=== PATIENT | female | born 1950 | race Caucasian/White ===

== ENCOUNTER 2018-01-25 11:56 | Emergency (ER) | payer MEDICARE, OTHER, SELFPAY ==
[2018-01-25 11:58] VITALS: BP 123/67; PULSE 58; RESP 20; TEMP 35.6; O2SAT 95; BMI 34.9
[2018-01-25 12:02] VITALS: PULSE 61; RESP 14
--- NOTE | 2018-01-25 12:13 | NURSING ---
NO LW OR POA
--- NOTE | 2018-01-25 12:22 | EKG12_ITS ---
Test Reason : DIZZINESS Blood Pressure : / mmHG Vent. Rate : 056 BPM Atrial Rate : 056 BPM P-R Int : 196 ms QRS Dur : 092 ms QT Int : 424 ms P-R-T Axes : 043 052 064 degrees QTc Int : 409 ms Sinus bradycardia Otherwise normal ECG Confirmed by DORIS DURAND, SERINA ([id number]), editor newspaper GREGG LAU ([id number]) on 01/26/2018 2:25:39 PM Referred By: DYAN Confirmed By:SERINA GEORGE MD
--- NOTE | 2018-01-25 12:22 | CT_ITS ---
STUDY: CT BRAIN WITHOUT CONTRAST REASON FOR EXAM: Female, 67 years old. Vertigo, dizziness, weak, nausea. 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 RADIATION DOSAGE (If Supplied By Facility): CTDIvol = ( 44.99 ) mGy, DLP = ( 745.49 ) mGycm TECHNIQUE: Transaxial CT imaging of the brain was performed without administration of intravenous contrast material. Individualized dose optimization techniques were used for this CT. COMPARISON: None. FINDINGS: Normal soft tissue structures. Normal calvarium. Normal size ventricles and extra-axial spaces for the patient's age. Normal white matter tracts of the cerebral hemispheres. Normal basal ganglia and thalami. Normal brainstem. Normal cerebellum. There is no intracranial hemorrhage. There are no findings of an acute ischemic infarction. Normal visualized paranasal sinuses. CT/Brain/Head without Contrast IMPRESSION: No acute intracranial abnormality Electronically Signed: Robinson Menjivar MD at 14:02 EDT Tel , Service support ,
[2018-01-25] MEDS: Meclizine 12.5 MG Tablet 50 MG PO (12:55)
[2018-01-25 13:11] LABS: Absolute Lymphocyte Count 2.15 X10^3/ul (0.83-4.51); Absolute Neutrophil Count 7.3 X10^3/uL (2.0-7.7); Basophil# 0.07 X10^3/uL; Basophil% 0.6 % (0-1); Eosinophil# 0.16 X10^3/uL; Eosinophils% 1.5 % (0-5); Hematocrit 36.3 % (37-47); Hemoglobin 12.4 g/dl (12.0-15.0); Lymphocyte # 2.15 X10^3/ul (4.0); Lymphocyte % 19.9 % (19-41); Mean Corp Hgb Conc 34.2 g/gl (32-36); Mean Corpuscular Hgb 29.5 pg (27.0-32.0); Mean Corpuscular Volume 86.4 fL (81-99); Mean Platelet Vol. 9.2 fl (6.2-12.0); Monocyte# 1.06 X10^3/uL; Monocyte% 9.8 % (0-10); Neutrophil # 7.34 X10^3/uL (2.7-7.7); Neutrophil % 67.9 % (47-70); POSITIVE COUNT NO; POSITIVE DIFFERENTIAL NO; POSITIVE MORPHOLOGY NO; Platelet Count 298 K/mm3 (150-450); RBC Distribution Width SD 40.3 fl (35.1-43.9); White Blood Count 10.8 K/mm3 (4.4-11.0)
[2018-01-25 13:23] LABS: Anion Gap 7 (5-15); BUN 20 mg/dL (7-18); BUN/Creat Ratio 17.7 RATIO (10-20); Calcium,Total 8.6 mg/dL (8.5-10.1); Chloride 98 mmol/L (98-107); Creatinine, Serum 1.13 mg/dL (0.55-1.02); EST Glomerular Filtration Rate 51 mL/min (>60); Est Glom Filt Rate - Afr Amer 61 mL/min (>60); Estimated Creatinine Clearance 35.46 ml/min; Glucose 98 mg/dL (74-106); Potassium 3.7 mmol/L (3.5-5.1); Sodium Level 134 mmol/L (136-145)
[2018-01-25 13:51] VITALS: BP 129/63; BP 138/70; BP 148/86; PULSE 64; PULSE 65; PULSE 71
--- NOTE | 2018-01-25 14:31 | ED.VISSUMM ---
- ER Visit Summary Date of Service: 01/25/18 Chief Complaint: Vertigo History of Present Illness: The patient is a [address] Jason Parker III. She reports that this morning she developed vertigo. She states that she is nauseated with it. She is not diaphoretic. She has not vomited. She denies any ringing or roaring in her ears. No change in her hearing. No ear pain. No slurred speech or double vision. Review of systems: General: No fever, chills, cold sweats. Cardiovascular: No chest pain, palpitations. Respiratory: No cough, shortness of breath, dyspnea on exertion. Gastrointestinal: No abdominal pain, vomiting, diarrhea, melena, or hematochezia. Genitourinary: No dysuria, frequency, hematuria. Skin: No rash. Neuro: No headache, numbness, weakness. Physical Examination: Vitals: Stable. Afebrile. General: Well-nourished and well-developed. Head: Normocephalic atraumatic. Neck: Supple, no lymphadenopathy. No JVD. Nontender. Cardiovascular: Regular rate and rhythm. No murmurs. Respiratory: No respiratory distress. Clear to auscultation bilaterally. Abdominal: Soft, nontender, nondistended, normal bowel sounds. No guarding, rebound, or peritoneal signs. Back: Nontender. Extremities: Nontender, no edema. Skin: Normal color, no rash. Neurologic: Alert and oriented ?3. Cranial nerves II through XII are intact. Normal strength and sensation. Mild nystagmus with gaze to the left. However, this does not give her vertiginous symptoms. Psych: Normal affect. Test Results: T brain is normal. EKG is sinus bradycardia 56 with no acute changes. CBC is marked for hematocrit of 36.3. Chem-7 is more for sodium 134, BUN 20, creatinine 1.13. Emergency Department Course and Treatment: Patient received Zofran by squad on the way in. She is given a dose of Antivert p.o. She had negative orthostatic vital signs. States that her vertigo is resolved and she been able to ambulate without difficulty. Treatment Plan: Patient will be discharged with Zofran and Antivert. Instructed to follow-up with Dr. Jason Parker III in 1-2 days if not improving. Return to the emergency department for any worsening symptoms. Disposition: To home in improved and stable condition. Impression: 1. Vertigo, resolved. This note was generated with [employer] dictation software. It may contain incorrect words, spelling, and punctuation that were not noted in review of the chart prior to signing ED Disposition - Plan for ED Patient: Disposition: Home or Assisted Living Chief Complaint: Dizziness Instructions: ED Dizziness UKO Prescriptions: Ondansetron [Zofran Odt] 4 mg PO Q8H PRN PRN #10 tablet PRN Reason: Nausea Meclizine HCl [Antivert] 25 mg PO 4X/DAY PRN PRN #20 tablet PRN Reason: Dizziness Referrals: Jason Parker III, MD [Primary Care Provider] - 1-2 Days if not improving
[2018-01-25 15:07] VITALS: BP 140/75; PULSE 72; RESP 14; O2SAT 98
== END 2018-01-25 15:11 | disposition home or self-care (01) ==
LOC: ED 13:05
PROVIDERS: Emergency Provider Emergency Medicine; Family Provider Family Medicine; PCP Family Medicine
DX: R42 Dizziness and giddiness (principal); I10 Essential (primary) hypertension; E03.9 Hypothyroidism, unspecified; Z79.82 Long term (current) use of aspirin; Z79.899 Other long term (current) drug therapy
CPT/HCPCS: 70450; 80048; 85025; 93005; 96360; 99285; J7040; A4216; J2405

== ENCOUNTER → 2018-06-05 09:24 | Outpatient (CLI) | payer MEDICARE, OTHER, SELFPAY ==
--- NOTE | 2018-06-05 10:00 | MRI_ITS ---
STUDY: MRI LEFT SHOULDER REASON FOR EXAM: Female, 68 years old. shoulder pain left shoulder,restricted movement, adhesive capsulitis TECHNIQUE: Standardized fat and water weighted pulse sequences were obtained in all 3 orthogonal planes. COMPARISON: None. FINDINGS: There is supraspinatus tendinosis with mild tendon thickening, but without a demonstrated tendon tear. Normal infraspinatus tendon. Normal subscapularis tendon. Normal teres minor tendon. Normal supraspinatus muscle. Normal infraspinatus muscle. Normal subscapularis muscle. Normal teres minor muscle. There is a small volume joint effusion of the glenohumeral joint with a small amount of debris. There is mild glenohumeral osteoarthritis. There is mild thickening of the inferior joint capsule consistent with adhesive capsulitis. There is a cortical erosion at the insertion of the subscapularis tendon. Normal biceps labral complex. Normal intracapsular long biceps tendon. Normal labrum. Normal rotator interval. There is mild osteoarthritis of the acromioclavicular articulation. There is a Type I morphology (flat undersurface), with a neutral orientation. There is no subacromial-subdeltoid bursal fluid. Normal visualized coracohumeral and coracoacromial ligaments. Normal quadrilateral space. Normal axillary space. Normal deltoid muscle. Normal trapezius muscle. MRI/Upper Ext Joint Only(Routine) IMPRESSION: There is mild thickening of the inferior joint capsule consistent with adhesive capsulitis. There is mild glenohumeral osteoarthritis and small joint effusion. There is mild supraspinatus tendinosis. Electronically Signed: Jenelle White MD at 11:51 EDT , Service support ,
== END ==
PROVIDERS: Family Provider Family Medicine; PCP Family Medicine
DX: M25.512 Pain in left shoulder (principal)
CPT/HCPCS: 73221

== ENCOUNTER 2018-07-06 09:03 | Emergency (ER) | payer MEDICARE, OTHER, SELFPAY ==
[2018-07-06 09:03] VITALS: BP 157/68; PULSE 76; RESP 16; TEMP 37; O2SAT 98; BMI 35.1
--- NOTE | 2018-07-06 09:31 | ED.DCSUM_ITS ---
- ER Visit Summary Date of Service: 07/06/18 Chief Complaint: Right-sided abdominal pain History of Present Illness: The patient is a 68 F with a one-week history of right upper quadrant abdominal pain. She denies nausea or vomiting. She denies shortness of breath. Patient states she leaned over a freezer approximately 4 weeks ago and felt a pop in her right lower ribs. Really had not been bothering her much until the past 1 week. Patient has had prior cholecystomy. She is history of diverticulitis, pancreatitis, cyst on her pancreas, hypertension, hypothyroidism. Physical Examination: Blood pressure is 157/68, other vitals normal. Patient sitting upright in bed. She is in no acute distress. Head and neck examination is unremarkable. Heart is regular rate and rhythm. Lung sounds are clear. She has reproducible tenderness in the right lower ribs. There is no crepitus. Abdomen is soft with tenderness in the right upper quadrant. There is no guarding or rebound. Active bowel sounds are noted throughout. Test Results: CBC and chemistry studies normal. LFTs and lipase are normal. Urinalysis is normal. Two-view chest x-ray shows no acute pathology. There is prominent hiatal hernia noted. There is mild anterior wedging of T5 down to T9 which may be related to remote injury. CT flank shows no evidence of bowel obstruction or acute renal pathology. Postcholecystectomy changes noted. Emergency Department Course and Treatment: Patient declines anything for pain here. She is given IV fluids. Test results were discussed with her. She is asking only for some naproxen at home. She will return for worsening symptoms or other concerns. Treatment Plan: [] Disposition: Discharge Impression: Abdominal pain, uncertain etiology This note was generated with [employer] dictation software. It may contain incorrect words, spelling, and punctuation that were not noted in review of the chart prior to signing ED Disposition - Plan for ED Patient: Chief Complaint: Abd Pain Referrals: Jason Parker III, MD [Primary Care Provider] -
[2018-07-06] MEDS: 0.9% Normal Saline 1,000 ML 150 ML IV (09:43)
[2018-07-06 09:58] LABS: Absolute Lymphocyte Count 2.02 X10^3/ul (0.83-4.51); Absolute Neutrophil Count 5.9 X10^3/uL (2.0-7.7); Basophil# 0.08 X10^3/uL; Basophil% 0.9 % (0-1); Eosinophil# 0.28 X10^3/uL; Eosinophils% 3.1 % (0-5); Hemoglobin 13.5 g/dl (12.0-15.0); Lymphocyte # 2.02 X10^3/ul (4.0); Lymphocyte % 22.6 % (19-41); Mean Corp Hgb Conc 32.9 g/gl (32-36); Mean Corpuscular Hgb 28.8 pg (27.0-32.0); Mean Corpuscular Volume 87.6 fL (81-99); Mean Platelet Vol. 9.5 fl (6.2-12.0); Monocyte# 0.64 X10^3/uL; Monocyte% 7.2 % (0-10); Neutrophil # 5.91 X10^3/uL (2.7-7.7); Platelet Count 329 K/mm3 (150-450); RBC Distribution Width CV 13.5 % (11.6-14.6); Red Blood Count 4.68 M/mm3 (4.2-5.4)
[2018-07-06 09:59] LABS: POSITIVE COUNT NO; POSITIVE DIFFERENTIAL NO; POSITIVE MORPHOLOGY NO
[2018-07-06 10:09] LABS: AST(SGOT) 17 U/L (15-37); Alanine Aminotransfer ALT/SGPT 26 U/L (13-56); Albumin, Serum 3.5 g/dL (3.2-5.0); Alkaline Phosphatase 120 U/L (45-117); Anion Gap 9 (5-15); BUN 11 mg/dL (7-18); BUN/Creat Ratio 11.2 RATIO (10-20); Bilirubin, Direct 0.08 mg/dL (0.00-0.30); Calcium,Total 8.5 mg/dL (8.5-10.1); Chloride 103 mmol/L (98-107); Creatinine, Serum 0.98 mg/dL (0.55-1.02); EST Glomerular Filtration Rate 60 mL/min (>60); Est Glom Filt Rate - Afr Amer 72 mL/min (>60); Estimated Creatinine Clearance 40.31 ml/min; Glucose 94 mg/dL (74-106); Lipase 136 U/L (73-393); Potassium 4.1 mmol/L (3.5-5.1); Protein, Total 7.5 g/dL (6.4-8.2); Sodium Level 139 mmol/L (136-145)
[2018-07-06 10:51] LABS: Bacteria 0 SEEN /hpf (None Seen); Mucous, Urine 0 SEEN /hpf (<or=2+); Red Blood Cells-Urine 0 SEEN /hpf (0-5)
[2018-07-06 10:52] LABS: Color, Urine Straw (Yellow); Glucose, Dipstick Normal (Normal); Ketone-Dipstick Negative (Negative); Leukocyte Esterase-Dipstick 500 /ul (Negative); Nitrite-Dipstick Negative (Negative); Occult Blood-Urine Negative /ul (Negative); Protein-Dipstick Negative (Negative); Specific Gravity, Urine 1.005 (1.002-1.030); Urine Bilirubin Dipstick Negative (Negative); Urine Clarity Clear (Clear); Urine Urobilinogen Normal (Normal)
[2018-07-06 11:02] LABS: Squamous Epithelial Cells - UA 0-5 SEEN /hpf (5-10); White Blood Cells 0-5 SEEN /hpf (0-5)
--- NOTE | 2018-07-06 12:23 | ED.DEP ---
ED Disposition - Plan for ED Patient: Disposition: Home or Assisted Living Chief Complaint: Abd Pain Instructions: ED Abdominal Pain Unkn Cause Prescriptions: Naproxen [Naprosyn] 500 mg PO BID PRN PRN #20 tablet PRN Reason: Pain Referrals: Jason Parker III, MD [Primary Care Provider] - 1-2 Weeks
[2018-07-06 12:41] VITALS: BP 134/73; PULSE 69; RESP 18; O2SAT 96
== END 2018-07-06 12:42 | disposition home or self-care (01) ==
PROVIDERS: Emergency Provider Emergency Medicine; Family Provider Family Medicine; PCP Family Medicine
DX: R10.11 Right upper quadrant pain (principal); I10 Essential (primary) hypertension; E03.9 Hypothyroidism, unspecified; K57.90 Diverticulosis of intestine, part unspecified, without perforation or abscess without bleeding; K86.2 Cyst of pancreas; Z79.82 Long term (current) use of aspirin; Z79.899 Other long term (current) drug therapy
CPT/HCPCS: 71046; 74176; 80048; 80076; 81001; 83690; 85025; 96360; 96361; 99283; J7030; A4216

== ENCOUNTER 2018-10-07 12:04 | Emergency (ER) | payer MEDICARE, OTHER, SELFPAY ==
[2018-10-07 12:05] VITALS: BP 137/75; PULSE 71; RESP 16; TEMP 36.7; O2SAT 96; BMI 34.4
--- NOTE | 2018-10-07 12:19 | CT_ITS ---
STUDY: CT ABDOMEN AND PELVIS WITH CONTRAST REASON FOR EXAM: Female, 68 years old. Lower quadrant pain and history of diverticulitis nausea and diarrhea hypertension pancreatitis CHF GERD previous cholecystectomy tubal ligation. RADIATION DOSAGE (If Supplied By Facility): CTDIvol = ( 18.24 ) mGy, DLP = ( 1150.90 ) mGycm TECHNIQUE: Transaxial images were obtained from the dome of the diaphragm to the symphysis pubis without oral contrast. 100 ml of Isovue 300 contrast was administered. Sagittal and coronal images were reconstructed. Individualized dose optimization techniques were used for this CT. COMPARISON: July 06, 2018 CT scan abdomen and pelvis FINDINGS: There is a right middle lobe nodule measuring 4.5 mm not definitively seen on the prior study. The visualized portions of the heart are within normal limits. There is decreased attenuation of the liver consistent with steatosis. In the medial aspect of the right hepatic lobe there is a stable focus of minimal low attenuation probable fatty infiltration. There is a focus of calcification as well. There is a low attenuation measures 6.8 and 7.4 mm respectively stable since prior study. There are surgical clips in the gallbladder fossa consistent with a prior cholecystectomy. There are multiple benign calcified granulomata of the spleen. Normal pancreas. Normal bilateral adrenal glands. Normal right kidney. Normal left kidney. There is a 6.0 x 6.4 cm I do hernia demonstrated stable since prior study. Normal small intestine. There is a [id number] amount of stool in the colon. There are diverticula present. Within the distal descending colon there is a 5.7 cm segment of inflammatory change which appears to be centered around a diverticulum within the distal descending colon. The appendix is visualized and appears normal. Normal abdominal aorta. Normal inferior vena cava. Normal retroperitoneum. There is calcification of the bilateral common iliac arteries. Normal urinary bladder. There is atrophy of the uterus. Normal abdominal wall. There are diffuse degenerative changes of the visualized lumbar spine. CT/Abdomen/Pelvis W IV Cont ONLY IMPRESSION: Acute diverticulitis over a 5.7 cm segment of the distal descending colon without evidence of abscess formation or pneumoperitoneum. Hepatic steatosis, stable mild inhomogeneity towards the lower aspect of the right hepatic lobe. Status post cholecystectomy. Evidence of a granulomatous disease. 4.5 mm nodular density right middle lobe for which a follow-up CT scan of the chest is recommended when appropriate. Electronically Signed: Richelle Romero MD at 14:33 EST Tel , Service support ,
--- NOTE | 2018-10-07 12:22 | ED.VISSUMM ---
- ER Visit Summary Date of Service: 10/07/18 Chief Complaint: Left lower quadrant abdominal pain. History of Present Illness: The patient is a 68 F history of diverticulitis in the past, hypertension and valvular heart disease. Prior cholecystectomy and tubal ligation. Patient states 1-1/2 weeks of left lower quadrant abdominal pain. She had some leftover amoxicillin at home and she has been taken 1 pill twice a day for the last 3 days and is noticing some improvement. She denies any vomiting. She did have diarrhea. She denies any constipation or melena. No fever. No dysuria. She denies any abdominal trauma. Physical Examination: Older female no acute distress. Vital signs are stable and afebrile. H EENT exam unremarkable. Neck nontender. Lungs clear to auscultation bilaterally. Heart regular rate and rhythm. Abdomen soft. Nondistended normal bowel sounds. She has mild tenderness in the left lower quadrant. No hernias or masses. Both the right upper right lower quadrant unremarkable. No signs of obstruction. No pulsatile mass. Patient moving all 4 extremities. Neurovascular intact. Neurologically she is awake and alert with no focal motor deficits. Back exam is nontender. Test Results: CBC normal white count of 9 hemoglobin at 12. No bands. Chemistries normal normal creatinine and gap. UA normal no signs of infection. CT abdomen pelvis with IV contrast only showed a five-point centimeter segment of the distal descending colon with acute diverticulitis. No perforation. No abscess. Read by the radiologist and reviewed by me. Emergency Department Course and Treatment: Patient's exam and history consistent with possible diverticulitis. Currently she does not want anything for pain or nausea. Higher to the CT she will receive a liter of normal saline. Treatment Plan: Repeat exam the patient is doing well at 15:07 PM. We discussed treatment options. She placed on Augmentin 875 twice daily for 10 days 20 no refill and follow-up with her primary care physician Dr. Jason Parker iii. She also be given a prescription for one Diflucan pill to take after she is done with the Augmentin because it causes her to get yeast infections. Disposition: Discharge Impression: Acute left lower quadrant abdominal pain secondary to acute left descending colon diverticulitis This note was generated with [employer] dictation software. It may contain incorrect words, spelling, and punctuation that were not noted in review of the chart prior to signing ED Disposition - Plan for ED Patient: Chief Complaint: Abd Pain Referrals: Jason Parker III, MD [Primary Care Provider] -
[2018-10-07] MEDS: 0.9% Normal Saline 1,000 ML 1000 ML IV (12:43)
[2018-10-07 12:49] LABS: Bacteria 0 SEEN /hpf (None Seen); Mucous, Urine 0 SEEN /hpf (<or=2+); Red Blood Cells-Urine 0 SEEN /hpf (0-5); White Blood Cells 0 SEEN /hpf (0-5)
[2018-10-07 12:51] LABS: Absolute Lymphocyte Count 2.23 X10^3/ul (0.83-4.51); Absolute Neutrophil Count 6.2 X10^3/uL (2.0-7.7); Basophil# 0.08 X10^3/uL; Basophil% 0.8 % (0-1); Eosinophil# 0.28 X10^3/uL; Eosinophils% 2.9 % (0-5); Hematocrit 37.9 % (37-47); Hemoglobin 12.4 g/dl (12.0-15.0); Lymphocyte # 2.23 X10^3/ul (4.0); Lymphocyte % 23.4 % (19-41); Mean Corp Hgb Conc 32.7 g/gl (32-36); Mean Corpuscular Hgb 28.6 pg (27.0-32.0); Mean Corpuscular Volume 87.5 fL (81-99); Mean Platelet Vol. 9.8 fl (6.2-12.0); Monocyte# 0.73 X10^3/uL; Monocyte% 7.7 % (0-10); Neutrophil # 6.19 X10^3/uL (2.7-7.7); Platelet Count 307 K/mm3 (150-450); RBC Distribution Width CV 13.4 % (11.6-14.6); RBC Distribution Width SD 42.6 fl (35.1-43.9); Red Blood Count 4.33 M/mm3 (4.2-5.4); White Blood Count 9.5 K/mm3 (4.4-11.0)
[2018-10-07 12:52] LABS: POSITIVE COUNT NO; POSITIVE DIFFERENTIAL NO; POSITIVE MORPHOLOGY NO
[2018-10-07 12:53] LABS: Color, Urine Yellow (Yellow); Glucose, Dipstick Normal (Normal); Ketone-Dipstick Negative (Negative); Leukocyte Esterase-Dipstick 100 /ul (Negative); Nitrite-Dipstick Negative (Negative); Occult Blood-Urine Negative /ul (Negative); Protein-Dipstick Negative (Negative); Specific Gravity, Urine 1.005 (1.002-1.030); Urine Bilirubin Dipstick Negative (Negative); Urine Clarity Clear (Clear); Urine Urobilinogen Normal (Normal)
[2018-10-07 13:00] LABS: Squamous Epithelial Cells - UA 0-5 SEEN /hpf (5-10)
[2018-10-07 13:03] LABS: Anion Gap 8 (5-15); BUN 15 mg/dL (7-18); Chloride 101 mmol/L (98-107); Creatinine, Serum 1.07 mg/dL (0.55-1.02); EST Glomerular Filtration Rate 54 mL/min (>60); Est Glom Filt Rate - Afr Amer 65 mL/min (>60); Estimated Creatinine Clearance 36.92 ml/min; Glucose 88 mg/dL (74-106); Potassium 4.4 mmol/L (3.5-5.1); Sodium Level 136 mmol/L (136-145)
--- NOTE | 2018-10-07 15:21 | ED.DEP ---
ED Disposition - Plan for ED Patient: Disposition: Home or Assisted Living Chief Complaint: Abd Pain Instructions: ED Diverticulitis Prescriptions: Amox/Clavulanate Tablet [Augmentin Tablet] 875 mg PO Q12H #20 tab Fluconazole [Diflucan] 200 mg PO DAILY #1 tab Referrals: Jason Parker III, MD [Primary Care Provider] - 3-5 Days Additional Instructions: Augmentin 1 pill twice a day for 10 days. Follow-up with Dr. Jason Parker sometimes after you keep you on antibiotics longer than 10 days. Tylenol and Motrin for pain.
[2018-10-07] MEDS: Amox/Clavulanate 875 MG Tablet PO (15:30)
[2018-10-07 15:31] VITALS: BP 148/68; PULSE 72; RESP 16; O2SAT 98
--- OUTSIDE RECORDS SUMMARY | 2018-11-30 23:26 | XMS RPT_ITS ---
:1950 Author Organization OHIP Care Team Providers Name Role Phone Cebul III, Erma Primary Care Unavailable Jono Trevino Attending Unavailable JAMIE CHAPMAN Attending Unavailable JAMIE CHAPMAN Referring Unavailable Cebul III, Erma Primary Care Unavailable JAMIE CHAPMAN Consulting Unavailable Cebul III, Erma Primary Care Unavailable Cyndi Carlos Attending Unavailable Cebul III, Erma Primary Care Unavailable Jordy Matute Attending Unavailable JJ ZHANG (HAIR OR BEAUTY SALON ASSISTANT) Attending Unavailable CEBUL III, ERMA A Attending Unavailable CEBUL III, ERMA A Referring Unavailable CEBUL III, ERMA A Referring Unavailable VAISHNAVI FERREIRA (EXPLOSIVE OPERATOR SUPERVISOR) Referring Unavailable CEBUL III, ERMA A Attending Unavailable CEBUL III, ERMA A Referring Unavailable RAYMON GUIDRY (PT) Attending Unavailable CEBUL III, ERMA A Referring Unavailable CEBUL III, ERMA A Referring Unavailable CEBUL III, ERMA A Referring Unavailable CHON BANKS Attending Unavailable CHON BANKS Referring Unavailable RAYMON GUIDRY (PT) Attending Unavailable CEBUL III, ERMA A Referring Unavailable RAYMON GUIDRY (PT) Attending Unavailable CEBUL III, ERMA A Referring Unavailable CEBUL III, ERMA A Attending Unavailable CODY PONCE Attending Unavailable CHON BANKS Attending Unavailable CHON BANKS Referring Unavailable CHON BANKS Attending Unavailable CHON BANKS Referring Unavailable ERMA PARKER Primary Care Unavailable CHON BANKS Attending Unavailable CHON BANKS Referring Unavailable ERMA PARKER Primary Care Unavailable PROBLEMS PROBLEMS DATE TYPE CONDITION / CODE ATTENDING STATUS SOURCE 09/05/2018 Active Encounter for NA Active [place] screening [facility] Main mammogram for [place] malignant neoplasm Repository of breast / Z12.31(ICD-10) 03/28/2018 Active Age-related NA Active [place] osteoporosis [facility] Main without current [place] pathological Repository fracture / M81.0(ICD-10) 03/22/2018 Active Other nursing home NA Active [place] (current) drug Clinic Main therapy / [place] Z79.899(ICD-10) Repository 03/22/2018 Active Cramp and spasm / NA [facility] R25.2(ICD-10) Clinic Main [place] Repository 01/08/2018 Active Chest pain, CHON BANKS Active [place] unspecified / E Clinic Other R07.9(ICD-10) [place] Repository 01/08/2018 Active Essential CHON BANKS Active [place] (primary) E Clinic Other hypertension / [place] I10(ICD-10) Repository 01/08/2018 Admitting Unknown / CHON BANKS Active [facility]Unknown[facility] Repository PROCEDURES PROCEDURES No Procedure Records FoundRESULTS RESULTS PROGRESS Observed: 10/19/2018 Status: COMPLETED Source: [place] 1:00 PM [facility] REPOSITORY HNO ID: [id number] Author: Cody Ponce Service: (none) Author Type: Physician Type: Progress Notes Filed: 10/19/2018 1:11 PM Note Text: Patient presents with: Derm Problem HPI: Patient presents today for office visit for follow up. Nursing Notes: Rachel Mcgraw Ma 10/19/2018 12:54 PM Unsigned DERM: Pt c/o of raw bottom after treatment for diverticulitis. For the last 3 days she has pain in buttock by the rectum. She has used preparation H, wet wipes(she makes sure she is dry afterwards), and A and D ointment. Also pt c/o itchy rectum at night only. Was being treated for diverticulitis. Had been to [facility] ER and placed on augmentin. Gave her diflucan. She is extremely sore. Spann to urinate. No changes in soaps or detergents. No abd pain. Bowels are formed now. No fever or chills. MEDICATIONS: Current Outpatient Prescriptions: amLODIPine (NORVASC) 5 mg tablet Take 1 tablet by mouth once daily. aspirin, enteric coated (ASPIRIN, ENTERIC COATED) 81 mg EC tablet Take 81 mg by mouth once daily. Biotin 2,500 mcg cap Take 1 capsule by mouth once daily. furosemide (LASIX) 40 mg tablet TAKE ONE-HALF TABLET BY MOUTH TWICE DAILY gabapentin (NEURONTIN) 300 mg capsule Take 1 capsule by mouth daily at bedtime for 90 days. isosorbide mononitrate ER (IMDUR) 30 mg 24 hr tablet Take 0.5 tablets by mouth once daily. labetalol (TRANDATE) 100 mg tablet Take 1 tablet by mouth twice daily. lactobacillus rhamnosus-Inulin (CULTURELLE PROBIOTICS) 10 billion cell -245 mg cpSP Take by mouth once daily. levothyroxine (SYNTHROID) 88 mcg tablet Take 1 tablet by mouth once daily. losartan (COZAAR) 100 mg tablet Take 1 tablet by mouth once daily. naproxen (NAPROSYN) 500 mg tablet Take 1 tablet by mouth twice daily as needed. Take with food. pantoprazole DR (PROTONIX) 40 mg tablet Take 1 tablet by mouth once daily. Take on empty stomach, 1/2 hr before meal. potassium chloride ER (K-DUR, KLOR-CON) 20 mEq tablet Take 1 tablet by mouth four times daily. alendronate (BINOSTO) 70 mg tbef 70 mg by mouth weekly, taken with full glass of water 30 min before first food/drink/med; avoid lying down for 30 min afterwards No current facility-administered medications for this visit. ALLERGIES: ALLERGIES Allergen Reactions - Codeine Intolerance Chest pain - Aceon [Perindopril * Rash, Cough - Beta Blockers [Othe* Cough dry hacking cough - Hctz [Other] Rash - Imdur [Isosorbide] Other: See Comments headaches - Lipitor [Atorvastat* Other: See Comments muscle cramps - Lisinopril Cough dry hacking cough - Spironolactone Other: See Comments headache PAST MEDICAL HISTORY Diagnosis Date - Contact dermatitis and other eczema - Degenerative arthritis of knee 05/24/2011 - Delayed gastric emptying 07/24/2012 - Diarrhea - Diverticulosis of colon (without mention of hemorrhage) Diverticulosis - Essential hypertension, benign - Hypokalemia 09/25/2012 - Impaired fasting glucose 11/19/2015 - Inadequate pelvic muscles 01/17/2012 - Lumbar disc disease with radiculopathy 09/01/2016 - Lung nodule < 6cm on CT 10/15/2018 10/07/18: incidental 4.5 mm nodule RML - thyrotoxicosis - Other osteoporosis 12/21/06 - Personal history of colonic polyps Colon polyps - Tethering of spinal cord (HCC) 2014 - Trigeminal neuralgia 10/11/2011 - Trochanteric bursitis of left hip 07/24/2012 - Unspecified hemorrhoids without mention of complication Hemorrhoids PAST SURGICAL HISTORY Procedure Laterality Date - COLONOSCOP W/ OR W/O BRSH SPEC Colonoscopy - COLONOSCOP W/ OR W/O BRSH SPEC 07/13/07 Lax colon - COLONOSCOP W/ OR W/O BRSH SPEC 03/26/14 Colonoscopy - DECOMPRESSION PLANTAR DIGITAL NERVE 2000 heel spur/ plantar fasciitis repair Rt - EGD W/O BRSH SPECIMEN W/BX 07/13/07 Gastritis, fundic gland polyps - EGD W/O OR W/BRUSH/WASH 03/26/14 EGD - LAPAROSCOPIC CHOLEYCYSTECTOMY Cholecystectomy, lap - LIGATE FALLOPIAN TUBE - REPAIR ROTATOR CUFF,ACUTE 1992 Rotator cuff repair, right - REVISE MEDIAN N/CARPAL TUNNEL SURG Carpal tunnel decomp bilateral - STRESS TEST,COMPLETE_*FL FAMILY HISTORY Problem Relation Age of Onset - Diabetes Mother - Heart Mother - Stroke Mother - Hypertension Mother - Hypertension Sister - Heart Sister - Hypertension Sister - Heart Sister - Hypertension Brother - Heart Brother - Hypertension Brother - Cancer Brother - Breast Cancer Maternal Aunt - Cancer Paternal Grandfather skin Social History Marital status: Spouse name: Morris Years of education: 10 Number of children: 2 Occupational History Occupation Employer Comment 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 Spouse was smoker in home for 39 years. Father smoked in childhood home. Alcohol use: No Drug use: No Sexual activity: No Comment: Tubal Ligation, Postmenopausal Other Topics Concern Sleep Concern Yes Stress Concern Yes Reviewed current medications, allergies, past medical history, surgical history, family history and social history today. REVIEW OF SYSTEMS All other reviewed and negative other than HPI. HEALTH MAINTENANCE: Reviewed health maintenance issues today and recommended the following in detail. DTAP,TDAP,TD(1 - Tdap) due on 1967 VITALS: BP 120/64 Pulse 64 Resp 16 Wt 82.6 kg (182 lb) BMI 34.39 kg/m? Last 4 Encounter Wt Readings: Date: Wt: 10/19/2018 82.6 kg (182 lb) 10/15/2018 83 kg (183 lb) 09/10/2018 83.6 kg (184 lb 6.4 oz) 07/12/2018 83 kg (183 lb) PHYSICAL EXAMINATION: General appearance: Well appearing, alert, in no acute distress, well-hydrated, well nourished. Skin: Skin color, texture, turgor normal, no suspicious rashes or lesions Lungs: lungs clear to auscultation. No wheezing, rhonchi, rales Heart: RRR without murmur, gallop, or rubs. No ectopy Abdomen: Normal abdominal exam, Abdomen soft, non-tender. Bowel sounds normal. No masses, organomegaly Extremities: No deformities, edema, skin discoloration, clubbing or cyanosis. Good capillary refill. Rectal: perineum examined with hydrographical technical officer. Has marked erythema throughout. Some slightly open areas. ASSESSMENT/PLAN: 1. Dermatitis - ICD9: 692.9, ICD10: L30.9 - discussed skin care of rash - follow up if symptoms persist or worsen. - Start with below. Red flags for re-assessment reviewed with patient in detail. - Call if symptoms worsen at all or if not better in one to two weeks - NYSTATIN-TRIAMCINOLONE 100,000 UNIT/G-0.1 % TOPICAL CREAM Cody Ponce MD CNOV Observed: 10/19/2018 Status: COMPLETED Source: [place] 12:40 PM [facility] REPOSITORY Office Visit (FAMPWS) ALBERTO STRICKLAND ([id number]) 1950 F Date Time Provider Department 10/19/18 12:40 PM CODY PONCE During your visit today, we recorded the following information about you: Pulse Respiration Blood pressure Weight 64/minute 16/minute 120/64 82.6 kg Rachel Mcgraw Dee 10/19/2018 1:02 PM Signed DERM: Pt c/o of raw bottom after treatment for diverticulitis. For the last 3 days she has pain in buttock by the rectum. She has used preparation H, wet wipes(she makes sure she is dry afterwards), and A and D ointment. Also pt c/o itchy rectum at night only. Cody Ponce MD 10/19/2018 1:11 PM Signed Patient presents with: Derm Problem HPI: Patient presents today for office visit for follow up. Nursing Notes: Rachel Mcgraw Dee 10/19/2018 12:54 PM Unsigned DERM: Pt c/o of raw bottom after treatment for diverticulitis. For the last 3 days she has pain in buttock by the rectum. She has used preparation H, wet wipes(she makes sure she is dry afterwards), and A and D ointment. Also pt c/o itchy rectum at night only. Was being treated for diverticulitis. Had been to [facility] ER and placed on augmentin. Gave her diflucan. She is extremely sore. Spann to urinate. No changes in soaps or detergents. No abd pain. Bowels are formed now. No fever or chills. MEDICATIONS: Current Outpatient Prescriptions: amLODIPine (NORVASC) 5 mg tablet Take 1 tablet by mouth once daily. aspirin, enteric coated (ASPIRIN, ENTERIC COATED) 81 mg EC tablet Take 81 mg by mouth once daily. Biotin 2,500 mcg cap Take 1 capsule by mouth once daily. furosemide (LASIX) 40 mg tablet TAKE ONE-HALF TABLET BY MOUTH TWICE DAILY gabapentin (NEURONTIN) 300 mg capsule Take 1 capsule by mouth daily at bedtime for 90 days. isosorbide mononitrate ER (IMDUR) 30 mg 24 hr tablet Take 0.5 tablets by mouth once daily. labetalol (TRANDATE) 100 mg tablet Take 1 tablet by mouth twice daily. lactobacillus rhamnosus-Inulin (CULTURELLE PROBIOTICS) 10 billion cell -245 mg cpSP Take by mouth once daily. levothyroxine (SYNTHROID) 88 mcg tablet Take 1 tablet by mouth once daily. losartan (COZAAR) 100 mg tablet Take 1 tablet by mouth once daily. naproxen (NAPROSYN) 500 mg tablet Take 1 tablet by mouth twice daily as needed. Take with food. pantoprazole DR (PROTONIX) 40 mg tablet Take 1 tablet by mouth once daily. Take on empty stomach, 1/2 hr before meal. potassium chloride ER (K-DUR, KLOR-CON) 20 mEq tablet Take 1 tablet by mouth four times daily. alendronate (BINOSTO) 70 mg tbef 70 mg by mouth weekly, taken with full glass of water 30 min before first food/drink/med; avoid lying down for 30 min afterwards No current facility-administered medications for this visit. ALLERGIES: ALLERGIES Allergen Reactions - Codeine Intolerance Chest pain - Aceon [Perindopril * Rash, Cough - Beta Blockers [Othe* Cough dry hacking cough - Hctz [Other] Rash - Imdur [Isosorbide] Other: See Comments headaches - Lipitor [Atorvastat* Other: See Comments muscle cramps - Lisinopril Cough dry hacking cough - Spironolactone Other: See Comments headache PAST MEDICAL HISTORY Diagnosis Date - Contact dermatitis and other eczema - Degenerative arthritis of knee 05/24/2011 - Delayed gastric emptying 07/24/2012 - Diarrhea - Diverticulosis of colon (without mention of hemorrhage) Diverticulosis - Essential hypertension, benign - Hypokalemia 09/25/2012 - Impaired fasting glucose 11/19/2015 - Inadequate pelvic muscles 01/17/2012 - Lumbar disc disease with radiculopathy 09/01/2016 - Lung nodule < 6cm on CT 10/15/2018 10/07/18: incidental 4.5 mm nodule RML - thyrotoxicosis - Other osteoporosis 12/21/06 - Personal history of colonic polyps Colon polyps - Tethering of spinal cord (HCC) 2014 - Trigeminal neuralgia 10/11/2011 - Trochanteric bursitis of left hip 07/24/2012 - Unspecified hemorrhoids without mention of complication Hemorrhoids PAST SURGICAL HISTORY Procedure Laterality Date - COLONOSCOP W/ OR W/O BRSH SPEC Colonoscopy - COLONOSCOP W/ OR W/O BRSH SPEC 07/13/07 Lax colon - COLONOSCOP W/ OR W/O BRSH SPEC 03/26/14 Colonoscopy - DECOMPRESSION PLANTAR DIGITAL NERVE 1999 heel spur/ plantar fasciitis repair Rt - EGD W/O BRSH SPECIMEN W/BX 07/13/07 Gastritis, fundic gland polyps - EGD W/O OR W/BRUSH/WASH 03/26/14 EGD - LAPAROSCOPIC CHOLEYCYSTECTOMY Cholecystectomy, lap - LIGATE FALLOPIAN TUBE - REPAIR ROTATOR CUFF,ACUTE 1991 Rotator cuff repair, right - REVISE MEDIAN N/CARPAL TUNNEL SURG Carpal tunnel decomp bilateral - STRESS TEST,COMPLETE_*FL FAMILY HISTORY Problem Relation Age of Onset - Diabetes Mother - Heart Mother - Stroke Mother - Hypertension Mother - Hypertension Sister - Heart Sister - Hypertension Sister - Heart Sister - Hypertension Brother - Heart Brother - Hypertension Brother - Cancer Brother - Breast Cancer Maternal Aunt - Cancer Paternal Grandfather skin Social History Marital status: Spouse name: Morris Years of education: 10 Number of children: 2 Occupational History Occupation Employer 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 Spouse was smoker in home for 39 years. Father smoked in childhood home. Alcohol use: No Drug use: No Sexual activity: No Comment: Tubal Ligation, Postmenopausal Other Topics Concern Sleep Concern Yes Stress Concern Yes Reviewed current medications, allergies, past medical history, surgical history, family history and social history today. REVIEW OF SYSTEMS All other reviewed and negative other than HPI. HEALTH MAINTENANCE: Reviewed health maintenance issues today and recommended the following in detail. DTAP,TDAP,TD(1 - Tdap) due on 1967 VITALS: BP 120/64 Pulse 64 Resp 16 Wt 82.6 kg (182 lb) BMI 34.39 kg/m? Last 4 Encounter Wt Readings: Date: Wt: 10/19/2018 82.6 kg (182 lb) 10/15/2018 83 kg (183 lb) 09/10/2018 83.6 kg (184 lb 6.4 oz) 07/12/2018 83 kg (183 lb) PHYSICAL EXAMINATION: General appearance: Well appearing, alert, in no acute distress, well-hydrated, well nourished. Skin: Skin color, texture, turgor normal, no suspicious rashes or lesions Lungs: lungs clear to auscultation. No wheezing, rhonchi, rales Heart: RRR without murmur, gallop, or rubs. No ectopy Abdomen: Normal abdominal exam, Abdomen soft, non-tender. Bowel sounds normal. No masses, organomegaly Extremities: No deformities, edema, skin discoloration, clubbing or cyanosis. Good capillary refill. Rectal: perineum examined with hydrographical technical officer. Has marked erythema throughout. Some slightly open areas. ASSESSMENT/PLAN: 1. Dermatitis - ICD9: 692.9, ICD10: L30.9 - discussed skin care of rash - follow up if symptoms persist or worsen. - Start with below. Red flags for re-assessment reviewed with patient in detail. - Call if symptoms worsen at all or if not better in one to two weeks - NYSTATIN-TRIAMCINOLONE 100,000 UNIT/G-0.1 % TOPICAL CREAM Cody Ponce MD Referring Provider: SELF [200] Allergies As of Date: 10/19/2018 Noted Allergy Reaction CODEINE 12/09/2009 5 - Intolerance Comments: Chest pain ACEON (PERINDOPRIL ERBUMINE) 11/02/2005 2 - Rash 3 - Cough beta blockers [Other] 10/07/2005 3 - Cough Comments: dry hacking cough hctz [Other] 10/07/2005 2 - Rash IMDUR (ISOSORBIDE) 03/06/2012 14 - Other: See Comments Comments: headaches LIPITOR (ATORVASTATIN CALCIUM) 10/21/2014 14 - Other: See Comments Comments: muscle cramps LISINOPRIL 10/07/2005 3 - Cough Comments: dry hacking cough SPIRONOLACTONE 03/21/2014 14 - Other: See Comments Comments: headache Date Reviewed: 10/19/2018 Reviewed by: Rachel Mcgraw Ma - Fully Assessed Reason for Visit: Derm Problem [33] Primary Visit Diagnosis:Dermatitis [L30.9] Order(s):nystatin-triamcinolone (MYCOLOG II) creamApply 1 application to affected area twice daily.Disp: 30 gRfl: 1 Prescriptions as of 10/19/2018 Sig: AMLODIPINE 5 MG TABLET Take 1 tablet by mouth once d* ASPIRIN 81 MG TABLET,DELAYED * Take 81 mg by mouth once ariane* BIOTIN 2,500 MCG CAPSULE Take 1 capsule by mouth once * FUROSEMIDE 40 MG TABLET TAKE ONE-HALF TABLET BY MOUTH* GABAPENTIN 300 MG CAPSULE Take 1 capsule by mouth daily* ISOSORBIDE MONONITRATE ER 30 * Take 0.5 tablets by mouth onc* LABETALOL 100 MG TABLET Take 1 tablet by mouth twice * LACTOBACIL RHAMNOSUS GG 10 BI* Take by mouth once daily. LEVOTHYROXINE 88 MCG TABLET Take 1 tablet by mouth once d* LOSARTAN 100 MG TABLET Take 1 tablet by mouth once d* NAPROXEN 500 MG TABLET Take 1 tablet by mouth twice * PANTOPRAZOLE 40 MG TABLET,DEL* Take 1 tablet by mouth once d* POTASSIUM CHLORIDE ER 20 MEQ * Take 1 tablet by mouth four t* ALENDRONATE 70 MG EFFERVESCEN* 70 mg by mouth weekly, taken * NYSTATIN-TRIAMCINOLONE 100,00* Apply 1 application to affect* Medication notes this encounter ALENDRONATE 70 MG EFFERVESCENT TABLET >> Rachel Mcgraw Ma 10/19/2018 12:50 PM >> RACHEL MCGRAW MA Oct 19, 2018 12:50 PM Not taking Problem List As Of Date 10/19/2018 Noted Resolved BENIGN HYPERTENSION [I10] More... More... PERS HX COLONIC POLYPS [Z86.010] More... 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] INVALID FOR* CERVICAL DISC DEGEN [M50.30] INVALID FOR* Degenerative arthritis of knee [M17.10] INVALID FOR* Trigeminal neuralgia [G50.0] INVALID FOR* Inadequate pelvic muscles [M62.9] INVALID FOR* Mixed stress and urge urinary incontinence [N39*INVALID FOR* Uterine prolapse [N81.4] INVALID FOR* Cystocele, midline [N81.11] INVALID FOR* Esophageal reflux [K21.9] INVALID FOR* Delayed gastric emptying [K30] INVALID FOR* Trochanteric bursitis of left hip [M70.62] INVALID FOR*10/15/2018 Hypokalemia [E87.6] INVALID FOR*10/15/2018 Thoracic radiculopathy due to degenerative join*INVALID FOR* Tethered spinal cord (HCC) [Q06.8] INVALID FOR* Abdominal pain [R10.9] INVALID FOR*09/01/2016 Poor sleep hygiene [Z72.821] INVALID FOR* Impaired fasting glucose [R73.01] INVALID FOR* Thoracic spine pain [M54.6] INVALID FOR* Lumbar disc disease with radiculopathy [M51.16] INVALID FOR* Venous insufficiency (chronic) (peripheral) [I8*INVALID FOR* Dysphagia, unspecified [R13.10] INVALID FOR* History of pancreatitis [Z87.19] INVALID FOR*10/15/2018 History of diverticulitis [Z87.19] INVALID FOR*10/15/2018 Elevated alkaline phosphatase level [R74.8] INVALID FOR* Chronic left shoulder pain [M25.512, G89.29] INVALID FOR* Lung nodule < 6cm on CT [R91.1] INVALID FOR* More... Visit Notes: >> Rachel Drake Diana MonOct 19, 2018 12:47 PM Status: Signed DERM: Pt c/o of raw bottom after treatment for diverticulitis. For the last 3 days she has pain in buttock by the rectum. She has used preparation H, wet wipes(she makes sure she is dry afterwards), and A and D ointment. Also pt c/o itchy rectum at night only. Prescriptions ordered this encounter Disp Refills Start End NYSTATIN-TRIAMCINOLONE 100,000 UNIT/* 30 g 1 10/19/2018 Route: TOPICAL Sig: Apply 1 application to affected area twice daily. Medications Discontinued During This Encounter temazepam (RESTORIL) 30 mg cap 30 c* 1 08/22/2017 10/19/2018 Class: Print RX Route: ORAL Sig: Take 1 capsule by mouth at bedtime as needed. FOR SLEEP. Disc: Discontinued by Patient Encounter Status:Closed by CODY PONCE MD on 10/19/18 PROGRESS Observed: 10/15/2018 Status: COMPLETED Source: [place] 4:41 PM [facility]INIC [facility] [place] REPOSITORY HNO ID: [id number] Author: Erma Parker III Service: (none) Author Type: Physician Type: Progress Notes Filed: 10/15/2018 7:57 PM Note Text: SUBJECTIVE: This is a 68 year old female that is here today for ER Follow Up. 10/07/18. ER records reviewed. LLQ pain of 1.5 wk duration. WBC 9 Hb12. GFR 54. Feeling better on day 8 of Augmentin. Some soft stool. No fever and has normal appetite. Some mild LLQ aching today CT abd: acute diverticulitis descending colon--no mass or perforation asymptomatic 4.5 mm nodule R middle lobe (incidental) hx of benign colon polyp 20 cm proximal to anus (sessile, benign) PAST MEDICAL HISTORY Diagnosis Date - Contact dermatitis and other eczema - Degenerative arthritis of knee 05/24/2011 - Delayed gastric emptying 07/24/2012 - Diarrhea - Diverticulosis of colon (without mention of hemorrhage) Diverticulosis - Essential hypertension, benign - Hypokalemia 09/25/2012 - Impaired fasting glucose 11/19/2015 - Inadequate pelvic muscles 01/17/2012 - Lumbar disc disease with radiculopathy 09/01/2016 - thyrotoxicosis - Other osteoporosis 12/21/06 - Personal history of colonic polyps Colon polyps - Tethering of spinal cord (HCC) 2014 - Trigeminal neuralgia 10/11/2011 - Trochanteric bursitis of left hip 07/24/2012 - Unspecified hemorrhoids without mention of complication Hemorrhoids Current Outpatient Prescriptions on File Prior to Visit: furosemide (LASIX) 40 mg tablet TAKE ONE-HALF TABLET BY MOUTH TWICE DAILY naproxen (NAPROSYN) 500 mg tablet Take 1 tablet by mouth twice daily as needed. Take with food. alendronate (BINOSTO) 70 mg tbef 70 mg by mouth weekly, taken with full glass of water 30 min before first food/drink/med; avoid lying down for 30 min afterwards potassium chloride ER (K-DUR, KLOR-CON) 20 mEq tablet Take 1 tablet by mouth four times daily. gabapentin (NEURONTIN) 300 mg capsule Take 1 capsule by mouth daily at bedtime for 90 days. levothyroxine (SYNTHROID) 88 mcg tablet Take 1 tablet by mouth once daily. losartan (COZAAR) 100 mg tablet Take 1 tablet by mouth once daily. labetalol (TRANDATE) 100 mg tablet Take 1 tablet by mouth twice daily. pantoprazole DR (PROTONIX) 40 mg tablet Take 1 tablet by mouth once daily. Take on empty stomach, 1/2 hr before meal. amLODIPine (NORVASC) 5 mg tablet Take 1 tablet by mouth once daily. isosorbide mononitrate ER (IMDUR) 30 mg 24 hr tablet Take 0.5 tablets by mouth once daily. temazepam (RESTORIL) 30 mg cap Take 1 capsule by mouth at bedtime as needed. FOR SLEEP. Biotin 2,500 mcg cap Take 1 capsule by mouth once daily. aspirin, enteric coated (ASPIRIN, ENTERIC COATED) 81 mg EC tablet Take 81 mg by mouth once daily. lactobacillus rhamnosus-Inulin (Movinary PROBIOTICS) 10 billion cell -245 mg cpSP Take by mouth once daily. No current facility-administered medications on file prior to visit. FAMILY HISTORY Problem Relation Age of Onset - Diabetes Mother - Heart Mother - Stroke Mother - Hypertension Mother - Hypertension Sister - Heart Sister - Hypertension Sister - Heart Sister - Hypertension Brother - Heart Brother - Hypertension Brother - Cancer Brother - Breast Cancer Maternal Aunt - Cancer Paternal Grandfather skin Social History Substance Use Topics - Smoking status: Former Smoker Packs/day: 0.10 Years: 1.00 Types: Cigarettes - Smokeless tobacco: Never Used Comment: Smoked 1 year or less in 1980s. Spouse was smoker in home for 39 years. Father smoked in childhood home. - Alcohol use No BP 130/67 Pulse 63 Resp 16 Wt 83 kg (183 lb) BMI 34.58 kg/m? . OBJECTIVE: APPEARANCE Well appearing, alert, in no acute distress, well-hydrated, well nourished. NECK Supple, no adenopathy; thyroid symmetric, normal size, no bruits HEART RRR with normal S1 and S2, no murmurs, no gallops, no JVD appreciated LUNG clear to auscultation ABDOMEN bowel sounds normoactive, no bruits, soft, non-tender, non-distended, without organomegaly or palpable masses, mild tenderness LLQ w/o mass, rigidity. ASSESSMENT: acute diverticulitis--improving asymptomatic 4.5 mm nodule R middle lobe (incidental) hx of benign colon polyp 20 cm proximal to anus (sessile, benign) PLAN: advance diet as tolerated finish the entire course of antibiotic same other medications CT chest in 6 mos Erma Parker III MD CNOV Observed: 10/15/2018 Status: COMPLETED Source: [place] 4:40 PM [facility] REPOSITORY Office Visit (FAMPWS) ALBERTO STRICKLAND ([id number]) 1950 F Date Time Provider Department 10/15/18 4:40 PM ERMA PARKER III During your visit today, we recorded the following information about you: Pulse Respiration Blood pressure Weight 63/minute 16/minute 130/67 83 kg Erma Parker III MD 10/15/2018 7:57 PM Signed SUBJECTIVE: This is a 68 year old female that is here today for ER Follow Up. 10/07/18. ER records reviewed. LLQ pain of 1.5 wk duration. WBC 9 Hb12. GFR 54. Feeling better on day 8 of Augmentin. Some soft stool. No fever and has normal appetite. Some mild LLQ aching today CT abd: acute diverticulitis descending colon--no mass or perforation asymptomatic 4.5 mm nodule R middle lobe (incidental) hx of benign colon polyp 20 cm proximal to anus (sessile, benign) PAST MEDICAL HISTORY Diagnosis Date - Contact dermatitis and other eczema - Degenerative arthritis of knee 05/24/2011 - Delayed gastric emptying 07/24/2012 - Diarrhea - Diverticulosis of colon (without mention of hemorrhage) Diverticulosis - Essential hypertension, benign - Hypokalemia 09/25/2012 - Impaired fasting glucose 11/19/2015 - Inadequate pelvic muscles 01/17/2012 - Lumbar disc disease with radiculopathy 09/01/2016 - thyrotoxicosis - Other osteoporosis 12/21/06 - Personal history of colonic polyps Colon polyps - Tethering of spinal cord (HCC) 2014 - Trigeminal neuralgia 10/11/2011 - Trochanteric bursitis of left hip 07/24/2012 - Unspecified hemorrhoids without mention of complication Hemorrhoids Current Outpatient Prescriptions on File Prior to Visit: furosemide (LASIX) 40 mg tablet TAKE ONE-HALF TABLET BY MOUTH TWICE DAILY naproxen (NAPROSYN) 500 mg tablet Take 1 tablet by mouth twice daily as needed. Take with food. alendronate (BINOSTO) 70 mg tbef 70 mg by mouth weekly, taken with full glass of water 30 min before first food/drink/med; avoid lying down for 30 min afterwards potassium chloride ER (K-DUR, KLOR-CON) 20 mEq tablet Take 1 tablet by mouth four times daily. gabapentin (NEURONTIN) 300 mg capsule Take 1 capsule by mouth daily at bedtime for 90 days. levothyroxine (SYNTHROID) 88 mcg tablet Take 1 tablet by mouth once daily. losartan (COZAAR) 100 mg tablet Take 1 tablet by mouth once daily. labetalol (TRANDATE) 100 mg tablet Take 1 tablet by mouth twice daily. pantoprazole DR (PROTONIX) 40 mg tablet Take 1 tablet by mouth once daily. Take on empty stomach, 1/2 hr before meal. amLODIPine (NORVASC) 5 mg tablet Take 1 tablet by mouth once daily. isosorbide mononitrate ER (IMDUR) 30 mg 24 hr tablet Take 0.5 tablets by mouth once daily. temazepam (RESTORIL) 30 mg cap Take 1 capsule by mouth at bedtime as needed. FOR SLEEP. Biotin 2,500 mcg cap Take 1 capsule by mouth once daily. aspirin, enteric coated (ASPIRIN, ENTERIC COATED) 81 mg EC tablet Take 81 mg by mouth once daily. lactobacillus rhamnosus-Inulin (CULTURELLE PROBIOTICS) 10 billion cell -245 mg cpSP Take by mouth once daily. No current facility-administered medications on file prior to visit. FAMILY HISTORY Problem Relation Age of Onset - Diabetes Mother - Heart Mother - Stroke Mother - Hypertension Mother - Hypertension Sister - Heart Sister - Hypertension Sister - Heart Sister - Hypertension Brother - Heart Brother - Hypertension Brother - Cancer Brother - Breast Cancer Maternal Aunt - Cancer Paternal Grandfather skin Social History Substance Use Topics - Smoking status: Former Smoker Packs/day: 0.10 Years: 1.00 Types: Cigarettes - Smokeless tobacco: Never Used Comment: Smoked 1 year or less in 1980s. Spouse was smoker in home for 39 years. Father smoked in childhood home. - Alcohol use No BP 130/67 Pulse 63 Resp 16 Wt 83 kg (183 lb) BMI 34.58 kg/m? . OBJECTIVE: APPEARANCE Well appearing, alert, in no acute distress, well- hydrated, well nourished. NECK Supple, no adenopathy; thyroid symmetric, normal size, no bruits HEART RRR with normal S1 and S2, no murmurs, no gallops, no JVD appreciated LUNG clear to auscultation ABDOMEN bowel sounds normoactive, no bruits, soft, non-tender, non-distended, without organomegaly or palpable masses, mild tenderness LLQ w/o mass, rigidity. ASSESSMENT: acute diverticulitis--improving asymptomatic 4.5 mm nodule R middle lobe (incidental) hx of benign colon polyp 20 cm proximal to anus (sessile, benign) PLAN: advance diet as tolerated finish the entire course of antibiotic same other medications CT chest in 6 mos SYDNI Otoole MD, III MD 10/15/2018 5:04 PM Signed PLAN: advance diet as tolerated finish the entire course of antibiotic same other medications CT chest in 6 mos Erma Parker III MD Referring Provider: SELF [[id number]] Allergies As of Date: 10/15/2018 Noted Allergy Reaction CODEINE 12/09/2009 5 - Intolerance Comments: Chest pain ACEON (PERINDOPRIL ERBUMINE) 11/02/2005 2 - Rash 3 - Cough beta blockers [Other] 10/07/2005 3 - Cough Comments: dry hacking cough hctz [Other] 10/07/2005 2 - Rash IMDUR (ISOSORBIDE) 03/06/2012 14 - Other: See Comments Comments: headaches LIPITOR (ATORVASTATIN CALCIUM) 10/21/2014 14 - Other: See Comments Comments: muscle cramps LISINOPRIL 10/07/2005 3 - Cough Comments: dry hacking cough SPIRONOLACTONE 03/21/2014 14 - Other: See Comments Comments: headache Date Reviewed: 10/15/2018 Reviewed by: Sandra ([facility]) DEE Lara - Fully Assessed Reason for Visit: [facility] ER follow up [Other] Primary Visit Diagnosis:Diverticulitis [K57.92] Other Visit Diagnoses: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 [M47.24] Postablative hypothyroidism [E89.0] Essential hypertension, benign [I10] Lung nodule < 6cm on CT [R91.1] Personal history of colonic polyps [Z86.010] Screening for nephropathy [Z13.89] Lung nodules [R91.8] Order(s):gabapentin (NEURONTIN) 300 mg capsuleTake 1 capsule by mouth daily at bedtime for 90 days.Disp: 90 capsuleRfl: 0 levothyroxine (SYNTHROID) 88 mcg tabletTake 1 tablet by mouth once daily.Disp: 90 tabletRfl: 3 losartan (COZAAR) 100 mg tabletTake 1 tablet by mouth once daily.Disp: 90 tabletRfl: 3 labetalol (TRANDATE) 100 mg tabletTake 1 tablet by mouth twice daily.Disp: 180 tabletRfl: [address] (PROTONIX) 40 mg tabletTake 1 tablet by mouth once daily. Take on empty stomach, 1/2 hr before meal.Disp: 90 tabletRfl: 3 amLODIPine (NORVASC) 5 mg tabletTake 1 tablet by mouth once daily.Disp: 90 tabletRfl: 3 isosorbide mononitrate ER (IMDUR) 30 mg 24 hr tabletTake 0.5 tablets by mouth once daily.Disp: 45 tabletRfl: 3 CREATININE BLD [SQCRET] Order #: [id number] FUTURE CT CHEST W IVCON [4030813] Order #: [id number] FUTURE iv contrast (will be provided with radiology test)CT Chest W -Inject, intravenously, once for 1 dose.No IV access, insert saline lock prior to the beginning of sedation, infusion, injection of imaging exam. Discontinue saline lock post exam. If Pt. has a central line or IVAD, may access for administration according to line specific nursing protocol. Once exam is complete flush line and de- access according to line specific nursing protocol in the CT contrast administration guidelines link.Disp: 1 EachRfl: 0 Prescriptions as of 10/15/2018 Sig: GABAPENTIN 300 MG CAPSULE Take 1 capsule by mouth daily* LEVOTHYROXINE 88 MCG TABLET Take 1 tablet by mouth once d* LOSARTAN 100 MG TABLET Take 1 tablet by mouth once d* LABETALOL 100 MG TABLET Take 1 tablet by mouth twice * PANTOPRAZOLE 40 MG TABLET,DEL* Take 1 tablet by mouth once d* AMLODIPINE 5 MG TABLET Take 1 tablet by mouth once d* ISOSORBIDE MONONITRATE ER 30 * Take 0.5 tablets by mouth onc* FUROSEMIDE 40 MG TABLET TAKE ONE-HALF TABLET BY MOUTH* NAPROXEN 500 MG TABLET Take 1 tablet by mouth twice * ALENDRONATE 70 MG EFFERVESCEN* 70 mg by mouth weekly, taken * POTASSIUM CHLORIDE ER 20 MEQ * Take 1 tablet by mouth four t* TEMAZEPAM 30 MG CAPSULE Take 1 capsule by mouth at be* BIOTIN 2,500 MCG CAPSULE Take 1 capsule by mouth once * ASPIRIN 81 MG TABLET,DELAYED * Take 81 mg by mouth once ariane* LACTOBACIL RHAMNOSUS GG 10 BI* Take by mouth once daily. IV CONTRAST (RADIOLOGY PROCED* CT Chest W -Inject, intraveno* Problem List As Of Date 10/15/2018 Noted Resolved BENIGN HYPERTENSION [I10] More... More... PERS HX COLONIC POLYPS [Z86.010] More... 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] INVALID FOR* CERVICAL DISC DEGEN [M50.30] INVALID FOR* Degenerative arthritis of knee [M17.10] INVALID FOR* Trigeminal neuralgia [G50.0] INVALID FOR* Inadequate pelvic muscles [M62.9] INVALID FOR* Mixed stress and urge urinary incontinence [N39*INVALID FOR* Uterine prolapse [N81.4] INVALID FOR* Cystocele, midline [N81.11] INVALID FOR* Esophageal reflux [K21.9] INVALID FOR* Delayed gastric emptying [K30] INVALID FOR* Trochanteric bursitis of left hip [M70.62] INVALID FOR*10/15/2018 Hypokalemia [E87.6] INVALID FOR*10/15/2018 Thoracic radiculopathy due to degenerative join*INVALID FOR* Tethered spinal cord (HCC) [Q06.8] INVALID FOR* Abdominal pain [R10.9] INVALID FOR*09/01/2016 Poor sleep hygiene [Z72.821] INVALID FOR* Impaired fasting glucose [R73.01] INVALID FOR* Thoracic spine pain [M54.6] INVALID FOR* Lumbar disc disease with radiculopathy [M51.16] INVALID FOR* Venous insufficiency (chronic) (peripheral) [I8*INVALID FOR* Dysphagia, unspecified [R13.10] INVALID FOR* History of pancreatitis [Z87.19] INVALID FOR*10/15/2018 History of diverticulitis [Z87.19] INVALID FOR*10/15/2018 Elevated alkaline phosphatase level [R74.8] INVALID FOR* Chronic left shoulder pain [M25.512, G89.29] INVALID FOR* Lung nodule < 6cm on CT [R91.1] INVALID FOR* More... Other instructions from your clinician: PLAN: advance diet as tolerated finish the entire course of antibiotic same other medications CT chest in 6 mos Erma Parker III MD Prescriptions ordered this encounter Disp Refills Start End GABAPENTIN 300 MG CAPSULE 90 c* 0 10/15/2018 01/13/2019 Class: Print RX Route: ORAL Sig: Take 1 capsule by mouth daily at bedtime for 90 days. LEVOTHYROXINE 88 MCG TABLET 90 t* 3 10/15/2018 Class: Print RX Route: ORAL Sig: Take 1 tablet by mouth once daily. LOSARTAN 100 MG TABLET 90 t* 3 10/15/2018 Class: Print RX Route: ORAL Sig: Take 1 tablet by mouth once daily. LABETALOL 100 MG TABLET 180 * 3 10/15/2018 Class: Print RX Route: ORAL Sig: Take 1 tablet by mouth twice daily. PANTOPRAZOLE 40 MG TABLET,DELAYED RE* 90 t* 3 10/15/2018 Class: Print RX Route: ORAL Sig: Take 1 tablet by mouth once daily. Take on empty stomach, 1/2 hr before meal. AMLODIPINE 5 MG TABLET 90 t* 3 10/15/2018 Class: Print RX Route: ORAL Sig: Take 1 tablet by mouth once daily. ISOSORBIDE MONONITRATE ER 30 MG TABL* 45 t* 3 10/15/2018 Class: Print RX Route: ORAL Sig: Take 0.5 tablets by mouth once daily. IV CONTRAST (RADIOLOGY PROCEDURE) 1 Ea* 0 10/15/2018 10/16/2018 Class: In Office Sig: CT Chest W -Inject, intravenously, once for 1 dose.No IV access, insert saline lock prior to the beginning of sedation, infusion, injection of imaging exam. Discontinue saline lock post exam. If Pt. has a central line or IVAD, may access for administration according to line specific nursing protocol. Once exam is complete flush line and de-access according to line specific nursing protocol in the CT contrast administration guidelines link. Medications Discontinued During This Encounter gabapentin (NEURONTIN) 300 mg capsule 90 c* 1 03/22/2018 10/15/2018 Route: ORAL Sig: Take 1 capsule by mouth daily at bedtime for 90 days. Disc: Reason for discontinue is not on file. levothyroxine (SYNTHROID) 88 mcg tab* 90 t* 3 10/31/2017 10/15/2018 Route: ORAL Sig: Take 1 tablet by mouth once daily. Disc: Reason for discontinue is not on file. losartan (COZAAR) 100 mg tablet 90 t* 3 10/31/2017 10/15/2018 Route: ORAL Sig: Take 1 tablet by mouth once daily. Disc: Reason for discontinue is not on file. labetalol (TRANDATE) 100 mg tablet 180 * 3 10/31/2017 10/15/2018 Route: ORAL Sig: Take 1 tablet by mouth twice daily. Disc: Reason for discontinue is not on file. pantoprazole DR (PROTONIX) 40 mg tab* 90 t* 3 10/31/2017 10/15/2018 Route: ORAL Sig: Take 1 tablet by mouth once daily. Take on empty stomach, 1/2 hr before meal. Disc: Reason for discontinue is not on file. amLODIPine (NORVASC) 5 mg tablet 270 * 3 10/31/2017 10/15/2018 Route: ORAL Sig: Take 1 tablet by mouth once daily. Disc: Reason for discontinue is not on file. isosorbide mononitrate ER (IMDUR) 30* 30 t* 6 10/31/2017 10/15/2018 Route: ORAL Sig: Take 0.5 tablets by mouth once daily. Disc: Reason for discontinue is not on file. Encounter Status:Closed by ERMA PARKER III, MD on 10/15/18 DISCHARGE INSTRUCTION Observed: 10/07/2018 Status: F Source: [place] 4:37 PM [facility] REPOSITORY [facility] Medical Records Department [address] [place] [address] Discharge Instruction 10/07/18 1521 MR#: [id number] Acct: [id number] Name: ALBERTO STRICKLAND Rep #: [id number] : 1950 68 From: Jordy Matute MD PCP: Erma Parker III, MD Status: DEP ER ED Disposition - Plan for ED Patient: Disposition: Home or Assisted Living Chief Complaint: Abd Pain Instructions: ED Diverticulitis Prescriptions: Amox/Clavulanate Tablet [Augmentin Tablet] 875 mg PO Q12H #20 tab Fluconazole [Diflucan] 200 mg PO DAILY #1 tab Referrals: Erma Parker III, MD [Primary Care Provider] - 3-5 Days Additional Instructions: Augmentin 1 pill twice a day for 10 days. Follow-up with Dr. Erma Parker sometimes after you keep you on antibiotics longer than 10 days. Tylenol and Motrin for pain. What to do if you have Problems For any increased pain, shortness of breath, bleeding, nausea or vomiting, chest pain, or any unexpected problems, contact your Primary Care Provider. Call [facility] ([phone]) or report to the closest Emergency Room. Call 911 if necessary. 10/07/18 1637 <Electronically signed by Jordy Matute MD> Date Jordy Matute MD Cosigner Signature (If Indicated): Date CC: Erma Parker III, MD EMERGENCY DEPARTMENT Observed: 10/07/2018 Status: F Source: [place] SUMMARY 4:37 PM [facility] REPOSITORY [facility] Medical Records Department [address] [place] [id number] Emergency Department Summary 10/07/18 1222 MR#: [id number] Acct: [id number] Name: ALBERTO STRICKLAND Rep #: [id number] : 1950 68 From: Jordy Matute MD PCP: Erma Parker III, MD Status: DEP ER - ER Visit Summary Date of Service: 10/07/18 Chief Complaint: Left lower quadrant abdominal pain. History of Present Illness: The patient is a 68 F history of diverticulitis in the past, hypertension and valvular heart disease. Prior cholecystectomy and tubal ligation. Patient states 1-1/2 weeks of left lower quadrant abdominal pain. She had some leftover amoxicillin at home and she has been taken 1 pill twice a day for the last 3 days and is noticing some improvement. She denies any vomiting. She did have diarrhea. She denies any constipation or melena. No fever. No dysuria. She denies any abdominal trauma. Physical Examination: Older female no acute distress. Vital signs are stable and afebrile. H EENT exam unremarkable. Neck nontender. Lungs clear to auscultation bilaterally. Heart regular rate and rhythm. Abdomen soft. Nondistended normal bowel sounds. She has mild tenderness in the left lower quadrant. No hernias or masses. Both the right upper right lower quadrant unremarkable. No signs of obstruction. No pulsatile mass. Patient moving all 4 extremities. Neurovascular intact. Neurologically she is awake and alert with no focal motor deficits. Back exam is nontender. Test Results: CBC normal white count of 9 hemoglobin at 12. No bands. Chemistries normal normal creatinine and gap. UA normal no signs of infection. CT abdomen pelvis with IV contrast only showed a five-point centimeter segment of the distal descending colon with acute diverticulitis. No perforation. No abscess. Read by the radiologist and reviewed by me. Emergency Department Course and Treatment: Patient's exam and history consistent with possible diverticulitis. Currently she does not want anything for pain or nausea. Higher to the CT she will receive a liter of normal saline. Treatment Plan: Repeat exam the patient is doing well at 15:07 PM. We discussed treatment options. She placed on Augmentin 875 twice daily for 10 days 20 no refill and follow-up with her primary care physician Dr. Erma Parker iii. She also be given a prescription for one Diflucan pill to take after she is done with the Augmentin because it causes her to get yeast infections. Disposition: Discharge Impression: Acute left lower quadrant abdominal pain secondary to acute left descending colon diverticulitis This note was generated with Pan[employer] dictation software. It may contain incorrect words, spelling, and punctuation that were not noted in review of the chart prior to signing ED Disposition - Plan for ED Patient: Chief Complaint: Abd Pain Referrals: Erma Parker III, MD [Primary Care Provider] - What to do if you have Problems For any increased pain, shortness of breath, bleeding, nausea or vomiting, chest pain, or any unexpected problems, contact your Primary Care Provider. Call [facility] ([phone]) or report to the closest Emergency Room. Call 911 if necessary. 10/07/18 2637 <Electronically signed by Jordy Matute MD> Date Jordy Matute MD Cosigner Signature (If Indicated): Date CC: Erma Parker III, MD CBC W/DIFF, AUTOMATED Collected: 10/07/2018 Status: F Source: [place] 12:40 PM [facility] REPOSITORY TYPE CODE TESTS RESULT OUT OF RANGE REFERENCE UNITS LAB L100.1000 4.4-11.0 K/mm3 Normal WBC 9.5 LAB L100.1200 4.2-5.4 M/mm3 Normal RBC 4.33 LAB L100.1300 12.0-15.0 g/dl Normal HGB 12.4 LAB L100.1400 37-47 % Normal HCT 37.9 LAB L100.1500 81-99 fL Normal MCV 87.5 LAB L100.1600 27.0-32.0 pg Normal MCH 28.6 LAB L100.1700 32-36 g/gl Normal MCHC 32.7 LAB L100.1810 11.6-14.6 % Normal RDW CV 13.4 LAB L100.1820 35.1-43.9 fl Normal RDW SD 42.6 LAB L100.1900 150-450 K/mm3 Normal PLT 307 LAB L100.2000 6.2-12.0 fl Normal MPV 9.8 LAB L100.2100 47-70 % Normal NEUT% 65.0 LAB L100.2200 19-41 % Normal LY% 23.4 LAB L100.2300 0-10 % Normal MONO% 7.7 LAB L100.2400 0-5 % Normal EO% 2.9 LAB L100.2500 0-1 % Normal BASO% 0.8 LAB L100.2550 0.0-0.9 % Normal IM GRAN % 0.200 Result Comment: IG% - Immature Granulocytes (promyelocytes, myelocytes and metamyelocytes) > 1% indicates that a LEFT SHIFT is Present. LAB L100.2620 2.0-7.7 X10 3/uL Normal Absolute Neut 6.2 LAB L100.2720 0.83-4.51 X10 3/ul Normal Absolute Lymph 2.23 Performed By: #### L100.0100 #### [facility] [address] [place], [place], [id number] URINALYSIS, COMPLETE Collected: 10/07/2018 Status: F Source: [place] 12:40 PM [facility] REPOSITORY Order Comment: How was Urine Obtained? FORESTRY ENGINEER TO SPECIFY TYPE CODE TESTS RESULT OUT OF RANGE REFERENCE UNITS LAB L400.3000 Yellow COLOR Normal Yellow LAB L400.3050 Clear Normal CLARITY Clear LAB L400.3200 Normal mg/dl Normal GLUCOSE, UR Normal LAB L400.3300 Negative mg/dL Normal BILIRUBIN URINE Negative LAB L400.3400 Negative mg/dl Normal KETONE UR Negative LAB L400.3465 1.002-1.030 Normal SP.GR. DIPSTX 1.005 LAB L400.3550 5.0 - 8.0 pH UR Normal 7.0 LAB L400.3600 Negative mg/dl PROT Normal DIPSTX Negative LAB L400.3700 Normal mg/dl Normal UROBILI Normal LAB L400.3750 Negative Normal NITRITE UR Negative LAB L400.3780 Negative /ul Normal OCCULT BLOOD-UR Negative LAB L400.3800 Negative /ul High LEUK ESTERASE 100 LAB L400.4050 0-5 /hpf WBC 0 Normal SEEN LAB L400.4100 0-5 /hpf 0 Normal RBC-UA SEEN LAB L400.4150 5-10 /hpf SQUAM Normal EPI 0-5 SEEN LAB L400.4300 None Seen /hpf 0 Normal BACTERIA SEEN LAB L400.4350 <or=2+ /hpf 0 Normal MUCUS, URINE SEEN Performed By: #### L400.0001 #### [facility] [address] [place], [place], [id number] BASIC METABOLIC Collected: 10/07/2018 Status: F Source: [place] PROFILE (BMP) 12:40 PM [facility] REPOSITORY TYPE CODE TESTS RESULT OUT OF RANGE REFERENCE UNITS LAB L501.0100 74-106 mg/dL Normal GLU 88 Result Comment: Please note revised GLUCOSE reference range effective 2017. LAB L501.1000 7-18 mg/dL Normal BUN 15 LAB L501.1100 0.55-1.02 mg/dL High CREAT,SERUM 1.07 Result Comment: The validity of the calculated GFR AND GFRAA in patients over 70 years has not been determined. Clinical correlation is essential. LAB L501.1110 >60 mL/min Low EST GFR 54 Result Comment: Non- GFR Calc LAB L501.1115 >60 mL/min Normal EST GFR - AA 65 Result Comment: GFR Calc LAB L501.1255 ml/min Normal Estimated CRCL 36.92 LAB L501.1300 10-20 RATIO Normal BUN/CRE 14.0 LAB L501.2200 8.5-10 mg/dL Normal .1 CA 9.0 LAB L501.5300 136-14 mmol/L Normal 5 NA 136 LAB L501.5600 3.5-5. mmol/L Normal 1 K 4.4 LAB L501.5900 98-107 mmol/L Normal CL 101 LAB L501.6100 21.0-3 mmol/L Normal 2.0 CO2 27.0 LAB L501.6200 5-15 Normal GAP 8 Performed By: #### L500.2500 #### [facility] [address] [facility] [address] [place], [address] ABDOMEN/PELVIS W IV CONT Observed: 10/07/2018 Status: F Source: [place] ONLY 12:22 PM [facility] REPOSITORY [facility] Imaging Services [address] [place] [address] Abdomen/Pelvis W IV Cont ONLY MR#: [id number] Acct: [id number] Name: ALBERTO STRICKLAND Rep #: [id number] : 1950 F 68 From: Richelle Romero MD PCP: Erma Parker III, MD Status: REG ER Study: Abdomen/Pelvis W IV Cont ONLY Date of Exam: 10/07/18 Exam# [id number] Ordering Dr: Jordy Matute MD STUDY: CT ABDOMEN AND PELVIS WITH CONTRAST REASON FOR EXAM: Female, 68 years old. Lower quadrant pain and history of diverticulitis nausea and diarrhea hypertension pancreatitis CHF GERD previous cholecystectomy tubal ligation. RADIATION DOSAGE (If Supplied By Facility): CTDIvol = ( 18.24 ) mGy, DLP = ( 1150.90 ) mGycm TECHNIQUE: Transaxial images were obtained from the dome of the diaphragm to the symphysis pubis without oral contrast. 100 ml of Isovue 300 contrast was administered. Sagittal and coronal images were reconstructed. Individualized dose optimization techniques were used for this CT. COMPARISON: July 06, 2018 CT scan abdomen and pelvis FINDINGS: There is a right middle lobe nodule measuring 4.5 mm not definitively seen on the prior study. The visualized portions of the heart are within normal limits. There is decreased attenuation of the liver consistent with steatosis. In the medial aspect of the right hepatic lobe there is a stable focus of minimal low attenuation probable fatty infiltration. There is a focus of calcification as well. There is a low attenuation measures 6.8 and 7.4 mm respectively stable since prior study. There are surgical clips in the gallbladder fossa consistent with a prior cholecystectomy. There are multiple benign calcified granulomata of the spleen. Normal pancreas. Normal bilateral adrenal glands. Normal right kidney. Normal left kidney. There is a 6.0 x 6.4 cm I do hernia demonstrated stable since prior study. Normal small intestine. There is a [id number] amount of stool in the colon. There are diverticula present. Within the distal descending colon there is a 5.7 cm segment of inflammatory change which appears to be centered around a diverticulum within the distal descending colon. The appendix is visualized and appears normal. Normal abdominal aorta. Normal inferior vena cava. Normal retroperitoneum. There is calcification of the bilateral common iliac arteries. Normal urinary bladder. There is atrophy of the uterus. Normal abdominal wall. There are diffuse degenerative changes of the visualized lumbar spine. CT/Abdomen/Pelvis W IV Cont ONLY IMPRESSION: Acute diverticulitis over a 5.7 cm segment of the distal descending colon without evidence of abscess formation or pneumoperitoneum. Hepatic steatosis, stable mild inhomogeneity towards the lower aspect of the right hepatic lobe. Status post cholecystectomy. Evidence of a granulomatous disease. 4.5 mm nodular density right middle lobe for which a follow- up CT scan of the chest is recommended when appropriate. Electronically Signed: Richelle Romero MD at 14:33 EST Tel , Service support , CC: Erma Parker III, MD; Jordy Matute MD [employer] Operator: Signed PROGRESS Observed: 09/26/2018 Status: COMPLETED Source: [place] 1:16 PM [facility] REPOSITORY O ID: [id number] Author: Raymon (Pt) Chao Service: (none) Author Type: Physical Therapist Type: Progress Notes Filed: 09/26/2018 1:36 PM Note Text: Episode Visit Count: 4 Therapist That Will Oversee The Plan Of Care: Raymon Guidry Start of Care Date: 08/28/18 Onset Date: 04/28/18 Plan of Care Certification Date: 08/28/18 REHABILITATION AND SPORTS THERAPY PHYSICAL THERAPY DISCONTINUANCE OF CARE PLAN OF CARE UPDATE: Assessment: Alberto Strickland is discontinued from Physical Therapy services due to maximal benefit.. Patient was seen for 4 visits from Start of Care Date: 08/28/18 to 09/26/2018 and treatment included: Therapeutic exercise, Manual therapy, Self-half-way management and Patient/Family/Caregiver Education. Patient has seen no change in her pain or function since beginning therapy and will be referred back to her pcp. She is unlikely to benefit from further skilled care having seen no progress in 1 month of therapy and consistently performing HEP. Goals for Episode of Care: created on 08/28/18 through 10/31/18 [place] in home exercise program. Met Patient will decrease pain rating by 2 points to meet minimal clinical important difference for numeric pain rating scale. Not met Patient will increase active ROM of left shoulder and neck to WNL in all ranges to allow pt to to achieve neutral postural alignment and improved performance of ADLs. Not met Patient will increase strength of left shoulder to 5/5 to allow for return to prior functional status and perform ADLs. Not met Perform reaching, lifting, and pulling without pain. Not met Demonstrate improvement on functional score: Patient will improve his/her AM-PAC T-scale score by 4 points to indicate a Minimal Clinical Important Difference . Not met G CODE REPORTING Based on clinical assessment and the score on the AM-PAC Scale Score Assessment Tool, the G code and corresponding severity modifiers are documented below. Evaluation: 08/31/2018 Current Status: Carrying, Moving and Handling Objects: G8984 CJ 20-39% impaired Goal Status: Carrying, Moving and Handling Objects: G8985 CI 1-19% Impaired Discharge: 09/26/2018 Goal Status: Carrying, Moving and Handling Objects: G8985 CI 1-19% impaired Discharge: Carrying, Moving and Handling Objects: G8986 CI 1-19% impaired SUBJECTIVE: Pt has not seen any progress since starting therapy. Her shoulder still hurts just the same. Reaching, pulling, lifting, self care like washing hair, reaching behind back and anything to shoulder height or above all cause her pain. She has been faithful with HEP, but this has not helped- even the massage. Pain Score: 6/10 Pain Location: Shoulder - Left Description: Sharp;Aching Frequency: Continuous OBJECTIVE MEASURES WITH LEVEL OF FUNCTION: Cervical Spine AROM Cervical AROM determined by: Limitation Cervical Flexion: Normal Cervical Extension: Increased pain;Moderate limitation Cervical Side-Bend Right: Normal Cervical Side-Bend Left: Increased pain;Minimal limitation Cervical Rotation Right: Normal Cervical Rotation Left: Increased pain;Moderate limitataion UE PROM R UE PROM: WNL L UE PROM: WFL (Painful arc and less than right, but WFL) UE and Cervical Strength Strength Tested: Shoulder All R Shoulder Shrug (C4): 5/5 R Shoulder Extension: 5/5 R Shoulder Flexion: 5/5 R Shoulder Abduction (C5): 5/5 R Shoulder Internal Rotation: 5/5 R Shoulder External Rotation: 5/5 L Shoulder Extension: 5/5 L Shoulder Flexion: 4+/5 L Shoulder Abduction (C5): 4+/5 L Shoulder Internal Rotation: 5/5 L Shoulder External Rotation: 4/5 TREATMENT: Therapeutic Exercise: 1: Upper trap stretch 2x30 sec/side with instruction to stay in pain free range. 2: Levator stretch 2x30 sec/side with instruction to stay in pain free range. 3: Seated scapular retractions 2x10 with instruction to stay in pain free range. 4: Left shoulder kathy AAROM flexion and scaption 2x10. 5: *Left wand AAROM flexion and abduction 2x10. Skilled Intervention: Patient was educated in proper exercise technique and purpose for exercises. Skilled judgment was provided in selection of appropriate interventions. Patient educated to continue above exercises Billing: [facility]: Therapeutic Exercise (07991): 1:1 time: 12 minutes (1 unit: 8-22 mins) Total time: 12 minutes Raymon Guidry PT CNTHERAPY Observed: 09/26/2018 Status: COMPLETED Source: [place] 1:00 PM [facility] REPOSITORY OT/PT/Speech Visit (PTWS) ALBERTO STRICKLAND ([id number]) 1950 F Date Time Provider Department 09/26/18 1:00 PM RAYMON GUIDRY (PT) PTWS Date Time Provider Department Center 09/26/2018 1:00 PM [id number], SEAN (PT)PTWS [facility] Reason for Visit: PT Discharge [752] Physical Therapy [503] Primary Visit Diagnosis:Chronic left shoulder pain [M25.512, G89.29] Other Visit Diagnosis:Neck pain [M54.2] Allergies As of Date: 09/26/2018 Noted Allergy Reaction CODEINE 12/09/2009 5 - Intolerance Comments: Chest pain ACEON (PERINDOPRIL ERBUMINE) 11/02/2005 2 - Rash 3 - Cough beta blockers [Other] 10/07/2005 3 - Cough Comments: dry hacking cough hctz [Other] 10/07/2005 2 - Rash IMDUR (ISOSORBIDE) 03/06/2012 14 - Other: See Comments Comments: headaches LIPITOR (ATORVASTATIN CALCIUM) 10/21/2014 14 - Other: See Comments Comments: muscle cramps LISINOPRIL 10/07/2005 3 - Cough Comments: dry hacking cough SPIRONOLACTONE 03/21/2014 14 - Other: See Comments Comments: headache Date Reviewed: 09/10/2018 Reviewed by: Katie Bella RN - Fully Assessed Prescriptions as of 09/26/2018 Sig: FUROSEMIDE 40 MG TABLET TAKE ONE-HALF TABLET BY MOUTH* NAPROXEN 500 MG TABLET Take 1 tablet by mouth twice * ALENDRONATE 70 MG EFFERVESCEN* 70 mg by mouth weekly, taken * POTASSIUM CHLORIDE ER 20 MEQ * Take 1 tablet by mouth four t* GABAPENTIN 300 MG CAPSULE Take 1 capsule by mouth daily* LEVOTHYROXINE 88 MCG TABLET Take 1 tablet by mouth once d* LOSARTAN 100 MG TABLET Take 1 tablet by mouth once d* LABETALOL 100 MG TABLET Take 1 tablet by mouth twice * PANTOPRAZOLE 40 MG TABLET,DEL* Take 1 tablet by mouth once d* AMLODIPINE 5 MG TABLET Take 1 tablet by mouth once d* ISOSORBIDE MONONITRATE ER 30 * Take 0.5 tablets by mouth onc* TEMAZEPAM 30 MG CAPSULE Take 1 capsule by mouth at be* BIOTIN 2,500 MCG CAPSULE Take 1 capsule by mouth once * ASPIRIN 81 MG TABLET,DELAYED * Take 81 mg by mouth once ariane* LACTOBACIL RHAMNOSUS GG 10 BI* Take by mouth once daily. Progress Notes: Raymon Guidry, PT 09/26/2018 1:36 PM Signed Episode Visit Count: 4 Therapist That Will Oversee The Plan Of Care: Raymon Guidry Start of Care Date: 08/28/18 Onset Date: 04/28/18 Plan of Care Certification Date: 08/28/18 REHABILITATION AND SPORTS THERAPY PHYSICAL THERAPY DISCONTINUANCE OF CARE PLAN OF CARE UPDATE: Assessment: Alberto Strickland is discontinued from Physical Therapy services due to maximal benefit.. Patient was seen for 4 visits from Start of Care Date: 08/28/18 to 09/26/2018 and treatment included: Therapeutic exercise, Manual therapy, Self-half-way management and Patient/Family/Caregiver Education. Patient has seen no change in her pain or function since beginning therapy and will be referred back to her pcp. She is unlikely to benefit from further skilled care having seen no progress in 1 month of therapy and consistently performing HEP. Goals for Episode of Care: created on 08/28/18 through 10/31/18 [place] in home exercise program. Met Patient will decrease pain rating by 2 points to meet minimal clinical important difference for numeric pain rating scale. Not met Patient will increase active ROM of left shoulder and neck to WNL in all ranges to allow pt to to achieve neutral postural alignment and improved performance of ADLs. Not met Patient will increase strength of left shoulder to 5/5 to allow for return to prior functional status and perform ADLs. Not met Perform reaching, lifting, and pulling without pain. Not met Demonstrate improvement on functional score: Patient will improve his/her AM-PAC T-scale score by 4 points to indicate a Minimal Clinical Important Difference . Not met G CODE REPORTING Based on clinical assessment and the score on the AM-PAC Scale Score Assessment Tool, the G code and corresponding severity modifiers are documented below. Evaluation: 08/31/2018 Current Status: Carrying, Moving and Handling Objects: G8984 CJ 20-39% impaired Goal Status: Carrying, Moving and Handling Objects: G8985 CI 1-19% Impaired Discharge: 09/26/2018 Goal Status: Carrying, Moving and Handling Objects: G8985 CI 1-19% impaired Discharge: Carrying, Moving and Handling Objects: G8986 CI 1-19% impaired SUBJECTIVE: Pt has not seen any progress since starting therapy. Her shoulder still hurts just the same. Reaching, pulling, lifting, self care like washing hair, reaching behind back and anything to shoulder height or above all cause her pain. She has been faithful with HEP, but this has not helped- even the massage. Pain Score: 6/10 Pain Location: Shoulder - Left Description: Sharp;Aching Frequency: Continuous OBJECTIVE MEASURES WITH LEVEL OF FUNCTION: Cervical Spine AROM Cervical AROM determined by: Limitation Cervical Flexion: Normal Cervical Extension: Increased pain;Moderate limitation Cervical Side-Bend Right: Normal Cervical Side-Bend Left: Increased pain;Minimal limitation Cervical Rotation Right: Normal Cervical Rotation Left: Increased pain;Moderate limitataion UE PROM R UE PROM: WNL L UE PROM: WFL (Painful arc and less than right, but WFL) UE and Cervical Strength Strength Tested: Shoulder All R Shoulder Shrug (C4): 5/5 R Shoulder Extension: 5/5 R Shoulder Flexion: 5/5 R Shoulder Abduction (C5): 5/5 R Shoulder Internal Rotation: 5/5 R Shoulder External Rotation: 5/5 L Shoulder Extension: 5/5 L Shoulder Flexion: 4+/5 L Shoulder Abduction (C5): 4+/5 L Shoulder Internal Rotation: 5/5 L Shoulder External Rotation: 4/5 TREATMENT: Therapeutic Exercise: 1: Upper trap stretch 2x30 sec/side with instruction to stay in pain free range. 2: Levator stretch 2x30 sec/side with instruction to stay in pain free range. 3: Seated scapular retractions 2x10 with instruction to stay in pain free range. 4: Left shoulder kathy AAROM flexion and scaption 2x10. 5: *Left wand AAROM flexion and abduction 2x10. Skilled Intervention: Patient was educated in proper exercise technique and purpose for exercises. Skilled judgment was provided in selection of appropriate interventions. Patient educated to continue above exercises Billing: [facility]: Therapeutic Exercise ([id number]): 1:1 time: 12 minutes (1 unit: 8-22 mins) Total time: 12 minutes Raymon Guidry PT PROGRESS Observed: 09/12/2018 Status: COMPLETED Source: [place] 4:15 PM [facility] [place] REPOSITORY HNO ID: [id number] Author: Raymon (Pt) Chao Service: (none) Author Type: Physical Therapist Type: Progress Notes Filed: 09/12/2018 4:19 PM Note Text: Episode Visit Count: 3 Therapist That Will Oversee The Plan Of Care: Raymon Guidry Start of Care Date: 08/28/18 Onset Date: 04/28/18 Plan of Care Certification Date: 08/28/18 REHABILITATION AND SPORTS THERAPY PHYSICAL THERAPY TREATMENT NOTE ASSESSMENT: Alberto Strickland demonstrated temporary improvements to L shoulder and arm pain with lateral tilt plus traction today. Pain returns as soon as pull stops. Patient symptoms reproduced with palpation and pressure to pec minor and ulnar nerve into hand and in posterior shoulder over radial nerve. The patient will continue to benefit from continued skilled physical therapy for manual techniques and progressive exercises to decrease pain and return to prior level of function. PLAN FOR NEXT VISIT: see above SUBJECTIVE: Pt continues to have shoulder/neck/arm pain. She bought a lacrosse ball and feels this helps some. Any massage techniques she does are very temporary Pain Score: 6/10 Pain Location: Shoulder - Left;Neck - Left Description: Sharp;Aching Frequency: Continuous OBJECTIVE MEASURES WITH LEVEL OF FUNCTION: Pain reproduced with palpation over ulnar nerve and pec minor and radial nerve in posterior shoulder TREATMENT: Manual Therapy: 1: (P) Manual cervical traction x10 minutes with pull to pt tolerance 2: (P) STM to L pec minor, cervical parapsinals, upper trap, lat, triceps, and levator scapulae 3: (P) IASTM to L triceps with push to pt tolerance Skilled Intervention: Manual skills to improve joint mobility, ROM, and decrease pain. Utilized anatomy knowledge of the therapist, and assessment of patient's response to intervention. Billing: [facility]: Manual Therapy ([id number]): 1:1 time: 40 minutes (3 units: 38-52 mins) Total time: 40 minutes Raymon Guidry PT CNTHERAPY Observed: 09/12/2018 Status: COMPLETED Source: [place] 1:00 PM [facility] REPOSITORY OT/PT/Speech Visit (PTWS) ALBERTO STRICKLAND ([id number]) 1950 F Date Time Provider Department 09/12/18 1:00 PM RAYMON GUIDRY (PT) PTWS Date Time Provider Department [place] 09/12/2018 1:00 PM [id number], SEAN (PT)PTWS [facility] Reason for Visit: Physical Therapy [503] Primary Visit Diagnosis:Chronic left shoulder pain [M25.512, G89.29] Other Visit Diagnosis:Neck pain [M54.2] Allergies As of Date: 09/12/2018 Noted Allergy Reaction CODEINE 12/09/2009 5 - Intolerance Comments: Chest pain ACEON (PERINDOPRIL ERBUMINE) 11/02/2005 2 - Rash 3 - Cough beta blockers [Other] 10/07/2005 3 - Cough Comments: dry hacking cough hctz [Other] 10/07/2005 2 - Rash IMDUR (ISOSORBIDE) 03/06/2012 14 - Other: See Comments Comments: headaches LIPITOR (ATORVASTATIN CALCIUM) 10/21/2014 14 - Other: See Comments Comments: muscle cramps LISINOPRIL 10/07/2005 3 - Cough Comments: dry hacking cough SPIRONOLACTONE 03/21/2014 14 - Other: See Comments Comments: headache Date Reviewed: 09/10/2018 Reviewed by: Katie Bella RN - Fully Assessed Prescriptions as of 09/12/2018 Sig: FUROSEMIDE 40 MG TABLET TAKE ONE-HALF TABLET BY MOUTH* NAPROXEN 500 MG TABLET Take 1 tablet by mouth twice * ALENDRONATE 70 MG EFFERVESCEN* 70 mg by mouth weekly, taken * POTASSIUM CHLORIDE ER 20 MEQ * Take 1 tablet by mouth four t* GABAPENTIN 300 MG CAPSULE Take 1 capsule by mouth daily* LEVOTHYROXINE 88 MCG TABLET Take 1 tablet by mouth once d* LOSARTAN 100 MG TABLET Take 1 tablet by mouth once d* LABETALOL 100 MG TABLET Take 1 tablet by mouth twice * PANTOPRAZOLE 40 MG TABLET,DEL* Take 1 tablet by mouth once d* AMLODIPINE 5 MG TABLET Take 1 tablet by mouth once d* ISOSORBIDE MONONITRATE ER 30 * Take 0.5 tablets by mouth onc* TEMAZEPAM 30 MG CAPSULE Take 1 capsule by mouth at be* BIOTIN 2,500 MCG CAPSULE Take 1 capsule by mouth once * ASPIRIN 81 MG TABLET,DELAYED * Take 81 mg by mouth once ariane* LACTOBACIL RHAMNOSUS GG 10 BI* Take by mouth once daily. Progress Notes: Raymon Guidry, PT 09/12/2018 4:19 PM Signed Episode Visit Count: 3 Therapist That Will Oversee The Plan Of Care: Raymon Guidry Start of Care Date: 08/28/18 Onset Date: 04/28/18 Plan of Care Certification Date: 08/28/18 REHABILITATION AND SPORTS THERAPY PHYSICAL THERAPY TREATMENT NOTE ASSESSMENT: Alberto Trang Rebecca demonstrated temporary improvements to L shoulder and arm pain with lateral tilt plus traction today. Pain returns as soon as pull stops. Patient symptoms reproduced with palpation and pressure to pec minor and ulnar nerve into hand and in posterior shoulder over radial nerve. The patient will continue to benefit from continued skilled physical therapy for manual techniques and progressive exercises to decrease pain and return to prior level of function. PLAN FOR NEXT VISIT: see above SUBJECTIVE: Pt continues to have shoulder/neck/arm pain. She bought a lacrosse ball and feels this helps some. Any massage techniques she does are very temporary Pain Score: 6/10 Pain Location: Shoulder - Left;Neck - Left Description: Sharp;Aching Frequency: Continuous OBJECTIVE MEASURES WITH LEVEL OF FUNCTION: Pain reproduced with palpation over ulnar nerve and pec minor and radial nerve in posterior shoulder TREATMENT: Manual Therapy: 1: (P) Manual cervical traction x10 minutes with pull to pt tolerance 2: (P) STM to L pec minor, cervical parapsinals, upper trap, lat, triceps, and levator scapulae 3: (P) IASTM to L triceps with push to pt tolerance Skilled Intervention: Manual skills to improve joint mobility, ROM, and decrease pain. Utilized anatomy knowledge of the therapist, and assessment of patient's response to intervention. Billing: [facility]: Manual Therapy ([id number]): 1:1 time: 40 minutes (3 units: 38-52 mins) Total time: 40 minutes Raymon Guidry PT PROGRESS Observed: 09/10/2018 Status: COMPLETED Source: [place] 10:34 AM [facility] REPOSITORY O ID: [id number] Author: Chon Banks Service: (none) Author Type: Physician Type: Progress Notes Filed: 09/10/2018 5:47 PM Note Text: PERTINENT CARDIAC HISTORY HTN Chest pain - normal cath 2016 HL - statin intolerant ADHERENCE TO GUIDELINES AN-I or ARB for HF with prior LVEF<40 (NQF 0081) - N/A ASA or Plavix for ASHD (NQF 0067) - met Beta gustavo for ASHD with prior IN or prior LVEF<40 (NQF 0070) - N/A Beta gustavo for HF with prior LVEF<40 (NQF 0083) - N/A AN-I or ARB for ASHD with DM or prior LVEF<40 (NQF 0066) - N/A Statin therapy for ASHD or FHL or DM - intolerant BMI documented and plan if >25 (NQF 0421) - lifestyle recommendation form Tobacco use screening and referral (NQF 0028) - lifestyle recommendation form Recommendation for whole food, plant based diet - lifestyle recommendation form CLINICAL IMPRESSION/PLAN: Alberto Strickland has stable symptoms which are concerning, but have not been altered by use of pharmacologic therapy. Her previous cath showed no obstructive coronary disease. Microvascular angina is a possibility. She has been advised to continue her current medication. Unfortunately, she cannot tolerate statin therapy. She will continue antiplatelet therapy. She has been encouraged to begin a regular exercise program. If she has difficulty with this, I suggested that we repeat her stress echo to be sure that she has not developed any obstructive disease. I will see her in 6 months or as needed. Written and verbal health teaching given to patient, patient verbalizes understanding and agrees with treatment plan. DIAGNOSIS FOR VISIT: Chest pain Hypertension HISTORY OF PRESENT ILLNESS Alberto Strickland returns for follow-up of her chronic chest pain syndrome. She reports that her exercise tolerance has been stable, but limited. She has occasional brief episodes of chest discomfort which occur with or without exercise. She has had no change in the frequency with long-acting nitrates and has had no consistent relief with nitroglycerin. She's had rare episodes of palpitations lasting seconds. She has been taking magnesium supplements and this has helped with her leg cramps and palpitations. She denies orthopnea, edema, syncope, TIAs, amaurosis and claudication. ALLERGIES: ALLERGIES Allergen Reactions - Codeine Intolerance Chest pain - Aceon [Perindopril * Rash, Cough - Beta Blockers [Othe* Cough dry hacking cough - Hctz [Other] Rash - Imdur [Isosorbide] Other: See Comments headaches - Lipitor [Atorvastat* Other: See Comments muscle cramps - Lisinopril Cough dry hacking cough - Spironolactone Other: See Comments headache CURRENT OUTPATIENT MEDICATIONS: furosemide (LASIX) 40 mg tablet TAKE ONE-HALF TABLET BY MOUTH TWICE DAILY naproxen (NAPROSYN) 500 mg tablet Take 1 tablet by mouth twice daily as needed. Take with food. alendronate (BINOSTO) 70 mg tbef 70 mg by mouth weekly, taken with full glass of water 30 min before first food/drink/med; avoid lying down for 30 min afterwards potassium chloride ER (K-DUR, KLOR-CON) 20 mEq tablet Take 1 tablet by mouth four times daily. levothyroxine (SYNTHROID) 88 mcg tablet Take 1 tablet by mouth once daily. losartan (COZAAR) 100 mg tablet Take 1 tablet by mouth once daily. labetalol (TRANDATE) 100 mg tablet Take 1 tablet by mouth twice daily. pantoprazole DR (PROTONIX) 40 mg tablet Take 1 tablet by mouth once daily. Take on empty stomach, 1/2 hr before meal. amLODIPine (NORVASC) 5 mg tablet Take 1 tablet by mouth once daily. isosorbide mononitrate ER (IMDUR) 30 mg 24 hr tablet Take 0.5 tablets by mouth once daily. temazepam (RESTORIL) 30 mg cap Take 1 capsule by mouth at bedtime as needed. FOR SLEEP. Biotin 2,500 mcg cap Take 1 capsule by mouth once daily. aspirin, enteric coated (ASPIRIN, ENTERIC COATED) 81 mg EC tablet Take 81 mg by mouth once daily. lactobacillus rhamnosus-Inulin (CULTURELLE PROBIOTICS) 10 billion cell -245 mg cpSP Take by mouth once daily. gabapentin (NEURONTIN) 300 mg capsule Take 1 capsule by mouth daily at bedtime for 90 days. PHYSICAL EXAMINATION: VITAL SIGNS: BP 132/77 Pulse 68 Wt 184 lb 6.4 oz (83.6kg) Chest: Clear to auscultation. Trachea is midline. Air entry is equal. Cardiac: Regular rhythm. S1 and S2 are normal. PMI is nondisplaced. There is a soft systolic ejection murmur without radiation. Carotids are brisk without bruits. JVP is less than 10 cm. Abdomen: Soft and nontender. There are no pulsatile masses or bruits. No liver enlargement. Bowel sounds are active. Extremities: No edema. Pulses are intact and symmetrical. Recent labs were reviewed. Renal function is mildly depressed, but stable. LDL was 102. She is statin intolerant. Electronically Signed: Chon Banks MD September 10, 2018 10:34 AM CC: SYDNI Otoole MDOV Observed: 09/10/2018 Status: COMPLETED Source: [place] 10:30 AM [facility] REPOSITORY Office Visit (NMWSTR) ALBERTO STRICKLAND ([id number]) 1950 F Date Time Provider Department 09/10/18 10:30 AM CHON BANKS During your visit today, we recorded the following information about you: Pulse Blood pressure Weight 68/minute 132/77 83.6 kg Chon Banks MD 09/10/2018 5:47 PM Signed PERTINENT CARDIAC HISTORY HTN Chest pain - normal cath 2015 HL - statin intolerant ADHERENCE TO GUIDELINES AN-I or ARB for HF with prior LVEF<40 (NQF 0081) - N/A ASA or Plavix for ASHD (NQF 0067) - met Beta gustavo for ASHD with prior IN or prior LVEF<40 (NQF 0070) - N/A Beta gustavo for HF with prior LVEF<40 (NQF 0083) - N/A AN-I or ARB for ASHD with DM or prior LVEF<40 (NQF 0066) - N/A Statin therapy for ASHD or FHL or DM - intolerant BMI documented and plan if >25 (NQF 0421) - lifestyle recommendation form Tobacco use screening and referral (NQF 0028) - lifestyle recommendation form Recommendation for whole food, plant based diet - lifestyle recommendation form CLINICAL IMPRESSION/PLAN: Alberto Strickland has stable symptoms which are concerning, but have not been altered by use of pharmacologic therapy. Her previous cath showed no obstructive coronary disease. Microvascular angina is a possibility. She has been advised to continue her current medication. Unfortunately, she cannot tolerate statin therapy. She will continue antiplatelet therapy. She has been encouraged to begin a regular exercise program. If she has difficulty with this, I suggested that we repeat her stress echo to be sure that she has not developed any obstructive disease. I will see her in 6 months or as needed. Written and verbal health teaching given to patient, patient verbalizes understanding and agrees with treatment plan. DIAGNOSIS FOR VISIT: Chest pain Hypertension HISTORY OF PRESENT ILLNESS Alberto Strickland returns for follow-up of her chronic chest pain syndrome. She reports that her exercise tolerance has been stable, but limited. She has occasional brief episodes of chest discomfort which occur with or without exercise. She has had no change in the frequency with long- acting nitrates and has had no consistent relief with nitroglycerin. She's had rare episodes of palpitations lasting seconds. She has been taking magnesium supplements and this has helped with her leg cramps and palpitations. She denies orthopnea, edema, syncope, TIAs, amaurosis and claudication. ALLERGIES: ALLERGIES Allergen Reactions - Codeine Intolerance Chest pain - Aceon [Perindopril * Rash, Cough - Beta Blockers [Othe* Cough dry hacking cough - Hctz [Other] Rash - Imdur [Isosorbide] Other: See Comments headaches - Lipitor [Atorvastat* Other: See Comments muscle cramps - Lisinopril Cough dry hacking cough - Spironolactone Other: See Comments headache CURRENT OUTPATIENT MEDICATIONS: furosemide (LASIX) 40 mg tablet TAKE ONE-HALF TABLET BY MOUTH TWICE DAILY naproxen (NAPROSYN) 500 mg tablet Take 1 tablet by mouth twice daily as needed. Take with food. alendronate (BINOSTO) 70 mg tbef 70 mg by mouth weekly, taken with full glass of water 30 min before first food/drink/med; avoid lying down for 30 min afterwards potassium chloride ER (K-DUR, KLOR-CON) 20 mEq tablet Take 1 tablet by mouth four times daily. levothyroxine (SYNTHROID) 88 mcg tablet Take 1 tablet by mouth once daily. losartan (COZAAR) 100 mg tablet Take 1 tablet by mouth once daily. labetalol (TRANDATE) 100 mg tablet Take 1 tablet by mouth twice daily. pantoprazole DR (PROTONIX) 40 mg tablet Take 1 tablet by mouth once daily. Take on empty stomach, 1/2 hr before meal. amLODIPine (NORVASC) 5 mg tablet Take 1 tablet by mouth once daily. isosorbide mononitrate ER (IMDUR) 30 mg 24 hr tablet Take 0.5 tablets by mouth once daily. temazepam (RESTORIL) 30 mg cap Take 1 capsule by mouth at bedtime as needed. FOR SLEEP. Biotin 2,500 mcg cap Take 1 capsule by mouth once daily. aspirin, enteric coated (ASPIRIN, ENTERIC COATED) 81 mg EC tablet Take 81 mg by mouth once daily. lactobacillus rhamnosus-Inulin (CULTURELLE PROBIOTICS) 10 billion cell -245 mg cpSP Take by mouth once daily. gabapentin (NEURONTIN) 300 mg capsule Take 1 capsule by mouth daily at bedtime for 90 days. PHYSICAL EXAMINATION: VITAL SIGNS: BP 132/77 Pulse 68 Wt 184 lb 6.4 oz (83.6kg) Chest: Clear to auscultation. Trachea is midline. Air entry is equal. Cardiac: Regular rhythm. S1 and S2 are normal. PMI is nondisplaced. There is a soft systolic ejection murmur without radiation. Carotids are brisk without bruits. JVP is less than 10 cm. Abdomen: Soft and nontender. There are no pulsatile masses or bruits. No liver enlargement. Bowel sounds are active. Extremities: No edema. Pulses are intact and symmetrical. Recent labs were reviewed. Renal function is mildly depressed, but stable. LDL was 102. She is statin intolerant. Electronically Signed: Chon Banks MD September 10, 2018 10:34 AM CC: SYDNI Otoole MD, MD 09/10/2018 10:34 AM Signed LIFESTYLE CHANGE A healthy lifestyle is the most important component of your overall treatment plan. Please give serious thought to the following areas and commit to making nursing home changes. EAT A WHOLE FOOD, PLANT BASED DIET The nutrition your body gets is more important than the medicine you take. What matters most is the overall way you eat. We encourage you to minimize the use of animal products (which include dairy and all meats except fatty fish) and use whole, unprocessed plant foods to provide your protein, vitamins and other nutrients. We have a lot of information to share with you on this topic. This is not a diet. It is a way of life that you will keep with you. EXERCISE REGULARLY It is not important to spend hours in the gym, lifting weights and perspiring heavily. A total of 2-3 hours per week of aerobic (causing you to be moderately short of breath) exercise is sufficient to improve your health. Talk to us before you begin a new exercise program, if you have heart disease or experience shortness of breath or chest pain. REDUCE STRESS Chronic emotional and physical stress leads to disease. Ways of reducing stress include meditation, visualization, prayer, yoga and other forms of relaxation therapy. Consistency is the conway. Find a technique that works for you and do it every day. CULTIVATE RELATIONSHIPS Loneliness and isolation have a major negative impact on health. Seek out others who can love, care for and nurture you. Avoid hurtful relationships. MAINTAIN IDEAL BODY WEIGHT The best way to do this is to do all the things above. Our bodies naturally find the right weight if we keep moving and feed ourselves the right food. If your BMI is greater than 25, we strongly recommend a referral to a weight management program. Please speak to us or your family physician about available programs. AVOID NICOTINE IN ALL FORMS This includes all tobacco products, whether chewed, smoked, vaped, or rubbed on the skin. Smoking cessation programs, which can make use of tobacco substitutes, medications to suppress cravings and behavior management, are available. Please contact your family physician about programs in your area. Referring Provider: CHON BANKS [[id number]] Allergies As of Date: 09/10/2018 Noted Allergy Reaction CODEINE 12/09/2009 5 - Intolerance Comments: Chest pain ACEON (PERINDOPRIL ERBUMINE) 11/02/2005 2 - Rash 3 - Cough beta blockers [Other] 10/07/2005 3 - Cough Comments: dry hacking cough hctz [Other] 10/07/2005 2 - Rash IMDUR (ISOSORBIDE) 03/06/2012 14 - Other: See Comments Comments: headaches LIPITOR (ATORVASTATIN CALCIUM) 10/21/2014 14 - Other: See Comments Comments: muscle cramps LISINOPRIL 10/07/2005 3 - Cough Comments: dry hacking cough SPIRONOLACTONE 03/21/2014 14 - Other: See Comments Comments: headache Date Reviewed: 09/10/2018 Reviewed by: Katie Bella RN - Fully Assessed Reason for Visit: Recheck [92] Primary Visit Diagnosis:Chest pain, unspecified type [R07.9] Other Visit Diagnosis:Hypertension, essential [I10] Prescriptions as of 09/10/2018 Sig: FUROSEMIDE 40 MG TABLET TAKE ONE-HALF TABLET BY MOUTH* NAPROXEN 500 MG TABLET Take 1 tablet by mouth twice * ALENDRONATE 70 MG EFFERVESCEN* 70 mg by mouth weekly, taken * POTASSIUM CHLORIDE ER 20 MEQ * Take 1 tablet by mouth four t* LEVOTHYROXINE 88 MCG TABLET Take 1 tablet by mouth once d* LOSARTAN 100 MG TABLET Take 1 tablet by mouth once d* LABETALOL 100 MG TABLET Take 1 tablet by mouth twice * PANTOPRAZOLE 40 MG TABLET,DEL* Take 1 tablet by mouth once d* AMLODIPINE 5 MG TABLET Take 1 tablet by mouth once d* ISOSORBIDE MONONITRATE ER 30 * Take 0.5 tablets by mouth onc* TEMAZEPAM 30 MG CAPSULE Take 1 capsule by mouth at be* BIOTIN 2,500 MCG CAPSULE Take 1 capsule by mouth once * ASPIRIN 81 MG TABLET,DELAYED * Take 81 mg by mouth once ariane* LACTOBACIL RHAMNOSUS GG 10 BI* Take by mouth once daily. GABAPENTIN 300 MG CAPSULE Take 1 capsule by mouth daily* Problem List As Of Date 09/10/2018 Noted Resolved BENIGN HYPERTENSION [I10] More... More... PERS HX COLONIC POLYPS [Z86.010] More... 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] INVALID FOR* CERVICAL DISC DEGEN [M50.30] INVALID FOR* Degenerative arthritis of knee [M17.10] INVALID FOR* Trigeminal neuralgia [G50.0] INVALID FOR* Inadequate pelvic muscles [M62.9] INVALID FOR* Mixed stress and urge urinary incontinence [N39*INVALID FOR* Uterine prolapse [N81.4] INVALID FOR* Cystocele, midline [N81.11] INVALID FOR* Esophageal reflux [K21.9] INVALID FOR* Delayed gastric emptying [K30] INVALID FOR* Trochanteric bursitis of left hip [M70.62] INVALID FOR* Hypokalemia [E87.6] INVALID FOR* Thoracic radiculopathy due to degenerative join*INVALID FOR* Tethered spinal cord (HCC) [Q06.8] INVALID FOR* Abdominal pain [R10.9] INVALID FOR*09/01/2016 Poor sleep hygiene [Z72.821] INVALID FOR* Impaired fasting glucose [R73.01] INVALID FOR* Thoracic spine pain [M54.6] INVALID FOR* Lumbar disc disease with radiculopathy [M51.16] INVALID FOR* Venous insufficiency (chronic) (peripheral) [I8*INVALID FOR* Dvtrcli of intest, part unsp, w/o perf or absce*INVALID FOR* Dysphagia, unspecified [R13.10] INVALID FOR* History of pancreatitis [Z87.19] INVALID FOR* History of diverticulitis [Z87.19] INVALID FOR* Elevated alkaline phosphatase level [R74.8] INVALID FOR* Chronic left shoulder pain [M25.512, G89.29] INVALID FOR* Neck pain [M54.2] INVALID FOR* Other instructions from your clinician: LIFESTYLE CHANGE A healthy lifestyle is the most important component of your overall treatment plan. Please give serious thought to the following areas and commit to making nursing home changes. EAT A WHOLE FOOD, PLANT BASED DIET The nutrition your body gets is more important than the medicine you take. What matters most is the overall way you eat. We encourage you to minimize the use of animal products (which include dairy and all meats except fatty fish) and use whole, unprocessed plant foods to provide your protein, vitamins and other nutrients. We have a lot of information to share with you on this topic. This is not a diet. It is a way of life that you will keep with you. EXERCISE REGULARLY It is not important to spend hours in the gym, lifting weights and perspiring heavily. A total of 2-3 hours per week of aerobic (causing you to be moderately short of breath) exercise is sufficient to improve your health. Talk to us before you begin a new exercise program, if you have heart disease or experience shortness of breath or chest pain. REDUCE STRESS Chronic emotional and physical stress leads to disease. Ways of reducing stress include meditation, visualization, prayer, yoga and other forms of relaxation therapy. Consistency is the conway. Find a technique that works for you and do it every day. CULTIVATE RELATIONSHIPS Loneliness and isolation have a major negative impact on health. Seek out others who can love, care for and nurture you. Avoid hurtful relationships. MAINTAIN IDEAL BODY WEIGHT The best way to do this is to do all the things above. Our bodies naturally find the right weight if we keep moving and feed ourselves the right food. If your BMI is greater than 25, we strongly recommend a referral to a weight management program. Please speak to us or your family physician about available programs. AVOID NICOTINE IN ALL FORMS This includes all tobacco products, whether chewed, smoked, vaped, or rubbed on the skin. Smoking cessation programs, which can make use of tobacco substitutes, medications to suppress cravings and behavior management, are available. Please contact your family physician about programs in your area. Encounter Status:Closed by CHON BANKS MD on 09/10/18 PROGRESS Observed: 09/07/2018 Status: COMPLETED Source: [place] 10:14 AM [facility] REPOSITORY O ID: [id number] Author: Raymon (Maurilio) Chao Service: (none) Author Type: Physical Therapist Type: Progress Notes Filed: 09/07/2018 11:23 AM Note Text: Episode Visit Count: 2 Therapist That Will Oversee The Plan Of Care: Raymon Guidry Start of Care Date: 08/28/18 Onset Date: 04/28/18 Plan of Care Certification Date: 08/28/18 Patient Identified by Name and Date of : Yes REHABILITATION AND SPORTS THERAPY PHYSICAL THERAPY TREATMENT NOTE ASSESSMENT: Alberto Strickland demonstrated improvements in tolerance for exercises today with instruction to stay in pain free ranges with movement. Following manual therapy patient's neck pain abolished and left shoulder pain decreased. Patient plans to purchase a lacrosse ball for home use. The patient will continue to benefit from continued skilled physical therapy for progression of left shoulder strengthening and manual therapy for pain control. PLAN FOR NEXT VISIT: Continue with manual techniques and AAROM left shoulder with progression to strengthening left. shoulder, SUBJECTIVE: Patient reports the right shoulder pain is not improving. She reports pain left neck as well. Pain Score: 6/10 (left neck pain 5/10 and pain is throbbing) Pain Location: Shoulder - Left Description: Sharp Frequency: Continuous Post Treatment Pain Score: 3/10 (neck pain abolished) Pain Location: Shoulder - Left Post Treatment Pain Description: Sore OBJECTIVE MEASURES WITH LEVEL OF FUNCTION: Palpable tightness left upper trap and posterior shoulder. TREATMENT: Therapeutic Exercise: 1: Upper trap stretch 2x30 sec/side with instruction to stay in pain free range. 2: Levator stretch 2x30 sec/side with instruction to stay in pain free range. 3: Seated scapular retractions 2x10 with instruction to stay in pain free range. 4: Left shoulder kathy AAROM flexion and scaption 2x10. 5: *Left wand AAROM flexion and abduction 2x10. Skilled Intervention: Patient was educated in proper exercise technique and purpose for exercises. Reviewed and educated patient on additions/changes for home exercise program as above (*) Skilled judgment was provided in selection of appropriate interventions. Provided written instruction for home exercise program to facilitate proper performance and compliance. Correct performance of therapeutic exercises was facilitated with verbal and visual cuing. Manual Therapy: 1: Lacrosse ball mobs left cervical UT and shoulder region x 8 minutes. 2: Manual cervical traction x10 minutes with pull to pt tolerance Skilled Intervention: Manual skills to improve joint mobility, ROM, and decrease pain. Utilized anatomy knowledge of the therapist, and assessment of patient's response to intervention. Billing: [facility]: Therapeutic Exercise ([id number]): 1:1 time: 23 minutes (2 units: 23-37 mins) Manual Therapy ([id number]): 1:1 time: 18 minutes (1 unit: 8-22 mins) Total time: 41 minutes SMITHA Beltre PT CNTHERAPY Observed: 09/07/2018 Status: COMPLETED Source: [place] 9:15 AM [facility] REPOSITORY OT/PT/Speech Visit (PTWS) ALBERTO STRICKLAND ([id number]) 1950 F Date Time Provider Department 09/07/18 9:15 AM TIFFANIE BOYKIN ([employer]ING MANAGER) PTWS Date Time Provider Department Center 09/07/2018 9:15 AM [id number], NANCY ([employer]ELING MANAGER) PTWS [facility] NAT[facility] Reason for Visit: Physical Therapy [503] Primary Visit Diagnosis:Chronic left shoulder pain [M25.512, G89.29] Other Visit Diagnosis:Neck pain [M54.2] Allergies As of Date: 09/07/2018 Noted Allergy Reaction CODEINE 12/09/2009 5 - Intolerance Comments: Chest pain ACEON (PERINDOPRIL ERBUMINE) 11/02/2005 2 - Rash 3 - Cough beta blockers [Other] 10/07/2005 3 - Cough Comments: dry hacking cough hctz [Other] 10/07/2005 2 - Rash IMDUR (ISOSORBIDE) 03/06/2012 14 - Other: See Comments Comments: headaches LIPITOR (ATORVASTATIN CALCIUM) 10/21/2014 14 - Other: See Comments Comments: muscle cramps LISINOPRIL 10/07/2005 3 - Cough Comments: dry hacking cough SPIRONOLACTONE 03/21/2014 14 - Other: See Comments Comments: headache Date Reviewed: 07/12/2018 Reviewed by: Sandra ([facility]) DEE Lraa - Fully Assessed Prescriptions as of 09/07/2018 Sig: FUROSEMIDE 40 MG TABLET TAKE ONE-HALF TABLET BY MOUTH* NAPROXEN 500 MG TABLET Take 1 tablet by mouth twice * ALENDRONATE 70 MG EFFERVESCEN* 70 mg by mouth weekly, taken * POTASSIUM CHLORIDE ER 20 MEQ * Take 1 tablet by mouth four t* GABAPENTIN 300 MG CAPSULE Take 1 capsule by mouth daily* LEVOTHYROXINE 88 MCG TABLET Take 1 tablet by mouth once d* LOSARTAN 100 MG TABLET Take 1 tablet by mouth once d* LABETALOL 100 MG TABLET Take 1 tablet by mouth twice * PANTOPRAZOLE 40 MG TABLET,DEL* Take 1 tablet by mouth once d* AMLODIPINE 5 MG TABLET Take 1 tablet by mouth once d* ISOSORBIDE MONONITRATE ER 30 * Take 0.5 tablets by mouth onc* TEMAZEPAM 30 MG CAPSULE Take 1 capsule by mouth at be* BIOTIN 2,500 MCG CAPSULE Take 1 capsule by mouth once * ASPIRIN 81 MG TABLET,DELAYED * Take 81 mg by mouth once ariane* LACTOBACIL RHAMNOSUS GG 10 BI* Take by mouth once daily. Progress Notes: Raymon Guidry, PT 09/07/2018 11:23 AM Signed Episode Visit Count: 2 Therapist That Will Oversee The Plan Of Care: Raymon Guidry Start of Care Date: 08/28/18 Onset Date: 04/28/18 Plan of Care Certification Date: 08/28/18 Patient Identified by Name and Date of : Yes REHABILITATION AND SPORTS THERAPY PHYSICAL THERAPY TREATMENT NOTE ASSESSMENT: Alberto Strickland demonstrated improvements in tolerance for exercises today with instruction to stay in pain free ranges with movement. Following manual therapy patient's neck pain abolished and left shoulder pain decreased. Patient plans to purchase a lacrosse ball for home use. The patient will continue to benefit from continued skilled physical therapy for progression of left shoulder strengthening and manual therapy for pain control. PLAN FOR NEXT VISIT: Continue with manual techniques and AAROM left shoulder with progression to strengthening left. shoulder, SUBJECTIVE: Patient reports the right shoulder pain is not improving. She reports pain left neck as well. Pain Score: 6/10 (left neck pain 5/10 and pain is throbbing) Pain Location: Shoulder - Left Description: Sharp Frequency: Continuous Post Treatment Pain Score: 3/10 (neck pain abolished) Pain Location: Shoulder - Left Post Treatment Pain Description: Sore OBJECTIVE MEASURES WITH LEVEL OF FUNCTION: Palpable tightness left upper trap and posterior shoulder. TREATMENT: Therapeutic Exercise: 1: Upper trap stretch 2x30 sec/side with instruction to stay in pain free range. 2: Levator stretch 2x30 sec/side with instruction to stay in pain free range. 3: Seated scapular retractions 2x10 with instruction to stay in pain free range. 4: Left shoulder kathy AAROM flexion and scaption 2x10. 5: *Left wand AAROM flexion and abduction 2x10. Skilled Intervention: Patient was educated in proper exercise technique and purpose for exercises. Reviewed and educated patient on additions/changes for home exercise program as above (*) Skilled judgment was provided in selection of appropriate interventions. Provided written instruction for home exercise program to facilitate proper performance and compliance. Correct performance of therapeutic exercises was facilitated with verbal and visual cuing. Manual Therapy: 1: Lacrosse ball mobs left cervical UT and shoulder region x 8 minutes. 2: Manual cervical traction x10 minutes with pull to pt tolerance Skilled Intervention: Manual skills to improve joint mobility, ROM, and decrease pain. Utilized anatomy knowledge of the therapist, and assessment of patient's response to intervention. Billing: [facility]: Therapeutic Exercise ([id number]): 1:1 time: 23 minutes (2 units: 23-37 mins) Manual Therapy ([id number]): 1:1 time: 18 minutes (1 unit: 8-22 mins) Total time: 41 minutes Tiffanie Boykin PTLaine Guidry PT Previous Version Follow-up and Disposition History Recorded CNCO Observed: 09/06/2018 Status: COMPLETED Source: [place] 9:08 AM [facility] [place] REPOSITORY HNO ID: [id number] Author: Mammography Coordinator Service: (none) Author Type: Physician Type: Letter Filed: 09/10/2018 11:31 PM Note Text: September 06, 2018 PID: [id number] Alberto Strickland [address] [place] [address] Dear Ms. Strickland, We are pleased to inform you that the results of your recent breast imaging exam on 09/06/2018 are normal. Your mammogram demonstrates that you have dense breast tissue, which could hide abnormalities. Dense breast tissue, in and of itself, is a relatively common condition. Therefore, this information is not provided to cause undue concern; rather, it is to raise your awareness and promote discussion with your health care provider regarding the presence of dense breast tissue in addition to other risk factors. Early detection of cancer is very important. We also understand recommendations regarding breast cancer screening are controversial. Please discuss with your primary care provider which strategy is best for you and whether a mammogram is right for you. Your imaging studies and report will be kept on file at [facility] as part of your permanent medical record and are available for your continuing care. Thank you for allowing us to help in meeting your health care needs. Sincerely, Dr. Singleton Interpreting Radiologist [facility] (Normal over 40) [facility] SCREENING Observed: 09/06/2018 Status: F Source: [place] 8:39 AM [facility] REPOSITORY * * *Final Report* * * DATE OF EXAM: Sep 06 2018 8:39AM [facility] [id number] - [facility] SCREENING / PROCEDURE REASON: Screening breast examination * * * * Physician Interpretation * * * * RESULT: #[id number] - [facility] SCREENING BILATERAL DIGITAL SCREENING MAMMOGRAM WITH CAD: 09/06/2018 HISTORY: Screening Breast Examination /priors available for comparison. RESULT: TECHNIQUE: The study was acquired using full field digital technology and interpreted from soft copy. Current study was also evaluated with a Computer Aided Detection (CAD). Comparison is made to exams dated: 09/06/2017 mammogram - [facility], 08/10/2016 mammogram, 06/08/2015 mammogram, and 04/14/2014 mammogram - [facility]. The tissue of both breasts is extremely dense, which lowers the sensitivity of mammography. No significant masses, calcifications, or other findings are seen in either breast. There has been no significant interval change. IMPRESSION: NEGATIVE There is no mammographic evidence of malignancy. A 1 year screening mammogram is recommended. Page penny/bob:09/06/2018 09:08:22 Material Liaison: Anabel CORNELIUS(Andre)(Flo), [facility] letter sent: Normal over 40 Mammogram BI-RADS: 1 Negative Multiple national specialty organizations have released breast cancer screening guidelines for women at average risk for developing breast cancer - guidelines that are based on both evidence and opinion, yet differ on when to start and how often to screen for breast cancer. With representation from Breast Imaging, Internal Medicine, Women's Health, Family Medicine, and Medical/Surgical Oncology, the [facility] has carefully reviewed the data and reached the following consensus: 1) All women should engage in shared decision-making with their providers to decide when to start and how often to screen; 2) All women should have the opportunity to start screening mammography at age 40; 3) For women ages 45-55, we recommend annual screening mammograms; 4) For women ages 55 and over, we support both the transition from an annual to a biennial interval if this aligns more with patient's values and preferences, or continuation with annual screening; 5) All women should discuss with their providers when to stop screening mammograms. Wash Mill Operator: Bob Transcribe Date/Time: Sep 06 2018 8:18A Dictated by: PAGE SINGLETON MD This examination was interpreted and the report reviewed and electronically signed by: PAGE SINGLETON MD on Sep 06 2018 9:08AM EST [id number] PROCEDURE Observed: 09/06/2018 Status: COMPLETED Source: [place] 8:18 AM [facility] [place] REPOSITORY O ID: [id number] Author: Kary Nunes (Rt) Service: (none) Author Type: [employer] Type: Procedures Filed: 09/06/2018 8:39 AM Note Text: Radiology Service Progress Note PATIENT NAME: Alberto Strickland DATE OF SERVICE: September 06, 2018 TIME: 8:18 AM PATIENT IDENTITY VERIFICATION COMPLETED USING TWO (2) METHODS: Patient confirmed name verbally and Date of . PATIENT GENDER DATA: Female. status: : No status: NO. PATIENT RELEVANT IMPLANT DATA REVIEWED: Not Applicable RADIOLOGY DEPARTMENT: [facility] DATA: Not applicable SIGNED BY: RT Manju September 06, 2018 8:18 AM PROGRESS Observed: 08/28/2018 Status: COMPLETED Source: [place] 11:26 AM [facility] [place] REPOSITORY O ID: [id number] Author: Raymon (Pt) Chao Service: (none) Author Type: Physical Therapist Type: Progress Notes Filed: 08/31/2018 9:34 AM Note Text: Episode Visit Count: 1 Therapist That Will Oversee The Plan Of Care: Raymon Guidry Start of Care Date: 08/28/18 Onset Date: 04/28/18 Plan of Care Certification Date: 08/28/18 Patient Identified by Name and Date of : Yes REHABILITATION AND SPORTS THERAPY PHYSICAL THERAPY EVALUATION PLAN OF CARE: Assessment: Alberto Strickland presents with the chief complaint of neck pain with radicular symptoms and left shoulder pain. She presents with impairments of limited neck range of motion, shoulder range of motion, functional use of the left shoulder, decreased shoulder strength, and difficulty with reaching, pulling, and lifting activities. She may benefit from skilled therapy services to improve the above noted deficits to decrease pain and return to prior level of function. Prognosis: Fair Fair due to: clinical presentation;multiple co- morbidities;chronic nature of impairments;limited tolerance to activity Goals for Episode of Care: created on 08/28/18 through 10/31/18 [place] in home exercise program. Patient will decrease pain rating by 2 points to meet minimal clinical important difference for numeric pain rating scale. Patient will increase active ROM of left shoulder and neck to WNL in all ranges to allow pt to to achieve neutral postural alignment and improved performance of ADLs. Patient will increase strength of left shoulder to 5/5 to allow for return to prior functional status and perform ADLs. Perform reaching, lifting, and pulling without pain. Demonstrate improvement on functional score: Patient will improve his/her AM-PAC T-scale score by 4 points to indicate a Minimal Clinical Important Difference . G CODE REPORTING Based on clinical assessment and the score on the AM-PAC Scale Score Assessment Tool, the G code and corresponding severity modifiers are documented below. Evaluation: 08/31/2018 Current Status: Carrying, Moving and Handling Objects: G8984 CJ 20-39% impaired Goal Status: Carrying, Moving and Handling Objects: G8985 CI 1-19% impaired Planned Interventions, Frequency, and Duration: Current Frequency: 1x/week Duration: 4 weeks Total Number of Visits Planned: 4 Planned Treatment Interventions: Therapeutic exercise;Manual therapy;Self-half-way management;Patient/Family/Caregiver Education PLAN FOR NEXT VISIT: assess carry over of initial HEP, may continue manual techniques per tolerance Patient demonstrates good understanding of plan of care and treatment. The above goals and plan of care were discussed and agreed upon by patient/family. SUBJECTIVE: Alberto Strickland is a 68 year old female seen today for left shoulder and arm pain. Pt states the entire arm hurts with movement and sometimes at rest. She has been seeing a chiropractor for her neck and some type of injection but no relief. Tried naproxen, heat, ice, nothing has touched the pain. Pain runs from back of neck, into shoulder, and into the 3rd and 4th digits of the fingers with tingling into the fingers. States she does have a buldging disc. Tight, sore, and sharp sensations in the shoulder. closing her car door, lifting, reach all bother her and make it worse. Pt has a very hard time sleeping right now- she's a side sleeping and she has been tossing and turning a lot because of the pain. Pain Score: 10/10 Pain Location: Shoulder - Left Description: Aching;Sore;Tingling;Sharp Frequency: Continuous OBJECTIVE MEASURES WITH LEVEL OF FUNCTION: Education: TREATMENT: Evaluation Therapeutic Exercise: 1: Upper trap stretch 2x30 sec/side 2: Levator stretch 2x30 sec/side 3: Seated scapular retractions 3x10/day Skilled Intervention: Patient was educated in proper exercise technique and purpose for exercises. Skilled judgment was provided in selection of appropriate interventions. Provided written instruction for home exercise program to facilitate proper performance and compliance. Correct performance of therapeutic exercises was facilitated with verbal, visual and tactile cuing. Manual Therapy: 1: STM to B upper traps, levator, SCM, scalenes, supraspinatus and infraspinatus on left assessing for tenderness, tightness, pain reproduction, and tissue quality 2: Manual cervical traction x5 minutes with pull to pt tolerance Skilled Intervention: Manual skills to improve joint mobility, ROM, and decrease pain. Utilized anatomy knowledge of the therapist, and assessment of patient's response to intervention. Billing: [facility]: Evaluation - Low Complexity (11850) Therapeutic Exercise (84409): 1:1 time: 10 minutes (1 unit: 8-22 mins) Manual Therapy (66815): 1:1 time: 15 minutes (1 unit: 8-22 mins) Total time: 45 minutes Raymon Guidry PT CNTHERAPY Observed: 08/28/2018 Status: COMPLETED Source: [place] 10:15 AM [facility] REPOSITORY OT/PT/Speech Visit (PTWS) ALBERTO STRICKLAND ([id number]) 1950 F Date Time Provider Department 08/28/18 10:15 AM RAYMON GUIDRY (PT) PTWS Date Time Provider Department Center 08/28/2018 10:15 AM [id number], SEAN (PT)PTWS [facility] Reason for Visit: PT Eval [747] Physical Therapy [503] Primary Visit Diagnosis:Chronic left shoulder pain [M25.512, G89.29] Other Visit Diagnosis:Neck pain, chronic [M54.2, G89.29] Allergies As of Date: 08/28/2018 Noted Allergy Reaction CODEINE 12/09/2009 5 - Intolerance Comments: Chest pain ACEON (PERINDOPRIL ERBUMINE) 11/02/2005 2 - Rash 3 - Cough beta blockers [Other] 10/07/2005 3 - Cough Comments: dry hacking cough hctz [Other] 10/07/2005 2 - Rash IMDUR (ISOSORBIDE) 03/06/2012 14 - Other: See Comments Comments: headaches LIPITOR (ATORVASTATIN CALCIUM) 10/21/2014 14 - Other: See Comments Comments: muscle cramps LISINOPRIL 10/07/2005 3 - Cough Comments: dry hacking cough SPIRONOLACTONE 03/21/2014 14 - Other: See Comments Comments: headache Date Reviewed: 07/12/2018 Reviewed by: Sandra ([facility]) DEE Lara - Fully Assessed Prescriptions as of 08/28/2018 Sig: FUROSEMIDE 40 MG TABLET TAKE ONE-HALF TABLET BY MOUTH* NAPROXEN 500 MG TABLET Take 1 tablet by mouth twice * ALENDRONATE 70 MG EFFERVESCEN* 70 mg by mouth weekly, taken * POTASSIUM CHLORIDE ER 20 MEQ * Take 1 tablet by mouth four t* GABAPENTIN 300 MG CAPSULE Take 1 capsule by mouth daily* LEVOTHYROXINE 88 MCG TABLET Take 1 tablet by mouth once d* LOSARTAN 100 MG TABLET Take 1 tablet by mouth once d* LABETALOL 100 MG TABLET Take 1 tablet by mouth twice * PANTOPRAZOLE 40 MG TABLET,DEL* Take 1 tablet by mouth once d* AMLODIPINE 5 MG TABLET Take 1 tablet by mouth once d* ISOSORBIDE MONONITRATE ER 30 * Take 0.5 tablets by mouth onc* TEMAZEPAM 30 MG CAPSULE Take 1 capsule by mouth at be* BIOTIN 2,500 MCG CAPSULE Take 1 capsule by mouth once * ASPIRIN 81 MG TABLET,DELAYED * Take 81 mg by mouth once ariane* LACTOBACIL RHAMNOSUS GG 10 BI* Take by mouth once daily. Progress Notes: Raymon Guidry, PT 08/31/2018 9:34 AM Signed Episode Visit Count: 1 Therapist That Will Oversee The Plan Of Care: Raymon Guidry Start of Care Date: 08/28/18 Onset Date: 04/28/18 Plan of Care Certification Date: 08/28/18 Patient Identified by Name and Date of : Yes REHABILITATION AND SPORTS THERAPY PHYSICAL THERAPY EVALUATION PLAN OF CARE: Assessment: Alberto Strickland presents with the chief complaint of neck pain with radicular symptoms and left shoulder pain. She presents with impairments of limited neck range of motion, shoulder range of motion, functional use of the left shoulder, decreased shoulder strength, and difficulty with reaching, pulling, and lifting activities. She may benefit from skilled therapy services to improve the above noted deficits to decrease pain and return to prior level of function. Prognosis: Fair Fair due to: clinical presentation;multiple co- morbidities;chronic nature of impairments;limited tolerance to activity Goals for Episode of Care: created on 08/28/18 through 10/31/18 [place] in home exercise program. Patient will decrease pain rating by 2 points to meet minimal clinical important difference for numeric pain rating scale. Patient will increase active ROM of left shoulder and neck to WNL in all ranges to allow pt to to achieve neutral postural alignment and improved performance of ADLs. Patient will increase strength of left shoulder to 5/5 to allow for return to prior functional status and perform ADLs. Perform reaching, lifting, and pulling without pain. Demonstrate improvement on functional score: Patient will improve his/her AM-PAC T-scale score by 4 points to indicate a Minimal Clinical Important Difference . G CODE REPORTING Based on clinical assessment and the score on the AM-PAC Scale Score Assessment Tool, the G code and corresponding severity modifiers are documented below. Evaluation: 08/31/2018 Current Status: Carrying, Moving and Handling Objects: G8984 CJ 20-39% impaired Goal Status: Carrying, Moving and Handling Objects: G8985 CI 1-19% impaired Planned Interventions, Frequency, and Duration: Current Frequency: 1x/week Duration: 4 weeks Total Number of Visits Planned: 4 Planned Treatment Interventions: Therapeutic exercise;Manual therapy;Self-half-way management;Patient/Family/Caregiver Education PLAN FOR NEXT VISIT: assess carry over of initial HEP, may continue manual techniques per tolerance Patient demonstrates good understanding of plan of care and treatment. The above goals and plan of care were discussed and agreed upon by patient/family. SUBJECTIVE: Alberto Strickland is a 68 year old female seen today for left shoulder and arm pain. Pt states the entire arm hurts with movement and sometimes at rest. She has been seeing a chiropractor for her neck and some type of injection but no relief. Tried naproxen, heat, ice, nothing has touched the pain. Pain runs from back of neck, into shoulder, and into the 3rd and 4th digits of the fingers with tingling into the fingers. States she does have a buldging disc. Tight, sore, and sharp sensations in the shoulder. closing her car door, lifting, reach all bother her and make it worse. Pt has a very hard time sleeping right now- she's a side sleeping and she has been tossing and turning a lot because of the pain. Pain Score: 10/10 Pain Location: Shoulder - Left Description: Aching;Sore;Tingling;Sharp Frequency: Continuous OBJECTIVE MEASURES WITH LEVEL OF FUNCTION: Education: TREATMENT: Evaluation Therapeutic Exercise: 1: Upper trap stretch 2x30 sec/side 2: Levator stretch 2x30 sec/side 3: Seated scapular retractions 3x10/day Skilled Intervention: Patient was educated in proper exercise technique and purpose for exercises. Skilled judgment was provided in selection of appropriate interventions. Provided written instruction for home exercise program to facilitate proper performance and compliance. Correct performance of therapeutic exercises was facilitated with verbal, visual and tactile cuing. Manual Therapy: 1: STM to B upper traps, levator, SCM, scalenes, supraspinatus and infraspinatus on left assessing for tenderness, tightness, pain reproduction, and tissue quality 2: Manual cervical traction x5 minutes with pull to pt tolerance Skilled Intervention: Manual skills to improve joint mobility, ROM, and decrease pain. Utilized anatomy knowledge of the therapist, and assessment of patient's response to intervention. Billing: [facility]: Evaluation - Low Complexity (49045) Therapeutic Exercise (99569): 1:1 time: 10 minutes (1 unit: 8-22 mins) Manual Therapy (36286): 1:1 time: 15 minutes (1 unit: 8-22 mins) Total time: 45 minutes Raymon Guidry PT CNNURSE Observed: 08/20/2018 Status: COMPLETED Source: [place] 10:15 AM [facility] REPOSITORY Nurse Visit (FAMPWS) ALBERTO STRICKLAND ([id number]) 1950 F Date Time Provider Department 08/20/18 10:15 AM IN NURSE FAMPWS During your visit today, we recorded the following information about you: Temperature 97.6 degrees Juli Ralph LPN 08/20/2018 10:00 AM Signed 68 year old female here for INACTIVATED INFLUENZA VACCINE. 2722-7599 Season Patient is identified by name and date of : Yes [] CONTRAINDICATIONS color enhanced section Age less than 6 months? No Allergy to eggs, chicken, chicken feathers, or chicken dander? No Allergy to thimerosal (a preservative) or formaldehyde, gelatin? No History of severe reaction to any vaccine component or a previous dose of influenza vaccination? No History of Guillain-Lowell Syndrome within 6 weeks after a previous influenza vaccine? No Patient is not moderately or severely ill? No Current temperature greater or equal to 100.4F? No History of Bone Marrow Transplant prior 6 months or solid organ transplant in the past 3 months ? No History of fainting after a prior injection or medical procedure? No- ? If patient has fainted in the past, the CDC recommends sitting or lying down for 15 minutes after the vaccination. [] VERIFICATION color enhanced section Was the answer Yes for any of the above contraindications? No contraindications present. Acceptable to proceed with vaccine. Patient/guardian agrees the above answers are true to the best of their knowledge? Yes Flu vaccine information sheet given? Yes See immunization activity in [facility] for details of immunizations adminstered today. Patient age: [age] year old For The 5884-5964 Flu Season 6-35 months old: Fluzone 0.25 ml - IM (Preservative Free) 3 years of age: Fluzone 0.5 ml - IM (Preservative Free) 3 years and older: Fluzone 0.5 ml- IM-(with Preservatives) 65+ years old: 2-49 years old Fluzone High-Dose 0.5 ml - IM (Preservative Free) FLUMIST- intranasal REMEMBER: If patient is less than 9 years of age and this is the first vaccine of Influenza to be received in any flu season, they should receive a second dose in one months time. Referring Provider: ERMA PARKER III [[id number]] Allergies As of Date: 08/20/2018 Noted Allergy Reaction CODEINE 12/09/2009 5 - Intolerance Comments: Chest pain ACEON (PERINDOPRIL ERBUMINE) 11/02/2005 2 - Rash 3 - Cough beta blockers [Other] 10/07/2005 3 - Cough Comments: dry hacking cough hctz [Other] 10/07/2005 2 - Rash IMDUR (ISOSORBIDE) 03/06/2012 14 - Other: See Comments Comments: headaches LIPITOR (ATORVASTATIN CALCIUM) 10/21/2014 14 - Other: See Comments Comments: muscle cramps LISINOPRIL 10/07/2005 3 - Cough Comments: dry hacking cough SPIRONOLACTONE 03/21/2014 14 - Other: See Comments Comments: headache Date Reviewed: 07/12/2018 Reviewed by: Sandra ([facility]) DEE Lara - Fully Assessed Reason for Visit: Imm/Inj [58] Cmt: Flu Vaccine Primary Visit Diagnosis:Need for vaccination [Z23] Order(s):INFLUENZA SEASONAL HIGH DOSE AGE 65+ [10135SXB] Order #: [id number] Prescriptions as of 08/20/2018 Sig: FUROSEMIDE 40 MG TABLET TAKE ONE-HALF TABLET BY MOUTH* NAPROXEN 500 MG TABLET Take 1 tablet by mouth twice * ALENDRONATE 70 MG EFFERVESCEN* 70 mg by mouth weekly, taken * POTASSIUM CHLORIDE ER 20 MEQ * Take 1 tablet by mouth four t* GABAPENTIN 300 MG CAPSULE Take 1 capsule by mouth daily* LEVOTHYROXINE 88 MCG TABLET Take 1 tablet by mouth once d* LOSARTAN 100 MG TABLET Take 1 tablet by mouth once d* LABETALOL 100 MG TABLET Take 1 tablet by mouth twice * PANTOPRAZOLE 40 MG TABLET,DEL* Take 1 tablet by mouth once d* AMLODIPINE 5 MG TABLET Take 1 tablet by mouth once d* ISOSORBIDE MONONITRATE ER 30 * Take 0.5 tablets by mouth onc* TEMAZEPAM 30 MG CAPSULE Take 1 capsule by mouth at be* BIOTIN 2,500 MCG CAPSULE Take 1 capsule by mouth once * ASPIRIN 81 MG TABLET,DELAYED * Take 81 mg by mouth once ariane* LACTOBACIL RHAMNOSUS GG 10 BI* Take by mouth once daily. Problem List As Of Date 08/20/2018 Noted Resolved BENIGN HYPERTENSION [I10] More... More... PERS HX COLONIC POLYPS [Z86.010] More... 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] INVALID FOR* CERVICAL DISC DEGEN [M50.30] INVALID FOR* Degenerative arthritis of knee [M17.10] INVALID FOR* Trigeminal neuralgia [G50.0] INVALID FOR* Inadequate pelvic muscles [M62.9] INVALID FOR* Mixed stress and urge urinary incontinence [N39*INVALID FOR* Uterine prolapse [N81.4] INVALID FOR* Cystocele, midline [N81.11] INVALID FOR* Esophageal reflux [K21.9] INVALID FOR* Delayed gastric emptying [K30] INVALID FOR* Trochanteric bursitis of left hip [M70.62] INVALID FOR* Hypokalemia [E87.6] INVALID FOR* Thoracic radiculopathy due to degenerative join*INVALID FOR* Tethered spinal cord (HCC) [Q06.8] INVALID FOR* Abdominal pain [R10.9] INVALID FOR*09/01/2016 Poor sleep hygiene [Z72.821] INVALID FOR* Impaired fasting glucose [R73.01] INVALID FOR* Thoracic spine pain [M54.6] INVALID FOR* Lumbar disc disease with radiculopathy [M51.16] INVALID FOR* Venous insufficiency (chronic) (peripheral) [I8*INVALID FOR* Dvtrcli of intest, part unsp, w/o perf or absce*INVALID FOR* Dysphagia, unspecified [R13.10] INVALID FOR* History of pancreatitis [Z87.19] INVALID FOR* History of diverticulitis [Z87.19] INVALID FOR* Elevated alkaline phosphatase level [R74.8] INVALID FOR* Encounter Status:Closed by JULI RALPH LPN on 08/20/18 PROGRESS Observed: 08/20/2018 Status: COMPLETED Source: [place] 10:00 AM [facility] [place] REPOSITORY O ID: [id number] Author: Juli Ralph LPN Service: (none) Author Type: (none) Type: Progress Notes Filed: 08/20/2018 10:00 AM Note Text: 68 year old female here for INACTIVATED INFLUENZA VACCINE. 4928-3938 Season Patient is identified by name and date of : Yes [] CONTRAINDICATIONS color enhanced section Age less than 6 months? No Allergy to eggs, chicken, chicken feathers, or chicken dander? No Allergy to thimerosal (a preservative) or formaldehyde, gelatin? No History of severe reaction to any vaccine component or a previous dose of influenza vaccination? No History of Guillain-Lowell Syndrome within 6 weeks after a previous influenza vaccine? No Patient is not moderately or severely ill? No Current temperature greater or equal to 100.4F? No History of Bone Marrow Transplant prior 6 months or solid organ transplant in the past 3 months ? No History of fainting after a prior injection or medical procedure? No- ? If patient has fainted in the past, the CDC recommends sitting or lying down for 15 minutes after the vaccination. [] VERIFICATION color enhanced section Was the answer Yes for any of the above contraindications? No contraindications present. Acceptable to proceed with vaccine. Patient/guardian agrees the above answers are true to the best of their knowledge? Yes Flu vaccine information sheet given? Yes See immunization activity in [facility] for details of immunizations adminstered today. Patient age: [age] year old For The 9805-3685 Flu Season 6-35 months old: Fluzone 0.25 ml - IM (Preservative Free) 3 years of age: Fluzone 0.5 ml - IM (Preservative Free) 3 years and older: Fluzone 0.5 ml- IM-(with Preservatives) 65+ years old: 2-49 years old Fluzone High-Dose 0.5 ml - IM (Preservative Free) FLUMIST- intranasal REMEMBER: If patient is less than 9 years of age and this is the first vaccine of Influenza to be received in any flu season, they should receive a second dose in one months time. PROGRESS Observed: 07/12/2018 Status: COMPLETED Source: [place] 3:23 PM [facility] [place] REPOSITORY O ID: [id number] Author: Erma Parker III Service: (none) Author Type: Physician Type: Progress Notes Filed: 07/12/2018 6:53 PM Note Text: SUBJECTIVE: This is a 68 year old female that is here today for ER Follow Up. ER f/u 07/06. reports reviewed. She hurt her R lat ribs while reaching into a freezer 5 wks ago. But on 07/06 she noted increasing pain R lat rib cage radiating to R post chest. CT abd neg. LFTs normal except for alkaline phosphatase 120. (Previous values had been normal.) Tx with naprosyn with benefit. She feels something with forward flexion. Not pleuritic. With further questioning she indicates that the abdominal pain started after her gallbladder surgery. The CT scan report was reviewed in detail demonstrating surgical clips in the area of the cholecystectomy. He did discuss that perhaps the pain is caused from postoperative pain/connective tissue/scar. It is also noted that the CT scan did not show any evidence of fatty liver disease. 2. tethered spinal cord T7. The patient is not sure actually what symptoms, if any, that she has had from this diagnosis. It appeared to be an incidental finding when a CT scan was obtained to diagnose the epigastric pain. She did see a neurologist who instructed her to observe for possible change in control of bowel or bladder function. 3. She states that she stopped taking Fosamax because it seemed to cause pain in her shoulders and legs. The pains resolved quickly after she stopped taking the Fosamax. Bone mineral density test results reviewed indicating osteoporosis. PAST MEDICAL HISTORY Diagnosis Date - Contact dermatitis and other eczema - Degenerative arthritis of knee 05/24/2011 - Delayed gastric emptying 07/24/2012 - Diarrhea - Diverticulosis of colon (without mention of hemorrhage) Diverticulosis - Essential hypertension, benign - Hypokalemia 09/25/2012 - Impaired fasting glucose 11/19/2015 - Inadequate pelvic muscles 01/17/2012 - Lumbar disc disease with radiculopathy 09/01/2016 - thyrotoxicosis - Other osteoporosis 12/21/06 - Personal history of colonic polyps Colon polyps - Tethering of spinal cord (HCC) 2014 - Trigeminal neuralgia 10/11/2011 - Trochanteric bursitis of left hip 07/24/2012 - Unspecified hemorrhoids without mention of complication Hemorrhoids Current Outpatient Prescriptions on File Prior to Visit: potassium chloride ER (K-DUR, KLOR-CON) 20 mEq tablet Take 1 tablet by mouth four times daily. levothyroxine (SYNTHROID) 88 mcg tablet Take 1 tablet by mouth once daily. losartan (COZAAR) 100 mg tablet Take 1 tablet by mouth once daily. labetalol (TRANDATE) 100 mg tablet Take 1 tablet by mouth twice daily. pantoprazole DR (PROTONIX) 40 mg tablet Take 1 tablet by mouth once daily. Take on empty stomach, 1/2 hr before meal. amLODIPine (NORVASC) 5 mg tablet Take 1 tablet by mouth once daily. isosorbide mononitrate ER (IMDUR) 30 mg 24 hr tablet Take 0.5 tablets by mouth once daily. temazepam (RESTORIL) 30 mg cap Take 1 capsule by mouth at bedtime as needed. FOR SLEEP. furosemide (LASIX) 20 mg tablet Take 1 tablet by mouth twice daily. Biotin 2,500 mcg cap Take 1 capsule by mouth once daily. aspirin, enteric coated (ASPIRIN, ENTERIC COATED) 81 mg EC tablet Take 81 mg by mouth once daily. lactobacillus rhamnosus-Inulin (CULTURELLE PROBIOTICS) 10 billion cell -245 mg cpSP Take by mouth once daily. gabapentin (NEURONTIN) 300 mg capsule Take 1 capsule by mouth daily at bedtime for 90 days. No current facility-administered medications on file prior to visit. FAMILY HISTORY Problem Relation Age of Onset - Diabetes Mother - Heart Mother - Stroke Mother - Hypertension Mother - Hypertension Sister - Heart Sister - Hypertension Sister - Heart Sister - Hypertension Brother - Heart Brother - Hypertension Brother - Cancer Brother - Breast Cancer Maternal Aunt - Cancer Paternal Grandfather skin Social History Substance Use Topics - Smoking status: Former Smoker Packs/day: 0.10 Years: 1.00 Types: Cigarettes - Smokeless tobacco: Never Used Comment: Smoked 1 year or less in 1980s. Spouse was smoker in home for 39 years. Father smoked in childhood home. - Alcohol use No BP 138/68 Pulse (!) 56 Resp 16 Wt 83 kg (183 lb) BMI 34.58 kg/m? OBJECTIVE: APPEARANCE Well appearing, alert, in no acute distress, well-hydrated, well nourished. NECK Supple, no adenopathy; thyroid symmetric, normal size, no bruits. No localized tenderness along the dorsal spine, including the area of T7 HEART RRR with normal S1 and S2, no murmurs, no gallops, no JVD appreciated LUNG clear to auscultation ABDOMEN localized tenderness in the epigastrium and especially in the right upper quadrant and right lateral abdomen just inferior to the rib margins. There is also some tenderness to percussion of the right CVA. No hepatosplenomegaly or other masses noted. ASSESSMENT: Suspect postoperative adhesions causing the abdominal pain Tethered spinal cord T7?asymptomatic Osteoporosis with intolerance to Fosamax Elevated alkaline phosphatase of uncertain etiology PLAN: calcium 600mg and vitamin D 400 units twice/day stay off of fosamax due to muscle/bone pain actonel 35mg once /wk same other medications naprosyn 500mg twice/day as needed for pain SYDNI Otoole MD, III MD CNOV Observed: 07/12/2018 Status: COMPLETED Source: [place] 3:00 PM [facility] REPOSITORY Office Visit (FAMPWS) ALBERTO STRICKLAND ([id number]) 1950 F Date Time Provider Department 07/12/18 3:00 PM ERMA PARKER III During your visit today, we recorded the following information about you: Pulse Respiration Blood pressure Weight 56/minute 16/minute 138/68 83 kg Erma Parker III MD 07/12/2018 6:53 PM Signed SUBJECTIVE: This is a 68 year old female that is here today for ER Follow Up. ER f/u 07/06. reports reviewed. She hurt her R lat ribs while reaching into a freezer 5 wks ago. But on 07/06 she noted increasing pain R lat rib cage radiating to R post chest. CT abd neg. LFTs normal except for alkaline phosphatase 120. (Previous values had been normal.) Tx with naprosyn with benefit. She feels something with forward flexion. Not pleuritic. With further questioning she indicates that the abdominal pain started after her gallbladder surgery. The CT scan report was reviewed in detail demonstrating surgical clips in the area of the cholecystectomy. He did discuss that perhaps the pain is caused from postoperative pain/connective tissue/scar. It is also noted that the CT scan did not show any evidence of fatty liver disease. 2. tethered spinal cord T7. The patient is not sure actually what symptoms, if any, that she has had from this diagnosis. It appeared to be an incidental finding when a CT scan was obtained to diagnose the epigastric pain. She did see a neurologist who instructed her to observe for possible change in control of bowel or bladder function. 3. She states that she stopped taking Fosamax because it seemed to cause pain in her shoulders and legs. The pains resolved quickly after she stopped taking the Fosamax. Bone mineral density test results reviewed indicating osteoporosis. PAST MEDICAL HISTORY Diagnosis Date - Contact dermatitis and other eczema - Degenerative arthritis of knee 05/24/2011 - Delayed gastric emptying 07/24/2012 - Diarrhea - Diverticulosis of colon (without mention of hemorrhage) Diverticulosis - Essential hypertension, benign - Hypokalemia 09/25/2012 - Impaired fasting glucose 11/19/2015 - Inadequate pelvic muscles 01/17/2012 - Lumbar disc disease with radiculopathy 09/01/2016 - thyrotoxicosis - Other osteoporosis 12/21/06 - Personal history of colonic polyps Colon polyps - Tethering of spinal cord (HCC) 2014 - Trigeminal neuralgia 10/11/2011 - Trochanteric bursitis of left hip 07/24/2012 - Unspecified hemorrhoids without mention of complication Hemorrhoids Current Outpatient Prescriptions on File Prior to Visit: potassium chloride ER (K-DUR, KLOR-CON) 20 mEq tablet Take 1 tablet by mouth four times daily. levothyroxine (SYNTHROID) 88 mcg tablet Take 1 tablet by mouth once daily. losartan (COZAAR) 100 mg tablet Take 1 tablet by mouth once daily. labetalol (TRANDATE) 100 mg tablet Take 1 tablet by mouth twice daily. pantoprazole DR (PROTONIX) 40 mg tablet Take 1 tablet by mouth once daily. Take on empty stomach, 1/2 hr before meal. amLODIPine (NORVASC) 5 mg tablet Take 1 tablet by mouth once daily. isosorbide mononitrate ER (IMDUR) 30 mg 24 hr tablet Take 0.5 tablets by mouth once daily. temazepam (RESTORIL) 30 mg cap Take 1 capsule by mouth at bedtime as needed. FOR SLEEP. furosemide (LASIX) 20 mg tablet Take 1 tablet by mouth twice daily. Biotin 2,500 mcg cap Take 1 capsule by mouth once daily. aspirin, enteric coated (ASPIRIN, ENTERIC COATED) 81 mg EC tablet Take 81 mg by mouth once daily. lactobacillus rhamnosus-Inulin (CULTURELLE PROBIOTICS) 10 billion cell -245 mg cpSP Take by mouth once daily. gabapentin (NEURONTIN) 300 mg capsule Take 1 capsule by mouth daily at bedtime for 90 days. No current facility-administered medications on file prior to visit. FAMILY HISTORY Problem Relation Age of Onset - Diabetes Mother - Heart Mother - Stroke Mother - Hypertension Mother - Hypertension Sister - Heart Sister - Hypertension Sister - Heart Sister - Hypertension Brother - Heart Brother - Hypertension Brother - Cancer Brother - Breast Cancer Maternal Aunt - Cancer Paternal Grandfather skin Social History Substance Use Topics - Smoking status: Former Smoker Packs/day: 0.10 Years: 1.00 Types: Cigarettes - Smokeless tobacco: Never Used Comment: Smoked 1 year or less in 1980s. Spouse was smoker in home for 39 years. Father smoked in childhood home. - Alcohol use No BP 138/68 Pulse (!) 56 Resp 16 Wt 83 kg (183 lb) BMI 34.58 kg/m? OBJECTIVE: APPEARANCE Well appearing, alert, in no acute distress, well- hydrated, well nourished. NECK Supple, no adenopathy; thyroid symmetric, normal size, no bruits. No localized tenderness along the dorsal spine, including the area of T7 HEART RRR with normal S1 and S2, no murmurs, no gallops, no JVD appreciated LUNG clear to auscultation ABDOMEN localized tenderness in the epigastrium and especially in the right upper quadrant and right lateral abdomen just inferior to the rib margins. There is also some tenderness to percussion of the right CVA. No hepatosplenomegaly or other masses noted. ASSESSMENT: Suspect postoperative adhesions causing the abdominal pain Tethered spinal cord T7?asymptomatic Osteoporosis with intolerance to Fosamax Elevated alkaline phosphatase of uncertain etiology PLAN: calcium 600mg and vitamin D 400 units twice/day stay off of fosamax due to muscle/bone pain actonel 35mg once /wk same other medications naprosyn 500mg twice/day as needed for pain Erma Parker, III MD Erma Parker III MD Erma Parker III MD 07/12/2018 3:49 PM Signed PLAN: calcium 600mg and vitamin D 400 units twice/day stay off of fosamax due to muscle/bone pain actonel 35mg once /wk same other medications naprosyn 500mg twice/day as needed for pain Erma Parker III MD Referring Provider: SELF [200] Allergies As of Date: 07/12/2018 Noted Allergy Reaction CODEINE 12/09/2009 5 - Intolerance Comments: Chest pain ACEON (PERINDOPRIL ERBUMINE) 11/02/2005 2 - Rash 3 - Cough beta blockers [Other] 10/07/2005 3 - Cough Comments: dry hacking cough hctz [Other] 10/07/2005 2 - Rash IMDUR (ISOSORBIDE) 03/06/2012 14 - Other: See Comments Comments: headaches LIPITOR (ATORVASTATIN CALCIUM) 10/21/2014 14 - Other: See Comments Comments: muscle cramps LISINOPRIL 10/07/2005 3 - Cough Comments: dry hacking cough SPIRONOLACTONE 03/21/2014 14 - Other: See Comments Comments: headache Date Reviewed: 07/12/2018 Reviewed by: Sandra ([facility]) DEE Lara - Fully Assessed Reason for Visit: Pain under right rib towards the back [Other] Cmt: side is sore AND tender Primary Visit Diagnosis:Essential hypertension, benign [I10] Other Visit Diagnoses:Age-related osteoporosis without current pathological fracture [M81.0] Tethered spinal cord (HCC) [Q06.8] Elevated alkaline phosphatase level [R74.8] Order(s):risedronate (ACTONEL) 35 mg tabletTake 1 tablet by mouth once each week. Take with a full glass of water on an empty stomach; do NOT lie down for 30minutes.Disp: 4 tabletRfl: 11 ALKALINE PHOSPHATASE [SQALKP] Order #: [id number] FUTURE Prescriptions as of 07/12/2018 Sig: POTASSIUM CHLORIDE ER 20 MEQ * Take 1 tablet by mouth four t* LEVOTHYROXINE 88 MCG TABLET Take 1 tablet by mouth once d* LOSARTAN 100 MG TABLET Take 1 tablet by mouth once d* LABETALOL 100 MG TABLET Take 1 tablet by mouth twice * PANTOPRAZOLE 40 MG TABLET,DEL* Take 1 tablet by mouth once d* AMLODIPINE 5 MG TABLET Take 1 tablet by mouth once d* ISOSORBIDE MONONITRATE ER 30 * Take 0.5 tablets by mouth onc* TEMAZEPAM 30 MG CAPSULE Take 1 capsule by mouth at be* FUROSEMIDE 20 MG TABLET Take 1 tablet by mouth twice * BIOTIN 2,500 MCG CAPSULE Take 1 capsule by mouth once * ASPIRIN 81 MG TABLET,DELAYED * Take 81 mg by mouth once ariane* LACTOBACIL RHAMNOSUS GG 10 BI* Take by mouth once daily. RISEDRONATE 35 MG TABLET Take 1 tablet by mouth once e* GABAPENTIN 300 MG CAPSULE Take 1 capsule by mouth daily* Problem List As Of Date 07/12/2018 Noted Resolved BENIGN HYPERTENSION [I10] More... More... PERS HX COLONIC POLYPS [Z86.010] More... 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] INVALID FOR* CERVICAL DISC DEGEN [M50.30] INVALID FOR* Degenerative arthritis of knee [M17.10] INVALID FOR* Trigeminal neuralgia [G50.0] INVALID FOR* Inadequate pelvic muscles [M62.9] INVALID FOR* Mixed stress and urge urinary incontinence [N39*INVALID FOR* Uterine prolapse [N81.4] INVALID FOR* Cystocele, midline [N81.11] INVALID FOR* Esophageal reflux [K21.9] INVALID FOR* Delayed gastric emptying [K30] INVALID FOR* Trochanteric bursitis of left hip [M70.62] INVALID FOR* Hypokalemia [E87.6] INVALID FOR* Thoracic radiculopathy due to degenerative join*INVALID FOR* Tethered spinal cord (HCC) [Q06.8] INVALID FOR* Abdominal pain [R10.9] INVALID FOR*09/01/2016 Poor sleep hygiene [Z72.821] INVALID FOR* Impaired fasting glucose [R73.01] INVALID FOR* Thoracic spine pain [M54.6] INVALID FOR* Lumbar disc disease with radiculopathy [M51.16] INVALID FOR* Venous insufficiency (chronic) (peripheral) [I8*INVALID FOR* Dvtrcli of intest, part unsp, w/o perf or absce*INVALID FOR* Dysphagia, unspecified [R13.10] INVALID FOR* History of pancreatitis [Z87.19] INVALID FOR* History of diverticulitis [Z87.19] INVALID FOR* Elevated alkaline phosphatase level [R74.8] INVALID FOR* Other instructions from your clinician: PLAN: calcium 600mg and vitamin D 400 units twice/day stay off of fosamax due to muscle/bone pain actonel 35mg once /wk same other medications naprosyn 500mg twice/day as needed for pain Erma Parker III MD Prescriptions ordered this encounter Disp Refills Start End RISEDRONATE 35 MG TABLET 4 ta* 11 07/12/2018 Route: ORAL Sig: Take 1 tablet by mouth once each week. Take with a full glass of water on an empty stomach; do NOT lie down for 30minutes. Medications Discontinued During This Encounter alendronate (FOSAMAX) 70 mg tablet 12 t* 3 04/04/2018 07/12/2018 Route: ORAL Sig: Take 1 tablet by mouth once each week. Take with a full glass of water, on an empty stomach; do NOT lie down for 30minutes. Patient not taking: Reported on 07/12/2018 Disc: Discontinued by Patient Encounter Status:Closed by ERMA PARKER III, MD on 07/12/18 EMERGENCY DEPARTMENT Observed: 07/06/2018 Status: F Source: [place] SUMMARY 4:08 PM [facility] Medical Records Department [address] [place] [id number] Emergency Department Summary 07/06/18 0929 MR#: [id number] Acct: [id number] Name: ALBERTO STRICKLAND Rep #: [id number] : 1950 68 From: Cyndi Carlos MD PCP: Erma Parker III, MD Status: DEP ER - ER Visit Summary Date of Service: 07/06/18 Chief Complaint: Right-sided abdominal pain History of Present Illness: The patient is a 68 F with a one- week history of right upper quadrant abdominal pain. She denies nausea or vomiting. She denies shortness of breath. Patient states she leaned over a freezer approximately 4 weeks ago and felt a pop in her right lower ribs. Really had not been bothering her much until the past 1 week. Patient has had prior cholecystomy. She is history of diverticulitis, pancreatitis, cyst on her pancreas, hypertension, hypothyroidism. Physical Examination: Blood pressure is 157/68, other vitals normal. Patient sitting upright in bed. She is in no acute distress. Head and neck examination is unremarkable. Heart is regular rate and rhythm. Lung sounds are clear. She has reproducible tenderness in the right lower ribs. There is no crepitus. Abdomen is soft with tenderness in the right upper quadrant. There is no guarding or rebound. Active bowel sounds are noted throughout. Test Results: CBC and chemistry studies normal. LFTs and lipase are normal. Urinalysis is normal. Two-view chest x-ray shows no acute pathology. There is prominent hiatal hernia noted. There is mild anterior wedging of T5 down to T9 which may be related to remote injury. CT flank shows no evidence of bowel obstruction or acute renal pathology. Postcholecystectomy changes noted. Emergency Department Course and Treatment: Patient declines anything for pain here. She is given IV fluids. Test results were discussed with her. She is asking only for some naproxen at home. She will return for worsening symptoms or other concerns. Treatment Plan: [] Disposition: Discharge Impression: Abdominal pain, uncertain etiology This note was generated with Panoratio dictation software. It may contain incorrect words, spelling, and punctuation that were not noted in review of the chart prior to signing ED Disposition - Plan for ED Patient: Chief Complaint: Abd Pain Referrals: Erma Parker III, MD [Primary Care Provider] - What to do if you have Problems For any increased pain, shortness of breath, bleeding, nausea or vomiting, chest pain, or any unexpected problems, contact your Primary Care Provider. Call [facility] ([phone]) or report to the closest Emergency Room. Call 911 if necessary. 07/06/18 7353 <Electronically signed by Cyndi Carlos MD> Date Cyndi Carlos MD Cosigner Signature (If Indicated): Date CC: Erma Parker III, MD DISCHARGE INSTRUCTION Observed: 07/06/2018 Status: F Source: [place] 12:24 PM [facility] REPOSITORY [facility] Medical Records Department [address] [address] Discharge Instruction 07/06/18 1223 MR#: [id number] Acct: [id number] Name: ALBERTO STRICKLAND Rep #: [id number] : 1950 68 From: Cyndi Carlos MD PCP: Erma Parker III, MD Status: REG ER ED Disposition - Plan for ED Patient: Disposition: Home or Assisted Living Chief Complaint: Abd Pain Instructions: ED Abdominal Pain Unkn Cause Prescriptions: Naproxen [Naprosyn] 500 mg PO BID PRN PRN #20 tablet PRN Reason: Pain Referrals: Erma Parker III, MD [Primary Care Provider] - 1-2 Weeks What to do if you have Problems For any increased pain, shortness of breath, bleeding, nausea or vomiting, chest pain, or any unexpected problems, contact your Primary Care Provider. Call [facility] ([phone]) or report to the closest Emergency Room. Call 911 if necessary. 07/06/18 1224 <Electronically signed by Cyndi Carlos MD> Date Cyndi Carlos MD Cosigner Signature (If Indicated): Date CC: Erma Parker III, MD URINALYSIS, COMPLETE Collected: 07/06/2018 Status: F Source: [place] 10:46 AM [facility] REPOSITORY Order Comment: Has pt arrived? Y How was Urine Obtained? CLEAN CATCH TYPE CODE TESTS RESULT OUT OF RANGE REFERENCE UNITS LAB L400.3000 Yellow COLOR Normal Straw LAB L400.3050 Clear Normal CLARITY Clear LAB L400.3200 Normal mg/dl Normal GLUCOSE, UR Normal LAB L400.3300 Negative mg/dL Normal BILIRUBIN URINE Negative LAB L400.3400 Negative mg/dl Normal KETONE UR Negative LAB L400.3465 1.002-1.030 Normal SP.GR. DIPSTX 1.005 LAB L400.3550 5.0 - 8.0 pH UR Normal 7.0 LAB L400.3600 Negative mg/dl PROT Normal DIPSTX Negative LAB L400.3700 Normal mg/dl Normal UROBILI Normal LAB L400.3750 Negative Normal NITRITE UR Negative LAB L400.3780 Negative /ul Normal OCCULT BLOOD-UR Negative LAB L400.3800 Negative /ul High LEUK ESTERASE 500 LAB L400.4050 0-5 /hpf WBC Normal 0-5 SEEN LAB L400.4100 0-5 /hpf 0 Normal RBC-UA SEEN LAB L400.4150 5-10 /hpf SQUAM Normal EPI 0-5 SEEN LAB L400.4300 None Seen /hpf 0 Normal BACTERIA SEEN LAB L400.4350 <or=2+ /hpf 0 Normal MUCUS, URINE SEEN Performed By: #### L400.0001 #### [facility] [address] [place], [address] ABDOMEN/PELVIS WITHOUT Observed: 07/06/2018 Status: F Source: [place] CONT 10:29 AM [facility] REPOSITORY [facility] Imaging Services [address] [place] [address] Abdomen/Pelvis without Cont MR#: [id number] Acct: [id number] Name: ALBERTO STRICKLAND Rep #: [id number] : 1950 F 68 From: Jenaro Cotto DO PCP: Erma Parker III, MD Status: REG ER Study: Abdomen/Pelvis without Cont Date of Exam: 07/06/18 Exam# [id number] Ordering Dr: Cyndi Carlos MD STUDY: CT ABDOMEN AND PELVIS WITHOUT CONTRAST REASON FOR EXAM: Female, 68 years old. Right sided abdominal pain RADIATION DOSAGE (If Supplied By Facility): CTDIvol = ( 11.97 ) mGy, DLP = ( 562.09 ) mGycm TECHNIQUE: Transaxial images were obtained from the dome of the diaphragm to the symphysis pubis without oral contrast, and without intravenous contrast. Sagittal and coronal images were reconstructed. Individualized dose optimization techniques were used for this CT. COMPARISON: 03/29/13. FINDINGS: The visualized lung bases are unremarkable. The visualized portions of the heart are within normal limits. Evaluation of the abdominal viscera is limited in the absence of intravenous contrast. Normal liver. There are surgical clips in the gallbladder fossa consistent with a prior cholecystectomy. Normal spleen. Normal pancreas. Normal bilateral adrenal glands. Normal right kidney. Normal left kidney. There is a moderate sized hiatal hernia. Normal small intestine. Normal colon. The appendix is visualized and appears normal. There is mild atherosclerotic calcification of the abdominal aorta. Normal inferior vena cava. Normal retroperitoneum. The bladder floor projects below the pubic symphysis, suggesting prolapse. There is atrophy of the uterus. Dystrophic calcifications are seen within the uterus. There is a small umbilical hernia containing fat. There is mild degenerative change at L5-S1. CT/Abdomen/Pelvis without Cont IMPRESSION: No bowel obstruction or acute renal pathology. Postoperative changes of cholecystectomy. Additional findings, as detailed above. Electronically Signed: Jenaro Cotto DO at 11:23 EDT Tel , Service support , CC: Erma Parker III, MD; Cyndi Carlos MD [employer] Operator: Signed CBC W/DIFF, AUTOMATED Collected: 07/06/2018 Status: F Source: [place] 9:42 AM [facility] REPOSITORY TYPE CODE TESTS RESULT OUT OF RANGE REFERENCE UNITS LAB L100.1000 4.4-11.0 K/mm3 Normal WBC 9.0 LAB L100.1200 4.2-5.4 M/mm3 Normal RBC 4.68 LAB L100.1300 12.0-15.0 g/dl Normal HGB 13.5 LAB L100.1400 37-47 % Normal HCT 41.0 LAB L100.1500 81-99 fL Normal MCV 87.6 LAB L100.1600 27.0-32.0 pg Normal MCH 28.8 LAB L100.1700 32-36 g/gl Normal MCHC 32.9 LAB L100.1810 11.6-14.6 % Normal RDW CV 13.5 LAB L100.1820 35.1-43.9 fl Normal RDW SD 43.0 LAB L100.1900 150-450 K/mm3 Normal PLT 329 LAB L100.2000 6.2-12.0 fl Normal MPV 9.5 LAB L100.2100 47-70 % Normal NEUT% 66.0 LAB L100.2200 19-41 % Normal LY% 22.6 LAB L100.2300 0-10 % Normal MONO% 7.2 LAB L100.2400 0-5 % Normal EO% 3.1 LAB L100.2500 0-1 % Normal BASO% 0.9 LAB L100.2550 0.0-0.9 % Normal IM GRAN % 0.200 Result Comment: IG% - Immature Granulocytes (promyelocytes, myelocytes and metamyelocytes) > 1% indicates that a LEFT SHIFT is Present. LAB L100.2620 2.0-7.7 X10 3/uL Normal Absolute Neut 5.9 LAB L100.2720 0.83-4.51 X10 3/ul Normal Absolute Lymph 2.02 Performed By: #### L100.0100 #### [facility] [address] [place], [address] BASIC METABOLIC Collected: 07/06/2018 Status: F Source: [place] PROFILE ([facility]) 9:42 AM [facility] REPOSITORY TYPE CODE TESTS RESULT OUT OF RANGE REFERENCE UNITS LAB L501.0100 74-106 mg/dL Normal GLU 94 Result Comment: Please note revised GLUCOSE reference range effective 2017. LAB L501.1000 7-18 mg/dL Normal BUN 11 LAB L501.1100 0.55-1.02 mg/dL Normal CREAT,SERUM 0.98 Result Comment: The validity of the calculated GFR AND GFRAA in patients over 70 years has not been determined. Clinical correlation is essential. LAB L501.1110 >60 mL/min Normal EST GFR 60 Result Comment: Non- GFR Calc LAB L501.1115 >60 mL/min Normal EST GFR - AA 72 Result Comment: GFR Calc LAB L501.1255 ml/min Normal Estimated CRCL 40.31 LAB L501.1300 10-20 RATIO Normal BUN/CRE 11.2 LAB L501.2200 8.5-10 mg/dL Normal .1 CA 8.5 LAB L501.5300 136-14 mmol/L Normal 5 NA 139 LAB L501.5600 3.5-5. mmol/L Normal 1 K 4.1 LAB L501.5900 98-107 mmol/L Normal CL 103 LAB L501.6100 21.0-3 mmol/L Normal 2.0 CO2 27.0 LAB L501.6200 5-15 Normal GAP 9 Performed By: #### L500.2500, L500.3400, L501.2450 #### [facility] [address] [place], [address] LIVER PROFILE Collected: 07/06/2018 Status: F Source: [place] 9:42 AM [facility] REPOSITORY TYPE CODE TESTS RESULT OUT OF RANGE REFERENCE UNITS LAB L501.1500 6.4-8.2 g/dL Normal T PROT 7.5 LAB L501.1800 3.2-5.0 g/dL Normal ALB 3.5 LAB L501.1950 2.2-4.2 g/dL Normal GLOB 4.0 LAB L501.4100 15-37 U/L Normal AST 17 LAB L501.4305 45-117 U/L High ALK P 120 LAB L501.4405 13-56 U/L Normal ALT 26 LAB L501.4600 0.20-1.00 mg/dL Normal T BILI 0.40 LAB L501.4700 0.00-0.30 mg/dL Normal D BILI 0.08 Performed By: #### L500.2500, L500.3400, L501.2450 #### [facility] [address] [place], [address] LIPASE Collected: 07/06/2018 Status: F Source: [place] 9:42 AM [facility] REPOSITORY TYPE CODE TESTS RESULT OUT OF RANGE REFERENCE UNITS LAB L501.2450 73-393 U/L Normal LIPASE 136 Performed By: #### L500.2500, L500.3400, L501.2450 #### [facility] [address] [place], [address] CHEST PA AND LATERAL Observed: 07/06/2018 Status: F Source: NATI 9:19 AM [facility] REPOSITORY [facility] Imaging Services [address] [place] [address] Chest PA and Lateral MR#: [id number] Acct: [id number] Name: ALBERTO STRICKLAND Rep #: [id number] : 1950 F 68 From: Irving Whipple MD PCP: Erma Parker III, MD Status: REG ER Study: Chest PA and Lateral Date of Exam: 07/06/18 Exam# [id number] Ordering Dr: Cyndi Carlos MD STUDY: X-RAY CHEST REASON FOR EXAM: Female, 68 years old. Bent over freezer x4 weeks. Pain lower lateral right side x1 week. TECHNIQUE: PA and lateral views. COMPARISON: None. FINDINGS: The lungs are clear and expanded. There is no demonstrated pleural abnormality. Normal size heart. Normal mediastinum and jackelin. Normal visualized pulmonary arteries. Normal visualized aortic arch and descending thoracic aorta. Minimal anterior wedging of T5, T6, T7, T8 and T9 vertebral bodies may be secondary to remote injury. Normal visualized ribs, clavicles, and shoulders. Prominent hiatal hernia. RAD/Chest PA and Lateral IMPRESSION: 1. No acute cardiopulmonary pathology. 2. Prominent hiatal hernia. 3. Mild anterior wedging of T5 down to T9 vertebral bodies may be secondary to remote injury. Electronically Signed: Irving Whipple MD at 10:17 EDT , Service support , CC: Erma Parker III, MD; Cyndi Carlos MD [employer] Operator: Signed PROGRESS Observed: 07/06/2018 Status: COMPLETED Source: [place] 8:55 AM [facility] RE[facility] HNO ID: [id number] Author: Vaishnavi Ferreira Service: (none) Author Type: Nurse Practitioner Type: Progress Notes Filed: 07/06/2018 9:29 AM Note Text: Subjective The history is provided by the patient. No language pathologist was used. RE Strickland is a 68 year old female who presents today for CC of right upper quadrant, right rib pain. Onset/Duration: 2 weeks and is worsening. Alleviating/Treatment: None, tried topical rub, and advil Aggravating: Movement. Risk factors: Was leaning over freezer, and felt discomfort. BP 138/78 Pulse 76 Temp 36.2 ?C (97.1 ?F) (Tympanic) Resp 16 Wt 82.1 kg (181 lb) BMI 34.20 kg/m? ALLERGIES Allergen Reactions - Codeine Intolerance Chest pain - Aceon [Perindopril * Rash, Cough - Beta Blockers [Othe* Cough dry hacking cough - Hctz [Other] Rash - Imdur [Isosorbide] Other: See Comments headaches - Lipitor [Atorvastat* Other: See Comments muscle cramps - Lisinopril Cough dry hacking cough - Spironolactone Other: See Comments headache ACTIVE PROBLEM LIST Essential Hypertension, Benign Personal History of Colonic Polyps Postablative Hypothyroidism Osteoporosis POLYP STOMACH Degeneration of Cervical Intervertebral Disc Degenerative Arthritis of Knee Trigeminal Neuralgia Inadequate Pelvic Muscles Mixed Stress and Urge Urinary Incontinence Uterine Prolapse Cystocele, Midline Esophageal Reflux Delayed Gastric Emptying Trochanteric Bursitis of Left Hip Hypokalemia Thoracic Radiculopathy Due to Degenerative Joint Disease of Spine Lumbar Radiculopathy Tethered Spinal Cord (Hcc) Poor Sleep Hygiene Impaired Fasting Glucose Thoracic Spine Pain Lumbar Disc Disease With Radiculopathy Venous Insufficiency (Chronic) (Peripheral) Family History Problem Relation Age of Onset - Diabetes Mother - Heart Mother - Stroke Mother - Hypertension Mother - Hypertension Sister - Heart Sister - Hypertension Sister - Heart Sister - Hypertension Brother - Heart Brother - Hypertension Brother - Cancer Brother - Breast Cancer Maternal Aunt - Cancer Paternal Grandfather skin Social History Marital status: Spouse name: Morris Years of education: 10 Number of children: 2 Occupational History Occupation Employer Comment 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 Spouse was smoker in home for 39 years. Father smoked in childhood home. Alcohol use: No Drug use: No Sexual activity: No Comment: Tubal Ligation, Postmenopausal Other Topics Concern Sleep Concern Yes Stress Concern Yes PAST MEDICAL HISTORY Diagnosis Date - Contact dermatitis and other eczema - Degenerative arthritis of knee 05/24/2011 - Delayed gastric emptying 07/24/2012 - Diarrhea - Diverticulosis of colon (without mention of hemorrhage) Diverticulosis - Essential hypertension, benign - Hypokalemia 09/25/2012 - Impaired fasting glucose 11/19/2015 - Inadequate pelvic muscles 01/17/2012 - Lumbar disc disease with radiculopathy 09/01/2016 - thyrotoxicosis - Other osteoporosis 12/21/06 - Personal history of colonic polyps Colon polyps - Tethering of spinal cord (HCC) 2014 - Trigeminal neuralgia 10/11/2011 - Trochanteric bursitis of left hip 07/24/2012 - Unspecified hemorrhoids without mention of complication Hemorrhoids Review of Systems Constitutional: Negative for chills, fever and malaise/fatigue. Gastrointestinal: Positive for abdominal pain (ruq). Musculoskeletal: Positive for joint pain (right ribs). Negative for myalgias. Skin: Negative for rash. Neurological: Negative for tingling and headaches. Objective Physical Exam Constitutional: She is oriented to person, place, and time and well-developed, well-nourished, and in no distress. No distress. HENT: Head: Normocephalic and atraumatic. Eyes: Pupils are equal, round, and reactive to light. Conjunctivae and EOM are normal. Neck: Normal range of motion. Neck supple. Pulmonary/Chest: Effort normal and breath sounds normal. She has no decreased breath sounds. She has no wheezes. She has no rhonchi. She has no rales. Abdominal: Normal appearance and bowel sounds are normal. She exhibits no abdominal bruit, no pulsatile midline mass and no mass. There is no hepatosplenomegaly. There is tenderness in the right upper quadrant. There is no rigidity, no rebound, no guarding, no CVA tenderness, no tenderness at McBurney's point and negative Ruggiero's sign. Neurological: She is alert and oriented to person, place, and time. Skin: Skin is warm and dry. Psychiatric: Affect normal. Nursing note and vitals reviewed. ASSESSMENT/PLAN: 1. Rib pain on right side - ICD9: 786.50, ICD10: R07.81 Due to nature of patient's complaint and lack of investigative tools available at [facility], recommend patient be seen at nearest ED for further work up of pain. Patient given directions to [facility], report called and red card sent with patient. - XR RIBS/CHEST 3V AP RIB/OBLS/CXR RT Diagnosis and treatment plan were discussed and questions were answered to the patient's satisfaction. Pt acknowledged understanding of concepts and follow up plan. Specific signs and symptoms that would indicate the need for higher level of care were discussed in detail warranting prompt ER evaluation. Vaishnavi Ferreira APRN.CNP CNOV Observed: 07/06/2018 Status: COMPLETED Source: [place] 8:45 AM [facility] REPOSITORY Office Visit (WSTR) ALBERTO STRICKLAND ([id number]) 1950 F Date Time Provider Department 07/06/18 8:45 AM VAISHNAVI FERREIRA (CONSTANTINO) WSTR During your visit today, we recorded the following information about you: Temperature Pulse Respiration Blood pressure 97.1 degrees 76/minute 16/minute 138/78 Weight 82.1 kg Vaishnavi Ferreira APRN.CNP 07/06/2018 9:29 AM Signed Subjective The history is provided by the patient. No language pathologist was used. RE Armstronglinda Strickland is a 68 year old female who presents today for CC of right upper quadrant, right rib pain. Onset/Duration: 2 weeks and is worsening. Alleviating/Treatment: None, tried topical rub, and advil Aggravating: Movement. Risk factors: Was leaning over freezer, and felt discomfort. BP 138/78 Pulse 76 Temp 36.2 ?C (97.1 ?F) (Tympanic) Resp 16 Wt 82.1 kg (181 lb) BMI 34.20 kg/m? ALLERGIES Allergen Reactions - Codeine Intolerance Chest pain - Aceon [Perindopril * Rash, Cough - Beta Blockers [Othe* Cough dry hacking cough - Hctz [Other] Rash - Imdur [Isosorbide] Other: See Comments headaches - Lipitor [Atorvastat* Other: See Comments muscle cramps - Lisinopril Cough dry hacking cough - Spironolactone Other: See Comments headache ACTIVE PROBLEM LIST Essential Hypertension, Benign Personal History of Colonic Polyps Postablative Hypothyroidism Osteoporosis POLYP STOMACH Degeneration of Cervical Intervertebral Disc Degenerative Arthritis of Knee Trigeminal Neuralgia Inadequate Pelvic Muscles Mixed Stress and Urge Urinary Incontinence Uterine Prolapse Cystocele, Midline Esophageal Reflux Delayed Gastric Emptying Trochanteric Bursitis of Left Hip Hypokalemia Thoracic Radiculopathy Due to Degenerative Joint Disease of Spine Lumbar Radiculopathy Tethered Spinal Cord (Hcc) Poor Sleep Hygiene Impaired Fasting Glucose Thoracic Spine Pain Lumbar Disc Disease With Radiculopathy Venous Insufficiency (Chronic) (Peripheral) Family History Problem Relation Age of Onset - Diabetes Mother - Heart Mother - Stroke Mother - Hypertension Mother - Hypertension Sister - Heart Sister - Hypertension Sister - Heart Sister - Hypertension Brother - Heart Brother - Hypertension Brother - Cancer Brother - Breast Cancer Maternal Aunt - Cancer Paternal Grandfather skin Social History Marital status: Spouse name: Morris Years of education: 10 Number of children: 2 Occupational History Occupation Employer Comment 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 Spouse was smoker in home for 39 years. Father smoked in childhood home. Alcohol use: No Drug use: No Sexual activity: No Comment: Tubal Ligation, Postmenopausal Other Topics Concern Sleep Concern Yes Stress Concern Yes PAST MEDICAL HISTORY Diagnosis Date - Contact dermatitis and other eczema - Degenerative arthritis of knee 05/24/2011 - Delayed gastric emptying 07/24/2012 - Diarrhea - Diverticulosis of colon (without mention of hemorrhage) Diverticulosis - Essential hypertension, benign - Hypokalemia 09/25/2012 - Impaired fasting glucose 11/19/2015 - Inadequate pelvic muscles 01/17/2012 - Lumbar disc disease with radiculopathy 09/01/2016 - thyrotoxicosis - Other osteoporosis 12/21/06 - Personal history of colonic polyps Colon polyps - Tethering of spinal cord (HCC) 2014 - Trigeminal neuralgia 10/11/2011 - Trochanteric bursitis of left hip 07/24/2012 - Unspecified hemorrhoids without mention of complication Hemorrhoids Review of Systems Constitutional: Negative for chills, fever and malaise/fatigue. Gastrointestinal: Positive for abdominal pain (ruq). Musculoskeletal: Positive for joint pain (right ribs). Negative for myalgias. Skin: Negative for rash. Neurological: Negative for tingling and headaches. Objective Physical Exam Constitutional: She is oriented to person, place, and time and well-developed, well-nourished, and in no distress. No distress. HENT: Head: Normocephalic and atraumatic. Eyes: Pupils are equal, round, and reactive to light. Conjunctivae and EOM are normal. Neck: Normal range of motion. Neck supple. Pulmonary/Chest: Effort normal and breath sounds normal. She has no decreased breath sounds. She has no wheezes. She has no rhonchi. She has no rales. Abdominal: Normal appearance and bowel sounds are normal. She exhibits no abdominal bruit, no pulsatile midline mass and no mass. There is no hepatosplenomegaly. There is tenderness in the right upper quadrant. There is no rigidity, no rebound, no guarding, no CVA tenderness, no tenderness at McBurney's point and negative Ruggiero's sign. Neurological: She is alert and oriented to person, place, and time. Skin: Skin is warm and dry. Psychiatric: Affect normal. Nursing note and vitals reviewed. ASSESSMENT/PLAN: 1. Rib pain on right side - ICD9: 786.50, ICD10: R07.81 Due to nature of patient's complaint and lack of investigative tools available at [facility], recommend patient be seen at nearest ED for further work up of pain. Patient given directions to [facility], report called and red card sent with patient. - XR RIBS/CHEST 3V AP RIB/OBLS/CXR RT Diagnosis and treatment plan were discussed and questions were answered to the patient's satisfaction. Pt acknowledged understanding of concepts and follow up plan. Specific signs and symptoms that would indicate the need for higher level of care were discussed in detail warranting prompt ER evaluation. Vaishnavi Ferreira APRN.EXPLOSIVE OPERATOR SUPERVISOR Referring Provider: SELF [[id number]] Allergies As of Date: 07/06/2018 Noted Allergy Reaction CODEINE 12/09/2009 5 - Intolerance Comments: Chest pain ACEON (PERINDOPRIL ERBUMINE) 11/02/2005 2 - Rash 3 - Cough beta blockers [Other] 10/07/2005 3 - Cough Comments: dry hacking cough hctz [Other] 10/07/2005 2 - Rash IMDUR (ISOSORBIDE) 03/06/2012 14 - Other: See Comments Comments: headaches LIPITOR (ATORVASTATIN CALCIUM) 10/21/2014 14 - Other: See Comments Comments: muscle cramps LISINOPRIL 10/07/2005 3 - Cough Comments: dry hacking cough SPIRONOLACTONE 03/21/2014 14 - Other: See Comments Comments: headache Date Reviewed: 07/06/2018 Reviewed by: Page Duggan Ma - Fully Assessed Reason for Visit: Rib Injury [43512] Cmt: right rib pain x 2 weeks, did feel pop x 3-4 weeks ago after bending over a freezer Primary Visit Diagnosis:Rib pain on right side [R07.81] Order(s):XR RIBS/CHEST 3V AP RIB/OBLS/CXR RT [[id number]] Order #: [id number] Prescriptions as of 07/06/2018 Sig: ALENDRONATE 70 MG TABLET Take 1 tablet by mouth once e* POTASSIUM CHLORIDE ER 20 MEQ * Take 1 tablet by mouth four t* GABAPENTIN 300 MG CAPSULE Take 1 capsule by mouth daily* LEVOTHYROXINE 88 MCG TABLET Take 1 tablet by mouth once d* LOSARTAN 100 MG TABLET Take 1 tablet by mouth once d* LABETALOL 100 MG TABLET Take 1 tablet by mouth twice * PANTOPRAZOLE 40 MG TABLET,DEL* Take 1 tablet by mouth once d* AMLODIPINE 5 MG TABLET Take 1 tablet by mouth once d* ISOSORBIDE MONONITRATE ER 30 * Take 0.5 tablets by mouth onc* TEMAZEPAM 30 MG CAPSULE Take 1 capsule by mouth at be* FUROSEMIDE 20 MG TABLET Take 1 tablet by mouth twice * BIOTIN 2,500 MCG CAPSULE Take 1 capsule by mouth once * ASPIRIN 81 MG TABLET,DELAYED * Take 81 mg by mouth once ariane* LACTOBACIL RHAMNOSUS GG 10 BI* Take by mouth once daily. Problem List As Of Date 07/06/2018 Noted Resolved BENIGN HYPERTENSION [I10] More... More... PERS HX COLONIC POLYPS [Z86.010] More... 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] INVALID FOR* CERVICAL DISC DEGEN [M50.30] INVALID FOR* Degenerative arthritis of knee [M17.10] INVALID FOR* Trigeminal neuralgia [G50.0] INVALID FOR* Inadequate pelvic muscles [M62.9] INVALID FOR* Mixed stress and urge urinary incontinence [N39*INVALID FOR* Uterine prolapse [N81.4] INVALID FOR* Cystocele, midline [N81.11] INVALID FOR* Esophageal reflux [K21.9] INVALID FOR* Delayed gastric emptying [K30] INVALID FOR* Trochanteric bursitis of left hip [M70.62] INVALID FOR* Hypokalemia [E87.6] INVALID FOR* Thoracic radiculopathy due to degenerative join*INVALID FOR* Lumbar radiculopathy [M54.16] INVALID FOR* Tethered spinal cord (HCC) [Q06.8] INVALID FOR* Abdominal pain [R10.9] INVALID FOR*09/01/2016 Poor sleep hygiene [Z72.821] INVALID FOR* Impaired fasting glucose [R73.01] INVALID FOR* Thoracic spine pain [M54.6] INVALID FOR* Lumbar disc disease with radiculopathy [M51.16] INVALID FOR* Venous insufficiency (chronic) (peripheral) [I8*INVALID FOR* Letter Text Alberto Strickland Vaishnavi Ferreira, MACHINE SIZER.[facility] Urgent Care [address] [facility] [address] Dept: [phone] Date this form was last completed: July 06, 2018 Reason for Emergency Transport: RUQ pain 07/16 Name: Alberto [facility] Number : [id number] Age: [age] year old : 1950 Address: [address] [place] [phone] (home) Primary care physician: SYDNI Otoole MD, III MD [address] [place] [address] Current Vital Signs: BP 138/78 Pulse 76 Temp 36.2 ?C (97.1 ?F) (Tympanic) Resp 16 Wt 82.1 kg (181 lb) BMI 34.20 kg/m? Allergies: Codeine; Aceon [Perindopril Erbumine]; Beta Blockers [Other]; Hctz [Other]; Imdur [Isosorbide]; Lipitor [Atorvastatin Calcium]; Lisinopril; Spironolactone Current Medications: Current Outpatient Prescriptions: alendronate (FOSAMAX) 70 mg tablet Take 1 tablet by mouth once each week. Take with a full glass of water, on an empty stomach; do NOT lie down for 30minutes. potassium chloride ER (K-DUR, KLOR-CON) 20 mEq tablet Take 1 tablet by mouth four times daily. gabapentin (NEURONTIN) 300 mg capsule Take 1 capsule by mouth daily at bedtime for 90 days. levothyroxine (SYNTHROID) 88 mcg tablet Take 1 tablet by mouth once daily. losartan (COZAAR) 100 mg tablet Take 1 tablet by mouth once daily. labetalol (TRANDATE) 100 mg tablet Take 1 tablet by mouth twice daily. pantoprazole DR (PROTONIX) 40 mg tablet Take 1 tablet by mouth once daily. Take on empty stomach, 1/2 hr before meal. amLODIPine (NORVASC) 5 mg tablet Take 1 tablet by mouth once daily. isosorbide mononitrate ER (IMDUR) 30 mg 24 hr tablet Take 0.5 tablets by mouth once daily. temazepam (RESTORIL) 30 mg cap Take 1 capsule by mouth at bedtime as needed. FOR SLEEP. furosemide (LASIX) 20 mg tablet Take 1 tablet by mouth twice daily. Biotin 2,500 mcg cap Take 1 capsule by mouth once daily. aspirin, enteric coated (ASPIRIN, ENTERIC COATED) 81 mg EC tablet Take 81 mg by mouth once daily. lactobacillus rhamnosus-Inulin (CULTURELLE PROBIOTICS) 10 billion cell -245 mg cpSP Take by mouth once daily. No current facility-administered medications for this visit. Problem List: ACTIVE PROBLEM LIST Essential Hypertension, Benign Personal History of Colonic Polyps Postablative Hypothyroidism Osteoporosis POLYP STOMACH Degeneration of Cervical Intervertebral Disc Degenerative Arthritis of Knee Trigeminal Neuralgia Inadequate Pelvic Muscles Mixed Stress and Urge Urinary Incontinence Uterine Prolapse Cystocele, Midline Esophageal Reflux Delayed Gastric Emptying Trochanteric Bursitis of Left Hip Hypokalemia Thoracic Radiculopathy Due to Degenerative Joint Disease of Spine Lumbar Radiculopathy Tethered Spinal Cord (Hcc) Poor Sleep Hygiene Impaired Fasting Glucose Thoracic Spine Pain Lumbar Disc Disease With Radiculopathy Venous Insufficiency (Chronic) (Peripheral) Past Surgical History PAST SURGICAL HISTORY Procedure Laterality Date - COLONOSCOP W/ OR W/O BRSH SPEC Colonoscopy - COLONOSCOP W/ OR W/O BRSH SPEC 07/13/07 Lax colon - COLONOSCOP W/ OR W/O BRSH SPEC 03/26/14 Colonoscopy - DECOMPRESSION PLANTAR DIGITAL NERVE 2000 heel spur/ plantar fasciitis repair Rt - EGD W/O BRSH SPECIMEN W/BX 07/13/07 Gastritis, fundic gland polyps - EGD W/O OR W/BRUSH/WASH 03/26/14 EGD - LAPAROSCOPIC CHOLEYCYSTECTOMY Cholecystectomy, lap - LIGATE FALLOPIAN TUBE - REPAIR ROTATOR CUFF,ACUTE 1991 Rotator cuff repair, right - REVISE MEDIAN N/CARPAL TUNNEL SURG Carpal tunnel decomp bilateral - STRESS TEST,COMPLETE_*FL Insurance information: Payor: MEDICARE / Plan: MEDICARE A AND B / Product Type: Medicare / Emergency Contact: Extended Emergency Contact Information Primary Emergency Contact: Heather Huang Relation: Daughter Encounter Status:Closed by VAISHNAVI FERREIRA CNP on 07/06/18 UPPER EXT JOINT Observed: 06/05/2018 Status: F Source: [place] ONLY(ROUTINE) 9:30 AM [facility] REPOSITORY [facility] Imaging Services [address] [place] [address] Upper Ext Joint Only(Routine) MR#: [id number] Acct: [id number] Name: ALBERTO STRICKLAND Rep #: [id number] : 1950 F 68 From: Jenelle White MD PCP: Erma Parker III, MD Status: REG CLI Study: Upper Ext Joint Only(Routine) Date of Exam: 06/05/18 Exam# [id number] Ordering Dr: AMERICO ESTRADA NP STUDY: MRI LEFT SHOULDER REASON FOR EXAM: Female, 68 years old. shoulder pain left shoulder,restricted movement, adhesive capsulitis TECHNIQUE: Standardized fat and water weighted pulse sequences were obtained in all 3 orthogonal planes. COMPARISON: None. FINDINGS: There is supraspinatus tendinosis with mild tendon thickening, but without a demonstrated tendon tear. Normal infraspinatus tendon. Normal subscapularis tendon. Normal teres minor tendon. Normal supraspinatus muscle. Normal infraspinatus muscle. Normal subscapularis muscle. Normal teres minor muscle. There is a small volume joint effusion of the glenohumeral joint with a small amount of debris. There is mild glenohumeral osteoarthritis. There is mild thickening of the inferior joint capsule consistent with adhesive capsulitis. There is a cortical erosion at the insertion of the subscapularis tendon. Normal biceps labral complex. Normal intracapsular long biceps tendon. Normal labrum. Normal rotator interval. There is mild osteoarthritis of the acromioclavicular articulation. There is a Type I morphology (flat undersurface), with a neutral orientation. There is no subacromial-subdeltoid bursal fluid. Normal visualized coracohumeral and coracoacromial ligaments. Normal quadrilateral space. Normal axillary space. Normal deltoid muscle. Normal trapezius muscle. MRI/Upper Ext Joint Only(Routine) IMPRESSION: There is mild thickening of the inferior joint capsule consistent with adhesive capsulitis. There is mild glenohumeral osteoarthritis and small joint effusion. There is mild supraspinatus tendinosis. Electronically Signed: Jenelle White MD at 11:51 EDT , Service support , CC: Erma Parker III, MD; AMERICO ESTRADA Wash Mill Operator: Signed PROGRESS Observed: 03/30/2018 Status: COMPLETED Source: [place] 6:26 PM [facility] REPOSITORY O ID: [id number] Author: Erma Parker III Service: (none) Author Type: Physician Type: Progress Notes Filed: 03/30/2018 6:26 PM Note Text: The bone density test does show that you have osteoporosis with a high risk of fracture during your lifetime. Chart review shows that I placed you on Actonel in 2006 but that another provider discontinued the medication. Do you remember the situation surrounding this? I can try to help reduce your fracture risk by prescribing Fosamax or Actonel for the next 5 years. Please let me know if you remember of any side effect or reason for not treating this condition. Erma Parker III, MD, FAAFP BD DXA - AXIAL Observed: 03/28/2018 Status: F Source: [place] 3:41 PM [facility] REPOSITORY * * *Final Report* * * DATE OF EXAM: Mar 28 2018 3:41PM WRB 0804 - BD DXA - AXIAL SKELETON B / PROCEDURE REASON: Age-related osteoporosis without current pathological fracture * * * * Physician Interpretation * * * * PROCEDURE: BD DXA - AXIAL SKELETON INDICATION: Age-related osteoporosis without current pathological fracture TECHNIQUE: Low dose AP spine and hip images COMPARISON: 11/30/2010 LUMBAR SPINE: The bone mineral density from L1 through L4 is 0.31 2 grams per square centimeter which yields a T-score of -2.1. . LEFT HIP: The bone mineral density of the total region of the hip is 0.746 grams per square centimeter which yields a T-score of -1.6. . LEFT FEMORAL NECK: The bone mineral density of the femoral neck is 0.453 grams per square centimeter which yields a T-score of -3.6. . RIGHT HIP: The bone mineral density of the total region of the hip is 0.729 grams per square centimeter which yields a T-score of -1.7. . RIGHT FEMORAL NECK: The bone mineral density of the femoral neck is 0.400 grams per square centimeter which yields a T-score of -4.0. . 10-year Fracture Risk (FRAX): Major osteoporotic fracture risk 56% Hip fracture risk 33% IMPRESSION: Osteoporosis in both femoral necks. Accurate comparison to the prior study cannot be made due to dissimilar scan types or analysis methods.. WORLD HEALTH ORG. CLASSIFICATION OF BONE MASS CLASSIFICATION T-SCORE Normal Greater than -1 Low Bone Mass Between -1 and -2.5 (Osteopenia) Osteoporosis Less than or equal to -2.5 Wash Mill Operator: LUIS ENRIQUE Transcribe Date/Time: Mar 28 2018 4:41P Dictated by : HUSSEIN PEPPER MD This examination was interpreted and the report reviewed and electronically signed by: HUSSEIN PEPPER MD on Mar 28 2018 4:42PM EST [id number] PROGRESS Observed: 03/28/2018 Status: COMPLETED Source: [place] 3:30 PM [facility] REPOSITORY HNO ID: [id number] Author: Roman ArdonRt) Kary Cantor Service: (none) Author Type: [employer] Type: Progress Notes Filed: 03/28/2018 3:42 PM Note Text: Radiology Service Progress Note PATIENT NAME: Alberto Strickland DATE OF SERVICE: March 28, 2018 TIME: 3:30 PM PATIENT IDENTITY VERIFICATION COMPLETED USING TWO (2) METHODS: Patient confirmed name verbally and Date of . PATIENT GENDER DATA: Female. status: : No status: NO. PATIENT RELEVANT IMPLANT DATA REVIEWED: Not Applicable RADIOLOGY DEPARTMENT: [facility] Bone density PERIPHERAL IV DATA: Not applicable SIGNED BY: RT Ariela March 28, 2018 3:30 PM PROGRESS Observed: 03/25/2018 Status: COMPLETED Source: [place] 12:23 PM [facility] REPOSITORY HNO ID: [id number] Author: Erma Parker III Service: (none) Author Type: Physician Type: Progress Notes Filed: 03/25/2018 12:23 PM Note Text: [place], Very good diabetic control. Magnesium level is normal. Liver function tests and electrolytes are normal. Kidney function is stable over the past year. I have no real explanation for the muscle cramping. I do recommend regular stretching exercises. Erma Parker III, MD, [facility] COMP METABOLIC PANEL Collected: 03/22/2018 Status: F Source: [place] 4:17 PM [facility] REPOSITORY TYPE CODE TESTS RESULT OUT OF REFERENCE UNITS RANGE LAB TP 6.3-8.0 g/dL Protein, Total 7.3 LAB ALB 3.9-4.9 g/dL Low Albumin 3.8 LAB CA 8.5-10.2 mg/dL Calcium, Total 9.0 LAB TBIL 0.2-1.3 mg/dL Bilirubin, Total 0.2 LAB ALKP 32-117 U/L Alkaline Phosphatase 106 LAB AST 13-35 U/L AST 29 LAB GLU 74-99 mg/dL Glucose 85 Result Comment: The [place] [employer] (ADA) provides guidance for cutoff values for fasting glucose and random glucose. The ADA defines fasting as no caloric intake for at least 8 hours. Fas ting plasma glucose results between 100 to 125 mg/dL indicate increased risk for diabetes (prediabetes). Fasting plasma glucose results greater than or equal to 126 mg/dL meet the criteria for diagnosis of diabetes. In the absence of unequivocal hyperglycemia, results should be confirmed by repeat testing. In a patient with classic symptoms of hyperglycemia or hyperglycemic crisis, random plasma glucose results greater than or equal to 200 mg/dL meet the criteria for diagnosis of diabetes. Reference: Standards of Medical Care in Diabetes 2016, [place] [employer]. Diabetes Care. 2016.39(Suppl 1). LAB BUN 7-21 mg/dL BUN 12 LAB CRET 0.58-0.96 mg/dL Creatinine High 1.13 LAB NA 136-144 mmol/L Low Sodium 134 LAB K 3.7-5.1 mmol/L Potassium 4.3 LAB CL 97-105 mmol/L Low Chloride 95 LAB CO2 22-30 mmol/L CO2 25 LAB AGAP 9-18 mmol/L Anion Gap 14 LAB ALT 7-38 U/L ALT 14 LAB GFRAA eGFR- Amer. 58 LAB GFRNAA . eGFR-All Other Races 48 Result Comment: eGFR (Estimated GFR) Units of measure: mL/min/1.73 meters squared eGFR is derived from the reexpressed MDRD Study equation using the following parameters: serum creatinine, age, gender and race. The creatinine assay has been calibrated to be traceable to [employer]. An eGFR <60 mL/min/1.73m2 for >3 months is consistent with chronic kidney disease. Refer to KDOQI guidelines for clinical interpretation. In patients with unstable renal function, e.g. those with acute kidney injury, the eGFR may not accurately reflect actual GFR. Performed By: #### CMP, MG1 #### [facility] [address] [place], [place] [address] MAGNESIUM Collected: 03/22/2018 Status: F Source: [place] 4:17 PM [facility] REPOSITORY TYPE CODE TESTS RESULT OUT OF REFERENCE UNITS RANGE LAB MG 1.7-2.3 mg/dL Magnesium 2.2 Performed By: #### CMP, MG1 #### [facility] [address] [place] [address] HEMOGLOBIN A1C Collected: 03/22/2018 Status: F Source: [place] 4:16 PM [facility] REPOSITORY TYPE CODE TESTS RESULT OUT OF REFERENCE UNITS RANGE LAB HGBA1C 4.3-5.6 % High Hemoglobin A1c 6.0 LAB HBA0 mg/dL Est. Average Glucose 126 Result Comment: eAG: (Estimated average glucose) is a calculated value from HgbA1c and is indirect sales representative of the average blood glucose level in the last 2-3 month period. Performed By: #### HBA1C #### [place] [address] [place] [address] PROGRESS Observed: 03/22/2018 Status: COMPLETED Source: [place] 3:41 PM [facility] REPOSITORY HNO ID: [id number] Author: Erma Parker III Service: (none) Author Type: Physician Type: Progress Notes Filed: 03/22/2018 6:35 PM Note Text: SUBJECTIVE: This is a 67 year old female that is here today for 1. muscle cramping in calves and feet for >1 yr. Not assoc with back pain Mg 2.2 (Nov 2016); Na 138 K 4.1 Ca 9.1 (Aug 2017) 2. seen in ER recently for vertigo. Brain scan neg. Meclizine with benefit 3. hypokalemia--on potassium supplements QID. 4. 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 5. osteoporosis by BMD 2011: 6. episodic fleeting pain L lat neck for mos. w/o injury. PAST MEDICAL HISTORY Diagnosis Date - Contact dermatitis and other eczema - Degenerative arthritis of knee 05/24/2011 - Delayed gastric emptying 07/24/2012 - Diarrhea - Diverticulosis of colon (without mention of hemorrhage) Diverticulosis - Essential hypertension, benign - Hypokalemia 09/25/2012 - Impaired fasting glucose 11/19/2015 - Inadequate pelvic muscles 01/17/2012 - Lumbar disc disease with radiculopathy 09/01/2016 - thyrotoxicosis - Other osteoporosis 12/21/06 - Personal history of colonic polyps Colon polyps - Tethering of spinal cord (HCC) 2014 - Trigeminal neuralgia 10/11/2011 - Trochanteric bursitis of left hip 07/24/2012 - Unspecified hemorrhoids without mention of complication Hemorrhoids Current Outpatient Prescriptions on File Prior to Visit: levothyroxine (SYNTHROID) 88 mcg tablet Take 1 tablet by mouth once daily. losartan (COZAAR) 100 mg tablet Take 1 tablet by mouth once daily. labetalol (TRANDATE) 100 mg tablet Take 1 tablet by mouth twice daily. pantoprazole DR (PROTONIX) 40 mg tablet Take 1 tablet by mouth once daily. Take on empty stomach, 1/2 hr before meal. amLODIPine (NORVASC) 5 mg tablet Take 1 tablet by mouth once daily. isosorbide mononitrate ER (IMDUR) 30 mg 24 hr tablet Take 0.5 tablets by mouth once daily. temazepam (RESTORIL) 30 mg cap Take 1 capsule by mouth at bedtime as needed. FOR SLEEP. furosemide (LASIX) 20 mg tablet Take 1 tablet by mouth twice daily. potassium chloride ER (K-DUR, KLOR-CON) 20 mEq tablet Take 1 tablet by mouth four times daily. Biotin 2,500 mcg cap Take 1 capsule by mouth once daily. aspirin, enteric coated (ASPIRIN, ENTERIC COATED) 81 mg EC tablet Take 81 mg by mouth once daily. lactobacillus rhamnosus-Inulin (CULTURELLE PROBIOTICS) 10 billion cell -245 mg cpSP Take by mouth once daily. gabapentin (NEURONTIN) 300 mg capsule Take 1 capsule by mouth daily at bedtime for 90 days. No current facility-administered medications on file prior to visit. FAMILY HISTORY Problem Relation Age of Onset - Diabetes Mother - Heart Mother - Stroke Mother - Hypertension Mother - Hypertension Sister - Heart Sister - Hypertension Sister - Heart Sister - Hypertension Brother - Heart Brother - Hypertension Brother - Cancer Brother - Breast Cancer Maternal Aunt - Cancer Paternal Grandfather skin Social History Substance Use Topics - Smoking status: Former Smoker Packs/day: 0.10 Years: 1.00 Types: Cigarettes - Smokeless tobacco: Never Used Comment: Smoked 1 year or less in 1980s. Spouse was smoker in home for 39 years. Father smoked in childhood home. - Alcohol use No BP 116/59 Pulse 68 Resp 16 Wt 83.9 kg (185 lb) BMI 34.96 kg/m? . OBJECTIVE: APPEARANCE Well appearing, alert, in no acute distress, well-hydrated, well nourished. NECK Supple, no adenopathy; thyroid symmetric, normal size, no bruits No mass or tenderness of neck HEART RRR with normal S1 and S2, no murmurs, no gallops, no JVD appreciated LUNG clear to auscultation EXTREMITIES Extremities normal, No deformities, No skin discoloration, No edema, Normal pulses bilaterally. and Painless ROM of ankles and flex/ext of knees. No inflammation of ankles or knees. ASSESSMENT: leg cramping hx of hypokalemia osteoporosis PLAN: CMP, magnesium recommend exercycle 10-15 min three -four days/wk leg stretching after exercise and before bed. same medications bone density test SYDNI Otoole MD, III MD CNOV Observed: 03/22/2018 Status: COMPLETED Source: [place] 3:00 PM [facility] REPOSITORY Office Visit (FAMPWS) ALBERTO STRICKLAND ([id number]) 1950 F Date Time Provider Department 03/22/18 3:00 PM ERMA PARKER III During your visit today, we recorded the following information about you: Pulse Respiration Blood pressure Weight 68/minute 16/minute 116/59 83.9 kg Erma Parker III MD 03/22/2018 6:35 PM Signed SUBJECTIVE: This is a 67 year old female that is here today for 1. muscle cramping in calves and feet for >1 yr. Not assoc with back pain Mg 2.2 (Nov 2016); Na 138 K 4.1 Ca 9.1 (Aug 2017) 2. seen in ER recently for vertigo. Brain scan neg. Meclizine with benefit 3. hypokalemia--on potassium supplements QID. 4. 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 5. osteoporosis by BMD 2011: 6. episodic fleeting pain L lat neck for mos. w/o injury. PAST MEDICAL HISTORY Diagnosis Date - Contact dermatitis and other eczema - Degenerative arthritis of knee 05/24/2011 - Delayed gastric emptying 07/24/2012 - Diarrhea - Diverticulosis of colon (without mention of hemorrhage) Diverticulosis - Essential hypertension, benign - Hypokalemia 09/25/2012 - Impaired fasting glucose 11/19/2015 - Inadequate pelvic muscles 01/17/2012 - Lumbar disc disease with radiculopathy 09/01/2016 - thyrotoxicosis - Other osteoporosis 12/21/06 - Personal history of colonic polyps Colon polyps - Tethering of spinal cord (HCC) 2014 - Trigeminal neuralgia 10/11/2011 - Trochanteric bursitis of left hip 07/24/2012 - Unspecified hemorrhoids without mention of complication Hemorrhoids Current Outpatient Prescriptions on File Prior to Visit: levothyroxine (SYNTHROID) 88 mcg tablet Take 1 tablet by mouth once daily. losartan (COZAAR) 100 mg tablet Take 1 tablet by mouth once daily. labetalol (TRANDATE) 100 mg tablet Take 1 tablet by mouth twice daily. pantoprazole DR (PROTONIX) 40 mg tablet Take 1 tablet by mouth once daily. Take on empty stomach, 1/2 hr before meal. amLODIPine (NORVASC) 5 mg tablet Take 1 tablet by mouth once daily. isosorbide mononitrate ER (IMDUR) 30 mg 24 hr tablet Take 0.5 tablets by mouth once daily. temazepam (RESTORIL) 30 mg cap Take 1 capsule by mouth at bedtime as needed. FOR SLEEP. furosemide (LASIX) 20 mg tablet Take 1 tablet by mouth twice daily. potassium chloride ER (K-DUR, KLOR-CON) 20 mEq tablet Take 1 tablet by mouth four times daily. Biotin 2,500 mcg cap Take 1 capsule by mouth once daily. aspirin, enteric coated (ASPIRIN, ENTERIC COATED) 81 mg EC tablet Take 81 mg by mouth once daily. lactobacillus rhamnosus-Inulin (CULTURELLE PROBIOTICS) 10 billion cell -245 mg cpSP Take by mouth once daily. gabapentin (NEURONTIN) 300 mg capsule Take 1 capsule by mouth daily at bedtime for 90 days. No current facility-administered medications on file prior to visit. FAMILY HISTORY Problem Relation Age of Onset - Diabetes Mother - Heart Mother - Stroke Mother - Hypertension Mother - Hypertension Sister - Heart Sister - Hypertension Sister - Heart Sister - Hypertension Brother - Heart Brother - Hypertension Brother - Cancer Brother - Breast Cancer Maternal Aunt - Cancer Paternal Grandfather skin Social History Substance Use Topics - Smoking status: Former Smoker Packs/day: 0.10 Years: 1.00 Types: Cigarettes - Smokeless tobacco: Never Used Comment: Smoked 1 year or less in 1980s. Spouse was smoker in home for 39 years. Father smoked in childhood home. - Alcohol use No BP 116/59 Pulse 68 Resp 16 Wt 83.9 kg (185 lb) BMI 34.96 kg/m? . OBJECTIVE: APPEARANCE Well appearing, alert, in no acute distress, well- hydrated, well nourished. NECK Supple, no adenopathy; thyroid symmetric, normal size, no bruits No mass or tenderness of neck HEART RRR with normal S1 and S2, no murmurs, no gallops, no JVD appreciated LUNG clear to auscultation EXTREMITIES Extremities normal, No deformities, No skin discoloration, No edema, Normal pulses bilaterally. and Painless ROM of ankles and flex/ext of knees. No inflammation of ankles or knees. ASSESSMENT: leg cramping hx of hypokalemia osteoporosis PLAN: CMP, magnesium recommend exercycle 10-15 min three -four days/wk leg stretching after exercise and before bed. same medications bone density test SYDNI Otoole MD, III MD Frank A Cebul, III MD 03/22/2018 4:08 PM Signed PLAN: CMP, magnesium recommend exercycle 10-15 min three -four days/wk leg stretching after exercise and before bed. same medications Erma Parker III MD BONE MINERAL DENSITY PATIENT INSTRUCTIONS Bone mineral density testing measures the amount of calcium in certain parts of your bones. This information determines how strong your bones are. The test is used to detect osteoporosis, a disease in which the bone's mineral content and density are low, increasing a person's risk of fractures. The lumbar spine (lower back) and the hip are the skeletal sites usually examined. For the test, remember that: 1. You cannot take this test if you are . 2. Eat a normal diet on the day of the test. 3. Take your medications as you normally would. 4. DO NOT take calcium supplements (such as Tums) for 24 hours before the test. 5. On the day of the test, leave valuables (jewelry or credit cards) at home. 6. The test should be performed prior to oral, rectal or IV contrast studies, or at least 7 days after any of these studies. For the test, you may be asked to wear a hospital gown. You will lie on your back, on a padded table, in a comfortable position. Generally, you can resume your usual activities immediately. PLAN: CMP, magnesium recommend exercycle 10-15 min three -four days/wk leg stretching after exercise and before bed. same medications bone density test Erma Parker III MD Referring Provider: SELF [[id number]] Allergies As of Date: 03/22/2018 Noted Allergy Reaction CODEINE 12/09/2009 5 - Intolerance Comments: Chest pain ACEON (PERINDOPRIL ERBUMINE) 11/02/2005 2 - Rash 3 - Cough beta blockers [Other] 10/07/2005 3 - Cough Comments: dry hacking cough hctz [Other] 10/07/2005 2 - Rash IMDUR (ISOSORBIDE) 03/06/2012 14 - Other: See Comments Comments: headaches LIPITOR (ATORVASTATIN CALCIUM) 10/21/2014 14 - Other: See Comments Comments: muscle cramps LISINOPRIL 10/07/2005 3 - Cough Comments: dry hacking cough SPIRONOLACTONE 03/21/2014 14 - Other: See Comments Comments: headache Date Reviewed: 03/22/2018 Reviewed by: Sandra ([facility]) DEE Lara - Fully Assessed Reason for Visit: Musculoskeletal Problem [69] Cmt: bilateral, calves feel like charley horses, pain around ankles hurt the worst Primary Visit Diagnosis:Muscle cramping [R25.2] Other Visit Diagnoses:Hypokalemia [E87.6] 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 [M47.24] Osteoporosis without current pathological fracture, unspecified osteoporosis type [M81.0] Order(s):potassium chloride ER (K-DUR, KLOR-CON) 20 mEq tabletTake 1 tablet by mouth four times daily.Disp: 360 tabletRfl: 3 gabapentin (NEURONTIN) 300 mg capsuleTake 1 capsule by mouth daily at bedtime for 90 days.Disp: 90 capsuleRfl: 1 MAGNESIUM BLD [SQMG1] Order #: [id number] FUTURE COMP METABOLIC PANEL [SQCMP] Order #: [id number] FUTURE DXA-AXIAL SKELETON [5759068] Order #: [id number] FUTURE Prescriptions as of 03/22/2018 Sig: POTASSIUM CHLORIDE ER 20 MEQ * Take 1 tablet by mouth four t* LEVOTHYROXINE 88 MCG TABLET Take 1 tablet by mouth once d* LOSARTAN 100 MG TABLET Take 1 tablet by mouth once d* LABETALOL 100 MG TABLET Take 1 tablet by mouth twice * PANTOPRAZOLE 40 MG TABLET,DEL* Take 1 tablet by mouth once d* AMLODIPINE 5 MG TABLET Take 1 tablet by mouth once d* ISOSORBIDE MONONITRATE ER 30 * Take 0.5 tablets by mouth onc* TEMAZEPAM 30 MG CAPSULE Take 1 capsule by mouth at be* FUROSEMIDE 20 MG TABLET Take 1 tablet by mouth twice * BIOTIN 2,500 MCG CAPSULE Take 1 capsule by mouth once * ASPIRIN 81 MG TABLET,DELAYED * Take 81 mg by mouth once ariane* LACTOBACIL RHAMNOSUS GG 10 BI* Take by mouth once daily. GABAPENTIN 300 MG CAPSULE Take 1 capsule by mouth daily* Problem List As Of Date 03/22/2018 Noted Resolved BENIGN HYPERTENSION [I10] More... More... PERS HX COLONIC POLYPS [Z86.010] More... 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] INVALID FOR* CERVICAL DISC DEGEN [M50.30] INVALID FOR* Degenerative arthritis of knee [M17.10] INVALID FOR* Trigeminal neuralgia [G50.0] INVALID FOR* Inadequate pelvic muscles [M62.9] INVALID FOR* Mixed stress and urge urinary incontinence [N39*INVALID FOR* Uterine prolapse [N81.4] INVALID FOR* Cystocele, midline [N81.11] INVALID FOR* Esophageal reflux [K21.9] INVALID FOR* Delayed gastric emptying [K30] INVALID FOR* Trochanteric bursitis of left hip [M70.62] INVALID FOR* Hypokalemia [E87.6] INVALID FOR* Thoracic radiculopathy due to degenerative join*INVALID FOR* Lumbar radiculopathy [M54.16] INVALID FOR* Tethered spinal cord (HCC) [Q06.8] INVALID FOR* Abdominal pain [R10.9] INVALID FOR*09/01/2016 Poor sleep hygiene [Z72.821] INVALID FOR* Impaired fasting glucose [R73.01] INVALID FOR* Thoracic spine pain [M54.6] INVALID FOR* Lumbar disc disease with radiculopathy [M51.16] INVALID FOR* Venous insufficiency (chronic) (peripheral) [I8*INVALID FOR* Other instructions from your clinician: PLAN: CMP, magnesium recommend exercycle 10-15 min three -four days/wk leg stretching after exercise and before bed. same medications Erma Parker III MD BONE MINERAL DENSITY PATIENT INSTRUCTIONS Bone mineral density testing measures the amount of calcium in certain parts of your bones. This information determines how strong your bones are. The test is used to detect osteoporosis, a disease in which the bone's mineral content and density are low, increasing a person's risk of fractures. The lumbar spine (lower back) and the hip are the skeletal sites usually examined. For the test, remember that: 1. You cannot take this test if you are . 2. Eat a normal diet on the day of the test. 3. Take your medications as you normally would. 4. DO NOT take calcium supplements (such as Tums) for 24 hours before the test. 5. On the day of the test, leave valuables (jewelry or credit cards) at home. 6. The test should be performed prior to oral, rectal or IV contrast studies, or at least 7 days after any of these studies. For the test, you may be asked to wear a hospital gown. You will lie on your back, on a padded table, in a comfortable position. Generally, you can resume your usual activities immediately. PLAN: CMP, magnesium recommend exercycle 10-15 min three -four days/wk leg stretching after exercise and before bed. same medications bone density test Erma Parker III MD Prescriptions ordered this encounter Disp Refills Start End POTASSIUM CHLORIDE ER 20 MEQ TABLET,* 360 * 3 03/22/2018 Route: ORAL Sig: Take 1 tablet by mouth four times daily. GABAPENTIN 300 MG CAPSULE 90 c* 1 03/22/2018 06/20/2018 Route: ORAL Sig: Take 1 capsule by mouth daily at bedtime for 90 days. Medications Discontinued During This Encounter potassium chloride ER (K-DUR, KLOR-C* 360 * 3 05/08/2017 03/22/2018 Route: ORAL Sig: Take 1 tablet by mouth four times daily. Disc: Reason for discontinue is not on file. gabapentin (NEURONTIN) 300 mg capsule 90 c* 1 11/03/2017 03/22/2018 Route: ORAL Sig: Take 1 capsule by mouth daily at bedtime for 90 days. Disc: Reason for discontinue is not on file. Encounter Status:Closed by ERMA PARKER III, MD on 03/22/18 12 LEAD ELECTROCARDIOGRAM Observed: 01/26/2018 Status: F Source: [place] 2:26 PM [facility] REPOSITORY [facility] Cardiovascular Services [address] [place] [id number] 12 Lead EKG 01/25/18 1231 MR#: [id number] Acct: [id number] Name: ALBERTO STRICKLAND Rep #: [id number] : 1950 67 From: Christophe Gonzalez MD Attending Dr: Status: DEP ER Ordering Dr: Jono Trevino MD Date: 01/25/18 Location: ED Sex: F C Admitted: Test Reason : DIZZINESS Blood Pressure : / mmHG Vent. Rate : 056 BPM Atrial Rate : 056 BPM P-R Int : 196 ms QRS Dur : 092 ms QT Int : 424 ms P-R-T Axes : 043 052 064 degrees QTc Int : 409 ms Sinus bradycardia Otherwise normal ECG Confirmed by CHRISTOPHE GONZALEZ MD ([id number]), fan mail editor GREGG LAU ([id number]) on 01/26/2018 2:25:39 PM Referred By: DYAN Confirmed By:CHRISTOPHE GONZALEZ MD 01/26/18 1425 Date Christophe Gonzalez MD CC: Erma Parker III, MD; Jono Trevino MD Signed EMERGENCY DEPARTMENT Observed: 01/25/2018 Status: F Source: [place] SUMMARY 5:05 PM [facility] REPOSITORY [facility] Medical Records Department [address] [place] [address] Emergency Department Summary 01/25/18 1431 MR#: [id number] Acct: [id number] Name: ALBERTO STRICKLAND Rep #: [id number] : 1950 67 From: Jono Trevino MD PCP: Erma Parker III, MD Status: DEP ER - ER Visit Summary Date of Service: 01/25/18 Chief Complaint: Vertigo History of Present Illness: The patient is a [address] Erma Parker III. She reports that this morning she developed vertigo. She states that she is nauseated with it. She is not diaphoretic. She has not vomited. She denies any ringing or roaring in her ears. No change in her hearing. No ear pain. No slurred speech or double vision. Review of systems: General: No fever, chills, cold sweats. Cardiovascular: No chest pain, palpitations. Respiratory: No cough, shortness of breath, dyspnea on exertion. Gastrointestinal: No abdominal pain, vomiting, diarrhea, melena, or hematochezia. Genitourinary: No dysuria, frequency, hematuria. Skin: No rash. Neuro: No headache, numbness, weakness. Physical Examination: Vitals: Stable. Afebrile. General: Well-nourished and well-developed. Head: Normocephalic atraumatic. Neck: Supple, no lymphadenopathy. No JVD. Nontender. Cardiovascular: Regular rate and rhythm. No murmurs. Respiratory: No respiratory distress. Clear to auscultation bilaterally. Abdominal: Soft, nontender, nondistended, normal bowel sounds. No guarding, rebound, or peritoneal signs. Back: Nontender. Extremities: Nontender, no edema. Skin: Normal color, no rash. Neurologic: Alert and oriented 3. Cranial nerves II through XII are intact. Normal strength and sensation. Mild nystagmus with gaze to the left. However, this does not give her vertiginous symptoms. Psych: Normal affect. Test Results: T brain is normal. EKG is sinus bradycardia 56 with no acute changes. CBC is marked for hematocrit of 36.3. Chem-7 is more for sodium 134, BUN 20, creatinine 1.13. Emergency Department Course and Treatment: Patient received Zofran by squad on the way in. She is given a dose of Antivert p.o. She had negative orthostatic vital signs. States that her vertigo is resolved and she been able to ambulate without difficulty. Treatment Plan: Patient will be discharged with Zofran and Antivert. Instructed to follow-up with Dr. Erma Parker III in 1-2 days if not improving. Return to the emergency department for any worsening symptoms. Disposition: To home in improved and stable condition. Impression: 1. Vertigo, resolved. This note was generated with Panor[employer] dictation software. It may contain incorrect words, spelling, and punctuation that were not noted in review of the chart prior to signing ED Disposition - Plan for ED Patient: Disposition: Home or Assisted Living Chief Complaint: Dizziness Instructions: ED Dizziness [facility] Prescriptions: Ondansetron [Zofran Odt] 4 mg PO Q8H PRN PRN #10 tablet PRN Reason: Nausea Meclizine HCl [Antivert] 25 mg PO 4X/DAY PRN PRN #20 tablet PRN Reason: Dizziness Referrals: Erma Parker III, MD [Primary Care Provider] - 1-2 Days if not improving What to do if you have Problems For any increased pain, shortness of breath, bleeding, nausea or vomiting, chest pain, or any unexpected problems, contact your Primary Care Provider. Call [facility] ([phone]) or report to the closest Emergency Room. Call 911 if necessary. 01/25/18 [id number] <Electronically signed by Jono Trevino MD> Date Jono Trevino MD Cosigner Signature (If Indicated): Date CC: Erma Parker III, MD CBC W/DIFF, AUTOMATED Collected: 01/25/2018 Status: F Source: NATI 1:05 PM [facility] REPOSITORY TYPE CODE TESTS RESULT OUT OF RANGE REFERENCE UNITS LAB L100.1000 4.4-11.0 K/mm3 Normal WBC 10.8 LAB L100.1200 4.2-5.4 M/mm3 Normal RBC 4.20 LAB L100.1300 12.0-15.0 g/dl Normal HGB 12.4 LAB L100.1400 37-47 % Low HCT 36.3 LAB L100.1500 81-99 fL Normal MCV 86.4 LAB L100.1600 27.0-32.0 pg Normal MCH 29.5 LAB L100.1700 32-36 g/gl Normal MCHC 34.2 LAB L100.1810 11.6-14.6 % Normal RDW CV 13.0 LAB L100.1820 35.1-43.9 fl Normal RDW SD 40.3 LAB L100.1900 150-450 K/mm3 Normal PLT 298 LAB L100.2000 6.2-12.0 fl Normal MPV 9.2 LAB L100.2100 47-70 % Normal NEUT% 67.9 LAB L100.2200 19-41 % Normal LY% 19.9 LAB L100.2300 0-10 % Normal MONO% 9.8 LAB L100.2400 0-5 % Normal EO% 1.5 LAB L100.2500 0-1 % Normal BASO% 0.6 LAB L100.2550 0.0-0.9 % Normal IM GRAN % 0.300 Result Comment: IG% - Immature Granulocytes (promyelocytes, myelocytes and metamyelocytes) > 1% indicates that a LEFT SHIFT is Present. LAB L100.2620 2.0-7.7 X10 3/uL Normal Absolute Neut 7.3 LAB L100.2720 0.83-4.51 X10 3/ul Normal Absolute Lymph 2.15 Performed By: #### L100.0100 #### [facility] [address] [place], [address] BASIC METABOLIC Collected: 01/25/2018 Status: F Source: NATI PROFILE (BMP) 1:05 PM [facility] REPOSITORY TYPE CODE TESTS RESULT OUT OF RANGE REFERENCE UNITS LAB L501.0100 74-106 mg/dL Normal GLU 98 Result Comment: Please note revised GLUCOSE reference range effective 2017. LAB L501.1000 7-18 mg/dL High BUN 20 LAB L501.1100 0.55-1.02 mg/dL High CREAT,SERUM 1.13 Result Comment: The validity of the calculated GFR AND GFRAA in patients over 70 years has not been determined. Clinical correlation is essential. LAB L501.1110 >60 mL/min Low EST GFR 51 Result Comment: Non- GFR Calc LAB L501.1115 >60 mL/min Normal EST GFR - AA 61 Result Comment: GFR Calc LAB L501.1255 ml/min Normal Estimated CRCL 35.46 LAB L501.1300 10-20 RATIO Normal BUN/CRE 17.7 LAB L501.2200 8.5-10 mg/dL Normal .1 CA 8.6 LAB L501.5300 136-14 mmol/L Low 5 NA 134 LAB L501.5600 3.5-5. mmol/L Normal 1 K 3.7 LAB L501.5900 98-107 mmol/L Normal CL 98 LAB L501.6100 21.0-3 mmol/L Normal 2.0 CO2 29.0 LAB L501.6200 5-15 Normal GAP 7 Performed By: #### L500.2500 #### [facility] [address] [place], [address] BRAIN/HEAD WITHOUT Observed: 01/25/2018 Status: F Source: NATI CONTRAST 12:23 PM [facility] REPOSITORY [facility] Imaging Services [address] [address] Brain/Head without Contrast MR#: [id number] Acct: [id number] Name: ALBERTO STRICKLAND Trang Rep #: [id number] : 1950 F 67 From: Robinson Menjivar PCP: Erma Parker III, MD Status: REG ER Study: Brain/Head without Contrast Date of Exam: 01/25/18 Exam# [id number] Ordering Dr: Jono Trevino MD STUDY: CT BRAIN WITHOUT CONTRAST REASON FOR EXAM: Female, 67 years old. Vertigo, dizziness, weak, nausea. 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 RADIATION DOSAGE (If Supplied By Facility): CTDIvol = ( 44.99 ) mGy, DLP = ( 745.49 ) mGycm TECHNIQUE: Transaxial CT imaging of the brain was performed without administration of intravenous contrast material. Individualized dose optimization techniques were used for this CT. COMPARISON: None. FINDINGS: Normal soft tissue structures. Normal calvarium. Normal size ventricles and extra-axial spaces for the patient's age. Normal white matter tracts of the cerebral hemispheres. Normal basal ganglia and thalami. Normal brainstem. Normal cerebellum. There is no intracranial hemorrhage. There are no findings of an acute ischemic infarction. Normal visualized paranasal sinuses. CT/Brain/Head without Contrast IMPRESSION: No acute intracranial abnormality Electronically Signed: Robinson Menjivar MD at 14:02 EDT Tel , Service support , CC: Erma Parker III, MD; Jono Trevino MD [employer] Operator: Signed PROGRESS Observed: 01/08/2018 Status: COMPLETED Source: [place] 9:12 AM [facility] OTHER CAMPUS REPOSITORY HNO ID: [id number] Author: Chon Banks Service: (none) Author Type: Physician Type: Progress Notes Filed: 01/08/2018 12:50 PM Note Text: PERTINENT CARDIAC HISTORY HTN Chest pain - normal cath HL - statin intolerant ADHERENCE TO GUIDELINES AN-I or ARB for HF with prior LVEF<40 (NQF 0081) - N/A ASA or Plavix for ASHD (NQF 0067) - met Beta gustavo for ASHD with prior IN or prior LVEF<40 (NQF 0070) - N/A Beta gustavo for HF with prior LVEF<40 (NQF 0083) - N/A AN-I or ARB for ASHD with DM or prior LVEF<40 (NQF 0066) - N/A Statin therapy for ASHD or FHL or DM - intolerant BMI documented and plan if >25 (NQ 0421) - lifestyle recommendation form Tobacco use screening and referral (NQ 0028) - lifestyle recommendation form Recommendation for whole food, plant based diet - lifestyle recommendation form CLINICAL IMPRESSION/PLAN: Alberto Strickland has stable, likely nonischemic, chest pain. I've encouraged her to use nitroglycerin if this pattern changes. There has been no change in the overall frequency with various doses of long-acting nitrates and Norvasc. I've asked her to continue her current exercise program and to increase activity as tolerated. I will see her in 8 months or as needed. Written and verbal health teaching given to patient, patient verbalizes understanding and agrees with treatment plan. This note was generated using Panoratio voice recognition system, and there may be some incorrect words, spellings, and punctuation that were not noted in checking the note before saving. DIAGNOSIS FOR VISIT: Chest pain HISTORY OF PRESENT ILLNESS Alberto Strickland returns for follow-up of her chest pain syndrome. She has tolerated the decrease the Norvasc without exacerbation of chest pain. Her edema has improved. Exercise tolerance is stable. She still has some chest discomfort with exercise of any type. This is associated with pain in the upper back as well and is likely musculoskeletal. She's had minimal edema. She has used no nitroglycerin. She denies syncope, TIAs, amaurosis, claudication. She's had a few palpitations. ALLERGIES: ALLERGIES Allergen Reactions - Codeine Intolerance Chest pain - Aceon [Perindopril * Rash, Cough - Imdur [Isosorbide] Other: See Comments headaches - Lipitor [Atorvastat* Other: See Comments muscle cramps - Lisinopril Cough dry hacking cough - Spironolactone Other: See Comments headache - Beta Blockers [Othe* Cough dry hacking cough - Hctz [Other] Rash CURRENT OUTPATIENT MEDICATIONS: gabapentin (NEURONTIN) 300 mg capsule Take 1 capsule by mouth daily at bedtime for 90 days. levothyroxine (SYNTHROID) 88 mcg tablet Take 1 tablet by mouth once daily. losartan (COZAAR) 100 mg tablet Take 1 tablet by mouth once daily. labetalol (TRANDATE) 100 mg tablet Take 1 tablet by mouth twice daily. pantoprazole DR (PROTONIX) 40 mg tablet Take 1 tablet by mouth once daily. Take on empty stomach, 1/2 hr before meal. amLODIPine (NORVASC) 5 mg tablet Take 1 tablet by mouth once daily. isosorbide mononitrate ER (IMDUR) 30 mg 24 hr tablet Take 0.5 tablets by mouth once daily. temazepam (RESTORIL) 30 mg cap Take 1 capsule by mouth at bedtime as needed. FOR SLEEP. furosemide (LASIX) 20 mg tablet Take 1 tablet by mouth twice daily. potassium chloride ER (K-DUR, KLOR-CON) 20 mEq tablet Take 1 tablet by mouth four times daily. Biotin 2,500 mcg cap Take 1 capsule by mouth once daily. aspirin, enteric coated (ASPIRIN, ENTERIC COATED) 81 mg EC tablet Take 81 mg by mouth once daily. lactobacillus rhamnosus-Inulin (CULTURELLE PROBIOTICS) 10 billion cell -245 mg cpSP Take by mouth once daily. PHYSICAL EXAMINATION: VITAL SIGNS: BP 126/78 Pulse 56 Ht 5' 1 (1.55m) Wt 184 lb 12.8 oz (83.8kg) BMI 34.94 kg/(m2). Chest: Clear to percussion and auscultation. Trachea is midline. Air entry is equal. Cardiac: Regular rhythm. S1 and S2 are normal. PMI is nondisplaced. There is a soft systolic ejection murmur. Carotids are brisk without bruits. JVP is less than 10 cm. Abdomen: Soft and nontender. There are no pulsatile masses or bruits. No liver enlargement. Bowel sounds are active. Extremities: No edema. Pulses are intact and symmetrical. EKG shows sinus rhythm and is within normal limits. There is no significant change. Recent labs reviewed. CBC is within normal limits. Renal function is stable. LDL was 102. TSH is normal. Electronically Signed: Chon Banks MD January 08, 2018 9:12 AM CC: Erma Parker III MD THOMASOV Observed: 01/08/2018 Status: COMPLETED Source: [place] 8:30 AM [facility]INIC OTHER CAMPUS REPOSITORY Office Visit ([facility]) ALBERTO STRICKLAND ([id number]) 1950 F Date Time Provider Department 01/08/18 8:30 AM CHON BANKS [facility] During your visit today, we recorded the following information about you: Pulse Blood pressure Weight Height 56/minute 126/78 83.8 kg 1.549 m Chon Banks MD 01/08/2018 12:50 PM Signed PERTINENT CARDIAC HISTORY HTN Chest pain - normal cath HL - statin intolerant ADHERENCE TO GUIDELINES AN-I or ARB for HF with prior LVEFANDlt;40 (NQF 0081) - N/A ASA or Plavix for ASHD (NQF 0067) - met Beta gustavo for ASHD with prior IN or prior LVEFANDlt;40 (NQF 0070) - N/A Beta gustavo for HF with prior LVEFANDlt;40 (NQF 0083) - N/A AN-I or ARB for ASHD with DM or prior LVEFANDlt;40 (NQF 0066) - N/A Statin therapy for ASHD or FHL or DM - intolerant BMI documented and plan if ANDgt;25 (NQF 0421) - lifestyle recommendation form Tobacco use screening and referral (NQF 0028) - lifestyle recommendation form Recommendation for whole food, plant based diet - lifestyle recommendation form CLINICAL IMPRESSION/PLAN: Alberto Strickland has stable, likely nonischemic, chest pain. I've encouraged her to use nitroglycerin if this pattern changes. There has been no change in the overall frequency with various doses of long-acting nitrates and Norvasc. I've asked her to continue her current exercise program and to increase activity as tolerated. I will see her in 8 months or as needed. Written and verbal health teaching given to patient, patient verbalizes understanding and agrees with treatment plan. This note was generated using Dragon voice recognition system, and there may be some incorrect words, spellings, and punctuation that were not noted in checking the note before saving. DIAGNOSIS FOR VISIT: Chest pain HISTORY OF PRESENT ILLNESS Alberto Strickland returns for follow-up of her chest pain syndrome. She has tolerated the decrease the Norvasc without exacerbation of chest pain. Her edema has improved. Exercise tolerance is stable. She still has some chest discomfort with exercise of any type. This is associated with pain in the upper back as well and is likely musculoskeletal. She's had minimal edema. She has used no nitroglycerin. She denies syncope, TIAs, amaurosis, claudication. She's had a few palpitations. ALLERGIES: ALLERGIES Allergen Reactions - Codeine Intolerance Chest pain - Aceon [Perindopril * Rash, Cough - Imdur [Isosorbide] Other: See Comments headaches - Lipitor [Atorvastat* Other: See Comments muscle cramps - Lisinopril Cough dry hacking cough - Spironolactone Other: See Comments headache - Beta Blockers [Othe* Cough dry hacking cough - Hctz [Other] Rash CURRENT OUTPATIENT MEDICATIONS: gabapentin (NEURONTIN) 300 mg capsule Take 1 capsule by mouth daily at bedtime for 90 days. levothyroxine (SYNTHROID) 88 mcg tablet Take 1 tablet by mouth once daily. losartan (COZAAR) 100 mg tablet Take 1 tablet by mouth once daily. labetalol (TRANDATE) 100 mg tablet Take 1 tablet by mouth twice daily. pantoprazole DR (PROTONIX) 40 mg tablet Take 1 tablet by mouth once daily. Take on empty stomach, 1/2 hr before meal. amLODIPine (NORVASC) 5 mg tablet Take 1 tablet by mouth once daily. isosorbide mononitrate ER (IMDUR) 30 mg 24 hr tablet Take 0.5 tablets by mouth once daily. temazepam (RESTORIL) 30 mg cap Take 1 capsule by mouth at bedtime as needed. FOR SLEEP. furosemide (LASIX) 20 mg tablet Take 1 tablet by mouth twice daily. potassium chloride ER (K-DUR, KLOR-CON) 20 mEq tablet Take 1 tablet by mouth four times daily. Biotin 2,500 mcg cap Take 1 capsule by mouth once daily. aspirin, enteric coated (ASPIRIN, ENTERIC COATED) 81 mg EC tablet Take 81 mg by mouth once daily. lactobacillus rhamnosus-Inulin (CULTURELLE PROBIOTICS) 10 billion cell -245 mg cpSP Take by mouth once daily. PHYSICAL EXAMINATION: VITAL SIGNS: BP 126/78 Pulse 56 Ht 5' 1ANDquot; (1.55m) Wt 184 lb 12.8 oz (83.8kg) BMI 34.94 kg/(m2). Chest: Clear to percussion and auscultation. Trachea is midline. Air entry is equal. Cardiac: Regular rhythm. S1 and S2 are normal. PMI is nondisplaced. There is a soft systolic ejection murmur. Carotids are brisk without bruits. JVP is less than 10 cm. Abdomen: Soft and nontender. There are no pulsatile masses or bruits. No liver enlargement. Bowel sounds are active. Extremities: No edema. Pulses are intact and symmetrical. EKG shows sinus rhythm and is within normal limits. There is no significant change. Recent labs reviewed. CBC is within normal limits. Renal function is stable. LDL was 102. TSH is normal. Electronically Signed: Chon Banks MD January 08, 2018 9:12 AM CC: SYDNI Otoole MD, MD 01/08/2018 9:12 AM Signed . LIFESTYLE CHANGE A healthy lifestyle is the most important component of your overall treatment plan. Please give serious thought to the following areas and commit to making nursing home changes. EAT A WHOLE FOOD, PLANT BASED DIET The nutrition your body gets is more important than the medicine you take. What matters most is the overall way you eat. We encourage you to minimize the use of animal products (which include dairy and all meats except fatty fish) and use whole, unprocessed plant foods to provide your protein, vitamins and other nutrients. We have a lot of information to share with you on this topic. We also hold Shared Medical Appointments, where you can come visit with Dr. Banks in the company of other patients and spend over an hour talking about the challenges of changing the way you eat. This is not a ANDquot;dietANDquot;. It is a way of life that you will keep with you. EXERCISE REGULARLY It is not important to spend hours in the gym, lifting weights and perspiring heavily. A total of 2-3 hours per week of aerobic (causing you to be moderately short of breath) exercise is sufficient to improve your health. Talk to us before you begin a new exercise program, if you have heart disease or experience shortness of breath or chest pain. REDUCE STRESS Chronic emotional and physical stress leads to disease. Ways of reducing stress include meditation, visualization, prayer, yoga and other forms of relaxation therapy. Consistency is the conway. Find a technique that works for you and do it every day. CULTIVATE RELATIONSHIPS Loneliness and isolation have a major negative impact on health. Seek out others who can love, care for and nurture you. Avoid hurtful relationships. MAINTAIN IDEAL BODY WEIGHT The best way to do this is to do all the things above. Our bodies naturally find the right weight if we keep moving and feed ourselves the right food. If your BMI is greater than 25, we strongly recommend a referral to a weight management program. Please speak to us or your family physician about available programs. AVOID NICOTINE IN ALL FORMS This includes all tobacco products, whether chewed, smoked, vaped, or rubbed on the skin. Smoking cessation programs, which can make use of tobacco substitutes, medications to suppress cravings and behavior management, are available. Please contact your family physician about programs in your area. Referring Provider: CHON BANKS [[id number]] Allergies As of Date: 01/08/2018 Noted Allergy Reaction CODEINE 12/09/2009 5 - Intolerance Comments: Chest pain ACEON (PERINDOPRIL ERBUMINE) 11/02/2005 2 - Rash 3 - Cough IMDUR (ISOSORBIDE) 03/06/2012 14 - Other: See Comments Comments: headaches LIPITOR (ATORVASTATIN CALCIUM) 10/21/2014 14 - Other: See Comments Comments: muscle cramps LISINOPRIL 10/07/2005 3 - Cough Comments: dry hacking cough SPIRONOLACTONE 03/21/2014 14 - Other: See Comments Comments: headache beta blockers [Other] 10/07/2005 3 - Cough Comments: dry hacking cough hctz [Other] 10/07/2005 2 - Rash Date Reviewed: 01/08/2018 Reviewed by: Anusha Galicia - Fully Assessed Reason for Visit: Follow Up [171] Primary Visit Diagnosis:Chest pain, unspecified type [R07.9] Other Visit Diagnosis:Hypertension, essential [I10] Order(s):ECG B/O W INTERP (MED OFFICE) [ECG06] Order #: [id number] Prescriptions as of 01/08/2018 Sig: GABAPENTIN 300 MG CAPSULE Take 1 capsule by mouth daily* LEVOTHYROXINE 88 MCG TABLET Take 1 tablet by mouth once d* LOSARTAN 100 MG TABLET Take 1 tablet by mouth once d* LABETALOL 100 MG TABLET Take 1 tablet by mouth twice * PANTOPRAZOLE 40 MG TABLET,DEL* Take 1 tablet by mouth once d* AMLODIPINE 5 MG TABLET Take 1 tablet by mouth once d* ISOSORBIDE MONONITRATE ER 30 * Take 0.5 tablets by mouth onc* TEMAZEPAM 30 MG CAPSULE Take 1 capsule by mouth at be* FUROSEMIDE 20 MG TABLET Take 1 tablet by mouth twice * POTASSIUM CHLORIDE ER 20 MEQ * Take 1 tablet by mouth four t* BIOTIN 2,500 MCG CAPSULE Take 1 capsule by mouth once * ASPIRIN 81 MG TABLET,DELAYED * Take 81 mg by mouth once ariane* LACTOBACIL RHAMNOSUS GG 10 BI* Take by mouth once daily. Problem List As Of Date 01/08/2018 Noted Resolved BENIGN HYPERTENSION [I10] More... More... PERS HX COLONIC POLYPS [Z86.010] More... 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] INVALID FOR* CERVICAL DISC DEGEN [M50.30] INVALID FOR* Degenerative arthritis of knee [M17.10] INVALID FOR* Trigeminal neuralgia [G50.0] INVALID FOR* Inadequate pelvic muscles [M62.9] INVALID FOR* Mixed stress and urge urinary incontinence [N39*INVALID FOR* Uterine prolapse [N81.4] INVALID FOR* Cystocele, midline [N81.11] INVALID FOR* Esophageal reflux [K21.9] INVALID FOR* Delayed gastric emptying [K30] INVALID FOR* Trochanteric bursitis of left hip [M70.62] INVALID FOR* Hypokalemia [E87.6] INVALID FOR* Thoracic radiculopathy due to degenerative join*INVALID FOR* Lumbar radiculopathy [M54.16] INVALID FOR* Tethered spinal cord (HCC) [Q06.8] INVALID FOR* Abdominal pain [R10.9] INVALID FOR*09/01/2016 Poor sleep hygiene [Z72.821] INVALID FOR* Impaired fasting glucose [R73.01] INVALID FOR* Thoracic spine pain [M54.6] INVALID FOR* Lumbar disc disease with radiculopathy [M51.16] INVALID FOR* Venous insufficiency (chronic) (peripheral) [I8*INVALID FOR* Other instructions from your clinician: . LIFESTYLE CHANGE A healthy lifestyle is the most important component of your overall treatment plan. Please give serious thought to the following areas and commit to making nursing home changes. EAT A WHOLE FOOD, PLANT BASED DIET The nutrition your body gets is more important than the medicine you take. What matters most is the overall way you eat. We encourage you to minimize the use of animal products (which include dairy and all meats except fatty fish) and use whole, unprocessed plant foods to provide your protein, vitamins and other nutrients. We have a lot of information to share with you on this topic. We also hold Shared Medical Appointments, where you can come visit with Dr. Banks in the company of other patients and spend over an hour talking about the challenges of changing the way you eat. This is not a diet. It is a way of life that you will keep with you. EXERCISE REGULARLY It is not important to spend hours in the gym, lifting weights and perspiring heavily. A total of 2-3 hours per week of aerobic (causing you to be moderately short of breath) exercise is sufficient to improve your health. Talk to us before you begin a new exercise program, if you have heart disease or experience shortness of breath or chest pain. REDUCE STRESS Chronic emotional and physical stress leads to disease. Ways of reducing stress include meditation, visualization, prayer, yoga and other forms of relaxation therapy. Consistency is the conway. Find a technique that works for you and do it every day. CULTIVATE RELATIONSHIPS Loneliness and isolation have a major negative impact on health. Seek out others who can love, care for and nurture you. Avoid hurtful relationships. MAINTAIN IDEAL BODY WEIGHT The best way to do this is to do all the things above. Our bodies naturally find the right weight if we keep moving and feed ourselves the right food. If your BMI is greater than 25, we strongly recommend a referral to a weight management program. Please speak to us or your family physician about available programs. AVOID NICOTINE IN ALL FORMS This includes all tobacco products, whether chewed, smoked, vaped, or rubbed on the skin. Smoking cessation programs, which can make use of tobacco substitutes, medications to suppress cravings and behavior management, are available. Please contact your family physician about programs in your area. Encounter Status:Closed by CHON BANKS MD on 01/08/18 OBSOLETE Observed: 11/03/2017 Status: COMPLETED Source: [place] 12:00 AM [facility] REPOSITORY Refill ([facility]AMPWS) ALBERTO STRICKLAND ([id number]) 1950 F Date Time Provider Department 11/03[facility]17 [facility] During your visit today, we recorded the following information about you: Ly Christian Psr 11/03/2017 2:50 PM Signed Patient has been identified by name and date of : Yes RX INSTRUCTIONS: Patient is out of the medication tomorrow - Please send today. Patient aware RX will be sent to pharmacy. No need to notify patient. Ly Christian Psr Allergies As of Date: 11/03/2017 Noted Allergy Reaction CODEINE 12/09/2009 5 - Intolerance Comments: Chest pain ACEON (PERINDOPRIL ERBUMINE) 11/02/2005 2 - Rash 3 - Cough IMDUR (ISOSORBIDE) 03/06/2012 14 - Other: See Comments Comments: headaches LIPITOR (ATORVASTATIN CALCIUM) 10/21/2014 14 - Other: See Comments Comments: muscle cramps LISINOPRIL 10/07/2005 3 - Cough Comments: dry hacking cough SPIRONOLACTONE 03/21/2014 14 - Other: See Comments Comments: headache beta blockers [Other] 10/07/2005 3 - Cough Comments: dry hacking cough hctz [Other] 10/07/2005 2 - Rash Date Reviewed: 10/31/2017 Reviewed by: Martha Huang MA - Fully Assessed Reason for Visit: Refill Request [94] Visit Diagnosis: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 [M47.24] Order(s):gabapentin (NEURONTIN) 300 mg capsuleTake 1 capsule by mouth daily at bedtime for 90 days.Disp: 90 capsuleRfl: 1 Prescriptions as of 11/03/2017 Sig: GABAPENTIN 300 MG CAPSULE Take 1 capsule by mouth daily* LEVOTHYROXINE 88 MCG TABLET Take 1 tablet by mouth once d* LOSARTAN 100 MG TABLET Take 1 tablet by mouth once d* LABETALOL 100 MG TABLET Take 1 tablet by mouth twice * PANTOPRAZOLE 40 MG TABLET,DEL* Take 1 tablet by mouth once d* AMLODIPINE 5 MG TABLET Take 1 tablet by mouth once d* ISOSORBIDE MONONITRATE ER 30 * Take 0.5 tablets by mouth onc* TEMAZEPAM 30 MG CAPSULE Take 1 capsule by mouth at be* FUROSEMIDE 20 MG TABLET Take 1 tablet by mouth twice * POTASSIUM CHLORIDE ER 20 MEQ * Take 1 tablet by mouth four t* BIOTIN 2,500 MCG CAPSULE Take 1 capsule by mouth once * ASPIRIN 81 MG TABLET,DELAYED * Take 81 mg by mouth once ariaen* LACTOBACIL RHAMNOSUS GG 10 BI* Take by mouth once daily. Problem List As Of Date 11/03/2017 Noted Resolved BENIGN HYPERTENSION [I10] More... More... PERS HX COLONIC POLYPS [Z86.010] More... 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] INVALID FOR* CERVICAL DISC DEGEN [M50.30] INVALID FOR* Degenerative arthritis of knee [M17.10] INVALID FOR* Trigeminal neuralgia [G50.0] INVALID FOR* Inadequate pelvic muscles [M62.9] INVALID FOR* Mixed stress and urge urinary incontinence [N39*INVALID FOR* Uterine prolapse [N81.4] INVALID FOR* Cystocele, midline [N81.11] INVALID FOR* Esophageal reflux [K21.9] INVALID FOR* Delayed gastric emptying [K30] INVALID FOR* Trochanteric bursitis of left hip [M70.62] INVALID FOR* Hypokalemia [E87.6] INVALID FOR* Thoracic radiculopathy due to degenerative join*INVALID FOR* Lumbar radiculopathy [M54.16] INVALID FOR* Tethered spinal cord (HCC) [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 Medications Discontinued During This Encounter gabapentin (NEURONTIN) 300 mg capsule 01/03/2017 11/03/2017 Class: Med Update Route: ORAL Sig: Take 1 capsule by mouth daily at bedtime. Disc: Reason for discontinue is not on file. Encounter Status:Closed by ERMA PARKER III, MD on 11/03/17 CNOV Observed: 10/31/2017 Status: COMPLETED Source: [place] 8:20 AM [facility] REPOSITORY [facility] STRICKLAND ([id number]) 1950 F Date Time Provider Department 10/31/17 8:20 AM JJ ZHANG ([facility] During your visit today, we recorded the following information about you: Pulse Blood pressure Weight Height 71/minute 126/72 82.2 kg 1.549 m Jj Zhang RN EXPLOSIVE OPERATOR SUPERVISOR 10/31/2017 9:02 AM Signed Alberto Strickland a 67 year old female who is self referred for the evaluation of ANDquot;bowel problemsANDquot;. The patient has been seen previously by Dr. Shaver. The patient denies a personal and family history of colon cancer. The patient was seen by Dr. Shaver for upper endoscopy and colonoscopy 5/21/14 for generalized abdominal pain. The procedure report has been reviewed and findings as follows: EGD Impression: - Normal esophagus. ? - Multiple gastric polyps. Biopsied. ? - Normal antrum. Biopsied. ? - Normal examined duodenum. Colonoscopy Impression:?- Diverticulosis in the sigmoid colon and in the ? descending colon. ? - One 5 mm polyp at 20 cm proximal to the anus. Resected ? and retrieved. FINAL DIAGNOSIS 1. Antrum, biopsy (A) - Reactive gastropathy. 2. Gastric body polyp, biopsy (B) - Fundic gland polyp. 3. Colon at 20 cm, polypectomy (C) - Hyperplastic polyp. Component Latest Ref Rng ANDamp; Units 08/22/2017 WBC 3.70 - 11.00 k/uL 8.48 RBC 3.90 - 5.20 m/uL 4.76 Hemoglobin 11.5 - 15.5 g/dL 13.5 Hematocrit 36.0 - 46.0 % 42.2 MCV 80.0 - 100.0 fL 88.7 MCH 26.0 - 34.0 pG 28.4 MCHC 30.5 - 36.0 g/dL 32.0 RDW-CV 11.5 - 15.0 % 13.2 Platelet Count 150 - 400 k/uL 309 MPV 9.0 - 12.7 fL 10.4 Neut% % 59.5 Abs Neut (ANC) 1.45 - 7.50 k/uL 5.05 Lymph% % 27.8 Abs Lymph 1.00 - 4.00 k/uL 2.36 Blaine% % 7.7 Abs Blaine ANDlt;0.87 k/uL 0.65 Eosin% % 3.9 Abs Eosin ANDlt;0.46 k/uL 0.33 Baso% % 1.1 Abs Baso ANDlt;0.11 k/uL 0.09 Nucleated Reds 0 /100 WBC 0.0 Absolute nRBC ANDlt;0.01 k/uL ANDlt;0.01 Diff Type Auto Diff Component Latest Ref Rng ANDamp; Units 08/22/2017 Protein, Total 6.3 - 8.0 g/dL 7.4 Albumin 3.9 - 4.9 g/dL 4.2 Calcium 8.5 - 10.2 mg/dL 9.1 Bilirubin, Total 0.2 - 1.3 mg/dL 0.4 Alkaline Phosphatase 32 - 117 U/L 102 AST 13 - 35 U/L 26 Glucose 74 - 99 mg/dL 93 BUN 7 - 21 mg/dL 14 Creatinine 0.58 - 0.96 mg/dL 1.04 (H) Sodium 136 - 144 mmol/L 138 Potassium 3.7 - 5.1 mmol/L 4.1 Chloride 97 - 105 mmol/L 98 CO2 22 - 30 mmol/L 27 Anion Gap 9 - 18 mmol/L 13 ALT 7 - 38 U/L 24 eGFR- ANDgt;60 eGFR-All Other Races . 53 Amylase 30 - 104 U/L 53 Lipase 16 - 61 U/L 38 Component Latest Ref Rng ANDamp; Units 08/22/2017 H. pylori IgG, Qualitative Negative Negative H pylori Ab, IgG U/mL 0.5 Presenting complaint: The patient presents today stating ANDquot;I have these issues going on with my bowels. I also have this itching in my rectum every nightANDquot;. Using Prep H topically. No bleeding. The patient asks about pinworms. Reports having a cat that has had worms - currently being treated. Concerned this could be causing the anal itching. Goes on to say ANDquot;my stomach will just rumbles. I hear water trickling and wondering if I have leaky gutANDquot;. She is aware of having irritable bowel. We briefly discussed leaky gut. Having a bowel movement once a day. Stools are soft and small pieces. I have recommended resuming Benefiber daily. The patient reports having increased gas. Does have milk on cereal. There is a high likeliness that she has become lactose intolerant. I have recommended she use Lactose Free milk for at least 3-4 weeks to see if this decreases the gassiness. REVIEW OF SYSTEMS: GENERAL: No weight loss, malaise or fevers GI: The patient states that her appetite has been good. She does get hungry. There has been no nausea, no vomiting. She denies dysphagia and denies odynophagia. There has not been indigestion or heartburn. There has not been regurgitation. Bowel habits have been regular. There has not recently been diarrhea. There has partially been constipation. The patient denies rectal bleeding. There has not been melena. No new or worsening abdominal pain. Occasional LLQ discomfort. All other reviewed and negative other than HPI. PAST MEDICAL HISTORY Diagnosis Date - Contact dermatitis and other eczema - Degenerative arthritis of knee 05/24/2011 - Delayed gastric emptying 07/24/2012 - Diarrhea - Diverticulosis of colon (without mention of hemorrhage) Diverticulosis - Essential hypertension, benign - Hypokalemia 09/25/2012 - Impaired fasting glucose 11/19/2015 - Inadequate pelvic muscles 01/17/2012 - Lumbar disc disease with radiculopathy 09/01/2016 - thyrotoxicosis - Other osteoporosis 12/21/06 - Personal history of colonic polyps Colon polyps - Tethering of spinal cord (HCC) 2014 - Trigeminal neuralgia 10/11/2011 - Trochanteric bursitis of left hip 07/24/2012 - Unspecified hemorrhoids without mention of complication Hemorrhoids PAST SURGICAL HISTORY Procedure Laterality Date - COLONOSCOP W/ OR W/O BRSH SPEC Colonoscopy - COLONOSCOP W/ OR W/O BRSH SPEC 07/13/07 Lax colon - COLONOSCOP W/ OR W/O BRSH SPEC 03/26/14 Colonoscopy - DECOMPRESSION PLANTAR DIGITAL NERVE 1999 heel spur/ plantar fasciitis repair Rt - EGD W/O BRSH SPECIMEN W/BX 07/13/07 Gastritis, fundic gland polyps - EGD W/O OR W/BRUSH/WASH 03/26/14 EGD - LAPAROSCOPIC CHOLEYCYSTECTOMY Cholecystectomy, lap - LIGATE FALLOPIAN TUBE - REPAIR ROTATOR CUFF,ACUTE 1992 Rotator cuff repair, right - REVISE MEDIAN N/CARPAL TUNNEL SURG Carpal tunnel decomp bilateral - STRESS TEST,COMPLETE_*FL FAMILY HISTORY Problem Relation Age of Onset - Diabetes Mother - Heart Mother - Stroke Mother - Hypertension Mother - Breast Cancer Maternal Aunt - Cancer Paternal Grandfather skin - Heart Sister - Hypertension Sister - Hypertension Sister - Hypertension Brother - Hypertension Brother - Lipids Brother - Lipids Sister - Cancer Brother Current Outpatient Prescriptions: temazepam (RESTORIL) 30 mg cap Take 1 capsule by mouth at bedtime as needed. FOR SLEEP. Disp: 30 capsule Rfl: 1 furosemide (LASIX) 20 mg tablet Take 1 tablet by mouth twice daily. Disp: 60 tablet Rfl: 11 potassium chloride ER (K-DUR, KLOR-CON) 20 mEq tablet Take 1 tablet by mouth four times daily. Disp: 360 tablet Rfl: 3 amLODIPine (NORVASC) 5 mg tablet Take 1 tablet by mouth once daily. Disp: 270 tablet Rfl: 3 Biotin 2,500 mcg cap Take 1 capsule by mouth once daily. Disp: Rfl: isosorbide mononitrate ER (IMDUR) 30 mg 24 hr tablet Take 0.5 tablets by mouth once daily. Disp: 30 tablet Rfl: 6 gabapentin (NEURONTIN) 300 mg capsule Take 1 capsule by mouth daily at bedtime. Disp: Rfl: losartan (COZAAR) 100 mg tablet Take 1 tablet by mouth once daily. Disp: 90 tablet Rfl: 3 aspirin, enteric coated (ASPIRIN, ENTERIC COATED) 81 mg EC tablet Take 81 mg by mouth once daily. Disp: Rfl: pantoprazole DR (PROTONIX) 40 mg tablet Take 1 tablet by mouth once daily. Take on empty stomach, 1/2 hr before meal. Disp: 90 tablet Rfl: 3 levothyroxine (SYNTHROID) 88 mcg tablet Take 1 tablet by mouth once daily. Disp: 90 tablet Rfl: 3 labetalol (TRANDATE) 100 mg tablet Take 1 tablet by mouth twice daily. Disp: 180 tablet Rfl: 3 lactobacillus rhamnosus-Inulin (CULTUREE PROBIOTICS) 10 billion cell -245 mg cpSP Take by mouth once daily. Disp: Rfl: No current facility-administered medications for this visit. SOCIAL HISTORY: Reviewed and unchanged PHYSICAL EXAMINATION: Blood pressure 126/72, pulse 71, height 154.9 cm (5' 1ANDquot;), weight 82.2 kg (181 lb 3.2 oz). General Appearance: Well appearing, alert, in no acute distress, well-hydrated, well nourished. Skin: Skin color, texture, turgor normal. Eyes: Anicteric sclera. Lungs: Lungs clear to auscultation. Heart: RRR without murmur. Abdomen: Abdomen soft, non-tender. Bowel sounds normal. No masses, organomegaly. Extremities: No deformities, edema. Perianal: No lesions. Slight excoriation. Moist and with the appearance of mild fungal Impression: 1) perianal dermatitis - appears fungal 2)probable lactose intolerance 3)IBS Plan: I have recommended witch olivia as well as an antifungal powder or cream. Also recommended using Lactose Free milk for at least 3 weeks to see if the gassiness decreases. Recommended patient resume benefiber, taking a teaspoon daily for the next 3 weeks. She may then increase to 2 teaspoons daily for 3 weeks. At that time she may increase to a tablespoon a day, eventually increasing more, if desired. I have suggested that she not stop using it. I have asked her to call with an update in 3-4 weeks. Sooner, if needed. She agrees with this plan. I have personally interviewed and examined this patient. I have reviewed the information that the MA entered for this encounter. Greater than 30 minutes total time used this visit to review old chart, review new information, update current history and evaluate patient. A majority of the time was spent in discussion and counseling to formulate the plan. LOLI Dasilva CNP, RN CNP 10/31/2017 8:49 AM Addendum Begin Benefiber. Start by taking one teaspoon in 8 oz of liquid daily for 3-4 weeks. Increase to two teaspoons daily for three weeks. Finally take one tablespoon daily. At that point you may divide the dose and take twice a day, if you'd like. Do not stop using this. Use Lactose Free milk for at least 3 weeks. This might help with the gassiness. Consider using Witch Olivia to pat the anal area. Use an antifungal cream or powder. Like Lotrimin. Call with an update in 4 weeks or so. [phone] and ask for the GI nurse. Referring Provider: SELF [[id number]] Allergies As of Date: 10/31/2017 Noted Allergy Reaction CODEINE 12/09/2009 5 - Intolerance Comments: Chest pain ACEON (PERINDOPRIL ERBUMINE) 11/02/2005 2 - Rash 3 - Cough IMDUR (ISOSORBIDE) 03/06/2012 14 - Other: See Comments Comments: headaches LIPITOR (ATORVASTATIN CALCIUM) 10/21/2014 14 - Other: See Comments Comments: muscle cramps LISINOPRIL 10/07/2005 3 - Cough Comments: dry hacking cough SPIRONOLACTONE 03/21/2014 14 - Other: See Comments Comments: headache beta blockers [Other] 10/07/2005 3 - Cough Comments: dry hacking cough hctz [Other] 10/07/2005 2 - Rash Date Reviewed: 10/31/2017 Reviewed by: Martha Huang MA - Fully Assessed Reason for Visit: bowel issues [Other] Primary Visit Diagnosis:Dermatitis of perianal region [L30.9] Other Visit Diagnoses:Lactose intolerance [E73.9] Postprandial abdominal bloating [R14.0] Prescriptions as of 10/31/2017 Sig: TEMAZEPAM 30 MG CAPSULE Take 1 capsule by mouth at be* FUROSEMIDE 20 MG TABLET Take 1 tablet by mouth twice * POTASSIUM CHLORIDE ER 20 MEQ * Take 1 tablet by mouth four t* AMLODIPINE 5 MG TABLET Take 1 tablet by mouth once d* BIOTIN 2,500 MCG CAPSULE Take 1 capsule by mouth once * ISOSORBIDE MONONITRATE ER 30 * Take 0.5 tablets by mouth onc* GABAPENTIN 300 MG CAPSULE Take 1 capsule by mouth daily* LOSARTAN 100 MG TABLET Take 1 tablet by mouth once d* ASPIRIN 81 MG TABLET,DELAYED * Take 81 mg by mouth once ariane* PANTOPRAZOLE 40 MG TABLET,DEL* Take 1 tablet by mouth once d* LEVOTHYROXINE 88 MCG TABLET Take 1 tablet by mouth once d* LABETALOL 100 MG TABLET Take 1 tablet by mouth twice * LACTOBACIL RHAMNOSUS GG 10 BI* Take by mouth once daily. Problem List As Of Date 10/31/2017 Noted Resolved BENIGN HYPERTENSION [I10] More... More... PERS HX COLONIC POLYPS [Z86.010] More... 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] INVALID FOR* CERVICAL DISC DEGEN [M50.30] INVALID FOR* Degenerative arthritis of knee [M17.10] INVALID FOR* Trigeminal neuralgia [G50.0] INVALID FOR* Inadequate pelvic muscles [M62.9] INVALID FOR* Mixed stress and urge urinary incontinence [N39*INVALID FOR* Uterine prolapse [N81.4] INVALID FOR* Cystocele, midline [N81.11] INVALID FOR* Esophageal reflux [K21.9] INVALID FOR* Delayed gastric emptying [K30] INVALID FOR* Trochanteric bursitis of left hip [M70.62] INVALID FOR* Hypokalemia [E87.6] INVALID FOR* Thoracic radiculopathy due to degenerative join*INVALID FOR* Lumbar radiculopathy [M54.16] INVALID FOR* Tethered spinal cord (HCC) [Q06.8] INVALID FOR* Abdominal pain [R10.9] INVALID FOR*09/01/2016 Poor sleep hygiene [Z72.821] INVALID FOR* Impaired fasting glucose [R73.01] INVALID FOR* Thoracic spine pain [M54.6] INVALID FOR* Lumbar disc disease with radiculopathy [M51.16] INVALID FOR* Venous insufficiency (chronic) (peripheral) [I8*INVALID FOR* Other instructions from your clinician: Begin Benefiber. Start by taking one teaspoon in 8 oz of liquid daily for 3-4 weeks. Increase to two teaspoons daily for three weeks. Finally take one tablespoon daily. At that point you may divide the dose and take twice a day, if you'd like. Do not stop using this. Use Lactose Free milk for at least 3 weeks. This might help with the gassiness. Consider using Witch Olivia to pat the anal area. Use an antifungal cream or powder. Like Lotrimin. Call with an update in 4 weeks or so. [phone] and ask for the GI nurse. Encounter Status:Closed by JJ ZHANG CNP on 10/31/17 PROGRESS Observed: 10/31/2017 Status: COMPLETED Source: [place] 8:15 AM [facility] REPOSITORY O ID: [id number] Author: Jj (Gordo) Leatha Service: (none) Author Type: Nurse Practitioner Type: Progress Notes Filed: 10/31/2017 9:02 AM Note Text: Alberto Strickland a 67 year old female who is self referred for the evaluation of bowel problems. The patient has been seen previously by Dr. Shaver. The patient denies a personal and family history of colon cancer. The patient was seen by Dr. Shaver for upper endoscopy and colonoscopy 03/26/14 for generalized abdominal pain. The procedure report has been reviewed and findings as follows: EGD Impression: - Normal esophagus. ? - Multiple gastric polyps. Biopsied. ? - Normal antrum. Biopsied. ? - Normal examined duodenum. Colonoscopy Impression:?- Diverticulosis in the sigmoid colon and in the ? descending colon. ? - One 5 mm polyp at 20 cm proximal to the anus. Resected ? and retrieved. FINAL DIAGNOSIS 1. Antrum, biopsy (A) - Reactive gastropathy. 2. Gastric body polyp, biopsy (B) - Fundic gland polyp. 3. Colon at 20 cm, polypectomy (C) - Hyperplastic polyp. Component Latest Ref Rng AND Units 08/22/2017 WBC 3.70 - 11.00 k/uL 8.48 RBC 3.90 - 5.20 m/uL 4.76 Hemoglobin 11.5 - 15.5 g/dL 13.5 Hematocrit 36.0 - 46.0 % 42.2 MCV 80.0 - 100.0 fL 88.7 MCH 26.0 - 34.0 pG 28.4 MCHC 30.5 - 36.0 g/dL 32.0 RDW-CV 11.5 - 15.0 % 13.2 Platelet Count 150 - 400 k/uL 309 MPV 9.0 - 12.7 fL 10.4 Neut% % 59.5 Abs Neut (ANC) 1.45 - 7.50 k/uL 5.05 Lymph% % 27.8 Abs Lymph 1.00 - 4.00 k/uL 2.36 Blaine% % 7.7 Abs Blaine <0.87 k/uL 0.65 Eosin% % 3.9 Abs Eosin <0.46 k/uL 0.33 Baso% % 1.1 Abs Baso <0.11 k/uL 0.09 Nucleated Reds 0 /100 WBC 0.0 Absolute nRBC <0.01 k/uL <0.01 Diff Type Auto Diff Component Latest Ref Rng AND Units 08/22/2017 Protein, Total 6.3 - 8.0 g/dL 7.4 Albumin 3.9 - 4.9 g/dL 4.2 Calcium 8.5 - 10.2 mg/dL 9.1 Bilirubin, Total 0.2 - 1.3 mg/dL 0.4 Alkaline Phosphatase 32 - 117 U/L 102 AST 13 - 35 U/L 26 Glucose 74 - 99 mg/dL 93 BUN 7 - 21 mg/dL 14 Creatinine 0.58 - 0.96 mg/dL 1.04 (H) Sodium 136 - 144 mmol/L 138 Potassium 3.7 - 5.1 mmol/L 4.1 Chloride 97 - 105 mmol/L 98 CO2 22 - 30 mmol/L 27 Anion Gap 9 - 18 mmol/L 13 ALT 7 - 38 U/L 24 eGFR- >60 eGFR-All Other Races . 53 Amylase 30 - 104 U/L 53 Lipase 16 - 61 U/L 38 Component Latest Ref Rng AND Units 08/22/2017 H. pylori IgG, Qualitative Negative Negative H pylori Ab, IgG U/mL 0.5 Presenting complaint: The patient presents today stating I have these issues going on with my bowels. I also have this itching in my rectum every night. Using Prep H topically. No bleeding. The patient asks about pinworms. Reports having a cat that has had worms - currently being treated. Concerned this could be causing the anal itching. Goes on to say my stomach will just rumbles. I hear water trickling and wondering if I have leaky gut. She is aware of having irritable bowel. We briefly discussed leaky gut. Having a bowel movement once a day. Stools are soft and small pieces. I have recommended resuming Benefiber daily. The patient reports having increased gas. Does have milk on cereal. There is a high likeliness that she has become lactose intolerant. I have recommended she use Lactose Free milk for at least 3-4 weeks to see if this decreases the gassiness. REVIEW OF SYSTEMS: GENERAL: No weight loss, malaise or fevers GI: The patient states that her appetite has been good. She does get hungry. There has been no nausea, no vomiting. She denies dysphagia and denies odynophagia. There has not been indigestion or heartburn. There has not been regurgitation. Bowel habits have been regular. There has not recently been diarrhea. There has partially been constipation. The patient denies rectal bleeding. There has not been melena. No new or worsening abdominal pain. Occasional LLQ discomfort. All other reviewed and negative other than HPI. PAST MEDICAL HISTORY Diagnosis Date - Contact dermatitis and other eczema - Degenerative arthritis of knee 05/24/2011 - Delayed gastric emptying 07/24/2012 - Diarrhea - Diverticulosis of colon (without mention of hemorrhage) Diverticulosis - Essential hypertension, benign - Hypokalemia 09/25/2012 - Impaired fasting glucose 11/19/2015 - Inadequate pelvic muscles 01/17/2012 - Lumbar disc disease with radiculopathy 09/01/2016 - thyrotoxicosis - Other osteoporosis 12/21/06 - Personal history of colonic polyps Colon polyps - Tethering of spinal cord (HCC) 2014 - Trigeminal neuralgia 10/11/2011 - Trochanteric bursitis of left hip 07/24/2012 - Unspecified hemorrhoids without mention of complication Hemorrhoids PAST SURGICAL HISTORY Procedure Laterality Date - COLONOSCOP W/ OR W/O BRSH SPEC Colonoscopy - COLONOSCOP W/ OR W/O BRSH SPEC 07/13/07 Lax colon - COLONOSCOP W/ OR W/O BRSH SPEC 03/26/14 Colonoscopy - DECOMPRESSION PLANTAR DIGITAL NERVE 1999 heel spur/ plantar fasciitis repair Rt - EGD W/O BRSH SPECIMEN W/BX 07/13/07 Gastritis, fundic gland polyps - EGD W/O OR W/BRUSH/WASH 03/26/14 EGD - LAPAROSCOPIC CHOLEYCYSTECTOMY Cholecystectomy, lap - LIGATE FALLOPIAN TUBE - REPAIR ROTATOR CUFF,ACUTE 1992 Rotator cuff repair, right - REVISE MEDIAN N/CARPAL TUNNEL SURG Carpal tunnel decomp bilateral - STRESS TEST,COMPLETE_*FL FAMILY HISTORY Problem Relation Age of Onset - Diabetes Mother - Heart Mother - Stroke Mother - Hypertension Mother - Breast Cancer Maternal Aunt - Cancer Paternal Grandfather skin - Heart Sister - Hypertension Sister - Hypertension Sister - Hypertension Brother - Hypertension Brother - Lipids Brother - Lipids Sister - Cancer Brother Current Outpatient Prescriptions: temazepam (RESTORIL) 30 mg cap Take 1 capsule by mouth at bedtime as needed. FOR SLEEP. Disp: 30 capsule Rfl: 1 furosemide (LASIX) 20 mg tablet Take 1 tablet by mouth twice daily. Disp: 60 tablet Rfl: 11 potassium chloride ER (K-DUR, KLOR-CON) 20 mEq tablet Take 1 tablet by mouth four times daily. Disp: 360 tablet Rfl: 3 amLODIPine (NORVASC) 5 mg tablet Take 1 tablet by mouth once daily. Disp: 270 tablet Rfl: 3 Biotin 2,500 mcg cap Take 1 capsule by mouth once daily. Disp: Rfl: isosorbide mononitrate ER (IMDUR) 30 mg 24 hr tablet Take 0.5 tablets by mouth once daily. Disp: 30 tablet Rfl: 6 gabapentin (NEURONTIN) 300 mg capsule Take 1 capsule by mouth daily at bedtime. Disp: Rfl: losartan (COZAAR) 100 mg tablet Take 1 tablet by mouth once daily. Disp: 90 tablet Rfl: 3 aspirin, enteric coated (ASPIRIN, ENTERIC COATED) 81 mg EC tablet Take 81 mg by mouth once daily. Disp: Rfl: pantoprazole DR (PROTONIX) 40 mg tablet Take 1 tablet by mouth once daily. Take on empty stomach, 1/2 hr before meal. Disp: 90 tablet Rfl: 3 levothyroxine (SYNTHROID) 88 mcg tablet Take 1 tablet by mouth once daily. Disp: 90 tablet Rfl: 3 labetalol (TRANDATE) 100 mg tablet Take 1 tablet by mouth twice daily. Disp: 180 tablet Rfl: 3 lactobacillus rhamnosus-Inulin (CULTURELLE PROBIOTICS) 10 billion cell -245 mg cpSP Take by mouth once daily. Disp: Rfl: No current facility-administered medications for this visit. SOCIAL HISTORY: Reviewed and unchanged PHYSICAL EXAMINATION: Blood pressure 126/72, pulse 71, height 154.9 cm (5' 1), weight 82.2 kg (181 lb 3.2 oz). General Appearance: Well appearing, alert, in no acute distress, well-hydrated, well nourished. Skin: Skin color, texture, turgor normal. Eyes: Anicteric sclera. Lungs: Lungs clear to auscultation. Heart: RRR without murmur. Abdomen: Abdomen soft, non-tender. Bowel sounds normal. No masses, organomegaly. Extremities: No deformities, edema. Perianal: No lesions. Slight excoriation. Moist and with the appearance of mild fungal Impression: 1) perianal dermatitis - appears fungal 2)probable lactose intolerance 3)IBS Plan: I have recommended witch olivia as well as an antifungal powder or cream. Also recommended using Lactose Free milk for at least 3 weeks to see if the gassiness decreases. Recommended patient resume benefiber, taking a teaspoon daily for the next 3 weeks. She may then increase to 2 teaspoons daily for 3 weeks. At that time she may increase to a tablespoon a day, eventually increasing more, if desired. I have suggested that she not stop using it. I have asked her to call with an update in 3-4 weeks. Sooner, if needed. She agrees with this plan. I have personally interviewed and examined this patient. I have reviewed the information that the MA entered for this encounter. Greater than 30 minutes total time used this visit to review old chart, review new information, update current history and evaluate patient. A majority of the time was spent in discussion and counseling to formulate the plan. Jj Zhang RN CNP OBSOLETE Observed: 10/31/2017 Status: COMPLETED Source: [place] 12:00 AM [facility] REPOSITORY Refill ([facility]) ALBERTO STRICKLAND ([id number]) 1950 F Date Time Provider Department 10/31/17 JJ ZHANG (HAIR OR BEAUTY SALON ASSISTANT) [facility] During your visit today, we recorded the following information about you: Jj Zhang RN CNP 10/31/2017 8:52 AM Signed Patient seen in Gastro today. Requesting refills from PCP as noted. Aware she might need an appointment for continued refills. LOLI Dasilva CNP, MSN EXPLOSIVE OPERATOR SUPERVISOR 10/31/2017 5:25 PM Signed The following approved medication requests have been transmitted electronically. Signed Prescriptions Disp Refills levothyroxine (SYNTHROID) 88 mcg tablet 90 tablet 3 Sig: Take 1 tablet by mouth once daily. ESTEFANY: No Authorizing Provider: NANNETTE HUANG ([place]ORD[place]) losartan (COZAAR) 100 mg tablet 90 tablet 3 Sig: Take 1 tablet by mouth once daily. ESTEFANY: No Authorizing Provider: NANNETTE HUANG ([place]) labetalol (TRANDATE) 100 mg tablet 180 tablet 3 Sig: Take 1 tablet by mouth twice daily. ESTEFANY: No Authorizing Provider: NANNETTE HUANG ([place]) pantoprazole DR (PROTONIX) 40 mg tablet 90 tablet 3 Sig: Take 1 tablet by mouth once daily. Take on empty stomach, 1/2 hr before meal. ESTEFANY: No Authorizing Provider: NANNETTE HUANG (HAIR OR BEAUTY SALON ASSISTANT) amLODIPine (NORVASC) 5 mg tablet 270 tablet 3 Sig: Take 1 tablet by mouth once daily. ESTEFANY: No Authorizing Provider: NANNETTE HUANG (HAIR OR BEAUTY SALON ASSISTANT) isosorbide mononitrate ER (IMDUR) 30 mg 24 hr tablet 30 tablet 6 Sig: Take 0.5 tablets by mouth once daily. ESTEFANY: No Authorizing Provider: NANNETTE HUANG (HAIR OR BEAUTY SALON ASSISTANT) Nannette Huang, MSN EXPLOSIVE OPERATOR SUPERVISOR Allergies As of Date: 10/31/2017 Noted Allergy Reaction CODEINE 12/09/2009 5 - Intolerance Comments: Chest pain ACEON (PERINDOPRIL ERBUMINE) 11/02/2005 2 - Rash 3 - Cough IMDUR (ISOSORBIDE) 03/06/2012 14 - Other: See Comments Comments: headaches LIPITOR (ATORVASTATIN CALCIUM) 10/21/2014 14 - Other: See Comments Comments: muscle cramps LISINOPRIL 10/07/2005 3 - Cough Comments: dry hacking cough SPIRONOLACTONE 03/21/2014 14 - Other: See Comments Comments: headache beta blockers [Other] 10/07/2005 3 - Cough Comments: dry hacking cough hctz [Other] 10/07/2005 2 - Rash Date Reviewed: 10/31/2017 Reviewed by: Martha Huang MA - Fully Assessed Reason for Visit: Refill Request [94] Visit Diagnosis:Postablative hypothyroidism [E89.0] Order(s):levothyroxine (SYNTHROID) 88 mcg tabletTake 1 tablet by mouth once daily.Disp: 90 tabletRfl: 3 losartan (COZAAR) 100 mg tabletTake 1 tablet by mouth once daily.Disp: 90 tabletRfl: 3 labetalol (TRANDATE) 100 mg tabletTake 1 tablet by mouth twice daily.Disp: 180 tabletRfl: [address] (PROTONIX) 40 mg tabletTake 1 tablet by mouth once daily. Take on empty stomach, 1/2 hr before meal.Disp: 90 tabletRfl: 3 amLODIPine (NORVASC) 5 mg tabletTake 1 tablet by mouth once daily.Disp: 270 tabletRfl: 3 isosorbide mononitrate ER (IMDUR) 30 mg 24 hr tabletTake 0.5 tablets by mouth once daily.Disp: 30 tabletRfl: 6 Prescriptions as of 10/31/2017 Sig: LEVOTHYROXINE 88 MCG TABLET Take 1 tablet by mouth once d* LOSARTAN 100 MG TABLET Take 1 tablet by mouth once d* LABETALOL 100 MG TABLET Take 1 tablet by mouth twice * PANTOPRAZOLE 40 MG TABLET,DEL* Take 1 tablet by mouth once d* AMLODIPINE 5 MG TABLET Take 1 tablet by mouth once d* ISOSORBIDE MONONITRATE ER 30 * Take 0.5 tablets by mouth onc* TEMAZEPAM 30 MG CAPSULE Take 1 capsule by mouth at be* FUROSEMIDE 20 MG TABLET Take 1 tablet by mouth twice * POTASSIUM CHLORIDE ER 20 MEQ * Take 1 tablet by mouth four t* BIOTIN 2,500 MCG CAPSULE Take 1 capsule by mouth once * GABAPENTIN 300 MG CAPSULE Take 1 capsule by mouth daily* ASPIRIN 81 MG TABLET,DELAYED * Take 81 mg by mouth once ariane* LACTOBACIL RHAMNOSUS GG 10 BI* Take by mouth once daily. Problem List As Of Date 10/31/2017 Noted Resolved BENIGN HYPERTENSION [I10] More... More... PERS HX COLONIC POLYPS [Z86.010] More... 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] INVALID FOR* CERVICAL DISC DEGEN [M50.30] INVALID FOR* Degenerative arthritis of knee [M17.10] INVALID FOR* Trigeminal neuralgia [G50.0] INVALID FOR* Inadequate pelvic muscles [M62.9] INVALID FOR* Mixed stress and urge urinary incontinence [N39*INVALID FOR* Uterine prolapse [N81.4] INVALID FOR* Cystocele, midline [N81.11] INVALID FOR* Esophageal reflux [K21.9] INVALID FOR* Delayed gastric emptying [K30] INVALID FOR* Trochanteric bursitis of left hip [M70.62] INVALID FOR* Hypokalemia [E87.6] INVALID FOR* Thoracic radiculopathy due to degenerative join*INVALID FOR* Lumbar radiculopathy [M54.16] INVALID FOR* 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 LOSARTAN 100 MG TABLET 90 t* 3 10/31/2017 Route: ORAL Sig: Take 1 tablet by mouth once daily. LABETALOL 100 MG TABLET 180 * 3 10/31/2017 Route: ORAL Sig: Take 1 tablet by mouth twice daily. PANTOPRAZOLE 40 MG TABLET,DELAYED RE* 90 t* 3 10/31/2017 Route: ORAL Sig: Take 1 tablet by mouth once daily. Take on empty stomach, 1/2 hr before meal. AMLODIPINE 5 MG TABLET 270 * 3 10/31/2017 Route: ORAL Sig: Take 1 tablet by mouth once daily. ISOSORBIDE MONONITRATE ER 30 MG TABL* 30 t* 6 10/31/2017 Route: ORAL Sig: Take 0.5 tablets by mouth once daily. Medications Discontinued During This Encounter pantoprazole (PROTONIX) 40 mg tablet 60 t* 3 03/11/2014 10/31/2017 Route: ORAL Sig: Take 1 tablet by mouth twice daily before meals for 30 days. Disc: Reason for discontinue is not on file. levothyroxine (SYNTHROID) 88 mcg tab* 90 t* 3 09/01/2016 10/31/2017 Class: Print RX Route: ORAL Sig: Take 1 tablet by mouth once daily. Disc: Reason for discontinue is not on file. losartan (COZAAR) 100 mg tablet 90 t* 3 01/03/2017 10/31/2017 Route: ORAL Sig: Take 1 tablet by mouth once daily. Disc: Reason for discontinue is not on file. labetalol (TRANDATE) 100 mg tablet 180 * 3 09/01/2016 10/31/2017 Class: Print RX Route: ORAL Sig: Take 1 tablet by mouth twice daily. Disc: Reason for discontinue is not on file. pantoprazole DR (PROTONIX) 40 mg tab* 90 t* 3 09/01/2016 10/31/2017 Class: Print RX Route: ORAL Sig: Take 1 tablet by mouth once daily. Take on empty stomach, 1/2 hr before meal. Disc: Reason for discontinue is not on file. amLODIPine (NORVASC) 5 mg tablet 270 * 3 05/08/2017 10/31/2017 Class: Med Update Route: ORAL Sig: Take 1 tablet by mouth once daily. Disc: Reason for discontinue is not on file. isosorbide mononitrate ER (IMDUR) 30* 30 t* 6 01/05/2017 10/31/2017 Route: ORAL Sig: Take 0.5 tablets by mouth once daily. Disc: Reason for discontinue is not on file. Encounter Status:Closed by NANNETTE HUANG CNP on 10/31/17 ALLERGIES ALLERGIES DATE TYPE / CODE NAME / CODE REACTION SEVERITY SOURCE Drug Beta-Blockers Other Unknown [place] 8 Allergy/[id number] (Beta-Adrenergic Community (SNOMED CT) [place]/[id number](RX Hospital NORM) Repository Drug codeine/[id number] Other Unknown [place] 8 Allergy/740260511 (RXNORM) Community (SNOMED CT) Hospital Repository DRUG ATORVASTATIN OTHER: SEE [facility] 4 INGREDI/[id number] CALCIUM Clinic Main (SNOMED CT) [place] Repository DRUG SPIRONOLACTONE OTHER: SEE [facility] 4 INGREDI/155793817 Clinic Main (SNOMED CT) [place] Repository DRUG ISOSORBIDE OTHER: SEE [facility] 2 INGREDI/048727134 Clinic Main (SNOMED CT) [place] Repository DRUG CODEINE INTOLERANCE [facility] [place] 0 INGREDI/078444865 Clinic Main (SNOMED CT) [place] Repository DRUG PERINDOPRIL [place] 5 INGREDI/883323965 ERBUMINE Clinic Main (SNOMED CT) [place] Repository DRUG LISINOPRIL COUGH [place] 5 INGREDI/058555281 Clinic Main (SNOMED CT) [place] Repository Miscellaneous OTHER COUGH [place] 5 Allergy/932034521 Clinic Main (SNOMED CT) [place] Repository NG/823712275(SNOM CODEINE [facility]) [facility] Repository NG/997184802(SNOM PERINDOPRIL [facility] ED [facility]) ERBUMINE Health System Repository NG/841765133(SNOM ISOSORBIDE [facility] ED [facility]) Health System Repository NG/961684562(SNOM ATORVASTATIN [facility] ED CT) CALCIUM [facility] Repository NG/324191530(SNOM LISINOPRIL [facility] ED CT) Health System Repository NG/178881896(SNOM SPIRONOLACTONE [facility] ED CT) Health System Repository NG/619710258(SNOM OTHER [facility] ED CT) Health System Repository ENCOUNTERS ENCOUNTERS ADMIT/DISCHARGE ACCOUNT NUMBER ADMITTING ENCOUNTER LOCATION SOURCE CLASS 10/19/2018/10/22/20 [id number] Ambulatory [place] [address] Clinic Main [place] Repository 10/15/2018/10/16/20 [id number] Ambulatory [address] Main [place] Repository 10/07/2018/10/07/20 [id number] Emergency [address] ding:ED Repository 09/26/2018/09/28/20 [id number] Ambulatory [place] [address] Clinic Main [place] Repository 09/12/2018/09/13/20 [id number] Ambulatory [place] [address] Clinic Main [place] Repository 09/10/2018/09/12/20 [id number] Ambulatory [address] Main [place] Repository 09/10/2018 [id number] Ambulatory [facility] MEDICAL Repository CENTERBuildi ng:CAGWS 09/07/2018/09/10/20 [id number] Ambulatory [place] [address] Clinic Main [place] Repository 09/06/2018/09/06/20 [id number] Ambulatory [place] [facility] Clinic Main [place] Repository 09/05/2018 [id number] Ambulatory [facility] [place] Repository 08/28/2018/08/31/20 [id number] Ambulatory [place] [facility] [place] Repository 08/20/2018/08/21/20 [id number] Ambulatory [place] [facility] [place] Repository 07/12/2018/07/13/20 [id number] Ambulatory [place] [address] Clinic Main [place] Repository 07/06/2018/07/06/20 [id number] Emergency [address] ding:ED Repository 07/06/2018 [id number] Ambulatory [facility] Main [place] Repository 07/06/2018 [id number] Ambulatory [place] [facility] Main [place] Repository 06/05/2018 [id number] Ambulatory [facility] ding:MRI Repository 03/28/2018/03/28/20 [id number] Ambulatory [address] Repository 03/22/2018/03/22/20 [id number] Ambulatory [address] Repository 03/22/2018/03/23/20 [id number] Ambulatory [address] Repository 01/25/2018/01/26/20 [id number] Emergency [address] ding:ED Repository 01/08/2018/01/09/20 [id number] Ambulatory [address] Other [place] Repository 01/08/2018/01/09/20 [id number] Ambulatory [place] [address] MEDICAL Repository CENTERBuildi ng:CAGWS 10/31/2017/10/31/20 [id number] Ambulatory [address] Repository PAYERS PAYERS ENCOUNTER GUARANTOR PAYER SUBSCRIBER SOURCE 10/07/2018 OPAL J Primary OPAL J [place] [id number] Insurance:MEDICARE DRYSDALEDOB: [facility] PART A [id number] Number: Repository [id number]: [phone] [id number] [phone] () Date:2018-10-07 10/07/2018 Secondary OPAL J [place] Insurance:PHYSICIAN DRYSDALEDOB: [facility] [id number] Number: Repository [id number] Date:[id number] [address]NF: 10/07/2018 Tertiary NOT GIVENUNK [place] Insurance:SELF PAY [facility] Number: Effective Repository Date:2018-10-07 09/10/2018 OPAL J Primary OPAL J [facility] DRYSDALEDOB: Insurance:MEDICARE A DRYSDALEDOB: Health System [id number] AND [facility] Number: [id number] Rehab [id number] [place] Date: [address]Nzq: () 09/10/2018 Secondary OPAL J [facility] Insurance:PHYSICIANS DRYSDALEDOB: [facility] Number: [id number] Repository [id number] Date: 07/06/2018 [place] Primary [place] [id number] Insurance:MEDICARE [place]: [place] PART A [facility] [id number] Number: Repository [id number]: 330 [id number] [phone] () Date:2018-07-06 07/06/2018 Secondary [place] Insurance:PHYSICIAN [place]aleDOB: [facility] MUTUAL INS [facility] [id number] Hospital Number: Repository [id number] Date:[id number] [address] [address]FR: 07/06/2018 Tertiary NOT GIVENUNK [place] Insurance:SELF PAY [facility] Number: Effective Repository Date:2018-07-06 06/05/2018 [place] J Primary [place] J [place] [id number] Insurance:MEDICARE [place]OB: [facility] PART A [id number] [place] Number[facility] Repository [id number]: 330 [id number] [phone] () Date:2018-05-24 06/05/2018 Secondary [place] J [place] Insurance:PHYSICIAN [place]aleDOB: [facility] MUTUAL INS [facility] [id number] Hospital Number: Repository [id number] Date:[id number] [address] [address]QR: 06/05/2018 Tertiary NOT GIVENUNK [place] Insurance:SELF PAY [facility] Number: Effective Repository Date:2018-05-24 01/25/2018 [place] J Primary [place] [id number] Insurance:MEDICARE [facility] [id number] Number: Repository [id number]: 330 [id number] [phone] () Date:2018-01-25 01/25/2018 Secondary [place] Insurance:PHYSICIAN [place]OB: Community MUTUAL INS COPolicy [id number] Hospital Number: Repository [id number] Date:[id number] JULIO CÉSAR SPEAR [address]MV: 01/25/2018 Tertiary NOT GIVENUNK [place] Insurance:SELF PAY [facility] Number: Effective Repository Date:2018-01-25 01/08/2018 OPAL J Primary OPAL J [facility] DRYSDALEDOB: Insurance:MEDICARE A DRYSDALEDOB: Health System [id number] AND BPolicy Number: [id number] Repository ACRA [id number] MARIELLE CHOI Date: 06784Hzq: () 01/08/2018 Secondary OPAL J [facility] Insurance:PHYSICIANS DRYSDALEDOB: Health System MUTUALPolicy Number: [id number] Repository [id number] Date:
== END 2018-10-07 15:32 | disposition home or self-care (01) ==
PROVIDERS: Emergency Provider Emergency Medicine; Family Provider Family Medicine; PCP Family Medicine
DX: K57.32 Diverticulitis of large intestine without perforation or abscess without bleeding (principal); R10.32 Left lower quadrant pain
CPT/HCPCS: 74177; 80048; 81001; 85025; 96360; 96361; 99284; Q9967

== ENCOUNTER 2018-11-28 06:17 | Day surgery (SDC) | payer MEDICARE, OTHER, SELFPAY ==
[2018-11-01 08:59] VITALS: BMI 34.4
[2018-11-28] VITALS (7 sets, daily range): BP systolic 108–151; BP diastolic 56–69; PULSE 72–77; RESP 16–18; TEMP 36.6–36.7; O2SAT 93–98; BMI 34.0
--- NOTE | 2018-11-28 12:47 | OP.ENDO_ITS ---
Patient Name: Tashia Fernandez Procedure Date: 11/28/2018 7:26 AM Date of : 1950 Age: 68 Procedure: Colonoscopy Indications: Diverticulitis Providers: Behzad Kelley MD Referring MD: Behzad Kelley MD Medicines: See the Anesthesia note for documentation of the administered medications Patient Profile: This is a 68 year old female. Refer to note in patient chart for documentation of history and physical. Last Colonoscopy: 2013. Complications: No immediate complications. Procedure: Pre-Anesthesia Assessment: - Prior to the procedure, a History and Physical was performed, and patient medications and allergies were reviewed. The patient's tolerance of previous anesthesia was also reviewed. The risks and benefits of the procedure and the sedation options and risks were discussed with the patient. All questions were answered, and informed consent was obtained. Prior Anticoagulants: The patient has taken no previous anticoagulant or antiplatelet agents. ASA Grade Assessment: II - A patient with mild systemic disease. After reviewing the risks and benefits, the patient was deemed in satisfactory condition to undergo the procedure. After I obtained informed consent, the scope was passed under direct vision. Throughout the procedure, the patient's blood pressure, pulse, and oxygen saturations were monitored continuously. The adult colonoscope was introduced through the anus and advanced to the cecum, identified by appendiceal orifice and ileocecal valve. The colonoscopy was performed without difficulty. The patient tolerated the procedure well. The quality of the bowel preparation was good. Scope In: 7:34:22 AM Scope Withdrawal Time 0 hours 6 minutes 4 seconds Scope Out: 7:45:31 AM Total Procedure Duration Time 0 hours 11 minutes 9 seconds Findings: Multiple small and large-mouthed diverticula were found in the sigmoid colon. Non-bleeding internal hemorrhoids were found during retroflexion. The hemorrhoids were mild and small. The exam was otherwise without abnormality. Impression: - Diverticulosis in the sigmoid colon. - Non-bleeding internal hemorrhoids. - The examination was otherwise normal. - No specimens collected. Recommendation: - Written discharge instructions were provided to the patient. - The signs and symptoms of potential delayed complications were discussed with the patient. - Patient has a contact number available for emergencies. - Return to normal activities tomorrow. - Resume previous diet. - Continue present medications. - Repeat colonoscopy in 10 years for screening purposes. - Return to my office in 1 week. Procedure Code(s): --- Professional --- 36949, Colonoscopy, flexible; diagnostic, including collection of specimen(s) by brushing or washing, when performed (separate procedure) Diagnosis Code(s): --- Professional --- K64.8, Other hemorrhoids K57.32, Diverticulitis of large intestine without perforation or abscess without bleeding K57.30, Diverticulosis of large intestine without perforation or abscess without bleeding CPT copyright 2017 [employer]. All rights reserved. The codes documented in this report are preliminary and upon law firm administrator review may be revised to meet current compliance requirements. MD Behzad Wisdom MD 11/28/2018 7:51:23 AM This report has been signed electronically. Number of Addenda: 0 Note Initiated On: 11/28/2018 7:26 AM
--- OUTSIDE RECORDS SUMMARY | 2019-01-30 01:35 | XMS RPT_ITS ---
:1950 Author Organization OHIP Care Team Providers Name Role Phone Behzad Kelley Attending Unavailable Cebul III, Erma Referring Unavailable Behzad Kelley Attending Unavailable Behzad Kelley Referring Unavailable Cebul III, Erma Primary Care Unavailable Cebul III, Erma Primary Care Unavailable Jono Trevino Attending Unavailable JAMIE CHAPMAN Attending Unavailable JAMIE CHAPMAN Referring Unavailable Cebul III, Erma Primary Care Unavailable JAMIE CHAPMAN Consulting Unavailable Cebul III, Erma Primary Care Unavailable Cyndi Carlos Attending Unavailable Cebul III, Erma Primary Care Unavailable Jordy Matute Attending Unavailable CHON BANKS Attending Unavailable CHON BANKS Referring Unavailable CEBUL III, ERMA Vonnie Attending Unavailable CEBUL III, ERMA A Referring Unavailable CEBUL III, ERMA A Referring Unavailable VAISHNAVI FERREIRA (PATIENT SCHEDULING COORDINATOR) Referring Unavailable CEBUL III, ERMA A Attending Unavailable CEBUL III, ERMA A Referring Unavailable RAYMON GUIDRY (PT) Attending Unavailable CEBUL III, ERMA A Referring Unavailable CEBUL III, ERMA A Referring Unavailable CEBUL III, ERMA A Referring Unavailable CHON BANKS E Attending Unavailable CHON BANKS E Referring Unavailable RAYMON GUIDRY (PT) Attending Unavailable CEBUL III, ERMA A Referring Unavailable RAYMON GUIDRY (PT) Attending Unavailable CEBUL III, ERMA A Referring Unavailable CEBUL III, ERMA A Attending Unavailable CODY PONCE Attending Unavailable CHON BANKS Attending Unavailable CHON BANKS Referring Unavailable FLORIDALMAL, ERMA Primary Care Unavailable CHON BANKS Attending Unavailable CHON BANKS Referring Unavailable FLORIDALMAL, ERMA Primary Care Unavailable PROBLEMS PROBLEMS DATE TYPE CONDITION / CODE ATTENDING STATUS SOURCE 09/05/2018 Active Encounter for NA Active [facility] Main mammogram for [place] malignant neoplasm Repository of breast / Z12.31(ICD-10) 03/28/2018 Active Age-related NA Active [facility] Main without current [place] pathological Repository fracture / M81.0(ICD-10) 03/22/2018 Active 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 Active [facility] Main therapy / [place] Z79.899(ICD-10) Repository 03/22/2018 Active Cramp and spasm / NA Active [facility] R25.2(ICD-10) [facility] Main [place] Repository 01/08/2018 Active Chest pain, HCON BANKS Active [facility] unspecified / [facility] Other R07.9(ICD-10) [place] Repository 01/08/2018 Active Essential CHON BANKS Active [facility]primary[facility] Other hypertension / [place] I10(ICD-10) Repository 01/08/2018 Admitting Unknown / CHON BANKS Active [facility]Unknown[facility] Repository PROCEDURES PROCEDURES No Procedure Records FoundRESULTS RESULTS OPERATIVE REPORT - Observed: 11/28/2018 Status: F Source: [facility] [place] [facility] 12:47 PM [facility] REPOSITORY [facility] Medical Records Department [address] [place] [address] Operative Report - Endoscopy MR#: [id number] Acct: [id number] Name: ALBERTO STRICKLAND Rep #: [id number] : 1950 68 From: Behzad Kelley MD PCP: Erma Parker III, MD Status: [facility] Patient Name: Alberto Strickland Procedure Date: 11/28/2018 7:26 AM Date of : 1950 Age: 68 Procedure: Colonoscopy Indications: Diverticulitis Providers: Behzad Kelley MD Referring MD: Behzad Kelley MD Medicines: See the Anesthesia note for documentation of the administered medications Patient Profile: This is a 68 year old female. Refer to note in patient chart for documentation of history and physical. Last Colonoscopy: 2013. Complications: No immediate complications. Procedure: Pre-Anesthesia Assessment: - Prior to the procedure, a History and Physical was performed, and patient medications and allergies were reviewed. The patient's tolerance of previous anesthesia was also reviewed. The risks and benefits of the procedure and the sedation options and risks were discussed with the patient. All questions were answered, and informed consent was obtained. Prior Anticoagulants: The patient has taken no previous anticoagulant or antiplatelet agents. ASA Grade Assessment: II - A patient with mild systemic disease. After reviewing the risks and benefits, the patient was deemed in satisfactory condition to undergo the procedure. After I obtained informed consent, the scope was passed under direct vision. Throughout the procedure, the patient's blood pressure, pulse, and oxygen saturations were monitored continuously. The adult colonoscope was introduced through the anus and advanced to the cecum, identified by appendiceal orifice and ileocecal valve. The colonoscopy was performed without difficulty. The patient tolerated the procedure well. The quality of the bowel preparation was good. Scope In: 7:34:22 AM Scope Withdrawal Time 0 hours 6 minutes 4 seconds Scope Out: 7:45:31 AM Total Procedure Duration Time 0 hours 11 minutes 9 seconds Findings: Multiple small and large-mouthed diverticula were found in the sigmoid colon. Non-bleeding internal hemorrhoids were found during retroflexion. The hemorrhoids were mild and small. The exam was otherwise without abnormality. Impression: - Diverticulosis in the sigmoid colon. - Non-bleeding internal hemorrhoids. - The examination was otherwise normal. - No specimens collected. Recommendation: - Written discharge instructions were provided to the patient. - The signs and symptoms of potential delayed complications were discussed with the patient. - Patient has a contact number available for emergencies. - Return to normal activities tomorrow. - Resume previous diet. - Continue present medications. - Repeat colonoscopy in 10 years for screening purposes. - Return to my office in 1 week. Procedure Code(s): --- Professional --- 77990, Colonoscopy, flexible; diagnostic, including collection of specimen(s) by brushing or washing, when performed (separate procedure) Diagnosis Code(s): --- Professional --- K64.8, Other hemorrhoids K57.32, Diverticulitis of large intestine without perforation or abscess without bleeding K57.30, Diverticulosis of large intestine without perforation or abscess without bleeding CPT copyright 2017 [employer]. All rights reserved. The codes documented in this report are preliminary and upon power digger operator review may be revised to meet current compliance requirements. MD Behzad Wisdom MD 11/28/2018 7:51:23 AM This report has been signed electronically. Number of Addenda: 0 Note Initiated On: 11/28/2018 7:26 AM 11/28/18 1246 Date Behzad Kelley MD Cosigner Signature: Date (if indicated) CC: Behzad Kelley MD; Erma Parker III, MD Date Dictated: 11/28/18 0726 Date Transcribed: Outpatient Physical Therapist: YASH Signed SURGERY VISIT REPORT Observed: 11/05/2018 Status: F Source: [place] 12:57 PM [facility] REPOSITORY [facility] [address] [place] [address] [address] [place] [address] OFFICE VISIT Date of Service: 11/01/18 MR#: [id number] Acct: [id number] Name: ALBERTO STRICKLAND Trang Rep #: [id number] : 1950 Provider: Behzad Kelley MD Age/Sex: 68/F Location: [facility] Status: Signed Intake Vital Signs11/01/18 Body Mass Index (BMI) 34.4 11/01/18 Height 5 ft 1 in 11/01/18 Weight: 183 lb 3 oz 11/01/18 Body Mass Index (BMI) 34.6 11/01/18 Blood Pressure 149/82 H Intake Visit Reasons: Diverticulitis Chief Complaint: abd pain/ diverticulitis Special Events Coordinator Required: No Is patient in pain?: No Allergies Beta-Blockers (Beta-Adrenergic Bloc Adverse Reaction (Verified 11/01/18 08:52) Other codeine Adverse Reaction (Verified 11/01/18 08:52) Other Medications Aspirin [Aspirin, Baby] 81 mg PO DAILY@0800 01/01/14 [History Confirmed 11/01/18] Levothyroxine [Synthroid] 88 mcg PO DAILY 01/01/14 [History Confirmed 11/01/18] Losartan Potassium [Cozaar] 100 mg PO DAILY 01/01/14 [History Confirmed 11/01/18] Potassium Chloride [K-Dur] 20 meq PO 4X/DAY 01/01/14 [History Confirmed 11/01/18] Gabapentin [Neurontin] 300 mg PO QHS 11/15/16 [History Confirmed 11/01/18] Amlodipine [Norvasc] 5 mg PO DAILY 01/25/18 [History Confirmed 11/01/18] Furosemide [Lasix] 20 mg PO BID 01/25/18 [History Confirmed 11/01/18] Isosorbide Mononitrate [Isosorbide Mononitrate ER] 15 mg PO DAILY 01/25/18 [History Confirmed 11/01/18] Labetalol [Trandate (Beta Gustavo)] 100 mg PO BID 01/25/18 [History Confirmed 11/01/18] Pantoprazole Sodium [Protonix] 40 mg PO DAILY 01/25/18 [History Confirmed 11/01/18] Temazepam 30 mg PO DAILY 01/25/18 [History Confirmed 11/01/18] Biotin 1 mg PO DAILY 07/06/18 [History Confirmed 11/01/18] Naproxen [Naprosyn] 500 mg PO BID PRN PRN #20 tab 07/06/18 [Rx Confirmed 11/01/18] Lactobacil rhamnosus GG 10 billion cell-inulin 200 mg chewable tablet tab PO tab 11/01/18 [History Confirmed 11/01/18] Is last menstrual period known: No Post menopausal: Yes Patient : No PFSH Medical History Acid reflux (Acute) Constipation (Acute) Abdominal pain (Acute) Thyroid disease (Acute) Heart murmur (Acute) Hx of breast cancer (Acute) Fatigue (Acute) Hemorrhoids (Acute) Colon polyp (Acute) Hypokalemia (Acute) Hypertension (Chronic) Diverticulosis (Acute) Diarrhea (Acute) Delayed gastric emptying (Acute) Contact dermatitis and eczema (Acute) Surgical History Hx of repair of right rotator cuff (Acute) Hx of eye surgery (Acute) Hx of tubal ligation (Acute) History of carpal tunnel release of both wrists (Acute) Hx of cholecystectomy (Acute) Family History Mother Diabetes Heart disease Hypertension CVA (cerebral vascular accident) Sister Hypertension Heart disease Brother Heart disease Hypertension Social History Smoking Status: Never smoker HPI HPI HPI: ALBERTO STRICKLAND, is a 68 F who presents to the office today for evaluation for colonoscopy. Patiently has recently been diagnosed with acute diverticulitis of the descending colon. There was no mass or perforation noted. She has been treated with oral antibiotics. She still has some occasional tenderness in the left lower quadrant. She is still noticing a change in her bowel habits to the fact with a appear to be smaller in caliber. In addition she is also having increasing flatus. She is not complaining of any fevers or chills. She is not having any diarrhea at the present time. Patient last had a colonoscopy in 2014 which was reportedly negative. CAT scan of the abdomen and pelvis also showed a 4.5 mm nodule in the right middle lobe of her lung for which she is going to actively being worked up for this. ROS General General: Yes fatigue and breast cancer; no weight change, appetite, colon cancer or weakness HEENT HEENT: Yes eye surgery; no difficulty swallowing, eye injury, swollen glands or hoarseness Endo Endocrine: Yes thyroid disease; no diabetes mellitus, thyroid cancer, Hair loss, heat intolerance or cold intolerance Musc Musculoskeletal: Yes back problems and arthritis; no rheumatoid arthritis, gout or joint pain Cardio Cardiovascular: Yes murmur, heart disease and high blood pressure; no pacemaker, atrial fibrillation, heart attack, heart stent, palpitations, shortness of breat with exertion or chest pain Resp Respiratory: Yes shortness of breath, No sleep apnea, No cough, No COPD, No asthma, No emphysema, No wheezing Gastro Gastrointestinal: Yes abdominal pain, No nausea or vomiting, Yes diarrhea, Yes constipation, No blood in stool, Yes acid reflux, Yes hemorrhoids, No ulcers, Yes gallbladder problem, No black,tarry stools Neuro Neurologic: No weakness Exam Const General: well developed, no acute distress, well hydrated Orientation: oriented to person, oriented to place, oriented to time [facility] Head: normocephalic, atraumatic Ears: external ears normal Mouth: moist mucous membranes Eyes Sclera: sclerae normal Pupils: normal by confrontation Neck Neck: no lymphadenopathy noted Neck mass: No Thyroid: symmetrical, thyroid normal Chest Chest palpation AND inspection: normal inspection of the chest Resp Effort AND Inspection: normal respiratory effort Auscultation: clear to auscultation bilaterally Percussion: percussion normal Cardio Rate: regular rate Rhythm: regular rhythm Heart Sounds: murmur GI Palpation: soft, no masses, no hepatosplenomegaly, tender in the LLQ Rectal Exam: other Other: Rectal exam deferred. Extrem General: no clubbing, cyanosis or edema, normal to inspection Assessment AND Plan Problems 1. Diverticulitis large intestine w/o perforation or abscess w/bleeding K57.33 Plan I have discussed the above with the patient. I have offered the patient colonoscopy for evaluation. I have explained the risks/benefits of the procedure and described the procedure. I have discussed the risks with the patient, including but not limited to: infection, bleeding, perforation of the GI tract requiring emergency surgery, inability to complete the procedure, injury to any internal organs, complications of anesthesia, etc. - the patient understands and agrees to proceed. I have answered all the patient's questions to the patient's satisfaction and the patient has no further questions. The patient has been given instructions for the colon cleansing preparation. Orders Orders: Coding Level of Care Code Off vis,new,level 3 Diagnoses Diverticulitis large intestine w/o perforation or abscess w/bleeding K57.33 11/05/18 1257 <Electronically signed by Behzad Kelley MD> Date Behzad Kelley MD Cosigner Signature: Date (if applicable) CC: Erma Parker III, MD PROGRESS Observed: 10/19/2018 Status: COMPLETED Source: [place] 1:00 PM [facility] REPOSITORY HNO ID: [id number] Author: Cody Ponce Service: (none) Author Type: Physician Type: Progress Notes Filed: 10/19/2018 1:11 PM Note Text: Patient presents with: Derm Problem HPI: Patient presents today for office visit for follow up. Nursing Notes: Rachel Juan Ma 10/19/2018 12:54 PM Unsigned DERM: Pt c/o of raw bottom after treatment for diverticulitis. For the last 3 days she has pain in buttock by the rectum. She has used preparation H, wet wipes(she makes sure she is dry afterwards), and A and D ointment. Also pt c/o itchy rectum at night only. Was being treated for diverticulitis. Had been to [facility] ER and placed on augmentin. 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 Retired [employer] [...] Good capillary refill. Rectal: perineum examined with rf microwave engineer. Has marked erythema throughout. Some slightly open [...] MD CNOV Observed: 10/19/2018 Status: COMPLETED Source: [place] 12:40 PM [facility] REPOSITORY Office Visit (FAMPWS) ALBERTO STRICKLAND ([id number]) 1950 F Date Time Provider Department 10/19/18 12:40 PM CODY PONCE FAMWS During your visit today, we recorded the following information about you: Pulse Respiration Blood pressure Weight 64/minute 16/minute 120/64 82.6 kg Rachel Juan Dee 10/19/2018 1:02 PM Signed DERM: Pt [...] visit for follow up. Nursing Notes: Rachel Juan Dee 10/19/2018 12:54 PM Unsigned DERM: Pt c/o of raw bottom after treatment for diverticulitis. For the last 3 days she has pain in buttock by the rectum. She has used preparation H, wet wipes(she makes sure she is dry afterwards), and A and D ointment. Also pt c/o itchy rectum at night only. Was being treated for diverticulitis. Had been to [facility] ER and placed on augmentin. 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 Retired [employer] [...] Good capillary refill. Rectal: perineum examined with rf microwave engineer. Has marked erythema throughout. Some slightly open [...] headache Date Reviewed: 10/19/2018 Reviewed by: Rachel Juan Ma - Fully Assessed Reason for Visit: [...] ALENDRONATE 70 MG EFFERVESCENT TABLET >> Rachel Juan Ma 10/19/2018 12:50 PM >> LUCIEN PRICERACHEL MonOct 19, 2018 12:50 PM Not taking Problem [...] INVALID FOR* More... Visit Notes: >> Rachel Juan Ma MonOct 19, 2018 12:47 PM Status: Signed [...] 10/19/18 PROGRESS Observed: 10/15/2018 Status: COMPLETED Source: [place] 4:41 PM [facility] REPOSITORY [facility] ID: [id number] Author: Erma Parker III Service: (none) Author [...] MD CNOV Observed: 10/15/2018 Status: COMPLETED Source: [place] 4:40 PM [facility] REPOSITORY Office Visit (FAMPWS) ALBERTO STRICKLAND ([id number]) 1950 F Date Time Provider Department 10/15/18 [...] headache Date Reviewed: 10/15/2018 Reviewed by: Sandra ([facility]) DEE Lara - Fully Assessed Reason for Visit: [facility] ER follow up [Other] Primary Visit [...] tabletRfl: 3 CREATININE BLD [SQCRET] Order #: [id number] FUTURE CT CHEST W IVCON [[id number]] Order #: [id number] FUTURE iv contrast (will be provided with [...] DISCHARGE INSTRUCTION Observed: 10/07/2018 Status: F Source: [place] 4:37 PM [facility] REPOSITORY [facility] Medical Records Department [address] [place] [address] Discharge Instruction 10/07/18 1521 MR#: [id number] Acct: [id number] Name: ALBERTO STRICKLAND Rep #: [id number] : 1950 68 From: Jordy Matute MD [...] problems, contact your Primary Care Provider. Call [facility] ([phone]) or report to the closest Emergency Room. Call 911 if necessary. 10/07/18 5751 <Electronically signed by Jordy Matute MD> Date Jordy Matute MD Cosigner Signature (If Indicated): Date CC: Erma Parker III, MD EMERGENCY DEPARTMENT Observed: 10/07/2018 Status: F Source: [place] SUMMARY 4:37 PM [facility] REPOSITORY [facility] Medical Records Department [address] [place] [address] Emergency Department Summary 10/07/18 1222 MR#: [id number] Acct: [id number] Name: ALBERTO STRICKLAND Rep #: [id number] : 1950 68 From: Jordy Matute MD [...] colon diverticulitis This note was generated with PaymentWorksation software. It may contain incorrect words, spelling, [...] your Primary Care Provider. Call [facility] ([phone]) or report to the closest Emergency Room. Call 911 if necessary. 10/07/18 4307 <Electronically signed by Jordy Matute MD> Date Jordy Matute MD Cosigner Signature (If Indicated): Date CC: Erma Parker III, MD CBC W/DIFF, AUTOMATED Collected: 10/07/2018 Status: F Source: [place] 12:40 PM [facility] REPOSITORY TYPE CODE TESTS RESULT OUT OF [...] Lymph 2.23 Performed By: #### L100.0100 #### [facility] [address] [place], [place], [address] URINALYSIS, COMPLETE Collected: 10/07/2018 Status: F Source: [place] 12:40 PM [facility] REPOSITORY Order Comment: How was Urine Obtained? PUTTY AND CAULKING SUPERVISOR TO SPECIFY TYPE CODE TESTS RESULT OUT [...] URINE SEEN Performed By: #### L400.0001 #### [facility] [address] [place], [address] BASIC METABOLIC Collected: 10/07/2018 Status: F Source: [place] PROFILE ([facility]) 12:40 PM [facility] REPOSITORY TYPE CODE TESTS RESULT OUT OF [...] GAP 8 Performed By: #### L500.2500 #### [facility] [address] [place], [address] ABDOMEN/PELVIS W IV CONT Observed: 10/07/2018 Status: F Source: [place] ONLY 12:22 PM [facility] REPOSITORY [facility] Imaging Services [address] [place] [address] Abdomen/Pelvis W IV Cont ONLY MR#: [id number] Acct: [id number] Name: ALBERTO STRICKLAND Rep #: [id number] : 1950 F 68 From: Richelle Romero MD PCP: Erma Parker III, MD Status: REG ER Study: Abdomen/Pelvis W IV Cont ONLY Date of Exam: 10/07/18 Exam# [id number] Ordering Dr: Jordy Matute MD STUDY: CT [...] study. Normal small intestine. There is a jjmn-sd-huhujllc amount of stool in the colon. There [...] Erma Parker III, MD; Jordy Matute MD Outpatient Physical Therapist: Signed PROGRESS Observed: 09/26/2018 Status: COMPLETED Source: [place] 1:16 PM [facility] REPOSITORY O ID: [id number] Author: Raymon Guidry Service: (none) Author Type: Physical Therapist Type: [...] and treatment included: Therapeutic exercise, Manual therapy, Self-nursing home management and Patient/Family/Caregiver Education. Patient has seen no change in her pain or function since beginning therapy and will be referred back to her pcp. She is unlikely to benefit from further skilled care having seen no progress in 1 month of therapy and consistently performing HEP. Goals for Episode of Care: created on 08/28/18 through 10/31/18 [place] in home exercise program. Met Patient will [...] Patient educated to continue above exercises Billing: [facility]: Therapeutic Exercise (88858): 1:1 time: 12 minutes (1 unit: 8-22 mins) Total time: 12 minutes Raymon Guidry PT CNTHERAPY Observed: 09/26/2018 Status: COMPLETED Source: [place] 1:00 PM [facility] REPOSITORY OT/PT/Speech Visit (PTWS) ALBERTO STRICKLAND ([id number]) 1950 F Date Time Provider Department 09/26/18 1:00 PM RAYMON GUIDRY (PT) PTWS Date Time Provider Department Center 09/26/2018 1:00 PM [id number], SEAN (PT)PTWS [facility] Reason for Visit: PT Discharge [752] Physical [...] and treatment included: Therapeutic exercise, Manual therapy, Self-nursing home management and Patient/Family/Caregiver Education. Patient has seen no change in her pain or function since beginning therapy and will be referred back to her pcp. She is unlikely to benefit from further skilled care having seen no progress in 1 month of therapy and consistently performing HEP. Goals for Episode of Care: created on 08/28/18 through 10/31/18 Clyo in home exercise program. Met Patient will [...] Patient educated to continue above exercises Billing: [facility]: Therapeutic Exercise (91302): 1:1 time: 12 minutes (1 unit: 8-22 mins) Total time: 12 minutes Raymon Guidry PT PROGRESS Observed: 09/12/2018 Status: COMPLETED Source: [place] 4:15 PM [facility] REPOSITORY HNO ID: [id number] Author: Raymon Guidry Service: (none) Author Type: Physical Therapist Type: [...] assessment of patient's response to intervention. Billing: [facility]: Manual Therapy (26891): 1:1 time: 40 minutes (3 units: 38-52 mins) Total time: 40 minutes Raymon Guidry PT CNTHERAPY Observed: 09/12/2018 Status: COMPLETED Source: [place] 1:00 PM [facility] REPOSITORY OT/PT/Speech Visit (PTWS) MARCO ACHARLES POONKecia Costello ([id number]) 1950 F Date Time Provider Department 09/12/18 1:00 PM RAYMON GUIDRY (PT) PTWS Date Time Provider Department [place] 09/12/2018 1:00 PM [id number], SEAN (PT)PTWS [facility] Reason for Visit: Physical Therapy [503] [...] by mouth once daily. Progress Notes: Raymon Chao, PT 09/12/2018 4:19 PM Signed Episode Visit Count: 3 Therapist That Will Oversee The Plan Of Care: Raymon Chao Start of Care Date: 08/28/18 Onset Date: [...] assessment of patient's response to intervention. Billing: [facility]: Manual Therapy (65622): 1:1 time: 40 minutes (3 units: 38-52 mins) Total time: 40 minutes Raymon Guidry PT PROGRESS Observed: 09/10/2018 Status: COMPLETED Source: [place] 10:34 AM [facility] REPOSITORY HNO ID: [id number] Author: Chon Banks Service: (none) Author Type: Physician Type: Progress Notes Filed: 09/10/2018 5:47 PM Note Text: PERTINENT CARDIAC HISTORY HTN Chest pain - normal cath 2016 HL - statin intolerant ADHERENCE TO GUIDELINES AN-I or ARB for HF with prior LVEF<40 (NQF 0081) - N/A ASA or Plavix for ASHD (NQF 0067) - met Beta gustavo for ASHD with prior NE or prior LVEF<40 (NQF 0070) - N/A [...] 10, 2018 10:34 AM CC: SYDNI Otoole MD Observed: 09/10/2018 Status: COMPLETED Source: [place] 10:30 AM [facility] REPOSITORY Office Visit (CAWSTR) ALBERTO STRICKLAND ([id number]) 1950 F Date Time Provider Department 09/10/18 10:30 AM CHON BANKS CAWSTR During your visit today, we recorded the [...] met Beta gustavo for ASHD with prior NE or prior LVEF<40 (NQF 0070) - N/A [...] the following areas and commit to making lobsterman changes. EAT A WHOLE FOOD, PLANT BASED [...] in your area. Referring Provider: CHON BANKS [[id number]] Allergies As of Date: 09/10/2018 Noted Allergy [...] the following areas and commit to making half-way changes. EAT A WHOLE FOOD, PLANT BASED [...] 09/10/18 PROGRESS Observed: 09/07/2018 Status: COMPLETED Source: [place] 10:14 AM [facility] REPOSITORY [facility] ID: [id number] Author: Raymon Guidry Service: (none) Author Type: Physical Therapist Type: [...] assessment of patient's response to intervention. Billing: [facility]: Therapeutic Exercise (94972): 1:1 time: 23 minutes (2 units: 23-37 mins) Manual Therapy (48226): 1:1 time: 18 minutes (1 unit: 8-22 mins) Total time: 41 minutes Tiffanie Boykin PTLaine Guidry PT CNTHERAPY Observed: 09/07/2018 Status: COMPLETED Source: [place] 9:15 AM [facility] REPOSITORY OT/PT/Speech Visit (PTWS) ALBERTO STRICKLAND ([id number]) 1950 F Date Time Provider Department 09/07/18 9:15 AM TIFFANIE BOYKIN (DEPOSIT REFUND CLERK) PTWS Date Time Provider Department Center 09/07/2018 9:15 AM [id number], NANCY (DEPOSIT REFUND CLERK) PTWS [facility] Reason for Visit: Physical Therapy [503] [...] headache Date Reviewed: 07/12/2018 Reviewed by: Sandra ([facility]) DEE Lara - Fully Assessed Prescriptions as of 09/07/2018 [...] assessment of patient's response to intervention. Billing: [facility]: Therapeutic Exercise (21116): 1:1 time: 23 minutes (2 units: 23-37 mins) Manual Therapy (21038): 1:1 time: 18 minutes (1 unit: 8-22 mins) Total time: 41 minutes Tiffanie Boykin, PT-Vonnie Guidry PT Previous Version Follow-up and Disposition History Recorded CNCO Observed: 09/06/2018 Status: COMPLETED Source: [place] 9:08 AM [facility] REPOSITORY HNO ID: [id number] Author: Mammography Coordinator Service: (none) Author Type: Physician Type: Letter Filed: 09/10/2018 11:31 PM Note Text: September 06, 2018 PID: [id number] Alberto Strickland [address] [place] [address] Dear Ms. Strickland, We are pleased to [...] report will be kept on file at [facility] as part of your permanent medical record and are available for your continuing care. Thank you for allowing us to help in meeting your health care needs. Sincerely, Dr. Singleton Interpreting Radiologist [facility] (Normal over 40) [facility] SCREENING Observed: 09/06/2018 Status: F Source: [place] 8:39 AM [facility] REPOSITORY * * *Final Report* * * DATE OF EXAM: Sep 06 2018 8:39AM TOMÁS 0581 - CHELSEA SCREENING / PROCEDURE REASON: Screening breast examination * * * * Physician Interpretation * * * * RESULT: #[id number] - [place] SCREENING BILATERAL DIGITAL SCREENING MAMMOGRAM WITH CAD: 09/06/2018 HISTORY: Screening Breast Examination /priors available for comparison. RESULT: TECHNIQUE: The study was acquired using full field digital technology and interpreted from soft copy. Current study was also evaluated with a Computer Aided Detection (CAD). Comparison is made to exams dated: 09/06/2017 mammogram - [facility], 08/10/2016 mammogram, 06/08/2015 mammogram, and 04/14/2014 mammogram - [facility]. The tissue of both breasts is extremely dense, which lowers the sensitivity of mammography. No significant masses, calcifications, or other findings are seen in either breast. There has been no significant interval change. IMPRESSION: NEGATIVE There is no mammographic evidence of malignancy. A 1 year screening mammogram is recommended. Page penny/bob:09/06/2018 09:08:22 Director Consumer: Anabel CORNELIUS (R)(Flo), [facility] letter sent: Normal over 40 Mammogram BI-RADS: [...] Health, Family Medicine, and Medical/Surgical Oncology, the [facility] has carefully reviewed the data and [...] their providers when to stop screening mammograms. Outpatient Physical Therapist: Bob Transcribe Date/Time: Sep 06 2018 8:18A Dictated by: PAGE SINGLETON MD This examination was interpreted and the report reviewed and electronically signed by: PAGE SINGLETON MD on Sep 06 2018 9:08AM EST [id number] PROCEDURE Observed: 09/06/2018 Status: COMPLETED Source: [place] 8:18 AM [facility] REPOSITORY HNO ID: [id number] Author: Kary Nunes (Rt) Service: (none) Author Type: Wastewater Analyst Lab Analyst Type: Procedures Filed: 09/06/2018 8:39 AM Note Text: Radiology Service Progress Note PATIENT NAME: Alberto Strickland DATE OF SERVICE: September 06, 2018 TIME: 8:18 AM PATIENT IDENTITY VERIFICATION COMPLETED USING TWO (2) METHODS: Patient confirmed name verbally and Date of . PATIENT GENDER DATA: Female. status: : No status: NO. PATIENT RELEVANT IMPLANT DATA REVIEWED: Not Applicable RADIOLOGY DEPARTMENT: [facility] DATA: Not applicable SIGNED BY: RT Manju September 06, 2018 8:18 AM PROGRESS Observed: 08/28/2018 Status: COMPLETED Source: [place] 11:26 AM [facility] REPOSITORY HNO ID: [id number] Author: Raymon Guidry Service: (none) Author Type: Physical Therapist Type: [...] of Care: created on 08/28/18 through 10/31/18 Clyo in home exercise program. Patient will decrease [...] Planned: 4 Planned Treatment Interventions: Therapeutic exercise;Manual therapy;Self-nursing home management;Patient/Family/Caregiver Education PLAN FOR NEXT VISIT: assess [...] assessment of patient's response to intervention. Billing: [facility]: Evaluation - Low Complexity (81958) Therapeutic Exercise (44302): 1:1 time: 10 minutes (1 unit: 8-22 mins) Manual Therapy (50348): 1:1 time: 15 minutes (1 unit: 8-22 mins) Total time: 45 minutes Raymon Guidry PT CNTHERAPY Observed: 08/28/2018 Status: COMPLETED Source: [place] 10:15 AM [facility] REPOSITORY OT/PT/Speech Visit (PTWS) ALBERTO STRICKLAND ([id number]) 1950 F Date Time Provider Department 08/28/18 10:15 AM RAYMON GUIDRYPT) PTWS Date Time Provider Department Center 08/28/2018 10:15 AM [id number], SEAN (PT)PTWS [facility] Reason for Visit: PT Eval [747] Physical [...] headache Date Reviewed: 07/12/2018 Reviewed by: Sandra ([facility]) DEE Lara - Fully Assessed Prescriptions as [...] by mouth once daily. Progress Notes: Raymon Guidry PT 08/31/2018 9:34 AM Signed Episode Visit [...] of Care: created on 08/28/18 through 10/31/18 Clyo in home exercise program. Patient will decrease [...] Planned: 4 Planned Treatment Interventions: Therapeutic exercise;Manual therapy;Self-nursing home management;Patient/Family/Caregiver Education PLAN FOR NEXT VISIT: assess [...] assessment of patient's response to intervention. Billing: [facility]: Evaluation - Low Complexity (38120) Therapeutic Exercise (36032): 1:1 time: 10 minutes (1 unit: 8-22 mins) Manual Therapy (43165): 1:1 time: 15 minutes (1 unit: 8-22 mins) Total time: 45 minutes Raymon Guidry PT CNNURSE Observed: 08/20/2018 Status: COMPLETED Source: [place] 10:15 AM [facility] REPOSITORY Nurse Visit (FAMPWS) ALBERTO STRICKLAND ([id number]) 1950 F Date Time Provider Department 08/20/18 10:15 AM [facility] your visit today, we recorded the following information about you: Temperature 97.6 degrees Juli Ralph EYAL 08/20/2018 10:00 AM Signed 68 year old female here for INACTIVATED INFLUENZA VACCINE. 3053-3373 Season Patient is identified by name and date of : Yes [] CONTRAINDICATIONS color enhanced section Age less than 6 months? No Allergy to eggs, chicken, chicken feathers, or chicken dander? No Allergy to thimerosal (a preservative) or formaldehyde, gelatin? No History of severe reaction to any vaccine component or a previous dose of influenza vaccination? No History of Guillain-[place] Syndrome within 6 weeks after a previous [...] sheet given? Yes See immunization activity in [facility] for details of immunizations adminstered today. Patient age: [age] year old For The 1707-9426 Flu Season 6-35 months old: Fluzone 0.25 [...] months time. Referring Provider: ERMA PARKER III [[id number]] Allergies As of Date: 08/20/2018 Noted Allergy [...] headache Date Reviewed: 07/12/2018 Reviewed by: Sandra ([facility]) DEE Lara - Fully Assessed Reason for Visit: Imm/Inj [58] Cmt: Flu Vaccine Primary Visit Diagnosis:Need for vaccination [Z23] Order(s):INFLUENZA SEASONAL HIGH DOSE AGE 65+ [48124BOC] Order #: [id number] Prescriptions as of 08/20/2018 Sig: FUROSEMIDE 40 [...] 08/20/18 PROGRESS Observed: 08/20/2018 Status: COMPLETED Source: [place] 10:00 AM [facility] REPOSITORY O ID: [id number] Author: Juli Ralph LPN Service: (none) Author Type: (none) Type: Progress Notes Filed: 08/20/2018 10:00 AM Note Text: 68 year old female here for INACTIVATED INFLUENZA VACCINE. 4831-2842 Season Patient is identified by name and date of : Yes [] CONTRAINDICATIONS color enhanced section Age less than 6 months? No Allergy to eggs, chicken, chicken feathers, or chicken dander? No Allergy to thimerosal (a preservative) or formaldehyde, gelatin? No History of severe reaction to any vaccine component or a previous dose of influenza vaccination? No History of Guillain-[place] Syndrome within 6 weeks after a previous [...] sheet given? Yes See immunization activity in [facility] for details of immunizations adminstered today. Patient age: [age] year old For The 0175-3152 Flu Season 6-35 months old: Fluzone 0.25 [...] time. PROGRESS Observed: 07/12/2018 Status: COMPLETED Source: [place] 3:23 PM [facility] REPOSITORY O ID: [id number] Author: Erma Parker III Service: (none) Author [...] MD CNOV Observed: 07/12/2018 Status: COMPLETED Source: [place] 3:00 PM [facility] REPOSITORY [facility] STRICKLAND ([id number]) 1950 F Date Time Provider Department 07/12/18 [...] for pain SYDNI Otoole MD, III MD Frank A Cebul, III MD 07/12/2018 3:49 PM Signed PLAN: [...] headache Date Reviewed: 07/12/2018 Reviewed by: Sandra ([facility]) DEE Lara - Fully Assessed Reason for [...] tabletRfl: 11 ALKALINE PHOSPHATASE [SQALKP] Order #: [id number] FUTURE Prescriptions as of 07/12/2018 Sig: POTASSIUM [...] 500mg twice/day as needed for pain Erma A SYDNI Parker MD Prescriptions ordered this encounter Disp Refills [...] EMERGENCY DEPARTMENT Observed: 07/06/2018 Status: F Source: [place] SUMMARY 4:08 PM [facility] REPOSITORY [facility] Medical Records Department [address] [place] [address] Emergency Department Summary 07/06/18 0929 MR#: [id number] Acct: [id number] Name: ALBERTO STRICKLAND Rep #: [id number] : 1950 68 From: Cyndi Carlos MD [...] uncertain etiology This note was generated with SoWe[employer] dictation software. It may contain incorrect words, [...] problems, contact your Primary Care Provider. Call [facility] ([phone]) or report to the closest Emergency Room. Call 911 if necessary. 07/06/18 1608 <Electronically signed by Cyndi Carlos MD> Date Cyndi Carlos MD Cosigner Signature (If Indicated): Date CC: Erma Parker III, MD DISCHARGE INSTRUCTION Observed: 07/06/2018 Status: F Source: [place] 12:24 PM [facility] REPOSITORY [facility] Medical Records Department [address] [place] [address] Discharge Instruction 07/06/18 1223 MR#: [id number] Acct: [id number] Name: ALBERTO STRICKLAND Rep #: [id number] : 1950 68 From: Cyndi Carlos MD [...] your Primary Care Provider. Call [facility] ([phone]) or report to the closest Emergency Room. Call 911 if necessary. 07/06/18 1224 <Electronically signed by Cyndi Carlos MD> Date Cyndi Carlos MD Cosigner Signature (If Indicated): Date CC: Erma Parker III, MD URINALYSIS, COMPLETE Collected: 07/06/2018 Status: F Source: [place] 10:46 AM [facility] REPOSITORY Order Comment: Has pt arrived? Y [...] URINE SEEN Performed By: #### L400.0001 #### [facility] [address] [place], [address] ABDOMEN/PELVIS WITHOUT Observed: 07/06/2018 Status: F Source: [place] CONT 10:29 AM [facility] REPOSITORY [facility] Imaging Services [address] [place] [address] Abdomen/Pelvis without Cont MR#: [id number] Acct: [id number] Name: ALBERTO STRICKLAND Rep #: [id number] : 1950 F 68 From: Jenaro Yadiel HERNANDEZ PCP: Erma Parker III, MD Status: REG ER Study: Abdomen/Pelvis without Cont Date of Exam: 07/06/18 Exam# [id number] Ordering Dr: Cyndi Carlos MD STUDY: CT [...] findings, as detailed above. Electronically Signed: Jenaro CottoDO at 11:23 EDT Tel , Service support , CC: Erma Parker III, MD; Cyndi Carlos MD Outpatient Physical Therapist: Signed CBC W/DIFF, AUTOMATED Collected: 07/06/2018 Status: F Source: [place] 9:42 AM [facility] REPOSITORY TYPE CODE TESTS RESULT OUT OF [...] Lymph 2.02 Performed By: #### L100.0100 #### [facility] [address] [facility] [place], [place], [id number] BASIC METABOLIC Collected: 07/06/2018 Status: F Source: [place] PROFILE (BMP) 9:42 AM [facility] REPOSITORY TYPE CODE TESTS RESULT OUT OF [...] Performed By: #### L500.2500, L500.3400, L501.2450 #### [facility] [address] [facility] [place], [place], [address] LIVER PROFILE Collected: 07/06/2018 Status: F Source: [place] 9:42 AM [facility] REPOSITORY TYPE CODE TESTS RESULT OUT OF [...] Performed By: #### L500.2500, L500.3400, L501.2450 #### [facility] [address] [place], [address] LIPASE Collected: 07/06/2018 Status: F Source: [place] 9:42 AM [facility] REPOSITORY TYPE CODE TESTS RESULT OUT OF RANGE REFERENCE UNITS LAB L501.2450 73-393 U/L Normal LIPASE 136 Performed By: #### L500.2500, L500.3400, L501.2450 #### [facility] [address] [place], [address] CHEST PA AND LATERAL Observed: 07/06/2018 Status: F Source: [place] 9:19 AM [facility] REPOSITORY [facility] Imaging Services [address] [place] [address] Chest PA and Lateral MR#: [id number] Acct: [id number] Name: ALBERTO SRTICKLAND Rep #: [id number] : 1950 F 68 From: Irving Whipple MD PCP: Erma Parker III, MD Status: REG ER Study: Chest PA and Lateral Date of Exam: 07/06/18 Exam# [id number] Ordering Dr: Cyndi aCrlos MD STUDY: X-RAY CHEST REASON FOR EXAM: [...] Erma Parker III, MD; Cyndi Carlos MD Outpatient Physical Therapist: Signed PROGRESS Observed: 07/06/2018 Status: COMPLETED Source: [place] 8:55 AM [facility] REPOSITORY O ID: [id number] Author: Vaishnavi Ferreira Service: (none) Author Type: Nurse Practitioner Type: Progress Notes Filed: 07/06/2018 9:29 AM Note Text: Subjective The history is provided by the patient. No english as a second language teacher was used. 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 Patient given directions to [place] [facility], report called and red card sent with patient. - XR RIBS/CHEST 3V AP RIB/OBLS/CXR RT Diagnosis and treatment plan were discussed and questions were answered to the patient's satisfaction. Pt acknowledged understanding of concepts and follow up plan. Specific signs and symptoms that would indicate the need for higher level of care were discussed in detail warranting prompt ER evaluation. Vaishnavi Ferreira APRN.PATIENT SCHEDULING COORDINATOR CNOV Observed: 07/06/2018 Status: COMPLETED Source: [place] 8:45 AM [facility] REPOSITORY Office Visit (UCWSTR) ALBERTO STRICKLAND ([id number]) 1950 F Date Time Provider Department 07/06/18 8:45 AM VAISHNAVI FERREIRA ([facility]) [facility] During your visit today, we recorded the following information about you: Temperature Pulse Respiration Blood pressure 97.1 degrees 76/minute 16/minute 138/78 Weight 82.1 kg Vaishnavi Ferreira APRN.CNP 07/06/2018 9:29 AM Signed Subjective The history is provided by the patient. No english as a second language teacher was used. 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 Retired [employer] [...] and lack of investigative tools available at [facility], recommend patient be seen at nearest ED for further work up of pain. Patient given directions to [place] [facility], report called and red card sent with patient. - XR RIBS/CHEST 3V AP RIB/OBLS/CXR RT Diagnosis and treatment plan were discussed and questions were answered to the patient's satisfaction. Pt acknowledged understanding of concepts and follow up plan. Specific signs and symptoms that would indicate the need for higher level of care were discussed in detail warranting prompt ER evaluation. Vaishnavi Ferreira APRN.PATIENT SCHEDULING COORDINATOR Referring Provider: SELF [200] Allergies As of [...] Fully Assessed Reason for Visit: Rib Injury [47574] Cmt: right rib pain x 2 weeks, did feel pop x 3-4 weeks ago after bending over a freezer Primary Visit Diagnosis:Rib pain on right side [R07.81] Order(s):XR RIBS/CHEST 3V AP RIB/OBLS/CXR RT [2042309] Order #: [id number] Prescriptions as of 07/06/2018 Sig: ALENDRONATE 68 [...] [I8*INVALID FOR* Letter Text Alberto Strickland Vaishnavi Ferreira APRN.[facility] Urgent Care [address] [id number] Dept: [phone] Date this form was last completed: July 06, 2018 Reason for Emergency Transport: RUQ pain 07/16 Name: Alberto Strickland [facility] Number : [id number] Age: [age] year old : 1950 Address: [address] [place] [address] (home) Primary care physician: [place] [address] [place] [address] Current Vital Signs: BP 138/78 Pulse 76 [...] mg by mouth once daily. lactobacillus rhamnosus-Inulin ([employer]) 10 billion cell -245 mg cpSP [...] Laterality Date - COLONOSCOP W/ OR W/O [facility] [[email or web address] SPEC Colonoscopy - COLONOSCOP W/ OR W/O [facility] [[email or web address]] SPEC 07/13/07 Lax colon - COLONOSCOP W/ OR W/O [facility] [[email or web address]] SPEC 03/26/14 Colonoscopy - DECOMPRESSION PLANTAR DIGITAL NERVE 2000 heel spur/ plantar fasciitis repair Rt - EGD W/O [facility] [[email or web address]] SPECIMEN W/BX 07/13/07 Gastritis, fundic gland polyps [...] EXT JOINT Observed: 06/05/2018 Status: F Source: [place] ONLY(ROUTINE) 9:30 AM [facility] REPOSITORY [facility] Imaging Services [address] [place] [address] Upper Ext Joint Only(Routine) MR#: [id number] Acct: [id number] Name: ALBERTO STRICKLAND Rep #: [id number] : 1950 F 68 From: Jenelle White MD PCP: Erma Parker III, MD Status: REG CLI Study: Upper Ext Joint Only(Routine) Date of Exam: 06/05/18 Exam# [id number] Ordering Dr: AMERICO ESTRADA NP STUDY: MRI [...] CC: Erma Parker III, MD; AMERICO ESTRADA Outpatient Physical Therapist: Signed PROGRESS Observed: 03/30/2018 Status: COMPLETED Source: [place] 6:26 PM [facility] REPOSITORY HNO ID: [id number] Author: Erma Parker III Service: (none) Author [...] - AXIAL Observed: 03/28/2018 Status: F Source: [place] 3:41 PM [facility] REPOSITORY * * *Final Report* * * DATE OF EXAM: Mar 28 2018 3:41PM [facility] 0804 - BD DXA - AXIAL SKELETON [...] Osteoporosis Less than or equal to -2.5 Outpatient Physical Therapist[facility] Transcribe Date/Time: Mar 28 2018 4:41P Dictated by : HUSSEIN PEPPER MD This examination was interpreted and the report reviewed and electronically signed by: HUSSEIN PEPPER MD on Mar 28 2018 4:42PM EST [id number] PROGRESS Observed: 03/28/2018 Status: COMPLETED Source: [place] 3:30 PM [facility] REPOSITORY HNO ID: [id number] Author: Roman Shankar (Rt) Kary Cantor Service: (none) Author Type: Wastewater Analyst Lab Analyst Type: Progress Notes Filed: 03/28/2018 3:42 PM Note Text: Radiology Service Progress Note PATIENT NAME: Alberto Strickland DATE OF SERVICE: March 28, 2018 TIME: 3:30 PM PATIENT IDENTITY VERIFICATION COMPLETED USING TWO (2) METHODS: Patient confirmed name verbally and Date of . PATIENT GENDER DATA: Female. status: : No status: NO. PATIENT RELEVANT IMPLANT DATA REVIEWED: Not Applicable RADIOLOGY DEPARTMENT: [facility] Bone density PERIPHERAL IV DATA: Not applicable SIGNED BY: RT Ariela March 28, 2018 3:30 PM PROGRESS Observed: 03/25/2018 Status: COMPLETED Source: [place] 12:23 PM [facility] REPOSITORY HNO ID: [id number] Author: Erma Parker III Service: (none) Author Type: Physician Type: Progress Notes Filed: 03/25/2018 12:23 PM Note Text: Alberto, Very good diabetic control. Magnesium level is normal. Liver function tests and electrolytes are normal. Kidney function is stable over the past year. I have no real explanation for the muscle cramping. I do recommend regular stretching exercises. Erma Parker III, MD, FAAFP COMP METABOLIC PANEL Collected: 03/22/2018 Status: F Source: [place] 4:17 PM [facility] REPOSITORY TYPE CODE TESTS RESULT OUT OF REFERENCE UNITS RANGE LAB TP 6.3-8.0 g/dL Protein, Total 7.3 LAB ALB 3.9-4.9 g/dL Low Albumin 3.8 LAB CA 8.5-10.2 mg/dL Calcium, Total 9.0 LAB TBIL 0.2-1.3 mg/dL Bilirubin, Total 0.2 LAB ALKP 32-117 U/L Alkaline Phosphatase 106 LAB AST 13-35 U/L AST 29 LAB GLU 74-99 mg/dL Glucose 85 Result Comment: The [place] Diabetes Association (ADA) provides guidance for cutoff [...] Standards of Medical Care in Diabetes 2016, [place] Diabetes Association. Diabetes Care. 2016.39(Suppl 1). LAB [...] has been calibrated to be traceable to IDMS. An eGFR <60 mL/min/1.73m2 for >3 months is consistent with chronic kidney disease. Refer to KDOQI guidelines for clinical interpretation. In patients with unstable renal function, e.g. those with acute kidney injury, the eGFR may not accurately reflect actual GFR. Performed By: #### CMP, MG1 #### [facility] [address] [address] MAGNESIUM Collected: 03/22/2018 Status: F Source: [place] 4:17 PM [facility] REPOSITORY TYPE CODE TESTS RESULT OUT OF REFERENCE UNITS RANGE LAB MG 1.7-2.3 mg/dL Magnesium 2.2 Performed By: #### CMP, MG1 #### [facility] [address] [address] HEMOGLOBIN A1C Collected: 03/22/2018 Status: F Source: [place] 4:16 PM [facility] REPOSITORY TYPE CODE TESTS RESULT OUT OF REFERENCE UNITS RANGE LAB HGBA1C 4.3-5.6 % High Hemoglobin A1c 6.0 LAB HBA0 mg/dL Est. Average Glucose 126 Result Comment: eAG: (Estimated average glucose) is a calculated value from HgbA1c and is sales representative cash registers of the average blood glucose level in the last 2-3 month period. Performed By: #### HBA1C #### [facility] [address] [address] [place], [place] [address] PROGRESS Observed: 03/22/2018 Status: COMPLETED Source: [place] 3:41 PM [facility] [place] REPOSITORY HNO ID: [id number] Author: Erma Parker III Service: (none) Author [...] MD CNOV Observed: 03/22/2018 Status: COMPLETED Source: [place] 3:00 PM [facility] REPOSITORY [facility] MARCO ACHARLESKecia Costello ([id number]) 1950 F Date Time Provider Department 03/22/18 3:00 PM ERMA PARKER III [facility] During your visit today, we recorded the [...] headache Date Reviewed: 03/22/2018 Reviewed by: Sandra ([facility]) DEE Lara - Fully Assessed Reason for [...] capsuleRfl: 1 MAGNESIUM BLD [SQMG1] Order #: [id number] FUTURE COMP METABOLIC PANEL [SQCMP] Order #: [id number] FUTURE DXA-AXIAL SKELETON [[id number]] Order #: [id number] FUTURE Prescriptions as of 03/22/2018 Sig: POTASSIUM [...] exercise and before bed. same medications Erma A Cebul, III MD BONE MINERAL DENSITY PATIENT INSTRUCTIONS [...] Discontinued During This Encounter potassium chloride ER (LAUREN CHAND* 360 * 3 05/08/2017 03/22/2018 Route: ORAL [...] LEAD ELECTROCARDIOGRAM Observed: 01/26/2018 Status: F Source: [place] 2:26 PM [facility] REPOSITORY [facility] Cardiovascular Services [address] [place] [address] 12 Lead EKG 01/25/18 1231 MR#: [id number] Acct: [id number] Name: ALBERTO STRICKLAND APERA BAGS Rep #: [id number] : 1950 67 From: Christophe Gonzalez MD [...] ECG Confirmed by CHRISTOPHE GONZALEZ MD ([id number]), staff editor GREGG LAU ([id number]) on 01/26/2018 2:25:39 PM Referred By: DYAN Confirmed By:CHRISTOPHE GONZALEZ MD 01/26/18 1425 Date Christophe Gonzalez MD CC: Erma Parker III, MD; Jono Trevino MD Signed EMERGENCY DEPARTMENT Observed: 01/25/2018 Status: F Source: [place] SUMMARY 5:05 PM [facility] REPOSITORY [facility] Medical Records Department [address] [place] [address] Emergency Department Summary 01/25/18 1431 MR#: [id number] Acct: [id number] Name: CHARLES STRICKLANDKecia Costello Rep #: [id number] : 1950 67 From: Jono Trevino MD [...] Vertigo, resolved. This note was generated with SoWeTrip dictation software. It may contain incorrect words, [...] your Primary Care Provider. Call [facility] ([phone]) or report to the closest Emergency Room. Call 911 if necessary. 01/25/18 1705 <Electronically signed by Jono Trevino MD> Date Jono Trevino MD Cosigner Signature (If Indicated): Date CC: Erma Parker III, MD CBC W/DIFF, AUTOMATED Collected: 01/25/2018 Status: F Source: [place] 1:05 PM [facility] REPOSITORY TYPE CODE TESTS RESULT OUT OF [...] Lymph 2.15 Performed By: #### L100.0100 #### [facility] [address] [place], [address] BASIC METABOLIC Collected: 01/25/2018 Status: F Source: [place] PROFILE ([facility]) 1:05 PM [facility] REPOSITORY TYPE CODE TESTS RESULT OUT OF [...] GAP 7 Performed By: #### L500.2500 #### [facility] [address] [facility] [place], [address] BRAIN/HEAD WITHOUT Observed: 01/25/2018 Status: F Source: [place] CONTRAST 12:23 PM [facility] REPOSITORY [facility] Imaging Services [address] [place] [address] Brain/Head without Contrast MR#: [id number] Acct: [id number] Name: ALBERTO STRICKLAND Rep #: [id number] : 1950 F 67 From: Robinson Menjivar PCP: Erma Parker III, MD Status: REG ER Study: Brain/Head without Contrast Date of Exam: 01/25/18 Exam# [id number] Ordering Dr: Jono Trevino MD STUDY: CT [...] Erma Parker III, MD; Jono Trevino MD Outpatient Physical Therapist: Signed PROGRESS Observed: 01/08/2018 Status: COMPLETED Source: [place] 9:12 AM [facility] OTHER CAMPUS REPOSITORY O ID: [id number] Author: Chon Banks Service: (none) Author Type: Physician Type: Progress Notes Filed: 01/08/2018 12:50 PM Note Text: PERTINENT CARDIAC HISTORY HTN Chest pain - normal cath HL - statin intolerant ADHERENCE TO GUIDELINES AN-I or ARB for HF with prior LVEF<40 (NQF 0081) - N/A ASA or Plavix for ASHD (NQF 0067) - met Beta gustavo for ASHD with prior NE or prior LVEF<40 (NQF 0070) - N/A [...] treatment plan. This note was generated using SoWeTrip voice recognition system, and there may be [...] 08, 2018 9:12 AM CC: SYDNI Otoole MDOV Observed: 01/08/2018 Status: COMPLETED Source: [place] 8:30 AM [facility] OTHER [facility] REPOSITORY Office Visit ([facility]) ALBERTO STRICKLAND ([id number]) 1950 F Date Time Provider Department 01/08/18 8:30 AM CHON BANKS During your visit today, we recorded the following information about you: Pulse Blood pressure Weight Height 56/minute 126/78 83.8 kg 1.549 m Chon Banks MD 01/08/2018 12:50 PM Signed PERTINENT CARDIAC HISTORY HTN Chest pain - normal cath HL - statin intolerant ADHERENCE TO GUIDELINES AN-I or ARB for HF with prior LVEFANDlt;40 (NQ 0081) - N/A ASA or Plavix for ASHD (NQ 0067) - met Beta gustavo for ASHD with prior NE or prior LVEFANDlt;40 (NQ 0070) - N/A Beta gustavo for HF with prior LVEFANDlt;40 (NQ 0083) - N/A AN-I or ARB for ASHD with DM or prior LVEFANDlt;40 (NQ 0066) - N/A Statin therapy for ASHD or FHL or DM - intolerant BMI documented and plan if ANDgt;25 (NQ 0421) - lifestyle recommendation form Tobacco [...] treatment plan. This note was generated using SoWeTrip voice recognition system, and there may be [...] the following areas and commit to making half-way changes. EAT A WHOLE FOOD, PLANT BASED [...] in your area. Referring Provider: CHON BANKS [[id number]] Allergies As of Date: 01/08/2018 Noted Allergy [...] W INTERP (MED OFFICE) [ECG06] Order #: [id number] Prescriptions as of 01/08/2018 Sig: GABAPENTIN 300 [...] the following areas and commit to making lobsterman changes. EAT A WHOLE FOOD, PLANT BASED [...] Status:Closed by CHON BANKS MD on 01/08/18 ALLERGIES ALLERGIES DATE TYPE / CODE NAME / CODE REACTION SEVERITY SOURCE Drug Beta-Blockers Other Unknown Nati 9 Allergy/388615899 (Beta-Adrenergic Community (SNOMED CT) Bloc/I635325193([facility] NORM) Repository Drug codeine/[id number] Other Unknown Nati 9 Allergy/822663729 (RXNORM) Community (SNOMED CT) Hospital Repository DRUG ATORVASTATIN OTHER: SEE Annette Ruby 4 INGREDI/271111530 CALCIUM Clinic Other (SNOMED CT) [place] Repository DRUG SPIRONOLACTONE OTHER: SEE Annette Ruby 4 INGREDI/139971073 Clinic Other (SNOMED CT) [place] Repository DRUG ISOSORBIDE OTHER: SEE C Ruby 2 INGREDI/844756032 Clinic Other (SNOMED CT) [place] Repository DRUG CODEINE INTOLERANCE Med Ruby 0 INGREDI/142341909 Clinic Other (SNOMED CT) [place] Repository DRUG PERINDOPRIL RASH Ruby 5 INGREDI/032600747 ERBUMINE Clinic Other (SNOMED CT) [place] Repository DRUG LISINOPRIL COUGH Ruby 5 INGREDI/217120616 Clinic Other (SNOMED CT) [place] Repository Miscellaneous OTHER COUGH Ruby 5 Allergy/756953029 Clinic Other (SNOMED CT) [place] Repository NG/451672944(SNOM CODEINE [facility] ED [facility]) [facility] Repository NG/179205568(SNOM PERINDOPRIL [facility] ED CT) ERBUMINE Health System Repository NG/445754775(SNOM ISOSORBIDE [facility] ED CT) [facility] System Repository NG/182593406(SNOM ATORVASTATIN [facility] ED CT) CALCIUM [facility] Repository NG/562798161(SNOM LISINOPRIL [facility] ED CT) [facility] System Repository NG/769521147(SNOM SPIRONOLACTONE [facility] ED CT) [facility] System Repository NG/783828176(SNOM OTHER [facility] ED CT) Health System Repository ENCOUNTERS ENCOUNTERS ADMIT/DISCHARGE ACCOUNT NUMBER ADMITTING ENCOUNTER LOCATION SOURCE CLASS 11/28/2018/11/28/19 [id number] Ambulatory [address] ding:ENRoom: Repository AC12 11/01/2018/11/01/20 [id number] Ambulatory BMSBuilding: [address] Repository 10/19/2018/10/22/20 [id number] Ambulatory [address] Main [place] Repository 10/15/2018/10/16/20 [id number] Ambulatory [address] Repository 10/07/2018/10/07/20 [id number] Emergency [address] ding:ED Repository 09/26/2018/09/28/20 [id number] Ambulatory [address] Main [place] Repository 09/12/2018/09/13/20 [id number] Ambulatory [address] Repository 09/10/2018/09/12/20 [id number] Ambulatory [address] Main [place] Repository 09/10/2018 [id number] Ambulatory [facility] MEDICAL Repository CENTERBuildi ng:NEOWS 09/07/2018/09/10/20 [id number] Ambulatory [address] Main [place] Repository 09/06/2018/09/06/20 [id number] Ambulatory [address] Main [place] Repository 09/05/2018 [id number] Ambulatory [facility] Main [place] Repository 08/28/2018/08/31/20 [id number] Ambulatory [address] Main [place] Repository 08/20/2018/08/21/20 [id number] Ambulatory [address] Main [place] Repository 07/12/2018/07/13/20 [id number] Ambulatory [address] Main [place] Repository 07/06/2018/07/06/20 [id number] Emergency [address] ding:ED Repository 07/06/2018 [id number] Ambulatory [facility] Main [place] Repository 07/06/2018 [id number] Ambulatory [facility] [place] Repository 06/05/2018 [id number] Ambulatory [facility] ding:MRI Repository 03/28/2018/03/28/20 [id number] Ambulatory [address] Main [place] Repository 03/22/2018/03/22/20 [id number] Ambulatory [address] Main [place] Repository 03/22/2018/03/23/20 [id number] Ambulatory [address] Main [place] Repository 01/25/2018/01/26/20 [id number] Emergency [address] ding:ED Repository 01/08/2018/01/09/20 [id number] Ambulatory [address] Other [place] Repository 01/08/2018/01/09/20 [id number] Ambulatory [address] MEDICAL Repository CENTERBuildi ng:PHILLIP PAYERS PAYERS ENCOUNTER GUARANTOR PAYER SUBSCRIBER SOURCE 11/28/2018 OPAL J Primary OPAL J [place] [id number] Insurance:MEDICARE DRYSDALEDOB: [facility] A [facility] [id number] [place] Number: Repository [id number]: 330 [id number] [phone] (HP) Date:2018-11-01 11/28/2018 Secondary OPAL J Nati Insurance:PHYSICIAN DRYSDALEDOB: [facility] MUTUAL INS [facility] [id number] Hospital Number: Repository [id number] Date:0123-18-48SH [address] [place] [phone]: 11/28/2018 Tertiary NOT GIVENUNK Nati Insurance:SELF PAY [facility] Number: Effective Repository Date:2018-11-01 11/01/2018 OPAL J Primary OPAL J Nati [id number] Insurance:MEDICARE DRYSDALEDOB: [facility] PART A [facility] [id number] [place], [place] Number: Repository [address]Ytt: 330 [id number] [phone] () Date:2018-10-25 11/01/2018 Secondary OPAL J N[place] Insurance:PHYSICIAN [facility]OB[facility] [id number] Hospital Number: Repository [id number] Date:0449-99-13MA [address] [place] [phone]: 11/01/2018 Tertiary NOT GIVENUNK Nati Insurance:SELF PAY [facility] Number: Effective Repository Date:2018-10-31 10/07/2018 OPAL J Primary OPAL J [place] [id number] Insurance:MEDICARE DRYSDALEDOB: [facility] PART A [facility] [id number] [place] Number: Repository [address]Mfz: 330 [id number] [phone] (HP) Date:2018-10-07 10/07/2018 Secondary OPAL J [place] Insurance:PHYSICIAN DRYSDALEDOB: [facility] MUTUAL INS [facility] [id number] Hospital Number: Repository [id number] Date:4858-28-86XS [address] [place] [phone]: 10/07/2018 Tertiary NOT GIVENUNK Nati Insurance:SELF PAY [facility] Number: Effective Repository Date:2018-10-07 09/10/2018 OPAL J Primary OPAL J [facility] DRYSDALEDOB: Insurance:MEDICARE A DRYSDALEDOB: [facility] [id number] AND [facility] Number: [id number] Repository [place] [id number] [place] Date: [address]Hgi: () 09/10/2018 Secondary OPAL J [facility] Insurance:PHYSICIANS DRYSDALEDOB: [facility] Number: [id number] Repository [id number] Date: 07/06/2018 [place] Primary [place] [id number] Insurance:MEDICARE [place]DOB: [facility] PART A [facility] [id number] Number: Repository [id number]: 330 [id number] [phone] () Date:2018-07-06 07/06/2018 Secondary [place] N[place] Insurance:PHYSICIAN [place]DOB: Community MUTUAL INS COPolicy [id number] Hospital Number: Repository [id number] Date:8602-59-61RI [address] [address]EL: 07/06/2018 Tertiary NOT GIVENUNK Nati Insurance:SELF PAY [facility] Number: Effective Repository Date:2018-07-06 06/05/2018 [place] Primary [place] [id number] Insurance:MEDICARE [place]DOB[facility] [id number] [place] Number: Repository [address]Ezd: 330 [id number] [phone] (HP) Date:2018-05-24 06/05/2018 Secondary [place] Nati Insurance:PHYSICIAN [place]aleDOB: Community MUTUAL INS COPolicy [id number] Hospital Number: Repository [id number] Date:6116-07-18NU [address] [address]DI: 06/05/2018 Tertiary NOT GIVENUNK Nati Insurance:SELF PAY [facility] Number: Effective Repository Date:2018-05-24 01/25/2018 [place] Primary [place] Nati [id number] Insurance:MEDICARE DrysdaleDOB: [facility] PART A BPolicy [id number] [place] Number: Repository [address]Jek: [phone] [id number] [phone] () Date:2018-01-25 01/25/2018 Secondary [place] Insurance:PHYSICIAN DrysdaleDOB: [facility] [id number] Hospital Number: Repository [id number] Date:0556-62-31DS JULIO CÉSAR SPEAR [address]GA: 01/25/2018 Tertiary NOT GIVENUNK Nati Insurance:SELF PAY [facility] Number: Effective Repository Date:2018-01-25 01/08/2018 OPAL J Primary OPAL J [facility] DRYSDALEDOB: Insurance:MEDICARE A DRYSDALEDOB: Health System [id number] AND BPolicy Number: [id number] [facility] [id number] [place], [place] Date: [address]Vtu: () 01/08/2018 Secondary OPAL J [facility] Insurance:PHYSICIANS DRYSDALEDOB: [facility] Number: [id number] Repository [id number] Date:
== END 2018-11-28 08:27 | disposition home or self-care (01) ==
LOC: EN 06:17 → AC 06:18
PROVIDERS: Family Provider Family Medicine; PCP Family Medicine; Referring Provider Surgery; Visit Provider Surgery
PROC: 0DJD8ZZ Inspection of Lower Intestinal Tract, Via Natural or Artificial Opening Endoscopic (ICD-10-PCS; CPT 45378; principal; 2018-11-28 07:25)
DX: K57.30 Diverticulosis of large intestine without perforation or abscess without bleeding (principal); K64.8 Other hemorrhoids; K21.9 Gastro-esophageal reflux disease without esophagitis; K59.00 Constipation, unspecified; R19.7 Diarrhea, unspecified; E07.9 Disorder of thyroid, unspecified; E87.6 Hypokalemia; I10 Essential (primary) hypertension; L25.9 Unspecified contact dermatitis, unspecified cause; Z85.3 Personal history of malignant neoplasm of breast; Z87.891 Personal history of nicotine dependence; Z79.82 Long term (current) use of aspirin; Z79.899 Other long term (current) drug therapy
CPT/HCPCS: 45378; J7120

== ENCOUNTER → 2019-07-01 | Outpatient (CLI) | payer MEDICARE, OTHER, SELFPAY ==
[2019-07-01 10:17] VITALS: BMI 34.7
[2019-07-01 11:42] LABS: Hematocrit 35.7 % (37-47); Hemoglobin 11.6 g/dL (12.0-15.0); Mean Corp Hgb Conc 32.5 g/dL (32-36); Mean Corpuscular Hgb 28.6 pg (27.0-32.0); Mean Corpuscular Volume 87.9 fL (81-99); Mean Platelet Vol. 9.7 fl (6.2-12.0); Platelet Count 279 K/mm3 (150-450); RBC Distribution Width CV 13.4 % (11.6-14.6); RBC Distribution Width SD 43.1 fl (35.1-43.9); Red Blood Count 4.06 M/mm3 (4.2-5.4); White Blood Count 7.7 K/mm3 (4.4-11.0)
[2019-07-01 11:51] LABS: International Normalized Ratio 1.1; Prothrombin Time (Protime)PT. 13.7 SECONDS (11.7-14.9)
[2019-07-01 11:52] LABS: Partial Thromboplast Time 26.9 Seconds (24.1-36.2)
[2019-07-01 12:05] LABS: Anion Gap 7 (5-15); BUN 14 mg/dL (7-18); BUN/Creat Ratio 11.5 RATIO (10-20); Calcium,Total 8.9 mg/dL (8.5-10.1); Chloride 105 mmol/L (98-107); Creatinine, Serum 1.22 mg/dL (0.55-1.02); EST Glomerular Filtration Rate 46 mL/min (>60); Est Glom Filt Rate - Afr Amer 56 mL/min (>60); Glucose 94 mg/dL (74-106); Potassium 4.2 mmol/L (3.5-5.1); Sodium Level 141 mmol/L (136-145)
== END | disposition home or self-care (01) ==
LOC: LAB 11:24
PROVIDERS: Family Provider Family Medicine; PCP Family Medicine; Referring Provider Internal Medicine Cardiovascular Disease; Visit Provider Internal Medicine Cardiovascular Disease
DX: R06.09 Other forms of dyspnea (principal); R07.9 Chest pain, unspecified; I34.0 Nonrheumatic mitral (valve) insufficiency
CPT/HCPCS: 36415; 80048; 85027; 85610; 85730

== ENCOUNTER → 2019-07-03 | Outpatient (CLI) | payer MEDICARE, OTHER, SELFPAY ==
[2019-07-01 10:17] VITALS: BMI 34.7
[2019-07-03 09:17] LABS: AST(SGOT) 19 U/L (15-37); Alanine Aminotransfer ALT/SGPT 22 U/L (13-56); Albumin, Serum 3.6 g/dL (3.2-5.0); Alkaline Phosphatase 124 U/L (45-117); Bilirubin, Direct 0.06 mg/dL (0.00-0.30); Cholesterol 163 mg/dL (200); Globulin 3.7 g/dL (2.2-4.2); High Density Lipoprotein 48 mg/dL; Protein, Total 7.3 g/dL (6.4-8.2); Triglycerides 107 mg/dL; Very Low Density Lipoprotein 21 mg/dL (5-40)
== END | disposition home or self-care (01) ==
LOC: LAB 08:20
PROVIDERS: Family Provider Family Medicine; PCP Family Medicine; Referring Provider Internal Medicine Cardiovascular Disease; Visit Provider Internal Medicine Cardiovascular Disease
DX: E78.00 Pure hypercholesterolemia, unspecified (principal)
CPT/HCPCS: 36415; 80061; 80076

== ENCOUNTER 2019-08-16 06:52 | Day surgery (SDC) | payer MEDICARE, OTHER, SELFPAY ==
[2019-07-01 10:17] VITALS: BMI 34.7
[2019-07-19 09:47] VITALS: BMI 34.7
[2019-08-15 10:01] VITALS: BMI 33.4
--- NOTE | 2019-08-15 10:20 | HP_ITS ---
[facility] HPI History of Present Illness Surgical H&P: Yes Details: HPI History of Present Illness Details: Mrs. Fernandez is a very pleasant 69-year-old nondiabetic, non-smoking female, with a history of hypertension, diverticulitis status post recent acute flare with colonoscopy with Dr. Kelley on 11/28/2018 without evidence of perforation or mass. Patient was treated antibiotics. Patient is a former patient of Dr. Beka Temple, and on 03/13/2019 had complained of persistent exertional chest discomfort. Apparently she had a history of left heart catheterization on 01/04/2016, at the [facility] which showed angiographically normal left main, minimal irregularities in the LAD, left circumflex, and right coronary artery. No stenting was recommended at that time. She is unable to tolerate statin therapy due to intolerance. As part of her cardiac evaluation on 03/27/2019 she underwent a submaximal treadmill/MPI which was terminated due to chest pain and angina and her stress echocardiogram component was negative for ischemia. Patient only went about 5 METS, with 71% of target heart rate. Her transthoracic echo which took place on 04/03/2019 showed an EF of 65%, stage I diastolic dysfunction, normal RV size and function, RVSP estimated to be 31 mmHg, and 1-2+ mitral regurgitation. In addition a CT scan done on 04/17/2019 demonstrated a large retrocardiac hiatal hernia and apparently will require corrective surgery soon. On further history, the patient states that she has had exertional chest pain on and off for the past 10 to 12 years. More recently, her chest pain is accelerated and got worse while she is cutting her grass. Her chest pain always occurs with exertion, and was relieved with rest. She reports that she had chest pain during her most recent stress test, albeit at a submaximal heart rate. Patient was scheduled to undergo a left and right heart catheterization to assess her coronary anatomy, mitral regurgitation and her preoperative risk stratification for upcoming hiatal hernia surgery but this was postponed due to a flareup of IBS. The patient is now here for an updated H&P. She reports her IBS has markedly improved with antibiotic therapy and MiraLAX. She denies any interim chest pain. In our office today her blood pressure is 140/60, pulse of 64 and regular. Her physical exam demonstrates clear lungs bilaterally, regular rate and rhythm, soft 2/6 holosystolic murmur best to the left lower sternal border, no S3 or S4. EKG dated 07/01/2019 shows normal sinus rhythm, normal axis, normal intervals, no evidence of previous myocardial infarction. EKG dated 08/15/2019 shows normal sinus rhythm, normal axis, normal intervals, no evidence of previous myocardial infarction. Intake Vital Signs 08/15/19 Height 5 ft 1 in 08/15/19 Weight: 177 lb 08/15/19 Body Mass Index (BMI) 33.4 08/15/19 Blood Pressure 140/60 H 08/15/19 Blood Pressure Location Lt brachial 08/15/19 Blood Pressure Position Sitting 08/15/19 Respiratory Rate 20 H 08/15/19 Pulse Rate 64 08/15/19 Pulse Source Auscultation Intake Visit Reasons: Update H&P for cath Supervisor Twisting Department Required: No Is patient in pain?: No Allergies hydrochlorothiazide Allergy (Intermediate, Verified 07/19/19 09:53) rash lisinopril Adverse Reaction (Intermediate, Verified 07/19/19 09:53) cough atorvastatin [From Lipitor] Adverse Reaction (Unknown, Verified 07/19/19 09:53) unknown spironolactone Adverse Reaction (Unknown, Verified 07/19/19 09:53) unknown Beta-Blockers (Beta-Adrenergic Bloc Adverse Reaction (Verified 07/19/19 09:53) cough codeine Adverse Reaction (Verified 07/19/19 09:53) Intolerance perindopril [From Aceon] Adverse Reaction (Verified 07/19/19 09:53) rash,cough Medications Aspirin [Aspirin, Baby] 81 mg PO DAILY@0800 01/01/14 [History Confirmed 08/15/19] Levothyroxine [Synthroid] 88 mcg PO DAILY 01/01/14 [History Confirmed 08/15/19] Losartan Potassium [Cozaar] 100 mg PO DAILY 01/01/14 [History Confirmed 08/15/19] Potassium Chloride [K-Dur] 20 meq PO 4X/DAY 01/01/14 [History Confirmed 08/15/19] Amlodipine [Norvasc] 5 mg PO DAILY 01/25/18 [History Confirmed 08/15/19] Furosemide [Lasix] 20 mg PO BID 01/25/18 [History Confirmed 08/15/19] Isosorbide Mononitrate [Isosorbide Mononitrate ER] 15 mg PO DAILY 01/25/18 [History Confirmed 08/15/19] Labetalol [Trandate (Beta Dipak)] 100 mg PO BID 01/25/18 [History Confirmed 08/15/19] Pantoprazole Sodium [Protonix] 40 mg PO DAILY 01/25/18 [History Confirmed 08/15/19] Biotin 1 mg PO DAILY 07/06/18 [History Confirmed 08/15/19] gabapentin 300 mg capsule 300 mg PO TID PRN cap 06/28/19 [History Confirmed 08/15/19] clopidogrel 75 mg tablet 75 mg PO DAILY #30 tab 07/01/19 [Rx Confirmed 08/15/19] gemfibrozil 600 mg tablet 600 mg PO BID #60 tab 07/01/19 [Rx Confirmed 08/15/19] meclizine 25 mg tablet 25 mg PO DAILY PRN 07/01/19 [History Confirmed 08/15/19] PFSH Medical History Dyspnea on exertion (Acute) Chest pain (Chronic) Nonrheumatic mitral valve insufficiency (Chronic) Essential hypertension (Chronic) Hypokalemia (Chronic) Hyperlipidemia (Chronic) Hx of breast cancer (Chronic) Diverticulosis (Chronic) Abdominal pain (Resolved) Surgical History History of left heart catheterization (Chronic 01/04/16) History of carpal tunnel release of both wrists (Chronic) History of colonoscopy (Chronic ~11/2018) Hx of cholecystectomy (Chronic) Hx of eye surgery (Chronic) Hx of repair of right rotator cuff (Chronic) Hx of tubal ligation (Chronic) Family History Mother Diabetes Heart disease Hypertension CVA (cerebral vascular accident) Sister Hypertension Heart disease Brother Heart disease Hypertension Social History (Updated 08/15/19 @ 10:21 by Behzad Merritt MD) Smoking Status: Former smoker ROS Const Const: Positive for other (Here for updated H&P for R&L cath d/t CP and [place], mitral insuff.); negative for fatigue, weakness, body ache, fever(s), headache(s), chills, frequent falls, night sweats, daytime sleepiness, difficulty sleeping, excessive sweating, weight gain, weight loss, increased appetite, poor appetite or anorexia Eyes Eyes: Negative for blind spots, loss of peripheral vision, transient loss of vision, blurry vision, change in vision, double vision, floaters, tunnel vision or other ENT ENT: Negative for headache(s), dizziness, hearing loss, tinnitus, Nosebleed/epistaxis, balance problems, post nasal drip, lip swelling, tongue swelling, bleeding gums, hoarseness, neck pain, dry mouth or other Cardio Chest Pain: Yes (with exertion) Frequency: daily Character: tightness, other (burning) Onset: exercise Location: mid sternal Duration: minutes Exacerbation: exercise, activity Relieving: rest Recurrence: exercise, activity Palpitations: No Edema: None Muscle aches with walking: None Resp Respiratory: Positive for SOB with activity; negative for SOB at rest, SOB orthopnea\SOB lying down, Cough, Coughing up blood/hemoptysis, chest congestion, pain on inspiration, snoring, stridor, wheezing, crackles, paroxysmal nocturnal dyspnea or other GI GI: Negative nausea, vomiting, heartburn, constipation, belching, bloating, cramping, vomiting blood/hematemesis, bright, red blood in stools, black,tarry stools, loose stools, Difficulty Swallowing or other : Negative for hematuria, frequent nighttime urination/ nocturia, erectile dysfunction or abnormal vaginal bleeding Musc Musc: Negative for muscle aches/ myalgia, muscle weakness, joint pain or balance problems Skin Skin: Negative redness, non-healing lesions, rash, unusual bruising, skin ulcer, wounds, jaundice or other Neuro Neuro: Negative for dizziness, lightheadedness, near syncope, syncope, orthostatic symptoms, frequent falls, headache(s), weakness, confusion, memory loss, restless legs, blurry vision, double vision, vertigo, seizures, lack of coordination or other Patricio Hematologic/Lymphatic: Negative for easy bleeding, easy bruising, enlarged lymph nodes or other Endo Endo: Negative for fatigue, cold intolerance, heat intolerance, excessive sweating, flushing, increased thirst/drinking, increased hunger, hair loss, hair growth or other Psych Psych: Negative for anxiety, depression, thoughts of harming anyone, thoughts of harming yourself, visual hallucinations, panic attacks or audible hallucinations Allergy Allergy/Immunology: Negative for throat swelling, Negative for tongue swelling, Negative for hives, Negative for rash, Negative for lip swelling Cardiology Exam Const Appearance: cooperative, healthy appearing and no acute distress Nutritional Appearance: well nourished Orientation: alert, oriented x3 and oriented to person Head Head: normal to inspection, normocephalic and atraumatic Nose: external nose normal Face and Sinus: face symmetric Mouth: oral mucosae normal Eyes General: appearance normal, both eyes and all related structures Eyelids: eyelids normal Conjunctivae: conjunctivae normal Pupils: PERRL and normal by confrontation EOM: EOM intact bilaterally Neck Neck: normal visual inspection and full ROM Carotids: normal carotid upstroke Chest Chest inspection: normal inspection of the chest Auscultation: Bilateral: Clear to Auscultation Cardio Palpation: normal PMI Rate: regular rate Rhythm: regular rhythm Heart sounds: S1 normal and S2 normal GI GI: normal to inspection, no hepatosplenomegaly and bowel sounds present Neuro General: alert, awake, oriented x3, CN's II-XI intact bilaterally and moves all extremities Skin Skin: no rashes or lesions noted Extremities Pulses: Normal: Right Femoral Pulse, Left Femoral Pulse, Right Dorsalis Pedis Pulse, Left Dorsalis Pedis Pulse, Right Posterior Tibial Pulse, Left Posterior Tibial Pulse, Right Radial Pulse, Left Radial Pulse Lower Extremity Edema: None: Bilateral Psych Psychological: normal affect Assessment & Plan 1. Chest pain R07.9 Plan 1. Chest pain: The patient is awaiting left and right heart catheterization tomorrow morning to evaluate her chest pain symptoms. It is possible her chest pain symptoms are also related to her hiatal hernia which may be worsening. Recommend patient continue her baby aspirin, Plavix, Lasix, Imdur and losartan. Should the patient require intervention we may want to consider bare-metal stenting given her irritable bowel syndrome and possible need for hiatal hernia surgery. This would only be done if her vessels greater than 3.5 mm. Orders Orders: 12 Lead EKG performed by [facility] Today 2. Nonrheumatic mitral valve insufficiency I34.0 mild (1-2+) per echo 04/03/2019 Plan 3. Mitral regurgitation: The patient has 1-2+ mitral regurgitation on echocardiogram. Despite this her pulmonary pressures appear to be normal by echocardiogram. We will confirm this with a right heart catheterization tomorrow morning. 3. Essential hypertension I10 Plan 3. Hypertension: Patient's blood pressure is optimized at this time. Continue antihypertensive medications as outlined in the [facility]. 4. Hyperlipidemia E78.5 Plan 4. Hyperlipidemia: Her LDL and HDL cholesterol are fairly well-controlled given her risk factors. Continue gemfibrozil. She is unable to take statins. 5. Return office in 6 months. This note was generated using a voice recognition system and there may be incorrect words, spelling or punctuation that were not noted when reviewing the office note prior to saving. Plan Detail Other Orders Orders: 12 Lead EKG performed by [facility] Today R06.09 Follow Up +6M (René) Coding Level of Care Code Off vis,est,level 3 Diagnoses Chest pain R07.9 Nonrheumatic mitral valve insufficiency I34.0 Essential hypertension I10 Hyperlipidemia E78.5 Coding Level of Care Code Off vis,est,level 3 Diagnoses Chest pain R07.9 Nonrheumatic mitral valve insufficiency I34.0 Essential hypertension I10 Hyperlipidemia E78.5 Supplemental Info Supplemental Information Labs LDL Cholesterol 94 mg/dL (0-130) 07/03/19 HDL Cholesterol 48 mg/dL (40-) 07/03/19 Triglycerides 107 mg/dL (-199) 07/03/19 VLDL Cholesterol 21 mg/dL (5-40) 07/03/19 Diagnostics Electrocardiogram 08/15/19 Chest X-Ray 07/06/18 08/15/19 1021 <Electronically signed by Behzad Merritt MD> Date _ Behzad Merritt MD
[2019-08-15 11:13] LABS: Hematocrit 38.6 % (37-47); Hemoglobin 12.2 g/dL (12.0-15.0); Mean Corp Hgb Conc 31.6 g/dL (32-36); Mean Corpuscular Hgb 27.9 pg (27.0-32.0); Mean Corpuscular Volume 88.1 fL (81-99); Mean Platelet Vol. 9.5 fl (6.2-12.0); Platelet Count 297 K/mm3 (150-450); RBC Distribution Width SD 45.1 fl (35.1-43.9); Red Blood Count 4.38 M/mm3 (4.2-5.4); White Blood Count 4.5 K/mm3 (4.4-11.0)
[2019-08-15 11:23] LABS: International Normalized Ratio 1.1; Prothrombin Time (Protime)PT. 13.9 SECONDS (11.7-14.9)
[2019-08-15 11:24] LABS: Partial Thromboplast Time 29.5 Seconds (24.1-36.2)
[2019-08-15 11:56] LABS: Anion Gap 5 (5-15); BUN 16 mg/dL (7-18); BUN/Creat Ratio 13.9 RATIO (10-20); Calcium,Total 9.6 mg/dL (8.5-10.1); Chloride 103 mmol/L (98-107); Creatinine, Serum 1.15 mg/dL (0.55-1.02); EST Glomerular Filtration Rate 49 mL/min (>60); Est Glom Filt Rate - Afr Amer 60 mL/min (>60); Estimated Creatinine Clearance 33.86 ml/min; Glucose 99 mg/dL (74-106); Potassium 4.2 mmol/L (3.5-5.1); Sodium Level 135 mmol/L (136-145)
[2019-08-16 08:51] LABS: Blood Gas Specimen Type VEN; VBG BASE EXCESS -1 mmol/L (-1.0-3.5); VBG Bicarbonate 25 mmol/L (22-26); VBG Oxygen Content 26 mmol/L (23-33); VBG PO2 42 mmHg (25-40); VBG SO2 75 % (50-70); VBG pCO2 42.8 mmHg (41-51); VBG pH 7.37 (7.32-7.42)
[2019-08-16 08:51] LABS: Base Excess -1 mmol/L (-2 to +2); Bicarbonate 23.9 mmol/L (22-26); Blood Gas Specimen Type ART; PO2 72 mmHG (75-100); SO2 94 % (95-99); Total Carbon Dioxide 25 mmol/L; pCO2 41.5 mmHg (35-45); pH 7.37 (7.35-7.45)
[2019-08-16 08:51] LABS: Blood Gas Specimen Type VEN; VBG BASE EXCESS 0 mmol/L (-1.0-3.5); VBG Bicarbonate 25 mmol/L (22-26); VBG Oxygen Content 27 mmol/L (23-33); VBG PO2 37 mmHg (25-40); VBG SO2 67 % (50-70); VBG pCO2 45.8 mmHg (41-51); VBG pH 7.35 (7.32-7.42)
--- NOTE | 2019-08-16 08:56 | CL.D_ITS ---
Patient Name: ALBERTO STRICKLAND Study Date: 08/16/2019 Performing: Behzad Merritt MD Ht: 61.02 inches 155 cm : 1950 Wt: 175.4 lbs 79.56 kg Age: 69 Gender: female BSA: 1.79 PROCEDURE(S) PERFORMED UV08-OUH/LHC/COR/LV CLINICAL PROFILE AND INDICATIONS Indications: Stable Known CAD, Valvular Disease, Pre-Operative Evaluation Heart Failure: None Stress/Imaging Date: 03/27/2019Stress Test with SPECT MPI: Indeterminant Angina Classification Anginal Classification w/in 2 Weeks: No symptoms CAD Presentations: Unstable angina. Other: Dyspnea on exertion, MR, pre op eval for hiatal hernia . Comorbidities/Risk Factors: Hypertension CONCLUSIONS Normal LV size, wall motion,and systolic function Perserved Left Ventricular systolic function with normal EDP Normal coronary arteries The patient has normal pulmonary hemodynamics. RECOMMENDATIONS Management as per referring Erecting Engineer d/c plavix, pt is at low risk for non cardiac hiatal hernia surgery. Manual sheath removal. Pt is at low risk for non cardiac hiatal hernia surgery. Manual sheath removal. DESCRIPTION OF PROCEDURE The patient arrived to the procedure lab. The risks and benefits of the procedure as well as a full d escription of our services here and current unavailability of surgical backup were fully explained to the patient and/or their significant other prior to the catheterization. The Timeout was completed, verifying the correct patient and procedure. The patient's procedural site was prepped and draped in the usual fashion. Local anesthetic was given subcutaneously to right groin region with Lidocaine 2%. Using a modified Seldinger technique, arterial access was obtained via the right femoral artery, a 4 Fr sheath was inserted Venous access was obtained via the right femoral vein, a 7Fr sheath was insert ed. A 7Fr thermal dilution catheter was inserted and right heart pressures were recorded, it was then advanced to PA position for cardiac outputs. Thermal dilution cardiac outputs were then recorded. O2 saturations were then obtained. Simultaneous pressures were then recorded. The Thermal dilution catheter was then removed. Left Ventriculography was performed in DODD projection using a 4 F r. Pigtail catheter. LV to AO pullback pressures were then recorded. Left Coronary Artery selective a ngiography was performed in multiple views using a 4 Fr. JL5 catheter. Right Coronary Artery selectiv e angiography was then performed in multiple views using a 4 Fr. 3DRC catheter.The arterial sheath wa s pulled and manual compression applied until hemostasis is achieved. CORONARY ANGIOGRAPHY DOMINANCE: Right Dominant LEFT HEART ASSESSMENT Left Ventricular Ejection Fraction: by LV Gram 65 % Normal LV wall motion Normal Left Ventricular systolic function Normal Left Ventricular systolic function RIGHT HEART ASSESSMENT Thermal CO: 5.3 Thermal CI: 2.96 PW: /5 3 PA: 20/7 11 RV: 24/0 4 RA: 21 0 PVR: 121 Aortic Valve Area: 3.50 Aortic Valve Index: 1.95 Aortic Valve Mean Gradient: 22.1 Mitral Valve Area: >3.50 Mitral Valve index: 1.96 Mitral Valve Mean Gradient: 12.2 Right Heart pressures - normal LEFT MAIN: Angiographically normal, Angiographically normal LEFT ANTERIOR DESCENDING ARTERY: Angiographically normal, Angiographically normal CIRCUMFLEX ARTERY: Angiographically normal, Angiographically normal RIGHT CORONARY ARTERY: Angiographically normal Angiographically normal COMPLICATIONS No Complications PROCEDURE MEDICATIONS SUMMARY OF HEMODYNAMIC DATA Time AIR REST ECG 07:22:26 RA 2/ (0) 08:35:23 RV 24/0, 4 08:35:36 PW 04/10 (3) PV 08:36:07 PA 20/7 (11) PA 08:36:18 LV 141/-16, 5 08:40:38 LV 143/-14, 8 08:40:44 LV 140/-14, 7 08:41:07 PW / (4) 08:41:07 LV 138/-14, 6 08:41:13 PW /6 (4) 08:41:13 LV 136/-13, 6 08:41:25 RV 22/3, 7 08:41:25 LV 134/-8, 7 08:41:31 RV 26/0, 5 08:41:31 LV 138/-15, 6 08:41:39 RV 23/0, 3 08:41:39 LV 130/-12, 10 08:42:47 LV 136/-14, 6 08:42:52 LVp 136/-13, 10 08:42:56 AOp 136/57 (88) 08:43:01 RM AIR REST 08:53:20 Valve Area (c P-P/ms Time AIR REST Mitral 3.50 12.2 mn/112 ms 08:41:13 Mitral 3.50 12.2 mn/112 ms 08:41:13 Aortic 3.49 22.1 mn/112 ms 08:42:56 Type SV CO (l/m) CI (l/m/ HR Time AIR REST Thermal 73.60 5.30 2.96 72 07:22:26 Label % O2 Pres/Loc Time AIR REST PA 67 PA 08:48:56 Signed By Behzad Merritt MD On 08/16/2019 08:56:23 Behzad Merritt MD
== END 2019-08-16 13:35 | disposition home or self-care (01) ==
LOC: CLSP 06:54
PROVIDERS: Family Provider Family Medicine; PCP Family Medicine; Referring Provider Internal Medicine Cardiovascular Disease; Visit Provider Internal Medicine Cardiovascular Disease
DX: I25.110 Atherosclerotic heart disease of native coronary artery with unstable angina pectoris (principal); R06.09 Other forms of dyspnea; I10 Essential (primary) hypertension; R07.9 Chest pain, unspecified; I37.0 Nonrheumatic pulmonary valve stenosis; K57.30 Diverticulosis of large intestine without perforation or abscess without bleeding; E78.5 Hyperlipidemia, unspecified; Z85.3 Personal history of malignant neoplasm of breast; Z87.891 Personal history of nicotine dependence; Z79.82 Long term (current) use of aspirin; Z79.899 Other long term (current) drug therapy
CPT/HCPCS: 36415; 80048; 82803; 85027; 85610; 85730; 93460; J7040; Q9967; C1751; C1769; C1894

== ENCOUNTER 2019-09-16 09:13 | Day surgery (SDC) | payer MEDICARE, OTHER, SELFPAY ==
[2019-09-04 08:52] VITALS: BMI 33.4
--- NOTE | 2019-09-04 09:07 | HP_ITS ---
Intake Vital Signs 09/04/19 Body Mass Index (BMI) 33.4 09/04/19 Height 5 ft 1 in 09/04/19 Weight: 180 lb 09/04/19 Body Mass Index (BMI) 34.0 09/04/19 Blood Pressure 128/70 H 09/04/19 Blood Pressure Location Rt brachial 09/04/19 Blood Pressure Position Sitting 09/04/19 Respiratory Rate 16 09/04/19 Pulse Rate 66 09/04/19 Pulse Source Monitor 09/04/19 Temperature 98.5 F 09/04/19 Temperature Source Oral 09/04/19 Pulse Ox 97 09/04/19 Oxygen Delivery Method room air Intake Visit Reasons: NEEDS EGD & C-SCOPE/THROAT & STOMACH DISCOMFORT Chief Complaint: post endo Slip Cover Cutter Required: No Is patient in pain?: No Allergies hydrochlorothiazide Allergy (Intermediate, Verified 09/04/19 08:51) rash lisinopril Adverse Reaction (Intermediate, Verified 09/04/19 08:51) cough atorvastatin [From Lipitor] Adverse Reaction (Unknown, Verified 09/04/19 08:51) unknown spironolactone Adverse Reaction (Unknown, Verified 09/04/19 08:51) unknown Beta-Blockers (Beta-Adrenergic Bloc Adverse Reaction (Verified 09/04/19 08:51) cough codeine Adverse Reaction (Verified 09/04/19 08:51) Intolerance perindopril [From Aceon] Adverse Reaction (Verified 09/04/19 08:51) rash,cough Medications Aspirin [Aspirin, Baby] 81 mg PO DAILY@0800 01/01/14 [History Confirmed 09/04/19] Levothyroxine [Synthroid] 88 mcg PO DAILY 01/01/14 [History Confirmed 09/04/19] Losartan Potassium [Cozaar] 100 mg PO DAILY 01/01/14 [History Confirmed 09/04/19] Potassium Chloride [K-Dur] 20 meq PO 4X/DAY 01/01/14 [History Confirmed 09/04/19] Amlodipine [Norvasc] 5 mg PO DAILY 01/25/18 [History Confirmed 09/04/19] Furosemide [Lasix] 20 mg PO BID 01/25/18 [History Confirmed 09/04/19] Isosorbide Mononitrate [Isosorbide Mononitrate ER] 15 mg PO DAILY 01/25/18 [History Confirmed 09/04/19] Labetalol [Trandate (Beta Dipak)] 100 mg PO BID 01/25/18 [History Confirmed 09/04/19] Pantoprazole Sodium [Protonix] 40 mg PO DAILY 01/25/18 [History Confirmed 09/04/19] Biotin 1 mg PO DAILY 07/06/18 [History Confirmed 09/04/19] gemfibrozil 600 mg tablet 600 mg PO BID #60 tab 07/01/19 [Rx Confirmed 09/04/19] meclizine 25 mg tablet 25 mg PO DAILY PRN 07/01/19 [History Confirmed 09/04/19] gabapentin 300 mg capsule 300 mg PO DAILY cap 09/04/19 [History Confirmed 09/04/19] PFSH Medical History Dyspnea on exertion (Acute) Chest pain (Chronic) Nonrheumatic mitral valve insufficiency (Chronic) Essential hypertension (Chronic) Hypokalemia (Chronic) Hyperlipidemia (Chronic) Hx of breast cancer (Chronic) Diverticulosis (Chronic) Abdominal pain (Resolved) Surgical History History of left heart catheterization (Chronic 08/16/19) History of carpal tunnel release of both wrists (Chronic) History of colonoscopy (Chronic ~11/2018) Hx of cholecystectomy (Chronic) Hx of eye surgery (Chronic) Hx of repair of right rotator cuff (Chronic) Hx of tubal ligation (Chronic) Family History Mother Diabetes Heart disease Hypertension CVA (cerebral vascular accident) Sister Hypertension Heart disease Brother Heart disease Hypertension Social History (Updated 09/04/19 @ 09:07 by Behzad Kelley MD) Smoking Status: Former smoker alcohol intake: current alcohol intake frequency: holidays/special occasions only substance use type: does not use caffeine: No what type of physical activity do you participate in: none frequency: does not exercise HPI HPI HPI: ALBERTO STRICKLAND is a 69 F who presents to the office today for HPI HPI Surgical H&P: Yes HPI: ALBERTO STRICKLAND is a 69 F who presents to the office today for Evaluation for an upper endoscopy. Patient has a rather long complicated history. with a history of hypertension, diverticulitis status post recent acute flare with colonoscopy on 11/28/2018 without evidence of perforation or mass. Patient was treated antibiotics. Patient is a former patient of Dr. Beka Kumar's, and on 03/13/2019 had complained of persistent exertional chest discomfort. Apparently she had a history of left heart catheterization on 01/04/2016, at the [facility] which showed angiographically normal left main, minimal irregularities in the LAD, left circumflex, and right coronary artery. No stenting was recommended at that time. She is unable to tolerate statin therapy due to intolerance. As part of her cardiac evaluation on 03/27/2019 she underwent a submaximal treadmill/MPI which was terminated due to chest pain and angina and her stress echocardiogram component was negative for ischemia. Patient only went about 5 METS, with 71% of target heart rate. Her transthoracic echo which took place on 04/03/2019 showed an EF of 65%, stage I diastolic dysfunction, normal RV size and function, RVSP estimated to be 31 mmHg, and 1-2+ mitral regurgitation. In addition a CT scan done on 04/17/2019 demonstrated a large retrocardiac hiatal hernia and apparently will require corrective surgery soon. On further history, the patient states that she has had exertional chest pain on and off for the past 10 to 12 years. More recently, her chest pain is accelerated and got worse while she is cutting her grass. Her chest pain always occurs with exertion, and was relieved with rest. She reports that she had chest pain during her most recent stress test, albeit at a submaximal heart rate. Most recent heart cath by Dr. Merritt showed no treatable vessel disease within the heart itself.She was taken off of her Plavix and is only on aspirin. Epigastric pain has been worsening over the last 2 weeks. She has noticed that her stools are soft and pasty like without discomfort and she has not had any black tarry stools. Patient has had an upper endoscopy by Dr. Parker 7 or 8 years ago in which the patient said that he found an ulcer. ROS General General: Yes fatigue and breast cancer; no weight change, appetite, colon cancer or weakness HEENT HEENT: Yes eye surgery; no difficulty swallowing, eye injury, swollen glands or hoarseness Endo Endocrine: Yes thyroid disease; no diabetes mellitus, thyroid cancer, Hair loss, heat intolerance or cold intolerance Musc Musculoskeletal: Yes back problems and arthritis; no rheumatoid arthritis, gout or joint pain Cardio Cardiovascular: Yes murmur, heart disease and high blood pressure; no pacemaker, atrial fibrillation, heart attack, heart stent, palpitations, shortness of breat with exertion or chest pain Resp Respiratory: Yes shortness of breath, No sleep apnea, No cough, No COPD, No asthma, No emphysema, No wheezing Gastro Gastrointestinal: Yes abdominal pain, No nausea or vomiting, Yes diarrhea, Yes constipation, No blood in stool, Yes acid reflux, Yes hemorrhoids, No ulcers, Yes gallbladder problem, No black,tarry stools Neuro Neurologic: No weakness Exam Const General: no acute distress, well developed, well hydrated Orientation: oriented to person, oriented to place, oriented to time [facility] Head: normocephalic, atraumatic Ears: external ears normal Mouth: moist mucous membranes Eyes Sclera: sclerae normal Pupils: normal by confrontation Neck Neck: no lymphadenopathy noted Neck mass: No Thyroid: thyroid normal, symmetrical Chest Chest palpation & inspection: normal inspection of the chest Resp Effort & Inspection: normal respiratory effort Auscultation: clear to auscultation bilaterally Percussion: percussion normal Cardio Rate: regular rate Rhythm: regular rhythm Heart Sounds: murmur GI Inspection: obesity Palpation: soft, no hepatosplenomegaly, no masses, nontender Rectal Exam: other Other: Rectal exam deferred. Extrem General: normal to inspection, no clubbing, cyanosis or edema Assessment & Plan Problems 1. Epigastric abdominal pain R10.13 2. Hiatal hernia K44.9 Plan I have discussed the above with the patient. I have offered the patient esophagogastroduodenoscopy for evaluation. I have explained the risks/benefits of the procedure and described the procedure. I have discussed the risks with the patient, including but not limited to: infection, bleeding, perforation of the GI tract requiring emergency surgery, inability to complete the procedure, injury to any internal organs, complications of anesthesia, etc. - the patient understands and agrees to proceed. I have answered all the patient's questions to the patient's satisfaction and the patient has no further questions. The patient has been given instructions for the colon cleansing preparation. Depending on how large this hiatal hernia is she is more likely needing to go to a tertiary referral center to have it repaired. Whether or not she is going to have a sigmoid resection in addition to the hiatal hernia repair I will leave up to the surgeons whomever she sees. Coding Level of Care Code Off vis,est,level 3 Diagnoses Epigastric abdominal pain R10.13 Hiatal hernia K44.9 09/04/19 0907 <Electronically signed by Behzad colvin MD> Date _ Behzad Kelley MD I have re-examined the patient. There are no clinical changes since date of exam.
[2019-09-16 09:41] VITALS: BP 127/68; PULSE 63; RESP 15; TEMP 36.7; O2SAT 96; BMI 32.7
[2019-09-16] MEDS: Lactated Ringers 1,000 ML 100 ML IV (09:47)
--- NOTE | 2019-09-16 10:30 | EGD_PTH ---
PATIENT: ALBERTO STRICKLAND LOC: EN U#:[id number] AGE/SX: 69/F ROOM: RE09/16/[address]: Dr. Behzad Kelley MD : 1950 BED: DIS: 09/16/2019 SPEC #: [id number] RECD: 09/16/19 11:09 STATUS: ASMITA JACOBO #: [id number] ROCÍO: 09/16/19 10:[address]: Behzad Kelley DEPT: SURGICAL PATHOLOGY RECD BY: Darnell Izquierdo ENTERED: 09/16/19 12:11 SP TYPE: EGD BIOPSY OTHR DR: Dr. Jason Parker III, MD Tissues: Gastric mucous membrane Procedures: Surgery Specimen Level IV HEADER OPERATION: [place] PRE-OP DIAGNOSIS: Throat and abdomen pain TISSUE SUBMITTED: Antrum biopsy for H. pylori and histo MICROSCOPIC DIAGNOSIS Gastric antrum, biopsy: Mild chronic gastritis. See comment. AM:stephanie 09/17/19 COMMENT The results of immunohistochemistry for Helicobacter pylori will be reported separately ([id number]). MICROSCOPIC DESCRIPTION Slides are reviewed. GROSS DESCRIPTION Received in fixative is one container labeled with the patient's name and designated antrum biopsy. The specimen consists of one irregular fragment of light almaguer soft tissue that measures 0.5 x 0.2 x 0.1 cm. The specimen is totally submitted in one cassette. / SJ:stephanie 09/16/19 TC:3 CPT: 29776
--- NOTE | 2019-09-16 10:30 | IMM_PTH ---
PATIENT: ALBERTO STRICKLAND LOC: EN U#:[id number] AGE/SX: 69/F ROOM: RE09/16/[address]: Dr. Behzad Kelley MD : 1950 BED: DIS: 09/16/2019 SPEC #: [id number] RECD: 09/16/19 13:05 STATUS: ASMITA REQ #: [id number] ROCÍO: 09/16/19 10:[address]: Behzad Kelley DEPT: IMMUNOHISTOCHEMISTRY RECD BY: Grisel Colon ENTERED: 09/16/19 13:06 SP TYPE: IMMUNO OTHR DR: Dr. Jason Parker III, MD Tissues: Stomach, NOS Procedures: H Pylori (initial) PHYSICIAN & INSTITUTION [place] [address] SPECIMEN INFORMATION: Tissue Source: Antrum biopsy Clinical Info: Throat and abdomen pain Specimen Number: [id number] CPT code: 24669 METHODOLOGY: Deparaffinized sections of prefer/formalin-fixed tissue or PAP/DQ stained slides are incubated with monoclonal/polyclonal antibodies/oligonucleotide probes. Localization is made via biotin free immunoperoxidase method. Appropriate controls are performed and reacted as expected. Results on target cell population are indicated in the following table: RESULTS: ANTIBODY / CLONE RESULT H Pylori (polyclonal) negative These tests were developed and their performance characteristics determined by [facility]. They may not have been cleared or approved by the U.S. Food and Drug Administration. The FDA has determined that such clearance or approval is not necessary. INTERPRETATION: Antrum biopsy: Negative for Helicobacter pylori organisms. AM:stephanie 09/17/19
[2019-09-16 10:38] VITALS: BP 127/68; BP 98/56; PULSE 63; RESP 16; TEMP 36.4; O2SAT 93
--- NOTE | 2019-09-16 10:39 | OP.EGD_ITS ---
Patient Name: Tashia Fernandez Procedure Date: 09/16/2019 10:20 AM Date of : 1950 Age: 69 Procedure: Upper GI endoscopy Indications: Epigastric abdominal pain, Hiatal hernia Providers: Behzad Kelley MD Referring MD: Jason Parker Iii Medicines: See the Anesthesia note for documentation of the administered medications Patient Profile: This is a 69 year old female. Refer to note in patient chart for documentation of history and physical. Complications: No immediate complications. Procedure: Pre-Anesthesia Assessment: - Prior to the procedure, a History and Physical was performed, and patient medications and allergies were reviewed. The patient's tolerance of previous anesthesia was also reviewed. The risks and benefits of the procedure and the sedation options and risks were discussed with the patient. All questions were answered, and informed consent was obtained. Prior Anticoagulants: The patient has taken aspirin, last dose was 7 days prior to procedure. ASA Grade Assessment: III - A patient with severe systemic disease. After reviewing the risks and benefits, the patient was deemed in satisfactory condition to undergo the procedure. After obtaining informed consent, the endoscope was passed under direct vision. Throughout the procedure, the patient's blood pressure, pulse, and oxygen saturations were monitored continuously. The gastroscope was introduced through the mouth, and advanced to the second part of duodenum. The upper GI endoscopy was accomplished without difficulty. The patient tolerated the procedure well. Scope In: 10:29:26 AM Scope Out: 10:32:35 AM Total Procedure Duration Time 0 hours 3 minutes 9 seconds Findings: The Z-line was regular and was found 34 cm from the incisors. No biopsies or other specimens were collected for this exam. The diaphragmatic hiatus was approximately at 41 cm. Localized minimal inflammation characterized by congestion (edema) was found in the prepyloric region of the stomach. Biopsies were taken with a cold forceps for Helicobacter pylori testing. The examined duodenum was normal. No biopsies or other specimens were collected for this exam. Impression: - Z-line regular, 34 cm from the incisors. No specimens collected. - Gastritis. Biopsied. - Normal examined duodenum. No specimens collected. Recommendation: - Discharge patient to home. - Resume previous diet. - Continue present medications. - Await pathology results. - Repeat upper endoscopy is not recommended for surveillance. - Return to my office in 1 week. Procedure Code(s): --- Professional --- 10117, Esophagogastroduodenoscopy, flexible, transoral; with biopsy, single or multiple Diagnosis Code(s): --- Professional --- K29.70, Gastritis, unspecified, without bleeding R10.13, Epigastric pain K44.9, Diaphragmatic hernia without obstruction or gangrene CPT copyright 2017 [employer]. All rights reserved. The codes documented in this report are preliminary and upon instructional systems design consultant review may be revised to meet current compliance requirements. MD Behzad Wisdom MD 09/16/2019 10:39:21 AM This report has been signed electronically. Number of Addenda: 0 Note Initiated On: 09/16/2019 10:20 AM
[2019-09-16 10:45] VITALS: BP 127/68; BP 95/51; PULSE 58; RESP 16; O2SAT 92
[2019-09-16 10:50] VITALS: BP 127/68; BP 98/56; PULSE 57; RESP 16; O2SAT 92
[2019-09-16 11:07] VITALS: BP 127/68; BP 99/51; PULSE 64; RESP 16; TEMP 36.2; O2SAT 92
[2019-09-16 11:25] VITALS: BP 127/68
== END 2019-09-16 11:27 | disposition home or self-care (01) ==
LOC: EN 09:15 → AC 09:16
PROVIDERS: Family Provider Family Medicine; PCP Family Medicine; Referring Provider Family Medicine; Visit Provider Surgery
PROC: 0DJ08ZZ Inspection of Upper Intestinal Tract, Via Natural or Artificial Opening Endoscopic (ICD-10-PCS; CPT 43235; principal; 2019-09-16 10:25)
DX: K29.50 Unspecified chronic gastritis without bleeding (principal); K57.30 Diverticulosis of large intestine without perforation or abscess without bleeding; K44.9 Diaphragmatic hernia without obstruction or gangrene; K21.9 Gastro-esophageal reflux disease without esophagitis; I10 Essential (primary) hypertension; E78.5 Hyperlipidemia, unspecified; Z85.3 Personal history of malignant neoplasm of breast; Z87.891 Personal history of nicotine dependence; E06.9 Thyroiditis, unspecified; Z79.82 Long term (current) use of aspirin; Z79.899 Other long term (current) drug therapy
CPT/HCPCS: 43239; 88305; 88342; J7120; J2405

== ENCOUNTER → 2020-01-03 | Outpatient (CLI) | payer MEDICARE, OTHER, SELFPAY ==
[2019-12-30 13:27] VITALS: BMI 32.5
[2020-01-03 10:20] LABS: AST(SGOT) 21 U/L (15-37); Alanine Aminotransfer ALT/SGPT 21 U/L (13-56); Albumin, Serum 3.6 g/dL (3.2-5.0); Alkaline Phosphatase 109 U/L (45-117); Bilirubin, Direct 0.12 mg/dL (0.00-0.30); Cholesterol 141 mg/dL (200); Globulin 3.7 g/dL (2.2-4.2); High Density Lipoprotein 54 mg/dL; Protein, Total 7.3 g/dL (6.4-8.2); Triglycerides 52 mg/dL; Very Low Density Lipoprotein 10 mg/dL (5-40)
== END | disposition home or self-care (01) ==
LOC: LAB 09:23
PROVIDERS: PCP Family Medicine; Referring Provider Internal Medicine Cardiovascular Disease; Visit Provider Internal Medicine Cardiovascular Disease
DX: E78.5 Hyperlipidemia, unspecified (principal)
CPT/HCPCS: 36415; 80061; 80076

== ENCOUNTER 2020-07-14 21:08 | Inpatient (IN) | payer MEDICARE, OTHER, SELFPAY ==
[2020-07-10 10:30] VITALS: BMI 32.6
[2020-07-14 21:09] VITALS: BP 172/80; PULSE 74; RESP 16; TEMP 36.4; O2SAT 98; BMI 32.6
--- NOTE | 2020-07-14 21:31 | CT_ITS ---
STUDY: CT ABDOMEN AND PELVIS WITH CONTRAST REASON FOR EXAM: Female, 70 years old. ABDOMEN PAIN,DIARRHEA AND Nausea, started ATB ON 07-09-20 FOR DIVERTICULITIS -- HX:BREAST CANCER,HTN,TETHERED SPINAL CORD T7,CHF -- SURGERY:CHOLECYSTECTOMY,TUBAL RADIATION DOSAGE (If Supplied By Facility): CTDIvol = ( 15.85 ) mGy, DLP = ( 1052.81 ) mGycm TECHNIQUE: Transaxial images were obtained from the dome of the diaphragm to the symphysis pubis without oral contrast. Oral and amp; IV Gastrografin and amp; 100mL Isovue-370 was administered. Sagittal and coronal images were reconstructed. Individualized dose optimization techniques were used for this CT. COMPARISON: October 07, 2018 CT abdomen and pelvis FINDINGS: The visualized lung bases are unremarkable. The visualized portions of the heart are within normal limits. There is decreased attenuation of the liver consistent with steatosis. Is mild intrahepatic stricture dilatation. The gallbladder is been removed. There are multiple benign calcified granulomata of the spleen. Normal pancreas. Normal bilateral adrenal glands. Normal right kidney. There is mild left pelviectasis similar to the prior study. There is a moderate hiatal hernia measuring 5.1 x 6.1 cm. Normal small intestine. There is inflammatory change in the distal descending colon associated with diverticula. There is a tortuous loop of bowel which contains inflamed diverticula over a segment of 78 cm. Best seen in image #52 of the coronal views and image #86 of the axial views. There is visualized inflammatory minimal fluid inflammation of the diverticula and a focal enlarged diverticula without visualized distention abscess collection or free air. The appendix is visualized and appears normal. There is trace calcification of the aorta. Normal inferior vena cava. Normal retroperitoneum. There is partial bladder prolapse. See image #81 of the sagittal views. The bladder extends anterior to the vagina below the level of the symphysis pubis. The bladder. The uterus is atrophied contains calcification likely compatible with the small fibroid. There is a small umbilical hernia containing fat. There are diffuse degenerative changes of the visualized lumbar spine. There is disc space narrowing L5-S1 with vacuum phenomenon. CT/Abdomen/Pelvis WITH Contrast IMPRESSION: Acute diverticulitis of the distal descending colon as detailed above. No visualized distant abscess or free air. Partial bladder prolapse. No evidence of appendicitis. Electronically Signed: Richelle Romero MD at 0:39 EDT Tel , Service support ,
--- NOTE | 2020-07-14 21:33 | ED.VIS.GEN ---
History of Present Illness Chief Complaint: Nausea/Vomiting/Diarrhea Detail of Chief Complaint: Diverticulitis Informant: Patient Onset: Days Context: Gradual Onset Current Severity: Moderate Maximum Severity: Moderate Narrative: Patient presents with continued abdominal pain from diverticulitis. She was diagnosed with diverticulitis clinically by her PCP on the third. She was given Cipro and Flagyl. She states in spite of this she has worsened pain and continues to have diarrhea. She does report chills but no fever. She is had nausea but no vomiting. She states this is her fifth flare of diverticulitis. - Past Medical History (1) Diverticulosis Status: Chronic (2) Essential hypertension Status: Chronic (3) Hx of breast cancer Status: Chronic (4) Hx of cholecystectomy Status: Chronic (5) Hyperlipidemia Status: Chronic Past Medical History - Allergies and Home Meds Allergies/Adverse Reactions: Allergies hydrochlorothiazide Allergy (Intermediate, Verified 07/14/20 21:09) rash lisinopril Adverse Reaction (Intermediate, Verified 07/14/20 21:09) cough atorvastatin [From Lipitor] Adverse Reaction (Unknown, Verified 07/14/20 21:09) unknown spironolactone Adverse Reaction (Unknown, Verified 07/14/20 21:09) unknown Beta-Blockers (Beta-Adrenergic Bloc Adverse Reaction (Verified 07/14/20 21:09) cough codeine Adverse Reaction (Verified 07/14/20 21:09) Intolerance perindopril [From Aceon] Adverse Reaction (Verified 07/14/20 21:09) rash,cough Primary Care Physician: Jason Parker III, MD [Primary Care Provider] - Prior records reviewed: Yes Smoking Status: Former smoker Review of Systems General: Reports: Chills. Denies: Fever Eyes: Denies: Visual changes - bilaterally ENT: Denies: Bilateral ear pain Cardiovascular: Denies: Chest pain Respiratory: Denies: Dyspnea, Cough Gastrointestinal: Reports: Abdominal pain, Nausea, Diarrhea. Denies: Vomiting Genitourinary: Denies: Dysuria Musculoskeletal: Denies: Extremity Pain Neurological: Denies: Headache Hematologic: Denies: Easy bruising, Easy bleeding Allergy: Denies: Uticaria Physical Exam Vital Signs/Narrative: Vital Signs Temp Pulse Resp BP Pulse Ox 07/14/20 21:09 97.5 F L 74 16 172/80 H 98 Inital Vital Signs reviewed: Yes General: Well nourished, Well developed Head: Normocephalic ENT: Moist mucous membranes Neck: Supple Cardiovascular: Regular rate, Regular rhythm Respiratory: No distress, CTA bilaterally Abdomen: Soft, Tender - Mild lower abdominal tenderness to palpation., Hypoactive bowel sounds. Negative for: Guarding, Rebound tenderness Extremities: Nontender Skin: Normal color Neurological: Alert, Oriented x3 Psychological: Normal affect Diagnostic/Tx/Re-eval Impressions Abdomen/Pelvis CT 07/14/20 21:31 IMPRESSION: Acute diverticulitis of the distal descending colon as detailed above. No visualized distant abscess or free air. Partial bladder prolapse. No evidence of appendicitis. Electronically Signed: Richelle Romero MD at 0:39 EDT Tel , Service support , 07/14/20 21:31 Abdomen/Pelvis WITH Contrast [CT] Stat Laboratory Results 07/14/20 07/14/20 07/14/20 21:25 22:07 22:07 WBC 10.9 RBC 4.13 L Hgb 12.1 Hct 36.2 L MCV 87.7 MCH 29.3 MCHC 33.4 RDW Std Deviation 37.4 RDW Coeff of Cami 11.6 Plt Count 361 MPV 9.5 Immature Gran % (Auto) 0.500 Neut % (Auto) 70.6 H Lymph % (Auto) 18.0 L [place] % (Auto) 8.1 Eos % (Auto) 2.0 Baso % (Auto) 0.8 Absolute Neuts (auto) 7.7 Absolute Lymphs (auto) 1.97 Nucleated RBC % 0 Sodium 129 L Potassium 4.1 Chloride 99 Carbon Dioxide 23.0 Anion Gap 7 BUN 16 Creatinine 1.36 H Estim Creat Clear Calc 28.22 Est GFR (MDRD) Af Amer 49 L Est GFR (MDRD) Non-Af 41 L BUN/Creatinine Ratio 11.8 Glucose 100 Calcium 8.8 Total Bilirubin 0.40 Direct Bilirubin 0.11 AST 31 ALT 21 Alkaline Phosphatase 113 Total Protein 7.7 Albumin 3.6 Globulin 4.1 Lipase 194 Urine Color Yellow Urine Clarity Clear Urine pH 7.0 Ur Specific [place] 1.005 Urine Protein Negative Urine Glucose (UA) Normal Urine Ketones Negative Urine Occult Blood Negative Urine Nitrite Negative Urine Bilirubin Negative Urine Urobilinogen Normal Ur Leukocyte Esterase Negative Urine RBC 0 SEEN Urine WBC 0 SEEN Ur Squamous Epith Cells 0 SEEN Urine Bacteria 0 SEEN Urine Mucus 0 SEEN - Medical Decision Making Patient was given fentanyl followed by a small dose of morphine for pain control. CT scan does confirm diverticulitis but no evidence of an abscess. She has been on oral antibiotics for 5 days without improvement of her symptoms. She will be admitted for IV antibiotics. She is given a dose of Zosyn here. ED Disposition - Plan for ED Patient: Disposition: Acute Care Hospital [facility] Diagnosis: Diverticulitis Referrals: Jason Parker III, MD [Primary Care Provider] -
[2020-07-14 22:10] LABS: Bacteria 0 SEEN /hpf (None Seen); Mucous, Urine 0 SEEN /hpf (<or=2+); Red Blood Cells-Urine 0 SEEN /hpf (0-5); Squamous Epithelial Cells - UA 0 SEEN /hpf (5-10); White Blood Cells 0 SEEN /hpf (0-5)
[2020-07-14 22:15] LABS: Absolute Lymphocyte Count 1.97 X10^3/uL (0.83-4.51); Absolute Neutrophil Count 7.7 X10^3/uL (2.0-7.7); Basophil# 0.09 X10^3/uL; Basophil% 0.8 % (0-1); Eosinophil# 0.22 X10^3/uL; Hematocrit 36.2 % (37-47); Hemoglobin 12.1 g/dL (12.0-15.0); Lymphocyte # 1.97 X10^3/ul (4.0); Mean Corp Hgb Conc 33.4 g/dL (32-36); Mean Corpuscular Hgb 29.3 pg (27.0-32.0); Mean Corpuscular Volume 87.7 fL (81-99); Mean Platelet Vol. 9.5 fl (6.2-12.0); Monocyte# 0.89 X10^3/uL; Monocyte% 8.1 % (0-10); NRBC Flagged by Analyzer 0 % (0-5); Neutrophil # 7.72 X10^3/uL (2.7-7.7); Neutrophil % 70.6 % (47-70); Platelet Count 361 K/mm3 (150-450); RBC Distribution Width CV 11.6 % (11.6-14.6); RBC Distribution Width SD 37.4 fl (35.1-43.9); Red Blood Count 4.13 M/mm3 (4.2-5.4); White Blood Count 10.9 K/mm3 (4.4-11.0)
[2020-07-14] MEDS: 0.9% Normal Saline 1,000 ML 150 ML IV (22:16)
[2020-07-14 22:28] LABS: Color, Urine Yellow (Yellow); Glucose, Dipstick Normal (Normal); Ketone-Dipstick Negative (Negative); Leukocyte Esterase-Dipstick Negative /ul (Negative); Nitrite-Dipstick Negative (Negative); Occult Blood-Urine Negative /ul (Negative); Protein-Dipstick Negative (Negative); Specific Gravity, Urine 1.005 (1.002-1.030); Urine Bilirubin Dipstick Negative (Negative); Urine Clarity Clear (Clear); Urine Urobilinogen Normal (Normal)
[2020-07-14 22:37] LABS: AST(SGOT) 31 U/L (15-37); Alanine Aminotransfer ALT/SGPT 21 U/L (13-56); Albumin, Serum 3.6 g/dL (3.2-5.0); Alkaline Phosphatase 113 U/L (45-117); Anion Gap 7 (5-15); BUN 16 mg/dL (7-18); BUN/Creat Ratio 11.8 RATIO (10-20); Bilirubin, Direct 0.11 mg/dL (0.00-0.30); Calcium,Total 8.8 mg/dL (8.5-10.1); Chloride 99 mmol/L (98-107); Creatinine, Serum 1.36 mg/dL (0.55-1.02); EST Glomerular Filtration Rate 41 mL/min (>60); Est Glom Filt Rate - Afr Amer 49 mL/min (>60); Estimated Creatinine Clearance 28.22 ml/min; Globulin 4.1 g/dL (2.2-4.2); Glucose 100 mg/dL (74-106); Lipase 194 U/L (73-393); Potassium 4.1 mmol/L (3.5-5.1); Protein, Total 7.7 g/dL (6.4-8.2); Sodium Level 129 mmol/L (136-145)
[2020-07-14] MEDS: fentaNYL 100 MCG/2 ML Ampul 25 MCG IV (23:24)
[2020-07-14 23:25] VITALS: BP 149/59; PULSE 71; RESP 14; O2SAT 97
[2020-07-15] VITALS (7 sets, daily range): BP systolic 122–154; BP diastolic 50–79; PULSE 60–64; RESP 15–18; TEMP 36.4–36.7; O2SAT 97–99; BMI 32.8
[2020-07-15] MEDS: Morphine 2 MG/ML Syringe IV ×4 (00:31→23:25)
--- NOTE | 2020-07-15 00:58 | PCM.HP.STD ---
Problem List (1) Diverticulitis Status: Acute (2) Hyponatremia Status: Acute (3) GERD (gastroesophageal reflux disease) Status: Chronic Qualifiers: Esophagitis presence: esophagitis presence not specified Qualified Code(s): K21.9 - Gastro-esophageal reflux disease without esophagitis (4) CKD (chronic kidney disease), stage III Status: Chronic (5) Essential hypertension Status: Chronic (6) Hyperlipidemia Status: Chronic Qualifiers: Hyperlipidemia type: unspecified Qualified Code(s): E78.5 - Hyperlipidemia, unspecified (7) Hx of breast cancer Status: Chronic (8) Former tobacco use Status: Chronic History of Present Illness Date of Admission: 07/15/20 Chief Complaint: Abdominal pain, diarrhea, recent diverticulitis treatment start The patient is a 70 y/o F w/ PMHx: CKD stage III, HTN, HLD, Hx Breast CA, Obesity, Former Tobacco use, GERD w/ Hx Hiatal Hernia, Hx Diverticulitis who presents to the [facility] ED on 07/15/20 with history of recent initial onset left lower quadrant cramping abdominal discomfort with onset loose stools approximately 6-8 times per day with nausea without emesis starting on 07/06/2020 progressively worsening with PCP initiation of ciprofloxacin and Flagyl for suspected acute diverticulitis with progressive change of abdominal pain from cramping abdominal to sharp stabbing constant transitioning from left lower quadrant to periumbilical and eventual inclusion of bilateral lower quadrants with onset of chills without fevers, ongoing nausea without emesis, poor oral intake tolerance and ongoing loose stools of at least 6-8 times per day noting stools have become black in appearance but not specifically tarry. Patient denies any lightheadedness or dizziness. She has per report had 5 episodes of diverticulitis and follows w/ Dr. Kelley and has been reticent in the past to have removal of this section however upon discussion today given ongoing issues she notes intention to review this possibility with him. Patient notes that despite ED pain regimen she is still having ongoing pain and currently rates pain 7-8 out of 10 in severity. Work-up in the ED included T 97.5, heart rate 74, BP initially 172/80 with repeat 149/59, respiratory rate 16, 98% on room air, CBC with WBC 10.9, hemoglobin 12.1, platelets 361 with no significant shift, CMP with sodium 129, BUN/creatinine 16/1.36 otherwise unremarkable, lipase 194, urinalysis not marked appearing, CT abdomen and pelvis with acute diverticulitis of the distal descending colon with no visualized distant abscess or free air, partially prolapsed bladder, no evidence of appendicitis. In the ED patient ministered morphine 2 mg IV x1, fentanyl 25 mcg IV x1, normal saline as well as Zosyn therapy. Past Medical History Past Medical History (Chronic Problems): Chronic Problems (Last Reviewed 07/10/20 @ 10:37 by Cherise Martínez) GERD (gastroesophageal reflux disease) (Chronic) CKD (chronic kidney disease), stage III (Chronic) Former tobacco use (Chronic) Diverticulosis (Chronic) Hx of cholecystectomy (Chronic) History of carpal tunnel release of both wrists (Chronic) Hx of tubal ligation (Chronic) Hx of eye surgery (Chronic) Hx of repair of right rotator cuff (Chronic) History of colonoscopy (Chronic ~11/2018) Dyspnea on exertion (Chronic) Chest pain (Chronic) Nonrheumatic mitral valve insufficiency (Chronic) mild (1-2+) per echo 04/03/2019 History of left heart catheterization (Chronic 08/16/19) Normal coronaries per Dr. Erich [facility] 01/04/2016 Normal LV size, wall motion,and systolic function; Preserved Left Ventricular systolic function with normal EDP; Normal coronary arteries; The patient has normal pulmonary hemodynamics. 08/16/[address] Merritt @ [facility] Essential hypertension (Chronic) Hypokalemia (Chronic) Hyperlipidemia (Chronic) Hx of breast cancer (Chronic) Medical History: Medical History (Last Reviewed 07/10/20 @ 10:37 by Cherise Martínez) Diverticulosis (Chronic) K57.90 Dyspnea on exertion (Chronic) R06.09 Chest pain (Chronic) R07.9 Nonrheumatic mitral valve insufficiency (Chronic) I34.0 mild (1-2+) per echo 04/03/2019 Essential hypertension (Chronic) I10 Hypokalemia (Chronic) E87.6 Hyperlipidemia (Chronic) E78.5 Hx of breast cancer (Chronic) Z85.3 Abdominal pain (Resolved) R10.9 Allergies hydrochlorothiazide Allergy (Intermediate, Verified 07/14/20 21:09) rash lisinopril Adverse Reaction (Intermediate, Verified 07/14/20 21:09) cough atorvastatin [From Lipitor] Adverse Reaction (Unknown, Verified 07/14/20 21:09) unknown spironolactone Adverse Reaction (Unknown, Verified 07/14/20 21:09) unknown Beta-Blockers (Beta-Adrenergic Bloc Adverse Reaction (Verified 07/14/20 21:09) cough codeine Adverse Reaction (Verified 07/14/20 21:09) Intolerance perindopril [From Aceon] Adverse Reaction (Verified 07/14/20 21:09) rash,cough Home Medications: Ambulatory Orders Medication Instructions Recorded Aspirin [Aspirin, Baby] 81 mg PO DAILY@0800 01/01/14 Levothyroxine [Synthroid] 88 mcg PO DAILY 01/01/14 Losartan Potassium [Cozaar] 100 mg PO DAILY 01/01/14 Potassium Chloride [K-Dur] 20 meq PO 4X/DAY 01/01/14 Amlodipine [Norvasc] 5 mg PO QHS 01/25/18 Furosemide [Lasix] 20 mg PO BID 01/25/18 Isosorbide Mononitrate [Isosorbide 15 mg PO DAILY 01/25/18 Mononitrate ER] Labetalol [Trandate (Beta Dipak)] 100 mg PO BID 01/25/18 Pantoprazole Sodium [Protonix] 40 mg PO DAILY 01/25/18 Biotin 1 mg PO DAILY 07/06/18 gemfibrozil 600 mg tablet 600 mg PO BID #60 tab 07/01/19 meclizine 25 mg tablet 25 mg PO DAILY PRN 07/01/19 gabapentin 300 mg capsule 300 mg PO DAILY cap 09/04/19 Surgical History: Surgical History (Last Reviewed 07/10/20 @ 10:37 by Cherise Martínez) Hx of esophagogastroduodenoscopy (Resolved) Z98.890 09/16/19 Hx of cholecystectomy (Chronic) Z90.49 History of carpal tunnel release of both wrists (Chronic) Z98.890 Hx of tubal ligation (Chronic) Z98.51 Hx of eye surgery (Chronic) Z98.890 Hx of repair of right rotator cuff (Chronic) Z98.890 History of colonoscopy (Chronic) Onset Date: ~11/2018 Z98.890 History of left heart catheterization (Chronic) Onset Date: 08/16/19 Z98.890 Normal [address]aries per Dr[address] Erich [facility] 01/04/2016 Normal LV size, wall motion,and systolic function; Preserved Left Ventricular systolic function with normal EDP; Normal coronary arteries; The patient has normal pulmonary hemodynamics. 08/16/[address] Merritt @ [facility] Surgical History: - - Right rotator cuff surgery, bilateral tubal ligation, cholecystectomy, bilateral carpal tunnel surgery, eye surgery. 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 Smoking Status: Former smoker - Patient quit cigarette tobacco usage greater than 30 years prior with prior to this light smoking possibly 1/2 pack lasting her 1 week at a time, started in youth. Tobacco Use: Non-smoker Alcohol: None Drugs: None - *Family History Maternal Family History: Family History (Last Reviewed 07/10/20 @ 10:37 by Cherise Martínez) Mother Diabetes Heart disease Hypertension CVA (cerebral vascular accident) Sister Hypertension Heart disease Brother Heart disease Hypertension History Items: Diabetes, High Cholesterol, Heart Disease, Hypertension, Stroke Paternal Family History: Family History (Last Reviewed 07/10/20 @ 10:37 by Cherise Martínez) Mother Diabetes Heart disease Hypertension CVA (cerebral vascular accident) Sister Hypertension Heart disease Brother Heart disease Hypertension History Items: - - Patient at age 54 secondary to accident, patient denies any market history prior to this including heart disease, diabetes, cancer. Review of Systems Constitutional: Reports: Anorexia, Chills, Malaise, Weakness, Fatigue. Denies: Fever, Weight Change HEENT: Denies: Head Aches, Sinus Congestion, Sinus Drainage Cardiovascular: Denies: Chest Pain, Palpitations Respiratory: Denies: Cough, Shortness of breath at rest, Sputum production Gastrointestinal: Reports: Abdominal Pain, Diarrhea, Nausea, - - Black appearing stool.. Denies: Vomiting Genitourinary: Denies: Dysuria Musculoskeletal: Denies: Joint Pain, Joint Tenderness Skin: Denies: Rash, Wounds Neurological: Denies: Numbness, Tingling, Focal weakness Psychiatric: Denies: Anxiety, Depression, Homicidal Ideations, Suicidal Ideations Hematologic/ Lymphatic: Denies: Easy Bruising, Easy Bleeding VTE Information - Inpt Only VTE Present on Admission: No VTE Mechan Device Prophylaxis: SCD's VTE Pharm Prophylaxis ordered?: No Reason prophylaxis not ordered:: Medical Contraindication - Hold given noted black appearing stools. Patient Problems: Active and Suspected Problems (Last Reviewed 07/10/20 @ 10:37 by Cherise Martínez) Diverticulitis (Acute) Hyponatremia (Acute) Subjective: Patient laying in the ED bed, fatigued appearance, uncomfortable with movement and with palpation during examination. Objective: Physical Examination: General: awake, alert, oriented x 3 and cooperative, seated upright in the ED bed, uncomfortable appearing. Skin: normal color, turgor, no icterus, cyanosis. HEENT: AT/NC, EOMI, PERRLA, dry MM, no carotid bruits or JVD noted. Lungs: CTA bilaterally, moderate effort, mild decrease BL bases, no rales, ronchi or wheezing. Heart: Regular rate and rhythm; no gallop, rub audible. Abdomen: soft, discomfort with palpation of bilateral lower quadrants, left greater than right, some voluntary guarding, no specific or rebound but severely uncomfortable, difficult to assess distention, hyperactive bowel sounds, difficult to assess HSM secondary to abdominal discomfort. Extremities: no cyanosis, clubbing, or edema. Neurological: patient awake, alert, oriented x 3; cognitive function intact; pupils equally reactive to light and accomodation; cranial nerves II-XII grossly normal, moving all 4 extremities, no focal deficits, strength moderately global decrease secondary to acute presentation. Psychiatric: affect appears fatigued, uncomfortable, no acute evidence of depressive or anxiety feelings. - Physical Exam Vitals/I&O's: Vital Signs Temp Pulse Resp BP Pulse Ox 97.5 F L 71 14 149/59 H 97 07/14/20 21:09 07/14/20 23:25 07/14/20 23:25 07/14/20 23:25 07/14/20 23:25 Oxygen Delivery Method Room Air Weight: 173 lb Body Mass Index (BMI) 32.6 Laboratory Results 07/14/20 21:25: Urine Color Yellow, Urine Clarity Clear, Urine pH 7.0, Ur Specific [place] 1.005, Urine Protein Negative, Urine Glucose (UA) Normal, Urine Ketones Negative, Urine Occult Blood Negative, Urine Nitrite Negative, Urine Bilirubin Negative, Urine Urobilinogen Normal, Ur Leukocyte Esterase Negative, Urine RBC 0 SEEN, Urine WBC 0 SEEN, Ur Squamous Epith Cells 0 SEEN, Urine Bacteria 0 SEEN, Urine Mucus 0 SEEN 07/14/20 22:07: WBC 10.9, RBC 4.13 L, Hgb 12.1, Hct 36.2 L, MCV 87.7, MCH 29.3, MCHC 33.4, RDW Std Deviation 37.4, RDW Coeff of Cami 11.6, Plt Count 361, MPV 9.5, Immature Gran % (Auto) 0.500, Neut % (Auto) 70.6 H, Lymph % (Auto) 18.0 L, [place] % (Auto) 8.1, Eos % (Auto) 2.0, Baso % (Auto) 0.8, Absolute Neuts (auto) 7.7, Absolute Lymphs (auto) 1.97, Nucleated RBC % 0 07/14/20 22:07: Sodium 129 L, Potassium 4.1, Chloride 99, Carbon Dioxide 23.0, Anion Gap 7, BUN 16, Creatinine 1.36 H, Estim Creat Clear Calc 28.22, Est GFR (MDRD) Af Amer 49 L, Est GFR (MDRD) Non-Af 41 L, BUN/Creatinine Ratio 11.8, Glucose 100, Calcium 8.8, Total Bilirubin 0.40, Direct Bilirubin 0.11, AST 31, ALT 21, Alkaline Phosphatase 113, Total Protein 7.7, Albumin 3.6, Globulin 4.1, Lipase 194 Current Medications Sodium Chloride () 1,000 mls @ 150 mls/hr IV .Q6H40M MICHAEL Last Admin: 07/14/20 22:16 Dose: 150 mls/hr Documented by: Piperacillin Sod/Tazobactam (Sod 4.5 gm/ Sodium Chloride) 100 mls @ 200 mls/hr IV X1 ONE Stop: 07/15/20 01:10 Assessment/Plan All Active Problems (Last Reviewed 07/10/20 @ 10:37 by Cherise Martínez) Diverticulitis (Acute) Hyponatremia (Acute) Hx of esophagogastroduodenoscopy (Resolved) Abdominal pain (Resolved) The patient is a 70 y/o F w/ PMHx: CKD stage III, HTN, HLD, Hx Breast CA, Obesity, Former Tobacco use, GERD w/ Hx Hiatal Hernia, Hx Diverticulitis who presents to the [facility] ED on 07/15/20 with history of recent initial onset left lower quadrant cramping abdominal discomfort with onset loose stools approximately 6-8 times per day with nausea without emesis starting on 07/06/2020 progressively worsening with PCP initiation of ciprofloxacin and Flagyl for suspected acute diverticulitis. 1. Acute Distal Descending Diverticulitis, Failed outpatient management with intractable abdominal pain: CT abdomen and pelvis with acute diverticulitis of the distal descending colon with no visualized distant abscess or free air. Will admit to [facility], maintain on hydration, monitor I&Os, maintain NPO status w/ bowel rest, treat with zosyn regimen, IV protonix, anti-emetics, pain regimen PRN. Consider diet advancement to clears in AM if clinically improved. Given ongoing serial bouts will consult patient Surgeon Dr. Kelley as patient now seems amenable to resection once appropriate. Also questionable diverticular bleeding associated given black stools, continued on IV Protonix as noted, will obtain guaiac, hold aspirin therapy and defer chemoprophylaxis. 2. Acute hyponatremia, hypovolemic secondary to GI losses secondary to #1: Admission sodium 129, continue judicious hydration, hold diuretics temporarily, repeat BMP in AM. 3. Chronic Kidney Disease Stage III: Admission BUN/Cr 18/1.36, baseline renal function 1.0-1.2, mildly increased from prior, holding diuretic given hyponatremia with GI losses, if necessary may also hold losartan if worsening renal function, repeat BMP in AM. 4. Hypertension: Continue home regimen including Norvasc, labetalol, isosorbide, losartan with hold parameters, PRN hydralazine. 5. Hyperlipidemia: We will hold patient gemfibrozil regimen, resume once oral intake continued. 6. Hypothyroidism: Continue home synthroid regimen. 7. GERD w/ Hx Hiatal Hernia: We will maintain on IV Protonix. 8. Former tobacco use: Encourage continued tobacco cessation. 9. DVT Prophylaxis: SCDs, will defer chemoprophylaxis given complaint of black appearing stools. 10. CODE status: Patient JODIE is her daughter and living will is currently in place. Discussed CODE status at length including difference between FULL code, DNR-CCA and DNR-CC status. Following discussions about the differences in these status, requested full CODE STATUS. Advanced Care Planning Face to Face Time: 16 minutes. Inpatient E&M: 95734 Init Hosp L3 Procedures: 13974 Advncd Care Plan 30 Min
[2020-07-15] MEDS: 0.9% Normal Saline 1,000 ML 125 ML IV ×3 (02:25→19:33)
[2020-07-15] MEDS: Levothyroxine 88 MCG Tablet PO (06:07)
[2020-07-15 06:52] LABS: Absolute Lymphocyte Count 2.06 X10^3/uL (0.83-4.51); Absolute Neutrophil Count 5.4 X10^3/uL (2.0-7.7); Basophil# 0.08 X10^3/uL; Basophil% 0.9 % (0-1); Eosinophil# 0.32 X10^3/uL; Eosinophils% 3.6 % (0-5); Hematocrit 32.6 % (37-47); Hemoglobin 10.6 g/dL (12.0-15.0); Lymphocyte # 2.06 X10^3/ul (4.0); Lymphocyte % 23.1 % (19-41); Mean Corp Hgb Conc 32.5 g/dL (32-36); Mean Corpuscular Hgb 28.5 pg (27.0-32.0); Mean Corpuscular Volume 87.6 fL (81-99); Mean Platelet Vol. 9.6 fl (6.2-12.0); Monocyte# 1.06 X10^3/uL; Monocyte% 11.9 % (0-10); NRBC Flagged by Analyzer 0 % (0-5); Neutrophil # 5.36 X10^3/uL (2.7-7.7); Neutrophil % 60.3 % (47-70); Platelet Count 376 K/mm3 (150-450); RBC Distribution Width CV 11.8 % (11.6-14.6); RBC Distribution Width SD 37.8 fl (35.1-43.9); Red Blood Count 3.72 M/mm3 (4.2-5.4); White Blood Count 8.9 K/mm3 (4.4-11.0)
[2020-07-15 07:30] LABS: ALB/GLOB Ratio 0.9 RATIO (0.9-2.4); AST(SGOT) 24 U/L (15-37); Alanine Aminotransfer ALT/SGPT 19 U/L (13-56); Albumin, Serum 3.2 g/dL (3.2-5.0); Alkaline Phosphatase 97 U/L (45-117); Anion Gap 5 (5-15); BUN 13 mg/dL (7-18); BUN/Creat Ratio 10.2 RATIO (10-20); Calcium,Total 8.2 mg/dL (8.5-10.1); Chloride 102 mmol/L (98-107); Creatinine, Serum 1.28 mg/dL (0.55-1.02); EST Glomerular Filtration Rate 44 mL/min (>60); Est Glom Filt Rate - Afr Amer 53 mL/min (>60); Estimated Creatinine Clearance 29.98 ml/min; Globulin 3.6 g/dL (2.2-4.2); Glucose 96 mg/dL (74-106); Potassium 3.5 mmol/L (3.5-5.1); Protein, Total 6.8 g/dL (6.4-8.2); Sodium Level 134 mmol/L (136-145)
[2020-07-15] MEDS: 0.9% Saline Lock 10 ML Syringe IV ×3 (08:22→23:25)
[2020-07-15] MEDS: Labetalol 100 MG Tablet PO ×2 (08:26→18:21)
[2020-07-15] MEDS: Gabapentin 300 MG Capsule PO (08:27)
[2020-07-15] MEDS: Losartan Potassium 100 MG Tablet PO (08:27)
[2020-07-15] MEDS: Isosorbide Mononitrate 30 MG Tablet 15 MG PO (08:30)
--- NOTE | 2020-07-15 10:27 | PN_ITS ---
Patient Problems: Active and Suspected Problems (Last Reviewed 07/10/20 @ 10:37 by Cherise Martínez) Diverticulitis (Acute) Hyponatremia (Acute) Subjective: Patient seen and examined. He was admitted with a complaint of abdominal pain and found to have right acute diverticulitis. She is currently on IV Zosyn. Pain is much better today. She denies any nausea, vomiting, fever or chills. Review of systems otherwise negative. Patient had previously not been amenable to bowel resection for diverticulitis but she is now open to this. General surgery consulted. WBC is 8.9 and sodium has come up to 134 from 129 on admission. She has remained hemodynamically stable. Vitals/I&O's: Vital Signs Temp Pulse Resp BP Pulse Ox 97.9 F 60 18 138/51 H 97 07/15/20 08:18 07/15/20 08:18 07/15/20 08:41 07/15/20 08:18 07/15/20 08:18 Oxygen Delivery Method Room Air Weight: 173 lb 8.061 oz Body Mass Index (BMI) 32.8 Intake and Output for Last 24 Hours 07/13/20 07/14/20 07/15/20 23:59 23:59 23:59 Intake Total 635 / 635 Output Total 650 / 650 Balance -15 / -15 General: Alert, Oriented x3, Cooperative, No apparent distress HEENT: Atraumatic, PERRLA, EOMI, Normocephalic Oral: Moist Mucosa Neck: Supple, No JVD, Negative Carotid Bruits Lungs: Clear to auscultation, Normal air movement, No rhonchi, No wheeze, No rales Cardiovascular: Regular rate, Regular Rhythm, Normal S1, Normal S2, No murmurs Abdomen: Bowel Sounds Present, Soft, - - mild right lower quadrant tenderness, no guarding or rebound tenderness. Extremities: No clubbing, No cyanosis, No edema, Capillary Refill Less than 3 Seconds Skin: No rashes, No breakdown Musculoskeletal: No Tenderness to Palpation of Joints or Extremities Lymphatic: No Cervical, Supraclavicular, or Inguinal Adenopathy Neurological: Cranial nerves II-XII grossly intact, Neuro grossly intact, Motor Exam 5/5 strength throughout Psych/Mental Status: Normal Affect, Appropriate, Alert and oriented to time, place, person, mood and affect Laboratory Results 07/14/20 21:25: Urine Color Yellow, Urine Clarity Clear, Urine pH 7.0, Ur Specific [place] 1.005, Urine Protein Negative, Urine Glucose (UA) Normal, Urine Ketones Negative, Urine Occult Blood Negative, Urine Nitrite Negative, Urine Bilirubin Negative, Urine Urobilinogen Normal, Ur Leukocyte Esterase Negative, Urine RBC 0 SEEN, Urine WBC 0 SEEN, Ur Squamous Epith Cells 0 SEEN, Urine Bacteria 0 SEEN, Urine Mucus 0 SEEN 07/14/20 22:07: WBC 10.9, RBC 4.13 L, Hgb 12.1, Hct 36.2 L, MCV 87.7, MCH 29.3, MCHC 33.4, RDW Std Deviation 37.4, RDW Coeff of Cami 11.6, Plt Count 361, MPV 9.5, Immature Gran % (Auto) 0.500, Neut % (Auto) 70.6 H, Lymph % (Auto) 18.0 L, [place] % (Auto) 8.1, Eos % (Auto) 2.0, Baso % (Auto) 0.8, Absolute Neuts (auto) 7.7, Absolute Lymphs (auto) 1.97, Nucleated RBC % 0 07/14/20 22:07: Sodium 129 L, Potassium 4.1, Chloride 99, Carbon Dioxide 23.0, Anion Gap 7, BUN 16, Creatinine 1.36 H, Estim Creat Clear Calc 28.22, Est GFR (MDRD) Af Amer 49 L, Est GFR (MDRD) Non-Af 41 L, BUN/Creatinine Ratio 11.8, Glucose 100, Calcium 8.8, Total Bilirubin 0.40, Direct Bilirubin 0.11, AST 31, ALT 21, Alkaline Phosphatase 113, Total Protein 7.7, Albumin 3.6, Globulin 4.1, Lipase 194 07/15/20 06:20: WBC 8.9, RBC 3.72 L, Hgb 10.6 L, Hct 32.6 L, MCV 87.6, MCH 28.5, MCHC 32.5, RDW Std Deviation 37.8, RDW Coeff of Cami 11.8, Plt Count 376, MPV 9.6, Immature Gran % (Auto) 0.200, Neut % (Auto) 60.3, Lymph % (Auto) 23.1, [place] % (Auto) 11.9 H, Eos % (Auto) 3.6, Baso % (Auto) 0.9, Absolute Neuts (auto) 5.4, Absolute Lymphs (auto) 2.06, Nucleated RBC % 0 07/15/20 06:20: Sodium 134 L, Potassium 3.5, Chloride 102, Carbon Dioxide 27.0, Anion Gap 5, BUN 13, Creatinine 1.28 H, Estim Creat Clear Calc 29.98, Est GFR (MDRD) Af Amer 53 L, Est GFR (MDRD) Non-Af 44 L, BUN/Creatinine Ratio 10.2, Glucose 96, Calcium 8.2 L, Total Bilirubin 0.50, AST 24, ALT 19, Alkaline P hosphatase 97, Total Protein 6.8, Albumin 3.2, Globulin 3.6, Albumin/Globulin Ratio 0.9 Diagnostic Data Abdomen/Pelvis CT 07/14/20 21:31 IMPRESSION: Acute diverticulitis of the distal descending colon as detailed above. No visualized distant abscess or free air. Partial bladder prolapse. No evidence of appendicitis. Electronically Signed: Richelle Romero MD at 0:39 EDT Tel , Service support , Current Medications Acetaminophen (Tylenol) 650 mg PO Q6H PRN PRN PRN Reason: Pain Score 1-10/Temp > 100.7 F Al Hydroxide/Mg Hydroxide (Mylanta Ii) 30 ml PO Q6H PRN PRN PRN Reason: Gastric Burning Albuterol Sulfate (Ventolin Aerosols) 2.5 mg INHALATION Q2H PRN PRN PRN Reason: Dyspnea, wheezing Amlodipine Besylate (Norvasc) 5 mg PO QHS [facility] Gabapentin (Neurontin) 300 mg PO DAILY [facility] Last Admin: 07/15/20 08:27 Dose: 300 mg Documented by: Guaifenesin (Robitussin) 20 ml PO Q4H PRN PRN PRN Reason: COUGH Hydralazine HCl (Apresoline Iv) 10 mg IV Q4H PRN PRN PRN Reason: SBP > 160 Sodium Chloride () 1,000 mls @ 125 mls/hr IV .Q8H [facility] Last Admin: 07/15/20 02:25 Dose: 125 mls/hr Documented by: Pantoprazole Sodium 40 mg/ (Sodium Chloride) 110 mls @ 330 mls/hr IV Q12 [facility] Last Infusion: 07/15/20 03:00 Dose: Infused Documented by: Piperacillin Sod/Tazobactam (Sod 3.375 gm/ Sodium Chloride) 50 mls @ 12.5 mls/hr IV Q8 [facility] Last Admin: 07/15/20 06:01 Dose: 12.5 mls/hr Documented by: Isosorbide Mononitrate (Imdur) 15 mg PO DAILY [facility] Last Admin: 07/15/20 08:30 Dose: 15 mg Documented by: Labetalol HCl (Trandate) 100 mg PO BIDCM [facility] Last Admin: 07/15/20 08:26 Dose: 100 mg Documented by: Levothyroxine Sodium (Synthroid) 88 mcg PO DAILY@0600 [facility] Last Admin: 07/15/20 06:07 Dose: 88 mcg Documented by: Losartan Potassium (Cozaar) 100 mg PO DAILY [facility] Last Admin: 07/15/20 08:27 Dose: 100 mg Documented by: Melatonin (Melatonin) 3 mg PO QHS PRN PRN PRN Reason: INSOMNIA Morphine Sulfate () 2 mg IV Q3H PRN PRN PRN Reason: Pain Score 6-10/10 Last Admin: 07/15/20 08:22 Dose: 2 mg Documented by: Ondansetron HCl (Zofran) 4 mg IV Q8H PRN PRN PRN Reason: NAUSEA/VOMITING Oxycodone HCl (Oxyir) 5 mg PO Q4H PRN PRN PRN Reason: Pain Score 4-5/10 Potassium Chloride (K-Dur) [facility] Last Admin: 07/15/20 08:26 Dose: 20 meq Documented by: Prochlorperazine Edisylate (Compazine Iv) 5 mg IV Q4H PRN PRN PRN Reason: Breakthrough nausea/vomiting Sodium Chloride () 10 - 40 ml IV UD PRN PRN Reason: SALINE FLUSH Last Admin: 07/15/20 08:22 Dose: 10 ml Documented by: Throat Lozenges (Cepacol Sore Throat Lozenge) 1 lozenge MUCOUS MEM Q2H PRN PRN PRN Reason: SORE THROAT STROKE Vital Signs/Narrative: Vital Signs Temp Pulse Resp BP Pulse Ox 07/15/20 08:41 18 07/15/20 08:18 97.9 F 60 18 138/51 H 97 07/15/20 07:11 97 Medical Necessity - Tobacco Use Smoking Status: Former smoker - Patient quit cigarette tobacco usage greater than 30 years prior with prior to this light smoking possibly 1/2 pack lasting her 1 week at a time, started in youth. Tobacco Use: Non-smoker Assessment/Plan All Active Problems (Last Reviewed 07/10/20 @ 10:37 by Cherise Martínez) Diverticulitis (Acute) Hyponatremia (Acute) Hx of esophagogastroduodenoscopy (Resolved) Abdominal pain (Resolved) # acute diverticulitis * failed outpatient therapy * CT of the abdomen showed acute diverticulitis of the distal, descending colon * on IV zosyn. Pain is much better today * continue hydrating gently with IVF. await general surgery evaluation # Acute hyponatremia; resolving. sodium is up to 134 today from 129. continue gentle hydration with IVF # CKD 3: stable. #Hypertension: On Norvasc, Imdur, losartan and labetalol. IV hydralazine as needed. #Hyperlipidemia: On gemfibrozil #Hypothyroidism: On Synthroid #GERD: Also has a history of hiatal hernia. On Protonix. DVT prophylaxis: SCDs Inpatient E&M: 72509 Subs Hosp L2
--- NOTE | 2020-07-15 11:21 | CON.PCM_ITS ---
Problem List (1) Diverticulitis Status: Acute Reason for Consult Date of Consultation: 07/15/20 History of Present Illness: The patient is a 70 y/o F w/ PMHx: CKD stage III, HTN, HLD, Hx Breast CA, Obesity, Former Tobacco use, GERD w/ Hx Hiatal Hernia, Hx Diverticulitis who presents to the [facility] ED on 07/15/20 with history of recent initial onset left lower quadrant cramping abdominal discomfort with onset loose stools approximately 6-8 times per day with nausea without emesis starting on 07/06/2020 progressively worsening with PCP initiation of ciprofloxacin and Flagyl for suspected acute diverticulitis with progressive change of abdominal pain from cramping abdominal to sharp stabbing constant transitioning from left lower quadrant to periumbilical and eventual inclusion of bilateral lower quadrants with onset of chills without fevers, ongoing nausea without emesis, poor oral intake tolerance and ongoing loose stools of at least 6-8 times per day noting stools have become black in appearance but not specifically tarry. Patient denies any lightheaded ness or dizziness. She has per report had 5 episodes of diverticulitis and follows w/ me and has been reticent in the past to have removal of this section however upon discussion today given ongoing issues she notes intention to review this possibility with me. Patient notes that despite ED pain regimen she is still having ongoing pain and currently rates pain 7-8 out of 10 in severity. Work-up in the ED included T 97.5, heart rate 74, BP initially 172/80 with repeat 149/59, respiratory rate 16, 98% on room air, CBC with WBC 10.9, hemoglobin 12.1, platelets 361 with no significant shift, CMP with sodium 129, BUN/creatinine 16/1.36 otherwise unremarkable, lipase 194, urinalysis not marked appearing, CT abdomen and pelvis with acute diverticulitis of the distal descending colon with no visualized distant abscess or free air, partially prolapsed bladder, no evidence of appendicitis. In the ED patient ministered morphine 2 mg IV x1, fentanyl 25 mcg IV x1, normal saline as well as Zosyn therapy. Past Medical History Past Medical History (Chronic Problems): Chronic Problems (Last Reviewed 07/10/20 @ 10:37 by Cherise Martínez) GERD (gastroesophageal reflux disease) (Chronic) CKD (chronic kidney disease), stage III (Chronic) Former tobacco use (Chronic) Diverticulosis (Chronic) Hx of cholecystectomy (Chronic) History of carpal tunnel release of both wrists (Chronic) Hx of tubal ligation (Chronic) Hx of eye surgery (Chronic) Hx of repair of right rotator cuff (Chronic) History of colonoscopy (Chronic ~11/2018) Dyspnea on exertion (Chronic) Chest pain (Chronic) Nonrheumatic mitral valve insufficiency (Chronic) mild (1-2+) per echo 04/03/2019 History of left heart catheterization (Chronic 08/16/19) Normal coronaries per Dr. Erich [facility] 01/04/2016 Normal LV size, wall motion,and systolic function; Preserved Left Ventricular systolic function with normal EDP; Normal coronary arteries; The patient has normal pulmonary hemodynamics. 08/16/[address] Merritt @ [facility] Essential hypertension (Chronic) Hypokalemia (Chronic) Hyperlipidemia (Chronic) Hx of breast cancer (Chronic) Medical History: Medical History (Last Reviewed 07/15/20 @ 11:[address] Behzad Kelley MD) Diverticulosis (Chronic) K57.90 Dyspnea on exertion (Chronic) R06.09 Chest pain (Chronic) R07.9 Nonrheumatic mitral valve insufficiency (Chronic) I34.0 mild (1-2+) per echo 04/03/2019 Essential hypertension (Chronic) I10 Hypokalemia (Chronic) E87.6 Hyperlipidemia (Chronic) E78.5 Hx of breast cancer (Chronic) Z85.3 Abdominal pain (Resolved) R10.9 Allergies hydrochlorothiazide Allergy (Intermediate, Verified 07/14/20 21:09) rash lisinopril Adverse Reaction (Intermediate, Verified 07/14/20 21:09) cough atorvastatin [From Lipitor] Adverse Reaction (Unknown, Verified 07/14/20 21:09) unknown spironolactone Adverse Reaction (Unknown, Verified 07/14/20 21:09) unknown Beta-Blockers (Beta-Adrenergic Bloc Adverse Reaction (Verified 07/14/20 21:09) cough codeine Adverse Reaction (Verified 07/14/20 21:09) Intolerance perindopril [From Aceon] Adverse Reaction (Verified 07/14/20 21:09) rash,cough Home Medications: Ambulatory Orders Medication Instructions Recorded Aspirin [Aspirin, Baby] 81 mg PO DAILY@0800 01/01/14 Levothyroxine [Synthroid] 88 mcg PO DAILY 01/01/14 Losartan Potassium [Cozaar] 100 mg PO DAILY 01/01/14 Potassium Chloride [K-Dur] 20 meq PO 4X/DAY 01/01/14 Amlodipine [Norvasc] 5 mg PO QHS 01/25/18 Furosemide [Lasix] 20 mg PO BID 01/25/18 Isosorbide Mononitrate [Isosorbide 15 mg PO DAILY 01/25/18 Mononitrate ER] Labetalol [Trandate (Beta Dipak)] 100 mg PO BID 01/25/18 Pantoprazole Sodium [Protonix] 40 mg PO DAILY 01/25/18 Biotin 1 mg PO DAILY 07/06/18 gemfibrozil 600 mg tablet 600 mg PO BID #60 tab 07/01/19 meclizine 25 mg tablet 25 mg PO DAILY PRN 07/01/19 gabapentin 300 mg capsule 300 mg PO QHS cap 09/04/19 Surgical History: Surgical History (Last Reviewed 07/15/20 @ 11:[address] Behzad Kelley MD) Hx of esophagogastroduodenoscopy (Resolved) Z98.890 09/16/19 Hx of cholecystectomy (Chronic) Z90.49 History of carpal tunnel release of both wrists (Chronic) Z98.890 Hx of tubal ligation (Chronic) Z98.51 Hx of eye surgery (Chronic) Z98.890 Hx of repair of right rotator cuff (Chronic) Z98.890 History of colonoscopy (Chronic) Onset Date: ~11/2018 Z98.890 History of left heart catheterization (Chronic) Onset Date: 08/16/19 Z98.[address] Erich Monroe [facility] main campus 01/04/2016 Normal LV size, wall motion,and systolic function; Preserved Left Ventricular systolic function with normal EDP; Normal coronary arteries; The patient has normal pulmonary hemodynamics. 08/16/[address] Merritt @ [facility] Surgical History: - - Right rotator cuff surgery, bilateral tubal ligation, cholecystectomy, bilateral carpal tunnel surgery, eye surgery. Psychiatric History: No pertinent psych hx LAYOUT MAN History: No pertinent LAYOUT MAN history Lives: With Family - Patient notes that her daughter lives with her. Smoking Status: Former smoker - Patient quit cigarette tobacco usage greater than 30 years prior with prior to this light smoking possibly 1/2 pack lasting her 1 week at a time, started in youth. Tobacco Use: Non-smoker Alcohol: None Drugs: None - *Family History Maternal Family History: Family History (Last Reviewed 07/10/20 @ 10:37 by Cherise Martínez) Mother Diabetes Heart disease Hypertension CVA (cerebral vascular accident) Sister Hypertension Heart disease Brother Heart disease Hypertension History Items: Diabetes, High Cholesterol, Heart Disease, Hypertension, Stroke Paternal Family History: Family History (Last Reviewed 07/10/20 @ 10:37 by Cherise Martínez) Mother Diabetes Heart disease Hypertension CVA (cerebral vascular accident) Sister Hypertension Heart disease Brother Heart disease Hypertension History Items: - - Patient at age 54 secondary to accident, patient denies any market history prior to this including heart disease, diabetes, cancer. Review of Systems Constitutional: Denies: Chills, Fever Cardiovascular: Denies: Chest Pain, Chest Pressure, Chest Tightness, Palpitations Gastrointestinal: Reports: Abdominal Pain Genitourinary: Denies: Dysuria, Frequency, Hematuria, Urgency Patient Problems: Active and Suspected Problems (Last Reviewed 07/10/20 @ 10:37 by Cherise Martínez) Diverticulitis (Acute) Hyponatremia (Acute) - Physical Exam Vitals/I&O's: Vital Signs Temp Pulse Resp BP Pulse Ox 97.9 F 60 18 138/51 H 97 07/15/20 08:18 07/15/20 08:18 07/15/20 08:41 07/15/20 08:18 07/15/20 08:18 Oxygen Delivery Method Room Air Weight: 173 lb 8.061 oz Body Mass Index (BMI) 32.8 Intake and Output for Last 24 Hours 07/13/20 07/14/20 07/15/20 23:59 23:59 23:59 Intake Total 1685 / 1685 Output Total 650 / 650 Balance 1035 / 1035 General: Alert, Oriented x3 Lungs: Clear to auscultation Cardiovascular: Regular rate, Regular Rhythm, No murmurs Abdomen: Tender - Patient has tenderness in the epigastric area as mostly in the left lower quadrant area. She has no peritoneal signs identified. Laboratory Results 07/14/20 21:25: Urine Color Yellow, Urine Clarity Clear, Urine pH 7.0, Ur Specific [place] 1.005, Urine Protein Negative, Urine Glucose (UA) Normal, Urine Ketones Negative, Urine Occult Blood Negative, Urine Nitrite Negative, Urine Bilirubin Negative, Urine Urobilinogen Normal, Ur Leukocyte Esterase Negative, Urine RBC 0 SEEN, Urine WBC 0 SEEN, Ur Squamous Epith Cells 0 SEEN, Urine Bacteria 0 SEEN, Urine Mucus 0 SEEN 07/14/20 22:07: WBC 10.9, RBC 4.13 L, Hgb 12.1, Hct 36.2 L, MCV 87.7, MCH 29.3, MCHC 33.4, RDW Std Deviation 37.4, RDW Coeff of Cami 11.6, Plt Count 361, MPV 9.5, Immature Gran % (Auto) 0.500, Neut % (Auto) 70.6 H, Lymph % (Auto) 18.0 L, [place] % (Auto) 8.1, Eos % (Auto) 2.0, Baso % (Auto) 0.8, Absolute Neuts (auto) 7.7, Absolute Lymphs (auto) 1.97, Nucleated RBC % 0 07/14/20 22:07: Sodium 129 L, Potassium 4.1, Chloride 99, Carbon Dioxide 23.0, Anion Gap 7, BUN 16, Creatinine 1.36 H, Estim Creat Clear Calc 28.22, Est GFR (MDRD) Af Amer 49 L, Est GFR (MDRD) Non-Af 41 L, BUN/Creatinine Ratio 11.8, Glucose 100, Calcium 8.8, Total Bilirubin 0.40, Direct Bilirubin 0.11, AST 31, ALT 21, Alkaline Phosphatase 113, Total Protein 7.7, Albumin 3.6, Globulin 4.1, Lipase 194 07/15/20 06:20: WBC 8.9, RBC 3.72 L, Hgb 10.6 L, Hct 32.6 L, MCV 87.6, MCH 28.5, MCHC 32.5, RDW Std Deviation 37.8, RDW Coeff of Cami 11.8, Plt Count 376, MPV 9.6, Immature Gran % (Auto) 0.200, Neut % (Auto) 60.3, Lymph % (Auto) 23.1, [place] % (Auto) 11.9 H, Eos % (Auto) 3.6, Baso % (Auto) 0.9, Absolute Neuts (auto) 5.4, Absolute Lymphs (auto) 2.06, Nucleated RBC % 0 07/15/20 06:20: Sodium 134 L, Potassium 3.5, Chloride 102, Carbon Dioxide 27.0, Anion Gap 5, BUN 13, Creatinine 1.28 H, Estim Creat Clear Calc 29.98, Est GFR (MDRD) Af Amer 53 L, Est GFR (MDRD) Non-Af 44 L, BUN/Creatinine Ratio 10.2, Glucose 96, Calcium 8.2 L, Total Bilirubin 0.50, AST 24, ALT 19, Alkaline Phosphatase 97, Total Protein 6.8, Albumin 3.2, Globulin 3.6, Albumin/Globulin Ratio 0.9 Current Medications Acetaminophen (Tylenol) 650 mg PO Q6H PRN PRN PRN Reason: Pain Score 1-10/Temp > 100.7 F Al Hydroxide/Mg Hydroxide (Mylanta Ii) 30 ml PO Q6H PRN PRN PRN Reason: Gastric Burning Albuterol Sulfate (Ventolin Aerosols) 2.5 mg INHALATION Q2H PRN PRN PRN Reason: Dyspnea, wheezing Amlodipine Besylate (Norvasc) 5 mg PO QHS [facility] Gabapentin (Neurontin) 300 mg PO DAILY [facility] Last Admin: 07/15/20 08:27 Dose: 300 mg Documented by: Guaifenesin (Robitussin) 20 ml PO Q4H PRN PRN PRN Reason: COUGH Hydralazine HCl (Apresoline Iv) 10 mg IV Q4H PRN PRN PRN Reason: SBP > 160 Sodium Chloride () 1,000 mls @ 125 mls/hr IV .Q8H [facility] Last Admin: 07/15/20 11:08 Dose: 125 mls/hr Documented by: Pantoprazole Sodium 40 mg/ (Sodium Chloride) 110 mls @ 330 mls/hr IV Q12 [facility] Last Admin: 07/15/20 10:34 Dose: 330 mls/hr Documented by: Piperacillin Sod/Tazobactam (Sod 3.375 gm/ Sodium Chloride) 50 mls @ 12.5 mls/hr IV Q8 [facility] Last Infusion: 07/15/20 11:11 Dose: Infused Documented by: Isosorbide Mononitrate (Imdur) 15 mg PO DAILY [facility] Last Admin: 07/15/20 08:30 Dose: 15 mg Documented by: Labetalol HCl (Trandate) 100 mg PO BIDCM [facility] Last Admin: 07/15/20 08:26 Dose: 100 mg Documented by: Levothyroxine Sodium (Synthroid) 88 mcg PO DAILY@0600 [facility] Last Admin: 07/15/20 06:07 Dose: 88 mcg Documented by: Losartan Potassium (Cozaar) 100 mg PO DAILY [facility] Last Admin: 07/15/20 08:27 Dose: 100 mg Documented by: Melatonin (Melatonin) 3 mg PO QHS PRN PRN PRN Reason: INSOMNIA Morphine Sulfate () 2 mg IV Q3H PRN PRN PRN Reason: Pain Score 6-10/10 Last Admin: 07/15/20 08:22 Dose: 2 mg Documented by: Ondansetron HCl (Zofran) 4 mg IV Q8H PRN PRN PRN Reason: NAUSEA/VOMITING Oxycodone HCl (Oxyir) 5 mg PO Q4H PRN PRN PRN Reason: Pain Score 4-5/10 Potassium Chloride (K-Dur) [facility] Last Admin: 07/15/20 11:13 Dose: 20 meq Documented by: Prochlorperazine Edisylate (Compazine Iv) 5 mg IV Q4H PRN PRN PRN Reason: Breakthrough nausea/vomiting Sodium Chloride () 10 - 40 ml IV UD PRN PRN Reason: SALINE FLUSH Last Admin: 07/15/20 08:22 Dose: 10 ml Documented by: Throat Lozenges (Cepacol Sore Throat Lozenge) 1 lozenge MUCOUS MEM Q2H PRN PRN PRN Reason: SORE THROAT Assessment/Plan All Active Problems (Last Reviewed 07/10/20 @ 10:37 by Cherise Martínez) Diverticulitis (Acute) Hyponatremia (Acute) Hx of esophagogastroduodenoscopy (Resolved) Abdominal pain (Resolved) Agree with conservative measures at this time. Believe the epigastric pain is probably related to her hiatal hernia. I think if we can get her over this episode we are going to have to discuss possibly doing an elective laparoscopic sigmoid colectomy on her. At the present time she does not have an emergent surgical abdomen. Office Visits / Consults: [id number] IP Consult L3
--- NOTE | 2020-07-15 13:32 | CASEMGMT ---
RN CM PRODUCTION COUNTER CM to room to meet with patient for initial transition planning/care coordination assessment. RN FRANCINE introduced self and role at [facility]. Pt voices understanding and consents to assessment at this time. Pt resting in bed in no distress at this time. Pt is A/O at this time and answers all questions appropriately. Care providers, pharmacy, and demographics verified/updated at this time. PCP: Dr Juan Parker Specialists: Dr Merritt--cardiology Preferred Pharmacy: [facility] Insurance: [facility], [place] Prescription Benefit: Yes Living Will/HPOA: Has both LW and Healthcare POA, who is her daughter, Abbi Huang and Grandson Alex Jacobsen. Pt aware copies are not on file @ [facility] [place]: 2 daughters: Abbi and Hannah Living Arrangements: Daughter lives w/pt in a one-story home w/3 steps to enter. Denies difficulty with stairs. Pt states she is independent w/ADL's and IADL's. and helps her daughter who is mentally delayed. Transportation: Pt states drives self and states no transportation concerns at this time. Daughter, Abbi will take her home @ discharge. DME: Denies using any DME and denies needs. HHC/SNF: No history of either and denies needs. No needs identified. Pt wishes to return home and states has no concerns with going home at time of discharge. CM to follow for any discharge planning/needs. Pt voices no concerns/needs at this time. Advised pt to ask for CM if any questions/concerns/needs arise. Voices understanding. PLAN: Home Anastasiya MCGOWAN RN, CM
[2020-07-15] MEDS: amLODIPine 5 MG Tablet PO (21:15)
[2020-07-16] MEDS: 0.9% Normal Saline 1,000 ML 125 ML IV ×3 (02:43→19:21)
[2020-07-16 02:47] VITALS: BP 119/48; PULSE 70; RESP 16; TEMP 36.7; O2SAT 97
[2020-07-16] MEDS: Levothyroxine 88 MCG Tablet PO (05:06)
[2020-07-16 05:56] LABS: Absolute Lymphocyte Count 1.84 X10^3/uL (0.83-4.51); Absolute Neutrophil Count 3.8 X10^3/uL (2.0-7.7); Basophil# 0.07 X10^3/uL; Eosinophil# 0.45 X10^3/uL; Eosinophils% 6.4 % (0-5); Hemoglobin 10.8 g/dL (12.0-15.0); Lymphocyte # 1.84 X10^3/ul (4.0); Lymphocyte % 26.3 % (19-41); Mean Corp Hgb Conc 32.7 g/dL (32-36); Mean Corpuscular Hgb 29.7 pg (27.0-32.0); Mean Corpuscular Volume 90.7 fL (81-99); Mean Platelet Vol. 9.7 fl (6.2-12.0); Monocyte# 0.84 X10^3/uL; NRBC Flagged by Analyzer 0 % (0-5); Neutrophil # 3.77 X10^3/uL (2.7-7.7); Platelet Count 342 K/mm3 (150-450); RBC Distribution Width CV 11.9 % (11.6-14.6); RBC Distribution Width SD 39.3 fl (35.1-43.9); Red Blood Count 3.64 M/mm3 (4.2-5.4)
[2020-07-16 06:16] LABS: Anion Gap 7 (5-15); BUN 9 mg/dL (7-18); BUN/Creat Ratio 8.5 RATIO (10-20); Calcium,Total 8.5 mg/dL (8.5-10.1); Chloride 110 mmol/L (98-107); Creatinine, Serum 1.06 mg/dL (0.55-1.02); EST Glomerular Filtration Rate 54 mL/min (>60); Est Glom Filt Rate - Afr Amer 66 mL/min (>60); Glucose 84 mg/dL (74-106); Potassium 3.8 mmol/L (3.5-5.1); Sodium Level 141 mmol/L (136-145)
[2020-07-16 07:36] VITALS: O2SAT 96
[2020-07-16 08:17] VITALS: BP 140/64; PULSE 68; RESP 18; TEMP 36.6; O2SAT 97
[2020-07-16] MEDS: Labetalol 100 MG Tablet PO ×2 (08:22→17:36)
[2020-07-16] MEDS: Gabapentin 300 MG Capsule PO (08:22)
[2020-07-16] MEDS: Isosorbide Mononitrate 30 MG Tablet 15 MG PO (08:22)
[2020-07-16] MEDS: Losartan Potassium 100 MG Tablet PO (08:23)
[2020-07-16 09:40] VITALS: RESP 18
--- NOTE | 2020-07-16 09:40 | PCM.PN.HOSP ---
Patient Problems: Active and Suspected Problems (Last Reviewed 07/15/20 @ 11:[address] Behzad Kelley MD) Diverticulitis (Acute) Hyponatremia (Acute) Subjective: Patient seen and examined. She feels abdominal pain is improving. She denies any nausea or vomiting. She denies any fever or chills. She had a bowel movement today which she said was dark. Review of symptoms otherwise negative. She has remained hemodynamically stable. Vitals/I&O's: Vital Signs Temp Pulse Resp BP Pulse Ox 97.9 F 68 18 140/64 H 97 07/16/20 08:17 07/16/20 08:17 07/16/20 08:17 07/16/20 08:17 07/16/20 08:17 Oxygen Delivery Method Room Air Weight: 173 lb 8.061 oz Body Mass Index (BMI) 32.8 Intake and Output for Last 24 Hours 07/14/20 07/15/20 07/16/20 23:59 23:59 23:59 Intake Total 3507.08 / 3507.08 787.83 / 787.83 Output Total 3000 / 3000 500 / 500 Balance 507.08 / 507.08 287.83 / 287.83 General: Alert, Oriented x3, Cooperative, No apparent distress HEENT: Atraumatic, PERRLA, EOMI, Normocephalic Oral: Moist Mucosa Neck: Supple, No JVD, Negative Carotid Bruits Lungs: Clear to auscultation, Normal air movement, No rhonchi, No wheeze, No rales Cardiovascular: Regular rate, Regular Rhythm, Normal S1, Normal S2, No murmurs Abdomen: Bowel Sounds Present, Soft, - - minimal abdominal tenderness, no guarding or rebound tenderness. . Extremities: No clubbing, No cyanosis, No edema, Capillary Refill Less than 3 Seconds Skin: No rashes, No breakdown Musculoskeletal: No Tenderness to Palpation of Joints or Extremities Lymphatic: No Cervical, Supraclavicular, or Inguinal Adenopathy Neurological: Cranial nerves II-XII grossly intact, Neuro grossly intact, Motor Exam 5/5 strength throughout Psych/Mental Status: Normal Affect, Appropriate, Alert and oriented to time, place, person, mood and affect Microbiology Past 72 Hours 07/15/20 14:10 Stool Stool Occult Blood (FIDEL) - Final Occult Blood Positive Laboratory Results 07/16/20 05:15: WBC 7.0, RBC 3.64 L, Hgb 10.8 L, Hct 33.0 L, MCV 90.7, MCH 29.7, MCHC 32.7, RDW Std Deviation 39.3, RDW Coeff of Cami 11.9, Plt Count 342, MPV 9.7, Immature Gran % (Auto) 0.300, Neut % (Auto) 54.0, Lymph % (Auto) 26.3, [place] % (Auto) 12.0 H, Eos % (Auto) 6.4 H, Baso % (Auto) 1.0, Absolute Neuts (auto) 3.8, Absolute Lymphs (auto) 1.84, Nucleated RBC % 0 07/16/20 05:15: Sodium 141, Potassium 3.8, Chloride 110 H, Carbon Dioxide 24.0, Anion Gap 7, BUN 9, Creatinine 1.06 H, Estim Creat Clear Calc 36.20, Est GFR (MDRD) Af Amer 66, Est GFR (MDRD) Non-Af 54 L, BUN/Creatinine Ratio 8.5 L, Glucose 84, Calcium 8.5 Diagnostic Data Abdomen/Pelvis CT 07/14/20 21:31 IMPRESSION: Acute diverticulitis of the distal descending colon as detailed above. No visualized distant abscess or free air. Partial bladder prolapse. No evidence of appendicitis. Electronically Signed: Richelle Romero MD at 0:39 EDT Tel , Service support , Current Medications Acetaminophen (Tylenol) 650 mg PO Q6H PRN PRN PRN Reason: Pain Score 1-10/Temp > 100.7 F Al Hydroxide/Mg Hydroxide (Mylanta Ii) 30 ml PO Q6H PRN PRN PRN Reason: Gastric Burning Albuterol Sulfate (Ventolin Aerosols) 2.5 mg INHALATION Q2H PRN PRN PRN Reason: Dyspnea, wheezing Amlodipine Besylate (Norvasc) 5 mg PO QHS [facility] Last Admin: 07/15/20 21:15 Dose: 5 mg Documented by: Gabapentin (Neurontin) 300 mg PO DAILY [facility] Last Admin: 07/16/20 08:22 Dose: 300 mg Documented by: Guaifenesin (Robitussin) 20 ml PO Q4H PRN PRN PRN Reason: COUGH Hydralazine HCl (Apresoline Iv) 10 mg IV Q4H PRN PRN PRN Reason: SBP > 160 Sodium Chloride () 1,000 mls @ 125 mls/hr IV .Q8H [facility] Last Admin: 07/16/20 02:43 Dose: 125 mls/hr Documented by: Pantoprazole Sodium 40 mg/ (Sodium Chloride) 110 mls @ 330 mls/hr IV Q12 [facility] Last Admin: 07/16/20 08:25 Dose: 330 mls/hr Documented by: Piperacillin Sod/Tazobactam (Sod 3.375 gm/ Sodium Chloride) 50 mls @ 12.5 mls/hr IV Q8 [facility] Last Infusion: 07/16/20 09:34 Dose: Infused Documented by: Sodium Chloride () 250 mls @ 15 mls/hr IV .[id number] PRN PRN Reason: Saline Flush Last Infusion: 07/16/20 05:06 Dose: 0 mls/hr Documented by: Isosorbide Mononitrate (Imdur) 15 mg PO DAILY [facility] Last Admin: 07/16/20 08:22 Dose: 15 mg Documented by: Labetalol HCl (Trandate) 100 mg PO BIDCM [facility] Last Admin: 07/16/20 08:22 Dose: 100 mg Documented by: Levothyroxine Sodium (Synthroid) 88 mcg PO DAILY@0600 [facility] Last Admin: 07/16/20 05:06 Dose: 88 mcg Documented by: Losartan Potassium (Cozaar) 100 mg PO DAILY [facility] Last Admin: 07/16/20 08:23 Dose: 100 mg Documented by: Melatonin (Melatonin) 3 mg PO QHS PRN PRN PRN Reason: INSOMNIA Morphine Sulfate () 2 mg IV Q3H PRN PRN PRN Reason: Pain Score 6-10/10 Last Admin: 07/15/20 23:25 Dose: 2 mg Documented by: Ondansetron HCl (Zofran) 4 mg IV Q8H PRN PRN PRN Reason: NAUSEA/VOMITING Oxycodone HCl (Oxyir) 5 mg PO Q4H PRN PRN PRN Reason: Pain Score 4-5/10 Potassium Chloride (K-Dur) [facility] Last Admin: 07/16/20 08:21 Dose: 20 meq Documented by: Prochlorperazine Edisylate (Compazine Iv) 5 mg IV Q4H PRN PRN PRN Reason: Breakthrough nausea/vomiting Sodium Chloride () 10 - 40 ml IV UD PRN PRN Reason: SALINE FLUSH Last Admin: 07/15/20 23:25 Dose: 10 ml Documented by: Throat Lozenges (Cepacol Sore Throat Lozenge) 1 lozenge MUCOUS MEM Q2H PRN PRN PRN Reason: SORE THROAT STROKE Vital Signs/Narrative: Vital Signs Temp Pulse Resp BP Pulse Ox 07/16/20 08:17 97.9 F 68 18 140/64 H 97 07/16/20 07:36 96 Medical Necessity - Tobacco Use Smoking Status: Former smoker - Patient quit cigarette tobacco usage greater than 30 years prior with prior to this light smoking possibly 1/2 pack lasting her 1 week at a time, started in youth. Tobacco Use: Non-smoker Assessment/Plan All Active Problems (Last Reviewed 07/15/20 @ 11:[address] Behzad Kelley MD) Diverticulitis (Acute) Hyponatremia (Acute) Hx of esophagogastroduodenoscopy (Resolved) Abdominal pain (Resolved) # acute diverticulitis failed outpatient therapy CT of the abdomen showed acute diverticulitis of the distal, descending colon on IV zosyn. pain is much better general surgery evaluated patient and agrees with conservative management for now. To be considered for bowel resection as needed on outpatient basis. # Acute hyponatremia; resolved. # CKD 3: stable. #Hypertension: On Norvasc, Imdur, losartan and labetalol. IV hydralazine as needed. #Hyperlipidemia: On gemfibrozil #Hypothyroidism: On Synthroid #GERD: Also has a history of hiatal hernia. On Protonix. DVT prophylaxis: SCDs Inpatient E&M: 90250 Subs Hosp L2
[2020-07-16 15:35] VITALS: BP 135/61; PULSE 71; RESP 18; TEMP 36.6; O2SAT 96
--- NOTE | 2020-07-16 15:44 | PN.SURG_ITS ---
Patient Problems: Active and Suspected Problems (Last Reviewed 07/15/20 @ 11:[address] Behzad Kelley MD) Diverticulitis (Acute) Hyponatremia (Acute) Subjective: Patient states that her pain has significantly improved. She has had bowel movements but not passing a lot of flatus. Objective: Abdomen is much softer than yesterday. No rebound guarding or peritoneal signs are identified. - Physical Exam Vitals/I&O's: Vital Signs Temp Pulse Resp BP Pulse Ox 97.9 F 71 18 135/61 H 96 07/16/20 15:35 07/16/20 15:35 07/16/20 15:35 07/16/20 15:35 07/16/20 15:35 Oxygen Delivery Method Room Air Weight: 173 lb 8.061 oz Body Mass Index (BMI) 32.8 Intake and Output for Last 24 Hours 07/14/20 07/15/20 07/16/20 23:59 23:59 23:59 Intake Total 3507.08 / 3507.08 2331.58 / 2331.58 Output Total 3000 / 3000 1150 / 1150 Balance 507.08 / 507.08 1181.58 / 1181.58 Microbiology Past 72 Hours 07/15/20 14:10 Stool Stool Occult Blood (FIDEL) - Final Occult Blood Positive Laboratory Results 07/16/20 05:15: WBC 7.0, RBC 3.64 L, Hgb 10.8 L, Hct 33.0 L, MCV 90.7, MCH 29.7, MCHC 32.7, RDW Std Deviation 39.3, RDW Coeff of Cami 11.9, Plt Count 342, MPV 9.7, Immature Gran % (Auto) 0.300, Neut % (Auto) 54.0, Lymph % (Auto) 26.3, Pleas[place] % (Auto) 12.0 H, Eos % (Auto) 6.4 H, Baso % (Auto) 1.0, Absolute Neuts (auto) 3.8, Absolute Lymphs (auto) 1.84, Nucleated RBC % 0 07/16/20 05:15: Sodium 141, Potassium 3.8, Chloride 110 H, Carbon Dioxide 24.0, Anion Gap 7, BUN 9, Creatinine 1.06 H, Estim Creat Clear Calc 36.20, Est GFR (MDRD) Af Amer 66, Est GFR (MDRD) Non-Af 54 L, BUN/Creatinine Ratio 8.5 L, Glucose 84, Calcium 8.5 Current Medications Acetaminophen (Tylenol) 650 mg PO Q6H PRN PRN PRN Reason: Pain Score 1-10/Temp > 100.7 F Al Hydroxide/Mg Hydroxide (Mylanta Ii) 30 ml PO Q6H PRN PRN PRN Reason: Gastric Burning Albuterol Sulfate (Ventolin Aerosols) 2.5 mg INHALATION Q2H PRN PRN PRN Reason: Dyspnea, wheezing Amlodipine Besylate (Norvasc) 5 mg PO QHS [facility] Last Admin: 07/15/20 21:15 Dose: 5 mg Documented by: Gabapentin (Neurontin) 300 mg PO DAILY [facility] Last Admin: 07/16/20 08:22 Dose: 300 mg Documented by: Guaifenesin (Robitussin) 20 ml PO Q4H PRN PRN PRN Reason: COUGH Hydralazine HCl (Apresoline Iv) 10 mg IV Q4H PRN PRN PRN Reason: SBP > 160 Sodium Chloride () 1,000 mls @ 125 mls/hr IV .Q8H [facility] Last Admin: 07/16/20 11:14 Dose: 125 mls/hr Documented by: Pantoprazole Sodium 40 mg/ (Sodium Chloride) 110 mls @ 330 mls/hr IV Q12 [facility] Last Infusion: 07/16/20 08:45 Dose: Infused Documented by: Piperacillin Sod/Tazobactam (Sod 3.375 gm/ Sodium Chloride) 50 mls @ 12.5 mls/hr IV Q8 [facility] Last Admin: 07/16/20 14:03 Dose: 12.5 mls/hr Documented by: Sodium Chloride () 250 mls @ 15 mls/hr IV .[id number] PRN PRN Reason: Saline Flush Last Infusion: 07/16/20 11:49 Dose: 0 mls/hr Documented by: Isosorbide Mononitrate (Imdur) 15 mg PO DAILY [facility] Last Admin: 07/16/20 08:22 Dose: 15 mg Documented by: Labetalol HCl (Trandate) 100 mg PO BIDCM [facility] Last Admin: 07/16/20 08:22 Dose: 100 mg Documented by: Levothyroxine Sodium (Synthroid) 88 mcg PO DAILY@0600 [facility] Last Admin: 07/16/20 05:06 Dose: 88 mcg Documented by: Losartan Potassium (Cozaar) 100 mg PO DAILY [facility] Last Admin: 07/16/20 08:23 Dose: 100 mg Documented by: Melatonin (Melatonin) 3 mg PO QHS PRN PRN PRN Reason: INSOMNIA Morphine Sulfate () 2 mg IV Q3H PRN PRN PRN Reason: Pain Score 6-10/10 Last Admin: 07/15/20 23:25 Dose: 2 mg Documented by: Ondansetron HCl (Zofran) 4 mg IV Q8H PRN PRN PRN Reason: NAUSEA/VOMITING Oxycodone HCl (Oxyir) 5 mg PO Q4H PRN PRN PRN Reason: Pain Score 4-5/10 Potassium Chloride (K-Dur) 20 meq PO 4X/DAYCM [facility] Last Admin: 07/16/20 11:20 Dose: 20 meq Documented by: Prochlorperazine Edisylate (Compazine Iv) 5 mg IV Q4H PRN PRN PRN Reason: Breakthrough nausea/vomiting Sodium Chloride () 10 - 40 ml IV UD PRN PRN Reason: SALINE FLUSH Last Admin: 07/15/20 23:25 Dose: 10 ml Documented by: Throat Lozenges (Cepacol Sore Throat Lozenge) 1 lozenge MUCOUS MEM Q2H PRN PRN PRN Reason: SORE THROAT Medical Necessity - Tobacco Use Smoking Status: Former smoker - Patient quit cigarette tobacco usage greater than 30 years prior with prior to this light smoking possibly 1/2 pack lasting her 1 week at a time, started in youth. Tobacco Use: Non-smoker Assessment/Plan All Active Problems (Last Reviewed 07/15/20 @ 11:[address] Behzad Kelley MD) Diverticulitis (Acute) Hyponatremia (Acute) Hx of esophagogastroduodenoscopy (Resolved) Abdominal pain (Resolved) I will follow-up with the patient in the office. Inpatient E&M: 10073 Subs Hosp L2
[2020-07-16 21:02] VITALS: BP 141/73; PULSE 69; RESP 16; TEMP 36.3; O2SAT 97
[2020-07-16] MEDS: amLODIPine 5 MG Tablet PO (21:10)
[2020-07-17 03:33] VITALS: BP 150/70; PULSE 67; RESP 16; TEMP 36.6; O2SAT 93
[2020-07-17] MEDS: 0.9% Normal Saline 1,000 ML 125 ML IV (03:34)
[2020-07-17] MEDS: Levothyroxine 88 MCG Tablet PO (06:00)
[2020-07-17 06:18] LABS: Absolute Lymphocyte Count 1.91 X10^3/uL (0.83-4.51); Basophil# 0.09 X10^3/uL; Basophil% 1.1 % (0-1); Eosinophil# 0.52 X10^3/uL; Eosinophils% 6.3 % (0-5); Hematocrit 33.8 % (37-47); Hemoglobin 10.9 g/dL (12.0-15.0); Lymphocyte # 1.91 X10^3/ul (4.0); Mean Corp Hgb Conc 32.2 g/dL (32-36); Mean Corpuscular Hgb 28.7 pg (27.0-32.0); Mean Corpuscular Volume 88.9 fL (81-99); Mean Platelet Vol. 9.4 fl (6.2-12.0); Monocyte# 0.75 X10^3/uL; NRBC Flagged by Analyzer 0 % (0-5); Neutrophil # 5.02 X10^3/uL (2.7-7.7); Neutrophil % 60.4 % (47-70); Platelet Count 356 K/mm3 (150-450); RBC Distribution Width CV 11.8 % (11.6-14.6); RBC Distribution Width SD 37.4 fl (35.1-43.9); White Blood Count 8.3 K/mm3 (4.4-11.0)
[2020-07-17 06:38] LABS: Anion Gap 5 (5-15); BUN 6 mg/dL (7-18); BUN/Creat Ratio 6.2 RATIO (10-20); Calcium,Total 8.9 mg/dL (8.5-10.1); Chloride 112 mmol/L (98-107); Creatinine, Serum 0.97 mg/dL (0.55-1.02); EST Glomerular Filtration Rate 60 mL/min (>60); Est Glom Filt Rate - Afr Amer 72 mL/min (>60); Estimated Creatinine Clearance 39.56 ml/min; Glucose 94 mg/dL (74-106); Potassium 3.8 mmol/L (3.5-5.1); Sodium Level 141 mmol/L (136-145)
[2020-07-17 07:10] VITALS: O2SAT 96
[2020-07-17 08:58] VITALS: BP 148/69; PULSE 72; RESP 16; TEMP 36.6; O2SAT 96
[2020-07-17] MEDS: Losartan Potassium 100 MG Tablet PO (09:16)
[2020-07-17] MEDS: Labetalol 100 MG Tablet PO (09:16)
[2020-07-17] MEDS: Gabapentin 300 MG Capsule PO (09:17)
[2020-07-17] MEDS: Isosorbide Mononitrate 30 MG Tablet 15 MG PO (09:17)
--- NOTE | 2020-07-17 10:14 | DCINST_ITS ---
- Discharge Diagnoses Current Active Problems: Current Active and Chronic Problems Diverticulitis (Acute) GERD (gastroesophageal reflux disease) (Chronic) Hyponatremia (Acute) CKD (chronic kidney disease), stage III (Chronic) Former tobacco use (Chronic) You will use the following diet at home:: Other - soft diet Your food should be the consistency of: Soft (bite-sized & easy to chew/swallow) Your liquids should be the consistency of: Regular/Thin Discharge Activity: Return to Normal Activity Weight Bearing Status: Weight bearing as tolerated Call your doctor if you observe: Fever of 101 or Higher, Uncontrolled pain Instructions: ED Diverticulitis Allergies/Adverse Reactions: Allergies hydrochlorothiazide Allergy (Intermediate, Verified 07/14/20 21:09) rash lisinopril Adverse Reaction (Intermediate, Verified 07/14/20 21:09) cough atorvastatin [From Lipitor] Adverse Reaction (Unknown, Verified 07/14/20 21:09) unknown spironolactone Adverse Reaction (Unknown, Verified 07/14/20 21:09) unknown Beta-Blockers (Beta-Adrenergic Bloc Adverse Reaction (Verified 07/14/20 21:09) cough codeine Adverse Reaction (Verified 07/14/20 21:09) Intolerance perindopril [From Aceon] Adverse Reaction (Verified 07/14/20 21:09) rash,cough Medications to take at Discharge Aspirin [Aspirin, Baby] 81 mg PO DAILY@0800 01/01/14 Levothyroxine [Synthroid] 88 mcg PO DAILY 01/01/14 Losartan Potassium [Cozaar] 100 mg PO DAILY 01/01/14 Potassium Chloride [K-Dur] 20 meq PO 4X/DAY 01/01/14 Amlodipine [Norvasc] 5 mg PO QHS 01/25/18 Furosemide [Lasix] 20 mg PO BID 01/25/18 Isosorbide Mononitrate [Isosorbide Mononitrate ER] 15 mg PO DAILY 01/25/18 Labetalol [Trandate (Beta Dipak)] 100 mg PO BID 01/25/18 Pantoprazole Sodium [Protonix] 40 mg PO DAILY 01/25/18 Biotin 1 mg PO DAILY 07/06/18 gemfibrozil 600 mg tablet 600 mg PO BID #60 tab 07/01/19 meclizine 25 mg tablet 25 mg PO DAILY PRN 07/01/19 gabapentin 300 mg capsule 300 mg PO QHS cap 10/30/19 Ciprofloxacin HCl 500 mg PO BID #10 tab 07/17/20 Metronidazole 500 mg PO Q8 #15 tab 07/17/20 The following prescriptions were given: Ciprofloxacin HCl 500 mg PO BID #10 tab Transmission Status: Pending to [facility] Metronidazole 500 mg PO Q8 #15 tab Transmission Status: Pending to [facility] Primary Care Physician: Jason Parker III, MD [Primary Care Provider] - Please follow up with your Primary Care Physician in: 1-2 weeks Test Results: Test results from this visit will be discussed in further detail at your follow- up appointment, if applicable. Please Follow Up With: Behzad Kelley MD When: 1 week Proposed Discharge Date: 07/17/20
--- NOTE | 2020-07-17 10:16 | PCM.DC.SUM ---
Discharge Date and Diagnosis Date of Admission: 07/15/20 Date of Discharge: 07/17/20 - Primary Discharge Diagnosis Acute Problems: Active Problems (Last Reviewed 07/15/20 @ 11:[address] Behzad Kelley MD) Diverticulitis (Acute) Hyponatremia (Acute) - Secondary Discharge Diagnosis Chronic Problems: Chronic Problems (Last Reviewed 07/15/20 @ 11:[address] Behzad Kelley MD) GERD (gastroesophageal reflux disease) (Chronic) CKD (chronic kidney disease), stage III (Chronic) Former tobacco use (Chronic) Diverticulosis (Chronic) Hx of cholecystectomy (Chronic) History of carpal tunnel release of both wrists (Chronic) Hx of tubal ligation (Chronic) Hx of eye surgery (Chronic) Hx of repair of right rotator cuff (Chronic) History of colonoscopy (Chronic ~11/2018) Dyspnea on exertion (Chronic) Chest pain (Chronic) Nonrheumatic mitral valve insufficiency (Chronic) mild (1-2+) per echo 04/03/2019 History of left heart catheterization (Chronic 08/16/19) Normal coronaries per Dr. Erich Monroe [facility] main campus 01/04/2016 Normal LV size, wall motion,and systolic function; Preserved Left Ventricular systolic function with normal EDP; Normal coronary arteries; The patient has normal pulmonary hemodynamics. 08/16/[address] Merritt @ [facility] Essential hypertension (Chronic) Hypokalemia (Chronic) Hyperlipidemia (Chronic) Hx of breast cancer (Chronic) Hospital Course and Treatment Imaging Results: Diagnostic Data Abdomen/Pelvis CT 07/14/20 21:31 IMPRESSION: Acute diverticulitis of the distal descending colon as detailed above. No visualized distant abscess or free air. Partial bladder prolapse. No evidence of appendicitis. Electronically Signed: Richelle Romero MD at 0:39 EDT Tel , Service support , general surgery- Dr Kelley Operations: None Procedures: None Summary of Care Provided: The patient is a 70 year old F with extensive past medical history as outlined who was admitted with a complaint of lower abdominal pain with her sister chills but no fevers, nausea but no vomiting and poor oral intake as well as loose stools. She had had a recent history of ventriculitis and was discharged on p.o. ciprofloxacin and Flagyl. However symptoms persisted so she came back. She had had about 5 episodes of diverticulitis in the past and had been following up with Dr. Kelley. She has been reticent to have removal of a section of her colon but was now amenable to this suggestion. In the ED, vitals were essentially stable apart from mildly elevated blood pressure, CBC showed WBC of 10.9 hemoglobin of 12.1. CMP showed sodium of 129 but was otherwise unremarkable. CT of the abdomen and pelvis showed acute diverticulitis of the distal descending colon with no visualized distant abscess or free air. She was admitted and managed for acute diverticulitis and hydrated with IV fluids. She was also managed for acute hyponatremia which was thought to be due to dehydration from decreased intake and diarrhea. She was hydrated with fluids and given IV morphine for pain. General surgery was also consulted and conservative management was recommended, and to follow up with general surgery on outpatient basis. Pain gradually improved. Diarrhea also subsequently improved. There was some scant blood seen in her stool which was thought to be due to diverticulitis. Stool occult blood was done which was positive. However this was thought to be due to the inflammation from the diverticulitis. Patient remained stable and she was started on clear liquid diet which was tolerable for her. This is gradually advance to full liquid diet and then she did well with soft diet on the day of discharge. Patient was discharged home on 07/17/2020 with a prescription for p.o. ciprofloxacin and metronidazole for 5 days. Of note, hyponatremia also resolved with IV fluid administration. She is also to be on a soft diet and is to follow-up with general surgery within 1 week. Patient seen and examined prior to discharge. She felt much better and had no complaints. Review of symptoms otherwise negative. Labs and vitals reviewed. Home medication reviewed and reconciled. O/E: Vital Signs Temp Pulse Resp BP Pulse Ox 97.9 F 72 16 148/69 H 96 07/17/20 08:58 07/17/20 08:58 07/17/20 08:58 07/17/20 08:58 07/17/20 08:58 [] General: Alert, Oriented x3, Cooperative, No apparent distress HEENT: Atraumatic, PERRLA, EOMI, Normocephalic Oral: Moist Mucosa Neck: Supple, No JVD, Negative Carotid Bruits Lungs: Clear to auscultation, Normal air movement, No rhonchi, No wheeze, No rales Cardiovascular: Regular rate, Regular Rhythm, Normal S1, Normal S2, No murmurs Abdomen: Bowel Sounds Present, Soft, - - minimal abdominal tenderness, no guarding or rebound tenderness. . Extremities: No clubbing, No cyanosis, No edema, Capillary Refill Less than 3 Seconds Skin: No rashes, No breakdown Musculoskeletal: No Tenderness to Palpation of Joints or Extremities Lymphatic: No Cervical, Supraclavicular, or Inguinal Adenopathy Neurological: Cranial nerves II-XII grossly intact, Neuro grossly intact, Motor Exam 5/5 strength throughout Psych/Mental Status: Normal Affect, Appropriate, Alert and oriented to time, place, person, mood and affect Plan is for discharge home as above. - Physical Exam Vitals/I&O's: Vital Signs Temp Pulse Resp BP Pulse Ox 97.9 F 72 16 148/69 H 96 07/17/20 08:58 07/17/20 08:58 07/17/20 08:58 07/17/20 08:58 07/17/20 08:58 Oxygen Delivery Method Room Air Weight: 173 lb 8.061 oz Body Mass Index (BMI) 32.8 Intake and Output for Last 24 Hours 07/15/20 07/16/20 07/17/20 23:59 23:59 23:59 Intake Total 3507.08 / 3507.08 4404.25 / 4604.25 1292.00 / 1292.00 Output Total 3000 / 3000 2600 / 3400 2400 / 2400 Balance 507.08 / 507.08 1804.25 / 1204.25 -1108.00 / -1108.00 Microbiology Past 72 Hours 07/15/20 14:10 Stool Stool Occult Blood (FIDEL) - Final Occult Blood Positive Laboratory Results 07/17/20 06:00: WBC 8.3, RBC 3.80 L, Hgb 10.9 L, Hct 33.8 L, MCV 88.9, MCH 28.7, MCHC 32.2, RDW Std Deviation 37.4, RDW Coeff of Cami 11.8, Plt Count 356, MPV 9.4, Immature Gran % (Auto) 0.200, Neut % (Auto) 60.4, Lymph % (Auto) 23.0, Ida % (Auto) 9.0, Eos % (Auto) 6.3 H, Baso % (Auto) 1.1 H, Absolute Neuts (auto) 5.0, Absolute Lymphs (auto) 1.91, Nucleated RBC % 0 07/17/20 06:00: Sodium 141, Potassium 3.8, Chloride 112 H, Carbon Dioxide 24.0, Anion Gap 5, BUN 6 L, Creatinine 0.97, Estim Creat Clear Calc 39.56, Est GFR (MDRD) Af Amer 72, Est GFR (MDRD) Non-Af 60, BUN/Creatinine Ratio 6.2 L, Glucose 94, Calcium 8.9 Diagnostic Data Abdomen/Pelvis CT 07/14/20 21:31 IMPRESSION: Acute diverticulitis of the distal descending colon as detailed above. No visualized distant abscess or free air. Partial bladder prolapse. No evidence of appendicitis. Electronically Signed: Richelle Romero MD at 0:39 EDT Tel , Service support , Current Medications Acetaminophen (Tylenol) 650 mg PO Q6H PRN PRN PRN Reason: Pain Score 1-10/Temp > 100.7 F Al Hydroxide/Mg Hydroxide (Mylanta Ii) 30 ml PO Q6H PRN PRN PRN Reason: Gastric Burning Albuterol Sulfate (Ventolin Aerosols) 2.5 mg INHALATION Q2H PRN PRN PRN Reason: Dyspnea, wheezing Amlodipine Besylate (Norvasc) 5 mg PO QHS [facility] Last Admin: 07/16/20 21:10 Dose: 5 mg Documented by: Gabapentin (Neurontin) 300 mg PO DAILY [facility] Last Admin: 07/17/20 09:17 Dose: 300 mg Documented by: Guaifenesin (Robitussin) 20 ml PO Q4H PRN PRN PRN Reason: COUGH Hydralazine HCl (Apresoline Iv) 10 mg IV Q4H PRN PRN PRN Reason: SBP > 160 Sodium Chloride () 1,000 mls @ 125 mls/hr IV .Q8H [facility] Last Admin: 07/17/20 03:34 Dose: 125 mls/hr Documented by: Pantoprazole Sodium 40 mg/ (Sodium Chloride) 110 mls @ 330 mls/hr IV Q12 [facility] Last Admin: 07/17/20 09:18 Dose: 330 mls/hr Documented by: Piperacillin Sod/Tazobactam (Sod 3.375 gm/ Sodium Chloride) 50 mls @ 12.5 mls/hr IV Q8 [facility] Last Admin: 07/17/20 06:00 Dose: 12.5 mls/hr Documented by: Sodium Chloride () 250 mls @ 15 mls/hr IV .[id number] PRN PRN Reason: Saline Flush Last Infusion: 07/17/20 06:00 Dose: 0 mls/hr Documented by: Isosorbide Mononitrate (Imdur) 15 mg PO DAILY [facility] Last Admin: 07/17/20 09:17 Dose: 15 mg Documented by: [facility] Admin: 07/17/20 09:16 Dose: 100 mg Documented by: Levothyroxine Sodium (Synthroid) 88 mcg PO DAILY@0600 [facility] Last Admin: 07/17/20 06:00 Dose: 88 mcg Documented by: Losartan Potassium (Cozaar) 100 mg PO DAILY [facility] Last Admin: 07/17/20 09:16 Dose: 100 mg Documented by: Melatonin (Melatonin) 3 mg PO QHS PRN PRN PRN Reason: INSOMNIA Morphine Sulfate () 2 mg IV Q3H PRN PRN PRN Reason: Pain Score 6-10/10 Last Admin: 07/15/20 23:25 Dose: 2 mg Documented by: Ondansetron HCl (Zofran) 4 mg IV Q8H PRN PRN PRN Reason: NAUSEA/VOMITING Oxycodone HCl (Oxyir) 5 mg PO Q4H PRN PRN PRN Reason: Pain Score 4-5/10 Potassium Chloride (K-Dur) [facility] Last Admin: 07/17/20 09:16 Dose: 20 meq Documented by: Prochlorperazine Edisylate (Compazine Iv) 5 mg IV Q4H PRN PRN PRN Reason: Breakthrough nausea/vomiting Sodium Chloride () 10 - 40 ml IV UD PRN PRN Reason: SALINE FLUSH Last Admin: 07/15/20 23:25 Dose: 10 ml Documented by: Throat Lozenges (Cepacol Sore Throat Lozenge) 1 lozenge MUCOUS MEM Q2H PRN PRN PRN Reason: SORE THROAT Discharge Diet: Low fat/ Low Cholesterol - soft diet Discharge Activity: Return to Normal Activity Weight Bearing Status: Weight bearing as tolerated Call your doctor if you observe: Fever of 101 or Higher, Uncontrolled pain Home Medications: Medications to take at Discharge Aspirin [Aspirin, Baby] 81 mg PO DAILY@0800 01/01/14 Levothyroxine [Synthroid] 88 mcg PO DAILY 01/01/14 Losartan Potassium [Cozaar] 100 mg PO DAILY 01/01/14 Potassium Chloride [K-Dur] 20 meq PO 4X/DAY 01/01/14 Amlodipine [Norvasc] 5 mg PO QHS 01/25/18 Furosemide [Lasix] 20 mg PO BID 01/25/18 Isosorbide Mononitrate [Isosorbide Mononitrate ER] 15 mg PO DAILY 01/25/18 Labetalol [Trandate (Beta Dipak)] 100 mg PO BID 01/25/18 Pantoprazole Sodium [Protonix] 40 mg PO DAILY 01/25/18 Biotin 1 mg PO DAILY 07/06/18 gemfibrozil 600 mg tablet 600 mg PO BID #60 tab 07/01/19 meclizine 25 mg tablet 25 mg PO DAILY PRN 07/01/19 gabapentin 300 mg capsule 300 mg PO QHS cap 09/04/19 Ciprofloxacin HCl 500 mg PO BID #10 tab 07/17/20 Metronidazole 500 mg PO Q8 #15 tab 07/17/20 Following Prescriptions Were Given to Patient: Ciprofloxacin HCl 500 mg PO BID #10 tab Transmission Status: Received by [facility] Metronidazole 500 mg PO Q8 #15 tab Transmission Status: Received by [facility] Primary Care Physician: Jason Parker III, MD [Primary Care Provider] - Please follow up with your Primary Care Physician in: 1-2 weeks Please Follow Up With: Behzad Kelley MD When: 1 week Patient Instructions: ED Diverticulitis Disposition: Home Minutes spent on discharge:: 45 Patient Condition:: Stable Medical Necessity - Tobacco Use Smoking Status: Former smoker - Patient quit cigarette tobacco usage greater than 30 years prior with prior to this light smoking possibly 1/2 pack lasting her 1 week at a time, started in youth. Tobacco Use: Non-smoker Meaningful Use Info Meaningful Use Diagnoses (Choose all that apply): None applicable Inpatient E&M: 10286 Disch Hosp
--- NOTE | 2020-07-17 11:18 | PHA.DC.MC ---
Pharmacy Service has performed discharge medication reconciliation and counseling for this patient. 1. CIPROFLOXACIN 500MG PO BID X 5 DAYS 2. METRONIDAZOLE 500MG PO Q8H X 5 DAYS The patient's discharge medication list was reviewed for discrepancies and discrepancies were resolved. Home Medications Aspirin [Aspirin, Baby] 81 mg PO DAILY@0800 01/01/14 Levothyroxine [Synthroid] 88 mcg PO DAILY 01/01/14 Losartan Potassium [Cozaar] 100 mg PO DAILY 01/01/14 Potassium Chloride [K-Dur] 20 meq PO 4X/DAY 01/01/14 Amlodipine [Norvasc] 5 mg PO QHS 01/25/18 Furosemide [Lasix] 20 mg PO BID 01/25/18 Isosorbide Mononitrate [Isosorbide Mononitrate ER] 15 mg PO DAILY 01/25/18 Labetalol [Trandate (Beta Dipak)] 100 mg PO BID 01/25/18 Pantoprazole Sodium [Protonix] 40 mg PO DAILY 01/25/18 Biotin 1 mg PO DAILY 07/06/18 gemfibrozil 600 mg tablet 600 mg PO BID #60 tab 07/01/19 meclizine 25 mg tablet 25 mg PO DAILY PRN 07/01/19 gabapentin 300 mg capsule 300 mg PO QHS cap 09/04/19 Ciprofloxacin HCl 500 mg PO BID #10 tab 07/17/20 Metronidazole 500 mg PO Q8 #15 tab 07/17/20 The patient was counseled on the following discharge medications and changes in medications for homegoing were reviewed. The Reason for Use, instructions for use, and potential side effects were reviewed for all new medications. The patient's questions regarding all of their medications were answered. The patient was able to verbally demonstrate an understanding of their discharge medications.
--- NOTE | 2020-07-21 11:52 | CASEMGMT ---
LOLI ESCAMILLA Discharge Follow-up Phone Call: MONTY: Murali Strata: 3 Call Date: 07/21/2020 Discharge Date: 07/17/2020 Time of Call: 1154 Duration: 3 min Admitting Diagnosis: Acute Diverticulitis LOLI ESCAMILLA completed follow-up phone call after recent hospitalization. Patient states she is doing better and is taking antibiotics for infections. Patient had no questions or concerns regarding discharge instructions. Patient was able to fill prescriptions without any issues. Patient has follow-up appointments schedule with surgeon and PCP. Patient denied any further questions or concerns at this time.
== END 2020-07-17 11:24 | disposition home or self-care (01) | DRG 378 ==
LOC: ED 07-15 00:45 → MS3 07-15 01:12
PROVIDERS: Admitting Provider Family Medicine; Emergency Provider Emergency Medicine; PCP Family Medicine; Referring Provider Family Medicine; Visit Provider Student in an Organized Health Care Education/Training Program
DX: K57.33 Diverticulitis of large intestine without perforation or abscess with bleeding (principal); E87.1 Hypo-osmolality and hyponatremia; E78.5 Hyperlipidemia, unspecified; Z87.891 Personal history of nicotine dependence; Z79.2 Long term (current) use of antibiotics; K21.9 Gastro-esophageal reflux disease without esophagitis; I12.9 Hypertensive chronic kidney disease with stage 1 through stage 4 chronic kidney disease, or unspecified chronic kidney disease; N18.3 Chronic kidney disease, stage 3 (moderate); Z79.899 Other long term (current) drug therapy; E86.1 Hypovolemia; E03.9 Hypothyroidism, unspecified; K44.9 Diaphragmatic hernia without obstruction or gangrene; E66.9 Obesity, unspecified; Z68.32 Body mass index [BMI] 32.0-32.9, adult
CPT/HCPCS: 36415; 74177; 80048; 80053; 80076; 81001; 82274; 83690; 85025; 99251; 99285; J7030; J7050; Q9967; A4216; G0463

== ENCOUNTER 2021-03-09 06:16 | Inpatient (IN) | payer MEDICARE, SELFPAY ==
[2021-02-09 14:18] VITALS: BMI 33.5
[2021-03-09] VITALS (8 sets, daily range): BP systolic 135–170; BP diastolic 48–69; PULSE 64–78; RESP 16–18; TEMP 36.3–36.6; O2SAT 96–98; BMI 33.2; BMI 33.4
--- NOTE | 2021-03-09 06:21 | CT_ITS ---
STUDY: CT BRAIN WITHOUT CONTRAST REASON FOR EXAM: Female, 70 years old. Headache RADIATION DOSAGE (If Supplied By Facility): CTDIvol = ( 44.99 ) mGy, DLP = ( 762.36 ) mGycm TECHNIQUE: Transaxial CT imaging of the brain was performed without administration of intravenous contrast material. Individualized dose optimization techniques were used for this CT. COMPARISON: January 25, 2018 CT head FINDINGS: Normal soft tissue structures. There is hyperostosis frontalis internus. There is mild cerebral atrophy with widening of the extra-axial spaces and ventricular dilatation. There are areas of decreased attenuation within the white matter tracts of the supratentorial brain, consistent with microvascular disease changes. There are small punctate calcifications of the basal ganglia which are seen in the aging brain as a normal variant. Normal brainstem. There is mild cerebellar atrophy. There is no intracranial hemorrhage. There are no findings of an acute ischemic infarction. Normal visualized paranasal sinuses. There is a suggestion of a prior right-sided nasal bone fracture. CT/Brain/Head without Contrast IMPRESSION: Mild atrophy no evidence of acute hemorrhage infarct or edema. Electronically Signed: Richelle Romero MD at 7:15 EDT Tel , Service support ,
--- NOTE | 2021-03-09 06:24 | EX.ED.DYSGE1 ---
HPI History of Present Illness Chief Complaint: Headache Informant: patient Onset/Context/Timing Onset: Days Context: Gradual Onset Timing: Continuous Current Severity: Moderate Maximum Severity: Moderate Narrative Narrative: The patient presents to the emergency department with multiple complaints. She states that she has had a constant throbbing frontal headache for the past 2 weeks. She can find nothing that makes it better or worse. She states that it feels like pressure behind her eyes. She has used a hot pack and a cold pack with little improvement. She states that she is also begun to have restless legs and feels like if she walks it seems to make her symptoms better. Because of this, she is not been getting much sleep. She denies visual change. She denies sudden onset to the headache. She states she is never really had headache before. She has had no weakness, numbness, or tingling. She denies neck pain. Prior similar symptoms: No Recent Illness/Hospitalization: No PFSH PFSH Medical History Abdominal pain CKD (chronic kidney disease), stage III Diverticulitis Diverticulosis Essential hypertension Former tobacco use GERD (gastroesophageal reflux disease) Hiatal hernia Hx of breast cancer Hyperlipidemia Hypokalemia Hyponatremia Obesity Home Medications aspirin 81 mg PO DAILY@0800 01/01/14 [History Last Taken 07/14/20 17:30] levothyroxine 88 mcg PO DAILY 01/01/14 [History Last Taken 07/14/20 07:30] losartan 100 mg PO DAILY 01/01/14 [History Last Taken 07/14/20 08:00] amlodipine 5 mg PO QHS 01/25/18 [History Last Taken 07/14/20 17:30] labetalol 100 mg PO BID 01/25/18 [History Last Taken 07/14/20 17:30] pantoprazole 40 mg PO DAILY 01/25/18 [History Last Taken 07/14/20 08:00] biotin 1 mg PO DAILY 07/06/18 [History Last Taken 07/14/20 08:00] meclizine 25 mg tablet 25 mg PO DAILY PRN 07/01/19 [History Last Taken 07/12/20 03:00] gabapentin 300 mg capsule 300 mg PO QHS cap 09/04/19 [History Last Taken 07/13/20 22:00] indapamide 1.25 mg tablet 1.25 mg PO QAM #90 tablet 02/09/21 [Rx Last Taken Unknown] potassium chloride 20 mEq tablet,extended release 20 meq PO DAILY #90 tablet 02/09/21 [Rx Last Taken Unknown] Allergy/AdvReac Type Severity Reaction Status Date / Time hydrochlorothiazide Allergy Intermediate rash Verified 03/09/21 06:21 lisinopril AdvReac Intermediate cough Verified 03/09/21 06:21 atorvastatin [From Lipitor] AdvReac Unknown unknown Verified 03/09/21 06:21 spironolactone AdvReac Unknown unknown Verified 03/09/21 06:21 Beta-Blockers AdvReac cough Verified 03/09/21 06:21 (Beta-Adrenergic Bloc codeine AdvReac Intolerance Verified 03/09/21 06:21 perindopril [From Aceon] AdvReac rash,cough Verified 03/09/21 06:21 Family History Mother Diabetes Heart disease Hypertension CVA (cerebral vascular accident) Sister Hypertension Heart disease Brother Heart disease Hypertension Surgical History History of carpal tunnel release of both wrists History of colonoscopy (11/2018) History of left heart catheterization (2015) History of right and left heart catheterization (08/16/19) Hx of cholecystectomy Hx of esophagogastroduodenoscopy Hx of eye surgery Hx of repair of right rotator cuff Hx of tubal ligation Social History Smoking Status: Former smoker alcohol intake: current alcohol intake frequency: holidays/special occasions only substance use type: does not use caffeine: No what type of physical activity do you participate in: none frequency: does not exercise ROS ROS ED Constitutional Constitutional ED: Denies chills or fever(s) Eyes Eyes: Denies blurry vision or change in vision ENT ENT ED: Denies ear pain or sore throat Cardiovascular Cardiovascular: Denies chest pain or palpitations Respiratory/Chest Respiratory/Chest: Denies cough, dyspnea or dyspnea on exertion Gastrointestinal Gastrointestinal: Denies abdominal pain, nausea or vomiting Genitourinary Genitourinary ED: Denies dysuria or urinary frequency Musculoskeletal Musculoskeletal: Reports myalgias Integumentary Denies rash Neurologic Neurologic: Reports headache(s) Psychiatric Psychiatric: Reports anxiety Endocrine Endocrinology: Denies polydipsia or polyuria Allergic/Immunologic Allergic/Immunologic ED: Denies urticaria EXAM Physical Exam Const Vital Signs: 03/09/21 06:17 Temperature 97.3 F L Temperature Source Temporal Pulse Rate 69 Respiratory Rate 18 Blood Pressure 170/69 H Blood Pressure Mean 102 Pulse Ox 98 Oxygen Delivery Method Room Air Positive well nourished and well developed General Appearance ED: well developed HEENT Reports normocephalic, head/scalp atraumatic and moist mucous membranes Negative for trauma or tenderness Eyes PERRL and EOMs intact bilaterally Neck no lymphadenopathy and supple General: Negative for tenderness Chest Wall inspection of chest normal Resp normal respiratory effort and clear to auscultation bilaterally Cardio regular rate, regular rhythm and no murmurs GI normal to inspection, nondistended, normoactive bowel sounds Palpation: Negative for tender, guarding or rebound tenderness present Back/Spine no CVA tenderness Cervical Spine: Negative for cervical spine tenderness Thoracic Spine / Upper Back: Negative for thoracic spinal tenderness Extremity normal to inspection General Extremety ED: Negative for tenderness Neuro oriented x3, CN's II-XII intact bilaterally and no sensory deficits noted Neuro Narrative: No focal deficits appreciated. Sensorium / Orientation: alert; Negative for orientation impaired or lethargic Motor Exam: strength 5/5 throughout; Negative for general weakness Psych mental status grossly normal Skin no rashes or lesions noted, no wounds and skin turgor normal MDM MDM MDM Narrative Medical decision making narrative: The patient presents with nausea, lightheadedness, generalized fatigue, and headache. Her exam is reassuring. She is not meningitic or encephalopathic. She states she could just not get comfortable and has been ambulating through her home at night. She states she feels like she cannot sleep. She was recently on antibiotics for diverticulitis, but stopped them. She thought that they may be contributing to her symptoms. I did obtain noncontrast head CT. This was negative for acute process. Screening labs were relatively unremarkable, except for the patient's sodium. She is hyponatremic with a sodium of 121. At this time, I do feel the patient is going to require admission given her rather significant hyponatremia and generalized weakness. Patient was discussed with the hospitalist. Impression 1. Hyponatremia 2. Generalized weakness 3. Headache Lab Data Attestation: I reviewed the patient's lab results. Labs: Laboratory Results - last 24 hr 03/09/21 03/09/21 06:38 06:38 WBC 7.7 RBC 4.46 Hgb 12.8 Hct 36.9 L MCV 82.7 MCH 28.7 MCHC 34.7 RDW Std Deviation 35.2 RDW Coeff of Cami 11.6 Plt Count 399 MPV 9.0 Immature Gran % (Auto) 0.400 Neut % (Auto) 59.0 Lymph % (Auto) 23.6 [place] % (Auto) 12.4 H Eos % (Auto) 3.8 Baso % (Auto) 0.8 Absolute Neuts (auto) 4.5 Absolute Lymphs (auto) 1.81 Nucleated RBC % 0 Sodium 121 L Potassium 3.4 L Chloride 89 L Carbon Dioxide 23.0 Anion Gap 9 BUN 19 H Creatinine 1.32 H Estim Creat Clear Calc 27.67 Est GFR (MDRD) Af Amer 51 L Est GFR (MDRD) Non-Af 42 L BUN/Creatinine Ratio 14.4 Glucose 105 Calcium 9.1 Magnesium 2.1 Total Bilirubin 0.50 AST 25 ALT 20 Alkaline Phosphatase 109 Total Protein 7.8 Albumin 3.9 Globulin 3.9 Albumin/Globulin Ratio 1.0 Radiography Diagnostic Testing: Radiology Impression Brain CT 03/09/21 06:21 IMPRESSION: Mild atrophy no evidence of acute hemorrhage infarct or edema. Electronically Signed: Richelle Romero MD at 7:15 EDT Tel , Service support , Discharge Plan Triage Chief Complaint: Headache ED Provider: Clint El Dx/Rx/DC Orders Prescriptions: No Action meclizine 25 mg tablet 25 mg PO DAILY PRN (Reason: Vertigo) RF: 0 indapamide 1.25 mg tablet 1.25 mg PO QAM Qty: 90 RF: 3 potassium chloride 20 mEq tablet extended release 20 meq PO DAILY Qty: 90 RF: 3 levothyroxine 88 MCG tablet 88 mcg PO DAILY RF: 0 aspirin 81 MG tablet,chewable 81 mg PO DAILY@0800 RF: 0 losartan 100 MG tablet 100 mg PO DAILY RF: 0 gabapentin 300 mg capsule 300 mg PO QHS RF: 0 amlodipine 5 MG tablet 5 mg PO QHS RF: 0 labetalol 100 MG tablet 100 mg PO BID RF: 0 pantoprazole 40 MG tablet 40 mg PO DAILY RF: 0 biotin 1 MG capsule 1 mg PO DAILY RF: 0 Primary Care Provider: Jason Parker III
[2021-03-09] MEDS: Ondansetron 4 MG/2 ML Vial IV (06:37)
[2021-03-09 06:50] LABS: Absolute Lymphocyte Count 1.81 X10^3/uL (0.83-4.51); Absolute Neutrophil Count 4.5 X10^3/uL (2.0-7.7); Basophil# 0.06 X10^3/uL; Basophil% 0.8 % (0-1); Eosinophil# 0.29 X10^3/uL; Eosinophils% 3.8 % (0-5); Hematocrit 36.9 % (37-47); Hemoglobin 12.8 g/dL (12.0-15.0); Lymphocyte # 1.81 X10^3/ul (0.83-4.51); Lymphocyte % 23.6 % (19-41); Mean Corp Hgb Conc 34.7 g/dL (32-36); Mean Corpuscular Hgb 28.7 pg (27.0-32.0); Mean Corpuscular Volume 82.7 fL (81-99); Monocyte# 0.95 X10^3/uL; Monocyte% 12.4 % (0-10); NRBC Flagged by Analyzer 0 % (0-5); Neutrophil # 4.53 X10^3/uL (2.7-7.7); Platelet Count 399 K/mm3 (150-450); RBC Distribution Width CV 11.6 % (11.6-14.6); RBC Distribution Width SD 35.2 fl (35.1-43.9); Red Blood Count 4.46 M/mm3 (4.2-5.4); White Blood Count 7.7 K/mm3 (4.4-11.0)
[2021-03-09] MEDS: proCHLORPERazine 10 MG/2 ML Vial 5 MG IV (07:05)
[2021-03-09] MEDS: DiphenhydrAMINE 50 MG/ML Syringe 25 MG IV (07:06)
[2021-03-09 07:07] LABS: AST(SGOT) 25 U/L (15-37); Alanine Aminotransfer ALT/SGPT 20 U/L (13-56); Albumin, Serum 3.9 g/dL (3.2-5.0); Alkaline Phosphatase 109 U/L (45-117); Anion Gap 9 (5-15); BUN 19 mg/dL (7-18); BUN/Creat Ratio 14.4 RATIO (10-20); Calcium,Total 9.1 mg/dL (8.5-10.1); Chloride 89 mmol/L (98-107); Creatinine, Serum 1.32 mg/dL (0.55-1.02); EST Glomerular Filtration Rate 42 mL/min (>60); Est Glom Filt Rate - Afr Amer 51 mL/min (>60); Estimated Creatinine Clearance 27.67 ml/min; Globulin 3.9 g/dL (2.2-4.2); Glucose 105 mg/dL (74-106); Magnesium 2.1 mg/dL (1.6-2.6); Potassium 3.4 mmol/L (3.5-5.1); Protein, Total 7.8 g/dL (6.4-8.2); Sodium Level 121 mmol/L (136-145)
--- NOTE | 2021-03-09 07:37 | PCM.HP.STD ---
[facility] - General General Date of Admission: 03/09/21 Chief Complaint: Generalized weakness HPI Narrative ALBERTO STRICKLAND, is a 70 F who presents presents with generalized weakness. Patient states for the past 4 days she has not been feeling well. Report headache as well as neck pain. Patient apparently had her blood pressure medications adjusted as a result of fluid retention. She was placed on indapamide. As stated above she reports not feeling well for the past 4 days. She also reported being restless and experiencing insomnia. She also did complain of cramps in both lower extremity. She elected to present to the emergency department where her evaluation was consistent with severe hyponatremia with sodium levels of 122 subsequently admitted to monitored bed for further evaluation and management. [facility] Medical History (Updated 03/09/21 @ 08:40 by Pooja Hardwick) Abdominal pain CKD (chronic kidney disease), stage III Diverticulitis Diverticulosis Essential hypertension Former tobacco use GERD (gastroesophageal reflux disease) Hiatal hernia Hx of breast cancer Hyperlipidemia Hypokalemia Hyponatremia Obesity Home Medications aspirin 81 mg PO DAILY@0800 01/01/14 [History Last Taken 07/14/20 17:30] levothyroxine 88 mcg PO DAILY 01/01/14 [History Last Taken 07/14/20 07:30] losartan 100 mg PO DAILY 01/01/14 [History Last Taken 07/14/20 08:00] amlodipine 5 mg PO QHS 01/25/18 [History Last Taken 07/14/20 17:30] labetalol 100 mg PO BID 01/25/18 [History Last Taken 07/14/20 17:30] pantoprazole 40 mg PO DAILY 01/25/18 [History Last Taken 07/14/20 08:00] biotin 1 mg PO DAILY 07/06/18 [History Last Taken 07/14/20 08:00] meclizine 25 mg tablet 25 mg PO DAILY PRN 07/01/19 [History Last Taken 07/12/20 03:00] gabapentin 300 mg capsule 300 mg PO QHS cap 09/04/19 [History Last Taken 07/13/20 22:00] indapamide 1.25 mg tablet 1.25 mg PO QAM #90 tablet 02/09/21 [Rx Last Taken Unknown] potassium chloride 20 mEq tablet,extended release 20 meq PO DAILY #90 tablet 02/09/21 [Rx Last Taken Unknown] Allergy/AdvReac Type Severity Reaction Status Date / Time hydrochlorothiazide Allergy Intermediate rash Verified 03/09/21 06:21 lisinopril AdvReac Intermediate cough Verified 03/09/21 06:21 atorvastatin [From Lipitor] AdvReac Unknown unknown Verified 03/09/21 06:21 spironolactone AdvReac Unknown unknown Verified 03/09/21 06:21 Beta-Blockers AdvReac cough Verified 03/09/21 06:21 (Beta-Adrenergic Bloc codeine AdvReac Intolerance Verified 03/09/21 06:21 perindopril [From Aceon] AdvReac rash,cough Verified 03/09/21 06:21 Family History Mother Diabetes Heart disease Hypertension CVA (cerebral vascular accident) Sister Hypertension Heart disease Brother Heart disease Hypertension Surgical History History of carpal tunnel release of both wrists History of colonoscopy (11/2018) History of left heart catheterization (2015) History of right and left heart catheterization (08/16/19) Hx of cholecystectomy Hx of esophagogastroduodenoscopy Hx of eye surgery Hx of repair of right rotator cuff Hx of tubal ligation Social History Smoking Status: Former smoker alcohol intake: current alcohol intake frequency: holidays/special occasions only substance use type: does not use caffeine: No what type of physical activity do you participate in: none frequency: does not exercise ROS ROS Narrative GENERAL: denies fever, chills, night sweats, HEENT: headache, sinus congestion, or drainage RESPIRATORY: denies cough, sputum production, CARDIAC: denies chest pain, palpitations, orthopnea, GASTROINTESTINAL: denies abdominal pain, nausea, GENITOURINARY: denies dysuria, urgency, frequency, EXTREMITY: denies swelling MUSCULOSKELETAL: denies current joint pain or tenderness NEUROLOGIC: denies focal numbness, weakness, tingling HEMATOLOGIC: denies easy bruising and/or hemorrhage INTEGUMENT: denies rashes PSYCHIATRIC: denies suicidal or homicidal ideation Vital Signs Vital Signs Vital Signs: 03/09/21 06:17 Temperature 97.3 F L Temperature Source Temporal Pulse Rate 69 Respiratory Rate 18 Blood Pressure 170/69 H Blood Pressure Mean 102 Pulse Ox 98 Oxygen Delivery Method Room Air Physical Exam Narrative GENERAL: Patient appears restless HEENT: Atraumatic; EYES; Anicteric, Normal Conjunctiva NECK; supple, normal thyroid, RESPIRATORY: Diminished to auscultation CARDIOVASCULAR: Regular S1 S2, GI: soft, normoactive bowel sounds, : No Renal angle tenderness; EXTREMITIES: No edema, no clubbing, MUSCULOSKELETAL: no muscle waisting NEURO: Awake; no lateralizing signs. SKIN: No Rash PSYCH; Flat affect Lab / Micro Data Result Diagrams: 03/09/21 06:38 03/09/21 06:38 Labs: Laboratory Results - last 24 hr 03/09/21 03/09/21 06:38 06:38 WBC 7.7 RBC 4.46 Hgb 12.8 Hct 36.9 L MCV 82.7 MCH 28.7 MCHC 34.7 RDW Std Deviation 35.2 RDW Coeff of Cami 11.6 Plt Count 399 MPV 9.0 Immature Gran % (Auto) 0.400 Neut % (Auto) 59.0 Lymph % (Auto) 23.6 [place] % (Auto) 12.4 H Eos % (Auto) 3.8 Baso % (Auto) 0.8 Absolute Neuts (auto) 4.5 Absolute Lymphs (auto) 1.81 Nucleated RBC % 0 Sodium 121 L Potassium 3.4 L Chloride 89 L Carbon Dioxide 23.0 Anion Gap 9 BUN 19 H Creatinine 1.32 H Estim Creat Clear Calc 27.67 Est GFR (MDRD) Af Amer 51 L Est GFR (MDRD) Non-Af 42 L BUN/Creatinine Ratio 14.4 Glucose 105 Calcium 9.1 Magnesium 2.1 Total Bilirubin 0.50 AST 25 ALT 20 Alkaline Phosphatase 109 Total Protein 7.8 Albumin 3.9 Globulin 3.9 Albumin/Globulin Ratio 1.[address] 03/09/21 06:21 IMPRESSION: Mild atrophy no evidence of acute hemorrhage infarct or edema. Electronically Signed: Richelle Romero MD at 7:15 EDT Tel , Service support , Assessment & Plan Assessment/Plan (1) Hyponatremia: Status: Resolved Code(s): E87.1 - Hypo-osmolality and hyponatremia (2) Essential hypertension: Status: Chronic Code(s): I10 - Essential (primary) hypertension (3) Hypokalemia: Status: Acute Code(s): E87.6 - Hypokalemia Plan: Patient is a 70-year-old lady with past medical history segment for essential hypertension with recent adjustments in her antihypertensive regimen who presented with headache, generalized weakness and restlessness. Was found to have sodium levels of 122 admitted to monitored bed for further management 1. Hyponatremia -Attributed to patient being on thiazide diuretics indapamide. Suspected offending medications discontinued admitted to monitored bed started on saline with serial monitoring of electrolyte. As part of patient's evaluation ordered urine sodium level serum and urine osmolality 2. Hypokalemia ?Secondary to patient being on diuretics; current corrected per protocol 3. Accelerated hypertension ?Discontinue patient home meds except for indapamide in view of her presentation. Added hydralazine scheduled as well as as needed for systolic blood pressure greater than 160 4. Dyslipidemia -Managed with diet patient apparently allergic to statins 5. Hiatal hernia with significant GERD ?Patient is on PPI did continue 6. Hypothyroidism - Patient is on levothyroxine home dose continued 7. History of recurrent diverticulitis ?Currently asymptomatic 8. History of breast CA -currently in remission 9. Obesity with BMI of 33.2 ?Weight loss advised 10. DVT prophylaxis ?Lovenox Advance planning; did discuss with the patient and family (patient's daughter) regarding advanced directives as well as CODE STATUS. Did explain the various scenarios involved ( FULL CODE, DNR CCA, DNR CCA with no intubation, and DNR CC and what each meant) patient elected to full code with CPR with intubation if needed. Order was placed. Time spent on discussion 18 minutes. Visit Charges Inpatient E&M: 09227 Init Hosp L3 Procedures Hospitalists Procedures: 55889 Advncd Care Plan 30 Min
--- NOTE | 2021-03-09 07:40 | NURSING ---
[id number] KITTOE HYPONATREMIA
--- NOTE | 2021-03-09 07:41 | NURSING ---
DR WALKER IN ROOM
[2021-03-09 08:07] LABS: Mucous, Urine 0 SEEN /hpf (<or=2+); Red Blood Cells-Urine 0 SEEN /hpf (0-5)
[2021-03-09 08:13] LABS: Color, Urine Straw (Yellow); Glucose, Dipstick Normal (Normal); Ketone-Dipstick Negative (Negative); Leukocyte Esterase-Dipstick 100 /ul (Negative); Nitrite-Dipstick Negative (Negative); Occult Blood-Urine Negative /ul (Negative); Protein-Dipstick Negative (Negative); Urine Bilirubin Dipstick Negative (Negative); Urine Clarity Clear (Clear); Urine Urobilinogen Normal (Normal); Urine pH 6.5 (5.0 - 8.0)
[2021-03-09 08:24] LABS: Bacteria 1+ /hpf (None Seen); Squamous Epithelial Cells - UA 0-5 SEEN /hpf (5-10); White Blood Cells 0-5 SEEN /hpf (0-5)
[2021-03-09 08:25] LABS: Renal Epithelial Cells 0-5 SEEN /hpf (0-5)
[2021-03-09 08:43] LABS: Osmolality, Urine 216 mOsm/KG
[2021-03-09 08:44] LABS: Urine Sodium 41 mmol/L (Not Establ.)
[2021-03-09 08:44] LABS: Osmolality, Serum 252 mOsm/KG (280-301)
[2021-03-09] MEDS: Pantoprazole Sodium 40 MG Tablet PO (09:26)
[2021-03-09] MEDS: Enoxaparin 40 MG/0.4 ML Syringe SC (09:26)
[2021-03-09] MEDS: Potassium Chloride Oral Tablet 20 MEQ PO ×2 (09:26→16:24)
[2021-03-09] MEDS: Aspirin 81 MG TAB.CHEW PO (09:26)
[2021-03-09] MEDS: 0.9% Normal Saline 1,000 ML 150 ML IV ×3 (09:26→21:36)
[2021-03-09] MEDS: Acetaminophen 325 MG Tablet 650 MG PO (09:26)
[2021-03-09] MEDS: Losartan Potassium 100 MG Tablet PO (09:39)
[2021-03-09] MEDS: Labetalol 100 MG Tablet PO ×2 (09:39→20:37)
[2021-03-09 09:45] LABS: Anion Gap 8 (5-15); BUN 17 mg/dL (7-18); BUN/Creat Ratio 14.3 RATIO (10-20); Calcium,Total 8.7 mg/dL (8.5-10.1); Chloride 94 mmol/L (98-107); Creatinine, Serum 1.19 mg/dL (0.55-1.02); EST Glomerular Filtration Rate 47 mL/min (>60); Est Glom Filt Rate - Afr Amer 57 mL/min (>60); Estimated Creatinine Clearance 30.69 ml/min; Glucose 106 mg/dL (74-106); Potassium 3.2 mmol/L (3.5-5.1); Sodium Level 126 mmol/L (136-145)
[2021-03-09] MEDS: proMETHazine 25 MG/ML Syringe 12.5 MG IM ×2 (10:10→16:18)
[2021-03-09] MEDS: Ketorolac 15 MG/ML Vial IM ×2 (10:10→16:20)
--- NOTE | 2021-03-09 11:00 | CASEMGMT ---
LOLI ESCAMILLA assessment: Face to Face with patient for initial transition planning/care coordination assessment. LOLI ESCAMILLA introduced self and role at [facility], pt voices understanding and consents to assessment. Pt is lying in bed in no distress. Pt is A/Ox4 and answers all questions appropriately. Care providers, pharmacy, and demographics verified. Presentation: Pt c/o [place] x3 weeks and has not been able to sleep for several days. Pt states is also being treated for diverticulitis Admitting dx: Hyponatremia PCP: [facility] Specialists: Pt states no current specialists. Preferred Pharmacy: [facility] mail order Insurance: [facility] Prescription Benefit: [facility] Living Will/HPOA: Pt states has LW/HPOA and is aware that they are not on file at [facility]. Pt states her daughter, Abbi Huang, is HPOA. LNOK: Abbi Huang Living Arrangements: Pt states lives with daughter, Abbi Huang, in 1 story home with 3 steps in and states no concerns at home. Pt states is independent with ADL's. Transportation: Pt states drives self and states no transportation concerns. DME/HHC: Pt states no current DME or need for any. Pt states no hx of HHC or SNF. Pt states no concerns with going home at time of discharge. Pt states is retired. Pt states does not smoke cigarettes or drink ETOH. Pt states no further concerns/needs. CM to follow for any further discharge planning/needs. Advised pt to ask for CM if any further questions/concerns/needs arise, voices understanding. Pt Goal: Home Plan[place] LOLI ESCAMILLA
[2021-03-09] MEDS: Ciprofloxacin 500 MG Tablet PO ×2 (11:51→20:38)
[2021-03-09 12:43] LABS: Anion Gap 9 (5-15); BUN 14 mg/dL (7-18); BUN/Creat Ratio 12.5 RATIO (10-20); Calcium,Total 8.5 mg/dL (8.5-10.1); Chloride 94 mmol/L (98-107); Creatinine, Serum 1.12 mg/dL (0.55-1.02); EST Glomerular Filtration Rate 51 mL/min (>60); Est Glom Filt Rate - Afr Amer 61 mL/min (>60); Estimated Creatinine Clearance 32.61 ml/min; Glucose 106 mg/dL (74-106); Potassium 3.1 mmol/L (3.5-5.1); Sodium Level 125 mmol/L (136-145)
[2021-03-09] MEDS: Ensure Clear 120 ML Liquid PO ×3 (15:14→20:38)
--- NOTE | 2021-03-09 16:09 | CPS ---
i.s. given to patient, patient unable to do at current time due to pain
[2021-03-09 17:35] LABS: Anion Gap 10 (5-15); BUN 14 mg/dL (7-18); BUN/Creat Ratio 12.4 RATIO (10-20); Calcium,Total 8.5 mg/dL (8.5-10.1); Chloride 96 mmol/L (98-107); Creatinine, Serum 1.13 mg/dL (0.55-1.02); EST Glomerular Filtration Rate 50 mL/min (>60); Est Glom Filt Rate - Afr Amer 61 mL/min (>60); Estimated Creatinine Clearance 32.32 ml/min; Glucose 105 mg/dL (74-106); Potassium 2.9 mmol/L (3.5-5.1); Sodium Level 128 mmol/L (136-145)
[2021-03-09] MEDS: Potassium Chloride 10mEq/100mL 10 MEQ/100 ML IV.SOLN. 100 MEQ IV BOLUS ×4 (18:34→21:33)
[2021-03-09] MEDS: Gabapentin 300 MG Capsule PO (20:37)
[2021-03-09] MEDS: amLODIPine 5 MG Tablet PO (20:37)
--- NOTE | 2021-03-09 20:46 | NURSING ---
Patient requested evening medications early while this RN was in the room.
[2021-03-09 20:51] LABS: Anion Gap 6 (5-15); BUN 14 mg/dL (7-18); BUN/Creat Ratio 13.1 RATIO (10-20); Calcium,Total 8.2 mg/dL (8.5-10.1); Chloride 100 mmol/L (98-107); Creatinine, Serum 1.07 mg/dL (0.55-1.02); EST Glomerular Filtration Rate 53 mL/min (>60); Est Glom Filt Rate - Afr Amer 65 mL/min (>60); Estimated Creatinine Clearance 34.14 ml/min; Glucose 122 mg/dL (74-106); Potassium 3.5 mmol/L (3.5-5.1); Sodium Level 129 mmol/L (136-145)
[2021-03-09] MEDS: Ketorolac 15 MG/ML Vial IV (23:09)
[2021-03-10 03:00] VITALS: BP 140/68; PULSE 61; PULSE 83; RESP 16; TEMP 36.8; O2SAT 96
[2021-03-10] MEDS: 0.9% Normal Saline 1,000 ML 150 ML IV ×2 (03:56→09:27)
[2021-03-10] MEDS: Levothyroxine 88 MCG Tablet PO (06:27)
[2021-03-10 06:31] LABS: Absolute Lymphocyte Count 1.96 X10^3/uL (0.83-4.51); Absolute Neutrophil Count 2.7 X10^3/uL (2.0-7.7); Basophil# 0.09 X10^3/uL; Basophil% 1.5 % (0-1); Eosinophil# 0.29 X10^3/uL; Hematocrit 30.9 % (37-47); Hemoglobin 10.5 g/dL (12.0-15.0); Lymphocyte # 1.96 X10^3/ul (0.83-4.51); Lymphocyte % 33.7 % (19-41); Mean Corpuscular Hgb 28.8 pg (27.0-32.0); Mean Corpuscular Volume 84.9 fL (81-99); Mean Platelet Vol. 8.9 fl (6.2-12.0); Monocyte# 0.82 X10^3/uL; Monocyte% 14.1 % (0-10); NRBC Flagged by Analyzer 0 % (0-5); Neutrophil # 2.65 X10^3/uL (2.7-7.7); Neutrophil % 45.7 % (47-70); Platelet Count 349 K/mm3 (150-450); RBC Distribution Width CV 11.9 % (11.6-14.6); RBC Distribution Width SD 36.6 fl (35.1-43.9); Red Blood Count 3.64 M/mm3 (4.2-5.4); White Blood Count 5.8 K/mm3 (4.4-11.0)
[2021-03-10 06:40] VITALS: PULSE 62
[2021-03-10 07:20] VITALS: O2SAT 96
[2021-03-10] MEDS: Aspirin 81 MG TAB.CHEW PO (07:29)
[2021-03-10] MEDS: Potassium Chloride Oral Tablet 20 MEQ PO (07:29)
[2021-03-10 09:23] VITALS: BP 132/46; PULSE 74; RESP 18; TEMP 36.4; O2SAT 97
[2021-03-10] MEDS: Pantoprazole Sodium 40 MG Tablet PO (09:26)
[2021-03-10] MEDS: Labetalol 100 MG Tablet PO (09:26)
[2021-03-10] MEDS: Ensure Clear 120 ML Liquid PO (09:26)
[2021-03-10] MEDS: Losartan Potassium 100 MG Tablet PO (09:26)
[2021-03-10] MEDS: Enoxaparin 40 MG/0.4 ML Syringe SC (09:26)
[2021-03-10] MEDS: Ciprofloxacin 500 MG Tablet PO (09:26)
[2021-03-10 10:54] LABS: Anion Gap 6 (5-15); BUN 11 mg/dL (7-18); BUN/Creat Ratio 11.9 RATIO (10-20); Chloride 104 mmol/L (98-107); Creatinine, Serum 0.92 mg/dL (0.55-1.02); EST Glomerular Filtration Rate 64 mL/min (>60); Est Glom Filt Rate - Afr Amer 77 mL/min (>60); Glucose 92 mg/dL (74-106); Magnesium 1.8 mg/dL (1.6-2.6); Phosphorus 2.5 mg/dL (2.5-4.9); Potassium 3.5 mmol/L (3.5-5.1); Sodium Level 133 mmol/L (136-145)
--- NOTE | 2021-03-10 11:43 | PCM.DC ---
Discharge Instructions Outpatient Procedure Reason For Visit: HYPONATREMIA Diet Discharge Diet: No restrictions Activity Discharge Activity: Return to Normal Activity Follow Up Care Please Follow Up With: Primary care provider When: Within the next 2 weeks. Test Results: Test results from this visit will be discussed in further detail at your follow-up appointment, if applicable. Discharge Plan Admission Admit Date/Time: 03/09/21 07:34 Primary Reason for Your Visit: Hyponatremia Attending Provider: Orlando Spann Primary Care Provider: Jason Parker III Instructions Patient Instructions: ED Chest Pain, Noncardiac Discharge Orders/Prescriptions Prescriptions: Continued meclizine 25 mg tablet 25 mg PO DAILY PRN (Reason: Vertigo) RF: 0 potassium chloride 20 mEq tablet extended release 20 meq PO DAILY Qty: 90 RF: 3 levothyroxine 88 MCG tablet 88 mcg PO DAILY RF: 0 aspirin 81 MG tablet,chewable 81 mg PO DAILY@0800 RF: 0 losartan 100 MG tablet 100 mg PO DAILY RF: 0 gabapentin 300 mg capsule 300 mg PO QHS RF: 0 amlodipine 5 MG tablet 5 mg PO QHS RF: 0 labetalol 100 MG tablet 100 mg PO BID RF: 0 pantoprazole 40 MG tablet 40 mg PO DAILY RF: 0 biotin 1 MG capsule 1 mg PO DAILY RF: 0 Discontinued indapamide 1.25 mg tablet 1.25 mg PO QAM Qty: 90 RF: 3 Referrals: Jason Parker III, MD [Primary Care Provider] - Disposition Disposition (needs filled in before D/C Order can be placed): Home, self care
--- NOTE | 2021-03-10 12:24 | PHA.DC.MR ---
Pharmacy Service has performed discharge medication reconciliation for this patient. No new medications at time of medication review. Medications reviewed are from previously reported home medications. Home Medications aspirin 81 mg PO DAILY@0800 01/01/14 levothyroxine 88 mcg PO DAILY 01/01/14 losartan 100 mg PO DAILY 01/01/14 amlodipine 5 mg PO QHS 01/25/18 labetalol 100 mg PO BID 01/25/18 pantoprazole 40 mg PO DAILY 01/25/18 biotin 1 mg PO DAILY 07/06/18 meclizine 25 mg tablet 25 mg PO DAILY PRN 07/01/19 gabapentin 300 mg capsule 300 mg PO QHS cap 09/04/19 potassium chloride 20 mEq tablet,extended release 20 meq PO DAILY #90 tablet 02/09/21 The patient's discharge medication list was reviewed for discrepancies and discrepancies were resolved.
[2021-03-10 13:47] LABS: Anion Gap 6 (5-15); BUN 11 mg/dL (7-18); BUN/Creat Ratio 10.6 RATIO (10-20); Calcium,Total 8.1 mg/dL (8.5-10.1); Chloride 107 mmol/L (98-107); Creatinine, Serum 1.04 mg/dL (0.55-1.02); EST Glomerular Filtration Rate 55 mL/min (>60); Est Glom Filt Rate - Afr Amer 67 mL/min (>60); Estimated Creatinine Clearance 35.12 ml/min; Glucose 119 mg/dL (74-106); Potassium 3.3 mmol/L (3.5-5.1); Sodium Level 136 mmol/L (136-145)
--- NOTE | 2021-03-10 14:08 | DS.PCM_ITS ---
Providers Date of Admission: 03/09/21 Primary Care Physician: Dr. Jason Parker III, MD Reason For Visit: HYPONATREMIA Diagnosis Discharge Diagnosis (1) Hyponatremia: Status: Resolved Code(s): E87.1 - Hypo-osmolality and hyponatremia (2) Essential hypertension: Status: Chronic Code(s): I10 - Essential (primary) hypertension (3) Hypokalemia: Status: Acute Code(s): E87.6 - Hypokalemia Medications at Discharge Home Medications aspirin 81 mg PO DAILY@0800 01/01/14 levothyroxine 88 mcg PO DAILY 01/01/14 losartan 100 mg PO DAILY 01/01/14 amlodipine 5 mg PO QHS 01/25/18 labetalol 100 mg PO BID 01/25/18 pantoprazole 40 mg PO DAILY 01/25/18 biotin 1 mg PO DAILY 07/06/18 meclizine 25 mg tablet 25 mg PO DAILY PRN 07/01/19 gabapentin 300 mg capsule 300 mg PO QHS cap 09/04/19 potassium chloride 20 mEq tablet,extended release 20 meq PO DAILY #90 tablet 02/09/21 Hospital Course Summary of Care Provided Minutes Spent on Discharge: 35 Hospital Course: Patient is a 70-year-old female who was admitted to [facility] on 03/09/2021 with a chief complaint of generalized weakness. Patient recently had her hypertensive meds readjusted and indapamide was added to her regimen. This is most likely because of the patient's low sodium on admission. Indapamide was held and normal saline was gently infused. Sodium c urrently 136. Patient will be discharged home today. 1) Hyponatremia Resolved, currently 136. Most likely related to indapamide as above. Plan; indapamide discontinued on discharge, follow-up with primary care provider within the next 2 weeks. 2) Hypokalemia Most likely related to patient being on diuretics. Potassium replaced. Plan; as above. 3) Accelerated hypertension Plan; as above. 4) Dyslipidemia Not on statins as patient reports she is allergic. Plan; continue therapeutic lifestyle management. 5) Hiatal hernia with significant GERD Continue PPI. 6) Hypothyroidism Continue levothyroxine. 7) History of recurrent diverticulitis Stable. 8) History of breast CA Stable, currently remission. 9) Obesity with BMI of 33.2 Weight loss advised. Patient seen by Emeka Pa PA-C, under the supervision of Dr. Spann. Physical Exam Narrative Patient is a 70-year-old female comfortably resting in bed, alert and oriented x3. Patient denies any change in symptoms from yesterday or progression of symptoms. Denies chest pain, shortness of breath, palpitations, fever, chills, N/V/D. Const alert, oriented x3 and no apparent distress HEENT normocephalic, head/scalp atraumatic and hearing grossly normal bilaterally Eyes EOMs intact bilaterally Neck supple and no JVD Resp normal respiratory effort, no retractions and no use of accessory muscles Cardio regular rate, regular rhythm, no murmurs and no JVD GI normal to inspection, nondistended, normoactive bowel sounds, soft to palpation and non-tender Extremity normal to inspection, full ROM and no clubbing, cyanosis or edema Skin no rashes or lesions noted, no wounds and skin turgor normal Neuro CN's II-XII intact bilaterally Psych affect normal ABG / Lab / Microbiology Data Result Diagrams: 03/10/21 06:05 03/10/21 12:34 Laboratory: Laboratory Results - last 24 hr 03/09/21 03/09/21 03/10/21 16:40 20:28 06:05 WBC RBC Hgb Hct MCV MCH MCHC RDW Std Deviation RDW Coeff of Cami Plt Count MPV Immature Gran % (Auto) Neut % (Auto) Lymph % (Auto) [place] % (Auto) Eos % (Auto) Baso % (Auto) Absolute Neuts (auto) Absolute Lymphs (auto) Nucleated RBC % Sodium 128 L 129 L 133 L Potassium 2.9 L 3.5 3.5 Chloride 96 L 100 104 Carbon Dioxide 22.0 23.0 23.0 Anion Gap 10 6 6 BUN 14 14 11 Creatinine 1.13 H 1.07 H 0.92 Estim Creat Clear Calc 32.32 34.14 39.70 Est GFR (MDRD) Af Amer 61 65 77 Est GFR (MDRD) Non-Af 50 L 53 L 64 BUN/Creatinine Ratio 12.4 13.1 11.9 Glucose 105 122 H 92 Calcium 8.5 8.2 L 8.0 L Phosphorus 2.5 Magnesium 1.8 03/10/21 03/10/21 06:05 12:34 WBC 5.8 RBC 3.64 L Hgb 10.5 L Hct 30.9 L MCV 84.9 MCH 28.8 MCHC 34.0 RDW Std Deviation 36.6 RDW Coeff of Cami 11.9 Plt Count 349 MPV 8.9 Immature Gran % (Auto) 0.000 Neut % (Auto) 45.7 L Lymph % (Auto) 33.7 [place] % (Auto) 14.1 H Eos % (Auto) 5.0 Baso % (Auto) 1.5 H Absolute Neuts (auto) 2.7 Absolute Lymphs (auto) 1.96 Nucleated RBC % 0 Sodium 136 Potassium 3.3 L Chloride 107 Carbon Dioxide 23.0 Anion Gap 6 BUN 11 Creatinine 1.04 H Estim Creat Clear Calc 35.12 Est GFR (MDRD) Af Amer 67 Est GFR (MDRD) Non-Af 55 L BUN/Creatinine Ratio 10.6 Glucose 119 H Calcium 8.1 L Phosphorus Magnesium D/C Instructions Discharge Diet: No restrictions Discharge Activity: Return to Normal Activity Please Follow Up With: Primary care provider When: Within the next 2 weeks. Meaningful Use Info Meaningful Use Diagnoses (Choose all that apply): None applicable Discharge Plan Admission Admit Date/Time: 03/09/21 07:34 Primary Reason for Your Visit: Hyponatremia Attending Provider: Orlando Spann Primary Care Provider: Jason Parker III Instructions Patient Instructions: ED Chest Pain, Noncardiac Discharge Orders/Prescriptions Prescriptions: Continued meclizine 25 mg tablet 25 mg PO DAILY PRN (Reason: Vertigo) RF: 0 potassium chloride 20 mEq tablet extended release 20 meq PO DAILY Qty: 90 RF: 3 levothyroxine 88 MCG tablet 88 mcg PO DAILY RF: 0 aspirin 81 MG tablet,chewable 81 mg PO DAILY@0800 RF: 0 losartan 100 MG tablet 100 mg PO DAILY RF: 0 gabapentin 300 mg capsule 300 mg PO QHS RF: 0 amlodipine 5 MG tablet 5 mg PO QHS RF: 0 labetalol 100 MG tablet 100 mg PO BID RF: 0 pantoprazole 40 MG tablet 40 mg PO DAILY RF: 0 biotin 1 MG capsule 1 mg PO DAILY RF: 0 Discontinued indapamide 1.25 mg tablet 1.25 mg PO QAM Qty: 90 RF: 3 Referrals: Jason Parker III, MD [Primary Care Provider] - Disposition Disposition (needs filled in before D/C Order can be placed): Home, self care
[2021-03-10] MEDS: Potassium Chloride Oral Tablet 20 MEQ 40 MEQ PO (14:17)
== END 2021-03-10 14:23 | disposition home or self-care (01) | DRG 641 ==
LOC: ED 06:58 → ICU 07:42 → PCU 13:40
PROVIDERS: Physician Assistant; Admitting Provider Internal Medicine; Emergency Provider Emergency Medicine; PCP Family Medicine; Visit Provider Internal Medicine
DX: E87.1 Hypo-osmolality and hyponatremia (principal); K57.92 Diverticulitis of intestine, part unspecified, without perforation or abscess without bleeding; E87.6 Hypokalemia; T50.2X5A Adverse effect of carbonic-anhydrase inhibitors, benzothiadiazides and other diuretics, initial encounter; I10 Essential (primary) hypertension; E78.5 Hyperlipidemia, unspecified; K21.9 Gastro-esophageal reflux disease without esophagitis; K44.9 Diaphragmatic hernia without obstruction or gangrene; E03.9 Hypothyroidism, unspecified; Z85.3 Personal history of malignant neoplasm of breast; E66.9 Obesity, unspecified; Z68.33 Body mass index [BMI] 33.0-33.9, adult; Z87.891 Personal history of nicotine dependence; Z79.899 Other long term (current) drug therapy
CPT/HCPCS: 36415; 70450; 80048; 80053; 81001; 83735; 83930; 83935; 84100; 84300; 85025; 97802; 99251; 99285; J7030; A4216; G0463; J2405

== ENCOUNTER 2021-03-30 01:22 | Inpatient (IN) | payer MEDICARE, SELFPAY ==
[2021-03-09 08:29] VITALS: BMI 33.4
[2021-03-30] VITALS (13 sets, daily range): BP systolic 139–168; BP diastolic 48–64; PULSE 60–75; RESP 16–18; TEMP 36.4–36.8; O2SAT 95–98; BMI 29.0; BMI 32.9
--- NOTE | 2021-03-30 01:40 | CT_ITS ---
STUDY: CT ABDOMEN AND PELVIS WITHOUT CONTRAST REASON FOR EXAM: Female, 70 years old. Pain RADIATION DOSAGE (If Supplied By Facility): CTDIvol = ( 12.35 ) mGy, DLP = ( 567.91 ) mGycm TECHNIQUE: Transaxial images were obtained from the dome of the diaphragm to the symphysis pubis without oral contrast, and without intravenous contrast. Sagittal and coronal images were reconstructed. Individualized dose optimization techniques were used for this CT. COMPARISON: None. FINDINGS: The visualized lung bases are unremarkable. The visualized portions of the heart are within normal limits. Normal liver. There are surgical clips in the gallbladder fossa consistent with a prior cholecystectomy. There are multiple benign calcified granulomata of the spleen. Normal pancreas. Normal bilateral adrenal glands. Normal right kidney. Normal left kidney. Moderately sized hiatal hernia. Normal small intestine. There is diverticulosis, with thickening of the colon wall, and pericolonic inflammation changes consistent with acute diverticulitis. The appendix is visualized and appears normal. Normal abdominal aorta. Normal inferior vena cava. Normal retroperitoneum. Normal urinary bladder. There is atrophy of the uterus. Normal abdominal wall. Normal osseous structures. CT/Abdomen/Pelvis without Cont IMPRESSION: Acute uncomplicated sigmoid diverticulitis. Electronically Signed: Noah Woo DO at 2:52 EDT Tel , Service support ,
--- NOTE | 2021-03-30 01:41 | ED.VIS.GI ---
HPI HPI - GI History of Present Illness Chief Complaint: Abd Pain Detail of Chief Complaint: Abdominal pain that started this morning Informant: patient Abdominal Pain/Flank Pain Current Severity: 04/15 Maximum Severity: 08/15 Narrative Narrative: Patient presents with left-sided abdominal pain that started this morning. Patient believes its her diverticulitis acting up. Her last bout was in July 2020. Patient is scheduled to have a colonoscopy in 2 days. She denies fever. She denies blood in her stool or black tarry stool. She denies dysuria. [facility] Medical History (Updated 03/30/21 @ 03:[address] Di Thomas, DO) Abdominal pain CKD (chronic kidney disease), stage III Diverticulitis Diverticulosis Essential hypertension Former tobacco use GERD (gastroesophageal reflux disease) Hiatal hernia Hyperlipidemia Hypokalemia Hyponatremia Obesity Home Medications aspirin 81 mg PO DAILY@0800 01/01/14 [History Last Taken 07/14/20 17:30] levothyroxine 88 mcg PO DAILY 01/01/14 [History Last Taken 07/14/20 07:30] losartan 100 mg PO DAILY 01/01/14 [History Last Taken 07/14/20 08:00] amlodipine 5 mg PO QHS 01/25/18 [History Last Taken 07/14/20 17:30] labetalol 100 mg PO BID 01/25/18 [History Last Taken 07/14/20 17:30] pantoprazole 40 mg PO DAILY 01/25/18 [History Last Taken 07/14/20 08:00] biotin 1 mg PO DAILY 07/06/18 [History Last Taken 07/14/20 08:00] meclizine 25 mg tablet 25 mg PO DAILY PRN 07/01/19 [History Last Taken 07/12/20 03:00] gabapentin 300 mg capsule 300 mg PO QHS cap 09/04/19 [History Last Taken 07/13/20 22:00] potassium chloride 20 mEq tablet,extended release 20 meq PO DAILY #90 tablet 02/09/21 [Rx Last Taken Unknown] Allergy/AdvReac Type Severity Reaction Status Date / Time hydrochlorothiazide Allergy Intermediate rash Verified 03/30/21 01:27 lisinopril AdvReac Intermediate cough Verified 03/30/21 01:27 atorvastatin [From Lipitor] AdvReac Unknown unknown Verified 05/25/21 01:27 spironolactone AdvReac Unknown unknown Verified 03/30/21 01:27 Beta-Blockers AdvReac cough Verified 03/30/21 01:27 (Beta-Adrenergic Bloc codeine AdvReac Intolerance Verified 03/30/21 01:27 perindopril [From Aceon] AdvReac rash,cough Verified 03/30/21 01:27 Family History Mother Diabetes Heart disease Hypertension CVA (cerebral vascular accident) Sister Hypertension Heart disease Brother Heart disease Hypertension Surgical History History of carpal tunnel release of both wrists History of colonoscopy (11/2018) History of left heart catheterization (2015) History of right and left heart catheterization (08/16/19) Hx of cholecystectomy Hx of esophagogastroduodenoscopy Hx of eye surgery Hx of repair of right rotator cuff Hx of tubal ligation Social History Smoking Status: Former smoker alcohol intake: current alcohol intake frequency: holidays/special occasions only substance use type: does not use caffeine: No what type of physical activity do you participate in: none frequency: does not exercise ROS ROS ED Constitutional Constitutional ED: Reports systems reviewed and no addt'l complaints, except as documented; Denies body ache(s), change in weight or chills Eyes Eyes: Denies acute decrease in peripheral vision, change in vision, double vision or loss of vision ENT ENT ED: Reports none; Denies ear pain, lip swelling, loss taste/smell, neck pain, otalgia or sore throat Cardiovascular Cardiovascular: Reports none; Denies abdominal pain, chest pain with activity, leg edema, lightheadedness, palpitations, rapid heart rate or syncope Respiratory/Chest Respiratory/Chest: Reports none; Denies change in mental status, dry cough, dyspnea, hemoptysis, shortness of breath at rest or shortness of breath with exertion Gastrointestinal Gastrointestinal: Reports none, abdominal pain and nausea; Denies change in stool character, diarrhea, hematemesis, hematochezia, melena, rectal bleeding or vomiting Genitourinary Genitourinary ED: Reports none; Denies abdominal discomfort, anuria, dysuria, genital pain or polyuria Musculoskeletal Musculoskeletal: Reports none; Denies arthralgias, back pain, difficulty walking, extremity pain, muscle weakness or myalgias Integumentary Reports none; Denies abscess or rash Neurologic Neurologic: Reports none; Denies abnormal gait, confusion, focal weakness, frequent falls, headache(s), loss of vision, numbness, paresthesias, radicular pain, vertigo or weakness Psychiatric Psychiatric: Reports systems reviewed and no addt'l complaints, except as documented and none; Denies behavioral changes, confusion, difficulty concentrating, hallucinations, suicidal ideation, tactile hallucinations or visual hallucinations Endocrine Endocrinology: Denies none, cold intolerance, excessive sweating, fatigue or heat intolerance Hematologic/Lymphatic Hematologic/Lymphatic: Reports none; Denies anemia, easy bleeding or easy bruising Allergic/Immunologic Allergic/Immunologic ED: Denies as per HPI, none, lip swelling, mouth swelling, throat swelling, tongue swelling or hives EXAM Physical Exam Const Vital Signs: 03/30/21 01:24 Temperature 97.8 F Temperature Source Oral Pulse Rate 75 Respiratory Rate 16 Blood Pressure 168/64 H Blood Pressure Mean 98 Pulse Ox 98 Oxygen Delivery Method Room Air Positive well nourished and well developed General Appearance ED: well developed and NAD HEENT Reports TM's clear and moist mucous membranes normocephalic and atraumatic; Negative for trauma or tenderness Tympanic Membrane ED: Yes TM's clear Eyes PERRL and EOMs intact bilaterally General Eye ED: Negative for pale conjunctiva or scleral icterus Neck no lymphadenopathy, supple and no JVD General: Negative for tenderness Chest Wall inspection of chest normal and palpation of chest normal Chest: Negative for tenderness Resp normal respiratory effort and clear to auscultation bilaterally Effort and Inspection: Negative for respiratory distress or pain with movement Auscultation: Negative for rhonchi, wheezes or diminished lung sounds Cardio regular rate, regular rhythm, S1 normal heart sound, S2 normal heart sound and no murmurs Peripheral Pulses: pulses 2+ throughout GI normal to inspection, nondistended, normoactive bowel sounds, soft to palpation, non-distended and no masses Palpation: soft and tender LLQ Back/Spine no CVA tenderness and no thoracic nor lumbar tenderness Extremity normal to inspection General Extremety ED: Negative for edema General Extremity: Negative for edema Neuro oriented x3, CN's II-XII intact bilaterally, no sensory deficits noted and gait normal Sensorium / Orientation: awake, alert, oriented to person, oriented to place and oriented to time Motor Exam: strength 5/5 throughout and strength abnormal Psych mental status grossly normal Skin no rashes or lesions noted and no wounds MDM MDM MDM Narrative Medical decision making narrative: Patient with evidence of uncomplicated diverticulitis. She was started on Cipro and Flagyl IV. She was given normal saline. Patient has a low sodium of 124 and will be admitted Lab Data Attestation: I reviewed the patient's lab results. Labs: Laboratory Results - last 24 hr 03/30/21 03/30/21 03/30/21 01:25 01:25 01:50 WBC 10.2 RBC 4.10 L Hgb 11.9 L Hct 35.3 L MCV 86.1 MCH 29.0 MCHC 33.7 RDW Std Deviation 38.6 RDW Coeff of Cami 12.2 Plt Count 405 MPV 9.3 Immature Gran % (Auto) 0.300 Neut % (Auto) 71.9 H Lymph % (Auto) 16.9 L [place] % (Auto) 8.3 Eos % (Auto) 2.0 Baso % (Auto) 0.6 Absolute Neuts (auto) 7.3 Absolute Lymphs (auto) 1.72 Nucleated RBC % 0 Sodium 124 L Potassium 3.7 Chloride 91 L Carbon Dioxide 24.0 Anion Gap 9 BUN 13 Creatinine 1.18 H Estim Creat Clear Calc 37.21 Est GFR (MDRD) Af Amer 58 L Est GFR (MDRD) Non-Af 48 L BUN/Creatinine Ratio 11.0 Glucose 107 H Calcium 9.3 Urine Color Yellow Urine Clarity Clear Urine pH 6.5 Ur Specific [place] 1.010 Urine Protein Negative Urine Glucose (UA) Normal Urine Ketones Negative Urine Occult Blood Negative Urine Nitrite Negative Urine Bilirubin Negative Urine Urobilinogen Normal Ur Leukocyte Esterase 100 H Urine RBC 0 SEEN Urine WBC 5-10 SEEN Ur Squamous Epith Cells 0-5 SEEN Urine Bacteria 0 SEEN Urine Mucus 0 SEEN Radiography Diagnostic Testing: Radiology Impression Abdomen/Pelvis CT 03/30/21 01:40 IMPRESSION: Acute uncomplicated sigmoid diverticulitis. Electronically Signed: Noah Woo DO at 2:52 EDT Tel , Service support , Discharge Plan Triage Chief Complaint: Abd Pain ED Provider: Di Thomas Dx/Rx/DC Orders Clinical Impression: Acute diverticulitis, Acute hyponatremia Prescriptions: No Action meclizine 25 mg tablet 25 mg PO DAILY PRN (Reason: Vertigo) RF: 0 potassium chloride 20 mEq tablet extended release 20 meq PO DAILY Qty: 90 RF: 3 levothyroxine 88 MCG tablet 88 mcg PO DAILY RF: 0 aspirin 81 MG tablet,chewable 81 mg PO DAILY@0800 RF: 0 losartan 100 MG tablet 100 mg PO DAILY RF: 0 gabapentin 300 mg capsule 300 mg PO QHS RF: 0 amlodipine 5 MG tablet 5 mg PO QHS RF: 0 labetalol 100 MG tablet 100 mg PO BID RF: 0 pantoprazole 40 MG tablet 40 mg PO DAILY RF: 0 biotin 1 MG capsule 1 mg PO DAILY RF: 0 Primary Care Provider: Evangelist Starr Referrals: Evangelist Starr MD [Primary Care Provider] - Disposition Disposition: Acute Care Hospital [facility]
[2021-03-30 01:47] LABS: Absolute Lymphocyte Count 1.72 X10^3/uL (0.83-4.51); Absolute Neutrophil Count 7.3 X10^3/uL (2.0-7.7); Basophil# 0.06 X10^3/uL; Basophil% 0.6 % (0-1); Hematocrit 35.3 % (37-47); Hemoglobin 11.9 g/dL (12.0-15.0); Lymphocyte # 1.72 X10^3/ul (0.83-4.51); Lymphocyte % 16.9 % (19-41); Mean Corp Hgb Conc 33.7 g/dL (32-36); Mean Corpuscular Volume 86.1 fL (81-99); Mean Platelet Vol. 9.3 fl (6.2-12.0); Monocyte# 0.84 X10^3/uL; Monocyte% 8.3 % (0-10); NRBC Flagged by Analyzer 0 % (0-5); Neutrophil # 7.33 X10^3/uL (2.7-7.7); Neutrophil % 71.9 % (47-70); Platelet Count 405 K/mm3 (150-450); RBC Distribution Width CV 12.2 % (11.6-14.6); RBC Distribution Width SD 38.6 fl (35.1-43.9); White Blood Count 10.2 K/mm3 (4.4-11.0)
[2021-03-30] MEDS: 0.9% Normal Saline 1,000 ML 125 ML IV ×4 (01:53→21:57)
[2021-03-30 01:56] LABS: Anion Gap 9 (5-15); BUN 13 mg/dL (7-18); Calcium,Total 9.3 mg/dL (8.5-10.1); Chloride 91 mmol/L (98-107); Creatinine, Serum 1.18 mg/dL (0.55-1.02); EST Glomerular Filtration Rate 48 mL/min (>60); Est Glom Filt Rate - Afr Amer 58 mL/min (>60); Estimated Creatinine Clearance 37.21 ml/min; Glucose 107 mg/dL (74-106); Potassium 3.7 mmol/L (3.5-5.1); Sodium Level 124 mmol/L (136-145)
[2021-03-30 01:58] LABS: Bacteria 0 SEEN /hpf (None Seen); Color, Urine Yellow (Yellow); Glucose, Dipstick Normal (Normal); Ketone-Dipstick Negative (Negative); Leukocyte Esterase-Dipstick 100 /ul (Negative); Mucous, Urine 0 SEEN /hpf (<or=2+); Nitrite-Dipstick Negative (Negative); Occult Blood-Urine Negative /ul (Negative); Protein-Dipstick Negative (Negative); Red Blood Cells-Urine 0 SEEN /hpf (0-5); Urine Bilirubin Dipstick Negative (Negative); Urine Clarity Clear (Clear); Urine Urobilinogen Normal (Normal); Urine pH 6.5 (5.0 - 8.0)
[2021-03-30 02:03] LABS: Squamous Epithelial Cells - UA 0-5 SEEN /hpf (5-10); White Blood Cells 5-10 SEEN /hpf (0-5)
[2021-03-30] MEDS: Ciprofloxacin 400 MG/200 ML BAG 200 MG IV ×3 (03:32→21:50)
--- NOTE | 2021-03-30 03:38 | PCM.HP.STD ---
HPI - General General Date of Admission: 03/30/21 HPI Narrative ALBERTO STRICKLAND, is a 70 F who presents to the emergency room with left lower quadrant abdominal pain. Onset of this pain was 3 days ago and has worsened since that time. Patient has significant past medical history of hyponatremia for which she was admitted and treated 1 month ago. At this time her sodium is again low at 124. She does admit to drinking perhaps excessive amounts of fluid but does not feel that she is excessively thirsty. The patient denies chest pain shortness of breath fever or chills and has not vomited at this time. She does have plans to have abdominal surgery to remove the portion of her colon that is subject to this recurrent diverticulitis. Patient was started on ciprofloxacin and Flagyl in the emergency room and will be admitted and continued on those medications. [facility] Medical History (Updated 03/30/21 @ 03:[address] Di Thomas, ) Abdominal pain CKD (chronic kidney disease), stage III Diverticulitis Diverticulosis Essential hypertension Former tobacco use GERD (gastroesophageal reflux disease) Hiatal hernia Hyperlipidemia Hypokalemia Hyponatremia Obesity Home Medications aspirin 81 mg PO DAILY@0800 01/01/14 [History Last Taken 07/14/20 17:30] levothyroxine 88 mcg PO DAILY 01/01/14 [History Last Taken 07/14/20 07:30] losartan 100 mg PO DAILY 01/01/14 [History Last Taken 07/14/20 08:00] amlodipine 5 mg PO QHS 01/25/18 [History Last Taken 07/14/20 17:30] labetalol 100 mg PO BID 01/25/18 [History Last Taken 07/14/20 17:30] pantoprazole 40 mg PO DAILY 01/25/18 [History Last Taken 07/14/20 08:00] biotin 1 mg PO DAILY 07/06/18 [History Last Taken 07/14/20 08:00] meclizine 25 mg tablet 25 mg PO DAILY PRN 07/01/19 [History Last Taken 07/12/20 03:00] gabapentin 300 mg capsule 300 mg PO QHS cap 09/04/19 [History Last Taken 07/13/20 22:00] furosemide [Lasix] 20 mg PO DAILY 03/30/21 [History Last Taken Unknown] gemfibrozil 600 mg PO QHS 03/30/21 [History Last Taken Unknown] potassium chloride 80 meq PO DAILY 03/30/21 [History Last Taken Unknown] Allergy/AdvReac Type Severity Reaction Status Date / Time hydrochlorothiazide Allergy Intermediate rash Verified 03/30/21 01:27 lisinopril AdvReac Intermediate cough Verified 03/30/21 01:27 atorvastatin [From Lipitor] AdvReac Unknown unknown Verified 03/30/21 01:27 spironolactone AdvReac Unknown unknown Verified 03/30/21 01:27 Beta-Blockers AdvReac cough Verified 03/30/21 01:27 (Beta-Adrenergic Bloc codeine AdvReac Intolerance Verified 03/30/21 01:27 perindopril [From Aceon] AdvReac rash,cough Verified 03/30/21 01:27 Family History Mother Diabetes Heart disease Hypertension CVA (cerebral vascular accident) Sister Hypertension Heart disease Brother Heart disease Hypertension Surgical History History of carpal tunnel release of both wrists History of colonoscopy (11/2018) History of left heart catheterization (2015) History of right and left heart catheterization (08/16/19) Hx of cholecystectomy Hx of esophagogastroduodenoscopy Hx of eye surgery Hx of repair of right rotator cuff Hx of tubal ligation Social History Smoking Status: Former smoker alcohol intake: current alcohol intake frequency: holidays/special occasions only substance use type: does not use caffeine: No what type of physical activity do you participate in: none frequency: does not exercise ROS Constitutional Constitutional: Reports anorexia and fatigue Eyes Eyes: Denies change in vision ENT HEENT: Denies abnormal hearing Cardiovascular Cardiovascular: Denies chest pain Respiratory/Chest Respiratory/Chest: Denies shortness of breath at rest Gastrointestinal Gastrointestinal: Reports abdominal pain; Denies diarrhea, hematochezia or nausea Genitourinary Genitourinary: Denies hematuria Musculoskeletal Musculoskeletal: Denies back pain Integumentary Integumentary: Denies dry skin Neurologic Neurologic: Denies abnormal gait Psychiatric Psychiatric: Reports anxiety Vital Signs Vital Signs Vital Signs: 03/30/21 01:24 03/30/21 03:13 Temperature 97.8 F 97.5 F L Temperature Source Oral Temporal Pulse Rate 75 60 Respiratory Rate 16 18 Blood Pressure 168/64 H 156/48 H Blood Pressure Mean 98 84 Pulse Ox 98 98 Oxygen Delivery Method Room Air Room Air Weight Weight: 169 lb 1.513 oz Body Mass Index (BMI) 29.0 Physical Exam Const oriented x3 and no apparent distress General Appearance: cooperative HEENT normocephalic and head/scalp atraumatic Eyes PERRL and EOMs intact bilaterally Neck supple Lymph Lymphatic: no lymphadenopathy noted Resp normal respiratory effort Cardio regular rate, regular rhythm, S1 normal heart sound and S2 normal heart sound GI Palpation: tender LLQ Extremity normal capillary refill Skin General Skin Exam: turgor normal Neuro CN's II-XII intact bilaterally Lab / Micro Data Result Diagrams: 03/30/21 01:25 03/30/21 01:25 Labs: Laboratory Results - last 24 hr 03/30/21 03/30/21 03/30/21 01:25 01:25 01:50 WBC 10.2 RBC 4.10 L Hgb 11.9 L Hct 35.3 L MCV 86.1 MCH 29.0 MCHC 33.7 RDW Std Deviation 38.6 RDW Coeff of Cami 12.2 Plt Count 405 MPV 9.3 Immature Gran % (Auto) 0.300 Neut % (Auto) 71.9 H Lymph % (Auto) 16.9 L [place] % (Auto) 8.3 Eos % (Auto) 2.0 Baso % (Auto) 0.6 Absolute Neuts (auto) 7.3 Absolute Lymphs (auto) 1.72 Nucleated RBC % 0 Sodium 124 L Potassium 3.7 Chloride 91 L Carbon Dioxide 24.0 Anion Gap 9 BUN 13 Creatinine 1.18 H Estim Creat Clear Calc 37.21 Est GFR (MDRD) Af Amer 58 L Est GFR (MDRD) Non-Af 48 L BUN/Creatinine Ratio 11.0 Glucose 107 H Calcium 9.3 Urine Color Yellow Urine Clarity Clear Urine pH 6.5 Ur Specific [place] 1.010 Urine Protein Negative Urine Glucose (UA) Normal Urine Ketones Negative Urine Occult Blood Negative Urine Nitrite Negative Urine Bilirubin Negative Urine Urobilinogen Normal Ur Leukocyte Esterase 100 H Urine RBC 0 SEEN Urine WBC 5-10 SEEN Ur Squamous Epith Cells 0-5 SEEN Urine Bacteria 0 SEEN Urine Mucus 0 SEEN Radiology Impression Abdomen/Pelvis CT 03/30/21 01:40 IMPRESSION: Acute uncomplicated sigmoid diverticulitis. Electronically Signed: Noah Woo DO at 2:52 EDT Tel , Service support , Assessment & Plan Assessment/Plan (1) Acute hyponatremia: (2) Acute diverticulitis: PLAN: 1. Diverticulitis?admit patient to progressive care unit, continue Cipro and Flagyl, morphine as needed for pain, IV hydration. 2. Hyponatremia?normal saline at 125 cc/h repeat BMP in the morning 3. DVT prophylaxis?low molecular weight heparin Visit Charges Inpatient E&M: 12539 Init Hosp L2
[2021-03-30] MEDS: Morphine 2 MG/ML Syringe IV ×2 (05:01→16:40)
[2021-03-30] MEDS: metroNIDAZOLE 500 MG/100 ML BAG 100 MG IV ×3 (05:03→18:57)
[2021-03-30 07:19] LABS: Anion Gap 9 (5-15); BUN 13 mg/dL (7-18); BUN/Creat Ratio 13.4 RATIO (10-20); Calcium,Total 8.6 mg/dL (8.5-10.1); Chloride 97 mmol/L (98-107); Creatinine, Serum 0.97 mg/dL (0.55-1.02); EST Glomerular Filtration Rate 60 mL/min (>60); Est Glom Filt Rate - Afr Amer 73 mL/min (>60); Estimated Creatinine Clearance 37.66 ml/min; Glucose 108 mg/dL (74-106); Potassium 3.3 mmol/L (3.5-5.1); Sodium Level 131 mmol/L (136-145)
[2021-03-30] MEDS: Enoxaparin 40 MG/0.4 ML Syringe SC (08:11)
[2021-03-30] MEDS: Potassium Chloride 10mEq/100mL 10 MEQ/100 ML IV.SOLN. 100 MEQ IV BOLUS ×4 (08:11→13:32)
--- NOTE | 2021-03-30 15:03 | PCM.HOSP.N ---
Hospitalist Note Ms. Fernandez is a 70-year-old white female who was admitted to the hospital on 03/30/2021 with a chief complaint of left lower abdominal pain. The patient has a marked history of diverticulitis and has been treated several times for this. She is actually scheduled for colonoscopy tomorrow, 03/31/2021. It sounds as if she also is scheduled for a left hemicolectomy or at least partial colon removal with 3 anastomosis on June 15. We will continue her IV antibiotics for now. She is on a clear liquid diet and she can advance as tolerated. I will discontinue her IV fluids. She had recurrent hyponatremia and indapamide was discontinued at her last discharge which was earlier this month. However, she is on Lasix 20 mg daily. This was not on her discharge med reconciliation from her early March admission. I will hold her Lasix. Her work-up showed hyperosmolar hyponatremia and I suspect that this was all thought to be related to medications. I will check a TSH and a cortisol level at this admission. She does always seem to resolve with IV fluids and she appeared mildly dehydrated on admission as her serum creatinine was mildly higher than it had been at discharge from her previous admission. Regarding her hypokalemia, will check mag level and repeat BMP in a.m.
[2021-03-30] MEDS: Pantoprazole Sodium 40 MG Tablet PO (15:52)
[2021-03-30] MEDS: Ondansetron 4 MG/2 ML Vial IV (15:52)
[2021-03-30] MEDS: Losartan Potassium 100 MG Tablet PO (15:52)
[2021-03-30] MEDS: Labetalol 100 MG Tablet PO ×2 (15:52→21:53)
--- NOTE | 2021-03-30 16:20 | CASEMGMT ---
RN CM Readmission Note Previous Admission: 03.09.21-03.10.21 Diagnosis: hyponatremia DC Disposition: Pt Na was 121 on admission and 136 on dc. Pt indapamide was dc'd with follow up PCP appt in 2 wks. Current Admission Presentation: diverticulitis, hyponatremia Pt presented to ER from home with abdominal pain. Pt had a scheduled colonoscopy for 03.31.21. Pt found to be hyponatremic at 124 in ER. RN CM in to pt room. Pt states she followed up with [facility] for new PCP . She states lasix was added to her medication regimen. Pt was taking medications as ordered. CM to follow for safe dc. Pt states she lives with her two daughters who assist her. She currently denies the need for any HHC.
[2021-03-30] MEDS: Ensure Clear 120 ML Liquid PO (16:45)
[2021-03-30] MEDS: Polyethylene Glycol 3350 17 GM PACKET PO (21:52)
[2021-03-30] MEDS: Gemfibrozil 600 MG Tablet PO (21:52)
[2021-03-30] MEDS: Gabapentin 300 MG Capsule PO (21:53)
[2021-03-30] MEDS: amLODIPine 5 MG Tablet PO (21:53)
[2021-03-31] VITALS (7 sets, daily range): BP systolic 121–140; BP diastolic 43–61; PULSE 63–81; RESP 17–18; TEMP 36.4–36.8; O2SAT 94–98
[2021-03-31] MEDS: metroNIDAZOLE 500 MG/100 ML BAG 100 MG IV ×3 (00:11→12:02)
[2021-03-31] MEDS: 0.9% Normal Saline 1,000 ML 125 ML IV (05:40)
[2021-03-31] MEDS: Levothyroxine 88 MCG Tablet PO (06:20)
[2021-03-31 07:48] LABS: Magnesium 2.1 mg/dL (1.6-2.6); Thyroid Stim Hormone (TSH) 2.17 uIU/mL (0.358-3.74)
[2021-03-31 08:43] LABS: Anion Gap 6 (5-15); BUN 8 mg/dL (7-18); BUN/Creat Ratio 8.1 RATIO (10-20); Calcium,Total 8.7 mg/dL (8.5-10.1); Chloride 110 mmol/L (98-107); Creatinine, Serum 0.98 mg/dL (0.55-1.02); EST Glomerular Filtration Rate 59 mL/min (>60); Est Glom Filt Rate - Afr Amer 71 mL/min (>60); Estimated Creatinine Clearance 37.27 ml/min; Glucose 98 mg/dL (74-106); Potassium 3.5 mmol/L (3.5-5.1); Sodium Level 138 mmol/L (136-145)
[2021-03-31] MEDS: Pantoprazole Sodium 40 MG Tablet PO (09:06)
[2021-03-31] MEDS: Ensure Clear 120 ML Liquid PO (09:06)
[2021-03-31] MEDS: Losartan Potassium 100 MG Tablet PO (09:06)
[2021-03-31] MEDS: Labetalol 100 MG Tablet PO (09:07)
[2021-03-31] MEDS: Aspirin 81 MG TAB.CHEW PO (09:07)
[2021-03-31] MEDS: Enoxaparin 40 MG/0.4 ML Syringe SC (09:08)
[2021-03-31] MEDS: Ciprofloxacin 400 MG/200 ML BAG 200 MG IV (09:09)
--- NOTE | 2021-03-31 11:48 | PCM.DC ---
Discharge Instructions Diet Discharge Diet: Light diet - advance as tolerated Activity Discharge Activity: Return to Normal Activity Dressing / Incision Call your doctor if you observe: Fever of 101 or Higher, Inability to have a bowel movement and Uncontrolled pain Follow Up Care Test Results: Test results from this visit will be discussed in further detail at your follow-up appointment, if applicable. Discharge Plan Admission Admit Date/Time: 03/30/21 03:50 Primary Reason for Your Visit: Diverticulitis Attending Provider: Beatriz White Primary Care Provider: Evangelist Starr Instructions Additional Instructions / Restrictions: Recommend BMP by primary care provider at follow-up next week to reassess electrolytes. Discharge Orders/Prescriptions Prescriptions: New amoxicillin-pot clavulanate [Augmentin] 875-125 mg tablet 1 tab PO BID Qty: 20 RF: 0 Continued meclizine 25 mg tablet 25 mg PO DAILY PRN (Reason: Vertigo) RF: 0 levothyroxine 88 MCG tablet 88 mcg PO DAILY RF: 0 aspirin 81 MG tablet,chewable 81 mg PO DAILY@0800 RF: 0 losartan 100 MG tablet 100 mg PO DAILY RF: 0 gabapentin 300 mg capsule 300 mg PO QHS RF: 0 amlodipine 5 MG tablet 5 mg PO QHS RF: 0 labetalol 100 MG tablet 100 mg PO BID RF: 0 pantoprazole 40 MG tablet 40 mg PO DAILY RF: 0 biotin 1 MG capsule 1 mg PO DAILY RF: 0 gemfibrozil 600 mg tablet 600 mg PO QHS RF: 0 Discontinued potassium chloride 20 mEq tablet extended release 80 meq PO DAILY RF: 0 furosemide [Lasix] 20 mg Tablet 20 mg PO DAILY RF: 0 Referrals / Follow Up: Evangelist Starr MD [Primary Care Provider] - 04/08/21 10:40 am Behzad Kelley MD [STAFF PHYSICIAN] - Within 2 Weeks (Call for follow up) Disposition Disposition (needs filled in before D/C Order can be placed): Home, self care
--- NOTE | 2021-03-31 11:58 | DS.PCM_ITS ---
Documented by User: Zoya Cotto NP, SQL ENGINEER-C 03/31/21 12:19 Providers Date of Admission: 03/30/21 Date of Discharge: 03/31/21 Primary Care Physician: Dr. Evangelist Starr MD Reason For Visit: DIVERTICULITIS, HYPONATREMIA Diagnosis Discharge Diagnosis (1) Acute hyponatremia: Status: Acute Code(s): E87.1 - Hypo-osmolality and hyponatremia (2) Acute diverticulitis: Status: Acute Code(s): K57.92 - Diverticulitis of intestine, part unspecified, without perforation or abscess without bleeding Medications at Discharge Home Medications aspirin 81 mg PO DAILY@0800 01/01/14 levothyroxine 88 mcg PO DAILY 01/01/14 losartan 100 mg PO DAILY 01/01/14 amlodipine 5 mg PO QHS 01/25/18 labetalol 100 mg PO BID 01/25/18 pantoprazole 40 mg PO DAILY 01/25/18 biotin 1 mg PO DAILY 07/06/18 meclizine 25 mg tablet 25 mg PO DAILY PRN 07/01/19 gabapentin 300 mg capsule 300 mg PO QHS cap 09/04/19 gemfibrozil 600 mg PO QHS 03/30/21 amoxicillin-pot clavulanate [Augmentin] 1 tab PO BID #20 tab 03/31/21 Hospital Course Operations None Procedures None Summary of Care Provided Minutes Spent on Discharge: 35 Hospital Course: Patient is a 70-year-old female admitted 03/30/2021 due to left lower quadrant pain. 1. Acute recurrent diverticulitis-CT of abdomen and pelvis on admission shows acute uncomplicated sigmoid diverticulitis. IV Cipro and IV Flagyl during admission. Discharged on oral Augmentin to complete 10-day course. Follow-up with general surgery, Dr. Kelley in 2 weeks. Patient had outpatient col onoscopy planned for 03/31/2021. 2. Acute on chronic hyponatremia-sodium normal after discontinuation of Lasix and receiving IV fluids. Discontinue Lasix at discharge. Repeat BMP in 1 week by primary care provider. TSH normal. Cortisol mildly elevated. If patient has recurrent hyponatremia despite being off of diuretic regimen, will need further outpatient work-up and evaluation. 3. Hypertension-stable, continue amlodipine, labetalol, losartan. 4. Hyperlipidemia-continue home regimen. 5. Hypothyroidism-continue Synthroid. TSH normal. 6. History of breast cancer-in remission. Patient seen and examined prior to discharge. Physical assessment as noted below. Patient is stable for discharge with follow up recommendations as noted above. This patient was seen by JERICA Murrieta under the supervision of Dr. White. ABG / Lab / Microbiology Data Result Diagrams: 03/30/21 01:25 03/31/21 06:40 Laboratory: Laboratory Results - last 24 hr 03/31/21 03/31/21 03/31/21 06:40 06:40 06:40 Sodium 138 Potassium 3.5 Chloride 110 H Carbon Dioxide 22.0 Anion Gap 6 BUN 8 Creatinine 0.98 Estim Creat Clear Calc 37.27 Est GFR (MDRD) Af Amer 71 Est GFR (MDRD) Non-Af 59 L BUN/Creatinine Ratio 8.1 L Glucose 98 Calcium 8.7 Magnesium 2.1 TSH 2.17 Cortisol 26.80 H D/C Instructions Discharge Diet: Light diet - advance as tolerated Discharge Activity: Return to Normal Activity Call your doctor if you observe: Fever of 101 or Higher, Inability to have a bowel movement and Uncontrolled pain Meaningful Use Info Meaningful Use Diagnoses (Choose all that apply): None applicable Discharge Plan Admission Admit Date/Time: 03/30/21 03:50 Primary Reason for Your Visit: Diverticulitis Attending Provider: Beatriz White Primary Care Provider: Evangelist Starr Instructions Additional Instructions / Restrictions: Recommend BMP by primary care provider at follow-up next week to reassess electrolytes. Discharge Orders/Prescriptions Prescriptions: New amoxicillin-pot clavulanate [Augmentin] 875-125 mg tablet 1 tab PO BID Qty: 20 RF: 0 Continued meclizine 25 mg tablet 25 mg PO DAILY PRN (Reason: Vertigo) RF: 0 levothyroxine 88 MCG tablet 88 mcg PO DAILY RF: 0 aspirin 81 MG tablet,chewable 81 mg PO DAILY@0800 RF: 0 losartan 100 MG tablet 100 mg PO DAILY RF: 0 gabapentin 300 mg capsule 300 mg PO QHS RF: 0 amlodipine 5 MG tablet 5 mg PO QHS RF: 0 labetalol 100 MG tablet 100 mg PO BID RF: 0 pantoprazole 40 MG tablet 40 mg PO DAILY RF: 0 biotin 1 MG capsule 1 mg PO DAILY RF: 0 gemfibrozil 600 mg tablet 600 mg PO QHS RF: 0 Discontinued potassium chloride 20 mEq tablet extended release 80 meq PO DAILY RF: 0 furosemide [Lasix] 20 mg Tablet 20 mg PO DAILY RF: 0 Referrals / Follow Up: Evagnelist Starr MD [Primary Care Provider] - 04/08/21 10:40 am Behzad Kelley MD [STAFF PHYSICIAN] - 04/08/21 9:40 am (Call for follow up) Disposition Disposition (needs filled in before D/C Order can be placed): Home, self care Documented by User: Dr. Beatriz hWite DO 03/31/21 14:53 Providers Date of Admission: 03/30/21 Reason For Visit: DIVERTICULITIS, HYPONATREMIA Medications at Discharge Home Medications aspirin 81 mg PO DAILY@0800 01/01/14 levothyroxine 88 mcg PO DAILY 01/01/14 losartan 100 mg PO DAILY 01/01/14 amlodipine 5 mg PO QHS 01/25/18 labetalol 100 mg PO BID 01/25/18 pantoprazole 40 mg PO DAILY 01/25/18 biotin 1 mg PO DAILY 07/06/18 meclizine 25 mg tablet 25 mg PO DAILY PRN 07/01/19 gabapentin 300 mg capsule 300 mg PO QHS cap 09/04/19 gemfibrozil 600 mg PO QHS 03/30/21 amoxicillin-pot clavulanate [Augmentin] 1 tab PO BID #20 tab 03/31/21 Hospital Course Summary of Care Provided Minutes Spent on Discharge: 40 Hospital Course: Mrs. Fernandez is a for 70-year-old female who presented to the emergency department at [facility] on 03/30/2021 with a chief complaint of left lower quadrant abdominal pain. On presentation she reported that she had been experiencing pain for approximately 3 days and its worsened since it was initiated. She has a history of diverticulitis and was supposed to have a colonoscopy with Dr. Kelley in [place] on 03/31/2021 and a partial colectomy with reanastomosis on 06/15/2021 at [facility] for r ecurrent bouts of diverticulitis. On admission she was placed on ciprofloxacin and Flagyl and her pain slowly improved and she was able to tolerate a p.o. diet. She was also noted to be hyponatremic and hypokalemic on admission with a sodium of 124 and a potassium of 3.3. She had mild NURA with a serum creatinine of 1.18. She had a recent admission for hyponatremia and indapamide was stopped at that point in time. I reviewed her medications at her discharge from that hospitalization and her admission medications from this hospitalization and Lasix has been added. Her Lasix was discontinued and she was treated with IV fluids which resulted in resolution of her hyponatremia. A TSH and cortisol were obtained and both were within normal limits. We have instructed her to discontinue her Lasix and to have a repeat BMP in 1 week if her sodium stable it appears that medications were the inciting factor if her sodium decreases she should have a further work-up by her primary care physician. Regarding her diverticulitis she will be treated with a total 10-day course of Augmentin and she is to follow-up with general surgery, Dr. Kelley, in 2 weeks. We discussed the risks of doing a colonoscopy during an acute flare of diverticulitis and she is understanding of the reasons that she needs to wait until her acute infection has resolved. Discharge diagnoses Acute recurrent diverticulitis Acute hyponatremia Hypertension Hyperlipidemia Hypothyroidism History of breast cancer Diverticulosis CKD stage IIIa GERD Obesity Hiatal hernia Hypokalemia Remote tobacco abuse Physical Exam Const alert, oriented x3 and no apparent distress Constitutional Narrative: Older obese white female lying in bed, appears comfortable, nontoxic, watching television General Appearance: cooperative, comfortable, well kempt and well developed Exam Limitations: no limitations HEENT normocephalic and head/scalp atraumatic Eyes PERRL, EOMs intact bilaterally and conjunctivae normal Neck no lymphadenopathy, supple, no JVD and no carotid bruits Resp normal respiratory effort, no retractions, no use of accessory muscles and clear to auscultation bilaterally Cardio regular rate, regular rhythm, S1 normal heart sound, S2 normal heart sound, no murmurs, no rub, no gallops, no clicks and no JVD GI normal to inspection, nondistended, normoactive bowel sounds, soft to palpation and non-distended; Negative for non-tender GI Narrative: Mild tenderness left lower quadrant Extremity normal to inspection and no clubbing, cyanosis or edema Skin no rashes or lesions noted, no wounds, skin turgor normal and no jaundice Neuro oriented x3, CN's II-XII intact bilaterally, moves all extremities, no focal motor deficits and no sensory deficits noted Sensorium / Orientation: awake, alert, oriented to person, oriented to place and oriented to time Speech: speech normal Psych affect normal Psych Narrative: Very pleasant ABG / Lab / Microbiology Data Result Diagrams: 03/30/21 01:25 03/31/21 06:40 Discharge Plan Admission Admit Date/Time: 03/30/21 03:50 Primary Reason for Your Visit: Diverticulitis Attending Provider: Beatriz White Primary Care Provider: Evangelist Starr Instructions Additional Instructions / Restrictions: Recommend BMP by primary care provider at follow-up next week to reassess electrolytes. Discharge Orders/Prescriptions Prescriptions: New amoxicillin-pot clavulanate [Augmentin] 875-125 mg tablet 1 tab PO BID Qty: 20 RF: 0 Continued meclizine 25 mg tablet 25 mg PO DAILY PRN (Reason: Vertigo) RF: 0 levothyroxine 88 MCG tablet 88 mcg PO DAILY RF: 0 aspirin 81 MG tablet,chewable 81 mg PO DAILY@0800 RF: 0 losartan 100 MG tablet 100 mg PO DAILY RF: 0 gabapentin 300 mg capsule 300 mg PO QHS RF: 0 amlodipine 5 MG tablet 5 mg PO QHS RF: 0 labetalol 100 MG tablet 100 mg PO BID RF: 0 pantoprazole 40 MG tablet 40 mg PO DAILY RF: 0 biotin 1 MG capsule 1 mg PO DAILY RF: 0 gemfibrozil 600 mg tablet 600 mg PO QHS RF: 0 Discontinued potassium chloride 20 mEq tablet extended release 80 meq PO DAILY RF: 0 furosemide [Lasix] 20 mg Tablet 20 mg PO DAILY RF: 0 Referrals / Follow Up: Evangelist Starr MD [Primary Care Provider] - 04/08/21 10:40 am Behzad Kelley MD [STAFF PHYSICIAN] - 04/08/21 9:40 am (Call for follow up) Disposition Disposition (needs filled in before D/C Order can be placed): Home, self care Visit Charges Inpatient E&M: 37305 Disch Hosp
--- NOTE | 2021-03-31 14:02 | CASEMGMT ---
Óscar Olson RN, pt has been independent in room and states pt does not need therapy eval at this time. Pt ready for discharge. Kip ENNIS CM
--- NOTE | 2021-04-01 14:33 | CASEMGMT ---
LOLI ESCAMILLA Discharge Follow-Up Phone Call. Lace: 10 Strata: 3 Discharge Date: 03/31/21 Adm Dx: Diverticulitis, hyponatremia Attempted discharge f/u phone call. No answer. Non-identifying VM received. Non-descript VM left requesting return call if there are any questions or concerns. Phone number provided. Anastasiya MCGOWAN RN CM
== END 2021-03-31 14:38 | disposition home or self-care (01) | DRG 392 ==
LOC: ED 03:13 → PCU 03:56
PROVIDERS: Nurse Practitioner Family; Admitting Provider Family Medicine; Emergency Provider Emergency Medicine; PCP Family Medicine; Visit Provider Internal Medicine
DX: K57.32 Diverticulitis of large intestine without perforation or abscess without bleeding (principal); E87.1 Hypo-osmolality and hyponatremia; E78.5 Hyperlipidemia, unspecified; E03.9 Hypothyroidism, unspecified; Z85.3 Personal history of malignant neoplasm of breast; Z79.899 Other long term (current) drug therapy; Z87.891 Personal history of nicotine dependence; E87.6 Hypokalemia; I12.9 Hypertensive chronic kidney disease with stage 1 through stage 4 chronic kidney disease, or unspecified chronic kidney disease; N18.31 Chronic kidney disease, stage 3a; K21.9 Gastro-esophageal reflux disease without esophagitis; E66.9 Obesity, unspecified; K44.9 Diaphragmatic hernia without obstruction or gangrene; Z68.29 Body mass index [BMI] 29.0-29.9, adult
CPT/HCPCS: 36415; 74176; 80048; 81001; 82533; 83735; 84443; 85025; 99285; J7030; A4216; J0744; J2405

== ENCOUNTER 2021-06-14 23:29 | Emergency (ER) | payer MEDICARE, SELFPAY ==
[2021-03-30 03:59] VITALS: BMI 32.9
[2021-06-14 23:29] VITALS: BP 150/61; PULSE 63; RESP 20; TEMP 35.7; O2SAT 97; BMI 34.9
--- NOTE | 2021-06-14 23:53 | EKG12_ITS ---
Test Reason : SYNCOPE Blood Pressure : / mmHG Vent. Rate : 061 BPM Atrial Rate : 061 BPM P-R Int : 182 ms QRS Dur : 118 ms QT Int : 444 ms P-R-T Axes : 041 038 042 degrees QTc Int : 446 ms Normal sinus rhythm Normal ECG Confirmed by RANDA DURAND, GRAY ([id number]), editor in chief newspaper RAFAELA PEREZ ([id number]) on 06/16/2021 10:44:00 AM Referred By: NATASHA Confirmed By:GRAY TOLENTINO MD
[2021-06-15] MEDS: 0.9% Normal Saline 1,000 ML 1000 ML IV (00:21)
[2021-06-15 00:38] LABS: Absolute Lymphocyte Count 1.39 X10^3/uL (0.83-4.51); Basophil# 0.07 X10^3/uL; Basophil% 0.7 % (0-1); Hematocrit 35.6 % (37-47); Hemoglobin 11.5 g/dL (12.0-15.0); Lymphocyte # 1.39 X10^3/ul (0.83-4.51); Lymphocyte % 13.4 % (19-41); Mean Corp Hgb Conc 32.3 g/dL (32-36); Mean Corpuscular Hgb 28.5 pg (27.0-32.0); Mean Corpuscular Volume 88.1 fL (81-99); Mean Platelet Vol. 10.1 fl (6.2-12.0); Monocyte# 0.81 X10^3/uL; Monocyte% 7.8 % (0-10); NRBC Flagged by Analyzer 0 % (0-5); Neutrophil # 7.95 X10^3/uL (2.7-7.7); Neutrophil % 76.8 % (47-70); Platelet Count 315 K/mm3 (150-450); RBC Distribution Width CV 12.8 % (11.6-14.6); RBC Distribution Width SD 41.4 fl (35.1-43.9); Red Blood Count 4.04 M/mm3 (4.2-5.4); White Blood Count 10.4 K/mm3 (4.4-11.0)
[2021-06-15 00:40] VITALS: BP 136/67; PULSE 58; RESP 14; O2SAT 95
[2021-06-15 00:55] LABS: Anion Gap 6 (5-15); BUN 12 mg/dL (7-18); BUN/Creat Ratio 13.7 RATIO (10-20); Calcium,Total 8.8 mg/dL (8.5-10.1); Chloride 99 mmol/L (98-107); Creatinine, Serum 0.88 mg/dL (0.55-1.02); EST Glomerular Filtration Rate 67 mL/min (>60); Est Glom Filt Rate - Afr Amer 81 mL/min (>60); Glucose 116 mg/dL (74-106); Potassium 5.8 mmol/L (3.5-5.1); Sodium Level 128 mmol/L (136-145)
[2021-06-15] MEDS: 0.9% Normal Saline 1,000 ML 999 ML IV (02:06)
[2021-06-15 03:13] VITALS: BP 127/59; PULSE 61; RESP 15; O2SAT 98
--- NOTE | 2021-06-15 03:45 | EDS_ITS ---
HPI History of Present Illness Chief Complaint: Syncope Informant: patient and family Narrative Narrative: Patient presents via EMS after syncopal episode at home. Patient is scheduled to have colon surgery this morning at the [facility]. She has been on clear liquids last 2 days and was doing her bowel prep last evening. Patient states that she had laid down but needed to get up to go to the restroom. While trying to walk to the restroom she became lightheaded and passed out. Daughter states that she has had syncopal episodes in the past but was out longer this time. No seizure activity. Patient denies having palpitations or chest pain prior to her syncopal episode. [facility] Medical History Abdominal pain CKD (chronic kidney disease), stage III Diverticulitis Diverticulosis Essential hypertension Former tobacco use GERD (gastroesophageal reflux disease) Hiatal hernia Hyperlipidemia Hypokalemia Hyponatremia Hypothyroidism Obesity Pancreatitis Home Medications aspirin 81 mg PO DAILY@0800 01/01/14 [History Last Taken 07/14/20 17:30] levothyroxine 88 mcg PO DAILY 01/01/14 [History Last Taken 07/14/20 07:30] losartan 100 mg PO DAILY 01/01/14 [History Last Taken 07/14/20 08:00] amlodipine 5 mg PO QHS 01/25/18 [History Last Taken 07/14/20 17:30] labetalol 100 mg PO BID 01/25/18 [History Last Taken 07/14/20 17:30] pantoprazole 40 mg PO DAILY 01/25/18 [History Last Taken 07/14/20 08:00] biotin 1 mg PO DAILY 07/06/18 [History Last Taken 07/14/20 08:00] meclizine 25 mg tablet 25 mg PO DAILY PRN 07/01/19 [History Last Taken 07/12/20 03:00] gabapentin 300 mg capsule 300 mg PO QHS cap 09/04/19 [History Last Taken 07/13/20 22:00] gemfibrozil 600 mg PO QHS 03/30/21 [History Last Taken Unknown] potassium chloride 20 meq PO BID 06/14/21 [History Last Taken Unknown] Allergy/AdvReac Type Severity Reaction Status Date / Time hydrochlorothiazide Allergy Intermediate rash Verified 06/14/21 23:34 lisinopril AdvReac Intermediate cough Verified 06/14/21 23:34 atorvastatin [From Lipitor] AdvReac Unknown unknown Verified 06/14/21 23:34 spironolactone AdvReac Unknown unknown Verified 06/14/21 23:34 Beta-Blockers AdvReac cough Verified 06/14/21 23:34 (Beta-Adrenergic Bloc codeine AdvReac Intolerance Verified 06/14/21 23:34 perindopril [From Aceon] AdvReac rash,cough Verified 06/14/21 23:34 Family History Mother Diabetes Heart disease Hypertension CVA (cerebral vascular accident) Sister Hypertension Heart disease Brother Heart disease Hypertension Surgical History History of carpal tunnel release of both wrists History of cholecystectomy History of colonoscopy (11/2018) History of left heart catheterization (2015) History of right and left heart catheterization (08/16/19) Hx of cholecystectomy Hx of esophagogastroduodenoscopy Hx of eye surgery Hx of repair of right rotator cuff Hx of tubal ligation Social History Smoking Status: Former smoker alcohol intake: current alcohol intake frequency: holidays/special occasions only substance use type: does not use caffeine: No what type of physical activity do you participate in: none frequency: does not exercise ROS ROS ED Constitutional Constitutional ED: Denies chills or fever(s) Eyes Eyes: Denies change in vision ENT ENT ED: Denies sore throat Cardiovascular Cardiovascular: Denies chest pain Respiratory/Chest Respiratory/Chest: Denies cough or dyspnea Gastrointestinal Gastrointestinal: Reports abdominal pain, diarrhea, nausea and vomiting Genitourinary Genitourinary ED: Denies dysuria Musculoskeletal Musculoskeletal: Denies back pain Integumentary Denies rash Neurologic Neurologic: Denies headache(s) or weakness Psychiatric Psychiatric: Denies anxiety or depression Allergic/Immunologic Allergic/Immunologic ED: Denies urticaria EXAM Physical Exam Const Vital Signs: 06/14/21 23:29 06/14/21 23:39 06/15/21 00:40 Temperature 96.2 F L Temperature Source Temporal Pulse Rate 63 58 L Respiratory Rate 20 H 14 Respiratory Effort Normal Non-Labored Respiratory Pattern Normal Blood Pressure 150/61 H 136/67 H Blood Pressure Mean 90 90 Pulse Ox 97 95 Oxygen Delivery Method Room Air Room Air 06/15/21 03:13 06/15/21 04:39 Temperature Temperature Source Pulse Rate 61 70 Respiratory Rate 15 16 Respiratory Effort Respiratory Pattern Blood Pressure 127/59 H 121/59 H Blood Pressure Mean 81 79 Pulse Ox 98 96 Oxygen Delivery Method Room Air Positive well nourished and well developed General Appearance ED: well developed HEENT Reports normocephalic and head/scalp atraumatic Eyes PERRL and EOMs intact bilaterally Neck supple Chest Wall inspection of chest normal and palpation of chest normal Resp normal respiratory effort and clear to auscultation bilaterally Cardio regular rate and regular rhythm GI non-tender Auscultation: hypoactive bowel sounds Palpation: soft Extremity normal to inspection Neuro oriented x3 and no sensory deficits noted Sensorium / Orientation: alert Motor Exam: strength 5/5 throughout Psych mental status grossly normal Skin no rashes or lesions noted MDM MDM MDM Narrative Medical decision making narrative: Labs, EKG obtained. Lab Data Attestation: I reviewed the patient's lab results. Labs: Laboratory Results - last 24 hr 06/15/21 06/15/21 06/15/21 00:20 00:20 03:30 WBC 10.4 RBC 4.04 L Hgb 11.5 L Hct 35.6 L MCV 88.1 MCH 28.5 MCHC 32.3 RDW Std Deviation 41.4 RDW Coeff of Cami 12.8 Plt Count 315 MPV 10.1 Immature Gran % (Auto) 0.300 Neut % (Auto) 76.8 H Lymph % (Auto) 13.4 L [place] % (Auto) 7.8 Eos % (Auto) 1.0 Baso % (Auto) 0.7 Absolute Neuts (auto) 8.0 H Absolute Lymphs (auto) 1.39 Nucleated RBC % 0 Sodium 128 L 135 L Potassium 5.8 H 3.7 Chloride 99 105 Carbon Dioxide 23.0 23.0 Anion Gap 6 7 BUN 12 10 Creatinine 0.88 0.83 Estim Creat Clear Calc 40.90 43.36 Est GFR (MDRD) Af Amer 81 86 Est GFR (MDRD) Non-Af 67 71 BUN/Creatinine Ratio 13.7 12.0 Glucose 116 H 122 H Calcium 8.8 8.4 L EKG Initial EKG: Attestation: I personally reviewed and interpreted this EKG as follows: Interpretation: Sinus Rhythm (Sinus at 61 with no acute ischemia.) Treatment and Re-Evaluation Comments:: Patient's initial sodium was noted to be low at 128. She was admitted to the hospital twice in March with low sodium levels around 121 and 124 at the times of admission. Patient was given 2 L of IV fluid over the course of her ED stay. Repeat BMP does reveal sodium improved to 135. Patient and daughter are comfortable with this plan. We did discuss vasovagal syncope and I believe this is the cause of her fainting episode. Patient and daughter wish to call and postpone her surgery that is scheduled for today. Return instructions are provided. Discharge Plan Triage Chief Complaint: Syncope ED Provider: Cyndi Carlos Dx/Rx/DC Orders Clinical Impression: Syncope, vasovagal, Hyponatremia Instructions: ED Hyponatremia, ED Fainting, Vagal Reaction Prescriptions: No Action meclizine 25 mg tablet 25 mg PO DAILY PRN (Reason: Vertigo) RF: 0 levothyroxine 88 MCG tablet 88 mcg PO DAILY RF: 0 aspirin 81 MG tablet,chewable 81 mg PO DAILY@0800 RF: 0 losartan 100 MG tablet 100 mg PO DAILY RF: 0 gabapentin 300 mg capsule 300 mg PO QHS RF: 0 amlodipine 5 MG tablet 5 mg PO QHS RF: 0 labetalol 100 MG tablet 100 mg PO BID RF: 0 pantoprazole 40 MG tablet 40 mg PO DAILY RF: 0 biotin 1 MG capsule 1 mg PO DAILY RF: 0 gemfibrozil 600 mg tablet 600 mg PO QHS RF: 0 potassium chloride 20 mEq Tablet Extended Release 20 meq PO BID RF: 0 Primary Care Provider: Evangelist Starr Referrals: Evangelist Starr MD [Primary Care Provider] - As Needed Disposition Disposition: Home, Self Care
[2021-06-15 04:39] VITALS: BP 121/59; PULSE 70; RESP 16; O2SAT 96
[2021-06-15 04:40] LABS: Anion Gap 7 (5-15); BUN 10 mg/dL (7-18); Calcium,Total 8.4 mg/dL (8.5-10.1); Chloride 105 mmol/L (98-107); Creatinine, Serum 0.83 mg/dL (0.55-1.02); EST Glomerular Filtration Rate 71 mL/min (>60); Est Glom Filt Rate - Afr Amer 86 mL/min (>60); Estimated Creatinine Clearance 43.36 ml/min; Glucose 122 mg/dL (74-106); Potassium 3.7 mmol/L (3.5-5.1); Sodium Level 135 mmol/L (136-145)
[2021-06-15 04:45] VITALS: BP 123/74; PULSE 74; RESP 16; O2SAT 98
== END 2021-06-15 04:47 | disposition home or self-care (01) ==
PROVIDERS: Emergency Provider Emergency Medicine; PCP Family Medicine
DX: E87.1 Hypo-osmolality and hyponatremia (principal); R55 Syncope and collapse; I12.9 Hypertensive chronic kidney disease with stage 1 through stage 4 chronic kidney disease, or unspecified chronic kidney disease; N18.30 Chronic kidney disease, stage 3 unspecified; K21.9 Gastro-esophageal reflux disease without esophagitis; E78.5 Hyperlipidemia, unspecified; E03.9 Hypothyroidism, unspecified; E66.9 Obesity, unspecified; Z79.899 Other long term (current) drug therapy; Z87.891 Personal history of nicotine dependence
CPT/HCPCS: 80048; 85025; 93005; 96360; 96361; 99285; J7030; A4216

== ENCOUNTER 2021-07-28 18:04 | Emergency (ER) | payer MEDICARE, SELFPAY ==
[2021-07-28 18:05] VITALS: BP 157/74; PULSE 71; RESP 16; TEMP 36.6; O2SAT 100; BMI 31.2
[2021-07-28 18:53] LABS: Absolute Lymphocyte Count 1.48 X10^3/uL (0.83-4.51); Absolute Neutrophil Count 5.4 X10^3/uL (2.0-7.7); Basophil# 0.08 X10^3/uL; Eosinophil# 0.17 X10^3/uL; Eosinophils% 2.1 % (0-5); Hematocrit 35.1 % (37-47); Hemoglobin 11.6 g/dL (12.0-15.0); Lymphocyte # 1.48 X10^3/ul (0.83-4.51); Lymphocyte % 18.4 % (19-41); Mean Corpuscular Hgb 28.4 pg (27.0-32.0); Mean Platelet Vol. 9.7 fl (6.2-12.0); Monocyte# 0.91 X10^3/uL; Monocyte% 11.3 % (0-10); NRBC Flagged by Analyzer 0 % (0-5); Neutrophil # 5.41 X10^3/uL (2.7-7.7); Neutrophil % 67.1 % (47-70); Platelet Count 329 K/mm3 (150-450); RBC Distribution Width CV 12.6 % (11.6-14.6); RBC Distribution Width SD 39.1 fl (35.1-43.9); Red Blood Count 4.08 M/mm3 (4.2-5.4); White Blood Count 8.1 K/mm3 (4.4-11.0)
[2021-07-28 19:06] LABS: Anion Gap 4 (5-15); BUN 13 mg/dL (7-18); BUN/Creat Ratio 13.6 RATIO (10-20); Calcium,Total 9.1 mg/dL (8.5-10.1); Chloride 100 mmol/L (98-107); Creatinine, Serum 0.96 mg/dL (0.55-1.02); EST Glomerular Filtration Rate 61 mL/min (>60); Est Glom Filt Rate - Afr Amer 74 mL/min (>60); Estimated Creatinine Clearance 37.49 ml/min; Glucose 74 mg/dL (74-106); Potassium 3.9 mmol/L (3.5-5.1); Sodium Level 130 mmol/L (136-145)
--- NOTE | 2021-07-28 20:15 | ED.VIS.GI ---
HPI HPI - GI History of Present Illness Chief Complaint: Abd Pain Detail of Chief Complaint: Abdominal pain that started 4 days ago Informant: patient Abdominal Pain/Flank Pain Maximum Severity: Mild Narrative Narrative: Patient presents to the emergency department complaint of abdominal pain that started 4 days ago. Patient states that she has a history of diverticulitis and has pain at similar. Patient describes the discomfort to the left lower quadrant. Patient states that her primary care physician felt she should have a CAT scan. Patient denies any fever or vomiting. She denies any blood in her stool or black tarry stool. Patient states that she was scheduled to have a partial bowel resection for diverticulitis on June 15 however she passed out due to the prep and had some electrolyte abnormalities so they canceled her surgery. Patient denies urinary symptoms. She has had no fevers. [facility] Medical History Abdominal pain CKD (chronic kidney disease), stage III Diverticulitis Diverticulosis Essential hypertension Former tobacco use GERD (gastroesophageal reflux disease) Hiatal hernia Hyperlipidemia Hypokalemia Hyponatremia Hypothyroidism Obesity Pancreatitis Home Medications aspirin 81 mg PO DAILY@0800 01/01/14 [History Last Taken 07/14/20 17:30] levothyroxine 88 mcg PO DAILY 01/01/14 [History Last Taken 07/14/20 07:30] losartan 100 mg PO DAILY 01/01/14 [History Last Taken 07/14/20 08:00] amlodipine 5 mg PO QHS 01/25/18 [History Last Taken 07/14/20 17:30] labetalol 100 mg PO BID 01/25/18 [History Last Taken 07/14/20 17:30] pantoprazole 40 mg PO DAILY 01/25/18 [History Last Taken 07/14/20 08:00] biotin 1 mg PO DAILY 07/06/18 [History Last Taken 07/14/20 08:00] meclizine 25 mg tablet 25 mg PO DAILY PRN 07/01/19 [History Last Taken 07/12/20 03:00] gabapentin 300 mg capsule 300 mg PO QHS cap 09/04/19 [History Last Taken 07/13/20 22:00] gemfibrozil 600 mg PO QHS 03/30/21 [History Last Taken Unknown] potassium chloride 20 meq PO BID 06/14/21 [History Last Taken Unknown] Allergy/AdvReac Type Severity Reaction Status Date / Time hydrochlorothiazide Allergy Intermediate rash Verified 07/28/21 18:07 lisinopril AdvReac Intermediate cough Verified 07/28/21 18:07 atorvastatin [From Lipitor] AdvReac Unknown unknown Verified 07/28/21 18:07 spironolactone AdvReac Unknown unknown Verified 07/28/21 18:07 Beta-Blockers AdvReac cough Verified 07/28/21 18:07 (Beta-Adrenergic Bloc codeine AdvReac Intolerance Verified 07/28/21 18:07 perindopril [From Aceon] AdvReac rash,cough Verified 07/28/21 18:07 Family History Mother Diabetes Heart disease Hypertension CVA (cerebral vascular accident) Sister Hypertension Heart disease Brother Heart disease Hypertension Surgical History History of carpal tunnel release of both wrists History of cholecystectomy History of colonoscopy (11/2018) History of left heart catheterization (2015) History of right and left heart catheterization (08/16/19) Hx of cholecystectomy Hx of esophagogastroduodenoscopy Hx of eye surgery Hx of repair of right rotator cuff Hx of tubal ligation Social History Smoking Status: Former smoker alcohol intake: current alcohol intake frequency: holidays/special occasions only substance use type: does not use caffeine: No what type of physical activity do you participate in: none frequency: does not exercise ROS ROS ED Constitutional Constitutional ED: Reports systems reviewed and no addt'l complaints, except as documented; Denies body ache(s), change in weight or chills Eyes Eyes: Denies acute decrease in peripheral vision, change in vision, double vision or loss of vision ENT ENT ED: Reports none; Denies ear pain, lip swelling, loss taste/smell, neck pain, otalgia or sore throat Cardiovascular Cardiovascular: Reports none; Denies abdominal pain, chest pain with activity, leg edema, lightheadedness, palpitations, rapid heart rate or syncope Respiratory/Chest Respiratory/Chest: Reports none; Denies change in mental status, dry cough, dyspnea, hemoptysis, shortness of breath at rest or shortness of breath with exertion Gastrointestinal Gastrointestinal: Reports none and abdominal pain; Denies change in stool character, diarrhea, hematemesis, hematochezia, melena, rectal bleeding or vomiting Genitourinary Genitourinary ED: Reports none; Denies abdominal discomfort, anuria, dysuria, genital pain or polyuria Musculoskeletal Musculoskeletal: Reports none; Denies arthralgias, back pain, difficulty walking, extremity pain, muscle weakness or myalgias Integumentary Reports none; Denies abscess or rash Neurologic Neurologic: Reports none; Denies abnormal gait, confusion, focal weakness, frequent falls, headache(s), loss of vision, numbness, paresthesias, radicular pain, vertigo or weakness Psychiatric Psychiatric: Reports systems reviewed and no addt'l complaints, except as documented and none; Denies behavioral changes, confusion, difficulty concentrating, hallucinations, suicidal ideation, tactile hallucinations or visual hallucinations Endocrine Endocrinology: Denies none, cold intolerance, excessive sweating, fatigue or heat intolerance Hematologic/Lymphatic Hematologic/Lymphatic: Reports none; Denies anemia, easy bleeding or easy bruising Allergic/Immunologic Allergic/Immunologic ED: Denies as per HPI, none, lip swelling, mouth swelling, throat swelling, tongue swelling or hives EXAM Physical Exam Const Vital Signs: 07/28/21 18:05 Temperature 97.8 F Temperature Source Temporal Pulse Rate 71 Respiratory Rate 16 Blood Pressure 157/74 H Blood Pressure Mean 101 Pulse Ox 100 Oxygen Delivery Method Room Air Positive well nourished and well developed General Appearance ED: well developed and NAD HEENT Reports TM's clear and moist mucous membranes normocephalic and atraumatic; Negative for trauma or tenderness Tympanic Membrane ED: Yes TM's clear Eyes PERRL and EOMs intact bilaterally General Eye ED: Negative for pale conjunctiva or scleral icterus Neck no lymphadenopathy, supple and no JVD General: Negative for tenderness Chest Wall inspection of chest normal and palpation of chest normal Chest: Negative for tenderness Resp normal respiratory effort and clear to auscultation bilaterally Effort and Inspection: Negative for respiratory distress or pain with movement Auscultation: Negative for rhonchi, wheezes or diminished lung sounds Cardio regular rate, regular rhythm, S1 normal heart sound, S2 normal heart sound and no murmurs Peripheral Pulses: pulses 2+ throughout GI normal to inspection, nondistended, normoactive bowel sounds, soft to palpation, non-tender, non-distended and no masses GI Narrative: Patient has tenderness over left lower quadrant with some guarding. There is no rebound, rigidity, or peritoneal signs. Palpation: tender Back/Spine no CVA tenderness and no thoracic nor lumbar tenderness Extremity normal to inspection General Extremety ED: Negative for edema General Extremity: Negative for edema Neuro oriented x3, CN's II-XII intact bilaterally, no sensory deficits noted and gait normal Sensorium / Orientation: awake, alert, oriented to person, oriented to place and oriented to time Motor Exam: strength 5/5 throughout and strength abnormal Psych mental status grossly normal Skin no rashes or lesions noted and no wounds MDM MDM MDM Narrative Medical decision making narrative: Patient noted to have acute sigmoid diverticulitis on CT without evidence of perforation or abscess. 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 Patient does not need any antibiotics tonight as she has enough at home. Lab Data Attestation: I reviewed the patient's lab results. Labs: Laboratory Results - last 24 hr 07/28/21 07/28/21 18:40 18:40 WBC 8.1 RBC 4.08 L Hgb 11.6 L Hct 35.1 L MCV 86.0 MCH 28.4 MCHC 33.0 RDW Std Deviation 39.1 RDW Coeff of Cami 12.6 Plt Count 329 MPV 9.7 Immature Gran % (Auto) 0.100 Neut % (Auto) 67.1 Lymph % (Auto) 18.4 L Pratt % (Auto) 11.3 H Eos % (Auto) 2.1 Baso % (Auto) 1.0 Absolute Neuts (auto) 5.4 Absolute Lymphs (auto) 1.48 Nucleated RBC % 0 Sodium 130 L Potassium 3.9 Chloride 100 Carbon Dioxide 26.0 Anion Gap 4 L BUN 13 Creatinine 0.96 Estim Creat Clear Calc 37.49 Est GFR (MDRD) Af Amer 74 Est GFR (MDRD) Non-Af 61 BUN/Creatinine Ratio 13.6 Glucose 74 Calcium 9.1 Radiography Diagnostic Testing: Radiology Impression Abdomen/Pelvis CT 07/28/21 20:20 IMPRESSION: Acute sigmoid diverticulitis. No focal fluid collection or free air. Hiatal hernia. Patchy groundglass airspace opacities in the right middle and lower lobes could represent edema and/or infection. Electronically Signed: Silsa Vizcarra MD at 20:53 EDT Tel , Service support , Discharge Plan Triage Chief Complaint: Abd Pain ED Provider: Di Thomas Dx/Rx/DC Orders Clinical Impression: Acute diverticulitis Instructions: ED Diverticulitis Prescriptions: No Action meclizine 25 mg tablet 25 mg PO DAILY PRN (Reason: Vertigo) RF: 0 levothyroxine 88 MCG tablet 88 mcg PO DAILY RF: 0 aspirin 81 MG tablet,chewable 81 mg PO DAILY@0800 RF: 0 losartan 100 MG tablet 100 mg PO DAILY RF: 0 gabapentin 300 mg capsule 300 mg PO QHS RF: 0 amlodipine 5 MG tablet 5 mg PO QHS RF: 0 labetalol 100 MG tablet 100 mg PO BID RF: 0 pantoprazole 40 MG tablet 40 mg PO DAILY RF: 0 biotin 1 MG capsule 1 mg PO DAILY RF: 0 gemfibrozil 600 mg tablet 600 mg PO QHS RF: 0 potassium chloride 20 mEq Tablet Extended Release 20 meq PO BID RF: 0 Primary Care Provider: Evangelist Starr Referrals: Evangelist Starr MD [Primary Care Provider] - 3-5 Days Disposition Disposition: Home, Self Care
--- NOTE | 2021-07-28 20:20 | CT_ITS ---
INDICATION: LLQ abdominal pain EXAMINATION: CT Abdomen And Pelvis W/O Contrast Injection TECHNIQUE: Helically acquired images were obtained of the abdomen and pelvis without the use of IV contrast. A radiation dose optimization technique was used for this scan. Oral contrast: None. COMPARISON: None FINDINGS: Evaluation of the solid organs and vascular structures is limited without intravenous contrast. Visualized lung bases: Patchy groundglass airspace opacities in the right middle and lower lobes. Liver: Unremarkable Gallbladder: Surgically absent. Spleen: Multiple splenic granulomas. Pancreas: Unremarkable Adrenal Glands: Unremarkable Kidneys: Unremarkable Vasculature: Unremarkable GI Tract: Hiatal hernia. Scattered colonic diverticula. There is short segment of sigmoid colon demonstrating wall thickening and surrounding mesenteric fat stranding. No focal fluid collection or free air. Lymphadenopathy: None Peritoneum: No ascites. Bladder: Unremarkable Reproductive organs: Unremarkable Bones/Soft tissues: Mild scattered degenerative changes of the visualized spine. CT/Abdomen/Pelvis without Cont IMPRESSION: Acute sigmoid diverticulitis. No focal fluid collection or free air. Hiatal hernia. Patchy groundglass airspace opacities in the right middle and lower lobes could represent edema and/or infection. Electronically Signed: Silas Vizcarra MD at 20:53 EDT Tel , Service support ,
[2021-07-28 20:56] LABS: Bacteria 0 SEEN /hpf (None Seen); Mucous, Urine 0 SEEN /hpf (<or=2+); Red Blood Cells-Urine 0 SEEN /hpf (0-5)
[2021-07-28 21:00] LABS: Color, Urine Yellow (Yellow); Glucose, Dipstick Normal (Normal); Ketone-Dipstick 5 mg/dl (Negative); Leukocyte Esterase-Dipstick 100 /ul (Negative); Nitrite-Dipstick Negative (Negative); Occult Blood-Urine Negative /ul (Negative); Protein-Dipstick Negative (Negative); Urine Bilirubin Dipstick Negative (Negative); Urine Clarity Sl. Cloudy (Clear); Urine Urobilinogen Normal (Normal); Urine pH 6.5 (5.0 - 8.0)
[2021-07-28 21:32] LABS: White Blood Cells 0-5 SEEN /hpf (0-5)
[2021-07-28 21:33] LABS: Squamous Epithelial Cells - UA 0-5 SEEN /hpf (5-10)
== END 2021-07-28 21:23 | disposition home or self-care (01) ==
PROVIDERS: Emergency Provider Emergency Medicine; PCP Family Medicine
DX: K57.32 Diverticulitis of large intestine without perforation or abscess without bleeding (principal); I12.9 Hypertensive chronic kidney disease with stage 1 through stage 4 chronic kidney disease, or unspecified chronic kidney disease; N18.30 Chronic kidney disease, stage 3 unspecified; K21.9 Gastro-esophageal reflux disease without esophagitis; E78.5 Hyperlipidemia, unspecified; E66.9 Obesity, unspecified; Z79.899 Other long term (current) drug therapy; Z87.891 Personal history of nicotine dependence
CPT/HCPCS: 74176; 80048; 81001; 85025; 99282; A4216

== ENCOUNTER 2021-12-26 09:08 | Emergency (ER) | payer MEDICARE, SELFPAY ==
[2021-12-26 09:08] VITALS: BP 185/83; PULSE 77; RESP 16; TEMP 36; O2SAT 98; BMI 31.2
[2021-12-26] MEDS: proMETHazine 25 MG/ML Syringe 12.5 MG IM (09:33)
[2021-12-26] MEDS: Meclizine HCl 25 MG Tablet PO (09:33)
[2021-12-26 10:55] VITALS: BP 167/65; PULSE 60; RESP 15; O2SAT 95
--- NOTE | 2021-12-26 11:50 | EDS_ITS ---
HPI History of Present Illness Chief Complaint: Dizziness Narrative Narrative: 71-year-old female with vertiginous dizziness since waking up this morning. She has associated nausea. She states he has a history of vertigo and this feels very similar. She denies any head injury. She denies fever, chills. She has no chest pain or abdominal pain. She does states she has a history of hyponatremia but this does not feel like the symptoms she had with that. [facility] Medical History Abdominal pain CKD (chronic kidney disease), stage III Diverticulitis Diverticulosis Essential hypertension Former tobacco use GERD (gastroesophageal reflux disease) Hiatal hernia Hyperlipidemia Hypokalemia Hyponatremia Hypothyroidism Obesity Pancreatitis Home Medications aspirin 81 mg PO DAILY@0800 01/01/14 [History Last Taken 07/14/20 17:30] levothyroxine 88 mcg PO DAILY 01/01/14 [History Last Taken 07/14/20 07:30] losartan 100 mg PO DAILY 01/01/14 [History Last Taken 07/14/20 08:00] amlodipine 5 mg PO QHS 01/25/18 [History Last Taken 07/14/20 17:30] labetalol 100 mg PO BID 01/25/18 [History Last Taken 07/14/20 17:30] pantoprazole 40 mg PO DAILY 01/25/18 [History Last Taken 07/14/20 08:00] biotin 1 mg PO DAILY 07/06/18 [History Last Taken 07/14/20 08:00] meclizine 25 mg tablet 25 mg PO DAILY PRN 07/01/19 [History Last Taken 07/12/20 03:00] gabapentin 300 mg capsule 300 mg PO QHS cap 09/04/19 [History Last Taken 07/13/20 22:00] potassium chloride 20 meq PO BID 06/14/21 [History Last Taken Unknown] meclizine 25 mg PO TID PRN #30 tab 12/26/21 [Rx Last Taken Unknown] Allergy/AdvReac Type Severity Reaction Status Date / Time hydrochlorothiazide Allergy Intermediate rash Verified 12/26/21 09:09 lisinopril AdvReac Intermediate cough Verified 12/26/21 09:09 atorvastatin [From Lipitor] AdvReac Unknown unknown Verified 12/26/21 09:09 spironolactone AdvReac Unknown unknown Verified 12/26/21 09:09 Beta-Blockers AdvReac cough Verified 12/26/21 09:09 (Beta-Adrenergic Bloc codeine AdvReac Intolerance Verified 12/26/21 09:09 perindopril [From Aceon] AdvReac rash,cough Verified 12/26/21 09:09 Family History Mother Diabetes Heart disease Hypertension CVA (cerebral vascular accident) Sister Hypertension Heart disease Brother Heart disease Hypertension Surgical History History of carpal tunnel release of both wrists History of cholecystectomy History of colonoscopy (11/2018) History of left heart catheterization (2015) History of right and left heart catheterization (08/16/19) Hx of cholecystectomy Hx of esophagogastroduodenoscopy Hx of eye surgery Hx of repair of right rotator cuff Hx of tubal ligation Social History Smoking Status: Former smoker alcohol intake: current alcohol intake frequency: holidays/special occasions only substance use type: does not use caffeine: No what type of physical activity do you participate in: none frequency: does not exercise ROS ROS ED Constitutional Constitutional ED: Denies chills or fever(s) Eyes Eyes: Denies blurry vision or diplopia ENT ENT ED: Reports other Details: Vertiginous dizziness ; Denies rhinorrhea or sore throat Cardiovascular Cardiovascular: Denies chest pain or palpitations Respiratory/Chest Respiratory/Chest: Denies cough or dyspnea Gastrointestinal Gastrointestinal: Reports nausea; Denies abdominal pain or vomiting Genitourinary Genitourinary ED: Denies dysuria or hematuria Musculoskeletal Musculoskeletal: Denies arthralgias or myalgias Integumentary Denies Abrasions or rash Neurologic Neurologic: Denies headache(s), paresthesias or weakness EXAM Physical Exam Const Vital Signs: 12/26/21 09:08 12/26/21 09:25 12/26/21 10:55 Temperature 96.8 F L Temperature Source Temporal Pulse Rate 77 60 Respiratory Rate 16 15 Respiratory Effort Normal Non-Labored Blood Pressure 185/83 H 167/65 H Blood Pressure Mean 117 99 Pulse Ox 98 95 Oxygen Delivery Method Room Air Room Air Positive well nourished General Appearance ED: NAD; Negative for pallor HEENT Reports moist mucous membranes Negative for trauma Eyes PERRL and EOMs intact bilaterally Eyes Narrative: Nystagmus with modified Brianna-Hallpike maneuver. Vertiginous symptoms reproduced. Resp normal respiratory effort and clear to auscultation bilaterally Cardio regular rate and regular rhythm Neuro oriented x3 and CN's II-XII intact bilaterally Sensorium / Orientation: alert Psych mental status grossly normal Skin General Skin Exam: Negative for jaundice or pallor MDM MDM MDM Narrative Medical decision making narrative: Patient with a history of vertigo presenting with vertiginous symptoms. She states this feels like her vertigo. She also has a history of hyponatremia. Initially I gave her 12.5 of Phenergan IM and 25 of meclizine p.o. She would like to see if the medicine works before she does blood work. On reevaluation her dizziness has resolved. She feels she can be discharged home. I do believe this is benign positional vertigo. She is counseled on return precautions. She is given a prescription for meclizine for home. Impression: 1. Benign positional vertigo Discharge Plan Triage Chief Complaint: Dizziness ED Provider: Mino Morin Dx/Rx/DC Orders Instructions: ED BPV Vertigo Prescriptions: New meclizine 25 mg tablet 25 mg PO TID PRN (Reason: dizziness) Qty: 30 RF: 0 No Action meclizine 25 mg tablet 25 mg PO DAILY PRN (Reason: Vertigo) RF: 0 levothyroxine 88 MCG tablet 88 mcg PO DAILY RF: 0 aspirin 81 MG tablet,chewable 81 mg PO DAILY@0800 RF: 0 losartan 100 MG tablet 100 mg PO DAILY RF: 0 gabapentin 300 mg capsule 300 mg PO QHS RF: 0 amlodipine 5 MG tablet 5 mg PO QHS RF: 0 labetalol 100 MG tablet 100 mg PO BID RF: 0 pantoprazole 40 MG tablet 40 mg PO DAILY RF: 0 biotin 1 MG capsule 1 mg PO DAILY RF: 0 potassium chloride 20 mEq Tablet Extended Release 20 meq PO BID RF: 0 Primary Care Provider: Evangelist Starr Referrals: Evangelist Starr MD [Primary Care Provider] - Disposition Disposition: Home, Self Care
[2021-12-26 12:23] VITALS: BP 134/72; PULSE 69; RESP 15; O2SAT 97
== END 2021-12-26 12:24 | disposition home or self-care (01) ==
PROVIDERS: Emergency Provider Student in an Organized Health Care Education/Training Program; PCP Family Medicine; Visit Provider Student in an Organized Health Care Education/Training Program
DX: H81.10 Benign paroxysmal vertigo, unspecified ear (principal); N18.30 Chronic kidney disease, stage 3 unspecified; I12.9 Hypertensive chronic kidney disease with stage 1 through stage 4 chronic kidney disease, or unspecified chronic kidney disease; K21.9 Gastro-esophageal reflux disease without esophagitis; E03.9 Hypothyroidism, unspecified; Z87.891 Personal history of nicotine dependence; Z79.82 Long term (current) use of aspirin; Z79.899 Other long term (current) drug therapy
CPT/HCPCS: 96372; 99283; A4216

== ENCOUNTER 2023-01-26 12:39 | Emergency (ER) | payer MEDICARE, SELFPAY ==
[2023-01-26 12:43] VITALS: BP 138/61; PULSE 61; RESP 18; TEMP 36.3; O2SAT 100; BMI 35.1
--- NOTE | 2023-01-26 13:03 | EKG12_ITS ---
Test Reason : SYNCOPE Blood Pressure : / mmHG Vent. Rate : 058 BPM Atrial Rate : 058 BPM P-R Int : 208 ms QRS Dur : 118 ms QT Int : 454 ms P-R-T Axes : 035 048 053 degrees QTc Int : 445 ms Sinus bradycardia Incomplete right bundle branch block Borderline ECG Confirmed by DORIS DURAND, SERINA ([id number]), newspaper editor RAFAELA PEREZ ([id number]) on 01/27/2023 10:54:01 AM Referred By: POOJA Confirmed By:SERINA GEORGE MD
[2023-01-26 13:36] LABS: Absolute Lymphocyte Count 1.26 X10^3/uL (0.83-4.51); Absolute Neutrophil Count 7.5 X10^3/uL (2.0-7.7); Basophil# 0.11 X10^3/uL; Basophil% 1.1 % (0-1); Eosinophil# 0.33 X10^3/uL; Eosinophils% 3.3 % (0-5); Hematocrit 35.6 % (37-47); Lymphocyte # 1.26 X10^3/ul (0.83-4.51); Lymphocyte % 12.7 % (19-41); Mean Corp Hgb Conc 33.7 g/dL (32-36); Mean Corpuscular Hgb 28.4 pg (27.0-32.0); Mean Corpuscular Volume 84.4 fL (81-99); Mean Platelet Vol. 9.2 fl (6.2-12.0); Monocyte# 0.74 X10^3/uL; Monocyte% 7.5 % (0-10); NRBC Flagged by Analyzer 0 % (0-5); Neutrophil # 7.45 X10^3/uL (2.7-7.7); Neutrophil % 75.1 % (47-70); Platelet Count 284 K/mm3 (150-450); RBC Distribution Width CV 13.5 % (11.6-14.6); RBC Distribution Width SD 41.4 fl (35.1-43.9); Red Blood Count 4.22 M/mm3 (4.2-5.4); White Blood Count 9.9 K/mm3 (4.4-11.0)
[2023-01-26] MEDS: 0.9% Normal Saline 1,000 ML 999 ML IV ×2 (13:37)
--- NOTE | 2023-01-26 13:45 | RAD_ITS ---
STUDY: X-RAY CHEST REASON FOR EXAM: Female, 72 years old. Chest pain TECHNIQUE: Single AP portable view of the chest. COMPARISON: Comparison is made with prior study dated July 06, 2018. FINDINGS: EKG electrodes are seen. The lungs are clear and expanded. There is no demonstrated pleural abnormality. Normal size heart. Normal mediastinum and jackelin. Normal visualized pulmonary arteries. There is atherosclerotic tortuosity of the aortic arch and descending thoracic aorta. Normal visualized thoracic spine. There is degenerative osteoarthritis of the bilateral shoulders. Hiatal hernia. RAD/Chest 1 View (Portable) IMPRESSION: Hyperinflation. The lungs are clear. Hiatal hernia. Electronically Signed: Weston Salazar MD at 14:02 EDT ,
[2023-01-26 13:54] LABS: Anion Gap 8 (5-15); BUN 20 mg/dL (7-18); BUN/Creat Ratio 15.4 RATIO (10-20); Calcium,Total 9.3 mg/dL (8.5-10.1); Chloride 101 mmol/L (98-107); EST Glomerular Filtration Rate 43 mL/min (>60); Est Glom Filt Rate - Afr Amer 51 mL/min (>60); Estimated Creatinine Clearance 27.27 ml/min; Glucose 185 mg/dL (74-106); Potassium 3.9 mmol/L (3.5-5.1); Sodium Level 135 mmol/L (136-145); Troponin-I HS 5 pg/mL (3.0-54.0)
--- NOTE | 2023-01-26 13:56 | EX.ED.DYSGE1 ---
HPI History of Present Illness Chief Complaint: Weakness Narrative Narrative: 72-year-old female presents with episodes of syncope. She states that yesterday she started to get a scratchy throat. She notes that she has had a little bit of a cough. Today she started having diarrhea. She states she got up off the couch to try to walk to the bathroom and became very lightheaded and nauseous. She believes she vomited on the floor. She did make it to the bathroom. Her daughter tried to help her up and she fainted again. She had an episode of diarrhea. She denies chest pain or shortness of breath. He does admit to lightheadedness. Patient states he has a history of hypokalemia and hyponatremia and she was like this 1 other time. She also has a history of syncope in the past. No history of fevers or chills. [facility] Medical History Abdominal pain CKD (chronic kidney disease), stage III Diverticulitis Diverticulosis Essential hypertension Former tobacco use GERD (gastroesophageal reflux disease) Hiatal hernia Hyperlipidemia Hypokalemia Hyponatremia Hypothyroidism Obesity Pancreatitis Home Medications aspirin 81 mg chewable tablet 81 mg PO DAILY@0800 HEALTH MAINTENANCE 01/01/14 [History Last Taken 07/14/20 17:30] levothyroxine 88 mcg tablet 88 mcg PO DAILY HYPOTHYROIDISM 01/01/14 [History Last Taken 07/14/20 07:30] losartan 100 mg tablet 100 mg PO DAILY BLOOD PRESSURE 01/01/14 [History Last Taken 07/14/20 08:00] amlodipine 5 mg tablet 5 mg PO QHS BLOOD PRESSURE 01/25/18 [History Last Taken 07/14/20 17:30] labetalol 100 mg tablet 200 mg PO BID HEART 01/25/18 [History Last Taken 07/14/20 17:30] pantoprazole 40 mg tablet,delayed release 40 mg PO DAILY GERD 01/25/18 [History Last Taken 07/14/20 08:00] biotin 1 mg capsule 1 mg PO DAILY supplement 07/06/18 [History Last Taken 07/14/20 08:00] meclizine 25 mg tablet 25 mg PO DAILY PRN Vertigo 07/01/19 [History Last Taken 07/12/20 03:00] gabapentin 300 mg capsule 300 mg PO QHS NEUROPATHY 10/30/19 [History Last Taken 07/13/20 22:00] potassium chloride 20 mEq tablet,extended release 20 meq PO BID 06/14/21 [History Last Taken Unknown] meclizine 25 mg tablet 25 mg PO TID PRN dizziness #30 tabs 12/26/21 [Rx Last Taken Unknown] amlodipine 2.5 mg tablet 2.5 mg PO DAILY 01/26/23 [History Last Taken Unknown] isosorbide mononitrate 30 mg tablet,extended release 24 hr 30 mg PO DAILY 01/26/23 [History Last Taken Unknown] Allergy/AdvReac Type Severity Reaction Status Date / Time hydrochlorothiazide Allergy Intermediate rash Verified 01/26/23 12:42 lisinopril AdvReac Intermediate cough Verified 01/26/23 12:42 atorvastatin [From Lipitor] AdvReac Unknown unknown Verified 01/26/23 12:42 spironolactone AdvReac Unknown unknown Verified 01/26/23 12:42 Beta-Blockers AdvReac cough Verified 01/26/23 12:42 (Beta-Adrenergic Bloc codeine AdvReac Intolerance Verified 01/26/23 12:42 perindopril [From Aceon] AdvReac rash,cough Verified 01/26/23 12:42 Family History Mother Diabetes Heart disease Hypertension CVA (cerebral vascular accident) Sister Hypertension Heart disease Brother Heart disease Hypertension Surgical History History of carpal tunnel release of both wrists History of cholecystectomy History of colonoscopy (11/2018) History of left heart catheterization (2015) History of right and left heart catheterization (08/16/19) Hx of cholecystectomy Hx of esophagogastroduodenoscopy Hx of eye surgery Hx of repair of right rotator cuff Hx of tubal ligation Social History Smoking Status: Former smoker alcohol intake: current alcohol intake frequency: holidays/special occasions only substance use type: does not use caffeine: No what type of physical activity do you participate in: none frequency: does not exercise ROS ROS ED Constitutional Constitutional ED: Denies chills or fever(s) Eyes Eyes: Denies change in vision or diplopia ENT ENT ED: Denies rhinorrhea or sore throat Cardiovascular Cardiovascular: Denies chest pain Respiratory/Chest Respiratory/Chest: Reports cough; Denies dyspnea or dyspnea on exertion Gastrointestinal Gastrointestinal: Reports diarrhea, nausea and vomiting Genitourinary Genitourinary ED: Denies dysuria or hematuria Musculoskeletal Musculoskeletal: Denies arthralgias or back pain Integumentary Denies abscess Neurologic Neurologic: Reports headache(s) EXAM Physical Exam Const Vital Signs: 01/26/23 12:43 01/26/23 12:58 01/26/23 13:40 Temperature 97.4 F L Temperature Source Temporal Pulse Rate 61 Pulse Rate [Lying] Pulse Rate [Sitting (for 1 minute prior to obtaining)] Pulse Rate [Standing (for 1 minute prior to obtaining)] Respiratory Rate 18 Respiratory Pattern Normal Blood Pressure 138/61 H Blood Pressure [Lying] Blood Pressure [Sitting (for 1 minute prior to obtaining)] Blood Pressure [Standing (for 1 minute prior to obtaining)] Blood Pressure Mean 86 Blood Pressure Mean [Lying] Blood Pressure Mean [Sitting (for 1 minute prior to obtaining)] Blood Pressure Mean [Standing (for 1 minute prior to obtaining)] Pulse Ox 100 Oxygen Delivery Method Room Air Room Air 01/26/23 14:27 01/26/23 15:00 01/26/23 16:00 Temperature Temperature Source Pulse Rate 68 64 Pulse Rate [Lying] 70 Pulse Rate [Sitting (for 1 minute prior to obtaining)] 70 Pulse Rate [Standing (for 1 minute prior to obtaining)] 70 Respiratory Rate 16 13 Respiratory Pattern Blood Pressure 119/56 L 128/54 H Blood Pressure [Lying] 125/59 H Blood Pressure [Sitting (for 1 minute prior to obtaining)] 114/61 Blood Pressure [Standing (for 1 minute prior to obtaining)] 128/68 H Blood Pressure Mean 77 78 Blood Pressure Mean [Lying] 81 Blood Pressure Mean [Sitting (for 1 minute prior to obtaining)] 78 Blood Pressure Mean [Standing (for 1 minute prior to obtaining)] 88 Pulse Ox 99 94 Oxygen Delivery Method Room Air Room Air Positive well nourished General Appearance ED: NAD HEENT Reports moist mucous membranes Eyes PERRL and EOMs intact bilaterally General Eye ED: Yes pale conjunctiva and scleral icterus MDM MDM MDM Narrative Medical decision making narrative: 72-year-old female presenting with 2 episodes of near syncope. This happened after she was trying to go to the bathroom for nausea and having diarrhea at same time. Apparently she fainted and then when she felt up again she fainted again. This started after she had a slight scratchy throat and a cough. Patient also has history of hyponatremia and hypokalemia differential at this point includes but is not limited to gastritis, gastroenteritis ACS, syncope, hyponatremia, hypokalemia, viral syndrome, pneumonia. CBC to assess white blood cell count, hemoglobin, platelets, differential. BMP to assess renal function, electrolytes, glucose and anion gap. High-sensitivity troponin, EKG and chest x-ray as well. EKG on my interpretation shows a normal sinus rhythm with a ventricular rate of 58 bpm without sign of ischemic change or dysrhythmia. Chest x-ray my interpretation is no acute process. Radiology interprets this and agrees. CBC unremarkable. BMP shows an increase in creatinine at 1.30 and GFR of 43. Glucose is elevated at 185 without anion gap. patient given 2 L of IV fluids. Repeat high-sensitivity troponin is 5 to 2 hours. Patient had negative orthostatic vital signs and is walked to the bathroom multiple times with stable gait. No more episodes of nausea or syncope. At this point I feel she is stable to be discharged home. Return precautions were discussed. Impression: 1. Syncope 2. NURA 3. Nausea/vomiting 4. Diet Lab Data Attestation: I reviewed the patient's lab results. Labs: Laboratory Results - last 24 hr 01/26/23 01/26/23 01/26/23 13:25 13:25 15:12 WBC 9.9 RBC 4.22 Hgb 12.0 Hct 35.6 L MCV 84.4 MCH 28.4 MCHC 33.7 RDW Std Deviation 41.4 RDW Coeff of Cami 13.5 Plt Count 284 MPV 9.2 Immature Gran % (Auto) 0.300 Neut % (Auto) 75.1 H Lymph % (Auto) 12.7 L [place] % (Auto) 7.5 Eos % (Auto) 3.3 Baso % (Auto) 1.1 H Absolute Neuts (auto) 7.5 Absolute Lymphs (auto) 1.26 Nucleated RBC % 0 Sodium 135 L Potassium 3.9 Chloride 101 Carbon Dioxide 26.0 Anion Gap 8 BUN 20 H Creatinine 1.30 H Estim Creat Clear Calc 27.27 Est GFR (MDRD) Af Amer 51 L Est GFR (MDRD) Non-Af 43 L BUN/Creatinine Ratio 15.4 Glucose 185 H Calcium 9.3 Troponin I High Sens 5 5 Radiography Diagnostic Testing: Clinical Impression(s) from Imaging Studies Chest X-Ray 01/26/23 13:45 IMPRESSION: Hyperinflation. The lungs are clear. Hiatal hernia. Electronically Signed: Weston Salazar MD at 14:02 EDT , Discharge Plan Triage Chief Complaint: Weakness ED Provider: Mino Morin Dx/Rx/DC Orders Instructions: ED Dizziness or Syncope ... Prescriptions: No Action meclizine 25 mg tablet 25 mg PO DAILY PRN (Reason: Vertigo) levothyroxine 88 MCG tablet 88 mcg PO DAILY aspirin 81 MG tablet,chewable 81 mg PO DAILY@0800 losartan 100 MG tablet 100 mg PO DAILY gabapentin 300 mg capsule 300 mg PO QHS amlodipine 5 MG tablet 5 mg PO QHS Label Comments: labetalol 100 MG tablet 200 mg PO BID Label Comments: pantoprazole 40 MG tablet 40 mg PO DAILY biotin 1 MG capsule 1 mg PO DAILY potassium chloride 20 mEq Tablet Extended Release 20 meq PO BID meclizine 25 mg tablet 25 mg PO TID PRN (Reason: dizziness) Qty: 30 0RF amlodipine 2.5 mg tablet 2.5 mg PO DAILY isosorbide mononitrate 30 mg Tablet Extended Release 24 Hr 30 mg PO DAILY Primary Care Provider: Evangelist Starr Referrals: Evangelist Starr MD [Primary Care Provider] - Disposition Disposition: Home, Self Care
[2023-01-26 14:27] VITALS: BP 114/61; BP 125/59; BP 128/68; PULSE 70
[2023-01-26 15:00] VITALS: BP 119/56; PULSE 68; RESP 16; O2SAT 99
[2023-01-26 16:00] VITALS: BP 128/54; PULSE 64; RESP 13; O2SAT 94
[2023-01-26 16:29] LABS: Troponin-I HS 5 pg/mL (3.0-54.0)
[2023-01-26 17:11] VITALS: BP 128/54; PULSE 70; RESP 19; O2SAT 96
== END 2023-01-26 17:24 | disposition home or self-care (01) ==
PROVIDERS: Emergency Provider Student in an Organized Health Care Education/Training Program; PCP Family Medicine; Visit Provider Student in an Organized Health Care Education/Training Program
DX: R55 Syncope and collapse (principal); N17.9 Acute kidney failure, unspecified; N18.30 Chronic kidney disease, stage 3 unspecified; I12.9 Hypertensive chronic kidney disease with stage 1 through stage 4 chronic kidney disease, or unspecified chronic kidney disease; R73.9 Hyperglycemia, unspecified; R19.7 Diarrhea, unspecified; Z87.891 Personal history of nicotine dependence; R11.2 Nausea with vomiting, unspecified; E78.5 Hyperlipidemia, unspecified
CPT/HCPCS: 71045; 80048; 84484; 85025; 87428; 93005; 96360; 99285; J7030; A4216

== ENCOUNTER 2023-12-12 10:15 | Emergency (ER) | payer MEDICARE, SELFPAY ==
[2023-12-12 10:16] VITALS: BP 122/58; PULSE 75; RESP 14; TEMP 36.6; O2SAT 96; BMI 38.2
--- NOTE | 2023-12-12 10:31 | EX.ED.DYSGE1 ---
HPI History of Present Illness Chief Complaint: Weakness Detail of Chief Complaint: Generalized weakness and not feeling well Informant: patient and family Narrative Narrative: Patient presents to the emergency department complaint not feeling well x 3 days. She presents via EMS from home. Patient states that she started with a cough 3 days ago. She is stating that she was exposed to somebody with RSV in [place]. Patient having vomiting today x 1 and had 2-3 episodes of watery stool. She denies any abdominal pain. She has had no fever. She does complain of a headache and body aches. Generally feels weak. [facility] Medical History Abdominal pain CKD (chronic kidney disease), stage III Diverticulitis Diverticulosis Essential hypertension Former tobacco use GERD (gastroesophageal reflux disease) Hiatal hernia Hyperlipidemia Hypokalemia Hyponatremia Hypothyroidism Obesity Pancreatitis Home Medications aspirin 81 mg chewable tablet 81 mg PO DAILY@0800 HEALTH MAINTENANCE 01/01/14 [History Last Taken 07/14/20 17:30] levothyroxine 88 mcg tablet 88 mcg PO DAILY HYPOTHYROIDISM 01/01/14 [History Last Taken 07/14/20 07:30] losartan 100 mg tablet 100 mg PO DAILY BLOOD PRESSURE 01/01/14 [History Last Taken 07/14/20 08:00] amlodipine 5 mg tablet 5 mg PO QHS BLOOD PRESSURE 01/25/18 [History Last Taken 07/14/20 17:30] labetalol 100 mg tablet 200 mg PO BID HEART 01/25/18 [History Last Taken 07/14/20 17:30] pantoprazole 40 mg tablet,delayed release 40 mg PO DAILY GERD 01/25/18 [History Last Taken 07/14/20 08:00] biotin 1 mg capsule 1 mg PO DAILY supplement 07/06/18 [History Last Taken 07/14/20 08:00] meclizine 25 mg tablet 25 mg PO DAILY PRN Vertigo 07/01/19 [History Last Taken 07/12/20 03:00] gabapentin 300 mg capsule 300 mg PO QHS NEUROPATHY 09/04/19 [History Last Taken 07/13/20 22:00] potassium chloride 20 mEq tablet,extended release 20 meq PO BID 06/14/21 [History Last Taken Unknown] meclizine 25 mg tablet 25 mg PO TID PRN dizziness #30 tabs 12/26/21 [Rx Last Taken Unknown] amlodipine 2.5 mg tablet 2.5 mg PO DAILY 01/26/23 [History Last Taken Unknown] isosorbide mononitrate 30 mg tablet,extended release 24 hr 30 mg PO DAILY 01/26/23 [History Last Taken Unknown] benzonatate 200 mg capsule 200 mg PO TID PRN cough #20 caps 12/12/23 [Rx Last Taken Unknown] ondansetron 4 mg disintegrating tablet 4 mg PO Q8H PRN PRN Nausea #10 tabs 12/12/23 [Rx Last Taken Unknown] Allergy/AdvReac Type Severity Reaction Status Date / Time hydrochlorothiazide Allergy Intermediate rash Verified 12/12/23 10:15 lisinopril AdvReac Intermediate cough Verified 12/12/23 10:15 atorvastatin [From Lipitor] AdvReac Unknown unknown Verified 12/12/23 10:15 spironolactone AdvReac Unknown unknown Verified 12/12/23 10:15 Beta-Blockers AdvReac cough Verified 12/12/23 10:15 (Beta-Adrenergic Bloc codeine AdvReac Intolerance Verified 12/12/23 10:15 perindopril [From Aceon] AdvReac rash,cough Verified 12/12/23 10:15 Family History Mother Diabetes Heart disease Hypertension CVA (cerebral vascular accident) Sister Hypertension Heart disease Brother Heart disease Hypertension Surgical History History of carpal tunnel release of both wrists History of cholecystectomy History of colonoscopy (11/2018) History of left heart catheterization (2015) History of right and left heart catheterization (08/16/19) Hx of cholecystectomy Hx of esophagogastroduodenoscopy Hx of eye surgery Hx of repair of right rotator cuff Hx of tubal ligation Social History Smoking Status: Former smoker alcohol intake: current alcohol intake frequency: holidays/special occasions only substance use type: does not use caffeine: No what type of physical activity do you participate in: none frequency: does not exercise ROS ROS ED Review of Systems ROS Unobtainable: other Constitutional Constitutional ED: Reports lethargy; Denies chills, fever(s), sweats or weight loss Eyes Eyes: Denies blurry vision, change in vision or diplopia ENT ENT ED: Denies rhinorrhea or sore throat Cardiovascular Cardiovascular: Denies chest pain, orthopnea or racing heartbeat Respiratory/Chest Respiratory/Chest: Reports cough; Denies dyspnea, dyspnea on exertion, orthopnea or sputum Gastrointestinal Gastrointestinal: Reports diarrhea, nausea and vomiting; Denies abdominal pain Genitourinary Genitourinary ED: Denies dysuria, hematuria or urinary frequency Musculoskeletal Musculoskeletal: Reports myalgias; Denies arthralgias, back pain or neck pain Integumentary Denies abscess, Abrasions or rash Neurologic Neurologic: Reports headache(s); Denies weakness Psychiatric Psychiatric: Denies anxiety, depression or suicidal thoughts Endocrine Endocrinology: Denies polydipsia, polyphagia or polyuria Hematologic/Lymphatic Hematologic/Lymphatic: Denies easy bleeding, easy bruising or lymphadenopathy Allergic/Immunologic Allergic/Immunologic ED: Denies mouth swelling, tongue swelling or urticaria EXAM Physical Exam Const Vital Signs: 12/12/23 10:16 12/12/23 11:31 12/12/23 12:15 Temperature 97.9 F Temperature Source Oral Pulse Rate 75 68 Respiratory Rate 14 18 Respiratory Effort Normal Respiratory Pattern Normal Blood Pressure 122/58 H 133/60 H Blood Pressure Mean 79 84 Pulse Ox 96 91 Oxygen Delivery Method Room Air Room Air Positive well nourished and well developed General Appearance ED: well developed and NAD HEENT Reports TM's clear and moist mucous membranes normocephalic and atraumatic; Negative for trauma or tenderness Tympanic Membrane ED: Yes TM's clear Eyes PERRL and EOMs intact bilaterally General Eye ED: Negative for pale conjunctiva or scleral icterus Neck no lymphadenopathy, supple and no JVD General: Negative for tenderness Chest Wall inspection of chest normal and palpation of chest normal Chest: Negative for tenderness Resp normal respiratory effort and clear to auscultation bilaterally Effort and Inspection: Negative for respiratory distress or pain with movement Auscultation: Negative for rhonchi, wheezes or diminished lung sounds Cardio regular rate, regular rhythm, S1 normal heart sound, S2 normal heart sound and no murmurs Peripheral Pulses: pulses 2+ throughout GI normal to inspection, nondistended, normoactive bowel sounds, soft to palpation, non-tender, non-distended and no masses Back/Spine no CVA tenderness and no thoracic nor lumbar tenderness Extremity normal to inspection General Extremety ED: Negative for edema General Extremity: Negative for edema Neuro oriented x3, CN's II-XII intact bilaterally, no sensory deficits noted and gait normal Sensorium / Orientation: awake, alert, oriented to person, oriented to place and oriented to time Motor Exam: strength 5/5 throughout and strength abnormal Psych mental status grossly normal Skin no rashes or lesions noted and no wounds MDM MDM MDM Narrative Medical decision making narrative: Patient presents with feeling lightheaded and cough and chills. Symptoms started 3 days ago. IV line established. CBC with differential obtained showed white count 7.2 with hemoglobin of 12.2 and platelet count of 253. Chemistries unremarkable. Patient had COVID and flu and RSV testing and she was positive for influenza A. She and her daughter do not want Tamiflu. They are comfortable going home. I will write her a prescription for Tessalon Perles as well as Zofran. Clinically she looks well. Lab Data Attestation: I reviewed the patient's lab results. Labs: Laboratory Results - last 24 hr 12/12/23 10:23 WBC 7.2 RBC 4.28 Hgb 12.2 Hct 36.8 L MCV 86.0 MCH 28.5 MCHC 33.2 RDW Std Deviation 41.1 RDW Coeff of Cami 13.2 Plt Count 253 MPV 9.7 Immature Gran % (Auto) 1.200 H Neut % (Auto) 76.6 H Lymph % (Auto) 7.7 L [place] % (Auto) 11.0 H Eos % (Auto) 2.3 Baso % (Auto) 1.2 H Absolute Neuts (auto) 5.5 Absolute Lymphs (auto) 0.56 L Nucleated RBC % 0 Sodium 130 L Potassium 4.2 Chloride 99 Carbon Dioxide 27.0 Anion Gap 4 L BUN 12 Creatinine 1.06 H Estim Creat Clear Calc 45.45 Est GFR (MDRD) Af Amer 65 Est GFR (MDRD) Non-Af 54 L BUN/Creatinine Ratio 11.3 Glucose 114 H Calcium 8.7 Radiography Diagnostic Testing: Clinical Impression(s) from Imaging Studies Chest X-Ray 12/12/23 11:15 IMPRESSION: 1. No radiographic evidence of acute cardiopulmonary disease. 2. Hiatal hernia. Electronically Signed: Farooq Santamaria MD at 11:34 EST , 1 view chest x-ray obtained interpreted by myself as no evidence of infiltrate or acute disease process. Radiology in agreement. Discharge Plan Triage Chief Complaint: Weakness ED Provider: Di Thomas Dx/Rx/DC Orders Clinical Impression: Influenza A Instructions: ED Influenza (Adult) Prescriptions: New ondansetron [ondansetron] 4 mg tablet,disintegrating 4 mg PO Q8H PRN PRN (Reason: Nausea) Qty: 10 0RF benzonatate 200 mg capsule 200 mg PO TID PRN (Reason: cough) Qty: 20 0RF No Action meclizine 25 mg tablet 25 mg PO DAILY PRN (Reason: Vertigo) levothyroxine 88 MCG tablet 88 mcg PO DAILY aspirin 81 MG tablet,chewable 81 mg PO DAILY@0800 losartan 100 MG tablet 100 mg PO DAILY gabapentin 300 mg capsule 300 mg PO QHS amlodipine 5 MG tablet 5 mg PO QHS Patient Comments: labetalol 100 MG tablet 200 mg PO BID Patient Comments: pantoprazole 40 MG tablet 40 mg PO DAILY biotin 1 MG capsule 1 mg PO DAILY potassium chloride 20 mEq Tablet Extended Release 20 meq PO BID meclizine 25 mg tablet 25 mg PO TID PRN (Reason: dizziness) Qty: 30 0RF amlodipine 2.5 mg tablet 2.5 mg PO DAILY isosorbide mononitrate 30 mg Tablet Extended Release 24 Hr 30 mg PO DAILY Primary Care Provider: Evangelist Starr Referrals: Evangelist Starr MD [Primary Care Provider] - 3-5 Days Disposition Disposition: Home, Self Care
[2023-12-12] MEDS: Ondansetron 4 MG/2 ML Vial IV (11:12)
[2023-12-12] MEDS: 0.9% Normal Saline (1000mL) 1,000 ML 1000 ML IV (11:12)
--- NOTE | 2023-12-12 11:15 | RAD_ITS ---
INDICATION: cough EXAMINATION/TECHNIQUE: X-RAY - XR Chest 1 View COMPARISON: Prior study dated: 01/26/2023. FINDINGS: LINES/DEVICES: None. LUNGS: No consolidation, edema or effusion. No pneumothorax. MEDIASTINUM AND CARDIOVASCULAR STRUCTURES: Cardiac silhouette not enlarged. Central airways and mediastinal contour are unremarkable. BONES AND SOFT TISSUES: Unremarkable osseous structures. Hiatal hernia is again seen. RAD/Chest 1 View (Portable) IMPRESSION: 1. No radiographic evidence of acute cardiopulmonary disease. 2. Hiatal hernia. Electronically Signed: Farooq Santamaria MD at 11:34 EST ,
[2023-12-12 11:20] LABS: Absolute Lymphocyte Count 0.56 X10^3/uL (0.83-4.51); Absolute Neutrophil Count 5.5 X10^3/uL (2.0-7.7); Basophil# 0.09 X10^3/uL; Basophil% 1.2 % (0-1); Eosinophil# 0.17 X10^3/uL; Eosinophils% 2.3 % (0-5); Hematocrit 36.8 % (37-47); Hemoglobin 12.2 g/dL (12.0-15.0); Lymphocyte # 0.56 X10^3/ul (0.83-4.51); Lymphocyte % 7.7 % (19-41); Mean Corp Hgb Conc 33.2 g/dL (32-36); Mean Corpuscular Hgb 28.5 pg (27.0-32.0); Mean Platelet Vol. 9.7 fl (6.2-12.0); NRBC Flagged by Analyzer 0 % (0-5); Neutrophil # 5.53 X10^3/uL (2.7-7.7); Neutrophil % 76.6 % (47-70); POSITIVE DIFFERENTIAL YES; Platelet Count 253 K/mm3 (150-450); RBC Distribution Width CV 13.2 % (11.6-14.6); RBC Distribution Width SD 41.1 fl (35.1-43.9); Red Blood Count 4.28 M/mm3 (4.2-5.4); White Blood Count 7.2 K/mm3 (4.4-11.0)
[2023-12-12 11:27] LABS: Anion Gap 4 (5-15); BUN 12 mg/dL (7-18); BUN/Creat Ratio 11.3 RATIO (10-20); Calcium,Total 8.7 mg/dL (8.5-10.1); Chloride 99 mmol/L (98-107); Creatinine, Serum 1.06 mg/dL (0.55-1.02); EST Glomerular Filtration Rate 54 mL/min (>60); Est Glom Filt Rate - Afr Amer 65 mL/min (>60); Estimated Creatinine Clearance 45.45 ml/min; Glucose 114 mg/dL (74-106); Potassium 4.2 mmol/L (3.5-5.1); Sodium Level 130 mmol/L (136-145)
[2023-12-12 12:15] VITALS: BP 133/60; PULSE 68; RESP 18; O2SAT 91
[2023-12-12 13:34] VITALS: BP 134/65; PULSE 82; RESP 24; O2SAT 94
== END 2023-12-12 13:38 | disposition home or self-care (01) ==
PROVIDERS: Emergency Provider Emergency Medicine; PCP Family Medicine; Visit Provider Emergency Medicine
DX: J10.1 Influenza due to other identified influenza virus with other respiratory manifestations (principal); N18.30 Chronic kidney disease, stage 3 unspecified; Z87.891 Personal history of nicotine dependence; I12.9 Hypertensive chronic kidney disease with stage 1 through stage 4 chronic kidney disease, or unspecified chronic kidney disease; K21.9 Gastro-esophageal reflux disease without esophagitis; E78.5 Hyperlipidemia, unspecified; R19.7 Diarrhea, unspecified; R51.9 Headache, unspecified
CPT/HCPCS: 71045; 80048; 85025; 87631; 96361; 96374; 99283; J7030; A4216; J2405

== ENCOUNTER 2024-06-14 16:53 | Emergency (ER) | payer MEDICARE, SELFPAY ==
[2024-06-14 16:54] VITALS: BP 126/68; PULSE 71; RESP 14; TEMP 36.3; O2SAT 98; BMI 34.1
--- NOTE | 2024-06-14 17:56 | CT_ITS ---
EXAM: CT Abdomen And Pelvis W/O Contrast Injection HISTORY: LLQ pain -- hx ckd, hx diverticulitis TECHNIQUE: Routine protocol CT abdomen and pelvis. IV Contrast: None.. Oral contrast: None. RADIATION DOSAGE (If Supplied By Facility): CTDIvol = ( 14.76 ) mGy, DLP = ( 686.05 ) mGycm Individualized dose optimization techniques were used for this CT. COMPARISON: CT abdomen and pelvis 07/28/2021. LIMITATIONS: None. FINDINGS: LOWER CHEST: Reticular opacities in the lower lungs likely scarring. Moderate sized hiatal hernia. LIVER: Grossly unremarkable. GALLBLADDER AND BILIARY TREE: The gallbladder is surgically absent. PANCREAS: Grossly unremarkable. SPLEEN: Small calcifications previous granulomatous process. ADRENAL GLANDS: Grossly unremarkable. KIDNEYS AND URETERS: No calculi demonstrated. No hydronephrosis. PERITONEUM: No free air. No free fluid. BOWEL: Moderate sized hiatal hernia with approximately one half of the stomach in the lower chest, similar to the prior study. Mild wall thickening of the sigmoid colon with adjacent stranding. Diverticula in this region and throughout the colon. No bowel obstruction. APPENDIX: Visualized and unremarkable. No evidence of acute appendicitis. VESSELS: Abdominal aorta is normal caliber. REPRODUCTIVE ORGANS: Grossly unremarkable URINARY BLADDER: Grossly unremarkable. ABDOMINAL WALL: Unremarkable. BONES: No acute abnormalities. CT/Abdomen/Pelvis without Cont IMPRESSION: Acute sigmoid diverticulitis. Hiatal hernia. Electronically Signed: Lynsey Lao MD at 19:01 EDT ,
[2024-06-14] MEDS: 0.9% Normal Saline (1000mL) 1,000 ML 1000 ML IV (18:02)
[2024-06-14 18:17] LABS: Anion Gap 5 (5-15); BUN 16 mg/dL (7-18); BUN/Creat Ratio 12.9 RATIO (10-20); Chloride 99 mmol/L (98-107); Creatinine, Serum 1.24 mg/dL (0.55-1.02); EST Glomerular Filtration Rate 45 mL/min (>60); Est Glom Filt Rate - Afr Amer 54 mL/min (>60); Estimated Creatinine Clearance 35.96 ml/min; Glucose 99 mg/dL (74-106); Potassium 4.2 mmol/L (3.5-5.1); Sodium Level 133 mmol/L (136-145)
[2024-06-14 18:28] LABS: Absolute Lymphocyte Count 1.91 X10^3/uL (0.83-4.51); Basophil# 0.11 X10^3/uL; Eosinophil# 0.18 X10^3/uL; Eosinophils% 1.6 % (0-5); Hematocrit 35.7 % (37-47); Hemoglobin 11.7 g/dL (12.0-15.0); Lymphocyte # 1.91 X10^3/ul (0.83-4.51); Lymphocyte % 16.6 % (19-41); Mean Corp Hgb Conc 32.8 g/dL (32-36); Mean Corpuscular Volume 85.4 fL (81-99); Mean Platelet Vol. 9.6 fl (6.2-12.0); Monocyte# 1.26 X10^3/uL; Monocyte% 10.9 % (0-10); NRBC Flagged by Analyzer 0 % (0-5); Neutrophil # 8.01 X10^3/uL (2.7-7.7); Neutrophil % 69.5 % (47-70); Platelet Count 298 K/mm3 (150-450); RBC Distribution Width CV 13.3 % (11.6-14.6); RBC Distribution Width SD 41.6 fl (35.1-43.9); Red Blood Count 4.18 M/mm3 (4.2-5.4); White Blood Count 11.5 K/mm3 (4.4-11.0)
[2024-06-14 19:36] VITALS: BP 148/63; PULSE 70; RESP 18; TEMP 36.6; O2SAT 94
--- NOTE | 2024-06-14 19:41 | ED.VIS.GI ---
HPI HPI - GI History of Present Illness Chief Complaint: Abd Pain Informant: patient and family Narrative Narrative: Here with granddaughter reporting 2-day history left lower quad abdominal pain. Subjective chills. No fevers. States feels similar to diverticulitis. Last time was 4 years ago. Has had 5-6 episodes of it. She is post have surgery 4 years ago however with prep of her bowel she had diarrhea and up in the ED. No urinary symptoms. Stated a walk around pain was more intense however subsided. Had yellow mucus stools today. Nonbloody stools. Cholecystectomy, tubal ligation in the past. Prior similar symptoms: Yes PFSH PFSH Medical History Hypothyroidism Pancreatitis Hiatal hernia Obesity Former tobacco use CKD (chronic kidney disease), stage III Hyponatremia GERD (gastroesophageal reflux disease) Diverticulitis Hyperlipidemia Essential hypertension Abdominal pain Hypokalemia Diverticulosis Home Medications ?Medication ?Instructions ?Recorded ?Last Taken ?Type aspirin 81 mg chewable tablet 81 mg PO DAILY@0800 HEALTH 01/01/14 06/13/24 History MAINTENANCE levothyroxine 88 mcg tablet 88 mcg PO DAILY HYPOTHYROIDISM 01/01/14 06/14/24 History losartan 100 mg tablet 100 mg PO DAILY BLOOD PRESSURE 01/01/14 06/14/24 History amlodipine 5 mg tablet 5 mg PO QHS BLOOD PRESSURE 01/25/18 06/13/24 History labetalol 100 mg tablet 200 mg PO BID HEART 01/25/18 06/14/24 History biotin 1 mg capsule 1 mg PO DAILY supplement 07/06/18 06/14/24 History gabapentin 300 mg capsule 300 mg PO QHS NEUROPATHY 09/04/19 06/13/24 History potassium chloride 20 mEq 40 meq PO BID 06/14/21 06/14/24 History tablet,extended release meclizine 25 mg tablet 25 mg PO TID PRN dizziness #30 tabs 12/26/21 Unknown Rx amlodipine 2.5 mg tablet 2.5 mg PO DAILY 01/26/23 06/13/24 History isosorbide mononitrate 30 mg 30 mg PO DAILY 01/26/23 06/14/24 History tablet,extended release 24 hr ondansetron 4 mg disintegrating 4 mg PO Q8H PRN PRN Nausea #10 tabs 12/12/23 Unknown Rx tablet blood sugar diagnostic (True 06/14/24 Unknown History Metrix Glucose Test Strip) cefdinir 300 mg capsule 300 mg PO Q12H #14 caps 06/14/24 Unknown Rx lancets 33 gauge (TRUEplus Lancets) 06/14/24 Unknown History metronidazole 500 mg tablet 500 mg PO Q8H #21 tabs 06/14/24 Unknown Rx ranolazine 500 mg tablet,extended 500 mg PO BID 06/14/24 06/14/24 History release,12 hr Allergy/AdvReac Type Severity Reaction Status Date / Time hydrochlorothiazide Allergy Intermediate rash Verified 06/14/24 16:54 lisinopril AdvReac Intermediate cough Verified 06/14/24 16:54 atorvastatin (From Lipitor) AdvReac Unknown unknown Verified 06/14/24 16:54 spironolactone AdvReac Unknown unknown Verified 06/14/24 16:54 Beta-Blockers AdvReac cough Verified 06/14/24 16:54 (Beta-Adrenergic Bloc codeine AdvReac Intolerance Verified 06/14/24 16:54 perindopril (From Aceon) AdvReac rash,cough Verified 06/14/24 16:54 Family History Mother Diabetes Heart disease Hypertension CVA (cerebral vascular accident) Sister Hypertension Heart disease Brother Heart disease Hypertension Surgical History History of cholecystectomy History of right and left heart catheterization (08/16/19) Hx of esophagogastroduodenoscopy History of left heart catheterization (2015) History of colonoscopy (11/2018) Hx of repair of right rotator cuff Hx of eye surgery Hx of tubal ligation History of carpal tunnel release of both wrists Hx of cholecystectomy Social History Smoking Status: Former smoker alcohol intake: current alcohol intake frequency: holidays/special occasions only substance use type: does not use caffeine: No what type of physical activity do you participate in: none frequency: does not exercise ROS ROS ED Constitutional Constitutional ED: Reports chills; Denies fever(s) or sweats Eyes Eyes: Denies change in vision ENT ENT ED: Denies dysphagia or sore throat Cardiovascular Cardiovascular: Denies chest pain, leg edema, palpitations or racing heartbeat Respiratory/Chest Respiratory/Chest: Denies cough, dyspnea or dyspnea on exertion Gastrointestinal Gastrointestinal: Reports abdominal pain; Denies diarrhea, nausea or vomiting Genitourinary Genitourinary ED: Denies dysuria, hematuria or urinary frequency Musculoskeletal Musculoskeletal: Denies back pain, extremity pain or neck pain Integumentary Denies rash or wounds Neurologic Neurologic: Denies headache(s), paresthesias or weakness EXAM Physical Exam Const Vital Signs: 06/14/24 16:54 06/14/24 19:36 06/14/24 19:36 Temperature 97.3 F L 97.9 F Temperature Source Temporal Pulse Rate 71 70 70 Respiratory Rate 14 18 18 Blood Pressure 126/68 H 148/63 H 148/63 H Blood Pressure Mean 87 91 91 Pulse Ox 98 94 94 Oxygen Delivery Method Room Air Room Air Positive well nourished and well developed General Appearance ED: well developed and NAD HEENT Reports moist mucous membranes normocephalic and atraumatic Eyes EOMs intact bilaterally and conjunctivae normal General Eye ED: Yes normal appearance of both eyes Neck no lymphadenopathy and supple General: Negative for tenderness Chest Wall Chest: Negative for tenderness Resp normal respiratory effort and normal air movement Effort and Inspection: symmetric chest movement; Negative for respiratory distress Cardio regular rate, regular rhythm and no murmurs Peripheral Pulses: pulses 2+ throughout GI GI Narrative: Tender deep palpation left lower quadrant. No guarding or rebound. Negative Ruggiero's or McBurney's tenderness. Palpation: Negative for guarding or rebound tenderness present Back/Spine no CVA tenderness and no thoracic nor lumbar tenderness Extremity normal to inspection General Extremety ED: Negative for edema or tenderness General Extremity: Negative for edema Neuro oriented x3 and no sensory deficits noted Sensorium / Orientation: awake and alert Skin no rashes or lesions noted and no wounds MDM MDM MDM Narrative Medical decision making narrative: Interventions / MDM: Differential diagnosis: Diverticulitis, history of CKD Diagnosis considered but do not suspect: Kidney stone however CT negative for this. My EKG interpretation: N/A Imaging independently reviewed and interpreted by myself: CT abdomen pelvis: Acute sigmoid diverticulitis, no perforations or abscess. Was also read by radiology. External documents reviewed: N/A Test considered but not ordered:N/A ED course: Patient nontoxic. Declines any medications. Left lower quadrant pain over 2 days. History of CKD, will avoid IV contrast. Labs were checked. Noncontrast CT ordered. Labs white count 11.5 creatinine 1.24 GFR of 45. Stable from previous. CT scan confirms sigmoid diverticulitis with no complications. Discussed findings with the patient. She started on cefdinir and Flagyl. She does not drink alcohol. She has seen Dr. Kelley in the past for surgery. She will follow-up with him. Discussed return precautions. She declines any strong pain medication at home. She will use Tylenol as needed. All questions were answered. Re-evaluation: stable Disposition discussed with patient/family/significant other: Patient and family Case discussed with consulting clinician: N/A This note was generated with [employer] dictation software. It may contain incorrect words, spelling, and punctuation that were not noted in checking the note before signing. Lab Data Labs: Laboratory Results - last 24 hr 06/14/24 17:45 WBC 11.5 H RBC 4.18 L Hgb 11.7 L Hct 35.7 L MCV 85.4 MCH 28.0 MCHC 32.8 RDW Std Deviation 41.6 RDW Coeff of Cami 13.3 Plt Count 298 MPV 9.6 Immature Gran % (Auto) 0.400 Neut % (Auto) 69.5 Lymph % (Auto) 16.6 L [place] % (Auto) 10.9 H Eos % (Auto) 1.6 Baso % (Auto) 1.0 Absolute Neuts (auto) 8.0 H Absolute Lymphs (auto) 1.91 Nucleated RBC % 0 Sodium 133 L Potassium 4.2 Chloride 99 Carbon Dioxide 29.0 Anion Gap 5 BUN 16 Creatinine 1.24 H Estim Creat Clear Calc 35.96 Est GFR (MDRD) Af Amer 54 L Est GFR (MDRD) Non-Af 45 L BUN/Creatinine Ratio 12.9 Glucose 99 Calcium 9.0 Radiography Diagnostic Testing: Clinical Impression(s) from Imaging Studies Abdomen/Pelvis CT 06/14/24 17:56 IMPRESSION: Acute sigmoid diverticulitis. Hiatal hernia. Electronically Signed: Lynsey Lao MD at 19:01 EDT , Discharge Plan Triage Chief Complaint: Abd Pain ED Provider: Axel Jo Dx/Rx/DC Orders Clinical Impression: Acute diverticulitis, Abdominal pain, LLQ Instructions: Diverticulitis Dc Prescriptions: New metronidazole 500 mg tablet 500 mg PO Q8H Qty: 21 0RF cefdinir 300 mg capsule 300 mg PO Q12H Qty: 14 0RF No Action levothyroxine 88 MCG tablet 88 mcg PO DAILY aspirin 81 MG tablet,chewable 81 mg PO DAILY@0800 losartan 100 MG tablet 100 mg PO DAILY gabapentin 300 mg capsule 300 mg PO QHS amlodipine 5 MG tablet 5 mg PO QHS Patient Comments: labetalol 100 MG tablet 200 mg PO BID Patient Comments: biotin 1 MG capsule 1 mg PO DAILY potassium chloride 20 mEq Tablet Extended Release 40 meq PO BID meclizine 25 mg tablet 25 mg PO TID PRN (Reason: dizziness) Qty: 30 0RF amlodipine 2.5 mg tablet 2.5 mg PO DAILY isosorbide mononitrate 30 mg Tablet Extended Release 24 Hr 30 mg PO DAILY ondansetron [ondansetron] 4 mg tablet,disintegrating 4 mg PO Q8H PRN PRN (Reason: Nausea) Qty: 10 0RF (DME) True Metrix Glucose Test Strip Strip MISCELLANEOUS Patient Comments: [NO ORIGINAL SIG] ranolazine 500 mg tablet extended release 12 hr 500 mg PO BID (DME) lancets [TRUEplus Lancets] 33 gauge misc MISCELLANEOUS Patient Comments: [NO ORIGINAL SIG] Primary Care Provider: Evangelist Starr Referrals: Evangelist Starr MD [Primary Care Provider] - Behzad Kelley MD [Med Staff - Active Staff] - 1-2 Weeks Activity Restrictions/Additional Instructions: Uncomplicated sigmoid diverticulitis final CT. Take and finish antibiotic as prescribed. May use Tylenol as needed. If symptoms worsen not controlled with medication, return to the ED for reevaluation. Otherwise follow-up with Dr. Kelley as you have seen him in the past. Print Language: German Disposition Disposition: Home, Self Care Discharge Date/Time: 06/14/24 20:07
[2024-06-14] MEDS: Cefdinir 300 MG Capsule PO (20:04)
[2024-06-14] MEDS: metroNIDAZOLE 500 MG Tablet PO (20:04)
== END 2024-06-14 20:07 | disposition home or self-care (01) ==
PROVIDERS: Emergency Provider Emergency Medicine; PCP Family Medicine; Visit Provider Emergency Medicine
DX: K57.32 Diverticulitis of large intestine without perforation or abscess without bleeding (principal); N18.30 Chronic kidney disease, stage 3 unspecified; I12.9 Hypertensive chronic kidney disease with stage 1 through stage 4 chronic kidney disease, or unspecified chronic kidney disease; Z79.899 Other long term (current) drug therapy; Z87.891 Personal history of nicotine dependence
CPT/HCPCS: 74176; 80048; 85025; 96360; 96361; 99284; A4216

== ENCOUNTER 2025-07-24 21:56 | Emergency (ER) | payer MEDICARE, SELFPAY ==
[2025-07-24 21:57] VITALS: BP 160/75; PULSE 84; RESP 16; TEMP 36.7; O2SAT 97; BMI 34.7
[2025-07-24 22:56] VITALS: BP 137/52; PULSE 80; RESP 18; O2SAT 91
--- OUTSIDE RECORDS SUMMARY | 2025-07-24 23:02 | XMS RPT_ITS | CCD ---
Author Organization [facility] Care Team Providers Care Assembly Line Inspector Name Role Phone DARREN, SYLVESTER Unavailable Unavailable DARREN, SYLVESTER Unavailable Unavailable CEBUL, ERMA Unavailable Unavailable DARREN, SYLVESTER Unavailable Unavailable DARRNE, SYLVESTER Unavailable Unavailable CATHERINEBUL, ERMA Unavailable Unavailable Elisa Starr MD Primary Care Provider Gumaro RNTonia Unavailable Unavailable Elisa Starr MD Primary Care Provider Gumaro RN, Tonia Unavailable Unavailable Elisa Starr MD Primary Care Provider Nabil ENNIS, Beatriz Cooley Unavailable Elisa Starr MD Primary Care Provider Nabil ENNIS, Beatriz Cooley Unavailable Nabil ENNIS, Beatriz Cooley Unavailable Sharifa Stewart RN Unavailable Unavailable Gumaro ENNIS, Tonia Unavailable Unavailable Nabil ENNIS, Beatriz Cooley Unavailable ZOYA ALMARAZ Attending Unavailable ELISA STARR Primary Care Unavailab Sharifa Hernandez RN Unavailable Unavailable Elisa Starr MD Primary Care Provider Di Christine Attending Unavailable Evangelist Starr Primary Care Unavailable Evangelist Starr Primary Care Unavailable Axel Mireles Attending Unavailable Podlogar BOWLING BALL ASSEMBLER.Elizabeth MEEKS Unavailable Knoble BOWLING BALL ASSEMBLER.Cortez MEEKS Unavailable Knoble BOWLING BALL ASSEMBLER.CASH ACCOUNTING CLERK Cortez Unavailable Knoble BOWLING BALL ASSEMBLER.CASH ACCOUNTING CLERK, Cortez Unavailable Sheri Reddy RN Unavailable JERRI PALAFOX Referring Unavailable ELISA STARR Primary Care Unavailab carmelina Reddy RN, Sheri August Unavailable Chris BOWLING BALL ASSEMBLER.CASH ACCOUNTING CLERKCortez Unavailable ELISA STARR Primary Care Unavailab le VETONICOLÁS, ANJU Referring Unavailable ELISA STARR Primary Care Unavailab le PODLOGAR, ELIZABETH Attending Unavailable ELISA STARR Primary Care Unavailab le ELISA STARR Attending Unavailab le ELISA STARR Primary Care Unavailab le ELISA STARR Primary Care Unavailab le ELISA STARR Referring Unavailab MARE Laguerre Attending Unavailable ELISA STARR Primary Care Unavailab le JEAN-PIERRE VELAZCO Referring Unavailable ELISA STARR Primary Care Unavailab ABHISHEK Umanzor Attending Unavailable ELISA STARR Primary Care Unavailab ABHISHEK Umanzor Referring Unavailable PODLOGAR, ELIZABETH Referring Unavailable ELISA STARR Primary Care Unavailab le PODLOGAR, ELIZABETH Referring Unavailable ELISA STARR Primary Care Unavailab le PODLOGAR, ELIZABETH Attending Unavailable ELISA STARR Primary Care Unavailab le PODLOGAR, ELIZABETH Referring Unavailable ELISA STARR Primary Care Unavailab le STEVEN STARRER Angelika Primary Care Unavailab JERRI Smith Attending Unavailable PODLOGARELIZABETH Referring Unavailable ELISA STARR Referring Unavailab le STEVEN STARRER B Primary Care Unavailab le STEVEN STARRER B Primary Care Unavailab le VETONICOLÁS, ANJU Attending Unavailable ELISA STARR Primary Care Unavailab ABHISHEK Umanzor Attending Unavailable ELISA STARR Primary Care Unavailab le ELISA STARR Referring Unavailab le STEVEN STARRER B Primary Care Unavailab JONNA Snow Attending Unavailable ELISA STARR Primary Care Unavailab le PODLOGAR, ELIZABETH Attending Unavailable ELISA STARR Primary Care Unavailab le PODLOGAR, ELIZABETH Referring Unavailable ELISA STARR Primary Care Unavailab carmelina STARR, ELISA Carney Referring Unavailab le MARTINVERENA, ELISA Carney Referring Unavailab le ISA, ELISA Carney Primary Care Unavailab le ISA, ELISA Carney Referring Unavailab le ISA, STEVENER Angelika Primary Care Unavailab le ISA, STEVENER Angelika Primary Care Unavailab le ISA, STEVENER Angelika Referring Unavailab ELISA Holly Attending Unavailab le ISA, ELISA Carney Primary Care Unavailab le MARTINVERENA, STEVENER Angelika Primary Care Unavailab le MARTINVERENA, STEVENER Angelika Referring Unavailab le JUAN A, JEAN-PIERRE Attending Unavailable Allergies Allergy Classification Reported Allergen(s) Allergy Type Date of Onset Reaction(s) Facility (20 sources) atorvastatin; Translations: [ATORVASTATIN CALCIUM] Drug Allergy 10-21-20 14 Other: See Comments [facility] (20 sources) codeine; Translations: [CODEINE] Drug Allergy 12-09-19 10 Intolerance [facility] (20 sources) isosorbide; Translations: [ISOSORBIDE] Drug Allergy 03-06-20 12 Other: See Comments [facility] (20 sources) lisinopril; Translations: [LISINOPRIL] Drug Allergy 10-07-20 05 Cough [facility] (20 sources) perindopril; Translations: [PERINDOPRIL ERBUMINE] Drug Allergy 11-02-20 05 Rash, Cough [facility] (20 sources) spironolactone; Translations: [SPIRONOLACTONE] Drug Allergy 03-21-20 14 Other: See Comments [facility] (2 sources) OTHER; Translations: [OTHER] Propensity to adverse reactions (disorder) 10-07-20 05 [facility] (20 sources) beta blockers [Other] Propensity to adverse reactions 10-07-20 05 Cough [facility] (20 sources) hctz [Other] Propensity to adverse reactions 10-07-20 05 Rash [facility] (1 source) Adrenergic Beta-Antagonists Propensity to adverse reactions 01-27-20 23 cough [facility] (1 source) atorvastatin Drug Allergy 01-27-20 23 unknown [facility] (1 source) hydroCHLOROthiazide Drug Allergy 01-27-20 23 rash [facility] (1 source) Perindopril Drug Allergy 01-27-20 rash,cough [facility] (1 source) Adrenergic Beta-Antagonists Drug allergy (disorder) 06-14-20 [facility] (1 source) atorvastatin Drug Allergy 06-14-20 [facility] (1 source) hydroCHLOROthiazide Drug Allergy 06-14-20 [facility] (1 source) Perindopril Drug Allergy 06-14-20 [facility] Medications Current Medications Medication Drug Class(es) Dates Sig (Normalized) Sig (Original) alendronic acid 70 mg oral tablet (20 sources) Bisphosphonate Start: 01-28-2022 End: 07-23-2025 take 1 tablet by mouth every week in the morning alendronate (FOSAMAX) 70 mg tablet Take 1 tablet by mouth one time a week. In AM with cup of water on empty stomach. Nothing else by mouth and stay upright for 30 min. 12 tablet 3 10/29/2024 Active Comment on above: Take 1 tablet by rory th one time a week. Take with a full glass of water, on an empty stomach; do NOT lie down for 30minutes. amLODIPine 5 mg oral tablet (20 sources) Dihydropyridine Calcium Channel Gustavo Start: 05-29-2023 End: 09-05-2024 take 1 tablet by mouth once daily amLODIPine (NORVASC) 5 mg tablet Take 1 tablet by mouth once daily. 90 tablet 3 09/05/2024 Active Start: 05-11-2022 End: 09-05-2024 amLODIPine (NORVASC) 2.5 mg tablet Take one tablet daily in addition to 5 mg to equal 7.5 mg daily 90 tablet 3 09/05/2024 Active Start: 01-25-2018 End: 06-28-2022 take 1 tablet by mouth once daily amLODIPine (NORVASC) 5 mg tablet Take 1 tablet by mouth once daily. 90 tablet 3 10/07/2020 09/16/2021 Discontinued Comment on above: TAKE 1 TABLET EVERY DAY Take one tablet ariane y in addition to 5 mg to equal 7.5 mg daily Take 1 tablet by rory th once daily. aspirin 81 mg chewable tablet (20 sources) Platelet Aggregation Inhibitor, Nonsteroidal Anti-inflammatory Drug Start: 01-01-2014 take 81 mg by mouth once daily Aspirin Active 81 MG PO DAILY@0800 January 01, 2014 1:00am take 1 tablet by mouth once araine y aspirin, enteric coated (ASPIRIN, ENTERIC COATED) 81 mg EC tablet Take 81 mg by mouth once daily. Active Comment on above: Take 81 mg by mouth once daily. biotin 1 mg oral capsule (20 sources) Start: 07-06-2018 take 1 mg by mouth once daily Biotin Active 1 MG PO DAILY July 06, 2018 12:00am take 1 capsule by mouth once cayla ly Biotin 2,500 mcg cap Take 1 capsule by mouth once daily. Active Comment on above: Take 1 capsule by [facility] once daily. calcium carbonate-Vit D3-minerals (CALTRATE) 600 mg calcium- 400 unit tab (20 sources) take 2 tablets by mouth once daily calcium carbonate-Vit D3-minerals (CALTRATE) 600 mg calcium- 400 unit tab Take 2 tablets by mouth once daily. Active take 2 tablets by mouth once cayla ly calcium carbonate-Vit D3-minerals (CALTRATE) 600 mg calcium- 400 unit tab Take 2 tablets by mouth once daily. 0 Active Comment on above: Take 2 tablets by [facility] once daily. diphenhydrAMINE hydrochloride 25 mg oral tablet (20 sources) Histamine-1 Receptor Antagonist take 1 tablet by mouth every twenty-four hours as needed diphenhydrAMINE (BENADRYL) 25 mg tablet Take 25 mg by mouth at bedtime as needed. Active Doxylamine (20 sources) doxylamine succi louisa (SLEEP AID ORAL) Take by mouth daily at bedtime. Active doxylamine succi louisa (SLEEP AID ORAL) Take by mouth daily at bedtime. 0 Active Comment on above: Take by mouth daily at bedtime. enteric contrast (will be provided with radiology test) (3 sources) Start: 01-07-2025 End: 01-08-2025 enteric contrast (will be provided with radiology test) Indications: Periumbilical abdominal pain , LLQ pain For CT ABD/PEL W IVCON Routine order Administer, As Directed One Time Only, via Oral, Rectal, both Oral and Rectal, Enteric Tube, Stoma or Indwelling Catheter, Enteric Contrast as designated per enteric contrast guidelines 1 Each 01/07/2025 01/08/2025 Active Start: 01-07-2025 End: 01-07-2025 take 1 dose by mouth once, then take 1 dose by mouth once enteric contrast (will be provided with radiology test) Take 1 Each by mouth one time only for [address] ABD/PEL WO Routine order Administer, As Directed One Time Only, via Oral, Rectal, both Oral and Rectal, Enteric Tube, Stoma or Indwelling Catheter, Enteric Contrast as designated per enteric contrast guidelines 1 Each 01/07/2025 01/07/2025 Discontinued (Course of therapy completed) gabapentin 300 mg oral capsule (20 sources) Anti-epileptic Agent Start: 05-29-2023 End: 07-29-2025 take 1 capsule by mouth once daily at bedtime gabapentin (NEURONTIN) 300 mg capsule Indications: 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 , Cervical radiculopathy Take 1 capsule by mouth daily at bedtime for 90 days. 90 capsule 04/30/2025 07/29/2025 Active Start: 09-04-2019 End: 05-07-2023 take 1 capsule by mouth twice daily as needed gabapentin (NEURONTIN) 300 mg capsule Indications: 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 , Cervical radiculopathy Take 1 capsule by mouth twice daily as needed for up to 90 days. 180 capsule 02/06/2021 08/13/2021 Discontinued Start: 06-28-2019 End: 09-04-2019 take 300 mg by mouth three times daily Gabapentin Discontinued 300 MG PO THREE TIMES A DAY June 28, 2019 8:42pm September 04, 2019 8:52am Start: 11-15-2016 End: 06-28-2019 take 300 mg by mouth at bedtime Gabapentin Discontinue d 300 MG PO AT BEDTIME November 15, 2016 1:00am June 28, 2019 8:50pm Comment on above: Take 1 capsule by mo ut twice daily as needed for up to 90 days. Do not start before November 12, 2021. Take 1 capsule by mo ut twice daily as needed for up to 90 days. Take 1 capsule every other night for 2 weeks, then every 3rd night for 2 weeks, then stop. Take 1 capsule by mo uth daily at bedtime for 90 days. 24 hr isosorbide mononitrate 30 mg extended release oral tablet (20 sources) Nitrate Vasodilator Start: 3 End: take 1 tablet by mouth once daily isosorbide mononitrate ER (IMDUR) 30 mg 24 hr tablet Take 1 tablet by mouth once daily. 90 tablet 1 02/04/2025 08/03/2025 Active Start: 01-25-2018 End: 02-09-2021 take 15 mg by mouth once daily Isosorbide Mononitrate Discontinued 15 MG PO DAILY January 25, 2018 12:00am February 09, 2021 3:40pm Comment on above: Take 1 tablet by rory th once daily. iv contrast (will be provided with radiology test) (2 sources) Start: End: iv contrast (will be provided with radiology test) Indications: Periumbilical abdominal pain , LLQ pain CT ABD/PEL -Inject, intravenously, once for 1 dose.No IV [...] in the CT contrast administration guidelines link. 1 Each 01/07/2025 01/08/2025 Active labetalol hydrochloride 200 mg oral tablet (20 sources) beta-Adrenergic Gustavo Start: 2 End: take 1 tablet by mouth twice daily labetalol (TRANDATE) 200 mg tablet Take 1 tablet by mouth two times a day. 180 tablet 1 02/04/2025 08/03/2025 Active Start: 01-27-2022 End: 07-26-2022 take 1 tablet by mouth twice daily labetalol (TRANDATE) 200 mg tablet Take 1 tablet by mouth twice daily. 180 tablet 1 01/27/2022 Active Start: 05-31-2021 End: 01-27-2022 take 1 tablet by mouth twice daily labetalol (TRANDATE) 100 mg tablet Take 1 tablet by mouth twice daily. 180 tablet 1 10/11/2021 01/27/2022 Discontinued Start: 01-25-2018 take 200 mg by mouth twice daily Labetalol Active 200 MG PO TWICE A DAY January 25, 2018 12:00am Comment on above: Take 1 tablet by rory th twice daily. Take 1 tablet by rory th two times a day. levothyroxine sodium 0.088 mg oral tablet (20 sources) l-Thyroxine Start: 07-04-2022 End: 04-29-2025 levothyroxine (SYNTHROID) 88 mcg tablet Indications: Postablative hypothyroidism Take one tablet daily Monday-Monday and two tablets on Monday 102 tablet 3 04/30/2025 Active Start: 01-01-2014 End: 07-02-2022 take 1 tablet by mouth once daily levothyroxine (SYNTHROID) 88 mcg tablet Indications: Postablative hypothyroidism Take 1 tablet by mouth once daily. 90 tablet 3 10/07/2020 09/16/2021 Discontinued Comment on above: TAKE 1 TABLET EVERY DAY Take 1 tablet by rory th once daily. Take one tablet ariane y Monday-Monday and two tablets on Monday losartan potassium 100 mg oral tablet (20 sources) Angiotensin 2 Receptor Gustavo Start: 4 End: 5 take 1 tablet by mouth once daily losartan (COZAAR) 100 mg tablet Take 1 tablet by mouth once daily. 90 tablet 3 02/04/2025 Active Comment on above: TAKE 1 TABLET EVERY DAY Take 1 tablet by rory th once daily. meclizine hydrochloride 25 mg oral tablet (20 sources) Antiemetic Start: 0 End: 4 take 1 tablet by mouth every eight hours as needed meclizine (ANTIVERT) 25 mg tab Take 1 tablet by mouth three times a day as needed (vertigo). 30 tablet 1 02/29/2024 Active Start: 07-01-2019 take 25 mg by mouth once daily Meclizine Active 25 MG PO DAILY July 01, 2019 12:00am Start: 01-25-2018 End: 11-01-2018 take 25 mg by mouth four times daily as needed Meclizine Discontinued 25 MG PO 4 TIMES DAILY NEEDED January 25, 2018 12:00am November 01, 2018 9:58am Comment on above: Take 1 tablet by rory th three times daily as needed (vertigo). metFORMIN hydrochloride 500 mg oral tablet (20 sources) Biguanide Start : 04-27 End: 10-24 take 1 tablet by mouth twice daily at mealtime metFORMIN (GLUCOPHAGE) 500 mg tablet Take 1 tablet by mouth twice daily with meals. . 180 tablet 1 04/27/2022 10/24/2022 Discontinued (Discontinued by Patient) Comment on above: Take 1 tablet by rory th twice daily with meals. . methylPREDNISolone (2 sources) Corticosteroid Start : 02-21 End: 02-27 methylPREDNISolone (MEDROL, AMELIA,) 4 mg Dose-Pack Indications: Cervical pain (neck) Take as instructed per package. 21 tablet 02/21/2025 02/27/2025 Active ondansetron 4 mg disintegrating oral tablet (20 sources) Serotonin-3 Receptor Antagonist Start : 03-08 take 1 tablet by mouth every six hours as needed ondansetron orally disintegrating (ZOFRAN ODT) 4 mg disintegrating tablet Take 1 tablet by mouth every 6 hours as needed for Nausea/Vomiting. 20 tablet 1 03/08/2021 Active Start: 11-15-2016 End: 11-01-2018 take 4 mg by mouth every eight hours as needed Ondansetron Discontinued 4 MG PO EVERY 8 HOURS NEEDED November 15, 2016 1:00am November 01, 2018 9:57am Comment on above: Take 1 tablet by rory th every 6 hours as needed for Nausea/Vomiting. OTC PRODUCT (20 sources) take 1 tablet by mouth once daily OTC PRODUCT Take 1 tablet by mouth once daily. Prevagen Active pantoprazole 40 mg delayed release oral tablet (20 sources) Proton Pump Inhibitor Start: 018 End: take 1 tablet by mouth once daily pantoprazole DR (PROTONIX) 40 mg tablet Take 1 tablet by mouth once daily. 90 tablet 3 09/05/2024 Active Comment on above: TAKE 1 TABLET BY RORY TH ONCE DAILY. TAKE ON EMPTY STOMACH 1/2 HOUR BEFORE MEAL. microencapsulated potassium chloride 20 meq extended release oral tablet (20 sources) Start: 023 End: take 2 tablets by mouth twice daily potassium chloride ER (KLOR-CON) 20 mEq tablet Take 2 tablets by mouth two times a day. 360 tablet 3 06/28/2024 Active Start: 12-28-2021 End: 08-29-2022 take 2 tablets by mouth twice daily potassium chloride ER (K-DUR, KLOR-CON) 20 mEq tablet Take 2 tablets by mouth twice daily. 180 tablet 1 08/29/2022 Active Start: 06-14-2021 take 20 mEq by mouth twice daily Potassium Chloride Active 20 MEQ PO TWICE A DAY June 14, 2021 12:00am Start: 03-30-2021 End: 03-31-2021 take 80 mEq by mouth once daily Potassium Chloride Dis continued 80 MEQ PO DAILY March 30, 2021 3:10am March 31, 2021 11:54am Start: 02-09-2021 End: 03-30-2021 take 20 mEq by mouth once daily Potassium Chloride Dis continued 20 MEQ PO DAILY February 09, 2021 12:00am March 30, 2021 3:10am Start: 01-01-2014 End: 02-09-2021 take 20 mEq by mouth four times daily Potassium Chloride Discontinued 20 MEQ PO 4 TIMES DAILY January 01, 2014 1:00am February 09, 2021 3:40pm End: 10-22-2021 potassium chloride ER (K-DUR , KLOR-CON) 20 mEq tablet Take 20 mEq by mouth twice daily. 10/22/2021 Discontinued Comment on above: Take 2 tablets by [facility] twice daily. Take 2 tablets by [facility] two times a day. rosuvastatin calcium 20 mg oral tablet (20 sources) HMG-CoA Reductase Inhibitor Start: 5 End: 6 take 1 tablet by mouth once daily at bedtime rosuvastatin (CRESTOR) 20 mg tablet Take 1 tablet by mouth daily at bedtime. 90 tablet 1 05/23/2025 11/19/2025 Active valACYclovir 1000 mg oral tablet (3 sources) Herpesvirus Nucleoside Analog DNA Polymerase Inhibitor, Herpes Simplex Virus Nucleoside Analog DNA Polymerase Inhibitor, Herpes Zoster Virus Nucleoside Analog DNA Polymerase Inhibitor Start: 2 End: 2 take 1 tablet by mouth three times daily valACYclovir (VALTREX) 1 gram Indications: Herpes zoster without complication Take 1 tablet by mouth three times daily for 7 days. 21 tablet 0 04/25/2022 05/02/2022 Active Comment on above: Take 1 tablet by [facility] three times daily for 7 days. Completed/Discontinued Medications Medication Drug Class(es) Dates Sig (Normalized) Sig (Original) amitriptyline hydrochloride 10 mg oral tablet (20 sources) Tricyclic Antidepressant Start: 04-10-2023 End: 07-27-2023 amitriptyline (ELAVIL) 10 mg tablet Indications: Headache, unspecified headache type Take two tablets at bedtime 0 04/10/2023 07/27/2023 Discontinued Start: 09-27-2022 End: 04-10-2023 take 1 tablet by mouth once daily at bedtime amitriptyline (ELAVIL) 10 mg tablet Indications: Headache, unspecified headache type Take 1 tablet by mouth daily at bedtime. 90 tablet 0 12/05/2022 04/10/2023 Discontinued Comment on above: Take 1 tablet by rory th daily at bedtime. Take two tablets at bedtime amoxicillin 875 mg / clavulanate 125 mg oral tablet (1 source) Penicillin-class Antibacterial Start: 10-07-20 End: 11-01-20 take 875 mg by mouth every twelve hours Amoxicillin-Pot Clavulanate Discontinued 875 MG PO Q12H October 07, 2018 1:00am November 01, 2018 9:57am betamethasone 3 mg/ml / betamethasone acetate 3 mg/ml injectable suspension (3 sources) Corticosteroid Start: 05-06-20 End: 05-06-20 betamethasone acetate-betamethason e sodium phosphate 3 mg injection (CELESTONE) Start: 02-17-2022 End: 02-17-2022 betamethasone acetate-betame thasone sodium phosphate 3 mg injection (CELESTONE) Bifidobacterium Infantis (20 sources) End: 05-29-2023 Bifidobacterium infantis (AL IGN ORAL) Take by mouth once daily. 05/29/2023 Discontinued Bifidobacterium infantis (ALIGN ORAL) Take by mouth once daily. 0 Active Comment on above: Take by mouth once d aily. bisacodyl 5 mg delayed release oral tablet (1 source) Stimulant Laxative Start: 1 End: 2 Bisacodyl (DULCOLAX) 5 mg tab Use as directed for Miralax / Gatorade Bowel Prep Kit 4 tablet 06/08/2021 11/24/2021 Discontinued calcium carbonate-Vit D3-minerals (CALCIUM 600 + MINERALS) 600 mg calcium- 400 unit tab (20 sources) take 2 tablets by mouth once daily calcium carbonate-Vit D3-minerals (CALCIUM 600 + MINERALS) 600 mg calcium- 400 unit tab Take 2 tablets by mouth once daily. 0 Active Comment on above: Take 2 tablets by mo uth once daily. cetirizine hydrochloride 10 mg oral capsule (2 sources) Histamine-1 Receptor Antagonist Start: 9 End: 9 take 10 mg by mouth once daily Cetirizine Discontinued 10 MG PO DAILY November 26, 2018 1:00am June 28, 2019 8:50pm Start: 01-01-2014 End: 11-01-2018 take 10 mg by mouth once daily Cetirizine Discontinued 10 MG PO DAILY January 01, 2014 1:00am November 01, 2018 9:58am ciprofloxacin 500 mg oral tablet (2 sources) Quinolone Antimicrobial Start: 07-28-2021 End: 08-07-2021 take 1 tablet by mouth twice daily ciprofloxacin HCl (CIPRO) 500 mg tablet Indications: Diverticulitis of large intestine with bleeding, unspecified complication status Take 1 tablet by mouth twice daily for 10 days. 20 tablet 07/28/2021 08/07/2021 Start: 07-17-2020 End: 07-24-2020 take 500 mg by mouth twice daily Ciprofloxacin Hcl Discontinued 500 MG PO TWICE A DAY July 17, 2020 10:15am July 24, 2020 8:36am clopidogrel 75 mg oral tablet (1 source) [id number] Platelet Inhibitor Start: 07-01-2019 End: 08-16-2019 take 1 tablet by mouth once daily Clopidogrel (Plavix) 75 mg tablet Discontinued 75 MG PO DAILY July 01, 2019 12:00am August 16, 2019 11:34am DULoxetine 30 mg delayed release oral capsule (20 sources) Serotonin and Norepinephrine Reuptake Inhibitor Start: 07-29-2023 End: 05-27-2024 take 1 capsule by mouth once daily DULoxetine (CYMBALTA) 30 mg capsule Take 1 capsule by mouth once daily. 90 capsule 0 07/29/2023 05/27/2024 Discontinued (Course of therapy completed) Comment on above: Take 1 capsule by mo uth once daily. fluconazole 200 mg oral tablet (1 source) Azole Antifungal Start: 10-07-2018 End: 11-01-2018 take 200 mg by mouth once daily Fluconazole Discontinued 200 MG PO DAILY October 07, 2018 1:00am November 01, 2018 9:58am furosemide 20 mg oral tablet (2 sources) Loop Diuretic Start: 03-30-2021 End: 03-31-2021 take 1 tablet by mouth once daily Furosemide (Lasix) 20 mg Tablet Discontinued 20 MG PO DAILY March 30, 2021 12:00am March 31, 2021 11:52am Start: 01-25-2018 End: 02-09-2021 take 20 mg by mouth twice daily Furosemide Discontinued 20 MG PO TWICE A DAY January 25, 2018 12:00am February 09, 2021 3:41pm Gatorade Sports Drink (1 source) Start: 06-08-2021 End: 11-24-2021 Gatorade Sports Drink Use as directed for Miralax / Gatorade Bowel Prep Kit 64 oz 06/08/2021 11/24/2021 Discontinued gemfibrozil 600 mg oral tablet (1 source) Peroxisome Proliferator Receptor alpha Agonist Start: 07-01-2019 End: 07-24-2020 take 600 mg by mouth twice daily Gemfibrozil Discontinued 600 MG PO TWICE A DAY 60 July 01, 2019 12:00am July 24, 2020 8:36am cholesterol indapamide 1.25 mg oral tablet (1 source) Thiazide-like Diuretic Start: 02-09-2021 End: 03-10-2021 take 1.25 mg by mouth once daily in the morning Indapamide Discontinued 1.25 MG PO EVERY MORNING 90 February 09, 2021 12:00am March 10, 2021 11:47am inulin 200 mg / lactobacillus rhamnosus gg [id number] unt chewable tablet (1 source) Start: 11-01-2018 End: 06-28-2019 take 1 tablet by mouth once daily Lactobac. Rhamnosus Gg-Inulin (Culturelle Probiotics) 10 billion cell -200 mg tablet,chewable Discontinued 1 TABLET PO DAILY November 01, 2018 1:00am June 28, 2019 8:50pm 10 ml lidocaine hydrochloride 10 mg/ml injection (3 sources) Antiarrhythmic, Amide Local Anesthetic Start: 05-06-2024 End: 05-06-2024 lidocaine (PF) 10 mg/mL (1 %) 0.5 mL injection (XYLOCAINE) Start: 02-17-2022 End: 02-17-2022 lidocaine (PF) 10 mg/mL (1 % ) 0.5 mL injection (XYLOCAINE) metroNIDAZOLE 500 mg oral tablet (2 sources) Nitroimidazole Antimicrobial Start: 07-28-2021 End: 08-07-2021 take 1 tablet by mouth three times daily metroNIDAZOLE (FLAGYL) 500 mg tablet Indications: Diverticulitis of large intestine with bleeding, unspecified complication status Take 1 tablet by mouth three times daily for 10 days. 30 tablet 07/28/2021 08/07/2021 Start: 07-17-2020 End: 07-24-2020 take 500 mg by mouth every eight hours Metronidazole Discontinued 500 MG PO EVERY 8 HOURS July 17, 2020 12:00am July 24, 2020 8:35am naproxen 500 mg oral tablet (1 source) Nonsteroidal Anti-inflammatory Drug Start: 07-06-2018 End: 08-15-2019 take 500 mg by mouth twice daily as needed Naproxen Discontinued 500 MG PO TWICE DAILY NEEDED July 06, 2018 12:24pm August 15, 2019 10:10am neomycin sulfate 500 mg oral tablet (1 source) Aminoglycoside Antibacterial Start: 06-08-2021 End: 11-24-2021 neomycin 500 mg tablet Take 2 tablets by mouth at 9pm and take 2 tablets by mouth at 11pm the night before surgery. 4 tablet 06/08/2021 11/24/2021 Discontinued omeprazole 20 mg delayed release oral capsule (1 source) Proton Pump Inhibitor Start: 01-01-2014 End: 11-01-2018 take 20 mg by mouth once daily Omeprazole Discontinued 20 MG PO DAILY January 01, 2014 1:00am November 01, 2018 9:57am perflutren lipid microspheres 1.3 mL in NaCl (PF) 0.9% 10 mL injection (DEFINITY) (20 sources) Start: 02-07-2023 End: 05-08-2024 perflutren lipid microspheres 1.3 mL in NaCl (PF) 0.9% 10 mL injection (DEFINITY) Start: 01-05-2022 End: 04-06-2023 perflutren lipid microsphere s 1.3 mL in NaCl (PF) 0.9% 10 mL injection (DEFINITY) polyethylene glycol 3350 11230 mg powder for oral solution (20 sources) Osmotic Laxative Start: 03-17-2021 End: 05-29-2023 polyethylene glycol 3350 (MIRALAX, GLYCOLAX) 17 gram/dose powder Use as directed for Miralax / Gatorade Bowel Prep Kit 238 g 06/08/2021 05/29/2023 Discontinued polyethylene gly col 3350 17 gram/dose powder Take 17 g by mouth once daily. Dissolve dose in 4 - 8 ounces of liquid and take as directed. Active Comment on above: Use as directed for Miralax / Gatorade Bowel Prep Kit Take 17 g by mouth o nce daily. Dissolve dose in 4 - 8 ounces of liquid and take as directed. 12 hr ranolazine 500 mg extended release oral tablet (15 sources) Anti-anginal Start: 05-27-2024 End: 08-07-2024 take 1 tablet by mouth twice daily ranolazine ER (RANEXA) 500 mg 12 hr tablet Take 1 tablet by mouth two times a day. 60 tablet 2 05/27/2024 08/07/2024 Discontinued 125 ml sodium chloride 9 mg/ml prefilled syringe (20 sources) Start: 01-05-2022 End: 05-08-2024 sodium chloride 0.9 % (flush) 10 mL (BD POSIFLUSH) Start: 12-15-2020 0.9 % sodium c hloride (NACL 0.9%) 0.9% solp Infuse 500 ml IV over [address] 500 mL 12/15/2020 Active Comment on above: Infuse 500 ml IV ove r [address] trospium chloride 20 mg oral tablet (13 sources) Cholinergic Muscarinic Antagonist Start: End: take 1 tablet by mouth once daily at bedtime trospium (SANCTURA) 20 mg tablet Indications: Nocturia Take 1 tablet by mouth daily at bedtime. 30 tablet 3 02/25/2025 07/04/2025 Discontinued (Course of therapy completed) Problems Active Problems Problem Classification Problem Date Documented Date Episodic/Chronic Blindness and vision defects (1 source) Transient visual loss, bilateral; Translations: [Transient visual loss] 05-14-2024 Episodic Cardiac dysrhythmias (20 sources) Paroxysmal supraventricular tachycardia; Translations: [Supraventricular tachycardia] Onset: 01-27-2022 01-27-2022 Chronic Cardiac dysrhythmias (2 sources) Palpitations; Translations: [Palpitations] Episodic Chronic kidney disease (20 sources) Chronic kidney disease stage 3A ; Translations: [Stage 3a chronic kidney disease] Onset: 02-17-2019 06-15-2021 Chronic Chronic kidney disease (2 sources) Chronic kidney disease; Translations: [Stage 3a chronic kidney disease (HCC)] Onset: 06-15-2021 Complications of surgical procedures or medical care (20 sources) Postablative hypothyroidism; Translations: [Postprocedural hypothyroidism] Onset: 10-10-2005 06-15-2021 Chronic Conditions associated with dizziness or vertigo (2 sources) Lightheadedness; Translations: [Dizziness and giddiness] 05-29-2024 Episodic Coronary atherosclerosis and other heart disease (20 sources) Preinfarction syndrome; Translations: [Unstable angina] Onset: 07-19-2019 07-19-2019 Chronic Diabetes mellitus with complications (1 source) Type 2 diabetes mellitus with other specified complication; Translations: [Hyperlipidemia associated with type 2 diabetes mellitus (HCC)] Onset: 12-27-2024 Chronic Diabetes mellitus without complication (20 sources) Type 2 diabetes mellitus; Translations: [Type 2 diabetes mellitus without complications] Onset: 05-31-2024 05-31-2024 Chronic Disorders of lipid metabolism (20 sources) Hyperlipidemia; Translations: [Hyperlipidemia, unspecified] Onset: 06-15-2021 06-15-2021 Chronic Diverticulosis and diverticulitis (20 sources) Diverticulitis; Translations: [Diverticulitis of intestine, part unspecified, without perforation or abscess without bleeding] Onset: 04-28-2021 06-15-2021 Chronic Esophageal disorders (20 sources) Gastroesophageal reflux disease; Translations: [Gastro-esophageal reflux disease without esophagitis] Onset: 06-01-2012 06-15-2021 Chronic Essential hypertension (20 sources) Hypertensive disorder; Translations: [Essential (primary) hypertension] Onset: 03-10-2025 06-15-2021 Chronic Genitourinary symptoms and ill-defined conditions (20 sources) Mixed urinary incontinence; Translations: [Mixed incontinence] Onset: 02-03-2012 02-03-2012 Chronic Headache; including migraine (8 sources) Headache; Translations: [Headache, unspecified headache type] Episodic Headache; including migraine (2 sources) Headache; including migraine; Translations: [Nonintractable headache, unspecified chronicity pattern, unspecified headache type] Onset: 02-21-2025 Nausea and vomiting (1 source) Nausea and vomiting; Translations: [Nausea with vomiting, unspecified] Episodic Nervous system congenital anomalies (20 sources) Occult spinal dysraphism sequence; Translations: [Other specified congenital malformations of spinal cord] Onset: 11-20-2014 12-18-2018 Chronic Nonspecific chest pain (5 sources) Chest pain, unspecified; Translations: [Chest pain] Onset: 01-08-2018 Episodic Osteoarthritis (20 sources) Osteoarthritis of knee; Translations: [Unilateral primary osteoarthritis, unspecified knee] Onset: 05-24-2011 05-24-2011 Chronic Osteoporosis (20 sources) Osteoporosis; Translations: [Age-related osteoporosis without current pathological fracture] Onset: 01-16-2007 04-04-2018 Chronic Other connective tissue disease (10 sources) Triggering of digit; Translations: [Trigger finger, unspecified finger] Episodic Other connective tissue disease (1 source) Muscle pain; Translations: [Myalgia, unspecified site] 03-25-2025 Episodic Other endocrine disorders (1 source) Hypoglycemia; Translations: [Hypoglycemia, unspecified] 05-29-2024 Chronic Other lower respiratory disease (20 sources) Interstitial lung disease; Translations: [Interstitial pulmonary disease, unspecified] Onset: 05-29-2024 Chronic Other lower respiratory disease (2 sources) Dyspnea on exertion; Translations: [Other forms of dyspnea] 02-08-2021 Episodic Other lower respiratory disease (1 source) Other forms of dyspnea; Translations: [Dyspnea on exertion] Onset: 02-07-2023 Episodic Other lower respiratory disease (3 sources) Dyspnea; Translations: [Shortness of breath] 06-06-2023 Episodic Other lower respiratory disease (1 source) Other nonspecific abnormal finding of lung field; Translations: [Other nonspecific abnormal finding of lung field] 07-30-2021 Episodic Other non-traumatic joint disorders (1 source) Swollen ankle region; Translations: [Effusion, right ankle] Episodic Other non-traumatic joint disorders (2 sources) Acute ankle pain; Translations: [Pain in left ankle and joints of left foot] 08-19-2024 Episodic Other nutritional; endocrine; and metabolic disorders (20 sources) Obese class I; Translations: [Obesity, unspecified] Onset: 12-19-2019 12-19-2019 Chronic Other nutritional; endocrine; and metabolic disorders (1 source) Disorder of mineral metabolism, unspecified; Translations: [Chronic kidney disease-mineral and bone disorder] Onset: 03-10-2025 Chronic Other skin disorders (1 source) Actinic keratosis; Translations: [Actinic keratosis] 07-04-2025 Episodic Other skin disorders (1 source) Actinic keratosis; Translations: [Actinic keratosis] Onset: 07-04-2025 Episodic Effie-; endo-; and myocarditis; cardiomyopathy (except that caused by tuberculosis or sexually transmitted disease) (20 sources) Heart valve disorder; Translations: [Endocarditis, valve unspecified] Onset: 06-10-2021 06-10-2021 Chronic Peripheral and visceral atherosclerosis (20 sources) Vascular disorder; Translations: [Peripheral vascular disease, unspecified] Onset: 11-14-2022 Chronic Prolapse of female genital organs (20 sources) Uterine prolapse; Translations: [Uterovaginal prolapse, unspecified] Onset: 02-03-2012 09-01-2016 Chronic Pulmonary heart disease (20 sources) Pulmonary hypertension, unspecified; Translations: [Other chronic pulmonary heart diseases] Onset: 08-08-2024 08-08-2024 Chronic Spondylosis; intervertebral disc disorders; other back problems (20 sources) Degeneration of cervical intervertebral disc; Translations: [Other cervical disc degeneration, unspecified cervical region] Onset: 02-11-2009 02-11-2009 Chronic Syncope (4 sources) Vasovagal syncope; Translations: [Syncope and collapse] Onset: 02-07-2023 06-15-2021 Episodic Unclassified (1 source) Unknown / UNK(Unknown) Onset: 01-08-2018 Unclassified (20 sources) Nodule of lung; Translations: [Lung nodule < 6cm on CT] Onset: 10-15-2018 10-15-2018 Viral infection (1 source) Herpes zoster without complication; Translations: [Zoster without complications] Episodic Past or Other Problems Problem Classification Problem Date Documented Da te Episodic/Chronic Abdominal hernia (20 sources) Hiatal hernia; Translations: [Diaphragmatic hernia without obstruction or gangrene] Onset: 01-03-2024 01-03-2024 Episodic Abdominal pain (20 sources) Epigastric pain; Translations: [Epigastric pain] Onset: 11-20-2014 Resolved: 09-01-2016 06-02-2021 Episodic Diabetes mellitus without complication (20 sources) Impaired fasting glycemia; Translations: [Impaired fasting glucose] Onset: 11-19-2015 11-19-2015 Episodic Fluid and electrolyte disorders (20 sources) Chronic hypokalemia; Translations: [Hypokalemia] Onset: 09-25-2012 12-19-2019 Episodic Gastritis and duodenitis (20 sources) Gastritis; Translations: [Other gastritis without bleeding] Onset: 07-13-2007 Resolved: 11-02-2015 11-02-2015 Episodic Genitourinary symptoms and ill-defined conditions (6 sources) Nocturia; Translations: [Nocturia] Onset: 02-25-2025 12-31-2024 Episodic Malaise and fatigue (2 sources) Asthenia; Translations: [Weakness] Onset: 12-15-2023 Episodic Other and unspecified benign neoplasm (20 sources) History of polyp of colon; Translations: [Personal history of colonic polyps] Resolved: 06-02-2021 06-02-2021 Episodic Other and unspecified benign neoplasm (20 sources) Benign neoplasm of stomach; Translations: [Benign neoplasm of stomach] Onset: 07-13-2007 Resolved: 12-19-2019 12-19-2019 Episodic Other bone disease and musculoskeletal deformities (1 source) Disorder of bone, unspecified; Translations: [Chronic kidney disease-mineral and bone disorder] Onset: 03-10-2025 Episodic Other connective tissue disease (20 sources) Inadequate pelvic muscles; Translations: [Other symptoms and signs involving the musculoskeletal system] Onset: 01-17-2012 01-17-2012 Episodic Other connective tissue disease (20 sources) Trochanteric bursitis of left hip; Translations: [Trochanteric bursitis, left hip] Onset: 07-24-2012 Resolved: 10-15-2018 10-15-2018 Episodic Other diseases of veins and lymphatics (20 sources) Peripheral venous insufficiency; Translations: [Venous insufficiency (chronic) (peripheral)] Onset: 01-03-2017 01-03-2017 Episodic Other disorders of stomach and duodenum (20 sources) Delayed gastric emptying; Translations: [Functional dyspepsia] Onset: 07-24-2012 07-24-2012 Episodic Other gastrointestinal disorders (20 sources) Esophageal dysphagia; Translations: [Other dysphagia] Onset: 08-29-2017 01-03-2024 Episodic Other gastrointestinal disorders (20 sources) History of pancreatitis; Translations: [Personal history of other diseases of the digestive system] Onset: 07-12-2018 Resolved: 10-15-2018 10-15-2018 Episodic Other gastrointestinal disorders (20 sources) History of diverticulitis; Translations: [Personal history of other diseases of the digestive system] Onset: 07-12-2018 Resolved: 10-15-2018 10-15-2018 Episodic Other liver diseases (20 sources) Alkaline phosphatase raised; Translations: [Abnormal levels of other serum enzymes] Onset: 07-12-2018 Resolved: 02-17-2019 02-17-2019 Episodic Other lower respiratory disease (20 sources) Nodule of lung; Translations: [Solitary pulmonary nodule] Onset: 10-15-2018 10-15-2018 Episodic Other nervous system disorders (20 sources) Trigeminal neuralgia; Translations: [Trigeminal neuralgia] Onset: 10-11-2011 06-15-2021 Episodic Other non-traumatic joint disorders (20 sources) Chronic pain of left upper limb; Translations: [Pain in left shoulder] Onset: 08-28-2018 09-07-2018 Episodic Other non-traumatic joint disorders (3 sources) Pain in left knee; Translations: [Pain in joint, lower leg] Onset: 08-19-2024 08-19-2024 Episodic Other non-traumatic joint disorders (1 source) Pain in left ankle and joints of left foot; Translations: [Acute left ankle pain] Onset: 08-19-2024 Episodic Other screening for suspected conditions (not mental disorders or infectious disease) (2 sources) Encounter for screening for other disorder; Translations: [Encounter for screening mammogram for malignant neoplasm of breast] Onset: 10-25-2024 Episodic Residual codes; unclassified (20 sources) Inadequate sleep hygiene; Translations: [Inadequate sleep hygiene] Onset: 11-02-2015 11-02-2015 Episodic Residual codes; unclassified (20 sources) Patient encounter status; Translations: [Encounter for other specified prophylactic measures] Onset: 12-15-2020 12-15-2020 Episodic Residual codes; unclassified (20 sources) Other specified health status; Translations: [Other drug allergy] Onset: 05-30-2023 05-30-2023 Episodic Spondylosis; intervertebral disc disorders; other back problems (20 sources) Lumbar disc prolapse with radiculopathy; Translations: [Intervertebral disc disorders with radiculopathy, lumbar region] Onset: 09-01-2016 09-01-2016 Episodic Results Test Name Value Interpretation Reference Range Facility [facility] 07-04-2025 CNOV Office Visit (FAMPWS ) TASHIA FERNANDEZ ([id number]) 1950 F Date Time Provider Department 07/04/25 12:00 PM ELISA STARR [facility] During your visit today, we recorded the following information about you: Pulse Blood pressure Weight Height 67/minute 116/66 79 kg 1.524 m Elisa Starr MD 07/04/2025 12:46 PM Signed Chief Complaint Patient presents with: 6 Month Exam Recording using [employer] software for draft documentation of the visit was discussed with the patient/authorized pharmaceutical specialty representative; all questions welcomed and answered. Patient/authorized pharmaceutical specialty representative agreed to proceed HPI Tashia Fernandez is a 75 year old female who presents here today for Above Complaints. Diabetes Mellitus: - Tashia Fernandez monitors blood glucose levels at home; readings typically in the 90s. - Highest recorded blood glucose was 120 mg/dL. - Recent reading of 111 mg/dL attributed to consuming cake the previous night. - Lowest recorded blood glucose was 82 mg/dL. - Managed with diet; not on Metformin. - Nocturia noted; Tashia denies polyphagia, polydipsia, or vision changes. - Regularly checks feet for wounds or injuries; Tashia denies new rashes or injuries. - Recent eye exam on June [address] Resendiz at [facility]; no significant changes reported. Chronic Kidney Disease: - Recent nephrology consultation for decreased kidney function and hyponatremia; spring machine operator reported stable condition. - Next nephrology appointment scheduled for September. - Tashia adheres to a low-sodium diet; avoids NSAIDs as per spring machine operator's advice. - Takes Tylenol occasionally for pain, especially at night. Supraventricular Tachycardia: - Managed with Labetalol; [place] adheres to prescribed dosage. - No recent episodes of chest pain, dyspnea, or palpitations. Hiatal Hernia: - Managed by Dr. Kelley. - Occasional dysphagia; [place] denies worsening symptoms. - Underwent EGD last year with no significant findings. - Manages symptoms by taking small bites, chewing thoroughly, and drinking water with meals. Osteoporosis: - [place] takes Fosamax once a week. Constipation: - Managed with Miralax and two stool softeners nightly; [place] reports regular bowel movements. Urinary Retention: - Previously prescribed medication by a urologist, which was discontinued after one month due to daytime urinary retention. - [place] denies current urinary incontinence; not interested in new medication. Skin Concerns: - [place] reports a persistent dry patch on the left arm and bothersome skin tags. - Applies Vicks VapoRub to feet nightly for moisture. Past medical history, appointments, medications, allergies reviewed. Previous Medical History PAST MEDICAL HISTORY Diagnosis Date Contact dermatitis and other eczema Degenerative arthritis of knee 05/24/2011 Delayed gastric emptying 07/24/2012 Diabetes mellitus type II (HCC) 05/31/2024 Diarrhea Diverticulitis Diverticulosis of colon (without mention of hemorrhage) Diverticulosis Dysphagia, unspecified 08/29/2017 Elevated alkaline phosphatase level 07/12/2018 Essential hypertension, benign GERD (gastroesophageal reflux disease) Hiatal hernia Hyperlipidemia Hypokalemia 09/25/2012 Hyponatremia Hypothyroidism Impaired fasting glucose 11/19/2015 Inadequate pelvic muscles 01/17/2012 Lumbar disc disease with radiculopathy 09/01/2016 Lung nodule < 6cm on CT 10/15/2018 10/07/18: incidental 4.5 mm nodule RML thyrotoxicosis Nonrheumatic mitral (valve) insufficiency Obesity Other osteoporosis 12/21/2006 Pancreatitis (HCC) Paroxysmal SVT (supraventricular tachycardia) ([facility]) Personal history of colonic polyps Colon polyps POLYP STOMACH 07/13/2007 Stage 3a chronic kidney disease (HCC) Statin intolerance 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--surgery not needed (2015) Trigeminal neuralgia 10/11/2011 Trochanteric bursitis of left hip 07/24/2012 Unspecified hemorrhoids without mention of complication Hemorrhoids Previous Surgical History PAST SURGICAL HISTORY Procedure Laterality Date COLONOSCOPY FLX DX W/COLLJ SPEC WHEN PFRMD 12/2018 Colonoscopy COLONOSCOPY FLX DX W/COLLJ SPEC WHEN PFRMD 07/13/2007 Lax colon COLONOSCOPY FLX DX W/COLLJ SPEC WHEN PFRMD 03/26/2014 Colonoscopy COLONOSCOPY FLX DX W/COLLJ SPEC WHEN PFRMD 12/2018 [id number] 10 years COLONOSCOPY GEN ANES 04/28/2021 DECOMPRESSION PLANTAR DIGITAL NERVE 2000 heel spur/ plantar fasciitis repair Rt EGD 06/02/2021 EGD TRANSORAL BIOPSY SINGLE/MULTIPLE 07/13/2007 Gastritis, fundic gland polyps [facility] VARICIES INJ 01/03/2024 Dr. Kelley ESOPHAGOGASTRODUODENOSCOPY TRANSORAL DIAGNOSTIC 03/26/2014 EGD EYE SURGERY HX INCISE FINGER TENDON SHEATH Left 08/09/2024 Left ring trigger finger release (more content not included)... Normal [facility] Comprehensive metabolic 2000 panelon 07-04-2025 Albumin [Mass/Vol] 4.0 g/dL Normal 3.9-4.9 [facility] Comment on above: Order Comment: Speci men Type: BLOOD SPECIMEN Ordering Facility: [facility] Address: [address] [place] [address] Performed By: #### 1 751-7, 86754-9, 2731-06 #### [facility] CLIA [id number] [address] [place] [address] [place] ALP [Catalytic activity/Vol] 70 U/L Normal 34-123 [facility] Comment on above: Order Comment: Speci men Type: BLOOD SPECIMEN Ordering Facility: [facility] Address: [address] [place] [address] Performed By: #### 1 751-7, 49624-5, 2731-06 #### [facility] CLIA [id number] [address] [place] [address] [place] ALT [Catalytic activity/Vol] 16 U/L Normal 7-38 [facility] Comment on above: Order Comment: Speci men Type: BLOOD SPECIMEN Ordering Facility: [facility] Address: [address] [place] [address] Performed By: #### 1 751-7, 11622-6, 2731-06 #### [facility] CLIA [id number] [address] [place] [address] [place] Anion gap [Moles/Vol] 12 mmol/L Normal 8-15 [facility] Comment on above: Order Comment: Speci men Type: BLOOD SPECIMEN Ordering Facility: [facility] Address: [address] [place] [address] Performed By: #### 1 751-7, 65892-7, 2731-06 #### [facility] CLIA [id number] [address] [place] [address] [place] AST [Catalytic activity/Vol] 21 U/L Normal 13-35 [facility] Comment on above: Order Comment: Speci men Type: BLOOD SPECIMEN Ordering Facility: [facility] Address: [address] [place] [address] Performed By: #### 1 751-7, 69960-2, 2731-06 #### [facility] CLIA [id number] [address] [place] [address] [place] Bilirubin [Mass/Vol] 0.3 mg/dL Normal 0.2-1.3 [facility] Comment on above: Order Comment: Speci men Type: BLOOD SPECIMEN Ordering Facility: [facility] Address: [address] [place] [address] Performed By: #### 1 751-7, 41730-4, 2731-06 #### [facility] CLIA [id number] [address] [place] [address] [place] Calcium [Mass/Vol] 9.3 mg/dL Normal 8.5-10.2 [facility] Comment on above: Order Comment: Speci men Type: BLOOD SPECIMEN Ordering Facility: [facility] Address: [address] [place] [address] Performed By: #### 1 751-7, 04376-5, 2731-06 #### [facility] CLIA [id number] [address] [place] [address] [place] Chloride [Moles/Vol] 97 mmol/L Low 98-107 [facility] Comment on above: Order Comment: Speci men Type: BLOOD SPECIMEN Ordering Facility: [facility] Address: [address] [place] [address] Performed By: #### 1 751-7, 05531-0, 2731-06 #### [facility] CLIA [id number] [address] [place] [address] [place] CO2 [Moles/Vol] 24 mmol/L Normal 22-30 [facility] Comment on above: Order Comment: Speci men Type: BLOOD SPECIMEN Ordering Facility: [facility] Address: [address] [place] [address] Performed By: #### 1 751-7, 48677-5, 2731-06 #### [facility] CLIA [id number] [address] [place] [address] [place] Creatinine [Mass/Vol] 1.12 mg/dL High 0.58-0.96 [facility] Comment on above: Order Comment: Speci men Type: BLOOD SPECIMEN Ordering Facility: [facility] Address: [address] [place] [address] Performed By: #### 1 751-7, 38905-1, 2731-06 #### [facility] CLIA [id number] [address] [place] [address] [place] eGFRcr SerPlBld CKD-EPI 1 51 mL/min/1.73m??? Low >=60 [facility] Comment on above: Order Comment: Speci men Type: BLOOD SPECIMEN Ordering Facility: [facility] Address: [address] [place] [address] Result Comment: Nicole mated Glomerular Filtration Rate (eGFR) is calculated using the 2020 CKD-EPI creatinine equation. This equation utilizes serum creatinine, sex, and age as parameters. The creatinine assay has traceable calibration to isotope dilution-mass spectrometry. Refer to KDIGO guidelines for clinical interpretation. In patients with unstable renal function, e.g. those with acute kidney injury, the eGFR may not accurately reflect actual GFR. Performed By: #### 1 751-7, 96235-5, 8 #### [facility] CLIA [id number] [address] [place] [place] [address] [place] Glucose [Mass/Vol] 79 mg/dL Normal 74-99 [facility] Comment on above: Order Comment: Mich barlow Type: BLOOD SPECIMEN Ordering Facility: [facility] Address: [address] [place] [address] Result Comment: The [place] Diabetes Association (ADA) provides guidance for cutoff values for fasting glucose and random glucose. The ADA defines fasting as no caloric intake for at least 8 hours. Fasting plasma glucose results between 100 to 125 [...] Standards of Medical Care in Diabetes 2016, [place] Diabetes Association. Diabetes Care. 2016.39(Suppl 1). Performed By: #### 1 751-7, 37451-1, 2731-06 #### [facility] CLIA [id number] [address] [place] [address] [place] Potassium [Moles/Vol] 4.7 mmol/L Normal 3.7-5.1 [facility] Comment on above: Order Comment: Mich barlow Type: BLOOD SPECIMEN Ordering Facility: [facility] Address: [address] [place] [address] Performed By: #### 1 751-7, 37056-8, 2731-06 #### [facility] CLIA [id number] [address] [place] [address] [place] Protein [Mass/Vol] 6.6 g/dL Normal 6.3-8.0 [facility] Comment on above: Order Comment: Speci men Type: BLOOD SPECIMEN Ordering Facility: [facility] Address: [address] [place] [address] Performed By: #### 1 751-7, 45876-9, 2731-06 #### [facility] CLIA [id number] [address] [place], [place] [id number] [place] Sodium [Moles/Vol] 133 mmol/L Low 136-144 [facility] Comment on above: Order Comment: Speci men Type: BLOOD SPECIMEN Ordering Facility: [facility] Address: [address] [place] [address] Performed By: #### 1 751-7, 14928-2, 2731-06 #### [facility] CLIA [id number] [address] [place] [address] [place] Urea nitrogen [Mass/Vol] 14 mg/dL Normal 7-21 [facility] Comment on above: Order Comment: Speci men Type: BLOOD SPECIMEN Ordering Facility: [facility] Address: [address] [place] [address] Performed By: #### 1 751-7, 16672-0, 2731-06 #### [facility] CLIA [id number] [address] [place], [place] [id number] [place] HbA1c (Bld)on 07-04-2025 Average glucose Estimated from glycated hemoglobin (Bld) [Mass/Vol] 134 mg/dL Normal [facility] Comment on above: Order Comment: Speci men Type: BLOOD SPECIMEN Ordering Facility: [facility] Address: [address] [place] [address] Result Comment: eAG: (Estimated average glucose) is a calculated value from HgbA1c and is pharmaceutical specialty representative of the average blood glucose level in the last 2-3 month period. Performed By: #### 1 751-7, 49925-9, 273-8 #### [facility] CLIA [id number] [address] [place] [address] [place] HbA1c (Bld) [Mass fraction] 6.3 % High 4.3-5.6 [facility] Comment on above: Order Comment: Speci men Type: BLOOD SPECIMEN Ordering Facility: [facility] Address: [address] [place] [address] [place] [address] Result Comment: [place] Diabetes Association guidelines indicate that patients with HgbA1c in the range 5.7-6.4% are at increased risk for development of diabetes, and intervention by lifestyle modification may be beneficial. HgbA1c greater or equal to 6.5% is considered diagnostic of diabetes. Performed By: #### 1 751-7, 90026-0, 273-8 #### [facility] CLIA [id number] [address] [place] [address] [place] CNPNon 03-27-2025 CNPN Telephone (PNMDNA) TASHIA FERNANDEZ ([id number]) 1950 F Date Time Provider Department 03/27/25 JERRI PALAFOX PNNA During your visit today, we recorded the following information about you: Lady Fay, RN 03/27/2025 10:[address] Sauer reviewed patient's cervical XRAY. Cervical XRAY shows: Degenerative disc disease (wear and tear) at C3-4, C5-6, C6-7 Dr. Sauer recommends a C7-T1 FREDDY. Injection order pended for provider review. Routing to provider. Office to contact patient via telephone once injection order placed. Jerri Palafox, LUIS MIGUEL.CASH ACCOUNTING CLERK 03/28/2025 8:09 AM Signed Injection order signed off Lady Fay RN 03/28/2025 9:02 AM Signed Informed patient via telephone of Dr. Sauer's review and recommendations. Patient declined injection procedure. Patient to contact office with any future needs. Allergies As of Date: 03/27/2025 Noted Allergy Reaction LIPITOR (ATORVASTATIN CALCIUM) 10/21/2014 14 - Other: See Comments Comments: muscle cramps SPIRONOLACTONE 03/21/2014 14 - Other: See Comments Comments: headache ACEON (PERINDOPRIL ERBUMINE) 11/02/2005 2 - Rash 3 - Cough CODEINE 12/09/2009 5 - Intolerance Comments: Chest pain LISINOPRIL 10/07/2005 3 - Cough Comments: dry hacking cough Date Reviewed: 03/26/2025 Reviewed by: Vangie Gonzalez LPN - Fully Assessed Reason for Visit: Results [95] Cmt: Cervical XRAY Primary Visit Diagnosis:Cervical spondylosis without myelopathy [M47.812] Other Visit Diagnosis:Cervical spinal stenosis [M48.02] Order(s):EPI CERV OR THORC W/IMAGING [[id number]] Order #: [id number] Prescriptions as of 03/28/2025 - trospium (SANCTURA) 20 mg tablet Take 1 tablet by mouth daily at bedtime. - isosorbide mononitrate ER (IMDUR) 30 mg 24 hr tablet Take 1 tablet by mouth once daily. - labetalol (TRANDATE) 200 mg tablet Take 1 tablet by mouth two times a day. - losartan (COZAAR) 100 mg tablet Take 1 tablet by mouth once daily. - gabapentin (NEURONTIN) 300 mg capsule Take 1 capsule by mouth daily at bedtime for 90 days. - blood sugar diagnostic (BLOOD GLUCOSE TEST) test strip Test blood sugar(s) 1 times daily. Dx: Prediabetes Insulin: No - Lancets Test blood sugar(s) 1 times daily. Dx: Prediabetes Insulin: No - rosuvastatin (CRESTOR) 20 mg tablet Take 1 tablet by mouth daily at bedtime. - diphenhydrAMINE (BENADRYL) 25 mg tablet Take 25 mg by mouth at bedtime as needed. - OTC PRODUCT Take 1 tablet by mouth once daily. Prevagen - alendronate (FOSAMAX) 70 mg tablet Take 1 tablet by mouth one time a week. In AM with cup of water on empty stomach. Nothing else by mouth and stay upright for 30 min. - levothyroxine (SYNTHROID) 88 mcg tablet Take one tablet daily Monday-Monday and two tablets on Monday - amLODIPine (NORVASC) 2.5 mg tablet Take one tablet daily in addition to 5 mg to equal 7.5 mg daily - amLODIPine (NORVASC) 5 mg tablet Take 1 tablet by mouth once daily. - pantoprazole DR (PROTONIX) 40 mg tablet Take 1 tablet by mouth once daily. - potassium chloride ER (KLOR-CON) 20 mEq tablet Take 2 tablets by mouth two times a day. - meclizine (ANTIVERT) 25 mg tab Take 1 tablet by mouth three times a day as needed (vertigo). - polyethylene glycol 3350 17 gram/dose powder Take 17 g by mouth once daily. Dissolve dose in 4 - 8 ounces of liquid and take as directed. - doxylamine succinate (SLEEP AID ORAL) Take by mouth daily at bedtime. - calcium carbonate-Vit D3-minerals (CALTRATE) 600 mg calcium- 400 unit tab Take 2 tablets by mouth once daily. - ondansetron orally disintegrating (ZOFRAN ODT) 4 mg disintegrating tablet Take 1 tablet by mouth every 6 hours as needed for Nausea/Vomiting. - 0.9 % sodium chloride (NACL 0.9%) 0.9% solp Infuse 500 ml IV over [address] - Biotin 2,500 mcg cap Take 1 capsule by mouth once daily. - aspirin, enteric coated (ASPIRIN, ENTERIC COATED) 81 mg EC tablet Take 81 mg by mouth once daily. Meds Comments as of 01/03/2017: Biotin Problem List As Of Date 03/27/2025 Noted Resolved Primary hypertension [I10] Personal history of colonic polyps [Z86.0100] 06/02/2021 Postablative hypothyroidism [E89.0] 10/10/2005 Osteoporosis [M81.0] 01/16/2007 GASTRITIS ANTRAL( W/O Hemorrhage) [K29.60] 07/13/2007 11/02/2015 POLYP STOMACH [D13.1] 07/13/2007 12/19/2019 CERVICAL DISC DEGEN [M50.30] 02/11/2009 Degenerative arthritis of knee [M17.9] 05/24/2011 Trigeminal neuralgia [G50.0] 10/11/2011 Inadequate pelvic muscles [R29.898] 01/17/2012 Mixed stress and urge urinary incontinence [N39*02/03/2012 Uterine prolapse [N81.4] 02/03/2012 Cystocele, midline [N81.11] 02/03/2012 Gastroesophageal reflux disease [K21.9] 06/01/2012 Delayed gastric emptying [K30] 07/24/2012 Trochanteric bursitis of left hip [M70.62] 07/24/2012 10/15/2018 Chronic hypokalemia [E87.6] 09/25/2012 Thoracic radiculopathy due to degenerat (more content not included)... Normal [facility] CNOVon 03-26-2025 CNOV Office Visit (KARTHIKEYANWS ) TASHIA FERNANDEZ ([id number]) 1950 F Date Time Provider Department 03/26/25 9:00 AM ELIZABETH OG During your visit today, we recorded the following information about you: Pulse Respiration Blood pressure Weight 72/minute 18/minute 134/80 78.8 kg Elizabeth Og APRN.CNP 03/26/2025 9:37 AM Signed 03/26/2025 Patient presents with: Blood Pressure Check Recording using [employer] software for draft documentation of the visit was discussed with the patient/authorized pharmaceutical specialty representative; all questions welcomed and answered. Patient/authorized pharmaceutical specialty representative agreed to proceed SUBJECTIVE: This is a 74 year old that is here today for Above Complaints.. Hypertension: - Electronic Wirer requested BP monitoring for 2 weeks. - BP readings: systolic 107-148 mmHg, diastolic 60-80 mmHg. Majority 130's/80's - Higher readings noted in the evening, associated with pain. - Denies headaches, dizziness, or lightheadedness. - Follow-up with spring machine operator scheduled for September. PAST MEDICAL HISTORY Diagnosis Date Contact dermatitis and other eczema Degenerative arthritis of knee 05/24/2011 Delayed gastric emptying 07/24/2012 Diabetes mellitus type II (HCC) 05/31/2024 Diarrhea Diverticulitis Diverticulosis of colon (without mention of hemorrhage) Diverticulosis Dysphagia, unspecified 08/29/2017 Elevated alkaline phosphatase level 07/12/2018 Essential hypertension, benign GERD (gastroesophageal reflux disease) Hyperlipidemia Hypokalemia 09/25/2012 Hyponatremia Hypothyroidism Impaired fasting glucose 11/19/2015 Inadequate pelvic muscles 01/17/2012 Lumbar disc disease with radiculopathy 09/01/2016 Lung nodule < 6cm on CT 10/15/2018 10/07/18: incidental 4.5 mm nodule RML thyrotoxicosis Nonrheumatic mitral (valve) insufficiency Obesity Other osteoporosis 12/21/2006 Pancreatitis (HCC) Paroxysmal SVT (supraventricular tachycardia) (HCC) Personal history of colonic polyps Colon polyps POLYP STOMACH 07/13/2007 Stage 3a chronic kidney disease (HCC) Statin intolerance 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 isosorbide mononitrate ER (IMDUR) 30 mg 24 hr tablet Take 1 tablet by mouth once daily. labetalol (TRANDATE) 200 mg tablet Take 1 tablet by mouth two times a day. losartan (COZAAR) 100 mg tablet Take 1 tablet by mouth once daily. gabapentin (NEURONTIN) 300 mg capsule Take 1 capsule by mouth daily at bedtime for 90 days. blood sugar diagnostic (BLOOD GLUCOSE TEST) test strip Test blood sugar(s) 1 times daily. Dx: Prediabetes Insulin: No Lancets Test blood sugar(s) 1 times daily. Dx: Prediabetes Insulin: No rosuvastatin (CRESTOR) 20 mg tablet Take 1 tablet by mouth daily at bedtime. diphenhydrAMINE (BENADRYL) 25 mg tablet Take 25 mg by mouth at bedtime as needed. OTC PRODUCT Take 1 tablet by mouth once daily. Prevagen alendronate (FOSAMAX) 70 mg tablet Take 1 tablet by mouth one time a week. In AM with cup of water on empty stomach. Nothing else by mouth and stay upright for 30 min. levothyroxine (SYNTHROID) 88 mcg tablet Take one tablet daily Monday-Monday and two tablets on Monday amLODIPine (NORVASC) 2.5 mg tablet Take one tablet daily in addition to 5 mg to equal 7.5 mg daily amLODIPine (NORVASC) 5 mg tablet Take 1 tablet by mouth once daily. pantoprazole DR (PROTONIX) 40 mg tablet Take 1 tablet by mouth once daily. potassium chloride ER (KLOR-CON) 20 mEq tablet Take 2 tablets by mouth two times a day. meclizine (ANTIVERT) 25 mg tab Take 1 tablet by mouth three times a day as needed (vertigo). polyethylene glycol 3350 17 gram/dose powder Take 17 g by mouth once daily. Dissolve dose in 4 - 8 ounces of liquid and take as directed. doxylamine succinate (SLEEP AID ORAL) Take by mouth daily at bedtime. calcium carbonate-Vit D3-minerals (CALTRATE) 600 mg calcium- 400 unit tab Take 2 tablets by mouth once daily. ondansetron orally disintegrating (ZOFRAN ODT) 4 mg disintegrating tablet Take 1 tablet by mouth every 6 hours as needed for Nausea/Vomiting. 0.9 % sodium chloride (NACL 0.9%) 0.9% solp Infuse 500 ml IV over [address] Biotin 2,500 mcg cap Take 1 capsule by mouth once daily. aspirin, enteric coated (ASPIRIN, ENTERIC COATED) 81 mg EC tablet Take 81 mg by mouth once daily. No current facility-administered medications for this visit. Medications and allergies reviewed by this provid (more content not included)... Normal [facility] Geoff 03-25-2025 CNOV Office Visit (PNMDNA ) TASHIA FERNANDEZ ([id number]) 1950 F Date Time Provider Department 03/25/25 8:00 AM PALAFOXESTEFANY MIRELESKorey FARRISMDJOVANNY During your visit today, we recorded the following information about you: Pulse Respiration Weight 71/minute 16/minute 79.2 kg Mariano Jerri Rossi, BOWLING BALL ASSEMBLER.CASH ACCOUNTING CLERK 03/25/2025 8:36 [facility] Date: March 25, 2025 - 7:53 AM Tashia Fernandez is seen in consultation requested by Dr. Elizabeth Og for an opinion regarding chronic neck pain. My final recommendations will be communicated back to the requesting physician by way of shared medical record or via US mail. Chief Complaint: neck Subjective Tashia Fernandez, is a 74 year old female who presents with neck pain that radiates down the right UE to the elbow The pain started The pain onset was gradual. The patient states that the current pain is persistent. Her pain is located in the right neck and radiates to right upper extremity along to the level of the elbow ////// The pain is described as aching, sharp, and stabbing. The pain intensity is currently rated 10 on a scale of 10. The pain is exacerbated by activity, twisting, flexion, and extension. The pain is relieved by application of heat. Symptoms interfere with physical activity, work, walking, cooking, and social activities. PAIN EVALUATION No data found in the last 1 encounters. Prior pain treatment has included: Medication(s): She has tried the following for relief of her symptoms: OTC Tylenol Physical Therapy: She has not had physical therapy for her current symptoms. Cannot afford PT Spinal Injections: She has not gotten prior spinal injections. Other: Chiropractor 12 years ago ALLERGIES Allergen Reactions Lipitor [Atorvastat* Other: See Comments muscle cramps Spironolactone Other: See Comments headache Aceon [Perindopril * Rash, Cough Codeine Intolerance Chest pain Lisinopril Cough dry hacking cough Current Medications: Pain medications reviewed and reconciled in the medication list: Yes. Current Outpatient Medications Medication Sig trospium (SANCTURA) 20 mg tablet Take 1 tablet by mouth daily at bedtime. isosorbide mononitrate ER (IMDUR) 30 mg 24 hr tablet Take 1 tablet by mouth once daily. labetalol (TRANDATE) 200 mg tablet Take 1 tablet by mouth two times a day. losartan (COZAAR) 100 mg tablet Take 1 tablet by mouth once daily. gabapentin (NEURONTIN) 300 mg capsule Take 1 capsule by mouth daily at bedtime for 90 days. blood sugar diagnostic (BLOOD GLUCOSE TEST) test strip Test blood sugar(s) 1 times daily. Dx: Prediabetes Insulin: No Lancets Test blood sugar(s) 1 times daily. Dx: Prediabetes Insulin: No rosuvastatin (CRESTOR) 20 mg tablet Take 1 tablet by mouth daily at bedtime. diphenhydrAMINE (BENADRYL) 25 mg tablet Take 25 mg by mouth at bedtime as needed. OTC PRODUCT Take 1 tablet by mouth once daily. Prevagen alendronate (FOSAMAX) 70 mg tablet Take 1 tablet by mouth one time a week. In AM with cup of water on empty stomach. Nothing else by mouth and stay upright for 30 min. levothyroxine (SYNTHROID) 88 mcg tablet Take one tablet daily Monday-Monday and two tablets on Monday amLODIPine (NORVASC) 2.5 mg tablet Take one tablet daily in addition to 5 mg to equal 7.5 mg daily amLODIPine (NORVASC) 5 mg tablet Take 1 tablet by mouth once daily. pantoprazole DR (PROTONIX) 40 mg tablet Take 1 tablet by mouth once daily. potassium chloride ER (KLOR-CON) 20 mEq tablet Take 2 tablets by mouth two times a day. meclizine (ANTIVERT) 25 mg tab Take 1 tablet by mouth three times a day as needed (vertigo). polyethylene glycol 3350 17 gram/dose powder Take 17 g by mouth once daily. Dissolve dose in 4 - 8 ounces of liquid and take as directed. doxylamine succinate (SLEEP AID ORAL) Take by mouth daily at bedtime. calcium carbonate-Vit D3-minerals (CALTRATE) 600 mg calcium- 400 unit tab Take 2 tablets by mouth once daily. ondansetron orally disintegrating (ZOFRAN ODT) 4 mg disintegrating tablet Take 1 tablet by mouth every 6 hours as needed for Nausea/Vomiting. 0.9 % sodium chloride (NACL 0.9%) 0.9% solp Infuse 500 ml IV over [address] Biotin 2,500 mcg cap Take 1 capsule by mouth once daily. aspirin, enteric coated (ASPIRIN, ENTERIC COATED) 81 mg EC tablet Take 81 mg by mouth once daily. No current facility-administered medications for this visit. PAST MEDICAL HISTORY Diagnosis Date Contact dermatitis and other eczema Degenerative arthritis of knee 05/24/2011 Delayed gastric emptying 07/24/2012 Diabetes mellitus type II (HCC) 05/31/2024 Diarrhea Diverticulitis Diverticulosis of colon (without mention of hemorrhage) Diverticulosis Dysphagia, unspecified 08/29/2017 Elevated alkaline phosphatase level 07/12/2018 Essential hypertension, benign GERD (moe (more content not included)... Normal [facility] XR CERVICAL 4V AP/LAT/OBLon 03-25-2025 XR CERVICAL 4V AP/LAT/OBL * * *Final Report* * * DATE OF EXAM: Mar 25 2025 8:47AM MDX [id number] - XR CERVICAL 4V AP/LAT/OBL / PROCEDURE REASON: M54.2-Cervical spine pain * * * * Physician Interpretation * * * * PROCEDURE: Cervical spine INDICATION: Cervical spine pain .neck pain traveling down right arm, has had pain for years TECHNIQUE: XR CERVICAL 4V AP/LAT/OBL COMPARISON: 02/17/2022 FINDINGS: Normal alignment without acute fracture or subluxation. Mild degenerative disc disease at C3-4, C5-6 and C6-7 and mild facet arthrosis bilaterally at multiple levels. Mild left-sided C3-4 and C5-C6 bony neural foraminal narrowing. Prevertebral soft tissues are within normal limits. IMPRESSION: Degenerative changes, showing mild interval progression Sandwich And Drink Cart Operator[facility] Transcribe Date/Time: Mar 27 2025 7:30A Dictated by : HUSSEIN PEPPER MD This examination was interpreted and the report reviewed and electronically signed by: HUSSEIN PEPPER MD on Mar 27 2025 7:32AM EST [id number] Normal [facility] Albumin SerPl-mCncon 025 Albumin [Mass/Vol] 4.4 g/dL Normal 3.9-4.9 [facility] Comment on above: Order Comment: Speci men Type: BLOOD SPECIMEN Ordering Facility: [facility] Address: [address] [place] [address] Performed By: #### 1 751-7, 17377-0, 2731-06 #### [facility] CLIA [id number] [address] [place] [address] [place] Basic metabolic 2000 panelon 03-11-2025 Anion gap [Moles/Vol] 15 mmol/L Normal 8-15 [facility] Comment on above: Order Comment: Speci men Type: BLOOD SPECIMEN Ordering Facility: [facility] Address: [address] [place] [address] Performed By: #### 1 751-7, 68680-1, 2731-06 #### [facility] CLIA [id number] [address] [place] [address] [place] Calcium [Mass/Vol] 9.5 mg/dL Normal 8.5-10.2 [facility] Comment on above: Order Comment: Speci men Type: BLOOD SPECIMEN Ordering Facility: [facility] Address: [address] [place] [address] Performed By: #### 1 751-7, 10757-1, 2731-06 #### [facility] CLIA [id number] [address] [place] [address] [place] Chloride [Moles/Vol] 100 mmol/L Normal 98-107 [facility] Comment on above: Order Comment: Speci men Type: BLOOD SPECIMEN Ordering Facility: [facility] Address: [address] [place] [address] Performed By: #### 1 751-7, 87975-8, 2731-06 #### [facility] CLIA [id number] [address] [place], [place] [id number] [place] CO2 [Moles/Vol] 22 mmol/L Normal 22-30 [facility] Comment on above: Order Comment: Speci men Type: BLOOD SPECIMEN Ordering Facility: [facility] Address: [address] [place] [address] Performed By: #### 1 751-7, 81427-4, 2731-06 #### [facility] CLIA [id number] [address] [place] [address] [place] Creatinine [Mass/Vol] 1.07 mg/dL High 0.58-0.96 [facility] Comment on above: Order Comment: Mich barlow Type: BLOOD SPECIMEN Ordering Facility: [facility] Address: [address] [place] [address] Performed By: #### 1 751-7, 19368-8, 2731-06 #### [facility] CLIA [id number] [address] [place] [address] [place] Creatinine and Glomerular filtration rate.predicted panel (S/P/Bld) 54 mL/min/1.73m??? Low >=60 [facility] Comment on above: Order Comment: Mich barlow Type: BLOOD SPECIMEN Ordering Facility: [facility] Address: [address] [place] [address] Result Comment: Nicole mated Glomerular Filtration Rate (eGFR) is calculated using the 2020 CKD-EPI creatinine equation. This equation utilizes serum creatinine, sex, and age as parameters. The creatinine assay has traceable calibration to isotope dilution-mass spectrometry. Refer to KDIGO guidelines for clinical interpretation. In patients with unstable renal function, e.g. those with acute kidney injury, the eGFR may not accurately reflect actual GFR. Performed By: #### 1 751-7, 70720-6, 2731-06 #### [facility] CLIA [id number] [address] [place] [address] [place] Glucose [Mass/Vol] 98 mg/dL Normal 74-99 [facility] Comment on above: Order Comment: Mich barlow Type: BLOOD SPECIMEN Ordering Facility: [facility] Address: [address] [place] [address] Result Comment: The [place] Diabetes Association (ADA) provides guidance for cutoff values for fasting glucose and random glucose. The ADA defines fasting as no caloric intake for at least 8 hours. Fasting plasma glucose results between 100 to 125 [...] Standards of Medical Care in Diabetes 2016, [place] [employer]. Diabetes Care. 2016.39(Suppl 1). Performed By: #### 1 751-7, 65871-1, 2731-06 #### [facility] CLIA [id number] [address] [place] [address] [place] Potassium [Moles/Vol] 4.8 mmol/L Normal 3.7-5.1 [facility] Comment on above: Order Comment: Mich men Type: BLOOD SPECIMEN Ordering Facility: [facility] Address: [address] [place] [address] Performed By: #### 1 751-7, , 2731-06 #### [facility] CLIA [id number] [address] [place] [address] [place] Sodium [Moles/Vol] 137 mmol/L Normal 136-144 [facility] Comment on above: Order Comment: Mich barlow Type: BLOOD SPECIMEN Ordering Facility: [facility] Address: [address] [place] [address] Performed By: #### 1 751-7, , 2731-06 #### [facility] CLIA [id number] [address] [place] [address] [place] Urea nitrogen [Mass/Vol] 12 mg/dL Normal 7-21 [facility] Comment on above: Order Comment: Carolei men Type: BLOOD SPECIMEN Ordering Facility: [facility] Address: [address] [place] [address] Performed By: #### 1 751-7, 79541-3, 2731-06 #### [facility] CLIA [id number] [address] [place] [address] [place] CNOVon 03-11-2025 CNOV Office Visit (KIDMST ) TASHIA FERNANDEZ ([id number]) 1950 F Date Time Provider Department 03/11/25 2:20 PM JEAN-PIERRE VELAZCO During your visit today, we recorded the following information about you: Temperature Pulse Blood pressure Weight 97.8 degrees 70/minute 145/79 78.9 kg Height 1.524 m Jean-Pierre Velazco I, MD 03/11/2025 3:29 PM Signed [facility]. Name:Tashia Fernandez The patient, Tashia Fernandez's, identity was verified by name and MRN. Pt is accompanied in the office today by her daughter Consultation requested by Dr. Elisa Starr ,for my opinion regarding CKD 3 and hyponatremia. My final recommendations will be communicated back to the requesting physician by way of shared Medical record or letter . PCP:Elisa Starr MD HPI: Tashia Fernandez is a 74-year-old female with H/O Hyperlipidemia,HTN, CAD, SVT, valvular heart disease, GERD, post ablative hypothyroidism, osteoporosis, DJD and trigeminal neuralgia-seen for evaluation of CKD 3 and hyponatremia. -CKD 3:Review of records shows her serum cr has been abnormal since 2017. Baseline serum cr:1.0-1.1 mg/dl. She has noticed a proteinuria-on losartan. No H/O frequent bladder infections or kidney stones in the past. CT abdomen and pelvis done on 01/21/2025 showed kidneys without any mass, stones or hydronephrosis. Denies NSAID use. -Hyponatremia:Chronic hyponatremia dating back many years -Noted to be present off and on since 2016 at least.. Serum sodium has mostly ranged between 131-134. she is not on any medications known to cause hyponatremia.Serum and urine studies done in December 2024 showed normal serum osmolality-urine sodium was 34 and urine osmolality was around 422. She reports drinking a lot of water daily. She has some dyspnea on exertion. Denies recent worsening Denies CP, orthopnea, PND or palpitations. Denies leg edema No fever, chills or dizziness-takes meclizine for vertigo. No nausea, emesis, abdominal pain or persistent diarrhea. No dysuria, gross hematuria or new flank pain-Has cystocele with chronic urinary incontinence. Followed by urology Denies generalized skin rash or arthralgias. She reports a chronic headache localized to the left side of her head, persisting for over a month-which has been evaluated. The headache has not improved with a course of prednisone. She denies gait instability, confusion, worsening of her chronic blurred vision or increased somnolence. Detailed review of systems is as below. I have reviewed current medications and allergies Current Outpatient Medications Medication Sig trospium (SANCTURA) 20 mg tablet Take 1 tablet by mouth daily at bedtime. isosorbide mononitrate ER (IMDUR) 30 mg 24 hr tablet Take 1 tablet by mouth once daily. labetalol (TRANDATE) 200 mg tablet Take 1 tablet by mouth two times a day. losartan (COZAAR) 100 mg tablet Take 1 tablet by mouth once daily. gabapentin (NEURONTIN) 300 mg capsule Take 1 capsule by mouth daily at bedtime for 90 days. blood sugar diagnostic (BLOOD GLUCOSE TEST) test strip Test blood sugar(s) 1 times daily. Dx: Prediabetes Insulin: No Lancets Test blood sugar(s) 1 times daily. Dx: Prediabetes Insulin: No rosuvastatin (CRESTOR) 20 mg tablet Take 1 tablet by mouth daily at bedtime. diphenhydrAMINE (BENADRYL) 25 mg tablet Take 25 mg by mouth at bedtime as needed. OTC PRODUCT Take 1 tablet by mouth once daily. Prevagen alendronate (FOSAMAX) 70 mg tablet Take 1 tablet by mouth one time a week. In AM with cup of water on empty stomach. Nothing else by mouth and stay upright for 30 min. levothyroxine (SYNTHROID) 88 mcg tablet Take one tablet daily Monday-Monday and two tablets on Monday amLODIPine (NORVASC) 2.5 mg tablet Take one tablet daily in addition to 5 mg to equal 7.5 mg daily amLODIPine (NORVASC) 5 mg tablet Take 1 tablet by mouth once daily. pantoprazole DR (PROTONIX) 40 mg tablet Take 1 tablet by mouth once daily. potassium chloride ER (KLOR-CON) 20 mEq tablet Take 2 tablets by mouth two times a day. meclizine (ANTIVERT) 25 mg tab Take 1 tablet by mouth three times a day as needed (vertigo). polyethylene glycol 3350 17 gram/dose powder Take 17 g by mouth once daily. Dissolve dose in 4 - 8 ounces of liquid and take as directed. doxylamine succinate (SLEEP AID ORAL) Take by mouth daily at bedtime. calcium carbonate-Vit D3-minerals (CALTRATE) 600 mg calcium- 400 unit tab Take 2 tablets by mouth once daily. ondansetron orally disintegrating (ZOFRAN ODT) 4 mg disintegrating tablet Take 1 tablet by mouth every 6 hours as needed for Nausea/Vomiting. 0.9 % sodium chloride (NACL 0.9%) 0.9% solp Infuse 500 ml IV over [address] Biotin 2,500 mcg cap Take 1 capsule by mouth once daily. as (more content not included)... Normal [facility] Cortis SerPl-mCncon 03-11-20 25 Cortisol [Mass/Vol] 9.3 ug/dL Normal 4.8-19.5 [facility] Comment on above: Order Comment: Speci men Type: BLOOD SPECIMENOrdering Facility: [facility] Address: [address] [place] [address] Result [facility] is from 6-10 AM sample collection time. Cortisol Reference Range: 6-10 AM = 4.8-19.5 ug/dL, 4-8 PM = 2.5-11.9 ug/dL Performed By: #### 1 9123-9, 2777-1, 3084-1, 3016-3, 2143-6 ####[facility] [id number] [address] [place] Magnesium SerPl-mCncon 03-11 Magnesium [Mass/Vol] 2.0 mg/dL Normal 1.7-2.3 [facility] Comment on above: Order Comment: Speci men Type: BLOOD SPECIMEN Ordering Facility: [facility] Address: [address] [place] [address] Performed By: #### 1 9123-9, 2777-1, 3084-1, 3016-3, 2143-6 #### [facility] CLIA [id number] [address] [place] [address] [place] Osmolality SerPlon Osmolality [Osmolality] 280 mosm/kg Normal 275-300 [facility] Comment on above: Order Comment: Speci men Type: BLOOD SPECIMEN Ordering Facility: [facility] Address: [address] [place] [address] Performed By: #### 1 751-7, 36768-8, 8 #### [facility] CLIA [id number] [address] [place] [address] [place] Osmolality Uron 03-11-2025 Osmolality (U) [Osmolality] 286 mosm/kg Normal 50-1200 [facility] Comment on above: Order Comment: Speci men Type: BLOOD SPECIMEN Ordering Facility: [facility] Address: [address] [place] [address] Performed By: #### 1 751-7, 88626-9, 2738 #### [facility] CLIA [id number] [address] [place] [address] [place] PTH-Intact SerPl-mCncon 05-0 Parathyrin.intact [Mass/Vol] 29 pg/mL Normal 15-65 [facility] Comment on above: Order Comment: Speci men Type: BLOOD SPECIMEN Ordering Facility: [facility] Address: [address] [place] [address] Performed By: #### 1 751-7, 04097-8, 2731-8 #### [facility] CLIA [id number] [address] [place], [place] [id number] [place] Phosphate SerPl-mCncon 03-11 Phosphate [Mass/Vol] 3.1 mg/dL Normal 2.7-4.8 [facility] Comment on above: Order Comment: Speci men Type: BLOOD SPECIMEN Ordering Facility: [facility] Address: [address] [place] [address] Performed By: #### 1 9123-9, 2777-1, 3084-1, 3016-3, 2142-6 #### [facility] CLIA [id number] [address] [place] [address] [place] Sodium ?Tm Ur-sCncon 025 Sodium Unsp time (U) [Moles/Vol] 22 mmol/L Normal 14-216 [facility] Comment on above: Order Comment: Speci men Type: BLOOD SPECIMEN Ordering Facility: [facility] Address: [address] [place] [address] Performed By: #### 1 751-7, 22537-8, 273-8 #### [facility] CLIA [id number] [address] [place] [address] [place] TSH SerPl-aCncon 03-11-2025 TSH Qn 1.350 m[IU]/L Normal 0.270-4.200 [facility] Comment on above: Order Comment: Speci men Type: BLOOD SPECIMENOrdering Facility: [facility] Address: [address] [place] [address] Performed By: #### 1 9123-9, 2777-1, 3084-1, 3016-3, 2142-6 ####[facility] [id number] [place] [id number] [place] Urate SerPl-mCncon Urate [Mass/Vol] 3.5 mg/dL Normal 2.5-6.6 [facility] Comment on above: Order Comment: Speci men Type: BLOOD SPECIMENOrdering Facility: [facility] Address: [address] [place] [address] Performed By: #### 1 9123-9, 2777-1, 3084-1, 3016-3, 2143-6 ####[facility] [id number] JEANNE MARQUEZ [address] [place] [facility] TASHIA FERNANDEZ ([id number]) 1950 F Date Time Provider Department 03/03/25 ELISA STARR [facility] During your visit today, we recorded the following information about you: Richa Wilkinson RN 03/03/2025 9:55 AM Signed Patient saw Lynn Og CNP on 02/21/25 and was ordered prednisone for her cervical pain. Pt reports she completed the prednisone and it did nothing to help her. She states she does not want physical therapy, as next option. States she would like to see Neurology to get to the root of the problem. Reports continued sharp shooting pain in the left top of her head as well as pain in her right arm and elbow. Pt states she feels it is nerve related. Please call pt back with provider's response. LOLI Lima Julie, APRN.CONSTANTINO 03/03/2025 10:53 AM Signed I would recommend she see spine for this if she is not wanting to try any PT Elizabeth Og APRN.Richa Clayton RN 03/03/2025 12:17 PM Signed Patient agreeable to see farm specialist. Please place referral and call patient to assist with scheduling. LOLI Lima Julie, APRN.CASH ACCOUNTING CLERK 03/03/2025 3:19 PM Signed Consult to spine medicine placed. Please let patient know she can schedule appointment at her convenience. Elizabeth gO APRN.CNP Allergies As of Date: 03/03/2025 Noted Allergy Reaction LIPITOR (ATORVASTATIN CALCIUM) 10/21/2014 14 - Other: See Comments Comments: muscle cramps SPIRONOLACTONE 03/21/2014 14 - Other: See Comments Comments: headache ACEON (PERINDOPRIL ERBUMINE) 11/02/2005 2 - Rash 3 - Cough CODEINE 12/09/2009 5 - Intolerance Comments: Chest pain LISINOPRIL 10/07/2005 3 - Cough Comments: dry hacking cough Date Reviewed: 02/25/2025 Reviewed by: Mare Calderon APRN.CNP - Fully Assessed Reason for Visit: Patient Update [1234] Primary Visit Diagnosis:Cervical spine pain [M54.2] Order(s):CON[facility]ULT TO [facility] [156844] Order #: [id number]: 1 FUTURE Prescriptions as of 03/06/2025 - trospium (SANCTURA) 20 mg tablet Take 1 tablet by mouth daily at bedtime. - isosorbide mononitrate ER (IMDUR) 30 mg 24 hr tablet Take 1 tablet by mouth once daily. - labetalol (TRANDATE) 200 mg tablet Take 1 tablet by mouth two times a day. - losartan (COZAAR) 100 mg tablet Take 1 tablet by mouth once daily. - gabapentin (NEURONTIN) 300 mg capsule Take 1 capsule by mouth daily at bedtime for 90 days. - blood sugar diagnostic (BLOOD GLUCOSE TEST) test strip Test blood sugar(s) 1 times daily. Dx: Prediabetes Insulin: No - Lancets Test blood sugar(s) 1 times daily. Dx: Prediabetes Insulin: No - rosuvastatin (CRESTOR) 20 mg tablet Take 1 tablet by mouth daily at bedtime. - diphenhydrAMINE (BENADRYL) 25 mg tablet Take 25 mg by mouth at bedtime as needed. - OTC PRODUCT Take 1 tablet by mouth once daily. Prevagen - alendronate (FOSAMAX) 70 mg tablet Take 1 tablet by mouth one time a week. In AM with cup of water on empty stomach. Nothing else by mouth and stay upright for 30 min. - levothyroxine (SYNTHROID) 88 mcg tablet Take one tablet daily Monday-Monday and two tablets on Monday - amLODIPine (NORVASC) 2.5 mg tablet Take one tablet daily in addition to 5 mg to equal 7.5 mg daily - amLODIPine (NORVASC) 5 mg tablet Take 1 tablet by mouth once daily. - pantoprazole DR (PROTONIX) 40 mg tablet Take 1 tablet by mouth once daily. - potassium chloride ER (KLOR-CON) 20 mEq tablet Take 2 tablets by mouth two times a day. - meclizine (ANTIVERT) 25 mg tab Take 1 tablet by mouth three times a day as needed (vertigo). - polyethylene glycol 3350 17 gram/dose powder Take 17 g by mouth once daily. Dissolve dose in 4 - 8 ounces of liquid and take as directed. - doxylamine succinate (SLEEP AID ORAL) Take by mouth daily at bedtime. - calcium carbonate-Vit D3-minerals (CALTRATE) 600 mg calcium- 400 unit tab Take 2 tablets by mouth once daily. - ondansetron orally disintegrating (ZOFRAN ODT) 4 mg disintegrating tablet Take 1 tablet by mouth every 6 hours as needed for Nausea/Vomiting. - 0.9 % sodium chloride (NACL 0.9%) 0.9% solp Infuse 500 ml IV over [address] - Biotin 2,500 mcg cap Take 1 capsule by mouth once daily. - aspirin, enteric coated (ASPIRIN, ENTERIC COATED) 81 mg EC tablet Take 81 mg by mouth once daily. Meds Comments as of 01/03/2017: Biotin Problem List As Of Date 03/03/2025 Noted Resolved Primary hypertension [I10] Personal history of colonic polyps [Z86.0100] 06/02/2021 Postablative hypothyroidism [E89.0] 10/10/2005 Osteoporosis [M81.0] 01/16/2007 GASTRITIS ANTRAL( W/O Hemorrhage) [K29.60] 07/13/2007 11/02/2015 POLYP STOMACH [D13.1] 07/13/2007 12/19/2019 CERVICAL DISC DEGEN [M50.30] 02/11/2009 Degenerative arthritis of knee [M17.9] 05/24/2011 Trigeminal neuralgia [G50.0] 10/11/2011 Inadequate pelvic musc (more content not included)... Normal [facility] CNOVon 02-25-2025 CNOV Office Visit (UROLMD ) TASHIA FERNANDEZ ([id number]) 1950 F Date Time Provider Department 02/25/25 10:40 AM MARE CALDERON UROLMD During your visit today, we recorded the following information about you: Weight Height 77.6 kg 1.524 m Charley Schneider LPN 02/25/2025 5:53 PM Signed Bladder scan obtained 0 ml of urine Mare Calderon, BOWLING BALL ASSEMBLER.CASH ACCOUNTING CLERK 02/25/2025 5:53 PM Signed Consultation requested by Dr. Starr for an opinion regarding nocturia, urgency. My final recommendations will be communicated back to the requesting physician by way of shared medical record or letter via [place] mail Subjective The patient is a 74-year-old female with a history of diverticulitis, presenting for evaluation of nocturia and urinary urgency. Nocturia and Urinary Urgency: - Nocturia x1 year, waking every hour during the night at times - Urinary urgency and occasional incontinence upon arriving home. - Occasional urinary leakage with coughing, laughing, or sneezing. - Denies use of pads, but occasionally changes underwear due to leakage. - Denies dysuria, hematuria, or history of UTIs. - No history of bladder or kidney surgery. - Takes Miralax with 8 oz of fluid at bedtime. - Minimal caffeine intake; occasionally drinks Coke and has switched to decaf coffee. Diverticulitis: - History of diverticulitis; was scheduled for bowel surgery in 2019. - Difficulty with bowel prep for colonoscopy, requiring three attempts for the last procedure in 2018 or 2020. Chronic Kidney Disease: - Diagnosed with stage 3 CKD; recent labs show stable kidney function. -creatinine 1.05 Hypertension: - Reports elevated blood pressure readings recently, attributed to headaches. - Previously on diuretics, discontinued by technical publications writer Dr. Strickland. Headaches: - Severe headaches, described as starting in the back and radiating to the front. - Currently taking Prednisone 4 mg daily for headache management. Obstetric History: - Three pregnancies, two live births, one miscarriage. - Both live births were vaginal deliveries. - Denies significant vaginal bulge. Genitourinary: (+) nocturia, (+) urgency, (+) stress incontinence, (+) dribbling, (-) dysuria, (-) hematuria SENSITIVE EXAMINATION CONSENT: The sensitive examination was discussed with the Patient or Patient's Authorized Label Sewer. As applicable, any other physician, advance practice provider, medical student, or other health professional student that will be observing or involved in the sensitive examination for educational or training purposes was discussed with the Patient or Authorized Label Sewer. The Patient or Authorized Label Sewer has agreed to proceed with the sensitive examination. Objective Height 152.4 cm (5'), weight 77.6 kg (171 lb). General: Alert AND oriented, no acute distress Skin: Normal Respiratory: normal chest rise Abdomen: Soft, non-tender, non-distended, no masses palpable, no hepatosplenomegaly, normal bowel sounds Genitourinary: Stage 3 cystocele, weak pelvic floor muscles bilaterally MSK: Back is non-tender Extremities: No clubbing, cyanosis, or edema Latest Ref Rng 02/25/2025 GLUCOSE UA (POCT) Negative mg/dL Negative BILIRUBIN UA (POCT) Negative Negative KETONE UA (POCT) Negative mg/dL Negative SPECIFIC GRAVITY UA (POCT) 1.005 - 1.030 1.015 HEMOGLOBIN/BLOOD UA (POCT) Negative Negative PH UA (POCT) 4.5 - 8.0 7.5 PROTEIN UA (POCT) Negative mg/dL Negative UROBILINOGEN UA (POCT) Normal E.U./dL 0.2 NITRITE UA (POCT) Negative Negative LEUKOCYTES UA (POCT) Negative Small ! COLOR UA (POCT) Yellow CLARITY UA (POCT) Clear 1. Nocturia (R35.1) -stop fluids 3 hours prior to bed -start trospium 20 mg po prior to bed -PVR 0 cc 2. POP-Q stage 3 cystocele (N81.10) - Nocturia likely secondary to stage 3 cystocele observed during pelvic examination. Pelvic floor muscles noted to be weak. Educated on Kegel exercises to strengthen pelvic floor muscles. Initiated Trospium once daily in the evening to manage nocturia. Discussed potential use of a pessary to support the bladder; provided informational material. Follow-up in four weeks to assess efficacy of medication and discuss further management options if necessary. 3. Screening for genitourinary condition (Z13.89) - Pelvic examination performed to assess for prolapse and evaluate pelvic floor muscle strength. No evidence of urinary retention; bladder is empty. No signs of hydronephrosis, renal calculi, or obstructions on recent CT scan. 4. Stage 3 chronic kidney disease, unspecified whether stage 3a or 3b CKD (HCC) (N18.30) - CKD stage 3 remains stable with no progression noted. Recent laboratory results from December confirm stable renal function. No evidence of hydronephrosis, renal calculi, or obstructions on recent CT scan. 5. Nonintractable headache, unspecified lunchroom aide (more content not included)... Normal [facility] UA DIP, URINE (POC)on 2024 BILIRUBIN UA (POCT) Negative Negative [facility] CLARITY UA (POCT) Clear [facility] COLOR UA (POCT) Yellow [facility] GLUCOSE UA (POCT) Negative Negative mg/dL [facility] Hemoglobin Ql (U) Negative Negative [facility] Interpretation and review of laboratory results Abnormal [facility] KETONE UA (POCT) Negative Negative mg/dL [facility] LEUKOCYTES UA (POCT) Small Abnormal Negative [facility] NITRITE UA (POCT) Negative [facility] PH UA (POCT) 7.5 4.5 - 8.0 [facility] Protein Ql (U) Negative Negative mg/dL [facility] SPECIFIC GRAVITY UA (POCT) 1.015 1.005 - 1.030 [facility] UROBILINOGEN UA (POCT) 0.2 Normal E.U./dL [facility] Location:[facility], [address] [place], [address] [facility] POINT [facility] CARE [facility] CNOVon 02-21-2025 CNOV Office Visit (FAMPWS ) TASHIA FERNANDEZ ([id number]) 1950 F Date Time Provider Department 02/21/25 11:20 AM ELIZABETH OG During your visit today, we recorded the following information about you: Temperature Pulse Respiration Blood pressure 97.4 degrees 62/minute 18/minute 140/82 Weight 78.8 kg Elizabeth Og APRN.CNP 02/21/2025 1:31 PM Signed 02/21/2025 Patient presents with: Pain: Head, neck and right arm radiating to elbow x7 days SUBJECTIVE: This is a 74 year old that is here today for Above Complaints. ONSET: seven days LOCATION: posterior head into neck and right arm and over top of head DURATION: constant CHARACTERISTICS: sharp AGGRAVATING FEATURES: nothing ALLEVIATING FEATURES: tylenol, pain cream, heating pad Years ago cartons at worked dropped on her head Admits to a little dizziness when she first wakes up in the morning which doesn't last long Denies past surgery, vision changes, syncope, extremity numbness, tingling, weakness, slurred speech, or facial drooping. PAST MEDICAL HISTORY Diagnosis Date Contact dermatitis and other eczema Degenerative arthritis of knee 05/24/2011 Delayed gastric emptying 07/24/2012 Diabetes mellitus type II (HCC) 05/31/2024 Diarrhea Diverticulitis Diverticulosis of colon (without mention of hemorrhage) Diverticulosis Dysphagia, unspecified 08/29/2017 Elevated alkaline phosphatase level 07/12/2018 Essential hypertension, benign GERD (gastroesophageal reflux disease) Hyperlipidemia Hypokalemia 09/25/2012 Hyponatremia Hypothyroidism Impaired fasting glucose 11/19/2015 Inadequate pelvic muscles 01/17/2012 Lumbar disc disease with radiculopathy 09/01/2016 Lung nodule < 6cm on CT 10/15/2018 10/07/18: incidental 4.5 mm nodule RML thyrotoxicosis Nonrheumatic mitral (valve) insufficiency Obesity Other osteoporosis 12/21/2006 Pancreatitis Paroxysmal SVT (supraventricular tachycardia) ([facility]) Personal history of colonic polyps Colon polyps POLYP STOMACH 07/13/2007 Stage 3a chronic kidney disease (HCC) Statin intolerance 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 labetalol (TRANDATE) 200 mg tablet Take 1 tablet by mouth two times a day. losartan (COZAAR) 100 mg tablet Take 1 tablet by mouth once daily. gabapentin (NEURONTIN) 300 mg capsule Take 1 capsule by mouth daily at bedtime for 90 days. blood sugar diagnostic (BLOOD GLUCOSE TEST) test strip Test blood sugar(s) 1 times daily. Dx: Prediabetes Insulin: No Lancets Test blood sugar(s) 1 times daily. Dx: Prediabetes Insulin: No rosuvastatin (CRESTOR) 20 mg tablet Take 1 tablet by mouth daily at bedtime. diphenhydrAMINE (BENADRYL) 25 mg tablet Take 25 mg by mouth at bedtime as needed. OTC PRODUCT Take 1 tablet by mouth once daily. Prevagen alendronate (FOSAMAX) 70 mg tablet Take 1 tablet by mouth one time a week. In AM with cup of water on empty stomach. Nothing else by mouth and stay upright for 30 min. levothyroxine (SYNTHROID) 88 mcg tablet Take one tablet daily Monday-Monday and two tablets on Monday amLODIPine (NORVASC) 2.5 mg tablet Take one tablet daily in addition to 5 mg to equal 7.5 mg daily amLODIPine (NORVASC) 5 mg tablet Take 1 tablet by mouth once daily. pantoprazole DR (PROTONIX) 40 mg tablet Take 1 tablet by mouth once daily. potassium chloride ER (KLOR-CON) 20 mEq tablet Take 2 tablets by mouth two times a day. meclizine (ANTIVERT) 25 mg tab Take 1 tablet by mouth three times a day as needed (vertigo). polyethylene glycol 3350 17 gram/dose powder Take 17 g by mouth once daily. Dissolve dose in 4 - 8 ounces of liquid and take as directed. doxylamine succinate (SLEEP AID ORAL) Take by mouth daily at bedtime. calcium carbonate-Vit D3-minerals (CALTRATE) 600 mg calcium- 400 unit tab Take 2 tablets by mouth once daily. ondansetron orally disintegrating (ZOFRAN ODT) 4 mg disintegrating tablet Take 1 tablet by mouth every 6 hours as needed for Nausea/Vomiting. 0.9 % sodium chloride (NACL 0.9%) 0.9% solp Infuse 500 ml IV over [address] Biotin 2,500 mcg cap Take 1 capsule by mouth once daily. aspirin, enteric coated (ASPIRIN, ENTERIC COATED) 81 mg EC tablet Take 81 mg by mouth once daily. No current facility-administered medications for this visit. Medications and allergies reviewed by this provider. SOCIAL HISTORY Social History Tobacco Use Smoking status (more content not included)... Normal [facility] CT ABD/PEL W IVCONon 01-21- 025 CT ABD/PEL W IVCON * * *Final Report* * * DATE OF EXAM: Jan 21 2025 2:38PM [facility] 0530 - CT ABD/PEL W IVCON / PROCEDURE REASON: multiple diagnoses * * * * Physician Interpretation * * * * EXAMINATION: CT ABDOMEN AND PELVIS WITH IV CONTRAST CLINICAL HISTORY: . Umbilical abdominal pain TECHNIQUE: CT of the abdomen and pelvis was performed using standard technique, scanning from just above the dome of the diaphragm to the symphysis pubis. MQ: CTAP_3 Contrast: IV: 100 ml of Omnipaque 350 Oral: 10 ml of Omni 240 10-25ml diluted with water CT Radiation dose: Integrated Dose-length product (DLP) for this visit = 624 mGy*cm. CT Dose Reduction Employed: Automated exposure control(AEC) and iterative recon COMPARISON: 12/16/2020, 11/07/2013 RESULT: Liver: No mass. Biliary: No bile duct dilation. Gallbladder is absent. Spleen: Multiple splenic granulomata. No mass. No splenomegaly. Pancreas: No mass or duct dilation. Adrenals: No mass. Kidneys: No mass, calculus or hydronephrosis. GI tract: No dilation or wall thickening. Normal appendix. Diverticulosis without diverticulitis. Lymph nodes: No abdominal or pelvic lymphadenopathy. Mesentery/Peritoneum: No ascites or mass. Retroperitoneum: No mass. Vasculature: - Abdominal aorta and iliac arteries: Atherosclerotic calcifications without aneurysm. - Celiac and SMA: Atherosclerotic calcifications at the origins. - Portal venous system (SMV, splenic vein, portal vein and branches): Patent. - Hepatic veins: Patent. Pelvis: No mass, ascites or fluid collection. Pelvic organ prolapse Bones/Soft Tissues: * Degenerative changes. * Small umbilical hernia containing fat. Lower thorax: Unremarkable. Localizer images: No additional findings. IMPRESSION: No acute findings in the abdomen or pelvis. Normal appendix. Diverticulosis without diverticulitis. Small umbilical hernia containing fat. [employer] Drink Cart Operator: PSCB Transcribe Date/Time: Jan 23 2025 8:40P Dictated by : JAMMIE SÁNCHEZ MD This examination was interpreted and the report reviewed and electronically signed by: JAMMIE SÁNCHEZ MD on Jan 23 2025 8:43PM EST [id number] Normal [facility] CBC W Auto Differential pane l (Bld)on 01-10-2025 Basophils (Bld) [#/Vol] 0.10 10*3/uL Normal <0.11 [facility] Comment on above: Order Comment: Speci men Type: BLOOD SPECIMEN Ordering Facility: [facility] Address: [address] [place] [address] Performed By: #### 5 7021-8 #### [facility] CLIA [id number] [address] [place] [address] [place] Basophils/100 WBC (Bld) 1.2 % Normal [facility] Comment on above: Order Comment: Speci men Type: BLOOD SPECIMEN Ordering Facility: [facility] Address: [address] [place] [address] Performed By: #### 5 7021-8 #### [facility] CLIA [id number] [address] [place] [address] [place] Differential cell count method Nom (Bld) Auto Normal [facility] Comment on above: Order Comment: Speci men Type: BLOOD SPECIMEN Ordering Facility: [facility] Address: [address] [place] [address] Performed By: #### 5 7021-8 #### [facility] CLIA [id number] [address] [place] [address] [place] Eosinophils (Bld) [#/Vol] 0.20 10*3/uL Normal <0.46 [facility] Comment on above: Order Comment: Speci men Type: BLOOD SPECIMEN Ordering Facility: [facility] Address: [address] [place] [address] Performed By: #### 5 7021-8 #### [facility] CLIA [id number] [address] [place] [address] [place] Eosinophils/100 WBC (Bld) 2.3 % Normal [facility] Comment on above: Order Comment: Speci men Type: BLOOD SPECIMEN Ordering Facility: [facility] Address: [address] [place] [address] Performed By: #### 5 7021-8 #### [facility] CLIA [id number] [address] [place] [address] [place] Erythrocyte distribution width (RBC) [Ratio] 13.1 % Normal 11.5-15.0 [facility] Comment on above: Order Comment: Speci men Type: BLOOD SPECIMEN Ordering Facility: [facility] Address: [address] [place] [address] Performed By: #### 5 7021-8 #### [facility] CLIA [id number] [address] [place] [address] [place] Hematocrit (Bld) [Volume fraction] 38.4 % Normal 36.0-46.0 [facility] Comment on above: Order Comment: Speci men Type: BLOOD SPECIMEN Ordering Facility: [facility] Address: [address] [place] [address] Performed By: #### 5 7021-8 #### [facility] CLIA [id number] [address] [place] [address] [place] Hemoglobin (Bld) [Mass/Vol] 12.6 g/dL Normal 11.5-15.5 [facility] Comment on above: Order Comment: Speci men Type: BLOOD SPECIMEN Ordering Facility: [facility] Address: [address] [place] [address] Performed By: #### 5 7021-8 #### [facility] CLIA [id number] [address] [place] [address] [place] Immature granulocytes (Bld) [#/Vol] 10*3/uL Normal <0.10 [facility] Comment on above: Order Comment: Speci men Type: BLOOD SPECIMEN Ordering Facility: [facility] Address: [address] [place] [address] Performed By: #### 5 7021-8 #### [facility] CLIA [id number] [address] [place] [address] [place] Immature granulocytes/100 WBC (Bld) 0.2 % Normal [facility] Comment on above: Order Comment: Speci men Type: BLOOD SPECIMEN Ordering Facility: [facility] Address: [address] [place] [address] Performed By: #### 5 7021-8 #### [facility] CLIA [id number] [address] [place] [address] [place] Lymphocytes (Bld) [#/Vol] 1.91 10*3/uL Normal 1.00-4.00 [facility] Comment on above: Order Comment: Speci men Type: BLOOD SPECIMEN Ordering Facility: [facility] Address: [address] [place] [address] Performed By: #### 5 7021-8 #### [facility] CLIA [id number] [address] [place] [address] [place] Lymphocytes/100 WBC (Bld) 22.0 % Normal [facility] Comment on above: Order Comment: Speci men Type: BLOOD SPECIMEN Ordering Facility: [facility] Address: [address] [place] [address] Performed By: #### 5 7021-8 #### [facility] CLIA [id number] [address] [place] [address] [place] MCH (RBC) [Entitic mass] 28.4 pg Normal 26.0-34.0 [facility] Comment on above: Order Comment: Speci men Type: BLOOD SPECIMEN Ordering Facility: [facility] Address: [address] [place] [address] Performed By: #### 5 7021-8 #### [facility] CLIA [id number] [address] [place] [address] [place] MCHC (RBC) [Mass/Vol] 32.8 g/dL Normal 30.5-36.0 [facility] Comment on above: Order Comment: Speci men Type: BLOOD SPECIMEN Ordering Facility: [facility] Address: [address] [place] [address] Performed By: #### 5 7021-8 #### [id number] [address] [place] [address] [place] MCV (RBC) [Entitic vol] 86.7 fL Normal 80.0-100.0 [facility] Comment on above: Order Comment: Speci men Type: BLOOD SPECIMEN Ordering Facility: [facility] Address: [address] [place] [address] Performed By: #### 5 7021-8 #### [facility] [id number] [address] [place] [address] [place] Monocytes (Bld) [#/Vol] 0.83 10*3/uL Normal <0.87 [facility] Comment on above: Order Comment: Speci men Type: BLOOD SPECIMEN Ordering Facility: [facility] Address: [address] [place] [address] Performed By: #### 5 7021-8 #### [facility] [id number] [address] [place] [address] [place] Monocytes/100 WBC (Bld) 9.6 % Normal [facility] Comment on above: Order Comment: Speci men Type: BLOOD SPECIMEN Ordering Facility: [facility] Address: [address] [place] [address] Performed By: #### 5 7021-8 #### [facility] CLIA [id number] [address] [place] [address] [place] Neutrophils (Bld) [#/Vol] 5.62 10*3/uL Normal 1.45-7.50 [facility] Comment on above: Order Comment: Speci men Type: BLOOD SPECIMEN Ordering Facility: [facility] Address: [address] [place] [address] Performed By: #### 5 7021-8 #### [facility] CLIA [id number] [address] [place] [address] [place] Neutrophils/100 WBC (Bld) 64.7 % Normal [facility] Comment on above: Order Comment: Speci men Type: BLOOD SPECIMEN Ordering Facility: [facility] Address: [address] [place] [address] Performed By: #### 5 7021-8 #### [facility] CLIA [id number] [address] [place] [address] [place] Nucleated RBC (Bld) [#/Vol] 10*3/uL Normal <0.01 [facility] Comment on above: Order Comment: Speci men Type: BLOOD SPECIMEN Ordering Facility: [facility] Address: [address] [place] [address] Performed By: #### 5 7021-8 #### [facility] CLIA [id number] [address] [place] [address] [place] Nucleated RBC/100 WBC (Bld) [Ratio] 0.0 /100 WBC Normal [facility] Comment on above: Order Comment: Speci men Type: BLOOD SPECIMEN Ordering Facility: [facility] Address: [address] [place] [address] Performed By: #### 5 7021-8 #### [facility] CLIA [id number] [address] [place] [address] [place] Platelet mean volume (Bld) [Entitic vol] 9.1 fL Normal 9.0-12.7 [facility] Comment on above: Order Comment: Speci men Type: BLOOD SPECIMEN Ordering Facility: [facility] Address: [address] [place] [address] Performed By: #### 5 7021-8 #### [facility] CLIA [id number] [address] [place] [address] [place] Platelets (Bld) [#/Vol] 289 10*3/uL Normal 150-400 [facility] Comment on above: Order Comment: Speci men Type: BLOOD SPECIMEN Ordering Facility: [facility] Address: [address] [place], [place] [address] Performed By: #### 5 7021-8 #### [facility] CLIA [id number] [address] [place] [address] [place] RBC (Bld) [#/Vol] 4.43 10*6/uL Normal 3.90-5.20 [facility] Comment on above: Order Comment: Speci men Type: BLOOD SPECIMEN Ordering Facility: [facility] Address: [address] [place] [address] Performed By: #### 5 7021-8 #### [facility] CLIA [id number] [address] [place] [address] [place] WBC (Bld) [#/Vol] 8.68 10*3/uL Normal 3.70-11.00 [facility] Comment on above: Order Comment: Speci men Type: BLOOD SPECIMEN Ordering Facility: [facility] Address: [address] [place] [address] Performed By: #### 5 7021-8 #### [facility] DESTINI [id number] [address] [place] [address] [place] CNOVon 01-07-2025 CNOV Office Visit ([facility] ) MARCO A,TASHIA Costello ([id number]) 1950 F Date Time Provider Department 01/07/25 1:40 PM ELIZABETH OG During your visit today, we recorded the following information about you: Pulse Respiration Blood pressure Weight 72/minute 18/minute 144/74 79.3 kg Elizabeth Og APRN.CASH ACCOUNTING CLERK 01/07/2025 2:38 PM Signed 01/07/2025 Patient presents with: Abdominal Pain: Lower abdominal pain and increased urination at night. Lower back pain as well. SUBJECTIVE: This is a 74 year old that is here today for Above Complaints. For awhile has had lower abdominal pain. Described as sharp. Pain is intermittent Can be aggravated by eating but not all the time.Urinating a lot at night but recent urine culture was normal. She believes she has infection due to her stools are yellow. Admits to diarrhea and constipation at times. Last BM this AM was her normal consistency. Reports years ago she was supposed to have part of her intestines removed due to diverticulitis but surgery was not able to be completed due to she was unable to get cleaned out all the way. Denies weight loss, fevers, chills, nausea, vomiting, melana, hematochezia, dysuria or hematuria PAST MEDICAL HISTORY Diagnosis Date Contact dermatitis and other eczema Degenerative arthritis of knee 05/24/2011 Delayed gastric emptying 07/24/2012 Diabetes mellitus type II (HCC) 05/31/2024 Diarrhea Diverticulitis Diverticulosis of colon (without mention of hemorrhage) Diverticulosis Dysphagia, unspecified 08/29/2017 Elevated alkaline phosphatase level 07/12/2018 Essential hypertension, benign GERD (gastroesophageal reflux disease) Hyperlipidemia Hypokalemia 09/25/2012 Hyponatremia Hypothyroidism Impaired fasting glucose 11/19/2015 Inadequate pelvic muscles 01/17/2012 Lumbar disc disease with radiculopathy 09/01/2016 Lung nodule < 6cm on CT 10/15/2018 10/07/18: incidental 4.5 mm nodule RML thyrotoxicosis Nonrheumatic mitral (valve) insufficiency Obesity Other osteoporosis 12/21/2006 Pancreatitis Paroxysmal SVT (supraventricular tachycardia) (HCC) Personal history of colonic polyps Colon polyps POLYP STOMACH 07/13/2007 Stage 3a chronic kidney disease (HCC) Statin intolerance 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--surgery not needed (2015) Trigeminal neuralgia 10/11/2011 Trochanteric bursitis of left hip 07/24/2012 Unspecified hemorrhoids without mention of complication Hemorrhoids ALLERGIES Lipitor [Atorvastatin Calcium], Spironolactone, Aceon [Perindopril Erbumine], Codeine, and Lisinopril MEDICATIONS Current Outpatient Medications Medication Sig rosuvastatin (CRESTOR) 20 mg tablet Take 1 tablet by mouth daily at bedtime. diphenhydrAMINE (BENADRYL) 25 mg tablet Take 25 mg by mouth at bedtime as needed. OTC PRODUCT Take 1 tablet by mouth once daily. Prevagen alendronate (FOSAMAX) 70 mg tablet Take 1 tablet by mouth one time a week. In AM with cup of water on empty stomach. Nothing else by mouth and stay upright for 30 min. gabapentin (NEURONTIN) 300 mg capsule Take 1 capsule by mouth daily at bedtime for 90 days. levothyroxine (SYNTHROID) 88 mcg tablet Take one tablet daily Monday-Monday and two tablets on Monday amLODIPine (NORVASC) 2.5 mg tablet Take one tablet daily in addition to 5 mg to equal 7.5 mg daily amLODIPine (NORVASC) 5 mg tablet Take 1 tablet by mouth once daily. pantoprazole DR (PROTONIX) 40 mg tablet Take 1 tablet by mouth once daily. labetalol (TRANDATE) 200 mg tablet Take 1 tablet by mouth two times a day. isosorbide mononitrate ER (IMDUR) 30 mg 24 hr tablet Take 1 tablet by mouth once daily. potassium chloride ER (KLOR-CON) 20 mEq tablet Take 2 tablets by mouth two times a day. meclizine (ANTIVERT) 25 mg tab Take 1 tablet by mouth three times a day as needed (vertigo). blood sugar diagnostic (BLOOD GLUCOSE TEST) test strip Test blood sugar(s) 1 times daily. Dx: Prediabetes Insulin: No Lancets lancets Test blood sugar(s) 1 times daily. Dx: Prediabetes Insulin: No losartan (COZAAR) 100 mg tablet Take 1 tablet by mouth once daily. polyethylene glycol 3350 17 gram/dose powder Take 17 g by mouth once daily. Dissolve dose in 4 - 8 ounces of liquid and take as directed. doxylamine succinate (SLEEP AID ORAL) Take by mouth daily at bedtime. calcium carbonate-Vit D3-minerals (CALTRATE) 600 mg calcium- 400 unit tab Take 2 tablets by mouth once daily. ondansetron orally disintegrating (ZOFRAN ODT) 4 mg disintegrating tablet Take 1 tablet by mouth every 6 hours as needed for Nausea/Vomiting. 0.9 % sodium chloride (NACL 0.9%) 0.9% solp Infuse 500 ml IV over [address] Biotin 2,500 mcg cap Take 1 capsule by mouth once daily. aspirin, enteric coated (ASPIRIN, ENTERIC COATED) 81 mg EC tablet Take 81 mg by mouth once daily. No current f (more content not included)... [facility]I [facility] ([facility]) TASHIA FERNANDEZ ([id number]) 1950 F Date Time Provider Department 01/07/25 ELIZABETH OG During your visit today, we recorded the following information about you: Elizabeth Og APRN.CONSTANTINO 01/07/2025 2:37 PM Signed Patient needs to have CBC with diff completed. I thought she had just completed one but she hasn't. Order placed Elizabeth Og APRN.Vangie Mckinney LPN 01/07/2025 4:29 PM Signed Telephone call placed to patient. Message left to call office back for update. EYAL Braga Krystle, RN 01/08/2025 4:58 PM Signed Patient calls in and provider message reviewed with verbalized understanding. Sandy Ruff RN Allergies As of Date: 01/07/2025 Noted Allergy Reaction LIPITOR (ATORVASTATIN CALCIUM) 10/21/2014 14 - Other: See Comments Comments: muscle cramps SPIRONOLACTONE 03/21/2014 14 - Other: See Comments Comments: headache ACEON (PERINDOPRIL ERBUMINE) 11/02/2005 2 - Rash 3 - Cough CODEINE 12/09/2009 5 - Intolerance Comments: Chest pain LISINOPRIL 10/07/2005 3 - Cough Comments: dry hacking cough Date Reviewed: 01/07/2025 Reviewed by: Vangie Gonzalez LPN - Fully Assessed Reason for Visit: Patient Update [1234] Prescriptions as of 01/08/2025 - gabapentin (NEURONTIN) 300 mg capsule Take 1 capsule by mouth daily at bedtime for 90 days. - blood sugar diagnostic (BLOOD GLUCOSE TEST) test strip Test blood sugar(s) 1 times daily. Dx: Prediabetes Insulin: No - Lancets Test blood sugar(s) 1 times daily. Dx: Prediabetes Insulin: No - iv contrast (will be provided with radiology test) CT ABD/PEL -Inject, intravenously, once for 1 dose.No IV [...] in the CT contrast administration guidelines link. - enteric contrast (will be provided with radiology test) For CT ABD/PEL W IVCON Routine order Administer, As Directed One Time Only, via Oral, Rectal, both Oral and Rectal, Enteric Tube, Stoma or Indwelling Catheter, Enteric Contrast as designated per enteric contrast guidelines - rosuvastatin (CRESTOR) 20 mg tablet Take 1 tablet by mouth daily at bedtime. - diphenhydrAMINE (BENADRYL) 25 mg tablet Take 25 mg by mouth at bedtime as needed. - OTC PRODUCT Take 1 tablet by mouth once daily. Prevagen - alendronate (FOSAMAX) 70 mg tablet Take 1 tablet by mouth one time a week. In AM with cup of water on empty stomach. Nothing else by mouth and stay upright for 30 min. - levothyroxine (SYNTHROID) 88 mcg tablet Take one tablet daily Monday-Monday and two tablets on Monday - amLODIPine (NORVASC) 2.5 mg tablet Take one tablet daily in addition to 5 mg to equal 7.5 mg daily - amLODIPine (NORVASC) 5 mg tablet Take 1 tablet by mouth once daily. - pantoprazole DR (PROTONIX) 40 mg tablet Take 1 tablet by mouth once daily. - labetalol (TRANDATE) 200 mg tablet Take 1 tablet by mouth two times a day. - isosorbide mononitrate ER (IMDUR) 30 mg 24 hr tablet Take 1 tablet by mouth once daily. - potassium chloride ER (KLOR-CON) 20 mEq tablet Take 2 tablets by mouth two times a day. - meclizine (ANTIVERT) 25 mg tab Take 1 tablet by mouth three times a day as needed (vertigo). - losartan (COZAAR) 100 mg tablet Take 1 tablet by mouth once daily. - polyethylene glycol 3350 17 gram/dose powder Take 17 g by mouth once daily. Dissolve dose in 4 - 8 ounces of liquid and take as directed. - doxylamine succinate (SLEEP AID ORAL) Take by mouth daily at bedtime. - calcium carbonate-Vit D3-minerals (CALTRATE) 600 mg calcium- 400 unit tab Take 2 tablets by mouth once daily. - ondansetron orally disintegrating (ZOFRAN ODT) 4 mg disintegrating tablet Take 1 tablet by mouth every 6 hours as needed for Nausea/Vomiting. - 0.9 % sodium chloride (NACL 0.9%) 0.9% solp Infuse 500 ml IV over [address] - Biotin 2,500 mcg cap Take 1 capsule by mouth once daily. - aspirin, enteric coated (ASPIRIN, ENTERIC COATED) 81 mg EC tablet Take 81 mg by mouth once daily. Meds Comments as of 01/03/2017: Biotin Problem List As Of Date 01/07/2025 Noted Resolved Primary hypertension [I10] Personal history of colonic polyps [Z86.0100] 06/02/2021 Postablative hypothyroidism [E89.0] 10/10/2005 Osteoporosis [M81.0] 01/16/2007 GASTRITIS ANTRAL( W/O Hemorrhage) [K29.60] 07/13/2007 11/02/2015 POLYP STOMACH [D13.1] 07/13/2007 12/19/2019 CERVICAL DISC DEGEN [M50.30] 02/11/2009 Degenerative arthritis of knee [M17.9] 05/24/2011 Trigeminal neuralgia [G50.0] 10/11/2011 Inadequate pelvic muscles [R29.898] 01/17/2012 Mixed stres (more content not included)... Normal [facility] Bacteria Ur Culton 5 Bacteria identified Cx Nom (U) ORGANISM ID: 1 >=100,000 CFU/ml Normal urogenital robina Normal [facility] Comment on above: Performed By: #### 6 30-4 ####[facility] [id number] [address] CNPNon 01-01-2025 C[facility] TASHIA FERNANDEZ ([id number]) 1950 F Date Time Provider Department 01/01/25 ELISA STARR [facility] During your visit today, we recorded the following information about you: Elisa Starr MD 01/01/2025 9:30 AM Signed Received following message about patient's urine culture: Please recollect and place a new order for URCUL, if clinically indicated. The specimen was inadvertently collected incorrectly. Thank you. If any questions, please contact Laboratory Customer Services. Please notify patient she needs to come in to have the re-done. Anusha Frey, RN 01/01/2025 9:37 AM Signed Pt called and is notified of providers message and instructions. Pt voices understanding. Anusha Frey RN Allergies As of Date: 01/01/2025 Noted Allergy Reaction LIPITOR (ATORVASTATIN CALCIUM) 10/21/2014 14 - Other: See Comments Comments: muscle cramps SPIRONOLACTONE 03/21/2014 14 - Other: See Comments Comments: headache ACEON (PERINDOPRIL ERBUMINE) 11/02/2005 2 - Rash 3 - Cough CODEINE 12/09/2009 5 - Intolerance Comments: Chest pain LISINOPRIL 10/07/2005 3 - Cough Comments: dry hacking cough Date Reviewed: 12/27/2024 Reviewed by: Mis Hylton LPN - Fully Assessed Reason for Visit: Patient Update [1234] Primary Visit Diagnosis:Nocturia [R35.1] Order(s):BACTERIAL CULTURE, URINE [SQURCUL] Order #: [id number] FUTURE Prescriptions as of 01/01/2025 - diphenhydrAMINE (BENADRYL) 25 mg tablet Take 25 mg by mouth at bedtime as needed. - OTC PRODUCT Take 1 tablet by mouth once daily. Prevagen - alendronate (FOSAMAX) 70 mg tablet Take 1 tablet by mouth one time a week. In AM with cup of water on empty stomach. Nothing else by mouth and stay upright for 30 min. - gabapentin (NEURONTIN) 300 mg capsule Take 1 capsule by mouth daily at bedtime for 90 days. - levothyroxine (SYNTHROID) 88 mcg tablet Take one tablet daily Monday-Monday and two tablets on Monday - amLODIPine (NORVASC) 2.5 mg tablet Take one tablet daily in addition to 5 mg to equal 7.5 mg daily - amLODIPine (NORVASC) 5 mg tablet Take 1 tablet by mouth once daily. - pantoprazole DR (PROTONIX) 40 mg tablet Take 1 tablet by mouth once daily. - labetalol (TRANDATE) 200 mg tablet Take 1 tablet by mouth two times a day. - isosorbide mononitrate ER (IMDUR) 30 mg 24 hr tablet Take 1 tablet by mouth once daily. - potassium chloride ER (KLOR-CON) 20 mEq tablet Take 2 tablets by mouth two times a day. - meclizine (ANTIVERT) 25 mg tab Take 1 tablet by mouth three times a day as needed (vertigo). - blood sugar diagnostic (BLOOD GLUCOSE TEST) test strip Test blood sugar(s) 1 times daily. Dx: Prediabetes Insulin: No - Lancets lancets Test blood sugar(s) 1 times daily. Dx: Prediabetes Insulin: No - losartan (COZAAR) 100 mg tablet Take 1 tablet by mouth once daily. - polyethylene glycol 3350 17 gram/dose powder Take 17 g by mouth once daily. Dissolve dose in 4 - 8 ounces of liquid and take as directed. - doxylamine succinate (SLEEP AID ORAL) Take by mouth daily at bedtime. - calcium carbonate-Vit D3-minerals (CALTRATE) 600 mg calcium- 400 unit tab Take 2 tablets by mouth once daily. - ondansetron orally disintegrating (ZOFRAN ODT) 4 mg disintegrating tablet Take 1 tablet by mouth every 6 hours as needed for Nausea/Vomiting. - 0.9 % sodium chloride (NACL 0.9%) 0.9% solp Infuse 500 ml IV over [address] - Biotin 2,500 mcg cap Take 1 capsule by mouth once daily. - aspirin, enteric coated (ASPIRIN, ENTERIC COATED) 81 mg EC tablet Take 81 mg by mouth once daily. Meds Comments as of 01/03/2017: Biotin Problem List As Of Date 01/01/2025 Noted Resolved Primary hypertension [I10] Personal history of colonic polyps [Z86.0100] 06/02/2021 Postablative hypothyroidism [E89.0] 10/10/2005 Osteoporosis [M81.0] 01/16/2007 GASTRITIS ANTRAL( W/O Hemorrhage) [K29.60] 07/13/2007 11/02/2015 POLYP STOMACH [D13.1] 07/13/2007 12/19/2019 CERVICAL DISC DEGEN [M50.30] 02/11/2009 Degenerative arthritis of knee [M17.9] 05/24/2011 Trigeminal neuralgia [G50.0] 10/11/2011 Inadequate pelvic muscles [R29.898] 01/17/2012 Mixed stress and urge urinary incontinence [N39*02/03/2012 Uterine prolapse [N81.4] 02/03/2012 Cystocele, midline [N81.11] 02/03/2012 Gastroesophageal reflux disease [K21.9] 06/01/2012 Delayed gastric emptying [K30] 07/24/2012 Trochanteric bursitis of left hip [M70.62] 07/24/2012 10/15/2018 Chronic hypokalemia [E87.6] 09/25/2012 Thoracic radiculopathy due to degenerative join*06/09/2014 Tethered spinal cord (HCC) [Q06.8] 11/20/2014 Abdominal pain [R10.9] 11/20/2014 09/01/2016 Poor sleep hygiene [Z72.821] 11/02/2015 Impaired fasting glucose [R73.01] 11/19/2015 Lumbar disc disease with radiculopathy [M51.16] 09/01/2016 Venous insufficiency (chronic) (peripheral) [I8*01/03/2017 Es (more content not included)... Normal [facility] Lipid 1996 panelon 5 Cholesterol [Mass/Vol] 172 mg/dL Normal <200 [facility] Comment on above: Order Comment: Speci men Type: BLOOD SPECIMEN Ordering Facility: [facility] Address: [address] [place] [address] Result Comment: <200 mg/dL, Desirable 200-239 mg/dL, Borderline high >239 mg/dL, High Performed By: #### 1 751-7, 22082-0, 2731-06 #### [facility] CLIA [id number] [address] [place] [address] [place] Cholesterol in HDL [Mass/Vol] 50 mg/dL Normal >39 [facility] Comment on above: Order Comment: Speci men Type: BLOOD SPECIMEN Ordering Facility: [facility] Address: [address] [place] [address] Result Comment: 40-5 9 mg/dL, Acceptable >59 mg/dL, High: Negative risk factor for coronary heart disease <40 mg/dL, Low: Positive risk factor for coronary heart disease Performed By: #### 1 751-7, 21472-6, 2731-06 #### [facility] CLIA [id number] [address] [place], [place] [address] [place] Cholesterol in LDL [Mass/Vol] 99 mg/dL Normal <100 [facility] Comment on above: Order Comment: [place] barlow Type: BLOOD SPECIMEN Ordering Facility: [facility] Address: [address] [place] [address] Result Comment: <100 mg/dL, Optimal 100-129 mg/dL, Near optimal/above optimal 130-159 mg/dL, Borderline high 160-189 mg/dL, High >189 mg/dL, Very high Secondary prevention optimal LDL Cholesterol levels are recommended to be < 70 mg/dL Performed By: #### 1 751-7, 69680-3, 2731-06 #### [facility] CLIA [id number] [address] [place], [place] [address] [place] [address] [place] Cholesterol in LDL/Cholesterol in HDL [Mass ratio] 1.98 {ratio} Normal <2.54 [facility] Comment on above: Order Comment: [place] barlow Type: BLOOD SPECIMEN Ordering Facility: [facility] Address: [address] [place] [address] Result Comment: Refe birgit: 1. National Cholesterol Education Program ATP III Guideline At-A-Glance Quick Desk Reference: National Heart, Lung, and Blood [place]. National Institutes of Health. 2001: NIH Publication No. 01-3305. 2. An International Atherosclerosis Society position paper: global recommendations for the management of dyslipidemia: executive summary, Atherosclerosis. 2014: 232(2):410-413. Performed By: #### 1 751-7, 86540-6, 2731-06 #### [facility] CLIA [id number] [address] [place], [place] [address] [place] [address] [place] Cholesterol in VLDL [Mass/Vol] 23 mg/dL Normal <30 [facility] Comment on above: Order Comment: [place] barlow Type: BLOOD SPECIMEN Ordering Facility: [facility] Address: [address] [place], [place] [address] Performed By: #### 1 751-7, 93784-8, 2731-06 #### [facility] CLIA [id number] [address] [place] [address] [place] Cholesterol non HDL [Mass/Vol] 122 mg/dL Normal <130 [facility] Comment on above: Order Comment: Speci men Type: BLOOD SPECIMEN Ordering Facility: [facility] Address: [address] [place] [address] Result Comment: <130 mg/dL, Optimal 130-159 mg/dL, Near optimal/above optimal 160-189 mg/dL, Borderline high 190-219 mg/dL, High >219 mg/dL, Very high Secondary prevention optimal non HDL Cholesterol levels are recommended to be <100 mg/dL Performed By: #### 1 751-7, 39133-2, 2731-06 #### [facility] CLIA [id number] [address] [place] [address] [place] Cholesterol.total/Ch olesterol in HDL [Mass ratio] 3.44 {ratio} Normal <5.10 [facility] Comment on above: Order Comment: Speci men Type: BLOOD SPECIMEN Ordering Facility: [facility] Address: [address] [place] [address] Performed By: #### 1 751-7, 67049-3, 2731-06 #### [facility] CLIA [id number] [address] [place] [address] [place] FASTING TIME 12 hrs Normal [facility] Comment on above: Order Comment: Speci men Type: BLOOD SPECIMEN Ordering Facility: [facility] Address: [address] [place] [address] Performed By: #### 1 751-7, 98870-8, 2731-06 #### [facility] CLIA [id number] [address] [place], [place] [address] [place] Triglyceride [Mass/Vol] 114 mg/dL Normal <150 [facility] Comment on above: Order Comment: Speci men Type: BLOOD SPECIMEN Ordering Facility: [facility] Address: [address] [place] [address] Result Comment: <150 mg/dL, Normal 150-199 mg/dL, Borderline high 200-499 mg/dL, High >499 mg/dL, Very high Performed By: #### 1 751-7, 26488-6, 2731-8 #### [facility] CLIA [id number] [address] [place] [address] [place] CNOVon 12-27-2024 CNOV Office Visit (FAMPWS ) TASHIA FERNANDEZ ([id number]) 1950 F Date Time Provider Department 12/27/24 9:40 AM [facility] During your visit today, we recorded the following information about you: Pulse Respiration Blood pressure Weight 78/minute 16/minute 124/68 78.5 kg Elisa Starr MD 01/16/2025 10:37 AM Addendum Chief Complaint Patient presents with: Follow Up: 6 month HPI Tashia Fernandez is a 74 year old female who presents here today for Above Complaints. Patient has been in good health without recent hospitalizations, ER visits, or falls. No concerns today. DIABETES MELLITUS: Ms. Fernandez was last seen 6 months ago. Since our last visit she denies excessive thirst or increased frequency of urination, numbness, tingling or pain in extremities, new or unusual visual symptoms, and low sugar/hypoglycemic reactions. Follows a diabetic diet generally not very much. Diet controlled. She reports checking her glucose on a once a day schedule with sugars in the fasting <130 range. Patient's last HgA1C was Hemoglobin A1C (%) Date Value 12/25/2024 6.2 05/29/2024 6.5 09/27/2019 6.2 03/22/2018 6.0 ) Last Ophthalmology exam was [address] Butler. Last Podiatry exam was within the past 12 months Sodium level is low on repeat labs. Patient states that she has not been urinating much during the day, but is peeing more at night. Going on for 2-3 years. Admits to urgency, flank pain. Denies dysuria, hematuria, suprapubic pain, nausea, vomiting, fever/chills, incontinence. CKD: stable on recent labs. Does not take NSAIDs and does eat low sodium diet. Past medical history, appointments, medications, allergies reviewed. Previous Medical History PAST MEDICAL HISTORY Diagnosis Date Contact dermatitis and other eczema Degenerative arthritis of knee 05/24/2011 Delayed gastric emptying 07/24/2012 Diabetes mellitus type II (HCC) 05/31/2024 Diarrhea Diverticulitis Diverticulosis of colon (without mention of hemorrhage) Diverticulosis Dysphagia, unspecified 08/29/2017 Elevated alkaline phosphatase level 07/12/2018 Essential hypertension, benign GERD (gastroesophageal reflux disease) Hyperlipidemia Hypokalemia 09/25/2012 Hypothyroidism Impaired fasting glucose 11/19/2015 Inadequate pelvic muscles 01/17/2012 Lumbar disc disease with radiculopathy 09/01/2016 Lung nodule < 6cm on CT 10/15/2018 10/07/18: incidental 4.5 mm nodule RML thyrotoxicosis Nonrheumatic mitral (valve) insufficiency Obesity Other osteoporosis 12/21/2006 Pancreatitis Paroxysmal SVT (supraventricular tachycardia) ([facility]) Personal history of colonic polyps Colon polyps POLYP STOMACH 07/13/2007 Stage 3a chronic kidney disease (HCC) Statin intolerance 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--surgery not needed (2015) Trigeminal neuralgia 10/11/2011 Trochanteric bursitis of left hip 07/24/2012 Unspecified hemorrhoids without mention of complication Hemorrhoids Previous Surgical History PAST SURGICAL HISTORY Procedure Laterality Date COLONOSCOPY FLX DX W/COLLJ SPEC WHEN PFRMD 12/2018 Colonoscopy COLONOSCOPY FLX DX W/COLLJ SPEC WHEN PFRMD 07/13/2007 Lax colon COLONOSCOPY FLX DX W/COLLJ SPEC WHEN PFRMD 03/26/2014 Colonoscopy COLONOSCOPY FLX DX W/COLLJ SPEC WHEN PFRMD 12/2018 [id number] 10 years COLONOSCOPY GEN ANES 04/28/2021 DECOMPRESSION PLANTAR DIGITAL NERVE 2000 heel spur/ plantar fasciitis repair Rt EGD 06/02/2021 EGD TRANSORAL BIOPSY SINGLE/MULTIPLE 07/13/2007 Gastritis, fundic gland polyps EGD W/O [facility] SPEC VARICIES INJ 01/03/2024 Dr. Kelley ESOPHAGOGASTRODUODENOSCOPY TRANSORAL DIAGNOSTIC 03/26/2014 EGD EYE SURGERY HX INCISE FINGER TENDON SHEATH Left 08/09/2024 Left ring trigger finger release LAPAROSCOPY SURG CHOLECYSTECTOMY Cholecystectomy, lap LIG/TRNSXJ FLP TUBE ABDL/VAG APPR UNI/BI LIGATE FALLOPIAN TUBE NEUROPLASTY AND/TRANSPOS MEDIAN NRV CARPAL TUNNE Carpal tunnel decomp bilateral OPEN REPAIR OF ROTATOR CUFF ACUTE 1992 Rotator cuff repair, right STRESS TEST,COMPLETE_*FL Family History FAMILY HISTORY Problem Relation Age of Onset Diabetes Mother Heart Mother Stroke Mother Hypertension Mother other (MVA) Father Hypertension Sister Heart Sister Hypertension Sister Heart Sister Hypertension Brother Heart Brother Hypertension Brother Cancer Brother Oral cancer Cancer Paternal Grandfather skin Breast Cancer Maternal Aunt Asthma No Family History Patient Allergies ALLERGIES Allergen Reactions Lipitor [Atorvastat* Other: See Comments muscle cramps Spironolactone Other: See Comments headache Aceon [Perindopril * Rash, Cough Codeine Intolerance Chest pain Lisinopril Cough dry hacking cough Current Medicatio (more content not included)... Normal [facility] OSMOLALITYon 12-27-2024 Osmolality [Osmolality] 281 mosm/kg [facility] OSMOLALITY URINEon 5 Osmolality (U) [Osmolality] 422 mosm/kg [facility] Osmolality (U) [Osmolality]o n 12-27-2024 Interpretation and review of laboratory results Normal [facility] Osmolality SerPlon 5 Osmolality [Osmolality] 281 mosm/kg Normal 275-300 [facility] Comment on above: Order Comment: Speci men Type: BLOOD SPECIMEN Ordering Facility: [facility] Address: [address] [place] [address] Performed By: #### 1 751-7, 30325-2, 2731-8 #### [facility] CLIA [id number] [address] [place] [address] [place] Osmolality Uron 12-27-2024 Osmolality (U) [Osmolality] 422 mosm/kg Normal 50-1200 [facility] Comment on above: Order Comment: Speci men Type: BLOOD SPECIMEN Ordering Facility: [facility] Address: [address] [place] [address] Performed By: #### 1 751-7, 02326-6, 2731-8 #### [facility] CLIA [id number] [address] [place] [address] [place] Osmolality [Osmolality]on Interpretation and review of laboratory results Normal [facility] SODIUM RANDOM URINEon 2024 Sodium Unsp time (U) [Moles/Vol] 34 mmol/L 14 - 216 mmol/L [facility] Sodium ?Tm Ur-sCncon 025 Sodium Unsp time (U) [Moles/Vol] 34 mmol/L Normal 14-216 [facility] Comment on above: Order Comment: Speci men Type: URINE SPECIMEN Ordering Facility: [facility] Address: [address] [place] [address] Performed By: #### 3 5678-2 #### [facility] CLIA [id number] [address] [place] [address] [place] Sodium Unsp time (U) [Moles/ Vol]on 12-27-2024 Interpretation and review of laboratory results Normal [facility] Urinalysis complete panel (U )on 12-27-2024 Bacteria uL 5283.9 uL High - 941 uL [facility] Bilirubin Ql (U) Negative Negative [facility] Clarity (Unsp spec) Clear Clear [facility] Color (U) Yellow Yellow [facility] Epithelial cells LM.HPF (Urine sed) [#/Area] Many /HPF [facility] Glucose Test strip (U) [Mass/Vol] Negative Negative [facility] Hemoglobin Ql (U) Negative Negative [facility] Hyaline casts (Urine sed) [#/Area] 1-3 /LPF Abnormal 0 /LPF [facility] Interpretation and review of laboratory results Abnormal [facility] Ketones Ql (U) Negative [facility] Leukocyte esterase Test strip Ql (U) 3+ Abnormal Negative [facility] Nitrite Ql (U) Negative Negative [facility] pH (U) 7.5 [pH] NINF - 8.5 [facility] Protein (U) [Mass/Vol] Trace Abnormal Negative [facility] RBC LM.HPF (Urine sed) [#/Area] 0-2 /HPF 0-2 /HPF [facility] Specific gravity (U) [Rel density] 1.015 1.005 - 1.030 [facility] Urobilinogen Ql (U) 0.2 EU/dL 0.2-1.0 EU/dL [facility] WBC LM.HPF (Urine sed) [#/Area] 0-5 /HPF 0-5 /HPF [facility] This test was develo ped and its performance characteristics determined by [facility] [place] ([facility]). It has not been cleared or approved by the FDA. [facility] is regulated under CLIA as qualified to perform high-complexity testing. This test is used for clinical purposes. It should not be regarded as investigational or for research. [facility] BACTERIA UL 5283.9 uL High Negative [facility] Comment on above: Order Comment: Speci men Type: BLOOD SPECIMEN Ordering Facility: [facility] Address: [address] [place] [address] Performed By: #### 1 751-7, , 2731-06 #### [facility] CLIA [id number] [address] [place] [address] [place] Bilirubin Ql (U) Negative Normal Negative [facility] Comment on above: Order Comment: Speci men Type: BLOOD SPECIMEN Ordering Facility: [facility] Address: [address] [place] [address] Performed By: #### 1 751-7, , 2731-06 #### [facility] CLIA [id number] [address] [place] [address] [place] Clarity (Unsp spec) Clear Normal Clear [facility] Comment on above: Order Comment: Speci men Type: BLOOD SPECIMEN Ordering Facility: [facility] Address: [address] [place] [address] Performed By: #### 1 751-7, 24794-5, 2731-06 #### [facility] CLIA [id number] [address] [place] [address] [place] Color (U) Yellow Normal Yellow [facility] Comment on above: Order Comment: Speci men Type: BLOOD SPECIMEN Ordering Facility: [facility] Address: [address] [place] [address] Performed By: #### 1 751-7, 20331-0, 2731-06 #### [facility] CLIA [id number] [address] [place] [address] [place] Epithelial cells LM.HPF (Urine sed) [#/Area] Many Normal [facility] Comment on above: Order Comment: Speci men Type: BLOOD SPECIMEN Ordering Facility: [facility] Address: [address] [place] [address] Performed By: #### 1 751-7, 97815-1, 2731-06 #### [facility] CLIA [id number] [address] [place] [address] [place] Glucose Test strip (U) [Mass/Vol] Negative Normal Negative [facility] Comment on above: Order Comment: Speci men Type: BLOOD SPECIMEN Ordering Facility: [facility] Address: [address] [place] [address] Performed By: #### 1 751-7, 98283-6, 2731-06 #### [facility] CLIA [id number] [address] [place] [address] [place] Hemoglobin Ql (U) Negative Normal Negative [facility] Comment on above: Order Comment: Speci men Type: BLOOD SPECIMEN Ordering Facility: [facility] Address: [address] [place] [address] Performed By: #### 1 751-7, 85441-6, 2731-06 #### [facility] CLIA [id number] [address] [place], [place] [address] [place] Hyaline casts (Urine sed) [#/Area] 1-3 /LPF Abnormal 0 /LPF [facility] Comment on above: Order Comment: Speci men Type: BLOOD SPECIMEN Ordering Facility: [facility] Address: [address] [place] [address] Performed By: #### 1 751-7, 46090-2, 2731-06 #### [facility] CLIA [id number] [address] [place], [place] [address] [place] Ketones Ql (U) Negative Normal Negative [facility] Comment on above: Order Comment: Speci men Type: BLOOD SPECIMEN Ordering Facility: [facility] Address: [address] [place] [address] Performed By: #### 1 751-7, 67917-0, 2731-06 #### [facility] CLIA [id number] [address] [place] [address] [place] Leukocyte esterase Test strip Ql (U) 3+ Abnormal Negative [facility] Comment on above: Order Comment: Speci men Type: BLOOD SPECIMEN Ordering Facility: [facility] Address: [address] [place] [address] Performed By: #### 1 751-7, , 2731-06 #### [facility] CLIA [id number] [address] [place] [address] [place] Nitrite Ql (U) Negative Normal Negative [facility] Comment on above: Order Comment: Speci men Type: BLOOD SPECIMEN Ordering Facility: [facility] Address: [address] [place] [address] Performed By: #### 1 751-7, 87143-9, 2731-06 #### [facility] CLIA [id number] [address] [place] [address] [place] pH (U) 7.5 [pH] Normal <8.5 [facility] Comment on above: Order Comment: Speci men Type: BLOOD SPECIMEN Ordering Facility: [facility] Address: [address] [place] [address] Performed By: #### 1 751-7, 21324-9, 2731-06 #### [facility] CLIA [id number] [address] [place] [address] [place] Protein (U) [Mass/Vol] Trace Abnormal Negative [facility] Comment on above: Order Comment: Speci men Type: BLOOD SPECIMEN Ordering Facility: [facility] Address: [address] [place] [address] Performed By: #### 1 751-7, , 2731-06 #### [facility] CLIA [id number] [address] [place] [address] [place] RBC LM.HPF (Urine sed) [#/Area] 0-2 /HPF Normal 0-2 /HPF [facility] Comment on above: Order Comment: Speci men Type: BLOOD SPECIMEN Ordering Facility: [facility] Address: [address] [place] [address] Performed By: #### 1 751-7, , 2731-06 #### [facility] CLIA [id number] [address] [place] [address] [place] Specific gravity (U) [Rel density] 1.015 Normal 1.005-1.030 [facility] Comment on above: Order Comment: Speci men Type: BLOOD SPECIMEN Ordering Facility: [facility] Address: [address] [place] [address] Performed By: #### 1 751-7, , 2731-06 #### [facility] CLIA [id number] [address] [place] [address] [place] Urobilinogen Ql (U) 0.2 EU/dL Normal 0.2-1.0 EU/dL [facility] Comment on above: Order Comment: Speci men Type: BLOOD SPECIMEN Ordering Facility: [facility] Address: [address] [place] [address] Performed By: #### 1 751-7, 93042-3, 2731-06 #### [facility] CLIA [id number] [address] [place], [place] [address] [place] [address] [place] WBC LM.HPF (Urine sed) [#/Area] 0-5 /HPF Normal 0-5 /HPF [facility] Comment on above: Order Comment: Speci men Type: BLOOD SPECIMEN Ordering Facility: [facility] Address: [address] [place] [address] Performed By: #### 1 751-7, 69835-3, 2730-8 #### [facility] CLIA [id number] [address] [place] [address] [place] ALBUMIN/CREATININE RATIO, UR INEon 12-25-2024 Albumin DL <= 20 mg/L (U) [Mass/Vol] mg/dL Normal [facility] Comment on above: Order Comment: Speci men Type: URINE SPECIMENOrdering Facility: [facility] Address: [address] [place] [address] Performed By: #### U ACR ####[facility] [id number] [place] [address] [place] Albumin/Creatinine (U) [Mass ratio] <16 Normal <30 [facility] Comment on above: Order Comment: Speci men Type: URINE SPECIMENOrdering Facility: [facility] Address: [address] [place] [address] Result Comment: Adul t Male and Female Nephrotic Criteria: <30 mg/g is considered normal to mildly increased 30-300 mg/g is considered moderately increased >300 mg/g is considered severely increased KDIGO. (2013). KDIGO 2012 Clinical Practice Guideline for the Evaluation and Management of Chronic Kidney Disease. Official Journal of the International Society of Nephrology, 3(1), 1-150. Performed By: #### U ACR ####[facility] [id number] [place] [address] [place] Creatinine (U) [Mass/Vol] 77.0 mg/dL Normal 20.0-300.0 [facility] Comment on above: Order Comment: Speci men Type: URINE SPECIMENOrdering Facility: [facility] Address: [address] [place] [address] Performed By: #### U ACR ####[facility] [id number] JEANNE DENMARKDESK [id number] [place] [address] [place] Comprehensive metabolic 2000 panelon 12-25-2024 Albumin [Mass/Vol] 4.4 g/dL Normal 3.9-4.9 [facility] Comment on above: Order Comment: Speci men Type: BLOOD SPECIMEN Ordering Facility: [facility] Address: [address] [place] [address] Performed By: #### 2 4323-8 #### [facility] [id number] [address] [place] [address] [place] ALP [Catalytic activity/Vol] 93 U/L Normal 34-123 [facility] Comment on above: Order Comment: Speci men Type: BLOOD SPECIMEN Ordering Facility: [facility] Address: [address] [place] [address] Performed By: #### 2 4323-8 #### [facility] [id number] [address] [place] [address] [place] ALT [Catalytic activity/Vol] 13 U/L Normal 7-38 [facility] Comment on above: Order Comment: Speci men Type: BLOOD SPECIMEN Ordering Facility: [facility] Address: [address] [place] [address] Performed By: #### 2 4323-8 #### [facility] CLIA [id number] [address] [place] [address] [place] Anion gap [Moles/Vol] 12 mmol/L Normal 8-15 [facility] Comment on above: Order Comment: Speci men Type: BLOOD SPECIMEN Ordering Facility: [facility] Address: [address] [place] [address] Performed By: #### 2 4323-8 #### [facility] CLIA [id number] [address] [place] [address] [place] AST [Catalytic activity/Vol] 18 U/L Normal 13-35 [facility] Comment on above: Order Comment: Speci men Type: BLOOD SPECIMEN Ordering Facility: [facility] Address: [address] [place] [address] Performed By: #### 2 4323-8 #### [facility] CLIA [id number] [address] [place] [address] [place] Bilirubin [Mass/Vol] 0.5 mg/dL Normal 0.2-1.3 [facility] Comment on above: Order Comment: Speci men Type: BLOOD SPECIMEN Ordering Facility: [facility] Address: [address] [place] [address] Performed By: #### 2 4323-8 #### [facility] CLIA [id number] [address] [place] [address] [place] Calcium [Mass/Vol] 9.6 mg/dL Normal 8.5-10.2 [facility] Comment on above: Order Comment: Speci men Type: BLOOD SPECIMEN Ordering Facility: [facility] Address: [address] [place] [address] Performed By: #### 2 4323-8 #### [facility] CLIA [id number] [address] [place] [address] [place] Chloride [Moles/Vol] 94 mmol/L Low 98-107 [facility] Comment on above: Order Comment: Speci men Type: BLOOD SPECIMEN Ordering Facility: [facility] Address: [address] [place] [address] Performed By: #### 2 4323-8 #### [facility] CLIA [id number] [address] [place] [address] [place] CO2 [Moles/Vol] 25 mmol/L Normal 22-30 [facility] Comment on above: Order Comment: Speci men Type: BLOOD SPECIMEN Ordering Facility: [facility] Address: [address] [place] [address] Performed By: #### 2 4323-8 #### [facility] [id number] [address] [place] [address] [place] Creatinine [Mass/Vol] 1.05 mg/dL High 0.58-0.96 [facility] Comment on above: Order Comment: Speci men Type: BLOOD SPECIMEN Ordering Facility: [facility] Address: [address] [place] [address] Performed By: #### 2 4323-8 #### [facility] [id number] [address] [place] [address] [place] Creatinine and Glomerular filtration rate.predicted panel (S/P/Bld) 55 mL/min/1.73m??? Low >=60 [facility] Comment on above: Order Comment: Speci men Type: BLOOD SPECIMEN Ordering Facility: [facility] Address: [address] [place] [address] Result Comment: Nicole mated Glomerular Filtration Rate (eGFR) is calculated using the 2020 CKD-EPI creatinine equation. This equation utilizes serum creatinine, sex, and age as parameters. The creatinine assay has traceable calibration to isotope dilution-mass spectrometry. Refer to KDIGO guidelines for clinical interpretation. In patients with unstable renal function, e.g. those with acute kidney injury, the eGFR may not accurately reflect actual GFR. Performed By: #### 2 4323-8 #### [facility] [id number] [address] [place] [address] [place] Glucose [Mass/Vol] 97 mg/dL Normal 74-99 [facility] Comment on above: Order Comment: Carolei men Type: BLOOD SPECIMEN Ordering Facility: [facility] Address: [address] [place] [address] Result Comment: The [place] Diabetes Association (ADA) provides guidance for cutoff values for fasting glucose and random glucose. The ADA defines fasting as no caloric intake for at least 8 hours. Fasting plasma glucose results between 100 to 125 [...] Standards of Medical Care in Diabetes 2016, [place] Diabetes Association. Diabetes Care. 2016.39(Suppl 1). Performed By: #### 2 4323-8 #### [facility] CLIA [id number] [address] [place] [address] [place] Potassium [Moles/Vol] 4.3 mmol/L Normal 3.7-5.1 [facility] Comment on above: Order Comment: Mich barlow Type: BLOOD SPECIMEN Ordering Facility: [facility] Address: [address] [place] [address] Performed By: #### 2 4323-8 #### [facility] CLIA [id number] [address] [place] [address] [place] Protein [Mass/Vol] 7.4 g/dL Normal 6.3-8.0 [facility] Comment on above: Order Comment: Carolei cain Type: BLOOD SPECIMEN Ordering Facility: [facility] Address: [address] [place] [address] Performed By: #### 2 4323-8 #### [facility] CLIA [id number] [address] [place] [address] [place] Sodium [Moles/Vol] 131 mmol/L Low 136-144 [facility] Comment on above: Order Comment: Carolei men Type: BLOOD SPECIMEN Ordering Facility: [facility] Address: [address] [place] [address] Performed By: #### 2 4323-8 #### [facility] CLIA [id number] [address] [place] [address] [place] Urea nitrogen [Mass/Vol] 17 mg/dL Normal 7-21 [facility] Comment on above: Order Comment: [place] barlow Type: BLOOD SPECIMEN Ordering Facility: [facility] Address: [address] [place] [address] Performed By: #### 2 4323-8 #### [facility] CLIA [id number] [address] [place] [address] [place] HbA1c (Bld)on 12-25-2024 Average glucose Estimated from glycated hemoglobin (Bld) [Mass/Vol] 131 mg/dL Normal [facility] Comment on above: Order Comment: [place] barlow Type: BLOOD SPECIMEN Ordering Facility: [facility] Address: [address] [place] [address] Result Comment: eAG: (Estimated average glucose) is a calculated value from HgbA1c and is pharmaceutical specialty representative of the average blood glucose level in the last 2-3 month period. Performed By: #### 1 751-7, 73631-1, 8 #### [facility] CLIA [id number] [address] [place] [address] [place] HbA1c (Bld) [Mass fraction] 6.2 % High 4.3-5.6 [facility] Comment on above: Order Comment: Mich barlow Type: BLOOD SPECIMEN Ordering Facility: [facility] Address: [address] [place] [address] Result Comment: [place] Diabetes Association guidelines indicate that patients with HgbA1c in the range 5.7-6.4% are at increased risk for development of diabetes, and intervention by lifestyle modification may be beneficial. HgbA1c greater or equal to 6.5% is considered diagnostic of diabetes. Performed By: #### 1 751-7, 21274-1, 8 #### [facility] CLIA [id number] [address] [place] [address] [place] CNPFaustina 12-03-2024 [facility] Tele[facility] TASHIA FERNANDEZ ([id number]) 1950 F Date Time Provider Department 12/03/24 NYLA CONTRERAS During your visit today, we recorded the following information about you: Nyla Contreras RPh 12/03/2024 2:51 PM Signed Pharmacy Community Monitoring Outreach Patient indicated a medication question during Chronic Disease Management (CDM) outreach. Encounter was routed to Pharmacy Medication Question Pool for follow up. Patient indicated Medication question(s) regarding: Medication Reconciliation Review The following was discussed with them: The patient is wanting to know if any of her medications would cause nocturia. Plan/Recommendations: Went through medication list with patient. She is also taking Benadryl at night sometimes which I told her would not cause nocturia. Let patient know that the medications she is on would not cause these symptoms. She has a follow-up appointment on 12/27/2024 with her PCP where she will discuss these symptoms further. The patient did verbalize understanding of information discussed today. I encouraged her to contact PCP office with any additional questions or concerns. Nyla Contreras RPh December 03, 2024 2:38 PM Allergies As of Date: 12/03/2024 Noted Allergy Reaction LIPITOR (ATORVASTATIN CALCIUM) 10/21/2014 14 - Other: See Comments Comments: muscle cramps SPIRONOLACTONE 03/21/2014 14 - Other: See Comments Comments: headache ACEON (PERINDOPRIL ERBUMINE) 11/02/2005 2 - Rash 3 - Cough CODEINE 12/09/2009 5 - Intolerance Comments: Chest pain LISINOPRIL 10/07/2005 3 - Cough Comments: dry hacking cough Date Reviewed: 11/25/2024 Reviewed by: Dax Turner MA - Fully Assessed Reason for Visit: Medication Question [9278] Cmt: [facility] Outreach Prescriptions as of 12/03/2024 - diphenhydrAMINE (BENADRYL) 25 mg tablet Take 25 mg by mouth at bedtime as needed. - OTC PRODUCT Take 1 tablet by mouth once daily. Prevagen - alendronate (FOSAMAX) 70 mg tablet Take 1 tablet by mouth one time a week. In AM with cup of water on empty stomach. Nothing else by mouth and stay upright for 30 min. - gabapentin (NEURONTIN) 300 mg capsule Take 1 capsule by mouth daily at bedtime for 90 days. - levothyroxine (SYNTHROID) 88 mcg tablet Take one tablet daily Monday-Monday and two tablets on Monday - amLODIPine (NORVASC) 2.5 mg tablet Take one tablet daily in addition to 5 mg to equal 7.5 mg daily - amLODIPine (NORVASC) 5 mg tablet Take 1 tablet by mouth once daily. - pantoprazole DR (PROTONIX) 40 mg tablet Take 1 tablet by mouth once daily. - labetalol (TRANDATE) 200 mg tablet Take 1 tablet by mouth two times a day. - isosorbide mononitrate ER (IMDUR) 30 mg 24 hr tablet Take 1 tablet by mouth once daily. - potassium chloride ER (KLOR-CON) 20 mEq tablet Take 2 tablets by mouth two times a day. - meclizine (ANTIVERT) 25 mg tab Take 1 tablet by mouth three times a day as needed (vertigo). - blood sugar diagnostic (BLOOD GLUCOSE TEST) test strip Test blood sugar(s) 1 times daily. Dx: Prediabetes Insulin: No - Lancets lancets Test blood sugar(s) 1 times daily. Dx: Prediabetes Insulin: No - losartan (COZAAR) 100 mg tablet Take 1 tablet by mouth once daily. - polyethylene glycol 3350 17 gram/dose powder Take 17 g by mouth once daily. Dissolve dose in 4 - 8 ounces of liquid and take as directed. - doxylamine succinate (SLEEP AID ORAL) Take by mouth daily at bedtime. - calcium carbonate-Vit D3-minerals (CALTRATE) 600 mg calcium- 400 unit tab Take 2 tablets by mouth once daily. - ondansetron orally disintegrating (ZOFRAN ODT) 4 mg disintegrating tablet Take 1 tablet by mouth every 6 hours as needed for Nausea/Vomiting. - 0.9 % sodium chloride (NACL 0.9%) 0.9% solp Infuse 500 ml IV over [address] - Biotin 2,500 mcg cap Take 1 capsule by mouth once daily. - aspirin, enteric coated (ASPIRIN, ENTERIC COATED) 81 mg EC tablet Take 81 mg by mouth once daily. Meds Comments as of 01/03/2017: Biotin Problem List As Of Date 12/03/2024 Noted Resolved Primary hypertension [I10] Personal history of colonic polyps [Z86.0100] 06/02/2021 Postablative hypothyroidism [E89.0] 10/10/2005 Osteoporosis [M81.0] 01/16/2007 GASTRITIS ANTRAL( W/O Hemorrhage) [K29.60] 07/13/2007 11/02/2015 POLYP STOMACH [D13.1] 07/13/2007 12/19/2019 CERVICAL DISC DEGEN [M50.30] 02/11/2009 Degenerative arthritis of knee [M17.9] 05/24/2011 Trigeminal neuralgia [G50.0] 10/11/2011 Inadequate pelvic muscles [R29.898] 01/17/2012 Mixed stress and urge urinary incontinence [N39*02/03/2012 Uterine prolapse [N81.4] 02/03/2012 Cystocele, midline [N81.11] 02/03/2012 Gastroesophageal reflux disease [K21.9] 06/01/2012 Delayed gastric emptying [K30] 07/24/2012 Trochanteric bursitis of left hip [M70.62] 07/24/2012 10/15/2018 Chronic hypokalemia [E8 (more content not included)... Normal [facility] CNOVon 11-25-2024 CNOV Office Visit (ADILIA ) TASHIA FERNANDEZ ([id number]) 1950 F Date Time Provider Department 11/25/24 9:20 AM JONNA BENAVIDES During your visit today, we recorded the following information about you: Pulse Blood pressure Weight 74/minute 111/62 78.6 kg Jonna Benavides MD 11/25/2024 9:23 AM Signed Jonna Benavides MD Interventional Cardiology [address] [phone] Chief Complaint Patient presents with: Established Patient HISTORY OF PRESENT ILLNESS: Ms. Fernandez is a 74 year old female seen in my office today for follow-up prior history of hypertensive heart disease and diabetes mellitus with microvascular angina doing well from the cardiac 1 to be asymptomatic denies chest pain shortness of breath or angina well-controlled with medical therapy EKG today shows right bundle branch block incomplete with normal sinus rhythm no signs or symptoms of congestive heart failure Cardiac Risk Factors age (male over 45, female over 55), hyperlipidemia, diabetes, hypertension, family history of CAD PAST MEDICAL HISTORY Diagnosis Date Contact dermatitis and other eczema Degenerative arthritis of knee 05/24/2011 Delayed gastric emptying 07/24/2012 Diabetes mellitus type II (HCC) 05/31/2024 Diarrhea Diverticulitis Diverticulosis of colon (without mention of hemorrhage) Diverticulosis Dysphagia, unspecified 08/29/2017 Elevated alkaline phosphatase level 07/12/2018 Essential hypertension, benign GERD (gastroesophageal reflux disease) Hyperlipidemia Hypokalemia 09/25/2012 Hypothyroidism Impaired fasting glucose 11/19/2015 Inadequate pelvic muscles 01/17/2012 Lumbar disc disease with radiculopathy 09/01/2016 Lung nodule < 6cm on CT 10/15/2018 10/07/18: incidental 4.5 mm nodule RML thyrotoxicosis Nonrheumatic mitral (valve) insufficiency Obesity Other osteoporosis 12/21/2006 Pancreatitis Paroxysmal SVT (supraventricular tachycardia) ([facility]) Personal history of colonic polyps Colon polyps POLYP STOMACH 07/13/2007 Stage 3a chronic kidney disease (HCC) Statin intolerance 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--surgery not needed (2015) Trigeminal neuralgia 10/11/2011 Trochanteric bursitis of left hip 07/24/2012 Unspecified hemorrhoids without mention of complication Hemorrhoids PAST SURGICAL HISTORY Procedure Laterality Date COLONOSCOPY FLX DX W/COLLJ SPEC WHEN PFRMD 12/2018 Colonoscopy COLONOSCOPY FLX DX W/COLLJ SPEC WHEN PFRMD 07/13/2007 Lax colon COLONOSCOPY FLX DX W/COLLJ SPEC WHEN PFRMD 03/26/2014 Colonoscopy COLONOSCOPY FLX DX W/COLLJ SPEC WHEN PFRMD 12/2018 IIT-Prrpspi-dponey 10 years COLONOSCOPY GEN ANES 04/28/2021 DECOMPRESSION PLANTAR DIGITAL NERVE 1999 heel spur/ plantar fasciitis repair Rt EGD 06/02/2021 EGD TRANSORAL BIOPSY SINGLE/MULTIPLE 07/13/2007 Gastritis, fundic gland polyps EGD W/O [facility] SPEC VARICIES INJ 01/03/2024 Dr. Kelley ESOPHAGOGASTRODUODENOSCOPY TRANSORAL DIAGNOSTIC 03/26/2014 EGD EYE SURGERY HX INCISE FINGER TENDON SHEATH Left 08/09/2024 Left ring trigger finger release LAPAROSCOPY SURG CHOLECYSTECTOMY Cholecystectomy, lap LIG/TRNSXJ FLP TUBE ABDL/VAG APPR UNI/BI LIGATE FALLOPIAN TUBE NEUROPLASTY AND/TRANSPOS MEDIAN NRV CARPAL TUNNE Carpal tunnel decomp bilateral OPEN REPAIR OF ROTATOR CUFF ACUTE 1992 Rotator cuff repair, right STRESS TEST,COMPLETE_*FL FAMILY HISTORY Problem Relation Age of Onset Diabetes Mother Heart Mother Stroke Mother Hypertension Mother other (MVA) Father Hypertension Sister Heart Sister Hypertension Sister Heart Sister Hypertension Brother Heart Brother Hypertension Brother Cancer Brother Oral cancer Cancer Paternal Grandfather skin Breast Cancer Maternal Aunt Asthma No Family History Social History Tobacco Use Smoking status: Former Current packs/day: 0.10 Average packs/day: 0.1 packs/day for 1 year (0.1 ttl pk-yrs) Types: Cigarettes Smokeless tobacco: Never Tobacco comments: Smoked 1 year or less in 1980s. Spouse was smoker in home for 39 years. Father smoked in childhood home. Vaping Use Vaping status: Never Used Substance Use Topics Alcohol use: No Drug use: No ALLERGIES Allergen Reactions Lipitor [Atorvastat* Other: See Comments muscle cramps Spironolactone Other: See Comments headache Aceon [Perindopril * Rash, Cough Codeine Intolerance Chest pain Lisinopril Cough dry hacking cough Medications: Current Outpatient Medications Medication Sig Dispense Refill OTC PRODUCT Take 1 tablet by mouth once daily. Prevagen alendronate (FOSAMAX) 70 mg tablet Take 1 tablet by mouth one time a week. In AM with cup of water on empty stomach. Nothing else by mouth and stay upright for 30 min. 12 tablet 3 gabapentin (more content not included)... Normal [facility] [id number] 11-25-2024 ECG01 Ventricular Rate : 7 3 BPM Atrial Rate : 73 BPM P-R Interval : 192 ms QRS Duration : 116 ms Q-T Interval : 406 ms QTC Calculation(Bazett) : 447 ms Calculated P [place] : 46 degrees Calculated R [place] : 54 degrees Calculated T [place] : 46 degrees NORMAL SINUS RHYTHM INCOMPLETE RIGHT BUNDLE BRANCH BLOCK BORDERLINE ECG Confirmed by MD BRIGGS GREGORY () on 11/28/2024 12:48:04 PM NAME : TASHIA FERNANDEZ PID : [id number] : 1950 Gender : Female Race : ORD : Procedure Date : Nov 25 2024 09:11:38 Edit Date : Nov 28 2024 12:48:05 Diagnosis: NORMAL SINUS RHYTHM INCOMPLETE RIGHT BUNDLE BRANCH BLOCK BORDERLINE ECG Confirmed by MD BRIGGS GREGORY () on 11/28/2024 12:48:04 PM Test Reason : Location : 136 : [facility] Overread By : MD BRIGGS GREGORY Edited By : MD BRIGGS GREGORY Referred By : Jonna Benavides Acquired by : Sonido Lees [facility] SCREENINGon 10-25-2024 [facility] SCREENING * * *Final Report* * * DATE OF EXAM: Oct 25 2024 10:06AM [facility] [address] [facility] SCREENING / PROCEDURE REASON: Encounter for screening mammogram for malignant neoplasm of breast * * * * Physician Interpretation * * * * RESULT: [place] [address] #[id number] - [facility] SCREENING HISTORY: Patient is 74 years old and is seen for screening and is asymptomatic in both breasts. Patient states no personal history of breast cancer. Patient states no personal history of other cancers. COMPARISON STUDIES: The present examination has been compared to prior imaging studies dated 09/06/2018 (mammogram), 09/05/2019 (mammogram), 09/07/2020 (mammogram), 10/11/2021 (mammogram) and 10/11/2022 (mammogram). MAMMOGRAM TECHNIQUE: The study was acquired using full field digital technology and interpreted from soft copy. Computer-aided detection was utilized by the radiologist in the interpretation of this examination. MAMMOGRAM FINDINGS: The breasts are extremely dense, which lowers the sensitivity of mammography. No suspicious masses, calcifications or other abnormalities are seen in either breast. There are no significant interval changes. IMPRESSION: There is no mammographic evidence of malignancy in either breast. Routine screening mammogram is recommended. Annual mammogram will be due in 1 year. BI-RADS Category 1: Negative RISK: Based on the Tyrer-Cuzick (TC) risk assessment model, this patient has a 2.6% lifetime risk of developing breast cancer, meaning they are at average risk for developing breast cancer. However, this is only an estimate based on available history provided on the patient's questionnaire. We encourage all patients to talk with their providers about these results, further recommendations for managing breast health, and appropriate supplemental screening options if the patient has dense breast tissue. Interpreting Radiologist: Lam Florentino M.D. Electronically signed on: 10/28/2024 [employer] Operator: ROSALES Transcribe Date/Time: Oct 25 2024 9:53A Dictated by: LAM FLORENTINO MD This examination was interpreted and the report reviewed and electronically signed by: LAM FLORENTINO MD on Oct 28 2024 8:46AM EST [id number] Normal [facility] CNOVon 09-16-2024 CNOV Office Visit (ADORE ) TASHIA FERNANDEZ ([id number]) 1950 F Date Time Provider Department 09/16/24 10:45 AM ABHISHKE YI During your visit today, we recorded the following information about you: Abhishek Yi MD 09/16/2024 12:45 PM Signed Abhishek Yi MD Department of Orthopaedics Orthopaedics [address] [place] [address] Dept: [phone] Dept September 16, 2024 CHIEF COMPLAINT: Established Patient and Post Op of the Left Hand. HPI Patient is 5 weeks 3 day post op left ring trigger finger release. She denies any pain. ASSESSMENT: M65.342 Trigger ring finger of left hand (primary encounter diagnosis) SUMMARY/PLAN: She is just over 5 weeks and is doing great. She is stiff but she says this past week it has freed up. She has no complaints at this time with no locking or catching. Follow-up as needed. Exam: Healed incision and excellent range of motion. Supporting Information Below: Medications: Current Outpatient Medications Medication Sig levothyroxine (SYNTHROID) 88 mcg tablet Take one tablet daily Monday-Monday and two tablets on Monday amLODIPine (NORVASC) 2.5 mg tablet Take one tablet daily in addition to 5 mg to equal 7.5 mg daily amLODIPine (NORVASC) 5 mg tablet Take 1 tablet by mouth once daily. labetalol (TRANDATE) 200 mg tablet Take 1 tablet by mouth two times a day. isosorbide mononitrate ER (IMDUR) 30 mg 24 hr tablet Take 1 tablet by mouth once daily. alendronate (FOSAMAX) 70 mg tablet Take 70 mg by mouth one time a week. In AM with cup of water on empty stomach. Nothing else by mouth and stay upright for 30 min. gabapentin (NEURONTIN) 300 mg capsule Take 1 capsule by mouth daily at bedtime for 90 days. potassium chloride ER (KLOR-CON) 20 mEq tablet Take 2 tablets by mouth two times a day. meclizine (ANTIVERT) 25 mg tab Take 1 tablet by mouth three times a day as needed (vertigo). losartan (COZAAR) 100 mg tablet Take 1 tablet by mouth once daily. polyethylene glycol 3350 17 gram/dose powder Take 17 g by mouth once daily. Dissolve dose in 4 - 8 ounces of liquid and take as directed. doxylamine succinate (SLEEP AID ORAL) Take by mouth daily at bedtime. calcium carbonate-Vit D3-minerals (CALTRATE) 600 mg calcium- 400 unit tab Take 2 tablets by mouth once daily. Biotin 2,500 mcg cap Take 1 capsule by mouth once daily. aspirin, enteric coated (ASPIRIN, ENTERIC COATED) 81 mg EC tablet Take 81 mg by mouth once daily. pantoprazole DR (PROTONIX) 40 mg tablet Take 1 tablet by mouth once daily. (Patient not taking: Reported on 09/16/2024) blood sugar diagnostic (BLOOD GLUCOSE TEST) test strip Test blood sugar(s) 1 times daily. Dx: Prediabetes Insulin: No Lancets lancets Test blood sugar(s) 1 times daily. Dx: Prediabetes Insulin: No ondansetron orally disintegrating (ZOFRAN ODT) 4 mg disintegrating tablet Take 1 tablet by mouth every 6 hours as needed for Nausea/Vomiting. 0.9 % sodium chloride (NACL 0.9%) 0.9% solp Infuse 500 ml IV over [address] No current facility-administered medications for this visit. Allergies: Lipitor [Atorvastatin Calcium], Spironolactone, Aceon [Perindopril Erbumine], Codeine, and Lisinopril Abhishek Yi MD Allergies As of Date: 09/16/2024 Noted Allergy Reaction LIPITOR (ATORVASTATIN CALCIUM) 10/21/2014 14 - Other: See Comments Comments: muscle cramps SPIRONOLACTONE 03/21/2014 14 - Other: See Comments Comments: headache ACEON (PERINDOPRIL ERBUMINE) 11/02/2005 2 - Rash 3 - Cough CODEINE 12/09/2009 5 - Intolerance Comments: Chest pain LISINOPRIL 10/07/2005 3 - Cough Comments: dry hacking cough Date Reviewed: 09/16/2024 Reviewed by: Abhishek Yi MD - Fully Assessed Reason for Visit: Established Patient [175] Post Op [174] Primary Visit Diagnosis:Trigger ring finger of left hand [M65.342] Prescriptions as of 09/16/2024 - levothyroxine (SYNTHROID) 88 mcg tablet Take one tablet daily Monday-Monday and two tablets on Monday - amLODIPine (NORVASC) 2.5 mg tablet Take one tablet daily in addition to 5 mg to equal 7.5 mg daily - amLODIPine (NORVASC) 5 mg tablet Take 1 tablet by mouth once daily. - pantoprazole DR (PROTONIX) 40 mg tablet Take 1 tablet by mouth once daily. - labetalol (TRANDATE) 200 mg tablet Take 1 tablet by mouth two times a day. - isosorbide mononitrate ER (IMDUR) 30 mg 24 hr tablet Take 1 tablet by mouth once daily. - alendronate (FOSAMAX) 70 mg tablet Take 70 mg by mouth one time a week. In AM with cup of water on empty stomach. Nothing else by mouth and stay upright for 30 min. - gabapentin (NEURONTIN) 300 mg capsule Take 1 capsule by mouth daily at bedtime for 90 days. - potassium chloride ER (KLOR-CON) 20 mEq tablet Take 2 tablets by mouth two times a day. - meclizine (ANTIVERT) 25 mg tab Take 1 tablet by mouth three t (more content not included)... Normal [facility] CNOVon 08-19-2024 CNOV Office Visit (ORTHWS ) TASHIA FERNANDEZ ([id number]) 1950 F Date Time Provider Department 08/19/24 11:45 AM ANJU HAIRSTON During your visit today, we recorded the following information about you: Noelle Lloyd MA 08/19/2024 12:28 PM Signed AMB ROOMING INTAKE FLOWSHEET DATA Anju Hairston PA-C 08/19/2024 12:28 PM Signed Anju Hairston PA-C Department of Orthopaedics Orthopaedics [facility] [address] Dept: [phone] Dept August 19, 2024 CHIEF COMPLAINT: Post Op of the Left Hand. ASSESSMENT: M25.572 Acute left ankle pain (primary encounter diagnosis) M25.562 Acute pain of left knee SUMMARY/PLAN: Patient presents 10 days s/p left ring trigger finger release. Doing well, no pain, carmona is stiff. We discussed proper hand washing, no soaking of the operative hand. No heavy lifting, pushing or pulling with the operative hand, encourage gentle motion. We discussed scar massage. Follow up as planned. Having left knee and ankle pain, was dressing a few days ago and heard a pop in her ankle, ankle is swollen and bruised, painful to walk. Told her we can get some xrays but she will need to follow up to discuss plain of care. Exam: Incision site is well approximated without erythema or drainage. Mild but appropriate edema without ecchymosis. No locking or catching of the digits. Neurologically intact. Imaging: Deferred today Ms. Tashia Fernandez was advised as to contrast therapies and/or to take analgesics/anti-inflammatori es as needed and all contraindications were reviewed. Supporting Information Below: Medications: Current Outpatient Medications Medication Sig alendronate (FOSAMAX) 70 mg tablet Take 70 mg by mouth one time a week. In AM with cup of water on empty stomach. Nothing else by mouth and stay upright for [address] (PROTONIX) 40 mg tablet Take 40 mg by mouth once daily. gabapentin (NEURONTIN) 300 mg capsule Take 1 capsule by mouth daily at bedtime for 90 days. potassium chloride ER (KLOR-CON) 20 mEq tablet Take 2 tablets by mouth two times a day. amLODIPine (NORVASC) 5 mg tablet Take 1 tablet by mouth once daily. amLODIPine (NORVASC) 2.5 mg tablet Take one tablet daily in addition to 5 mg to equal 7.5 mg daily labetalol (TRANDATE) 200 mg tablet Take 1 tablet by mouth two times a day. isosorbide mononitrate ER (IMDUR) 30 mg 24 hr tablet Take 1 tablet by mouth once daily. meclizine (ANTIVERT) 25 mg tab Take 1 tablet by mouth three times a day as needed (vertigo). levothyroxine (SYNTHROID) 88 mcg tablet Take one tablet daily Monday-Monday and two tablets on Monday losartan (COZAAR) 100 mg tablet Take 1 tablet by mouth once daily. polyethylene glycol 3350 17 gram/dose powder Take 17 g by mouth once daily. Dissolve dose in 4 - 8 ounces of liquid and take as directed. doxylamine succinate (SLEEP AID ORAL) Take by mouth daily at bedtime. calcium carbonate-Vit D3-minerals (CALTRATE) 600 mg calcium- 400 unit tab Take 2 tablets by mouth once daily. ondansetron orally disintegrating (ZOFRAN ODT) 4 mg disintegrating tablet Take 1 tablet by mouth every 6 hours as needed for Nausea/Vomiting. Biotin 2,500 mcg cap Take 1 capsule by mouth once daily. aspirin, enteric coated (ASPIRIN, ENTERIC COATED) 81 mg EC tablet Take 81 mg by mouth once daily. blood sugar diagnostic (BLOOD GLUCOSE TEST) test strip Test blood sugar(s) 1 times daily. Dx: Prediabetes Insulin: No Lancets lancets Test blood sugar(s) 1 times daily. Dx: Prediabetes Insulin: No 0.9 % sodium chloride (NACL 0.9%) 0.9% solp Infuse 500 ml IV over [address] No current facility-administered medications for this visit. Allergies: Lipitor [Atorvastatin Calcium], Spironolactone, Aceon [Perindopril Erbumine], Codeine, and Lisinopril This note was partially generated using [employer] voice recognition system, and there may be some incorrect words, spellings, and punctuation that were not noted in checking the note before saving. YESSY ValenzuelaC Allergies As of Date: 08/19/2024 Noted Allergy Reaction LIPITOR (ATORVASTATIN CALCIUM) 10/21/2014 14 - Other: See Comments Comments: muscle cramps SPIRONOLACTONE 03/21/2014 14 - Other: See Comments Comments: headache ACEON (PERINDOPRIL ERBUMINE) 11/02/2005 2 - Rash 3 - Cough CODEINE 12/09/2009 5 - Intolerance Comments: Chest pain LISINOPRIL 10/07/2005 3 - Cough Comments: dry hacking cough Date Reviewed: 08/19/2024 Reviewed by: Noelle Lloyd MA - Fully Assessed Reason for Visit: Post Op [174] Visit Diagnoses:Acute left ankle pain [M25.572] Acute pain of left knee [M25.562] Trigger ring finger of left hand [M65.342] Order(s):XR ANKLE GENERAL 3V AP/LAT/OBL LEFT [[id number]] Order #: [id number] FUTURE XR KNEE GENERAL 4V AP BOTH/PA BOTH/LAT/MERC LEFT [[id number]] Order #: 2 (more content not included)... Normal [facility] XR ANKLE 3V AP/LAT/OBL LTon 08-19-2024 XR ANKLE 3V AP/LAT/OBL LT * * *Final Report* * * DATE OF EXAM: Aug 19 2024 12:57PM [id number] - XR ANKLE 3V AP/LAT/OBL LT / PROCEDURE REASON: Acute left ankle pain * * * * Physician Interpretation * * * * EXAMINATION: XR ANKLE 3V AP/LAT/OBL LT PATIENT/TECHNOLOGIST PROVIDED HISTORY: PT STATES SHE TWISTED ANKLE AFTER GNOSTICISM ON MONDAY FELT POP. PREVIOUS FX 10 YEARS AGO LEFT ANKLE CLINICAL INFORMATION: 74 years old Female with Acute left ankle pain TECHNIQUE: XR ANKLE 3V AP/LAT/OBL LT Laterality: LEFT Number of different views (projections): 3 COMPARISON: None RESULT: No acute fracture. Remote healed fracture deformity of the lateral malleolus. Ankle mortise is maintained. Small calcaneal spurs. Arteriolosclerosis. IMPRESSION: No acute osseous abnormality. [employer] Operator: LUIS ENRIQUE Transcribe Date/Time: Aug 26 2024 4:30P Dictated by : NÉSTOR RING DO This examination was interpreted and the report reviewed and electronically signed by: NÉSTOR RING DO on Aug 26 2024 4:31PM EST [id number] Normal [facility] XR KNEE 4V AP/PA BOTH+LAT/ME R LTon 08-19-2024 XR KNEE 4V AP/PA BOTH+LAT/DANYA LT * * *Final Report* * * DATE OF EXAM: Aug 19 2024 12:56PM [id number] - XR KNEE 4V AP/PA BOTH+LAT/DANYA LT / PROCEDURE REASON: multiple diagnoses * * * * Physician Interpretation * * * * EXAMINATION / TECHNIQUE: XR KNEE 4V AP/PA BOTH+LAT/DANYA LT HISTORY: PT STATES SHE FELL TWO YEARS AGO ON LEFT KNEE Acute left ankle pain Acute pain of left knee COMPARISON: None. RESULT: No acute fracture or osseous malalignment is identified. The joint spaces are preserved. No joint effusion. IMPRESSION: No acute bony abnormality. [employer] Operator: LUIS ENRIQUE Transcribe Date/Time: Aug 26 2024 8:43P Dictated by : TOLU REDDY MD This examination was interpreted and the report reviewed and electronically signed by: TOLU REDDY MD on Aug 26 2024 8:43PM EST [id number] Normal [facility] ANES POSTPROC EVALon 024 ANES POSTPROC EVAL HNO ID: [id number] Author: MICHAEL CHAHAL DO Service: Anesthesiology Author Type: Anesthesiologist Type: Anesthesia Postprocedure Evaluation Filed: 08/09/2024 16:25 Note Text: POST ANESTHESIA EVALUATION NOTE : 1950 Procedure Summary Date: 08/09/24 Room / Location: NM OR02 / NM OR Anesthesia Start: 1034 Anesthesia Stop: 1104 Procedure: RELEASE TRIGGER FINGER (Left: Finger ring) Diagnosis: Trigger ring finger of left hand (Trigger ring finger of left hand [M65.342]) Surgeons: Abhishek Yi MD Responsible Provider: Michael Chahal DO Anesthesia Type: MAC ASA Status: 3 Anesthesia Type: MAC Last Vitals Vitals Value Taken Time BP 155/72 08/09/24 1137 Temp 36 ?C (96.8 ?F) 08/09/24 1102 Pulse 53 08/09/24 1137 Resp 20 08/09/24 1137 SpO2 100 % 08/09/24 1137 Post Anesthesia Patient Status Patient Evaluation: PACU. PACU/ICU Patient Condition: stable. Anticipated Disposition: phase 2 then home. Neurological Status: aware and responsive. Pulmonary Status: breathing comfortably on room air Airway Control: returned to baseline unsupported. Cardiovascular Status: stable. Pain Management: clinically adequate - multimodal analgesia pain management approach Postoperative Hydration: acceptable. Intraoperative Events: no significant anesthesia events Post Operative Nausea/Vomiting Status: no significant post operative nausea or vomiting Recommendation: continue current plan of care and further care per PACU/ICU/floor team. Anesthesia Observations No Documentation SIGNATURE: Michael Chahal DO PATIENT NAME: Tashia Fernandez DATE: August 09, 2024 TIME: 4:25 PM CSN: [id number] [facility] ANES PRE-OPon 08-09-2024 ANES PRE-OP HNO ID: [id number] Author: NIRMALA SOLIMAN MD Service: Anesthesiology Author Type: Anesthesiologist Type: Anesthesia Preprocedure Evaluation Filed: 08/09/2024 09:21 Note Text: ANESTHESIOLOGY DAY OF SURGERY NOTE : 1950 Procedure Information Date/Time: 08/09/24 0940 Procedure: RELEASE TRIGGER FINGER (Left: Finger ring) Location: NM OR02 / NM OR Surgeons: Abhishek Yi MD Estimated body mass index is 33.79 kg/m? as calculated from the following: Height as of 08/07/24: 152.4 cm (5'). Weight as of 08/07/24: 78.5 kg (173 lb). Most recent hematocrit and potassium results: HCT 38.3 05/29/2024 Potassium 4.2 05/29/2024 Relevant Problems CARDIO (+) ASHD (arteriosclerotic heart disease) (+) Microvascular angina (HCC) (+) Mild pulmonary hypertension (HCC) (+) Paroxysmal SVT (supraventricular tachycardia) (HCC) (+) Primary hypertension (+) Small vessel disease (HCC) [I73.9 (ICD-10-CM)] (+) Venous insufficiency (chronic) (peripheral) ENDO (+) Diabetes mellitus type II (HCC) (+) Postablative hypothyroidism GI (+) Gastroesophageal reflux disease (+) Hiatal hernia -RENAL (+) Stage 3a chronic kidney disease (HCC) I - PHYSICAL EVALUATION AIRWAY Patient intubated: No. Tracheostomy tube not present Mallampati: II. TM distance: >3 FB. Neck ROM: full ROM without neurological symptoms. Mouth opening: adequate. Short neck: no. Thick neck: no DENTAL Normal dental observations. Dental findings: edentulous. Dentures, upper: complete. Dentures, lower: complete. II - ANESTHESIA PLAN ASA Score: 3 Anesthetic Plan: MAC The patient is not a current smoker. NPO Status: adequate Beta Gustavo Monitoring Plan Monitoring plan: standard ASA. Post Procedure Analgesic Plan Postoperative analgesic plan: parenteral or oral opioids and multimodal analgesia. Informed Consent Anesthetic risks, benefits, alternatives, personnel and consent discussed: yes. Patient / Responsible Republican agrees to proceed: yes Patient / Surrogate agrees to blood products: blood products not planned DNR status not reviewed with patient and/or family prior to surgery. Significant changes in the patient condition since the History and Physical, not otherwise documented in primary service progress note: no. Potential Anesthesia issues that may suggest increased risk of complications or contraindication to planned procedure: none. Discussed the possibility of lip / dental damage: yes Vitals Value Taken Time BP 169/60 08/09/24 0852 Pulse 62 08/09/24 08 Resp 16 08/09/24 08 Temp 36 ?C (96.8 ?F) 08/09/24 08 SpO2 97 % 08/09/24 0852 Facility-Administered Medications as of 08/09/2024 Medication Dose Route Frequency lidocaine (PF) 10 mg/mL (1 %) 1-2 mg injection (XYLOCAINE) 0.1-0.2 mL INTRADERMAL PRN lactated ringers iv infusion 5-30 mL/hr INTRAVENOUS CONTINUOUS NaCl 0.9% iv flush bag 20 mL INTRAVENOUS PRN Outpatient Medications as of 08/09/2024 Medication Sig gabapentin (NEURONTIN) 300 mg capsule Take 1 capsule by mouth daily at bedtime for 90 days. potassium chloride ER (KLOR-CON) 20 mEq tablet Take 2 tablets by mouth two times a day. amLODIPine (NORVASC) 5 mg tablet Take 1 tablet by mouth once daily. amLODIPine (NORVASC) 2.5 mg tablet Take one tablet daily in addition to 5 mg to equal 7.5 mg daily labetalol (TRANDATE) 200 mg tablet Take 1 tablet by mouth two times a day. isosorbide mononitrate ER (IMDUR) 30 mg 24 hr tablet Take 1 tablet by mouth once daily. levothyroxine (SYNTHROID) 88 mcg tablet Take one tablet daily Monday-Monday and two tablets on Monday losartan (COZAAR) 100 mg tablet Take 1 tablet by mouth once daily. meclizine (ANTIVERT) 25 mg tab Take 1 tablet by mouth three times a day as needed (vertigo). blood sugar diagnostic (BLOOD GLUCOSE TEST) test strip Test blood sugar(s) 1 times daily. Dx: Prediabetes Insulin: No Lancets lancets Test blood sugar(s) 1 times daily. Dx: Prediabetes Insulin: No polyethylene glycol 3350 17 gram/dose powder Take 17 g by mouth once daily. Dissolve dose in 4 - 8 ounces of liquid and take as directed. doxylamine succinate (SLEEP AID ORAL) Take by mouth daily at bedtime. calcium carbonate-Vit D3-minerals (CALTRATE) 600 mg calcium- 400 unit tab Take 2 tablets by mouth once daily. ondansetron orally disintegrating (ZOFRAN ODT) 4 mg disintegrating tablet Take 1 tablet by mouth every 6 hours as needed for Nausea/Vomiting. 0.9 % sodium chloride (NACL 0.9%) 0.9% solp Infuse 500 ml IV over [address] Biotin 2,500 mcg cap Take 1 capsule by mouth once daily. aspirin, enteric coated (ASPIRIN, ENTERIC COATED) 81 mg EC tablet Take 81 mg by mouth once daily. I have interviewed and examined the patient. I have reviewed the medical record and/or the pre-anesthesia evaluation, pertinent labs, and test results. This contains updated information obtained within 48 hours of Surgery/Procedure. SIGN (more content not included)... [facility] OPERATIVE NOon 08-09-2024 OPERATIVE NO HNO ID: [id number] Author: ABHISHEK YI MD Service: Orthopaedic Surgery Author Type: Physician Type: Operative Report Filed: 08/09/2024 11:55 Note Text: OPERATIVE/PROCEDURE REPORT LOG ID: [id number] SURGERY/PROCEDURE DATE: 08/09/2024 INCISION/PROCEDURE START TIME: 10:48 AM INCISION CLOSE/PROCEDURE END TIME: 10:56 AM SURGEON(S)/PROCEDURALIST(S) AND BAND SAWING MACHINE OPERATOR(S): Surgeons and Role: * Abhishek Yi MD - Primary No Additional Staff SURGERY/PROCEDURE(S): left, ring trigger finger release. ANESTHESIA: Monitored Anesthesia Care SURGERY/PROCEDURE DETAILS: This is a pleasant, 74 year old female who had significant pain, locking and catching of the ring finger on the left hand. We discussed the risks, benefits, alternatives and potential complications involving both operative and nonoperative care. She understood and wished to pursue surgery. On August 09, 2024, the patient was clearly identified in the preoperative area marked accordingly on the left ring digit. This was a soft tissue procedure of less than 2 hours and the patient did not require perioperative antibiotics. Patient was taken the operative suite and placed in a supine position with an armboard on the left . Anesthesia assumed care of the head and neck for the remainder of the case and began a MAC anesthetic. The left upper extremity was then sterilely prepped and draped in standard fashion. An appropriate timeout was conducted and all in the room were in agreement, signed consent form was on the chart. All other bony landmarks were appropriately padded in standard fashion. Local anesthetic was provided at the A1 kathy site of the ring digit for total of 2-1/2 cc of 1% lidocaine with 1:100,000 epinephrine. Longitudinal incision was made over the A1 kathy. Blunt dissection was taken down to the flexor apparatus. Crile retractors were used to protect the radial and ulnar neurovascular bundles. Under direct visualization, the A1 kathy of the ring digit was released. There was synovitis at the location and a partial synovectomy was performed. Littler scissors were used to release slightly distal and proximal to the A1 kathy. Copious irrigation was made and the surgical site was closed with 3-0 nylons for total of 2. Xeroform gauze, an eye patch bandage, light cling and Coban was used for final bandages. There were no complications during the procedure. Patient was safely was awoken and transferred to the postanesthetic care unit in stable condition. PRE-OP/PRE-PROCEDURE DIAGNOSIS: left , ring, trigger finger. POST-OP/POST-PROCEDURE DIAGNOSIS: Same as Preop ESTIMATED BLOOD LOSS: 0 ml SPECIMENS: None IMPLANTABLE DEVICES: NONE DRAINS: None COMPLICATIONS: None CLOSURE TECHNIQUE: Primary PARTICIPATION IN SURGERY/PROCEDURE: I/primary surgeon/proceduralist performed the entire procedure. Patient was accompanied to the next level of care by a licensed practitioner from the surgical team pending completion of this brief op note (or operative note) SIGNATURE: Abhishek Yi MD PATIENT NAME: Tashia Fernandez DATE: August 09, 2024 TIME: 11:55 AM [facility] HISTORY PHYSICALon HISTORY PHYSICAL HNO ID: [id number] Author: MICHELINE KEYS APRN.CONSTANTINO Service: ? Author Type: Nurse Practitioner Type: H&P Filed: 08/08/2024 10:30 Note Text: [facility] HISTORY AND PHYSICAL EXAMINATION SERVICE DATE: 08/07/2024 SERVICE TIME: 10:28 AM PRIMARY CARE PHYSICIAN: Elisa Starr MD Assessment Patient has the following medical conditions which may affect effie-operative course: Microvascular angina (HCC) Assessment: recently started Ranexa but stopped 2/2 constipation SE per pt 05/27/2024 Dr. Benavides, Cardiology Assessment and Plan: 74 years old female patient with microvascular angina and hypertensive heart disease ASSESSMENT/PLAN: 1. Primary hypertension - ICD9: 401.9, ICD10: I10 (primary diagnosis) - Controlled - Continue current medications - Recommend home blood pressure monitoring, to bring results to next visit - Encouraged sodium restriction, DASH or Mediterranean diet - Recommend regular aerobic exercise 2. Paroxysmal SVT (supraventricular tachycardia) (HCC) - ICD9: 427.0, ICD10: I47.10 Stable paroxysmal supraventricular tachycardia patient on beta-blockers 3. Pure hypercholesterolemia - ICD9: 272.0, ICD10: E78.00 Patient cannot take statin due to severe muscle cramp and side effect of medication 4. Microvascular angina (HCC) - ICD9: 413.9, ICD10: I20.89 Stable microvascular angina limiting patient for any physical activity Will add Ranexa 500 mg twice a day for symptomatic relief Jonna Benavides MD Follow up plannin MONTHS Electronically signed by Jonna Benavides MD on May 27, 2024, 11:49 AM Paroxysmal SVT (supraventricular tachycardia) (HCC) Assessment: controlled on rx HLD (hyperlipidemia) Assessment: diet controlled Primary hypertension Assessment: controlled on rx Last 14 BP Last 14 Encounter BP Readings: Date: BP: 08/07/2024 136/78 06/26/2024 126/70 05/29/2024 138/72 05/27/2024 136/75 03/06/2024 126/74 02/26/2024 150/88 01/03/2024 121/66 12/21/2023 132/78 11/29/2023 132/78 11/27/2023 124/75 07/27/2023 136/70 06/06/2023 140/78 05/29/2023 128/76[recheck[ 04/10/2023 128/76 ASHD (arteriosclerotic heart disease) Assessment: non-obstructing, medically managed, following cardiology Tethered spinal cord (HCC) Assessment: mid-thoracic spine, no surgery indicated per pt at this time Trigeminal neuralgia Assessment: hx, intermittent, no current tx Valvular heart disease Assessment: 1+MVR, trace-1+ TVR, 1+ AVR, trace PVR Recent Results (from the past 53844 hour(s)) ECHO Collection Time: 03/23/23 1:37 PM Impression CONCLUSIONS: - Technically difficult exam due to body habitus. - Exam indication: Syncope - The left ventricle is normal in size. There is mild left ventricular hypertrophy. Left ventricular systolic function is normal. EF = 66 ? 5% (2D biplane) Grade I left ventricular diastolic dysfunction. - The right ventricle is normal in size. Right ventricular systolic function is normal. - The left atrial cavity is mildly dilated. - Exam was compared with the prior CC echocardiographic exam performed on 01/24/2022, no significant change. * * * Final * * * Mild pulmonary hypertension (HCC) Assessment: 03/2023 echo revealed Estimated right ventricular systolic pressure is 36 mmHg consistent with mild pulmonary hypertension. Following cardiology, asymptomatic Hiatal hernia Assessment: present with GERD symptoms Esophageal dysphagia Assessment: chronic, mg bits/extra liquids, evaluated for this 02/26/24 Dr. Kelley Patient is status post EGD with on January 03, 2024. She was noted to have a small hiatal hernia but did this because of esophageal dysphagia.Biopsies of her duodenum were normal stomach showed no signs of H. pylori and biopsies of her esophagus did not show any signs of eosinophils or lymphocytes. Objective:Blood pressure 150/88, pulse 75, temperature 36.5 ?C (97.7 ?F), SpO2 97%. Abdomen is soft and nontender Assessment:Esophageal dysphagia (primary encounter diagnosis) Plan: Patient is get a try to modify how she has been eating and using a little bit more liquids with swallowing. If she continues to have problems we will have to order an esophageal manometry. I will have her follow-up with me on an as-needed basis. Diverticulitis Assessment: recent flare 06/14/24 tx with atb, states all symptoms have resolved Gastroesophageal reflux disease Assessment: controlled on rx, small hiatal hernia present Chronic hypokalemia Assessment: hx, on rx Potassium Date Value Ref Range Status 05/29/2024 4.2 3.7 - 5.1 mmol/L Final Stage 3a chronic kidney disease (HCC) Assessment: Creatinine Date Value Ref Range Status 05/29/2024 1.08 (H) 0.58 - 0.96 mg/dL Final 05/16/2024 0.97 (H) 0.58 - 0.96 mg/dL Final 03/06/2024 1.07 (H) 0.58 - 0 (more content not included)... Normal [facility] Anupama 08-01-2024 [facility] Telephone (ORTHWS) TASHIA FERNANDEZ ([id number]) 1950 F Date Time Provider Department 08/01/24 ABHISHEK YI During your visit today, we recorded the following information about you: Hannah Jaramillo MA 08/01/2024 8:55 AM Signed Patient scheduled for Left ring trigger finger release on 08/09/2024. Surgical request completed. Post op appointments scheduled and mailed to the patient. Hannah Jaramillo MA 08/01/2024 10:51 AM Signed Surgery scheduled as requested. Allergies As of Date: 08/01/2024 Noted Allergy Reaction LIPITOR (ATORVASTATIN CALCIUM) 10/21/2014 14 - Other: See Comments Comments: muscle cramps SPIRONOLACTONE 03/21/2014 14 - Other: See Comments Comments: headache ACEON (PERINDOPRIL ERBUMINE) 11/02/2005 2 - Rash 3 - Cough CODEINE 12/09/2009 5 - Intolerance Comments: Chest pain LISINOPRIL 10/07/2005 3 - Cough Comments: dry hacking cough Date Reviewed: 07/29/2024 Reviewed by: Hannah Jaramillo MA - Fully Assessed Reason for Visit: Schedule Surgery [1330] Primary Visit Diagnosis:Trigger ring finger of left hand [M65.342] Order(s):SURGICAL REQUEST - ELECTIVE (06/2020) [[id number]] Order #: [id number]: 1 Prescriptions as of 08/01/2024 - gabapentin (NEURONTIN) 300 mg capsule Take 1 capsule by mouth daily at bedtime for 90 days. - alendronate (FOSAMAX) 70 mg tablet Take 1 tablet by mouth one time a week. Take with a full glass of water, on an empty stomach; do NOT lie down for 30minutes. - potassium chloride ER (KLOR-CON) 20 mEq tablet Take 2 tablets by mouth two times a day. - ranolazine ER (RANEXA) 500 mg 12 hr tablet Take 1 tablet by mouth two times a day. - amLODIPine (NORVASC) 5 mg tablet Take 1 tablet by mouth once daily. - amLODIPine (NORVASC) 2.5 mg tablet Take one tablet daily in addition to 5 mg to equal 7.5 mg daily - labetalol (TRANDATE) 200 mg tablet Take 1 tablet by mouth two times a day. - isosorbide mononitrate ER (IMDUR) 30 mg 24 hr tablet Take 1 tablet by mouth once daily. - meclizine (ANTIVERT) 25 mg tab Take 1 tablet by mouth three times a day as needed (vertigo). - levothyroxine (SYNTHROID) 88 mcg tablet Take one tablet daily Monday-Monday and two tablets on Monday - blood sugar diagnostic (BLOOD GLUCOSE TEST) test strip Test blood sugar(s) 1 times daily. Dx: Prediabetes Insulin: No - Lancets lancets Test blood sugar(s) 1 times daily. Dx: Prediabetes Insulin: No - losartan (COZAAR) 100 mg tablet Take 1 tablet by mouth once daily. - polyethylene glycol 3350 17 gram/dose powder Take 17 g by mouth once daily. Dissolve dose in 4 - 8 ounces of liquid and take as directed. - doxylamine succinate (SLEEP AID ORAL) Take by mouth daily at bedtime. - calcium carbonate-Vit D3-minerals (CALTRATE) 600 mg calcium- 400 unit tab Take 2 tablets by mouth once daily. - ondansetron orally disintegrating (ZOFRAN ODT) 4 mg disintegrating tablet Take 1 tablet by mouth every 6 hours as needed for Nausea/Vomiting. - 0.9 % sodium chloride (NACL 0.9%) 0.9% solp Infuse 500 ml IV over [address] - Biotin 2,500 mcg cap Take 1 capsule by mouth once daily. - aspirin, enteric coated (ASPIRIN, ENTERIC COATED) 81 mg EC tablet Take 81 mg by mouth once daily. Meds Comments as of 01/03/2017: Biotin Problem List As Of Date 08/01/2024 Noted Resolved Primary hypertension [I10] Personal history of colonic polyps [Z86.010] 06/02/2021 Postablative hypothyroidism [E89.0] 10/10/2005 Osteoporosis [M81.0] 01/16/2007 GASTRITIS ANTRAL( W/O Hemorrhage) [K29.60] 07/13/2007 11/02/2015 POLYP STOMACH [D13.1] 07/13/2007 12/19/2019 CERVICAL DISC DEGEN [M50.30] 02/11/2009 Degenerative arthritis of knee [M17.9] 05/24/2011 Trigeminal neuralgia [G50.0] 10/11/2011 Inadequate pelvic muscles [R29.898] 01/17/2012 Mixed stress and urge urinary incontinence [N39*02/03/2012 Uterine prolapse [N81.4] 02/03/2012 Cystocele, midline [N81.11] 02/03/2012 Gastroesophageal reflux disease [K21.9] 06/01/2012 Delayed gastric emptying [K30] 07/24/2012 Trochanteric bursitis of left hip [M70.62] 07/24/2012 10/15/2018 Chronic hypokalemia [E87.6] 09/25/2012 Thoracic radiculopathy due to degenerative join*06/09/2014 Tethered spinal cord (HCC) [Q06.8] 11/20/2014 Abdominal pain [R10.9] 11/20/2014 09/01/2016 Poor sleep hygiene [Z72.821] 11/02/2015 Impaired fasting glucose [R73.01] 11/19/2015 Lumbar disc disease with radiculopathy [M51.16] 09/01/2016 Venous insufficiency (chronic) (peripheral) [I8*01/03/2017 Esophageal dysphagia [R13.19] 08/29/2017 History of pancreatitis [Z87.19] 07/12/2018 10/15/2018 History of diverticulitis [Z87.19] 07/12/2018 10/15/2018 Elevated alkaline phosphatase level [R74.8] 07/12/2018 02/17/2019 Chronic left shoulder pain [M25.512, G89.29] 08/28/2018 Lung nodule < 6cm on CT [[id number]] 10/15/2018 Stage 3a chronic kidney disease (HCC) [N18.31] (more content not included)... Normal [facility] CNOVon 07-29-2024 CNOV Office Visit (ORTHWS ) TASHIA FERNANDEZ ([id number]) 1950 F Date Time Provider Department 07/29/24 10:30 AM ABHISHEK YI During your visit today, we recorded the following information about you: Abhishek Yi MD 08/09/2024 10:23 AM Signed Abhishek Yi MD Department of Orthopaedics Orthopaedics [address] [facility] [address] Dept: [phone] Dept July 29, 2024 CHIEF COMPLAINT: Follow Up of the Left Ring Finger and 12 weeks post visit with Anju Left ring trigger finger (with injection given) HPI Patient here for follow up left ring finger. Patient was given an injection by Anju and she has a knot where she had the injection. She has nerve pain that is burning in her index and small fingers. Her ring finger is still locking. Continuing to wear oval 8 finger splint at bedtime. Taking Tylenol for the pain and helps sometimes. ASSESSMENT: M65.342 Trigger ring finger of left hand (primary encounter diagnosis) PLAN: we discussed treatment options and after reviewed the risks, benefits, alternatives and potential complications, she wishes to proceed with surgical release. OBJECTIVE: Ms. Tashia Fernandez is a pleasant 74 year old in no apparent distress. Gen:There were no vitals taken for this visit. nl development, non obese, no deformities ENT: Normocephalic, normal hearing, moist mucosa CV: Pulses:Radial= 2+ and symmetric, capillary refill < 2 secs, no peripheral edema/varicosities Skin: no rash, bruising or lesions. Good turgor. Psych: cooperative and appropriate, alert and oriented x 3, good mood and affect. Musculoskeletal: TTP at the A1 of the ring finger. Active locking and catching of the joint. Supporting Subjective Information Below: Past Surgical History: PAST SURGICAL HISTORY Procedure Laterality Date COLONOSCOPY FLX DX W/COLLJ SPEC WHEN PFRMD 12/2018 Colonoscopy COLONOSCOPY FLX DX W/COLLJ SPEC WHEN PFRMD 07/13/2007 Lax colon COLONOSCOPY FLX DX W/COLLJ SPEC WHEN PFRMD 03/26/2014 Colonoscopy COLONOSCOPY FLX DX W/COLLJ SPEC WHEN PFRMD 12/2018 OAM-Qxkensn-aefpml 10 years COLONOSCOPY GEN ANES 04/28/2021 DECOMPRESSION PLANTAR DIGITAL NERVE 1999 heel spur/ plantar fasciitis repair Rt EGD 06/02/2021 EGD TRANSORAL BIOPSY SINGLE/MULTIPLE 07/13/2007 Gastritis, fundic gland polyps EGD W/O [facility] SPEC VARICIES INJ 01/03/2024 Dr. Kelley ESOPHAGOGASTRODUODENOSCOPY TRANSORAL DIAGNOSTIC 03/26/2014 EGD EYE SURGERY HX LAPAROSCOPY SURG CHOLECYSTECTOMY Cholecystectomy, lap LIG/TRNSXJ FLP TUBE ABDL/VAG APPR UNI/BI LIGATE FALLOPIAN TUBE NEUROPLASTY AND/TRANSPOS MEDIAN NRV CARPAL TUNNE Carpal tunnel decomp bilateral OPEN REPAIR OF ROTATOR CUFF ACUTE 1992 Rotator cuff repair, right STRESS TEST,COMPLETE_*FL Medications: Current Outpatient Medications Medication Sig alendronate (FOSAMAX) 70 mg tablet Take 1 tablet by mouth one time a week. Take with a full glass of water, on an empty stomach; do NOT lie down for 30minutes. potassium chloride ER (KLOR-CON) 20 mEq tablet Take 2 tablets by mouth two times a day. amLODIPine (NORVASC) 5 mg tablet Take 1 tablet by mouth once daily. gabapentin (NEURONTIN) 300 mg capsule Take 1 capsule by mouth daily at bedtime for 90 days. amLODIPine (NORVASC) 2.5 mg tablet Take one tablet daily in addition to 5 mg to equal 7.5 mg daily labetalol (TRANDATE) 200 mg tablet Take 1 tablet by mouth two times a day. isosorbide mononitrate ER (IMDUR) 30 mg 24 hr tablet Take 1 tablet by mouth once daily. meclizine (ANTIVERT) 25 mg tab Take 1 tablet by mouth three times a day as needed (vertigo). levothyroxine (SYNTHROID) 88 mcg tablet Take one tablet daily Monday-Monday and two tablets on Monday blood sugar diagnostic (BLOOD GLUCOSE TEST) test strip Test blood sugar(s) 1 times daily. Dx: Prediabetes Insulin: No Lancets lancets Test blood sugar(s) 1 times daily. Dx: Prediabetes Insulin: No losartan (COZAAR) 100 mg tablet Take 1 tablet by mouth once daily. polyethylene glycol 3350 17 gram/dose powder Take 17 g by mouth once daily. Dissolve dose in 4 - 8 ounces of liquid and take as directed. doxylamine succinate (SLEEP AID ORAL) Take by mouth daily at bedtime. calcium carbonate-Vit D3-minerals (CALTRATE) 600 mg calcium- 400 unit tab Take 2 tablets by mouth once daily. ondansetron orally disintegrating (ZOFRAN ODT) 4 mg disintegrating tablet Take 1 tablet by mouth every 6 hours as needed for Nausea/Vomiting. Biotin 2,500 mcg cap Take 1 capsule by mouth once daily. aspirin, enteric coated (ASPIRIN, ENTERIC COATED) 81 mg EC tablet Take 81 mg by mouth once daily. ranolazine ER (RANEXA) 500 mg 12 hr tablet Take 1 tablet by mouth two times a day. (Patient not taking: Reported on 07/29/2024) 0.9 % sodium chloride (NACL 0.9%) 0.9% solp Infuse 50 (more content not included)... Normal [facility] TASHIA FERNANDEZ ([id number]) 1950 F Date Time Provider Department 07/23/24 [facility] During your visit today, we recorded the following information about you: Gia Wilson LPN 07/23/2024 10:27 AM Signed ----- Message from Elisa Starr MD sent at 07/23/2024 9:16 AM EDT ----- Bone density scan consistent with osteoporosis. Recommend starting her on Fosamax weekly to improve bone density and reduce her risk for fractures. Will call in rx if agreeable. Gia Wilson LPN 07/23/2024 10:28 AM Signed Spoke with pt message below given. Pt willing to start on Fosamax. Asking this be sent to [facility] for (3) month supply. EYAL Reynolds Christopher B, MD 07/23/2024 10:56 AM Signed Rx sent. Recheck DXA in 2 years. Anusha Frey RN 07/23/2024 11:42 AM Signed Pt called and is notified of providers message and instructions. Pt voices understanding. Anusha Frey RN Allergies As of Date: 07/23/2024 Noted Allergy Reaction LIPITOR (ATORVASTATIN CALCIUM) 10/21/2014 14 - Other: See Comments Comments: muscle cramps SPIRONOLACTONE 03/21/2014 14 - Other: See Comments Comments: headache ACEON (PERINDOPRIL ERBUMINE) 11/02/2005 2 - Rash 3 - Cough CODEINE 12/09/2009 5 - Intolerance Comments: Chest pain LISINOPRIL 10/07/2005 3 - Cough Comments: dry hacking cough Date Reviewed: 06/26/2024 Reviewed by: Vangie Gonzalez LPN - Fully Assessed Reason for Visit: Results [95] Order(s):alendronate (FOSAMAX) 70 mg tabletTake 1 tablet by mouth one time a week. Take with a full glass of water, on an empty stomach; do NOT lie down for 30minutes.Disp: 12 tabletRfl: 3 Prescriptions as of 07/23/2024 - alendronate (FOSAMAX) 70 mg tablet Take 1 tablet by mouth one time a week. Take with a full glass of water, on an empty stomach; do NOT lie down for 30minutes. - potassium chloride ER (KLOR-CON) 20 mEq tablet Take 2 tablets by mouth two times a day. - ranolazine ER (RANEXA) 500 mg 12 hr tablet Take 1 tablet by mouth two times a day. - amLODIPine (NORVASC) 5 mg tablet Take 1 tablet by mouth once daily. - gabapentin (NEURONTIN) 300 mg capsule Take 1 capsule by mouth daily at bedtime for 90 days. - amLODIPine (NORVASC) 2.5 mg tablet Take one tablet daily in addition to 5 mg to equal 7.5 mg daily - labetalol (TRANDATE) 200 mg tablet Take 1 tablet by mouth two times a day. - isosorbide mononitrate ER (IMDUR) 30 mg 24 hr tablet Take 1 tablet by mouth once daily. - meclizine (ANTIVERT) 25 mg tab Take 1 tablet by mouth three times a day as needed (vertigo). - levothyroxine (SYNTHROID) 88 mcg tablet Take one tablet daily Monday-Monday and two tablets on Monday - blood sugar diagnostic (BLOOD GLUCOSE TEST) test strip Test blood sugar(s) 1 times daily. Dx: Prediabetes Insulin: No - Lancets lancets Test blood sugar(s) 1 times daily. Dx: Prediabetes Insulin: No - losartan (COZAAR) 100 mg tablet Take 1 tablet by mouth once daily. - polyethylene glycol 3350 17 gram/dose powder Take 17 g by mouth once daily. Dissolve dose in 4 - 8 ounces of liquid and take as directed. - doxylamine succinate (SLEEP AID ORAL) Take by mouth daily at bedtime. - calcium carbonate-Vit D3-minerals (CALTRATE) 600 mg calcium- 400 unit tab Take 2 tablets by mouth once daily. - ondansetron orally disintegrating (ZOFRAN ODT) 4 mg disintegrating tablet Take 1 tablet by mouth every 6 hours as needed for Nausea/Vomiting. - 0.9 % sodium chloride (NACL 0.9%) 0.9% solp Infuse 500 ml IV over [address] - Biotin 2,500 mcg cap Take 1 capsule by mouth once daily. - aspirin, enteric coated (ASPIRIN, ENTERIC COATED) 81 mg EC tablet Take 81 mg by mouth once daily. Meds Comments as of 01/03/2017: Biotin Problem List As Of Date 07/23/2024 Noted Resolved Primary hypertension [I10] Personal history of colonic polyps [Z86.010] 06/02/2021 Postablative hypothyroidism [E89.0] 10/10/2005 Osteoporosis [M81.0] 01/16/2007 GASTRITIS ANTRAL( W/O Hemorrhage) [K29.60] 07/13/2007 11/02/2015 POLYP STOMACH [D13.1] 07/13/2007 12/19/2019 CERVICAL DISC DEGEN [M50.30] 02/11/2009 Degenerative arthritis of knee [M17.9] 05/24/2011 Trigeminal neuralgia [G50.0] 10/11/2011 Inadequate pelvic muscles [R29.898] 01/17/2012 Mixed stress and urge urinary incontinence [N39*02/03/2012 Uterine prolapse [N81.4] 02/03/2012 Cystocele, midline [N81.11] 02/03/2012 Gastroesophageal reflux disease [K21.9] 06/01/2012 Delayed gastric emptying [K30] 07/24/2012 Trochanteric bursitis of left hip [M70.62] 07/24/2012 10/15/2018 Chronic hypokalemia [E87.6] 09/25/2012 Thoracic radiculopathy due to degenerative join*06/09/2014 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 Normal [facility] BD DXA - AXIAL SKELETONon BD DXA - AXIAL SKELETON * * *Final Report* * * DATE OF EXAM: Jul 22 2024 8:07AM WRB 0804 - BD DXA - AXIAL SKELETON / PROCEDURE REASON: Age-related osteoporosis without current pathological fracture * * * * Physician Interpretation * * * * EXAMINATION: DXA BONE DENSITOMETRY BD DXA - AXIAL SKELETON, BD DXA TRABECLR BONE SCORE (TBS) PATIENT DEMOGRAPHICS: Age: 74 years, Gender: Female SCANNER INFORMATION: DXA Model: [employer] - [employer] C [id number] Date Scanned: 07/22/2024 8:07 AM CLINICAL HISTORY: DIAGNOSTIC Age-related osteoporosis without current pathological fracture . RISK FACTORS FOR OSTEOPOROSIS AND ASSOCIATED FRACTURES REPORTED BY THIS PATIENT: Please refer to Bone Health Questionnaire in the EMR CURRENT THERAPY: Please refer to Bone Health Questionnaire in the EMR TECHNICAL LIMITATIONS: None RESULTS: Lumbar spine (L1, L2, L3, L4): 0.782 g/cm2, T-score -2.4, Z-score 0.1 Lumbar spine: 2021: 0.791 g/cm2 No statistically significant change Right Femoral Neck: 0.398 g/cm2, T-score -4.1, Z-score -1.9 Right Femoral Neck: 2021: 0.436 g/cm2 Statistically significant decrease Right Total Hip: 0.752 g/cm2, T-score -1.6, Z-score 0.3 Right Total Hip: 2021: 0.732 g/cm2 No statistically significant change Left Femoral Neck: 0.521 g/cm2, T-score -3.0, Z-score -0.8 Left Femoral Neck: 2021: 0.450 g/cm2 Statistically significant increase Left Total Hip: 0.714 g/cm2, T-score -1.9, Z-score 0.0 Left Total Hip: 2021: 0.725 g/cm2 No statistically significant change CHANGE IS STATISTICALLY SIGNIFICANT IN THE SPINE OR HIP IF GREATER THAN OR EQUAL TO 0.04 g/cm2 VERTEBRAL FRACTURE ASSESSMENT Not performed. TRABECULAR BONE ASSESSMENT TBS score: 0.907 Bone micro-architecture: Degraded (< or = 1.230) IMPRESSION: THE LOWEST T-SCORE IS -4.1 IN THE RIGHT HIP 1) DIAGNOSIS (based on BMD alone): OSTEOPOROSIS Caution: Medical conditions other than osteoporosis may cause low bone density, such as osteomalacia or renal osteodystrophy. Clinical correlation is necessary. 2) FRACTURE RISK (Based on TBS adjusted FRAX): 10-year absolute fracture risk: - major osteoporotic fracture = 65 % - hip fracture = 51 % - A diagnosis of Osteoporosis, a 10 year probability of hip fracture greater than or equal to 3% or a 10 year probability of any major osteoporosis-related fracture greater than or equal to 20% should be considered for treatment. - DXA scanner generated FRAX calculations may slightly differ from online FRAX calculations due to differences in software versions. - All recommendations and calculations are to be considered as guidelines and should not replace sound clinical judgement - Caution: Fracture risk may be increased independent of BMD in patients with corticosteroid use, age greater than 65 years, or a history of prior fragility fracture. RECOMMENDATIONS: Follow-up in 2 years or as clinically indicated. Patients that are taking corticosteroids, are transplant recipients or have hyperparathyroidism should have annual follow-up. Follow-up scans should always be done on the same machine for accurate comparison. FOR MORE INFORMATION ABOUT DIAGNOSIS AND TREATMENT: [facility] Osteoporosis and Metabolic Bone Disease:? www.ccf.org/arthritis/osteo National Osteoporosis Foundation:? www.nof.org International Society of Clinical Densitometry www.iscd.org [employer] Cart Operator: LUIS ENRIQUE Transcribe Date/Time: Jul 22 2024 2:03P Dictated by : CARLIE BURRELL MD This examination was interpreted and the report reviewed and electronically signed by: CARLIE BURRELL MD on Jul 22 2024 2:06PM EST [id number] -4.1 Normal [facility] BD DXA TRABECLR BONE SCORE ( TBS)on 07-22-2024 BD DXA TRABECLR BONE SCORE (TBS) * * *Final Report* * * DATE OF EXAM: Jul 22 2024 8:07AM WRB 0801 - BD DXA TRABECLR BONE SCORE (TBS) / PROCEDURE REASON: Age-related osteoporosis without current pathological fracture * * * * Physician Interpretation * * * * EXAMINATION: DXA BONE DENSITOMETRY BD DXA - AXIAL SKELETON, BD DXA TRABECLR BONE SCORE (TBS) PATIENT DEMOGRAPHICS: Age: 74 years, Gender: Female SCANNER INFORMATION: DXA Model: [employer] - [employer] C [id number] Date Scanned: 07/22/2024 8:07 AM CLINICAL HISTORY: DIAGNOSTIC Age-related osteoporosis without current pathological fracture . RISK FACTORS FOR OSTEOPOROSIS AND ASSOCIATED FRACTURES REPORTED BY THIS PATIENT: Please refer to Bone Health Questionnaire in the EMR CURRENT THERAPY: Please refer to Bone Health Questionnaire in the EMR TECHNICAL LIMITATIONS: None RESULTS: Lumbar spine (L1, L2, L3, L4): 0.782 g/cm2, T-score -2.4, Z-score 0.1 Lumbar spine: 2021: 0.791 g/cm2 No statistically significant change Right Femoral Neck: 0.398 g/cm2, T-score -4.1, Z-score -1.9 Right Femoral Neck: 2021: 0.436 g/cm2 Statistically significant decrease Right Total Hip: 0.752 g/cm2, T-score -1.6, Z-score 0.3 Right Total Hip: 2021: 0.732 g/cm2 No statistically significant change Left Femoral Neck: 0.521 g/cm2, T-score -3.0, Z-score -0.8 Left Femoral Neck: 2021: 0.450 g/cm2 Statistically significant increase Left Total Hip: 0.714 g/cm2, T-score -1.9, Z-score 0.0 Left Total Hip: 2021: 0.725 g/cm2 No statistically significant change CHANGE IS STATISTICALLY SIGNIFICANT IN THE SPINE OR HIP IF GREATER THAN OR EQUAL TO 0.04 g/cm2 VERTEBRAL FRACTURE ASSESSMENT Not performed. TRABECULAR BONE ASSESSMENT TBS score: 0.907 Bone micro-architecture: Degraded (< or = 1.230) IMPRESSION: THE LOWEST T-SCORE IS -4.1 IN THE RIGHT HIP 1) DIAGNOSIS (based on BMD alone): OSTEOPOROSIS Caution: Medical conditions other than osteoporosis may cause low bone density, such as osteomalacia or renal osteodystrophy. Clinical correlation is necessary. 2) FRACTURE RISK (Based on TBS adjusted FRAX): 10-year absolute fracture risk: - major osteoporotic fracture = 65 % - hip fracture = 51 % - A diagnosis of Osteoporosis, a 10 year probability of hip fracture greater than or equal to 3% or a 10 year probability of any major osteoporosis-related fracture greater than or equal to 20% should be considered for treatment. - DXA scanner generated FRAX calculations may slightly differ from online FRAX calculations due to differences in software versions. - All recommendations and calculations are to be considered as guidelines and should not replace sound clinical judgement - Caution: Fracture risk may be increased independent of BMD in patients with corticosteroid use, age greater than 65 years, or a history of prior fragility fracture. RECOMMENDATIONS: Follow-up in 2 years or as clinically indicated. Patients that are taking corticosteroids, are transplant recipients or have hyperparathyroidism should have annual follow-up. Follow-up scans should always be done on the same machine for accurate comparison. FOR MORE INFORMATION ABOUT DIAGNOSIS AND TREATMENT: [facility] for Osteoporosis and Metabolic Bone Disease:? www.ccf.org/arthritis/osteo National Osteoporosis Foundation:? www.nof.org International Society of Clinical Densitometry www.iscd.org [employer] Cart Operator: LUIS ENRIQUE Transcribe Date/Time: Jul 22 2024 2:03P Dictated by : CARLIE BURRELL MD This examination was interpreted and the report reviewed and electronically signed by: CARLIE BURRELL MD on Jul 22 2024 2:06PM EST [id number] -4.1 Normal [facility] DXA Femur [T-score] Ildefonso tovar 07-22-2024 * * *Final Report* * * DATE OF EXAM: Jul 22 2024 8:07AM WRB 0801 - BD DXA TRABECLR BONE SCORE (TBS) / PROCEDURE REASON: Age-related osteoporosis without current pathological fracture * * * * Physician Interpretation * * * * EXAMINATION: DXA BONE DENSITOMETRY BD DXA - AXIAL SKELETON, BD DXA TRABECLR BONE SCORE (TBS) PATIENT DEMOGRAPHICS: Age: 74 years, Gender: Female SCANNER INFORMATION: DXA Model: [employer] - [employer] C [id number] Date Scanned: 07/22/2024 8:07 AM CLINICAL HISTORY: DIAGNOSTIC Age-related osteoporosis without current pathological fracture . RISK FACTORS FOR OSTEOPOROSIS AND ASSOCIATED FRACTURES REPORTED BY THIS PATIENT: Please refer to Bone Health Questionnaire in the EMR CURRENT THERAPY: Please refer to Bone Health Questionnaire in the EMR TECHNICAL LIMITATIONS: None RESULTS: Lumbar spine (L1, L2, L3, L4): 0.782 g/cm2, T-score -2.4, Z-score 0.1 Lumbar spine: 2021: 0.791 g/cm2 No statistically significant change Right Femoral Neck: 0.398 g/cm2, T-score -4.1, Z-score -1.9 Right Femoral Neck: 2021: 0.436 g/cm2 Statistically significant decrease Right Total Hip: 0.752 g/cm2, T-score -1.6, Z-score 0.3 Right Total Hip: 2021: 0.732 g/cm2 No statistically significant change Left Femoral Neck: 0.521 g/cm2, T-score -3.0, Z-score -0.8 Left Femoral Neck: 2021: 0.450 g/cm2 Statistically significant increase Left Total Hip: 0.714 g/cm2, T-score -1.9, Z-score 0.0 Left Total Hip: 2021: 0.725 g/cm2 No statistically significant change CHANGE IS STATISTICALLY SIGNIFICANT IN THE SPINE OR HIP IF GREATER THAN OR EQUAL TO 0.04 g/cm2 VERTEBRAL FRACTURE ASSESSMENT Not performed. TRABECULAR BONE ASSESSMENT TBS score: 0.907 Bone micro-architecture: Degraded (< or = 1.230) DIVISION OF RADIOLOGY Provider, [facility] - 07/22/2024 * * *Final Report* * * DATE OF EXAM: Jul 22 2024 8:07AM WRB 0801 - BD DXA TRABECLR BONE SCORE (TBS) / PROCEDURE REASON: Age-related osteoporosis without current pathological fracture * * * * Physician Interpretation * * * * EXAMINATION: DXA BONE DENSITOMETRY BD DXA - AXIAL SKELETON, BD DXA TRABECLR BONE SCORE (TBS) PATIENT DEMOGRAPHICS: Age: 74 years, Gender: Female SCANNER INFORMATION: DXA Model: [employer] - [employer] C [id number] Date Scanned: 07/22/2024 8:07 AM CLINICAL HISTORY: DIAGNOSTIC Age-related osteoporosis without current pathological fracture . RISK FACTORS FOR OSTEOPOROSIS AND ASSOCIATED FRACTURES REPORTED BY THIS PATIENT: Please refer to Bone Health Questionnaire in the EMR CURRENT THERAPY: Please refer to Bone Health Questionnaire in the EMR TECHNICAL LIMITATIONS: None RESULTS: Lumbar spine (L1, L2, L3, L4): 0.782 g/cm2, T-score -2.4, Z-score 0.1 Lumbar spine: 2021: 0.791 g/cm2 No statistically significant change Right Femoral Neck: 0.398 g/cm2, T-score -4.1, Z-score -1.9 Right Femoral Neck: 2021: 0.436 g/cm2 Statistically significant decrease Right Total Hip: 0.752 g/cm2, T-score -1.6, Z-score 0.3 Right Total Hip: 2021: 0.732 g/cm2 No statistically significant change Left Femoral Neck: 0.521 g/cm2, T-score -3.0, Z-score -0.8 Left Femoral Neck: 2021: 0.450 g/cm2 Statistically significant increase Left Total Hip: 0.714 g/cm2, T-score -1.9, Z-score 0.0 Left Total Hip: 2021: 0.725 g/cm2 No statistically significant change CHANGE IS STATISTICALLY SIGNIFICANT IN THE SPINE OR HIP IF GREATER THAN OR EQUAL TO 0.04 g/cm2 VERTEBRAL FRACTURE ASSESSMENT Not performed. TRABECULAR BONE ASSESSMENT TBS score: 0.907 Bone micro-architecture: Degraded (< or = 1.230) IMPRESSION IMPRESSION: THE LOWEST T-SCORE IS -4.1 IN THE RIGHT HIP 1) DIAGNOSIS (based on BMD alone): OSTEOPOROSIS Caution: Medical conditions other than osteoporosis may cause low bone density, such as osteomalacia or renal osteodystrophy. Clinical correlation is necessary. 2) FRACTURE RISK (Based on TBS adjusted FRAX): 10-year absolute fracture risk: - major osteoporotic fracture = 65 % - hip fracture = 51 % - A diagnosis of Osteoporosis, a 10 year probability of hip fracture greater than or equal to 3% or a 10 year probability of any major osteoporosis-related fracture greater than or equal to 20% should be considered for treatment. - DXA scanner generated FRAX calculations may slightly differ from online FRAX calculations due to differences in software versions. - All recommendations and calculations are to be considered as guidelines and should not replace sound clinical judgement - Caution: Fracture risk may be increased independent of BMD in patients with corticosteroid use, age greater than 65 years, or a history of prior fragility fracture. RECOMMENDATIONS: Follow-up in 2 years or as clinically indicated. Patients that are taking corticosteroids, are transplant recipients or have hyperparathyroidism should have annual follow-up. Follow-up scans should always be done on the same machine for accurate comparison. FOR MORE INFORMATION ABOUT DIAGNOSIS AND TREATMENT: [facility] Center for Osteoporosis and Metabolic Bone Disease:? www.ccf.org/arthritis/osteo National Osteoporosis Foundation:? www.nof.org International Society of Clinical Densitometry www.iscd.org [employer] Operator: LUIS ENRIQUE Transcribe Date/Time: Jul 22 2024 2:03P Dictated by : CARLIE BURRELL MD This examination was interpreted and the report reviewed and electronically signed by: CARLIE BURRELL MD on Jul 22 2024 2:06PM EST [facility] DXA Skeletal system.axial Vi ews for bone densityon 07-22-2024 * * *Final Report* * * DATE OF EXAM: Jul 22 2024 8:07AM WRB 0804 - BD DXA - AXIAL SKELETON / PROCEDURE REASON: Age-related osteoporosis without current pathological fracture * * * * Physician Interpretation * * * * EXAMINATION: DXA BONE DENSITOMETRY BD DXA - AXIAL SKELETON, BD DXA TRABECLR BONE SCORE (TBS) PATIENT DEMOGRAPHICS: Age: 74 years, Gender: Female SCANNER INFORMATION: DXA Model: [employer] - [employer] C [id number] Date Scanned: 07/22/2024 8:07 AM CLINICAL HISTORY: DIAGNOSTIC Age-related osteoporosis without current pathological fracture . RISK FACTORS FOR OSTEOPOROSIS AND ASSOCIATED FRACTURES REPORTED BY THIS PATIENT: Please refer to Bone Health Questionnaire in the EMR CURRENT THERAPY: Please refer to Bone Health Questionnaire in the EMR TECHNICAL LIMITATIONS: None RESULTS: Lumbar spine (L1, L2, L3, L4): 0.782 g/cm2, T-score -2.4, Z-score 0.1 Lumbar spine: 2021: 0.791 g/cm2 No statistically significant change Right Femoral Neck: 0.398 g/cm2, T-score -4.1, Z-score -1.9 Right Femoral Neck: 2021: 0.436 g/cm2 Statistically significant decrease Right Total Hip: 0.752 g/cm2, T-score -1.6, Z-score 0.3 Right Total Hip: 2021: 0.732 g/cm2 No statistically significant change Left Femoral Neck: 0.521 g/cm2, T-score -3.0, Z-score -0.8 Left Femoral Neck: 2021: 0.450 g/cm2 Statistically significant increase Left Total Hip: 0.714 g/cm2, T-score -1.9, Z-score 0.0 Left Total Hip: 2021: 0.725 g/cm2 No statistically significant change CHANGE IS STATISTICALLY SIGNIFICANT IN THE SPINE OR HIP IF GREATER THAN OR EQUAL TO 0.04 g/cm2 VERTEBRAL FRACTURE ASSESSMENT Not performed. TRABECULAR BONE ASSESSMENT TBS score: 0.907 Bone micro-architecture: Degraded (< or = 1.230) DIVISION OF RADIOLOGY Provider, [facility] - 07/22/2024 * * *Final Report* * * DATE OF EXAM: Jul 22 2024 8:07AM [facility] 0804 - DXA - AXIAL SKELETON / PROCEDURE REASON: Age-related osteoporosis without current pathological fracture * * * * Physician Interpretation * * * * EXAMINATION: DXA BONE DENSITOMETRY BD DXA - AXIAL SKELETON, BD DXA TRABECLR BONE SCORE (TBS) PATIENT DEMOGRAPHICS: Age: 74 years, Gender: Female SCANNER INFORMATION: DXA Model: [employer] C [id number] Date Scanned: 07/22/2024 8:07 AM CLINICAL HISTORY: DIAGNOSTIC Age-related osteoporosis without current pathological fracture . RISK FACTORS FOR OSTEOPOROSIS AND ASSOCIATED FRACTURES REPORTED BY THIS PATIENT: Please refer to Bone Health Questionnaire in the EMR CURRENT THERAPY: Please refer to Bone Health Questionnaire in the EMR TECHNICAL LIMITATIONS: None RESULTS: Lumbar spine (L1, L2, L3, L4): 0.782 g/cm2, T-score -2.4, Z-score 0.1 Lumbar spine: 2021: 0.791 g/cm2 No statistically significant change Right Femoral Neck: 0.398 g/cm2, T-score -4.1, Z-score -1.9 Right Femoral Neck: 2021: 0.436 g/cm2 Statistically significant decrease Right Total Hip: 0.752 g/cm2, T-score -1.6, Z-score 0.3 Right Total Hip: 2021: 0.732 g/cm2 No statistically significant change Left Femoral Neck: 0.521 g/cm2, T-score -3.0, Z-score -0.8 Left Femoral Neck: 2021: 0.450 g/cm2 Statistically significant increase Left Total Hip: 0.714 g/cm2, T-score -1.9, Z-score 0.0 Left Total Hip: 2021: 0.725 g/cm2 No statistically significant change CHANGE IS STATISTICALLY SIGNIFICANT IN THE SPINE OR HIP IF GREATER THAN OR EQUAL TO 0.04 g/cm2 VERTEBRAL FRACTURE ASSESSMENT Not performed. TRABECULAR BONE ASSESSMENT TBS score: 0.907 Bone micro-architecture: Degraded (< or = 1.230) IMPRESSION IMPRESSION: THE LOWEST T-SCORE IS -4.1 IN THE RIGHT HIP 1) DIAGNOSIS (based on BMD alone): OSTEOPOROSIS Caution: Medical conditions other than osteoporosis may cause low bone density, such as osteomalacia or renal osteodystrophy. Clinical correlation is necessary. 2) FRACTURE RISK (Based on TBS adjusted FRAX): 10-year absolute fracture risk: - major osteoporotic fracture = 65 % - hip fracture = 51 % - A diagnosis of Osteoporosis, a 10 year probability of hip fracture greater than or equal to 3% or a 10 year probability of any major osteoporosis-related fracture greater than or equal to 20% should be considered for treatment. - DXA scanner generated FRAX calculations may slightly differ from online FRAX calculations due to differences in software versions. - All recommendations and calculations are to be considered as guidelines and should not replace sound clinical judgement - Caution: Fracture risk may be increased independent of BMD in patients with corticosteroid use, age greater than 65 years, or a history of prior fragility fracture. RECOMMENDATIONS: Follow-up in 2 years or as clinically indicated. Patients that are taking corticosteroids, are transplant recipients or have hyperparathyroidism should have annual follow-up. Follow-up scans should always be done on the same machine for accurate comparison. FOR MORE INFORMATION ABOUT DIAGNOSIS AND TREATMENT: [facility] Center for Osteoporosis and Metabolic Bone Disease:? www.ccf.org/arthritis/osteo National Osteoporosis Foundation:? www.nof.org International Society of Clinical Densitometry www.iscd.org [employer] Cart Operator: PSCB Transcribe Date/Time: Jul 22 2024 2:03P Dictated by : CARLIE BURRELL MD This examination was interpreted and the report reviewed and electronically signed by: CARLIE BURRELL MD on Jul 22 2024 2:06PM EST [facility] No Panel InformationOrdered By: Cc Provider on 07-22-2024 LOWEST T-SCORE -4.1 [facility] No Panel Informationon 07-22 IMPRESSION: THE LOWEST T-SCORE IS -4.1 IN THE RIGHT HIP 1) DIAGNOSIS (based on BMD alone): OSTEOPOROSIS Caution: Medical conditions other than osteoporosis may cause low bone density, such as osteomalacia or renal osteodystrophy. Clinical correlation is necessary. 2) FRACTURE RISK (Based on TBS adjusted FRAX): 10-year absolute fracture risk: - major osteoporotic fracture = 65 % - hip fracture = 51 % - A diagnosis of Osteoporosis, a 10 year probability of hip fracture greater than or equal to 3% or a 10 year probability of any major osteoporosis-related fracture greater than or equal to 20% should be considered for treatment. - DXA scanner generated FRAX calculations may slightly differ from online FRAX calculations due to differences in software versions. - All recommendations and calculations are to be considered as guidelines and should not replace sound clinical judgement - Caution: Fracture risk may be increased independent of BMD in patients with corticosteroid use, age greater than 65 years, or a history of prior fragility fracture. RECOMMENDATIONS: Follow-up in 2 years or as clinically indicated. Patients that are taking corticosteroids, are transplant recipients or have hyperparathyroidism should have annual follow-up. Follow-up scans should always be done on the same machine for accurate comparison. FOR MORE INFORMATION ABOUT DIAGNOSIS AND TREATMENT: [facility] Center for Osteoporosis and Metabolic Bone Disease:? www.ccf.org/arthritis/osteo National Osteoporosis Foundation:? www.nof.org International Society of Clinical Densitometry www.iscd.org [employer] Operator: LUIS ENRIQUE Transcribe Date/Time: Jul 22 2024 2:03P Dictated by : CARLIE BURRELL MD This examination was interpreted and the report reviewed and electronically signed by: CARLIE BURRELL MD on Jul 22 2024 2:06PM EST DIVISION OF RADIOLOGY Radiology Study observation (narrative) [facility] Abdomen/Pelvis without Conto n 06-14-2024 Abdomen/Pelvis without Cont [facility] Imaging Services [address] [place], [place] [address] Abdomen/Pelvis without Cont MR#: [id number] Acct: [id number] Name: TASHIA FERNANDEZ Rep #: [id number] : 1950 F 74 From: Lynsey Cordon PCP: Dr. Evangelist Starr MD Status: REG ER Study: Abdomen/Pelvis without Cont Date of Exam: 07/30 Exam# [id number] Ordering Dr: Axel Mireles DO :[id number] EXAM: CT Abdomen And Pelvis W/O Contrast Injection HISTORY: LLQ pain -- hx ckd, hx diverticulitis TECHNIQUE: Routine protocol CT abdomen and pelvis. IV Contrast: None.. Oral contrast: None. RADIATION DOSAGE (If Supplied By Facility): CTDIvol = ( 14.76 ) mGy, DLP = ( 686.05 ) mGycm Individualized dose optimization techniques were used for this CT. COMPARISON: CT abdomen and pelvis 07/28/2021. LIMITATIONS: None. FINDINGS: LOWER CHEST: Reticular opacities in the lower lungs likely scarring. Moderate sized hiatal hernia. LIVER: Grossly unremarkable. GALLBLADDER AND BILIARY TREE: The gallbladder is surgically absent. PANCREAS: Grossly unremarkable. SPLEEN: Small calcifications previous granulomatous process. ADRENAL GLANDS: Grossly unremarkable. KIDNEYS AND URETERS: No calculi demonstrated. No hydronephrosis. PERITONEUM: No free air. No free fluid. BOWEL: Moderate sized hiatal hernia with approximately one half of the stomach in the lower chest, similar to the prior study. Mild wall thickening of the sigmoid colon with adjacent stranding. Diverticula in this region and throughout the colon. No bowel obstruction. APPENDIX: Visualized and unremarkable. No evidence of acute appendicitis. VESSELS: Abdominal aorta is normal caliber. REPRODUCTIVE ORGANS: Grossly unremarkable URINARY BLADDER: Grossly unremarkable. ABDOMINAL WALL: Unremarkable. BONES: No acute abnormalities. CT/Abdomen/Pelvis without Cont IMPRESSION: Acute sigmoid diverticulitis. Hiatal hernia. Electronically Signed: Lynsey Lao MD at 19:01 EDT , CC: Dr. Evangelist Starr MD; Dr. Axel Mireles DO [employer] Operator: Signed Normal [facility] Basic Metabolic Profile (BMP )on 06-14-2024 BUN/CRE 12.9 RATIO Normal 10-20 [facility] Comment on above: Performed By: #### L 100.0100, L500.2500 #### [facility] [address] [place], [address] CA,Total 9.0 mg/dL Normal 8.5-10.1 [facility] Comment on above: Performed By: #### L 100.0100, L500.2500 #### [facility] [address] [place], [address] Chloride [Moles/Vol] 99 mmol/L Normal 98-107 [facility] Comment on above: Performed By: #### L 100.0100, L500.2500 #### [facility] [address] [place], [address] CO2 [Moles/Vol] 29.0 mmol/L Normal 21.0-32.0 [facility] Comment on above: Performed By: #### L 100.0100, L500.2500 #### [facility] [address] [place], [address] Creatinine [Mass/Vol] 1.24 mg/dL High 0.55-1.02 [facility] Comment on above: Result Comment: The validity of the calculated GFR GFRAA in patients over 70 years has not been determined. Clinical correlation is essential. Performed By: #### L 100.0100, L500.2500 #### [facility] [address] [place], [address] ECRCL 35.96 ml/min Normal [facility] Comment on above: Performed By: #### L 100.0100, L500.2500 #### [facility] [address] [place], [address] EST GFR - AA 54 mL/min Low >60 [facility] Comment on above: Result Comment: Afri can [place] GFR Calc Performed By: #### L 100.0100, L500.2500 #### [facility] [address] [place], [address] GAP 5 Normal 5-15 [facility] Comment on above: Performed By: #### L 100.0100, L500.2500 #### [facility] [address] [place], [address] GFR/1.73 sq M.predicted among non-blacks MDRD (S/P/Bld) [Vol rate/Area] 45 mL/min/{1.73_m2} Low >60 [facility] Comment on above: Result Comment: Non- GFR Calc Performed By: #### L 100.0100, L500.2500 #### [facility] [address] [place], [address] Glucose [Mass/Vol] 99 mg/dL Normal 74-106 [facility] Comment on above: Performed By: #### L 100.0100, L500.2500 #### [facility] [address] [place], [address] Potassium [Moles/Vol] 4.2 mmol/L Normal 3.5-5.1 [facility] Comment on above: Performed By: #### L 100.0100, L500.2500 #### [facility] [address] [place], [address] Sodium [Moles/Vol] 133 mmol/L Low 136-145 [facility] Comment on above: Performed By: #### L 100.0100, L500.2500 #### [facility] [address] [place], [address] Urea nitrogen [Mass/Vol] 16 mg/dL Normal 7-18 [facility] Comment on above: Performed By: #### L 100.0100, L500.2500 #### [facility] [address] [place], [address] CBC W/Diff, Automatedon 08-0 -2023 Absolute Lymph 1.91 X10 3/uL Normal 0.83-4.51 [facility] Comment on above: Performed By: #### L 100.0100, L500.2500 #### [facility] [address] [place], [address] Absolute Neut 8.0 X10 3/uL High 2.0-7.7 [facility] Comment on above: Performed By: #### L 100.0100, L500.2500 #### [facility] [address] [place], [address] Basophils/100 WBC (Bld) 1.0 % Normal 0-1 [facility] Comment on above: Performed By: #### L 100.0100, L500.2500 #### [facility] [address] [place], [address] Eosinophils/100 WBC (Bld) 1.6 % Normal 0-5 [facility] Comment on above: Performed By: #### L 100.0100, L500.2500 #### [facility] [address] [place], [address] Erythrocyte distribution width (RBC) [Ratio] 13.3 % Normal 11.6-14.6 [facility] Comment on above: Performed By: #### L 100.0100, L500.2500 #### [facility] [address] [place], [address] Hematocrit (Bld) [Volume fraction] 35.7 % Low 37-47 [facility] Comment on above: Performed By: #### L 100.0100, L500.2500 #### [facility] [address] [place], [address] Hemoglobin (Bld) [Mass/Vol] 11.7 g/dL Low 12.0-15.0 [facility] Comment on above: Performed By: #### L 100.0100, L500.2500 #### [facility] [address] [place], [address] IG% 0.400 Normal 0.0-0.9 [facility] Comment on above: Result Comment: IG% - Immature Granulocytes (promyelocytes, myelocytes and metamyelocytes) > 1% indicates that a LEFT SHIFT is Present. Performed By: #### L 100.0100, L500.2500 #### [facility] [address] [place], [address] Lymphocytes/100 WBC (Bld) 16.6 % Low 19-41 [facility] Comment on above: Performed By: #### L 100.0100, L500.2500 #### [facility] [address] [place], [address] MCH (RBC) [Entitic mass] 28.0 pg Normal 27.0-32.0 [facility] Comment on above: Performed By: #### L 100.0100, L500.2500 #### [facility] [address] [place], [address] MCHC (RBC) [Mass/Vol] 32.8 g/dL Normal 32-36 [facility] Comment on above: Performed By: #### L 100.0100, L500.2500 #### [facility] [address] [place], [address] MCV (RBC) [Entitic vol] 85.4 fL Normal 81-99 [facility] Comment on above: Performed By: #### L 100.0100, L500.2500 #### [facility] [address] [place], [address] Monocytes/100 WBC (Bld) 10.9 % High 0-10 [facility] Comment on above: Performed By: #### L 100.0100, L500.2500 #### [facility] [address] [place], [address] Neutrophils/100 WBC (Bld) 69.5 % Normal 47-70 [facility] Comment on above: Performed By: #### L 100.0100, L500.2500 #### [facility] [address] [place], [address] Nucleated RBC (Bld) [#/Vol] 0 10*3/uL Normal 0-5 [facility] Comment on above: Performed By: #### L 100.0100, L500.2500 #### [facility] [address] [place], [address] Platelet mean volume (Bld) [Entitic vol] 9.6 fL Normal 6.2-12.0 [facility] Comment on above: Performed By: #### L 100.0100, L500.2500 #### [facility] [address] [place], [address] Platelets (Bld) [#/Vol] 298 10*3/uL Normal 150-450 [facility] Comment on above: Performed By: #### L 100.0100, L500.2500 #### [facility] [address] [place], [address] RBC (Bld) [#/Vol] 4.18 10*6/uL Low 4.2-5.4 [facility] Comment on above: Performed By: #### L 100.0100, L500.2500 #### [facility] [address] [place], [address] RDW SD 41.6 fl Normal 35.1-43.9 [facility] Comment on above: Performed By: #### L 100.0100, L500.2500 #### [facility] [address] [place], [address] WBC (Bld) [#/Vol] 11.5 10*3/uL High 4.4-11.0 [facility] Comment on above: Performed By: #### L 100.0100, L500.2500 #### [facility] [address] [place], [address] Emergency Department Summary on 06-14-2024 Emergency Department Summary [facility] Medical Records Department [address] [place] [address] Emergency Department Summary 06/14/24 MR#: [id number] Acct: [id number] Name: TASHIA FERNANDEZ Rep #: [id number] : 1950 74 From: Axel Vasquez PCP: Dr. Evangelist Starr MD Status:DEP ER Location: ED HPI HPI - GI History of Present Illness Chief Complaint: Abd Pain Informant: patient and family Narrative Narrative: Here with granddaughter reporting 2-day history left lower quad abdominal pain. Subjective chills. No fevers. States feels similar to diverticulitis. Last time was 4 years ago. Has had 5-6 episodes of it. She is post have surgery 4 years ago however with prep of her bowel she had diarrhea and up in the ED. No urinary symptoms. Stated a walk around pain was more intense however subsided. Had yellow mucus stools today. Nonbloody stools. Cholecystectomy, tubal ligation in the past. Prior similar symptoms: Yes PFSH PFSH Medical History Hypothyroidism Pancreatitis Hiatal hernia Obesity Former tobacco use CKD (chronic kidney disease), stage III Hyponatremia GERD (gastroesophageal reflux disease) Diverticulitis Hyperlipidemia Essential hypertension Abdominal pain Hypokalemia Diverticulosis Home Medications ???Medication ???Instructions ???Recorded ???Last Taken ???Type aspirin 81 mg chewable tablet 81 mg PO DAILY@0800 HEALTH 01/01/14 06/13/24 History MAINTENANCE levothyroxine 88 mcg tablet 88 mcg PO DAILY HYPOTHYROIDISM 01/01/14 06/14/24 History losartan 100 mg tablet 100 mg PO DAILY BLOOD PRESSURE 01/01/14 06/14/24 History amlodipine 5 mg tablet 5 mg PO QHS BLOOD PRESSURE 01/25/18 06/13/24 History labetalol 100 mg tablet 200 mg PO BID HEART 01/25/18 06/14/24 History biotin 1 mg capsule 1 mg PO DAILY supplement 07/06/18 06/14/24 History gabapentin 300 mg capsule 300 mg PO QHS NEUROPATHY 09/04/19 06/13/24 History potassium chloride 20 mEq 40 meq PO BID 06/14/21 06/14/24 History tablet,extended release meclizine 25 mg tablet 25 mg PO TID PRN dizziness #30 tabs 12/26/21 Unknown Rx amlodipine 2.5 mg tablet 2.5 mg PO DAILY 01/26/23 06/13/24 History isosorbide mononitrate 30 mg 30 mg PO DAILY 01/26/23 06/14/24 History tablet,extended release 24 hr ondansetron 4 mg disintegrating 4 mg PO Q8H PRN PRN Nausea #10 tabs 12/12/23 Unknown Rx tablet blood sugar diagnostic (True 06/14/24 Unknown History Metrix Glucose Test Strip) cefdinir 300 mg capsule 300 mg PO Q12H #14 caps 06/14/24 Unknown Rx lancets 33 gauge (TRUEplus Lancets) 06/14/24 Unknown History metronidazole 500 mg tablet 500 mg PO Q8H #21 tabs 06/14/24 Unknown Rx ranolazine 500 mg tablet,extended 500 mg PO BID 06/14/24 06/14/24 History release,12 hr Allergy/AdvReac Type Severity Reaction Status Date / Time hydrochlorothiazide Allergy Intermediate rash Verified 06/14/24 16:54 lisinopril AdvReac Intermediate cough Verified 06/14/24 16:54 atorvastatin (From Lipitor) AdvReac Unknown unknown Verified 06/14/24 16:54 spironolactone AdvReac Unknown unknown Verified 06/14/24 16:54 Beta-Blockers AdvReac cough Verified 06/14/24 16:54 (Beta-Adrenergic Bloc codeine AdvReac Intolerance Verified 06/14/24 16:54 perindopril (From Aceon) AdvReac rash,cough Verified 06/14/24 16:54 Family History Mother Diabetes Heart disease Hypertension CVA (cerebral vascular accident) Sister Hypertension Heart disease Brother Heart disease Hypertension Surgical History History of cholecystectomy History of right and left heart catheterization (08/16/19) Hx of esophagogastroduodenoscopy History of left heart catheterization (2015) History of colonoscopy (11/2018) Hx of repair of right rotator cuff Hx of eye surgery Hx of tubal ligation History of carpal tunnel release of both wrists Hx of cholecystectomy Social History Smoking Status: Former smoker alcohol intake: current alcohol intake frequency: holidays/special occasions only substance use type: does not use caffeine: No what type of physical activity do you participate in: none frequency: does not exercise ROS ROS ED Constitutional Constitutional ED: Reports chills; Denies fever(s) or sweats Eyes Eyes: Denies change in vision ENT ENT ED: Denies dysphagia or sore throat Cardiovascular Cardiovascular: Denies chest pain, leg edema, palpitations or racing heartbeat Respiratory/Chest Respiratory/Chest: Denies cough, dyspnea or dyspnea on exertion Gastrointestinal Gastrointestinal: Reports abdominal pain; Denies diarrhea, nausea or vomiting Genitourinary Genitourinary ED: Denies dysuria, hematuria (more content not included)... Normal [facility] CBC W Auto Differential pane l (Bld)on 05-29-2024 Basophils (Bld) [#/Vol] 0.08 10*3/uL [facility] Basophils/100 WBC (Bld) 1.1 % [facility] Differential cell count method Nom (Bld) Auto [facility] Eosinophils (Bld) [#/Vol] 0.23 10*3/uL [facility] Eosinophils/100 WBC (Bld) 3.1 % [facility] Erythrocyte distribution width (RBC) [Ratio] 13.3 % 11.5 - 15.0 % [facility] Hematocrit (Bld) [Volume fraction] 38.3 % 36.0 - 46.0 % [facility] Hemoglobin (Bld) [Mass/Vol] 12.1 g/dL 11.5 - 15.5 g/dL [facility] Immature granulocytes (Bld) [#/Vol] [facility] Immature granulocytes/100 WBC (Bld) 0.1 % [facility] Lymphocytes (Bld) [#/Vol] 1.77 10*3/uL [facility] Lymphocytes/100 WBC (Bld) 23.8 % [facility] MCH (RBC) [Entitic mass] 27.8 pg 26.0 - 34.0 pg [facility] MCHC (RBC) [Mass/Vol] 31.6 g/dL 30.5 - 36.0 g/dL [facility] MCV (RBC) [Entitic vol] 87.8 fL 80.0 - 100.0 fL [facility] Monocytes (Bld) [#/Vol] 0.79 10*3/uL [facility] Monocytes/100 WBC (Bld) 10.6 % [facility] Neutrophils (Bld) [#/Vol] 4.55 10*3/uL [facility] Neutrophils/100 WBC (Bld) 61.3 % [facility] Nucleated RBC (Bld) [#/Vol] [facility] Nucleated RBC/100 WBC (Bld) [Ratio] 0.0 % /100 WBC [facility] Platelet mean volume (Bld) [Entitic vol] 9.6 fL 9.0 - 12.7 fL [facility] Platelets (Bld) [#/Vol] 305 10*3/uL [facility] RBC (Bld) [#/Vol] 4.36 10*6/uL 3.90 - 5.2 0 m/uL [facility] WBC (Bld) [#/Vol] 7.43 10*3/uL [facility] HbA1c (Bld)on 05-29-2024 Average glucose Estimated from glycated hemoglobin (Bld) [Mass/Vol] 140 mg/dL [facility] Comment on above: eAG: (Estimated aver age glucose) is a calculated value from HgbA1c and is pharmaceutical specialty representative of the average blood glucose level in the last 2-3 month period. HbA1c (Bld) [Mass fraction] 6.5 % High 4.3 - 5.6 % [facility] Comment on above: [place] Diabetes As sociation guidelines indicate that patients with HgbA1c in the range 5.7-6.4% are at increased risk for development of diabetes, and intervention by lifestyle modification may be beneficial. HgbA1c greater or equal to 6.5% is considered diagnostic of diabetes. Interpretation and review of laboratory results Abnormal [facility] Additional Injections: L rin g A1on 05-06-2024 Anju Hairston PA -C 05/06/2024 9:40 AM Additional Injections: L ring A1 for trigger finger Informed Consent Consent Obtained: Verbal [place] Protocol A moment to CARE was completed. SIGN IN Sign in communication not applicable due to emergent procedure. Personnel directly involved with the procedure wore the appropriate PPE. Special Equipment: N/A Patient/Surrogate Stated/Verified: Patient name, Date of , Relevant allergies and Intended procedure TIME OUT Intended patient and procedure match the source document(s). Consent documented and matches the intended procedure. Relevant labs, photos, and/or imaging studies have been reviewed. Correct side/site marked and visible. Medications required for procedure verified. No fire risk assessment and interventions applicable. No implant(s) inserted. 05/06/2024 9:39 AM The procedure site was prepped in the usual sterile fashion. Medications: 3 mg betamethasone acetate-betamethasone sodium phosphate 6 mg/mL Anesthetics: 0.5 mL lidocaine (PF) 10 mg/mL (1 %) Outcome: tolerated well, no immediate complications Post-injection instructions were reviewed with the patient and the patient voiced understanding of these instructions. SIGN OUT No specimen collected. No instruments, equipment or retained foreign bodies applicable. Post-procedure follow-up management communicated and Plan of Care Visit completed when applicable [facility] EGD Study observation Narrnika brown 01-03-2024 [facility] Basic Metabolic Profile (BMP )on 12-12-2023 BUN/CRE 11.3 RATIO Normal 10-20 [facility] Comment on above: Performed By: #### L 100.0100, L500.2500 #### [facility] [address] [place], [address] CA,Total 8.7 mg/dL Normal 8.5-10.1 [facility] Comment on above: Performed By: #### L 100.0100, L500.2500 #### [facility] [address] [place], [address] Chloride [Moles/Vol] 99 mmol/L Normal 98-107 [facility] Comment on above: Performed By: #### L 100.0100, L500.2500 #### [facility] [address] [place], [address] CO2 [Moles/Vol] 27.0 mmol/L Normal 21.0-32.0 [facility] Comment on above: Performed By: #### L 100.0100, L500.2500 #### [facility] [address] [place], [address] Creatinine [Mass/Vol] 1.06 mg/dL High 0.55-1.02 [facility] Comment on above: Result Comment: The validity of the calculated GFR GFRAA in patients over 70 years has not been determined. Clinical correlation is essential. Performed By: #### L 100.0100, L500.2500 #### [facility] [address] [place], [address] ECRCL 45.45 ml/min Normal [facility] Comment on above: Performed By: #### L 100.0100, L500.2500 #### [facility] [address] [place], [address] EST GFR - AA 65 mL/min Normal >60 [facility] Comment on above: Result Comment: Afri can [place] GFR Calc Performed By: #### L 100.0100, L500.2500 #### [facility] [address] [place], [address] GAP 4 Low 5-15 [facility] Comment on above: Performed By: #### L 100.0100, L500.2500 #### [facility] [address] [place], [address] GFR/1.73 sq M.predicted among non-blacks MDRD (S/P/Bld) [Vol rate/Area] 54 mL/min/{1.73_m2} Low >60 [facility] Comment on above: Result Comment: Non- GFR Calc Performed By: #### L 100.0100, L500.2500 #### [facility] [address] [place], [address] Glucose [Mass/Vol] 114 mg/dL High 74-106 [facility] Comment on above: Result Comment: Fast ing Glucose result from 100 to 125 mg/dL suggests IMPAIRED HOMEOSTASIS per A.D.A. criteria. Performed By: #### L 100.0100, L500.2500 #### [facility] [address] [place], [address] Potassium [Moles/Vol] 4.2 mmol/L Normal 3.5-5.1 [facility] Comment on above: Result Comment: Mode rate Hemolysis, Result may be falsely increased. Performed By: #### L 100.0100, L500.2500 #### [facility] [address] [place], [address] Sodium [Moles/Vol] 130 mmol/L Low 136-145 [facility] Comment on above: Performed By: #### L 100.0100, L500.2500 #### [facility] [address] [place], [address] Urea nitrogen [Mass/Vol] 12 mg/dL Normal 7-18 [facility] Comment on above: Performed By: #### L 100.0100, L500.2500 #### [facility] [address] [place], [address] CBC W/Diff, Automatedon 02-0 Absolute Lymph 0.56 X10 3/uL Low 0.83-4.51 [facility] Comment on above: Performed By: #### L 100.0100, L500.2500 #### [facility] [address] [place], [address] Absolute Neut 5.5 X10 3/uL Normal 2.0-7.7 [facility] Comment on above: Performed By: #### L 100.0100, L500.2500 #### [facility] [address] [place], [address] Basophils/100 WBC (Bld) 1.2 % High 0-1 [facility] Comment on above: Performed By: #### L 100.0100, L500.2500 #### [facility] [address] [place], [address] Eosinophils/100 WBC (Bld) 2.3 % Normal 0-5 [facility] Comment on above: Performed By: #### L 100.0100, L500.2500 #### [facility] [address] [place], [address] Erythrocyte distribution width (RBC) [Ratio] 13.2 % Normal 11.6-14.6 [facility] Comment on above: Performed By: #### L 100.0100, L500.2500 #### [facility] [address] [place], [address] Hematocrit (Bld) [Volume fraction] 36.8 % Low 37-47 [facility] Comment on above: Performed By: #### L 100.0100, L500.2500 #### [facility] [address] [place], [address] Hemoglobin (Bld) [Mass/Vol] 12.2 g/dL Normal 12.0-15.0 [facility] Comment on above: Performed By: #### L 100.0100, L500.2500 #### [facility] [address] [place], [address] IG% 1.200 High 0.0-0.9 [facility] Comment on above: Result Comment: IG% - Immature Granulocytes (promyelocytes, myelocytes and metamyelocytes) > 1% indicates that a LEFT SHIFT is Present. Performed By: #### L 100.0100, L500.2500 #### [facility] [address] [place], [address] Lymphocytes/100 WBC (Bld) 7.7 % Low 19-41 [facility] Comment on above: Performed By: #### L 100.0100, L500.2500 #### [facility] [address] [place], [address] MCH (RBC) [Entitic mass] 28.5 pg Normal 27.0-32.0 [facility] Comment on above: Performed By: #### L 100.0100, L500.2500 #### [facility] [address] [place], [address] MCHC (RBC) [Mass/Vol] 33.2 g/dL Normal 32-36 [facility] Comment on above: Performed By: #### L 100.0100, L500.2500 #### [facility] [address] [place], [address] MCV (RBC) [Entitic vol] 86.0 fL Normal 81-99 [facility] Comment on above: Performed By: #### L 100.0100, L500.2500 #### [facility] [address] [place], [address] Monocytes/100 WBC (Bld) 11.0 % High 0-10 [facility] Comment on above: Performed By: #### L 100.0100, L500.2500 #### [facility] [address] [place], [address] Neutrophils/100 WBC (Bld) 76.6 % High 47-70 [facility] Comment on above: Performed By: #### L 100.0100, L500.2500 #### [facility] [address] [place], [address] Nucleated RBC (Bld) [#/Vol] 0 10*3/uL Normal 0-5 [facility] Comment on above: Performed By: #### L 100.0100, L500.2500 #### [facility] [address] [place], [address] Platelet mean volume (Bld) [Entitic vol] 9.7 fL Normal 6.2-12.0 [facility] Comment on above: Performed By: #### L 100.0100, L500.2500 #### [facility] [address] [place], [address] Platelets (Bld) [#/Vol] 253 10*3/uL Normal 150-450 [facility] Comment on above: Performed By: #### L 100.0100, L500.2500 #### [facility] [address] [place], [address] RBC (Bld) [#/Vol] 4.28 10*6/uL Normal 4.2-5.4 [facility] Comment on above: Performed By: #### L 100.0100, L500.2500 #### [facility] [address] [place], [address] RDW SD 41.1 fl Normal 35.1-43.9 [facility] Comment on above: Performed By: #### L 100.0100, L500.2500 #### [facility] [address] [place], [address] WBC (Bld) [#/Vol] 7.2 10*3/uL Normal 4.4-11.0 [facility] Comment on above: Performed By: #### L 100.0100, L500.2500 #### [facility] [address] [place], [address] Chest 1 View (Portable)on Chest 1 View (Portable) [facility] Imaging Services [address] [place] [address] Chest 1 View (Portable) MR#: [id number] Acct: [id number] Name: TASHIA FERNANDEZ Rep #: [id number] : 1950 F 73 From: Farooq Cordon PCP: Dr. Evangelist Starr MD Status: PRE ER Study: Chest 1 View (Portable) Date of Exam: 12/12/23 Exam# [id number] Ordering Dr: Di Christine DO :[id number] INDICATION: cough EXAMINATION/TECHNIQUE: X-RAY - XR Chest 1 View COMPARISON: Prior study dated: 01/26/2023. FINDINGS: LINES/DEVICES: None. LUNGS: No consolidation, edema or effusion. No pneumothorax. MEDIASTINUM AND CARDIOVASCULAR STRUCTURES: Cardiac silhouette not enlarged. Central airways and mediastinal contour are unremarkable. BONES AND SOFT TISSUES: Unremarkable osseous structures. Hiatal hernia is again seen. RAD/Chest 1 View (Portable) IMPRESSION: 1. No radiographic evidence of acute cardiopulmonary disease. 2. Hiatal hernia. Electronically Signed: Farooq Santamaria MD at 11:34 EST , CC: Dr. Evangelist Starr MD; Dr. Di Christine DO [employer] Operator: Signed Normal [facility] Emergency Department Summary on 12-12-2023 Emergency Department Summary [facility] Medical Records Department [address] [place] [address] Emergency Department Summary 12/12/23 MR#: [id number] Acct: [id number] Name: TASHIA FERNANDEZ Rep #: [id number] : 1950 73 From: Di Chirstine DO PCP: Dr. Evangelist Starr MD Status:DEP ER Location: ED HPI History of Present Illness Chief Complaint: Weakness Detail of Chief Complaint: Generalized weakness and not feeling well Informant: patient and family Narrative Narrative: Patient presents to the emergency department complaint not feeling well x 3 days. She presents via EMS from home. Patient states that she started with a cough 3 days ago. She is stating that she was exposed to somebody with RSV in [place]. Patient having vomiting today x 1 and had 2-3 episodes of watery stool. She denies any abdominal pain. She has had no fever. She does complain of a headache and body aches. Generally feels weak. PFSH PFS Medical History Abdominal pain CKD (chronic kidney disease), stage III Diverticulitis Diverticulosis Essential hypertension Former tobacco use GERD (gastroesophageal reflux disease) Hiatal hernia Hyperlipidemia Hypokalemia Hyponatremia Hypothyroidism Obesity Pancreatitis Home Medications aspirin 81 mg chewable tablet 81 mg PO DAILY@0800 HEALTH MAINTENANCE 01/01/14 [History Last Taken 07/14/20 17:30] levothyroxine 88 mcg tablet 88 mcg PO DAILY HYPOTHYROIDISM 01/01/14 [History Last Taken 07/14/20 07:30] losartan 100 mg tablet 100 mg PO DAILY BLOOD PRESSURE 01/01/14 [History Last Taken 07/14/20 08:00] amlodipine 5 mg tablet 5 mg PO QHS BLOOD PRESSURE 01/25/18 [History Last Taken 07/14/20 17:30] labetalol 100 mg tablet 200 mg PO BID HEART 01/25/18 [History Last Taken 07/14/20 17:30] pantoprazole 40 mg tablet,delayed release 40 mg PO DAILY GERD 01/25/18 [History Last Taken 07/14/20 08:00] biotin 1 mg capsule 1 mg PO DAILY supplement 07/06/18 [History Last Taken 07/14/20 08:00] meclizine 25 mg tablet 25 mg PO DAILY PRN Vertigo 07/01/19 [History Last Taken 07/12/20 03:00] gabapentin 300 mg capsule 300 mg PO QHS NEUROPATHY 09/04/19 [History Last Taken 07/13/20 22:00] potassium chloride 20 mEq tablet,extended release 20 meq PO BID 06/14/21 [History Last Taken Unknown] meclizine 25 mg tablet 25 mg PO TID PRN dizziness #30 tabs 12/26/21 [Rx Last Taken Unknown] amlodipine 2.5 mg tablet 2.5 mg PO DAILY 01/26/23 [History Last Taken Unknown] isosorbide mononitrate 30 mg tablet,extended release 24 hr 30 mg PO DAILY 01/26/23 [History Last Taken Unknown] benzonatate 200 mg capsule 200 mg PO TID PRN cough #20 caps 12/12/23 [Rx Last Taken Unknown] ondansetron 4 mg disintegrating tablet 4 mg PO Q8H PRN PRN Nausea #10 tabs 12/12/23 [Rx Last Taken Unknown] Allergy/AdvReac Type Severity Reaction Status Date / Time hydrochlorothiazide Allergy Intermediate rash Verified 12/12/23 10:15 lisinopril AdvReac Intermediate cough Verified 12/12/23 10:15 atorvastatin [From Lipitor] AdvReac Unknown unknown Verified 12/12/23 10:15 spironolactone AdvReac Unknown unknown Verified 12/12/23 10:15 Beta-Blockers AdvReac cough Verified 12/12/23 10:15 (Beta-Adrenergic Bloc codeine AdvReac Intolerance Verified 12/12/23 10:15 perindopril [From Aceon] AdvReac rash,cough Verified 12/12/23 10:15 Family History Mother Diabetes Heart disease Hypertension CVA (cerebral vascular accident) Sister Hypertension Heart disease Brother Heart disease Hypertension Surgical History History of carpal tunnel release of both wrists History of cholecystectomy History of colonoscopy (11/2018) History of left heart catheterization (2015) History of right and left heart catheterization (08/16/19) Hx of cholecystectomy Hx of esophagogastroduodenoscopy Hx of eye surgery Hx of repair of right rotator cuff Hx of tubal ligation Social History Smoking Status: Former smoker alcohol intake: current alcohol intake frequency: holidays/special occasions only substance use type: does not use caffeine: No what type of physical activity do you participate in: none frequency: does not exercise ROS ROS ED Review of Systems ROS Unobtainable: other Constitutional Constitutional ED: Reports lethargy; Denies chills, fever(s), sweats or weight loss Eyes Eyes: Denies blurry vision, change in vision or diplopia ENT ENT ED: Denies rhinorrhea or sore throat Cardiovascular Cardiovascular: Denies chest pain, orthopnea or racing heartbeat Respiratory/Chest Respiratory/Chest: Reports cough; Denies dyspnea, dyspnea on exertion, orthopnea or sputum Gastrointestinal Gastrointestinal: Rep (more content not included)... Normal [facility] M100.678on 12-12-2023 M100.678 Normal Reference Ran ge = Negative COV + FLU + RSV PCR GeneXpert Instrument, PCR method COV + FLU + RSV PCR RESULTS CALLED TO ED, DR. CHRISTINE 12/12/23 1220 Zoya Reynolds. REPORT READ BACK BY . COV + FLU + RSV PCR Copy of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 ASSEMBLER.CASH ACCOUNTING CLERK Work Phone: [facility] 01-07-2025 13:36-0500 Respiratory rate 18 /min Elizabeth Podlogar BOWLING BALL ASSEMBLER.CASH ACCOUNTING CLERK Work Phone: [facility] 01-07-2025 13:36-0500 SaO2% (BldA) [Mass fraction] 96 % Elizabeth Podlogar B[employer]LING BALL ASSEMBLER.CASH ACCOUNTING CLERK Work Phone: [facility] 01-07-2025 13:36-0500 Systolic blood pressure 144 mm[Hg] Elizabeth Podlogar BOWLING BALL ASSEMBLER.CASH ACCOUNTING CLERK Work Phone: [facility] 12-27-2024 09:43-0500 Body mass index (BMI) [Ratio] 33.79 kg/m2 Elisa Starr MD Work Phone: [facility] 12-27-2024 09:43-0500 Body weight 78.49 kg Elisa Starr MD Work Phone: [facility] 12-27-2024 09:43-0500 Diastolic blood pressure 68 mm[Hg] Elisa Starr MD Work Phone: [facility] 12-27-2024 09:43-0500 Heart rate 78 /min Elisa Starr MD Work Phone: [facility] 12-27-2024 09:43-0500 Respiratory rate 16 /min Elisa Starr MD Work Phone: [facility] 12-27-2024 09:43-0500 SaO2% (BldA) [Mass fraction] 97 % Elisa Starr MD Work Phone: [facility] 12-27-2024 09:43-0500 Systolic blood pressure 124 mm[Hg] Elisa Strar MD Work Phone: [facility] 11-25-2024 09:00-0500 Body mass index (BMI) [Ratio] 33.83 kg/m2 Jonna Benavides MD Work Phone: [facility] 11-25-2024 09:00-0500 Body weight 78.56 kg Jonna Benavides MD Work Phone: [facility] 11-25-2024 09:00-0500 Diastolic blood pressure 62 mm[Hg] Jonna Benavides MD Work Phone: [facility] 11-25-2024 09:00-0500 Heart rate 74 /min Jonna Benavides MD Work Phone: [facility] 11-25-2024 09:00-0500 SaO2% (BldA) [Mass fraction] 98 % Jonna Benavides MD Work Phone: [facility] 11-25-2024 09:00-0500 Systolic blood pressure 111 mm[Hg] Jonna Benavides MD Work Phone: [facility] 08-07-2024 14:42-0400 Body height 152.[address] [facility] 1 Work Phone: [facility] 08-07-2024 14:42-0400 Body mass index (BMI) [Ratio] 33.79 kg/m2 [facility] 1 Work Phone: [facility] 08-07-2024 14:42-0400 Body temperature 96.8 [degF] [facility] 1 Work Phone: [facility] 08-07-2024 14:42-0400 Body weight 78.47 kg [facility] 1 Work Phone: [facility] 08-07-2024 14:42-0400 Diastolic blood pressure 78 mm[Hg] [facility] Work Phone: [facility] [facility] 08-07-2024 14:42-0400 Heart rate 74 /min Pacc 1 Work Phone: [facility] 08-07-2024 14:42-0400 Respiratory rate 16 /min Pacc 1 Work Phone: [facility] 08-07-2024 14:42-0400 SaO2% (BldA) [Mass fraction] 97 % Pacc 1 Work Phone: [facility] 08-07-2024 14:42-0400 Systolic blood pressure 136 mm[Hg] Pacc 1 Work Phone: [facility] 06-26-2024 10:10-0400 Body mass index (BMI) [Ratio] 33.63 kg/m2 Elizabeth Og BOWLING BALL ASSEMBLER.CASH ACCOUNTING CLERK Work Phone: [facility] 06-26-2024 10:10-0400 Body weight 78.1 kg Elizabeth Og BOWLING BALL ASSEMBLER.CASH ACCOUNTING CLERK Work Phone: [facility] 06-26-2024 10:10-0400 Diastolic blood pressure 70 mm[Hg] Elizabeth Guerralogjuliet BOWLING BALL ASSEMBLER.CASH ACCOUNTING CLERK Work Phone: [facility] 06-26-2024 10:10-0400 Heart rate 64 /min Elizabeth Og BOWLING BALL ASSEMBLER.CASH ACCOUNTING CLERK Work Phone: [facility] 06-26-2024 10:10-0400 Respiratory rate 18 /min Elizabeth Podlogar BOWLING BALL ASSEMBLER.CASH ACCOUNTING CLERK Work Phone: [facility] 06-26-2024 10:10-0400 SaO2% (BldA) [Mass fraction] 93 % Elizabeth Podlogar BOWLING BALL ASSEMBLER.CASH ACCOUNTING CLERK Work Phone: [facility] 06-26-2024 10:10-0400 Systolic blood pressure 126 mm[Hg] Elizabeth Podlogar BOWLING BALL ASSEMBLER.CASH ACCOUNTING CLERK Work Phone: [facility] 05-29-2024 09:45-0400 Body mass index (BMI) [Ratio] 34.45 kg/m2 Elisa Starr MD Work Phone: [facility] 05-29-2024 09:45-0400 Body weight 80.02 kg Elisa Starr MD Work Phone: [facility] 05-29-2024 09:45-0400 Diastolic blood pressure 72 mm[Hg] Elisa Starr MD Work Phone: [facility] 05-29-2024 09:45-0400 Heart rate 70 /min Elisa Starr MD Work Phone: [facility] 05-29-2024 09:45-0400 Respiratory rate 16 /min Elisa Starr MD Work Phone: [facility] 05-29-2024 09:45-0400 SaO2% (BldA) [Mass fraction] 97 % Elisa tSarr MD Work Phone: [facility] 05-29-2024 09:45-0400 Systolic blood pressure 138 mm[Hg] Elisa Starr MD Work Phone: [facility] 05-27-2024 11:16-0400 Body height 152.4 cm Jonna Benavides MD Work Phone: [facility] 05-27-2024 11:16-0400 Body mass index (BMI) [Ratio] 34.53 kg/m2 Jonna Benavides MD Work Phone: [facility] 05-27-2024 11:16-0400 Body weight 80.2 kg Jonna Benavides MD Work Phone: [facility] 05-27-2024 11:16-0400 Diastolic blood pressure 75 mm[Hg] Jonna Benavides MD Work Phone: [facility] 05-27-2024 11:16-0400 Heart rate 57 /min Jonna Benavides MD Work Phone: [facility] 05-27-2024 11:16-0400 SaO2% (BldA) [Mass fraction] 97 % Jonna Benavides MD Work Phone: [facility] 05-27-2024 11:16-0400 Systolic blood pressure 136 mm[Hg] Jonna Benavides MD Work Phone: [facility] 03-06-2024 11:11-0400 Body mass index (BMI) [Ratio] 34.37 kg/m2 Elisa Starr MD Work Phone: [facility] 03-06-2024 11:11-0400 Body weight 79.83 kg Elisa Starr MD Work Phone: [facility] 03-06-2024 11:11-0400 Diastolic blood pressure 74 mm[Hg] Elisa Starr MD Work Phone: [facility] 03-06-2024 11:11-0400 Heart rate 67 /min Elisa Starr MD Work Phone: [facility] 03-06-2024 11:11-0400 Respiratory rate 16 /min Elisa Starr MD Work Phone: [facility] 03-06-2024 11:11-0400 Systolic blood pressure 126 mm[Hg] Elisa Starr MD Work Phone: [facility] 02-26-2024 15:47-0400 Body temperature 97.7 [degF] Behzad Kelley MD Work Phone: [facility] 02-26-2024 15:47-0400 Diastolic blood pressure 88 mm[Hg] Behzad Kelley MD Work Phone: [facility] 02-26-2024 15:47-0400 Heart rate 75 /min Behzad Kelley MD Work Phone: [facility] 02-26-2024 15:47-0400 SaO2% (BldA) [Mass fraction] 97 % Behzad Kelley MD Work Phone: [facility] 02-26-2024 15:47-0400 Systolic blood pressure 150 mm[Hg] Behzad Kelley MD Work Phone: [facility] 01-03-2024 11:32-0500 Diastolic blood pressure 66 mm[Hg] Behzad Kelley MD Work Phone: [facility] 01-03-2024 11:32-0500 Heart rate 63 /min Behzad Kelley MD Work Phone: [facility] 01-03-2024 11:32-0500 Respiratory rate 16 /min Behzad Kelley MD Work Phone: [facility] 01-03-2024 11:32-0500 SaO2% (BldA) [Mass fraction] 95 % Behzad Kelley MD Work Phone: [facility] 01-03-2024 11:32-0500 Systolic blood pressure 121 mm[Hg] Behzad Kelley MD Work Phone: [facility] 01-03-2024 10:14-0500 Body temperature 97.11 [degF] Behzad Kelley MD Work Phone: [facility] 01-03-2024 10:14-0500 Body weight 79.2 kg Behzad Kelley MD Work Phone: [facility] 07-27-2023 16:01-0400 Body weight 78.83 kg Elisa Starr MD Work Phone: [facility] 07-27-2023 16:01-0400 Diastolic blood pressure 70 mm[Hg] Elisa Starr MD Work Phone: [facility] 07-27-2023 16:01-0400 Heart rate 78 /min Elisa Starr MD Work Phone: [facility] 07-27-2023 16:01-0400 Respiratory rate 16 /min Elisa Starr MD Work Phone: [facility] 07-27-2023 16:01-0400 SaO2% (BldA) [Mass fraction] 94 % Elisa Starr MD Work Phone: [facility] 07-27-2023 16:01-0400 Systolic blood pressure 136 mm[Hg] Elisa Starr MD Work Phone: [facility] 06-06-2023 13:21-0400 Body height 152.4 cm Alyx Marie MD Work Phone: [facility] 06-06-2023 13:21-0400 Body weight 79.83 kg Alyx Marie MD Work Phone: [facility] 06-06-2023 13:21-0400 Diastolic blood pressure 78 mm[Hg] Alyx Marie MD Work Phone: [facility] 06-06-2023 13:21-0400 Heart rate 62 /min Alyx Marie MD Work Phone: [facility] 06-06-2023 13:21-0400 Respiratory rate 16 /min Alyx Marie MD Work Phone: [facility] 06-06-2023 13:21-0400 SaO2% (BldA) [Mass fraction] 97 % Alyx Marie MD Work Phone: [facility] 06-06-2023 13:21-0400 Systolic blood pressure 140 mm[Hg] Alyx Marie MD Work Phone: [facility] 06-06-2023 13:03-0400 Body height 152.4 cm Pulm Wstr Work Phone: [facility] 06-06-2023 13:03-0400 Body weight 79.83 kg Pulm Wstr Work Phone: [facility] 06-06-2023 13:03-0400 Heart rate 62 /min Pulm Wstr Work Phone: [facility] 06-06-2023 13:03-0400 Respiratory rate 16 /min Pulm Wstr Work Phone: [facility] 06-06-2023 13:03-0400 SaO2% (BldA) [Mass fraction] 97 % Pulm Wstr Work Phone: [facility] 04-10-2023 07:18-0400 Body weight 79.38 kg Elizabeth Podlogar BOWLING BALL ASSEMBLER.CASH ACCOUNTING CLERK Work Phone: [facility] 04-10-2023 07:18-0400 Diastolic blood pressure 76 mm[Hg] Elizabeth Podlogar BOWLING BALL ASSEMBLER.CASH ACCOUNTING CLERK Work Phone: [facility] 04-10-2023 07:18-0400 Heart rate 65 /min Elizabeth Podlogar BOWLING BALL ASSEMBLER.CASH ACCOUNTING CLERK Work Phone: [facility] 04-10-2023 07:18-0400 SaO2% (BldA) [Mass fraction] 96 % Elizabeth Podlogar BOWLING BALL ASSEMBLER.CASH ACCOUNTING CLERK Work Phone: [facility] 04-10-2023 07:18-0400 Systolic blood pressure 128 mm[Hg] Elizabeth Podlogar BOWLING BALL ASSEMBLER.CASH ACCOUNTING CLERK Work Phone: [facility] 02-07-2023 13:19-0400 Body height 152.4 cm Zoya Tammie BOWLING BALL ASSEMBLER.CASH ACCOUNTING CLERK Work Phone: [facility] 02-07-2023 13:19-0400 Body weight 79.38 kg Zoya Tammie BOWLING BALL ASSEMBLER.CASH ACCOUNTING CLERK Work Phone: [facility] 02-07-2023 13:19-0400 Diastolic blood pressure 77 mm[Hg] Zoya Tammie BOWLING BALL ASSEMBLER.CASH ACCOUNTING CLERK Work Phone: [facility] 02-07-2023 13:19-0400 Heart rate 65 /min Zoya Tammie BOWLING BALL ASSEMBLER.CASH ACCOUNTING CLERK Work Phone: [facility] 02-07-2023 13:19-0400 SaO2% (BldA) [Mass fraction] 95 % Zoya Almaraz APRN.CASH ACCOUNTING CLERK Work Phone: [facility] 02-07-2023 13:19-0400 Systolic blood pressure 156 mm[Hg] Zoya Almaraz APRN.CASH ACCOUNTING CLERK Work Phone: [facility] 01-26-2023 17:11-0400 Diastolic blood pressure 54 mm[Hg] [facility] 01-26-2023 17:11-0400 Heart rate 70 /min [facility] 01-26-2023 17:11-0400 Respiratory rate 19 /min [facility] 01-26-2023 17:11-0400 SaO2% (BldA) [Mass fraction] 96 % [facility] 01-26-2023 17:11-0400 Systolic blood pressure 128 mm[Hg] [facility] 01-26-2023 12:43-0400 Body height 152.4 cm [facility] 01-26-2023 12:43-0400 Body mass index (BMI) [Ratio] 35.1 kg/m2 [facility] 01-26-2023 12:43-0400 Body temperature 97.4 [degF] [facility] 01-26-2023 12:43-0400 Body weight 81.5 kg [facility] 12-27-2022 10:25-0500 Body weight 80.92 kg Elisa Starr MD Work Phone: [facility] 12-27-2022 10:25-0500 Diastolic blood pressure 72 mm[Hg] Elisa Starr MD Work Phone: [facility] 12-27-2022 10:25-0500 Heart rate 67 /min Elisa Starr MD Work Phone: [facility] 12-27-2022 10:25-0500 Respiratory rate 16 /min Elisa Starr MD Work Phone: [facility] 12-27-2022 10:25-0500 SaO2% (BldA) [Mass fraction] 97 % Elisa Starr MD Work Phone: [facility] 12-27-2022 10:25-0500 Systolic blood pressure 124 mm[Hg] Elisa Starr MD Work Phone: [facility] 11-28-2022 10:19-0500 Body weight 81.1 kg Elizabeth Podlogar BOWLING BALL ASSEMBLER.CASH ACCOUNTING CLERK Work Phone: [facility] 11-28-2022 10:19-0500 Diastolic blood pressure 72 mm[Hg] Elizabeth Podlogar BOWLING BALL ASSEMBLER.CASH ACCOUNTING CLERK Work Phone: [facility] 11-28-2022 10:19-0500 Heart rate 74 /min Elizabeth Podlogar BOWLING BALL ASSEMBLER.CASH ACCOUNTING CLERK Work Phone: [facility] 11-28-2022 10:19-0500 Respiratory rate 16 /min Elizabeth Podlogar BOWLING BALL ASSEMBLER.CASH ACCOUNTING CLERK Work Phone: [facility] 11-28-2022 10:19-0500 SaO2% (BldA) [Mass fraction] 97 % Elizabeth Podlogar BOWLING BALL ASSEMBLER.CASH ACCOUNTING CLERK Work Phone: [facility] 11-28-2022 10:19-0500 Systolic blood pressure 126 mm[Hg] Elizabeth Podlogar BOWLING BALL ASSEMBLER.CASH ACCOUNTING CLERK Work Phone: [facility] 11-14-2022 09:50-0500 Body height 152.4 cm Jonna Benavides MD Work Phone: [facility] 11-14-2022 09:50-0500 Body weight 80.74 kg Jonna Benavides MD Work Phone: [facility] 11-14-2022 09:50-0500 Diastolic blood pressure 74 mm[Hg] Jonna Benavides MD Work Phone: [facility] 11-14-2022 09:50-0500 Heart rate 61 /min Jonna Benavides MD Work Phone: [facility] 11-14-2022 09:50-0500 SaO2% (BldA) [Mass fraction] 96 % Jonna Benavides MD Work Phone: [facility] 11-14-2022 09:50-0500 Systolic blood pressure 156 mm[Hg] Jonna Benavides MD Work Phone: [facility] 10-24-2022 08:18-0500 Diastolic blood pressure 81 mm[Hg] Elizabeth Podlogar BOWLING BALL ASSEMBLER.CASH ACCOUNTING CLERK Work Phone: [facility] 10-24-2022 08:18-0500 Heart rate 69 /min Elizabeth Podlogar BOWLING BALL ASSEMBLER.CASH ACCOUNTING CLERK Work Phone: [facility] 10-24-2022 08:18-0500 Systolic blood pressure 152 mm[Hg] Elizabeth Podlogar BOWLING BALL ASSEMBLER.CASH ACCOUNTING CLERK Work Phone: [facility] 10-24-2022 07:56-0500 Body weight 80.2 kg Elizabeth Podlogar BOWLING BALL ASSEMBLER.CASH ACCOUNTING CLERK Work Phone: [facility] 10-24-2022 07:56-0500 Respiratory rate 16 /min Elizabeth Podlogar BOWLING BALL ASSEMBLER.CASH ACCOUNTING CLERK Work Phone: [facility] 10-24-2022 07:56-0500 SaO2% (BldA) [Mass fraction] 98 % Elizabeth Podlogar BOWLING BALL ASSEMBLER.CASH ACCOUNTING CLERK Work Phone: [facility] 09-27-2022 10:45-0500 Body temperature 97.81 [degF] Elizabeth Podlogar BOWLING BALL ASSEMBLER.CASH ACCOUNTING CLERK Work Phone: [facility] 09-27-2022 10:45-0500 Body weight 78.38 kg Elizabeth Podlogar BOWLING BALL ASSEMBLER.CASH ACCOUNTING CLERK Work Phone: [facility] 09-27-2022 10:45-0500 Diastolic blood pressure 82 mm[Hg] Elizabeth Podlogar BOWLING BALL ASSEMBLER.CASH ACCOUNTING CLERK Work Phone: [facility] 09-27-2022 10:45-0500 Heart rate 71 /min Elizabeth Podlogar BOWLING BALL ASSEMBLER.CASH ACCOUNTING CLERK Work Phone: [facility] 09-27-2022 10:45-0500 Respiratory rate 18 /min Elizabeth Podlogar BOWLING BALL ASSEMBLER.CASH ACCOUNTING CLERK Work Phone: [facility] 09-27-2022 10:45-0500 SaO2% (BldA) [Mass fraction] 99 % Elizabeth Podlogjuliet BOWLING BALL ASSEMBLER.CASH ACCOUNTING CLERK Work Phone: [facility] 09-27-2022 10:45-0500 Systolic blood pressure 142 mm[Hg] Elizabeth Guerralogjuliet BOWLING BALL ASSEMBLER.CASH ACCOUNTING CLERK Work Phone: [facility] 06-08-2022 10:07-0400 Diastolic blood pressure 69 mm[Hg] Mi Nurse Work Phone: [facility] 06-08-2022 10:07-0400 Heart rate 61 /min Mi Nurse Work Phone: [facility] 06-08-2022 10:07-0400 Systolic blood pressure 117 mm[Hg] Mi Nurse Work Phone: [facility] 05-10-2022 14:27-0400 Diastolic blood pressure 75 mm[Hg] Mi Nurse Work Phone: [facility] 05-10-2022 14:27-0400 Heart rate 62 /min Mi Nurse Work Phone: [facility] 05-10-2022 14:27-0400 Systolic blood pressure 148 mm[Hg] Mi Nurse Work Phone: [facility] 04-25-2022 16:11-0400 Diastolic blood pressure 78 mm[Hg] Elisa Starr MD Work Phone: [facility] 04-25-2022 16:11-0400 Systolic blood pressure 148 mm[Hg] Elisa Starr MD Work Phone: [facility] 04-25-2022 15:32-0400 Body temperature 97.7 [degF] Elisa Starr MD Work Phone: [facility] 04-25-2022 15:32-0400 Body weight 79.92 kg Elisa Starr MD Work Phone: [facility] 04-25-2022 15:32-0400 Heart rate 69 /min Elisa Starr MD Work Phone: [facility] 04-25-2022 15:32-0400 Respiratory rate 18 /min Elisa Starr MD Work Phone: [facility] 04-25-2022 15:32-0400 SaO2% (BldA) [Mass fraction] 97 % Elisa Starr MD Work Phone: [facility] 03-28-2022 10:12-0400 Body height 152.4 cm Rafael Taylor MD Work Phone: [facility] 03-28-2022 10:12-0400 Body weight 79.83 kg Rafael Taylor MD Work Phone: [facility] 03-28-2022 10:12-0400 Diastolic blood pressure 65 mm[Hg] Rafael Taylor MD Work Phone: [facility] 03-28-2022 10:12-0400 Heart rate 64 /min Rafael Taylor MD Work Phone: [facility] 03-28-2022 10:12-0400 SaO2% (BldA) [Mass fraction] 99 % Rafael Taylor MD Work Phone: [facility] 03-28-2022 10:12-0400 Systolic blood pressure 147 mm[Hg] Rafael Taylor MD Work Phone: [facility] 02-28-2022 10:39-0400 Body height 152.4 cm Rafael Taylor MD Work Phone: [facility] 02-28-2022 10:39-0400 Body weight 78.47 kg Rafael Taylor MD Work Phone: [facility] 02-28-2022 10:39-0400 Diastolic blood pressure 70 mm[Hg] Rafael Taylor MD Work Phone: [facility] 02-28-2022 10:39-0400 Heart rate 60 /min Rafael Taylor MD Work Phone: [facility] 02-28-2022 10:39-0400 SaO2% (BldA) [Mass fraction] 97 % Rafael Taylor MD Work Phone: [facility] 02-28-2022 10:39-0400 Systolic blood pressure 156 mm[Hg] Rafael Taylor MD Work Phone: [facility] Encounters Encounter Date Encounter Type Care Provider Facility Start: 07-08-2025 End: 07-08-2025 Follow-up encounter Elisa Starr MD Work Phone: [facility] Comment on above: Results Start: 07-04-2025 End: 07-04-2025 Patient encounter procedure Elisa Starr MD Work Phone: [facility] Comment on above: Diabetes mellitus ty pe II (HCC) (Primary Dx); Hyperlipidemia associated with type 2 diabetes mellitus (HCC); Primary hypertension; Hyperlipidemia, unspecified hyperlipidemia type; Stage 3a chronic kidney disease ([facility]); Hyponatremia; ASHD (arteriosclerotic heart disease); SVT (supraventricular tachycardia) ([facility]); Actinic keratosis Start: 07-04-2025 End: 07-04-2025 ambulatory ELISA STARR Facility:[facility] Start: 06-26-2025 End: 06-26-2025 ambulatory Stefany Akhtar MA [facility] Start: 06-26-2025 End: 06-26-2025 Patient encounter procedure Stefany Akhtar MA [facility] Comment on above: Population Health Na vigation Outreach ([facility] sprint list) Start: 05-21-2025 End: 05-23-2025 Refill Elisa Starr MD Work Phone: [facility] Comment on above: Refill Request Start: 04-29-2025 End: 05-07-2025 Refill Elisa Starr MD Work Phone: [address] [place] [address] Comment on above: Refill Request Bi-Weekly Outreach ( Recurring) for Chronic Disease Management, Bi-Weekly Outreach (Recurring) for Chronic Disease Management Start: 04-03-2025 End: 04-03-2025 ambulatory Elisa Starr MD Work Phone: [facility] [place] Start: 04-03-2025 End: 04-03-2025 Patient encounter procedure Elisa Starr MD Work Phone: [facility] Comment on above: Population Health Na vigation Outreach ([employer] ) Start: 04-01-2025 End: 04-01-2025 ambulatory Sheri Reddy RN Work Phone: [facility] Comment on above: Bi-Weekly Outreach ( Recurring) for Chronic Disease Management Start: 03-26-2025 End: 03-26-2025 ambulatory ELIZABETH PODLOGAR Facility:[facility] Start: 03-25-2025 End: 03-25-2025 Patient encounter procedure Jerri Palafox APRN.CNP Work Phone: Pain Management Comment on above: Muscle pain (Primary Dx); Cervical spine pain; Cervical spondylosis without myelopathy; Cervical spinal stenosis; DDD (degenerative disc disease), cervical Start: 03-25-2025 End: 03-25-2025 ambulatory JERRI PALAFOX Facility:[facility] Start: 03-19-2025 End: 03-19-2025 ambulatory Sheri Reddy RN Work Phone: [facility] Comment on above: Bi-Weekly Outreach ( Recurring) for Chronic Disease Management Start: 03-12-2025 End: 03-13-2025 Follow-up encounter Jean-Pierre Velazco MD Work Phone: Kidney Medicine Comment on above: Results Start: 03-11-2025 End: 03-11-2025 ambulatory ELISA STARR Facility:[facility] Start: 03-11-2025 End: 03-11-2025 ambulatory ELISA STARR Facility:[facility] Start: 03-11-2025 End: 03-11-2025 Patient encounter procedure Jean-Pierre Velazco MD Work Phone: Kidney Medicine Comment on above: Stage 3a chronic kid alysha disease (HCC) (Primary Dx); Hyponatremia; Essential hypertension; Chronic kidney disease-mineral and bone disorder; Diabetes mellitus type II (HCC); Hyperlipidemia, unspecified hyperlipidemia type Start: 03-03-2025 End: 03-06-2025 Telephone encounter Elisa Starr MD Work Phone: [facility] Comment on above: Patient Update Start: 02-25-2025 End: 02-25-2025 Office consultation new/estab patient 60 min Mare Calderon APRN.CNP Work Phone: Urology Comment on above: Nocturia (Primary Dx ); Screening for genitourinary condition; POP-Q stage 3 cystocele; Stage 3 chronic kidney disease, unspecified whether stage 3a or 3b CKD (HCC); Nonintractable headache, unspecified chronicity pattern, unspecified headache type Start: 02-25-2025 End: 02-25-2025 ambulatory ELISA STARR Facility:[facility] Start: 02-21-2025 End: 02-21-2025 Patient encounter procedure Elizabeth Og APRN.CNP Work Phone: [facility] Comment on above: Cervical pain (neck) (Primary Dx); Headache, unspecified headache type Start: 02-21-2025 End: 02-21-2025 ambulatory Elisa Starr MD Work Phone: [facility] Comment on above: Headache; neck pain; right shoulder/elbow pain Start: 02-03-2025 End: 02-04-2025 Refill Elisa Satrr MD Work Phone: [facility] Comment on above: Refill Request Start: 01-21-2025 End: 01-21-2025 ambulatory ELIZABETH PODLOGAR Facility:[facility] Start: 01-21-2025 End: 01-21-2025 Subsequent hospital visit by physician Marli [facility] (I-Stat) Work Phone: Cat Scan Comment on above: Periumbilical abdomi nal pain [R10.33] Start: 01-10-2025 End: 01-10-2025 Follow-up encounter Ana Serrato LPN [facility] [place] Start: 01-10-2025 End: 01-10-2025 ambulatory ELIZABETH PODLOGJULIET Facility:[facility] Start: 01-07-2025 End: 01-08-2025 Telephone encounter Elizabeth Og APRN.CNP Work Phone: [facility] [place] Comment on above: Patient Update Start: 01-07-2025 End: 01-07-2025 ambulatory ELISA STARR Facility:[facility] Start: 01-07-2025 End: 01-07-2025 Patient encounter procedure Elizabeth Og CANDACE Work Phone: [facility] Comment on above: Periumbilical abdomi nal pain (Primary Dx); LLQ pain Start: 01-03-2025 End: 01-03-2025 Follow-up encounter Elisa Starr MD Work Phone: [facility] Start: 01-01-2025 End: 01-03-2025 Follow-up encounter Elisa Starr MD Work Phone: [facility] [place] Start: 01-01-2025 End: 01-01-2025 Telephone encounter Elisa Starr MD Work Phone: [facility] [place] Comment on above: Patient Update Start: 01-01-2025 End: 01-01-2025 ambulatory ELISA STARR Facility:[facility] Start: 12-31-2024 End: 12-31-2024 ambulatory ELISA STARR Facility:[facility] Start: 12-30-2024 End: 12-31-2024 Follow-up encounter Elisa Starr MD Work Phone: [facility] Comment on above: Hyperlipidemia, unsp ecified hyperlipidemia type (Primary Dx); Diabetes mellitus type II (HCC); Nocturia Start: 12-27-2024 End: 02-26-2025 Follow-up encounter Elisa Starr MD Work Phone: [facility] Start: 12-27-2024 End: 12-27-2024 ambulatory ELISA STARR [facility] [facility] Start: 12-27-2024 End: 01-08-2025 Patient encounter procedure Elisa Starr MD Work Phone: [facility] [place] Comment on above: Diabetes mellitus ty pe II (HCC) (Primary Dx); Stage 3a chronic kidney disease (HCC); Hyponatremia; Essential hypertension, benign; Hyperlipidemia, unspecified hyperlipidemia type; Tethered spinal cord (HCC); Mild pulmonary hypertension (HCC); Nocturia; Interstitial pulmonary disease, unspecified (HCC); Hyperlipidemia associated with type 2 diabetes mellitus (HCC) (HCC) Refill Request Start: 12-25-2024 End: 12-25-2024 ambulatory ELISA STARR Facility:[facility] Start: 12-18-2024 End: 12-18-2024 ambulatory Sury Parker MA [facility] [place] [facility] [place] Start: 12-18-2024 End: 12-18-2024 Patient encounter procedure [facility] [place] [facility] [place] Comment on above: Population Health Na vigation Outreach ([employer] High Risk Attempt #1) Start: 12-03-2024 End: 12-03-2024 ambulatory Sheri Reddy RN Work Phone: Community Case Manager Management Comment on above: Initial enrollment o iqra for Chronic Disease Management Start: 12-03-2024 End: 12-03-2024 Telephone encounter Nyla Contreras [facility] Work Phone: [facility] Comment on above: Medication Question ([employer] Community Outreach) Start: 11-29-2024 End: 11-29-2024 Refill Elisa Starr MD Work Phone: Family Medicine [place] Comment on above: Refill Request Start: 11-25-2024 End: 11-25-2024 ambulatory ELISA STARR Facility:[facility] Start: 11-25-2024 End: 11-25-2024 Patient encounter procedure Jonna Benavides MD Work Phone: Cardiology Comment on above: Primary hypertension (Primary Dx); Microvascular angina (HCC); SVT (supraventricular tachycardia) (HCC) Start: 10-29-2024 End: 10-29-2024 Refill Elisa Starr MD Work Phone: Family Medicine [place] Comment on above: Refill Request Start: 10-25-2024 End: 10-25-2024 ambulatory ELISA STARR Facility:[facility] Start: 10-25-2024 End: 10-25-2024 Subsequent hospital visit by physician Screen Mammo [facility] M[facility] Comment on above: Encounter for screen ing mammogram for malignant neoplasm of breast [Z12.31] Start: 10-21-2024 End: 10-21-2024 Refill Elisa Starr MD Work Phone: [facility] Comment on above: Refill Request Start: 10-08-2024 End: 10-08-2024 ambulatory Sharifa Stewart RN Community Case Manager Management Comment on above: CDM (Telephonic outr each/) Start: 09-19-2024 End: 09-19-2024 Refill Elisa Starr MD Work Phone: [facility] [place] Comment on above: Refill Request Start: 09-16-2024 End: 09-16-2024 ambulatory ELISA STARR Facility:[facility] Start: 09-16-2024 End: 09-16-2024 Patient encounter procedure Abhishek Yi MD Work Phone: Orthopaedics Comment on above: Trigger ring finger of left hand (Primary Dx) Start: 09-06-2024 End: 09-06-2024 ambulatory Sharifa Stewart RN Community Case Manager Management Comment on above: CDM (Telephonic outr each/) Start: 09-05-2024 End: 09-05-2024 Refill Elisa Starr MD Work Phone: [facility] Comment on above: Refill Request (See Rx notes) Start: 09-04-2024 End: 09-04-2024 ambulatory Noelle Sutton MA [facility] [place] [facility] [place] Start: 09-04-2024 End: 09-04-2024 Patient encounter procedure Noelle [facility] [place] [facility] [place] Comment on above: Population Health Na vigation Outreach ([employer]/[facility] ) Start: 08-19-2024 End: 08-19-2024 Subsequent hospital visit by physician Xr [facility] [place] Work Phone: Radiology Comment on above: Acute left ankle denisha n [M25.572] Start: 08-19-2024 End: 08-19-2024 ambulatory ANJU HAIRSTON Facility:[facility] Start: 08-19-2024 End: 08-19-2024 Patient encounter procedure Anju Hairston PA-C Work Phone: Orthopaedics Comment on above: Acute left ankle denisha n; Acute pain of left knee; Trigger ring finger of left hand Start: 08-16-2024 End: 08-16-2024 Patient encounter procedure [facility] Nurse [place] Work Phone: [facility] Start: 08-16-2024 End: 08-16-2024 ambulatory Immun[facility] Nurse [place] Work Phone: [facility] Start: 08-07-2024 End: 08-07-2024 [facility] Work Phone: Pre Anesthesia Start: 08-07-2024 End: 08-07-2024 Anesthesia consultation [place] [id number] Work Phone: Pre Anesthesia Comment on above: Pre-operative examin ation (Primary Dx); Microvascular angina (HCC); Paroxysmal SVT (supraventricular tachycardia) ([facility]); Hyperlipidemia, unspecified hyperlipidemia type; Primary hypertension; ASHD (arteriosclerotic heart disease); Tethered spinal cord (HCC); Trigeminal neuralgia; Valvular heart disease; Mild pulmonary hypertension (HCC); Hiatal hernia; Esophageal dysphagia; Diverticulitis; Gastroesophageal reflux disease, unspecified whether esophagitis present; Chronic hypokalemia; Stage 3a chronic kidney disease (HCC); Diabetes mellitus type II (HCC); Postablative hypothyroidism; Age-related osteoporosis without current pathological fracture; Obesity, Class I, BMI 30-34.9; Interstitial pulmonary disease, unspecified (HCC) Start: 08-07-2024 End: 08-07-2024 Preprocedural examination done [place] [id number] Work Phone: [facility] Start: 08-07-2024 End: 08-07-2024 ambulatory Sharifa Stewart RN Community Case Manager Management Comment on above: CDM (Telephonic outr each/) Start: 08-01-2024 End: 08-01-2024 Telephone encounter Abhishek Yi MD Work Phone: Orthopaedics Comment on above: Schedule Surgery Start: 07-31-2024 End: 07-31-2024 Refill Elisa Starr MD Work Phone: [facility] [place] Comment on above: Refill Request Start: 07-29-2024 End: 07-29-2024 ambulatory ELISA STARR Facility:[facility] Start: 07-29-2024 End: 07-29-2024 Patient encounter procedure Abhishek Yi MD Work Phone: Orthopaedics Comment on above: Trigger ring finger of left hand (Primary Dx) Start: 07-23-2024 End: 07-23-2024 Telephone encounter Elisa Starr MD Work Phone: [facility] [place] Comment on above: Results Start: 07-22-2024 End: 07-22-2024 ambulatory ELISA STARR Facility:[facility] Start: 07-22-2024 End: 07-22-2024 Subsequent hospital visit by physician Bone Density [facility] Work Phone: Radiology Comment on above: Age-related osteopor osis without current pathological fracture [M81.0] Start: 07-09-2024 End: 07-09-2024 ambulatory Sharifa Stewart bung sewerCommunity Case Manager Management Comment on above: CDM (Telephonic outr each/) Start: 06-28-2024 End: 07-01-2024 Refill Elisa Starr MD Work Phone: [facility] [place] Comment on above: Refill Request Medication Problem Start: 06-26-2024 End: 06-26-2024 Patient encounter procedure Elizabeth Og APRN.CASH ACCOUNTING CLERK Work Phone: [facility] [place] Comment on above: Episodic lightheaded ness (Primary Dx); Diabetes mellitus type II (HCC); Diverticulitis Start: 06-14-2024 End: 06-14-2024 Emergency department patient visit Evangelist Starr Facility:[facility] Start: 06-14-2024 ambulatory Elisa Starr MD Work Phone: [facility] [place] Comment on above: Abdominal Pain Start: 05-31-2024 Telephone encounter Evangelist Starr MD Work Phone: [facility] [place] Comment on above: Results Start: 05-29-2024 End: 05-29-2024 Patient encounter procedure Elisa Starr MD Work Phone: [facility] [place] Comment on above: Episodic lightheaded ness (Primary Dx); Hypoglycemia; Hyponatremia; Essential hypertension, benign; Hyperlipidemia, unspecified hyperlipidemia type; ASHD (arteriosclerotic heart disease); Paroxysmal SVT (supraventricular tachycardia) (HCC); Postablative hypothyroidism; Prediabetes; Stage 3a chronic kidney disease (HCC); Age-related osteoporosis without current pathological fracture Start: 05-27-2024 End: 05-27-2024 Patient encounter procedure Jonna Benavides MD Work Phone: Cardiology Comment on above: Primary hypertension (Primary Dx); Paroxysmal SVT (supraventricular tachycardia) (HCC); Pure hypercholesterolemia; Microvascular angina (HCC) Start: 05-16-2024 ambulatory Sharifa Stewart RN Ambulato ry Care Management Comment on above: CDM (Telephonic outr each/) Start: 05-15-2024 Refill Elisa Starr MD Work Phone: [facility] [place] Comment on above: Refill Request Start: 05-14-2024 Orders Only Darnell colvin Work Phone: Vascular Surgery Comment on above: Transient visual los s of both eyes (Primary Dx) Start: 05-06-2024 End: 05-06-2024 Patient encounter procedure Anju Hairston PA-C Work Phone: Orthopaedics Comment on above: Trigger ring finger of left hand (Primary Dx) Start: 04-30-2024 Refill Elisa Starr MD Work Phone: [facility] [place] Comment on above: Refill Request Start: 04-17-2024 ambulatory Sharifa Stewart RN Ambulato ry Care Management Comment on above: CDM (Telephonic outr each/) Start: 04-10-2024 Refill Elisa Starr MD Work Phone: [facility] [place] Comment on above: Refill Request Start: 04-02-2024 ambulatory Sharifa Stewart RN Ambulato ry Care Management Comment on above: CDM (Telephonic outr each/) Start: 03-07-2024 Telephone encounter Evangelist Starr MD Work Phone: Family [facility] [place] Comment on above: Results Start: 03-06-2024 End: 03-06-2024 Patient encounter procedure Elisa Starr MD Work Phone: [facility] [place] Comment on above: Headache, unspecifie d headache type (Primary Dx); Trigger ring finger of left hand Start: 03-04-2024 ambulatory Jayda Pires MA [facility] [place] [facility] [place] Start: 03-04-2024 Patient encounter procedure Jayda Pires MA [facility] [place] [facility] [place] Comment on above: Population Health Na vigation Outreach (H@H) Start: 02-29-2024 Refill Elisa Starr MD Work Phone: [facility] [place] Comment on above: Refill Request Start: 02-28-2024 Telephone encounter Evangelist Starr MD Work Phone: [facility] [place] Comment on above: finger locking up Start: 02-27-2024 ambulatory Stephie Carballo RN Ambula tory Care Management Comment on above: CDM (Community [facility] ori Outreach Call) Start: 02-26-2024 End: 02-26-2024 Patient encounter procedure Behzad Kelley MD Work Phone: General Surgery Comment on above: Esophageal dysphagia (Primary Dx) Start: 02-22-2024 Refill Elisa Starr MD Work Phone: Family Medicine [place] Comment on above: Refill Request Start: 02-12-2024 Telephone encounter Evangelist Starr MD Work Phone: [facility] [place] Comment on above: Opened In Error Refill Request Start: 01-19-2024 Telephone encounter Elizabeth napoles APRN.CNP Work Phone: [facility] [place] Comment on above: Results Start: 01-17-2024 Telephone encounter Evangelist Starr MD Work Phone: [facility] Comment on above: Orders Start: 01-03-2024 ambulatory Sharifa Stewart RN Ambulato ry Care Management Comment on above: CDM (Telephonic outr each/) Start: 01-03-2024 End: 01-03-2024 Subsequent hospital visit by physician Behzad Kelley MD Work Phone: Ambulatory Surgery Comment on above: Esophageal dysphagia [R13.19] Start: 12-21-2023 End: 09-10-2024 Telephone encounter Behzad Kelley MD Work Phone: General Surgery Comment on above: 01/03/2024 EGD ASC Start: 12-12-2023 End: 12-12-2023 Emergency department patient visit Remus Christine Facility:[facility] Start: 12-11-2023 Refill Elisa Starr MD Work Phone: [facility] Comment on above: Refill Request Start: 10-26-2023 Telephone encounter Evangelist Starr MD Work Phone: [facility] Comment on above: Results Medication Request Start: 10-20-2023 Telephone encounter Evangelist Starr MD Work Phone: [facility] Comment on above: Orders (Abdelrahman order) Start: 10-11-2023 Refill Elisa Starr MD Work Phone: [facility] Comment on above: Refill Request Start: 09-27-2023 Refill Elisa Starr MD Work Phone: [facility] Comment on above: Refill Request Start: 09-19-2023 ambulatory Sharifa Stewart RN Ambulato [facility] Care Management Comment on above: CDM (Telephonic outr each/) Start: 08-22-2023 ambulatory Sharifa Stewart RN Ambulato ry Care Management Comment on above: CDM (Telephonic outr each) Start: 08-19-2023 End: 08-19-2023 ambulatory [facility] Nurse [place] Work Phone: [facility] Start: 07-28-2023 Telephone encounter Evangelist Starr MD Work Phone: [facility] [place] Comment on above: Medication question Start: 07-27-2023 End: 07-27-2023 Patient encounter procedure Elisa Starr MD Work Phone: [facility] [place] Comment on above: Thoracic radiculopat hy due to degenerative joint disease of spine; Cervical radiculopathy Start: 07-25-2023 ambulatory Jannie Nair Work Phone: Community Case Manager Management Comment on above: CDM (Check in call/) Start: 07-24-2023 Refill Elisa Starr MD Work Phone: [facility] [place] Comment on above: Refill Request Start: 07-14-2023 Refill Elisa Starr MD Work Phone: [facility] [place] Comment on above: Refill Request Start: 06-30-2023 Refill Elisa Starr MD Work Phone: [facility] [place] Comment on above: Refill Request Start: 06-26-2023 Refill Elisa Starr MD Work Phone: [facility] [place] Comment on above: Refill Request Start: 06-22-2023 ambulatory Jannie Yeager RN [facility] Start: 06-22-2023 Follow-up encounter Jannie Martinea R N Community Case Manager Management Comment on above: Community Monitoring Outreach (CDM follow up) Start: 06-21-2023 ambulatory Jannie Yeager RN [facility] Start: 06-21-2023 Follow-up encounter Jannie Marioea R N Community Case Manager Management Comment on above: Community Monitoring Outreach (CDM follow up) Start: 06-13-2023 Refill Elisa Starr MD Work Phone: [facility] [place] Comment on above: Refill Request Start: 06-06-2023 End: 06-06-2023 ambulatory Pulm Lab [facility] Work Phone: PULM LAB [facility] Comment on above: Spirometry Start: 06-06-2023 End: 06-06-2023 Patient encounter procedure Pulm Lab [facility] Work Phone: [facility] [place] Comment on above: Other chest pain (Pr imary Dx); SOB (shortness of breath) Start: 05-18-2023 ambulatory Sharifa Stewart RN Ambulato ry Care Management Comment on above: CDM (Telephonic outr each) Start: 05-02-2023 Refill Elisa Starr MD Work Phone: [facility] Comment on above: Refill Request Start: 04-10-2023 Telephone encounter Elizabeth napoles APRN.CASH ACCOUNTING CLERK Work Phone: [facility] Comment on above: Patient Update Start: 04-10-2023 End: 04-10-2023 Patient encounter procedure Elizabeth Og APRN.CASH ACCOUNTING CLERK Work Phone: [facility] Comment on above: Chronic right flank pain (Primary Dx); Chronic upper abdominal pain; Headache, unspecified headache type Start: 03-07-2023 Telephone encounter Zoya Almaraz APRN.CASH ACCOUNTING CLERK Work Phone: Cardiology Comment on above: Zio patch findings; Results Start: 02-22-2023 ambulatory Sharifa Stewart RN Amb[facility]ato [facility] Care Management Comment on above: CDM (Telephonic outr each) Start: 02-07-2023 End: 02-07-2023 Orders Only Zoya Almaraz APRN.CASH ACCOUNTING CLERK Work Phone: Cardiology Comment on above: Syncope, unspecified syncope type (Primary Dx) Syncope, unspecified syncope type (Primary Dx); Dyspnea on exertion; Primary hypertension; Hyperlipidemia, unspecified hyperlipidemia type; Paroxysmal SVT (supraventricular tachycardia) (HCC); Small vessel disease (HCC) [I73.9 (ICD-10-CM)]; Obesity, Class I, BMI 30-34.9; Pre-operative cardiovascular examination Start: 02-07-2023 End: 02-07-2023 Patient encounter status Zoya Almaraz APRN.CASH ACCOUNTING CLERK Work Phone: [facility] [place] Start: 02-06-2023 Telephone encounter Jonna Benavides MD Work Phone: [facility] [place] Comment on above: Efficiency Engineer - O ther (Clearance form ) Refill Request Start: 02-03-2023 Refill Elisa Starr MD Work Phone: [facility] [place] Comment on above: Refill Request Start: 01-30-2023 Refill Jonna Benavides MD Work Phone: Cardiology Comment on above: Refill Request Start: 01-27-2023 ambulatory Beatriz sims RN Work Phone: NURSE COMMUNICATIONS INTERN Comment on above: FYI-No Action Needed Start: 01-27-2023 Telephone encounter Jonna Benavides MD Work Phone: Cardiology Comment on above: ED Follow-up Start: 01-26-2023 End: 01-26-2023 Emergency department patient visit [facility] Start: 01-25-2023 ambulatory Sharifa Stewart RN Ambulato ry Care Management Comment on above: CDM (Telephonic outr each) Start: 01-18-2023 Refill Elisa Starr MD Work Phone: [facility] Comment on above: Refill Request Start: 12-27-2022 ambulatory Sharifa Stewart RN Ambulato ry Care Management Start: 12-27-2022 End: 12-27-2022 Subsequent hospital visit by physician Anny [facility] [place] Work Phone: Radiology Comment on above: Chest pain, unspecif ied type [R07.9] Start: 12-27-2022 End: 12-27-2022 Patient encounter procedure Elisa Starr MD Work Phone: [facility] [place] Comment on above: Chest pain, unspecif ied type (Primary Dx); Palpitations; Interstitial pulmonary disease, unspecified (HCC) Start: 12-26-2022 ambulatory Sharifa Stewart RN Ambulato ry Care Management Comment on above: community monitoring outreach (CDM monthly check in/) Start: 12-21-2022 Refill Elisa Starr MD Work Phone: [facility] [place] Comment on above: Refill Request Start: 12-06-2022 Refill Elisa Starr MD Work Phone: [facility] [place] Comment on above: Refill Request Start: 12-05-2022 ambulatory Beatriz sims RN Work Phone: Community Case Manager Management Comment on above: Community Monitoring Outreach (CDM) Population Health vigation Outreach (H@H [facility] CALL IN) Refill Request Start: 11-28-2022 ambulatory Beatriz sims RN Work Phone: Community Case Manager Management Comment on above: Community Monitoring Outreach (CDM) Start: 11-28-2022 End: 11-28-2022 Patient encounter procedure Elizabeth Og APRN.CASH ACCOUNTING CLERK Work Phone: [facility] Comment on above: Hypertension, unspec ified type (Primary Dx); Tethered spinal cord (HCC); Paroxysmal SVT (supraventricular tachycardia) (HCC); Chronic kidney disease, stage 3a (HCC); Right-sided back pain, unspecified back location, unspecified chronicity Start: 11-14-2022 ambulatory Beatriz sims RN Work Phone: Community Case Manager Management Comment on above: Community Monitoring Outreach (CDM) Start: 11-14-2022 End: 11-14-2022 Patient encounter procedure Jonna Benavides MD Work Phone: Cardiology Comment on above: Small vessel disease (HCC) [I73.9 (ICD-10-CM)] (Primary Dx); Primary hypertension; Valvular heart disease Start: 10-28-2022 Refill Elisa Starr MD Work Phone: [address] [place] [address] Comment on above: Refill Request Start: 10-24-2022 End: 10-24-2022 Patient encounter procedure Elizabeth Og APRN.CASH ACCOUNTING CLERK Work Phone: [facility] [place] Comment on above: Essential hypertensi on, benign (Primary Dx); ASHD (arteriosclerotic heart disease); Stage 3 chronic kidney disease, unspecified whether stage 3a or 3b CKD (HCC); Postablative hypothyroidism; Headache, unspecified headache type; Prediabetes Start: 10-18-2022 ambulatory Beatriz sims RN Work Phone: [facility] Start: 10-18-2022 Follow-up encounter Beatriz Ferrer RN Work Phone: Community Case Manager Management Comment on above: Community Monitoring Outreach (CDM Follow Up) Start: 09-28-2022 Telephone encounter Elizabeth napoles APRN.CASH ACCOUNTING CLERK Work Phone: [facility] Comment on above: Results Start: 09-27-2022 End: 09-27-2022 Patient encounter procedure Elizabeth Og BOWLING BALL ASSEMBLER.CASH ACCOUNTING CLERK Work Phone: [facility] Comment on above: Headache, unspecifie d headache type (Primary Dx); Nausea and vomiting, unspecified vomiting type Start: 09-19-2022 ambulatory Beatriz sims RN Work Phone: Community Case Manager Management Comment on above: Community Monitoring Outreach (CDM Telephonic) Start: 09-05-2022 ambulatory Tonia Naik RN Ambula tory Care Management Comment on above: insight cdm (Telepho cecy outreach) Start: 09-02-2022 End: 09-02-2022 ambulatory Mi Nurse Work Phone: [facility] [place] Start: 08-23-2022 Telephone encounter Abhishek ryan MD Work Phone: Orthopaedics Comment on above: Appointment Start: 08-22-2022 ambulatory Tonia Naik RN Ambula tory Care Management Comment on above: insight cdm (Telepho cecy outreach) Start: 08-17-2022 Refill Janel rodriguez [place] Start: 08-08-2022 ambulatory Tonia Naik RN Ambula tory Care Management Comment on above: insight cdm (Telepho cecy outreach) Start: 07-26-2022 ambulatory Tonia Naik RN Ambula tory Care Management Comment on above: insight cdm (Telepho cecy outreach) Start: 07-25-2022 Telephone encounter Evangelist Starr MD Work Phone: [facility] Comment on above: Medication Problem Start: 07-14-2022 Telephone encounter Abhishek ryan MD Work Phone: Orthopaedics Comment on above: Schedule Surgery Start: 07-06-2022 ambulatory Tonia Naik RN Ambula tory Care Management Comment on above: insight cdm (Telepho cecy outreach) Start: 07-02-2022 Refill Elisa Starr MD Work Phone: [facility] [place] Comment on above: Refill Request Start: 06-29-2022 Telephone encounter Abhishek ryan MD Work Phone: Radiology Comment on above: Imaging (MRI) Orders Start: 06-28-2022 Telephone encounter Abhishek ryan MD Work Phone: Orthopaedics Comment on above: Schedule Surgery Refill Request Start: 06-27-2022 End: 06-27-2022 Patient encounter procedure Abhishek Yi MD Work Phone: Orthopaedics Comment on above: Trigger ring finger of right hand (Primary Dx) Start: 06-15-2022 ambulatory Tonia Naik RN Ambula tory Care Management Comment on above: Insight cdm (Healthy at home outreach) Start: 06-14-2022 ambulatory Tonia Naik RN Ambula torvinicius Care Management Comment on above: Insight cdm (Telepho cecy outreach) Start: 06-09-2022 Refill Elisa Starr MD Work Phone: [facility] [place] Comment on above: Refill Request Start: 06-08-2022 End: 06-08-2022 Nursing evaluation of patient and report Mi Nurse Work Phone: [facility] [place] Comment on above: Essential hypertensi on, benign (Primary Dx) Start: 06-06-2022 ambulatory Tonia Naik RN Ambula tory Care Management Comment on above: insight cdm (telepho cecy outreach) Start: 05-16-2022 ambulatory Ana Robin MA [facility] [facility] [place] Comment on above: Population Health Na vigation Outreach ([employer] ) Start: 05-13-2022 ambulatory Tonia Naik RN Ambula tory Care Management Comment on above: insight enrollment ( telephonic outreach) Start: 05-11-2022 Telephone encounter Evangelist Starr MD Work Phone: [facility] [place] Comment on above: Rx refill; discontin ued medication Start: 05-10-2022 End: 05-10-2022 Nursing evaluation of patient and report Mi Nurse Work Phone: [facility] [place] Comment on above: Essential hypertensi on, benign (Primary Dx) Start: 05-10-2022 Telephone encounter Elizabeth napoles APRN.CASH ACCOUNTING CLERK Work Phone: [facility] [facility] Comment on above: Blood Pressure Check ; Appointment; Medication Update Start: 04-26-2022 Telephone encounter Evangelist Starr MD Work Phone: [facility] Comment on above: Results Start: 04-25-2022 End: 04-25-2022 Patient encounter procedure Elisa Starr MD Work Phone: [facility] Comment on above: Ankle swelling, righ t (Primary Dx); Generalized weakness; Essential hypertension, benign; Herpes zoster without complication Start: 04-25-2022 Telephone encounter Evangelist Starr MD Work Phone: [facility] [place] Comment on above: Patient Update Start: 04-05-2022 Refill Elisa Starr MD Work Phone: [facility] Comment on above: Refill Request Start: 03-28-2022 End: 03-28-2022 Patient encounter procedure Rafael Taylor MD Work Phone: Neurology Comment on above: Neck pain Start: 03-15-2022 End: 03-15-2022 Subsequent hospital visit by physician Mri [employer] [facility] (I-Stat/1.5t) Work Phone: Radiology Comment on above: Spinal stenosis of c ervical region [M48.02] Start: 02-28-2022 End: 02-28-2022 Patient encounter procedure Rafael Taylor MD Work Phone: Neurology Comment on above: Spinal stenosis of c ervical region Start: 02-17-2022 End: 02-17-2022 Subsequent hospital visit by physician Xr [facility] [place] Work Phone: Radiology Comment on above: Neck pain [M54.2] Start: 02-17-2022 End: 02-17-2022 Patient encounter procedure Abhishek Yi MD Work Phone: Orthopaedics Comment on above: Neck pain (Primary D x); Trigger finger, unspecified finger, unspecified laterality Start: 01-27-2022 Telephone encounter Evangelist Starr MD Work Phone: [facility] Comment on above: Trigger Finger Results Start: 07-30-2021 End: 07-30-2021 Subsequent hospital visit by physician Xr [facility] [place] Work Phone: Radiology Comment on above: Ground glass opacity present on imaging of lung [R91.8] Start: 04-23-2021 Telephone encounter Evangelist Starr MD Work Phone: [facility] Comment on above: Results Start: 09-10-2018 [facility] Facility :[facility] Start: 01-08-2018 End: 01-08-2018 [facility] Facility:[facility] Procedures Date Procedure Procedure Detail Performing Clinician Start: 02-25-2025 Urnls dip stick/tablet rgnt auto w/o microscopy Mare Calderon BOWLING BALL ASSEMBLER.CASH ACCOUNTING CLERK Work Phone: Start: 07-22-2024 BD DXA TRABECULAR BONE SCORE (TBS) Josué Starr MD Work Phone: Start: 07-22-2024 Dxa bone density study 1/> sites axial skel Elisa Starr MD Work Phone: Start: 05-06-2024 Injection 1 tendon sheath/ligament aponeurosis Anju Hairston PA-C Work Phone: Start: 01-18-2024 Lipid 1996 panel - Serum or Plasma Elizabeth Og BOWLING BALL ASSEMBLER.CASH ACCOUNTING CLERK Work Phone: Start: 01-03-2024 Esophagogastroduodenoscopy transoral diagnostic Behzad Kelley MD Work Phone: Start: 08-19-2023 INFLUENZA VACCINE, PRSV FREE, AGE 65+ YR, HIGH DOSE, QUADRIVALENT (FLUZONE HIGH-DOSE) Venkat Fletcher MD Work Phone: Start: 06-06-2023 Brncdilat rspse spmtry pre&post-brncdilat admn Alyx Marie MD Work Phone: Start: 01-26-2023 Plain chest X-ray Start: 12-27-2022 Radiologic exam chest 2 views Evangelist Starr MD Work Phone: Start: 12-27-2022 Ecg routine ecg w/least 12 lds i&r only [facility] Provider Start: 10-11-2022 Mammography Beatriz Ferrer RN Work Phone: Start: 09-27-2022 Lipid 1996 panel - Serum or Plasma Mulugeta Wyatt RN Work Phone: Start: 09-02-2022 INFLUENZA SEASONAL QUADRIVALENT HIGH DOSE AGE 65+ Elisa Starr MD Work Phone: Start: 03-15-2022 Mri spinal canal cervical w/o contrast matrl Nazia Lord PA-C Work Phone: Start: 02-17-2022 Radex spine cervical 4 or 5 views Lolita Yi MD Work Phone: Start: 02-17-2022 Injection 1 tendon sheath/ligament aponeurosis Abhishek Yi MD Work Phone: Start: 10-11-2021 Mammography Elisa Starr MD Work Phone: Start: 07-30-2021 Radiologic exam chest 2 views Evangelist Starr MD Work Phone: Start: 04-28-2021 Colonoscopy Elisa Starr MD Work Phone: Start: 02-06-2021 Adult depression screening assessment Elisa Starr MD Work Phone: SARS-CoV-2 & FLU Antigen (Rapid) Plan of Treatment Date Care Activity Detail Author Start: 04-28-2031 Colonoscopy COLONOSCOPY [facility] Start: 04-28-2031 COLORECTAL CANCER SCREENING COLORECTAL CANCER SCREENING [facility] Start: 04-28-2031 Screening for malignant neoplasm of colon [facility] Start: 01-17-2029 Lipid panel Lipid Screening [facility] Start: 09-27-2027 Lipid 1996 panel - Serum or Plasma Lipid Screening [facility] Start: 09-27-2027 Lipid panel Lipid Screening [facility] Start: 09-27-2027 LIPID SCREEN LIPID SCREEN [facility] Start: 05-16-2027 Diabetes Screening Diabetes Screening [facility] Start: 03-06-2027 Diabetes Screening Diabetes Screening [facility] Start: 01-17-2027 Diabetes Screening Diabetes Screening [facility] Start: 07-22-2026 Screening for osteoporosis Bone Density Screening [facility] Start: 07-19-2026 LIPID SCREEN LIPID SCREEN [facility] Start: 07-04-2026 Annual PCP Team Chronic Disease Visit Annual PCP Team Chronic Disease Visit [facility] Start: 07-04-2026 Creatinine measurement Serum Creatinine [facility] Start: 07-04-2026 Diabetic foot examination Diabetic Foot Exam [facility] Start: 05-29-2026 DIABETES SCREEN DIABETES SCREEN [facility] Start: 05-29-2026 Diabetes Screening Diabetes Screening [facility] Start: 05-05-2026 Glaucoma screening Dilated Retinal Exam [facility] Start: 03-26-2026 Annual PCP Team Chronic Disease Visit Annual PCP Team Chronic Disease Visit [facility] Start: 03-11-2026 Creatinine measurement Serum Creatinine [facility] Start: 02-21-2026 Annual PCP Team Chronic Disease Visit Annual PCP Team Chronic Disease Visit [facility] Start: 01-10-2026 Complete blood count Hemoglobin/Hematocrit [facility] Start: 01-07-2026 Annual PCP Team Chronic Disease Visit Annual PCP Team Chronic Disease Visit [facility] Start: 01-05-2026 End: 01-05-2026 Patient encounter procedure 01/05/2026 1:00 PM EST Office Visit Family Medicine [facility] [address] [facility] [place] [address] PodElizabeth dozier APRN.CASH ACCOUNTING CLERK [address] [place] [address] 6 month follow up Family Medicine [facility] Comment on above: 6 month follow up Start: 01-03-2026 Hemoglobin A1c measurement HbA1C [facility] Start: 12-31-2025 Hepatitis B surface antibody level LDL Cholesterol [facility] Start: 12-27-2025 Annual PCP Team Chronic Disease Visit Annual PCP Team Chronic Disease Visit [facility] Start: 12-27-2025 BP Controlled (<130/80) BP Controlled (<130/80) [facility] Start: 12-27-2025 Covid-19 Vaccine () Covid-19 Vaccine ( season) [facility] Comment on above: Postponed from 07/07/2024 (Declined at t his time) Start: 12-27-2025 DIABETES SCREEN DIABETES SCREEN [facility] Start: 12-27-2025 RSV Vaccine (1 - 1-dose 75+ series) RSV Vaccine (1 - 1-dose 75+ series) [facility] Comment on above: Postponed from 2023 (Declined at t his time) Start: 12-27-2025 Shingrix Vaccine (1 of 2) Shingrix Vaccine (1 of 2) [facility] Comment on above: Postponed from 1998 (Declined at t his time) Start: 12-27-2025 Urine microalbumin profile DTaP,Tdap,Td Vaccine (1 - Tdap) [facility] Comment on above: Postponed from 1967 (Declined at t his time) Start: 12-25-2025 Creatinine measurement Serum Creatinine [facility] Start: 12-25-2025 Hepatitis B screening Urine Albumin:Creatinine Ratio [facility] Start: 11-25-2025 BP Controlled (<130/80) BP Controlled (<130/80) [facility] Start: 11-24-2025 End: 11-24-2025 Patient encounter procedure 11/24/2025 1:20 PM EST Office Visit Cardiology [address] [place] [address] Jonna Benavides MD [address] [facility], [address] [place] [address] 1 year follow up Cardiology Comment on above: 1 year follow up Start: 11-18-2025 End: 11-18-2025 Patient encounter procedure 11/18/2025 1:00 PM EST Office Visit Family [place] [address] [place] [address] Cortez Leon APRN.CASH ACCOUNTING CLERK [address] [place] [address] follow up, hcc gap closure, Hyperlipidemia associated with type 2 diabetes mellitus (HCC), hgba1c [facility] Comment on above: follow up, hcc gap closure, Hyperlipidem ia associated with type 2 diabetes mellitus (HCC), hgba1c Start: 10-27-2025 End: 10-27-2025 Patient encounter procedure 10/27/2025 10:10 AM EST Appointment Mammogram [address] [place] [address] Dx: Screening mammogram for breast cancer [Z12.31] Mammogram Comment on above: Dx: Screening mammogram for breast cance r [Z12.31] Start: 09-27-2025 DIABETES SCREEN DIABETES SCREEN [facility] Start: 09-16-2025 End: 09-16-2025 Patient encounter procedure 09/16/2025 1:00 PM EST Office Visit Kidney Medicine [address] [place] [id number] Jean-Pierre Velazco I, MD [address] [place] [address] 6 month follow up Kidney Medicine Comment on above: 6 month follow up Start: 07-07-2025 Influenza vaccination Influenza Vaccine (#1) [facility] Start: 07-04-2025 End: 10-03-2025 Comprehensive metabolic 2000 panel - Serum or Plasma [facility] Comment on above: Expected: 07/04/2025, Expires: Start: 07-04-2025 End: 10-03-2025 Hemoglobin A1c in Blood [facility] Work Phone: Comment on above: Expected: 07/04/2025, Expires: Start: 07-04-2025 End: 10-03-2025 LIPID PANEL, NONFASTING LIPID PANEL, NONFASTING Lab Routine Hyperlipidemia associated with type 2 diabetes mellitus (HCC) Expected: 07/04/2025, Expires: 10/03/2025 [facility] Comment on above: Expected: 07/04/2025, Expires: Start: 07-04-2025 End: 07-04-2025 Patient encounter procedure 07/04/2025 12:00 PM EDT Office Visit Family Medicine [facility] [address] [place] [address] Elisa Starr MD [address] [place] [address] 6 month routine follow up/ wellness [facility] Comment on above: 6 month routine follow up/ wellness Start: 06-27-2025 End: 06-27-2025 Patient encounter procedure Family [facility] Comment on above: 6 month routine follow up 6 month routine foll ow up/ wellness Start: 06-26-2025 Annual PCP Team Chronic Disease Visit Annual PCP Team Chronic Disease Visit [facility] Start: 06-26-2025 BP Controlled (<130/80) BP Controlled (<130/80) [facility] in Start: 06-26-2025 Diabetic foot examination Diabetic Foot Exam [facility] Start: 06-24-2025 Hemoglobin A1c measurement HbA1C [facility] Start: 05-29-2025 Annual PCP Team Chronic Disease Visit Annual PCP Team Chronic Disease Visit [facility] Start: 05-29-2025 Complete blood count Hemoglobin/Hematocrit [facility] Start: 05-29-2025 Creatinine measurement Serum Creatinine [facility] Start: 05-16-2025 Creatinine measurement Serum Creatinine [facility] Start: 04-25-2025 DIABETES SCREEN DIABETES SCREEN [facility] Start: 04-08-2025 End: 04-08-2025 Patient encounter procedure 04/08/2025 10:00 AM EDT Office Visit Urology [address] [address] Mare Calderon, BOWLING BALL ASSEMBLER.CASH ACCOUNTING CLERK [address] [place] [address] 6 wk follow up Urology Comment on above: 6 wk follow up Start: 03-26-2025 End: 03-26-2025 Patient encounter procedure 03/26/2025 9:00 AM EDT Office Visit Family Medicine [facility] [address] [place] [address] Elizabeth Og APRN.CASH ACCOUNTING CLERK [address] [place] [address] blood pressure check per OV notes 03/11/25, also check pt's bp cuff [facility] Comment on above: blood pressure check per OV notes 03/11/25 , also check pt's bp cuff Start: 03-25-2025 End: 06-24-2025 Basic metabolic 2000 panel - Serum or Plasma BASIC METABOLIC PANEL Lab Routine Stage 3a chronic kidney disease (HCC) Expected: 03/25/2025, Expires: 06/24/2025 [facility] Comment on above: Expected: 03/25/2025, Expires: Start: 03-25-2025 End: 03-25-2025 Patient encounter procedure 03/25/2025 8:00 AM EDT Office Visit Pain Management [address] [address] Jerri Palafox APRN.CASH ACCOUNTING CLERK [address] [place] [address] Dx: Cervical spine pain [M54.2] Pain Management Comment on above: Dx: Cervical spine pain [M54.2] Start: 03-11-2025 End: 03-11-2025 Patient encounter procedure 03/11/2025 2:20 PM EDT Office Visit Kidney Medicine [address] [place] [address] Jean-Pierre Velazco I, MD [address] [place] [address] Stage 3a chronic kidney disease (HCC) [N18.31]; Hyponatremia [E87.1] Kidney Medicine Comment on above: Stage 3a chronic kidney disease (HCC) [N 18.31]; Hyponatremia [E87.1] Start: 03-11-2025 End: 03-11-2026 Cortisol [Mass/volume] in Serum or Plasma [facility] Comment on above: Expected: 03/11/2025, Expires: Start: 03-11-2025 End: 06-10-2025 Magnesium [Mass/volume] in Serum or Plasma [facility] Comment on above: Expected: 03/11/2025, Expires: Start: 03-11-2025 End: 03-11-2026 Osmolality of Serum or Plasma [facility] Comment on above: Expected: 03/11/2025, Expires: Start: 03-11-2025 End: 06-10-2025 Osmolality of Urine [facility] Work Phone: Comment on above: Expected: 03/11/2025, Expires: Start: 03-11-2025 End: 06-10-2025 Parathyrin.intact [Mass/volume] in Serum or Plasma [facility] Comment on above: Expected: 03/11/2025, Expires: Start: 03-11-2025 End: 06-10-2025 Sodium [Moles/volume] in Urine collected for unspecified duration [facility] Comment on above: Expected: 03/11/2025, Expires: Start: 03-11-2025 End: 03-11-2026 Thyrotropin [Units/volume] in Serum or Plasma [facility] Comment on above: Expected: 03/11/2025, Expires: Start: 03-11-2025 End: 06-10-2025 Urate [Mass/volume] in Serum or Plasma [facility] Comment on above: Expected: 03/11/2025, Expires: Start: 03-06-2025 Annual PCP Team Chronic Disease Visit Annual PCP Team Chronic Disease Visit [facility] Start: 03-06-2025 BP Controlled (<130/80) BP Controlled (<130/80) [facility] Start: 03-06-2025 Creatinine measurement Serum Creatinine [facility] Start: 02-25-2025 End: 02-25-2025 Patient encounter procedure 02/25/2025 10:40 AM EDT Office Visit Urology [address] [address] Mare Calderon APRN.CASH ACCOUNTING CLERK [address] [place] [address] Nocturia [R35.1] Urology Comment on above: Nocturia [R35.1] Start: 02-17-2025 End: 02-17-2025 Patient encounter procedure 02/17/2025 1:20 PM EDT Office Visit Family Medicine [facility] [address] [place] [address] Elisa Starr MD [address] [place] [address] Annual Wellness Exam [facility] [place] Comment on above: Annual Wellness Exam Start: 01-21-2025 End: 01-21-2025 Patient encounter procedure Cat Scan Comment on above: Periumbilical abdominal pain [R10.33]; Start: 01-17-2025 Creatinine measurement Serum Creatinine [facility] Start: 01-17-2025 Hepatitis B surface antibody level LDL Cholesterol [facility] Start: 01-07-2025 End: 04-08-2025 CBC W Auto Differential panel - Blood COMPLETE BLOOD COUNT AND DIFFERENTIAL Lab Routine Periumbilical abdominal pain LLQ pain Expected: 01/07/2025, Expires: 04/08/2025 [facility] Comment on above: Expected: 01/07/2025, Expires: Start: 01-07-2025 End: 01-07-2025 Patient encounter procedure 01/07/2025 1:40 PM EST Office Visit Family [facility] [address] [place] [address] Elizabeth Og APRN.CASH ACCOUNTING CLERK [address] [place] [address] Pain in lower stomach/increased urination persisting since last seen Family Medicine [facility] Comment on above: Pain in lower stomach/increased urinatio n persisting since last seen Start: 01-05-2025 DIABETES SCREEN DIABETES SCREEN [facility] Start: 01-01-2025 End: 04-02-2025 Bacteria identified in Urine by Culture [facility] Work Phone: Comment on above: Expected: 01/01/2025, Expires: Start: 12-30-2024 End: 03-31-2025 Bacteria identified in Urine by Culture BACTERIAL CULTURE, URINE Microbiology Routine Nocturia Expected: 12/30/2024, Expires: 03/31/2025 [facility] Comment on above: Expected: 12/30/2024, Expires: Start: 12-30-2024 End: 03-31-2025 Lipid 1996 panel - Serum or Plasma LIPID PANEL BASIC Lab Routine Hyperlipidemia, unspecified hyperlipidemia type Expected: 12/30/2024, Expires: 03/31/2025 [facility] Work Phone: Comment on above: Expected: 12/30/2024, Expires: Start: 12-27-2024 End: 03-28-2025 Comprehensive metabolic 2000 panel - Serum or Plasma COMPREHENSIVE METABOLIC PANEL Lab Routine Diabetes mellitus type II (HCC) Expected: 12/27/2024, Expires: 03/28/2025 [facility] Comment on above: Expected: 12/27/2024, Expires: Start: 12-27-2024 End: 03-28-2025 Hemoglobin A1c in Blood HEMOGLOBIN A1C Lab Routine Diabetes mellitus type II (HCC) Expected: 12/27/2024, Expires: 03/28/2025 [facility] Comment on above: Expected: 12/27/2024, Expires: Start: 12-27-2024 End: 03-28-2025 Microalbumin/Creatinine [Mass Ratio] in Urine ALBUMIN/CREATININE RATIO, URINE Lab Routine Diabetes mellitus type II (HCC) Expected: 12/27/2024, Expires: 03/28/2025 [facility] Work Phone: Comment on above: Expected: 12/27/2024, Expires: Start: 12-27-2024 End: 12-27-2024 Patient encounter procedure 12/27/2024 9:40 AM EST Office Visit Family Medicine [place] [address] [place] [address] Elisa Starr MD [address] [place] [address] 6 month follow up Family Medicine [facility] Comment on above: 6 month follow up Start: 11-29-2024 Annual PCP Team Chronic Disease Visit Annual PCP Team Chronic Disease Visit [facility] Start: 11-29-2024 Hemoglobin A1c measurement HbA1C [facility] Start: 11-25-2024 End: 11-25-2024 Patient encounter procedure 11/25/2024 9:20 AM EST Office Visit Cardiology [address] [place] [id number] Jonna Benavides MD [address] [facility], [address] [place], [place] [id number] 1 year f/u Cardiology Comment on above: 1 year f/u Start: 11-06-2024 Advance Directive Discussion Advance Directive Discussion [facility] Start: 11-06-2024 Medicare Advantage Annual Wellness Visit Medicare Advantage Annual Wellness Visit [facility] Start: 10-25-2024 End: 10-25-2024 Patient encounter procedure 10/25/2024 10:10 AM EST Appointment Mammogram [address] [place] [address] Mammogram Screening Mammogram Comment on above: Mammogram Screening Start: 09-16-2024 End: 09-16-2024 Patient encounter procedure 09/16/2024 10:45 AM EST Office Visit Orthopaedics [address] [place] [address] Abhishek Yi MD [address] [place] [address] Post op Left ring trigger finger release Orthopaedics Comment on above: Post op Left ring trigger finger release Start: 08-19-2024 End: 08-19-2024 Patient encounter procedure 08/19/2024 11:45 AM EDT Office Visit Orthopaedics [address] [place] [address] Anju Hairston PA-C [address] [place] [address] Post op Left ring trigger finger release Orthopaedics Comment on above: Post op Left ring trigger finger release Start: 08-16-2024 End: 08-16-2024 Patient encounter procedure 08/16/2024 9:30 AM EDT Immunization Family Medicine [facility] [address] [facility] [place] [address] Nati, Immunization Clinic Nurse [address] [place] [address] flu shot [facility] Comment on above: flu shot Start: 08-09-2024 End: 08-09-2024 Admission to same day surgery center 08/09/2024 11:33 AM EDT - 08/09/2024 12:23 PM EDT Surgery [facility] Surgery [address] [place] [address] Abhishek Yi MD [address] [facility] [place] [address] RELEASE TRIGGER FINGER [facility] Surgery Comment on above: RELEASE TRIGGER FINGER Start: 08-09-2024 Subsequent hospital visit by physician 08/09/2024 11:33 AM EDT Hospital Encounter [facility] Surgery [address] [place] [address] Abhishek Yi MD [address] [place] [address] Trigger ring finger of left hand [M65.342] [facility] Surgery Comment on above: Trigger ring finger of left hand [M65.34 2] Start: 08-09-2024 End: 08-09-2024 Tendon sheath incision RELEASE TRIGGER FINGER Trigger ring finger of left hand 08/09/2024 11:33 AM EDT [place] OR Start: 08-09-2024 End: 08-09-2024 Admission to same day surgery center 08/09/2024 9:40 AM EDT - 08/09/2024 10:30 AM EDT Surgery [facility] Surgery [address] [place] [address] Abhishek Yi MD [address] [place] [address] RELEASE TRIGGER FINGER [facility] Surgery Comment on above: RELEASE TRIGGER FINGER Start: 08-09-2024 Subsequent hospital visit by physician 08/09/2024 9:40 AM EDT Hospital Encounter [facility] Surgery [address] [place] [address] Abhishek Yi MD [address] [place] [address] Trigger ring finger of left hand [M65.342] [facility] Surgery Comment on above: Trigger ring finger of left hand [M65.34 2] Start: 08-09-2024 End: 08-09-2024 Tendon sheath incision [place] Start: 07-29-2024 End: 07-29-2024 Patient encounter procedure 07/29/2024 10:30 AM EDT Office Visit Orthopaedics [address] [place] [address] Abhishek Yi MD [address] [place] [address] trigger finger, hurting again last seen 05/06/24 Orthopaedics Comment on above: trigger finger, hurting again last seen 05/06/24 Start: 07-27-2024 Annual PCP Team Chronic Disease Visit Annual PCP Team Chronic Disease Visit [facility] Start: 07-22-2024 End: 07-22-2024 Patient encounter procedure 07/22/2024 7:45 AM EDT Appointment Radiology [address] [place] [id number] Age-related osteoporosis without current pathological fracture [M81.0] Radiology Comment on above: Age-related osteoporosis without current pathological fracture [M81.0] Start: 07-07-2024 Covid-19 Vaccine () Covid-19 Vaccine () [facility] Start: 07-07-2024 Covid-19 Vaccine ( season) Covid-19 Vaccine () [facility] Start: 07-07-2024 Influenza vaccination Influenza Vaccine (#1) [facility] Start: 06-26-2024 End: 06-26-2024 Patient encounter procedure 06/26/2024 10:20 AM EDT Office Visit Family Medicine [place] [address] [place] [address] Elizabeth Og APRN.CASH ACCOUNTING CLERK [address] [facility] [place] [address] 4 week follow up; frannie jhaveri [facility] Medicine [place] Comment on above: 4 week follow up; frannie kang Start: 05-29-2024 ANNUAL PCP TEAM CHRONIC DISEASE VISIT ANNUAL PCP TEAM CHRONIC DISEASE VISIT [facility] Start: 05-29-2024 End: 08-28-2024 Basic metabolic 2000 panel - Serum or Plasma [facility] Comment on above: Expected: 05/29/2024, Expires: Start: 05-29-2024 Creatinine measurement Serum Creatinine [facility] Start: 05-29-2024 SERUM CREATININE SERUM CREATININE [facility] Start: 05-29-2024 SHINGRIX VACCINE (1 of 2) SHINGRIX VACCINE (1 of 2) [facility] Comment on above: Postponed from 1998 (Declined at t his time) Start: 05-29-2024 End: 08-28-2024 Thyrotropin [Units/volume] in Serum or Plasma [facility] Comment on above: Expected: 05/29/2024, Expires: Start: 05-29-2024 Urine microalbumin profile [facility] Comment on above: Postponed from 1967 (Declined at t his time) Start: 05-29-2024 End: 05-29-2024 Patient encounter procedure 05/29/2024 10:00 AM EDT Office Visit Family [facility] [address] [place] [address] Elisa Starr MD [address] [place] [address] 6 month follow up [facility] Comment on above: 6 month follow up Start: 05-27-2024 End: 05-27-2024 Patient encounter procedure 05/27/2024 11:40 AM EDT Office Visit Cardiology [address] [place] [id number] Jonna Benavides MD [address], [address] [place], [place] [id number] patient said she needs to see provider before 1 year follow up. Cardiology Comment on above: patient said she needs to see provider b efore 1 year follow up. Start: 05-06-2024 End: 05-06-2024 Patient encounter procedure 05/06/2024 9:30 AM EDT Office Visit Orthopaedics [address] [place], [place] [phone] Anju Hairston PA-C [address] [place], [place] [id number] trigger ring finger of left hand Orthopaedics Comment on above: trigger ring finger of left hand Start: 05-05-2024 Influenza vaccination Influenza Vaccine (#1) [facility] Comment on above: Postponed from 07/07/2023 (Declined at t his time) Start: 04-23-2024 End: 04-23-2024 Patient encounter procedure 04/23/2024 8:00 AM EDT Office Visit Vasculary Surgery [address] [place], [place] [id number] H53.123 Carotid Doppler [facility] Comment on above: H53.123 Carotid Doppler Start: 04-10-2024 ANNUAL PCP TEAM CHRONIC DISEASE VISIT ANNUAL PCP TEAM CHRONIC DISEASE VISIT [facility] Start: 04-10-2024 BP CONTROLLED (<130/80) BP CONTROLLED (<130/80) [facility] Start: 04-07-2024 End: 07-07-2024 Comprehensive metabolic 2000 panel - Serum or Plasma COMPREHENSIVE METABOLIC PANEL Lab Routine Hyponatremia Expected: 04/07/2024, Expires: 07/07/2024 [facility] Work Phone: Comment on above: Expected: 04/07/2024, Expires: Start: 03-06-2024 End: 06-05-2024 Comprehensive metabolic 2000 panel - Serum or Plasma [facility] Work Phone: Comment on above: Expected: 03/06/2024, Expires: Start: 03-06-2024 End: 03-06-2024 Patient encounter procedure 03/06/2024 11:20 AM EDT Office Visit Family Medicine [facility] [address] [place], [place] [phone] Elisa Starr MD [address] [place], [place] [id number] multiple issues 40 min visit per provider [facility] Comment on above: multiple issues 40 min visit per provide r Start: 03-04-2024 End: 06-03-2024 Thyrotropin [Units/volume] in Serum or Plasma TSH BLD Lab Routine Postablative hypothyroidism Expected: 03/04/2024, Expires: 06/03/2024 [facility] Work Phone: Comment on above: Expected: 03/04/2024, Expires: Start: 01-27-2024 Screening for osteoporosis Bone Density Screening [facility] Start: 01-17-2024 End: 04-17-2024 Comprehensive metabolic 2000 panel - Serum or Plasma COMP METABOLIC PANEL Lab Routine Prediabetes Essential hypertension, benign Hyperlipidemia, unspecified hyperlipidemia type Expected: 01/17/2024, Expires: 04/17/2024 [facility] Work Phone: Comment on above: Expected: 01/17/2024, Expires: 4 Start: 01-17-2024 End: 04-17-2024 Hemoglobin A1c in Blood HGB A1C Lab Routine Prediabetes Expected: 01/17/2024, Expires: 04/17/2024 [facility] Work Phone: Comment on above: Expected: 01/17/2024, Expires: Start: 01-17-2024 End: 04-17-2024 Lipid 1996 panel - Serum or Plasma LIPID PANEL BASIC Lab Routine ASHD (arteriosclerotic heart disease) Essential hypertension, benign Hyperlipidemia, unspecified hyperlipidemia type Expected: 01/17/2024, Expires: 04/17/2024 [facility] Work Phone: Comment on above: Expected: 01/17/2024, Expires: Start: 01-17-2024 End: 04-17-2024 Thyrotropin [Units/volume] in Serum or Plasma TSH BLD Lab Routine Postablative hypothyroidism Expected: 01/17/2024, Expires: 04/17/2024 [facility] Work Phone: Comment on above: Expected: 01/17/2024, Expires: Start: 12-27-2023 ANNUAL PCP TEAM CHRONIC DISEASE VISIT ANNUAL PCP TEAM CHRONIC DISEASE VISIT [facility] Start: 12-27-2023 BP CONTROLLED (<130/80) BP CONTROLLED (<130/80) [facility] Start: 12-27-2023 Complete blood count Hemoglobin/Hematocrit [facility] Start: 12-27-2023 HEMOGLOBIN/HEMATOCRIT HEMOGLOBIN/HEMATOCRIT [facility] Start: 12-27-2023 SERUM CREATININE SERUM CREATININE [facility] Start: 11-28-2023 ANNUAL PCP TEAM CHRONIC DISEASE VISIT ANNUAL PCP TEAM CHRONIC DISEASE VISIT [facility] Start: 11-28-2023 BP CONTROLLED (<130/80) BP CONTROLLED (<130/80) [facility] in Start: 11-06-2023 Advance Directive Discussion Advance Directive Discussion [facility] Start: 11-06-2023 Behavioral Health Screening Behavioral Health Screening [facility] Start: 10-24-2023 ANNUAL PCP TEAM CHRONIC DISEASE VISIT ANNUAL PCP TEAM CHRONIC DISEASE VISIT [facility] Start: 10-24-2023 COVID-19 VACCINE (5 - Booster for Pfizer series) COVID-19 VACCINE (5 - Booster for Pfizer series) [facility] Comment on above: Postponed from 01/13/2022 (Declined at t his time) Start: 10-24-2023 COVID-19 VACCINE (5 - Pfizer series) COVID-19 VACCINE (5 - Pfizer series) [facility] Comment on above: Postponed from 01/13/2022 (Declined at t his time) Start: 10-11-2023 Mammography MAMMOGRAM [facility] Start: 09-27-2023 ANNUAL PCP TEAM CHRONIC DISEASE VISIT ANNUAL PCP TEAM CHRONIC DISEASE VISIT [facility] Start: 09-27-2023 Hepatitis B surface antibody level LDL CHOLESTEROL [facility] Start: 09-27-2023 SERUM CREATININE SERUM CREATININE [facility] Start: 08-31-2023 ANNUAL PCP TEAM CHRONIC DISEASE VISIT ANNUAL PCP TEAM CHRONIC DISEASE VISIT [facility] Start: 07-27-2023 End: 09-26-2023 PAIN PANEL, UR QUANT PAIN PANEL, UR QUANT Lab Routine 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 Cervical radiculopathy Expected: 07/27/2023, Expires: 09/26/2023 [facility] Work Phone: Comment on above: Expected: 07/27/2023, Expires: 3 Start: 07-27-2023 End: 09-26-2023 TOX SCREEN ROUT UR TOX SCREEN ROUT UR Lab Routine 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 Cervical radiculopathy Expected: 07/27/2023, Expires: 09/26/2023 [facility] Work Phone: Comment on above: Expected: 07/27/2023, Expires: 3 Start: 07-07-2023 Covid-19 Vaccine ( season) Covid-19 Vaccine ( season) [facility] Start: 07-07-2023 Influenza vaccination [facility] Start: 06-08-2023 BP CONTROLLED (<130/80) BP CONTROLLED (<130/80) [facility] Start: 04-25-2023 ANNUAL PCP TEAM CHRONIC DISEASE VISIT ANNUAL PCP TEAM CHRONIC DISEASE VISIT [facility] Start: 04-25-2023 HEMOGLOBIN/HEMATOCRIT HEMOGLOBIN/HEMATOCRIT [facility] Start: 04-25-2023 SERUM CREATININE SERUM CREATININE [facility] Start: 2023 RSV Vaccine (1 - 1-dose 75+ series) RSV Vaccine (1 - 1-dose 75+ series) [facility] Start: 01-26-2023 [facility] Start: 01-05-2023 ANNUAL PCP TEAM CHRONIC DISEASE VISIT ANNUAL PCP TEAM CHRONIC DISEASE VISIT [facility] Start: 01-05-2023 HEMOGLOBIN/HEMATOCRIT HEMOGLOBIN/HEMATOCRIT [facility] Start: 01-05-2023 SERUM CREATININE SERUM CREATININE [facility] Start: 12-27-2022 End: 02-26-2023 Comprehensive metabolic 2000 panel - Serum or Plasma [facility] Work Phone: Comment on above: Expected: 12/27/2022, Expires: Start: 12-27-2022 End: 02-26-2023 Magnesium [Mass/volume] in Serum or Plasma [facility] Work Phone: Comment on above: Expected: 12/27/2022, Expires: Start: 12-27-2022 End: 02-26-2023 Thyrotropin [Units/volume] in Serum or Plasma [facility] Work Phone: Comment on above: Expected: 12/27/2022, Expires: 3 Start: 11-06-2022 ADVANCE DIRECTIVE DISCUSSION ADVANCE DIRECTIVE DISCUSSION [facility] Start: 11-06-2022 DEPRESSION ASSESSMENT DEPRESSION ASSESSMENT [facility] Start: 10-27-2022 End: 12-27-2022 Comprehensive metabolic 2000 panel - Serum or Plasma COMP METABOLIC PANEL Lab Routine Prediabetes Expected: 10/27/2022, Expires: 12/27/2022 [facility] Work Phone: Comment on above: Expected: 10/27/2022, Expires: 3 Start: 10-27-2022 End: 12-27-2022 Hemoglobin A1c in Blood HGB A1C Lab Routine Prediabetes Expected: 10/27/2022, Expires: 12/27/2022 [facility] Work Phone: Comment on above: Expected: 10/27/2022, Expires: 3 Start: 10-27-2022 End: 12-27-2022 LIPID PANEL, NONFASTING LIPID PANEL, NONFASTING Lab Routine Prediabetes Expected: 10/27/2022, Expires: 12/27/2022 [facility] Work Phone: Comment on above: Expected: 10/27/2022, Expires: 3 Start: 10-11-2022 Mammography MAMMOGRAM [facility] Start: 07-19-2022 Hepatitis B surface antibody level LDL CHOLESTEROL [facility] Start: 07-07-2022 Influenza vaccination INFLUENZA (#1) [facility] Start: 04-25-2022 End: 06-25-2022 CBC W Auto Differential panel - Blood [facility] Work Phone: Comment on above: Expected: 04/25/2022, Expires: 2 Start: 04-25-2022 End: 06-25-2022 Comprehensive metabolic 2000 panel - Serum or Plasma [facility] Work Phone: Comment on above: Expected: 04/25/2022, Expires: 2 Start: 04-25-2022 End: 06-25-2022 Hemoglobin A1c in Blood [facility] Work Phone: Comment on above: Expected: 04/25/2022, Expires: 2 Start: 04-25-2022 End: 06-25-2022 Urate [Mass/volume] in Serum or Plasma [facility] Work Phone: Comment on above: Expected: 04/25/2022, Expires: 2 Start: 03-23-2022 BP CONTROLLED (<130/80) BP CONTROLLED (<130/80) [facility] in Start: 02-06-2022 Adult depression screening assessment DEPRESSION SCREENING [facility] Start: 01-13-2022 COVID-19 VACCINE (5 - Booster for Pfizer series) COVID-19 VACCINE (5 - Booster for Pfizer series) [facility] Start: 11-06-2021 ADVANCE DIRECTIVE DISCUSSION ADVANCE DIRECTIVE DISCUSSION [facility] Start: 11-06-2021 DEPRESSION ASSESSMENT DEPRESSION ASSESSMENT [facility] Start: 08-02-2020 FECAL OCCULT BLOOD FECAL OCCULT BLOOD [facility] Start: 08-02-2020 Screening for malignant neoplasm of colon Fecal Occult Blood [facility] Start: 2008 RSV Vaccine (1 - 1-dose 60+ series) RSV Vaccine (1 - 1-dose 60+ series) [facility] Start: 1998 SHINGRIX VACCINE (1 of 2) SHINGRIX VACCINE (1 of 2) [facility] Start: 1993 COLOGUARD (FIT-DNA) COLOGUARD (FIT-DNA) [facility] Start: [address] COLONOGRAPHY [facility] Start: 1993 Screening for malignant neoplasm of colon [facility] Start: 1993 SIGMOIDOSCOPY SIGMOIDOSCOPY [facility] Start: 1967 Urine microalbumin profile [facility] Start: 1966 Anxiety Screening Anxiety Screening [facility] Start: 1966 Depression Screening Depression Screening [facility] Start: 1958 Diabetic foot examination Diabetic Foot Exam [facility] Start: 1958 Glaucoma screening Dilated Retinal Exam [facility] Start: 1958 Hepatitis B screening Urine Albumin:Creatinine Ratio [facility] Bacteria identified in Urine by Culture BACTERIAL CULTURE, URINE Microbiology Routine Nocturia 12/31/2024 9:09 AM EST [facility] Basic metabolic 2000 panel - Serum or Plasma BASIC METABOLIC PANEL Lab Routine Stage 3a chronic kidney disease (HCC) 03/11/2025 3:41 PM EDT [facility] End: 06-28-2025 BD DXA TRABECULAR BONE SCORE (TBS) BD DXA TRABECULAR BONE SCORE (TBS) Radiology Routine Age-related osteoporosis without current pathological fracture 1 Occurrences starting 05/29/2024 until 06/28/2025 [facility] Comment on above: 1 Occurrences starting 05/29/2024 until 06/28/2025 BLADDER SCAN BLADDER SCAN Pro cedures Routine Nocturia Screening for genitourinary condition Ordered: 02/25/2025 [facility] Work Phone: Comment on above: Ordered: 02/25/2025 End: 02-06-2026 CT Abdomen and Pelvis W contrast IV CT ABD/PEL W IVCON Radiology Routine Periumbilical abdominal pain LLQ pain 1 Occurrences starting 01/07/2025 until 02/06/2026 [facility] Work Phone: Comment on above: 1 Occurrences starting 01/07/2025 until 02/06/2026 CT Abdomen and Pelvi s W contrast IV CT ABD/PEL W IVCON Radiology Routine Periumbilical abdominal pain LLQ pain 01/21/2025 2:38 PM EDT [facility] Work Phone: End: 06-28-2025 DXA Skeletal system.axial Views for bone density DXA-AXIAL SKELETON Radiology Routine Age-related osteoporosis without current pathological fracture 1 Occurrences starting 05/29/2024 until 06/28/2025 [facility] Work Phone: Comment on above: 1 Occurrences starting 05/29/2024 until 06/28/2025 ECG B/O W INTERP (ME D OFFICE) ECG B/O W INTERP (MED OFFICE) ECG Routine Primary hypertension Microvascular angina (HCC) SVT (supraventricular tachycardia) (HCC) Ordered: 11/25/2024 [facility] Work Phone: Comment on above: Ordered: 11/25/2024 End: 12-27-2023 ECG COMPLETE ECG COMPLETE ECG Routine Chest pain, unspecified type 1 Occurrences starting 12/27/2022 until 12/27/2023 [facility] Work Phone: Comment on above: 1 Occurrences starting 12/27/2022 until 12/27/2023 ECG COMPLETE ECG COMPLETE ECG 12/27/2022 10:50 AM [facility] End: 02-08-2024 Echocardiography ECHO Cardiology Routine Syncope, unspecified syncope type 1 Occurrences starting 02/07/2023 until 02/08/2024 [facility] Work Phone: Comment on above: 1 Occurrences starting 02/07/2023 until 02/08/2024 Lipid 1996 panel - S rickie or Plasma LIPID PANEL BASIC Lab Routine Hyperlipidemia, unspecified hyperlipidemia type 12/31/2024 9:01 AM [facility] End: 11-18-2024 ABDELRAHMAN SCREENING ABDELRAHMAN SCREENING Radiology Routine Encounter for other screening for malignant neoplasm of breast 1 Occurrences starting 10/21/2023 until 11/18/2024 [facility] Work Phone: Comment on above: 1 Occurrences starting 10/21/2023 until 11/18/2024 MG Breast Screening ABDELRAHMAN SCREENIN G Radiology Routine Encounter for screening mammogram for malignant neoplasm of breast 10/25/2024 10:06 AM EST [facility] Work Phone: End: 03-30-2023 Mri spinal canal cervical w/o contrast matrl MRI CERVICAL SPINE WO IVCON Radiology Routine Spinal stenosis of cervical region 1 Occurrences starting 02/28/2022 until 03/30/2023 [facility] Work Phone: Comment on above: 1 Occurrences starting 02/28/2022 until 03/30/2023 OUTSIDE VENDOR CARDI AC OUTPATIENT EXTENDED RHYTHM RECORDING (WITHOUT TELEMETRY) OUTSIDE VENDOR CARDIAC OUTPATIENT EXTENDED RHYTHM RECORDING (WITHOUT TELEMETRY) Holter Routine Syncope, unspecified syncope type Ordered: 02/07/2023 [facility] Work Phone: Comment on above: Ordered: 02/07/2023 Patient Education ED Fainting, U ncertain Cause [facility] Work Phone: Patient referral [facility] Work Phone: End: 06-15-2023 Screening mammography bi 2-view breast inc cad ABDELRAHMAN SCREENING Radiology Routine Screening mammogram for breast cancer 1 Occurrences starting 05/16/2022 until 06/15/2023 [facility] Work Phone: Comment on above: 1 Occurrences starting 05/16/2022 until 06/15/2023 SURGICAL PATHOLOGY [facility] Work Phone: Comment on above: Release Upon Ordering for 1 Occurrences starting 01/03/2024, 1 completed US Carotid arteries - bilateral US CAROTID ARTERIES [facility] Vascular Lab Routine Transient visual loss of both eyes 05/14/2024 7:55 AM EDT [facility] Work Phone: End: 09-18-2025 XR Ankle - left AP and Lateral and oblique XR ANKLE GENERAL 3V AP/LAT/OBL LEFT Radiology Routine Acute left ankle pain 1 Occurrences starting 08/19/2024 until 09/18/2025 [facility] Work Phone: Comment on above: 1 Occurrences starting 08/19/2024 until 09/18/2025 XR Ankle - left AP a nd Lateral and oblique XR ANKLE GENERAL 3V AP/LAT/OBL LEFT Radiology Routine Acute left ankle pain 08/19/2024 12:57 PM EDT [facility] End: 04-24-2026 XR Cervical spine AP and Lateral and oblique XR CERV OTHER 4V AP/LAT/OBL Radiology Routine Cervical spine pain 1 Occurrences starting 03/25/2025 until 04/24/2026 [facility] Work Phone: Comment on above: 1 Occurrences starting 03/25/2025 until 04/24/2026 XR Cervical spine AP and Lateral and oblique XR CERV OTHER 4V AP/LAT/OBL Radiology Routine Cervical spine pain 03/25/2025 8:47 AM EDT [facility] End: 09-18-2025 XR Knee - left 4 Views XR KNEE GENERAL 4V AP BOTH/PA BOTH/LAT/MERC LEFT Radiology Routine Acute left ankle pain Acute pain of left knee 1 Occurrences starting 08/19/2024 until 09/18/2025 [facility] Comment on above: 1 Occurrences starting 08/19/2024 until 09/18/2025 XR Knee - left 4 Views XR KNEE G ENERAL 4V AP BOTH/PA BOTH/LAT/MERC LEFT Radiology Routine Acute left ankle pain Acute pain of left knee 08/19/2024 12:56 PM EDT [facility] Immunizations Immunization Date Immunization Notes Care Provider Fa [facility] 08-16-2024 influenza, high dose seasonal, preservative-free Immunization [place] Work Phone: [facility] 08-16-2024 influenza virus vaccine, unspecified formulation Sheri Reddy RN Work Phone: [facility] 08-19-2023 influenza (HD-IIV4) vaccine, age 65+ yr, high dose, quadrivalent, PF (FLUZONE HIGH-DOSE) Immunization [facility] Work Phone: [facility] 08-19-2023 influenza virus vaccine, unspecified formulation Anju Hairston PA-C Work Phone: [facility] 09-02-2022 influenza, high-dose , quadrivalent vaccine (FLUZONE HIGH DOSE QUADRIVALENT) Mi Nurse Work Phone: [facility] Work Phone: 09-02-2022 influenza virus vaccine, unspecified formulation Jannie Wyatt RN Work Phone: [facility] 11-18-2021 COVID-19 vaccine, ag e 12+ yr (PFIZER-BIONTECH - [place] TOP) Elisa Starr MD Work Phone: [facility] Work Phone: 08-07-2021 influenza, high-dose , quadrivalent vaccine (FLUZONE HIGH DOSE QUADRIVALENT) Elisa Starr MD Work Phone: [facility] 03-02-2021 COVID-19 vaccine, ag e 12+ yr (PFIZER-BIONTECH - PURPLE TOP) Elisa Starr MD Work Phone: [facility] 02-09-2021 Covid (Pfizer) [place] 01-30-2021 COVID-19 vaccine, ag e 12+ yr (PFIZER-BIONTECH - PURPLE TOP) Elisa Starr MD Work Phone: [facility] 01-09-2021 COVID-19 vaccine, ag e 12+ yr (PFIZER-BIONTECH - PURPLE TOP) Elisa Starr MD Work Phone: [facility] 08-07-2020 influenza, high-dose , quadrivalent vaccine (FLUZONE HIGH DOSE QUADRIVALENT) Elisa Starr MD Work Phone: [facility] Work Phone: 08-06-2020 Influenza virus vaccine [facility] 08-06-2020 influenza, seasonal, injectable, preservative free Elisa Starr MD Work Phone: [facility] 08-12-2019 influenza, high dose seasonal, preservative-free Elisa Starr MD Work Phone: [facility] 07-15-2019 Influenza virus vaccine [facility] 07-15-2019 influenza, seasonal, injectable, preservative free Elisa Starr MD Work Phone: [facility] 08-20-2018 influenza, high dose seasonal, preservative-free Elisa Starr MD Work Phone: [facility] Work Phone: 09-18-2017 pneumococcal polysaccharide vaccine, 23 valdavid Starr MD Work Phone: [facility] Work Phone: 08-07-2017 influenza, high dose seasonal, preservative-free Elisa Starr MD Work Phone: [facility] 08-12-2016 influenza, high dose seasonal, preservative-free Elisa Starr MD Work Phone: [facility] 01-21-2016 pneumococcal conjuga te vaccine, 13 valent Elisa Starr MD Work Phone: [facility] 09-19-2015 influenza, high dose seasonal, preservative-free Elisa Starr MD Work Phone: [facility] Work Phone: 10-21-2014 influenza, high dose seasonal, preservative-free Elisa Starr MD Work Phone: [facility] 08-31-2013 influenza virus vaccine, unspecified formulation Elisa Starr MD Work Phone: [facility] Work Phone: 09-06-2012 influenza virus vaccine, unspecified formulation Elisa Starr MD Work Phone: [facility] 05-07-2012 pneumococcal polysaccharide vaccine, 23 valent Elisa Starr MD Work Phone: [facility] 08-27-2011 influenza virus vaccine, unspecified formulation Elisa Starr MD Work Phone: [facility] Work Phone: 08-26-2010 influenza virus vaccine, unspecified formulation Elisa Starr MD Work Phone: [facility] Work Phone: 08-06-2009 influenza virus vaccine, unspecified formulation Elisa Starr MD Work Phone: [facility] 09-10-2008 influenza virus vaccine, unspecified formulation Elisa Starr MD Work Phone: [facility] Work Phone: 09-03-2007 influenza virus vaccine, unspecified formulation Elisa Starr MD Work Phone: [facility] Work Phone: 09-04-2006 influenza virus vaccine, unspecified formulation Elisa Starr MD Work Phone: [facility] Work Phone: 09-13-2005 influenza virus vaccine, unspecified formulation Elisa Starr MD Work Phone: [facility] Work Phone: Payers Date Payer Category Payer Self-pay [id number] 2021 Medicare [id number] 2021 Medicare (Managed Care) YASMINE [place] [id number] 2021 Private Health Insurance [id number] 2020 Medicare [id number] Medicare [id number] Medicare MEDICARE PART A B [id number] Unknown [employer] [place] [id number] Unknown [employer] [facility] [id number] Unknown [id number] Unknown [id number] Social History Date Type Detail Facility Start: 03-29-2016 End: 06-26-2024 Tobacco smoking status OHIS Ex-smoker [facility] Work Phone: History of tobacco use Cigarette Smoker [facility] Work Phone: Start: 01-27-2022 End: 07-04-2025 Alcohol intake Current non-drinker of alcohol (finding) [facility] Start: 07-31-2020 History SDOH Food Worry 1 [facility] Start: 07-31-2020 History SDOH Transpo rt Med 2 [facility] Start: 03-29-2016 End: 08-31-2022 Tobacco Comment Smoked 1 year or less in 1980s. Spouse was smoker in home for 39 years. Father smoked in childhood home. [facility] Start: 1950 Sex Assigned At Not on file [facility] Start: 06-19-2021 End: 05-11-2022 Exposure to SARS-CoV-2 (event) Not sure [facility] Work Phone: History of tobacco use Current smoker [facility] Work Phone: Start: 03-29-2016 End: 04-10-2023 Cigarettes smoked current (pack per day) - Reported 0.1 [facility] Work Phone: Start: 03-29-2016 End: 06-26-2024 Tobacco use and exposure Smokeless tobacco non-user [facility] Work Phone: Start: 01-26-2023 Tobacco smoking stat us NHIS Unknown if ever smoked [facility] Start: 07-15-2020 None [place] Start: 03-09-2021 Homeless [place] Start: 03-30-2021 Non-smoker [place] Start: 1950 Sex Assigned At Female [facility] Start: 04-10-2023 End: 12-03-2024 Tobacco use panel [facility] Work Phone: Start: 10-07-2012 National Score (1-10 0), lower number is lower risk 62 [facility] Work Phone: (I/We) worried wheth er (my/our) food would run out before (I/we) got money to buy more. Never true [facility] How hard is it for y ou to pay for the very basics like food, housing, medical care, and heating Hard [facility] Work Phone: In the past 12 month s, was there a time when you were not able to pay the mortgage or rent on time? No [facility] Medical Equipment Procedure Code Equipment Code Equipment Origin al Text Equipment Identifier Dates Test blood sugar (s) 1 times daily. Dx: Prediabetes Insulin: No [id number], [id number], [id number], [id number] Start: 10-27-2021 End: 01-06-2025 Comment on above: Test blood sugar(s) 1 times daily. Dx: Prediabetes Insulin: No Goals Date Patient Goal Desired Activity /State Personal health goal Comment on above: Formatting of this n ote might be different from the original. Patient goal: maintain current health status Patient plan: pcp/specialist follow through, avoid falls Time frame: ongoing Personal health goal Comment on above: Formatting of this n ote might be different from the original. Patient has the following Chronic Kidney Disease goals: Two PCP visits annually Education provided and reviewed with patient - sent on 07/25/23 CKD LIDIA Education - CKD (ALL) Patient will meet these goals by: 07/24/24 (describe interventions done by PCC) Formatting of this n ote might be different from the original. Patient has the following Chronic Kidney Disease goals: Two PCP visits annually Education provided and reviewed with patient - sent on 07/25/23 CKD LIDIA Education - CKD (ALL) Patient will meet these goals by: 11/05/24 (describe interventions done by PCC) Personal health goal Comment on above: Formatting of this n ote might be different from the original. This patient has the following Diabetes Health Maintenance goals: HBA1C drawn in last 10 months, Annual PCP visit, HBA1C < 8, Diabetic yearly eye screening, Diabetic foot exam, Medication Adherence, Consult to Diabetes education., and If Hba1c >= 8 referral to pharmacy This patient has the following education goals: Blood Sugar Monitoring: Importance of Patient will meet these goals by: 11/05/24 (describe interventions done by PCC) Comment on above: Formatting of this n ote might be different from the original. Maintain healthy BS Comment on above: Formatting of this n ote might be different from the original. Patient goal: maintain current health status Patient plan: pcp/specialist follow through, avoid falls Time frame: ongoing Functional Status Date Assessment Result Facility 01-04-2016 Are you deaf, or do you have serious difficulty hearing No 01/04/2016 2:37 PM Alison Linda RN No [facility] 01-04-2016 Are you blind, or do you have serious difficulty seeing, even when wearing glasses No 01/04/2016 2:37 PM Alison Linda RN No [facility] 01-04-2016 Do you have serious difficulty walking or climbing stairs No 01/04/2016 2:37 PM Alison Linda, LOLI No [facility] 01-04-2016 Do you have difficul ty dressing or bathing No 01/04/2016 2:37 PM Alison Linda, LOLI No [facility] 01-04-2016 Because of a physica l, mental, or emotional condition, do you have difficulty doing errands alone such as visiting a physician's office or shopping No 01/04/2016 2:37 PM Alison Linda, LOLI No [facility] Mental Status Date Assessment Result Facility 03-23-2023 Cognitive function Level Of Cons ciousness Awake;Alert;Appropriate;Fol lows Commands [facility] Work Phone: 01-04-2016 Because of a physica l, mental, or emotional condition, do you have serious difficulty concentrating, remembering, or making decisions No 01/04/2016 2:37 PM Alison Linda, RN No [facility] Clinical Notes 07-12-2018 to 07-08-2025 Telephone Encounter - Jayshree Banda MA - 07/08/2025 2:43 PM EDTTelephone Encounter - Jayshree Banda MA - 07/08/2025 2:43 PM EDTPatient Stefany Cohen MA - 06/26/2025 1:56 PM EDT Note Date & Type Note Facility 07-08-2025 Telephone encounter Note Patient informed and verbalized understanding. Jayshree Banda MA [facility] 07-08-2025 Miscellaneous Notes Patient informed and verbalized understanding. Jayshree Banda MA ----- Message from Elisa Starr MD sent at 07/08/2025 10:39 AM EDT ----- Labs show diabetes is well controlled on current regimen. Kidney function stable in CKD stage 3a range and sodium level slightly low which is chronic/stable. Recommend low sodium diet <2,000 mg per day, avoidance of NSAIDs, and increased water intake. ----- Message ----- From: Lab, Background User Sent: 07/05/2025 10:21 AM EDT To: Elisa Starr MD documented in this encounter [facility] 07-08-2025 Telephone encounter Note ----- Message from Elisa Starr MD sent at 07/08/2025 10:39 AM EDT ----- Labs show diabetes is well controlled on current regimen. Kidney function stable in CKD stage 3a range and sodium level slightly low which is chronic/stable. Recommend low sodium diet <2,000 mg per day, avoidance of NSAIDs, and increased water intake. ----- Message ----- From: Lab, Background User Sent: 07/05/2025 10:21 AM EDT To: Elisa Starr MD [facility] 07-04-2025 Instructions Elisa Starr MD - 07/04/2025 12:25 PM EDT - Continue your nightly regimen of Miralax plus two stool softeners to maintain regular bowel movements. - Use Tylenol as needed for pain or sleep-related discomfort; do not take ibuprofen or Aleve. - Have blood drawn today for: A1c (3-month average of your blood sugar) Kidney function panel (including sodium and potassium) - Continue checking your blood sugar at home and recording your readings. - Maintain a low-salt diet as you have been doing. - Check your feet daily (tops and bottoms) and apply unscented lotion twice a day to any dry areas on your feet and the dry patch on your left arm. - For your hiatal hernia, take small bites, chew thoroughly, and drink water with each meal; if swallowing becomes more difficult, let your GI doctor or us know. - At your next visit with your [facility] senior developer, mention any dry patches, skin tags, or spots you d like checked. - Schedule flu and COVID-19 vaccines in the fall--aim for around August when they become available. - Continue routine follow-up with your kidney specialist in September. - Keep your annual cardiology appointment for your SVT; if you develop new chest pain or palpitations, go to the hospital or contact your technical publications writer right away. - Once your lab results return, call the office to set up your six-month check-up. documented in this encounter [facility] 07-04-2025 Note HNO ID: [id number] Author: ELISA STARR MD Service: ? Author Type: Physician Type: Progress Notes Filed: 07/04/2025 12:46 Note Text: Chief Complaint Patient presents with: 6 Month Exam Recording using ambient [employer] software for draft documentation of the visit was discussed with the patient/authorized pharmaceutical specialty representative; all questions welcomed and answered. Patient/authorized pharmaceutical specialty representative agreed to proceed HPI Tashia Fernandez is a 75 year old female who presents here today for Above Complaints. Diabetes Mellitus: - Tashia Fernandez monitors blood glucose levels at home; readings typically in the 90s. - Highest recorded blood glucose was 120 mg/dL. - Recent reading of 111 mg/dL attributed to consuming cake the previous night. - Lowest recorded blood glucose was 82 mg/dL. - Managed with diet; not on Metformin. - Nocturia noted; [place] denies polyphagia, polydipsia, or vision changes. - Regularly checks feet for wounds or injuries; [place] denies new rashes or injuries. - Recent eye exam on June [address] Resendiz at [facility]; no significant changes reported. Chronic Kidney Disease: - Recent nephrology consultation for decreased kidney function and hyponatremia; spring machine operator reported stable condition. - Next nephrology appointment scheduled for September. - Tashia adheres to a low-sodium diet; avoids NSAIDs as per spring machine operator's advice. - Takes Tylenol occasionally for pain, especially at night. Supraventricular Tachycardia: - Managed with Labetalol; Tashia adheres to prescribed dosage. - No recent episodes of chest pain, dyspnea, or palpitations. Hiatal Hernia: - Managed by Dr. Kelley. - Occasional dysphagia; Tashia denies worsening symptoms. - Underwent EGD last year with no significant findings. - Manages symptoms by taking small bites, chewing thoroughly, and drinking water with meals. Osteoporosis: - Tashia takes Fosamax once a week. Constipation: - Managed with Miralax and two stool softeners nightly; Tashia reports regular bowel movements. Urinary Retention: - Previously prescribed medication by a urologist, which was discontinued after one month due to daytime urinary retention. - [place] denies current urinary incontinence; not interested in new medication. Skin Concerns: - [place] reports a persistent dry patch on the left arm and bothersome skin tags. - Applies Vicks VapoRub to feet nightly for moisture. Past medical history, appointments, medications, allergies reviewed. Previous Medical History PAST MEDICAL HISTORY Diagnosis Date Contact dermatitis and other eczema Degenerative arthritis of knee 05/24/2011 Delayed gastric emptying 07/24/2012 Diabetes mellitus type II (HCC) 05/31/2024 Diarrhea Diverticulitis Diverticulosis of colon (without mention of hemorrhage) Diverticulosis Dysphagia, unspecified 08/29/2017 Elevated alkaline phosphatase level 07/12/2018 Essential hypertension, benign GERD (gastroesophageal reflux disease) Hiatal hernia Hyperlipidemia Hypokalemia 09/25/2012 Hyponatremia Hypothyroidism Impaired fasting glucose 11/19/2015 Inadequate pelvic muscles 01/17/2012 Lumbar disc disease with radiculopathy 09/01/2016 Lung nodule < 6cm on CT 10/15/2018 10/07/18: incidental 4.5 mm nodule RML thyrotoxicosis Nonrheumatic mitral (valve) insufficiency Obesity Other osteoporosis 12/21/2006 Pancreatitis (HCC) Paroxysmal SVT (supraventricular tachycardia) (HCC) Personal history of colonic polyps Colon polyps POLYP STOMACH 07/13/2007 Stage 3a chronic kidney disease (HCC) Statin intolerance 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--surgery not needed (2015) Trigeminal neuralgia 10/11/2011 Trochanteric bursitis of left hip 07/24/2012 Unspecified hemorrhoids without mention of complication Hemorrhoids Previous Surgical History PAST SURGICAL HISTORY Procedure Laterality Date COLONOSCOPY FLX DX W/COLLJ SPEC WHEN PFRMD 12/2018 Colonoscopy COLONOSCOPY FLX DX W/COLLJ SPEC WHEN PFRMD 07/13/2007 Lax colon COLONOSCOPY FLX DX W/COLLJ SPEC WHEN PFRMD 03/26/2014 Colonoscopy COLONOSCOPY FLX DX W/COLLJ SPEC WHEN PFRMD 12/2018 [id number] 10 years COLONOSCOPY GEN ANES 04/28/2021 DECOMPRESSION PLANTAR DIGITAL NERVE 2000 heel spur/ plantar fasciitis repair Rt EGD 06/02/2021 EGD TRANSORAL BIOPSY SINGLE/MULTIPLE 07/13/2007 Gastritis, fundic gland polyps EGD W/O [facility] SPEC VARICIES INJ 01/03/2024 Dr. Kelley ESOPHAGOGASTRODUODENOSCOPY TRANSORAL DIAGNOSTIC 03/26/2014 EGD EYE SURGERY HX INCISE FINGER TENDON SHEATH Left 08/09/2024 Left ring trigger finger release LAPAROSCOPY SURG CHOLECYSTECTOMY Cholecystectomy, lap LIG/TRNSXJ FLP TUBE ABDL/VAG APPR UNI/BI LIGATE FALLOPIAN TUBE NEUROPLASTY AND/TRANSPOS MEDIAN NRV CARPAL TUNNE Carpal tunnel decomp bilateral OPEN REPAIR OF ROTATOR CUFF ACUTE 1991 Rotator cuff r (more content not included)... [facility] 07-04-2025 History of Present illness Narrative Chief Complaint Patient presents with: 6 Month Exam Recording using [employer] software for draft documentation of the visit was discussed with the patient/authorized pharmaceutical specialty representative; all questions welcomed and answered. Patient/authorized pharmaceutical specialty representative agreed to proceed HPI Tashia Fernandez is a 75 year old female who presents here today for Above Complaints. Diabetes Mellitus: - Tashia Fernandez monitors blood glucose levels at home; readings typically in the 90s. - Highest recorded blood glucose was 120 mg/dL. - Recent reading of 111 mg/dL attributed to consuming cake the previous night. - Lowest recorded blood glucose was 82 mg/dL. - Managed with diet; not on Metformin. - Nocturia noted; [place] denies polyphagia, polydipsia, or vision changes. - Regularly checks feet for wounds or injuries; Tashia denies new rashes or injuries. - Recent eye exam on June [address]end[address] at [facility]; no significant changes reported. Chronic Kidney Disease: - Recent nephrology consultation for decreased kidney function and hyponatremia; spring machine operator reported stable condition. - Next nephrology appointment scheduled for September. - Tashia adheres to a low-sodium diet; avoids NSAIDs as per spring machine operator's advice. - Takes Tylenol occasionally for pain, especially at night. Supraventricular Tachycardia: - Managed with Labetalol; Tashia adheres to prescribed dosage. - No recent episodes of chest pain, dyspnea, or palpitations. Hiatal Hernia: - Managed by Dr. Kelley. - Occasional dysphagia; Tashia denies worsening symptoms. - Underwent EGD last year with no significant findings. - Manages symptoms by taking small bites, chewing thoroughly, and drinking water with meals. Osteoporosis: - Tashia takes Fosamax once a week. Constipation: - Managed with Miralax and two stool softeners nightly; [place] reports regular bowel movements. Urinary Retention: - Previously prescribed medication by a urologist, which was discontinued after one month due to daytime urinary retention. - [place] denies current urinary incontinence; not interested in new medication. Skin Concerns: - [place] reports a persistent dry patch on the left arm and bothersome skin tags. - Applies Vicks VapoRub to feet nightly for moisture. Past medical history, appointments, medications, allergies reviewed. Previous Medical History PAST MEDICAL HISTORY Diagnosis Date Contact dermatitis and other eczema Degenerative arthritis of knee 05/24/2011 Delayed gastric emptying 07/24/2012 Diabetes mellitus type II (HCC) 05/31/2024 Diarrhea Diverticulitis Diverticulosis of colon (without mention of hemorrhage) Diverticulosis Dysphagia, unspecified 08/29/2017 Elevated alkaline phosphatase level 07/12/2018 Essential hypertension, benign GERD (gastroesophageal reflux disease) Hiatal hernia Hyperlipidemia Hypokalemia 09/25/2012 Hyponatremia Hypothyroidism Impaired fasting glucose 11/19/2015 Inadequate pelvic muscles 01/17/2012 Lumbar disc disease with radiculopathy 09/01/2016 Lung nodule < 6cm on CT 10/15/2018 10/07/18: incidental 4.5 mm nodule RML thyrotoxicosis Nonrheumatic mitral (valve) insufficiency Obesity Other osteoporosis 12/21/2006 Pancreatitis (HCC) Paroxysmal SVT (supraventricular tachycardia) ([facility]) Personal history of colonic polyps Colon polyps POLYP STOMACH 07/13/2007 Stage 3a chronic kidney disease (HCC) Statin intolerance 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--surgery not needed (2015) Trigeminal neuralgia 10/11/2011 Trochanteric bursitis of left hip 07/24/2012 Unspecified hemorrhoids without mention of complication Hemorrhoids Previous Surgical History PAST SURGICAL HISTORY Procedure Laterality Date COLONOSCOPY FLX DX W/COLLJ SPEC WHEN PFRMD 12/2018 Colonoscopy COLONOSCOPY FLX DX W/COLLJ SPEC WHEN PFRMD 07/13/2007 Lax colon COLONOSCOPY FLX DX W/COLLJ SPEC WHEN PFRMD 03/26/2014 Colonoscopy COLONOSCOPY FLX DX W/COLLJ SPEC WHEN PFRMD 12/2018 [id number] 10 years COLONOSCOPY GEN ANES 04/28/2021 DECOMPRESSION PLANTAR DIGITAL NERVE 2000 heel spur/ plantar fasciitis repair Rt EGD 06/02/2021 EGD TRANSORAL BIOPSY SINGLE/MULTIPLE 07/13/2007 Gastritis, fundic gland polyps EGD W/O [facility] SPEC VARICIES INJ 01/03/2024 Dr. Kelley ESOPHAGOGASTRODUODENOSCOPY TRANSORAL DIAGNOSTIC 03/26/2014 EGD EYE SURGERY HX INCISE FINGER TENDON SHEATH Left 08/09/2024 Left ring trigger finger release LAPAROSCOPY SURG CHOLECYSTECTOMY Cholecystectomy, lap LIG/TRNSXJ FLP TUBE ABDL/VAG APPR UNI/BI LIGATE FALLOPIAN TUBE NEUROPLASTY &/TRANSPOS MEDIAN NRV CARPAL TUNNE Carpal tunnel decomp bilateral OPEN REPAIR OF ROTATOR CUFF ACUTE 1992 Rotator cuff repair, right STRESS TEST,COMPLETE_*FL Family History FAMILY HISTORY Problem Relation Age of Onset Diabetes Mother Heart Mother Stroke Mother Hypertension Mother other (MVA) Father Hypertension Sister Heart Sister Hypertension Sister Heart Sister Hypertension Brother Heart Brother Hypertension Brother Cancer Brother Oral cancer Cancer Paternal Grandfather skin Breast Cancer Maternal Aunt Asthma No Family History Patient Allergies ALLERGIES Allergen Reactions Lipitor [Atorvastat* Other: See Comments muscle cramps Spironolactone Other: See Comments headache Aceon [Perindopril * Rash, Cough Codeine Intolerance Chest pain Lisinopril Cough dry hacking cough Current Medications Current Outpatient Medications on File Prior to Visit Medication Sig rosuvastatin (CRESTOR) 20 mg tablet Take 1 tablet by mouth daily at bedtime. gabapentin (NEURONTIN) 300 mg capsule Take 1 capsule by mouth daily at bedtime for 90 days. levothyroxine (SYNTHROID) 88 mcg tablet Take one tablet daily Monday-Monday and two tablets on Monday trospium (SANCTURA) 20 mg tablet Take 1 tablet by mouth daily at bedtime. isosorbide mononitrate ER (IMDUR) 30 mg 24 hr tablet Take 1 tablet by mouth once daily. labetalol (TRANDATE) 200 mg tablet Take 1 tablet by mouth two times a day. losartan (COZAAR) 100 mg tablet Take 1 tablet by mouth once daily. blood sugar diagnostic (BLOOD GLUCOSE TEST) test strip Test blood sugar(s) 1 times daily. Dx: Prediabetes Insulin: No Lancets Test blood sugar(s) 1 times daily. Dx: Prediabetes Insulin: No diphenhydrAMINE (BENADRYL) 25 mg tablet Take 25 mg by mouth at bedtime as needed. OTC PRODUCT Take 1 tablet by mouth once daily. Prevagen alendronate (FOSAMAX) 70 mg tablet Take 1 tablet by mouth one time a week. In AM with cup of water on empty stomach. Nothing else by mouth and stay upright for 30 min. amLODIPine (NORVASC) 2.5 mg tablet Take one tablet daily in addition to 5 mg to equal 7.5 mg daily amLODIPine (NORVASC) 5 mg tablet Take 1 tablet by mouth once daily. pantoprazole DR (PROTONIX) 40 mg tablet Take 1 tablet by mouth once daily. potassium chloride ER (KLOR-CON) 20 mEq tablet Take 2 tablets by mouth two times a day. meclizine (ANTIVERT) 25 mg tab Take 1 tablet by mouth three times a day as needed (vertigo). polyethylene glycol 3350 17 gram/dose powder Take 17 g by mouth once daily. Dissolve dose in 4 - 8 ounces of liquid and take as directed. doxylamine succinate (SLEEP AID ORAL) Take by mouth daily at bedtime. calcium carbonate-Vit D3-minerals (CALTRATE) 600 mg calcium- 400 unit tab Take 2 tablets by mouth once daily. ondansetron orally disintegrating (ZOFRAN ODT) 4 mg disintegrating tablet Take 1 tablet by mouth every 6 hours as needed for Nausea/Vomiting. 0.9 % sodium chloride (NACL 0.9%) 0.9% solp Infuse 500 ml IV over [address] Biotin 2,500 mcg cap Take 1 capsule by mouth once daily. aspirin, enteric coated (ASPIRIN, ENTERIC COATED) 81 mg EC tablet Take 81 mg by mouth once daily. No current facility-administered medications on file prior to visit. Social History SOCIAL HISTORY[1] Review of Symptoms REVIEW OF SYSTEMS GENERAL: No weight loss, malaise or fevers RESPIRATORY: Negative for cough, hemoptysis, wheezing, COPD, dyspnea or shortness of breath CARDIOVASCULAR: Negative for chest pain, leg swelling, hypertension, CHF or palpitations GI: No nausea, vomiting, or diarrhea SKIN: Negative for lesions, rash, and itching EXAM: BP 116/66 Pulse 67 Ht 152.4 cm (5') Wt 79 kg (174 lb 3.2 oz) SpO2 96% BMI 34.02 kg/m General Appearance: Well appearing, alert, in no acute distress, well-hydrated, well nourished.. Skin: 0.5 cm flat pink lesion on left forearm with flaking skin. Possible Actinic Keratosis. Lungs: Lungs clear to auscultation. No wheezing, rhonchi, rales.. Heart: RRR without murmur, gallop, or rubs. No ectopy. Abdomen: Normal abdominal exam, Abdomen soft, non-tender. Bowel sounds normal. No masses, organomegaly. Extremities: No deformities, edema, skin discoloration, clubbing or cyanosis. Good capillary refill. . Feet: Shoes and socks removed, No deformities, ulcers, calluses, normal distal pulses, and sensitive to 10 gm monofilament Health Maintenance List Dilated Retinal Exam Never done Depression Screening Never done Anxiety Screening Never done Advance Directive Discussion Never done Medicare Advantage Annual Wellness Visit Never done HbA1C due on 06/24/2025 Diabetic Foot Exam due on 06/26/2025 DTaP,Tdap,Td Vaccine(1 - Tdap) due on 12/27/2025 RSV Vaccine(1 - 1-dose 75+ series) due on 12/27/2025 Shingrix Vaccine(1 of 2) due on 12/27/2025 Influenza Vaccine(1) due on 07/07/2025 Urine Albumin:Creatinine Ratio due on 12/25/2025 LDL Cholesterol due on 12/31/2025 Hemoglobin/Hematocrit due on 01/10/2026 Serum Creatinine due on 03/11/2026 Annual PCP Team Chronic Disease Visit due on 07/04/2026 Bone Density Screening due on 07/22/2026 Hepatitis C Screening Completed Pneumococcal Vaccine: 50+ Completed Mammogram Screening Discontinued Colorectal Cancer Screening Discontinued Data reviewed Latest Ref Rng 12/25/2024 12/31/2024 03/11/2025 Protein, Total 6.3 - 8.0 g/dL 7.4 Albumin 3.9 - 4.9 g/dL 4.4 4.4 Calcium 8.5 - 10.2 mg/dL 9.6 9.5 Bilirubin, Total 0.2 - 1.3 mg/dL 0.5 Alkaline Phosphatase 34 - 123 U/L 93 AST 13 - 35 U/L 18 ALT 7 - 38 U/L 13 Glucose 74 - 99 mg/dL 97 98 BUN 7 - 21 mg/dL 17 12 Creatinine 0.58 - 0.96 mg/dL 1.05 (H) 1.07 (H) Sodium 136 - 144 mmol/L 131 (L) 137 Potassium 3.7 - 5.1 mmol/L 4.3 4.8 Chloride 98 - 107 mmol/L 94 (L) 100 CO2 22 - 30 mmol/L 25 22 Anion Gap 8 - 15 mmol/L 12 15 eGFR >=60 mL/min/1.73m 55 (L) 54 (L) Cholesterol, Total <200 mg/dL 172 Triglyceride <150 mg/dL 114 HDL Cholesterol >39 mg/dL 50 Non HDL Cholesterol <130 mg/dL 122 Fasting Time hrs 12 VLDL Cholesterol <30 mg/dL 23 TC:HDL Ratio <5.10 3.44 LDL Cholesterol, Calculated <100 mg/dL 99 LDL:HDL Ratio <2.54 1.98 Creatinine, Ur Random (UCRR) 20.0 - 300.0 mg/dL 77.0 Albumin, Urine Random mg/L <12.0 Albumin/Creat Ratio <30 mg/g <16 Hemoglobin A1C 4.3 - 5.6 % 6.2 (H) Estimated Average Glucose mg/dL 131 Osmolality, Urine 50 - 1,200 mOsm/kg 286 Osmolality 275 - 300 mOsm/kg 280 Sodium, Urine Random 14 - 216 mmol/L 22 TSH 0.270 - 4.200 mIU/L 1.350 Cortisol 4.8 - 19.5 ug/dL 9.3 PTH, Intact 15 - 65 pg/mL 29 Uric Acid 2.5 - 6.6 mg/dL 3.5 Magnesium 1.7 - 2.3 mg/dL 2.0 Phosphorus 2.7 - 4.8 mg/dL 3.1 Legend: (H) High (L) Low 1. Diabetes mellitus type II (HCC) (E11.9) 2. Hyperlipidemia associated with type 2 diabetes mellitus (HCC) (E11.69) - Diet-controlled; home glucose readings consistently <120 mg/dL. - No new symptoms of hyperglycemia or complications. - Continue current management; no medication changes. - Order A1c to assess 3-month average glucose. - Advised use of unscented lotion on feet to prevent dryness and cracking. - Follow-up in 6 months. 3. Primary hypertension (I10) - Blood pressure well-controlled on current medication regimen. - Continue current antihypertensive therapy as prescribed. 4. Hyperlipidemia, unspecified hyperlipidemia type (E78.5) - Started on Crestor 20 mg daily after last set of labs. - Recheck lipid panel today. - continue with healthy diet and exercise as tolerated. 5. Stage 3a chronic kidney disease (HCC) (N18.31) 6. Hyponatremia (E87.1) - Stable per recent nephrology evaluation; next follow-up in September. - Recent improvement in sodium levels. - Advised to avoid NSAIDs and continue low-sodium diet. - Order labs to monitor kidney function, sodium, and potassium. 7. ASHD (arteriosclerotic heart disease) (I25.10) 8. SVT (supraventricular tachycardia) (HCC) (I47.10) - Stable; last cardiology follow-up without issues. - Continue labetalol as prescribed. - Advised to seek immediate care for new chest pain or palpitations. 9. Actinic keratosis (L57.0) - Lesion on left arm consistent with actinic keratosis. - Advised to discuss with senior developer at next visit. Elisa Starr MD [1] Social History Tobacco Use Smoking status: Former Current packs/day: 0.10 Average packs/day: 0.1 packs/day for 1 year (0.1 ttl pk-yrs) Types: Cigarettes Smokeless tobacco: Never Tobacco comments: Smoked 1 year or less in 1980s. Spouse was smoker in home for 39 years. Father smoked in childhood home. Vaping Use Vaping status: Never Used Substance Use Topics Alcohol use: No Drug use: No documented in this encounter [facility] 06-26-2025 Note HNO ID: [id number] Author: STEFANY AKHTAR MA Service: ? Author Type: Infectious Disease Technician Type: Progress Notes Filed: 06/26/2025 14:06 Note Text: POPULATION HEALTH NAVIGATION OUTREACH Action/FYI spoke to pt to schedule future wellness and follow up- pt was hesitant but we did schedule a follow up, offered diabetic retinal eye exam - she said that she has her own dr that she schedules with- hcc gap closure, dx code and appointment notes added Reason for Outreach Care Gap/HCC or Scheduling Wellness Visits Care Gaps due: Next Year's Annual Wellness Visit Follow-up Appointment Diabetic Eye Exam Patient Contacted: Spoke to patient/parent/or legal guardian Patient identified by name and : Yes Care Gap/HCC/Scheduling Wellness actions taken: Patient scheduled/pended orders: [facility] - 6 month routine follow up/ wellness , hcc gaps, (RESCHEDELED FROM 06/27/25)Hyperlipidemia associated with type 2 diabetes mellitus (HCC) 09/16/2025 in [facility] with ASHJEFFERSON RICET I - 6 month follow up 10/27/2025 in [facility] with [facility] - Dx: Screening mammogram for breast cancer [Z12.31] [facility] CORTEZ LEON - follow up, hcc gap closure, Hyperlipidemia associated with type 2 diabetes mellitus (HCC), hgba1c 11/24/2025 in [facility] with JONNA BENAVIDES - 1 year follow up Updated appointment note HCC related Navigation Signature: Stefany Akhtar MA June 26, 2025 1:56 PM [facility] 06-26-2025 History of Present illness Narrative POPULATION HEALTH NAVIGATION OUTREACH Action/FYI spoke to pt to schedule future wellness and follow up- pt was hesitant but we did schedule a follow up, offered diabetic retinal eye exam - she said that she has her own dr that she schedules with- hcc gap closure, dx code and appointment notes added Reason for Outreach Care Gap/HCC or Scheduling Wellness Visits Care Gaps due: Next Year's Annual Wellness Visit Follow-up Appointment Diabetic Eye Exam Patient Contacted: Spoke to patient/parent/or legal guardian Patient identified by name and : Yes Care Gap/HCC/Scheduling Wellness actions taken: Patient scheduled/pended orders: Follow-up App[facility]ment [facility] ST[facility] - 6 month routine follow up/ wellness , hcc gaps, (RESCHEDELED FROM 06/27/25)Hyperlipidemia associated with type 2 diabetes mellitus (HCC) 09/16/2025 in [facility] with ASHAI, JEAN-PIERRE I - 6 month follow up 10/27/2025 in [facility] with [facility] - Dx: Screening mammogram for breast cancer [Z12.31] 11/18/2025 in [facility] with CORTEZ LEON - follow up, hcc gap closure, Hyperlipidemia associated with type 2 diabetes mellitus (HCC), hgba1c 11/24/2025 in [facility] with JONNA BENAVIDES - 1 year follow up Updated appointment note HCC related Navigation Signature: Stefany Akhtar MA June 26, 2025 1:56 PM documented in this encounter [facility] 06-26-2025 Note Patient Outreach ([facility]) TASHIA FERNANDEZ ([id number]) 1950 F Date Time Provider Department 06/26/25 STEFANY AKHTAR During your visit today, we recorded the following information about you: Stefany Akhtar MA 06/26/2025 2:06 PM Signed POPULATION HEALTH NAVIGATION OUTREACH Action/ spoke to pt to schedule future wellness and follow up- pt was hesitant but we did schedule a follow up, offered diabetic retinal eye exam - she said that she has her own dr that she schedules with- hcc gap closure, dx code and appointment notes added Reason for Outreach Care Gap/HCC or Scheduling Wellness Visits Care Gaps due: Next Year's Annual Wellness Visit Follow-up Appointment Diabetic Eye Exam Patient Contacted: Spoke to patient/parent/or legal guardian Patient identified by name and : Yes Care Gap/HCC/Scheduling Wellness actions taken: Patient scheduled/pended orders: Follow-up Appointment 07/04/2025 in [facility] with ELISA STARR - 6 month routine follow up/ wellness , hcc gaps, (RESCHEDELED FROM 06/27/25)Hyperlipidemia associated with type 2 diabetes mellitus (HCC) 09/16/2025 in [facility] with JEAN-PIERRE VELAZCO I - 6 month follow up 10/27/2025 in [facility] with [facility]MO [facility] - Dx: Screening mammogram for breast cancer [Z12.31] 11/18/2025 in [facility] with CORTEZ LEON - follow up, hcc gap closure, Hyperlipidemia associated with type 2 diabetes mellitus (HCC), hgba1c 11/24/2025 in [facility] with JONNA BENAVIDES - 1 year follow up Updated appointment note HCC related Navigation Signature: Stefany Akhtar MA June 26, 2025 1:56 PM Allergies As of Date: 06/26/2025 Noted Allergy Reaction LIPITOR (ATORVASTATIN CALCIUM) 10/21/2014 14 - Other: See Comments Comments: muscle cramps SPIRONOLACTONE 03/21/2014 14 - Other: See Comments Comments: headache ACEON (PERINDOPRIL ERBUMINE) 11/02/2005 2 - Rash 3 - Cough CODEINE 12/09/2009 5 - Intolerance Comments: Chest pain LISINOPRIL 10/07/2005 3 - Cough Comments: dry hacking cough Date Reviewed: 03/26/2025 Reviewed by: Vangie Gonzalez LPN - Fully Assessed Reason for Visit: Population Health Navigation Outreach [3910] Cmt: yasmine [facility] sprint list Prescriptions as of 06/26/2025 - rosuvastatin (CRESTOR) 20 mg tablet Take 1 tablet by mouth daily at bedtime. - gabapentin (NEURONTIN) 300 mg capsule Take 1 capsule by mouth daily at bedtime for 90 days. - levothyroxine (SYNTHROID) 88 mcg tablet Take one tablet daily Monday-Monday and two tablets on Monday - trospium (SANCTURA) 20 mg tablet Take 1 tablet by mouth daily at bedtime. - isosorbide mononitrate ER (IMDUR) 30 mg 24 hr tablet Take 1 tablet by mouth once daily. - labetalol (TRANDATE) 200 mg tablet Take 1 tablet by mouth two times a day. - losartan (COZAAR) 100 mg tablet Take 1 tablet by mouth once daily. - blood sugar diagnostic (BLOOD GLUCOSE TEST) test strip Test blood sugar(s) 1 times daily. Dx: Prediabetes Insulin: No - Lancets Test blood sugar(s) 1 times daily. Dx: Prediabetes Insulin: No - diphenhydrAMINE (BENADRYL) 25 mg tablet Take 25 mg by mouth at bedtime as needed. - OTC PRODUCT Take 1 tablet by mouth once daily. Prevagen - alendronate (FOSAMAX) 70 mg tablet Take 1 tablet by mouth one time a week. In AM with cup of water on empty stomach. Nothing else by mouth and stay upright for 30 min. - amLODIPine (NORVASC) 2.5 mg tablet Take one tablet daily in addition to 5 mg to equal 7.5 mg daily - amLODIPine (NORVASC) 5 mg tablet Take 1 tablet by mouth once daily. - pantoprazole DR (PROTONIX) 40 mg tablet Take 1 tablet by mouth once daily. - potassium chloride ER (KLOR-CON) 20 mEq tablet Take 2 tablets by mouth two times a day. - meclizine (ANTIVERT) 25 mg tab Take 1 tablet by mouth three times a day as needed (vertigo). - polyethylene glycol 3350 17 gram/dose powder Take 17 g by mouth once daily. Dissolve dose in 4 - 8 ounces of liquid and take as directed. - doxylamine succinate (SLEEP AID ORAL) Take by mouth daily at bedtime. - calcium carbonate-Vit D3-minerals (CALTRATE) 600 mg calcium- 400 unit tab Take 2 tablets by mouth once daily. - ondansetron orally disintegrating (ZOFRAN ODT) 4 mg disintegrating tablet Take 1 tablet by mouth every 6 hours as needed for Nausea/Vomiting. - 0.9 % sodium chloride (NACL 0.9%) 0.9% solp Infuse 500 ml IV over [address] - Biotin 2,500 mcg cap Take 1 capsule by mouth once daily. - aspirin, enteric coated (ASPIRIN, ENTERIC COATED) 81 mg EC tablet Take 81 mg by mouth once daily. Meds Comments as of 01/03/2017: Biotin Problem List As Of Date 06/26/2025 Noted Resolved Primary hypertension [I10] Personal history of colonic polyps [Z86.0100] 06/02/2021 Postablative hypothyroidism [E89.0] 10/10/2005 Osteoporosis [M81.0] 01/16/2007 GASTRI (more content not included)... [facility] 05-21-2025 Telephone encounter Note Prescription Refill Information The patient has been identified by name and date of : Yes Caregiver verified no other encounters exist for this prescription request: Yes Caregiver confirmed with patient/requestor that no other refills are due, in the near future, with this provider at this time: Yes The last office visit in the department: 03/26/25 Does the patient have a future office visit with this provider/department: Yes Requested Prescriptions Pending Prescriptions Disp Refills rosuvastatin (CRESTOR) 20 mg tablet 90 tablet 3 Sig: Take 1 tablet by mouth daily at bedtime. [facility] May 21, 2025 8:38 AM [facility] 05-21-2025 Miscellaneous Notes Prescription Refill Information The patient has been identified by name and date of : Yes Caregiver verified no other encounters exist for this prescription request: Yes Caregiver confirmed with patient/requestor that no other refills are due, in the near future, with this provider at this time: Yes The last office visit in the department: 03/26/25 Does the patient have a future office visit with this provider/department: Yes Requested Prescriptions Pending Prescriptions Disp Refills rosuvastatin (CRESTOR) 20 mg tablet 90 tablet 3 Sig: Take 1 tablet by mouth daily at bedtime. [facility] May 21, 2025 8:38 AM documented in this encounter [facility] 04-30-2025 Telephone encounter Note [facility] website checked and validated. All prescriptions have been APPROPRIATELY filled. No suspicious activity was identified. 04/30/2025 by Elizabeth Og APRN.CNP [facility] 04-30-2025 Miscellaneous Notes PDMP website checked and validated. All prescriptions have been APPROPRIATELY filled. No suspicious activity was identified. 04/30/2025 by Elizabeth Og APRN.CNP Prescription Refill Information The patient has been identified by name and date of : Yes Caregiver verified no other encounters exist for this prescription request: Yes Caregiver confirmed with patient/requestor that no other refills are due, in the near future, with this provider at this time: Yes The last office visit in the department: 03/26/2025 Does the patient have a future office visit with this provider/department: Yes Requested Prescriptions Pending Prescriptions Disp Refills gabapentin (NEURONTIN) 300 mg capsule 90 capsule 0 Sig: Take 1 capsule by mouth daily at bedtime for 90 days. levothyroxine (SYNTHROID) 88 mcg tablet 90 tablet 3 Sig: Take one tablet daily Monday-Monday and two tablets on Monday Thao Espinal April 29, 2025 8:46 AM documented in this encounter [facility] 04-29-2025 Note HNO ID: [id number] Author: SHERI REDDY RN Service: ? Author Type: Registered Nurse Type: Progress Notes Filed: 05/07/2025 14:29 Note Text: CDM Care Path Telephonic Outreach Provider Pablo/CHAD Mare [place] was prescribed for [place] She took it for about for about 6 weeks. She stated that it did not help. She was still getting up at night and then found it very difficult to urinate during the day. She feels so much better off the [place] Please route any further follow up to office staff. Patient identified by Name and Date of . Discussed care with patient. Program Details Chronic Disease Management Status: Enrolled Effective Dates: 03/05/2025 - present Responsible Staff: Sheri Reddy, LOLI Support and Services: Diabetes, Hypertension, Chronic Kidney Disease (CKD) Program Goals Targets Target Due Completed Completed By Outcome Annual Medicare Wellness visit addressed 06/04/2025 04/29/2025 Sheri Reddy RN Complete/Scheduled 07/04/25 Comprehensive CKD education provided 06/04/2025 04/29/2025 Sheri Reddy RN Complete Comprehensive HTN education provided 06/04/2025 04/01/2025 Sheri Reddy RN Complete Patient-stated goal addressed (add comment) 06/04/2025 04/01/2025 Sheri Reddy RN Complete Identify what is going on with my right shoulder and get it repaired. General education provided (managing stress, where to go/how to contact, etc.) 04/04/2025 03/19/2025 Sheri Reddy RN Complete Where to go for care discussed and H@H number provided Annual Nephrology visit addressed 06/04/2025 03/19/2025 Sheri Reddy RN Complete/Scheduled 09/16/25 Biannual PCP visit addressed 06/04/2025 03/19/2025 Sheri Reddy RN Complete/Scheduled 12/31 and 02/28 CKD lab care gaps addressed 06/04/2025 03/19/2025 Sheri Reddy RN Complete/Scheduled Comprehensive Diabetes education provided 06/04/2025 03/19/2025 Sheri Reddy RN Complete Diabetes lab care gaps addressed 06/04/2025 03/19/2025 Sheri Reddy RN Complete/Scheduled HTN lab care gaps addressed 06/04/2025 03/19/2025 Sheri Reddy RN Complete/Scheduled Intake assessments completed: ADLs, Fall Risk, SDOH 04/04/2025 12/03/2024 Sheri Reddy RN Complete Assessments CDM Assessment Medications: Do you have any questions about taking your medications or which medications you should be taking?: No Do you need any medication refills at this time, including any of the medication you might take only when needed?: No Social: It can be normal to feel anxious or down during a time like this. Would you like to talk to a mental health professional about how you have been feeling?: No Symptoms: Are you experiencing any new or worsening symptoms that you need to talk about today?: No ADLs No documentation this encounter Fall Risk No documentation this encounter SDOH No documentation this encounter Interventions The following were addressed during this visit: - Comprehensive CKD education provided - Month 1: Provide CKD Education: CKD Zones - Month 1: Provide CKD Education: About CKD - Month 2: Provide CKD Education: Renal Diet Basics - Month 2: Provide CKD Education: Controlling Potassium - Annual Medicare Wellness visit addressed - Schedule Annual Wellness Visit Sheri Reddy RN April 29, 2025 11:19 AM [facility] 04-29-2025 History of Present illness Narrative Images from the original note were not included. [facility] Care Path Telephonic Outreach Provider Pablo/CHAD Mare [place] was prescribed for [place] She took it for about for about 6 weeks. She stated that it did not help. She was still getting up at night and then found it very difficult to urinate during the day. She feels so much better off the [place] Please route any further follow up to office staff. Patient identified by Name and Date of . Discussed care with patient. Program Details Chronic Disease Management Status: Enrolled Effective Dates: 03/05/2025 - present Responsible Staff: Sheri Reddy RN Support and Services: Diabetes, Hypertension, Chronic Kidney Disease (CKD) Program Goals Targets Target Due Completed Completed By Outcome Annual Medicare Wellness visit addressed 06/04/2025 04/29/2025 Sheri Reddy RN Complete/Scheduled 07/04/25 Comprehensive CKD education provided 06/04/2025 04/29/2025 Sheri Reddy RN Complete Comprehensive HTN education provided 06/04/2025 04/01/2025 Sheri Reddy RN Complete Patient-stated goal addressed (add comment) 06/04/2025 04/01/2025 Sheri Reddy RN Complete Identify what is going on with my right shoulder and get it repaired. General education provided (managing stress, where to go/how to contact, etc.) 04/04/2025 03/19/2025 Sheri Reddy RN Complete Where to go for care discussed and H@H number provided Annual Nephrology visit addressed 06/04/2025 03/19/2025 Sheri Reddy RN Complete/Scheduled 09/16/25 Biannual PCP visit addressed 06/04/2025 03/19/2025 Sheri Reddy RN Complete/Scheduled 12/31 and 02/28 CKD lab care gaps addressed 06/04/2025 03/19/2025 Sheri Reddy RN Complete/Scheduled Comprehensive Diabetes education provided 06/04/2025 03/19/2025 Sheri Reddy RN Complete Diabetes lab care gaps addressed 06/04/2025 03/19/2025 Sheri Reddy RN Complete/Scheduled HTN lab care gaps addressed 06/04/2025 03/19/2025 Sheri Reddy RN Complete/Scheduled Intake assessments completed: ADLs, Fall Risk, SDOH 04/04/2025 12/03/2024 Sheri Reddy RN Complete Assessments CDM Assessment Medications: Do you have any questions about taking your medications or which medications you should be taking?: No Do you need any medication refills at this time, including any of the medication you might take only when needed?: No Social: It can be normal to feel anxious or down during a time like this. Would you like to talk to a mental health professional about how you have been feeling?: No Symptoms: Are you experiencing any new or worsening symptoms that you need to talk about today?: No ADLs No documentation this encounter Fall Risk No documentation this encounter SDOH No documentation this encounter Interventions The following were addressed during this visit: - Comprehensive CKD education provided - Month 1: Provide CKD Education: CKD Zones - Month 1: Provide CKD Education: About CKD - Month 2: Provide CKD Education: Renal Diet Basics - Month 2: Provide CKD Education: Controlling Potassium - Annual Medicare Wellness visit addressed - Schedule Annual Wellness Visit Sheri Reddy RN April 29, 2025 11:19 AM documented in this encounter [facility] 04-29-2025 Telephone encounter Note Prescription Refill Information The patient has been identified by name and date of : Yes Caregiver verified no other encounters exist for this prescription request: Yes Caregiver confirmed with patient/requestor that no other refills are due, in the near future, with this provider at this time: Yes The last office visit in the department: 03/26/2025 Does the patient have a future office visit with this provider/department: Yes Requested Prescriptions Pending Prescriptions Disp Refills gabapentin (NEURONTIN) 300 mg capsule 90 capsule 0 Sig: Take 1 capsule by mouth daily at bedtime for 90 days. levothyroxine (SYNTHROID) 88 mcg tablet 90 tablet 3 Sig: Take one tablet daily Monday-Monday and two tablets on Monday Thao Espinal April 29, 2025 8:46 AM [facility] 04-29-2025 Note Patient Outreach ([facility] TASHIA FERNANDEZ ([id number]) 1950 F Date Time Provider Department 04/29/25 SHERI REDDY AMBG During your visit today, we recorded the following information about you: Sheri Reddy RN 05/07/2025 2:29 PM Signed CDM Care Path Telephonic Outreach Provider Pablo/CHAD Garvey [place] was prescribed for [place] She took it for about for about 6 weeks. She stated that it did not help. She was still getting up at night and then found it very difficult to urinate during the day. She feels so much better off the [place] Please route any further follow up to office staff. Patient identified by Name and Date of . Discussed care with patient. Program Details Chronic Disease Management Status: Enrolled Effective Dates: 03/05/2025 - present Responsible Staff: Sheri Reddy RN Support and Services: Diabetes, Hypertension, Chronic Kidney Disease (CKD) Program Goals Targets Target Due Completed Completed By Outcome Annual Medicare Wellness visit addressed 06/04/2025 04/29/2025 Sheri Reddy RN Complete/Scheduled 07/04/25 Comprehensive CKD education provided 06/04/2025 04/29/2025 Sheri Reddy RN Complete Comprehensive HTN education provided 06/04/2025 04/01/2025 Sheri Reddy RN Complete Patient-stated goal addressed (add comment) 06/04/2025 04/01/2025 Sheri Reddy RN Complete Identify what is going on with my right shoulder and get it repaired. General education provided (managing stress, where to go/how to contact, etc.) 04/04/2025 03/19/2025 Sheri Reddy RN Complete Where to go for care discussed and H@H number provided Annual Nephrology visit addressed 06/04/2025 03/19/2025 Sheri Reddy RN Complete/Scheduled 09/16/25 Biannual PCP visit addressed 06/04/2025 03/19/2025 Sheri Reddy RN Complete/Scheduled 12/31 and 02/28 CKD lab care gaps addressed 06/04/2025 03/19/2025 Sheri Reddy RN Complete/Scheduled Comprehensive Diabetes education provided 06/04/2025 03/19/2025 Sheri eRddy RN Complete Diabetes lab care gaps addressed 06/04/2025 03/19/2025 Sheri Reddy RN Complete/Scheduled HTN lab care gaps addressed 06/04/2025 03/19/2025 Sheri Reddy RN Complete/Scheduled Intake assessments completed: ADLs, Fall Risk, SDOH 04/04/2025 12/03/2024 Sheri Reddy RN Complete Assessments CDM Assessment Medications: Do you have any questions about taking your medications or which medications you should be taking?: No Do you need any medication refills at this time, including any of the medication you might take only when needed?: No Social: It can be normal to feel anxious or down during a time like this. Would you like to talk to a mental health professional about how you have been feeling?: No Symptoms: Are you experiencing any new or worsening symptoms that you need to talk about today?: No ADLs No documentation this encounter Fall Risk No documentation this encounter SDOH No documentation this encounter Interventions The following were addressed during this visit: - Comprehensive CKD education provided - Month 1: Provide CKD Education: CKD Zones - Month 1: Provide CKD Education: About CKD - Month 2: Provide CKD Education: Renal Diet Basics - Month 2: Provide CKD Education: Controlling Potassium - Annual Medicare Wellness visit addressed - Schedule Annual Wellness Visit Sheri Reddy RN April 29, 2025 11:19 AM Allergies As of Date: 04/29/2025 Noted Allergy Reaction LIPITOR (ATORVASTATIN CALCIUM) 10/21/2014 14 - Other: See Comments Comments: muscle cramps SPIRONOLACTONE 03/21/2014 14 - Other: See Comments Comments: headache ACEON (PERINDOPRIL ERBUMINE) 11/02/2005 2 - Rash 3 - Cough CODEINE 12/09/2009 5 - Intolerance Comments: Chest pain LISINOPRIL 10/07/2005 3 - Cough Comments: dry hacking cough Date Reviewed: 03/26/2025 Reviewed by: Vangie Gonzalez LPN - Fully Assessed Prescriptions as of 05/07/2025 - gabapentin (NEURONTIN) 300 mg capsule Take 1 capsule by mouth daily at bedtime for 90 days. - levothyroxine (SYNTHROID) 88 mcg tablet Take one tablet daily Monday-Monday and two tablets on Monday - trospium (SANCTURA) 20 mg tablet Take 1 tablet by mouth daily at bedtime. - isosorbide mononitrate ER (IMDUR) 30 mg 24 hr tablet Take 1 tablet by mouth once daily. - labetalol (TRANDATE) 200 mg tablet Take 1 tablet by mouth two times a day. - losartan (COZAAR) 100 mg tablet Take 1 tablet by mouth once daily. - blood sugar diagnostic (BLOOD GLUCOSE TEST) test strip Test blood sugar(s) 1 times daily. Dx: Prediabetes Insulin: No - Lancets Test blood sugar(s) 1 times daily. Dx: Prediabetes Insulin: No - rosuvastatin (CRESTOR) 20 mg tablet Take 1 tablet by mouth daily at bedtime. - diphenhydrAMINE (BENADRYL) 25 mg tablet Take 25 mg by mouth at bedtime as needed. - OTC PROD (more content not included)... [facility] 04-03-2025 Note HNO ID: [id number] Author: ?, ?, ? Service: ? Author Type: ? Type: Progress Notes Filed: 04/03/2025 12:03 Note Text: POPULATION HEALTH NAVIGATION OUTREACH Action/FYI Patient outreach for HCC gaps; AWV. Spoke with patient and was able to flip appointment to wellness. Patient was worried about copay's and increasing appointments Reason for Outreach Care Gap/HCC or Scheduling Wellness Visits Care Gaps due: Medicare Annual Wellness Visit Patient Contacted: Spoke to patient/parent/or legal guardian Patient identified by name and : Yes Care Gap/HCC/Scheduling Wellness actions taken: Patient scheduled/pended orders: Medicare Annual Wellness Visit 06/27/2025 in [facility] with ELISA STARR - 6 month routine follow up/ wellness , hcc gaps 09/16/2025 in [facility] with JEAN-PIERRE VELAZCO I - 6 month follow up 10/27/2025 in [facility] with [facility] - Dx: Screening mammogram for breast cancer [Z12.31] 11/24/2025 in [facility] with JONNA BENAVIDES - 1 year follow up Navigation Signature: Cyndi Jones April 03, 2025 11:37 AM [facility] 04-03-2025 History of Present illness Narrative POPULATION HEALTH NAVIGATION OUTREACH Action/FYI Patient outreach for HCC gaps; AWV. Spoke with patient and was able to flip appointment to wellness. Patient was worried about copay's and increasing appointments Reason for Outreach Care Gap/HCC or Scheduling Wellness Visits Care Gaps due: Medicare Annual Wellness Visit Patient Contacted: Spoke to patient/parent/or legal guardian Patient identified by name and : Yes Care Gap/HCC/Scheduling Wellness actions taken: Patient scheduled/pended orders: Medicare Annual Wellness Visit 06/27/2025 in [facility] with ELISA STARR - 6 month routine follow up/ wellness , hcc gaps 09/16/2025 in [facility] with JEAN-PIERRE VELAZCO I - 6 month follow up 10/27/2025 in [facility] with [facility]CREEN [facility]MO [facility] - Dx: Screening mammogram for breast cancer [Z12.31] 11/24/2025 in [facility] with JONNA BENAVIDES - 1 year follow up Navigation Signature: Cyndi Jones April 03, 2025 11:37 AM documented in this encounter [facility] 04-03-2025 Note Patient Outreach ([facility]) TASHIA FERNANDEZ ([id number]) 1950 F Date Time Provider Department 04/03/25 ELISA STARR During your visit today, we recorded the following information about you: Demetrilisachema KarenJosieCyndi 04/03/2025 12:03 PM Signed POPULATION HEALTH NAVIGATION OUTREACH Action/FYI Patient outreach for HCC gaps; AWV. Spoke with patient and was able to flip appointment to wellness. Patient was worried about copay's and increasing appointments Reason for Outreach Care Gap/HCC or Scheduling Wellness Visits Care Gaps due: Medicare Annual Wellness Visit Patient Contacted: Spoke to patient/parent/or legal guardian Patient identified by name and : Yes Care Gap/HCC/Scheduling Wellness actions taken: Patient scheduled/pended orders: Medicare Annual Wellness Visit 06/27/2025 in [facility] with ELISA STARR - 6 month routine follow up/ wellness , hcc gaps 09/16/2025 in [facility] with JEAN-PIERRE VELAZCO I - 6 month follow up 10/27/2025 in [facility] with [facility]CREEN MAMMO [facility] - Dx: Screening mammogram for breast cancer [Z12.31] 11/24/2025 in [facility] with JONNA BENAVIDES - 1 year follow up Navigation Signature: Cyndi Liyah Jones April 03, 2025 11:37 AM Allergies As of Date: 04/03/2025 Noted Allergy Reaction LIPITOR (ATORVASTATIN CALCIUM) 10/21/2014 14 - Other: See Comments Comments: muscle cramps SPIRONOLACTONE 03/21/2014 14 - Other: See Comments Comments: headache ACEON (PERINDOPRIL ERBUMINE) 11/02/2005 2 - Rash 3 - Cough CODEINE 12/09/2009 5 - Intolerance Comments: Chest pain LISINOPRIL 10/07/2005 3 - Cough Comments: dry hacking cough Date Reviewed: 03/26/2025 Reviewed by: Vangie Gonzalez LPN - Fully Assessed Reason for Visit: Population Health Navigation Outreach [3910] Cmt[facility] [employer] [facility] Prescriptions as of 04/03/2025 - trospium (SANCTURA) 20 mg tablet Take 1 tablet by mouth daily at bedtime. - isosorbide mononitrate ER (IMDUR) 30 mg 24 hr tablet Take 1 tablet by mouth once daily. - labetalol (TRANDATE) 200 mg tablet Take 1 tablet by mouth two times a day. - losartan (COZAAR) 100 mg tablet Take 1 tablet by mouth once daily. - gabapentin (NEURONTIN) 300 mg capsule Take 1 capsule by mouth daily at bedtime for 90 days. - blood sugar diagnostic (BLOOD GLUCOSE TEST) test strip Test blood sugar(s) 1 times daily. Dx: Prediabetes Insulin: No - Lancets Test blood sugar(s) 1 times daily. Dx: Prediabetes Insulin: No - rosuvastatin (CRESTOR) 20 mg tablet Take 1 tablet by mouth daily at bedtime. - diphenhydrAMINE (BENADRYL) 25 mg tablet Take 25 mg by mouth at bedtime as needed. - OTC PRODUCT Take 1 tablet by mouth once daily. Prevagen - alendronate (FOSAMAX) 70 mg tablet Take 1 tablet by mouth one time a week. In AM with cup of water on empty stomach. Nothing else by mouth and stay upright for 30 min. - levothyroxine (SYNTHROID) 88 mcg tablet Take one tablet daily Monday-Monday and two tablets on Monday - amLODIPine (NORVASC) 2.5 mg tablet Take one tablet daily in addition to 5 mg to equal 7.5 mg daily - amLODIPine (NORVASC) 5 mg tablet Take 1 tablet by mouth once daily. - pantoprazole DR (PROTONIX) 40 mg tablet Take 1 tablet by mouth once daily. - potassium chloride ER (KLOR-CON) 20 mEq tablet Take 2 tablets by mouth two times a day. - meclizine (ANTIVERT) 25 mg tab Take 1 tablet by mouth three times a day as needed (vertigo). - polyethylene glycol 3350 17 gram/dose powder Take 17 g by mouth once daily. Dissolve dose in 4 - 8 ounces of liquid and take as directed. - doxylamine succinate (SLEEP AID ORAL) Take by mouth daily at bedtime. - calcium carbonate-Vit D3-minerals (CALTRATE) 600 mg calcium- 400 unit tab Take 2 tablets by mouth once daily. - ondansetron orally disintegrating (ZOFRAN ODT) 4 mg disintegrating tablet Take 1 tablet by mouth every 6 hours as needed for Nausea/Vomiting. - 0.9 % sodium chloride (NACL 0.9%) 0.9% solp Infuse 500 ml IV over [address] - Biotin 2,500 mcg cap Take 1 capsule by mouth once daily. - aspirin, enteric coated (ASPIRIN, ENTERIC COATED) 81 mg EC tablet Take 81 mg by mouth once daily. 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 [facility] 04-01-2025 Note HNO ID: [id number] Author: SHERI REDDY RN Service: ? Author Type: Registered Nurse Type: Progress Notes Filed: 04/01/2025 16:21 Note Text: [facility] Care Path Telephonic Outreach Provider Action/FYI Patient identified by Name and Date of . Discussed care with patient. Program Details Chronic Disease Management Status: Enrolled Effective Dates: 03/05/2025 - present Responsible Staff: Sheri Reddy, LOLI Support and Services: Diabetes, Hypertension, Chronic Kidney Disease (CKD) Program Goals Targets Target Due Completed Completed By Outcome Annual Medicare Wellness visit addressed 06/04/2025 -- -- -- Comprehensive CKD education provided 06/04/2025 -- -- -- Comprehensive HTN education provided 06/04/2025 04/01/2025 Sheri Reddy RN Complete Patient-stated goal addressed (add comment) 06/04/2025 04/01/2025 Sheri Reddy RN Complete Identify what is going on with my right shoulder and get it repaired. General education provided (managing stress, where to go/how to contact, etc.) 04/04/2025 03/19/2025 Sheri Reddy RN Complete Where to go for care discussed and H@H number provided Annual Nephrology visit addressed 06/04/2025 03/19/2025 Sheri Reddy RN Complete/Scheduled 09/16/25 Biannual PCP visit addressed 06/04/2025 03/19/2025 Sheri Reddy RN Complete/Scheduled 12/31 and 02/28 CKD lab care gaps addressed 06/04/2025 03/19/2025 Sheri Reddy RN Complete/Scheduled Comprehensive Diabetes education provided 06/04/2025 03/19/2025 Sheri Reddy RN Complete Diabetes lab care gaps addressed 06/04/2025 03/19/2025 Sheri Reddy RN Complete/Scheduled HTN lab care gaps addressed 06/04/2025 03/19/2025 Sheri Reddy RN Complete/Scheduled Intake assessments completed: ADLs, Fall Risk, SDOH 04/04/2025 12/03/2024 Sheri Reddy RN Complete Assessments CDM Assessment Medications: Do you have any questions about taking your medications or which medications you should be taking?: No Do you need any medication refills at this time, including any of the medication you might take only when needed?: No Social: It can be normal to feel anxious or down during a time like this. Would you like to talk to a mental health professional about how you have been feeling?: No Symptoms: Are you experiencing any new or worsening symptoms that you need to talk about today?: No ADLs No documentation this encounter Fall Risk No documentation this encounter SDOH No documentation this encounter Interventions The following were addressed during this visit: - Comprehensive HTN education provided - Month 1: Review Individual Blood Pressure Target (If established by provider) - Month 1: Provide HTN Education: What is High Blood Pressure - Month 1: Provide HTN Education: When to call your Doctor, When to seek Emergency Care - Month 2: Provide HTN Education: Sodium Controlled Diets - Month 2: Provide HTN Education: High Blood Pressure AND Nutrition - Month 3: Provide HTN Education: Understanding Medications - Month 3: Provide HTN Education: Medication Compliance - Patient-stated goal addressed (add comment) - Month 1: Provide General Education: Managing Stress AND Anxiety - Develop a Patient-Stated Goal (add to Target comments) Disposition Based on assessment rn, the following disposition is advised: No action needed Sheri Reddy RN April 01, 2025 4:15 PM [facility] 04-01-2025 History of Present illness Narrative Images from the original note were not included. [facility] Care Path Telephonic Outreach Provider Action/FYI Patient identified by Name and Date of . Discussed care with patient. Program Details Chronic Disease Management Status: Enrolled Effective Dates: 03/05/2025 - present Responsible Staff: Sheri Reddy RN Support and Services: Diabetes, Hypertension, Chronic Kidney Disease (CKD) Program Goals Targets Target Due Completed Completed By Outcome Annual Medicare Wellness visit addressed 06/04/2025 -- -- -- Comprehensive CKD education provided 06/04/2025 -- -- -- Comprehensive HTN education provided 06/04/2025 04/01/2025 Sheri Reddy RN Complete Patient-stated goal addressed (add comment) 06/04/2025 04/01/2025 Sheri Reddy RN Complete Identify what is going on with my right shoulder and get it repaired. General education provided (managing stress, where to go/how to contact, etc.) 04/04/2025 03/19/2025 Sheri Reddy RN Complete Where to go for care discussed and H@H number provided Annual Nephrology visit addressed 06/04/2025 03/19/2025 Sheri Reddy RN Complete/Scheduled 09/16/25 Biannual PCP visit addressed 06/04/2025 03/19/2025 Sheri Reddy RN Complete/Scheduled 12/31 and 02/28 CKD lab care gaps addressed 06/04/2025 03/19/2025 Sheri Reddy RN Complete/Scheduled Comprehensive Diabetes education provided 06/04/2025 03/19/2025 Sheri Reddy RN Complete Diabetes lab care gaps addressed 06/04/2025 03/19/2025 Sheri Reddy RN Complete/Scheduled HTN lab care gaps addressed 06/04/2025 03/19/2025 Sheri Reddy RN Complete/Scheduled Intake assessments completed: ADLs, Fall Risk, SDOH 04/04/2025 12/03/2024 Sheri Reddy RN Complete Assessments CDM Assessment Medications: Do you have any questions about taking your medications or which medications you should be taking?: No Do you need any medication refills at this time, including any of the medication you might take only when needed?: No Social: It can be normal to feel anxious or down during a time like this. Would you like to talk to a mental health professional about how you have been feeling?: No Symptoms: Are you experiencing any new or worsening symptoms that you need to talk about today?: No ADLs No documentation this encounter Fall Risk No documentation this encounter SDOH No documentation this encounter Interventions The following were addressed during this visit: - Comprehensive HTN education provided - Month 1: Review Individual Blood Pressure Target (If established by provider) - Month 1: Provide HTN Education: What is High Blood Pressure - Month 1: Provide HTN Education: When to call your Doctor, When to seek Emergency Care - Month 2: Provide HTN Education: Sodium Controlled Diets - Month 2: Provide HTN Education: High Blood Pressure & Nutrition - Month 3: Provide HTN Education: Understanding Medications - Month 3: Provide HTN Education: Medication Compliance - Patient-stated goal addressed (add comment) - Month 1: Provide General Education: Managing Stress & Anxiety - Develop a Patient-Stated Goal (add to Target comments) Disposition Based on assessment rn, the following disposition is advised: No action needed Sheri Reddy RN April 01, 2025 4:15 PM documented in this encounter [facility] 04-01-2025 Note Patient Outreach ([facility]) TASHIA FERNANDEZ ([id number]) 1950 F Date Time Provider Department 04/01/25 SHERI REDDY AMBG During your visit today, we recorded the following information about you: Sheri Reddy RN 04/01/2025 4:21 PM Signed CDM Care Path Telephonic Outreach Provider Action/FYI Patient identified by Name and Date of . Discussed care with patient. Program Details Chronic Disease Management Status: Enrolled Effective Dates: 03/05/2025 - present Responsible Staff: Sheri Reddy RN Support and Services: Diabetes, Hypertension, Chronic Kidney Disease (CKD) Program Goals Targets Target Due Completed Completed By Outcome Annual Medicare Wellness visit addressed 06/04/2025 -- -- -- Comprehensive CKD education provided 06/04/2025 -- -- -- Comprehensive HTN education provided 06/04/2025 04/01/2025 Sheri Reddy RN Complete Patient-stated goal addressed (add comment) 06/04/2025 04/01/2025 Sheri Reddy RN Complete Identify what is going on with my right shoulder and get it repaired. General education provided (managing stress, where to go/how to contact, etc.) 04/04/2025 03/19/2025 Sheri Reddy RN Complete Where to go for care discussed and H@H number provided Annual Nephrology visit addressed 06/04/2025 03/19/2025 Sheri Reddy RN Complete/Scheduled 09/16/25 Biannual PCP visit addressed 06/04/2025 03/19/2025 Sheri Reddy RN Complete/Scheduled 12/31 and 02/28 CKD lab care gaps addressed 06/04/2025 03/19/2025 Sheri Reddy RN Complete/Scheduled Comprehensive Diabetes education provided 06/04/2025 03/19/2025 Sheri Reddy RN Complete Diabetes lab care gaps addressed 06/04/2025 03/19/2025 Sheri Reddy RN Complete/Scheduled HTN lab care gaps addressed 06/04/2025 03/19/2025 Sheri Reddy RN Complete/Scheduled Intake assessments completed: ADLs, Fall Risk, SDOH 04/04/2025 12/03/2024 Sheri Reddy RN Complete Assessments CDM Assessment Medications: Do you have any questions about taking your medications or which medications you should be taking?: No Do you need any medication refills at this time, including any of the medication you might take only when needed?: No Social: It can be normal to feel anxious or down during a time like this. Would you like to talk to a mental health professional about how you have been feeling?: No Symptoms: Are you experiencing any new or worsening symptoms that you need to talk about today?: No ADLs No documentation this encounter Fall Risk No documentation this encounter SDOH No documentation this encounter Interventions The following were addressed during this visit: - Comprehensive HTN education provided - Month 1: Review Individual Blood Pressure Target (If established by provider) - Month 1: Provide HTN Education: What is High Blood Pressure - Month 1: Provide HTN Education: When to call your Doctor, When to seek Emergency Care - Month 2: Provide HTN Education: Sodium Controlled Diets - Month 2: Provide HTN Education: High Blood Pressure AND Nutrition - Month 3: Provide HTN Education: Understanding Medications - Month 3: Provide HTN Education: Medication Compliance - Patient-stated goal addressed (add comment) - Month 1: Provide General Education: Managing Stress AND Anxiety - Develop a Patient-Stated Goal (add to Target comments) Disposition Based on assessment rn, the following disposition is advised: No action needed Sheri Reddy RN April 01, 2025 4:15 PM Allergies As of Date: 04/01/2025 Noted Allergy Reaction LIPITOR (ATORVASTATIN CALCIUM) 10/21/2014 14 - Other: See Comments Comments: muscle cramps SPIRONOLACTONE 03/21/2014 14 - Other: See Comments Comments: headache ACEON (PERINDOPRIL ERBUMINE) 11/02/2005 2 - Rash 3 - Cough CODEINE 12/09/2009 5 - Intolerance Comments: Chest pain LISINOPRIL 10/07/2005 3 - Cough Comments: dry hacking cough Date Reviewed: 03/26/2025 Reviewed by: Vangie Gonzalez LPN - Fully Assessed Prescriptions as of 04/01/2025 - trospium (SANCTURA) 20 mg tablet Take 1 tablet by mouth daily at bedtime. - isosorbide mononitrate ER (IMDUR) 30 mg 24 hr tablet Take 1 tablet by mouth once daily. - labetalol (TRANDATE) 200 mg tablet Take 1 tablet by mouth two times a day. - losartan (COZAAR) 100 mg tablet Take 1 tablet by mouth once daily. - gabapentin (NEURONTIN) 300 mg capsule Take 1 capsule by mouth daily at bedtime for 90 days. - blood sugar diagnostic (BLOOD GLUCOSE TEST) test strip Test blood sugar(s) 1 times daily. Dx: Prediabetes Insulin: No - Lancets Test blood sugar(s) 1 times daily. Dx: Prediabetes Insulin: No - rosuvastatin (CRESTOR) 20 mg tablet Take 1 tablet by mouth daily at bedtime. - diphenhydrAMINE (BENADRYL) 25 mg tablet Take 25 mg by mouth at bedtime as needed. - OTC PRODUCT Take 1 tablet by mouth once (more content not included)... [facility] 03-26-2025 Note HNO ID: [id number] Author: ELIZABETH OG APRN.CASH ACCOUNTING CLERK Service: ? Author Type: Nurse Practitioner Type: Progress Notes Filed: 03/26/2025 09:37 Note Text: 03/26/2025 Patient presents with: Blood Pressure Check Recording using [employer] software for draft documentation of the visit was discussed with the patient/authorized pharmaceutical specialty representative; all questions welcomed and answered. Patient/authorized pharmaceutical specialty representative agreed to proceed SUBJECTIVE: This is a 74 year old that is here today for Above Complaints.. Hypertension: - Electronic Wirer requested BP monitoring for 2 weeks. - BP readings: systolic 107-148 mmHg, diastolic 60-80 mmHg. Majority 130's/80's - Higher readings noted in the evening, associated with pain. - Denies headaches, dizziness, or lightheadedness. - Follow-up with spring machine operator scheduled for September. PAST MEDICAL HISTORY Diagnosis Date Contact dermatitis and other eczema Degenerative arthritis of knee 05/24/2011 Delayed gastric emptying 07/24/2012 Diabetes mellitus type II (HCC) 05/31/2024 Diarrhea Diverticulitis Diverticulosis of colon (without mention of hemorrhage) Diverticulosis Dysphagia, unspecified 08/29/2017 Elevated alkaline phosphatase level 07/12/2018 Essential hypertension, benign GERD (gastroesophageal reflux disease) Hyperlipidemia Hypokalemia 09/25/2012 Hyponatremia Hypothyroidism Impaired fasting glucose 11/19/2015 Inadequate pelvic muscles 01/17/2012 Lumbar disc disease with radiculopathy 09/01/2016 Lung nodule < 6cm on CT 10/15/2018 10/07/18: incidental 4.5 mm nodule RML thyrotoxicosis Nonrheumatic mitral (valve) insufficiency Obesity Other osteoporosis 12/21/2006 Pancreatitis (HCC) Paroxysmal SVT (supraventricular tachycardia) (HCC) Personal history of colonic polyps Colon polyps POLYP STOMACH 07/13/2007 Stage 3a chronic kidney disease (HCC) Statin intolerance 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--surgery not needed (2016) Trigeminal neuralgia 10/11/2011 Trochanteric bursitis of left hip 07/24/2012 Unspecified hemorrhoids without mention of complication Hemorrhoids ALLERGIES Lipitor [Atorvastatin Calcium], Spironolactone, Aceon [Perindopril Erbumine], Codeine, and Lisinopril MEDICATIONS Current Outpatient Medications Medication Sig trospium (SANCTURA) 20 mg tablet Take 1 tablet by mouth daily at bedtime. isosorbide mononitrate ER (IMDUR) 30 mg 24 hr tablet Take 1 tablet by mouth once daily. labetalol (TRANDATE) 200 mg tablet Take 1 tablet by mouth two times a day. losartan (COZAAR) 100 mg tablet Take 1 tablet by mouth once daily. gabapentin (NEURONTIN) 300 mg capsule Take 1 capsule by mouth daily at bedtime for 90 days. blood sugar diagnostic (BLOOD GLUCOSE TEST) test strip Test blood sugar(s) 1 times daily. Dx: Prediabetes Insulin: No Lancets Test blood sugar(s) 1 times daily. Dx: Prediabetes Insulin: No rosuvastatin (CRESTOR) 20 mg tablet Take 1 tablet by mouth daily at bedtime. diphenhydrAMINE (BENADRYL) 25 mg tablet Take 25 mg by mouth at bedtime as needed. OTC PRODUCT Take 1 tablet by mouth once daily. Prevagen alendronate (FOSAMAX) 70 mg tablet Take 1 tablet by mouth one time a week. In AM with cup of water on empty stomach. Nothing else by mouth and stay upright for 30 min. levothyroxine (SYNTHROID) 88 mcg tablet Take one tablet daily Monday-Monday and two tablets on Monday amLODIPine (NORVASC) 2.5 mg tablet Take one tablet daily in addition to 5 mg to equal 7.5 mg daily amLODIPine (NORVASC) 5 mg tablet Take 1 tablet by mouth once daily. pantoprazole DR (PROTONIX) 40 mg tablet Take 1 tablet by mouth once daily. potassium chloride ER (KLOR-CON) 20 mEq tablet Take 2 tablets by mouth two times a day. meclizine (ANTIVERT) 25 mg tab Take 1 tablet by mouth three times a day as needed (vertigo). polyethylene glycol 3350 17 gram/dose powder Take 17 g by mouth once daily. Dissolve dose in 4 - 8 ounces of liquid and take as directed. doxylamine succinate (SLEEP AID ORAL) Take by mouth daily at bedtime. calcium carbonate-Vit D3-minerals (CALTRATE) 600 mg calcium- 400 unit tab Take 2 tablets by mouth once daily. ondansetron orally disintegrating (ZOFRAN ODT) 4 mg disintegrating tablet Take 1 tablet by mouth every 6 hours as needed for Nausea/Vomiting. 0.9 % sodium chloride (NACL 0.9%) 0.9% solp Infuse 500 ml IV over [address] Biotin 2,500 mcg cap Take 1 capsule by mouth once daily. aspirin, enteric coated (ASPIRIN, ENTERIC COATED) 81 mg EC tablet Take 81 mg by mouth once daily. No current facility-administered medications for this visit. Medications and allergies reviewed by this provider. SOCIAL HISTORY Social History Tobacco Use Smoking status: Former Current packs/day: 0.10 Average packs/day: 0.1 packs/day for 1 year (0.1 ttl pk-yrs) Types: Cigarettes Smokeless tobacco: Never Tobacco comments: Smoked 1 year or less in 198 (more content not included)... [facility] 03-25-2025 Note HNO ID: [id number] Author: ALVIN HUGO CT Service: Radiology Author Type: Technologist Type: Progress Notes Filed: 03/25/2025 08:48 Note Text: Radiology Service Progress Note PATIENT NAME: Tashia Fernandez DATE OF SERVICE: March 25, 2025 TIME: 8:48 AM PATIENT IDENTITY VERIFICATION COMPLETED USING TWO (2) IDENTIFIERS: Name and Date of confirmed by patient verbally. FALL SCREENING: Has the patient had 2 falls in the last year or 1 fall with injury or currently using an Ambulatory Assistive Device (Walker, Cane, Wheelchair, Crutches, etc.)? No PATIENT GENDER DATA: Assigned female at . status: : No status: NO. PATIENT RELEVANT IMPLANT DATA REVIEWED: Not Applicable PATIENT PRESENTS WITH AN IMPLANTABLE OR ATTACHED RAIL TRACK MAINTAINER: No RADIOLOGY DEPARTMENT: General X-ray: Exam(s) Completed: Spine X-Ray(s): Cervical AP / LAT / OBL PERIPHERAL IV DATA: Not applicable SIGNED BY: MARLI Tyler March 25, 2025 8:48 AM [facility] 03-25-2025 Note HNO ID: [id number] Author: JERRI PALAFOX APRN.CASH ACCOUNTING CLERK Service: ? Author Type: Nurse Practitioner Type: Progress Notes Filed: 03/25/2025 08:36 Note Text: [facility] Date: March 25, 2025 - 7:53 AM Tashia Fernandez is seen in consultation requested by Dr. Elizabeth Og for an opinion regarding chronic neck pain. My final recommendations will be communicated back to the requesting physician by way of shared medical record or via US mail. Chief Complaint: neck Subjective Tashia Fernandez, is a 74 year old female who presents with neck pain that radiates down the right UE to the elbow The pain started The pain onset was gradual. The patient states that the current pain is persistent. Her pain is located in the right neck and radiates to right upper extremity along to the level of the elbow ////// The pain is described as aching, sharp, and stabbing. The pain intensity is currently rated 10 on a scale of 10. The pain is exacerbated by activity, twisting, flexion, and extension. The pain is relieved by application of heat. Symptoms interfere with physical activity, work, walking, cooking, and social activities. PAIN EVALUATION No data found in the last 1 encounters. Prior pain treatment has included: Medication(s): She has tried the following for relief of her symptoms: OTC Tylenol Physical Therapy: She has not had physical therapy for her current symptoms. Cannot afford PT Spinal Injections: She has not gotten prior spinal injections. Other: Chiropractor 12 years ago ALLERGIES Allergen Reactions Lipitor [Atorvastat* Other: See Comments muscle cramps Spironolactone Other: See Comments headache Aceon [Perindopril * Rash, Cough Codeine Intolerance Chest pain Lisinopril Cough dry hacking cough Current Medications: Pain medications reviewed and reconciled in the medication list: Yes. Current Outpatient Medications Medication Sig trospium (SANCTURA) 20 mg tablet Take 1 tablet by mouth daily at bedtime. isosorbide mononitrate ER (IMDUR) 30 mg 24 hr tablet Take 1 tablet by mouth once daily. labetalol (TRANDATE) 200 mg tablet Take 1 tablet by mouth two times a day. losartan (COZAAR) 100 mg tablet Take 1 tablet by mouth once daily. gabapentin (NEURONTIN) 300 mg capsule Take 1 capsule by mouth daily at bedtime for 90 days. blood sugar diagnostic (BLOOD GLUCOSE TEST) test strip Test blood sugar(s) 1 times daily. Dx: Prediabetes Insulin: No Lancets Test blood sugar(s) 1 times daily. Dx: Prediabetes Insulin: No rosuvastatin (CRESTOR) 20 mg tablet Take 1 tablet by mouth daily at bedtime. diphenhydrAMINE (BENADRYL) 25 mg tablet Take 25 mg by mouth at bedtime as needed. OTC PRODUCT Take 1 tablet by mouth once daily. Prevagen alendronate (FOSAMAX) 70 mg tablet Take 1 tablet by mouth one time a week. In AM with cup of water on empty stomach. Nothing else by mouth and stay upright for 30 min. levothyroxine (SYNTHROID) 88 mcg tablet Take one tablet daily Monday-Monday and two tablets on Monday amLODIPine (NORVASC) 2.5 mg tablet Take one tablet daily in addition to 5 mg to equal 7.5 mg daily amLODIPine (NORVASC) 5 mg tablet Take 1 tablet by mouth once daily. pantoprazole DR (PROTONIX) 40 mg tablet Take 1 tablet by mouth once daily. potassium chloride ER (KLOR-CON) 20 mEq tablet Take 2 tablets by mouth two times a day. meclizine (ANTIVERT) 25 mg tab Take 1 tablet by mouth three times a day as needed (vertigo). polyethylene glycol 3350 17 gram/dose powder Take 17 g by mouth once daily. Dissolve dose in 4 - 8 ounces of liquid and take as directed. doxylamine succinate (SLEEP AID ORAL) Take by mouth daily at bedtime. calcium carbonate-Vit D3-minerals (CALTRATE) 600 mg calcium- 400 unit tab Take 2 tablets by mouth once daily. ondansetron orally disintegrating (ZOFRAN ODT) 4 mg disintegrating tablet Take 1 tablet by mouth every 6 hours as needed for Nausea/Vomiting. 0.9 % sodium chloride (NACL 0.9%) 0.9% solp Infuse 500 ml IV over [address] Biotin 2,500 mcg cap Take 1 capsule by mouth once daily. aspirin, enteric coated (ASPIRIN, ENTERIC COATED) 81 mg EC tablet Take 81 mg by mouth once daily. No current facility-administered medications for this visit. PAST MEDICAL HISTORY Diagnosis Date Contact dermatitis and other eczema Degenerative arthritis of knee 05/24/2011 Delayed gastric emptying 07/24/2012 Diabetes mellitus type II (HCC) 05/31/2024 Diarrhea Diverticulitis Diverticulosis of colon (without mention of hemorrhage) Diverticulosis Dysphagia, unspecified 08/29/2017 Elevated alkaline phosphatase level 07/12/2018 Essential hypertension, benign GERD (gastroesophageal reflux disease) Hyperlipidemia Hypokalemia 09/25/2012 Hyponatremia Hypothyroidism Impaired fasting glucose 11/19/2015 Inadequate pelvic muscles 01/17/2012 Lumbar disc disease with radiculopathy 09/01/2016 Lung nodu (more content not included)... [facility] 03-25-2025 History of Present illness Narrative [facility] Date: March 25, 2025 - 7:53 AM Tashia Fernandez is seen in consultation requested by Dr. Elizabeth Og for an opinion regarding chronic neck pain. My final recommendations will be communicated back to the requesting physician by way of shared medical record or via US mail. Chief Complaint: neck Subjective Tashia Fernandez, is a 74 year old female who presents with neck pain that radiates down the right UE to the elbow The pain started The pain onset was gradual. The patient states that the current pain is persistent. Her pain is located in the right neck and radiates to right upper extremity along to the level of the elbow ////// The pain is described as aching, sharp, and stabbing. The pain intensity is currently rated 10 on a scale of 10. The pain is exacerbated by activity, twisting, flexion, and extension. The pain is relieved by application of heat. Symptoms interfere with physical activity, work, walking, cooking, and social activities. PAIN EVALUATION No data found in the last 1 encounters. Prior pain treatment has included: Medication(s): She has tried the following for relief of her symptoms: OTC Tylenol Physical Therapy: She has not had physical therapy for her current symptoms. Cannot afford PT Spinal Injections: She has not gotten prior spinal injections. Other: Chiropractor 12 years ago ALLERGIES Allergen Reactions Lipitor [Atorvastat* Other: See Comments muscle cramps Spironolactone Other: See Comments headache Aceon [Perindopril * Rash, Cough Codeine Intolerance Chest pain Lisinopril Cough dry hacking cough Current Medications: Pain medications reviewed and reconciled in the medication list: Yes. Current Outpatient Medications Medication Sig trospium (SANCTURA) 20 mg tablet Take 1 tablet by mouth daily at bedtime. isosorbide mononitrate ER (IMDUR) 30 mg 24 hr tablet Take 1 tablet by mouth once daily. labetalol (TRANDATE) 200 mg tablet Take 1 tablet by mouth two times a day. losartan (COZAAR) 100 mg tablet Take 1 tablet by mouth once daily. gabapentin (NEURONTIN) 300 mg capsule Take 1 capsule by mouth daily at bedtime for 90 days. blood sugar diagnostic (BLOOD GLUCOSE TEST) test strip Test blood sugar(s) 1 times daily. Dx: Prediabetes Insulin: No Lancets Test blood sugar(s) 1 times daily. Dx: Prediabetes Insulin: No rosuvastatin (CRESTOR) 20 mg tablet Take 1 tablet by mouth daily at bedtime. diphenhydrAMINE (BENADRYL) 25 mg tablet Take 25 mg by mouth at bedtime as needed. OTC PRODUCT Take 1 tablet by mouth once daily. Prevagen alendronate (FOSAMAX) 70 mg tablet Take 1 tablet by mouth one time a week. In AM with cup of water on empty stomach. Nothing else by mouth and stay upright for 30 min. levothyroxine (SYNTHROID) 88 mcg tablet Take one tablet daily Monday-Monday and two tablets on Monday amLODIPine (NORVASC) 2.5 mg tablet Take one tablet daily in addition to 5 mg to equal 7.5 mg daily amLODIPine (NORVASC) 5 mg tablet Take 1 tablet by mouth once daily. pantoprazole DR (PROTONIX) 40 mg tablet Take 1 tablet by mouth once daily. potassium chloride ER (KLOR-CON) 20 mEq tablet Take 2 tablets by mouth two times a day. meclizine (ANTIVERT) 25 mg tab Take 1 tablet by mouth three times a day as needed (vertigo). polyethylene glycol 3350 17 gram/dose powder Take 17 g by mouth once daily. Dissolve dose in 4 - 8 ounces of liquid and take as directed. doxylamine succinate (SLEEP AID ORAL) Take by mouth daily at bedtime. calcium carbonate-Vit D3-minerals (CALTRATE) 600 mg calcium- 400 unit tab Take 2 tablets by mouth once daily. ondansetron orally disintegrating (ZOFRAN ODT) 4 mg disintegrating tablet Take 1 tablet by mouth every 6 hours as needed for Nausea/Vomiting. 0.9 % sodium chloride (NACL 0.9%) 0.9% solp Infuse 500 ml IV over [address] Biotin 2,500 mcg cap Take 1 capsule by mouth once daily. aspirin, enteric coated (ASPIRIN, ENTERIC COATED) 81 mg EC tablet Take 81 mg by mouth once daily. No current facility-administered medications for this visit. PAST MEDICAL HISTORY Diagnosis Date Contact dermatitis and other eczema Degenerative arthritis of knee 05/24/2011 Delayed gastric emptying 07/24/2012 Diabetes mellitus type II (HCC) 05/31/2024 Diarrhea Diverticulitis Diverticulosis of colon (without mention of hemorrhage) Diverticulosis Dysphagia, unspecified 08/29/2017 Elevated alkaline phosphatase level 07/12/2018 Essential hypertension, benign GERD (gastroesophageal reflux disease) Hyperlipidemia Hypokalemia 09/25/2012 Hyponatremia Hypothyroidism Impaired fasting glucose 11/19/2015 Inadequate pelvic muscles 01/17/2012 Lumbar disc disease with radiculopathy 09/01/2016 Lung nodule < 6cm on CT 10/15/2018 10/07/18: incidental 4.5 mm nodule RML thyrotoxicosis Nonrheumatic mitral (valve) insufficiency Obesity Other osteoporosis 12/21/2006 Pancreatitis (HCC) Paroxysmal SVT (supraventricular tachycardia) (HCC) Personal history of colonic polyps Colon polyps POLYP STOMACH 07/13/2007 Stage 3a chronic kidney disease (HCC) Statin intolerance 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--surgery not needed (2015) Trigeminal neuralgia 10/11/2011 Trochanteric bursitis of left hip 07/24/2012 Unspecified hemorrhoids without mention of complication Hemorrhoids PAST SURGICAL HISTORY Procedure Laterality Date COLONOSCOPY FLX DX W/COLLJ SPEC WHEN PFRMD 12/2018 Colonoscopy COLONOSCOPY FLX DX W/COLLJ SPEC WHEN PFRMD 07/13/2007 Lax colon COLONOSCOPY FLX DX W/COLLJ SPEC WHEN PFRMD 03/26/2014 Colonoscopy COLONOSCOPY FLX DX W/COLLJ SPEC WHEN PFRMD 12/2018 CSB-Drhxspr-ndobtf 10 years COLONOSCOPY GEN ANES 04/28/2021 DECOMPRESSION PLANTAR DIGITAL NERVE 2000 heel spur/ plantar fasciitis repair Rt EGD 06/02/2021 EGD TRANSORAL BIOPSY SINGLE/MULTIPLE 07/13/2007 Gastritis, fundic gland polyps EGD W/O [facility] SPEC VARICIES INJ 01/03/2024 Dr. Kelley ESOPHAGOGASTRODUODENOSCOPY TRANSORAL DIAGNOSTIC 03/26/2014 EGD EYE SURGERY HX INCISE FINGER TENDON SHEATH Left 08/09/2024 Left ring trigger finger release LAPAROSCOPY SURG CHOLECYSTECTOMY Cholecystectomy, lap LIG/TRNSXJ FLP TUBE ABDL/VAG APPR UNI/BI LIGATE FALLOPIAN TUBE NEUROPLASTY &/TRANSPOS MEDIAN NRV CARPAL TUNNE Carpal tunnel decomp bilateral OPEN REPAIR OF ROTATOR CUFF ACUTE 1992 Rotator cuff repair, right STRESS TEST,COMPLETE_*FL FAMILY HISTORY Problem Relation Age of Onset Diabetes Mother Heart Mother Stroke Mother Hypertension Mother other (MVA) Father Hypertension Sister Heart Sister Hypertension Sister Heart Sister Hypertension Brother Heart Brother Hypertension Brother Cancer Brother Oral cancer Cancer Paternal Grandfather skin Breast Cancer Maternal Aunt Asthma No Family History Social History: Alcohol Use: No Tobacco Use: Types: Cigarettes Drug Use: No Employer And Job Title: [employer] (Retired); [employer] (Retired) Years Of Education Completed: 10 years Marital Status: with 2 children Patient Entered Questionnaires PROMIS Score Percentiles 03/17/2016 10/12/2016 07/26/2017 PROMIS Global Health Scale Physical Health Percentile 53 31 22* Mental Health Percentile 34 26* 34 Percentiles provide an indication of how the patient's score ranks in relation to the general population. Higher percentile rankings indicate better function/quality of life. 50th percentile is the average of the general population and indicates half of respondents had a worse score. > 31st percentile is within normal limits or better * < 31st percentile is at least SD worse than population, which may be clinically relevant < 16th percentile is at least 1 SD worse than population and warrants attention Review of Systems Constitutional: (-) Fever (-) Night Sweats (-) Weight Gain (-) Weight Loss (-) Fatigue Cardiovascular: (-) Chest Pain (+) Palpitations (- Lightheadedness (+) Swelling of Ankles (-) Hx Heart Surgery (-) Pacemaker Respiratory: (-) Shortness of Breath (-) Cough (-) Wheezing (+) Snoring Gastrointestinal: (+) Incontinence (+) Abdominal Pain (+) Diarrhea (+) Constipation (+) Nausea/Vomiting (+) Heart Burn Endocrine: (-) Thyroid Disorder (+) Diabetes Hematologic: (-) Prolonged Bleeding (-) Easy Bruising Genitourinary: (+) Incontinence (+) Frequency (+) Urinary Urgency Skin: (-) Rashes (-) Itching (-) Other Lesions Neurologic: (-) Headache (+) Double Vision (-) Confusion (-) Paralysis (-) Vertigo (-) Syncope Psychiatric: (-) Depression (-) Anxiety ////// Chief Complaint Patient presents with: Back Pain: Back pain and right shoulder pain Physical Examination Pulse 71 Resp 16 Wt 174 lb 9.7 oz (79.2kg) SpO2 97% General:well appearing and alert Skin: Skin color, texture, turgor normal, no rashes or lesions HEENT: normal Cardiovascular: Regular, rate and rhythm Lungs: Normal respiratory rate and rhythm, unlabored on room air Musculoskeletal: Neck: Tenderness over the cervical spine, Tenderness over the bilateral cervical paraspinal muscles, ROM intact Extremities: Normal exam of the extremities Neurological: Mental Status: alert Motor Strength: Motor strength and tone are 5/5 all throughout. Sensory: Sensation was intact to light touch all throughout. Gait: Antalgic. Trigger points: paravertebral cervical muscles, periscapular muscles, and trapezius muscles. Assessment Assessment : Tashia is a 74-year-old female presenting for evaluation of chronic neck pain radiating to the shoulder and arm. Her daughter presents at the visit. Tashia reports chronic neck pain primarily on the right side, radiating into the shoulder and down to the elbow, described as feeling like somebody's got a screwdriver in my shoulder. The pain does not extend to the fingertips. She has been experiencing this pain since the early 1999s following a work-related injury where cartons were dropped on her neck and back. She underwent rotator cuff surgery years ago and has been using heating pads around her neck at night to aid sleep. Her daughter applies topical muscle rubs, including Biofreeze, nightly. She occasionally performs arm stretches, which provide some relief, but does not engage in regular exercises. She reports pain when flexing her neck forward and mild pain when rotating her neck to the right and left. No pain with extension She has not pursued physical therapy due to cost and has not received injections, acupuncture, or used a TENS unit. She previously received massages and chiropractic adjustments 12-14 years ago. She expresses interest in injections but wants to understand her condition first. History of Cervical Spine MRI: 2021. Discussed cervical xr today. Last xr was 2020 Encounter Diagnosis ICD-10-CM 1. Muscle pain M79.10 2. Cervical spine pain M54.2 XR CERV OTHER 4V AP/LAT/OBL 3. Cervical spondylosis without myelopathy M47.812 4. Cervical spinal stenosis M48.02 5. DDD (degenerative disc disease), cervical M50.30 OARRS Report: Not Reviewed: not applicable Urine Panel: Lab Results Component Value Date Cannabinoid Quant, Urine <16 09/08/2023 Benzoylecgonine Quant, Urine <24 09/08/2023 6-Acetylmorphine Quant, Urine <5 09/08/2023 Amphetamine Quant, Urine <5 09/08/2023 Methamphetamine Quant, Urine <8 09/08/2023 Buprenorphine Quant, Urine <20 09/08/2023 Norbuprenorphine Quant, Urine <20 09/08/2023 Methadone Quant, Urine <16 09/08/2023 EDDP Quant, Urine <6 09/08/2023 Tramadol Quant, Urine <25 09/08/2023 Desmethyltramadol Quant, Urine <20 09/08/2023 Fentanyl Quant, Urine <6 09/08/2023 Norfentanyl Quant, Urine <6 09/08/2023 Codeine Quant, Urine <11 09/08/2023 Morphine Quant, Urine <10 09/08/2023 Dihydrocodeine Quant, Urine <5 09/08/2023 Hydrocodone Quant, Urine <8 09/08/2023 Oxycodone Quant, Urine <10 09/08/2023 Hydromorphone Quant, Urine <5 09/08/2023 Oxymorphone Quant, Urine <5 09/08/2023 The pain panel was N/A Discussion: A discussion was entertained regarding multicomponent back pain source. Discussed conservative options and focus on improvement of function. Discussed the rationale behind interventional approach and how it can facilitate improvement of pain but also diagnostic information that procedures provide. correction use of any opioid pain medication is discouraged in chronic benign pain. Plan Injection history was reviewed. Medication use and compliance were reviewed. 1. Ordered cervical xr 2. No meds prescibed today 3. Interventional procedure options discussed. Consider FREDDY 4. Encouraged regular home exercise program. Cannot afford PT 5) F/U in TBD. She does not have mychart The level of medical decision making for this encounter was moderate level. I spent a total of 40 minutes on the date of the service which included preparing to see the patient, [id number] patient care, completing clinical documentation, performing a medically appropriate examination, and ordering medications, tests, or procedures. 1. This document has been created with the use of voice recognition technology. It may contain inaccuracies: (e.g. misspellings, inaccurate syntax or word sense) that have escaped review. 2. The provider, nursing staff and medical assistants are a major part of YOUR TREATMENT TEAM and will be handling your phone calls and inquiries, if any. Unless explicitly told otherwise at the time of your office visit, your study results and ensuing treatment plans will be discussed during your follow-up appointment. If you do not have a follow-up appointment and wish to discuss any issues, please set up an appointment. 3. It is my practice to not fill disability or any other insurance-related forms/documentation. All of the office notes, study results, and other pertinent documentation generated as part of your evaluation will be available to you and to your Primary Care Physician (PCP). Use of this material to complete such forms will be at the discretion of your PCP/referring physician. The above plan and management options were discussed at length with patient. Patient is in agreement with the above and verbalized understanding. Jerri Palafox APRN, [place] March 25, 2025 documented in this encounter [facility] 03-19-2025 Note HNO ID: [id number] Author: SHERI REDDY RN Service: ? Author Type: Registered Nurse Type: Progress Notes Filed: 03/19/2025 11:29 Note Text: [facility] Telephonic Outreach Provider Action/CHAD Pt has been c/o headaches. Is asking if any of her medications could be contributing to her symptoms. She is interested in speaking with pharmacy Patient identified by Name and Date of . Discussed care with patient. Program Details Chronic Disease Management Status: Enrolled Effective Dates: 03/05/2025 - present Responsible Staff: Sheri Reddy RN Support and Services: Diabetes, Hypertension, Chronic Kidney Disease (CKD) Program Goals Targets Target Due Completed Completed By Outcome General education provided (managing stress, where to go/how to contact, etc.) 04/04/2025 -- -- -- Annual Medicare Wellness visit addressed 06/04/2025 -- -- -- Comprehensive CKD education provided 06/04/2025 -- -- -- Comprehensive Diabetes education provided 06/04/2025 -- -- -- Comprehensive HTN education provided 06/04/2025 -- -- -- Patient-stated goal addressed (add comment) 06/04/2025 -- -- -- Annual Nephrology visit addressed 06/04/2025 03/19/2025 Sheri Reddy RN Complete/Scheduled 09/16/25 Biannual PCP visit addressed 06/04/2025 03/19/2025 Sheri Reddy RN Complete/Scheduled 12/31 and 02/28 CKD lab care gaps addressed 06/04/2025 03/19/2025 Sheri Reddy RN Complete/Scheduled Diabetes lab care gaps addressed 06/04/2025 03/19/2025 Sheri Reddy RN Complete/Scheduled HTN lab care gaps addressed 06/04/2025 03/19/2025 Sheri Reddy RN Complete/Scheduled Intake assessments completed: ADLs, Fall Risk, SDOH 04/04/2025 12/03/2024 Sheri Reddy RN Complete Assessments CDM Assessment Medications: Do you have any questions about taking your medications or which medications you should be taking?: No Do you need any medication refills at this time, including any of the medication you might take only when needed?: No Social: It can be normal to feel anxious or down during a time like this. Would you like to talk to a mental health professional about how you have been feeling?: No Symptoms: Are you experiencing any new or worsening symptoms that you need to talk about today?: No ADLs No documentation this encounter Fall Risk No documentation this encounter SDOH No documentation this encounter Interventions The following were addressed during this visit: - HTN lab care gaps addressed - Month 3: Schedule/Order BMP Lab - Diabetes lab care gaps addressed - Month 1: Schedule/Order HbA1C Lab - Month 1: Schedule/Order Lipid Panel Lab - Month 1: Schedule Diabetes Eye Exam - Month 1: Provide Diabetes Education: Importance of Blood Sugar Monitoring - Month 1: Provide Diabetes Education: Signs and Symptoms of Low Blood Sugar - Evaluate for Consult to Diabetes Education - Evaluate for Referral to Pharmacy for Diabetes Medication Management - Evaluate for Referral to Endocrinology ([facility] only) - Month 1: Provide Diabetes Education: How to Manage Blood Sugar - Month 2: Provide Diabetes Education: Diet Modification: Plate Method - Month 2: Provide Diabetes Education: Diet Modification: Added Sugars in Drinks - Month 3: Provide Diabetes Education: Medication Adherence/Compliance - Month 3: Provide Diabetes Education: Understanding Medication - Month 3: Schedule/Order Urine Albumin Creatinine lab - Annual Nephrology visit addressed - CKD lab care gaps addressed - Month 1: Provide CKD Education: CKD LIDIA Education - Month 3: Schedule Annual Nephrology Appointment - Month 3: Schedule/Order Renal Panel Lab Biannually - Intake assessments completed: ADLs, Fall Risk, SDOH - Biannual PCP visit addressed - Schedule Biannual PCP Appointment - Month 1: Provide General Education: Smoking Cessation - Month 1: Provide General Education: Where to Go for Care - Month 1: Provide General Education: How to Contact Your Physician Team - Bi-Weekly Outreach (Recurring) Disposition Based on assessment rn, the following disposition is advised: No action needed Sheri Reddy RN March 19, 2025 11:27 AM [facility] 03-19-2025 History of Present illness Narrative Images from the original note were not included. [facility] Telephonic Outreach Provider Action/FYI Pt has been c/o headaches. Is asking if any of her medications could be contributing to her symptoms. She is interested in speaking with pharmacy Patient identified by Name and Date of . Discussed care with patient. Program Details Chronic Disease Management Status: Enrolled Effective Dates: 03/05/2025 - present Responsible Staff: Sheri Reddy RN Support and Services: Diabetes, Hypertension, Chronic Kidney Disease (CKD) Program Goals Targets Target Due Completed Completed By Outcome General education provided (managing stress, where to go/how to contact, etc.) 04/04/2025 -- -- -- Annual Medicare Wellness visit addressed 06/04/2025 -- -- -- Comprehensive CKD education provided 06/04/2025 -- -- -- Comprehensive Diabetes education provided 06/04/2025 -- -- -- Comprehensive HTN education provided 06/04/2025 -- -- -- Patient-stated goal addressed (add comment) 06/04/2025 -- -- -- Annual Nephrology visit addressed 06/04/2025 03/19/2025 Sheri Reddy RN Complete/Scheduled 09/16/25 Biannual PCP visit addressed 06/04/2025 03/19/2025 Sheri Reddy RN Complete/Scheduled 12/31 and 02/28 CKD lab care gaps addressed 06/04/2025 03/19/2025 Sheri Reddy RN Complete/Scheduled Diabetes lab care gaps addressed 06/04/2025 03/19/2025 Sheri Reddy RN Complete/Scheduled HTN lab care gaps addressed 06/04/2025 03/19/2025 Sheri Reddy RN Complete/Scheduled Intake assessments completed: ADLs, Fall Risk, SDOH 04/04/2025 12/03/2024 Sheri Reddy RN Complete Assessments CDM Assessment Medications: Do you have any questions about taking your medications or which medications you should be taking?: No Do you need any medication refills at this time, including any of the medication you might take only when needed?: No Social: It can be normal to feel anxious or down during a time like this. Would you like to talk to a mental health professional about how you have been feeling?: No Symptoms: Are you experiencing any new or worsening symptoms that you need to talk about today?: No ADLs No documentation this encounter Fall Risk No documentation this encounter SDOH No documentation this encounter Interventions The following were addressed during this visit: - HTN lab care gaps addressed - Month 3: Schedule/Order BMP Lab - Diabetes lab care gaps addressed - Month 1: Schedule/Order HbA1C Lab - Month 1: Schedule/Order Lipid Panel Lab - Month 1: Schedule Diabetes Eye Exam - Month 1: Provide Diabetes Education: Importance of Blood Sugar Monitoring - Month 1: Provide Diabetes Education: Signs and Symptoms of Low Blood Sugar - Evaluate for Consult to Diabetes Education - Evaluate for Referral to Pharmacy for Diabetes Medication Management - Evaluate for Referral to Endocrinology ([facility] only) - Month 1: Provide Diabetes Education: How to Manage Blood Sugar - Month 2: Provide Diabetes Education: Diet Modification: Plate Method - Month 2: Provide Diabetes Education: Diet Modification: Added Sugars in Drinks - Month 3: Provide Diabetes Education: Medication Adherence/Compliance - Month 3: Provide Diabetes Education: Understanding Medication - Month 3: Schedule/Order Urine Albumin Creatinine lab - Annual Nephrology visit addressed - CKD lab care gaps addressed - Month 1: Provide CKD Education: CKD LIDIA Education - Month 3: Schedule Annual Nephrology Appointment - Month 3: Schedule/Order Renal Panel Lab Biannually - Intake assessments completed: ADLs, Fall Risk, SDOH - Biannual PCP visit addressed - Schedule Biannual PCP Appointment - Month 1: Provide General Education: Smoking Cessation - Month 1: Provide General Education: Where to Go for Care - Month 1: Provide General Education: How to Contact Your Physician Team - Bi-Weekly Outreach (Recurring) Disposition Based on assessment rn, the following disposition is advised: No action needed Sheri Reddy RN March 19, 2025 11:27 AM documented in this encounter [facility] 03-19-2025 Note Patient Outreach ([facility]) TASHIA FERNANDEZ ([id number]) 1950 F Date Time Provider Department 03/19/25 SHERI REDDY AMBFRANCINEG During your visit today, we recorded the following information about you: Sheri Reddy RN 03/19/2025 11:29 AM Signed [facility] Telephonic Outreach Provider Pablo/CHAD Pt has been c/o headaches. Is asking if any of her medications could be contributing to her symptoms. She is interested in speaking with pharmacy Patient identified by Name and Date of . Discussed care with patient. Program Details Chronic Disease Management Status: Enrolled Effective Dates: 03/05/2025 - present Responsible Staff: Sheri Reddy RN Support and Services: Diabetes, Hypertension, Chronic Kidney Disease (CKD) Program Goals Targets Target Due Completed Completed By Outcome General education provided (managing stress, where to go/how to contact, etc.) 04/04/2025 -- -- -- Annual Medicare Wellness visit addressed 06/04/2025 -- -- -- Comprehensive CKD education provided 06/04/2025 -- -- -- Comprehensive Diabetes education provided 06/04/2025 -- -- -- Comprehensive HTN education provided 06/04/2025 -- -- -- Patient-stated goal addressed (add comment) 06/04/2025 -- -- -- Annual Nephrology visit addressed 06/04/2025 03/19/2025 Sheri Reddy RN Complete/Scheduled 09/16/25 Biannual PCP visit addressed 06/04/2025 03/19/2025 Sheri Reddy RN Complete/Scheduled 12/31 and 02/28 CKD lab care gaps addressed 06/04/2025 03/19/2025 Sheri Reddy RN Complete/Scheduled Diabetes lab care gaps addressed 06/04/2025 03/19/2025 Sheri Reddy RN Complete/Scheduled HTN lab care gaps addressed 06/04/2025 03/19/2025 Sheri Reddy RN Complete/Scheduled Intake assessments completed: ADLs, Fall Risk, SDOH 04/04/2025 12/03/2024 Sheri Reddy RN Complete Assessments CDM Assessment Medications: Do you have any questions about taking your medications or which medications you should be taking?: No Do you need any medication refills at this time, including any of the medication you might take only when needed?: No Social: It can be normal to feel anxious or down during a time like this. Would you like to talk to a mental health professional about how you have been feeling?: No Symptoms: Are you experiencing any new or worsening symptoms that you need to talk about today?: No ADLs No documentation this encounter Fall Risk No documentation this encounter SDOH No documentation this encounter Interventions The following were addressed during this visit: - HTN lab care gaps addressed - Month 3: Schedule/Order BMP Lab - Diabetes lab care gaps addressed - Month 1: Schedule/Order HbA1C Lab - Month 1: Schedule/Order Lipid Panel Lab - Month 1: Schedule Diabetes Eye Exam - Month 1: Provide Diabetes Education: Importance of Blood Sugar Monitoring - Month 1: Provide Diabetes Education: Signs and Symptoms of Low Blood Sugar - Evaluate for Consult to Diabetes Education - Evaluate for Referral to Pharmacy for Diabetes Medication Management - Evaluate for Referral to Endocrinology ([facility] only) - Month 1: Provide Diabetes Education: How to Manage Blood Sugar - Month 2: Provide Diabetes Education: Diet Modification: Plate Method - Month 2: Provide Diabetes Education: Diet Modification: Added Sugars in Drinks - Month 3: Provide Diabetes Education: Medication Adherence/Compliance - Month 3: Provide Diabetes Education: Understanding Medication - Month 3: Schedule/Order Urine Albumin Creatinine lab - Annual Nephrology visit addressed - CKD lab care gaps addressed - Month 1: Provide CKD Education: CKD LIDIA Education - Month 3: Schedule Annual Nephrology Appointment - Month 3: Schedule/Order Renal Panel Lab Biannually - Intake assessments completed: ADLs, Fall Risk, SDOH - Biannual PCP visit addressed - Schedule Biannual PCP Appointment - Month 1: Provide General Education: Smoking Cessation - Month 1: Provide General Education: Where to Go for Care - Month 1: Provide General Education: How to Contact Your Physician Team - Bi-Weekly Outreach (Recurring) Disposition Based on assessment rn, the following disposition is advised: No action needed Sheri Reddy RN March 19, 2025 11:27 AM Allergies As of Date: 03/19/2025 Noted Allergy Reaction LIPITOR (ATORVASTATIN CALCIUM) 10/21/2014 14 - Other: See Comments Comments: muscle cramps SPIRONOLACTONE 03/21/2014 14 - Other: See Comments Comments: headache ACEON (PERINDOPRIL ERBUMINE) 11/02/2005 2 - Rash 3 - Cough CODEINE 12/09/2009 5 - Intolerance Comments: Chest pain LISINOPRIL 10/07/2005 3 - Cough Comments: dry hacking cough Date Reviewed: 03/11/2025 Reviewed by: Choco, Richelle, MA - Fully Assessed Prescriptions as of 04/01/2025 - trospium (SANCTURA) 20 mg tablet Take 1 tablet by mouth daily at bedtime. - (more content not included)... [facility] 03-13-2025 Telephone encounter Note Patient notified. [facility] 03-13-2025 Miscellaneous Notes Patient notified. Please notify patient that her serum sodium is in the normal range and her kidney function remains within her baseline. Continue current management. documented in this encounter [facility] 03-12-2025 Telephone encounter Note Please notify patient that her serum sodium is in the normal range and her kidney function remains within her baseline. Continue current management. [facility] 03-11-2025 Instructions Jean-Pierre Velazco I, MD - 03/11/2025 2:38 PM EDT Avoid Advil ,Ibuprofen(Motrin),Aleve(Naproxen) ,Meloxicam and other pain/arthritis medications called NSAIDS. You can take Tylenol if necessary. Avoid intravenous contrast with imaging studies if possible. If this is needed, please have the ordering provider contact nephrology Fluid restriction 50-60 ounces per day Please stop by the lab today and in 2 weeks to have labs done. Check BP at home at noon and 9 pm for next two weeks and bring this record along with your BP machine to nurse-clinic visit. BP check in 2 weeks Have blood work done in 6 months . Follow up with Dr. Velazco in 6 months. Please have you lab work done one week prior to your appointment. Please bring a complete list of your medications, the dosage and times taken- to every visit. We want to know that ALL of your concerns/needs relevant to this visit- were met today and that we have hopefully exceeded your expectations. If not-please let us know how we can improve our service to you by calling [phone] You may be receiving a survey regarding your care today. If you do, please take a few minutes to fill it out and send it back. It would be greatly appreciated. documented in this encounter [facility] 03-11-2025 History of Present illness Narrative Images from the original note were not included. [facility]. Name:Tashia Fernandez The patient, Tashia Fernandez's, identity was verified by name and MRN. Pt is accompanied in the office today by her daughter Consultation requested by Dr. Elisa Starr ,for my opinion regarding CKD 3 and hyponatremia. My final recommendations will be communicated back to the requesting physician by way of shared Medical record or letter . PCP:Elisa Starr MD HPI: Tashia Fernandez is a 74-year-old female with H/O Hyperlipidemia,HTN, CAD, SVT, valvular heart disease, GERD, post ablative hypothyroidism, osteoporosis, DJD and trigeminal neuralgia-seen for evaluation of CKD 3 and hyponatremia. -CKD 3:Review of records shows her serum cr has been abnormal since 2017. Baseline serum cr:1.0-1.1 mg/dl. She has noticed a proteinuria-on losartan. No H/O frequent bladder infections or kidney stones in the past. CT abdomen and pelvis done on 01/21/2025 showed kidneys without any mass, stones or hydronephrosis. Denies NSAID use. -Hyponatremia:Chronic hyponatremia dating back many years -Noted to be present off and on since 2016 at least.. Serum sodium has mostly ranged between 131-134. she is not on any medications known to cause hyponatremia.Serum and urine studies done in December 2024 showed normal serum osmolality-urine sodium was 34 and urine osmolality was around 422. She reports drinking a lot of water daily. She has some dyspnea on exertion. Denies recent worsening Denies CP, orthopnea, PND or palpitations. Denies leg edema No fever, chills or dizziness-takes meclizine for vertigo. No nausea, emesis, abdominal pain or persistent diarrhea. No dysuria, gross hematuria or new flank pain-Has cystocele with chronic urinary incontinence. Followed by urology Denies generalized skin rash or arthralgias. She reports a chronic headache localized to the left side of her head, persisting for over a month-which has been evaluated. The headache has not improved with a course of prednisone. She denies gait instability, confusion, worsening of her chronic blurred vision or increased somnolence. Detailed review of systems is as below. I have reviewed current medications and allergies Current Outpatient Medications Medication Sig trospium (SANCTURA) 20 mg tablet Take 1 tablet by mouth daily at bedtime. isosorbide mononitrate ER (IMDUR) 30 mg 24 hr tablet Take 1 tablet by mouth once daily. labetalol (TRANDATE) 200 mg tablet Take 1 tablet by mouth two times a day. losartan (COZAAR) 100 mg tablet Take 1 tablet by mouth once daily. gabapentin (NEURONTIN) 300 mg capsule Take 1 capsule by mouth daily at bedtime for 90 days. blood sugar diagnostic (BLOOD GLUCOSE TEST) test strip Test blood sugar(s) 1 times daily. Dx: Prediabetes Insulin: No Lancets Test blood sugar(s) 1 times daily. Dx: Prediabetes Insulin: No rosuvastatin (CRESTOR) 20 mg tablet Take 1 tablet by mouth daily at bedtime. diphenhydrAMINE (BENADRYL) 25 mg tablet Take 25 mg by mouth at bedtime as needed. OTC PRODUCT Take 1 tablet by mouth once daily. Prevagen alendronate (FOSAMAX) 70 mg tablet Take 1 tablet by mouth one time a week. In AM with cup of water on empty stomach. Nothing else by mouth and stay upright for 30 min. levothyroxine (SYNTHROID) 88 mcg tablet Take one tablet daily Monday-Monday and two tablets on Monday amLODIPine (NORVASC) 2.5 mg tablet Take one tablet daily in addition to 5 mg to equal 7.5 mg daily amLODIPine (NORVASC) 5 mg tablet Take 1 tablet by mouth once daily. pantoprazole DR (PROTONIX) 40 mg tablet Take 1 tablet by mouth once daily. potassium chloride ER (KLOR-CON) 20 mEq tablet Take 2 tablets by mouth two times a day. meclizine (ANTIVERT) 25 mg tab Take 1 tablet by mouth three times a day as needed (vertigo). polyethylene glycol 3350 17 gram/dose powder Take 17 g by mouth once daily. Dissolve dose in 4 - 8 ounces of liquid and take as directed. doxylamine succinate (SLEEP AID ORAL) Take by mouth daily at bedtime. calcium carbonate-Vit D3-minerals (CALTRATE) 600 mg calcium- 400 unit tab Take 2 tablets by mouth once daily. ondansetron orally disintegrating (ZOFRAN ODT) 4 mg disintegrating tablet Take 1 tablet by mouth every 6 hours as needed for Nausea/Vomiting. 0.9 % sodium chloride (NACL 0.9%) 0.9% solp Infuse 500 ml IV over [address] Biotin 2,500 mcg cap Take 1 capsule by mouth once daily. aspirin, enteric coated (ASPIRIN, ENTERIC COATED) 81 mg EC tablet Take 81 mg by mouth once daily. No current facility-administered medications for this visit. PAST MEDICAL HISTORY Diagnosis Date Contact dermatitis and other eczema Degenerative arthritis of knee 05/24/2011 Delayed gastric emptying 07/24/2012 Diabetes mellitus type II (HCC) 05/31/2024 Diarrhea Diverticulitis Diverticulosis of colon (without mention of hemorrhage) Diverticulosis Dysphagia, unspecified 08/29/2017 Elevated alkaline phosphatase level 07/12/2018 Essential hypertension, benign GERD (gastroesophageal reflux disease) Hyperlipidemia Hypokalemia 09/25/2012 Hyponatremia Hypothyroidism Impaired fasting glucose 11/19/2015 Inadequate pelvic muscles 01/17/2012 Lumbar disc disease with radiculopathy 09/01/2016 Lung nodule < 6cm on CT 10/15/2018 10/07/18: incidental 4.5 mm nodule RML thyrotoxicosis Nonrheumatic mitral (valve) insufficiency Obesity Other osteoporosis 12/21/2006 Pancreatitis (HCC) Paroxysmal SVT (supraventricular tachycardia) (HCC) Personal history of colonic polyps Colon polyps POLYP STOMACH 07/13/2007 Stage 3a chronic kidney disease (HCC) Statin intolerance 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--surgery not needed (2016) Trigeminal neuralgia 10/11/2011 Trochanteric bursitis of left hip 07/24/2012 Unspecified hemorrhoids without mention of complication Hemorrhoids PAST SURGICAL HISTORY Procedure Laterality Date COLONOSCOPY FLX DX W/COLLJ SPEC WHEN PFRMD 12/2018 Colonoscopy COLONOSCOPY FLX DX W/COLLJ SPEC WHEN PFRMD 07/13/2007 Lax colon COLONOSCOPY FLX DX W/COLLJ SPEC WHEN PFRMD 03/26/2014 Colonoscopy COLONOSCOPY FLX DX W/COLLJ SPEC WHEN PFRMD 12/2018 [id number] 10 years COLONOSCOPY GEN ANES 04/28/2021 DECOMPRESSION PLANTAR DIGITAL NERVE 2000 heel spur/ plantar fasciitis repair Rt EGD 06/02/2021 EGD TRANSORAL BIOPSY SINGLE/MULTIPLE 07/13/2007 Gastritis, fundic gland polyps EGD W/O [facility] SPEC VARICIES INJ 01/03/2024 Dr. Kelley ESOPHAGOGASTRODUODENOSCOPY TRANSORAL DIAGNOSTIC 03/26/2014 EGD EYE SURGERY HX INCISE FINGER TENDON SHEATH Left 08/09/2024 Left ring trigger finger release LAPAROSCOPY SURG CHOLECYSTECTOMY Cholecystectomy, lap LIG/TRNSXJ FLP TUBE ABDL/VAG APPR UNI/BI LIGATE FALLOPIAN TUBE NEUROPLASTY &/TRANSPOS MEDIAN NRV CARPAL TUNNE Carpal tunnel decomp bilateral OPEN REPAIR OF ROTATOR CUFF ACUTE 1992 Rotator cuff repair, right STRESS TEST,COMPLETE_*FL SOCIAL HISTORY: Social History Tobacco Use Smoking status: Former Current packs/day: 0.10 Average packs/day: 0.1 packs/day for 1 year (0.1 ttl pk-yrs) Types: Cigarettes Smokeless tobacco: Never Tobacco comments: Smoked 1 year or less in 1980s. Spouse was smoker in home for 39 years. Father smoked in childhood home. Vaping Use Vaping status: Never Used Substance Use Topics Alcohol use: No Drug use: No Employer And Job Title: [employer] (Retired); [employer] (Retired) Years Of Education Completed: 10 years Marital Status: with 2 children FAMILY HISTORY: FAMILY HISTORY Problem Relation Age of Onset Diabetes Mother Heart Mother Stroke Mother Hypertension Mother other (MVA) Father Hypertension Sister Heart Sister Hypertension Sister Heart Sister Hypertension Brother Heart Brother Hypertension Brother Cancer Brother Oral cancer Cancer Paternal Grandfather skin Breast Cancer Maternal Aunt Asthma No Family History REVIEW OF SYSTEMS: GENERAL: no fever, chills or weight loss HEENT: Left-sided headache as above RESP: no worsening SOB, cough, or pleuritic chest pain CARDIAC: no chest pain, palpitations or leg edema GASTROINTESTINAL:No nausea,emesis or abdominal pain;No diarrhea-Has GERD GENITO-URINARY: no dysuria or gross hematuria-Chronic urinary incontinence. PERIPHERAL VASCULAR: no complaints stated RHEUMATOLOGICAL:Osteoporosis, DJD. SKIN: no generalized skin rash or ulcers INFECTIOUS DISEASES: no complaints stated NEUROLOGICAL:Has trigeminal neuralgia- no focal weakness or seizures PSYCHIATRIC: Denies depressive illness,anxiety disorder. PHYSICAL EXAMINATION: BP 145/79 Pulse 70 Temp 36.6 C (97.8 F) (Oral) Ht 152.4 cm (5') Wt 78.9 kg (174 lb) SpO2 96% BMI 33.98 kg/m Last BP 03/11/25 : 145/79 02/21/25 : 140/82 01/07/25 : 144/74 Last Wt 03/11/25 78.9 kg (174 lb) 02/25/25 77.6 kg (171 lb) 02/21/25 78.8 kg (173 lb 12.8 oz) GENERAL: alert, well appearing, and in no acute distress. SPEECH PATTERN: normal HEENT: EOMI-nonicteric sclera. NECK: supple- no carotid bruit; No JVD, LN or thyromegaly LUNGS: clear to auscultation, normal respiratory effort. HEART: RRR; Normal S1, S2, no S3,S4-No murmurs or rub. ABDOMEN: Abdomen soft, nontender, organomegaly could not be excluded ; bowel sounds present. EXTREMITIES: no leg edema MUSCULOSKELETAL: No spinal or CVA tenderness. NEURO: Alert and oriented 3; no focal deficit on limited exam SKIN: no generalized skin rash or ulcers PSYCHIATRY:Appropriate mood and affect REVIEWED LABS : Latest Ref Rng & Units 03/06/2024 05/16/2024 05/29/2024 12/25/2024 12/25/202412/31/2024 01/10/2025 CKD LAB FLOWSHEET EGFR, All Other >=60 mL/min/1.73m 54 61 53 55 Creatinine 0.58 - 0.96 mg/dL 1.07 0.97 1.08 1.05 BUN 7 - 21 mg/dL 17 11 15 17 Sodium 136 - 144 mmol/L 133 132 134 131 Potassium 3.7 - 5.1 mmol/L 4.9 4.5 4.2 4.3 Chloride 98 - 107 mmol/L 100 97 99 94 CO2 22 - 30 mmol/L 22 25 25 25 Glucose 74 - 99 mg/dL 76 103 90 97 Calcium 8.5 - 10.2 mg/dL 9.6 9.3 9.6 9.6 Albumin 3.9 - 4.9 g/dL 4.0 4.2 4.4 ALT 7 - 38 U/L 17 13 13 WBC 3.70 - 11.00 k/uL 7.43 8.68 HGB 11.5 - 15.5 g/dL 12.1 12.6 PLT 150 - 400 k/uL 305 289 Creatinine Urine Random 20.0 - 300.0 mg/dL 77.0 Cholesterol, Total <200 mg/dL 172 Triglycerides <150 mg/dL 114 HDL Cholesterol >39 mg/dL 50 LDL Cholesterol <100 mg/dL 99 ] CBC, Coags, BMP, Mg, Phos Office urinalysis: Lab Results Component Value Date UGLUCPOC Negative 02/25/2025 UBILIPOC Negative 02/25/2025 UKETONPOC Negative 02/25/2025 USGPOC 1.015 02/25/2025 UHBPOC Negative 02/25/2025 UPHPOC 7.5 02/25/2025 UPROPOC Negative 02/25/2025 UUROPOC 0.2 02/25/2025 UNITPOC Negative 02/25/2025 UWBCPOC Small (A) 02/25/2025 UCOLPOC Yellow 02/25/2025 UCLARPOC Clear 02/25/2025 ASSESSMENT: Tashia Fernandez is a 74-year-old female with H/O Hyperlipidemia, CAD, SVT, valvular heart disease, GERD, post ablative hypothyroidism, osteoporosis, DJD and trigeminal neuralgia-seen for evaluation of CKD 3 and hyponatremia. - Stage 3a chronic kidney disease (HCC) (primary encounter diagnosis):Long-standing CKD in the setting of multiple comorbidities. Serum creatinine has been abnormal since 2017. Baseline creatinine has ranged between 1.0-1.1 mg/dL. Her eGFR is consistent with stage III CKD. She has noticed a proteinuria-on losartan. CT abdomen pelvis with IV contrast done in January 2025 did not show any stones, mass or obstruction. Latest creatinine level from 12/25/2024 was within baseline at 1.05 mg/dL. Will update labs to check trend and rule out reversible factors. Discussed need to manage risk factors and avoid NSAIDs, IV contrast and other nephrotoxins -Hyponatremia:Chronic hyponatremia dating back many years -Noted to be present off and on since 2016 at least.. Serum sodium has mostly ranged between 131-134. she is not on any medications known to induce hyponatremia. She most likely has reset osmostat. We will update serum and urine studies to assess etiology of chronic intermittent hyponatremia. Patient has CKD stage IIIa. Will check adrenal and thyroid function. Latest serum sodium from 12/25/2024 was 131 She does not have any signs or symptoms attributable to her hyponatremia at this time.Will place on fluid restriction with monitoring of sodium. - Essential hypertension: Suboptimal BP control.She is on amlodipine 7.5 mg, labetalol 200 mg twice a day and losartan 100 mg daily. Discussed no added salt/DASH diet, regular physical activity and weight loss as lifestyle modifications needed to control BP. Will monitor BP and adjust medications to achieve target of 130/80 or less. - Chronic kidney disease-mineral and bone disorder: Will check and update periodically calcium, phosphorus, 25-hydroxy vitamin D and intact PTH levels to assess for intervention in the setting of CKD 3. - Diabetes mellitus type II (HCC): Diet controlled; last Hgb A1C from December 2024 was at target. - Hyperlipidemia, unspecified hyperlipidemia type:On statins-Recommend LDL goal of <100 to prevent progression of CKD. PLAN: Avoid Aleve,Advil,Naproxen,Indocin and other related medications called NSAIDS. Can take Tylenol if necessary. Avoid IV contrast Follow low salt and low-protein diet Fluid restriction 50-60 ounces per day Please stop by the lab today and in 2 weeks to have labs done. Check BP at home at noon and 9 pm for next two weeks and bring this record along with your BP machine to nurse-clinic visit. BP check in 2 weeks Office Visit on 03/11/25 RENAL FUNCTION PANEL OSMOLALITY URINE OSMOLALITY SODIUM RANDOM URINE THYROID STIMULATING HORMONE CORTISOL, SERUM PTH INTACT URIC ACID MAGNESIUM BMP in 2 weeks Labs in 6 months Discussed renal status, prognosis, management of risk factors and future monitoring- at length with patient. All concerns addressed. F/U in 6 months Thank you for the consult. SIGNATURE:Jean-Pierre Velazco MD DATE: 03/11/2025 TIME: 3:27 PM CC: REFERRING PROVIDER: Elisa Starr,* PRIMARY CARE PHYSICIAN: Elisa Starr MD This note was generated with voice recognition software and may contain errors, including spelling, grammar, syntax and misrecognition of what was dictated, that are not fully corrected documented in this encounter [facility] 03-11-2025 Note HNO ID: [id number] Author: JEAN-PIERRE VELAZCO MD Service: ? Author Type: Physician Type: Progress Notes Filed: 03/11/2025 15:29 Note Text: [facility]. Name:Tashia Fernandez The patient, Tashia Dillard, identity was verified by name and MRN. Pt is accompanied in the office today by her daughter Consultation requested by Dr. Elisa Starr ,for my opinion regarding CKD 3 and hyponatremia. My final recommendations will be communicated back to the requesting physician by way of shared Medical record or letter . PCP:Elisa Starr MD HPI: Tashia Fernandez is a 74-year-old female with H/O Hyperlipidemia,HTN, CAD, SVT, valvular heart disease, GERD, post ablative hypothyroidism, osteoporosis, DJD and trigeminal neuralgia-seen for evaluation of CKD 3 and hyponatremia. -CKD 3:Review of records shows her serum cr has been abnormal since 2017. Baseline serum cr:1.0-1.1 mg/dl. She has noticed a proteinuria-on losartan. No H/O frequent bladder infections or kidney stones in the past. CT abdomen and pelvis done on 01/21/2025 showed kidneys without any mass, stones or hydronephrosis. Denies NSAID use. -Hyponatremia:Chronic hyponatremia dating back many years -Noted to be present off and on since 2016 at least.. Serum sodium has mostly ranged between 131-134. she is not on any medications known to cause hyponatremia.Serum and urine studies done in December 2024 showed normal serum osmolality-urine sodium was 34 and urine osmolality was around 422. She reports drinking a lot of water daily. She has some dyspnea on exertion. Denies recent worsening Denies CP, orthopnea, PND or palpitations. Denies leg edema No fever, chills or dizziness-takes meclizine for vertigo. No nausea, emesis, abdominal pain or persistent diarrhea. No dysuria, gross hematuria or new flank pain-Has cystocele with chronic urinary incontinence. Followed by urology Denies generalized skin rash or arthralgias. She reports a chronic headache localized to the left side of her head, persisting for over a month-which has been evaluated. The headache has not improved with a course of prednisone. She denies gait instability, confusion, worsening of her chronic blurred vision or increased somnolence. Detailed review of systems is as below. I have reviewed current medications and allergies Current Outpatient Medications Medication Sig trospium (SANCTURA) 20 mg tablet Take 1 tablet by mouth daily at bedtime. isosorbide mononitrate ER (IMDUR) 30 mg 24 hr tablet Take 1 tablet by mouth once daily. labetalol (TRANDATE) 200 mg tablet Take 1 tablet by mouth two times a day. losartan (COZAAR) 100 mg tablet Take 1 tablet by mouth once daily. gabapentin (NEURONTIN) 300 mg capsule Take 1 capsule by mouth daily at bedtime for 90 days. blood sugar diagnostic (BLOOD GLUCOSE TEST) test strip Test blood sugar(s) 1 times daily. Dx: Prediabetes Insulin: No Lancets Test blood sugar(s) 1 times daily. Dx: Prediabetes Insulin: No rosuvastatin (CRESTOR) 20 mg tablet Take 1 tablet by mouth daily at bedtime. diphenhydrAMINE (BENADRYL) 25 mg tablet Take 25 mg by mouth at bedtime as needed. OTC PRODUCT Take 1 tablet by mouth once daily. Prevagen alendronate (FOSAMAX) 70 mg tablet Take 1 tablet by mouth one time a week. In AM with cup of water on empty stomach. Nothing else by mouth and stay upright for 30 min. levothyroxine (SYNTHROID) 88 mcg tablet Take one tablet daily Monday-Monday and two tablets on Monday amLODIPine (NORVASC) 2.5 mg tablet Take one tablet daily in addition to 5 mg to equal 7.5 mg daily amLODIPine (NORVASC) 5 mg tablet Take 1 tablet by mouth once daily. pantoprazole DR (PROTONIX) 40 mg tablet Take 1 tablet by mouth once daily. potassium chloride ER (KLOR-CON) 20 mEq tablet Take 2 tablets by mouth two times a day. meclizine (ANTIVERT) 25 mg tab Take 1 tablet by mouth three times a day as needed (vertigo). polyethylene glycol 3350 17 gram/dose powder Take 17 g by mouth once daily. Dissolve dose in 4 - 8 ounces of liquid and take as directed. doxylamine succinate (SLEEP AID ORAL) Take by mouth daily at bedtime. calcium carbonate-Vit D3-minerals (CALTRATE) 600 mg calcium- 400 unit tab Take 2 tablets by mouth once daily. ondansetron orally disintegrating (ZOFRAN ODT) 4 mg disintegrating tablet Take 1 tablet by mouth every 6 hours as needed for Nausea/Vomiting. 0.9 % sodium chloride (NACL 0.9%) 0.9% solp Infuse 500 ml IV over [address] Biotin 2,500 mcg cap Take 1 capsule by mouth once daily. aspirin, enteric coated (ASPIRIN, ENTERIC COATED) 81 mg EC tablet Take 81 mg by mouth once daily. No current facility-administered medications for this visit. PAST MEDICAL HISTORY Diagnosis Date Contact dermatitis and other eczema Degenerative arthritis of knee 05/24/2011 Delayed ga (more content not included)... [facility] 03-03-2025 Telephone encounter Note Consult to spine medicine placed. Please let patient know she can schedule appointment at her convenience. Elizabeth Og APRN.CONSTANTINO [facility] 03-03-2025 Miscellaneous Notes Consult to spine medicine placed. Please let patient know she can schedule appointment at her convenience. Elizabeth Og APRN.CNP Patient agreeable to see farm specialist. Please place referral and call patient to assist with scheduling. Richa Wilkinson RN I would recommend she see spine for this if she is not wanting to try any PT Elizabeth gO APRN.CNP Patient saw Lynn Og CNP on 02/21/25 and was ordered prednisone for her cervical pain. Pt reports she completed the prednisone and it did nothing to help her. She states she does not want physical therapy, as next option. States she would like to see Neurology to get to the root of the problem. Reports continued sharp shooting pain in the left top of her head as well as pain in her right arm and elbow. Pt states she feels it is nerve related. Please call pt back with provider's response. Richa Wilkinson RN documented in this encounter [facility] 03-03-2025 Telephone encounter Note Patient agreeable to see farm specialist. Please place referral and call patient to assist with scheduling. Richa Wilkinson RN [facility] 03-03-2025 Telephone encounter Note I would recommend she see spine for this if she is not wanting to try any PT Elizabeth Og APRN.CNP [facility] 03-03-2025 Telephone encounter Note Patient saw Lynn Og CNP on 02/21/25 and was ordered prednisone for her cervical pain. Pt reports she completed the prednisone and it did nothing to help her. She states she does not want physical therapy, as next option. States she would like to see Neurology to get to the root of the problem. Reports continued sharp shooting pain in the left top of her head as well as pain in her right arm and elbow. Pt states she feels it is nerve related. Please call pt back with provider's response. Richa Wilkinson RN [facility] 02-25-2025 Instructions Mare Calderon APRN.CONSTANTINO - 02/25/2025 11:24 AM EDT Begin the new nighttime medication trospium 20 mg as prescribed to help reduce your urge to urinate at night. Use it for four weeks and follow up if you notice no improvement. Adjust the timing of your Miralax by taking it earlier in the day (around dinner time) instead of at night. Continue taking prednisone 4 mg daily for your headaches. Practice daily pelvic floor (Kegel) exercises--squeeze as if holding a marble (10 repetitions at a few intervals during the day) to help strengthen your muscles. Review the information provided on using a pessary as an alternative option if your nighttime symptoms do not improve. documented in this encounter [facility] 02-25-2025 Note HNO ID: [id number] Author: MARE CALDERON APRN.CNP Service: ? Author Type: Nurse Practitioner Type: Progress Notes Filed: 02/25/2025 17:53 Note Text: Consultation requested by Dr. Starr for an opinion regarding nocturia, urgency. My final recommendations will be communicated back to the requesting physician by way of shared medical record or letter via [place] mail Subjective The patient is a 74-year-old female with a history of diverticulitis, presenting for evaluation of nocturia and urinary urgency. Nocturia and Urinary Urgency: - Nocturia x1 year, waking every hour during the night at times - Urinary urgency and occasional incontinence upon arriving home. - Occasional urinary leakage with coughing, laughing, or sneezing. - Denies use of pads, but occasionally changes underwear due to leakage. - Denies dysuria, hematuria, or history of UTIs. - No history of bladder or kidney surgery. - Takes Miralax with 8 oz of fluid at bedtime. - Minimal caffeine intake; occasionally drinks Coke and has switched to decaf coffee. Diverticulitis: - History of diverticulitis; was scheduled for bowel surgery in 2019. - Difficulty with bowel prep for colonoscopy, requiring three attempts for the last procedure in 2018 or 2020. Chronic Kidney Disease: - Diagnosed with stage 3 CKD; recent labs show stable kidney function. -creatinine 1.05 Hypertension: - Reports elevated blood pressure readings recently, attributed to headaches. - Previously on diuretics, discontinued by technical publications writer Dr. Strickland. Headaches: - Severe headaches, described as starting in the back and radiating to the front. - Currently taking Prednisone 4 mg daily for headache management. Obstetric History: - Three pregnancies, two live births, one miscarriage. - Both live births were vaginal deliveries. - Denies significant vaginal bulge. Genitourinary: (+) nocturia, (+) urgency, (+) stress incontinence, (+) dribbling, (-) dysuria, (-) hematuria SENSITIVE EXAMINATION CONSENT: The sensitive examination was discussed with the Patient or Patient's Authorized Label Sewer. As applicable, any other physician, advance practice provider, medical student, or other health professional student that will be observing or involved in the sensitive examination for educational or training purposes was discussed with the Patient or Authorized Label Sewer. The Patient or Authorized Label Sewer has agreed to proceed with the sensitive examination. Objective Height 152.4 cm (5'), weight 77.6 kg (171 lb). General: Alert AND oriented, no acute distress Skin: Normal Respiratory: normal chest rise Abdomen: Soft, non-tender, non-distended, no masses palpable, no hepatosplenomegaly, normal bowel sounds Genitourinary: Stage 3 cystocele, weak pelvic floor muscles bilaterally MSK: Back is non-tender Extremities: No clubbing, cyanosis, or edema Latest Ref Rng 02/25/2025 GLUCOSE UA (POCT) Negative mg/dL Negative BILIRUBIN UA (POCT) Negative Negative KETONE UA (POCT) Negative mg/dL Negative SPECIFIC GRAVITY UA (POCT) 1.005 - 1.030 1.015 HEMOGLOBIN/BLOOD UA (POCT) Negative Negative PH UA (POCT) 4.5 - 8.0 7.5 PROTEIN UA (POCT) Negative mg/dL Negative UROBILINOGEN UA (POCT) Normal E.U./dL 0.2 NITRITE UA (POCT) Negative Negative LEUKOCYTES UA (POCT) Negative Small ! COLOR UA (POCT) Yellow CLARITY UA (POCT) Clear 1. Nocturia (R35.1) -stop fluids 3 hours prior to bed -start trospium 20 mg po prior to bed -PVR 0 cc 2. POP-Q stage 3 cystocele (N81.10) - Nocturia likely secondary to stage 3 cystocele observed during pelvic examination. Pelvic floor muscles noted to be weak. Educated on Kegel exercises to strengthen pelvic floor muscles. Initiated Trospium once daily in the evening to manage nocturia. Discussed potential use of a pessary to support the bladder; provided informational material. Follow-up in four weeks to assess efficacy of medication and discuss further management options if necessary. 3. Screening for genitourinary condition (Z13.89) - Pelvic examination performed to assess for prolapse and evaluate pelvic floor muscle strength. No evidence of urinary retention; bladder is empty. No signs of hydronephrosis, renal calculi, or obstructions on recent CT scan. 4. Stage 3 chronic kidney disease, unspecified whether stage 3a or 3b CKD (HCC) (N18.30) - CKD stage 3 remains stable with no progression noted. Recent laboratory results from December confirm stable renal function. No evidence of hydronephrosis, renal calculi, or obstructions on recent CT scan. 5. Nonintractable headache, unspecified chronicity pattern, unspecified headache type (R51.9) - Currently managed with Prednisone 4 mg daily. No imaging studies performed to date. Monitor for response to current treatment and consider further diagnostic evaluation if headaches persist. Mare Calderon, BOWLING BALL ASSEMBLER.CASH ACCOUNTING CLERK Follow up in 6 weeks for medicati (more content not included)... [facility] 02-25-2025 History of Present illness Narrative Consultation requested by Dr. Starr for an opinion regarding nocturia, urgency. My final recommendations will be communicated back to the requesting physician by way of shared medical record or letter via [place] mail Subjective The patient is a 74-year-old female with a history of diverticulitis, presenting for evaluation of nocturia and urinary urgency. Nocturia and Urinary Urgency: - Nocturia x1 year, waking every hour during the night at times - Urinary urgency and occasional incontinence upon arriving home. - Occasional urinary leakage with coughing, laughing, or sneezing. - Denies use of pads, but occasionally changes underwear due to leakage. - Denies dysuria, hematuria, or history of UTIs. - No history of bladder or kidney surgery. - Takes Miralax with 8 oz of fluid at bedtime. - Minimal caffeine intake; occasionally drinks Coke and has switched to decaf coffee. Diverticulitis: - History of diverticulitis; was scheduled for bowel surgery in 2019. - Difficulty with bowel prep for colonoscopy, requiring three attempts for the last procedure in 2018 or 2020. Chronic Kidney Disease: - Diagnosed with stage 3 CKD; recent labs show stable kidney function. -creatinine 1.05 Hypertension: - Reports elevated blood pressure readings recently, attributed to headaches. - Previously on diuretics, discontinued by technical publications writer Dr. Strickland. Headaches: - Severe headaches, described as starting in the back and radiating to the front. - Currently taking Prednisone 4 mg daily for headache management. Obstetric History: - Three pregnancies, two live births, one miscarriage. - Both live births were vaginal deliveries. - Denies significant vaginal bulge. Genitourinary: (+) nocturia, (+) urgency, (+) stress incontinence, (+) dribbling, (-) dysuria, (-) hematuria SENSITIVE EXAMINATION CONSENT: The sensitive examination was discussed with the Patient or Patient's Authorized Label Sewer. As applicable, any other physician, advance practice provider, medical student, or other health professional student that will be observing or involved in the sensitive examination for educational or training purposes was discussed with the Patient or Authorized Label Sewer. The Patient or Authorized Label Sewer has agreed to proceed with the sensitive examination. Objective Height 152.4 cm (5'), weight 77.6 kg (171 lb). General: Alert & oriented, no acute distress Skin: Normal Respiratory: normal chest rise Abdomen: Soft, non-tender, non-distended, no masses palpable, no hepatosplenomegaly, normal bowel sounds Genitourinary: Stage 3 cystocele, weak pelvic floor muscles bilaterally MSK: Back is non-tender Extremities: No clubbing, cyanosis, or edema Latest Ref Rng 02/25/2025 GLUCOSE UA (POCT) Negative mg/dL Negative BILIRUBIN UA (POCT) Negative Negative KETONE UA (POCT) Negative mg/dL Negative SPECIFIC GRAVITY UA (POCT) 1.005 - 1.030 1.015 HEMOGLOBIN/BLOOD UA (POCT) Negative Negative PH UA (POCT) 4.5 - 8.0 7.5 PROTEIN UA (POCT) Negative mg/dL Negative UROBILINOGEN UA (POCT) Normal E.U./dL 0.2 NITRITE UA (POCT) Negative Negative LEUKOCYTES UA (POCT) Negative Small ! COLOR UA (POCT) Yellow CLARITY UA (POCT) Clear 1. Nocturia (R35.1) -stop fluids 3 hours prior to bed -start trospium 20 mg po prior to bed -PVR 0 cc 2. POP-Q stage 3 cystocele (N81.10) - Nocturia likely secondary to stage 3 cystocele observed during pelvic examination. Pelvic floor muscles noted to be weak. Educated on Kegel exercises to strengthen pelvic floor muscles. Initiated Trospium once daily in the evening to manage nocturia. Discussed potential use of a pessary to support the bladder; provided informational material. Follow-up in four weeks to assess efficacy of medication and discuss further management options if necessary. 3. Screening for genitourinary condition (Z13.89) - Pelvic examination performed to assess for prolapse and evaluate pelvic floor muscle strength. No evidence of urinary retention; bladder is empty. No signs of hydronephrosis, renal calculi, or obstructions on recent CT scan. 4. Stage 3 chronic kidney disease, unspecified whether stage 3a or 3b CKD (HCC) (N18.30) - CKD stage 3 remains stable with no progression noted. Recent laboratory results from December confirm stable renal function. No evidence of hydronephrosis, renal calculi, or obstructions on recent CT scan. 5. Nonintractable headache, unspecified chronicity pattern, unspecified headache type (R51.9) - Currently managed with Prednisone 4 mg daily. No imaging studies performed to date. Monitor for response to current treatment and consider further diagnostic evaluation if headaches persist. Mare Calderon APRN.CASH ACCOUNTING CLERK Follow up in 6 weeks for medication check Attestation Recording using [employer] software for draft documentation of the visit was discussed with the patient/authorized pharmaceutical specialty representative; all questions welcomed and answered. Patient/authorized pharmaceutical specialty representative agreed to proceed Bladder scan obtained 0 ml of urine documented in this encounter [facility] 02-25-2025 Note HNO ID: [id number] Author: CHARLEY SCHNEIDER LPN Service: ? Author Type: LICENSED NURSE Type: Progress Notes Filed: 02/25/2025 17:53 Note Text: Bladder scan obtained 0 ml of urine [facility] 02-21-2025 Note HNO ID: [id number] Author: PODELIZABETH DOZIER APRN.CASH ACCOUNTING CLERK Service: ? Author Type: Nurse Practitioner Type: Progress Notes Filed: 02/21/2025 13:31 Note Text: 02/21/2025 Patient presents with: Pain: Head, neck and right arm radiating to elbow x7 days SUBJECTIVE: This is a 74 year old that is here today for Above Complaints. ONSET: seven days LOCATION: posterior head into neck and right arm and over top of head DURATION: constant CHARACTERISTICS: sharp AGGRAVATING FEATURES: nothing ALLEVIATING FEATURES: tylenol, pain cream, heating pad Years ago cartons at worked dropped on her head Admits to a little dizziness when she first wakes up in the morning which doesn't last long Denies past surgery, vision changes, syncope, extremity numbness, tingling, weakness, slurred speech, or facial drooping. PAST MEDICAL HISTORY Diagnosis Date Contact dermatitis and other eczema Degenerative arthritis of knee 05/24/2011 Delayed gastric emptying 07/24/2012 Diabetes mellitus type II (HCC) 05/31/2024 Diarrhea Diverticulitis Diverticulosis of colon (without mention of hemorrhage) Diverticulosis Dysphagia, unspecified 08/29/2017 Elevated alkaline phosphatase level 07/12/2018 Essential hypertension, benign GERD (gastroesophageal reflux disease) Hyperlipidemia Hypokalemia 09/25/2012 Hyponatremia Hypothyroidism Impaired fasting glucose 11/19/2015 Inadequate pelvic muscles 01/17/2012 Lumbar disc disease with radiculopathy 09/01/2016 Lung nodule < 6cm on CT 10/15/2018 10/07/18: incidental 4.5 mm nodule RML thyrotoxicosis Nonrheumatic mitral (valve) insufficiency Obesity Other osteoporosis 12/21/2006 Pancreatitis Paroxysmal SVT (supraventricular tachycardia) (HCC) Personal history of colonic polyps Colon polyps POLYP STOMACH 07/13/2007 Stage 3a chronic kidney disease (HCC) Statin intolerance 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--surgery not needed (2015) Trigeminal neuralgia 10/11/2011 Trochanteric bursitis of left hip 07/24/2012 Unspecified hemorrhoids without mention of complication Hemorrhoids ALLERGIES Lipitor [Atorvastatin Calcium], Spironolactone, Aceon [Perindopril Erbumine], Codeine, and Lisinopril MEDICATIONS Current Outpatient Medications Medication Sig isosorbide mononitrate ER (IMDUR) 30 mg 24 hr tablet Take 1 tablet by mouth once daily. labetalol (TRANDATE) 200 mg tablet Take 1 tablet by mouth two times a day. losartan (COZAAR) 100 mg tablet Take 1 tablet by mouth once daily. gabapentin (NEURONTIN) 300 mg capsule Take 1 capsule by mouth daily at bedtime for 90 days. blood sugar diagnostic (BLOOD GLUCOSE TEST) test strip Test blood sugar(s) 1 times daily. Dx: Prediabetes Insulin: No Lancets Test blood sugar(s) 1 times daily. Dx: Prediabetes Insulin: No rosuvastatin (CRESTOR) 20 mg tablet Take 1 tablet by mouth daily at bedtime. diphenhydrAMINE (BENADRYL) 25 mg tablet Take 25 mg by mouth at bedtime as needed. OTC PRODUCT Take 1 tablet by mouth once daily. Prevagen alendronate (FOSAMAX) 70 mg tablet Take 1 tablet by mouth one time a week. In AM with cup of water on empty stomach. Nothing else by mouth and stay upright for 30 min. levothyroxine (SYNTHROID) 88 mcg tablet Take one tablet daily Monday-Monday and two tablets on Monday amLODIPine (NORVASC) 2.5 mg tablet Take one tablet daily in addition to 5 mg to equal 7.5 mg daily amLODIPine (NORVASC) 5 mg tablet Take 1 tablet by mouth once daily. pantoprazole DR (PROTONIX) 40 mg tablet Take 1 tablet by mouth once daily. potassium chloride ER (KLOR-CON) 20 mEq tablet Take 2 tablets by mouth two times a day. meclizine (ANTIVERT) 25 mg tab Take 1 tablet by mouth three times a day as needed (vertigo). polyethylene glycol 3350 17 gram/dose powder Take 17 g by mouth once daily. Dissolve dose in 4 - 8 ounces of liquid and take as directed. doxylamine succinate (SLEEP AID ORAL) Take by mouth daily at bedtime. calcium carbonate-Vit D3-minerals (CALTRATE) 600 mg calcium- 400 unit tab Take 2 tablets by mouth once daily. ondansetron orally disintegrating (ZOFRAN ODT) 4 mg disintegrating tablet Take 1 tablet by mouth every 6 hours as needed for Nausea/Vomiting. 0.9 % sodium chloride (NACL 0.9%) 0.9% solp Infuse 500 ml IV over [address] Biotin 2,500 mcg cap Take 1 capsule by mouth once daily. aspirin, enteric coated (ASPIRIN, ENTERIC COATED) 81 mg EC tablet Take 81 mg by mouth once daily. No current facility-administered medications for this visit. Medications and allergies reviewed by this provider. SOCIAL HISTORY Social History Tobacco Use Smoking status: Former Current packs/day: 0.10 Average packs/day: 0.1 packs/day for 1 year (0.1 ttl pk-yrs) Types: Cigarettes Smokeless tobacco: Never Tobacco comments: Smoked 1 year or less in 1980s. Spouse was smoker in home for 39 years. Father smoked in childhood home. Vaping Use Vapi (more content not included)... [facility] 02-21-2025 History of Present illness Narrative 02/21/2025 Patient presents with: Pain: Head, neck and right arm radiating to elbow x7 days SUBJECTIVE: This is a 74 year old that is here today for Above Complaints. ONSET: seven days LOCATION: posterior head into neck and right arm and over top of head DURATION: constant CHARACTERISTICS: sharp AGGRAVATING FEATURES: nothing ALLEVIATING FEATURES: tylenol, pain cream, heating pad Years ago cartons at worked dropped on her head Admits to a little dizziness when she first wakes up in the morning which doesn't last long Denies past surgery, vision changes, syncope, extremity numbness, tingling, weakness, slurred speech, or facial drooping. PAST MEDICAL HISTORY Diagnosis Date Contact dermatitis and other eczema Degenerative arthritis of knee 05/24/2011 Delayed gastric emptying 07/24/2012 Diabetes mellitus type II (HCC) 05/31/2024 Diarrhea Diverticulitis Diverticulosis of colon (without mention of hemorrhage) Diverticulosis Dysphagia, unspecified 08/29/2017 Elevated alkaline phosphatase level 07/12/2018 Essential hypertension, benign GERD (gastroesophageal reflux disease) Hyperlipidemia Hypokalemia 09/25/2012 Hyponatremia Hypothyroidism Impaired fasting glucose 11/19/2015 Inadequate pelvic muscles 01/17/2012 Lumbar disc disease with radiculopathy 09/01/2016 Lung nodule < 6cm on CT 10/15/2018 10/07/18: incidental 4.5 mm nodule RML thyrotoxicosis Nonrheumatic mitral (valve) insufficiency Obesity Other osteoporosis 12/21/2006 Pancreatitis Paroxysmal SVT (supraventricular tachycardia) ([facility]) Personal history of colonic polyps Colon polyps POLYP STOMACH 07/13/2007 Stage 3a chronic kidney disease (HCC) Statin intolerance 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 labetalol (TRANDATE) 200 mg tablet Take 1 tablet by mouth two times a day. losartan (COZAAR) 100 mg tablet Take 1 tablet by mouth once daily. gabapentin (NEURONTIN) 300 mg capsule Take 1 capsule by mouth daily at bedtime for 90 days. blood sugar diagnostic (BLOOD GLUCOSE TEST) test strip Test blood sugar(s) 1 times daily. Dx: Prediabetes Insulin: No Lancets Test blood sugar(s) 1 times daily. Dx: Prediabetes Insulin: No rosuvastatin (CRESTOR) 20 mg tablet Take 1 tablet by mouth daily at bedtime. diphenhydrAMINE (BENADRYL) 25 mg tablet Take 25 mg by mouth at bedtime as needed. OTC PRODUCT Take 1 tablet by mouth once daily. Prevagen alendronate (FOSAMAX) 70 mg tablet Take 1 tablet by mouth one time a week. In AM with cup of water on empty stomach. Nothing else by mouth and stay upright for 30 min. levothyroxine (SYNTHROID) 88 mcg tablet Take one tablet daily Monday-Monday and two tablets on Monday amLODIPine (NORVASC) 2.5 mg tablet Take one tablet daily in addition to 5 mg to equal 7.5 mg daily amLODIPine (NORVASC) 5 mg tablet Take 1 tablet by mouth once daily. pantoprazole DR (PROTONIX) 40 mg tablet Take 1 tablet by mouth once daily. potassium chloride ER (KLOR-CON) 20 mEq tablet Take 2 tablets by mouth two times a day. meclizine (ANTIVERT) 25 mg tab Take 1 tablet by mouth three times a day as needed (vertigo). polyethylene glycol 3350 17 gram/dose powder Take 17 g by mouth once daily. Dissolve dose in 4 - 8 ounces of liquid and take as directed. doxylamine succinate (SLEEP AID ORAL) Take by mouth daily at bedtime. calcium carbonate-Vit D3-minerals (CALTRATE) 600 mg calcium- 400 unit tab Take 2 tablets by mouth once daily. ondansetron orally disintegrating (ZOFRAN ODT) 4 mg disintegrating tablet Take 1 tablet by mouth every 6 hours as needed for Nausea/Vomiting. 0.9 % sodium chloride (NACL 0.9%) 0.9% solp Infuse 500 ml IV over [address] Biotin 2,500 mcg cap Take 1 capsule by mouth once daily. aspirin, enteric coated (ASPIRIN, ENTERIC COATED) 81 mg EC tablet Take 81 mg by mouth once daily. No current facility-administered medications for this visit. Medications and allergies reviewed by this provider. SOCIAL HISTORY Social History Tobacco Use Smoking status: Former Current packs/day: 0.10 Average packs/day: 0.1 packs/day for 1 year (0.1 ttl pk-yrs) Types: Cigarettes Smokeless tobacco: Never Tobacco comments: Smoked 1 year or less in 1980s. Spouse was smoker in home for 39 years. Father smoked in childhood home. Vaping Use Vaping status: Never Used Substance Use Topics Alcohol use: No Drug use: No REVIEW OF SYSTEMS All other reviewed and negative other than HPI. OBJECTIVE: BP 140/82 Pulse 62 Temp 36.3 C (97.4 F) Resp 18 Wt 78.8 kg (173 lb 12.8 oz) SpO2 97% BMI 33.94 kg/m . Vital signs reviewed by this provider. APPEARANCE Well appearing, alert, in no acute distress, well-hydrated, well nourished. EYES PERRLA, conjunctiva and sclera normal. EARS External ears normal, canals clear NECK Supple, no adenopathy; thyroid symmetric, normal size, no bruits HEART RRR with normal S1 and S2, no murmurs, no gallops, no JVD appreciated LUNG clear to auscultation. No wheezes, rhonchi or rales EXTREMITIES Extremities normal, No deformities, No skin discoloration, and No edema NEURO Awake, alert and oriented x 3, Cranial nerves II-XII grossly intact, Reflexes symmetrical, Normal gait, No involuntary motions., and negative findings: mental status intact, cranial nerves 2-12 intact, gait, including heel, toe, and tandem walking normal, Romberg negative, muscle tone normal, muscle strength normal, rapid alternating movements normal, finger to nose normal, sensation to light touch and pinprick normal, reflexes normal and symmetric, plantar response downgoing bilaterally SKIN Skin color, texture, turgor normal, no suspicious rashes or lesions to exposed skin Dilated Retinal Exam Never done Depression Screening Never done Anxiety Screening Never done BP Controlled (<130/80) due on 03/23/2022 Advance Directive Discussion Never done DTaP,Tdap,Td Vaccine(1 - Tdap) due on 12/27/2025 RSV Vaccine(1 - 1-dose 75+ series) due on 12/27/2025 Shingrix Vaccine(1 of 2) due on 12/27/2025 Covid-19 Vaccine() due on 12/27/2025 HbA1C due on 06/24/2025 Diabetic Foot Exam due on 06/26/2025 Urine Albumin:Creatinine Ratio due on 12/25/2025 Serum Creatinine due on 12/25/2025 LDL Cholesterol due on 12/31/2025 Hemoglobin/Hematocrit due on 01/10/2026 Annual PCP Team Chronic Disease Visit due on 02/21/2026 Bone Density Screening due on 07/22/2026 Influenza Vaccine Completed Hepatitis C Screening Completed Pneumococcal Vaccine: 50+ Completed Mammogram Screening Discontinued Colorectal Cancer Screening Discontinued ASSESSMENT/PLAN: 1. Cervical pain (neck) - ICD9: 723.1, ICD10: M54.2 (primary diagnosis) - no red flag symptoms or exam findings - red flag symptoms discussed, verbalizes understanding - recommend gentle stretches and heat for 15 minutes at a time - METHYLPREDNISOLONE 4 MG TABLETS IN A DOSE PACK- discussed not to take any NSAID products while taking this medication - if persists recommend PT, to ER with red flag symptoms 2. Headache, unspecified headache type - ICD9: 784.0, ICD10: R51.9 - possible related to neck pain - no red flag symptoms or exam findings - red flag symptoms discussed, verbalizes understanding - follow-up if persists to ER with red flag symptoms Elizabeth Og APRN.CASH ACCOUNTING CLERK Prescription instructions reviewed with patient as applicable. Patient advised if symptoms do not improve or if symptoms worsen sooner, to contact their primary care physician. Potential red flag symptoms discussed with the patient. Reviewed appropriate action plan to take if red flag symptoms occur. Patient agreeable to treatment plan. Medical Decision Making: Problems: Moderate: 1+ chronic illnesses with change Risk: Moderate: Drug management Medical Decision Making Level: 4 - Moderate documented in this encounter [facility] 02-21-2025 Telephone encounter Note Triage Protocol Advised: Go to ER. Patient declines advise. Requesting appt with provider today or will just go to Urgent Care. Understands risks in delaying immediate ER evaluation. Appt made with provider for this morning. Pt advised not to drive self. Pt aware she may be advised to proceed to ER during OV today. Reason for Disposition [1] SEVERE headache (e.g., excruciating) AND [2] worst headache of life Answer Assessment - Initial Assessment Questions Patient calling to make same day appt with provider for evaluation of 10/10 posterior headache. Reports headache and neck pain began about 1 week ago, getting worse. Radiates into right shoulder and into her right elbow. Reports elbow discomfort. Does not radiate past elbow. States she has cervical issues and has had these sx's before. She states she will not go to the ER for evaluation at this time. States when she got up this morning she felt a little dizzy, a little drunk but that subsided fully after getting up and moving around. Reports this morning her BP was 154/86 before taking medication. BP yesterday was 137/70. Blood sugar this morning 104. Reports sleeps with heating pad around her neck. Ibuprofen and tylenol does not help at all. Symptoms: -post neck pain -10/10 posterior headache -pain radiates into right shoulder and right elbow -no current dizziness -no chest pain -no SOB -no vision changes -no nausea or sweats -no stiff neck -no eye pain -no fever -no numbness in face or one side of the body -no changes in neck or arm ROM 1. LOCATION: as above 2. ONSET: see above 3. PATTERN: constant, worsening 4. SEVERITY: severe 5. RECURRENT SYMPTOM: reports, yes, has had this before 6. CAUSE: see above 7. MIGRAINE:does not think this is what it is 8. HEAD INJURY:denies recent injury, reports head injury years ago at work 9. OTHER SYMPTOMS: see above Protocols used: [id number] [facility] 02-21-2025 Miscellaneous Notes Triage Protocol Advised: Go to ER. Patient declines advise. Requesting appt with provider today or will just go to Urgent Care. Understands risks in delaying immediate ER evaluation. Appt made with provider for this morning. Pt advised not to drive self. Pt aware she may be advised to proceed to ER during OV today. Reason for Disposition [1] SEVERE headache (e.g., excruciating) AND [2] worst headache of life Answer Assessment - Initial Assessment Questions Patient calling to make same day appt with provider for evaluation of 10 posterior headache. Reports headache and neck pain began about 1 week ago, getting worse. Radiates into right shoulder and into her right elbow. Reports elbow discomfort. Does not radiate past elbow. States she has cervical issues and has had these sx's before. She states she will not go to the ER for evaluation at this time. States when she got up this morning she felt a little dizzy, a little drunk but that subsided fully after getting up and moving around. Reports this morning her BP was 154/86 before taking medication. BP yesterday was 137/70. Blood sugar this morning 104. Reports sleeps with heating pad around her neck. Ibuprofen and tylenol does not help at all. Symptoms: -post neck pain -08/15 posterior headache -pain radiates into right shoulder and right elbow -no current dizziness -no chest pain -no SOB -no vision changes -no nausea or sweats -no stiff neck -no eye pain -no fever -no numbness in face or one side of the body -no changes in neck or arm ROM 1. LOCATION: as above 2. ONSET: see above 3. PATTERN: constant, worsening 4. SEVERITY: severe 5. RECURRENT SYMPTOM: reports, yes, has had this before 6. CAUSE: see above 7. MIGRAINE:does not think this is what it is 8. HEAD INJURY:denies recent injury, reports head injury years ago at work 9. OTHER SYMPTOMS: see above Protocols used: [id number] documented in this encounter [facility] 02-03-2025 Telephone encounter Note Phoned pt, notified of the same. Reviewed med list with pt. It shows she is due for labetalol 200mg; losartan 100mg; isosorbid monitrate 30mg. Rx(s) pending. Otoniel Mas LPN [facility] 02-03-2025 Miscellaneous Notes Phoned pt, notified of the same. Reviewed med list with pt. It shows she is due for labetalol 200mg; losartan 100mg; isosorbid monitrate 30mg. Rx(s) pending. Otoniel Mas LPN Prescription Refill Information The patient has been identified by name and date of : Yes Caregiver verified no other encounters exist for this prescription request: Yes Caregiver confirmed with patient/requestor that no other refills are due, in the near future, with this provider at this time: Yes The last office visit in the department: 01-07-25 Does the patient have a future office visit with this provider/department: Yes Requested Prescriptions Pending Prescriptions Disp Refills levothyroxine (SYNTHROID) 88 mcg tablet 90 tablet 3 Sig: Take one tablet daily Monday-Monday and two tablets on Monday potassium chloride ER (KLOR-CON) 20 mEq tablet 360 tablet 3 Sig: Take 2 tablets by mouth two times a day. Aaliyah Vidal February 03, 2025 11:45 AM documented in this encounter [facility] 02-03-2025 Telephone encounter Note Prescription Refill Information The patient has been identified by name and date of : Yes Caregiver verified no other encounters exist for this prescription request: Yes Caregiver confirmed with patient/requestor that no other refills are due, in the near future, with this provider at this time: Yes The last office visit in the department: 01-07-25 Does the patient have a future office visit with this provider/department: Yes Requested Prescriptions Pending Prescriptions Disp Refills levothyroxine (SYNTHROID) 88 mcg tablet 90 tablet 3 Sig: Take one tablet daily Monday-Monday and two tablets on Monday potassium chloride ER (KLOR-CON) 20 mEq tablet 360 tablet 3 Sig: Take 2 tablets by mouth two times a day. Aaliyah Vidal February 03, 2025 11:45 AM [facility] 01-21-2025 History of Present illness Narrative Radiology Service Progress Note DATE OF SERVICE: January 21, 2025 TIME: 3:51 PM PATIENT IDENTITY VERIFICATION COMPLETED USING TWO (2) STANDARD IDENTIFIERS: Name and Date of confirmed by patient verbally. FALL SCREENING: Has the patient had 2 falls in the last year or 1 fall with injury or currently using an Ambulatory Assistive Device (Walker, Cane, Wheelchair, Crutches, etc.)? No PATIENT GENDER DATA: Assigned female at . status: : No status: NO. PATIENT RELEVANT IMPLANT DATA REVIEWED: Yes PATIENT PRESENTS WITH AN IMPLANTABLE OR ATTACHED RAIL TRACK MAINTAINER: No ALLERGIES: Reviewed and unchanged CONTRAST ALLERGY: NO. EXAM: CT -CONTRAST INDUCED NEPHROPATHY RISK FACTORS: Patient age > 60 years CREATININE: Creatinine Date Value Ref Range Status 12/25/2024 1.05 (H) 0.58 - 0.96 mg/dL Final 05/29/2024 1.08 (H) 0.58 - 0.96 mg/dL Final 05/16/2024 0.97 (H) 0.58 - 0.96 mg/dL Final Estimated Glomerular Filtration Rate Date Value Ref Range Status 12/25/2024 55 (L) >=60 mL/min/1.73m Final Comment: Estimated Glomerular Filtration Rate (eGFR) is calculated using the 2020 CKD-EPI creatinine equation. This equation utilizes serum creatinine, sex, and age as parameters. The creatinine assay has traceable calibration to isotope dilution-mass spectrometry. Refer to KDIGO guidelines for clinical interpretation. In patients with unstable renal function, e.g. those with acute kidney injury, the eGFR may not accurately reflect actual GFR. eGFR- Date Value Ref Range Status 10/22/2021 >60 Final P.O.C.T. RESULTS: POC done: Yes, See Lab Tab January 21, 2025 TREATMENT: N/A PERIPHERAL IV DATA: Ambulatory: A peripheral IV was started in the Left antecubital site with a Angio cath: 22 gauge. RADIOLOGY DEPARTMENT: CT; Exam(s) Completed: Abdomen/Pelvis SIGNATURE: RT Filippo(Andre) PATIENT NAME: Tashia Fernandez DATE: January 21, 2025 TIME: 3:51 PM documented in this encounter [facility] 01-21-2025 Note HNO ID: [id number] Author: KHANG IGLESIAS RT(R) Service: ? Author Type: Boat Dock Operator Type: Progress Notes Filed: 01/21/2025 15:51 Note Text: Radiology Service Progress Note DATE OF SERVICE: January 21, 2025 TIME: 3:51 PM PATIENT IDENTITY VERIFICATION COMPLETED USING TWO (2) STANDARD IDENTIFIERS: Name and Date of confirmed by patient verbally. FALL SCREENING: Has the patient had 2 falls in the last year or 1 fall with injury or currently using an Ambulatory Assistive Device (Walker, Cane, Wheelchair, Crutches, etc.)? No PATIENT GENDER DATA: Assigned female at . status: : No status: NO. PATIENT RELEVANT IMPLANT DATA REVIEWED: Yes PATIENT PRESENTS WITH AN IMPLANTABLE OR ATTACHED RAIL TRACK MAINTAINER: No ALLERGIES: Reviewed and unchanged CONTRAST ALLERGY: NO. EXAM: CT -CONTRAST INDUCED NEPHROPATHY RISK FACTORS: Patient age > 60 years CREATININE: Creatinine Date Value Ref Range Status 12/25/2024 1.05 (H) 0.58 - 0.96 mg/dL Final 05/29/2024 1.08 (H) 0.58 - 0.96 mg/dL Final 05/16/2024 0.97 (H) 0.58 - 0.96 mg/dL Final Estimated Glomerular Filtration Rate Date Value Ref Range Status 12/25/2024 55 (L) >=60 mL/min/1.73m? Final Comment: Estimated Glomerular Filtration Rate (eGFR) is calculated using the 2020 CKD-EPI creatinine equation. This equation utilizes serum creatinine, sex, and age as parameters. The creatinine assay has traceable calibration to isotope dilution-mass spectrometry. Refer to KDIGO guidelines for clinical interpretation. In patients with unstable renal function, e.g. those with acute kidney injury, the eGFR may not accurately reflect actual GFR. eGFR- Date Value Ref Range Status 10/22/2021 >60 Final P.O.C.T. RESULTS: POC done: Yes, See Lab Tab January 21, 2025 TREATMENT: N/A PERIPHERAL IV DATA: Ambulatory: A peripheral IV was started in the Left antecubital site with a Angio cath: 22 gauge. RADIOLOGY DEPARTMENT: CT; Exam(s) Completed: Abdomen/Pelvis SIGNATURE: RT Filippo(R) PATIENT NAME: Tashia Fernandez DATE: January 21, 2025 TIME: 3:51 PM [facility] 01-10-2025 Telephone encounter Note Patient notified of results, verbalizes understanding of instructions. Ana Serrato LPN [facility] 01-10-2025 Miscellaneous Notes Patient notified of results, verbalizes understanding of instructions. Ana Serrato LPN ----- Message from Elizabeth Og APRN.CASH ACCOUNTING CLERK sent at 01/10/2025 1:32 PM EST ----- CBC with diff is normal. Elizabeth Og APRN.CASH ACCOUNTING CLERK documented in this encounter [facility] 01-10-2025 Telephone encounter Note ----- Message from Elizabeth Og APRN.CASH ACCOUNTING CLERK sent at 01/10/2025 1:32 PM EST ----- CBC with diff is normal. Elizabeth Og APRN.CASH ACCOUNTING CLERK [facility] 01-08-2025 Telephone encounter Note Patient calls in and provider message reviewed with verbalized understanding. Sandy Ruff, RN [facility] 01-08-2025 Miscellaneous Notes Patient calls in and provider message reviewed with verbalized understanding. Sandy Ruff, RN Telephone call placed to patient. Message left to call office back for update. Vangie Gonzalez LPN Patient needs to have CBC with diff completed. I thought she had just completed one but she hasn't. Order placed Elizabeth Og APRN.CNP documented in this encounter [facility] 01-07-2025 Telephone encounter Note Telephone call placed to patient. Message left to call office back for update. Vangie Gonzalez LPN [facility] 01-07-2025 Telephone encounter Note Patient needs to have CBC with diff completed. I thought she had just completed one but she hasn't. Order placed Elizabeth Og APRN.CNP [facility] 01-07-2025 Note HNO ID: [id number] Author: ELIZABETH OG APRN.CNP Service: ? Author Type: Nurse Practitioner Type: Progress Notes Filed: 01/07/2025 14:38 Note Text: 01/07/2025 Patient presents with: Abdominal Pain: Lower abdominal pain and increased urination at night. Lower back pain as well. SUBJECTIVE: This is a 74 year old that is here today for Above Complaints. For awhile has had lower abdominal pain. Described as sharp. Pain is intermittent Can be aggravated by eating but not all the time.Urinating a lot at night but recent urine culture was normal. She believes she has infection due to her stools are yellow. Admits to diarrhea and constipation at times. Last BM this AM was her normal consistency. Reports years ago she was supposed to have part of her intestines removed due to diverticulitis but surgery was not able to be completed due to she was unable to get cleaned out all the way. Denies weight loss, fevers, chills, nausea, vomiting, melana, hematochezia, dysuria or hematuria PAST MEDICAL HISTORY Diagnosis Date Contact dermatitis and other eczema Degenerative arthritis of knee 05/24/2011 Delayed gastric emptying 07/24/2012 Diabetes mellitus type II (HCC) 05/31/2024 Diarrhea Diverticulitis Diverticulosis of colon (without mention of hemorrhage) Diverticulosis Dysphagia, unspecified 08/29/2017 Elevated alkaline phosphatase level 07/12/2018 Essential hypertension, benign GERD (gastroesophageal reflux disease) Hyperlipidemia Hypokalemia 09/25/2012 Hyponatremia Hypothyroidism Impaired fasting glucose 11/19/2015 Inadequate pelvic muscles 01/17/2012 Lumbar disc disease with radiculopathy 09/01/2016 Lung nodule < 6cm on CT 10/15/2018 10/07/18: incidental 4.5 mm nodule RML thyrotoxicosis Nonrheumatic mitral (valve) insufficiency Obesity Other osteoporosis 12/21/2006 Pancreatitis Paroxysmal SVT (supraventricular tachycardia) ([facility]) Personal history of colonic polyps Colon polyps POLYP STOMACH 07/13/2007 Stage 3a chronic kidney disease ([facility]) Statin intolerance 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--surgery not needed (2015) Trigeminal neuralgia 10/11/2011 Trochanteric bursitis of left hip 07/24/2012 Unspecified hemorrhoids without mention of complication Hemorrhoids ALLERGIES Lipitor [Atorvastatin Calcium], Spironolactone, Aceon [Perindopril Erbumine], Codeine, and Lisinopril MEDICATIONS Current Outpatient Medications Medication Sig rosuvastatin (CRESTOR) 20 mg tablet Take 1 tablet by mouth daily at bedtime. diphenhydrAMINE (BENADRYL) 25 mg tablet Take 25 mg by mouth at bedtime as needed. OTC PRODUCT Take 1 tablet by mouth once daily. Prevagen alendronate (FOSAMAX) 70 mg tablet Take 1 tablet by mouth one time a week. In AM with cup of water on empty stomach. Nothing else by mouth and stay upright for 30 min. gabapentin (NEURONTIN) 300 mg capsule Take 1 capsule by mouth daily at bedtime for 90 days. levothyroxine (SYNTHROID) 88 mcg tablet Take one tablet daily Monday-Monday and two tablets on Monday amLODIPine (NORVASC) 2.5 mg tablet Take one tablet daily in addition to 5 mg to equal 7.5 mg daily amLODIPine (NORVASC) 5 mg tablet Take 1 tablet by mouth once daily. pantoprazole DR (PROTONIX) 40 mg tablet Take 1 tablet by mouth once daily. labetalol (TRANDATE) 200 mg tablet Take 1 tablet by mouth two times a day. isosorbide mononitrate ER (IMDUR) 30 mg 24 hr tablet Take 1 tablet by mouth once daily. potassium chloride ER (KLOR-CON) 20 mEq tablet Take 2 tablets by mouth two times a day. meclizine (ANTIVERT) 25 mg tab Take 1 tablet by mouth three times a day as needed (vertigo). blood sugar diagnostic (BLOOD GLUCOSE TEST) test strip Test blood sugar(s) 1 times daily. Dx: Prediabetes Insulin: No Lancets lancets Test blood sugar(s) 1 times daily. Dx: Prediabetes Insulin: No losartan (COZAAR) 100 mg tablet Take 1 tablet by mouth once daily. polyethylene glycol 3350 17 gram/dose powder Take 17 g by mouth once daily. Dissolve dose in 4 - 8 ounces of liquid and take as directed. doxylamine succinate (SLEEP AID ORAL) Take by mouth daily at bedtime. calcium carbonate-Vit D3-minerals (CALTRATE) 600 mg calcium- 400 unit tab Take 2 tablets by mouth once daily. ondansetron orally disintegrating (ZOFRAN ODT) 4 mg disintegrating tablet Take 1 tablet by mouth every 6 hours as needed for Nausea/Vomiting. 0.9 % sodium chloride (NACL 0.9%) 0.9% solp Infuse 500 ml IV over [address] Biotin 2,500 mcg cap Take 1 capsule by mouth once daily. aspirin, enteric coated (ASPIRIN, ENTERIC COATED) 81 mg EC tablet Take 81 mg by mouth once daily. No current facility-administered medications for this visit. Medications and allergies reviewed by this provider. SOCIAL HISTORY Social History Tobacco Use Smoking status: Former Current packs/day: 0.10 Average packs/day: 0.1 packs/day for 1 year (0.1 ttl pk- (more content not included)... [facility] 01-07-2025 History of Present illness Narrative 01/07/2025 Patient presents with: Abdominal Pain: Lower abdominal pain and increased urination at night. Lower back pain as well. SUBJECTIVE: This is a 74 year old that is here today for Above Complaints. For awhile has had lower abdominal pain. Described as sharp. Pain is intermittent Can be aggravated by eating but not all the time.Urinating a lot at night but recent urine culture was normal. She believes she has infection due to her stools are yellow. Admits to diarrhea and constipation at times. Last BM this AM was her normal consistency. Reports years ago she was supposed to have part of her intestines removed due to diverticulitis but surgery was not able to be completed due to she was unable to get cleaned out all the way. Denies weight loss, fevers, chills, nausea, vomiting, melana, hematochezia, dysuria or hematuria PAST MEDICAL HISTORY Diagnosis Date Contact dermatitis and other eczema Degenerative arthritis of knee 05/24/2011 Delayed gastric emptying 07/24/2012 Diabetes mellitus type II (HCC) 05/31/2024 Diarrhea Diverticulitis Diverticulosis of colon (without mention of hemorrhage) Diverticulosis Dysphagia, unspecified 08/29/2017 Elevated alkaline phosphatase level 07/12/2018 Essential hypertension, benign GERD (gastroesophageal reflux disease) Hyperlipidemia Hypokalemia 09/25/2012 Hyponatremia Hypothyroidism Impaired fasting glucose 11/19/2015 Inadequate pelvic muscles 01/17/2012 Lumbar disc disease with radiculopathy 09/01/2016 Lung nodule < 6cm on CT 10/15/2018 10/07/18: incidental 4.5 mm nodule RML thyrotoxicosis Nonrheumatic mitral (valve) insufficiency Obesity Other osteoporosis 12/21/2006 Pancreatitis Paroxysmal SVT (supraventricular tachycardia) ([facility]) Personal history of colonic polyps Colon polyps POLYP STOMACH 07/13/2007 Stage 3a chronic kidney disease ([facility]) Statin intolerance 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--surgery not needed (2015) Trigeminal neuralgia 10/11/2011 Trochanteric bursitis of left hip 07/24/2012 Unspecified hemorrhoids without mention of complication Hemorrhoids ALLERGIES Lipitor [Atorvastatin Calcium], Spironolactone, Aceon [Perindopril Erbumine], Codeine, and Lisinopril MEDICATIONS Current Outpatient Medications Medication Sig rosuvastatin (CRESTOR) 20 mg tablet Take 1 tablet by mouth daily at bedtime. diphenhydrAMINE (BENADRYL) 25 mg tablet Take 25 mg by mouth at bedtime as needed. OTC PRODUCT Take 1 tablet by mouth once daily. Prevagen alendronate (FOSAMAX) 70 mg tablet Take 1 tablet by mouth one time a week. In AM with cup of water on empty stomach. Nothing else by mouth and stay upright for 30 min. gabapentin (NEURONTIN) 300 mg capsule Take 1 capsule by mouth daily at bedtime for 90 days. levothyroxine (SYNTHROID) 88 mcg tablet Take one tablet daily Monday-Monday and two tablets on Monday amLODIPine (NORVASC) 2.5 mg tablet Take one tablet daily in addition to 5 mg to equal 7.5 mg daily amLODIPine (NORVASC) 5 mg tablet Take 1 tablet by mouth once daily. pantoprazole DR (PROTONIX) 40 mg tablet Take 1 tablet by mouth once daily. labetalol (TRANDATE) 200 mg tablet Take 1 tablet by mouth two times a day. isosorbide mononitrate ER (IMDUR) 30 mg 24 hr tablet Take 1 tablet by mouth once daily. potassium chloride ER (KLOR-CON) 20 mEq tablet Take 2 tablets by mouth two times a day. meclizine (ANTIVERT) 25 mg tab Take 1 tablet by mouth three times a day as needed (vertigo). blood sugar diagnostic (BLOOD GLUCOSE TEST) test strip Test blood sugar(s) 1 times daily. Dx: Prediabetes Insulin: No Lancets lancets Test blood sugar(s) 1 times daily. Dx: Prediabetes Insulin: No losartan (COZAAR) 100 mg tablet Take 1 tablet by mouth once daily. polyethylene glycol 3350 17 gram/dose powder Take 17 g by mouth once daily. Dissolve dose in 4 - 8 ounces of liquid and take as directed. doxylamine succinate (SLEEP AID ORAL) Take by mouth daily at bedtime. calcium carbonate-Vit D3-minerals (CALTRATE) 600 mg calcium- 400 unit tab Take 2 tablets by mouth once daily. ondansetron orally disintegrating (ZOFRAN ODT) 4 mg disintegrating tablet Take 1 tablet by mouth every 6 hours as needed for Nausea/Vomiting. 0.9 % sodium chloride (NACL 0.9%) 0.9% solp Infuse 500 ml IV over [address] Biotin 2,500 mcg cap Take 1 capsule by mouth once daily. aspirin, enteric coated (ASPIRIN, ENTERIC COATED) 81 mg EC tablet Take 81 mg by mouth once daily. No current facility-administered medications for this visit. Medications and allergies reviewed by this provider. SOCIAL HISTORY Social History Tobacco Use Smoking status: Former Current packs/day: 0.10 Average packs/day: 0.1 packs/day for 1 year (0.1 ttl pk-yrs) Types: Cigarettes Smokeless tobacco: Never Tobacco comments: Smoked 1 year or less in 1980s. Spouse was smoker in home for 39 years. Father smoked in childhood home. Vaping Use Vaping status: Never Used Substance Use Topics Alcohol use: No Drug use: No REVIEW OF SYSTEMS All other reviewed and negative other than HPI. OBJECTIVE: BP 144/74 Pulse 72 Resp 18 Wt 79.3 kg (174 lb 12.8 oz) SpO2 96% BMI 34.14 kg/m . Vital signs reviewed by this provider. APPEARANCE Well appearing, alert, in no acute distress, well-hydrated, well nourished. EYES PERRLA, conjunctiva and sclera normal. HEART RRR with normal S1 and S2, no murmurs, no gallops, no JVD appreciated LUNG clear to auscultation ABDOMEN Bowel sounds WNL. Soft to touch. Mid TTP to round umbilicus and LLQ. No rebound tenderness or guarding EXTREMITIES Extremities normal, No deformities, No skin discoloration, and No edema SKIN Skin color, texture, turgor normal, no suspicious rashes or lesions to exposed skin Dilated Retinal Exam Never done Depression Screening Never done Anxiety Screening Never done Advance Directive Discussion Never done DTaP,Tdap,Td Vaccine(1 - Tdap) due on 12/27/2025 RSV Vaccine(1 - 1-dose 75+ series) due on 12/27/2025 Shingrix Vaccine(1 of 2) due on 12/27/2025 Covid-19 Vaccine( season) due on 12/27/2025 Hemoglobin/Hematocrit due on 05/29/2025 HbA1C due on 06/24/2025 Diabetic Foot Exam due on 06/26/2025 Urine Albumin:Creatinine Ratio due on 12/25/2025 Serum Creatinine due on 12/25/2025 Annual PCP Team Chronic Disease Visit due on 12/27/2025 BP Controlled (<130/80) due on 12/27/2025 LDL Cholesterol due on 12/31/2025 Bone Density Screening due on 07/22/2026 Influenza Vaccine Completed Hepatitis C Screening Completed Pneumococcal Vaccine: 50+ Completed Mammogram Screening Discontinued Colorectal Cancer Screening Discontinued ASSESSMENT/PLAN: 1. Periumbilical abdominal pain - ICD9: 789.05, ICD10: R10.33 (primary diagnosis) - consider diverticulitis - no red flag symptoms or exam findings - red flag symptoms discussed, verbalizes understanding - CT ABD/PEL W IVCON - IV CONTRAST (RADIOLOGY PROCEDURE) - NOT ON MAR - ENTERIC CONTRAST (RADIOLOGY PROCEDURE) - NOT ON MAR - COMPLETE BLOOD COUNT AND DIFFERENTIAL - recommend bland diet - follow-up pending CT to ER with red flag symptoms 2. LLQ pain - ICD9: 789.04, ICD10: R10.32 - plan as in #1 - IV CONTRAST (RADIOLOGY PROCEDURE) - NOT ON MAR - ENTERIC CONTRAST (RADIOLOGY PROCEDURE) - NOT ON MAR - COMPLETE BLOOD COUNT AND DIFFERENTIAL Elizabeth Og APRN.CASH ACCOUNTING CLERK Prescription instructions reviewed with patient as applicable. Patient advised if symptoms do not improve or if symptoms worsen sooner, to contact their primary care physician. Potential red flag symptoms discussed with the patient. Reviewed appropriate action plan to take if red flag symptoms occur. Patient agreeable to treatment plan. Medical Decision Making: Problems: Moderate: New problem with uncertain prognosis Data: Unique test(s) ordered: 2 Risk: Moderate: Moderate risk from testing/treatment Medical Decision Making Level: 4 - Moderate documented in this encounter [facility] 01-06-2025 Telephone encounter Note Patient has been identified by name and date of : Yes, Provider Dr. Starr Date 01/06/25 Time 11:37am Patient phones for refill(s): Requested Prescriptions Pending Prescriptions Disp Refills gabapentin (NEURONTIN) 300 mg capsule 90 capsule 0 Sig: Take 1 capsule by mouth daily at bedtime for 90 days. blood sugar diagnostic (BLOOD GLUCOSE TEST) test strip 50 Strip 11 Sig: Test blood sugar(s) 1 times daily. Dx: Prediabetes Insulin: No Lancets 100 Each 11 Sig: Test blood sugar(s) 1 times daily. Dx: Prediabetes Insulin: No Refused Prescriptions Disp Refills gabapentin (NEURONTIN) 300 mg capsule 90 capsule 0 Sig: Take 1 capsule by mouth daily at bedtime for 90 days. Refused By: ELISA STARR Reason for Refusal: A Refill not appropriate Date of last office visit in primary care: 12/27/2024 Date of next office visit in primary care: 01/01/2025 Please advise. Thank you. Cristine Pedro. [facility] 01-06-2025 Miscellaneous Notes Patient has been identified by name and date of : Yes, Provider Dr. Starr Date 01/06/25 Time 11:37am Patient phones for refill(s): Requested Prescriptions Pending Prescriptions Disp Refills gabapentin (NEURONTIN) 300 mg capsule 90 capsule 0 Sig: Take 1 capsule by mouth daily at bedtime for 90 days. blood sugar diagnostic (BLOOD GLUCOSE TEST) test strip 50 Strip 11 Sig: Test blood sugar(s) 1 times daily. Dx: Prediabetes Insulin: No Lancets 100 Each 11 Sig: Test blood sugar(s) 1 times daily. Dx: Prediabetes Insulin: No Refused Prescriptions Disp Refills gabapentin (NEURONTIN) 300 mg capsule 90 capsule 0 Sig: Take 1 capsule by mouth daily at bedtime for 90 days. Refused By: ELISA STARR Reason for Refusal: A Refill not appropriate Date of last office visit in primary care: 12/27/2024 Date of next office visit in primary care: 01/01/2025 Please advise. Thank you. Cristine Pedro. PDMP website checked and validated. All prescriptions have been APPROPRIATELY filled. No suspicious activity was identified. 12/27/2024 by Elisa Starr MD Not due for refill until 1 month from now. Prescription Refill Information The patient has been identified by name and date of : Yes Caregiver verified no other encounters exist for this prescription request: Yes Caregiver confirmed with patient/requestor that no other refills are due, in the near future, with this provider at this time: Yes The last office visit in the department: 12/27/24 Does the patient have a future office visit with this provider/department: Yes Requested Prescriptions Pending Prescriptions Disp Refills gabapentin (NEURONTIN) 300 mg capsule 90 capsule 0 Sig: Take 1 capsule by mouth daily at bedtime for 90 days. Mis Hylton LPN December 27, 2024 10:21 AM documented in this encounter [facility] 01-03-2025 Telephone encounter Note Pt notified. Gia Wilson LPN [facility] 01-03-2025 Miscellaneous Notes Pt notified. Gia Wilson LPN Rx sent for Crestor. Will recheck labs at future OV. Call with any side effects. Spoke with pt and information listed below given. Pt verbalizes understanding. Pt agrees and will need to be sent [facility] for a 3 month supply. Gia Wilson LPN Left a message for pt to call the office and ask to speak to a nurse. Gia Wilson LPN ----- Message from Elisa Starr MD sent at 01/01/2025 7:05 AM EST ----- Cholesterol unchanged from 1 year ago. Based on age and risk factors, patient is highrisk for heart attack or stroke in the next 10 years. Recommend high intensity statin daily and recheck labs in 3 months. Most common side effect: muscle aches. If agreeable, will send rx to requested pharmacy. The 10-year ASCVD risk score (Jair GALVAN, et al., 2019) is: 37.8% Values used to calculate the score: Age: 74 years Sex: Female Is Non- : No Diabetic: Yes Tobacco smoker: No Systolic Blood Pressure: 124 mmHg Is BP treated: Yes HDL Cholesterol: 50 mg/dL Total Cholesterol: 172 mg/dL documented in this encounter [facility] 01-03-2025 Telephone encounter Note Rx sent for Crestor. Will recheck labs at future OV. Call with any side effects. [facility] 01-03-2025 Telephone encounter Note Patient notified with results. Patient verbalizes understanding. Gia Wilson LPN [facility] 01-03-2025 Miscellaneous Notes Patient notified with results. Patient verbalizes understanding. Gia Wilson LPN ----- Message from Elisa Starr MD sent at 01/03/2025 7:11 AM EST ----- Urine culture is negative for infection. documented in this encounter [facility] 01-03-2025 Telephone encounter Note ----- Message from Elisa Starr MD sent at 01/03/2025 7:11 AM EST ----- Urine culture is negative for infection. [facility] 01-01-2025 Telephone encounter Note Spoke with pt and information listed below given. Pt verbalizes understanding. Pt agrees and will need to be sent [facility] for a 3 month supply. Gia Wilson LPN [facility] 01-01-2025 Telephone encounter Note Left a message for pt to call the office and ask to speak to a nurse. Gia Wilson LPN [facility] 01-01-2025 Telephone encounter Note ----- Message from Elisa Starr MD sent at 01/01/2025 7:05 AM EST ----- Cholesterol unchanged from 1 year ago. Based on age and risk factors, patient is highrisk for heart attack or stroke in the next 10 years. Recommend high intensity statin daily and recheck labs in 3 months. Most common side effect: muscle aches. If agreeable, will send rx to requested pharmacy. The 10-year ASCVD risk score (Jair DK, et al., 2019) is: 37.8% Values used to calculate the score: Age: 74 years Sex: Female Is Non- : No Diabetic: Yes Tobacco smoker: No Systolic Blood Pressure: 124 mmHg Is BP treated: Yes HDL Cholesterol: 50 mg/dL Total Cholesterol: 172 mg/dL [facility] 01-01-2025 Telephone encounter Note Pt called and is notified of providers message and instructions. Pt voices understanding. Anusha Frey RN [facility] 01-01-2025 Miscellaneous Notes Pt called and is notified of providers message and instructions. Pt voices understanding. Anusha Frey RN Received following message about patient's urine culture: Please recollect and place a new order for URCUL, if clinically indicated. The specimen was inadvertently collected incorrectly. Thank you. If any questions, please contact Laboratory Customer Services. Please notify patient she needs to come in to have the re-done. documented in this encounter [facility] 01-01-2025 Telephone encounter Note Received following message about patient's urine culture: Please recollect and place a new order for URCUL, if clinically indicated. The specimen was inadvertently collected incorrectly. Thank you. If any questions, please contact Laboratory Customer Services. Please notify patient she needs to come in to have the re-done. [facility] 12-31-2024 Telephone encounter Note Contacted patient and she reported she will come in today as she is currently fasting. Mis Hylton LPN [facility] 12-31-2024 Miscellaneous Notes Contacted patient and she reported she will come in today as she is currently fasting. Mis Hylton LPN Contacted lab client services regarding urine and was advised patient would need to provide a new sample for hodgson top tube. Mis Hylton LPN Urine studies show possible infection vs contamination. Recommend she come in today for urine culture unless lab can add it on with urine drawn. Additional studies for low sodium show that patient may not actually have low sodium, and could be caused by high cholesterol. Last cholesterol check was about a year ago. Recommend repeating cholesterol level this week when fasting. documented in this encounter [facility] 12-30-2024 Telephone encounter Note Contacted lab client services regarding urine and was advised patient would need to provide a new sample for hodgson top tube. Mis Hylton LPN [facility] 12-30-2024 Telephone encounter Note Urine studies show possible infection vs contamination. Recommend she come in today for urine culture unless lab can add it on with urine drawn. Additional studies for low sodium show that patient may not actually have low sodium, and could be caused by high cholesterol. Last cholesterol check was about a year ago. Recommend repeating cholesterol level this week when fasting. [facility] 12-27-2024 Telephone encounter Note PDMP website checked and validated. All prescriptions have been APPROPRIATELY filled. No suspicious activity was identified. 12/27/2024 by Elisa Starr MD Not due for refill until 1 month from now. [facility] 12-27-2024 Telephone encounter Note Prescription Refill Information The patient has been identified by name and date of : Yes Caregiver verified no other encounters exist for this prescription request: Yes Caregiver confirmed with patient/requestor that no other refills are due, in the near future, with this provider at this time: Yes The last office visit in the department: 12/27/24 Does the patient have a future office visit with this provider/department: Yes Requested Prescriptions Pending Prescriptions Disp Refills gabapentin (NEURONTIN) 300 mg capsule 90 capsule 0 Sig: Take 1 capsule by mouth daily at bedtime for 90 days. Mis Hylton LPN December 27, 2024 10:21 AM [facility] 12-27-2024 Note HNO ID: [id number] Author: ELISA STARR MD Service: ? Author Type: Physician Type: Progress Notes Filed: 01/16/2025 10:37 Note Text: Chief Complaint Patient presents with: Follow Up: 6 month HPI Tashia Fernandez is a 74 year old female who presents here today for Above Complaints. Patient has been in good health without recent hospitalizations, ER visits, or falls. No concerns today. DIABETES MELLITUS: Ms. Fernandez was last seen 6 months ago. Since our last visit she denies excessive thirst or increased frequency of urination, numbness, tingling or pain in extremities, new or unusual visual symptoms, and low sugar/hypoglycemic reactions. Follows a diabetic diet generally not very much. Diet controlled. She reports checking her glucose on a once a day schedule with sugars in the fasting <130 range. Patient's last HgA1C was Hemoglobin A1C (%) Date Value 12/25/2024 6.2 05/29/2024 6.5 09/27/2019 6.2 03/22/2018 6.0 ) Last Ophthalmology exam was [address] Butler. Last Podiatry exam was within the past 12 months Sodium level is low on repeat labs. Patient states that she has not been urinating much during the day, but is peeing more at night. Going on for 2-3 years. Admits to urgency, flank pain. Denies dysuria, hematuria, suprapubic pain, nausea, vomiting, fever/chills, incontinence. CKD: stable on recent labs. Does not take NSAIDs and does eat low sodium diet. Past medical history, appointments, medications, allergies reviewed. Previous Medical History PAST MEDICAL HISTORY Diagnosis Date Contact dermatitis and other eczema Degenerative arthritis of knee 05/24/2011 Delayed gastric emptying 07/24/2012 Diabetes mellitus type II (HCC) 05/31/2024 Diarrhea Diverticulitis Diverticulosis of colon (without mention of hemorrhage) Diverticulosis Dysphagia, unspecified 08/29/2017 Elevated alkaline phosphatase level 07/12/2018 Essential hypertension, benign GERD (gastroesophageal reflux disease) Hyperlipidemia Hypokalemia 09/25/2012 Hypothyroidism Impaired fasting glucose 11/19/2015 Inadequate pelvic muscles 01/17/2012 Lumbar disc disease with radiculopathy 09/01/2016 Lung nodule < 6cm on CT 10/15/2018 10/07/18: incidental 4.5 mm nodule RML thyrotoxicosis Nonrheumatic mitral (valve) insufficiency Obesity Other osteoporosis 12/21/2006 Pancreatitis Paroxysmal SVT (supraventricular tachycardia) (HCC) Personal history of colonic polyps Colon polyps POLYP STOMACH 07/13/2007 Stage 3a chronic kidney disease (HCC) Statin intolerance 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--surgery not needed (2015) Trigeminal neuralgia 10/11/2011 Trochanteric bursitis of left hip 07/24/2012 Unspecified hemorrhoids without mention of complication Hemorrhoids Previous Surgical History PAST SURGICAL HISTORY Procedure Laterality Date COLONOSCOPY FLX DX W/COLLJ SPEC WHEN PFRMD 12/2018 Colonoscopy COLONOSCOPY FLX DX W/COLLJ SPEC WHEN PFRMD 07/13/2007 Lax colon COLONOSCOPY FLX DX W/COLLJ SPEC WHEN PFRMD 03/26/2014 Colonoscopy COLONOSCOPY FLX DX W/COLLJ SPEC WHEN PFRMD 12/2018 [id number] 10 years COLONOSCOPY GEN ANES 04/28/2021 DECOMPRESSION PLANTAR DIGITAL NERVE 2000 heel spur/ plantar fasciitis repair Rt EGD 06/02/2021 EGD TRANSORAL BIOPSY SINGLE/MULTIPLE 07/13/2007 Gastritis, fundic gland polyps EGD W/O [facility] SPEC VARICIES INJ 01/03/2024 Dr. Kelley ESOPHAGOGASTRODUODENOSCOPY TRANSORAL DIAGNOSTIC 03/26/2014 EGD EYE SURGERY HX INCISE FINGER TENDON SHEATH Left 08/09/2024 Left ring trigger finger release LAPAROSCOPY SURG CHOLECYSTECTOMY Cholecystectomy, lap LIG/TRNSXJ FLP TUBE ABDL/VAG APPR UNI/BI LIGATE FALLOPIAN TUBE NEUROPLASTY AND/TRANSPOS MEDIAN NRV CARPAL TUNNE Carpal tunnel decomp bilateral OPEN REPAIR OF ROTATOR CUFF ACUTE 1992 Rotator cuff repair, right STRESS TEST,COMPLETE_*FL Family History FAMILY HISTORY Problem Relation Age of Onset Diabetes Mother Heart Mother Stroke Mother Hypertension Mother other (MVA) Father Hypertension Sister Heart Sister Hypertension Sister Heart Sister Hypertension Brother Heart Brother Hypertension Brother Cancer Brother Oral cancer Cancer Paternal Grandfather skin Breast Cancer Maternal Aunt Asthma No Family History Patient Allergies ALLERGIES Allergen Reactions Lipitor [Atorvastat* Other: See Comments muscle cramps Spironolactone Other: See Comments headache Aceon [Perindopril * Rash, Cough Codeine Intolerance Chest pain Lisinopril Cough dry hacking cough Current Medications Current Outpatient Medications on File Prior to Visit Medication Sig diphenhydrAMINE (BENADRYL) 25 mg tablet Take 25 mg by mouth at bedtime as needed. OTC PRODUCT Take 1 tablet by mouth once daily. Prevagen alendronate (FOSAMAX) 70 mg tablet Take 1 tablet by mouth one (more content not included)... [facility] 12-27-2024 History of Present illness Narrative Chief Complaint Patient presents with: Follow Up: 6 month HPI Tashia Fernandez is a 74 year old female who presents here today for Above Complaints. Patient has been in good health without recent hospitalizations, ER visits, or falls. No concerns today. DIABETES MELLITUS: Ms. Fernandez was last seen 6 months ago. Since our last visit she denies excessive thirst or increased frequency of urination, numbness, tingling or pain in extremities, new or unusual visual symptoms, and low sugar/hypoglycemic reactions. Follows a diabetic diet generally not very much. Diet controlled. She reports checking her glucose on a once a day schedule with sugars in the fasting <130 range. Patient's last HgA1C was Hemoglobin A1C (%) Date Value 12/25/2024 6.2 05/29/2024 6.5 09/27/2019 6.2 03/22/2018 6.0 ) Last Ophthalmology exam was [address] Butler. Last Podiatry exam was within the past 12 months Sodium level is low on repeat labs. Patient states that she has not been urinating much during the day, but is peeing more at night. Going on for 2-3 years. Admits to urgency, flank pain. Denies dysuria, hematuria, suprapubic pain, nausea, vomiting, fever/chills, incontinence. CKD: stable on recent labs. Does not take NSAIDs and does eat low sodium diet. Past medical history, appointments, medications, allergies reviewed. Previous Medical History PAST MEDICAL HISTORY Diagnosis Date Contact dermatitis and other eczema Degenerative arthritis of knee 05/24/2011 Delayed gastric emptying 07/24/2012 Diabetes mellitus type II (HCC) 05/31/2024 Diarrhea Diverticulitis Diverticulosis of colon (without mention of hemorrhage) Diverticulosis Dysphagia, unspecified 08/29/2017 Elevated alkaline phosphatase level 07/12/2018 Essential hypertension, benign GERD (gastroesophageal reflux disease) Hyperlipidemia Hypokalemia 09/25/2012 Hypothyroidism Impaired fasting glucose 11/19/2015 Inadequate pelvic muscles 01/17/2012 Lumbar disc disease with radiculopathy 09/01/2016 Lung nodule < 6cm on CT 10/15/2018 10/07/18: incidental 4.5 mm nodule RML thyrotoxicosis Nonrheumatic mitral (valve) insufficiency Obesity Other osteoporosis 12/21/2006 Pancreatitis Paroxysmal SVT (supraventricular tachycardia) ([facility]) Personal history of colonic polyps Colon polyps POLYP STOMACH 07/13/2007 Stage 3a chronic kidney disease (HCC) Statin intolerance 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--surgery not needed (2015) Trigeminal neuralgia 10/11/2011 Trochanteric bursitis of left hip 07/24/2012 Unspecified hemorrhoids without mention of complication Hemorrhoids Previous Surgical History PAST SURGICAL HISTORY Procedure Laterality Date COLONOSCOPY FLX DX W/COLLJ SPEC WHEN PFRMD 12/2018 Colonoscopy COLONOSCOPY FLX DX W/COLLJ SPEC WHEN PFRMD 07/13/2007 Lax colon COLONOSCOPY FLX DX W/COLLJ SPEC WHEN PFRMD 03/26/2014 Colonoscopy COLONOSCOPY FLX DX W/COLLJ SPEC WHEN PFRMD 12/2018 [id number] 10 years COLONOSCOPY GEN ANES 04/28/2021 DECOMPRESSION PLANTAR DIGITAL NERVE 2000 heel spur/ plantar fasciitis repair Rt EGD 06/02/2021 EGD TRANSORAL BIOPSY SINGLE/MULTIPLE 07/13/2007 Gastritis, fundic gland polyps EGD W/O [facility] SPEC VARICIES INJ 01/03/2024 Dr. Kelley ESOPHAGOGASTRODUODENOSCOPY TRANSORAL DIAGNOSTIC 03/26/2014 EGD EYE SURGERY HX INCISE FINGER TENDON SHEATH Left 08/09/2024 Left ring trigger finger release LAPAROSCOPY SURG CHOLECYSTECTOMY Cholecystectomy, lap LIG/TRNSXJ FLP TUBE ABDL/VAG APPR UNI/BI LIGATE FALLOPIAN TUBE NEUROPLASTY &/TRANSPOS MEDIAN NRV CARPAL TUNNE Carpal tunnel decomp bilateral OPEN REPAIR OF ROTATOR CUFF ACUTE 1992 Rotator cuff repair, right STRESS TEST,COMPLETE_*FL Family History FAMILY HISTORY Problem Relation Age of Onset Diabetes Mother Heart Mother Stroke Mother Hypertension Mother other (MVA) Father Hypertension Sister Heart Sister Hypertension Sister Heart Sister Hypertension Brother Heart Brother Hypertension Brother Cancer Brother Oral cancer Cancer Paternal Grandfather skin Breast Cancer Maternal Aunt Asthma No Family History Patient Allergies ALLERGIES Allergen Reactions Lipitor [Atorvastat* Other: See Comments muscle cramps Spironolactone Other: See Comments headache Aceon [Perindopril * Rash, Cough Codeine Intolerance Chest pain Lisinopril Cough dry hacking cough Current Medications Current Outpatient Medications on File Prior to Visit Medication Sig diphenhydrAMINE (BENADRYL) 25 mg tablet Take 25 mg by mouth at bedtime as needed. OTC PRODUCT Take 1 tablet by mouth once daily. Prevagen alendronate (FOSAMAX) 70 mg tablet Take 1 tablet by mouth one time a week. In AM with cup of water on empty stomach. Nothing else by mouth and stay upright for 30 min. gabapentin (NEURONTIN) 300 mg capsule Take 1 capsule by mouth daily at bedtime for 90 days. levothyroxine (SYNTHROID) 88 mcg tablet Take one tablet daily Monday-Monday and two tablets on Monday amLODIPine (NORVASC) 2.5 mg tablet Take one tablet daily in addition to 5 mg to equal 7.5 mg daily amLODIPine (NORVASC) 5 mg tablet Take 1 tablet by mouth once daily. pantoprazole DR (PROTONIX) 40 mg tablet Take 1 tablet by mouth once daily. labetalol (TRANDATE) 200 mg tablet Take 1 tablet by mouth two times a day. isosorbide mononitrate ER (IMDUR) 30 mg 24 hr tablet Take 1 tablet by mouth once daily. potassium chloride ER (KLOR-CON) 20 mEq tablet Take 2 tablets by mouth two times a day. meclizine (ANTIVERT) 25 mg tab Take 1 tablet by mouth three times a day as needed (vertigo). blood sugar diagnostic (BLOOD GLUCOSE TEST) test strip Test blood sugar(s) 1 times daily. Dx: Prediabetes Insulin: No Lancets lancets Test blood sugar(s) 1 times daily. Dx: Prediabetes Insulin: No losartan (COZAAR) 100 mg tablet Take 1 tablet by mouth once daily. polyethylene glycol 3350 17 gram/dose powder Take 17 g by mouth once daily. Dissolve dose in 4 - 8 ounces of liquid and take as directed. doxylamine succinate (SLEEP AID ORAL) Take by mouth daily at bedtime. calcium carbonate-Vit D3-minerals (CALTRATE) 600 mg calcium- 400 unit tab Take 2 tablets by mouth once daily. ondansetron orally disintegrating (ZOFRAN ODT) 4 mg disintegrating tablet Take 1 tablet by mouth every 6 hours as needed for Nausea/Vomiting. 0.9 % sodium chloride (NACL 0.9%) 0.9% solp Infuse 500 ml IV over [address] Biotin 2,500 mcg cap Take 1 capsule by mouth once daily. aspirin, enteric coated (ASPIRIN, ENTERIC COATED) 81 mg EC tablet Take 81 mg by mouth once daily. No current facility-administered medications on file prior to visit. Social History Social History Tobacco Use Smoking status: Former Current packs/day: 0.10 Average packs/day: 0.1 packs/day for 1 year (0.1 ttl pk-yrs) Types: Cigarettes Smokeless tobacco: Never Tobacco comments: Smoked 1 year or less in 1980s. Spouse was smoker in home for 39 years. Father smoked in childhood home. Vaping Use Vaping status: Never Used Substance Use Topics Alcohol use: No Drug use: No Review of Symptoms REVIEW OF SYSTEMS GENERAL: No weight loss, malaise or fevers RESPIRATORY: Negative for cough, hemoptysis, wheezing, COPD, dyspnea or shortness of breath CARDIOVASCULAR: Negative for chest pain, leg swelling, hypertension, CHF or palpitations GI: See HPI SKIN: Negative for lesions, rash, and itching EXAM: BP 124/68 Pulse 78 Resp 16 Wt 78.5 kg (173 lb 0.6 oz) SpO2 97% BMI 33.79 kg/m General Appearance: Well appearing, alert, in no acute distress, well-hydrated, well nourished.. Skin: Skin color, texture, turgor normal, no suspicious rashes or lesions. Lungs: Lungs clear to auscultation. No wheezing, rhonchi, rales.. Heart: RRR without murmur, gallop, or rubs. No ectopy. Abdomen: Normal abdominal exam, Abdomen soft, non-tender. Bowel sounds normal. No masses, organomegaly. Extremities: No deformities, edema, skin discoloration, clubbing or cyanosis. Good capillary refill. . Health Maintenance List Dilated Retinal Exam Never done Depression Screening Never done Anxiety Screening Never done DTaP,Tdap,Td Vaccine(1 - Tdap) Never done Shingrix Vaccine(1 of 2) Never done RSV Vaccine(1 - 1-dose 75+ series) Never done Covid-19 Vaccine() due on 07/07/2024 Advance Directive Discussion Never done LDL Cholesterol due on 01/17/2025 Hemoglobin/Hematocrit due on 05/29/2025 HbA1C due on 06/24/2025 Diabetic Foot Exam due on 06/26/2025 Annual PCP Team Chronic Disease Visit due on 06/26/2025 BP Controlled (<130/80) due on 11/25/2025 Urine Albumin:Creatinine Ratio due on 12/25/2025 Serum Creatinine due on 12/25/2025 Bone Density Screening due on 07/22/2026 Influenza Vaccine Completed Hepatitis C Screening Completed Pneumococcal Vaccine: 50+ Completed Mammogram Screening Discontinued Colorectal Cancer Screening Discontinued Data reviewed Latest Ref Rng 05/16/2024 05/29/2024 12/25/2024 WBC 3.70 - 11.00 k/uL 7.43 RBC 3.90 - 5.20 m/uL 4.36 Hemoglobin 11.5 - 15.5 g/dL 12.1 Hematocrit 36.0 - 46.0 % 38.3 MCV 80.0 - 100.0 fL 87.8 MCH 26.0 - 34.0 pg 27.8 MCHC 30.5 - 36.0 g/dL 31.6 RDW-CV 11.5 - 15.0 % 13.3 Platelet Count 150 - 400 k/uL 305 MPV 9.0 - 12.7 fL 9.6 Neut% % 61.3 Abs Neut (ANC) 1.45 - 7.50 k/uL 4.55 Lymph% % 23.8 Abs Lymph 1.00 - 4.00 k/uL 1.77 [place]% % 10.6 Abs [place] <0.87 k/uL 0.79 Eosin% % 3.1 Abs Eosin <0.46 k/uL 0.23 Baso% % 1.1 Abs Baso <0.11 k/uL 0.08 Immature Gran % % 0.1 IMMATURE GRANS (ABS) <0.10 k/uL <0.03 NRBC /100 WBC 0.0 Absolute nRBC <0.01 k/uL <0.01 DTYPE Auto Protein, Total 6.3 - 8.0 g/dL 6.7 7.4 Albumin 3.9 - 4.9 g/dL 4.2 4.4 Calcium 8.5 - 10.2 mg/dL 9.3 9.6 9.6 Bilirubin, Total 0.2 - 1.3 mg/dL 0.2 0.5 Alkaline Phosphatase 34 - 123 U/L 119 93 AST 13 - 35 U/L 16 18 ALT 7 - 38 U/L 13 13 Glucose 74 - 99 mg/dL 103 (H) 90 97 BUN 7 - 21 mg/dL 11 15 17 Creatinine 0.58 - 0.96 mg/dL 0.97 (H) 1.08 (H) 1.05 (H) Sodium 136 - 144 mmol/L 132 (L) 134 (L) 131 (L) Potassium 3.7 - 5.1 mmol/L 4.5 4.2 4.3 Chloride 98 - 107 mmol/L 97 (L) 99 94 (L) CO2 22 - 30 mmol/L 25 25 25 Anion Gap 8 - 15 mmol/L 10 10 12 eGFR >=60 mL/min/1.73m 61 53 (L) 55 (L) Creatinine, Ur Random (UCRR) 20.0 - 300.0 mg/dL 77.0 Albumin, Urine Random mg/L <12.0 Albumin/Creat Ratio <30 mg/g <16 Hemoglobin A1C 4.3 - 5.6 % 6.5 (H) 6.2 (H) Estimated Average Glucose mg/dL 140 131 TSH 0.270 - 4.200 mIU/L 2.470 Legend: (H) High (L) Low ASSESSMENT/PLAN: 1. Diabetes mellitus type II (HCC) - ICD9: 250.00, ICD10: E11.9 (primary diagnosis) - Controlled - Continue current medications - Statin prescribed - No, intolerance - Blood glucose monitoring on a once daily schedule - Counseled on healthy diet and regular exercise - Discussed need for and benefit of weight loss. BMI 33.79 kg/(m^2) - Discussed diabetic education issues of diabetes complications and monitoring required, hypoglycemic/hyperglycemic symptoms, and medication-specific side effects and monitoring - Follow up in 6 months, sooner should any other issues arise. 2. Stage 3a chronic kidney disease (HCC) - ICD9: 585.3, ICD10: N18.31 - eGFR: 55 Stable - Counseled on avoiding NSAIDs, adequate hydration - Counseled on low sodium diet - CONSULT TO NEPHROLOGY - URINALYSIS, WITH MICROSCOPIC 3. Hyponatremia - ICD9: 276.1, ICD10: E87.1 Obtain labs and urine studies to evaluate for cause. - OSMOLALITY - OSMOLALITY URINE - SODIUM RANDOM URINE - CONSULT TO NEPHROLOGY 4. Essential hypertension, benign - ICD9: 401.1, ICD10: I10 - Controlled - Continue current medications - Recommend home blood pressure monitoring, to bring results to next visit - Encouraged sodium restriction, DASH or Mediterranean diet - Recommend regular aerobic exercise 5. Hyperlipidemia, unspecified hyperlipidemia type - ICD9: 272.4, ICD10: E78.5 - Controlled - Continue current medications - Counseled on healthy diet and regular exercise 6. Tethered spinal cord (HCC) - ICD9: 742.59, ICD10: Q06.8 Mid thoracic spinal cord. Surgery not needed. 7. Mild pulmonary hypertension (HCC) - ICD9: 416.8, ICD10: I27.20 Following with cardiology. Asymptomatic. 8. Nocturia - ICD9: 788.43, ICD10: R35.1 Check UA to rule out infection. Refer to urology for further workup. - UA DIP, URINE (POC) - CONSULT TO UROLOGY Elisa Starr MD documented in this encounter [facility] 12-18-2024 Note HNO ID: [id number] Author: SURY PARKER MA Service: ? Author Type: Infectious Disease Technician Type: Progress Notes Filed: 12/18/2024 10:17 Note Text: POPULATION HEALTH NAVIGATION OUTREACH Action/FYI Pt is due for RICHARD and A1c and Haylie Spoke with patient she gets eye exams at [facility] [place] and orders are in for labs reminded her she needs to get them done Reason for Outreach Care Gap/HCC or Scheduling Wellness Visits Care Gaps due: Diabetic Eye Exam HBA1C KED Patient Contacted: Spoke to patient/parent/or legal guardian Patient identified by name and : Yes Care Gap/HCC/Scheduling Wellness actions taken: Patient declined: Doesn't feel it's necessary Navigation Signature: Sury Parker MA December 18, 2024 10:15 AM [facility] 12-18-2024 History of Present illness Narrative POPULATION HEALTH NAVIGATION OUTREACH Action/FYI Pt is due for RICHARD and A1c and Haylie Spoke with patient she gets eye exams at [facility] and orders are in for labs reminded her she needs to get them done Reason for Outreach Care Gap/HCC or Scheduling Wellness Visits Care Gaps due: Diabetic Eye Exam HBA1C KED Patient Contacted: Spoke to patient/parent/or legal guardian Patient identified by name and : Yes Care Gap/HCC/Scheduling Wellness actions taken: Patient declined: Doesn't feel it's necessary Navigation Signature: Sury Parker MA December 18, 2024 10:15 AM documented in this encounter [facility] 12-18-2024 Note Patient Outreach (NE TNAV) TASHIA FERNANDEZ ([id number]) 1950 F Date Time Provider Department 12/18/24 SURY PARKER During your visit today, we recorded the following information about you: Sury Parker MA 12/18/2024 10:17 AM Signed POPULATION HEALTH NAVIGATION OUTREACH Action/FYI Pt is due for RICHARD and A1c and Haylie Spoke with patient she gets eye exams at [facility] and orders are in for labs reminded her she needs to get them done Reason for Outreach Care Gap/HCC or Scheduling Wellness Visits Care Gaps due: Diabetic Eye Exam HBA1C KED Patient Contacted: Spoke to patient/parent/or legal guardian Patient identified by name and : Yes Care Gap/HCC/Scheduling Wellness actions taken: Patient declined: Doesn't feel it's necessary Navigation Signature: Sury Parker MA December 18, 2024 10:15 AM Allergies As of Date: 12/18/2024 Noted Allergy Reaction LIPITOR (ATORVASTATIN CALCIUM) 10/21/2014 14 - Other: See Comments Comments: muscle cramps SPIRONOLACTONE 03/21/2014 14 - Other: See Comments Comments: headache ACEON (PERINDOPRIL ERBUMINE) 11/02/2005 2 - Rash 3 - Cough CODEINE 12/09/2009 5 - Intolerance Comments: Chest pain LISINOPRIL 10/07/2005 3 - Cough Comments: dry hacking cough Date Reviewed: 11/25/2024 Reviewed by: Dax Turner MA - Fully Assessed Reason for Visit: Population Health Navigation Outreach [3910] Cmt: Yasmine High Risk Attempt #1 Prescriptions as of 12/18/2024 - diphenhydrAMINE (BENADRYL) 25 mg tablet Take 25 mg by mouth at bedtime as needed. - OTC PRODUCT Take 1 tablet by mouth once daily. Prevagen - alendronate (FOSAMAX) 70 mg tablet Take 1 tablet by mouth one time a week. In AM with cup of water on empty stomach. Nothing else by mouth and stay upright for 30 min. - gabapentin (NEURONTIN) 300 mg capsule Take 1 capsule by mouth daily at bedtime for 90 days. - levothyroxine (SYNTHROID) 88 mcg tablet Take one tablet daily Monday-Monday and two tablets on Monday - amLODIPine (NORVASC) 2.5 mg tablet Take one tablet daily in addition to 5 mg to equal 7.5 mg daily - amLODIPine (NORVASC) 5 mg tablet Take 1 tablet by mouth once daily. - pantoprazole DR (PROTONIX) 40 mg tablet Take 1 tablet by mouth once daily. - labetalol (TRANDATE) 200 mg tablet Take 1 tablet by mouth two times a day. - isosorbide mononitrate ER (IMDUR) 30 mg 24 hr tablet Take 1 tablet by mouth once daily. - potassium chloride ER (KLOR-CON) 20 mEq tablet Take 2 tablets by mouth two times a day. - meclizine (ANTIVERT) 25 mg tab Take 1 tablet by mouth three times a day as needed (vertigo). - blood sugar diagnostic (BLOOD GLUCOSE TEST) test strip Test blood sugar(s) 1 times daily. Dx: Prediabetes Insulin: No - Lancets lancets Test blood sugar(s) 1 times daily. Dx: Prediabetes Insulin: No - losartan (COZAAR) 100 mg tablet Take 1 tablet by mouth once daily. - polyethylene glycol 3350 17 gram/dose powder Take 17 g by mouth once daily. Dissolve dose in 4 - 8 ounces of liquid and take as directed. - doxylamine succinate (SLEEP AID ORAL) Take by mouth daily at bedtime. - calcium carbonate-Vit D3-minerals (CALTRATE) 600 mg calcium- 400 unit tab Take 2 tablets by mouth once daily. - ondansetron orally disintegrating (ZOFRAN ODT) 4 mg disintegrating tablet Take 1 tablet by mouth every 6 hours as needed for Nausea/Vomiting. - 0.9 % sodium chloride (NACL 0.9%) 0.9% solp Infuse 500 ml IV over [address] - Biotin 2,500 mcg cap Take 1 capsule by mouth once daily. - aspirin, enteric coated (ASPIRIN, ENTERIC COATED) 81 mg EC tablet Take 81 mg by mouth once daily. Meds Comments as of 01/03/2017: Biotin Problem List As Of Date 12/18/2024 Noted Resolved Primary hypertension [I10] Personal history of colonic polyps [Z86.0100] 06/02/2021 Postablative hypothyroidism [E89.0] 10/10/2005 Osteoporosis [M81.0] 01/16/2007 GASTRITIS ANTRAL( W/O Hemorrhage) [K29.60] 07/13/2007 11/02/2015 POLYP STOMACH [D13.1] 07/13/2007 12/19/2019 CERVICAL DISC DEGEN [M50.30] 02/11/2009 Degenerative arthritis of knee [M17.9] 05/24/2011 Trigeminal neuralgia [G50.0] 10/11/2011 Inadequate pelvic muscles [R29.898] 01/17/2012 Mixed stress and urge urinary incontinence [N39*02/03/2012 Uterine prolapse [N81.4] 02/03/2012 Cystocele, midline [N81.11] 02/03/2012 Gastroesophageal reflux disease [K21.9] 06/01/2012 Delayed gastric emptying [K30] 07/24/2012 Trochanteric bursitis of left hip [M70.62] 07/24/2012 10/15/2018 Chronic hypokalemia [E87.6] 09/25/2012 Thoracic radiculopathy due to degenerative join*06/09/2014 Tethered spinal cord (HCC) [Q06.8] 11/20/2014 Abdominal pain [R10.9] 11/20/2014 09/01/2016 Poor sleep hygiene [Z72.821] 11/02/2015 Impaired fasting glucose [R73.01] 11/19/2015 Lumbar disc disease with radiculopathy [M51.16] 09/01/2016 Venous i (more content not included)... [facility] 12-03-2024 Note HNO ID: [id number] Author: ELISA STARR MD Service: ? Author Type: Physician Type: Progress Notes Filed: 12/03/2024 14:55 Note Text: Reviewed. [facility] 12-03-2024 History of Present illness Narrative Reviewed. Phoned patient and spoke with her re: OV for nocturia. Patient declined stating I have an appointment in 3 weeks and we can address it then. Explained to patient this her routine follow up and not for acute or new issues. Patient again stated she wasn't coming in for additional appointments when she already has one. Advised patient that would update PCP with this information.\ Mis Hylton LPN Recommend OV to discuss nocturia. CDM ENROLLMENT Provider Action / FYI: Pharmacy Pt has noticed that she has nocturia. SHe is asking if any of her medications could be contributing to her symptoms. Dr Isa Lao is c/o nocturia. Symptom has been present for over a year. Has occasional urgency, Mata dysuria or cloudy foul smelling urine. No issues during the day at all. Asking if she can follow up with Urologist. Please route any further follow up to office staff. Patient identified by name and date of . Discussed care with patient. Program Details Chronic Disease Management Status: Identified Start Date: 12/02/2024 Responsible Staff: Sheri Reddy RN Support and Services: Diabetes, Hypertension, Chronic Kidney Disease (CKD) Assessments CDM Assessment Medications: Do you have any questions about taking your medications or which medications you should be taking?: No Do you need any medication refills at this time, including any of the medication you might take only when needed?: No Social: It can be normal to feel anxious or down during a time like this. Would you like to talk to a mental health professional about how you have been feeling?: No Symptoms: Are you experiencing any new or worsening symptoms that you need to talk about today?: No ADLs Patients can perform the following activities without help: Dressing: Yes Bathing: Yes Doing laundry: Yes Climbing a flight of stairs: Yes Walking briskly: Yes Instrumental activities of daily living Do you drive a car?: Yes Do you need help from others to take care of things inside the house, for example: laundry, house cleaning, preparing meals?: No Do you need help from others with errands outside the house, for example: shopping for groceries or clothes, going medical appointments?: No Fall Risk One or more falls in the last year:: No Any near falls in the last year?: No Advised to use a cane or walker to get around safely:: No Feels unsteady when walking:: No SDOH Financial Resource Strain How hard is it for you to pay for the very basics like food, housing, medical care, and heating?: Hard Housing Stability In the last 12 months, was there a time when you were not able to pay the mortgage or rent on time?: No At any time in the past 12 months, were you homeless or living in a snf (including now)?: No Transportation Needs In the past 12 months, has lack of transportation kept you from medical appointments or from getting medications?: No In the past 12 months, has lack of transportation kept you from meetings, work, or from getting things needed for daily living?: No Food Insecurity Within the past 12 months, you worried that your food would run out before you got the money to buy more.: Never true Within the past 12 months, the food you bought just didn't last and you didn't have money to get more.: Never true Tobacco Use Patient reports that she has quit smoking. Her smoking use included cigarettes. She has a 0.1 pack-year smoking history. She has never used smokeless tobacco. Interventions No checklist tasks for this episode were completed during this visit, and no tasks for this episode are pending completion. Sheri Reddy RN December 03, 2024 2:18 PM documented in this encounter [facility] 12-03-2024 Note HNO ID: [id number] Author: MIS HYLTON LPN Service: ? Author Type: LICENSED NURSE Type: Progress Notes Filed: 12/03/2024 14:53 Note Text: Phoned patient and spoke with her re: OV for nocturia. Patient declined stating I have an appointment in 3 weeks and we can address it then. Explained to patient this her routine follow up and not for acute or new issues. Patient again stated she wasn't coming in for additional appointments when she already has one. Advised patient that would update PCP with this information. Mis Hylton LPN [facility] 12-03-2024 Note HNO ID: [id number] Author: ELISA STARR MD Service: ? Author Type: Physician Type: Progress Notes Filed: 12/03/2024 14:39 Note Text: Recommend OV to discuss nocturia. [facility] 12-03-2024 Telephone encounter Note Pharmacy Community Monitoring Outreach Patient indicated a medication question during Chronic Disease Management (CDM) outreach. Encounter was routed to Pharmacy Medication Question Pool for follow up. Patient indicated Medication question(s) regarding: Medication Reconciliation Review The following was discussed with them: The patient is wanting to know if any of her medications would cause nocturia. Plan/Recommendations: Went through medication list with patient. She is also taking Benadryl at night sometimes which I told her would not cause nocturia. Let patient know that the medications she is on would not cause these symptoms. She has a follow-up appointment on 12/27/2024 with her PCP where she will discuss these symptoms further. The patient did verbalize understanding of information discussed today. I encouraged her to contact PCP office with any additional questions or concerns. Nyla Contreras RPh December 03, 2024 2:38 PM [facility] Work Phone: 12-03-2024 Miscellaneous Notes Pharmacy Community Monitoring Outreach Patient indicated a medication question during Chronic Disease Management (CDM) outreach. Encounter was routed to Pharmacy Medication Question Pool for follow up. Patient indicated Medication question(s) regarding: Medication Reconciliation Review The following was discussed with them: The patient is wanting to know if any of her medications would cause nocturia. Plan/Recommendations: Went through medication list with patient. She is also taking Benadryl at night sometimes which I told her would not cause nocturia. Let patient know that the medications she is on would not cause these symptoms. She has a follow-up appointment on 12/27/2024 with her PCP where she will discuss these symptoms further. The patient did verbalize understanding of information discussed today. I encouraged her to contact PCP office with any additional questions or concerns. Nyla Contreras RPh December 03, 2024 2:38 PM documented in this encounter [facility] 12-03-2024 Note HNO ID: [id number] Author: SHERI REDDY RN Service: ? Author Type: Registered Nurse Type: Progress Notes Filed: 12/03/2024 14:33 Note Text: CDM ENROLLMENT Provider Action / FYI: Pharmacy Pt has noticed that she has nocturia. SHe is asking if any of her medications could be contributing to her symptoms. Dr Isa Lao is c/o nocturia. Symptom has been present for over a year. Has occasional urgency, Mata dysuria or cloudy foul smelling urine. No issues during the day at all. Asking if she can follow up with Urologist. Please route any further follow up to office staff. Patient identified by name and date of . Discussed care with patient. Program Details Chronic Disease Management Status: Identified Start Date: 12/02/2024 Responsible Staff: Sheri Reddy RN Support and Services: Diabetes, Hypertension, Chronic Kidney Disease (CKD) Assessments CDM Assessment Medications: Do you have any questions about taking your medications or which medications you should be taking?: No Do you need any medication refills at this time, including any of the medication you might take only when needed?: No Social: It can be normal to feel anxious or down during a time like this. Would you like to talk to a mental health professional about how you have been feeling?: No Symptoms: Are you experiencing any new or worsening symptoms that you need to talk about today?: No ADLs Patients can perform the following activities without help: Dressing: Yes Bathing: Yes Doing laundry: Yes Climbing a flight of stairs: Yes Walking briskly: Yes Instrumental activities of daily living Do you drive a car?: Yes Do you need help from others to take care of things inside the house, for example: laundry, house cleaning, preparing meals?: No Do you need help from others with errands outside the house, for example: shopping for groceries or clothes, going medical appointments?: No Fall Risk One or more falls in the last year:: No Any near falls in the last year?: No Advised to use a cane or walker to get around safely:: No Feels unsteady when walking:: No SDOH Financial Resource Strain How hard is it for you to pay for the very basics like food, housing, medical care, and heating?: Hard Housing Stability In the last 12 months, was there a time when you were not able to pay the mortgage or rent on time?: No At any time in the past 12 months, were you homeless or living in a snf (including now)?: No Transportation Needs In the past 12 months, has lack of transportation kept you from medical appointments or from getting medications?: No In the past 12 months, has lack of transportation kept you from meetings, work, or from getting things needed for daily living?: No Food Insecurity Within the past 12 months, you worried that your food would run out before you got the money to buy more.: Never true Within the past 12 months, the food you bought just didn't last and you didn't have money to get more.: Never true Tobacco Use Patient reports that she has quit smoking. Her smoking use included cigarettes. She has a 0.1 pack-year smoking history. She has never used smokeless tobacco. Interventions No checklist tasks for this episode were completed during this visit, and no tasks for this episode are pending completion. Sheri Reddy RN December 03, 2024 2:18 PM [facility] [place] 12-03-2024 Note Patient Outreach ([facility] TASHIA FERNANDEZ ([id number]) 1950 F Date Time Provider Department 12/03/24 SHERI REDDY [facility] During your visit today, we recorded the following information about you: Sheri Reddy RN 12/03/2024 2:33 PM Signed CDM ENROLLMENT Provider Action / FYI: Pharmacy Pt has noticed that she has nocturia. SHe is asking if any of her medications could be contributing to her symptoms. Dr Isa Lao is c/o nocturia. Symptom has been present for over a year. Has occasional urgency, Mata dysuria or cloudy foul smelling urine. No issues during the day at all. Asking if she can follow up with Urologist. Please route any further follow up to office staff. Patient identified by name and date of . Discussed care with patient. Program Details Chronic Disease Management Status: Identified Start Date: 12/02/2024 Responsible Staff: Sheri Reddy RN Support and Services: Diabetes, Hypertension, Chronic Kidney Disease (CKD) Assessments CDM Assessment Medications: Do you have any questions about taking your medications or which medications you should be taking?: No Do you need any medication refills at this time, including any of the medication you might take only when needed?: No Social: It can be normal to feel anxious or down during a time like this. Would you like to talk to a mental health professional about how you have been feeling?: No Symptoms: Are you experiencing any new or worsening symptoms that you need to talk about today?: No ADLs Patients can perform the following activities without help: Dressing: Yes Bathing: Yes Doing laundry: Yes Climbing a flight of stairs: Yes Walking briskly: Yes Instrumental activities of daily living Do you drive a car?: Yes Do you need help from others to take care of things inside the house, for example: laundry, house cleaning, preparing meals?: No Do you need help from others with errands outside the house, for example: shopping for groceries or clothes, going medical appointments?: No Fall Risk One or more falls in the last year:: No Any near falls in the last year?: No Advised to use a cane or walker to get around safely:: No Feels unsteady when walking:: No SDOH Financial Resource Strain How hard is it for you to pay for the very basics like food, housing, medical care, and heating?: Hard Housing Stability In the last 12 months, was there a time when you were not able to pay the mortgage or rent on time?: No At any time in the past 12 months, were you homeless or living in a snf (including now)?: No Transportation Needs In the past 12 months, has lack of transportation kept you from medical appointments or from getting medications?: No In the past 12 months, has lack of transportation kept you from meetings, work, or from getting things needed for daily living?: No Food Insecurity Within the past 12 months, you worried that your food would run out before you got the money to buy more.: Never true Within the past 12 months, the food you bought just didn't last and you didn't have money to get more.: Never true Tobacco Use Patient reports that she has quit smoking. Her smoking use included cigarettes. She has a 0.1 pack-year smoking history. She has never used smokeless tobacco. Interventions No checklist tasks for this episode were completed during this visit, and no tasks for this episode are pending completion. Sheri Reddy RN December 03, 2024 2:18 PM Elisa Starr MD 12/03/2024 2:39 PM Signed Recommend OV to discuss nocturia. Mis Hylton LPN 12/03/2024 2:53 PM Signed Phoned patient and spoke with her re: OV for nocturia. Patient declined stating I have an appointment in 3 weeks and we can address it then. Explained to patient this her routine follow up and not for acute or new issues. Patient again stated she wasn't coming in for additional appointments when she already has one. Advised patient that would update PCP with this information. EYAL Harrell Christopher B, MD 12/03/2024 2:55 PM Signed Reviewed. Allergies As of Date: 12/03/2024 Noted Allergy Reaction LIPITOR (ATORVASTATIN CALCIUM) 10/21/2014 14 - Other: See Comments Comments: muscle cramps SPIRONOLACTONE 03/21/2014 14 - Other: See Comments Comments: headache ACEON (PERINDOPRIL ERBUMINE) 11/02/2005 2 - Rash 3 - Cough CODEINE 12/09/2009 5 - Intolerance Comments: Chest pain LISINOPRIL 10/07/2005 3 - Cough Comments: dry hacking cough Date Reviewed: 11/25/2024 Reviewed by: Dax Turner MA - Fully Assessed Prescriptions as of 12/03/2024 - diphenhydrAMINE (BENADRYL) 25 mg tablet Take 25 mg by mouth at bedtime as needed. - OTC PRODUCT Take 1 tablet by mouth once daily. Prevagen - alendronate (FOSAMAX) 70 mg tablet Take 1 tablet by mouth one (more content not included)... [facility] [place] 11-29-2024 Telephone encounter Note Last rx written 09/05/24 #90 with 3 refills. Pt not due for refills. Phoned pt, notified of the same. Otoniel Mas LPN [facility] 11-29-2024 Miscellaneous Notes Last rx written 09/05/24 #90 with 3 refills. Pt not due for refills. Phoned pt, notified of the same. Otoniel Mas LPN Prescription Refill Information The patient has been identified by name and date of : Yes Caregiver verified no other encounters exist for this prescription request: Yes Caregiver confirmed with patient/requestor that no other refills are due, in the near future, with this provider at this time: Yes The last office visit in the department: 06-26-24 Does the patient have a future office visit with this provider/department: Yes Requested Prescriptions Pending Prescriptions Disp Refills amLODIPine (NORVASC) 2.5 mg tablet 90 tablet 3 Sig: Take one tablet daily in addition to 5 mg to equal 7.5 mg daily Ebonie Jones November 29, 2024 11:23 AM documented in this encounter [facility] 11-29-2024 Telephone encounter Note Prescription Refill Information The patient has been identified by name and date of : Yes Caregiver verified no other encounters exist for this prescription request: Yes Caregiver confirmed with patient/requestor that no other refills are due, in the near future, with this provider at this time: Yes The last office visit in the department: 06-26-24 Does the patient have a future office visit with this provider/department: Yes Requested Prescriptions Pending Prescriptions Disp Refills amLODIPine (NORVASC) 2.5 mg tablet 90 tablet 3 Sig: Take one tablet daily in addition to 5 mg to equal 7.5 mg daily Ebonie Jones November 29, 2024 11:23 AM [facility] 11-25-2024 Note HNO ID: [id number] Author: JONNA BENAVIDES MD Service: ? Author Type: Physician Type: Progress Notes Filed: 11/25/2024 09:23 Note Text: Jonna Benavides MD Interventional Cardiology [address], [place] [address] [phone] Chief Complaint Patient presents with: Established Patient HISTORY OF PRESENT ILLNESS: Ms. Fernandez is a 74 year old female seen in my office today for follow-up prior history of hypertensive heart disease and diabetes mellitus with microvascular angina doing well from the cardiac 1 to be asymptomatic denies chest pain shortness of breath or angina well-controlled with medical therapy EKG today shows right bundle branch block incomplete with normal sinus rhythm no signs or symptoms of congestive heart failure Cardiac Risk Factors age (male over 45, female over 55), hyperlipidemia, diabetes, hypertension, family history of CAD PAST MEDICAL HISTORY Diagnosis Date Contact dermatitis and other eczema Degenerative arthritis of knee 05/24/2011 Delayed gastric emptying 07/24/2012 Diabetes mellitus type II (HCC) 05/31/2024 Diarrhea Diverticulitis Diverticulosis of colon (without mention of hemorrhage) Diverticulosis Dysphagia, unspecified 08/29/2017 Elevated alkaline phosphatase level 07/12/2018 Essential hypertension, benign GERD (gastroesophageal reflux disease) Hyperlipidemia Hypokalemia 09/25/2012 Hypothyroidism Impaired fasting glucose 11/19/2015 Inadequate pelvic muscles 01/17/2012 Lumbar disc disease with radiculopathy 09/01/2016 Lung nodule < 6cm on CT 10/15/2018 10/07/18: incidental 4.5 mm nodule RML thyrotoxicosis Nonrheumatic mitral (valve) insufficiency Obesity Other osteoporosis 12/21/2006 Pancreatitis Paroxysmal SVT (supraventricular tachycardia) (HCC) Personal history of colonic polyps Colon polyps POLYP STOMACH 07/13/2007 Stage 3a chronic kidney disease (HCC) Statin intolerance 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--surgery not needed (2016) Trigeminal neuralgia 10/11/2011 Trochanteric bursitis of left hip 07/24/2012 Unspecified hemorrhoids without mention of complication Hemorrhoids PAST SURGICAL HISTORY Procedure Laterality Date COLONOSCOPY FLX DX W/COLLJ SPEC WHEN PFRMD 12/2018 Colonoscopy COLONOSCOPY FLX DX W/COLLJ SPEC WHEN PFRMD 07/13/2007 Lax colon COLONOSCOPY FLX DX W/COLLJ SPEC WHEN PFRMD 03/26/2014 Colonoscopy COLONOSCOPY FLX DX W/COLLJ SPEC WHEN PFRMD 12/2018 [id number] 10 years COLONOSCOPY GEN ANES 04/28/2021 DECOMPRESSION PLANTAR DIGITAL NERVE 1999 heel spur/ plantar fasciitis repair Rt EGD 06/02/2021 EGD TRANSORAL BIOPSY SINGLE/MULTIPLE 07/13/2007 Gastritis, fundic gland polyps EGD W/O [facility] SPEC VARICIES INJ 01/03/2024 Dr. Kelley ESOPHAGOGASTRODUODENOSCOPY TRANSORAL DIAGNOSTIC 03/26/2014 EGD EYE SURGERY HX INCISE FINGER TENDON SHEATH Left 08/09/2024 Left ring trigger finger release LAPAROSCOPY SURG CHOLECYSTECTOMY Cholecystectomy, lap LIG/TRNSXJ FLP TUBE ABDL/VAG APPR UNI/BI LIGATE FALLOPIAN TUBE NEUROPLASTY AND/TRANSPOS MEDIAN NRV CARPAL TUNNE Carpal tunnel decomp bilateral OPEN REPAIR OF ROTATOR CUFF ACUTE 1992 Rotator cuff repair, right STRESS TEST,COMPLETE_*FL FAMILY HISTORY Problem Relation Age of Onset Diabetes Mother Heart Mother Stroke Mother Hypertension Mother other (MVA) Father Hypertension Sister Heart Sister Hypertension Sister Heart Sister Hypertension Brother Heart Brother Hypertension Brother Cancer Brother Oral cancer Cancer Paternal Grandfather skin Breast Cancer Maternal Aunt Asthma No Family History Social History Tobacco Use Smoking status: Former Current packs/day: 0.10 Average packs/day: 0.1 packs/day for 1 year (0.1 ttl pk-yrs) Types: Cigarettes Smokeless tobacco: Never Tobacco comments: Smoked 1 year or less in 1980s. Spouse was smoker in home for 39 years. Father smoked in childhood home. Vaping Use Vaping status: Never Used Substance Use Topics Alcohol use: No Drug use: No ALLERGIES Allergen Reactions Lipitor [Atorvastat* Other: See Comments muscle cramps Spironolactone Other: See Comments headache Aceon [Perindopril * Rash, Cough Codeine Intolerance Chest pain Lisinopril Cough dry hacking cough Medications: Current Outpatient Medications Medication Sig Dispense Refill OTC PRODUCT Take 1 tablet by mouth once daily. Prevagen alendronate (FOSAMAX) 70 mg tablet Take 1 tablet by mouth one time a week. In AM with cup of water on empty stomach. Nothing else by mouth and stay upright for 30 min. 12 tablet 3 gabapentin (NEURONTIN) 300 mg capsule Take 1 capsule by mouth daily at bedtime for 90 days. 90 capsule 0 levothyroxine (SYNTHROID) 88 mcg tablet Take one tablet daily Monday-Monday and two tablets on Monday 90 tablet 3 amLODIPine (NORVASC) 2.5 mg tablet Take one (more content not included)... [facility] [place] 11-25-2024 History of Present illness Narrative Images from the original note were not included. Jonna Benavides MD Interventional Cardiology [address] [address] [id number] Chief Complaint Patient presents with: Established Patient HISTORY OF PRESENT ILLNESS: Ms. Fernandez is a 74 year old female seen in my office today for follow-up prior history of hypertensive heart disease and diabetes mellitus with microvascular angina doing well from the cardiac 1 to be asymptomatic denies chest pain shortness of breath or angina well-controlled with medical therapy EKG today shows right bundle branch block incomplete with normal sinus rhythm no signs or symptoms of congestive heart failure Cardiac Risk Factors age (male over 45, female over 55), hyperlipidemia, diabetes, hypertension, family history of CAD PAST MEDICAL HISTORY Diagnosis Date Contact dermatitis and other eczema Degenerative arthritis of knee 05/24/2011 Delayed gastric emptying 07/24/2012 Diabetes mellitus type II (HCC) 05/31/2024 Diarrhea Diverticulitis Diverticulosis of colon (without mention of hemorrhage) Diverticulosis Dysphagia, unspecified 08/29/2017 Elevated alkaline phosphatase level 07/12/2018 Essential hypertension, benign GERD (gastroesophageal reflux disease) Hyperlipidemia Hypokalemia 09/25/2012 Hypothyroidism Impaired fasting glucose 11/19/2015 Inadequate pelvic muscles 01/17/2012 Lumbar disc disease with radiculopathy 09/01/2016 Lung nodule < 6cm on CT 10/15/2018 10/07/18: incidental 4.5 mm nodule RML thyrotoxicosis Nonrheumatic mitral (valve) insufficiency Obesity Other osteoporosis 12/21/2006 Pancreatitis Paroxysmal SVT (supraventricular tachycardia) (HCC) Personal history of colonic polyps Colon polyps POLYP STOMACH 07/13/2007 Stage 3a chronic kidney disease (HCC) Statin intolerance 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--surgery not needed (2015) Trigeminal neuralgia 10/11/2011 Trochanteric bursitis of left hip 07/24/2012 Unspecified hemorrhoids without mention of complication Hemorrhoids PAST SURGICAL HISTORY Procedure Laterality Date COLONOSCOPY FLX DX W/COLLJ SPEC WHEN PFRMD 12/2018 Colonoscopy COLONOSCOPY FLX DX W/COLLJ SPEC WHEN PFRMD 07/13/2007 Lax colon COLONOSCOPY FLX DX W/COLLJ SPEC WHEN PFRMD 03/26/2014 Colonoscopy COLONOSCOPY FLX DX W/COLLJ SPEC WHEN PFRMD 12/2018 [id number] 10 years COLONOSCOPY GEN ANES 04/28/2021 DECOMPRESSION PLANTAR DIGITAL NERVE 2000 heel spur/ plantar fasciitis repair Rt EGD 06/02/2021 EGD TRANSORAL BIOPSY SINGLE/MULTIPLE 07/13/2007 Gastritis, fundic gland polyps EGD W/O [facility] SPEC VARICIES INJ 01/03/2024 Dr. Kelley ESOPHAGOGASTRODUODENOSCOPY TRANSORAL DIAGNOSTIC 03/26/2014 EGD EYE SURGERY HX INCISE FINGER TENDON SHEATH Left 08/09/2024 Left ring trigger finger release LAPAROSCOPY SURG CHOLECYSTECTOMY Cholecystectomy, lap LIG/TRNSXJ FLP TUBE ABDL/VAG APPR UNI/BI LIGATE FALLOPIAN TUBE NEUROPLASTY &/TRANSPOS MEDIAN NRV CARPAL TUNNE Carpal tunnel decomp bilateral OPEN REPAIR OF ROTATOR CUFF ACUTE 1992 Rotator cuff repair, right STRESS TEST,COMPLETE_*FL FAMILY HISTORY Problem Relation Age of Onset Diabetes Mother Heart Mother Stroke Mother Hypertension Mother other (MVA) Father Hypertension Sister Heart Sister Hypertension Sister Heart Sister Hypertension Brother Heart Brother Hypertension Brother Cancer Brother Oral cancer Cancer Paternal Grandfather skin Breast Cancer Maternal Aunt Asthma No Family History Social History Tobacco Use Smoking status: Former Current packs/day: 0.10 Average packs/day: 0.1 packs/day for 1 year (0.1 ttl pk-yrs) Types: Cigarettes Smokeless tobacco: Never Tobacco comments: Smoked 1 year or less in 1980s. Spouse was smoker in home for 39 years. Father smoked in childhood home. Vaping Use Vaping status: Never Used Substance Use Topics Alcohol use: No Drug use: No ALLERGIES Allergen Reactions Lipitor [Atorvastat* Other: See Comments muscle cramps Spironolactone Other: See Comments headache Aceon [Perindopril * Rash, Cough Codeine Intolerance Chest pain Lisinopril Cough dry hacking cough Medications: Current Outpatient Medications Medication Sig Dispense Refill OTC PRODUCT Take 1 tablet by mouth once daily. Prevagen alendronate (FOSAMAX) 70 mg tablet Take 1 tablet by mouth one time a week. In AM with cup of water on empty stomach. Nothing else by mouth and stay upright for 30 min. 12 tablet 3 gabapentin (NEURONTIN) 300 mg capsule Take 1 capsule by mouth daily at bedtime for 90 days. 90 capsule 0 levothyroxine (SYNTHROID) 88 mcg tablet Take one tablet daily Monday-Monday and two tablets on Monday 90 tablet 3 amLODIPine (NORVASC) 2.5 mg tablet Take one tablet daily in addition to 5 mg to equal 7.5 mg daily 90 tablet 3 amLODIPine (NORVASC) 5 mg tablet Take 1 tablet by mouth once daily. 90 tablet 3 labetalol (TRANDATE) 200 mg tablet Take 1 tablet by mouth two times a day. 180 tablet 1 isosorbide mononitrate ER (IMDUR) 30 mg 24 hr tablet Take 1 tablet by mouth once daily. 90 tablet 1 potassium chloride ER (KLOR-CON) 20 mEq tablet Take 2 tablets by mouth two times a day. 360 tablet 3 meclizine (ANTIVERT) 25 mg tab Take 1 tablet by mouth three times a day as needed (vertigo). 30 tablet 1 losartan (COZAAR) 100 mg tablet Take 1 tablet by mouth once daily. 90 tablet 3 polyethylene glycol 3350 17 gram/dose powder Take 17 g by mouth once daily. Dissolve dose in 4 - 8 ounces of liquid and take as directed. doxylamine succinate (SLEEP AID ORAL) Take by mouth daily at bedtime. calcium carbonate-Vit D3-minerals (CALTRATE) 600 mg calcium- 400 unit tab Take 2 tablets by mouth once daily. ondansetron orally disintegrating (ZOFRAN ODT) 4 mg disintegrating tablet Take 1 tablet by mouth every 6 hours as needed for Nausea/Vomiting. 20 tablet 1 aspirin, enteric coated (ASPIRIN, ENTERIC COATED) 81 mg EC tablet Take 81 mg by mouth once daily. pantoprazole DR (PROTONIX) 40 mg tablet Take 1 tablet by mouth once daily. (Patient not taking: Reported on 09/16/2024) 90 tablet 3 blood sugar diagnostic (BLOOD GLUCOSE TEST) test strip Test blood sugar(s) 1 times daily. Dx: Prediabetes Insulin: No 50 Strip 11 Lancets lancets Test blood sugar(s) 1 times daily. Dx: Prediabetes Insulin: No 100 Each 11 0.9 % sodium chloride (NACL 0.9%) 0.9% solp Infuse 500 ml IV over [address] 500 mL 0 Biotin 2,500 mcg cap Take 1 capsule by mouth once daily. No current facility-administered medications for this visit. Review of Systems Constitutional: Negative for chills, diaphoresis, fever, malaise/fatigue and weight loss. HENT: Negative for congestion, ear discharge, ear pain, hearing loss, nosebleeds, sinus pain, sore throat and tinnitus. Eyes: Negative for blurred vision, double vision, photophobia, pain, discharge and redness. Respiratory: Negative for cough, hemoptysis, sputum production, shortness of breath, wheezing and stridor. Cardiovascular: Negative for chest pain, palpitations, orthopnea, claudication, leg swelling and PND. Gastrointestinal: Negative for abdominal pain, blood in stool, constipation, diarrhea, heartburn, melena, nausea and vomiting. Genitourinary: Negative for dysuria, flank pain, frequency, hematuria and urgency. Musculoskeletal: Negative for back pain, falls, joint pain, myalgias and neck pain. Skin: Negative for itching and rash. Neurological: Negative for dizziness, tingling, tremors, sensory change, speech change, focal weakness, seizures, loss of consciousness, weakness and headaches. Endo/Heme/Allergies: Negative for environmental allergies and polydipsia. Does not bruise/bleed easily. Psychiatric/Behavioral: Negative for depression, hallucinations, memory loss, substance abuse and suicidal ideas. The patient is not nervous/anxious and does not have insomnia. Physical Examination: Vitals:BP 111/62 Pulse 74 Wt 173 lb 3.2 oz (78.6kg) SpO2 98% BP w/Orthostatic Vitals Date and Time Orthostatic BP Orthostatic Pulse BP Pulse BP Position BP Site BP Cuff Size 11/25/24 0900 -- -- 111/62 74 Sitting Right Arm Regular Adult Last 2 Encounter Wt Readings: Date: Wt: 11/25/2024 78.6 kg (173 lb 3.2 oz) 08/07/2024 78.5 kg (173 lb) Physical Exam Constitutional: General: She is not in acute distress. Appearance: She is not diaphoretic. HENT: Head: Normocephalic and atraumatic. Right Ear: External ear normal. Left Ear: External ear normal. Nose: Nose normal. Mouth/Throat: Pharynx: Oropharynx is clear. Eyes: General: Right eye: No discharge. Left eye: No discharge. Conjunctiva/sclera: Conjunctivae normal. Pupils: Pupils are equal, round, and reactive to light. Cardiovascular: Rate and Rhythm: Normal rate and regular rhythm. Heart sounds: Normal heart sounds, S1 normal and S2 normal. No murmur heard. No friction rub. No gallop. No S3 or S4 sounds. Pulmonary: Effort: Pulmonary effort is normal. No respiratory distress. Breath sounds: Normal breath sounds. No wheezing or rales. Chest: Chest wall: No tenderness. Abdominal: General: Abdomen is flat. Musculoskeletal: General: Normal range of motion. Cervical back: Normal range of motion and neck supple. Skin: General: Skin is warm and dry. Neurological: Mental Status: She is alert and oriented to person, place, and time. Psychiatric: Mood and Affect: Mood normal. Thought Content: Thought content normal. Judgment: Judgment normal. Pertinent Labs: CBC: Hemoglobin (g/dL) Date Value 05/29/2024 12.1 10/22/2021 13.0 Hematocrit (%) Date Value 05/29/2024 38.3 10/22/2021 41.1 WBC (k/uL) Date Value 05/29/2024 7.43 10/22/2021 6.46 Platelet Count (k/uL) Date Value 05/29/2024 305 10/22/2021 293 BMP: Glucose (mg/dL) Date Value 05/29/2024 90 10/22/2021 80 Potassium (mmol/L) Date Value 05/29/2024 4.2 10/22/2021 4.1 Sodium (mmol/L) Date Value 05/29/2024 134 10/22/2021 138 Chloride (mmol/L) Date Value 05/29/2024 99 10/22/2021 102 CO2 (mmol/L) Date Value 05/29/2024 25 10/22/2021 26 Creatinine (mg/dL) Date Value 05/29/2024 1.08 10/22/2021 1.02 BUN (mg/dL) Date Value 05/29/2024 15 10/22/2021 17 Anion Gap (mmol/L) Date Value 05/29/2024 10 10/22/2021 10 Calcium (mg/dL) Date Value 10/22/2021 9.0 Calcium, Total (mg/dL) Date Value 05/29/2024 9.6 INR: Lipid Profile: Cholesterol, Total Date Value Ref Range Status 01/18/2024 174 <200 mg/dL Final Comment: <200 mg/dL, Desirable 200-239 mg/dL, Borderline high >239 mg/dL, High HDL Cholesterol Date Value Ref Range Status 01/18/2024 51 >39 mg/dL Final Comment: 40-59 mg/dL, Acceptable >59 mg/dL, High: Negative risk factor for coronary heart disease <40 mg/dL, Low: Positive risk factor for coronary heart disease LDL Cholesterol Date Value Ref Range Status 01/18/2024 103 (H) <100 mg/dL Final Comment: <100 mg/dL, Optimal 100-129 mg/dL, Near optimal/above optimal 130-159 mg/dL, Borderline high 160-189 mg/dL, High >189 mg/dL, Very high Secondary prevention optimal LDL Cholesterol levels are recommended to be < 70 mg/dL Triglyceride Date Value Ref Range Status 01/18/2024 98 <150 mg/dL Final Comment: <150 mg/dL, Normal 150-199 mg/dL, Borderline high 200-499 mg/dL, High >499 mg/dL, Very high Hemoglobin A1C: No results found for: HGBA1C TSH: No results found for: TSHREFL Prior Cardiac Testing EKG Assessment and Plan: 74 years old female patient with prior history of hypertensive heart disease with microvascular angina ASSESSMENT/PLAN: 1. Primary hypertension - ICD9: 401.9, ICD10: I10 (primary diagnosis) - Controlled - Continue current medications - Recommend home blood pressure monitoring, to bring results to next visit - Encouraged sodium restriction, DASH or Mediterranean diet - Recommend regular aerobic exercise - ECG B/O W INTERP (MED OFFICE) 2. Microvascular angina (HCC) - ICD9: 413.9, ICD10: I20.89 Stable continue nitrate - ECG B/O W INTERP (MED OFFICE) 3. SVT (supraventricular tachycardia) (HCC) - ICD9: 427.89, ICD10: I47.10 Stable continue current medical therapy - ECG B/O W INTERP (MED OFFICE) Jonna Benavides MD Follow up planning: ONE YEAR Electronically signed by Jonna Benavides MD on November 25, 2024, 9:20 AM The above note was partially created using a dictation recognition software. A reasonable attempt has been made to correct any errors. documented in this encounter [facility] 10-29-2024 Telephone encounter Note Pt called and she has been taking the Fosamax and needs a refill sent to the [facility]. Pt has 2 pills left. Her last rx was cancelled when the med update was put in. Gia Wilson LPN The patient has been identified by name and date of : Yes Caregiver verified no other encounters exist for this prescription request: Yes Caregiver confirmed with patient/requestor that no other refills are due, in the near future, with this provider at this time: Yes The last office visit in the department: 06/26/2024 Does the patient have a future office visit with this provider/department: Yes 12/27/2024 Requested Prescriptions Pending Prescriptions Disp Refills alendronate (FOSAMAX) 70 mg tablet 12 tablet 3 Sig: Take 1 tablet by mouth one time a week. In AM with cup of water on empty stomach. Nothing else by mouth and stay upright for 30 min. Gia Wilson LPN October 29, 2024 10:38 AM [facility] 10-29-2024 Miscellaneous Notes Pt called and she has been taking the Fosamax and needs a refill sent to the [facility]. Pt has 2 pills left. Her last rx was cancelled when the med update was put in. Gia Wilson LPN The patient has been identified by name and date of : Yes Caregiver verified no other encounters exist for this prescription request: Yes Caregiver confirmed with patient/requestor that no other refills are due, in the near future, with this provider at this time: Yes The last office visit in the department: 06/26/2024 Does the patient have a future office visit with this provider/department: Yes 12/27/2024 Requested Prescriptions Pending Prescriptions Disp Refills alendronate (FOSAMAX) 70 mg tablet 12 tablet 3 Sig: Take 1 tablet by mouth one time a week. In AM with cup of water on empty stomach. Nothing else by mouth and stay upright for 30 min. Gia Wilson LPN October 29, 2024 10:38 AM documented in this encounter [facility] 10-25-2024 History of Present illness Narrative Radiology Service Progress Note PATIENT NAME: Tashia Fernandez DATE OF SERVICE: October 25, 2024 TIME: 11:50 AM PATIENT IDENTITY VERIFICATION COMPLETED USING TWO (2) IDENTIFIERS: Name and Date of confirmed by patient verbally. FALL SCREENING: Has the patient had 2 falls in the last year or 1 fall with injury or currently using an Ambulatory Assistive Device (Walker, Cane, Wheelchair, Crutches, etc.)? No PATIENT GENDER DATA: Female. status: : No status: NO. PATIENT RELEVANT IMPLANT DATA REVIEWED: Not Applicable PATIENT PRESENTS WITH AN IMPLANTABLE OR ATTACHED RAIL TRACK MAINTAINER: No RADIOLOGY DEPARTMENT: Mammography PERIPHERAL IV DATA: Not applicable SIGNED BY: LISA Tariq) October 25, 2024 11:50 AM documented in this encounter [facility] 10-25-2024 Note HNO ID: [id number] Author: KETURAH ASHTON RT (R) Service: ? Author Type: Technologist Type: Progress Notes Filed: 10/25/2024 11:51 Note Text: Radiology Service Progress Note PATIENT NAME: Tashia Fernandez DATE OF SERVICE: October 25, 2024 TIME: 11:50 AM PATIENT IDENTITY VERIFICATION COMPLETED USING TWO (2) IDENTIFIERS: Name and Date of confirmed by patient verbally. FALL SCREENING: Has the patient had 2 falls in the last year or 1 fall with injury or currently using an Ambulatory Assistive Device (Walker, Cane, Wheelchair, Crutches, etc.)? No PATIENT GENDER DATA: Female. status: : No status: NO. PATIENT RELEVANT IMPLANT DATA REVIEWED: Not Applicable PATIENT PRESENTS WITH AN IMPLANTABLE OR ATTACHED RAIL TRACK MAINTAINER: No RADIOLOGY DEPARTMENT: Mammography PERIPHERAL IV DATA: Not applicable SIGNED BY: RT Chandni(R) October 25, 2024 11:50 AM [facility] 10-21-2024 Telephone encounter Note PDMP website checked and validated. All prescriptions have been APPROPRIATELY filled. No suspicious activity was identified. 10/21/2024 by Elisa Starr MD [facility] 10-21-2024 Miscellaneous Notes PDMP website checked and validated. All prescriptions have been APPROPRIATELY filled. No suspicious activity was identified. 10/21/2024 by Elisa Starr MD Prescription Refill Information The patient has been identified by name and date of : Yes Caregiver verified no other encounters exist for this prescription request: Yes Caregiver confirmed with patient/requestor that no other refills are due, in the near future, with this provider at this time: Yes The last office visit in the department: 06/26/24 Does the patient have a future office visit with this provider/department: Yes Requested Prescriptions Pending Prescriptions Disp Refills gabapentin (NEURONTIN) 300 mg capsule 90 capsule 0 Sig: Take 1 capsule by mouth daily at bedtime for 90 days. Ayde Elias LPN October 21, 2024 10:17 AM Patient has been identified by name and date of : Yes Patient phones for refill(s): Requested Prescriptions Pending Prescriptions Disp Refills gabapentin (NEURONTIN) 300 mg capsule 90 capsule 0 Sig: Take 1 capsule by mouth daily at bedtime for 90 days. Date of last office visit in primary care: 06/26/2024 Date of next office visit in primary care: 12/27/2024 Please advise. Thank you. Elizabeth Jason. documented in this encounter [facility] 10-21-2024 Telephone encounter Note Prescription Refill Information The patient has been identified by name and date of : Yes Caregiver verified no other encounters exist for this prescription request: Yes Caregiver confirmed with patient/requestor that no other refills are due, in the near future, with this provider at this time: Yes The last office visit in the department: 06/26/24 Does the patient have a future office visit with this provider/department: Yes Requested Prescriptions Pending Prescriptions Disp Refills gabapentin (NEURONTIN) 300 mg capsule 90 capsule 0 Sig: Take 1 capsule by mouth daily at bedtime for 90 days. Ayde Elias LPN October 21, 2024 10:17 AM [facility] 10-21-2024 Telephone encounter Note Patient has been identified by name and date of : Yes Patient phones for refill(s): Requested Prescriptions Pending Prescriptions Disp Refills gabapentin (NEURONTIN) 300 mg capsule 90 capsule 0 Sig: Take 1 capsule by mouth daily at bedtime for 90 days. Date of last office visit in primary care: 06/26/2024 Date of next office visit in primary care: 12/27/2024 Please advise. Thank you. Elizabeth Jason. [facility] 10-08-2024 Note HNO ID: [id number] Author: SHARIFA STEWART RN Service: ? Author Type: Registered Nurse Type: Progress Notes Filed: 10/08/2024 16:15 Note Text: CDM Telephonic Outreach Provider Action/FYI Contacted for: Routine Telephonic Outreach Contact made with patient: Yes Patient identified by name and date of . Discussed care with patient Are you experiencing any new or worsening symptoms you need to talk about today? No Disease Specific Do you check your blood pressure at home? No At times, but not while she has been away for the holiday. Do you have new or worsening shortness of breath with activity? No Do you feel like you are dehydrated for any reason, including not being able to eat or drink normally, or having less urine/much darker urine than normal for you? No Do you check your daily weight at home? No Based on assessment rn, the following disposition is advised: No symptoms or symptoms present, not severe. Routed to: No Action Needed LID[employer] Education Provided this Outreach: No Denies needs, questions, concerns at this time. Provided with [facility] reminder and number. Sharifa Stewart RN October 08, 2024 4:13 PM [facility] 10-08-2024 History of Present illness Narrative [facility] Telephonic Outreach Provider Action/FYI Contacted for: Routine Telephonic Outreach Contact made with patient: Yes Patient identified by name and date of . Discussed care with patient Are you experiencing any new or worsening symptoms you need to talk about today? No Disease Specific Do you check your blood pressure at home? No At times, but not while she has been away for the holiday. Do you have new or worsening shortness of breath with activity? No Do you feel like you are dehydrated for any reason, including not being able to eat or drink normally, or having less urine/much darker urine than normal for you? No Do you check your daily weight at home? No Based on assessment rn, the following disposition is advised: No symptoms or symptoms present, not severe. Routed to: No Action Needed LIDIA Education Provided this Outreach: No Denies needs, questions, concerns at this time. Provided with [facility] reminder and number. hSarifa Stewart RN October 08, 2024 4:13 PM documented in this encounter [facility] 10-08-2024 Note Patient Outreach ([facility] TASHIA FERNANDEZ ([id number]) 1950 F Date Time Provider Department 10/08/24 SHARIFA STEWART During your visit today, we recorded the following information about you: Sharifa Stewart RN 10/08/2024 4:15 PM Signed CDM Telephonic Outreach Provider Action/FYI Contacted for: Routine Telephonic Outreach Contact made with patient: Yes Patient identified by name and date of . Discussed care with patient Are you experiencing any new or worsening symptoms you need to talk about today? No Disease Specific Do you check your blood pressure at home? No At times, but not while she has been away for the holiday. Do you have new or worsening shortness of breath with activity? No Do you feel like you are dehydrated for any reason, including not being able to eat or drink normally, or having less urine/much darker urine than normal for you? No Do you check your daily weight at home? No Based on assessment rn, the following disposition is advised: No symptoms or symptoms present, not severe. Routed to: No Action Needed LIDIA Education Provided this Outreach: No Denies needs, questions, concerns at this time. Provided with [facility] reminder and number. Sharifa Stewart RN October 08, 2024 4:13 PM Allergies As of Date: 10/08/2024 Noted Allergy Reaction LIPITOR (ATORVASTATIN CALCIUM) 10/21/2014 14 - Other: See Comments Comments: muscle cramps SPIRONOLACTONE 03/21/2014 14 - Other: See Comments Comments: headache ACEON (PERINDOPRIL ERBUMINE) 11/02/2005 2 - Rash 3 - Cough CODEINE 12/09/2009 5 - Intolerance Comments: Chest pain LISINOPRIL 10/07/2005 3 - Cough Comments: dry hacking cough Date Reviewed: 09/16/2024 Reviewed by: Abhishek Yi MD - Fully Assessed Reason for Visit: CDM [Other] Cmt: Telephonic outreach Prescriptions as of 11/05/2024 - alendronate (FOSAMAX) 70 mg tablet Take 1 tablet by mouth one time a week. In AM with cup of water on empty stomach. Nothing else by mouth and stay upright for 30 min. - gabapentin (NEURONTIN) 300 mg capsule Take 1 capsule by mouth daily at bedtime for 90 days. - levothyroxine (SYNTHROID) 88 mcg tablet Take one tablet daily Monday-Monday and two tablets on Jamal - amLODIPine (NORVASC) 2.5 mg tablet Take one tablet daily in addition to 5 mg to equal 7.5 mg daily - amLODIPine (NORVASC) 5 mg tablet Take 1 tablet by mouth once daily. - pantoprazole DR (PROTONIX) 40 mg tablet Take 1 tablet by mouth once daily. - labetalol (TRANDATE) 200 mg tablet Take 1 tablet by mouth two times a day. - isosorbide mononitrate ER (IMDUR) 30 mg 24 hr tablet Take 1 tablet by mouth once daily. - potassium chloride ER (KLOR-CON) 20 mEq tablet Take 2 tablets by mouth two times a day. - meclizine (ANTIVERT) 25 mg tab Take 1 tablet by mouth three times a day as needed (vertigo). - blood sugar diagnostic (BLOOD GLUCOSE TEST) test strip Test blood sugar(s) 1 times daily. Dx: Prediabetes Insulin: No - Lancets lancets Test blood sugar(s) 1 times daily. Dx: Prediabetes Insulin: No - losartan (COZAAR) 100 mg tablet Take 1 tablet by mouth once daily. - polyethylene glycol 3350 17 gram/dose powder Take 17 g by mouth once daily. Dissolve dose in 4 - 8 ounces of liquid and take as directed. - doxylamine succinate (SLEEP AID ORAL) Take by mouth daily at bedtime. - calcium carbonate-Vit D3-minerals (CALTRATE) 600 mg calcium- 400 unit tab Take 2 tablets by mouth once daily. - ondansetron orally disintegrating (ZOFRAN ODT) 4 mg disintegrating tablet Take 1 tablet by mouth every 6 hours as needed for Nausea/Vomiting. - 0.9 % sodium chloride (NACL 0.9%) 0.9% solp Infuse 500 ml IV over [address] - Biotin 2,500 mcg cap Take 1 capsule by mouth once daily. - aspirin, enteric coated (ASPIRIN, ENTERIC COATED) 81 mg EC tablet Take 81 mg by mouth once daily. Meds Comments as of 01/03/2017: Biotin Problem List As Of Date 10/08/2024 Noted Resolved Primary hypertension [I10] Personal history of colonic polyps [Z86.0100] 06/02/2021 Postablative hypothyroidism [E89.0] 10/10/2005 Osteoporosis [M81.0] 01/16/2007 GASTRITIS ANTRAL( W/O Hemorrhage) [K29.60] 07/13/2007 11/02/2015 POLYP STOMACH [D13.1] 07/13/2007 12/19/2019 CERVICAL DISC DEGEN [M50.30] 02/11/2009 Degenerative arthritis of knee [M17.9] 05/24/2011 Trigeminal neuralgia [G50.0] 10/11/2011 Inadequate pelvic muscles [R29.898] 01/17/2012 Mixed stress and urge urinary incontinence [N39*02/03/2012 Uterine prolapse [N81.4] 02/03/2012 Cystocele, midline [N81.11] 02/03/2012 Gastroesophageal reflux disease [K21.9] 06/01/2012 Delayed gastric emptying [K30] 07/24/2012 Trochanteric bursitis of left hip [M70.62] 07/24/2012 10/15/2018 Chronic hypokalemia [E87.6] 09/25/2012 Thoracic radiculopathy due to degenerative join*06/09/2014 Tethered spinal cord (HCC) [Q06.8] (more content not included)... [facility] 09-19-2024 Telephone encounter Note Both Norvasc 5 mg and 2.5 mg were refilled for 90 days with 3 refills to [facility] on 09/05/24. Pt notified via [employer] to check with pharmacy for refills. Beatriz Veliz MA [facility] 09-19-2024 Miscellaneous Notes Both Norvasc 5 mg and 2.5 mg were refilled for 90 days with 3 refills to [facility] on 09/05/24. Pt notified via [employer] to check with pharmacy for refills. Beatriz Veliz MA Prescription Refill Information The patient has been identified by name and date of : Yes Caregiver verified no other encounters exist for this prescription request: Yes Caregiver confirmed with patient/requestor that no other refills are due, in the near future, with this provider at this time: Yes Patient asking for 3 months. The last office visit in the department: 09-16-24 Does the patient have a future office visit with this provider/department: Yes Requested Prescriptions Pending Prescriptions Disp Refills amLODIPine (NORVASC) 2.5 mg tablet 90 tablet 3 Sig: Take one tablet daily in addition to 5 mg to equal 7.5 mg daily amLODIPine (NORVASC) 5 mg tablet 90 tablet 3 Sig: Take 1 tablet by mouth once daily. Aaliyah Vidal September 19, 2024 8:19 AM documented in this encounter [facility] 09-19-2024 Telephone encounter Note Prescription Refill Information The patient has been identified by name and date of : Yes Caregiver verified no other encounters exist for this prescription request: Yes Caregiver confirmed with patient/requestor that no other refills are due, in the near future, with this provider at this time: Yes Patient asking for 3 months. The last office visit in the department: 09-16-24 Does the patient have a future office visit with this provider/department: Yes Requested Prescriptions Pending Prescriptions Disp Refills amLODIPine (NORVASC) 2.5 mg tablet 90 tablet 3 Sig: Take one tablet daily in addition to 5 mg to equal 7.5 mg daily amLODIPine (NORVASC) 5 mg tablet 90 tablet 3 Sig: Take 1 tablet by mouth once daily. Aaliyah Vidal September 19, 2024 8:19 AM [facility] 09-16-2024 Note HNO ID: [id number] Author: ABHISHEK YI MD Service: ? Author Type: Physician Type: Progress Notes Filed: 09/16/2024 12:45 Note Text: Abhishek Yi MD Department of Orthopaedics Orthopaedics [address] [facility] [address] Dept: [phone] Dept September 16, 2024 CHIEF COMPLAINT: Established Patient and Post Op of the Left Hand. HPI Patient is 5 weeks 3 day post op left ring trigger finger release. She denies any pain. ASSESSMENT: M65.342 Trigger ring finger of left hand (primary encounter diagnosis) SUMMARY/PLAN: She is just over 5 weeks and is doing great. She is stiff but she says this past week it has freed up. She has no complaints at this time with no locking or catching. Follow-up as needed. Exam: Healed incision and excellent range of motion. Supporting Information Below: Medications: Current Outpatient Medications Medication Sig levothyroxine (SYNTHROID) 88 mcg tablet Take one tablet daily Monday-Monday and two tablets on Monday amLODIPine (NORVASC) 2.5 mg tablet Take one tablet daily in addition to 5 mg to equal 7.5 mg daily amLODIPine (NORVASC) 5 mg tablet Take 1 tablet by mouth once daily. labetalol (TRANDATE) 200 mg tablet Take 1 tablet by mouth two times a day. isosorbide mononitrate ER (IMDUR) 30 mg 24 hr tablet Take 1 tablet by mouth once daily. alendronate (FOSAMAX) 70 mg tablet Take 70 mg by mouth one time a week. In AM with cup of water on empty stomach. Nothing else by mouth and stay upright for 30 min. gabapentin (NEURONTIN) 300 mg capsule Take 1 capsule by mouth daily at bedtime for 90 days. potassium chloride ER (KLOR-CON) 20 mEq tablet Take 2 tablets by mouth two times a day. meclizine (ANTIVERT) 25 mg tab Take 1 tablet by mouth three times a day as needed (vertigo). losartan (COZAAR) 100 mg tablet Take 1 tablet by mouth once daily. polyethylene glycol 3350 17 gram/dose powder Take 17 g by mouth once daily. Dissolve dose in 4 - 8 ounces of liquid and take as directed. doxylamine succinate (SLEEP AID ORAL) Take by mouth daily at bedtime. calcium carbonate-Vit D3-minerals (CALTRATE) 600 mg calcium- 400 unit tab Take 2 tablets by mouth once daily. Biotin 2,500 mcg cap Take 1 capsule by mouth once daily. aspirin, enteric coated (ASPIRIN, ENTERIC COATED) 81 mg EC tablet Take 81 mg by mouth once daily. pantoprazole DR (PROTONIX) 40 mg tablet Take 1 tablet by mouth once daily. (Patient not taking: Reported on 09/16/2024) blood sugar diagnostic (BLOOD GLUCOSE TEST) test strip Test blood sugar(s) 1 times daily. Dx: Prediabetes Insulin: No Lancets lancets Test blood sugar(s) 1 times daily. Dx: Prediabetes Insulin: No ondansetron orally disintegrating (ZOFRAN ODT) 4 mg disintegrating tablet Take 1 tablet by mouth every 6 hours as needed for Nausea/Vomiting. 0.9 % sodium chloride (NACL 0.9%) 0.9% solp Infuse 500 ml IV over [address] No current facility-administered medications for this visit. Allergies: Lipitor [Atorvastatin Calcium], Spironolactone, Aceon [Perindopril Erbumine], Codeine, and Lisinopril Abhishek Yi MD [facility] 09-16-2024 History of Present illness Narrative Abhishek Yi MD Department of Orthopaedics Orthopaedics [address] [facility] [address] Dept: [phone] Dept September 16, 2024 CHIEF COMPLAINT: Established Patient and Post Op of the Left Hand. HPI Patient is 5 weeks 3 day post op left ring trigger finger release. She denies any pain. ASSESSMENT: M65.342 Trigger ring finger of left hand (primary encounter diagnosis) SUMMARY/PLAN: She is just over 5 weeks and is doing great. She is stiff but she says this past week it has freed up. She has no complaints at this time with no locking or catching. Follow-up as needed. Exam: Healed incision and excellent range of motion. Supporting Information Below: Medications: Current Outpatient Medications Medication Sig levothyroxine (SYNTHROID) 88 mcg tablet Take one tablet daily Monday-Monday and two tablets on Monday amLODIPine (NORVASC) 2.5 mg tablet Take one tablet daily in addition to 5 mg to equal 7.5 mg daily amLODIPine (NORVASC) 5 mg tablet Take 1 tablet by mouth once daily. labetalol (TRANDATE) 200 mg tablet Take 1 tablet by mouth two times a day. isosorbide mononitrate ER (IMDUR) 30 mg 24 hr tablet Take 1 tablet by mouth once daily. alendronate (FOSAMAX) 70 mg tablet Take 70 mg by mouth one time a week. In AM with cup of water on empty stomach. Nothing else by mouth and stay upright for 30 min. gabapentin (NEURONTIN) 300 mg capsule Take 1 capsule by mouth daily at bedtime for 90 days. potassium chloride ER (KLOR-CON) 20 mEq tablet Take 2 tablets by mouth two times a day. meclizine (ANTIVERT) 25 mg tab Take 1 tablet by mouth three times a day as needed (vertigo). losartan (COZAAR) 100 mg tablet Take 1 tablet by mouth once daily. polyethylene glycol 3350 17 gram/dose powder Take 17 g by mouth once daily. Dissolve dose in 4 - 8 ounces of liquid and take as directed. doxylamine succinate (SLEEP AID ORAL) Take by mouth daily at bedtime. calcium carbonate-Vit D3-minerals (CALTRATE) 600 mg calcium- 400 unit tab Take 2 tablets by mouth once daily. Biotin 2,500 mcg cap Take 1 capsule by mouth once daily. aspirin, enteric coated (ASPIRIN, ENTERIC COATED) 81 mg EC tablet Take 81 mg by mouth once daily. pantoprazole DR (PROTONIX) 40 mg tablet Take 1 tablet by mouth once daily. (Patient not taking: Reported on 09/16/2024) blood sugar diagnostic (BLOOD GLUCOSE TEST) test strip Test blood sugar(s) 1 times daily. Dx: Prediabetes Insulin: No Lancets lancets Test blood sugar(s) 1 times daily. Dx: Prediabetes Insulin: No ondansetron orally disintegrating (ZOFRAN ODT) 4 mg disintegrating tablet Take 1 tablet by mouth every 6 hours as needed for Nausea/Vomiting. 0.9 % sodium chloride (NACL 0.9%) 0.9% solp Infuse 500 ml IV over [address] No current facility-administered medications for this visit. Allergies: Lipitor [Atorvastatin Calcium], Spironolactone, Aceon [Perindopril Erbumine], Codeine, and Lisinopril Abhishek Yi MD documented in this encounter [facility] 09-06-2024 Note HNO ID: [id number] Author: SHARIFA STEWART RN Service: ? Author Type: Registered Nurse Type: Progress Notes Filed: 09/06/2024 14:57 Note Text: CDM Telephonic Outreach Provider Action/FYI Contacted for: Routine Telephonic Outreach Contact made with patient: Yes Patient identified by name and date of . Discussed care with patient Are you experiencing any new or worsening symptoms you need to talk about today? No Disease Specific Do you check your blood pressure at home? Yes, Enter readings: Before BP medication, 146/86, yesterday evening 137/64 Do you have new or worsening shortness of breath with activity? No Do you feel like you are dehydrated for any reason, including not being able to eat or drink normally, or having less urine/much darker urine than normal for you? No Do you check your daily weight at home? No Based on assessment rn, the following disposition is advised: No symptoms or symptoms present, not severe. Routed to: No Action Needed LIDIA Education Provided this Outreach: No Stated her ankles are a bit swollen. She wonders if it is due to the Fosamax she is on. Suggested I message PCP, however patient states she will be seeing him soon and states she will wait until then. Advised her to contact [facility] if she changes her mind. Patient verbalizes understanding. Denies other needs, questions, concerns at this time Shariaf Stewart RN September 06, 2024 2:49 PM [facility] 09-06-2024 History of Present illness Narrative [facility] Telephonic Outreach Provider Pablo/CHAD Contacted for: Routine Telephonic Outreach Contact made with patient: Yes Patient identified by name and date of . Discussed care with patient Are you experiencing any new or worsening symptoms you need to talk about today? No Disease Specific Do you check your blood pressure at home? Yes, Enter readings: Before BP medication, 146/86, yesterday evening 137/64 Do you have new or worsening shortness of breath with activity? No Do you feel like you are dehydrated for any reason, including not being able to eat or drink normally, or having less urine/much darker urine than normal for you? No Do you check your daily weight at home? No Based on assessment rn, the following disposition is advised: No symptoms or symptoms present, not severe. Routed to: No Action Needed LIDIA Education Provided this Outreach: No Stated her ankles are a bit swollen. She wonders if it is due to the Fosamax she is on. Suggested I message PCP, however patient states she will be seeing him soon and states she will wait until then. Advised her to contact [facility] if she changes her mind. Patient verbalizes understanding. Denies other needs, questions, concerns at this time Sharifa Stewart RN September 06, 2024 2:49 PM documented in this encounter [facility] 09-06-2024 Note Patient Outreach ([facility]) TASHIA FERNANDEZ ([id number]) 1950 F Date Time Provider Department 09/06/24 SHARIFA STEWART [facility] During your visit today, we recorded the following information about you: Sharifa Stewart RN 09/06/2024 2:57 PM Signed CDM Telephonic Outreach Provider Action/FYI Contacted for: Routine Telephonic Outreach Contact made with patient: Yes Patient identified by name and date of . Discussed care with patient Are you experiencing any new or worsening symptoms you need to talk about today? No Disease Specific Do you check your blood pressure at home? Yes, Enter readings: Before BP medication, 146/86, yesterday evening 137/64 Do you have new or worsening shortness of breath with activity? No Do you feel like you are dehydrated for any reason, including not being able to eat or drink normally, or having less urine/much darker urine than normal for you? No Do you check your daily weight at home? No Based on assessment rn, the following disposition is advised: No symptoms or symptoms present, not severe. Routed to: No Action Needed LIDIA Education Provided this Outreach: No Stated her ankles are a bit swollen. She wonders if it is due to the Fosamax she is on. Suggested I message PCP, however patient states she will be seeing him soon and states she will wait until then. Advised her to contact [facility] if she changes her mind. Patient verbalizes understanding. Denies other needs, questions, concerns at this time Sharifa Stewart RN September 06, 2024 2:49 PM Allergies As of Date: 09/06/2024 Noted Allergy Reaction LIPITOR (ATORVASTATIN CALCIUM) 10/21/2014 14 - Other: See Comments Comments: muscle cramps SPIRONOLACTONE 03/21/2014 14 - Other: See Comments Comments: headache ACEON (PERINDOPRIL ERBUMINE) 11/02/2005 2 - Rash 3 - Cough CODEINE 12/09/2009 5 - Intolerance Comments: Chest pain LISINOPRIL 10/07/2005 3 - Cough Comments: dry hacking cough Date Reviewed: 08/19/2024 Reviewed by: Noelle Lloyd MA - Fully Assessed Reason for Visit: CDM [Other] Cmt: Telephonic outreach Prescriptions as of 09/06/2024 - levothyroxine (SYNTHROID) 88 mcg tablet Take one tablet daily Monday-Monday and two tablets on Monday - amLODIPine (NORVASC) 2.5 mg tablet Take one tablet daily in addition to 5 mg to equal 7.5 mg daily - amLODIPine (NORVASC) 5 mg tablet Take 1 tablet by mouth once daily. - pantoprazole DR (PROTONIX) 40 mg tablet Take 1 tablet by mouth once daily. - labetalol (TRANDATE) 200 mg tablet Take 1 tablet by mouth two times a day. - isosorbide mononitrate ER (IMDUR) 30 mg 24 hr tablet Take 1 tablet by mouth once daily. - alendronate (FOSAMAX) 70 mg tablet Take 70 mg by mouth one time a week. In AM with cup of water on empty stomach. Nothing else by mouth and stay upright for 30 min. - gabapentin (NEURONTIN) 300 mg capsule Take 1 capsule by mouth daily at bedtime for 90 days. - potassium chloride ER (KLOR-CON) 20 mEq tablet Take 2 tablets by mouth two times a day. - meclizine (ANTIVERT) 25 mg tab Take 1 tablet by mouth three times a day as needed (vertigo). - blood sugar diagnostic (BLOOD GLUCOSE TEST) test strip Test blood sugar(s) 1 times daily. Dx: Prediabetes Insulin: No - Lancets lancets Test blood sugar(s) 1 times daily. Dx: Prediabetes Insulin: No - losartan (COZAAR) 100 mg tablet Take 1 tablet by mouth once daily. - polyethylene glycol 3350 17 gram/dose powder Take 17 g by mouth once daily. Dissolve dose in 4 - 8 ounces of liquid and take as directed. - doxylamine succinate (SLEEP AID ORAL) Take by mouth daily at bedtime. - calcium carbonate-Vit D3-minerals (CALTRATE) 600 mg calcium- 400 unit tab Take 2 tablets by mouth once daily. - ondansetron orally disintegrating (ZOFRAN ODT) 4 mg disintegrating tablet Take 1 tablet by mouth every 6 hours as needed for Nausea/Vomiting. - 0.9 % sodium chloride (NACL 0.9%) 0.9% solp Infuse 500 ml IV over [address] - Biotin 2,500 mcg cap Take 1 capsule by mouth once daily. - aspirin, enteric coated (ASPIRIN, ENTERIC COATED) 81 mg EC tablet Take 81 mg by mouth once daily. 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 [facility] 09-05-2024 Telephone encounter Note Prescription Refill Information The patient has been identified by name and date of : Yes Caregiver verified no other encounters exist for this prescription request: Yes Caregiver confirmed with patient/requestor that no other refills are due, in the near future, with this provider at this time: Yes The last office visit in the department: 06/26/24 Does the patient have a future office visit with this provider/department: Yes Requested Prescriptions Pending Prescriptions Disp Refills levothyroxine (SYNTHROID) 88 mcg tablet 90 tablet 3 Sig: Take one tablet daily Monday-Monday and two tablets on Monday amLODIPine (NORVASC) 2.5 mg tablet 90 tablet 3 Sig: Take one tablet daily in addition to 5 mg to equal 7.5 mg daily amLODIPine (NORVASC) 5 mg tablet 90 tablet 3 Sig: Take 1 tablet by mouth once daily. pantoprazole DR (PROTONIX) 40 mg tablet 90 tablet 3 Sig: Take 1 tablet by mouth once daily. labetalol (TRANDATE) 200 mg tablet 180 tablet 3 Sig: Take 1 tablet by mouth two times a day. isosorbide mononitrate ER (IMDUR) 30 mg 24 hr tablet 90 tablet 3 Sig: Take 1 tablet by mouth once daily. Please note: Some of her medications are showing she should have a refill available. However, her bottle shows zero refills and the last fill date does not match up with our dates. Please send renewals on all of these. Ly Jones September 05, 2024 10:57 AM [facility] 09-05-2024 Miscellaneous Notes Prescription Refill Information The patient has been identified by name and date of : Yes Caregiver verified no other encounters exist for this prescription request: Yes Caregiver confirmed with patient/requestor that no other refills are due, in the near future, with this provider at this time: Yes The last office visit in the department: 06/26/24 Does the patient have a future office visit with this provider/department: Yes Requested Prescriptions Pending Prescriptions Disp Refills levothyroxine (SYNTHROID) 88 mcg tablet 90 tablet 3 Sig: Take one tablet daily Monday-Monday and two tablets on Monday amLODIPine (NORVASC) 2.5 mg tablet 90 tablet 3 Sig: Take one tablet daily in addition to 5 mg to equal 7.5 mg daily amLODIPine (NORVASC) 5 mg tablet 90 tablet 3 Sig: Take 1 tablet by mouth once daily. pantoprazole DR (PROTONIX) 40 mg tablet 90 tablet 3 Sig: Take 1 tablet by mouth once daily. labetalol (TRANDATE) 200 mg tablet 180 tablet 3 Sig: Take 1 tablet by mouth two times a day. isosorbide mononitrate ER (IMDUR) 30 mg 24 hr tablet 90 tablet 3 Sig: Take 1 tablet by mouth once daily. Please note: Some of her medications are showing she should have a refill available. However, her bottle shows zero refills and the last fill date does not match up with our dates. Please send renewals on all of these. Ly Jones September 05, 2024 10:57 AM documented in this encounter [facility] 09-04-2024 Note HNO ID: [id number] Author: NOELLE SUTTON MA Service: ? Author Type: Infectious Disease Technician Type: Progress Notes Filed: 09/04/2024 16:54 Note Text: POPULATION HEALTH NAVIGATION OUTREACH Action/FYI Spoke to patient and annual wellness exam for 2024 scheduled. Patient states she gets her dilated eye exam at [facility]. Patient has follow up already scheduled for BP. Reason for Outreach Care Gap/HCC or Scheduling Wellness Visits Care Gaps due: Medicare Annual Wellness Visit Diabetic Eye Exam Patient Contacted: Spoke to patient/parent/or legal guardian Patient identified by name and : Yes Care Gap/HCC/Scheduling Wellness actions taken: Patient scheduled/pended orders: Medicare Annual Wellness Visit 09/16/2024 in [facility] with ABHISHEK YI - Post op Left ring trigger finger release 11/25/2024 in [facility] with JONNA BENAVIDES - 1 year f/u 12/27/2024 in [facility] with ELISA STARR - 6 month [facility] - Annual Wellness Exam HCC related Navigation Signature: Noelle Sutton MA September 04, 2024 4:53 PM [facility] 09-04-2024 History of Present illness Narrative POPULATION HEALTH NAVIGATION OUTREACH Action/FYI Spoke to patient and annual wellness exam for 2024 scheduled. Patient states she gets her dilated eye exam at [facility]. Patient has follow up already scheduled for BP. Reason for Outreach Care Gap/HCC or Scheduling Wellness Visits Care Gaps due: Medicare Annual Wellness Visit Diabetic Eye Exam Patient Contacted: Spoke to patient/parent/or legal guardian Patient identified by name and : Yes Care Gap/HCC/Scheduling Wellness actions taken: Patient scheduled/pended orders: Medicare Annual Wellness Visit 09/16/2024 in [facility] with ABHISHEK YI - Post op Left ring trigger finger release 11/25/2024 in [facility] with JONNA BENAVIDES - 1 year f/u 12/27/2024 in [facility] with ELISA STARR - 6 month follow up 02/17/2025 in [facility] with ELISA STARR - Annual Wellness Exam HCC related Navigation Signature: Noelle Sutton MA September 04, 2024 4:53 PM documented in this encounter [facility] 09-04-2024 Note Patient Outreach ([facility]) TASHIA FERNANDEZ ([id number]) 1950 F Date Time Provider Department 09/04/24 NOELLE SUTTON During your visit today, we recorded the following information about you: Noelle Sutton MA 09/04/2024 4:54 PM Signed POPULATION HEALTH NAVIGATION OUTREACH Action/I Spoke to patient and annual wellness exam for 2024 scheduled. Patient states she gets her dilated eye exam at [facility]. Patient has follow up already scheduled for BP. Reason for Outreach Care Gap/HCC or Scheduling Wellness Visits Care Gaps due: Medicare Annual Wellness Visit Diabetic Eye Exam Patient Contacted: Spoke to patient/parent/or legal guardian Patient identified by name and : Yes Care Gap/HCC/Scheduling Wellness actions taken: Patient scheduled/pended orders: Medicare Annual Wellness Visit 09/16/2024 in [facility] with ABHISHEK YI - Post op Left ring trigger finger release 11/25[facility]2024 [facility]ON[facility]NAVID[facility] - 1 year f/u 12/27/2024 in [facility] with ELISA STARR - 6 month follow up 02/17/2025 in [facility] with ELISA STARR - Annual Wellness Exam HCC related Navigation Signature: Noelle Sutton MA September 04, 2024 4:53 PM Allergies As of Date: 09/04/2024 Noted Allergy Reaction LIPITOR (ATORVASTATIN CALCIUM) 10/21/2014 14 - Other: See Comments Comments: muscle cramps SPIRONOLACTONE 03/21/2014 14 - Other: See Comments Comments: headache ACEON (PERINDOPRIL ERBUMINE) 11/02/2005 2 - Rash 3 - Cough CODEINE 12/09/2009 5 - Intolerance Comments: Chest pain LISINOPRIL 10/07/2005 3 - Cough Comments: dry hacking cough Date Reviewed: 08/19/2024 Reviewed by: Noelle Lloyd MA - Fully Assessed Reason for Visit: Population Health Navigation Outreach [3910] Cmt: [employer]ati Prescriptions as of 09/04/2024 - alendronate (FOSAMAX) 70 mg tablet Take 70 mg by mouth one time a week. In AM with cup of water on empty stomach. Nothing else by mouth and stay upright for 30 min. - pantoprazole DR (PROTONIX) 40 mg tablet Take 40 mg by mouth once daily. - gabapentin (NEURONTIN) 300 mg capsule Take 1 capsule by mouth daily at bedtime for 90 days. - potassium chloride ER (KLOR-CON) 20 mEq tablet Take 2 tablets by mouth two times a day. - amLODIPine (NORVASC) 5 mg tablet Take 1 tablet by mouth once daily. - amLODIPine (NORVASC) 2.5 mg tablet Take one tablet daily in addition to 5 mg to equal 7.5 mg daily - labetalol (TRANDATE) 200 mg tablet Take 1 tablet by mouth two times a day. - isosorbide mononitrate ER (IMDUR) 30 mg 24 hr tablet Take 1 tablet by mouth once daily. - meclizine (ANTIVERT) 25 mg tab Take 1 tablet by mouth three times a day as needed (vertigo). - levothyroxine (SYNTHROID) 88 mcg tablet Take one tablet daily Monday-Monday and two tablets on Monday - blood sugar diagnostic (BLOOD GLUCOSE TEST) test strip Test blood sugar(s) 1 times daily. Dx: Prediabetes Insulin: No - Lancets lancets Test blood sugar(s) 1 times daily. Dx: Prediabetes Insulin: No - losartan (COZAAR) 100 mg tablet Take 1 tablet by mouth once daily. - polyethylene glycol 3350 17 gram/dose powder Take 17 g by mouth once daily. Dissolve dose in 4 - 8 ounces of liquid and take as directed. - doxylamine succinate (SLEEP AID ORAL) Take by mouth daily at bedtime. - calcium carbonate-Vit D3-minerals (CALTRATE) 600 mg calcium- 400 unit tab Take 2 tablets by mouth once daily. - ondansetron orally disintegrating (ZOFRAN ODT) 4 mg disintegrating tablet Take 1 tablet by mouth every 6 hours as needed for Nausea/Vomiting. - 0.9 % sodium chloride (NACL 0.9%) 0.9% solp Infuse 500 ml IV over [address] - Biotin 2,500 mcg cap Take 1 capsule by mouth once daily. - aspirin, enteric coated (ASPIRIN, ENTERIC COATED) 81 mg EC tablet Take 81 mg by mouth once daily. Meds Comments as of 01/03/2017: Biotin Problem List As Of Date 09/04/2024 Noted Resolved Primary hypertension [I10] Personal history of colonic polyps [Z86.0100] 06/02/2021 Postablative hypothyroidism [E89.0] 10/10/2005 Osteoporosis [M81.0] 01/16/2007 GASTRITIS ANTRAL( W/O Hemorrhage) [K29.60] 07/13/2007 11/02/2015 POLYP STOMACH [D13.1] 07/13/2007 12/19/2019 CERVICAL DISC DEGEN [M50.30] 02/11/2009 Degenerative arthritis of knee [M17.9] 05/24/2011 Trigeminal neuralgia [G50.0] 10/11/2011 Inadequate pelvic muscles [R29.898] 01/17/2012 Mixed stress and urge urinary incontinence [N39*02/03/2012 Uterine prolapse [N81.4] 02/03/2012 Cystocele, midline [N81.11] 02/03/2012 Gastroesophageal reflux disease [K21.9] 06/01/2012 Delayed gastric emptying [K30] 07/24/2012 Trochanteric bursitis of left hip [M70.62] 07/24/2012 10/15/2018 Chronic hypokalemia [E87.6] 09/25/2012 Thoracic radiculopathy due to degenerative join*06/09/2014 Tethered spinal cord (HCC (more content not included)... [facility] 08-19-2024 Note HNO ID: [id number] Author: ANJU HAIRSTON PA-C Service: ? Author Type: Physician Legislative Correspondent Type: Progress Notes Filed: 08/19/2024 12:28 Note Text: Anju Hairston PA-C Department of Orthopaedics Orthopaedics [address] [facility] [address] Dept: [phone] Dept August 19, 2024 CHIEF COMPLAINT: Post Op of the Left Hand. ASSESSMENT: M25.572 Acute left ankle pain (primary encounter diagnosis) M25.562 Acute pain of left knee SUMMARY/PLAN: Patient presents 10 days s/p left ring trigger finger release. Doing well, no pain, carmona is stiff. We discussed proper hand washing, no soaking of the operative hand. No heavy lifting, pushing or pulling with the operative hand, encourage gentle motion. We discussed scar massage. Follow up as planned. Having left knee and ankle pain, was dressing a few days ago and heard a pop in her ankle, ankle is swollen and bruised, painful to walk. Told her we can get some xrays but she will need to follow up to discuss plain of care. Exam: Incision site is well approximated without erythema or drainage. Mild but appropriate edema without ecchymosis. No locking or catching of the digits. Neurologically intact. Imaging: Deferred today Ms. Tashia Fernandez was advised as to contrast therapies and/or to take analgesics/anti-inflammatories as needed and all contraindications were reviewed. Supporting Information Below: Medications: Current Outpatient Medications Medication Sig alendronate (FOSAMAX) 70 mg tablet Take 70 mg by mouth one time a week. In AM with cup of water on empty stomach. Nothing else by mouth and stay upright for [address] (PROTONIX) 40 mg tablet Take 40 mg by mouth once daily. gabapentin (NEURONTIN) 300 mg capsule Take 1 capsule by mouth daily at bedtime for 90 days. potassium chloride ER (KLOR-CON) 20 mEq tablet Take 2 tablets by mouth two times a day. amLODIPine (NORVASC) 5 mg tablet Take 1 tablet by mouth once daily. amLODIPine (NORVASC) 2.5 mg tablet Take one tablet daily in addition to 5 mg to equal 7.5 mg daily labetalol (TRANDATE) 200 mg tablet Take 1 tablet by mouth two times a day. isosorbide mononitrate ER (IMDUR) 30 mg 24 hr tablet Take 1 tablet by mouth once daily. meclizine (ANTIVERT) 25 mg tab Take 1 tablet by mouth three times a day as needed (vertigo). levothyroxine (SYNTHROID) 88 mcg tablet Take one tablet daily Monday-Monday and two tablets on Monday losartan (COZAAR) 100 mg tablet Take 1 tablet by mouth once daily. polyethylene glycol 3350 17 gram/dose powder Take 17 g by mouth once daily. Dissolve dose in 4 - 8 ounces of liquid and take as directed. doxylamine succinate (SLEEP AID ORAL) Take by mouth daily at bedtime. calcium carbonate-Vit D3-minerals (CALTRATE) 600 mg calcium- 400 unit tab Take 2 tablets by mouth once daily. ondansetron orally disintegrating (ZOFRAN ODT) 4 mg disintegrating tablet Take 1 tablet by mouth every 6 hours as needed for Nausea/Vomiting. Biotin 2,500 mcg cap Take 1 capsule by mouth once daily. aspirin, enteric coated (ASPIRIN, ENTERIC COATED) 81 mg EC tablet Take 81 mg by mouth once daily. blood sugar diagnostic (BLOOD GLUCOSE TEST) test strip Test blood sugar(s) 1 times daily. Dx: Prediabetes Insulin: No Lancets lancets Test blood sugar(s) 1 times daily. Dx: Prediabetes Insulin: No 0.9 % sodium chloride (NACL 0.9%) 0.9% solp Infuse 500 ml IV over [address] No current facility-administered medications for this visit. Allergies: Lipitor [Atorvastatin Calcium], Spironolactone, Aceon [Perindopril Erbumine], Codeine, and Lisinopril This note was partially generated using [employer] voice recognition system, and there may be some incorrect words, spellings, and punctuation that were not noted in checking the note before saving. Anju Hairston PA-C [facility] 08-19-2024 History of Present illness Narrative Anju Hairston PA-C Department of Orthopaedics Orthopaedics [address] [facility] [address] Dept: [phone] Dept August 19, 2024 CHIEF COMPLAINT: Post Op of the Left Hand. ASSESSMENT: M25.572 Acute left ankle pain (primary encounter diagnosis) M25.562 Acute pain of left knee SUMMARY/PLAN: Patient presents 10 days s/p left ring trigger finger release. Doing well, no pain, carmona is stiff. We discussed proper hand washing, no soaking of the operative hand. No heavy lifting, pushing or pulling with the operative hand, encourage gentle motion. We discussed scar massage. Follow up as planned. Having left knee and ankle pain, was dressing a few days ago and heard a pop in her ankle, ankle is swollen and bruised, painful to walk. Told her we can get some xrays but she will need to follow up to discuss plain of care. Exam: Incision site is well approximated without erythema or drainage. Mild but appropriate edema without ecchymosis. No locking or catching of the digits. Neurologically intact. Imaging: Deferred today Ms. Tashia Fernandez was advised as to contrast therapies and/or to take analgesics/anti-inflammatories as needed and all contraindications were reviewed. Supporting Information Below: Medications: Current Outpatient Medications Medication Sig alendronate (FOSAMAX) 70 mg tablet Take 70 mg by mouth one time a week. In AM with cup of water on empty stomach. Nothing else by mouth and stay upright for [address] (PROTONIX) 40 mg tablet Take 40 mg by mouth once daily. gabapentin (NEURONTIN) 300 mg capsule Take 1 capsule by mouth daily at bedtime for 90 days. potassium chloride ER (KLOR-CON) 20 mEq tablet Take 2 tablets by mouth two times a day. amLODIPine (NORVASC) 5 mg tablet Take 1 tablet by mouth once daily. amLODIPine (NORVASC) 2.5 mg tablet Take one tablet daily in addition to 5 mg to equal 7.5 mg daily labetalol (TRANDATE) 200 mg tablet Take 1 tablet by mouth two times a day. isosorbide mononitrate ER (IMDUR) 30 mg 24 hr tablet Take 1 tablet by mouth once daily. meclizine (ANTIVERT) 25 mg tab Take 1 tablet by mouth three times a day as needed (vertigo). levothyroxine (SYNTHROID) 88 mcg tablet Take one tablet daily Monday-Monday and two tablets on Monday losartan (COZAAR) 100 mg tablet Take 1 tablet by mouth once daily. polyethylene glycol 3350 17 gram/dose powder Take 17 g by mouth once daily. Dissolve dose in 4 - 8 ounces of liquid and take as directed. doxylamine succinate (SLEEP AID ORAL) Take by mouth daily at bedtime. calcium carbonate-Vit D3-minerals (CALTRATE) 600 mg calcium- 400 unit tab Take 2 tablets by mouth once daily. ondansetron orally disintegrating (ZOFRAN ODT) 4 mg disintegrating tablet Take 1 tablet by mouth every 6 hours as needed for Nausea/Vomiting. Biotin 2,500 mcg cap Take 1 capsule by mouth once daily. aspirin, enteric coated (ASPIRIN, ENTERIC COATED) 81 mg EC tablet Take 81 mg by mouth once daily. blood sugar diagnostic (BLOOD GLUCOSE TEST) test strip Test blood sugar(s) 1 times daily. Dx: Prediabetes Insulin: No Lancets lancets Test blood sugar(s) 1 times daily. Dx: Prediabetes Insulin: No 0.9 % sodium chloride (NACL 0.9%) 0.9% solp Infuse 500 ml IV over [address] No current facility-administered medications for this visit. Allergies: Lipitor [Atorvastatin Calcium], Spironolactone, Aceon [Perindopril Erbumine], Codeine, and Lisinopril This note was partially generated using [employer] voice recognition system, and there may be some incorrect words, spellings, and punctuation that were not noted in checking the note before saving. Anju Hairston PA-C AMB ROOMING INTAKE FLOWSHEET DATA documented in this encounter [facility] 08-19-2024 History of Present illness Narrative Radiology Service Progress Note PATIENT NAME: Tashia Fernandez DATE OF SERVICE: August 19, 2024 TIME: 3:09 PM PATIENT IDENTITY VERIFICATION COMPLETED USING TWO (2) IDENTIFIERS: Name and Date of confirmed by patient verbally. FALL SCREENING: Has the patient had 2 falls in the last year or 1 fall with injury or currently using an Ambulatory Assistive Device (Walker, Cane, Wheelchair, Crutches, etc.)? Yes, Patient High Risk for Falls What interventions were put in place to prevent falls during this visit? Increased Observations by Caregivers PATIENT GENDER DATA: Female. status: : No status: NO. PATIENT RELEVANT IMPLANT DATA REVIEWED: Not Applicable PATIENT PRESENTS WITH AN IMPLANTABLE OR ATTACHED RAIL TRACK MAINTAINER: No RADIOLOGY DEPARTMENT: General X-ray: Exam(s) Completed: Lower Extremity X-Ray(s): Knee, AP / Lat / Tunne / Merchant Left and Wt. Bearing and Ankle, Left PERIPHERAL IV DATA: Not applicable SIGNED BY: RT Muriel(Andre) August 19, 2024 3:09 PM documented in this encounter [facility] 08-19-2024 Note HNO ID: [id number] Author: CK EDDY RT(Andre) Service: ? Author Type: Technologist Type: Progress Notes Filed: 08/19/2024 15:09 Note Text: Radiology Service Progress Note PATIENT NAME: Tashia Fernandez DATE OF SERVICE: August 19, 2024 TIME: 3:09 PM PATIENT IDENTITY VERIFICATION COMPLETED USING TWO (2) IDENTIFIERS: Name and Date of confirmed by patient verbally. FALL SCREENING: Has the patient had 2 falls in the last year or 1 fall with injury or currently using an Ambulatory Assistive Device (Walker, Cane, Wheelchair, Crutches, etc.)? Yes, Patient High Risk for Falls What interventions were put in place to prevent falls during this visit? Increased Observations by Caregivers PATIENT GENDER DATA: Female. status: : No status: NO. PATIENT RELEVANT IMPLANT DATA REVIEWED: Not Applicable PATIENT PRESENTS WITH AN IMPLANTABLE OR ATTACHED RAIL TRACK MAINTAINER: No RADIOLOGY DEPARTMENT: General X-ray: Exam(s) Completed: Lower Extremity X-Ray(s): Knee, AP / Lat / Tunne / Merchant Left and Wt. Bearing and Ankle, Left PERIPHERAL IV DATA: Not applicable SIGNED BY: RT Muriel(R) August 19, 2024 3:09 PM [facility] 08-19-2024 Note HNO ID: [id number] Author: NOELLE LLOYD MA Service: ? Author Type: Infectious Disease Technician Type: Progress Notes Filed: 08/19/2024 12:28 Note Text: AMB ROOMING INTAKE FLOWSHEET DATA [facility] 08-07-2024 Instructions Micheline Keys, LUIS MIGUEL.CASH ACCOUNTING CLERK - 08/07/2024 2:47 PM EDT Images from the original note were not included. [facility] PATIENT PREOPERATIVE INSTRUCTIONS Abhishek Yi MD has scheduled you for your procedure at this surgery center: [facility]: [phone] -- [address] [place] [address]. Please read below carefully for your personalized instructions. Dietary Restrictions: - No solid food after midnight. - You may have 12 ounces of clear liquids (water, clear juices such as apple juice or gatorade, carbonated beverages, clear tea, black coffee, jello) until 2 hours before scheduled arrival at facility. Medications: Unless instructed differently below, stay on all of your medications until your surgery. If you start any new medications after today's visit, please contact your surgeon. Pre-Surgery Med Instructions Medication Instructions pantoprazole DR (PROTONIX) 40 mg tablet Take the day of surgery with a small sip of water gabapentin (NEURONTIN) 300 mg capsule Take the day of surgery with a small sip of water potassium chloride ER (KLOR-CON) 20 mEq tablet Take the day of surgery with a small sip of water amLODIPine (NORVASC) 5 mg tablet Take the day of surgery with a small sip of water amLODIPine (NORVASC) 2.5 mg tablet Take the day of surgery with a small sip of water labetalol (TRANDATE) 200 mg tablet Take the day of surgery with a small sip of water isosorbide mononitrate ER (IMDUR) 30 mg 24 hr tablet Take the day of surgery with a small sip of water meclizine (ANTIVERT) 25 mg tab IF needed levothyroxine (SYNTHROID) 88 mcg tablet Take the day of surgery with a small sip of water blood sugar diagnostic (BLOOD GLUCOSE TEST) test strip Lancets lancets losartan (COZAAR) 100 mg tablet Do not take the day of surgery polyethylene glycol 3350 17 gram/dose powder Do not take the day of surgery doxylamine succinate (SLEEP AID ORAL) Do not take the day of surgery calcium carbonate-Vit D3-minerals (CALTRATE) 600 mg calcium- 400 unit tab Stop 7 days before surgery ondansetron orally disintegrating (ZOFRAN ODT) 4 mg disintegrating tablet IF needed Biotin 2,500 mcg cap Stop 7 days before surgery aspirin, enteric coated (ASPIRIN, ENTERIC COATED) 81 mg EC tablet Stop 7 days before surgery If you start any new medications after today's visit, please contact the surgeon's office. Blood Thinning Medications: - Stop NSAIDS (Ibuprofen, Advil, Aleve, Motrin, Celebrex, Mobic, etc.) 7 days before surgery, as directed by your surgeon. - Stop Aspirin 7 days before surgery, as directed by your surgeon. - Stop Vitamin E, ALL multi-vitamins, herbals and dietary supplements 7 days before surgery. - You may take Tylenol (Acetaminophen) or any of your pain medications that do not contain aspirin or NSAIDS as needed. Important Reminders: - Candy, mints, and tobacco products are NOT permitted the morning of surgery. - Hearing aids, dentures and glasses may be worn the morning of surgery. - NO jewelry, body piercings, makeup, hairpins or contacts are to be worn the day of surgery. If you develop symptoms such as a fever, cold, or flu, or have other changes to your health within TWO DAYS of scheduled surgery or the morning of surgery, please contact the surgery center above. Personal Belongings: -Please have photo ID and insurance cards. -If you do not have a copy of advance directives on file with us, please bring a copy with you on the day of surgery. - Leave ALL valuables and money at home or with family members. For Outpatient Procedures: - YOU MUST HAVE A RESPONSIBLE MOVIE EDITOR TAKE YOU HOME. A WALLCOVERING TEXTURER OR CLEANER AND PRESSER CANNOT BE MADE A RESPONSIBLE MOVIE EDITOR. - We recommend that a responsible person stays with you overnight to take care of you. - You cannot stay in a hotel alone after outpatient surgery. You will not be permitted to have your surgery, if you do not have someone to take care of you. Arrival Time for Surgery: - The Surgery Center or hospital where you are having surgery will call the afternoon before surgery (or Monday for Monday surgery) with a scheduled arrival time. - If you have not heard by 4 pm, please contact the surgery center above. Please be aware that emergency situations arise, which may delay or change your surgical time. If this happens, we will notify you as soon as possible and regret any inconvenience. If you already have an Advance Directive, please fax a copy to [phone] or email to for it to be added to your chart. If you do not have an Advance Directive, you can find the appropriate form and more information at [email or web address]. We recommend that you complete the Advance Directive form found on the website and bring it with you the day of your surgery. It can be witnessed and scanned into your chart that day. Micheline Keys APRN.CNP documented in this encounter [facility] 08-07-2024 History and physical note Images from the original note were not included. [facility] HISTORY AND PHYSICAL EXAMINATION SERVICE DATE: 08/07/2024 SERVICE TIME: 10:28 AM PRIMARY CARE PHYSICIAN: Elisa Starr MD Assessment Patient has the following medical conditions which may affect effie-operative course: Microvascular angina (HCC) Assessment: recently started Ranexa but stopped 2/2 constipation SE per pt 05/27/2024 Dr. Sleik, Cardiology Assessment and Plan: 74 years old female patient with microvascular angina and hypertensive heart disease ASSESSMENT/PLAN: 1. Primary hypertension - ICD9: 401.9, ICD10: I10 (primary diagnosis) - Controlled - Continue current medications - Recommend home blood pressure monitoring, to bring results to next visit - Encouraged sodium restriction, DASH or Mediterranean diet - Recommend regular aerobic exercise 2. Paroxysmal SVT (supraventricular tachycardia) (HCC) - ICD9: 427.0, ICD10: I47.10 Stable paroxysmal supraventricular tachycardia patient on beta-blockers 3. Pure hypercholesterolemia - ICD9: 272.0, ICD10: E78.00 Patient cannot take statin due to severe muscle cramp and side effect of medication 4. Microvascular angina (HCC) - ICD9: 413.9, ICD10: I20.89 Stable microvascular angina limiting patient for any physical activity Will add Ranexa 500 mg twice a day for symptomatic relief Jonna Benavides MD Follow up plannin MONTHS Electronically signed by Jonna Benavides MD on May 27, 2024, 11:49 AM Paroxysmal SVT (supraventricular tachycardia) (HCC) Assessment: controlled on rx HLD (hyperlipidemia) Assessment: diet controlled Primary hypertension Assessment: controlled on rx Last 14 BP Last 14 Encounter BP Readings: Date: BP: 08/07/2024 136/78 06/26/2024 126/70 05/29/2024 138/72 05/27/2024 136/75 03/06/2024 126/74 02/26/2024 150/88 01/03/2024 121/66 12/21/2023 132/78 11/29/2023 132/78 11/27/2023 124/75 07/27/2023 136/70 06/06/2023 140/78 05/29/2023 128/76[recheck[ 04/10/2023 128/76 ASHD (arteriosclerotic heart disease) Assessment: non-obstructing, medically managed, following cardiology Tethered spinal cord (HCC) Assessment: mid-thoracic spine, no surgery indicated per pt at this time Trigeminal neuralgia Assessment: hx, intermittent, no current tx Valvular heart disease Assessment: 1+MVR, trace-1+ TVR, 1+ AVR, trace PVR Recent Results (from the past [id number] hour(s)) ECHO Collection Time: 03/23/23 1:37 PM Impression CONCLUSIONS: - Technically difficult exam due to body habitus. - Exam indication: Syncope - The left ventricle is normal in size. There is mild left ventricular hypertrophy. Left ventricular systolic function is normal. EF = 66 5% (2D biplane) Grade I left ventricular diastolic dysfunction. - The right ventricle is normal in size. Right ventricular systolic function is normal. - The left atrial cavity is mildly dilated. - Exam was compared with the prior echocardiographic exam performed on 01/24/2022, no significant change. * * * Final * * * Mild pulmonary hypertension (HCC) Assessment: 03/2023 echo revealed Estimated right ventricular systolic pressure is 36 mmHg consistent with mild pulmonary hypertension. Following cardiology, asymptomatic Hiatal hernia Assessment: present with GERD symptoms Esophageal dysphagia Assessment: chronic, mg bits/extra liquids, evaluated for this 02/26/24 Dr. Kelley Patient is status post EGD with on January 03, 2024. She was noted to have a small hiatal hernia but did this because of esophageal dysphagia.Biopsies of her duodenum were normal stomach showed no signs of H. pylori and biopsies of her esophagus did not show any signs of eosinophils or lymphocytes. Objective:Blood pressure 150/88, pulse 75, temperature 36.5 C (97.7 F), SpO2 97%. Abdomen is soft and nontender Assessment:Esophageal dysphagia (primary encounter diagnosis) Plan: Patient is get a try to modify how she has been eating and using a little bit more liquids with swallowing. If she continues to have problems we will have to order an esophageal manometry. I will have her follow-up with me on an as-needed basis. Diverticulitis Assessment: recent flare 06/14/24 tx with atb, states all symptoms have resolved Gastroesophageal reflux disease Assessment: controlled on rx, small hiatal hernia present Chronic hypokalemia Assessment: hx, on rx Potassium Date Value Ref Range Status 05/29/2024 4.2 3.7 - 5.1 mmol/L Final Stage 3a chronic kidney disease (HCC) Assessment: Creatinine Date Value Ref Range Status 05/29/2024 1.08 (H) 0.58 - 0.96 mg/dL Final 05/16/2024 0.97 (H) 0.58 - 0.96 mg/dL Final 03/06/2024 1.07 (H) 0.58 - 0.96 mg/dL Final 01/18/2024 1.10 (H) 0.58 - 0.96 mg/dL Final Diabetes mellitus type II (HCC) Assessment: diet controlled Hemoglobin A1C (%) Date Value 05/29/2024 6.5 09/27/2019 6.2 Postablative hypothyroidism Assessment: stable on rx Osteoporosis Assessment: recently rx Fosamax has not started yet Obesity, Class I, BMI 30-34.9 Assessment: Body mass index is 33.79 kg/m . Lung nodule < 6cm on CT Assessment: under surveillance by PCP Interstitial pulmonary disease, unspecified (HCC) Assessment: no documentation found supporting dx except from Dr. Hartmann 04/2016 Testing and notes reviewed. 1. Baseline spirometry is normal, no response to inhaled bronchodilator. 2. Methacholine Inhalation Challenge is negative, excluding asthma. 3. CXR is clear. This and normal spirometry excludes interstitial lung disease, COPD Mar Activity Status Index: METS: Climb a flight of stairs or walk up a hill (5.50 METs) DASI Score: 5.5 Patient denies any chest pain or undue shortness of breath with the above physical activity. Clinical Frailty Scale: 3. Well, with treated comorbid disease STOP-Bang Score: Has or is being treated for high blood pressure Patient over 50 years old Denies snoring loudly Denies feeling tired, fatigued, or sleepy during the daytime Has not been observed to stop breathing or choking/gasping during sleep BMI less than or equal to 35 kg/m^2 Does not have a large neck Non-male patient STOP-Bang Score: 2 [id number] Score: Age: >=75 Sex: female CHF history: No Hypertension history: Yes Stroke/TIA/thromboembolism history: No Vascular disease history: No Diabetes history: No [id number] Score: 4 ARISCAT Score: Age: 51-80 Preoperative SpO2: >=96% Respiratory infection in the last month: No Preoperative anemia: No Surgical incision: peripheral Duration of surgery: <2 hrs Emergency procedure: No ARISCAT Score: 3 ANESTHESIA FINDINGS: Intubation History: No history of difficult intubation Significant Anesthesia Considerations: none Airway History: No history of difficult airway I - PHYSICAL EVALUATION AIRWAY Patient intubated: No. Tracheostomy tube not present Mallampati: II. TM distance: >3 FB. Neck ROM: full ROM without neurological symptoms. Mouth opening: adequate. Short neck: no. Thick neck: no Alfredo present: no Lip Bite Test: I Microretrognathia/Micronagthia/Rec essed Chin: No DENTAL Dentures, upper: complete. Dentures, lower: complete. II - ANESTHESIA PLAN Anesthetic Plan: other Beta Gustavo Monitoring Plan Post Procedure Analgesic Plan Informed Consent Anesthetic risks, benefits, alternatives, personnel and consent discussed: yes. Patient / Responsible Republican agrees to proceed: yes Patient / Surrogate agrees to blood products: blood products not planned Discussed the possibility of lip / dental damage: yes Prepared for Surgery: optimally prepared for surgery, pending [see comment]. CONSULTS: Patient does not require consults for optimization at this time Planned Anesthetic: other anesthesia choice The Following Tests/Procedures Have Been Initiated: Orders Placed This Encounter pantoprazole DR (PROTONIX) 40 mg tablet Sig: Take 40 mg by mouth once daily. alendronate (FOSAMAX) 70 mg tablet Sig: Take 70 mg by mouth one time a week. In AM with cup of water on empty stomach. Nothing else by mouth and stay upright for 30 min. REASON FOR VISIT: Tashia Fernandez is a 74 year old female who is scheduled for Procedure(s): RELEASE TRIGGER FINGER (Left) at the request of Dr. Abhishek Yi for consultation. My final recommendation will be communicated back to the requesting physician by way of shared medical record or letter. Subjective The patient has the following: COVID-19 Immunization Status Overdue - Covid-19 Vaccine () Overdue since 07/07/2024 10/24/2022 Postponed until 10/24/2023 by PodlogarElizabeth APRN.CASH ACCOUNTING CLERK (Declined at this time) 11/18/2021 Imm Admin: COVID-19 original vaccine, age 12+ yr, monovalent ([employer] - [place] [employer]) 03/02/2021 Imm Admin: COVID-19 original vaccine, age 12+ yr, monovalent ([employer] - [place] [employer]) Only the first 3 history entries have been loaded, but more history exists. CHIEF COMPLAINT: Pre-op exam HPI: Tashia Fernandez is a 74 year old seen for PAC due to scheduled above surgery because of trigger finger. 07/29/24, Dr. Abhishek Yi HPI Patient here for follow up left ring finger. Patient was given an injection by Anju and she has a knot where she had the injection. She has nerve pain that is burning in her index and small fingers. Her ring finger is still locking. Continuing to wear oval 8 finger splint at bedtime. Taking Tylenol for the pain and helps sometimes. REVIEW OF SYSTEMS: General: No weight loss, malaise or fevers. 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 No neurological symptoms or problems. Respiratory: No history of current cough or dyspnea, or pneumonia in the past 6 weeks. No history of respiratory/pulmonary symptoms or problems. Cardiovascular: Positive for: angina (microvascular), anticoagulation therapy (ASA), CAD, hypertension and murmur/valvular heart disease Patient's last office visit The following tests and/or procedures were not performed: cardiac stents. Negative for: arrhythmia, atrial fibrillation, chest pain, CHF, congenital heart defect, DVT/PE, hyperlipidemia, recent [place], PVD, open heart surgery and valve surgery. GI: Positive for: diverticulitis and GERD (on rx, hiatal hernia) Negative for: abdominal pain, dysphagia, hepatitis, irritable bowel syndrome, inflammatory bowel disease, liver disease, nausea, pancreatitis, vomiting and ETOH >2 drinks/day. : Positive for: renal failure. Patient's renal failure is chronic. Negative for: urinary incontinence, nephrolithiasis and urinary tract infection. 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 Endocrine: +prediabetes, diet controlled Positive for: hypothyroidism (on rx). Negative for: diabetes mellitus. Hematology: Positive for: chronic anti-coagulation/platelet meds. Patient is on anti-coagulation/platelet medication(s): Aspirin. Negative for: anemia, bruises/bleeds easily and transfusion of at least 4 units within 72 hours prior to surgery. Oncology: No history of CA metastasis, chemo within 30 days, or radiotherapy within 90 days. No history of oncological symptoms or problems. Psych: No history of psychiatric symptoms or problems. Musculoskeletal: +osteoporosis, new rx, has not started Positive for: back pain (on rx). Skin: Negative for lesions, rash and itching. PAST MEDICAL HISTORY Diagnosis Date Contact dermatitis and other eczema Degenerative arthritis of knee 05/24/2011 Delayed gastric emptying 07/24/2012 Diabetes mellitus type II (HCC) 05/31/2024 Diarrhea Diverticulitis Diverticulosis of colon (without mention of hemorrhage) Diverticulosis Dysphagia, unspecified 08/29/2017 Elevated alkaline phosphatase level 07/12/2018 Essential hypertension, benign GERD (gastroesophageal reflux disease) Hyperlipidemia Hypokalemia 09/25/2012 Hypothyroidism Impaired fasting glucose 11/19/2015 Inadequate pelvic muscles 01/17/2012 Lumbar disc disease with radiculopathy 09/01/2016 Lung nodule < 6cm on CT 10/15/2018 10/07/18: incidental 4.5 mm nodule RML thyrotoxicosis Nonrheumatic mitral (valve) insufficiency Obesity Other osteoporosis 12/21/2006 Pancreatitis Paroxysmal SVT (supraventricular tachycardia) ([facility]) Personal history of colonic polyps Colon polyps POLYP STOMACH 07/13/2007 Stage 3a chronic kidney disease (HCC) Statin intolerance 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--surgery not needed (2016) Trigeminal neuralgia 10/11/2011 Trochanteric bursitis of left hip 07/24/2012 Unspecified hemorrhoids without mention of complication Hemorrhoids PAST SURGICAL HISTORY Procedure Laterality Date COLONOSCOPY FLX DX W/COLLJ SPEC WHEN PFRMD 12/2018 Colonoscopy COLONOSCOPY FLX DX W/COLLJ SPEC WHEN PFRMD 07/13/2007 Lax colon COLONOSCOPY FLX DX W/COLLJ SPEC WHEN PFRMD 03/26/2014 Colonoscopy COLONOSCOPY FLX DX W/COLLJ SPEC WHEN PFRMD 12/2018 [id number] 10 years COLONOSCOPY GEN ANES 04/28/2021 DECOMPRESSION PLANTAR DIGITAL NERVE 1999 heel spur/ plantar fasciitis repair Rt EGD 06/02/2021 EGD TRANSORAL BIOPSY SINGLE/MULTIPLE 07/13/2007 Gastritis, fundic gland polyps EGD W/O [facility] SPEC VARICIES INJ 01/03/2024 Dr. Kelley ESOPHAGOGASTRODUODENOSCOPY TRANSORAL DIAGNOSTIC 03/26/2014 EGD EYE SURGERY HX LAPAROSCOPY SURG CHOLECYSTECTOMY Cholecystectomy, lap LIG/TRNSXJ FLP TUBE ABDL/VAG APPR UNI/BI LIGATE FALLOPIAN TUBE NEUROPLASTY &/TRANSPOS MEDIAN NRV CARPAL TUNNE Carpal tunnel decomp bilateral OPEN REPAIR OF ROTATOR CUFF ACUTE 1991 Rotator cuff repair, right STRESS TEST,COMPLETE_*FL FAMILY HISTORY Problem Relation Age of Onset Diabetes Mother Heart Mother Stroke Mother Hypertension Mother other (MVA) Father Hypertension Sister Heart Sister Hypertension Sister Heart Sister Hypertension Brother Heart Brother Hypertension Brother Cancer Brother Oral cancer Cancer Paternal Grandfather skin Breast Cancer Maternal Aunt Asthma No Family History Social History Tobacco Use Smoking status: Former Current packs/day: 0.10 Average packs/day: 0.1 packs/day for 1 year (0.1 ttl pk-yrs) Types: Cigarettes Smokeless tobacco: Never Tobacco comments: Smoked 1 year or less in 1980s. Spouse was smoker in home for 39 years. Father smoked in childhood home. Vaping Use Vaping status: Never Used Substance Use Topics Alcohol use: No Drug use: No Prior to Admission medications as of 08/08/24 1009 Medication Sig Last Dose Taking pantoprazole DR (PROTONIX) 40 mg tablet Take 40 mg by mouth once daily. Taking Yes gabapentin (NEURONTIN) 300 mg capsule Take 1 capsule by mouth daily at bedtime for 90 days. Taking Yes potassium chloride ER (KLOR-CON) 20 mEq tablet Take 2 tablets by mouth two times a day. Taking Yes amLODIPine (NORVASC) 5 mg tablet Take 1 tablet by mouth once daily. Taking Yes amLODIPine (NORVASC) 2.5 mg tablet Take one tablet daily in addition to 5 mg to equal 7.5 mg daily Taking Yes labetalol (TRANDATE) 200 mg tablet Take 1 tablet by mouth two times a day. Taking Yes isosorbide mononitrate ER (IMDUR) 30 mg 24 hr tablet Take 1 tablet by mouth once daily. Taking Yes meclizine (ANTIVERT) 25 mg tab Take 1 tablet by mouth three times a day as needed (vertigo). Taking Yes levothyroxine (SYNTHROID) 88 mcg tablet Take one tablet daily Monday-Monday and two tablets on Monday Taking Yes blood sugar diagnostic (BLOOD GLUCOSE TEST) test strip Test blood sugar(s) 1 times daily. Dx: Prediabetes Insulin: No Taking Yes Lancets lancets Test blood sugar(s) 1 times daily. Dx: Prediabetes Insulin: No Taking Yes losartan (COZAAR) 100 mg tablet Take 1 tablet by mouth once daily. Taking Yes polyethylene glycol 3350 17 gram/dose powder Take 17 g by mouth once daily. Dissolve dose in 4 - 8 ounces of liquid and take as directed. Taking Yes doxylamine succinate (SLEEP AID ORAL) Take by mouth daily at bedtime. Taking Yes calcium carbonate-Vit D3-minerals (CALTRATE) 600 mg calcium- 400 unit tab Take 2 tablets by mouth once daily. Taking Yes ondansetron orally disintegrating (ZOFRAN ODT) 4 mg disintegrating tablet Take 1 tablet by mouth every 6 hours as needed for Nausea/Vomiting. Taking Yes Biotin 2,500 mcg cap Take 1 capsule by mouth once daily. Taking Yes aspirin, enteric coated (ASPIRIN, ENTERIC COATED) 81 mg EC tablet Take 81 mg by mouth once daily. Taking Yes alendronate (FOSAMAX) 70 mg tablet Take 70 mg by mouth one time a week. In AM with cup of water on empty stomach. Nothing else by mouth and stay upright for 30 min. 0.9 % sodium chloride (NACL 0.9%) 0.9% solp Infuse 500 ml IV over [address] Medication Comments documented by Vani Mayfield MA on 01/03/2017 at 0942. Biotin ALLERGIES Allergen Reactions Lipitor [Atorvastat* Other: See Comments muscle cramps Spironolactone Other: See Comments headache Aceon [Perindopril * Rash, Cough Codeine Intolerance Chest pain Lisinopril Cough dry hacking cough Objective PHYSICAL EXAM: General: alert and oriented (x3), healthy appearance and obese. Pertinent negatives noted - not distressed. Skin: normal color, no rash or lesions. HEENT: EOM intact and pupils equal round. Pertinent negatives noted - no carotid bruit. Cardiovascular: regular rate and rhythm, normal S1 and S2, no rub, murmurs, or gallop. Respiratory: normal breath sounds, no wheezes or crackles. No chest wall deformity or tenderness. Abdomen: soft. Pertinent negatives noted - not tender. Extremities: no deformity, no edema or tenderness, no joint swelling or clubbing. Neurological: normal cognition and motor skills. Gait normal. No weakness or sensory deficit. PAIN ASSESSMENT: Pain Pain Level: 6 Pain Location: Hand-Left Description: Sharp, Burning Duration Amount of Time: 7 Duration Units: Months Frequency: Continuous Intervention/Comfort measure: Medication VITALS: BP 136/78 Pulse 74 Temp (Src) 96.8 (Temporal) Resp 16 Ht 5' 0 (1.52m) Wt 173 lb (78.5kg) SpO2 97% BMI 33.79 kg/(m^2). Diagnostic tests reviewed for today's visit: Lab Value Units Date High Low HB 12.1 g/dL 05/29/2024 15.5 11.5 HCT 38.3 % 05/29/2024 46.0 36.0 WBC 7.43 k/uL 05/29/2024 11.00 3.70 PLT 305 k/uL 05/29/2024 400 150 NA 134 mmol/L 05/29/2024 144 136 K 4.2 mmol/L 05/29/2024 5.1 3.7 GLUC 90 mg/dL 05/29/2024 99 74 BUN 15 mg/dL 05/29/2024 21 7 CREAT 1.08 mg/dL 05/29/2024 0.96 0.58 PTSEC No results within date range. INR No results within date range. APTT No results within date range. ALT 13 U/L 05/16/2024 38 7 AST 16 U/L 05/16/2024 35 13 TBILI 0.2 mg/dL 05/16/2024 1.3 0.2 TSH 2.470 mIU/L 05/29/2024 4.200 0.270 Lab Value Units Date High Low HCGQT No results within date range. UHCG No results within date range. HCG, BODY* No results within date range. Lab Value Units Date High Low ABORHD No results within date range. ABSCREEN No results within date range. Hemoglobin A1C (%) Date Value 05/29/2024 6.5 01/18/2024 6.2 05/29/2023 6.4 09/27/2022 5.9 04/25/2022 6.2 09/27/2019 6.2 03/22/2018 6.0 06/02/2016 6.6 11/09/2015 6.1 No results found for this or any previous visit (from the past 8760 hour(s)). Recent Results (from the past 14420 hour(s)) ECHO Collection Time: 03/23/23 1:37 PM Impression CONCLUSIONS: - Technically difficult exam due to body habitus. - Exam indication: Syncope - The left ventricle is normal in size. There is mild left ventricular hypertrophy. Left ventricular systolic function is normal. EF = 66 5% (2D biplane) Grade I left ventricular diastolic dysfunction. - The right ventricle is normal in size. Right ventricular systolic function is normal. - The left atrial cavity is mildly dilated. - Exam was compared with the prior echocardiographic exam performed on 01/24/2022, no significant change. * * * Final * * * Instructions Given to Patient: Instructions located in the after visit summary. Patient given verbal and written preop instructions and voices comprehension and compliance. SIGNATURE: Micheline Keys APRN.CNP PATIENT NAME: Tashia Fernandez DATE: August 07, 2024 TIME: 2:45 PM PAGER/CONTACT #: T [facility] 08-07-2024 History and physical note Images from the original note were not included. [facility] HISTORY AND PHYSICAL EXAMINATION SERVICE DATE: 08/07/2024 SERVICE TIME: 10:28 AM PRIMARY CARE PHYSICIAN: Elisa Starr MD Assessment Patient has the following medical conditions which may affect effie-operative course: Microvascular angina (HCC) Assessment: recently started Ranexa but stopped 2/2 constipation SE per pt 05/27/2024 Dr. Benavides, Cardiology Assessment and Plan: 74 years old female patient with microvascular angina and hypertensive heart disease ASSESSMENT/PLAN: 1. Primary hypertension - ICD9: 401.9, ICD10: I10 (primary diagnosis) - Controlled - Continue current medications - Recommend home blood pressure monitoring, to bring results to next visit - Encouraged sodium restriction, DASH or Mediterranean diet - Recommend regular aerobic exercise 2. Paroxysmal SVT (supraventricular tachycardia) (HCC) - ICD9: 427.0, ICD10: I47.10 Stable paroxysmal supraventricular tachycardia patient on beta-blockers 3. Pure hypercholesterolemia - ICD9: 272.0, ICD10: E78.00 Patient cannot take statin due to severe muscle cramp and side effect of medication 4. Microvascular angina (HCC) - ICD9: 413.9, ICD10: I20.89 Stable microvascular angina limiting patient for any physical activity Will add Ranexa 500 mg twice a day for symptomatic relief Jonna Benavides MD Follow up plannin MONTHS Electronically signed by Jonna Benavides MD on May 27, 2024, 11:49 AM Paroxysmal SVT (supraventricular tachycardia) (HCC) Assessment: controlled on rx HLD (hyperlipidemia) Assessment: diet controlled Primary hypertension Assessment: controlled on rx Last 14 BP Last 14 Encounter BP Readings: Date: BP: 08/07/2024 136/78 06/26/2024 126/70 05/29/2024 138/72 05/27/2024 136/75 03/06/2024 126/74 02/26/2024 150/88 01/03/2024 121/66 12/21/2023 132/78 11/29/2023 132/78 11/27/2023 124/75 07/27/2023 136/70 06/06/2023 140/78 05/29/2023 128/76[recheck[ 04/10/2023 128/76 ASHD (arteriosclerotic heart disease) Assessment: non-obstructing, medically managed, following cardiology Tethered spinal cord (HCC) Assessment: mid-thoracic spine, no surgery indicated per pt at this time Trigeminal neuralgia Assessment: hx, intermittent, no current tx Valvular heart disease Assessment: 1+MVR, trace-1+ TVR, 1+ AVR, trace PVR Recent Results (from the past 26827 hour(s)) ECHO Collection Time: 03/23/23 1:37 PM Impression CONCLUSIONS: - Technically difficult exam due to body habitus. - Exam indication: Syncope - The left ventricle is normal in size. There is mild left ventricular hypertrophy. Left ventricular systolic function is normal. EF = 66 5% (2D biplane) Grade I left ventricular diastolic dysfunction. - The right ventricle is normal in size. Right ventricular systolic function is normal. - The left atrial cavity is mildly dilated. - Exam was compared with the prior echocardiographic exam performed on 01/24/2022, no significant change. * * * Final * * * Mild pulmonary hypertension (HCC) Assessment: 03/2023 echo revealed Estimated right ventricular systolic pressure is 36 mmHg consistent with mild pulmonary hypertension. Following cardiology, asymptomatic Hiatal hernia Assessment: present with GERD symptoms Esophageal dysphagia Assessment: chronic, mg bits/extra liquids, evaluated for this 02/26/24 Dr. Kelley Patient is status post EGD with on January 03, 2024. She was noted to have a small hiatal hernia but did this because of esophageal dysphagia.Biopsies of her duodenum were normal stomach showed no signs of H. pylori and biopsies of her esophagus did not show any signs of eosinophils or lymphocytes. Objective:Blood pressure 150/88, pulse 75, temperature 36.5 C (97.7 F), SpO2 97%. Abdomen is soft and nontender Assessment:Esophageal dysphagia (primary encounter diagnosis) Plan: Patient is get a try to modify how she has been eating and using a little bit more liquids with swallowing. If she continues to have problems we will have to order an esophageal manometry. I will have her follow-up with me on an as-needed basis. Diverticulitis Assessment: recent flare 06/14/24 tx with atb, states all symptoms have resolved Gastroesophageal reflux disease Assessment: controlled on rx, small hiatal hernia present Chronic hypokalemia Assessment: hx, on rx Potassium Date Value Ref Range Status 05/29/2024 4.2 3.7 - 5.1 mmol/L Final Stage 3a chronic kidney disease (HCC) Assessment: Creatinine Date Value Ref Range Status 05/29/2024 1.08 (H) 0.58 - 0.96 mg/dL Final 05/16/2024 0.97 (H) 0.58 - 0.96 mg/dL Final 03/06/2024 1.07 (H) 0.58 - 0.96 mg/dL Final 01/18/2024 1.10 (H) 0.58 - 0.96 mg/dL Final Diabetes mellitus type II (HCC) Assessment: diet controlled Hemoglobin A1C (%) Date Value 05/29/2024 6.5 09/27/2019 6.2 Postablative hypothyroidism Assessment: stable on rx Osteoporosis Assessment: recently rx Fosamax has not started yet Obesity, Class I, BMI 30-34.9 Assessment: Body mass index is 33.79 kg/m . Lung nodule < 6cm on CT Assessment: under surveillance by PCP Interstitial pulmonary disease, unspecified (HCC) Assessment: no documentation found supporting dx except from Dr. Hartmann 04/2016 Testing and notes reviewed. 1. Baseline spirometry is normal, no response to inhaled bronchodilator. 2. Methacholine Inhalation Challenge is negative, excluding asthma. 3. CXR is clear. This and normal spirometry excludes interstitial lung disease, COPD Mar Activity Status Index: METS: Climb a flight of stairs or walk up a hill (5.50 METs) DASI Score: 5.5 Patient denies any chest pain or undue shortness of breath with the above physical activity. Clinical Frailty Scale: 3. Well, with treated comorbid disease STOP-Bang Score: Has or is being treated for high blood pressure Patient over 50 years old Denies snoring loudly Denies feeling tired, fatigued, or sleepy during the daytime Has not been observed to stop breathing or choking/gasping during sleep BMI less than or equal to 35 kg/m^2 Does not have a large neck Non-male patient STOP-Bang Score: 2 [id number] Score: Age: >=75 Sex: female CHF history: No Hypertension history: Yes Stroke/TIA/thromboembolism history: No Vascular disease history: No Diabetes history: No [id number] Score: 4 ARISCAT Score: Age: 51-80 Preoperative SpO2: >=96% Respiratory infection in the last month: No Preoperative anemia: No Surgical incision: peripheral Duration of surgery: <2 hrs Emergency procedure: No ARISCAT Score: 3 ANESTHESIA FINDINGS: Intubation History: No history of difficult intubation Significant Anesthesia Considerations: none Airway History: No history of difficult airway I - PHYSICAL EVALUATION AIRWAY Patient intubated: No. Tracheostomy tube not present Mallampati: II. TM distance: >3 FB. Neck ROM: full ROM without neurological symptoms. Mouth opening: adequate. Short neck: no. Thick neck: no Alfredo present: no Lip Bite Test: I Microretrognathia/Micronagthia/Rec essed Chin: No DENTAL Dentures, upper: complete. Dentures, lower: complete. II - ANESTHESIA PLAN Anesthetic Plan: other Beta Gustavo Monitoring Plan Post Procedure Analgesic Plan Informed Consent Anesthetic risks, benefits, alternatives, personnel and consent discussed: yes. Patient / Responsible Republican agrees to proceed: yes Patient / Surrogate agrees to blood products: blood products not planned Discussed the possibility of lip / dental damage: yes Prepared for Surgery: optimally prepared for surgery, pending [see comment]. CONSULTS: Patient does not require consults for optimization at this time Planned Anesthetic: other anesthesia choice The Following Tests/Procedures Have Been Initiated: Orders Placed This Encounter pantoprazole DR (PROTONIX) 40 mg tablet Sig: Take 40 mg by mouth once daily. alendronate (FOSAMAX) 70 mg tablet Sig: Take 70 mg by mouth one time a week. In AM with cup of water on empty stomach. Nothing else by mouth and stay upright for 30 min. REASON FOR VISIT: Tashia Fernandez is a 74 year old female who is scheduled for Procedure(s): RELEASE TRIGGER FINGER (Left) at the request of Dr. Abhishek Yi for consultation. My final recommendation will be communicated back to the requesting physician by way of shared medical record or letter. Subjective The patient has the following: COVID-19 Immunization Status Overdue - Covid-19 Vaccine () Overdue since 07/07/2024 10/24/2022 Postponed until 10/24/2023 by [employer], LUIS MIGUEL Johnson.CASH ACCOUNTING CLERK (Declined at this time) 11/18/2021 Imm Admin: COVID-19 original vaccine, age 12+ yr, monovalent (PFIZER-BIONTECH - [place] TOP) 03/02/2021 Imm Admin: COVID-19 original vaccine, age 12+ yr, monovalent (PFIZER-BIONTECH - PURPLE TOP) Only the first 3 history entries have been loaded, but more history exists. CHIEF COMPLAINT: Pre-op exam HPI: Tashia Fernandez is a 74 year old seen for PAC due to scheduled above surgery because of trigger finger. 07/29/24, Dr. Abhishek Yi HPI Patient here for follow up left ring finger. Patient was given an injection by Anju and she has a knot where she had the injection. She has nerve pain that is burning in her index and small fingers. Her ring finger is still locking. Continuing to wear oval 8 finger splint at bedtime. Taking Tylenol for the pain and helps sometimes. REVIEW OF SYSTEMS: General: No weight loss, malaise or fevers. 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 No neurological symptoms or problems. Respiratory: No history of current cough or dyspnea, or pneumonia in the past 6 weeks. No history of respiratory/pulmonary symptoms or problems. Cardiovascular: Positive for: angina (microvascular), anticoagulation therapy (ASA), CAD, hypertension and murmur/valvular heart disease Patient's last office visit The following tests and/or procedures were not performed: cardiac stents. Negative for: arrhythmia, atrial fibrillation, chest pain, CHF, congenital heart defect, DVT/PE, hyperlipidemia, recent [place], PVD, open heart surgery and valve surgery. GI: Positive for: diverticulitis and GERD (on rx, hiatal hernia) Negative for: abdominal pain, dysphagia, hepatitis, irritable bowel syndrome, inflammatory bowel disease, liver disease, nausea, pancreatitis, vomiting and ETOH >2 drinks/day. : Positive for: renal failure. Patient's renal failure is chronic. Negative for: urinary incontinence, nephrolithiasis and urinary tract infection. 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 Endocrine: +prediabetes, diet controlled Positive for: hypothyroidism (on rx). Negative for: diabetes mellitus. Hematology: Positive for: chronic anti-coagulation/platelet meds. Patient is on anti-coagulation/platelet medication(s): Aspirin. Negative for: anemia, bruises/bleeds easily and transfusion of at least 4 units within 72 hours prior to surgery. Oncology: No history of CA metastasis, chemo within 30 days, or radiotherapy within 90 days. No history of oncological symptoms or problems. Psych: No history of psychiatric symptoms or problems. Musculoskeletal: +osteoporosis, new rx, has not started Positive for: back pain (on rx). Skin: Negative for lesions, rash and itching. PAST MEDICAL HISTORY Diagnosis Date Contact dermatitis and other eczema Degenerative arthritis of knee 05/24/2011 Delayed gastric emptying 07/24/2012 Diabetes mellitus type II (HCC) 05/31/2024 Diarrhea Diverticulitis Diverticulosis of colon (without mention of hemorrhage) Diverticulosis Dysphagia, unspecified 08/29/2017 Elevated alkaline phosphatase level 07/12/2018 Essential hypertension, benign GERD (gastroesophageal reflux disease) Hyperlipidemia Hypokalemia 09/25/2012 Hypothyroidism Impaired fasting glucose 11/19/2015 Inadequate pelvic muscles 01/17/2012 Lumbar disc disease with radiculopathy 09/01/2016 Lung nodule < 6cm on CT 10/15/2018 10/07/18: incidental 4.5 mm nodule RML thyrotoxicosis Nonrheumatic mitral (valve) insufficiency Obesity Other osteoporosis 12/21/2006 Pancreatitis Paroxysmal SVT (supraventricular tachycardia) (HCC) Personal history of colonic polyps Colon polyps POLYP STOMACH 07/13/2007 Stage 3a chronic kidney disease (HCC) Statin intolerance 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--surgery not needed (2016) Trigeminal neuralgia 10/11/2011 Trochanteric bursitis of left hip 07/24/2012 Unspecified hemorrhoids without mention of complication Hemorrhoids PAST SURGICAL HISTORY Procedure Laterality Date COLONOSCOPY FLX DX W/COLLJ SPEC WHEN PFRMD 12/2018 Colonoscopy COLONOSCOPY FLX DX W/COLLJ SPEC WHEN PFRMD 07/13/2007 Lax colon COLONOSCOPY FLX DX W/COLLJ SPEC WHEN PFRMD 03/26/2014 Colonoscopy COLONOSCOPY FLX DX W/COLLJ SPEC WHEN PFRMD 12/2018 [id number] 10 years COLONOSCOPY GEN ANES 04/28/2021 DECOMPRESSION PLANTAR DIGITAL NERVE 1999 heel spur/ plantar fasciitis repair Rt EGD 06/02/2021 EGD TRANSORAL BIOPSY SINGLE/MULTIPLE 07/13/2007 Gastritis, fundic gland polyps EGD W/O [facility] SPEC VARICIES INJ 01/03/2024 Dr. Kelley ESOPHAGOGASTRODUODENOSCOPY TRANSORAL DIAGNOSTIC 03/26/2014 EGD EYE SURGERY HX LAPAROSCOPY SURG CHOLECYSTECTOMY Cholecystectomy, lap LIG/TRNSXJ FLP TUBE ABDL/VAG APPR UNI/BI LIGATE FALLOPIAN TUBE NEUROPLASTY &/TRANSPOS MEDIAN NRV CARPAL TUNNE Carpal tunnel decomp bilateral OPEN REPAIR OF ROTATOR CUFF ACUTE 1992 Rotator cuff repair, right STRESS TEST,COMPLETE_*FL FAMILY HISTORY Problem Relation Age of Onset Diabetes Mother Heart Mother Stroke Mother Hypertension Mother other (MVA) Father Hypertension Sister Heart Sister Hypertension Sister Heart Sister Hypertension Brother Heart Brother Hypertension Brother Cancer Brother Oral cancer Cancer Paternal Grandfather skin Breast Cancer Maternal Aunt Asthma No Family History Social History Tobacco Use Smoking status: Former Current packs/day: 0.10 Average packs/day: 0.1 packs/day for 1 year (0.1 ttl pk-yrs) Types: Cigarettes Smokeless tobacco: Never Tobacco comments: Smoked 1 year or less in 1980s. Spouse was smoker in home for 39 years. Father smoked in childhood home. Vaping Use Vaping status: Never Used Substance Use Topics Alcohol use: No Drug use: No Prior to Admission medications as of 08/08/24 1009 Medication Sig Last Dose Taking pantoprazole DR (PROTONIX) 40 mg tablet Take 40 mg by mouth once daily. Taking Yes gabapentin (NEURONTIN) 300 mg capsule Take 1 capsule by mouth daily at bedtime for 90 days. Taking Yes potassium chloride ER (KLOR-CON) 20 mEq tablet Take 2 tablets by mouth two times a day. Taking Yes amLODIPine (NORVASC) 5 mg tablet Take 1 tablet by mouth once daily. Taking Yes amLODIPine (NORVASC) 2.5 mg tablet Take one tablet daily in addition to 5 mg to equal 7.5 mg daily Taking Yes labetalol (TRANDATE) 200 mg tablet Take 1 tablet by mouth two times a day. Taking Yes isosorbide mononitrate ER (IMDUR) 30 mg 24 hr tablet Take 1 tablet by mouth once daily. Taking Yes meclizine (ANTIVERT) 25 mg tab Take 1 tablet by mouth three times a day as needed (vertigo). Taking Yes levothyroxine (SYNTHROID) 88 mcg tablet Take one tablet daily Monday-Monday and two tablets on Monday Taking Yes blood sugar diagnostic (BLOOD GLUCOSE TEST) test strip Test blood sugar(s) 1 times daily. Dx: Prediabetes Insulin: No Taking Yes Lancets lancets Test blood sugar(s) 1 times daily. Dx: Prediabetes Insulin: No Taking Yes losartan (COZAAR) 100 mg tablet Take 1 tablet by mouth once daily. Taking Yes polyethylene glycol 3350 17 gram/dose powder Take 17 g by mouth once daily. Dissolve dose in 4 - 8 ounces of liquid and take as directed. Taking Yes doxylamine succinate (SLEEP AID ORAL) Take by mouth daily at bedtime. Taking Yes calcium carbonate-Vit D3-minerals (CALTRATE) 600 mg calcium- 400 unit tab Take 2 tablets by mouth once daily. Taking Yes ondansetron orally disintegrating (ZOFRAN ODT) 4 mg disintegrating tablet Take 1 tablet by mouth every 6 hours as needed for Nausea/Vomiting. Taking Yes Biotin 2,500 mcg cap Take 1 capsule by mouth once daily. Taking Yes aspirin, enteric coated (ASPIRIN, ENTERIC COATED) 81 mg EC tablet Take 81 mg by mouth once daily. Taking Yes alendronate (FOSAMAX) 70 mg tablet Take 70 mg by mouth one time a week. In AM with cup of water on empty stomach. Nothing else by mouth and stay upright for 30 min. 0.9 % sodium chloride (NACL 0.9%) 0.9% solp Infuse 500 ml IV over [address]. Medication Comments documented by Vani Mayfield MA on 01/03/2017 at 0942. Biotin ALLERGIES Allergen Reactions Lipitor [Atorvastat* Other: See Comments muscle cramps Spironolactone Other: See Comments headache Aceon [Perindopril * Rash, Cough Codeine Intolerance Chest pain Lisinopril Cough dry hacking cough Objective PHYSICAL EXAM: General: alert and oriented (x3), healthy appearance and obese. Pertinent negatives noted - not distressed. Skin: normal color, no rash or lesions. HEENT: EOM intact and pupils equal round. Pertinent negatives noted - no carotid bruit. Cardiovascular: regular rate and rhythm, normal S1 and S2, no rub, murmurs, or gallop. Respiratory: normal breath sounds, no wheezes or crackles. No chest wall deformity or tenderness. Abdomen: soft. Pertinent negatives noted - not tender. Extremities: no deformity, no edema or tenderness, no joint swelling or clubbing. Neurological: normal cognition and motor skills. Gait normal. No weakness or sensory deficit. PAIN ASSESSMENT: Pain Pain Level: 6 Pain Location: Hand-Left Description: Sharp, Burning Duration Amount of Time: 7 Duration Units: Months Frequency: Continuous Intervention/Comfort measure: Medication VITALS: BP 136/78 Pulse 74 Temp (Src) 96.8 (Temporal) Resp 16 Ht 5' 0 (1.52m) Wt 173 lb (78.5kg) SpO2 97% BMI 33.79 kg/(m^2). Diagnostic tests reviewed for today's visit: Lab Value Units Date High Low HB 12.1 g/dL 05/29/2024 15.5 11.5 HCT 38.3 % 05/29/2024 46.0 36.0 WBC 7.43 k/uL 05/29/2024 11.00 3.70 PLT 305 k/uL 05/29/2024 400 150 NA 134 mmol/L 05/29/2024 144 136 K 4.2 mmol/L 05/29/2024 5.1 3.7 GLUC 90 mg/dL 05/29/2024 99 74 BUN 15 mg/dL 05/29/2024 21 7 CREAT 1.08 mg/dL 05/29/2024 0.96 0.58 PTSEC No results within date range. INR No results within date range. APTT No results within date range. ALT 13 U/L 05/16/2024 38 7 AST 16 U/L 05/16/2024 35 13 TBILI 0.2 mg/dL 05/16/2024 1.3 0.2 TSH 2.470 mIU/L 05/29/2024 4.200 0.270 Lab Value Units Date High Low HCGQT No results within date range. UHCG No results within date range. HCG, BODY* No results within date range. Lab Value Units Date High Low ABORHD No results within date range. ABSCREEN No results within date range. Hemoglobin A1C (%) Date Value 05/29/2024 6.5 01/18/2024 6.2 05/29/2023 6.4 09/27/2022 5.9 04/25/2022 6.2 09/27/2019 6.2 03/22/2018 6.0 06/02/2016 6.6 11/09/2015 6.1 No results found for this or any previous visit (from the past 8760 hour(s)). Recent Results (from the past 78382 hour(s)) ECHO Collection Time: 03/23/23 1:37 PM Impression CONCLUSIONS: - Technically difficult exam due to body habitus. - Exam indication: Syncope - The left ventricle is normal in size. There is mild left ventricular hypertrophy. Left ventricular systolic function is normal. EF = 66 5% (2D biplane) Grade I left ventricular diastolic dysfunction. - The right ventricle is normal in size. Right ventricular systolic function is normal. - The left atrial cavity is mildly dilated. - Exam was compared with the prior echocardiographic exam performed on 01/24/2022, no significant change. * * * Final * * * Instructions Given to Patient: Instructions located in the after visit summary. Patient given verbal and written preop instructions and voices comprehension and compliance. SIGNATURE: Micheline Keys APRN.CNP PATIENT NAME: Tashia Fernandez DATE: August 07, 2024 TIME: 2:45 PM PAGER/CONTACT #: documented in this encounter [facility] 08-07-2024 Note HNO ID: [id number] Author: SHARIFA STEWART RN Service: ? Author Type: Registered Nurse Type: Progress Notes Filed: 08/07/2024 13:15 Note Text: [facility] Telephonic Outreach Provider Action/FYI Contacted for: Routine Telephonic Outreach Contact made with patient: Yes Patient identified by name and date of . Discussed care with patient Are you experiencing any new or worsening symptoms you need to talk about today? No Disease Specific Do you check your blood pressure at home? Yes, Enter readings: 150/81 today, on Jul 31 Thank you. 137/82 Do you have new or worsening shortness of breath with activity? No Do you feel like you are dehydrated for any reason, including not being able to eat or drink normally, or having less urine/much darker urine than normal for you? No Do you check your daily weight at home? Yes, Have you noticed a sudden gain in weight greater than three pounds in a day or three pounds in a week? No Based on assessment rn, the following disposition is advised: No symptoms or symptoms present, not severe. Routed to: No Action Needed LIDIA Education Provided this Outreach: No * lidia sent previously * Patient's blood pressure today was 150/81. Does not check in daily but does check it. Encouraged her to check daily as this reading is an increase for her. Has a pre-op appointment this afternoon for hand surgery Monday. She will take note of what BP is at that time. Advised to make PCP aware if continues to remain this high. Is taking medications as directed. Patient verbalizes understanding. Denies other needs, questions, concerns at this time. Sharifa Stewart RN August 07, 2024 1:10 PM [facility] 08-07-2024 History of Present illness Narrative [facility] Telephonic Outreach Provider Action/FYI Contacted for: Routine Telephonic Outreach Contact made with patient: Yes Patient identified by name and date of . Discussed care with patient Are you experiencing any new or worsening symptoms you need to talk about today? No Disease Specific Do you check your blood pressure at home? Yes, Enter readings: 150/81 today, on Jul 31 Thank you. 137/82 Do you have new or worsening shortness of breath with activity? No Do you feel like you are dehydrated for any reason, including not being able to eat or drink normally, or having less urine/much darker urine than normal for you? No Do you check your daily weight at home? Yes, Have you noticed a sudden gain in weight greater than three pounds in a day or three pounds in a week? No Based on assessment rn, the following disposition is advised: No symptoms or symptoms present, not severe. Routed to: No Action Needed LIDIA Education Provided this Outreach: No * lidia sent previously * Patient's blood pressure today was 150/81. Does not check in daily but does check it. Encouraged her to check daily as this reading is an increase for her. Has a pre-op appointment this afternoon for hand surgery Monday. She will take note of what BP is at that time. Advised to make PCP aware if continues to remain this high. Is taking medications as directed. Patient verbalizes understanding. Denies other needs, questions, concerns at this time. Sharifa Stewart RN August 07, 2024 1:10 PM documented in this encounter [facility] 08-07-2024 Note Patient Outreach ([facility] TASHIA FERNANDEZ ([id number]) 1950 F Date Time Provider Department 08/07/24 SHARIFA STEWART During your visit today, we recorded the following information about you: Sharifa Stewart RN 08/07/2024 1:15 PM Signed CDM Telephonic Outreach Provider Action/FYI Contacted for: Routine Telephonic Outreach Contact made with patient: Yes Patient identified by name and date of . Discussed care with patient Are you experiencing any new or worsening symptoms you need to talk about today? No Disease Specific Do you check your blood pressure at home? Yes, Enter readings: 150/81 today, on Jul 31 Thank you. 137/82 Do you have new or worsening shortness of breath with activity? No Do you feel like you are dehydrated for any reason, including not being able to eat or drink normally, or having less urine/much darker urine than normal for you? No Do you check your daily weight at home? Yes, Have you noticed a sudden gain in weight greater than three pounds in a day or three pounds in a week? No Based on assessment rn, the following disposition is advised: No symptoms or symptoms present, not severe. Routed to: No Action Needed LIDIA Education Provided this Outreach: No * lidia sent previously * Patient's blood pressure today was 150/81. Does not check in daily but does check it. Encouraged her to check daily as this reading is an increase for her. Has a pre-op appointment this afternoon for hand surgery Monday. She will take note of what BP is at that time. Advised to make PCP aware if continues to remain this high. Is taking medications as directed. Patient verbalizes understanding. Denies other needs, questions, concerns at this time. Sharifa Stewart RN August 07, 2024 1:10 PM Allergies As of Date: 08/07/2024 Noted Allergy Reaction LIPITOR (ATORVASTATIN CALCIUM) 10/21/2014 14 - Other: See Comments Comments: muscle cramps SPIRONOLACTONE 03/21/2014 14 - Other: See Comments Comments: headache ACEON (PERINDOPRIL ERBUMINE) 11/02/2005 2 - Rash 3 - Cough CODEINE 12/09/2009 5 - Intolerance Comments: Chest pain LISINOPRIL 10/07/2005 3 - Cough Comments: dry hacking cough Date Reviewed: 07/29/2024 Reviewed by: Hannah Jaramillo MA - Fully Assessed Reason for Visit: CDM [Other] Cmt: Telephonic outreach Prescriptions as of 08/07/2024 - gabapentin (NEURONTIN) 300 mg capsule Take 1 capsule by mouth daily at bedtime for 90 days. - alendronate (FOSAMAX) 70 mg tablet Take 1 tablet by mouth one time a week. Take with a full glass of water, on an empty stomach; do NOT lie down for 30minutes. - potassium chloride ER (KLOR-CON) 20 mEq tablet Take 2 tablets by mouth two times a day. - ranolazine ER (RANEXA) 500 mg 12 hr tablet Take 1 tablet by mouth two times a day. - amLODIPine (NORVASC) 5 mg tablet Take 1 tablet by mouth once daily. - amLODIPine (NORVASC) 2.5 mg tablet Take one tablet daily in addition to 5 mg to equal 7.5 mg daily - labetalol (TRANDATE) 200 mg tablet Take 1 tablet by mouth two times a day. - isosorbide mononitrate ER (IMDUR) 30 mg 24 hr tablet Take 1 tablet by mouth once daily. - meclizine (ANTIVERT) 25 mg tab Take 1 tablet by mouth three times a day as needed (vertigo). - levothyroxine (SYNTHROID) 88 mcg tablet Take one tablet daily Monday-Monday and two tablets on Monday - blood sugar diagnostic (BLOOD GLUCOSE TEST) test strip Test blood sugar(s) 1 times daily. Dx: Prediabetes Insulin: No - Lancets lancets Test blood sugar(s) 1 times daily. Dx: Prediabetes Insulin: No - losartan (COZAAR) 100 mg tablet Take 1 tablet by mouth once daily. - polyethylene glycol 3350 17 gram/dose powder Take 17 g by mouth once daily. Dissolve dose in 4 - 8 ounces of liquid and take as directed. - doxylamine succinate (SLEEP AID ORAL) Take by mouth daily at bedtime. - calcium carbonate-Vit D3-minerals (CALTRATE) 600 mg calcium- 400 unit tab Take 2 tablets by mouth once daily. - ondansetron orally disintegrating (ZOFRAN ODT) 4 mg disintegrating tablet Take 1 tablet by mouth every 6 hours as needed for Nausea/Vomiting. - 0.9 % sodium chloride (NACL 0.9%) 0.9% solp Infuse 500 ml IV over [address] - Biotin 2,500 mcg cap Take 1 capsule by mouth once daily. - aspirin, enteric coated (ASPIRIN, ENTERIC COATED) 81 mg EC tablet Take 81 mg by mouth once daily. 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 [facility] 08-01-2024 Telephone encounter Note Surgery scheduled as requested. [facility] 08-01-2024 Miscellaneous Notes Surgery scheduled as requested. Patient scheduled for Left ring trigger finger release on 08/09/2024. Surgical request completed. Post op appointments scheduled and mailed to the patient. documented in this encounter [facility] 08-01-2024 Telephone encounter Note Patient scheduled for Left ring trigger finger release on 08/09/2024. Surgical request completed. Post op appointments scheduled and mailed to the patient. [facility] 07-31-2024 Miscellaneous Notes PDMP website checked and validated. All prescriptions have been APPROPRIATELY filled. No suspicious activity was identified. 07/31/2024 by Elisa Starr MD 3 months supply Patient has been identified by name and date of : Yes Patient phones for refill(s): Requested Prescriptions Pending Prescriptions Disp Refills gabapentin (NEURONTIN) 300 mg capsule 90 capsule 0 Sig: Take 1 capsule by mouth daily at bedtime for 90 days. Date of last office visit in primary care: 06/26/2024 Date of next office visit in primary care: 12/27/2024 Please advise. Thank you. Elizabeth Jason. documented in this encounter [facility] 07-31-2024 Telephone encounter Note PDMP website checked and validated. All prescriptions have been APPROPRIATELY filled. No suspicious activity was identified. 07/31/2024 by Elisa Starr MD [facility] 07-31-2024 Telephone encounter Note 3 months supply Patient has been identified by name and date of : Yes Patient phones for refill(s): Requested Prescriptions Pending Prescriptions Disp Refills gabapentin (NEURONTIN) 300 mg capsule 90 capsule 0 Sig: Take 1 capsule by mouth daily at bedtime for 90 days. Date of last office visit in primary care: 06/26/2024 Date of next office visit in primary care: 12/27/2024 Please advise. Thank you. Elizabeth Jason. [facility] 07-29-2024 Note HNO ID: [id number] Author: ABHISHEK YI MD Service: ? Author Type: Physician Type: Progress Notes Filed: 08/09/2024 10:23 Note Text: Abhishek Yi MD Department [facility]opaedics [facility] [address] [facility] [address] Dept: [phone] Dept July 29, 2024 CHIEF COMPLAINT: Follow Up of the Left Ring Finger and 12 weeks post visit with Anju Left ring trigger finger (with injection given) HPI Patient here for follow up left ring finger. Patient was given an injection by Anju and she has a knot where she had the injection. She has nerve pain that is burning in her index and small fingers. Her ring finger is still locking. Continuing to wear oval 8 finger splint at bedtime. Taking Tylenol for the pain and helps sometimes. ASSESSMENT: M65.342 Trigger ring finger of left hand (primary encounter diagnosis) PLAN: we discussed treatment options and after reviewed the risks, benefits, alternatives and potential complications, she wishes to proceed with surgical release. OBJECTIVE: Ms. Tashia Fernandez is a pleasant 74 year old in no apparent distress. Gen:There were no vitals taken for this visit. nl development, non obese, no deformities ENT: Normocephalic, normal hearing, moist mucosa CV: Pulses:Radial= 2+ and symmetric, capillary refill < 2 secs, no peripheral edema/varicosities Skin: no rash, bruising or lesions. Good turgor. Psych: cooperative and appropriate, alert and oriented x 3, good mood and affect. Musculoskeletal: TTP at the A1 of the ring finger. Active locking and catching of the joint. Supporting Subjective Information Below: Past Surgical History: PAST SURGICAL HISTORY Procedure Laterality Date COLONOSCOPY FLX DX W/COLLJ SPEC WHEN PFRMD 12/2018 Colonoscopy COLONOSCOPY FLX DX W/COLLJ SPEC WHEN PFRMD 07/13/2007 Lax colon COLONOSCOPY FLX DX W/COLLJ SPEC WHEN PFRMD 03/26/2014 Colonoscopy COLONOSCOPY FLX DX W/COLLJ SPEC WHEN PFRMD 12/2018 ZOP-[id number]-[id number] 10 years COLONOSCOPY GEN ANES 04/28/2021 DECOMPRESSION PLANTAR DIGITAL NERVE 1999 heel spur/ plantar fasciitis repair Rt EGD 06/02/2021 EGD TRANSORAL BIOPSY SINGLE/MULTIPLE 07/13/2007 Gastritis, fundic gland polyps EGD W/O [facility] SPEC VARICIES INJ 01/03/2024 Dr. Kelley ESOPHAGOGASTRODUODENOSCOPY TRANSORAL DIAGNOSTIC 03/26/2014 EGD EYE SURGERY HX LAPAROSCOPY SURG CHOLECYSTECTOMY Cholecystectomy, lap LIG/TRNSXJ FLP TUBE ABDL/VAG APPR UNI/BI LIGATE FALLOPIAN TUBE NEUROPLASTY AND/TRANSPOS MEDIAN NRV CARPAL TUNNE Carpal tunnel decomp bilateral OPEN REPAIR OF ROTATOR CUFF ACUTE 1991 Rotator cuff repair, right STRESS TEST,COMPLETE_*FL Medications: Current Outpatient Medications Medication Sig alendronate (FOSAMAX) 70 mg tablet Take 1 tablet by mouth one time a week. Take with a full glass of water, on an empty stomach; do NOT lie down for 30minutes. potassium chloride ER (KLOR-CON) 20 mEq tablet Take 2 tablets by mouth two times a day. amLODIPine (NORVASC) 5 mg tablet Take 1 tablet by mouth once daily. gabapentin (NEURONTIN) 300 mg capsule Take 1 capsule by mouth daily at bedtime for 90 days. amLODIPine (NORVASC) 2.5 mg tablet Take one tablet daily in addition to 5 mg to equal 7.5 mg daily labetalol (TRANDATE) 200 mg tablet Take 1 tablet by mouth two times a day. isosorbide mononitrate ER (IMDUR) 30 mg 24 hr tablet Take 1 tablet by mouth once daily. meclizine (ANTIVERT) 25 mg tab Take 1 tablet by mouth three times a day as needed (vertigo). levothyroxine (SYNTHROID) 88 mcg tablet Take one tablet daily Monday-Monday and two tablets on Monday blood sugar diagnostic (BLOOD GLUCOSE TEST) test strip Test blood sugar(s) 1 times daily. Dx: Prediabetes Insulin: No Lancets lancets Test blood sugar(s) 1 times daily. Dx: Prediabetes Insulin: No losartan (COZAAR) 100 mg tablet Take 1 tablet by mouth once daily. polyethylene glycol 3350 17 gram/dose powder Take 17 g by mouth once daily. Dissolve dose in 4 - 8 ounces of liquid and take as directed. doxylamine succinate (SLEEP AID ORAL) Take by mouth daily at bedtime. calcium carbonate-Vit D3-minerals (CALTRATE) 600 mg calcium- 400 unit tab Take 2 tablets by mouth once daily. ondansetron orally disintegrating (ZOFRAN ODT) 4 mg disintegrating tablet Take 1 tablet by mouth every 6 hours as needed for Nausea/Vomiting. Biotin 2,500 mcg cap Take 1 capsule by mouth once daily. aspirin, enteric coated (ASPIRIN, ENTERIC COATED) 81 mg EC tablet Take 81 mg by mouth once daily. ranolazine ER (RANEXA) 500 mg 12 hr tablet Take 1 tablet by mouth two times a day. (Patient not taking: Reported on 07/29/2024) 0.9 % sodium chloride (NACL 0.9%) 0.9% solp Infuse 500 ml IV over [address] No current facility-administered medications for this visit. Allergies: Lipitor [Atorvastatin Calcium], Spironolactone, Aceon [Perindopril Erbumine], Codeine, (more content not included)... [facility] 07-29-2024 History of Present illness Narrative Abhishek Yi MD Department of Orthopaedics Orthopaedics [address] [facility] [address] Dept: [phone] Dept July 29, 2024 CHIEF COMPLAINT: Follow Up of the Left Ring Finger and 12 weeks post visit with Anju Left ring trigger finger (with injection given) HPI Patient here for follow up left ring finger. Patient was given an injection by Anju and she has a knot where she had the injection. She has nerve pain that is burning in her index and small fingers. Her ring finger is still locking. Continuing to wear oval 8 finger splint at bedtime. Taking Tylenol for the pain and helps sometimes. ASSESSMENT: M65.342 Trigger ring finger of left hand (primary encounter diagnosis) PLAN: we discussed treatment options and after reviewed the risks, benefits, alternatives and potential complications, she wishes to proceed with surgical release. OBJECTIVE: Ms. Tashia Fernandez is a pleasant 74 year old in no apparent distress. Gen:There were no vitals taken for this visit. nl development, non obese, no deformities ENT: Normocephalic, normal hearing, moist mucosa CV: Pulses:Radial= 2+ and symmetric, capillary refill < 2 secs, no peripheral edema/varicosities Skin: no rash, bruising or lesions. Good turgor. Psych: cooperative and appropriate, alert and oriented x 3, good mood and affect. Musculoskeletal: TTP at the A1 of the ring finger. Active locking and catching of the joint. Supporting Subjective Information Below: Past Surgical History: PAST SURGICAL HISTORY Procedure Laterality Date COLONOSCOPY FLX DX W/COLLJ SPEC WHEN PFRMD 12/2018 Colonoscopy COLONOSCOPY FLX DX W/COLLJ SPEC WHEN PFRMD 07/13/2007 Lax colon COLONOSCOPY FLX DX W/COLLJ SPEC WHEN PFRMD 03/26/2014 Colonoscopy COLONOSCOPY FLX DX W/COLLJ SPEC WHEN PFRMD 12/2018 NON-[id number]-ketnnz 10 years COLONOSCOPY GEN ANES 04/28/2021 DECOMPRESSION PLANTAR DIGITAL NERVE 2000 heel spur/ plantar fasciitis repair Rt EGD 06/02/2021 EGD TRANSORAL BIOPSY SINGLE/MULTIPLE 07/13/2007 Gastritis, fundic gland polyps EGD W/O [facility] SPEC VARICIES INJ 01/03/2024 Dr. Kelley ESOPHAGOGASTRODUODENOSCOPY TRANSORAL DIAGNOSTIC 03/26/2014 EGD EYE SURGERY HX LAPAROSCOPY SURG CHOLECYSTECTOMY Cholecystectomy, lap LIG/TRNSXJ FLP TUBE ABDL/VAG APPR UNI/BI LIGATE FALLOPIAN TUBE NEUROPLASTY &/TRANSPOS MEDIAN NRV CARPAL TUNNE Carpal tunnel decomp bilateral OPEN REPAIR OF ROTATOR CUFF ACUTE 1992 Rotator cuff repair, right STRESS TEST,COMPLETE_*FL Medications: Current Outpatient Medications Medication Sig alendronate (FOSAMAX) 70 mg tablet Take 1 tablet by mouth one time a week. Take with a full glass of water, on an empty stomach; do NOT lie down for 30minutes. potassium chloride ER (KLOR-CON) 20 mEq tablet Take 2 tablets by mouth two times a day. amLODIPine (NORVASC) 5 mg tablet Take 1 tablet by mouth once daily. gabapentin (NEURONTIN) 300 mg capsule Take 1 capsule by mouth daily at bedtime for 90 days. amLODIPine (NORVASC) 2.5 mg tablet Take one tablet daily in addition to 5 mg to equal 7.5 mg daily labetalol (TRANDATE) 200 mg tablet Take 1 tablet by mouth two times a day. isosorbide mononitrate ER (IMDUR) 30 mg 24 hr tablet Take 1 tablet by mouth once daily. meclizine (ANTIVERT) 25 mg tab Take 1 tablet by mouth three times a day as needed (vertigo). levothyroxine (SYNTHROID) 88 mcg tablet Take one tablet daily Monday-Monday and two tablets on Monday blood sugar diagnostic (BLOOD GLUCOSE TEST) test strip Test blood sugar(s) 1 times daily. Dx: Prediabetes Insulin: No Lancets lancets Test blood sugar(s) 1 times daily. Dx: Prediabetes Insulin: No losartan (COZAAR) 100 mg tablet Take 1 tablet by mouth once daily. polyethylene glycol 3350 17 gram/dose powder Take 17 g by mouth once daily. Dissolve dose in 4 - 8 ounces of liquid and take as directed. doxylamine succinate (SLEEP AID ORAL) Take by mouth daily at bedtime. calcium carbonate-Vit D3-minerals (CALTRATE) 600 mg calcium- 400 unit tab Take 2 tablets by mouth once daily. ondansetron orally disintegrating (ZOFRAN ODT) 4 mg disintegrating tablet Take 1 tablet by mouth every 6 hours as needed for Nausea/Vomiting. Biotin 2,500 mcg cap Take 1 capsule by mouth once daily. aspirin, enteric coated (ASPIRIN, ENTERIC COATED) 81 mg EC tablet Take 81 mg by mouth once daily. ranolazine ER (RANEXA) 500 mg 12 hr tablet Take 1 tablet by mouth two times a day. (Patient not taking: Reported on 07/29/2024) 0.9 % sodium chloride (NACL 0.9%) 0.9% solp Infuse 500 ml IV over [address] No current facility-administered medications for this visit. Allergies: Lipitor [Atorvastatin Calcium], Spironolactone, Aceon [Perindopril Erbumine], Codeine, and Lisinopril ROS: General (negative for fatigue, malaise, weight loss/gain) HEENT (negative for headache, earache, recent vision changes, sinus pain, sore throat) Respiratory (no recent shortness of breath, hemoptysis) CV (negative for chest tightness, palpitations) Musculoskeletal (see HPI) Psych (no depression, anxiety) Abhishek Yi MD documented in this encounter [facility] 07-23-2024 Telephone encounter Note Pt called and is notified of providers message and instructions. Pt voices understanding. Anusha Frey RN [facility] 07-23-2024 Miscellaneous Notes Pt called and is notified of providers message and instructions. Pt voices understanding. Anusha Frey, RN Rx sent. Recheck DXA in 2 years. Spoke with pt message below given. Pt willing to start on Fosamax. Asking this be sent to [facility] for (3) month supply. Gia Wilson LPN ----- Message from Elisa Starr MD sent at 07/23/2024 9:16 AM EDT ----- Bone density scan consistent with osteoporosis. Recommend starting her on Fosamax weekly to improve bone density and reduce her risk for fractures. Will call in rx if agreeable. documented in this encounter [facility] 07-23-2024 Telephone encounter Note Rx sent. Recheck DXA in 2 years. [facility] 07-23-2024 Telephone encounter Note Spoke with pt message below given. Pt willing to start on Fosamax. Asking this be sent to [facility] for (3) month supply. Gia Wilson LPN [facility] 07-23-2024 Telephone encounter Note ----- Message from Elisa Starr MD sent at 07/23/2024 9:16 AM EDT ----- Bone density scan consistent with osteoporosis. Recommend starting her on Fosamax weekly to improve bone density and reduce her risk for fractures. Will call in rx if agreeable. [facility] 07-22-2024 History of Present illness Narrative Radiology Service Progress Note PATIENT NAME: Tahsia Fernandez DATE OF SERVICE: July 22, 2024 TIME: 7:44 AM PATIENT IDENTITY VERIFICATION COMPLETED USING TWO (2) IDENTIFIERS: Name and Date of confirmed by patient verbally. FALL SCREENING: Has the patient had 2 falls in the last year or 1 fall with injury or currently using an Ambulatory Assistive Device (Walker, Cane, Wheelchair, Crutches, etc.)? No PATIENT GENDER DATA: Female. status: : No status: NO. PATIENT RELEVANT IMPLANT DATA REVIEWED: Not Applicable PATIENT PRESENTS WITH AN IMPLANTABLE OR ATTACHED RAIL TRACK MAINTAINER: No RADIOLOGY DEPARTMENT: Bone Density PERIPHERAL IV DATA: Not applicable SIGNED BY: LISA Titus) July 22, 2024 7:44 AM documented in this encounter [facility] 07-22-2024 Note HNO ID: [id number] Author: ROMAN SUAREZ RT (R) Service: ? Author Type: Technologist Type: Progress Notes Filed: 07/22/2024 07:55 Note Text: Radiology Service Progress Note PATIENT NAME: Tashia Fernandez DATE OF SERVICE: July 22, 2024 TIME: 7:44 AM PATIENT IDENTITY VERIFICATION COMPLETED USING TWO (2) IDENTIFIERS: Name and Date of confirmed by patient verbally. FALL SCREENING: Has the patient had 2 falls in the last year or 1 fall with injury or currently using an Ambulatory Assistive Device (Walker, Cane, Wheelchair, Crutches, etc.)? No PATIENT GENDER DATA: Female. status: : No status: NO. PATIENT RELEVANT IMPLANT DATA REVIEWED: Not Applicable PATIENT PRESENTS WITH AN IMPLANTABLE OR ATTACHED RAIL TRACK MAINTAINER: No RADIOLOGY DEPARTMENT: Bone Density PERIPHERAL IV DATA: Not applicable SIGNED BY: LISA Titus) July 22, 2024 7:44 AM [facility] 07-10-2024 Note HNO ID: [id number] Author: SHARIFA STEWART RN Service: ? Author Type: Registered Nurse Type: Progress Notes Filed: 07/10/2024 10:23 Note Text: CDM Telephonic Outreach Provider Action/FYI Contacted for: Routine Telephonic Outreach Contact made with patient: Yes Patient identified by name and date of . Discussed care with patient Are you experiencing any new or worsening symptoms you need to talk about today? No Disease Specific Do you check your blood pressure at home? Yes, Enter readings: 128/65, 134/71, 103/62 Do you have new or worsening shortness of breath with activity? No Do you feel like you are dehydrated for any reason, including not being able to eat or drink normally, or having less urine/much darker urine than normal for you? No Do you check your daily weight at home? No Based on assessment rn, the following disposition is advised: No symptoms or symptoms present, not severe. Routed to: No Action Needed LIDIA Education Provided this Outreach: No * lidia sent previously * Patient states she has had stress incontinence as well as frequency for a number of years. Suggested she speak to PCP first about it. Stated she would prefer to get an appointment with urologist. Provided number to navigator to obtain appointment . Encouraged her to have her name put on a cancellation list if appointment is not soon enough for her. Has been monitoring blood sugar. Example of part of day for her. She is currently checking 3 x a day.. She still insists she does not want to take medication for it so she is trying to work on managing with diet. 07/02/24: woke up blood sugar 94. Ate breakfast blood sugar increased to 170. Waited 3 hours retook and it was down to 113. Denies other needs, questions, concerns at this time. Provided with [facility] reminder and number. Sharifa Stewart RN July 10, 2024 10:10 AM [facility] 07-09-2024 Note HNO ID: [id number] Author: SHARIFA STEWART RN Service: ? Author Type: Registered Nurse Type: Progress Notes Filed: 07/09/2024 15:39 Note Text: CDM Telephonic Outreach Provider Action/FYI Monthly outreach call # 1 Contacted for: Routine Telephonic Outreach Contact made with patient: No, left message. Sharifa Stewart RN July 09, 2024 3:38 PM [facility] 07-09-2024 History of Present illness Narrative [facility] Telephonic Outreach Provider Action/FYI Monthly outreach call # 1 Contacted for: Routine Telephonic Outreach Contact made with patient: No, left message. Sharifa Stewart RN July 09, 2024 3:38 PM documented in this encounter [facility] 07-09-2024 Note Patient Outreach ([facility]) TASHIA FERNANDEZ ([id number]) 1950 F Date Time Provider Department 07/09/24 SHARIFA STEWART [facility] During your visit today, we recorded the following information about you: Sharifa Stewart RN 07/09/2024 3:39 PM Signed [facility] Telephonic Outreach Provider Action/FYI Monthly outreach call # 1 Contacted for: Routine Telephonic Outreach Contact made with patient: No, left message. Sharifa Stewart RN July 09, 2024 3:38 PM Sharifa Stewart RN 07/10/2024 10:23 AM Signed [facility] Telephonic Outreach Provider Action/FYI Contacted for: Routine Telephonic Outreach Contact made with patient: Yes Patient identified by name and date of . Discussed care with patient Are you experiencing any new or worsening symptoms you need to talk about today? No Disease Specific Do you check your blood pressure at home? Yes, Enter readings: 128/65, 134/71, 103/62 Do you have new or worsening shortness of breath with activity? No Do you feel like you are dehydrated for any reason, including not being able to eat or drink normally, or having less urine/much darker urine than normal for you? No Do you check your daily weight at home? No Based on assessment rn, the following disposition is advised: No symptoms or symptoms present, not severe. Routed to: No Action Needed LIDIA Education Provided this Outreach: No * lidia sent previously * Patient states she has had stress incontinence as well as frequency for a number of years. Suggested she speak to PCP first about it. Stated she would prefer to get an appointment with urologist. Provided number to navigator to obtain appointment . Encouraged her to have her name put on a cancellation list if appointment is not soon enough for her. Has been monitoring blood sugar. Example of part of day for her. She is currently checking 3 x a day.. She still insists she does not want to take medication for it so she is trying to work on managing with diet. 07/02/24: woke up blood sugar 94. Ate breakfast blood sugar increased to 170. Waited 3 hours retook and it was down to 113. Denies other needs, questions, concerns at this time. [facility]ided [facility] reminder and number. Sharifa Stewart RN July 10, 2024 10:10 AM Allergies As of Date: 07/09/2024 Noted Allergy Reaction LIPITOR (ATORVASTATIN CALCIUM) 10/21/2014 14 - Other: See Comments Comments: muscle cramps SPIRONOLACTONE 03/21/2014 14 - Other: See Comments Comments: headache ACEON (PERINDOPRIL ERBUMINE) 11/02/2005 2 - Rash 3 - Cough CODEINE 12/09/2009 5 - Intolerance Comments: Chest pain LISINOPRIL 10/07/2005 3 - Cough Comments: dry hacking cough Date Reviewed: 06/26/2024 Reviewed by: Vangie Gonzalez LPN - Fully Assessed Reason for Visit: CDM [Other] Cmt: Telephonic outreach Prescriptions as of 07/10/2024 - potassium chloride ER (KLOR-CON) 20 mEq tablet Take 2 tablets by mouth two times a day. - ranolazine ER (RANEXA) 500 mg 12 hr tablet Take 1 tablet by mouth two times a day. - amLODIPine (NORVASC) 5 mg tablet Take 1 tablet by mouth once daily. - gabapentin (NEURONTIN) 300 mg capsule Take 1 capsule by mouth daily at bedtime for 90 days. - amLODIPine (NORVASC) 2.5 mg tablet Take one tablet daily in addition to 5 mg to equal 7.5 mg daily - labetalol (TRANDATE) 200 mg tablet Take 1 tablet by mouth two times a day. - isosorbide mononitrate ER (IMDUR) 30 mg 24 hr tablet Take 1 tablet by mouth once daily. - meclizine (ANTIVERT) 25 mg tab Take 1 tablet by mouth three times a day as needed (vertigo). - levothyroxine (SYNTHROID) 88 mcg tablet Take one tablet daily Monday-Monday and two tablets on Monday - blood sugar diagnostic (BLOOD GLUCOSE TEST) test strip Test blood sugar(s) 1 times daily. Dx: Prediabetes Insulin: No - Lancets lancets Test blood sugar(s) 1 times daily. Dx: Prediabetes Insulin: No - losartan (COZAAR) 100 mg tablet Take 1 tablet by mouth once daily. - polyethylene glycol 3350 17 gram/dose powder Take 17 g by mouth once daily. Dissolve dose in 4 - 8 ounces of liquid and take as directed. - doxylamine succinate (SLEEP AID ORAL) Take by mouth daily at bedtime. - calcium carbonate-Vit D3-minerals (CALTRATE) 600 mg calcium- 400 unit tab Take 2 tablets by mouth once daily. - ondansetron orally disintegrating (ZOFRAN ODT) 4 mg disintegrating tablet Take 1 tablet by mouth every 6 hours as needed for Nausea/Vomiting. - 0.9 % sodium chloride (NACL 0.9%) 0.9% solp Infuse 500 ml IV over [address] - Biotin 2,500 mcg cap Take 1 capsule by mouth once daily. - aspirin, enteric coated (ASPIRIN, ENTERIC COATED) 81 mg EC tablet Take 81 mg by mouth once daily. Meds Comments as of 01/03/2017: Biotin Problem List As Of Date 07/09/2024 Noted Resolved Primary hypertension [I10] Personal history of colonic polyps [Z86.010] 06/02/2021 Postabla (more content not included)... [facility] 07-01-2024 Telephone encounter Note Patient notified. Jennifer Harris LPN [facility] 07-01-2024 Miscellaneous Notes Patient notified. Jennifer Harris LPN Images from the original note were not included. Jonna Benavides MD You; [facility] Cardiology Pool2 minutes ago (4:42 PM) Stop the medication louise Called patient. No answer- left message to call clinic for message from Dr. Benavides. Khang Chavez LPN Patient called. Verified name and date of . Patient called to let you know that she can not take the Ranolazine 500 MG by mouth twice daily as she believes it caused her to be constipated. Patient had went to the [facility] emergency room on 06/15/2024 and had to go to on antibiotics for treatment of diverticulitis. Please review and advise. Khang Chavez LPN documented in this encounter [facility] 06-28-2024 Telephone encounter Note Images from the original note were not included. Jonna Benavides MD You; [facility] Cardiology Pool2 minutes ago (4:42 PM) Stop the medication louise Called patient. No answer- left message to call clinic for message from Dr. Benavides. Khang Chavez LPN [facility] 06-28-2024 Telephone encounter Note Patient called. Verified name and date of . Patient called to let you know that she can not take the Ranolazine 500 MG by mouth twice daily as she believes it caused her to be constipated. Patient had went to the [facility] emergency room on 06/15/2024 and had to go to on antibiotics for treatment of diverticulitis. Please review and advise. Khang Chavez LPN [facility] 06-28-2024 Telephone encounter Note Prescription Refill Information The patient has been identified by name and date of : Yes Caregiver verified no other encounters exist for this prescription request: Yes Caregiver confirmed with patient/requestor that no other refills are due, in the near future, with this provider at this time: Yes The last office visit in the department: 06-26-24 Does the patient have a future office visit with this provider/department: Yes Requested Prescriptions Pending Prescriptions Disp Refills potassium chloride ER (KLOR-CON) 20 mEq tablet 360 tablet 3 Sig: Take 2 tablets by mouth two times a day. Aaliyah Vidal June 28, 2024 9:50 AM [facility] 06-28-2024 Miscellaneous Notes Prescription Refill Information The patient has been identified by name and date of : Yes Caregiver verified no other encounters exist for this prescription request: Yes Caregiver confirmed with patient/requestor that no other refills are due, in the near future, with this provider at this time: Yes The last office visit in the department: 06-26-24 Does the patient have a future office visit with this provider/department: Yes Requested Prescriptions Pending Prescriptions Disp Refills potassium chloride ER (KLOR-CON) 20 mEq tablet 360 tablet 3 Sig: Take 2 tablets by mouth two times a day. Aaliyah Vidal June 28, 2024 9:50 AM documented in this encounter [facility] 06-26-2024 History of Present illness Narrative 06/26/2024 Patient presents with: Recheck: Lightheadedness SUBJECTIVE: This is a 74 year old that is here today for Above Complaints. Since stopping angina pill lightheadedness has resolved. Reports she stopped the antiangial pill on her on and has felt much better. Recently in ER for diverticulitis and compelted her antibiotcs. Feeling much improved. Denies visual changes, headaches, dizziness, lightheadedness, syncope, slurred speech, facial drooping, SOB, dyspnea, chest pain, palpitations, extremity numbness, tingling or weakness A1c up to 6.5%. Patient reports she had been eating more ice cream but has stopped in the last 2-3 weeks. Denies polyuria or polydipsia PAST MEDICAL HISTORY No date: Contact dermatitis and other eczema 05/24/2011: Degenerative arthritis of knee 07/24/2012: Delayed gastric emptying 05/31/2024: Diabetes mellitus type II ([facility]) No date: Diarrhea No date: Diverticulitis No date: Diverticulosis of colon (without mention of hemorrhage) Comment: Diverticulosis 08/29/2017: Dysphagia, unspecified 07/12/2018: Elevated alkaline phosphatase level No date: Essential hypertension, benign No date: GERD (gastroesophageal reflux disease) No date: Hyperlipidemia 09/25/2012: Hypokalemia No date: Hypothyroidism 11/19/2015: Impaired fasting glucose 01/17/2012: Inadequate pelvic muscles 09/01/2016: Lumbar disc disease with radiculopathy 10/15/2018: Lung nodule < 6cm on CT Comment: 10/07/18: incidental 4.5 mm nodule RML No date: thyrotoxicosis No date: Nonrheumatic mitral (valve) insufficiency No date: Obesity 12/21/2006: Other osteoporosis No date: Pancreatitis No date: Paroxysmal SVT (supraventricular tachycardia) ([facility]) No date: Personal history of colonic polyps Comment: Colon polyps 07/13/2007: POLYP STOMACH No date: Stage 3a chronic kidney disease ([facility]) No date: Statin intolerance 11/20/2014: 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 amLODIPine (NORVASC) 5 mg tablet Take 1 tablet by mouth once daily. gabapentin (NEURONTIN) 300 mg capsule Take 1 capsule by mouth daily at bedtime for 90 days. amLODIPine (NORVASC) 2.5 mg tablet Take one tablet daily in addition to 5 mg to equal 7.5 mg daily labetalol (TRANDATE) 200 mg tablet Take 1 tablet by mouth two times a day. isosorbide mononitrate ER (IMDUR) 30 mg 24 hr tablet Take 1 tablet by mouth once daily. meclizine (ANTIVERT) 25 mg tab Take 1 tablet by mouth three times a day as needed (vertigo). levothyroxine (SYNTHROID) 88 mcg tablet Take one tablet daily Monday-Monday and two tablets on Monday blood sugar diagnostic (BLOOD GLUCOSE TEST) test strip Test blood sugar(s) 1 times daily. Dx: Prediabetes Insulin: No Lancets lancets Test blood sugar(s) 1 times daily. Dx: Prediabetes Insulin: No losartan (COZAAR) 100 mg tablet Take 1 tablet by mouth once daily. potassium chloride ER (KLOR-CON) 20 mEq tablet Take 2 tablets by mouth two times a day. polyethylene glycol 3350 17 gram/dose powder Take 17 g by mouth once daily. Dissolve dose in 4 - 8 ounces of liquid and take as directed. doxylamine succinate (SLEEP AID ORAL) Take by mouth daily at bedtime. calcium carbonate-Vit D3-minerals (CALTRATE) 600 mg calcium- 400 unit tab Take 2 tablets by mouth once daily. ondansetron orally disintegrating (ZOFRAN ODT) 4 mg disintegrating tablet Take 1 tablet by mouth every 6 hours as needed for Nausea/Vomiting. 0.9 % sodium chloride (NACL 0.9%) 0.9% solp Infuse 500 ml IV over [address] Biotin 2,500 mcg cap Take 1 capsule by mouth once daily. aspirin, enteric coated (ASPIRIN, ENTERIC COATED) 81 mg EC tablet Take 81 mg by mouth once daily. No current facility-administered medications for this visit. Medications and allergies reviewed by this provider. SOCIAL HISTORY Social History Tobacco Use Smoking status: Former Current packs/day: 0.10 Average packs/day: 0.1 packs/day for 1 year (0.1 ttl pk-yrs) Types: Cigarettes Smokeless tobacco: Never Tobacco comments: Smoked 1 year or less in 1980s. Spouse was smoker in home for 39 years. Father smoked in childhood home. Vaping Use Vaping status: Never Used Substance Use Topics Alcohol use: No Drug use: No REVIEW OF SYSTEMS All other reviewed and negative other than HPI. OBJECTIVE: BP 126/70 Pulse 64 Resp 18 Wt 78.1 kg (172 lb 2.9 oz) SpO2 93% BMI 33.63 kg/m . Vital signs reviewed by this provider. APPEARANCE Well appearing, alert, in no acute distress, well-hydrated, well nourished. EYES conjunctiva and sclera normal. HEART RRR with normal S1 and S2, no murmurs, no gallops, no JVD appreciated LUNG clear to auscultation. No wheezes, rhonchi or rales Abdomen: soft, nondistended, nontender SKIN Skin color, texture, turgor normal, no suspicious rashes or lesions to exposed skin DM foot exam: shoes and socks removed, No deformities, ulcers, calluses, normal distal pulses, and sensitive to 10 gm monofilament Latest Ref [facility] 05/29/2024 WBC 3.70 - 11.00 k/uL 7.43 RBC 3.90 - 5.20 m/uL 4.36 Hemoglobin 11.5 - 15.5 g/dL 12.1 Hematocrit 36.0 - 46.0 % 38.3 MCV 80.0 - 100.0 fL 87.8 MCH 26.0 - 34.0 pg 27.8 MCHC 30.5 - 36.0 g/dL 31.6 RDW-CV 11.5 - 15.0 % 13.3 Platelet Count 150 - 400 k/uL 305 MPV 9.0 - 12.7 fL 9.6 Neut% % 61.3 Abs Neut (ANC) 1.45 - 7.50 k/uL 4.55 Lymph% % 23.8 Abs Lymph 1.00 - 4.00 k/uL 1.77 [place]% % 10.6 Abs [place] <0.87 k/uL 0.79 Eosin% % 3.1 Abs Eosin <0.46 k/uL 0.23 Baso% % 1.1 Abs Baso <0.11 k/uL 0.08 Immature Gran % % 0.1 IMMATURE GRANS (ABS) <0.10 k/uL <0.03 NRBC /100 WBC 0.0 Absolute nRBC <0.01 k/uL <0.01 DTYPE Auto Glucose 74 - 99 mg/dL 90 BUN 7 - 21 mg/dL 15 Creatinine 0.58 - 0.96 mg/dL 1.08 (H) Sodium 136 - 144 mmol/L 134 (L) Potassium 3.7 - 5.1 mmol/L 4.2 Chloride 98 - 107 mmol/L 99 CO2 22 - 30 mmol/L 25 Anion Gap 8 - 15 mmol/L 10 Calcium 8.5 - 10.2 mg/dL 9.6 eGFR >=60 mL/min/1.73m 53 (L) Hemoglobin A1C 4.3 - 5.6 % 6.5 (H) Estimated Average Glucose mg/dL 140 TSH 0.270 - 4.200 mIU/L 2.470 Legend: (H) High (L) Low Urine Albumin:Creatinine Ratio Never done Dilated Retinal Exam Never done Depression Screening Never done Anxiety Screening Never done DTaP,Tdap,Td Vaccine(1 - Tdap) Never done Shingrix Vaccine(1 of 2) Never done RSV Vaccine(1 - 1-dose 60+ series) Never done BP Controlled (<130/80) due on 03/23/2022 Covid-19 Vaccine(2022- season) due on 07/07/2023 Advance Directive Discussion Never done Bone Density Screening due on 01/27/2024 Influenza Vaccine(1) due on 07/07/2024 HbA1C due on 11/29/2024 LDL Cholesterol due on 01/17/2025 Annual PCP Team Chronic Disease Visit due on 05/29/2025 Serum Creatinine due on 05/29/2025 Hemoglobin/Hematocrit due on 05/29/2025 Diabetic Foot Exam due on 06/26/2025 Hepatitis C Screening Completed Pneumococcal Vaccine: 65+ Completed Mammogram Screening Discontinued Colorectal Cancer Screening Discontinued ASSESSMENT/PLAN: 1. 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 Diabetes mellitus type II (HCC) - ICD9: 250.00, ICD10: E11.9 - Worsening control - Blood glucose monitoring on a twice daily schedule - Counseled on healthy diet and regular exercise - Discussed need for and benefit of weight loss. BMI 33.63 kg/(m^2) - Follow up in 6 months, sooner should any other issues arise. - ALBUMIN/CREATININE RATIO, URINE - COMPREHENSIVE METABOLIC PANEL - HEMOGLOBIN A1C 3. Diverticulitis - ICD9: 562.11, ICD10: K57.92 - improved - follow-up as needed Elizabeth Og APRN.CONSTANTINO Prescription instructions reviewed with patient as applicable. Patient advised if symptoms do not improve or if symptoms worsen sooner, to contact their primary care physician. Potential red flag symptoms discussed with the patient. Reviewed appropriate action plan to take if red flag symptoms occur. Patient agreeable to treatment plan. Medical Decision Making: Problems: Low: Acute, uncomplicated illness or injury Moderate: 1+ chronic illnesses with change Data: Unique test(s) ordered: 3+ Risk: Moderate: Moderate risk from testing/treatment Medical Decision Making Level: 4 - Moderate documented in this encounter [facility] 06-14-2024 Telephone encounter Note Patient call in for severe left sided abdominal pain x 3 days. Patient with history of diverticulitis. Nurse Triage assessment completed with protocol recommending for disposition of Go to ED now. Care advice reviewed with patient, patient stated understanding. P Reason for Disposition [1] SEVERE pain (e.g., excruciating) AND [2] present > 1 hour Answer Assessment - Initial Assessment Questions 1. LOCATION: Left lower abdominal pain 2. RADIATION: Denies 3. ONSET: ) X 3 days 4. SUDDEN: Sudden onset 5. PATTERN Constant 6. SEVERITY: Patient's pain is severe; Patient was pacing the floor last evening, states that she should have gone to ED then 7. RECURRENT SYMPTOM: Yes had diverticulitis 8. CAUSE: Diverticulitis 9. RELIEVING/AGGRAVATING FACTORS: Denies 10. OTHER SYMPTOMS: Constipated Protocols used: Abdominal Pain - [id number] [facility] 06-14-2024 Miscellaneous Notes Patient call in for severe left sided abdominal pain x 3 days. Patient with history of diverticulitis. Nurse Triage assessment completed with protocol recommending for disposition of Go to ED now. Care advice reviewed with patient, patient stated understanding. P Reason for Disposition [1] SEVERE pain (e.g., excruciating) AND [2] present > 1 hour Answer Assessment - Initial Assessment Questions 1. LOCATION: Left lower abdominal pain 2. RADIATION: Denies 3. ONSET: ) X 3 days 4. SUDDEN: Sudden onset 5. PATTERN Constant 6. SEVERITY: Patient's pain is severe; Patient was pacing the floor last evening, states that she should have gone to ED then 7. RECURRENT SYMPTOM: Yes had diverticulitis 8. CAUSE: Diverticulitis 9. RELIEVING/AGGRAVATING FACTORS: Denies 10. OTHER SYMPTOMS: Constipated Protocols used: Abdominal Pain - [id number] documented in this encounter [facility] 05-31-2024 Telephone encounter Note Pt notified. Pt is already scheduled with Elizabeth in 4 weeks. Beatriz Veliz MA [facility] 05-31-2024 Miscellaneous Notes Pt notified. Pt is already scheduled with Elizabeth in 4 weeks. Beatriz Veliz MA ----- Message from Elisa Starr MD sent at 05/31/2024 9:07 AM EDT ----- Sodium level improving, but still borderline low. Kidney function stable. Based on A1c of 6.5, patient would now be considered diabetic. Recommend OV in 2-4 weeks to discuss new diabetes diagnosis, symptoms, monitoring, and treatment options. Other labs normal. documented in this encounter [facility] 05-31-2024 Telephone encounter Note ----- Message from Elisa Starr MD sent at 05/31/2024 9:07 AM EDT ----- Sodium level improving, but still borderline low. Kidney function stable. Based on A1c of 6.5, patient would now be considered diabetic. Recommend OV in 2-4 weeks to discuss new diabetes diagnosis, symptoms, monitoring, and treatment options. Other labs normal. [facility] 05-29-2024 Instructions Elisa Starr MD - 05/29/2024 9:55 AM EDT BONE MINERAL DENSITY PATIENT INSTRUCTIONS ======= Bone mineral density testing measures the amount [...] you can resume your usual activities immediately. documented in this encounter [facility] 05-29-2024 History of Present illness Narrative Chief Complaint Patient presents with: F/U 6 months HPI Tashia Fernandez is a 74 year old female who presents here today for Above Complaints. Patient notes that she was started on Ranexa 2 days ago for microvascular angina by Dr. Benavides's office. Patient wanted to make sure she could take this with her history of CKD. Did take 1 dose yesterday. No other changes to her regimen. Complains that about 4 weeks ago she was driving through [place] when she suddenly felt like she was going to pass out, but did not have LOC. States that she felt like her muscles went limp. 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 Made it to [employer] and was able to get something to eat. About 30 minutes later, she felt much improved. Had another episode like this at her table at home and checked her sugar and it was in the 70's. States that she had not eaten for several hours prior to either of these episodes. Denies shaking, sweating, nausea, confusion, chest pain, palpitations, SOB, headache, loss of vision, slurred speech, facial droop, numbness/tingling. Patient states she told her optho about this episode and they ordered US of carotids which were normal. Past medical history, appointments, medications, allergies reviewed. Previous Medical History PAST MEDICAL HISTORY Diagnosis Date Contact dermatitis and other eczema Degenerative arthritis of knee 05/24/2011 Delayed gastric emptying 07/24/2012 Diarrhea Diverticulitis Diverticulosis of colon (without mention of hemorrhage) Diverticulosis Dysphagia, unspecified 08/29/2017 Elevated alkaline phosphatase level 07/12/2018 Essential hypertension, benign GERD (gastroesophageal reflux disease) Hyperlipidemia Hypokalemia 09/25/2012 Hypothyroidism Impaired fasting glucose 11/19/2015 Inadequate pelvic muscles 01/17/2012 Lumbar disc disease with radiculopathy 09/01/2016 Lung nodule < 6cm on CT 10/15/2018 10/07/18: incidental 4.5 mm nodule RML thyrotoxicosis Nonrheumatic mitral (valve) insufficiency Obesity Other osteoporosis 12/21/2006 Pancreatitis Paroxysmal SVT (supraventricular tachycardia) ([facility]) Personal history of colonic polyps Colon polyps POLYP STOMACH 07/13/2007 Stage 3a chronic kidney disease (HCC) Statin intolerance 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--surgery not needed (2015) Tethering of spinal cord ([facility]) 2014 Trigeminal neuralgia 10/11/2011 Trochanteric bursitis of left hip 07/24/2012 Unspecified hemorrhoids without mention of complication Hemorrhoids Previous Surgical History PAST SURGICAL HISTORY Procedure Laterality Date COLONOSCOPY FLX DX W/COLLJ SPEC WHEN PFRMD 12/2018 Colonoscopy COLONOSCOPY FLX DX W/COLLJ SPEC WHEN PFRMD 07/13/2007 Lax colon COLONOSCOPY FLX DX W/COLLJ SPEC WHEN PFRMD 03/26/2014 Colonoscopy COLONOSCOPY FLX DX W/COLLJ SPEC WHEN PFRMD 12/2018 [id number] 10 years COLONOSCOPY GEN ANES 04/28/2021 DECOMPRESSION PLANTAR DIGITAL NERVE 2000 heel spur/ plantar fasciitis repair Rt EGD 06/02/2021 EGD TRANSORAL BIOPSY SINGLE/MULTIPLE 07/13/2007 Gastritis, fundic gland polyps EGD W/O [facility] SPEC VARICIES INJ 01/03/2024 Dr. Kelley ESOPHAGOGASTRODUODENOSCOPY TRANSORAL DIAGNOSTIC 03/26/2014 EGD EYE SURGERY HX LAPAROSCOPY SURG CHOLECYSTECTOMY Cholecystectomy, lap LIG/TRNSXJ FLP TUBE ABDL/VAG APPR UNI/BI LIGATE FALLOPIAN TUBE NEUROPLASTY &/TRANSPOS MEDIAN NRV CARPAL TUNNE Carpal tunnel decomp bilateral OPEN REPAIR OF ROTATOR CUFF ACUTE 1992 Rotator cuff repair, right STRESS TEST,COMPLETE_*FL Family History FAMILY HISTORY Problem Relation Age of Onset Diabetes Mother Heart Mother Stroke Mother Hypertension Mother other (MVA) Father Hypertension Sister Heart Sister Hypertension Sister Heart Sister Hypertension Brother Heart Brother Hypertension Brother Cancer Brother Oral cancer Cancer Paternal Grandfather skin Breast Cancer Maternal Aunt Asthma No Family History Patient Allergies ALLERGIES Allergen Reactions Lipitor [Atorvastat* Other: See Comments muscle cramps Spironolactone Other: See Comments headache Aceon [Perindopril * Rash, Cough Codeine Intolerance Chest pain Lisinopril Cough dry hacking cough Current Medications Current Outpatient Medications on File Prior to Visit Medication Sig ranolazine ER (RANEXA) 500 mg 12 hr tablet Take 1 tablet by mouth two times a day. amLODIPine (NORVASC) 5 mg tablet Take 1 tablet by mouth once daily. gabapentin (NEURONTIN) 300 mg capsule Take 1 capsule by mouth daily at bedtime for 90 days. amLODIPine (NORVASC) 2.5 mg tablet Take one tablet daily in addition to 5 mg to equal 7.5 mg daily labetalol (TRANDATE) 200 mg tablet Take 1 tablet by mouth two times a day. isosorbide mononitrate ER (IMDUR) 30 mg 24 hr tablet Take 1 tablet by mouth once daily. meclizine (ANTIVERT) 25 mg tab Take 1 tablet by mouth three times a day as needed (vertigo). levothyroxine (SYNTHROID) 88 mcg tablet Take one tablet daily Monday-Monday and two tablets on Monday blood sugar diagnostic (BLOOD GLUCOSE TEST) test strip Test blood sugar(s) 1 times daily. Dx: Prediabetes Insulin: No Lancets lancets Test blood sugar(s) 1 times daily. Dx: Prediabetes Insulin: No losartan (COZAAR) 100 mg tablet Take 1 tablet by mouth once daily. potassium chloride ER (KLOR-CON) 20 mEq tablet Take 2 tablets by mouth two times a day. polyethylene glycol 3350 17 gram/dose powder Take 17 g by mouth once daily. Dissolve dose in 4 - 8 ounces of liquid and take as directed. doxylamine succinate (SLEEP AID ORAL) Take by mouth daily at bedtime. calcium carbonate-Vit D3-minerals (CALTRATE) 600 mg calcium- 400 unit tab Take 2 tablets by mouth once daily. ondansetron orally disintegrating (ZOFRAN ODT) 4 mg disintegrating tablet Take 1 tablet by mouth every 6 hours as needed for Nausea/Vomiting. 0.9 % sodium chloride (NACL 0.9%) 0.9% solp Infuse 500 ml IV over [address] Biotin 2,500 mcg cap Take 1 capsule by mouth once daily. aspirin, enteric coated (ASPIRIN, ENTERIC COATED) 81 mg EC tablet Take 81 mg by mouth once daily. No current facility-administered medications on file prior to visit. Social History Social History Tobacco Use Smoking status: Former Packs/day: 0.10 Years: 1.00 Additional pack years: 0.00 Total pack years: 0.10 Types: Cigarettes Smokeless tobacco: Never Tobacco comments: Smoked 1 year or less in 1980s. Spouse was smoker in home for 39 years. Father smoked in childhood home. Vaping Use Vaping Use: Never used Substance Use Topics Alcohol use: No Drug use: No Review of Symptoms REVIEW OF SYSTEMS See HPI EXAM: BP 138/72 Pulse 70 Resp 16 Wt 80 kg (176 lb 6.4 oz) SpO2 97% BMI 34.45 kg/m General Appearance: Well appearing, alert, in no acute distress, well-hydrated, well nourished.. Skin: Skin color, texture, turgor normal, no suspicious rashes or lesions. Lungs: Lungs clear to auscultation. No wheezing, rhonchi, rales.. Heart: RRR without murmur, gallop, or rubs. No ectopy. Abdomen: Normal abdominal exam, Abdomen soft, non-tender. Bowel sounds normal. No masses, organomegaly. Extremities: No deformities, edema, skin discoloration, clubbing or cyanosis. Good capillary refill. . Neurologic: Negative findings: speech normal, mental status intact, cranial nerves 2-12 intact, muscle tone normal, muscle strength normal, sensation to light touch and pinprick normal, reflexes normal and symmetric. Health Maintenance List Depression Screening Never done Anxiety Screening Never done RSV Vaccine(1 - 1-dose 60+ series) Never done BP Controlled (<130/80) due on 03/23/2022 Covid-19 Vaccine( - 2022- season) due on 07/07/2023 Advance Directive Discussion Never done Bone Density Screening due on 01/27/2024 DTaP,Tdap,Td Vaccine(1 - Tdap) due on 05/29/2024 Shingrix Vaccine(1 of 2) due on 05/29/2024 Influenza Vaccine(1) due on 07/07/2024 LDL Cholesterol due on 01/17/2025 Annual PCP Team Chronic Disease Visit due on 03/06/2025 Serum Creatinine due on 05/16/2025 Diabetes Screening due on 05/16/2027 Hepatitis C Screening Completed Pneumococcal Vaccine: 65+ Completed Mammogram Screening Discontinued Colorectal Cancer Screening Discontinued Data reviewed Latest Ref Rng 01/18/2024 02/27/2024 03/06/2024 05/16/2024 Protein, Total 6.3 - 8.0 g/dL 7.1 7.0 6.7 Albumin 3.9 - 4.9 g/dL 4.2 4.0 4.2 Calcium 8.5 - 10.2 mg/dL 9.7 9.6 9.3 Bilirubin, Total 0.2 - 1.3 mg/dL 0.4 0.4 0.2 Alkaline Phosphatase 34 - 123 U/L 107 102 119 AST 13 - 35 U/L 18 23 16 ALT 7 - 38 U/L 13 17 13 Glucose 74 - 99 mg/dL 108 (H) 76 103 (H) BUN 7 - 21 mg/dL 21 17 11 Creatinine 0.58 - 0.96 mg/dL 1.10 (H) 1.07 (H) 0.97 (H) Sodium 136 - 144 mmol/L 135 (L) 133 (L) 132 (L) Potassium 3.7 - 5.1 mmol/L 4.3 4.9 4.5 Chloride 98 - 107 mmol/L 100 100 97 (L) CO2 22 - 30 mmol/L 27 22 25 Anion Gap 8 - 15 mmol/L 8 (L) 11 10 eGFR >=60 mL/min/1.73m 53 (L) 54 (L) 61 Cholesterol, Total <200 mg/dL 174 Triglyceride <150 mg/dL 98 HDL Cholesterol >39 mg/dL 51 Non HDL Cholesterol <130 mg/dL 123 Fasting Time hrs 12 VLDL Cholesterol <30 mg/dL 20 TC:HDL Ratio <5.10 3.41 LDL Cholesterol <100 mg/dL 103 (H) LDL:HDL Ratio <2.54 2.02 Hemoglobin A1C 4.3 - 5.6 % 6.2 (H) Estimated Average Glucose mg/dL 131 TSH 0.270 - 4.200 mIU/L 4.470 (H) 1.070 Legend: (H) High (L) Low ASSESSMENT/PLAN: 1. Episodic lightheadedness - ICD9: 780.4, ICD10: R42 (primary diagnosis) Suspect 2/2 hypoglycemic episode. Recent carotid US negative. Normal neuro exam today. Patient discussed symptoms with cardiology and they suggested loop recorder which she refused. Refusing holter today. Will obtain labs and encouraged eating 3 healthy meals per day to prevent low sugars. Red flags for re-assessment reviewed with patient in detail. - COMPLETE BLOOD COUNT AND DIFFERENTIAL - HEMOGLOBIN A1C - THYROID STIMULATING HORMONE 2. Hypoglycemia - ICD9: 251.2, ICD10: E16.2 See above. - HEMOGLOBIN A1C 3. Hyponatremia - ICD9: 276.1, ICD10: E87.1 Noted on recent labs. Repeat BMP. - BASIC METABOLIC PANEL 4. Essential hypertension, benign - ICD9: 401.1, ICD10: I10 - Controlled - Continue current medications - Recommend home blood pressure monitoring, to bring results to next visit - Encouraged sodium restriction, DASH or Mediterranean diet - Recommend regular aerobic exercise 5. Hyperlipidemia, unspecified hyperlipidemia type - ICD9: 272.4, ICD10: E78.5 - Controlled. Intolerant to statins. - Continue current medications - Counseled on healthy diet and regular exercise 6. ASHD (arteriosclerotic heart disease) - ICD9: 414.00, ICD10: I25.10 Asymptomatic on medical management. Start ranexa with creatinine clearance above 60. F/u cardiology recommendations. 7. Paroxysmal SVT (supraventricular tachycardia) (HCC) - ICD9: 427.0, ICD10: I47.10 Asympotmatic on beta gustavo. 8. Postablative hypothyroidism - ICD9: 244.1, ICD10: E89.0 - Instructed patient on importance of taking on an empty stomach either first thing in the morning or at bedtime. - check TSH today - continue current dose of Synthroid 0.088 mg 9. Prediabetes - ICD9: 790.29, ICD10: R73.03 Recheck A1c. Discussed low carb diet with meals TID. Red flags for re-assessment reviewed with patient in detail. 10. Stage 3a chronic kidney disease (HCC) - ICD9: 585.3, ICD10: N18.31 - eGFR: 61 Stable - Counseled on avoiding NSAIDs, adequate hydration - Counseled on low sodium diet 11. Age-related osteoporosis without current pathological fracture - ICD9: 733.01, ICD10: M81.0 - continue tx with Ranexa. - set up for BMD AP Spine and Hip Unilateral - Reviewed the need for Calcium and Vitamin D supplements and weight bearing exercise as tolerated - DXA-AXIAL SKELETON - BD DXA TRABECULAR BONE SCORE (TBS) Elisa Starr MD documented in this encounter [facility] 05-27-2024 History of Present illness Narrative Images from the original note were not included. Jonna Benavides MD Interventional Cardiology [address] [place] [address] [phone] Chief Complaint Patient presents with: Palpitations HISTORY OF PRESENT ILLNESS: Ms. Fernandez is a 74 year old female seen in my office today for assessment management history of hypertensive heart disease with microvascular angina normal coronaries and multiple cardiac risk factor for CAD including hyperlipidemia age and hypertension Patient continued having some angina with exertion retrosternal discomfort relieved with rest with no evidence of obstructive coronary artery isosorbide dinitrate is helping the pain considerably blood pressure is well-controlled Cardiac Risk Factors age (male over 45, female over 55), hyperlipidemia, obesity, hypertension, family history of CAD PAST MEDICAL HISTORY Diagnosis Date Contact dermatitis and other eczema Degenerative arthritis of knee 05/24/2011 Delayed gastric emptying 07/24/2012 Diarrhea Diverticulitis Diverticulosis of colon (without mention of hemorrhage) Diverticulosis Dysphagia, unspecified 08/29/2017 Elevated alkaline phosphatase level 07/12/2018 Essential hypertension, benign GERD (gastroesophageal reflux disease) Hyperlipidemia Hypokalemia 09/25/2012 Hypothyroidism Impaired fasting glucose 11/19/2015 Inadequate pelvic muscles 01/17/2012 Lumbar disc disease with radiculopathy 09/01/2016 Lung nodule < 6cm on CT 10/15/2018 10/07/18: incidental 4.5 mm nodule RML thyrotoxicosis Nonrheumatic mitral (valve) insufficiency Obesity Other osteoporosis 12/21/2006 Pancreatitis Paroxysmal SVT (supraventricular tachycardia) (HCC) Personal history of colonic polyps Colon polyps POLYP STOMACH 07/13/2007 Stage 3a chronic kidney disease (HCC) Statin intolerance 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--surgery not needed (2015) Tethering of spinal cord (HCC) 2014 Trigeminal neuralgia 10/11/2011 Trochanteric bursitis of left hip 07/24/2012 Unspecified hemorrhoids without mention of complication Hemorrhoids PAST SURGICAL HISTORY Procedure Laterality Date COLONOSCOPY FLX DX W/COLLJ SPEC WHEN PFRMD 12/2018 Colonoscopy COLONOSCOPY FLX DX W/COLLJ SPEC WHEN PFRMD 07/13/2007 Lax colon COLONOSCOPY FLX DX W/COLLJ SPEC WHEN PFRMD 03/26/2014 Colonoscopy COLONOSCOPY FLX DX W/COLLJ SPEC WHEN PFRMD 12/2018 [id number] 10 years COLONOSCOPY GEN ANES 04/28/2021 DECOMPRESSION PLANTAR DIGITAL NERVE 2000 heel spur/ plantar fasciitis repair Rt EGD 06/02/2021 EGD TRANSORAL BIOPSY SINGLE/MULTIPLE 07/13/2007 Gastritis, fundic gland polyps EGD W/O [facility] SPEC VARICIES INJ 01/03/2024 Dr. Kelley ESOPHAGOGASTRODUODENOSCOPY TRANSORAL DIAGNOSTIC 03/26/2014 EGD EYE SURGERY HX LAPAROSCOPY SURG CHOLECYSTECTOMY Cholecystectomy, lap LIG/TRNSXJ FLP TUBE ABDL/VAG APPR UNI/BI LIGATE FALLOPIAN TUBE NEUROPLASTY &/TRANSPOS MEDIAN NRV CARPAL TUNNE Carpal tunnel decomp bilateral OPEN REPAIR OF ROTATOR CUFF ACUTE 1992 Rotator cuff repair, right STRESS TEST,COMPLETE_*FL FAMILY HISTORY Problem Relation Age of Onset Diabetes Mother Heart Mother Stroke Mother Hypertension Mother other (MVA) Father Hypertension Sister Heart Sister Hypertension Sister Heart Sister Hypertension Brother Heart Brother Hypertension Brother Cancer Brother Oral cancer Cancer Paternal Grandfather skin Breast Cancer Maternal Aunt Asthma No Family History Social History Tobacco Use Smoking status: Former Packs/day: 0.10 Years: 1.00 Additional pack years: 0.00 Total pack years: 0.10 Types: Cigarettes Smokeless tobacco: Never Tobacco comments: Smoked 1 year or less in 1980s. Spouse was smoker in home for 39 years. Father smoked in childhood home. Vaping Use Vaping Use: Never used Substance Use Topics Alcohol use: No Drug use: No ALLERGIES Allergen Reactions Lipitor [Atorvastat* Other: See Comments muscle cramps Spironolactone Other: See Comments headache Aceon [Perindopril * Rash, Cough Codeine Intolerance Chest pain Lisinopril Cough dry hacking cough Medications: Current Outpatient Medications Medication Sig Dispense Refill amLODIPine (NORVASC) 5 mg tablet Take 1 tablet by mouth once daily. 90 tablet 1 gabapentin (NEURONTIN) 300 mg capsule Take 1 capsule by mouth daily at bedtime for 90 days. 90 capsule 0 amLODIPine (NORVASC) 2.5 mg tablet Take one tablet daily in addition to 5 mg to equal 7.5 mg daily 90 tablet 1 labetalol (TRANDATE) 200 mg tablet Take 1 tablet by mouth two times a day. 180 tablet 1 isosorbide mononitrate ER (IMDUR) 30 mg 24 hr tablet Take 1 tablet by mouth once daily. 90 tablet 1 meclizine (ANTIVERT) 25 mg tab Take 1 tablet by mouth three times a day as needed (vertigo). 30 tablet 1 levothyroxine (SYNTHROID) 88 mcg tablet Take one tablet daily Monday-Monday and two tablets on Monday blood sugar diagnostic (BLOOD GLUCOSE TEST) test strip Test blood sugar(s) 1 times daily. Dx: Prediabetes Insulin: No 50 Strip 11 Lancets lancets Test blood sugar(s) 1 times daily. Dx: Prediabetes Insulin: No 100 Each 11 losartan (COZAAR) 100 mg tablet Take 1 tablet by mouth once daily. 90 tablet 3 potassium chloride ER (KLOR-CON) 20 mEq tablet Take 2 tablets by mouth two times a day. 360 tablet 3 polyethylene glycol 3350 17 gram/dose powder Take 17 g by mouth once daily. Dissolve dose in 4 - 8 ounces of liquid and take as directed. doxylamine succinate (SLEEP AID ORAL) Take by mouth daily at bedtime. calcium carbonate-Vit D3-minerals (CALTRATE) 600 mg calcium- 400 unit tab Take 2 tablets by mouth once daily. ondansetron orally disintegrating (ZOFRAN ODT) 4 mg disintegrating tablet Take 1 tablet by mouth every 6 hours as needed for Nausea/Vomiting. 20 tablet 1 0.9 % sodium chloride (NACL 0.9%) 0.9% solp Infuse 500 ml IV over [address] 500 mL 0 Biotin 2,500 mcg cap Take 1 capsule by mouth once daily. aspirin, enteric coated (ASPIRIN, ENTERIC COATED) 81 mg EC tablet Take 81 mg by mouth once daily. ranolazine ER (RANEXA) 500 mg 12 hr tablet Take 1 tablet by mouth two times a day. 60 tablet 2 No current facility-administered medications for this visit. Review of Systems Constitutional: Negative for chills, diaphoresis, fever, malaise/fatigue and weight loss. HENT: Negative for congestion, ear discharge, ear pain, hearing loss, nosebleeds, sinus pain, sore throat and tinnitus. Eyes: Negative for blurred vision, double vision, photophobia, pain, discharge and redness. Respiratory: Negative for cough, hemoptysis, sputum production, shortness of breath, wheezing and stridor. Cardiovascular: Positive for chest pain. Negative for palpitations, orthopnea, claudication, leg swelling and PND. Gastrointestinal: Negative for abdominal pain, blood in stool, constipation, diarrhea, heartburn, melena, nausea and vomiting. Genitourinary: Negative for dysuria, flank pain, frequency, hematuria and urgency. Musculoskeletal: Negative for back pain, falls, joint pain, myalgias and neck pain. Skin: Negative for itching and rash. Neurological: Negative for dizziness, tingling, tremors, sensory change, speech change, focal weakness, seizures, loss of consciousness, weakness and headaches. Endo/Heme/Allergies: Negative for environmental allergies and polydipsia. Does not bruise/bleed easily. Psychiatric/Behavioral: Negative for depression, hallucinations, memory loss, substance abuse and suicidal ideas. The patient is not nervous/anxious and does not have insomnia. Physical Examination: Vitals:BP 136/75 Pulse 57 Ht 5' 0 (1.52m) Wt 176 lb 12.8 oz (80.2kg) SpO2 97% BMI 34.53 kg/(m^2). BP w/Orthostatic Vitals Date and Time Orthostatic BP Orthostatic Pulse BP Pulse BP Position BP Site BP Cuff Size 05/27/24 1116 -- -- 136/75 57 -- -- -- Last 2 Encounter Wt Readings: Date: Wt: 05/27/2024 80.2 kg (176 lb 12.8 oz) 03/06/2024 79.8 kg (176 lb) Physical Exam Constitutional: General: She is not in acute distress. Appearance: She is not diaphoretic. HENT: Head: Normocephalic and atraumatic. Right Ear: External ear normal. Left Ear: External ear normal. Nose: Nose normal. Mouth/Throat: Pharynx: Oropharynx is clear. Eyes: General: Right eye: No discharge. Left eye: No discharge. Conjunctiva/sclera: Conjunctivae normal. Pupils: Pupils are equal, round, and reactive to light. Cardiovascular: Rate and Rhythm: Normal rate and regular rhythm. Heart sounds: Normal heart sounds, S1 normal and S2 normal. No murmur heard. No friction rub. No gallop. No S3 or S4 sounds. Pulmonary: Effort: Pulmonary effort is normal. No respiratory distress. Breath sounds: Normal breath sounds. No wheezing or rales. Chest: Chest wall: No tenderness. Musculoskeletal: General: Normal range of motion. Cervical back: Normal range of motion and neck supple. Skin: General: Skin is warm and dry. Neurological: Mental Status: She is alert and oriented to person, place, and time. Psychiatric: Mood and Affect: Mood normal. Thought Content: Thought content normal. Pertinent Labs: CBC: Hemoglobin (g/dL) Date Value 12/27/2022 12.6 10/22/2021 13.0 Hematocrit (%) Date Value 12/27/2022 39.0 10/22/2021 41.1 WBC (k/uL) Date Value 12/27/2022 8.15 10/22/2021 6.46 Platelet Count (k/uL) Date Value 12/27/2022 302 10/22/2021 293 BMP: Glucose (mg/dL) Date Value 05/16/2024 103 10/22/2021 80 Potassium (mmol/L) Date Value 05/16/2024 4.5 10/22/2021 4.1 Sodium (mmol/L) Date Value 05/16/2024 132 10/22/2021 138 Chloride (mmol/L) Date Value 05/16/2024 97 10/22/2021 102 CO2 (mmol/L) Date Value 05/16/2024 25 10/22/2021 26 Creatinine (mg/dL) Date Value 05/16/2024 0.97 10/22/2021 1.02 BUN (mg/dL) Date Value 05/16/2024 11 10/22/2021 17 Anion Gap (mmol/L) Date Value 05/16/2024 10 10/22/2021 10 Calcium (mg/dL) Date Value 10/22/2021 9.0 Calcium, Total (mg/dL) Date Value 05/16/2024 9.3 INR: Lipid Profile: Cholesterol, Total Date Value Ref Range Status 01/18/2024 174 <200 mg/dL Final Comment: <200 mg/dL, Desirable 200-239 mg/dL, Borderline high >239 mg/dL, High HDL Cholesterol Date Value Ref Range Status 01/18/2024 51 >39 mg/dL Final Comment: 40-59 mg/dL, Acceptable >59 mg/dL, High: Negative risk factor for coronary heart disease <40 mg/dL, Low: Positive risk factor for coronary heart disease LDL Cholesterol Date Value Ref Range Status 01/18/2024 103 (H) <100 mg/dL Final Comment: <100 mg/dL, Optimal 100-129 mg/dL, Near optimal/above optimal 130-159 mg/dL, Borderline high 160-189 mg/dL, High >189 mg/dL, Very high Secondary prevention optimal LDL Cholesterol levels are recommended to be < 70 mg/dL Triglyceride Date Value Ref Range Status 01/18/2024 98 <150 mg/dL Final Comment: <150 mg/dL, Normal 150-199 mg/dL, Borderline high 200-499 mg/dL, High >499 mg/dL, Very high Hemoglobin A1C: No results found for: HGBA1C TSH: No results found for: TSHREFL Prior Cardiac Testing NONE Assessment and Plan: 74 years old female patient with microvascular angina and hypertensive heart disease ASSESSMENT/PLAN: 1. Primary hypertension - ICD9: 401.9, ICD10: I10 (primary diagnosis) - Controlled - Continue current medications - Recommend home blood pressure monitoring, to bring results to next visit - Encouraged sodium restriction, DASH or Mediterranean diet - Recommend regular aerobic exercise 2. Paroxysmal SVT (supraventricular tachycardia) (HCC) - ICD9: 427.0, ICD10: I47.10 Stable paroxysmal supraventricular tachycardia patient on beta-blockers 3. Pure hypercholesterolemia - ICD9: 272.0, ICD10: E78.00 Patient cannot take statin due to severe muscle cramp and side effect of medication 4. Microvascular angina (HCC) - ICD9: 413.9, ICD10: I20.89 Stable microvascular angina limiting patient for any physical activity Will add Ranexa 500 mg twice a day for symptomatic relief Jonna Benavides MD Follow up plannin MONTHS Electronically signed by Jonna Benavides MD on May 27, 2024, 11:49 AM The above note was partially created using a dictation recognition software. A reasonable attempt has been made to correct any errors. documented in this encounter [facility] 05-16-2024 History of Present illness Narrative [facility] Telephonic Outreach Provider Action/FYI Monthly outreach call # 1 Contacted for: Routine Telephonic Outreach Contact made with patient: No, left message. Sharifa Stewart RN May 16, 2024 3:05 PM documented in this encounter [facility] 05-15-2024 Telephone encounter Note Spoke with pt and she will come in tomorrow to get past due lab done. The patient has been identified by name and date of : Yes Caregiver verified no other encounters exist for this prescription request: Yes Caregiver confirmed with patient/requestor that no other refills are due, in the near future, with this provider at this time: Yes The last office visit in the department: 03/06/2024 Does the patient have a future office visit with this provider/department: Yes 05/29/2024 Requested Prescriptions Pending Prescriptions Disp Refills amLODIPine (NORVASC) 5 mg tablet 90 tablet 1 Sig: Take 1 tablet by mouth once daily. Gia Wilson LPN May 15, 2024 4:15 PM [facility] 05-15-2024 Miscellaneous Notes Spoke with pt and she will come in tomorrow to get past due lab done. The patient has been identified by name and date of : Yes Caregiver verified no other encounters exist for this prescription request: Yes Caregiver confirmed with patient/requestor that no other refills are due, in the near future, with this provider at this time: Yes The last office visit in the department: 03/06/2024 Does the patient have a future office visit with this provider/department: Yes 05/29/2024 Requested Prescriptions Pending Prescriptions Disp Refills amLODIPine (NORVASC) 5 mg tablet 90 tablet 1 Sig: Take 1 tablet by mouth once daily. Gia Wilson LPN May 15, 2024 4:15 PM documented in this encounter [facility] 05-06-2024 History of Present illness Narrative Associated Order(s): Additional Injections: L ring A1 Post-Procedure Diagnose(s): Trigger ring finger of left hand Anju Hairston PA-C Department of Orthopaedics Orthopaedics [address] [facility] [address] Dept: [phone] Dept May 06, 2024 CHIEF COMPLAINT: Established Patient and Trigger Finger of the Left Hand Ms. Tashia Fernandez is a 74 year old female who presents with locking and clicking in her left ring digit which has been bothering her for the past 3 or 4 months. She complains of intermittent 10 out of 10 burning pain at the base of the finger. Digit is not locking. Patient is right-hand dominant, she ambulates with the assistance of a cane. She reports that she is not a diabetic, her most recent hemoglobin A1c was 6.2. Her daughter who has autism is scheduled to have her gallbladder removed in 14 days. ASSESSMENT: M65.342 Trigger ring finger of left hand (primary encounter diagnosis) PLAN: She has a trigger finger, she had a previous corticosteroid injection for a right ring trigger finger, injection did help quite a bit. We discussed doing a left ring trigger injection and trying an oval 8 splint today. Certainly if clicking and locking persist we can get her scheduled for surgery. Ms. Tashia Fernandez was advised as to contrast therapies and/or to take analgesics/anti-inflammatories as needed and all contraindications were reviewed. OBJECTIVE: Ms. Tashia Fernandez is a pleasant 74 year old in no apparent distress. Gen:There were no vitals taken for this visit. nl development, obese, no deformities ENT: Normocephalic, normal hearing, moist mucosa CV: Pulses:Radial= 2+ and symmetric, capillary refill < 2 secs, no peripheral edema/varicosities Skin: no rash, bruising or lesions. Good turgor. Psych: cooperative and appropriate, alert and oriented x 3, good mood and affect. Musculoskeletal: Left ring digit with a palpable nodule at the A1 kathy site, digit is clicking with flexion extension but not locking. No locking or catching of any of the remaining digits on the left hand. In addition to the comprehensive evaluation, assessment and plan outlined above, and as a distinct and separate element to the visit today, separate from a DME order of oval 8 , we have made the determination to proceed with an injection to aid in the management of the patient's condition. We discussed the risks, benefits, alternatives and expected outcomes of this injection in detail, and the patient agreed to proceed. The procedure was performed as detailed below. Additional Injections: L ring A1 for trigger finger Informed Consent Consent Obtained: Verbal [place] Protocol A moment to CARE was completed. SIGN IN Sign in communication not applicable due to emergent procedure. Personnel directly involved with the procedure wore the appropriate PPE. Special Equipment: N/A Patient/Surrogate Stated/Verified: Patient name, Date of , Relevant allergies and Intended procedure TIME OUT Intended patient and procedure match the source document(s). Consent documented and matches the intended procedure. Relevant labs, photos, and/or imaging studies have been reviewed. Correct side/site marked and visible. Medications required for procedure verified. No fire risk assessment and interventions applicable. No implant(s) inserted. 05/06/2024 9:39 AM The procedure site was prepped in the usual sterile fashion. Medications: 3 mg betamethasone acetate-betamethasone sodium phosphate 6 mg/mL Anesthetics: 0.5 mL lidocaine (PF) 10 mg/mL (1 %) Outcome: tolerated well, no immediate complications Post-injection instructions were reviewed with the patient and the patient voiced understanding of these instructions. SIGN OUT No specimen collected. No instruments, equipment or retained foreign bodies applicable. Post-procedure follow-up management communicated and Plan of Care Visit completed when applicable Imaging: Deferred today Supporting Subjective Information Below: Past Surgical History: PAST SURGICAL HISTORY Procedure Laterality Date COLONOSCOPY FLX DX W/COLLJ SPEC WHEN PFRMD 12/2018 Colonoscopy COLONOSCOPY FLX DX W/COLLJ SPEC WHEN PFRMD 07/13/2007 Lax colon COLONOSCOPY FLX DX W/COLLJ SPEC WHEN PFRMD 03/26/2014 Colonoscopy COLONOSCOPY FLX DX W/COLLJ SPEC WHEN PFRMD 12/2018 [id number] 10 years COLONOSCOPY GEN ANES 04/28/2021 DECOMPRESSION PLANTAR DIGITAL NERVE 1999 heel spur/ plantar fasciitis repair Rt EGD 06/02/2021 EGD TRANSORAL BIOPSY SINGLE/MULTIPLE 07/13/2007 Gastritis, fundic gland polyps EGD W/O [facility] SPEC VARICIES INJ 01/03/2024 Dr. Kelley ESOPHAGOGASTRODUODENOSCOPY TRANSORAL DIAGNOSTIC 03/26/2014 EGD EYE SURGERY HX LAPAROSCOPY SURG CHOLECYSTECTOMY Cholecystectomy, lap LIG/TRNSXJ FLP TUBE ABDL/VAG APPR UNI/BI LIGATE FALLOPIAN TUBE NEUROPLASTY &/TRANSPOS MEDIAN NRV CARPAL TUNNE Carpal tunnel decomp bilateral OPEN REPAIR OF ROTATOR CUFF ACUTE 1992 Rotator cuff repair, right STRESS TEST,COMPLETE_*FL Medications: Current Outpatient Medications Medication Sig gabapentin (NEURONTIN) 300 mg capsule Take 1 capsule by mouth daily at bedtime for 90 days. amLODIPine (NORVASC) 2.5 mg tablet Take one tablet daily in addition to 5 mg to equal 7.5 mg daily labetalol (TRANDATE) 200 mg tablet Take 1 tablet by mouth two times a day. isosorbide mononitrate ER (IMDUR) 30 mg 24 hr tablet Take 1 tablet by mouth once daily. meclizine (ANTIVERT) 25 mg tab Take 1 tablet by mouth three times a day as needed (vertigo). levothyroxine (SYNTHROID) 88 mcg tablet Take one tablet daily Monday-Monday and two tablets on Monday amLODIPine (NORVASC) 5 mg tablet Take 1 tablet by mouth once daily. losartan (COZAAR) 100 mg tablet Take 1 tablet by mouth once daily. potassium chloride ER (KLOR-CON) 20 mEq tablet Take 2 tablets by mouth two times a day. polyethylene glycol 3350 17 gram/dose powder Take 17 g by mouth once daily. Dissolve dose in 4 - 8 ounces of liquid and take as directed. doxylamine succinate (SLEEP AID ORAL) Take by mouth daily at bedtime. calcium carbonate-Vit D3-minerals (CALTRATE) 600 mg calcium- 400 unit tab Take 2 tablets by mouth once daily. Biotin 2,500 mcg cap Take 1 capsule by mouth once daily. aspirin, enteric coated (ASPIRIN, ENTERIC COATED) 81 mg EC tablet Take 81 mg by mouth once daily. pantoprazole DR (PROTONIX) 40 mg tablet TAKE 1 TABLET BY MOUTH ONCE DAILY. TAKE ON EMPTY STOMACH 1/2 HOUR BEFORE MEAL. (Patient not taking: Reported on 05/06/2024) blood sugar diagnostic (BLOOD GLUCOSE TEST) test strip Test blood sugar(s) 1 times daily. Dx: Prediabetes Insulin: No Lancets lancets Test blood sugar(s) 1 times daily. Dx: Prediabetes Insulin: No DULoxetine (CYMBALTA) 30 mg capsule Take 1 capsule by mouth once daily. (Patient not taking: Reported on 05/06/2024) ondansetron orally disintegrating (ZOFRAN ODT) 4 mg disintegrating tablet Take 1 tablet by mouth every 6 hours as needed for Nausea/Vomiting. 0.9 % sodium chloride (NACL 0.9%) 0.9% solp Infuse 500 ml IV over [address] Current Facility-Administered Medications Medication Dose Route Frequency perflutren lipid microspheres 1.3 mL in NaCl (PF) 0.9% 10 mL injection (DEFINITY) INTRAVENOUS DIRECTED PRN sodium chloride 0.9 % (flush) 10 mL (BD POSIFLUSH) 10 mL INTRAVENOUS DIRECTED PRN Allergies: Codeine, Aceon [Perindopril Erbumine], Beta Blockers [Other], Hctz [Other], Imdur [Isosorbide], Lipitor [Atorvastatin Calcium], Lisinopril, and Spironolactone ROS: General (negative for fatigue, malaise, weight loss/gain) HEENT (negative for headache, earache, recent vision changes, sinus pain, sore throat) Respiratory (no recent shortness of breath, hemoptysis) CV (negative for chest tightness, palpitations) Musculoskeletal (see HPI) Psych (no depression, anxiety) This note was partially generated using [employer] voice recognition system, and there may be some incorrect words, spellings, and punctuation that were not noted in checking the note before saving. Anju Hairston PA-C AMB ROOMING INTAKE FLOWSHEET DATA Pain Pain Level: 10 Pain Location: Hand-Left Description: Burning, Other: See comment (clicking and locking) Duration Amount of Time: 4 Duration Units: Months Frequency: Intermittent Intervention/Comfort measure: Other: See comment (none) Patient here today for left ring trigger finger. States it has been bothering her for about 3-4 months. She is right hand dominant. documented in this encounter [facility] 04-30-2024 Telephone encounter Note PDMP website checked and validated. All prescriptions have been APPROPRIATELY filled. No suspicious activity was identified. 04/30/2024 by Elizabeth Og APRN.CONSTANTINO [facility] 04-30-2024 Miscellaneous Notes PDMP website checked and validated. All prescriptions have been APPROPRIATELY filled. No suspicious activity was identified. 04/30/2024 by Elizabeth Og APRN.CNP Prescription Refill Information The patient has been identified by name and date of : Yes Caregiver verified no other encounters exist for this prescription request: Yes Caregiver confirmed with patient/requestor that no other refills are due, in the near future, with this provider at this time: Yes The last office visit in the department: 03/06/2024 Does the patient have a future office visit with this provider/department: Yes Requested Prescriptions Pending Prescriptions Disp Refills gabapentin (NEURONTIN) 300 mg capsule 90 capsule 0 Sig: Take 1 capsule by mouth daily at bedtime for 90 days. Guadalupe Juarez April 30, 2024 11:38 AM documented in this encounter [facility] 04-30-2024 Telephone encounter Note Prescription Refill Information The patient has been identified by name and date of : Yes Caregiver verified no other encounters exist for this prescription request: Yes Caregiver confirmed with patient/requestor that no other refills are due, in the near future, with this provider at this time: Yes The last office visit in the department: 03/06/2024 Does the patient have a future office visit with this provider/department: Yes Requested Prescriptions Pending Prescriptions Disp Refills gabapentin (NEURONTIN) 300 mg capsule 90 capsule 0 Sig: Take 1 capsule by mouth daily at bedtime for 90 days. Guadalupe Juarez April 30, 2024 11:38 AM [facility] 04-17-2024 History of Present illness Narrative [facility] Telephonic Outreach Provider Action/FYI Monthly outreach call # 1 Contacted for: Routine Telephonic Outreach Contact made with patient: No, left message. Sharifa Stewart RN April 17, 2024 2:41 PM documented in this encounter [facility] 04-10-2024 Telephone encounter Note Patient has been identified by name and date of : Yes, Provider Dr. Starr Date 04-10-24 Time 12:27 pm Patient phones for refill(s): Requested Prescriptions Pending Prescriptions Disp Refills isosorbide mononitrate ER (IMDUR) 30 mg 24 hr tablet 90 tablet 1 Sig: Take 1 tablet by mouth once daily. Date of last office visit in primary care: 03/06/2024 Date of next office visit in primary care: 05/29/2024 Please advise. Thank you. Ebonie Jones. [facility] 04-10-2024 Miscellaneous Notes Patient has been identified by name and date of : Yes, Provider Dr. Starr Date 04-10-24 Time 12:27 pm Patient phones for refill(s): Requested Prescriptions Pending Prescriptions Disp Refills isosorbide mononitrate ER (IMDUR) 30 mg 24 hr tablet 90 tablet 1 Sig: Take 1 tablet by mouth once daily. Date of last office visit in primary care: 03/06/2024 Date of next office visit in primary care: 05/29/2024 Please advise. Thank you. Ebonie Jones. documented in this encounter [facility] 04-10-2024 Telephone encounter Note Patient has been identified by name and date of : Patient phones for refill(s): Requested Prescriptions Pending Prescriptions Disp Refills amLODIPine (NORVASC) 2.5 mg tablet 90 tablet 1 Sig: Take one tablet daily in addition to 5 mg to equal 7.5 mg daily labetalol (TRANDATE) 200 mg tablet 180 tablet 1 Sig: Take 1 tablet by mouth two times a day. Patient asking for 3 month supply Date of last office visit in primary care: 03/06/2024 Date of next office visit in primary care: 05/29/2024 Please advise. Thank you. Aaliyah Vidal. [facility] 04-10-2024 Miscellaneous Notes Patient has been identified by name and date of : Patient phones for refill(s): Requested Prescriptions Pending Prescriptions Disp Refills amLODIPine (NORVASC) 2.5 mg tablet 90 tablet 1 Sig: Take one tablet daily in addition to 5 mg to equal 7.5 mg daily labetalol (TRANDATE) 200 mg tablet 180 tablet 1 Sig: Take 1 tablet by mouth two times a day. Patient asking for 3 month supply Date of last office visit in primary care: 03/06/2024 Date of next office visit in primary care: 05/29/2024 Please advise. Thank you. Aaliyah Vidal. documented in this encounter [facility] 04-02-2024 History of Present illness Narrative [facility] Telephonic Outreach Provider Action/FYI Monthly outreach call # 1 Contacted for: Routine Telephonic Outreach Contact made with patient: No, unable to leave message. (Someone hung up phone). Will reattempt call Sharifa Stewart RN April 02, 2024 1:54 PM documented in this encounter [facility] 03-08-2024 History of Present illness Narrative Patient is status post EGD with on January 03, 2024. She was noted to have a small hiatal hernia but did this because of esophageal dysphagia.Biopsies of her duodenum were normal stomach showed no signs of H. pylori and biopsies of her esophagus did not show any signs of eosinophils or lymphocytes. Objective:Blood pressure 150/88, pulse 75, temperature 36.5 C (97.7 F), SpO2 97%. Abdomen is soft and nontender Assessment:Esophageal dysphagia (primary encounter diagnosis) Plan: Patient is get a try to modify how she has been eating and using a little bit more liquids with swallowing. If she continues to have problems we will have to order an esophageal manometry. I will have her follow-up with me on an as-needed basis. documented in this encounter [facility] 03-07-2024 Telephone encounter Note Patient notified and verbalized understanding. PATIENT is watching sodium diet but she will review labels on foods to stay on track. Ayde Eubanks LPN [facility] Work Phone: 03-07-2024 Miscellaneous Notes Patient notified and verbalized understanding. PATIENT is watching sodium diet but she will review labels on foods to stay on track. Ayde Eubanks LPN Phoned patient left message to return call and ask to speak to a nurse for results. Stable CKD in stage III range. Recommend low sodium diet <2,000 mg per day, avoidance of NSAIDs, and increased water intake. Sodium level slightly low. Other labs normal. Repeat labs in 1 month to monitor sodium level. documented in this encounter [facility] 03-07-2024 Telephone encounter Note Phoned patient left message to return call and ask to speak to a nurse for results. [facility] 03-07-2024 Telephone encounter Note Stable CKD in stage III range. Recommend low sodium diet <2,000 mg per day, avoidance of NSAIDs, and increased water intake. Sodium level slightly low. Other labs normal. Repeat labs in 1 month to monitor sodium level. [facility] 03-06-2024 History of Present illness Narrative Chief Complaint Patient presents with: Headache Trigger Finger: L trigger ring finger HPI Tashia Fernandez is a 73 year old female who presents here today for Above Complaints. Complaining of headache which started about 1 month ago. Located on the top and back of her head without radiation to her neck or shoulders. Described as intermittent throbbing pain which occurs on a daily basis and will last for 15-20 minutes. No known triggers and does not occur at a specific time of day. BP at home has been normal when she gets the headaches. Treating with tylenol and ibuprofen without improvement. Denies nausea, vomiting, photophobia, phonophobia, vision changes, auras, nasal congestion, rhinorrhea, sinus pain/pressure, recent fall or head injury. Has not had her glasses rx updated in about a year. Strains at times to see. Patient also complaining of trigger finger on left 4th finger which has been locking up for the last 2 months. Has pain with full flexion. Getting locked at PIP joint which she has straighten with her other hand. Treating with ibuprofen 600 mg every 6 hours and icing at night without improvement. Denies fever/chills, joint erythema or swelling. Has appointment with Dr. Yi on 05/06. Willing to travel outside of [place] for earlier appointment. Past medical history, appointments, medications, allergies reviewed. Previous Medical History PAST MEDICAL HISTORY Diagnosis Date Contact dermatitis and other eczema Degenerative arthritis of knee 05/24/2011 Delayed gastric emptying 07/24/2012 Diarrhea Diverticulitis Diverticulosis of colon (without mention of hemorrhage) Diverticulosis Dysphagia, unspecified 08/29/2017 Elevated alkaline phosphatase level 07/12/2018 Essential hypertension, benign GERD (gastroesophageal reflux disease) Hyperlipidemia Hypokalemia 09/25/2012 Hypothyroidism Impaired fasting glucose 11/19/2015 Inadequate pelvic muscles 01/17/2012 Lumbar disc disease with radiculopathy 09/01/2016 Lung nodule < 6cm on CT 10/15/2018 10/07/18: incidental 4.5 mm nodule RML thyrotoxicosis Nonrheumatic mitral (valve) insufficiency Obesity Other osteoporosis 12/21/2006 Pancreatitis Paroxysmal SVT (supraventricular tachycardia) (HCC) Personal history of colonic polyps Colon polyps POLYP STOMACH 07/13/2007 Stage 3a chronic kidney disease (HCC) Statin intolerance 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--surgery not needed (2016) Tethering of spinal cord (HCC) 2014 Trigeminal neuralgia 10/11/2011 Trochanteric bursitis of left hip 07/24/2012 Unspecified hemorrhoids without mention of complication Hemorrhoids Previous Surgical History PAST SURGICAL HISTORY Procedure Laterality Date COLONOSCOPY FLX DX W/COLLJ SPEC WHEN PFRMD 12/2018 Colonoscopy COLONOSCOPY FLX DX W/COLLJ SPEC WHEN PFRMD 07/13/2007 Lax colon COLONOSCOPY FLX DX W/COLLJ SPEC WHEN PFRMD 03/26/2014 Colonoscopy COLONOSCOPY FLX DX W/COLLJ SPEC WHEN PFRMD 12/2018 SNE-[id number] 10 years COLONOSCOPY GEN ANES 04/28/2021 DECOMPRESSION PLANTAR DIGITAL NERVE 1999 heel spur/ plantar fasciitis repair Rt EGD 06/02/2021 EGD TRANSORAL BIOPSY SINGLE/MULTIPLE 07/13/2007 Gastritis, fundic gland polyps EGD W/O [facility] SPEC VARICIES INJ 01/03/2024 Dr. Kelley ESOPHAGOGASTRODUODENOSCOPY TRANSORAL DIAGNOSTIC 03/26/2014 EGD EYE SURGERY HX LAPAROSCOPY SURG CHOLECYSTECTOMY Cholecystectomy, lap LIG/TRNSXJ FLP TUBE ABDL/VAG APPR UNI/BI LIGATE FALLOPIAN TUBE NEUROPLASTY &/TRANSPOS MEDIAN NRV CARPAL TUNNE Carpal tunnel decomp bilateral OPEN REPAIR OF ROTATOR CUFF ACUTE 1992 Rotator cuff repair, right STRESS TEST,COMPLETE_*FL Family History FAMILY HISTORY Problem Relation Age of Onset Diabetes Mother Heart Mother Stroke Mother Hypertension Mother other (MVA) Father Hypertension Sister Heart Sister Hypertension Sister Heart Sister Hypertension Brother Heart Brother Hypertension Brother Cancer Brother Oral cancer Cancer Paternal Grandfather skin Breast Cancer Maternal Aunt Asthma No Family History Patient Allergies ALLERGIES Allergen Reactions Codeine Intolerance Chest pain Aceon [Perindopril * Rash, Cough Beta Blockers [Othe* Cough dry hacking cough Hctz [Other] Rash Imdur [Isosorbide] Other: See Comments headaches Lipitor [Atorvastat* Other: See Comments muscle cramps Lisinopril Cough dry hacking cough Spironolactone Other: See Comments headache Current Medications Current Outpatient Medications on File Prior to Visit Medication Sig meclizine (ANTIVERT) 25 mg tab Take 1 tablet by mouth three times a day as needed (vertigo). amLODIPine (NORVASC) 2.5 mg tablet Take one tablet daily in addition to 5 mg to equal 7.[address] (PROTONIX) 40 mg tablet TAKE 1 TABLET BY MOUTH ONCE DAILY. TAKE ON EMPTY STOMACH 1/2 HOUR BEFORE MEAL. gabapentin (NEURONTIN) 300 mg capsule Take 1 capsule by mouth daily at bedtime for 90 days. levothyroxine (SYNTHROID) 88 mcg tablet Take one tablet daily Monday-Monday and two tablets on Monday blood sugar diagnostic (BLOOD GLUCOSE TEST) test strip Test blood sugar(s) 1 times daily. Dx: Prediabetes Insulin: No Lancets lancets Test blood sugar(s) 1 times daily. Dx: Prediabetes Insulin: No amLODIPine (NORVASC) 5 mg tablet Take 1 tablet by mouth once daily. isosorbide mononitrate ER (IMDUR) 30 mg 24 hr tablet Take 1 tablet by mouth once daily. labetalol (TRANDATE) 200 mg tablet Take 1 tablet by mouth two times a day. losartan (COZAAR) 100 mg tablet Take 1 tablet by mouth once daily. potassium chloride ER (KLOR-CON) 20 mEq tablet Take 2 tablets by mouth two times a day. DULoxetine (CYMBALTA) 30 mg capsule Take 1 capsule by mouth once daily. polyethylene glycol 3350 17 gram/dose powder Take 17 g by mouth once daily. Dissolve dose in 4 - 8 ounces of liquid and take as directed. doxylamine succinate (SLEEP AID ORAL) Take by mouth daily at bedtime. calcium carbonate-Vit D3-minerals (CALTRATE) 600 mg calcium- 400 unit tab Take 2 tablets by mouth once daily. ondansetron orally disintegrating (ZOFRAN ODT) 4 mg disintegrating tablet Take 1 tablet by mouth every 6 hours as needed for Nausea/Vomiting. 0.9 % sodium chloride (NACL 0.9%) 0.9% solp Infuse 500 ml IV over [address] Biotin 2,500 mcg cap Take 1 capsule by mouth once daily. aspirin, enteric coated (ASPIRIN, ENTERIC COATED) 81 mg EC tablet Take 81 mg by mouth once daily. Current Facility-Administered Medications on File Prior to Visit Medication perflutren lipid microspheres 1.3 mL in NaCl (PF) 0.9% 10 mL injection (DEFINITY) sodium chloride 0.9 % (flush) 10 mL (BD POSIFLUSH) Social History Social History Tobacco Use Smoking status: Former Packs/day: 0.10 Years: 1.00 Additional pack years: 0.00 Total pack years: 0.10 Types: Cigarettes Smokeless tobacco: Never Tobacco comments: Smoked 1 year or less in 1980s. Spouse was smoker in home for 39 years. Father smoked in childhood home. Vaping Use Vaping Use: Never used Substance Use Topics Alcohol use: No Drug use: No Review of Symptoms REVIEW OF SYSTEMS See HPI EXAM: BP 126/74 Pulse 67 Resp 16 Wt 79.8 kg (176 lb) BMI 34.37 kg/m General Appearance: Well appearing, alert, in no acute distress, well-hydrated, well nourished.. Skin: Skin color, texture, turgor normal, no suspicious rashes or lesions. Head: Normocephalic, no masses, lesions, tenderness or abnormalities. Oropharynx: Lips, mucosa, and tongue normal, teeth and gums normal, oropharynx normal. Neck: Supple, no adenopathy; thyroid symmetric, normal size, no bruits. Lungs: Lungs clear to auscultation. No wheezing, rhonchi, rales.. Heart: RRR without murmur, gallop, or rubs. No ectopy. Musculoskeletal: TTP over palmar aspect of left hand just proximal to 4th finger without palpable nodule. Normal ROM of fingers without left ring finger getting stuck today. MCP joints TTP without swelling. 5/5 wallpaper remover steam strength bilaterally. Neurologic: Negative findings: speech normal, mental status intact, cranial nerves 2-12 intact, Romberg negative, muscle tone normal, muscle strength normal, sensation to light touch and pinprick normal, reflexes normal and symmetric. Health Maintenance List RSV Vaccine(1 - 1-dose 60+ series) Never done BP Controlled (<130/80) due on 03/23/2022 Covid-19 Vaccine( season) due on 07/07/2023 Advance Directive Discussion Never done Behavioral Health Screening Never done Hemoglobin/Hematocrit due on 12/27/2023 Bone Density Screening due on 01/27/2024 DTaP,Tdap,Td Vaccine(1 - Tdap) due on 05/29/2024 Shingrix Vaccine(1 of 2) due on 05/29/2024 Annual PCP Team Chronic Disease Visit due on 11/29/2024 LDL Cholesterol due on 01/17/2025 Serum Creatinine due on 01/17/2025 Diabetes Screening due on 01/17/2027 Lipid Screening due on 01/17/2029 Colorectal Cancer Screening due on 04/28/2031 Influenza Vaccine Completed Hepatitis C Screening Completed Pneumococcal Vaccine: 65+ Completed Mammogram Screening Discontinued ASSESSMENT/PLAN: 1. Headache, unspecified headache type - ICD9: 784.0, ICD10: R51.9 (primary diagnosis) Possible tension headache vs headache related to straining her vision. Discussed avoidance of NSAIDs due to CKD. Will have her treat with tylenol up to 1,000 mg PRN for pain. Discussed keeping headache diary and avoiding known triggers. Check electrolytes. Advised self massage to her neck, ice/heat, stress relieving activities PRN. Call if symptoms change or worsen. - COMPREHENSIVE METABOLIC PANEL 2. Trigger ring finger of left hand - ICD9: 727.03, ICD10: M65.342 Symptoms consistent with trigger finger with normal exam today. Will refer to ortho to see if she can get earlier appointment outside of [facility]. Discussed continued treatment with rest, ice, and tylenol PRN for pain. - CONSULT TO ORTHOPAEDICS I spent a total of 30 minutes on the date of the service which included preparing to see the patient, [id number] patient care, completing clinical documentation, obtaining and/or reviewing separately obtained history, performing a medically appropriate examination, counseling and educating the patient/family/caregiver, and ordering medications, tests, or procedures. Elisa Starr MD documented in this encounter [facility] 03-04-2024 History of Present illness Narrative POPULATION HEALTH NAVIGATION OUTREACH Action/FYI Patient calling in requesting call from Efficiency Engineer (Has some questions) -Appt for Ortho added to cancellation list -message sent to RASHIDA patient wondering if can do cortisone injection or she has to see Please call this afternoon as she is going to be leaving by 10AM Reason for Outreach [facility] at Home Care Gaps due: N/A Call received from: Patient Patient Contacted: Spoke to patient/parent/or legal guardian Patient identified by name and date of Yes [facility] at Home actions taken: Routed to PCC and RASHIDA Navigation Signature: Jayda Pires MA March 04, 2024 8:20 AM documented in this encounter [facility] 02-29-2024 Telephone encounter Note Patient has been identified by name and date of : Yes, Patient phones for refill(s): Requested Prescriptions Pending Prescriptions Disp Refills meclizine (ANTIVERT) 25 mg tab 30 tablet 1 Sig: Take 1 tablet by mouth three times a day as needed (vertigo). Date of last office visit in primary care: 11/29/2023 Date of next office visit in primary care: 05/29/2024 Patient said she it out of the medication Please advise. Thank you. Guadalupe Juarez. [facility] 02-29-2024 Miscellaneous Notes Patient has been identified by name and date of : Yes, Patient phones for refill(s): Requested Prescriptions Pending Prescriptions Disp Refills meclizine (ANTIVERT) 25 mg tab 30 tablet 1 Sig: Take 1 tablet by mouth three times a day as needed (vertigo). Date of last office visit in primary care: 11/29/2023 Date of next office visit in primary care: 05/29/2024 Patient said she it out of the medication Please advise. Thank you. Guadalupe Juarez. documented in this encounter [facility] 02-28-2024 Telephone encounter Note Patient was notified Alyx Justin MA [facility] 02-28-2024 Miscellaneous Notes Patient was notified Alyx Justin MA Message left for patient to call office back for update. Vangie Gonzalez LPN ----- Message from Elizabeth Og APRN.CASH ACCOUNTING CLERK sent at 02/28/2024 12:34 PM EDT ----- TSH in normal range. Continue current dose of synthroid, Elizabeth Og APRN.CASH ACCOUNTING CLERK documented in this encounter [facility] 02-28-2024 Telephone encounter Note Patient was notified Alyx Justin MA [facility] 02-28-2024 Miscellaneous Notes Patient was notified Alyx Justin MA I do not do hand injections or surgery for trigger finger. Perhaps she could get appointment with another orthopedist a bit further from [place]? Pt calls states has a finger that keeps locking up on her. In the past her other hand did this and Dr. Miller gave her a shot in it. She called his office can not get in until May. She states this is to long to wait it is just getting worse. Will be locked up by then per pt Asking if Dr. Starr can do this? documented in this encounter [facility] 02-28-2024 Telephone encounter Note I do not do hand injections or surgery for trigger finger. Perhaps she could get appointment with another orthopedist a bit further from [place]? [facility] 02-28-2024 Telephone encounter Note Message left for patient to call office back for update. Vangie Gonzalez LPN [facility] 02-28-2024 Telephone encounter Note ----- Message from Elizabeth Og APRN.CASH ACCOUNTING CLERK sent at 02/28/2024 12:34 PM EDT ----- TSH in normal range. Continue current dose of synthroid, Elizabeth Og APRN.CASH ACCOUNTING CLERK [facility] 02-28-2024 Telephone encounter Note Pt calls states has a finger that keeps locking up on her. In the past her other hand did this and Dr. Miller gave her a shot in it. She called his office can not get in until May. She states this is to long to wait it is just getting worse. Will be locked up by then per pt Asking if Dr. Starr can do this? [facility] 02-27-2024 History of Present illness Narrative CDM Telephonic Outreach Provider Action/FYI Contact made with patient for CDM monthly call. Patient denies any new or worsening CDM issues. States she has an orthopedic appointment for her trigger finger tomorrow, hoping to get a cortisone injection. Reviewed upcoming appointments. She denies any questions, concerns, or needs. Contacted for: Routine Telephonic Outreach Contact made with patient: Yes Patient identified by name and date of . Discussed care with patient Are you experiencing any new or worsening symptoms you need to talk about today? No Disease Specific Do you check your blood pressure at home? Yes, Enter readings: 138/64 Do you have new or worsening shortness of breath with activity? No Do you feel like you are dehydrated for any reason, including not being able to eat or drink normally, or having less urine/much darker urine than normal for you? No Do you check your daily weight at home? No Based on assessment rn, the following disposition is advised: No symptoms or symptoms present, not severe. Routed to: No Action Needed LIDIA Education Provided this Outreach: No Stephie Carballo RN February 27, 2024 1:49 PM documented in this encounter [facility] 02-22-2024 Miscellaneous Notes SANJEEV 11/29/23 NOV 05/29/24 Patient has been identified by name and date of : Yes Requested Prescriptions Pending Prescriptions Disp Refills amLODIPine (NORVASC) 2.5 mg tablet 90 tablet 1 Sig: Take one tablet daily in addition to 5 mg to equal 7.5 mg daily amLODIPine (NORVASC) 5 mg tablet 90 tablet 1 Sig: Take 1 tablet by mouth once daily. isosorbide mononitrate ER (IMDUR) 30 mg 24 hr tablet 90 tablet 1 Sig: Take 1 tablet by mouth once daily. RX INSTRUCTIONS: Patient aware RX escripted to mail away pharmacy. No need to notify patient. Pooja Jones documented in this encounter [facility] 02-12-2024 Miscellaneous Notes Updated patient that Rx was sent to [facility] as requested. Patient has been identified by name and date of : Yes, Provider Isa Patient phones for refill(s): Requested Prescriptions Pending Prescriptions Disp Refills pantoprazole DR (PROTONIX) 40 mg tablet 90 tablet 1 Sig: TAKE 1 TABLET BY MOUTH ONCE DAILY. TAKE ON EMPTY STOMACH 1/2 HOUR BEFORE MEAL. Date of last office visit in primary care: 11/29/2023 Date of next office visit in primary care: 05/29/2024 Please advise. Thank you. Sharifa Jones. documented in this encounter [facility] 01-22-2024 Miscellaneous Notes Pt notified. FYI: pt stated she was having issues with Decaf coffee making her throw up so she switched to regular coffee about 6 months ago, no issues since changing. She also has started taking Magnesium along with the potassium due to still getting leg cramping. Pt has not heard back from Dr. Kelley regarding her EGD results. Beatriz Veliz MA Have her take one extra tablet on Monday. Recheck level in 4-6 weeks. Elizabeth Og APRN.CONSTANTINO Phoned patient and asked if she took her biotin and prevacid at same time as synthroid. Patient states she does not, she takes her synthroid with nothing else 30 min before eating. She takes then with her synthroid? Elizabeth Og APRN.CONSTANTINO Patient returned call and went over results, notes from Elizabeth Og SPRAY PILOT with understanding. Patient said she takes it daily on empty stomach 30 minutes prior to eat breakfast. Patient does take biotin and Prevagen. Patient telephoned. Message left to call office back for update. Vangie Gonzalez LPN ----- Message from Elizabeth Og APRN.CONSTANTINO sent at 01/19/2024 7:02 AM EDT ----- A1c down to 6.2% from 6.4%. TSH elevated some showing she may not be getting enough replacement. Has she been taking her synthroid daily on a empty stomach 30 minutes before eating? LDL ( bad cholesterol) has increased some recommend low saturated fa t diet and aim for at least 150 minutes of exercise per week. Kidney function stable continue to avoid NSAID products, eat low salt diet and stay well hydrated wit water. Elizabeth Og APRN.CONSTANTINO documented in this encounter [facility] 01-17-2024 Miscellaneous Notes Phoned patient and went over notes from Elizabeth Og SPRAY PILOT with understanding. Scheduled lab appt for [facility] Order for las placed, please let patient know. She should fast 10 hours prior to completing them. Elizabeth Og APRN.CNP I do not see where these lab orders are ? They are not listed as cancelled and do no until 02/28/24. They were to be completed on/around 11/29/23. Do you want to order new labs, they may have not been able to pull from them? Pascale Erickson Ma Please order new labs current ones are . Please call patient once orders have been placed. documented in this encounter [facility] 01-03-2024 History of Present illness Narrative [facility] Telephonic Outreach Provider Action/FYI Contacted for: Routine Telephonic Outreach Contact made with patient: Yes Patient identified by name and date of . Discussed care with patient Are you experiencing any new or worsening symptoms you need to talk about today? No Disease Specific Do you check your blood pressure at home? Yes, Enter readings: 121/65 Blood sugar 106 Do you have new or worsening shortness of breath with activity? No Do you feel like you are dehydrated for any reason, including not being able to eat or drink normally, or having less urine/much darker urine than normal for you? No Do you check your daily weight at home? Yes, Have you noticed a sudden gain in weight greater than three pounds in a day or three pounds in a week? No Based on assessment rn, the following disposition is advised: No symptoms or symptoms present, not severe. Routed to: No Action Needed LIDIA Education Provided this Outreach: No ......Sent previously Denies needs, questions, concerns at this time. Provided with [facility] reminder and number. Sharifa Stewart RN January 03, 2024 4:11 PM documented in this encounter [facility] 01-03-2024 Miscellaneous Notes The patient received a copy of EGD discharge instructions that contain information for how to contact the physician who performed the procedure and when to seek medical care. documented in this encounter [facility] 01-03-2024 Nurse Note Patient arrived laying on left side. Patient does not appear to be in any pain at this time. Abdomen appears to be nondistended and soft to palpation. Patient encouraged to belch and pass gas as needed. documented in this encounter [facility] 01-03-2024 History and physical note Images from the original note were not included. HISTORY AND PHYSICAL Tashia Fernandez 1950 REFERRING PHYSICIAN: Elisa Starr MD CHIEF COMPLAINT: Consult (Difficulty swallowing/ food and drinks getting stuck in esophagus) HPI: The patient is a 73 year old female referred for endoscopy. [place] notes no history of colon complaints. The patient notes the following upper complaints: [place] denies abdominal pain.. [place] denies heartburn. [place] notes dysphagia. [place] denies a history of ulcers/ peptic ulcer disease. [place] has undergone prior endoscopy. 2020 The patient is being seen by me today at the request of Dr. Elisa Starr MD for my opinion and advice regarding Esophageal dysphagia (primary encounter diagnosis) Hiatal hernia. PAST MEDICAL HISTORY PAST MEDICAL HISTORY Diagnosis Date Contact dermatitis and other eczema Degenerative arthritis of knee 05/24/2011 Delayed gastric emptying 07/24/2012 Diarrhea Diverticulitis Diverticulosis of colon (without mention of hemorrhage) Diverticulosis Dysphagia, unspecified 08/29/2017 Elevated alkaline phosphatase level 07/12/2018 Essential hypertension, benign GERD (gastroesophageal reflux disease) Hyperlipidemia Hypokalemia 09/25/2012 Hypothyroidism Impaired fasting glucose 11/19/2015 Inadequate pelvic muscles 01/17/2012 Lumbar disc disease with radiculopathy 09/01/2016 Lung nodule < 6cm on CT 10/15/2018 10/07/18: incidental 4.5 mm nodule RML thyrotoxicosis Nonrheumatic mitral (valve) insufficiency Obesity Other osteoporosis 12/21/2006 Pancreatitis Paroxysmal SVT (supraventricular tachycardia) Personal history of colonic polyps Colon polyps POLYP STOMACH 07/13/2007 Stage 3a chronic kidney disease (HCC) Statin intolerance 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--surgery not needed (2016) Tethering of spinal cord (HCC) 2014 Trigeminal neuralgia 10/11/2011 Trochanteric bursitis of left hip 07/24/2012 Unspecified hemorrhoids without mention of complication Hemorrhoids PAST SURGICAL HISTORY PAST SURGICAL HISTORY Procedure Laterality Date COLONOSCOPY FLX DX W/COLLJ SPEC WHEN PFRMD 12/2018 Colonoscopy COLONOSCOPY FLX DX W/COLLJ SPEC WHEN PFRMD 07/13/2007 Lax colon COLONOSCOPY FLX DX W/COLLJ SPEC WHEN PFRMD 03/26/2014 Colonoscopy COLONOSCOPY FLX DX W/COLLJ SPEC WHEN PFRMD 12/2018 EQO-[id number] 10 years COLONOSCOPY GEN ANES 04/28/2021 DECOMPRESSION PLANTAR DIGITAL NERVE 1999 heel spur/ plantar fasciitis repair Rt EGD 06/02/2021 EGD TRANSORAL BIOPSY SINGLE/MULTIPLE 07/13/2007 Gastritis, fundic gland polyps ESOPHAGOGASTRODUODENOSCOPY TRANSORAL DIAGNOSTIC 03/26/2014 EGD LAPAROSCOPY SURG CHOLECYSTECTOMY Cholecystectomy, lap LIG/TRNSXJ FLP TUBE ABDL/VAG APPR UNI/BI LIGATE FALLOPIAN TUBE NEUROPLASTY &/TRANSPOS MEDIAN NRV CARPAL TUNNE Carpal tunnel decomp bilateral OPEN REPAIR OF ROTATOR CUFF ACUTE 1992 Rotator cuff repair, right STRESS TEST,COMPLETE_*FL CURRENT MEDICATIONS Current Outpatient Medications Medication Sig amLODIPine (NORVASC) 5 mg tablet Take 1 tablet by mouth once daily. isosorbide mononitrate ER (IMDUR) 30 mg 24 hr tablet Take 1 tablet by mouth once daily. labetalol (TRANDATE) 200 mg tablet Take 1 tablet by mouth two times a day. gabapentin (NEURONTIN) 300 mg capsule Take 1 capsule by mouth daily at bedtime for 90 days. losartan (COZAAR) 100 mg tablet Take 1 tablet by mouth once daily. pantoprazole DR (PROTONIX) 40 mg tablet TAKE 1 TABLET BY MOUTH ONCE DAILY. TAKE ON EMPTY STOMACH 1/2 HOUR BEFORE MEAL. potassium chloride ER (KLOR-CON) 20 mEq tablet Take 2 tablets by mouth two times a day. levothyroxine (SYNTHROID) 88 mcg tablet Take 1 tablet by mouth once daily. amLODIPine (NORVASC) 2.5 mg tablet Take one tablet daily in addition to 5 mg to equal 7.5 mg daily polyethylene glycol 3350 17 gram/dose powder Take 17 g by mouth once daily. Dissolve dose in 4 - 8 ounces of liquid and take as directed. doxylamine succinate (SLEEP AID ORAL) Take by mouth daily at bedtime. calcium carbonate-Vit D3-minerals (CALTRATE) 600 mg calcium- 400 unit tab Take 2 tablets by mouth once daily. ondansetron orally disintegrating (ZOFRAN ODT) 4 mg disintegrating tablet Take 1 tablet by mouth every 6 hours as needed for Nausea/Vomiting. 0.9 % sodium chloride (NACL 0.9%) 0.9% solp Infuse 500 ml IV over [address] meclizine (ANTIVERT) 25 mg tab Take 1 tablet by mouth three times daily as needed (vertigo). Biotin 2,500 mcg cap Take 1 capsule by mouth once daily. aspirin, enteric coated (ASPIRIN, ENTERIC COATED) 81 mg EC tablet Take 81 mg by mouth once daily. blood sugar diagnostic (BLOOD GLUCOSE TEST) test strip Test blood sugar(s) 1 times daily. Dx: Prediabetes Insulin: No Lancets lancets Test blood sugar(s) 1 times daily. Dx: Prediabetes Insulin: No DULoxetine (CYMBALTA) 30 mg capsule Take 1 capsule by mouth once daily. Current Facility-Administered Medications Medication Dose Route Frequency perflutren lipid microspheres 1.3 mL in NaCl (PF) 0.9% 10 mL injection (DEFINITY) INTRAVENOUS DIRECTED PRN sodium chloride 0.9 % (flush) 10 mL (BD POSIFLUSH) 10 mL INTRAVENOUS DIRECTED PRN ALLERGIES: Codeine, Aceon [Perindopril Erbumine], Beta Blockers [Other], Hctz [Other], Imdur [Isosorbide], Lipitor [Atorvastatin Calcium], Lisinopril, and Spironolactone PERSONAL HISTORY: SOCIAL HISTORY Social History Tobacco Use Smoking status: Former Packs/day: 0.10 Years: 1.00 Additional pack years: 0.00 Total pack years: 0.10 Types: Cigarettes Smokeless tobacco: Never Tobacco comments: Smoked 1 year or less in 1980s. Spouse was smoker in home for 39 years. Father smoked in childhood home. Vaping Use Vaping Use: Never used Substance Use Topics Alcohol use: No Drug use: No FAMILY HISTORY: FAMILY HISTORY FAMILY HISTORY Problem Relation Age of Onset Diabetes Mother Heart Mother Stroke Mother Hypertension Mother other (MVA) Father Hypertension Sister Heart Sister Hypertension Sister Heart Sister Hypertension Brother Heart Brother Hypertension Brother Cancer Brother Oral cancer Cancer Paternal Grandfather skin Breast Cancer Maternal Aunt Asthma No Family History REVIEW OF SYMPTOMS: The review of systems data was entered by the nurse and reviewed by ar Nursing Notes: Jazz Marie LPN 12/21/2023 3:07 PM Signed REVIEW OF SYSTEMS: General: The patient denies fatigue, denies weight loss, denies weight gain, denies feeling hot, and denies feelings of cold. Eyes: The patient denies glaucoma, denies eye injury/surgery, wears glasses or contacts. Ear/Nose/Throat: The patient NOTES allergies, denies hayfever, denies ear infections, and denies bloody noses. Cardiovascular: The patient denies chest pain, NOTES heart disease, denies high blood pressure,denies cardiac stent, denies prior heart attack, NOTES irregular heart beat, NOTES high cholesterol, denies poor circulation, denies heart failure, other cardiac issues, denies claudication, denies cold feet, denies peripheral arterial stent. Respiratory: The patient denies tuberculosis, denies pneumonia, denies frequent cough, denies pulmonary embolism, denies shortness of breath, and denies coughing up blood. Gastrointestinal: The patient NOTES difficulty swallowing, NOTES acid reflux, denies ulcers, denies vomiting, denies jaundice/hepatitis, denies gallbladder problems, denies black or tarry stools, denies hemorrhoids, denies bleeding from rectum, NOTES diverticulitis, denies constipation, denies diarrhea, denies loss of stool control, and denies hernias. Kidney/Bladder: The patient NOTES kidney stones, NOTES urine infections, and denies bloody urine. Skin: The patient denies a history of skin cancer, denies bleeding/changing moles, and denies a history of skin rash. Neurologic: The patient denies a history of epilepsy/convulsions, denies headaches, denies head/spinal injuries, and denies stroke/TIA. Psychiatric: The patient denies psychiatric medications, denies depression, and denies voices, denies substance abuse. Endocrine: The patient NOTES thyroid disorders, denies diabetes, and denies hormonal problems. Hematologic: The patient denies a history of bruising, denies bleeding, and denies anemia, denies blood clots. Infections: The patient denies a history of measles and mumps, denies rheumatic fever, and denies sexually transmitted diseases. Musculoskeletal: The patient NOTES back pain/injury, denies back problems, denies sciatica, denies knee/foot trouble, NOTES arthritis, or denies gout. When was patient's last Mammogram screening? 2022 Last Colonoscopy: 2020 Jazz Marie LPN PHYSICAL EXAMINATION: General: The patient is 73 year old female, well nourished, well hydrated in no acute distress. The patient is oriented to time, place, and person. VITALS: Blood pressure 132/78, pulse 76, temperature 36.7 C (98 F), height 152.4 cm (5'), weight 79.2 kg (174 lb 9.6 oz), SpO2 96%. Body mass index is 34.1 kg/m . HEENT: Normal cephalic, ataumatic, pupils are equally round, sclera are anicteric, mucous membranes are moist, oropharynx is clear. Neck has no masses, asymmetry or lymphadenopathy. Thyroid is unremarkable. Respiratory: Clear to auscultation and percussion. Normal respiratory excursion and pattern. Cardiac: Examination is regular rate and rhythm. Abdominal exam: Soft, nontender, with no palpable masses. No hepatosplenomegaly. No palpable hernias. Rectal exam: exam deferred Extremities: no clubbing, cyanosis or edema. No adenopathy. Other: LABORATORY VALUES: As Noted RADIOLOGIC STUDIES: As Noted Assessment IMPRESSION: Esophageal dysphagia (primary encounter diagnosis) Hiatal hernia PLAN: I plan to perform upper endoscopy. We discussed the risks and benefits of the planned endoscopy. I have informed the patient that complications can occur including failure to complete the endoscopy and perforation. The patient had the opportunity to ask questions concerning the planned endoscopy. My staff has also explained the procedure to the patient in understandable terms and has given the patient printed material concerning the procedure. The patient freely consents to surgery. Diagnoses: (R13.19) Esophageal dysphagia (primary encounter diagnosis) (K44.9) Hiatal hernia My findings have been communicated to Dr. Elisa Starr MD via shared medical record. This note will be forwarded to Dr. Elisa Starr MD. Return to Clinic: The patient is instructed to follow-up with me 1 week post operatively. Behzad Kelley III, MD UPDATED HISTORY AND PHYSICAL EXAMINATION SERVICE DATE: 01/03/2024 SERVICE TIME: 10:44 AM PHYSICAL EXAM MUST BE COMPLETED ON ADMISSION The History and Physical (completed in the past 30 days) has been reviewed and the patient has been examined. The contents accurately reflect the patient's condition with the following additions or revisions since the H&P was completed. Examination indicates no changes. This H&P can be found in the attached. SIGNATURE: Behzad Kelley III, MD PATIENT NAME: Tashia Fernandez DATE: January 03, 2024 TIME: 10:44 AM documented in this encounter [facility] 12-21-2023 Telephone encounter Note 01/03/2024 EGD ASC [facility] 12-21-2023 Miscellaneous Notes 01/03/2024 EGD ASC documented in this encounter [facility] 12-11-2023 Miscellaneous Notes Patient has been identified by name and date of : Yes, Provider Elisa Starr MD Date 12/11/2023 Time 12:55 PM Patient phones for refill(s): Requested Prescriptions Pending Prescriptions Disp Refills amLODIPine (NORVASC) 2.5 mg tablet 90 tablet 3 Sig: Take one tablet daily in addition to 5 mg to equal 7.5 mg daily Date of last office visit in primary care: 11/29/2023 Date of next office visit in primary care: 05/12/2024 Please advise. Thank you. Gwendolyn Edwards. documented in this encounter [facility] 10-26-2023 Miscellaneous Notes TC to patient who verbalized understanding of medication sent to pharmacy. No further questions at this time. ROBBIE Cooper PDMP website checked and validated. All prescriptions have been APPROPRIATELY filled. No suspicious activity was identified. 10/26/2023 by Elisa Starr MD Rx sent Patient has been identified by name and date of : No Patient phones for refill(s): Requested Prescriptions Pending Prescriptions Disp Refills gabapentin (NEURONTIN) 300 mg capsule 90 capsule 0 Sig: Take 1 capsule by mouth daily at bedtime for 90 days. Date of last office visit in primary care: 07/27/2023 Date of next office visit in primary care: 11/29/2023 Please advise. Thank you. Alyx Justin Ma. [place] is calling Elisa Starr MD today with concern regarding Medication Request gabapentin (NEURONTIN) 300 mg capsule (Discontinued) 90 capsule 0 07/27/2023 07/29/2023 Sig: Take 1 capsule by mouth daily at bedtime for 90 days. Sent to pharmacy as: gabapentin (NEURONTIN) 300 mg capsule [facility] Patient has been identified by name and birthdate. Duration of symptoms: N/A Person calling: self Call patient at: at home [phone] (home) [phone] (cell) Was an appointment scheduled: No Closing statement: Results or non-symptom based questions: Thank you for calling [facility], your call will be returned within the next business day. Ebonie Jones documented in this encounter [facility] 10-26-2023 Miscellaneous Notes Patient notified of results and provider's instructions. Patient verbalizes understanding. Nurys Gavin RN ----- Message from Elisa Starr MD sent at 10/26/2023 7:57 AM EST ----- Negative mammogram. Discuss repeat in 1 year. documented in this encounter [facility] 10-21-2023 Miscellaneous Notes Screening mammogram order approved. Pended both Mamm orders, not sure which you use. Please choose which one and file. Close encounter once finished. Pascale Erickson Ma Patient requesting a mammo order She has a mammogram scheduled for 10/24 documented in this encounter [facility] 10-11-2023 Miscellaneous Notes Patient has been identified by name and date of : Yes Requested Prescriptions Pending Prescriptions Disp Refills losartan (COZAAR) 100 mg tablet 90 tablet 3 Sig: Take 1 tablet by mouth once daily. RX INSTRUCTIONS: Patient aware RX will be sent to pharmacy. No need to notify patient. Aaliyah Vidal documented in this encounter [facility] 09-27-2023 Miscellaneous Notes Pharmacy verified in [facility] Patient has been identified by name and date of : Yes Patient aware RX will be sent to pharmacy. No need to notify patient. Patient phones for refill(s): Requested Prescriptions Pending Prescriptions Disp Refills pantoprazole DR (PROTONIX) 40 mg tablet 90 tablet 1 Sig: TAKE 1 TABLET BY MOUTH ONCE DAILY. TAKE ON EMPTY STOMACH 1/2 HOUR BEFORE MEAL. Date of last office visit : 07/27/2023 Date of next office visit : 11/29/2023 Last 2 Encounter Wt Readings: Date: Wt: 07/27/2023 78.8 kg (173 lb 12.8 oz) 06/06/2023 79.8 kg (176 lb) Not applicable Please advise. Cyndi Watson Pss documented in this encounter [facility] 09-19-2023 History of Present illness Narrative [facility] Telephonic Outreach Provider Action/FYI Contacted for: Routine Telephonic Outreach Contact made with patient: Yes Patient identified by name and date of . Discussed care with patient Are you experiencing any new or worsening symptoms you need to talk about today? No Disease Specific Do you check your blood pressure at home? No not normally, but occassionally Do you have new or worsening shortness of breath with activity? No Do you feel like you are dehydrated for any reason, including not being able to eat or drink normally, or having less urine/much darker urine than normal for you? No Do you check your daily weight at home? No Based on assessment rn, the following disposition is advised: No symptoms or symptoms present, not severe. Routed to: No Action Needed LIDIA Education Provided this Outreach: No Pt states she is going to see her GI doctor again regarding her trouble swallowing her food. Sharifa Stewart RN September 19, 2023 12:31 PM documented in this encounter [facility] 08-22-2023 History of Present illness Narrative [facility] Telephonic Outreach Provider Action/FYI Contacted for: Routine Telephonic Outreach Contact made with patient: Yes Patient identified by name and date of . Discussed care with patient Are you experiencing any new or worsening symptoms you need to talk about today? No Disease Specific Do you check your blood pressure at home? Yes, Enter readings: 158/79 prior to bp med Do you have new or worsening shortness of breath with activity? No Do you feel like you are dehydrated for any reason, including not being able to eat or drink normally, or having less urine/much darker urine than normal for you? No Do you check your daily weight at home? No Based on assessment rn, the following disposition is advised: No symptoms or symptoms present, not severe. Routed to: No Action Needed LIDIA Education Provided this Outreach: No Pt states she has had an ongoing headache which her PCP is aware of. PCP making medication adjustments and per patient would like her to come in for a urine test. Pt states she has been unable to do so as of yet, but will. Advised patient if headache continues to increase or blood pressure continues to increase to contact PCP office or H@H. If unmanageable or with new or worsening symptoms go to ED. Pt verbalized understanding. Denies needs, questions, concerns at this time. Sharifa Stewart RN August 22, 2023 1:55 PM documented in this encounter [facility] 07-29-2023 Miscellaneous Notes Rx sent. TC to pt, notified of provider response. Pt requesting medication be called to [facility] d/t insurance. Otoniel Mas LPN Gabapentin discontinued. Will start her on 30 mg of cymbalta daily for chronic pain. Call in 3-4 weeks if pain not improving or with side effects as discussed. Short term rx sent to local pharmacy on file. Patient reports she discussed gabapentin with pcp, and has since decided she does not want to take the gabapentin. Reports she has talked to people that tell her cymbalta works really well and she has decided she wants to take that. Asking pcp to send Rx for 90 day supply to [facility] pharmacy. documented in this encounter [facility] 07-27-2023 History of Present illness Narrative Chief Complaint Patient presents with: Refill Request: Patient advised she needed to be seen regarding gabapentin HPI Tashia Fernandez is a 73 year old female who presents here today for Above Complaints.. At last OV in May we discussed weaning the patient of off her gabapentin because it was not helping with her lower back pain and due to concerns of adverse effects. She states that she weaned off as we discussed without withdrawal symptoms. 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 Cannot sleep due to this. Would like to restart previous dosage. Past medical history, appointments, medications, allergies reviewed. Previous Medical History PAST MEDICAL HISTORY Diagnosis Date Contact dermatitis and other eczema Degenerative arthritis of knee 05/24/2011 Delayed gastric emptying 07/24/2012 Diarrhea Diverticulitis Diverticulosis of colon (without mention of hemorrhage) Diverticulosis Dysphagia, unspecified 08/29/2017 Elevated alkaline phosphatase level 07/12/2018 Essential hypertension, benign GERD (gastroesophageal reflux disease) Hyperlipidemia Hypokalemia 09/25/2012 Hypothyroidism Impaired fasting glucose 11/19/2015 Inadequate pelvic muscles 01/17/2012 Lumbar disc disease with radiculopathy 09/01/2016 Lung nodule < 6cm on CT 10/15/2018 10/07/18: incidental 4.5 mm nodule RML thyrotoxicosis Nonrheumatic mitral (valve) insufficiency Obesity Other osteoporosis 12/21/2006 Pancreatitis Paroxysmal SVT (supraventricular tachycardia) ([facility]) Personal history of colonic polyps Colon polyps POLYP STOMACH 07/13/2007 Stage 3a chronic kidney disease (HCC) Statin intolerance 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--surgery not needed (2016) Tethering of spinal cord (HCC) 2014 Trigeminal neuralgia 10/11/2011 Trochanteric bursitis of left hip 07/24/2012 Unspecified hemorrhoids without mention of complication Hemorrhoids Previous Surgical History PAST SURGICAL HISTORY Procedure Laterality Date COLONOSCOPY FLX DX W/COLLJ SPEC WHEN PFRMD 12/2018 Colonoscopy COLONOSCOPY FLX DX W/COLLJ SPEC WHEN PFRMD 07/13/2007 Lax colon COLONOSCOPY FLX DX W/COLLJ SPEC WHEN PFRMD 03/26/2014 Colonoscopy COLONOSCOPY FLX DX W/COLLJ SPEC WHEN PFRMD 12/2018 [id number] 10 years COLONOSCOPY GEN ANES 04/28/2021 DECOMPRESSION PLANTAR DIGITAL NERVE 1999 heel spur/ plantar fasciitis repair Rt EGD 06/02/2021 EGD TRANSORAL BIOPSY SINGLE/MULTIPLE 07/13/2007 Gastritis, fundic gland polyps ESOPHAGOGASTRODUODENOSCOPY TRANSORAL DIAGNOSTIC 03/26/2014 EGD LAPAROSCOPY SURG CHOLECYSTECTOMY Cholecystectomy, lap LIG/TRNSXJ FLP TUBE ABDL/VAG APPR UNI/BI LIGATE FALLOPIAN TUBE NEUROPLASTY &/TRANSPOS MEDIAN NRV CARPAL TUNNE Carpal tunnel decomp bilateral OPEN REPAIR OF ROTATOR CUFF ACUTE 1992 Rotator cuff repair, right STRESS TEST,COMPLETE_*FL Family History FAMILY HISTORY Problem Relation Age of Onset Diabetes Mother Heart Mother Stroke Mother Hypertension Mother other (MVA) Father Hypertension Sister Heart Sister Hypertension Sister Heart Sister Hypertension Brother Heart Brother Hypertension Brother Cancer Brother Oral cancer Cancer Paternal Grandfather skin Breast Cancer Maternal Aunt Asthma No Family History Patient Allergies ALLERGIES Allergen Reactions Codeine Intolerance Chest pain Aceon [Perindopril * Rash, Cough Beta Blockers [Othe* Cough dry hacking cough Hctz [Other] Rash Imdur [Isosorbide] Other: See Comments headaches Lipitor [Atorvastat* Other: See Comments muscle cramps Lisinopril Cough dry hacking cough Spironolactone Other: See Comments headache Current Medications Current Outpatient Medications on File Prior to Visit Medication Sig isosorbide mononitrate ER (IMDUR) 30 mg 24 hr tablet Take 1 tablet by mouth once daily. levothyroxine (SYNTHROID) 88 mcg tablet Take 1 tablet by mouth once daily. amLODIPine (NORVASC) 2.5 mg tablet Take one tablet daily in addition to 5 mg to equal 7.5 mg daily amLODIPine (NORVASC) 5 mg tablet Take 1 tablet by mouth once daily. potassium chloride ER (KLOR-CON) 20 mEq tablet Take 2 tablets by mouth twice daily. amitriptyline (ELAVIL) 10 mg tablet Take two tablets at bedtime pantoprazole DR (PROTONIX) 40 mg tablet TAKE 1 TABLET BY MOUTH ONCE DAILY. TAKE ON EMPTY STOMACH 1/2 HOUR BEFORE MEAL. polyethylene glycol 3350 17 gram/dose powder Take 17 g by mouth once daily. Dissolve dose in 4 - 8 ounces of liquid and take as directed. losartan (COZAAR) 100 mg tablet Take 1 tablet by mouth once daily. Lancets lancets Test blood sugar(s) 1 times daily. Dx: Prediabetes Insulin: No blood sugar diagnostic (BLOOD GLUCOSE TEST) test strip Test blood sugar(s) 1 times daily. Dx: Prediabetes Insulin: No doxylamine succinate (SLEEP AID ORAL) Take by mouth daily at bedtime. calcium carbonate-Vit D3-minerals (CALTRATE) 600 mg calcium- 400 unit tab Take 2 tablets by mouth once daily. ondansetron orally disintegrating (ZOFRAN ODT) 4 mg disintegrating tablet Take 1 tablet by mouth every 6 hours as needed for Nausea/Vomiting. 0.9 % sodium chloride (NACL 0.9%) 0.9% solp Infuse 500 ml IV over [address] meclizine (ANTIVERT) 25 mg tab Take 1 tablet by mouth three times daily as needed (vertigo). Biotin 2,500 mcg cap Take 1 capsule by mouth once daily. aspirin, enteric coated (ASPIRIN, ENTERIC COATED) 81 mg EC tablet Take 81 mg by mouth once daily. gabapentin (NEURONTIN) 300 mg capsule Take 1 capsule every other night for 2 weeks, then every 3rd night for 2 weeks, then stop. labetalol (TRANDATE) 200 mg tablet Take 1 tablet by mouth twice daily. Current Facility-Administered Medications on File Prior to Visit Medication perflutren lipid microspheres 1.3 mL in NaCl (PF) 0.9% 10 mL injection (DEFINITY) sodium chloride 0.9 % (flush) 10 mL (BD POSIFLUSH) Social History Social History Tobacco Use Smoking status: Former Packs/day: 0.10 Years: 1.00 Additional pack years: 0.00 Total pack years: 0.10 Types: Cigarettes Smokeless tobacco: Never Tobacco comments: Smoked 1 year or less in 1980s. Spouse was smoker in home for 39 years. Father smoked in childhood home. Vaping Use Vaping Use: Never used Substance Use Topics Alcohol use: No Drug use: No Review of Symptoms REVIEW OF SYSTEMS GENERAL: No weight loss, malaise or fevers RESPIRATORY: Negative for cough, hemoptysis, wheezing, COPD, dyspnea or shortness of breath CARDIOVASCULAR: Negative for chest pain, leg swelling, hypertension, CHF or palpitations EXAM: BP 136/70 Pulse 78 Resp 16 Wt 78.8 kg (173 lb 12.8 oz) SpO2 94% BMI 33.94 kg/m General Appearance: Well appearing, alert, in no acute distress, well-hydrated, well nourished.. Skin: Skin color, texture, turgor normal, no suspicious rashes or lesions. Lungs: Lungs clear to auscultation. No wheezing, rhonchi, rales.. Heart: RRR without murmur, gallop, or rubs. No ectopy. Health Maintenance List BP Controlled (<130/80) due on 03/23/2022 Advance Directive Discussion Never done Influenza Vaccine(1) due on 07/07/2023 Covid-19 Vaccine(5 - Pfizer series) due on 10/24/2023 DTaP,Tdap,Td Vaccine(1 - Tdap) due on 05/29/2024 Shingrix Vaccine(1 of 2) due on 05/29/2024 LDL Cholesterol due on 09/27/2023 Hemoglobin/Hematocrit due on 12/27/2023 Annual PCP Team Chronic Disease Visit due on 05/29/2024 Serum Creatinine due on 05/29/2024 Diabetes Screening due on 05/29/2026 Lipid Screening due on 09/27/2027 Colorectal Cancer Screening due on 04/28/2031 Bone Density Screening Completed Depression Assessment Completed Hepatitis C Screening Completed Pneumococcal Vaccine: 65+ Completed Mammogram Screening Discontinued ASSESSMENT/PLAN: 1. 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 Will resume at previous dosage 300 mg qhs. Controlled substance agreement completed. Patient unable to give a urine drug screen today. Will come in in 24 hours to complete. - GABAPENTIN 300 MG CAPSULE - TOX SCREEN ROUT UR - PAIN PANEL, UR QUANT 2. Cervical radiculopathy - ICD9: 723.4, ICD10: M54.12 - GABAPENTIN 300 MG CAPSULE - TOX SCREEN ROUT UR - PAIN PANEL, UR QUANT Elisa Starr MD documented in this encounter [facility] 07-27-2023 Miscellaneous Notes Spoke with pt and information listed below given. Pt verbalizes understanding. Transferred pt to fire manager to get an pat booked. Gia Wilson LPN Per Dr. Starr she needs appointment to discuss as she told him last visit it didn't help so he said to wean off. Elizabeth Og APRN.CONSTANTINO Spoke with pt and she tried to wean off medication below but can't go with out. requesting a prescription be sent to the pharmacy for her. OPt takes 300 mg 1 at bedtime to sleep. If she does not take she can not sleep. Requesting a 3 month supple at [facility]. Please advise pt. Patient has been identified by name and date of : Yes, Provider Dr. Starr Date 07/26/23 Time 8:36 am Patient phones for refill(s): Requested Prescriptions Pending Prescriptions Disp Refills gabapentin (NEURONTIN) 300 mg capsule 90 capsule 1 Sig: Take 1 capsule by mouth daily at bedtime. Refused Prescriptions Disp Refills gabapentin (NEURONTIN) 300 mg capsule Sig: Take 1 capsule every other night for 2 weeks, then every 3rd night for 2 weeks, then stop. Refused By: ELIZABETH OG Reason for Refusal: A Refill not appropriate Date of last office visit in primary care: 05/29/23 next apt 11/29/23 Last 2 Encounter Wt Readings: Date: Wt: 06/06/2023 79.8 kg (176 lb) 06/06/2023 79.8 kg (176 lb) Previous labs/tests for medication: Not applicable Thank you. Gia Wilson LPN Looks like Dr. Starr weaned her off medication. Elizabeth Og APRN.CNP Patient has been identified by name and date of : Yes Last office visit in this department: 05/29/2023 RX INSTRUCTIONS: Patient aware RX will be sent to pharmacy. No need to notify patient. Patient phones requesting refills as follows: Requested Prescriptions Pending Prescriptions Disp Refills gabapentin (NEURONTIN) 300 mg capsule Sig: Take 1 capsule every other night for 2 weeks, then every 3rd night for 2 weeks, then stop. Please review and advise. Mis Jones documented in this encounter [facility] 07-14-2023 Miscellaneous [address] like Dr. Starr had weaned her off the gabapentin in May. Not sure why she is requesting this for refill. Elizabeth Og APRN.CNP Last office visit: 05/29/23 F/u scheduled: 11/29/22 Beatriz Veliz Ma Patient has been identified by name and date of : Yes Last office visit in this department: Visit date not found RX INSTRUCTIONS: Patient aware RX will be sent to pharmacy. No need to notify patient. Patient phones requesting refills as follows: Requested Prescriptions Pending Prescriptions Disp Refills gabapentin (NEURONTIN) 300 mg capsule Sig: Take 1 capsule every other night for 2 weeks, then every 3rd night for 2 weeks, then stop. isosorbide mononitrate ER (IMDUR) 30 mg 24 hr tablet 90 tablet 0 Sig: Take 1 tablet by mouth once daily. Please review and advise. Richa Santiago Pss documented in this encounter [facility] 06-30-2023 Miscellaneous Notes Patient has been identified by name and date of : Yes Last office visit in this department: 05/29/2023 RX INSTRUCTIONS: Patient aware RX will be sent to pharmacy. No need to notify patient. Patient phones requesting refills as follows: Requested Prescriptions Pending Prescriptions Disp Refills levothyroxine (SYNTHROID) 88 mcg tablet 90 tablet 3 Sig: Take 1 tablet by mouth once daily. Please review and advise. Lazaro Nicole documented in this encounter [facility] 06-26-2023 Miscellaneous Notes SANJEEV 05/29/23 NOV 11/29/23 Please review and advise. Thank you. ROBBIE Cooper Patient has been identified by name and date of : Yes Requested Prescriptions Pending Prescriptions Disp Refills amLODIPine (NORVASC) 2.5 mg tablet 90 tablet 1 Sig: Take one tablet daily in addition to 5 mg to equal 7.5 mg daily RX INSTRUCTIONS: 2nd request per patient for the 2.5 dose. Patient aware it will be sent to [facility]. No need to notify patient. Elizabeth Jason documented in this encounter [facility] 06-22-2023 History of Present illness Narrative [facility] Telephonic Outreach Provider Action/FYI -ckd, htn Patient's daughter denies questions/concerns/needs. Reviewed upcoming appointments. Contacted for: Routine Telephonic Outreach Contact made with patient: Yes Patient identified by name and date of . Discussed care with daughter Are you experiencing any new or worsening symptoms you need to talk about today? No Disease Specific Do you check your blood pressure at home? No Do you have new or worsening shortness of breath with activity? No Do you feel like you are dehydrated for any reason, including not being able to eat or drink normally, or having less urine/much darker urine than normal for you? No Do you check your daily weight at home? No Based on assessment rn, the following disposition is advised: No symptoms or symptoms present, not severe. Routed to: No Action Needed LIDIA Education Provided this Outreach: No Jannie Yeager RN June 22, 2023 9:55 AM documented in this encounter [facility] 06-21-2023 History of Present illness Narrative [facility] Telephonic Outreach Provider Action/FYI -ckd, htn Contacted for: Routine Telephonic Outreach Contact made with patient: No, left message. Jannie Yeager RN June 21, 2023 12:47 PM documented in this encounter [facility] 06-13-2023 Miscellaneous Notes Patient has been identified by name and date of : Yes Last office visit in this department: Visit date not found RX INSTRUCTIONS: Patient aware RX will be sent to pharmacy. No need to notify patient. Patient phones requesting refills as follows: Requested Prescriptions Pending Prescriptions Disp Refills amLODIPine (NORVASC) 2.5 mg tablet 90 tablet 1 Sig: Take one tablet daily in addition to 5 mg to equal 7.5 mg daily Please review and advise. Richa Jones documented in this encounter [facility] 06-06-2023 History of Present illness Narrative Images from the original note were not included. . Respiratory [place] Note Patient name: Tashia Fernandez PCP: Elisa Starr MD CC: chest pain and SOB HPI: Tashia Fernandez 73 year old obese female former minimal smoker but history of secondhand smoke exposure via her spouse, diverticulitis, GERD, HLD, hypothyroidism, CKD 3, SVT previously seen by Dr. Hartmann in 2016 with complaints of dyspnea on exertion. Spirometry was normal at that time and she underwent a FIDEL which was negative for bronchial hyperreactivity. More recently she was seen by Dr. Diamond in 2020 for incidental note of groundglass opacity in right middle lobe and bilateral lower lobes on abdominal CT obtained for diverticulitis July 2021. Past history notable for COVID infection in June 2021. Follow-up CT showed near complete resolution of her groundglass opacities. Her dyspnea on exertion reevaluated by pulmonary function test which were again normal. Being again today for same complaints. She relates a long history of anterior chest burning only with moderate exertion which then is associated with SOB, predating COVID infection. Chest pain/burning relieved by rest. Five minutes to recover. Chest pain does not radiate and does not occur at rest. She has had two heart catheterizations in the past which were normal and last pharmacologic stress test in 2015 was negative for inducible ischemia. No history of wheezing, coughing, dyspnea at rest, sensation that she cannot take a deep breath. DATA: PFT 11/2021: Six Minute Walk Test for This Encounter Oxygen Device Liters FIO2 SpO2% HR Activity Feet Speed (MPH) Flag R/A 98 68 Resting R/A 99 94 Six Minute Walk 1295 2.5 R/A 100 79 Recovery 1 minute post R/A 99 81 Recovery 2 minute post R/A 100 75 Recovery 3 minute post PFT today: FVC 2.34 L 104% FEV1 1.77 L 101% FEV1/FVC 76% FEF 25-75% 1.37 L 88% TLC 4.28 L 95% Spirometry and lung volumes are normal Labs: Last CBC normal Imaging / Diagnostic Studies: DATE OF EXAM: Dec 27 2022 11:57AM WOX [id number] - XR CHEST 2V FRONTAL/LAT / PROCEDURE REASON: multiple diagnoses CLINICAL HISTORY: Chest pain, unspecified type Palpitations MQ: [id number] EXAM DATE/TIME: 12/27/2022 11:57 AM COMPARISON: 07/30/2021 RESULT: Lines, tubes, and devices: None. Lungs and pleura: No consolidation. No lung mass. No pleural effusion. No pneumothorax. Cardiomediastinal silhouette: Normal cardiomediastinal silhouette. Bones and soft tissues: Unremarkable. I personally reviewed the images which shows a normal chest Echocardiogram 03/2023: CONCLUSIONS: - Technically difficult exam due to body habitus. - Exam indication: Syncope - The left ventricle is normal in size. There is mild left ventricular hypertrophy. Left ventricular systolic function is normal. EF = 66 5% (2D biplane) Grade I left ventricular diastolic dysfunction. - The right ventricle is normal in size. Right ventricular systolic function is normal. - The left atrial cavity is mildly dilated. - Exam was compared with the prior echocardiographic exam performed on 01/24/2022, no significant change. PAST MEDICAL HISTORY Diagnosis Date Contact dermatitis and other eczema Degenerative arthritis of knee 05/24/2011 Delayed gastric emptying 07/24/2012 Diarrhea Diverticulitis Diverticulosis of colon (without mention of hemorrhage) Diverticulosis Dysphagia, unspecified 08/29/2017 Elevated alkaline phosphatase level 07/12/2018 Essential hypertension, benign GERD (gastroesophageal reflux disease) Hyperlipidemia Hypokalemia 09/25/2012 Hypothyroidism Impaired fasting glucose 11/19/2015 Inadequate pelvic muscles 01/17/2012 Lumbar disc disease with radiculopathy 09/01/2016 Lung nodule < 6cm on CT 10/15/2018 10/07/18: incidental 4.5 mm nodule RML thyrotoxicosis Nonrheumatic mitral (valve) insufficiency Obesity Other osteoporosis 12/21/2006 Pancreatitis Paroxysmal SVT (supraventricular tachycardia) ([facility]) Personal history of colonic polyps Colon polyps POLYP STOMACH 07/13/2007 Stage 3a chronic kidney disease (HCC) Statin intolerance 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--surgery not needed (2015) Tethering of spinal cord ([facility]) 2014 Trigeminal neuralgia 10/11/2011 Trochanteric bursitis of left hip 07/24/2012 Unspecified hemorrhoids without mention of complication Hemorrhoids ALLERGIES Allergen Reactions Codeine Intolerance Chest pain Aceon [Perindopril * Rash, Cough Beta Blockers [Othe* Cough dry hacking cough Hctz [Other] Rash Imdur [Isosorbide] Other: See Comments headaches Lipitor [Atorvastat* Other: See Comments muscle cramps Lisinopril Cough dry hacking cough Spironolactone Other: See Comments headache amLODIPine (NORVASC) 5 mg tablet^Take 1 tablet by mouth once daily.^Disp: 90 tablet^Rfl: 1 gabapentin (NEURONTIN) 300 mg capsule^Take 1 capsule every other night for 2 weeks, then every 3rd night for 2 weeks, then stop.^Disp: ^Rfl: potassium chloride ER (KLOR-CON) 20 mEq tablet^Take 2 tablets by mouth twice daily.^Disp: 180 tablet^Rfl: 1 isosorbide mononitrate ER (IMDUR) 30 mg 24 hr tablet^Take 1 tablet by mouth once daily.^Disp: 90 tablet^Rfl: 0 amitriptyline (ELAVIL) 10 mg tablet^Take two tablets at bedtime^Disp: ^Rfl: pantoprazole DR (PROTONIX) 40 mg tablet^TAKE 1 TABLET BY MOUTH ONCE DAILY. TAKE ON EMPTY STOMACH 1/2 HOUR BEFORE MEAL.^Disp: 90 tablet^Rfl: 1 labetalol (TRANDATE) 200 mg tablet^Take 1 tablet by mouth twice daily.^Disp: 180 tablet^Rfl: 1 polyethylene glycol 3350 17 gram/dose powder^Take 17 g by mouth once daily. Dissolve dose in 4 - 8 ounces of liquid and take as directed.^Disp: ^Rfl: amLODIPine (NORVASC) 2.5 mg tablet^Take one tablet daily in addition to 5 mg to equal 7.5 mg daily^Disp: 90 tablet^Rfl: 1 losartan (COZAAR) 100 mg tablet^Take 1 tablet by mouth once daily.^Disp: 90 tablet^Rfl: 3 Lancets lancets^Test blood sugar(s) 1 times daily. Dx: Prediabetes Insulin: No^Disp: 100 Each^Rfl: 11 blood sugar diagnostic (BLOOD GLUCOSE TEST) test strip^Test blood sugar(s) 1 times daily. Dx: Prediabetes Insulin: No^Disp: 50 Strip^Rfl: 11 doxylamine succinate (SLEEP AID ORAL)^Take by mouth daily at bedtime.^Disp: ^Rfl: levothyroxine (SYNTHROID) 88 mcg tablet^Take 1 tablet by mouth once daily.^Disp: 90 tablet^Rfl: 3 calcium carbonate-Vit D3-minerals (CALTRATE) 600 mg calcium- 400 unit tab^Take 2 tablets by mouth once daily.^Disp: ^Rfl: ondansetron orally disintegrating (ZOFRAN ODT) 4 mg disintegrating tablet^Take 1 tablet by mouth every 6 hours as needed for Nausea/Vomiting.^Disp: 20 tablet^Rfl: 1 0.9 % sodium chloride (NACL 0.9%) 0.9% solp^Infuse 500 ml IV over [address]^Disp: 500 mL^Rfl: 0 meclizine (ANTIVERT) 25 mg tab^Take 1 tablet by mouth three times daily as needed (vertigo).^Disp: 30 tablet^Rfl: 1 Biotin 2,500 mcg cap^Take 1 capsule by mouth once daily.^Disp: ^Rfl: aspirin, enteric coated (ASPIRIN, ENTERIC COATED) 81 mg EC tablet^Take 81 mg by mouth once daily.^Disp: ^Rfl: Social History Tobacco Use Smoking status: Former Packs/day: 0.10 Years: 1.00 Total pack years: 0.10 Types: Cigarettes Smokeless tobacco: Never Tobacco comments: Smoked 1 year or less in 1980s. Spouse was smoker in home for 39 years. Father smoked in childhood home. Vaping Use Vaping Use: Never used Substance Use Topics Alcohol use: No Drug use: No Worked at [employer] Pets: cat and dog FAMILY HISTORY Problem Relation Age of Onset Diabetes Mother Heart Mother Stroke Mother Hypertension Mother other (MVA) Father Hypertension Sister Heart Sister Hypertension Sister Heart Sister Hypertension Brother Heart Brother Hypertension Brother Cancer Brother Oral cancer Cancer Paternal Grandfather skin Breast Cancer Maternal Aunt Asthma No Family History PAST SURGICAL HISTORY Procedure Laterality Date COLONOSCOPY FLX DX W/COLLJ SPEC WHEN PFRMD 12/2018 Colonoscopy COLONOSCOPY FLX DX W/COLLJ SPEC WHEN PFRMD 07/13/2007 Lax colon COLONOSCOPY FLX DX W/COLLJ SPEC WHEN PFRMD 03/26/2014 Colonoscopy COLONOSCOPY FLX DX W/COLLJ SPEC WHEN PFRMD 12/2018 [id number] 10 years COLONOSCOPY GEN ANES 04/28/2021 DECOMPRESSION PLANTAR DIGITAL NERVE 1999 heel spur/ plantar fasciitis repair Rt EGD 06/02/2021 EGD TRANSORAL BIOPSY SINGLE/MULTIPLE 07/13/2007 Gastritis, fundic gland polyps ESOPHAGOGASTRODUODENOSCOPY TRANSORAL DIAGNOSTIC 03/26/2014 EGD LAPAROSCOPY SURG CHOLECYSTECTOMY Cholecystectomy, lap LIG/TRNSXJ FLP TUBE ABDL/VAG APPR UNI/BI LIGATE FALLOPIAN TUBE NEUROPLASTY &/TRANSPOS MEDIAN NRV CARPAL TUNNE Carpal tunnel decomp bilateral OPEN REPAIR OF ROTATOR CUFF ACUTE 1992 Rotator cuff repair, right STRESS TEST,COMPLETE_*FL PMH, Social history, family history and surgical history reviewed and updated in EMR REVIEW OF SYSTEMS: CONSTITUTIONAL: No fevers, chills, nightsweats, unintended weight loss HEENT: Denies nasal congestion/sinus symptoms, problematic allergy problems. EYES: No diplopia or blurry vision. CARDIOVASCULAR: No palpitations, orthopnea, PND. Chest pain, [place], edema. PULM: See HPI GI: No dysphagia/odynophagia. GERD : No urinary complaints, including dysuria, gross hematuria or pyuria. NEURO: No new balance problems, peripheral weakness/paresthesias or numbness of concern. Spinal tethering MUSC-SKEL: No new joint pain, swelling, or erythema. PSY: No concerns regarding depression, anxiety INTEGUMENTARY: No new skin changes, eczema PHYSICAL EXAMINATION: BP 140/78 Pulse 62 Resp 16 Ht 5' 0 (1.52m) Wt 176 lb (79.8kg) SpO2 97% BMI 34.37 kg/(m^2). General Appearance: Obese female, NAD. Skin: Skin color, texture, turgor normal, no suspicious rashes or lesions. Head: Normocephalic, no masses, lesions, tenderness or abnormalities. Eyes: Sclera, conjunctiva normal. Oropharynx: No oral lesions. Neck: No JVD, masses, adenopathy. Lungs: Not labored, no wheezes or crackles. Heart: RRR, no murmur. Extremities: No edema, no clubbing. Musculoskeletal: No joint deformities. Neurologic: Alert and oriented, no focal findings. Assessment/Plan: Burning chest pain -Type of chest pain not consistent with underlying pulmonary pathology -Prior and current evaluation not consistent with obstructive lung disease -Clinical description of exertional chest pain is suspicious for cardiac source but patient has had previous cardiac evaluation that has not shown any significant CAD SOB -Exertional chest pain associated with SOB does not seem to be pulmonary in nature -Follow up with cardiology Alyx Marie MD Res[facility] [place] documented in this encounter [facility] 06-06-2023 Nurse Note Intake information documented in the prior visit with DAVID Hayden today. documented in this encounter [facility] 06-06-2023 History of Present illness Narrative PULM FUNCTION SMARTBLOCK: Provider: Elisa Starr MD Assisting Tech: Roxie Cortes RPFT Spirometry: 1 LV - Box: 1 documented in this encounter [facility] 05-18-2023 History of Present illness Narrative CDM Telephonic Outreach Provider Action/FYI Made call #1. NA/left vm. Contacted for: Routine Telephonic Outreach Contact made with patient: No, left message. Sharifa Stewart RN May 18, 2023 4:04 PM documented in this encounter [facility] 05-02-2023 Miscellaneous Notes Patient has been identified by name and date of : Yes Last office visit in this department: 04/10/2023 RX INSTRUCTIONS: Patient aware RX will be sent to pharmacy. No need to notify patient. Patient phones requesting refills as follows: Requested Prescriptions Pending Prescriptions Disp Refills potassium chloride ER (KLOR-CON) 20 mEq tablet 180 tablet 1 Sig: Take 2 tablets by mouth twice daily. Please review and advise. Vicenta Kennedy documented in this encounter [facility] 04-10-2023 Miscellaneous Notes Pt called and is notified of providers message and instructions. Pt voices understanding. Anusha Frey RN Please call patient and let her know I reviewed the testing she has had over the last few years I do not think we need to repeat any at this time. Continue plan as discussed in office today. Elizabeth Og APRN.CNP documented in this encounter [facility] 04-10-2023 Instructions Elizabeth Og APRN.CNP - 04/10/2023 7:49 AM EDT Amitriptyline take two tablets at bedtime Start taking gabapentin one tablet twice a day documented in this encounter [facility] 04-10-2023 History of Present illness Narrative 04/10/2023 Patient presents with: Pain: Right sided pain, has been going on for years that is getting worse SUBJECTIVE: This is a 73 year old that is here today for Above Complaints. ONSET: years- 15 years LOCATION: constant in right flank and will radiate around to upper abdomen. DURATION: CHARACTERISTICS: sharp AGGRAVATING FEATURES:eating and movement at times ALLEVIATING FEATURES: tylenol and gabapentin for tethered spinal cord Admits to a hx of cartons falling on her at work years ago and hit her head and back. She reports she was told the pain was related to her heart at one time? Reports has tethered spinal cord and has had gallbladder out. Admits to nausea at times Denies weight loss, extremity numbness, tingling, weakness, saddle anaesthesia, vomiting, diarrhea, melana, hematochezia, vomiting, dysuria, urinary urgency/frequency or hematuria PAST MEDICAL HISTORY Diagnosis Date Chronic kidney disease Contact dermatitis and other eczema Degenerative arthritis of knee 05/24/2011 Delayed gastric emptying 07/24/2012 Diarrhea Diverticulitis Diverticulosis of colon (without mention of hemorrhage) Diverticulosis Dysphagia, unspecified 08/29/2017 Elevated alkaline phosphatase level 07/12/2018 Essential hypertension, benign GERD (gastroesophageal reflux disease) Hyperlipidemia Hypokalemia 09/25/2012 Hypothyroidism Impaired fasting glucose 11/19/2015 Inadequate pelvic muscles 01/17/2012 Lumbar disc disease with radiculopathy 09/01/2016 Lung nodule < 6cm on CT 10/15/2018 10/07/18: incidental 4.5 mm nodule RML thyrotoxicosis Nonrheumatic mitral (valve) insufficiency Obesity Other osteoporosis 12/21/2006 Pancreatitis Paroxysmal SVT (supraventricular tachycardia) (HCC) Personal history of colonic polyps Colon polyps POLYP STOMACH 07/13/2007 Stage 3a chronic kidney disease (HCC) 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--surgery not needed (2016) Tethering of spinal cord (HCC) 2014 Trigeminal neuralgia 10/11/2011 Trochanteric bursitis of left hip 07/24/2012 Unspecified hemorrhoids without mention of complication Hemorrhoids ALLERGIES Codeine, Aceon [Perindopril Erbumine], Beta Blockers [Other], Hctz [Other], Imdur [Isosorbide], Lipitor [Atorvastatin Calcium], Lisinopril, and Spironolactone MEDICATIONS Current Outpatient Medications Medication Sig pantoprazole DR (PROTONIX) 40 mg tablet TAKE 1 TABLET BY MOUTH ONCE DAILY. TAKE ON EMPTY STOMACH 1/2 HOUR BEFORE MEAL. potassium chloride ER (KLOR-CON) 20 mEq tablet Take 2 tablets by mouth twice daily. gabapentin (NEURONTIN) 300 mg capsule Take 1 capsule by mouth twice daily as needed for up to 90 days. isosorbide mononitrate ER (IMDUR) 30 mg 24 hr tablet Take 1 tablet by mouth once daily. labetalol (TRANDATE) 200 mg tablet Take 1 tablet by mouth twice daily. polyethylene glycol 3350 17 gram/dose powder Take 17 g by mouth once daily. Dissolve dose in 4 - 8 ounces of liquid and take as directed. amLODIPine (NORVASC) 2.5 mg tablet Take one tablet daily in addition to 5 mg to equal 7.5 mg daily losartan (COZAAR) 100 mg tablet Take 1 tablet by mouth once daily. Lancets lancets Test blood sugar(s) 1 times daily. Dx: Prediabetes Insulin: No blood sugar diagnostic (BLOOD GLUCOSE TEST) test strip Test blood sugar(s) 1 times daily. Dx: Prediabetes Insulin: No amitriptyline (ELAVIL) 10 mg tablet Take 1 tablet by mouth daily at bedtime. doxylamine succinate (SLEEP AID ORAL) Take by mouth daily at bedtime. levothyroxine (SYNTHROID) 88 mcg tablet Take 1 tablet by mouth once daily. amLODIPine (NORVASC) 5 mg tablet Take 1 tablet by mouth once daily. calcium carbonate-Vit D3-minerals (CALTRATE) 600 mg calcium- 400 unit tab Take 2 tablets by mouth once daily. polyethylene glycol 3350 (MIRALAX, GLYCOLAX) 17 gram/dose powder Use as directed for Miralax / Gatorade Bowel Prep Kit (Patient taking differently: 17 g once daily. Use as directed for Miralax / Gatorade Bowel Prep Kit) Bifidobacterium infantis (ALIGN ORAL) Take by mouth once daily. (Patient not taking: Reported on 11/24/2021 ) ondansetron orally disintegrating (ZOFRAN ODT) 4 mg disintegrating tablet Take 1 tablet by mouth every 6 hours as needed for Nausea/Vomiting. 0.9 % sodium chloride (NACL 0.9%) 0.9% solp Infuse 500 ml IV over [address] meclizine (ANTIVERT) 25 mg tab Take 1 tablet by mouth three times daily as needed (vertigo). Biotin 2,500 mcg cap Take 1 capsule by mouth once daily. aspirin, enteric coated (ASPIRIN, ENTERIC COATED) 81 mg EC tablet Take 81 mg by mouth once daily. Current Facility-Administered Medications Medication Dose Route Frequency perflutren lipid microspheres 1.3 mL in NaCl (PF) 0.9% 10 mL injection (DEFINITY) INTRAVENOUS DIRECTED PRN sodium chloride 0.9 % (flush) 10 mL (BD POSIFLUSH) 10 mL INTRAVENOUS DIRECTED PRN Medications and allergies reviewed by this provider. SOCIAL HISTORY Social History Tobacco Use Smoking status: Former Packs/day: 0.10 Years: 1.00 Pack years: 0.10 Types: Cigarettes Smokeless tobacco: Never Tobacco comments: Smoked 1 year or less in 1980s. Spouse was smoker in home for 39 years. Father smoked in childhood home. Vaping Use Vaping Use: Never used Substance Use Topics Alcohol use: No Drug use: No REVIEW OF SYSTEMS All other reviewed and negative other than HPI. OBJECTIVE: BP 128/76 Pulse 65 Wt 79.4 kg (175 lb) SpO2 96% BMI 34.18 kg/m . Vital signs reviewed by this provider. APPEARANCE Well appearing, alert, in no acute distress, well-hydrated, well nourished. EYES PERRLA, conjunctiva and sclera normal. HEART RRR with normal S1 and S2, no murmurs, no gallops, no JVD appreciated LUNG clear to auscultation BACK: Mild TTP right flank. FROM without difficulty ABDOMEN bowel sounds normoactive, no bruits, soft, non-distended. Mild TTP RUQ- no rebound tenderness or guarding EXTREMITIES Extremities normal, No deformities, No skin discoloration, and No edema NEURO Awake, alert and oriented x 3, patellar reflexes symmetrical, Normal gait, No involuntary motions., and negative findings: muscle tone normal, muscle strength normal, sensation to light touch and pinprick normal, reflexes normal and symmetric, plantar response downgoing bilaterally SKIN Skin color, texture, turgor normal, no suspicious rashes or lesions to exposed skin DTAP,TDAP,TD(1 - Tdap) Never done SHINGRIX VACCINE(1 of 2) Never done BP CONTROLLED (<130/80) due on 03/23/2022 ADVANCE DIRECTIVE DISCUSSION Never done DEPRESSION ASSESSMENT Never done COVID-19 VACCINE(5 - Booster for Pfizer series) due on 10/24/2023 LDL CHOLESTEROL due on 09/27/2023 MAMMOGRAM due on 10/11/2023 SERUM CREATININE due on 12/27/2023 HEMOGLOBIN/HEMATOCRIT due on 12/27/2023 ANNUAL PCP TEAM CHRONIC DISEASE VISIT due on 04/10/2024 DIABETES SCREEN due on 12/27/2025 LIPID SCREEN due on 09/27/2027 COLORECTAL CANCER SCREENING due on 04/28/2031 BONE DENSITY Completed INFLUENZA Completed HEPATITIS C SCREENING Completed PNEUMOCOCCAL: 65+ Completed ASSESSMENT/PLAN: 1. Chronic right flank pain - ICD9: 789.09, 338.29, ICD10: R10.9, G89.29 (primary diagnosis) - multiple tests completed over the years for this - no red flag symptoms or exam findings - red flag symptoms discussed, verbalizes understanding - possible nerve pain - recommend she increase her amitriptyline to two tablets at bedtime and increase gabapentin to twice a day as she only takes once - will review past testing to see if anything we may need to reorder - follow-up if symptoms fail to improve to ER with red flag symptoms 2. Chronic upper abdominal pain - ICD9: 789.09, 338.29, ICD10: R10.10, G89.29 - consider adding on Pepcid - plan as in #1 Elizabeth Podlogar, BOWLING BALL ASSEMBLER.CASH ACCOUNTING CLERK Prescription instructions reviewed with patient as applicable. Patient advised if symptoms do not improve or if symptoms worsen sooner, to contact their primary care physician. Potential red flag symptoms discussed with the patient. Reviewed appropriate action plan to take if red flag symptoms occur. Patient agreeable to treatment plan. I spent a total of 35 minutes on the date of the service which included preparing to see the patient, [id number] patient care, completing clinical documentation, obtaining and/or reviewing separately obtained history, performing a medically appropriate examination, counseling and educating the patient/family/caregiver, and ordering medications, tests, or procedures. documented in this encounter [facility] 03-09-2023 Miscellaneous Notes Patient notified and transferred to a PSS to schedule appointments. Images from the original note were not included. Zoya Almaraz APRN.CNP You 7 hours ago (9:11 AM) Yes I gave her referral to pulmonary and ordered an echocardiogram and a recent office visit. Thank you Patient returned call and given results and provider's response. Patient is asking is she is to schedule an Echo and see Dr. Marie in pulmonology? Called and left message on identified voice mail for pt to return call. Please advise of below results and close encounter when pt calls back. Thank you! Vickie Vergara, RN ----- Message from Zoya Almaraz APRN.CNP sent at 03/08/2023 1:38 PM EDT ----- Please call patient and notify her of monitor results. Revealed some episodes of SVT which she has a known hx of. Continue beta gustavo. No slow heart rates, pauses or significant heart block to explain her syncope. Thank you! Called by [facility] to reports 2 events while wearing the patch. 12 beat run of v tach with HR 115/min lasting 5.8 seconds on 02/25/23 4 beat run of v tach with HR 124/min lasting 2 seconds on 02/28/23 State they will be sending full report shortly. Adriana Rogers RN documented in this encounter [facility] 03-06-2023 History of Present illness Narrative CDM Telephonic Outreach Provider Action/FYI Contacted for: Routine Telephonic Outreach Contact made with patient: Yes Patient identified by name and date of . Discussed care with patient Are you experiencing any new or worsening symptoms you need to talk about today? No Disease Specific Do you check your blood pressure at home? No Do you have new or worsening shortness of breath with activity? No Do you feel like you are dehydrated for any reason, including not being able to eat or drink normally, or having less urine/much darker urine than normal for you? No Do you check your daily weight at home? No Based on assessment rn, the following disposition is advised: No symptoms or symptoms present, not severe. Routed to: No Action Needed LIDIA Education Provided this Outreach: Yes and CDM CKD goal initiated. Jannie Wyatt RN July 25, 2023 4:32 PM documented in this encounter [facility] 02-23-2023 History of Present illness Narrative POPULATION HEALTH NAVIGATION OUTREACH Action/FYI February 23, 2023 10:58 AM Spoke with patient to assist with scheduling needs. Unable to assist with new PCP request at this time. Patient would like to remain at [facility]. Only PCP accepting new patient is Dr Starr or [facility]. Patient is going to continue to see Veronica CONSTANTINO Og at this time. Declined to schedule any appointments right now, thank you Patient Identified by Name and : YES, via phone Outreach Outcome/Action Spoke to patient / parent / legal guardian: Patient declined Did you use a PCP flex slot to schedule this appointment? N/A Reason for Outreach [facility] Payer: Payor: [employer] MEDICARE / Plan: Adeptence / Product Type: HMO / Care Gap Reviewed:: Follow-up appointment Reminder: Reminder note to check Health Maintenance for items below Health Maintenance items due: DTAP,TDAP,TD(1 - Tdap) Never done SHINGRIX VACCINE(1 of 2) Never done BP CONTROLLED (<130/80) due on 03/23/2022 ADVANCE DIRECTIVE DISCUSSION Never done DEPRESSION ASSESSMENT Never done Navigation Signature: Alyx Brand MA February 23, 2023 10:58 AM CDM Telephonic Outreach Provider Pablo/MICHELLEI Pt denies new or worsening CDM symptoms. Pt states she is not happy with her PCP and would like to be set up with a new one. She prefers a female. Line Puller: Please contact patient to assist in initiating care with a new PCP. Thanks. Patient denies needs, questions, concerns at this time! Reminded about H@H [email or web address]. End outreach. Contacted for: Routine Telephonic Outreach Contact made with patient: Yes Patient identified by name and date of . Discussed care with patient Are you experiencing any new or worsening symptoms you need to talk about today? No Disease Specific Do you check your blood pressure at home? Yes, Enter readings: 128/62 Do you have new or worsening shortness of breath with activity? No Do you feel like you are dehydrated for any reason, including not being able to eat or drink normally, or having less urine/much darker urine than normal for you? No Do you check your daily weight at home? No Based on assessment rn, the following disposition is advised: Symptoms present, not severe. Routed to: Navigation Team: Annual Wellness visit Initiate care with NO PCP. LIDIA Education Provided this Outreach: No Sharifa Stewart RN February 23, 2023 10:03 [facility] Telephonic Outreach Provider Pablo/CHAD Made call #1 to patient. NA/left vm. Left H@H reminder. Contacted for: Routine Telephonic Outreach Contact made with patient: No, left message. Sharifa Stewart RN February 22, 2023 11:11 AM documented in this encounter [facility] 02-07-2023 Note HNO ID: [id number] Author: Zoya Almaraz APRN.CASH ACCOUNTING CLERK Service: ? Author Type: Nurse Practitioner Type: Progress Notes Filed: 02/07/2023 2:25 PM Note Text: Chief Complaint Patient presents with: Cardiology Follow Up : Cardiac clearance History of Present Illness: Tashia Fernandez is a 72 year old female who presents for routine follow up. She has a PMhx of chest pain (normal coronaries on left heart catheterization 2015), hypertension, hyperlipidemia, obesity. She is known to Dr. Benavides, last seen in office on 11/14/2022 at our [place] location. She previously followed with Dr. Kumar in [place]. 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 Today, she states her chest discomfort is unchanged. She believes her chest discomfort could be from an old injury or hiatal hernia. She experiences some dyspnea on exertion, for example with picking up sticks in her yard recently after windstorm and also feels shortness of breath sensitivities with cold air. She has some concerns regarding ground glass opacities seen incidentally on CT of her abdomen from 2020. I recommend she establish with pulmonary. She explains to me an episode of syncope she experienced about 2 weeks ago. She has a history of lightheadedness that usually resolves with laying down. She became lightheaded and laid down had sudden onset of nausea got up to the bathroom and then did end up having complete syncope. Complete syncope has also happen March 2021 when prepping for GI surgery. I recommended a Holter monitor and echocardiogram for further evaluation of her syncopal episode. We could also consider a tilt table test should she have ongoing episodes that are positional, blood pressure or heart rate related. She has had a carotid ultrasound in March 2021 without any significant stenosis noted. PAST MEDICAL HISTORY Diagnosis Date Chronic kidney disease Contact dermatitis and other eczema Degenerative arthritis of knee 05/24/2011 Delayed gastric emptying 07/24/2012 Diarrhea Diverticulitis Diverticulosis of colon (without mention of hemorrhage) Diverticulosis Dysphagia, unspecified 08/29/2017 Elevated alkaline phosphatase level 07/12/2018 Essential hypertension, benign GERD (gastroesophageal reflux disease) Hyperlipidemia Hypokalemia 09/25/2012 Hypothyroidism Impaired fasting glucose 11/19/2015 Inadequate pelvic muscles 01/17/2012 Lumbar disc disease with radiculopathy 09/01/2016 Lung nodule < 6cm on CT 10/15/2018 10/07/18: incidental 4.5 mm nodule RML thyrotoxicosis Nonrheumatic mitral (valve) insufficiency Obesity Other osteoporosis 12/21/2006 Pancreatitis Paroxysmal SVT (supraventricular tachycardia) (HCC) Personal history of colonic polyps Colon polyps POLYP STOMACH 07/13/2007 Stage 3a chronic kidney disease (HCC) 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--surgery not needed (2016) Tethering of spinal cord ([facility]) 2014 Trigeminal neuralgia 10/11/2011 Trochanteric bursitis of left hip 07/24/2012 Unspecified hemorrhoids without mention of complication Hemorrhoids PAST SURGICAL HISTORY Procedure Laterality Date COLONOSCOPY FLX DX W/COLLJ SPEC WHEN PFRMD 12/2018 Colonoscopy COLONOSCOPY FLX DX W/COLLJ SPEC WHEN PFRMD 07/13/2007 Lax colon COLONOSCOPY FLX DX W/COLLJ SPEC WHEN PFRMD 03/26/2014 Colonoscopy COLONOSCOPY FLX DX W/COLLJ SPEC WHEN PFRMD 12/2018 [id number] 10 years COLONOSCOPY GEN ANES 04/28/2021 DECOMPRESSION PLANTAR DIGITAL NERVE 1999 heel spur/ plantar fasciitis repair Rt EGD 06/02/2021 EGD TRANSORAL BIOPSY SINGLE/MULTIPLE 07/13/2007 Gastritis, fundic gland polyps ESOPHAGOGASTRODUODENOSCOPY TRANSORAL DIAGNOSTIC 03/26/2014 EGD LAPAROSCOPY SURG CHOLECYSTECTOMY Cholecystectomy, lap LIG/TRNSXJ FLP TUBE ABDL/VAG APPR UNI/BI NEUROPLASTY AND/TRANSPOS MEDIAN NRV CARPAL TUNNE Carpal tunnel decomp bilateral OPEN REPAIR OF ROTATOR CUFF ACUTE 1992 Rotator cuff repair, right STRESS TEST,COMPLETE_*FL FAMILY HISTORY Problem Relation Age of Onset Diabetes Mother Heart Mother Stroke Mother Hypertension Mother other (MVA) Father Hypertension Sister Heart Sister Hypertension Sister Heart Sister Hypertension Brother Heart Brother Hypertension Brother Cancer Brother Cancer Paternal Grandfather skin Breast Cancer Maternal Aunt Social History Tobacco Use Smoking status: Former Packs/day: 0.10 Years: 1.00 Pack years: 0.10 Types: Cigarettes Smokeless tobacco: Never Tobacco comments: Smoked 1 year or less in 1980s. Spouse was smoker in home for 39 years. Father smoked in childhood home. Vaping Use Vaping Use: Never used Substance Use Topics Alcohol use: No Drug use: No ALLERGIES Allergen Reactions Codeine Intolerance Chest pain Aceon [Perindopril * Rash, Cough (more content not included)... [facility] 02-07-2023 Instructions Zoya Almaraz APRN.[facility] - 02/07/2023 1:57 PM EDT Images from the original note were not included. CORONARY ARTERY DISEASE View image View image WHAT IS CORONARY ARTERY DISEASE? Coronary artery disease (CAD) is a type of heart disease caused by a problem with the blood vessels that bring blood and oxygen to the heart muscle. These arteries are called the coronary arteries. This disease increases your risk for heart attack and sudden . WHAT IS THE CAUSE? Fatty deposits called plaque may build up in blood vessels and make them narrower. The narrowing decreases the amount of blood flow to the heart. Plaque also increases the chance that blood clots may form and block a blood vessel, which can cause a heart attack or stroke. Your risk for CAD may be higher if you: Have a family history of coronary artery disease at an early age Smoke Have high blood pressure Have diabetes Are very overweight Don t get enough exercise Have high levels of blood fat--for example, high cholesterol WHAT ARE THE SYMPTOMS? Coronary artery disease may not cause any symptoms. When there are symptoms, the most common one is chest pain, called angina. You may feel: A feeling of tightness or heaviness in the chest Squeezing, pressure, or burning in the chest Angina symptoms usually: Last for 5 minutes or less and go away with rest or medicine such as nitroglycerin. Happen when the heart has to work harder, such as after a heavy meal or during physical activity or emotional stress. Angina may also happen when you are resting. Call 911 for emergency help right away if you have symptoms of a heart attack. The most common symptoms include: Chest pain or pressure, squeezing, or fullness in the center of your chest that lasts more than a few minutes, or goes away and comes back (may feel like indigestion or heartburn) Pain or discomfort in one or both arms or shoulders, or in your back, neck, jaw, or stomach Trouble breathing Breaking out in a cold sweat for no known reason If your provider has prescribed nitroglycerin for angina, pain that does not go away after taking your nitroglycerin as directed Along with these symptoms, you may also feel very tired, faint, or be sick to your stomach. HOW IS IT DIAGNOSED? Your healthcare provider will ask about your symptoms and medical history and examine you. Tests may include: Blood tests An ECG (also called an EKG or electrocardiogram), which measures and records your heartbeat. An exercise treadmill test to see how your heart works when you exercise An echocardiogram, which uses sound waves (ultrasound) to see how well your heart is pumping Angiogram, which is a series of X-rays taken after your healthcare provider injects a special dye into your blood vessels to show the correa of the arteries and any blockage CT scan, which uses X-rays and a computer to show detailed pictures of the arteries HOW IS IT TREATED? Your treatment depends on many factors, such as your age, heart muscle function, and other health problems. At first, treatment may include diet changes and an exercise program. Your healthcare provider may prescribe medicine. Many people need to take 2 or more medicines to help prevent a heart attack or stroke. It may take several weeks or months to find the best treatment for you. Your provider may also prescribe other types of medicine to lower blood pressure, help stop chest pain, control an irregular heartbeat, help prevent blood clots, or lower blood fat (cholesterol). Your provider may recommend a daily low dose of aspirin. Taking an aspirin every day may lower your risk for a heart attack or stroke. Not everyone should take aspirin. Daily use of aspirin can cause problems, such as stomach irritation, bleeding, and hearing loss. Ask your healthcare provider if you should take aspirin and if so, how much to take. If your coronary arteries are badly blocked, you may need balloon angioplasty or bypass surgery. A balloon angioplasty opens blocked blood vessels and improves blood flow. A metal mesh device called a stent is usually left in the blood vessels to help keep them open. Bypass surgery uses blood vessels from other parts of the body, or manmade material, to make a new path around a blocked area. HOW CAN I TAKE CARE OF MYSELF? CC If you have coronary artery disease, there are things you can do to take care of yourself now and prevent problems in the future. Follow your provider's advice about activity, exercise, medicine, and follow-up visits. Lower the amount of salt, saturated and trans fats, and cholesterol in your diet. Work with your healthcare provider to control diabetes, blood pressure, or other health problems you may have. Try to keep a healthy weight. If you are overweight, talk to your provider about ways to lose weight. If you smoke, try to quit. Talk to your healthcare provider about ways to quit smoking. Ask your healthcare provider: How and when you will hear your test results How long it will take to recover What activities you should avoid and when you can return to your normal activities How to take care of yourself at home What symptoms or problems you should watch for and what to do if you have them Make sure you know when you should come back for a checkup. HOW CAN I HELP PREVENT CORONARY ARTERY DISEASE? You can prevent this disease with a heart-healthy lifestyle: Eat a healthy diet and keep a healthy weight. Stay fit with the right kind of exercise for you. Find ways to manage stress. Don t smoke. Limit your use of alcohol. Talk to your healthcare provider about your personal and family medical history and your lifestyle habits. This will help you know what you can do to lower your risk for coronary artery disease. If you have a strong family history of CAD, a healthy lifestyle may slow the start of the disease and maybe even keep you from getting it. However, you must have regular checkups to keep a close watch on the health of your heart. Developed by [employer]. Published by [employer]. Copyright 2014 [employer] and/or one of its subsidiaries. All rights reserved. documented in this encounter [facility] 02-07-2023 Nurse Note No cardiac concerns today documented in this encounter [facility] 02-07-2023 History of Present illness Narrative Chief Complaint Patient presents with: Cardiology Follow Up : Cardiac clearance History of Present Illness: Tashia Fernandez is a 72 year old female who presents for routine follow up. She has a PMhx of chest pain (normal coronaries on left heart catheterization 2015), hypertension, hyperlipidemia, obesity. She is known to Dr. Benavides, last seen in office on 11/14/2022 at our [place] location. She previously followed with Dr. Kumar in [place]. 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 Today, she states her chest discomfort is unchanged. She believes her chest discomfort could be from an old injury or hiatal hernia. She experiences some dyspnea on exertion, for example with picking up sticks in her yard recently after windstorm and also feels shortness of breath sensitivities with cold air. She has some concerns regarding ground glass opacities seen incidentally on CT of her abdomen from 2020. I recommend she establish with pulmonary. She explains to me an episode of syncope she experienced about 2 weeks ago. She has a history of lightheadedness that usually resolves with laying down. She became lightheaded and laid down had sudden onset of nausea got up to the bathroom and then did end up having complete syncope. Complete syncope has also happen March 2021 when prepping for GI surgery. I recommended a Holter monitor and echocardiogram for further evaluation of her syncopal episode. We could also consider a tilt table test should she have ongoing episodes that are positional, blood pressure or heart rate related. She has had a carotid ultrasound in March 2021 without any significant stenosis noted. PAST MEDICAL HISTORY Diagnosis Date Chronic kidney disease Contact dermatitis and other eczema Degenerative arthritis of knee 05/24/2011 Delayed gastric emptying 07/24/2012 Diarrhea Diverticulitis Diverticulosis of colon (without mention of hemorrhage) Diverticulosis Dysphagia, unspecified 08/29/2017 Elevated alkaline phosphatase level 07/12/2018 Essential hypertension, benign GERD (gastroesophageal reflux disease) Hyperlipidemia Hypokalemia 09/25/2012 Hypothyroidism Impaired fasting glucose 11/19/2015 Inadequate pelvic muscles 01/17/2012 Lumbar disc disease with radiculopathy 09/01/2016 Lung nodule < 6cm on CT 10/15/2018 10/07/18: incidental 4.5 mm nodule RML thyrotoxicosis Nonrheumatic mitral (valve) insufficiency Obesity Other osteoporosis 12/21/2006 Pancreatitis Paroxysmal SVT (supraventricular tachycardia) (HCC) Personal history of colonic polyps Colon polyps POLYP STOMACH 07/13/2007 Stage 3a chronic kidney disease (HCC) 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--surgery not needed (2016) Tethering of spinal cord (HCC) 2014 Trigeminal neuralgia 10/11/2011 Trochanteric bursitis of left hip 07/24/2012 Unspecified hemorrhoids without mention of complication Hemorrhoids PAST SURGICAL HISTORY Procedure Laterality Date COLONOSCOPY FLX DX W/COLLJ SPEC WHEN PFRMD 12/2018 Colonoscopy COLONOSCOPY FLX DX W/COLLJ SPEC WHEN PFRMD 07/13/2007 Lax colon COLONOSCOPY FLX DX W/COLLJ SPEC WHEN PFRMD 03/26/2014 Colonoscopy COLONOSCOPY FLX DX W/COLLJ SPEC WHEN PFRMD 12/2018 [id number] 10 years COLONOSCOPY GEN ANES 04/28/2021 DECOMPRESSION PLANTAR DIGITAL NERVE 1999 heel spur/ plantar fasciitis repair Rt EGD 06/02/2021 EGD TRANSORAL BIOPSY SINGLE/MULTIPLE 07/13/2007 Gastritis, fundic gland polyps ESOPHAGOGASTRODUODENOSCOPY TRANSORAL DIAGNOSTIC 03/26/2014 EGD LAPAROSCOPY SURG CHOLECYSTECTOMY Cholecystectomy, lap LIG/TRNSXJ FLP TUBE ABDL/VAG APPR UNI/BI NEUROPLASTY &/TRANSPOS MEDIAN NRV CARPAL TUNNE Carpal tunnel decomp bilateral OPEN REPAIR OF ROTATOR CUFF ACUTE 1992 Rotator cuff repair, right STRESS TEST,COMPLETE_*FL FAMILY HISTORY Problem Relation Age of Onset Diabetes Mother Heart Mother Stroke Mother Hypertension Mother other (MVA) Father Hypertension Sister Heart Sister Hypertension Sister Heart Sister Hypertension Brother Heart Brother Hypertension Brother Cancer Brother Cancer Paternal Grandfather skin Breast Cancer Maternal Aunt Social History Tobacco Use Smoking status: Former Packs/day: 0.10 Years: 1.00 Pack years: 0.10 Types: Cigarettes Smokeless tobacco: Never Tobacco comments: Smoked 1 year or less in 1980s. Spouse was smoker in home for 39 years. Father smoked in childhood home. Vaping Use Vaping Use: Never used Substance Use Topics Alcohol use: No Drug use: No ALLERGIES Allergen Reactions Codeine Intolerance Chest pain Aceon [Perindopril * Rash, Cough Beta Blockers [Othe* Cough dry hacking cough Hctz [Other] Rash Imdur [Isosorbide] Other: See Comments headaches Lipitor [Atorvastat* Other: See Comments muscle cramps Lisinopril Cough dry hacking cough Spironolactone Other: See Comments headache Medications: Current Outpatient Medications Medication Sig Dispense Refill gabapentin (NEURONTIN) 300 mg capsule Take 1 capsule by mouth twice daily as needed for up to 90 days. 180 capsule 0 isosorbide mononitrate ER (IMDUR) 30 mg 24 hr tablet Take 1 tablet by mouth once daily. 90 tablet 0 labetalol (TRANDATE) 200 mg tablet Take 1 tablet by mouth twice daily. 180 tablet 1 polyethylene glycol 3350 17 gram/dose powder Take 17 g by mouth once daily. Dissolve dose in 4 - 8 ounces of liquid and take as directed. amLODIPine (NORVASC) 2.5 mg tablet Take one tablet daily in addition to 5 mg to equal 7.5 mg daily 90 tablet 1 losartan (COZAAR) 100 mg tablet Take 1 tablet by mouth once daily. 90 tablet 3 Lancets lancets Test blood sugar(s) 1 times daily. Dx: Prediabetes Insulin: No 100 Each 11 blood sugar diagnostic (BLOOD GLUCOSE TEST) test strip Test blood sugar(s) 1 times daily. Dx: Prediabetes Insulin: No 50 Strip 11 potassium chloride ER (K-DUR, KLOR-CON) 20 mEq tablet Take 2 tablets by mouth twice daily. 180 tablet 1 doxylamine succinate (SLEEP AID ORAL) Take by mouth daily at bedtime. levothyroxine (SYNTHROID) 88 mcg tablet Take 1 tablet by mouth once daily. 90 tablet 3 amLODIPine (NORVASC) 5 mg tablet Take 1 tablet by mouth once daily. [address] (PROTONIX) 40 mg tablet TAKE 1 TABLET BY MOUTH ONCE DAILY. TAKE ON EMPTY STOMACH 1/2 HOUR BEFORE MEAL. 90 tablet 3 calcium carbonate-Vit D3-minerals (CALTRATE) 600 mg calcium- 400 unit tab Take 2 tablets by mouth once daily. ondansetron orally disintegrating (ZOFRAN ODT) 4 mg disintegrating tablet Take 1 tablet by mouth every 6 hours as needed for Nausea/Vomiting. 20 tablet 1 meclizine (ANTIVERT) 25 mg tab Take 1 tablet by mouth three times daily as needed (vertigo). 30 tablet 1 Biotin 2,500 mcg cap Take 1 capsule by mouth once daily. aspirin, enteric coated (ASPIRIN, ENTERIC COATED) 81 mg EC tablet Take 81 mg by mouth once daily. amitriptyline (ELAVIL) 10 mg tablet Take 1 tablet by mouth daily at bedtime. 90 tablet 0 polyethylene glycol 3350 (MIRALAX, GLYCOLAX) 17 gram/dose powder Use as directed for Miralax / Gatorade Bowel Prep Kit (Patient taking differently: 17 g once daily. Use as directed for Miralax / Gatorade Bowel Prep Kit) 238 g 0 Bifidobacterium infantis (ALIGN ORAL) Take by mouth once daily. (Patient not taking: Reported on 11/24/2021 ) 0.9 % sodium chloride (NACL 0.9%) 0.9% solp Infuse 500 ml IV over [address] 500 mL 0 Current Facility-Administered Medications Medication Dose Route Frequency Provider Last Rate Last Admin perflutren lipid microspheres 1.3 mL in NaCl (PF) 0.9% 10 mL injection (DEFINITY) INTRAVENOUS DIRECTED PRN Zoya Almaraz APRN.CASH ACCOUNTING CLERK sodium chloride 0.9 % (flush) 10 mL (BD POSIFLUSH) 10 mL INTRAVENOUS DIRECTED PRN Zoya Almaraz APRN.CASH ACCOUNTING CLERK perflutren lipid microspheres 1.3 mL in NaCl (PF) 0.9% 10 mL injection (DEFINITY) INTRAVENOUS DIRECTED PRN Elisa Starr MD sodium chloride 0.9 % (flush) 10 mL (BD POSIFLUSH) 10 mL INTRAVENOUS DIRECTED PRN Elisa Starr MD Review of Systems Constitutional: Negative for chills, diaphoresis, fever, malaise/fatigue and weight loss. HENT: Negative for congestion, ear pain, nosebleeds, sinus pain and sore throat. Eyes: Negative for pain. Respiratory: Positive for shortness of breath. Negative for cough and wheezing. Cardiovascular: Positive for chest pain and palpitations. Negative for leg swelling. Gastrointestinal: Negative for abdominal pain, blood in stool and melena. Hiatal hernia plans to follow-up with GI Genitourinary: Negative for hematuria. Musculoskeletal: Positive for back pain. Negative for falls. Neurological: Positive for dizziness (Recent syncopal episode). Negative for tingling, sensory change, speech change, focal weakness, loss of consciousness, weakness and headaches. Endo/Heme/Allergies: Does not bruise/bleed easily. Psychiatric/Behavioral: Negative for depression, memory loss and suicidal ideas. The patient is not nervous/anxious and does not have insomnia. Physical Examination: Vitals:BP 156/77 Pulse 65 Ht 5' 0 (1.52m) Wt 175 lb (79.4kg) SpO2 95% BMI 34.18 kg/(m^2). Last 2 Encounter Wt Readings: Date: Wt: 12/27/2022 178 lb 6.4 oz (80.9 kg) 11/28/2022 178 lb 12.8 oz (81.1 kg) Physical Exam HENT: Head: Normocephalic. Eyes: Pupils: Pupils are equal, round, and reactive to light. Cardiovascular: Rate and Rhythm: Normal rate and regular rhythm. Pulses: Radial pulses are 2+ on the right side and 2+ on the left side. Dorsalis pedis pulses are 2+ on the right side and 2+ on the left side. Heart sounds: Normal heart sounds, S1 normal and S2 normal. Pulmonary: Effort: Pulmonary effort is normal. No accessory muscle usage or respiratory distress. Breath sounds: Normal breath sounds. Abdominal: General: Bowel sounds are normal. Palpations: Abdomen is soft. Musculoskeletal: General: Normal range of motion. Cervical back: Normal range of motion. Right lower leg: No edema. Left lower leg: No edema. Skin: General: Skin is warm and dry. Neurological: Mental Status: She is alert and oriented to person, place, and time. Gait: Gait is intact. Psychiatric: Mood and Affect: Affect normal. Cognition and Memory: Memory normal. Judgment: Judgment normal. Most Recent Cardiac Testing Echocardiogram 01/24/2022 CONCLUSIONS: - Exam indication: Palpitations - The left ventricle is small. There is mild concentric left ventricular hypertrophy. Left ventricular systolic function is hyperdynamic. EF = 75 5% (visual est.) Grade I left ventricular diastolic dysfunction. - The right ventricle is normal in size. Right ventricular systolic function is normal. - The left atrial cavity is mildly dilated. - Mild aortic regurgitation. - Exam was compared with the prior echocardiographic exam performed on 04/03/2019, no significant change. Monitor January 2022 Preliminary Findings Final Interpretation Patient had a min HR of 51 bpm, max HR of 190 bpm, and avg HR of 72 bpm. Predominant underlying rhythm was Sinus Rhythm. 17 Supraventricular Tachycardia runs occurred, the run with the fastest interval lasting 4 beats with a max rate of 190 bpm, the longest lasting 7 beats with an avg rate of 103 bpm. Supraventricular Tachycardia was detected within +/- 45 seconds of symptomatic patient event(s). Isolated SVEs were rare (<1.0%), SVE Couplets were rare (<1.0%), and SVE Triplets were rare (<1.0%). Isolated VEs were rare (<1.0%), and no VE Couplets or VE Triplets were present. Carotid ultrasound 03/24/2021 RIGHT SIDE Internal carotid artery: 0-19% stenosis. Vertebral artery: Patent and antegrade flow noted. LEFT SIDE Internal carotid artery: 0-19% stenosis. Vertebral artery: Patent and antegrade flow noted. Assessment and Plan: Chest pain -Chronic and atypical for ischemic heart disease -Could be due to microvascular heart disease but Imdur has not improved chest discomfort -normal coronaries on left heart catheterization 2015 -Consider noncardiac causes Syncope -Recent syncopal episode with ER evaluation -Ordered monitor and echocardiogram We could also consider a tilt table test should she have ongoing episodes. She has had a carotid ultrasound in March 2021 without any significant stenosis noted. SVT /Palpitations -SVT noted on monitor in the past patient experiences occasional palpitations -Repeat echocardiogram due to recent syncope pending -Repeat monitor pending due to recent syncope -Continue labetalol -recommended conservative measures: stay hydrated, limit stimulants/caffeine, limit stress Hypertension -156/77. Has had better control at home with addition of Imdur. Not able to tolerate an increased dose of Norvasc due to side effect of lower extremity swelling -Continue current medication(s) -Encouraged dietary sodium restriction/DASH diet -Recommended regular aerobic exercise. -Recommend home blood pressure monitoring, to bring results in on next visit -Discussed need and benefit for weight loss. -Goal of BP <130/80 Hyperlipidemia -lipid panel September 2022 LDL 117 -Not currently on statin therapy -encouraged routine activity and heart healthy diet for risk factor modification Obesity -lifestyle modifications -encouraged a heart healthy diet, routine exercise and weight loss Dyspnea on exertion -Has had a normal cardiac work-up in the past -Pulmonary referral Cardiac clearance -Low cardiac risk for her to have cataract surgery with moderate sedation Follow-up with Dr. Benavides in 6 months at our [place] location. Patient to call with any issues or concerns prior to then. Electronically signed by Zoya Almaraz APRN.CNP on February 07, 2023, 12:55 PM documented in this encounter [facility] 02-06-2023 Miscellaneous Notes PDMP website checked and validated. All prescriptions have been APPROPRIATELY filled. No suspicious activity was identified. 02/06/2023 by Elisa Starr MD SANJEEV 12/27/22 NOV 05/29/23 Pooja Sommer MA Patient has been identified by name and date of : Yes Requested Prescriptions Pending Prescriptions Disp Refills gabapentin (NEURONTIN) 300 mg capsule 180 capsule 3 Sig: Take 1 capsule by mouth twice daily as needed for up to 90 days. RX INSTRUCTIONS: Patient aware RX escripted to mail away pharmacy. No need to notify patient. Ly Christian Pss documented in this encounter [facility] 02-06-2023 Miscellaneous Notes Clearance form received from [facility]. Scanned to [facility] for appointment on 02/07/23 with LUIS MIGUEL Miller, RN documented in this encounter [facility] 02-03-2023 Miscellaneous Notes Pharmacy verified in [facility] Patient has been identified by name and date of : Yes Patient aware RX will be sent to pharmacy. No need to notify patient. Patient phones for refill(s): Requested Prescriptions Pending Prescriptions Disp Refills amLODIPine (NORVASC) 5 mg tablet 90 tablet 1 Sig: Take 1 tablet by mouth once daily. Date of last office visit : 12/27/2022 Date of next office visit : 05/29/2023 Last 2 Encounter Wt Readings: Date: Wt: 12/27/2022 80.9 kg (178 lb 6.4 oz) 11/28/2022 81.1 kg (178 lb 12.8 oz) Please advise. Cyndi Watson Pss documented in this encounter [facility] 01-30-2023 Miscellaneous Notes Spoke with pt. States she is able to come to for follow up. AG, please reach out to pt. to schedule ED follow up with Dr. Benavides. Thank you! Vickie Vergara RN Spoke to pt. Says she went to [facility] ER for syncope yesterday. Was advised to follow up with technical publications writer in the next few weeks. This nurse asked her if she could drive to [place] for follow up. Pt is going to check with her daughter (about ride to ) and call us back. Vickie Vergara RN Patient was seen in ED after being transported by ambulance for syncope. She was referred back to her technical publications writer to discuss adjusting her medications. Please notify the patient of when she can be seen by cardiology physicians at the [facility] within the next two weeks. documented in this encounter [facility] 01-30-2023 Miscellaneous Notes Patient called requesting the following refill Refill(s) Requested: Requested Prescriptions Pending Prescriptions Disp Refills isosorbide mononitrate ER (IMDUR) 30 mg 24 hr tablet 30 tablet 3 Sig: Take 1 tablet by mouth once daily. ALLERGIES Allergen Reactions Codeine Intolerance Chest pain Aceon [Perindopril * Rash, Cough Beta Blockers [Othe* Cough dry hacking cough Hctz [Other] Rash Imdur [Isosorbide] Other: See Comments headaches Lipitor [Atorvastat* Other: See Comments muscle cramps Lisinopril Cough dry hacking cough Spironolactone Other: See Comments headache (home) [phone] (cell) Last Office Visit Date: 05/08/2017 Last [facility] Health Visit: Visit date not found Future Appointment: Visit date not found The patients preferred pharmacy has been captured for this encounter? yes Request is for script(s) to be escript to pharmacy. Sheri Castañeda LPN documented in this encounter [facility] 01-27-2023 Miscellaneous Notes [facility] Provider Action/FYI: Patient calling in, states she was left this number on her voicemail couple of days ago, thought she was calling back her PCC. Educated patient on H@H and that it is for primary care, not for specialties. Patient voiced appreciation for speaking to her. Hello, you've reached [facility], my name is Beatriz Ferrer RN, I'm a registered nurse, and we are on a recorded line. Patient identified by name and date of Spoke with patient Verify that the patient is a [facility] patient: Yes Are you having any symptoms today? No - What is the reason for call? General Questions/Other Need Call Disposition: Managed by H@H RN Thank you for calling [facility]. documented in this encounter [facility] 01-26-2023 Discharge summary Note Date/Time January 26, 2023 1:58pm [facility] Medical Records Department [address] [place] [address] Emergency Department Summary 01/26/23 MR#: [id number] Acct: [id number] Name: TASHIA FERNANDEZ Rep #:[id number] : 1950 72 From: Mino Morin DO PCP: Dr. Evangelist Starr MD Status :REG ER Location: ED HPI History of Present Illness Chief Complaint: Weakness Narrative Narrative: 72-year-old female presents with episodes of syncope. She states that yesterdayshe started to get a scratchy throat. She notes that she has had a little bit of a cough. Today she started having diarrhea. She states she got up off the couch to try to walk to the bathroom and became very lightheaded and nauseous. She believes she vomited on the floor. She did make it to the bathroom. Her daughter tried to help her up and she fainted again. She had an episode of diarrhea. She denies chest pain or shortness of breath. He does admit to lightheadedness. Patient states he has a history of hypokalemia and hyponatremia and she was like this 1 other time. She also has a history of syncope in the past. No history of fevers or chills. [facility] Medical History Abdominal pain CKD (chronic kidney disease), stage III Diverticulitis Diverticulosis Essential hypertension Former tobacco use GERD (gastroesophageal reflux disease) Hiatal hernia Hyperlipidemia Hypokalemia Hyponatremia Hypothyroidism Obesity Pancreatitis Home Medications aspirin 81 mg chewable tablet 81 mg PO DAILY@0800 HEALTH MAINTENANCE 01/01/14 [History Last Taken 07/14/20 17:30] levothyroxine 88 mcg tablet 88 mcg PO DAILY HYPOTHYROIDISM 01/01/14 [History Last Taken 07/14/20 07:30] losartan 100 mg tablet 100 mg PO DAILY BLOOD PRESSURE 01/01/14 [History Last Taken 07/14/20 08:00] amlodipine 5 mg tablet 5 mg PO QHS BLOOD PRESSURE 01/25/18 [History Last Taken 07/14/20 17:30] labetalol 100 mg tablet 200 mg PO BID HEART 01/25/18 [History Last Taken 07/14/20 17:30] pantoprazole 40 mg tablet,delayed release 40 mg PO DAILY GERD 01/25/18 [History Last Taken 07/14/20 08:00] biotin 1 mg capsule 1 mg PO DAILY supplement 07/06/18 [History Last Taken 07/14/20 08:00] meclizine 25 mg tablet 25 mg PO DAILY PRN Vertigo 07/01/19 [History Last Taken 07/12/20 03:00] gabapentin 300 mg capsule 300 mg PO QHS NEUROPATHY 09/04/19 [History Last Taken 07/13/20 22:00] potassium chloride 20 mEq tablet,extended release 20 meq PO BID 06/14/21 [History Last Taken Unknown] meclizine 25 mg tablet 25 mg PO TID PRN dizziness #30 tabs 12/26/21 [Rx Last Taken Unknown] amlodipine 2.5 mg tablet 2.5 mg PO DAILY 01/26/23 [History Last Taken Unknown] isosorbide mononitrate 30 mg tablet,extended release 24 hr 30 mg PO DAILY 01/26/23 [History Last Taken Unknown] Allergy/AdvReac Type Severity Reaction Status Date / Time hydrochlorothiazide Allergy Intermediate rash Verified 01/26/23 12:42 lisinopril AdvReac Intermediate cough Verified 01/26/23 12:42 atorvastatin [From Lipitor] AdvReac Unknown unknown Verified 01/26/23 12:42 spironolactone AdvReac Unknown unknown Verified 01/26/23 12:42 Beta-Blockers AdvReac cough Verified 01/26/23 12:42 (Beta-Adrenergic Bloc codeine AdvReac Intolerance Verified 01/26/23 12:42 perindopril [From Aceon] AdvReac rash,cough Verified 01/26/23 12:42 Family History Mother Diabetes Heart disease Hypertension CVA (cerebral vascular accident) Sister Hypertension Heart disease Brother Heart disease Hypertension Surgical History History of carpal tunnel release of both wrists History of cholecystectomy History of colonoscopy (11/2018) History of left heart catheterization (2015) History of right and left heart catheterization (08/16/19) Hx of cholecystectomy Hx of esophagogastroduodenoscopy Hx of eye surgery Hx of repair of right rotator cuff Hx of tubal ligation Social History Smoking Status: Former smoker alcohol intake: current alcohol intake frequency: holidays/special occasions only substance use type: does not use caffeine: No what type of physical activity do you participate in: none frequency: does not exercise ROS ROS ED Constitutional Constitutional ED: Denies chills or fever(s) Eyes Eyes: Denies change in vision or diplopia ENT ENT ED: Denies rhinorrhea or sore throat Cardiovascular Cardiovascular: Denies chest pain Respiratory/Chest Respiratory/Chest: Reports cough; Denies dyspnea or dyspnea on exertion Gastrointestinal Gastrointestinal: Reports diarrhea, nausea and vomiting Genitourinary Genitourinary ED: Denies dysuria or hematuria Musculoskeletal Musculoskeletal: Denies arthralgias or back pain Integumentary Denies abscess Neurologic Neurologic: Reports headache(s) EXAM Physical Exam Const Vital Signs: 01/26/23 12:43 01/26/23 12:58 01/26/23 13:40 Temperature 97.4 F L Temperature Source Temporal Pulse Rate 61 Pulse Rate [Lying] Pulse Rate [Sitting (for 1 minute prior to obtaining)] Pulse Rate [Standing (for 1 minute prior to obtaining)] Respiratory Rate 18 Respiratory Pattern Normal Blood Pressure 138/61 H Blood Pressure [Lying] Blood Pressure [Sitting (for 1 minute prior to obtaining)] Blood Pressure [Standing (for 1 minute prior to obtaining)] Blood Pressure Mean 86 Blood Pressure Mean [Lying] Blood Pressure Mean [Sitting (for 1 minute prior to obtaining)] Blood Pressure Mean [Standing (for 1 minute prior to obtaining)] Pulse Ox 100 Oxygen Delivery Method Room Air Room Air 01/26/23 14:27 01/26/23 15:00 01/26/23 16:00 Temperature Temperature Source Pulse Rate 68 64 Pulse Rate [Lying] 70 Pulse Rate [Sitting (for 1 minute prior to obtaining)] 70 Pulse Rate [Standing (for 1 minute prior to obtaining)] 70 Respiratory Rate 16 13 Respiratory Pattern Blood Pressure 119/56 L 128/54 H Blood Pressure [Lying] 125/59 H Blood Pressure [Sitting (for 1 minute prior to obtaining)] 114/61 Blood Pressure [Standing (for 1 minute prior to obtaining)] 128/68 H Blood Pressure Mean 77 78 Blood Pressure Mean [Lying] 81 Blood Pressure Mean [Sitting (for 1 minute prior to obtaining)] 78 Blood Pressure Mean [Standing (for 1 minute prior to obtaining)] 88 Pulse Ox 99 94 Oxygen Delivery Method Room Air Room Air Positive well nourished General Appearance ED: NAD HEENT Reports moist mucous membranes Eyes PERRL and EOMs intact bilaterally General Eye ED: Yes pale conjunctiva and scleral icterus MDM MDM MDM Narrative Medical decision making narrative: 72-year-old female presenting with 2 episodes of near syncope. This happened after she was trying to go to the bathroom for nausea and having diarrhea at sametime. Apparently she fainted and then when she felt up again she fainted again. This started after she had a slight scratchy throat and a cough. Patient also has history of hyponatremia and hypokalemia differential at this point includes but is not limited to gastritis, gastroenteritis ACS, syncope, hyponatremia, hypokalemia, viral syndrome, pneumonia. CBC to assess white blood cell count, hemoglobin, platelets, differential. BMP to assess renal function, electrolytes, glucose and anion gap. High-sensitivity troponin, EKG and chest x-ray as well. EKG on my interpretation shows a normal sinus rhythm with a ventricular rate of 58 bpm without sign of ischemic change or dysrhythmia. Chest x-ray my interpretation is no acute process. Radiology interprets this and agrees. CBC unremarkable. BMP shows an increase in creatinine at 1.30 and GFR of 43. Glucose is elevated at 185 without anion gap. patient given 2 L of IV fluids. Repeat high-sensitivity troponin is 5 to 2 hours. Patient had negative orthostatic vital signs and is walked to the bathroom multiple times with stable gait. No more episodes of nausea or syncope. At this point I feel she is stable to be discharged home. Return precautions were discussed. Impression: 1. Syncope 2. NURA 3. Nausea/vomiting 4. Diet Lab Data Attestation: I reviewed the patient's lab results. Labs: Laboratory Results - last 24 hr 01/26/23 01/26/23 01/26/23 13:25 13:25 15:12 WBC 9.9 RBC 4.22 Hgb 12.0 Hct 35.6 L MCV 84.4 MCH 28.4 MCHC 33.7 RDW Std Deviation 41.4 RDW Coeff of Cami 13.5 Plt Count 284 MPV 9.2 Immature Gran % (Auto) 0.300 Neut % (Auto) 75.1 H Lymph % (Auto) 12.7 L [place] % (Auto) 7.5 Eos % (Auto) 3.3 Baso % (Auto) 1.1 H Absolute Neuts (auto) 7.5 Absolute Lymphs (auto) 1.26 Nucleated RBC % 0 Sodium 135 L Potassium 3.9 Chloride 101 Carbon Dioxide 26.0 Anion Gap 8 BUN 20 H Creatinine 1.30 H Estim Creat Clear Calc 27.27 Est GFR (MDRD) Af Amer 51 L Est GFR (MDRD) Non-Af 43 L BUN/Creatinine Ratio 15.4 Glucose 185 H Calcium 9.3 Troponin I High Sens 5 5 Radiography Diagnostic Testing: Clinical Impression(s) from Imaging Studies Chest X-Ray 01/26/23 13:45 IMPRESSION: Hyperinflation. The lungs are clear. Hiatal hernia. Electronically Signed: Weston Salazar MD at 14:02 EDT , Discharge Plan Triage Chief Complaint: Weakness ED Provider: Mino Morin Dx/Rx/DC Orders Instructions: ED Dizziness or Syncope ... Prescriptions: No Action meclizine 25 mg tablet 25 mg PO DAILY PRN (Reason: Vertigo) levothyroxine 88 MCG tablet 88 mcg PO DAILY aspirin 81 MG tablet,chewable 81 mg PO DAILY@0800 losartan 100 MG tablet 100 mg PO DAILY gabapentin 300 mg capsule 300 mg PO QHS amlodipine 5 MG tablet 5 mg PO QHS Label Comments: labetalol 100 MG tablet 200 mg PO BID Label Comments: pantoprazole 40 MG tablet 40 mg PO DAILY biotin 1 MG capsule 1 mg PO DAILY potassium chloride 20 mEq Tablet Extended Release 20 meq PO BID meclizine 25 mg tablet 25 mg PO TID PRN (Reason: dizziness) Qty: 30 0RF amlodipine 2.5 mg tablet 2.5 mg PO DAILY isosorbide mononitrate 30 mg Tablet Extended Release 24 Hr 30 mg PO DAILY Primary Care Provider: Evangelist Starr Referrals: Evangelist Starr MD [Primary Care Provider] - Disposition Disposition: Home, Self Care What to do if you have Problems For any increased pain, shortness of breath, bleeding, nausea or vomiting, chestpain, or any unexpected problems, contact your Primary Care Provider. Call [facility] ([phone]) or report to the closest Emergency Room. Call 911 if necessary. 01/26/23 1710 <Electronically signed by Mino Mikel DO> Cosigner Signature (if applicable): CC: Dr. Evangelist Starr MD ~ Signed [facility] Work Phone: 1(625) 913-752803-22-2023 History of Present illness Narrative* Sharifa Stewart RN - 01/25/2023 3:02 PM EDT [facility] Provider Action/FYI: Made call #2. NA/Left VM. Left H@H info and number. Contact made with patient: No - Left message Helceline my name is Sharifa Stewart RN your Efficiency Engineer from the [facility] I am calling todayfor your bi-weekly check in. I am sorry I missed your call. I will reach out to you again tomorrow.(if the third call I will reach out to you again next week) Enter next patient outreach date for the following business day using the [facility] Outreach. End outreach.[facility] Provider Action/FYI: Made call#1. NA/left vm. Left H@H info Contact made with patient: No - Left message Helceline my name is Sharifa Stewart RN your Efficiency Engineer from the [facility] I am calling todayfor your bi-weekly check in. I am sorry I missed your call. I will reach out to you again tomorrow.(if the third call I will reach out to you again next week) Enter next patient outreach date for the following business day using the Track [facility] Outreach. End outreach. [facility] Miscellaneous Notes* Telephone Encounter - Pooja Newton Pss - 01/18/2023 2:23 PM EDT Patient has been identified by name and date of : Yes Patient phones requesting refills as follows: Requested Prescriptions Pending Prescriptions Disp Refills labetalol (TRANDATE) 200 mg tablet 180 tablet 1 Sig: Take 1 tablet by mouth twice daily. SANJEEV-12/27/22 Labs-12/27/22 NOV-05/29/23 med filled 08/08/22 RX INSTRUCTIONS: Patient aware RX escripted to mail away pharmacy. No need to notify patient. Pooja Newton Pss [facility] History of Present illness Narrative* Sharifa Stewart RN - 12/27/2022 1:05 PM EST [facility] Escalation Follow Up FYI: Spoke to patient. Pt stated she had a PCP visit today with an EKG, chest x-ray, and lab work. Pt waiting on results. EKG was fine, she stated. Pt denies any further needs, questions, or concerns. Pt appreciative for call. END OUTREACH. Contact made with patient: Patient identified by name and Discussed care with patient Patient Escalated to Virtualist on: not escalated to virtualist. Escalated to PCP. Reason for Escalation: chest pain at night with racing heart. Virtualist Intervention: PCP ordered imaging and labs after office visit. Disposition: Patient stable no further interventions [facility] History of Present illness Narrative* Elisa Starr MD - 12/27/2022 10:25 AM EST Chief Complaint Patient presents with: Follow Up: Patient reports fullness in legs and in chest, like fluid when I used to take Lasix. Patient reported funny feeling Monday night and lying on left side with fluttering and rapid HR. Patient turned onto right side and it subsided. Otherwise only c/o of chest issue when out in the cold also a funny feeling. HPI Tashia Fernandez is a 72 year old female who presents here today for Above Complaints. Patient states that 2 nights ago when she went to bed she felt a fluttering her chest which lasted about 5-6 minutes until she rolled onto her right side. Did not have chest pain or SOB with the palpitations. Taking medications as prescribed as without side effects. Denies orthopnea, leg swelling unless she is travelling. Weight up 6-7 lbs in the last 3 months. Echo completed 01/2022 with EF 75%, grade 1 diastolic dysfunction. Mild aortic regurgitation, left atria mildly dilated. No change compared to 2019. 2 week Zio patch from 01/2022 showed 17 runs of SVT and labetalol dosage was increased. Last met with cardiologyon 11/14 where they added on Imdur for exertional angina and recommended she follow up yearly. States that her Imdur has helped significantly with her chest pain and HTN. Has not called her technical publications writer about these new symptoms. Past medical history, appointments, medications, allergies reviewed. Previous Medical History PAST MEDICAL HISTORY Diagnosis Date Contact dermatitis and other eczema Degenerative arthritis of knee 05/24/2011 Delayed gastric emptying 07/24/2012 Diarrhea Diverticulitis Diverticulosis of colon (without mention of hemorrhage) Diverticulosis Dysphagia, unspecified 08/29/2017 Elevated alkaline phosphatase level 07/12/2018 Essential hypertension, benign Hyperlipidemia Hypokalemia 09/25/2012 Impaired fasting glucose 11/19/2015 Inadequate pelvic muscles 01/17/2012 Lumbar disc disease with radiculopathy 09/01/2016 Lung nodule < 6cm on CT 10/15/2018 10/07/18: incidental 4.5 mm nodule RML thyrotoxicosis Nonrheumatic mitral (valve) insufficiency Other osteoporosis 12/21/2006 Paroxysmal SVT (supraventricular tachycardia) (HCC) Personal history of colonic polyps Colon polyps POLYP STOMACH 07/13/2007 Stage 3a chronic kidney disease (HCC) 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--surgery not needed (2016) Tethering of spinal cord (HCC) 2014 Trigeminal neuralgia 10/11/2011 Trochanteric bursitis of left hip 07/24/2012 Unspecified hemorrhoids without mention of complication Hemorrhoids Previous Surgical History PAST SURGICAL HISTORY Procedure Laterality Date COLONOSCOPY FLX DX W/COLLJ SPEC WHEN PFRMD 12/2018 Colonoscopy COLONOSCOPY FLX DX W/COLLJ SPEC WHEN PFRMD 07/13/2007 Lax colon COLONOSCOPY FLX DX W/COLLJ SPEC WHEN PFRMD 03/26/2014 Colonoscopy COLONOSCOPY FLX DX W/COLLJ SPEC WHEN PFRMD 12/2018 [id number] 10 years COLONOSCOPY GEN ANES 04/28/2021 DECOMPRESSION PLANTAR DIGITAL NERVE 2000 heel spur/ plantar fasciitis repair Rt EGD 06/02/2021 EGD TRANSORAL BIOPSY SINGLE/MULTIPLE 07/13/2007 Gastritis, fundic gland polyps ESOPHAGOGASTRODUODENOSCOPY TRANSORAL DIAGNOSTIC 03/26/2014 EGD LAPAROSCOPY SURG CHOLECYSTECTOMY Cholecystectomy, lap LIG/TRNSXJ FLP TUBE ABDL/VAG APPR UNI/BI NEUROPLASTY &/TRANSPOS MEDIAN NRV CARPAL TUNNE Carpal tunnel decomp bilateral OPEN REPAIR OF ROTATOR CUFF ACUTE 1992 Rotator cuff repair, right STRESS TEST,COMPLETE_*FL Family History FAMILY HISTORY Problem Relation Age of Onset Diabetes Mother Heart Mother Stroke Mother Hypertension Mother other (MVA) Father Hypertension Sister Heart Sister Hypertension Sister Heart Sister Hypertension Brother Heart Brother Hypertension Brother Cancer Brother Cancer Paternal Grandfather skin Breast Cancer Maternal Aunt Patient Allergies ALLERGIES Allergen Reactions Codeine Intolerance Chest pain Aceon [Perindopril * Rash, Cough Beta Blockers [Othe* Cough dry hacking cough Hctz [Other] Rash Imdur [Isosorbide] Other: See Comments headaches Lipitor [Atorvastat* Other: See Comments muscle cramps Lisinopril Cough dry hacking cough Spironolactone Other: See Comments headache Current Medications Current Outpatient Medications on File Prior to Visit Medication Sig polyethylene glycol 3350 (MIRALAX) 17 gram/dose powder Take 17 g by mouth once daily. Dissolve dosein 4 - 8 ounces of liquid and take as directed. amLODIPine (NORVASC) 2.5 mg tablet Take one tablet daily in addition to 5 mg to equal 7.5 mg daily losartan (COZAAR) 100 mg tablet Take 1 tablet by mouth once daily. amitriptyline (ELAVIL) 10 mg tablet Take 1 tablet by mouth daily at bedtime. potassium chloride ER (K-DUR, KLOR-CON) 20 mEq tablet Take 2 tablets by mouth twice daily. doxylamine succinate (SLEEP AID ORAL) Take by mouth daily at bedtime. isosorbide mononitrate ER (IMDUR) 30 mg 24 hr tablet Take 1 tablet by mouth once daily. labetalol (TRANDATE) 200 mg tablet Take 1 tablet by mouth twice daily. levothyroxine (SYNTHROID) 88 mcg tablet Take 1 tablet by mouth once daily. amLODIPine (NORVASC) 5 mg tablet Take 1 tablet by mouth once daily. pantoprazole DR (PROTONIX) 40 mg tablet TAKE 1 TABLET BY MOUTH ONCE DAILY. TAKE ON EMPTY STOMACH 1/2 HOUR BEFORE MEAL. calcium carbonate-Vit D3-minerals (CALTRATE) 600 mg calcium- 400 unit tab Take 2 tablets by mouth once daily. polyethylene glycol 3350 (MIRALAX, GLYCOLAX) 17 gram/dose powder Use as directed for Miralax / Gatorade Bowel Prep Kit (Patient taking differently: 17 g once daily. Use as directed for Miralax / Gatorade Bowel Prep Kit) meclizine (ANTIVERT) 25 mg tab Take 1 tablet by mouth three times daily as needed (vertigo). aspirin, enteric coated (ASPIRIN, ENTERIC COATED) 81 mg EC tablet Take 81 mg by mouth once daily. Lancets lancets Test blood sugar(s) 1 times daily. Dx: Prediabetes Insulin: No blood sugar diagnostic (BLOOD GLUCOSE TEST) test strip Test blood sugar(s) 1 times daily. Dx: Prediabetes Insulin: No gabapentin (NEURONTIN) 300 mg capsule Take 1 capsule by mouth twice daily as needed for up to 90 days. (Patient taking differently: Take 300 mg by mouth daily at bedtime.) Bifidobacterium infantis (ALIGN ORAL) Take by mouth once daily. (Patient not taking: Reported on 11/24/2021 ) ondansetron orally disintegrating (ZOFRAN ODT) 4 mg disintegrating tablet Take 1 tablet by mouth every 6 hours as needed for Nausea/Vomiting. 0.9 % sodium chloride (NACL 0.9%) 0.9% solp Infuse 500 ml IV over [address] Biotin 2,500 mcg cap Take 1 capsule by mouth once daily. Current Facility-Administered Medications on File Prior to Visit Medication perflutren lipid microspheres 1.3 mL in NaCl (PF) 0.9% 10 mL injection (DEFINITY) sodium chloride 0.9 % (flush) 10 mL (BD POSIFLUSH) Social History Social History Tobacco Use Smoking status: Former Packs/day: 0.10 Years: 1.00 Pack years: 0.10 Types: Cigarettes Smokeless tobacco: Never Tobacco comments: Smoked 1 year or less in 1980s. Spouse was smoker in home for 39 years. Father smoked in childhood home. Vaping Use Vaping Use: Never used Substance Use Topics Alcohol use: No Drug use: No Review of Symptoms REVIEW OF SYSTEMS See HPI EXAM: BP 124/72 Pulse 67 Resp 16 Wt 80.9 kg (178 lb 6.4 oz) SpO2 97% BMI 34.84 kg/m General Appearance: Well appearing, alert, in no acute distress, well-hydrated, well nourished.. Skin: Skin color, texture, turgor normal, no suspicious rashes or lesions. Lungs: Lungs clear to auscultation. No wheezing, rhonchi, rales.. Heart: RRR without murmur, gallop, or rubs. No ectopy. Abdomen: Normal abdominal exam, Abdomen soft, non-tender. Bowel sounds normal. No masses, organomegaly. Extremities: No deformities, edema, skin discoloration, clubbing or cyanosis. Good capillary refill. . Health Maintenance List DTAP,TDAP,TD(1 - Tdap) Never done SHINGRIX VACCINE(1 of 2) Never done ADVANCE DIRECTIVE DISCUSSION Never done DEPRESSION ASSESSMENT Never done COVID-19 VACCINE(5 - Booster for Pfizer series) due on 10/24/2023 HEMOGLOBIN/HEMATOCRIT due on 04/25/2023 LDL CHOLESTEROL due on 09/27/2023 SERUM CREATININE due on 09/27/2023 MAMMOGRAM due on 10/11/2023 ANNUAL PCP TEAM CHRONIC DISEASE VISIT due on 11/28/2023 BP CONTROLLED (<130/80) due on 11/28/2023 DIABETES SCREEN due on 09/27/2025 LIPID SCREEN due on 09/27/2027 COLORECTAL CANCER SCREENING due on 04/28/2031 BONE DENSITY Completed INFLUENZA Completed HEPATITIS C SCREENING Completed PNEUMOCOCCAL: 65+ Completed Data reviewed EKG: NSR at 62 bpm, Incomplete RBBB, borderline EKG ASSESSMENT/PLAN: 1. Chest pain, unspecified type - ICD9: 786.50, ICD10: R07.9 (primary diagnosis) EKG negative for ischemia today. With recurrent palpitations will repeat labs and obtain CXR for chest pain. Continue higher dose labetalol and imdur as prescribed. Avoid stimulants. Red flags for re-assessment reviewed with patient in detail. F/u with cardiology if symptoms persist. - ECG COMPLETE - COMP METABOLIC PANEL - CBC + DIFF - MAGNESIUM BLD - XR CHEST 2V FRONTAL/LAT - TSH BLD 2. Palpitations - ICD9: 785.1, ICD10: R00.2 See above. - COMP METABOLIC PANEL - CBC + DIFF - MAGNESIUM BLD - XR CHEST 2V FRONTAL/LAT - TSH BLD Elisa Starr MD documented in this encounterPremier [facility]20-[facility] History of Present illness Narrative* Elisa Starr MD - 12/26/2022 3:06 PM EST Reviewed. * Alyx Brand MA - 12/26/2022 1:35 PM EST POPULATION HEALTH NAVIGATION OUTREACH Action/FYI December 26, 2022 Spoke with patient. She has been scheduled with Elisa Starr MD tomorrow, 2, thank you Patient Identified by Name and : YES, via phone Outreach Outcome/Action Spoke to patient / parent / legal guardian: Patient scheduled Did you use a PCP flex slot to schedule this appointment? N/A Reason for Outreach [facility] Payer: Payor: HU[employer]NA MEDICARE / Plan: Adeptence / Product Type: HMO / Care Gap Reviewed:: Follow-up appointment Reminder: Reminder note to check Health Maintenance for items below Health Maintenance items due: DTAP,TDAP,TD(1 - Tdap) Never done SHINGRIX VACCINE(1 of 2) Never done ADVANCE DIRECTIVE DISCUSSION Never done DEPRESSION ASSESSMENT Never done Navigation Signature: Alyx Brand MA December 26, 2022 1:35 PM * Sharifa Stewart RN - 12/26/2022 11:49 AM EST INSIGHT CD TELEPHONIC OUTREACH FYI: Made call to patient. Pt states she is having urine retention. Pt states she used to be on lasix in the past for it. Pt states she went on trip to [facility] over the weekend and only made [address] to use bathroom. Pt states she feels what she describes as tightness in her legs. When asked if she thought it wasswelling, she stated no. She said it is a tightness. Pt also states she has a fullness around her heart. She states she has had this before and is related to the the fullness in her legs. The tightness and fullness has been happening for 3-4 weeks. Pt states last night she had chest pain on the left side when laying on her side as well as the feeling her heart was racing. Pt denies chest pain at this time. Pt takes her BP daily and states today it is 133/69 with a heart rate of 70. Pt states these are both normal readings for her. Pt states her exertional sob has not changed. It is still present, but is not new. Pt state she was scheduled for an appointment to see PCP 12/06, however pt states the office cancelled the appointment at 6:30 am that day and were to follow up with her to reschedule which she statesthey did not do. Now she has an appointment scheduled for 05/29. She states she needs one sooner than that. Offered to have virtualist contact patient. Pt declined. Advised patient if chest pain returns or has an increase in sob to go to the ED. Patient verbalizesunderstanding and is in agreement. This nurse is routing this note to the fire manager to get an appointment with PCP within the next 48 hours. This nurse is also routing this note to PCP as an FYI. Side note: Pt requesting program for losing weight as well. Pt denies any further needs, questions, concerns. END OUTREACH. Contact made with patient: Yes Patient identified by name and . Discussed care with patient It s nice talking to you again. As a reminder, this is our bi-weekly check-in where I will be asking you questions about your health. This will only take a few minutes of your time. Is this a good time? Yes Symptoms What Chronic Disease(s) does the patient have: CKD Do you check your blood pressures at home? Yes, Enter readings: 133/69 HR:70 Do you have new or worse shortness of breath with activity? No Do you feel like you are dehydrated for any reason, including not being able to eat or drink normally, or having less urine/much darker urine than normal for you? No Do you check your daily weight at home? No Are you having any other symptoms that your PCP needs to know about? Yes Symptoms: See progress note. Symptom Escalation LIDIA Education Ordered -: No The patient required an escalation for symptom(s)? Yes, Visit (Telehealth, Virtual, or In Office) with PCP within 48 hours - Routed to [facility] [[id number]] Medications Do you have any questions about taking your medication or which medications you should be on? No Do you need any medication refills at this time, including any of the medications you might take only when needed? No Social We would like to make sure you have what you need so that your basic needs are met- including your personal safety, food, housing, transportation and medications? Would you like to speak with a social work seam steamer to help give you support for any of these needs? No It can be normal to feel anxious or down during a time like this. Would you like to talk to a mental health professional about how you have been feeling? No Closing Thank you for taking the time to talk with me today. We want to work with you to ensure that we arekeeping your medical condition(s) well-controlled and to keep you healthy and out of the doctor's office or hospital. It s also not too late for me to sign you up for automated weekly questionnaires through [employer]. This is an easy way for us to stay connected each week. Are you interested? No, I understand. We can always sign you up in the future if you change your mind. Just as a reminder, will continue to call you every other week to check in on your health. Our calls should take 10-15 minutes or less. Remember, if you have concerns in between our calls, please call your PCP's office right away. Thank you. Enter next patient outreach date for two weeks on the same day of the week as today in the Track PtOutreach and End outreach. documented in this encounterPremier [facility]02-15-2023 Miscellaneous Notes* Telephone Encounter - Vangie Gonzalez LPN - 12/21/2022 9:30 AM EST SANJEEV 11/28/22 NOV 05/29/2023 * Telephone Encounter - Sharifa Jackson Pss - 12/21/2022 9:22 AM EST Patient has been identified by name and date of : Yes Requested Prescriptions Pending Prescriptions Disp Refills amLODIPine (NORVASC) 2.5 mg tablet 90 tablet 1 Sig: Take one tablet daily in addition to 5 mg to equal 7.5 mg daily RX INSTRUCTIONS: Patient aware RX escripted to mail away pharmacy. No need to notify patient. Sharifa Jackson Pss documented in this encounterPremier Health [facility]01-31-2023 Miscellaneous Notes* Telephone Encounter - Pooja Newton Pss - 12/06/2022 3:27 PM EST Patient has been identified by name and date of : Yes Requested Prescriptions Pending Prescriptions Disp Refills losartan (COZAAR) 100 mg tablet 90 tablet 3 Sig: Take 1 tablet by mouth once daily. Lancets lancets 100 Each 11 Sig: Test blood sugar(s) 1 times daily. Dx: Prediabetes Insulin: No blood sugar diagnostic (BLOOD GLUCOSE TEST) test strip 50 Strip 11 Sig: Test blood sugar(s) 1 times daily. Dx: Prediabetes Insulin: No RX INSTRUCTIONS: Patient aware RX escripted to mail away pharmacy. No need to notify patient. Pooja Newton Pss documented in this encounterPremier Health [facility]01-30-2023 Miscellaneous Notes* Telephone Encounter - Anusha Frey RN - 12/05/2022 1:25 PM EST Pt called and is notified of providers message and instructions. Pt voices understanding. Anusha Frey RN * Telephone Encounter - Elizabeth Og APRN.CNP - 12/05/2022 1:18 PM EST Please call patient and let her know medication should not be harmful with kidneys. Elizabeth Og APRN.CNP * Telephone Encounter - Elizabeth Og APRN.CNP - 12/05/2022 1:15 PM EST Please let patient know medication is safe to take. I have sent in refill. Elizabeth Og APRN.CONSTANTINO * Telephone Encounter - Laney Cronin RN - 12/05/2022 11:08 AM EST [facility] OUTREACH Provider Action/FYI: Patient has had a pain at the top of her head for the past three months. Has been seen for this twice and its not improving. Was started on Amitriptyline 10 mg, found it to be slightly helpful. Asking for a refill and an appointment to see PCP Enmanuel, you've reached [facility], my name is Laney Cronin RN, I'm a registered nurse, and we are on a recorded line. Patient identified by name and date of Spoke with patient Verify that the patient is a [facility] patient: Yes Are you having any symptoms today? No - What is the reason for call? Appointment Refill Call Disposition: Routed to Navigation and PCP for refill. Thank you for calling [facility]. If you develop any new symptoms, your condition worsens, then GO TO THE EMERGENCY ROOM OR CALL 911. If you have any questions, please call us back. documented in this encounterPremier Health [facility]01-30-2023 History of Present illness Narrative* Beatriz Ferrer RN - 12/05/2022 11:20 AM EST INSIGHT CDM TELEPHONIC OUTREACH Provider Action/FYI: Patient scheduled with pcp this week. Outreach deferred. Contact made with patient: No documented in this encounterPremier Health [facility]01-30-2023 History of Present illness Narrative* Jane Callahan - 12/05/2022 11:12 AM EST POPULATION HEALTH NAVIGATION OUTREACH Action/FYI [facility] Call. Received warm transfer from Nurse : Laney Cronin RN Patient needs : Needs to schedule an appointment with Primary Care Provider, continues to have headaches constantly all day long unless sleeping. Has been seen twice by Certified Nurse Practitioner and treated both times in the last 3 months. Headaches are not getting better or worse, they just linger thru the day on top of the head. Health Maintenance and Care Gaps reviewed: NA Scheduled appointment: tomorrow 12/06/2022 with Primary Care Provider at 9:20 AM Routed to PRIMARY CARE PROVIDER: NO Route to PCC as FYI NO. Encounter Closed. Patient Identified by Name and : YES, via phone Outreach Outcome/Action Spoke to patient / parent / legal guardian: Patient scheduled Did you use a PCP flex slot to schedule this appointment? No Reason for Outreach [facility] Payer: Payor: [employer] MEDICARE / Plan: Adeptence / Product Type: HMO / Care Gap Reviewed:: N/A Reminder: Reminder note to check Health Maintenance for items below Health Maintenance items due: DTAP,TDAP,TD(1 - Tdap) Never done SHINGRIX VACCINE(1 of 2) Never done ADVANCE DIRECTIVE DISCUSSION Never done DEPRESSION ASSESSMENT Never done Navigation Signature: Jane Callahan December 05, 2022 11:12 AM documented in this encounterPremier Health [facility]01-23-2023 History of Present illness Narrative* Beatriz Ferrer RN - 11/28/2022 11:32 AM EST INSIGHT CDM TELEPHONIC OUTREACH Provider Action/FYI: Patient seen in pcp office today, 11/28 Outreach deferred. Contact made with patient: No documented in this encounterPremier Health [facility]01-23-2023 History of Present illness Narrative* Elizabeth Og APRN.CONSTANTINO - 11/28/2022 10:11 AM EST 11/28/2022 Patient presents with: Blood Pressure: Follow up SUBJECTIVE: This is a 72 year old that is here today for Above Complaints. BP elevated at last office appointment. No medication changes made at that time. Recent follow-up with technical publications writer and Imdur was prescribed due to BP remained elevated. Taking and tolerating withoutside effects. Taking BP at home daily with the majority of readings less than 140/90. Denies visualchanges, dizziness, lightheadedness, slurred speech, facial drooping, SOB, dyspnea, chest pain, leg swelling or palpitations. Right lower thoracic and lumbar back with aching. Daughter has to rub down with some back cream which helps some. Uses heating pad at night. 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 Denies hx of back surgery, saddle anaesthesia, extremity numbness, tingling, weakness, dysuria, hematuria, urinary/bowel incontinence or inability. PAST MEDICAL HISTORY Diagnosis Date Contact dermatitis and other eczema Degenerative arthritis of knee 05/24/2011 Delayed gastric emptying 07/24/2012 Diarrhea Diverticulitis Diverticulosis of colon (without mention of hemorrhage) Diverticulosis Dysphagia, unspecified 08/29/2017 Elevated alkaline phosphatase level 07/12/2018 Essential hypertension, benign Hyperlipidemia Hypokalemia 09/25/2012 Impaired fasting glucose 11/19/2015 Inadequate pelvic muscles 01/17/2012 Lumbar disc disease with radiculopathy 09/01/2016 Lung nodule < 6cm on CT 10/15/2018 10/07/18: incidental 4.5 mm nodule RML thyrotoxicosis Nonrheumatic mitral (valve) insufficiency Other osteoporosis 12/21/2006 Paroxysmal SVT (supraventricular tachycardia) ([facility]) Personal history of colonic polyps Colon polyps POLYP STOMACH 07/13/2007 Stage 3a chronic kidney disease (HCC) 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 isosorbide mononitrate ER (IMDUR) 30 mg 24 hr tablet Take 1 tablet by mouth once daily. amitriptyline (ELAVIL) 10 mg tablet Take 1 tablet by mouth daily at bedtime. potassium chloride ER (K-DUR, KLOR-CON) 20 mEq tablet Take 2 tablets by mouth twice daily. gabapentin (NEURONTIN) 300 mg capsule Take 1 capsule by mouth twice daily as needed for up to 90 days. labetalol (TRANDATE) 200 mg tablet Take 1 tablet by mouth twice daily. levothyroxine (SYNTHROID) 88 mcg tablet Take 1 tablet by mouth once daily. amLODIPine (NORVASC) 2.5 mg tablet Take one tablet daily in addition to 5 mg to equal 7.5 mg daily amLODIPine (NORVASC) 5 mg tablet Take 1 tablet by mouth once daily. losartan (COZAAR) 100 mg tablet Take 1 tablet by mouth once daily. pantoprazole DR (PROTONIX) 40 mg tablet TAKE 1 TABLET BY MOUTH ONCE DAILY. TAKE ON EMPTY STOMACH 1/2 HOUR BEFORE MEAL. calcium carbonate-Vit D3-minerals (CALTRATE) 600 mg calcium- 400 unit tab Take 2 tablets by mouth once daily. blood sugar diagnostic (BLOOD GLUCOSE TEST) test strip Test blood sugar(s) 1 times daily. Dx: Prediabetes Insulin: No Lancets lancets Test blood sugar(s) 1 times daily. Dx: Prediabetes Insulin: No polyethylene glycol 3350 (MIRALAX, GLYCOLAX) 17 gram/dose powder Use as directed for Miralax / Gatorade Bowel Prep Kit (Patient taking differently: 17 g once daily. Use as directed for Miralax / Gatorade Bowel Prep Kit) Bifidobacterium infantis (ALIGN ORAL) Take by mouth once daily. (Patient not taking: Reported on 11/24/2021 ) ondansetron orally disintegrating (ZOFRAN ODT) 4 mg disintegrating tablet Take 1 tablet by mouth every 6 hours as needed for Nausea/Vomiting. 0.9 % sodium chloride (NACL 0.9%) 0.9% solp Infuse 500 ml IV over [address] meclizine (ANTIVERT) 25 mg tab Take 1 tablet by mouth three times daily as needed (vertigo). Biotin 2,500 mcg cap Take 1 capsule by mouth once daily. aspirin, enteric coated (ASPIRIN, ENTERIC COATED) 81 mg EC tablet Take 81 mg by mouth once daily. Current Facility-Administered Medications Medication Dose Route Frequency perflutren lipid microspheres 1.3 mL in NaCl (PF) 0.9% 10 mL injection (DEFINITY) INTRAVENOUS DIRECTED PRN sodium chloride 0.9 % (flush) 10 mL (BD POSIFLUSH) 10 mL INTRAVENOUS DIRECTED PRN Medications and allergies reviewed by this provider. SOCIAL HISTORY Social History Tobacco Use Smoking status: Former Packs/day: 0.10 Years: 1.00 Pack years: 0.10 Types: Cigarettes Smokeless tobacco: Never Tobacco comments: Smoked 1 year or less in 1980s. Spouse was smoker in home for 39 years. Father smoked in childhood home. Vaping Use Vaping Use: Never used Substance Use Topics Alcohol use: No Drug use: No REVIEW OF SYSTEMS All other reviewed and negative other than HPI. OBJECTIVE: BP 126/72 Pulse 74 Resp 16 Wt 81.1 kg (178 lb 12.8 oz) SpO2 97% BMI 34.92 kg/m . Vital signs reviewed by this provider. APPEARANCE Well appearing, alert, in no acute distress, well-hydrated, well nourished. EYES conjunctiva and sclera normal. HEART RRR with normal S1 and S2, no murmurs, no gallops, no JVD appreciated LUNG clear to auscultation BACK: Normal exam, no pain to palpation, good flexion and extension, negative SLR test EXTREMITIES Extremities normal, No deformities, No skin discoloration, and No edema NEURO Awake, alert and oriented x 3, Reflexes symmetrical, Normal gait, No involuntary motions., and negative findings: muscle tone normal, muscle strength normal SKIN Skin color, texture, turgor normal, no suspicious rashes or lesions to exposed skin Component Latest Ref Rng & Units 09/27/2022 Protein, Total 6.3 - 8.0 g/dL 7.3 Albumin 3.9 - 4.9 g/dL 4.3 Calcium 8.5 - 10.2 mg/dL 9.4 Bilirubin, Total 0.2 - 1.3 mg/dL 0.3 Alkaline Phosphatase 34 - 123 U/L 106 AST 13 - 35 U/L 22 ALT 7 - 38 U/L 16 Glucose 74 - 99 mg/dL 98 BUN 7 - 21 mg/dL 19 Creatinine 0.58 - 0.96 mg/dL 1.08 (H) Sodium 136 - 144 mmol/L 137 Potassium 3.7 - 5.1 mmol/L 4.3 Chloride 97 - 105 mmol/L 101 CO2 22 - 30 mmol/L 24 Anion Gap 9 - 18 mmol/L 12 eGFR >=60 mL/min/1.73m 54 (L) Total Cholesterol, Nonfasting <200 mg/dL 192 Triglycerides, Nonfasting <150 mg/dL 116 HDL Cholesterol, Nonfasting >39 mg/dL 52 LDL Cholesterol, Nonfasting <100 mg/dL 117 (H) Non HDL Cholesterol, Nonfasting <130 mg/dL 140 (H) VLDL Cholesterol, Nonfasting <30 mg/dL 23 Total Chol/HDL Ratio, Nonfasting <5.10 mg/dL 3.69 LDL/HDL Ratio, Nonfasting <2.54 mg/dL 2.25 Hemoglobin A1C 4.3 - 5.6 % 5.9 (H) Estimated Average Glucose mg/dL 123 DTAP,TDAP,TD(1 - Tdap) Never done SHINGRIX VACCINE(1 of 2) Never done BP CONTROLLED (<130/80) due on 03/23/2022 ADVANCE DIRECTIVE DISCUSSION Never done DEPRESSION ASSESSMENT Never done COVID-19 VACCINE(5 - Booster for Pfizer series) due on 10/24/2023 HEMOGLOBIN/HEMATOCRIT due on 04/25/2023 LDL CHOLESTEROL due on 09/27/2023 SERUM CREATININE due on 09/27/2023 MAMMOGRAM due on 10/11/2023 ANNUAL PCP TEAM CHRONIC DISEASE VISIT due on 10/24/2023 DIABETES SCREEN due on 09/27/2025 LIPID SCREEN due on 09/27/2027 COLORECTAL CANCER SCREENING due on 04/28/2031 BONE DENSITY Completed INFLUENZA Completed HEPATITIS C SCREENING Completed PNEUMOCOCCAL: 65+ Completed ASSESSMENT/PLAN: 1. Hypertension, unspecified type - ICD9: 401.9, ICD10: I10 (primary diagnosis) - good control - Continue current medication(s) - Encouraged dietary sodium restriction/DASH diet - Recommended regular aerobic exercise. - Recommend home blood pressure monitoring, to bring results in on next visit - Discussed need and benefit for weight loss. - Recheck in 6 months, sooner should new symptoms or problems arise. - Goal of BP <140/90 - Recommended no refined sugar, low refined starch, healthy oil intake (olive oil), healthy protein(fish) along the lines of the Mediterranean diet. 2. Tethered spinal cord (HCC) - ICD9: 742.59, ICD10: Q06.8 - may continue OTC treatments - no red flag symptoms or exam findings - red flag symptoms discussed, verbalizes understanding - PT referral offered. Patient declines - follow-up if symptoms worsening to ER with red flag symptoms 3. Paroxysmal SVT (supraventricular tachycardia) (HCC) - ICD9: 427.0, ICD10: I47.1 - stable - follow-up with cardiology as scheduled 4. Chronic kidney disease, stage 3a (HCC) - ICD9: 585.3, ICD10: N18.31 - stable - continue to avoid NSAID products, eat low salt diet and stay well hydrated 5. Right-sided back pain, unspecified back location, unspecified chronicity - ICD9: 724.5, ICD10: M54.9 Mechanical low back pain - no red flag symptoms or exam findings - red flag symptoms discussed, verbalizes understanding - Warm moist heat for 20 min three times a day - Patient given instructions use of medications as ordered, intermittent rest, back care exercise program, weight loss, improved posture, proper lifting techniques, intermittent use of heat, and avoiding sleeping on a heating pad - PT referral offered, patient declines - follow-up as needed, to ER with red flag symptoms Elizabeth Og APRN.CASH ACCOUNTING CLERK Prescription instructions reviewed with patient as applicable. Patient advised if symptoms do not improve or if symptoms worsen sooner, to contact their primary care physician. Potential red flag symptoms discussed with the patient. Reviewed appropriate action plan to take if red flag symptoms occur. Patient agreeable to treatment plan. I spent a total of 30 minutes on the date of the service which included preparing to see the patient, [id number] patient care, completing clinical documentation, obtaining and/or reviewing separately obtained history, performing a medically appropriate examination, and counseling and educating the patient/family/caregiver. documented in this encounterPremier Health [facility]01-09-2023 History of Present illness Narrative* Beatriz Ferrer RN - 11/14/2022 2:38 PM EST INSIGHT CD TELEPHONIC OUTREACH Provider Action/FYI: Patient seen by cardiology today. Outreach deferred. Contact made with patient: No documented in this encounterPremier Health Miami [facility]01-09-2023 History of Present illness Narrative* Jonna Benavides MD - 11/14/2022 10:21 AM EST Images from the original note were not included. Jonna Benavides MD Interventional Cardiology [address] [place] [address] Chief Complaint Patient presents with: New Patient HISTORY OF PRESENT ILLNESS: Ms. Fernandez is a 72 year old female seen in my office for assessment management prior history of hypertensive heart disease With angina and normal coronary artery likely small vessel coronary artery disease Patient is on good medical therapy She continues have exertional dyspnea and chest pain with extreme exertion But she able to carry on her usual activity with no limitation Blood pressure she noticed over the last couple few months is elevated systolic is 150 Cardiac Risk Factors age (male over 45, female over 55), hyperlipidemia, obesity, hypertension, family history of CAD PAST MEDICAL HISTORY Diagnosis Date Contact dermatitis and other eczema Degenerative arthritis of knee 05/24/2011 Delayed gastric emptying 07/24/2012 Diarrhea Diverticulitis Diverticulosis of colon (without mention of hemorrhage) Diverticulosis Dysphagia, unspecified 08/29/2017 Elevated alkaline phosphatase level 07/12/2018 Essential hypertension, benign Hyperlipidemia Hypokalemia 09/25/2012 Impaired fasting glucose 11/19/2015 Inadequate pelvic muscles 01/17/2012 Lumbar disc disease with radiculopathy 09/01/2016 Lung nodule < 6cm on CT 10/15/2018 10/07/18: incidental 4.5 mm nodule RML thyrotoxicosis Nonrheumatic mitral (valve) insufficiency Other osteoporosis 12/21/2006 Paroxysmal SVT (supraventricular tachycardia) (HCC) Personal history of colonic polyps Colon polyps POLYP STOMACH 07/13/2007 Stage 3a chronic kidney disease (HCC) 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--surgery not needed (2016) Tethering of spinal cord (HCC) 2014 Trigeminal neuralgia 10/11/2011 Trochanteric bursitis of left hip 07/24/2012 Unspecified hemorrhoids without mention of complication Hemorrhoids PAST SURGICAL HISTORY Procedure Laterality Date COLONOSCOPY FLX DX W/COLLJ SPEC WHEN PFRMD 12/2018 Colonoscopy COLONOSCOPY FLX DX W/COLLJ SPEC WHEN PFRMD 07/13/2007 Lax colon COLONOSCOPY FLX DX W/COLLJ SPEC WHEN PFRMD 03/26/2014 Colonoscopy COLONOSCOPY FLX DX W/COLLJ SPEC WHEN PFRMD 12/2018 [id number] 10 years COLONOSCOPY GEN ANES 04/28/2021 DECOMPRESSION PLANTAR DIGITAL NERVE 1999 heel spur/ plantar fasciitis repair Rt EGD 06/02/2021 EGD TRANSORAL BIOPSY SINGLE/MULTIPLE 07/13/2007 Gastritis, fundic gland polyps ESOPHAGOGASTRODUODENOSCOPY TRANSORAL DIAGNOSTIC 03/26/2014 EGD LAPAROSCOPY SURG CHOLECYSTECTOMY Cholecystectomy, lap LIG/TRNSXJ FLP TUBE ABDL/VAG APPR UNI/BI NEUROPLASTY &/TRANSPOS MEDIAN NRV CARPAL TUNNE Carpal tunnel decomp bilateral OPEN REPAIR OF ROTATOR CUFF ACUTE 1991 Rotator cuff repair, right STRESS TEST,COMPLETE_*FL FAMILY HISTORY Problem Relation Age of Onset Diabetes Mother Heart Mother Stroke Mother Hypertension Mother other (MVA) Father Hypertension Sister Heart Sister Hypertension Sister Heart Sister Hypertension Brother Heart Brother Hypertension Brother Cancer Brother Cancer Paternal Grandfather skin Breast Cancer Maternal Aunt Social History Tobacco Use Smoking status: Former Packs/day: 0.10 Years: 1.00 Pack years: 0.10 Types: Cigarettes Smokeless tobacco: Never Tobacco comments: Smoked 1 year or less in 1980s. Spouse was smoker in home for 39 years. Father smoked in childhood home. Vaping Use Vaping Use: Never used Substance Use Topics Alcohol use: No Drug use: No ALLERGIES Allergen Reactions Codeine Intolerance Chest pain Aceon [Perindopril * Rash, Cough Beta Blockers [Othe* Cough dry hacking cough Hctz [Other] Rash Imdur [Isosorbide] Other: See Comments headaches Lipitor [Atorvastat* Other: See Comments muscle cramps Lisinopril Cough dry hacking cough Spironolactone Other: See Comments headache Medications: Current Outpatient Medications Medication Sig Dispense Refill doxylamine succinate (SLEEP AID ORAL) Take by mouth daily at bedtime. amitriptyline (ELAVIL) 10 mg tablet Take 1 tablet by mouth daily at bedtime. 30 tablet 0 potassium chloride ER (K-DUR, KLOR-CON) 20 mEq tablet Take 2 tablets by mouth twice daily. 180 tablet 1 gabapentin (NEURONTIN) 300 mg capsule Take 1 capsule by mouth twice daily as needed for up to 90 days. 180 capsule 0 labetalol (TRANDATE) 200 mg tablet Take 1 tablet by mouth twice daily. 180 tablet 1 levothyroxine (SYNTHROID) 88 mcg tablet Take 1 tablet by mouth once daily. 90 tablet 3 amLODIPine (NORVASC) 2.5 mg tablet Take one tablet daily in addition to 5 mg to equal 7.5 mg daily 90 tablet 1 amLODIPine (NORVASC) 5 mg tablet Take 1 tablet by mouth once daily. 90 tablet 1 losartan (COZAAR) 100 mg tablet Take 1 tablet by mouth once daily. [address] (PROTONIX) 40 mg tablet TAKE 1 TABLET BY MOUTH ONCE DAILY. TAKE ON EMPTY STOMACH 1/2 HOUR BEFORE MEAL. 90 tablet 3 calcium carbonate-Vit D3-minerals (CALTRATE) 600 mg calcium- 400 unit tab Take 2 tablets by mouth once daily. blood sugar diagnostic (BLOOD GLUCOSE TEST) test strip Test blood sugar(s) 1 times daily. Dx: Prediabetes Insulin: No 50 Strip 11 Lancets lancets Test blood sugar(s) 1 times daily. Dx: Prediabetes Insulin: No 100 Each 11 polyethylene glycol 3350 (MIRALAX, GLYCOLAX) 17 gram/dose powder Use as directed for Miralax / Gatorade Bowel Prep Kit (Patient taking differently: 17 g once daily. Use as directed for Miralax / Gatorade Bowel Prep Kit) 238 g 0 ondansetron orally disintegrating (ZOFRAN ODT) 4 mg disintegrating tablet Take 1 tablet by mouth every 6 hours as needed for Nausea/Vomiting. 20 tablet 1 meclizine (ANTIVERT) 25 mg tab Take 1 tablet by mouth three times daily as needed (vertigo). 30 tablet 1 Biotin 2,500 mcg cap Take 1 capsule by mouth once daily. aspirin, enteric coated (ASPIRIN, ENTERIC COATED) 81 mg EC tablet Take 81 mg by mouth once daily. isosorbide mononitrate ER (IMDUR) 30 mg 24 hr tablet Take 1 tablet by mouth once daily. 30 tablet 3 Bifidobacterium infantis (ALIGN ORAL) Take by mouth once daily. (Patient not taking: Reported on 11/24/2021 ) 0.9 % sodium chloride (NACL 0.9%) 0.9% solp Infuse 500 ml IV over [address] 500 mL 0 Current Facility-Administered Medications Medication Dose Route Frequency Provider Last Rate Last Admin perflutren lipid microspheres 1.3 mL in NaCl (PF) 0.9% 10 mL injection (DEFINITY) INTRAVENOUS DIRECTED PRN Elisa Starr MD sodium chloride 0.9 % (flush) 10 mL (BD POSIFLUSH) 10 mL INTRAVENOUS DIRECTED PRN Elisa Starr MD Review of Systems Constitutional: Negative for chills, diaphoresis, fever, malaise/fatigue and weight loss. HENT: Negative for congestion, ear discharge, ear pain, hearing loss, nosebleeds, sinus pain, sore throat and tinnitus. Eyes: Negative for blurred vision, double vision, photophobia, pain, discharge and redness. Respiratory: Negative for cough, hemoptysis, sputum production, shortness of breath, wheezing and stridor. Cardiovascular: Negative for chest pain, palpitations, orthopnea, claudication, leg swelling and PND. Gastrointestinal: Negative for abdominal pain, blood in stool, constipation, diarrhea, heartburn, melena, nausea and vomiting. Genitourinary: Negative for dysuria, flank pain, frequency, hematuria and urgency. Musculoskeletal: Negative for back pain, falls, joint pain, myalgias and neck pain. Skin: Negative for itching and rash. Neurological: Negative for dizziness, tingling, tremors, sensory change, speech change, focal weakness, seizures, loss of consciousness, weakness and headaches. Endo/Heme/Allergies: Negative for environmental allergies and polydipsia. Does not bruise/bleed easily. Psychiatric/Behavioral: Negative for depression, hallucinations, memory loss, substance abuse and suicidal ideas. The patient is not nervous/anxious and does not have insomnia. Physical Examination: Vitals:BP 156/74 Pulse 61 Ht 5' 0 (1.52m) Wt 178 lb (80.7kg) SpO2 96% BMI 34.76 kg/(m^2). BP w/Orthostatic Vitals Date and Time Orthostatic BP Orthostatic Pulse BP Pulse BP Position BP Site BP Cuff Size 11/14/22 0950 -- -- 156/74 61 -- -- -- Last 2 Encounter Wt Readings: Date: Wt: 11/14/2022 80.7 kg (178 lb) 10/24/2022 80.2 kg (176 lb 12.8 oz) Physical Exam Constitutional: General: She is not in acute distress. Appearance: She is not diaphoretic. HENT: Head: Normocephalic and atraumatic. Right Ear: External ear normal. Left Ear: External ear normal. Nose: Nose normal. Mouth/Throat: Pharynx: Oropharynx is clear. Eyes: General: Right eye: No discharge. Left eye: No discharge. Conjunctiva/sclera: Conjunctivae normal. Pupils: Pupils are equal, round, and reactive to light. Cardiovascular: Rate and Rhythm: Normal rate and regular rhythm. Heart sounds: Normal heart sounds, S1 normal and S2 normal. No murmur heard. No friction rub. No gallop. No S3 or S4 sounds. Pulmonary: Effort: Pulmonary effort is normal. No respiratory distress. Breath sounds: Normal breath sounds. No wheezing or rales. Chest: Chest wall: No tenderness. Musculoskeletal: General: Normal range of motion. Cervical back: Normal range of motion and neck supple. Skin: General: Skin is warm and dry. Neurological: Mental Status: She is alert and oriented to person, place, and time. Psychiatric: Mood and Affect: Mood normal. Thought Content: Thought content normal. Judgment: Judgment normal. Pertinent Labs: CBC: Hemoglobin (g/dL) Date Value 04/25/2022 11.6 10/22/2021 13.0 Hematocrit (%) Date Value 04/25/2022 36.8 10/22/2021 41.1 WBC (k/uL) Date Value 04/25/2022 9.26 10/22/2021 6.46 Platelet Count (k/uL) Date Value 04/25/2022 320 10/22/2021 293 BMP: Glucose (mg/dL) Date Value 09/27/2022 98 10/22/2021 80 Potassium (mmol/L) Date Value 09/27/2022 4.3 10/22/2021 4.1 Sodium (mmol/L) Date Value 09/27/2022 137 10/22/2021 138 Chloride (mmol/L) Date Value 09/27/2022 101 10/22/2021 102 CO2 (mmol/L) Date Value 09/27/2022 24 10/22/2021 26 Creatinine (mg/dL) Date Value 09/27/2022 1.08 10/22/2021 1.02 BUN (mg/dL) Date Value 09/27/2022 19 10/22/2021 17 Anion Gap (mmol/L) Date Value 09/27/2022 12 10/22/2021 10 Calcium (mg/dL) Date Value 10/22/2021 9.0 Calcium, Total (mg/dL) Date Value 09/27/2022 9.4 INR: Lipid Profile: Total Cholesterol, Nonfasting Date Value Ref Range Status 09/27/2022 192 <200 mg/dL Final Comment: <200 mg/dL, Desirable 200-239 mg/dL, Borderline high >239 mg/dL, High HDL Cholesterol, Nonfasting Date Value Ref Range Status 09/27/2022 52 >39 mg/dL Final Comment: 40-59 mg/dL, Acceptable >59 mg/dL, High: Negative risk factor for coronary heart disease <40 mg/dL, Low: Positive risk factor for coronary heart disease LDL Cholesterol, Nonfasting Date Value Ref Range Status 09/27/2022 117 (H) <100 mg/dL Final Comment: <100 mg/dL, Optimal 100-129 mg/dL, Near optimal/above optimal 130-159 mg/dL, Borderline high 160-189 mg/dL, High >189 mg/dL, Very high Secondary prevention optimal LDL Cholesterol levels are recommended to be < 70 mg/dL Triglycerides, Nonfasting Date Value Ref Range Status 09/27/2022 116 <150 mg/dL Final Comment: <150 mg/dL, Normal 150-199 mg/dL, Borderline high 200-499 mg/dL, High >499 mg/dL, Very high Hemoglobin A1C: No results found for: HGBA1C TSH: No results found for: TSHREFL Prior Cardiac Testing none Assessment and Plan: 72 years old female patient with prior history of normal coronaries by cardiac catheterization withnormal right heart cath Angina with normal coronary artery She does have exertional angina likely small vessel coronary artery disease We can add Imdur to her regimen Stay on the rest of her other medication 2. Hypertension Poorly controlled systolic blood pressure We will see the effect of the nitrate on her blood pressure recommend if her systolic pressures stay greater than 140 add small dose of diuretic hydrochlorothiazide and substitute the amlodipine withthe diuretics Follow up planning: yearly Electronically signed by Jonna Benavides MD on November 14, 2022, 10:21 AM The above note was partially created using a dictation recognition software. A reasonable attempt has been made to correct any errors. documented in this encounterPrem[facility] Miscellaneous Notes* Telephone Encounter - Richa Jack Pss - 10/28/2022 10:16 AM EST Patient has been identified by name and date of : Yes RX INSTRUCTIONS: Patient aware RX will be sent to pharmacy. No need to notify patient. Patient phones requesting refills as follows: Requested Prescriptions Pending Prescriptions Disp Refills amitriptyline (ELAVIL) 10 mg tablet 30 tablet 0 Sig: Take 1 tablet by mouth daily at bedtime. SANJEEV-10/24/22 Labs-09/27/22 NOV-11/28/22 med filled 09/27/22 Please review and advise. Richa Walkerefrenaaron Pss documented in this encounterPrem[facility]12-19-2022 History of Present illness Narrative* Elizabeth Og, BOWLING BALL ASSEMBLER.CASH ACCOUNTING CLERK - 10/24/2022 7:47 AM EST 10/24/2022 Patient presents with: F/U 6 months SUBJECTIVE: This is a 72 year old that is here today for Above Complaints. Since last office visit has been in good health without ER visits or hospitalizations. HEADACHE: started on amitriptyline about a month ago. Taking and tolerating without side effects. Headaches have stopped HTN: Patient is compliant with meds Yes Monitors bp at home: Yes. 130/60's Denies side effects: Yes. Chest pain: No. Dyspnea: No. Edema: No. Palpitations: No. Syncope: No. Headache: No. Dizziness: No. CKD: tries to eat low salt diet and avoids NSAID products. HYPOTHYROIDISM: taking synthroid as prescribed without side effects. ASHD: has follow-up with technical publications writer in November. Taking BP medications as prescribed. Admits to SOB with exertion, however this is not changed from her baseline. Denies dyspnea, orthopnea, chest pain, palpitations or leg edema Prediabetes: never started metfromin. Checking blood sugars daily and range 90- low 100's Was 134 this Am which is the highest she has ever seen. Reports she ate cookies and pizza last night at a anglican event. Admits to excessive thirst however she reports she has always been like this. Denies polyuria or visual changes. PAST MEDICAL HISTORY Diagnosis Date Contact dermatitis and other eczema Degenerative arthritis of knee 05/24/2011 Delayed gastric emptying 07/24/2012 Diarrhea Diverticulitis Diverticulosis of colon (without mention of hemorrhage) Diverticulosis Dysphagia, unspecified 08/29/2017 Elevated alkaline phosphatase level 07/12/2018 Essential hypertension, benign Hyperlipidemia Hypokalemia 09/25/2012 Impaired fasting glucose 11/19/2015 Inadequate pelvic muscles 01/17/2012 Lumbar disc disease with radiculopathy 09/01/2016 Lung nodule < 6cm on CT 10/15/2018 10/07/18: incidental 4.5 mm nodule RML thyrotoxicosis Nonrheumatic mitral (valve) insufficiency Other osteoporosis 12/21/2006 Paroxysmal SVT (supraventricular tachycardia) ([facility]) Personal history of colonic polyps Colon polyps POLYP STOMACH 07/13/2007 Stage 3a chronic kidney disease (HCC) 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--surgery not needed (2015) Tethering of spinal cord ([facility]) 2014 Trigeminal neuralgia 10/11/2011 Trochanteric bursitis of left hip 07/24/2012 Unspecified hemorrhoids without mention of complication Hemorrhoids ALLERGIES Codeine, Aceon [Perindopril Erbumine], Beta Blockers [Other], Hctz [Other], Imdur [Isosorbide], Lipitor [Atorvastatin Calcium], Lisinopril, and Spironolactone MEDICATIONS Current Outpatient Medications Medication Sig amitriptyline (ELAVIL) 10 mg tablet Take 1 tablet by mouth daily at bedtime. potassium chloride ER (K-DUR, KLOR-CON) 20 mEq tablet Take 2 tablets by mouth twice daily. gabapentin (NEURONTIN) 300 mg capsule Take 1 capsule by mouth twice daily as needed for up to 90 days. labetalol (TRANDATE) 200 mg tablet Take 1 tablet by mouth twice daily. levothyroxine (SYNTHROID) 88 mcg tablet Take 1 tablet by mouth once daily. amLODIPine (NORVASC) 2.5 mg tablet Take one tablet daily in addition to 5 mg to equal 7.5 mg daily amLODIPine (NORVASC) 5 mg tablet Take 1 tablet by mouth once daily. losartan (COZAAR) 100 mg tablet Take 1 tablet by mouth once daily. pantoprazole DR (PROTONIX) 40 mg tablet TAKE 1 TABLET BY MOUTH ONCE DAILY. TAKE ON EMPTY STOMACH 1/2 HOUR BEFORE MEAL. metFORMIN (GLUCOPHAGE) 500 mg tablet Take 1 tablet by mouth twice daily with meals. . calcium carbonate-Vit D3-minerals (CALCIUM 600 + MINERALS) 600 mg calcium- 400 unit tab Take 2 tablets by mouth once daily. alendronate (FOSAMAX) 70 mg tablet Take 1 tablet by mouth one time a week. Take with a full glass of water, on an empty stomach; do NOT lie down for 30minutes. blood sugar diagnostic (BLOOD GLUCOSE TEST) test strip Test blood sugar(s) 1 times daily. Dx: Prediabetes Insulin: No Lancets lancets Test blood sugar(s) 1 times daily. Dx: Prediabetes Insulin: No polyethylene glycol 3350 (MIRALAX, GLYCOLAX) 17 gram/dose powder Use as directed for Miralax / Gatorade Bowel Prep Kit (Patient taking differently: 17 g once daily. Use as directed for Miralax / Gatorade Bowel Prep Kit ) Bifidobacterium infantis (ALIGN ORAL) Take by mouth once daily. (Patient not taking: Reported on 11/24/2021 ) ondansetron orally disintegrating (ZOFRAN ODT) 4 mg disintegrating tablet Take 1 tablet by mouth every 6 hours as needed for Nausea/Vomiting. 0.9 % sodium chloride (NACL 0.9%) 0.9% solp Infuse 500 ml IV over [address] meclizine (ANTIVERT) 25 mg tab Take 1 tablet by mouth three times daily as needed (vertigo). Biotin 2,500 mcg cap Take 1 capsule by mouth once daily. aspirin, enteric coated (ASPIRIN, ENTERIC COATED) 81 mg EC tablet Take 81 mg by mouth once daily. Current Facility-Administered Medications Medication Dose Route Frequency perflutren lipid microspheres 1.3 mL in NaCl (PF) 0.9% 10 mL injection (DEFINITY) INTRAVENOUS DIRECTED PRN sodium chloride 0.9 % (flush) 10 mL (BD POSIFLUSH) 10 mL INTRAVENOUS DIRECTED PRN Medications and allergies reviewed by this provider. SOCIAL HISTORY Social History Tobacco Use Smoking status: Former Packs/day: 0.10 Years: 1.00 Pack years: 0.10 Types: Cigarettes Smokeless tobacco: Never Tobacco comments: Smoked 1 year or less in 1980s. Spouse was smoker in home for 39 years. Father smoked in childhood home. Vaping Use Vaping Use: Never used Substance Use Topics Alcohol use: No Drug use: No REVIEW OF SYSTEMS All other reviewed and negative other than HPI. OBJECTIVE: BP 162/84 Pulse 72 Resp 16 Wt 80.2 kg (176 lb 12.8 oz) SpO2 98% BMI 34.53 kg/m . Vital signs reviewed by this provider. APPEARANCE Well appearing, alert, in no acute distress, well-hydrated, well nourished. EYES conjunctiva and sclera normal. EARS External ears normal, canals clear HEART RRR with normal S1 and S2, no murmurs, no gallops, no JVD appreciated LUNG clear to auscultation. No wheezes, rhonchi, or rales EXTREMITIES Extremities normal, No deformities, No skin discoloration, and No edema SKIN Skin color, texture, turgor normal, no suspicious rashes or lesions to exposed skin Component Latest Ref Rng & Units 09/27/2022 Protein, Total 6.3 - 8.0 g/dL 7.3 Albumin 3.9 - 4.9 g/dL 4.3 Calcium 8.5 - 10.2 mg/dL 9.4 Bilirubin, Total 0.2 - 1.3 mg/dL 0.3 Alkaline Phosphatase 34 - 123 U/L 106 AST 13 - 35 U/L 22 ALT 7 - 38 U/L 16 Glucose 74 - 99 mg/dL 98 BUN 7 - 21 mg/dL 19 Creatinine 0.58 - 0.96 mg/dL 1.08 (H) Sodium 136 - 144 mmol/L 137 Potassium 3.7 - 5.1 mmol/L 4.3 Chloride 97 - 105 mmol/L 101 CO2 22 - 30 mmol/L 24 Anion Gap 9 - 18 mmol/L 12 eGFR >=60 mL/min/1.73m 54 (L) Total Cholesterol, Nonfasting <200 mg/dL 192 Triglycerides, Nonfasting <150 mg/dL 116 HDL Cholesterol, Nonfasting >39 mg/dL 52 LDL Cholesterol, Nonfasting <100 mg/dL 117 (H) Non HDL Cholesterol, Nonfasting <130 mg/dL 140 (H) VLDL Cholesterol, Nonfasting <30 mg/dL 23 Total Chol/HDL Ratio, Nonfasting <5.10 mg/dL 3.69 LDL/HDL Ratio, Nonfasting <2.54 mg/dL 2.25 Hemoglobin A1C 4.3 - 5.6 % 5.9 (H) Estimated Average Glucose mg/dL 123 Component Latest Ref Rng & Units 01/05/2022 TSH 0.270 - 4.200 mIU/L 2.880 DTAP,TDAP,TD(1 - Tdap) Never done SHINGRIX VACCINE(1 of 2) Never done ADVANCE DIRECTIVE DISCUSSION Never done DEPRESSION ASSESSMENT Never done BP CONTROLLED (<130/80) due on 03/23/2022 COVID-19 VACCINE(5 - Booster for Pfizer series) due on 10/24/2023 HEMOGLOBIN/HEMATOCRIT due on 04/25/2023 LDL CHOLESTEROL due on 09/27/2023 ANNUAL PCP TEAM CHRONIC DISEASE VISIT due on 09/27/2023 SERUM CREATININE due on 09/27/2023 MAMMOGRAM due on 10/11/2023 DIABETES SCREEN due on 09/27/2025 LIPID SCREEN due on 09/27/2027 COLORECTAL CANCER SCREENING due on 04/28/2031 BONE DENSITY Completed INFLUENZA Completed HEPATITIS C SCREENING Completed PNEUMOCOCCAL: 65+ Completed ASSESSMENT/PLAN: 1. Essential hypertension, benign - ICD9: 401.1, ICD10: I10 (primary diagnosis) - suboptimal control - Continue current medication(s) - Encouraged dietary sodium restriction/DASH diet - Recommended regular aerobic exercise. - Recommend home blood pressure monitoring, to bring results in on next visit - Discussed need and benefit for weight loss. - Follow up in 1 month for BP recheck. - Goal of BP <140/90 - Recommended no refined sugar, low refined starch, healthy oil intake (olive oil), healthy protein(fish) along the lines of the Mediterranean diet. 2. ASHD (arteriosclerotic heart disease) - ICD9: 414.00, ICD10: I25.10 - continue current medications - follow-up with cardiology as scheduled 3. Stage 3 chronic kidney disease, unspecified whether stage 3a or 3b CKD (HCC) - ICD9: 585.3, ICD10: N18.30 - Counseled on avoiding regular use of NSAIDs, adequate hydration, potential risk of IV dye - Recommend maintaining A1c < 7% - follow-up in 6 months, sooner if needed 4. Postablative hypothyroidism - ICD9: 244.1, ICD10: E89.0 - Instructed patient on importance of taking on an empty stomach either first thing in the morning or at bedtime. - continue current dose of Synthroid 0.088 mg - Follow up in 6 months 5. Headache, unspecified headache type - ICD9: 784.0, ICD10: R51.9 - improved - continue amitriptyline - follow-up as needed 6. Prediabetes - ICD9: 790.29, ICD10: R73.03 - continue to monitor fasting blood sugar - discussed diet and exercise - follow-up in 6 months, sooner if blood sugars elevating Elizabeth Og APRN.CONSTANTINO Prescription instructions reviewed with patient as applicable. Patient advised if symptoms do not improve or if symptoms worsen sooner, to contact their primary care physician. Potential red flag symptoms discussed with the patient. Reviewed appropriate action plan to take if red flag symptoms occur. Patient agreeable to treatment plan. I spent a total of 30 minutes on the date of the service which included preparing to see the patient, [id number] patient care, completing clinical documentation, obtaining and/or reviewing separately obtained history, performing a medically appropriate examination, and counseling and educating the patient/family/caregiver. documented in this encounterPrem[facility]12-13-[facility]22 History of Present illness Narrative* Beatirz Ferrer RN - 10/18/2022 11:45 AM EST INSIGHT CD TELEPHONIC OUTREACH Provider Action/FYI: Patient reports she is doing good, seen in pcp office 09/27, prescribed Amitriptyline 10 mg for headaches, states she is unsure if it is working, continues to use Tylenol to take the edge off. Patient states she has a itchy, somewhat painful rash, on her lower left leg which appeared at the end of gardening season. Patient has tried otc creams and lotions w/no relief. Also, patient reports intermittent mild pain above her right kidney for some time now. Denies decreased output, feeling dehydrated, LE edema, weight gain. Patient has pcp office follow up 10/24 advised to bring up above issues at that time. Patient agreeable, had no further questions, concerns, needs at this time. Contact made with patient: Yes Patient identified by name and . Discussed care with patient It s nice talking to you again. As a reminder, this is our bi-weekly check-in where I will be asking you questions about your health. This will only take a few minutes of your time. Is this a good time? Yes Symptoms What Chronic Disease(s) does the patient have: CKD Do you check your blood pressures at home? No Do you have new or worse shortness of breath with activity? No Do you feel like you are dehydrated for any reason, including not being able to eat or drink normally, or having less urine/much darker urine than normal for you? No Do you check your daily weight at home? No Are you having any other symptoms that your PCP needs to know about? No Symptom Escalation The patient required an escalation for symptom(s)? No Medications Do you have any questions about taking your medication or which medications you should be on? No Do you need any medication refills at this time, including any of the medications you might take only when needed? No Social We would like to make sure you have what you need so that your basic needs are met- including your personal safety, food, housing and medications? Would you like to speak with a social work seam steamer to help give you support for any of these needs? No It can be normal to feel anxious or down during a time like this. Would you like to talk to a mental health professional about how you have been feeling? No Closing Thank you for taking the time to talk with me today. We want to work with you to ensure that we arekeeping your medical condition(s) well-controlled and to keep you healthy and out of the doctor's office or hospital. It s also not too late for me to sign you up for automated weekly questionnaires through [employer]. This is an easy way for us to stay connected each week. Are you interested? No, I understand. We can always sign you up in the future if you change your mind. Just as a reminder, will continue to call you every other week to check in on your health. Our calls should take 10-15 minutes or less. Remember, if you have concerns in between our calls, please call your PCP's office right away. Thank you. Enter next patient outreach date for two weeks on the same day of the week as today in the Track PtOutreach and End outreach. documented in this encounterPrem[facility] Miscellaneous Notes* Telephone Encounter - MARLI Cooper - 09/28/2022 1:58 PM EST TC to patient who verbalized understanding of providers message and has no further questions at this time. MARLI Cooper * Telephone Encounter - Elizabeth Og APRN.CNP - 09/28/2022 1:51 PM EST Please call patient and let her know her LDL ( bad cholesterol) is up a little from last check. Recommend low fat diet and at least 150 minutes of exercise per week. The rest of her blood work is in acceptable limits. Elizabeth Og APRN.CONSTANTINO documented in this encounterPrem[facility]11-22-2022 History of Present illness Narrative* Elizabeth Og APRN.CNP - 09/27/2022 10:45 AM EST 09/27/2022 Patient presents with: Nausea: Vomiting x1 this AM; Headache: To top of head x2 weeks SUBJECTIVE: This is a 72 year old that is here today for Above Complaints. HEADACHE: for the last two weeks has had a headache. Located to top of head. Described as a throbbing ache. Taking tylenol which does not help. Denies hx of headaches, visual changes, dizziness, lightheadedness, photophobia, phonophobia, confusion, slurred speech, facial drooping, extremity numbness, tingling or weakness Today when having a bowel movement had an episode of vomiting and felt like she may pass out. Reports she has passed out when having a bowel movement before. Reports her coffee has not been agreeing with her lately and she had just drank a small cup prior. Admits to some RUQ discomfort but none at this time. She is concerned because at some point she ws told she had a cyst on her pancrease. Denies weight loss, fevers, chills, constipation or diarrhea PAST MEDICAL HISTORY Diagnosis Date Contact dermatitis and other eczema Degenerative arthritis of knee 05/24/2011 Delayed gastric emptying 07/24/2012 Diarrhea Diverticulitis Diverticulosis of colon (without mention of hemorrhage) Diverticulosis Dysphagia, unspecified 08/29/2017 Elevated alkaline phosphatase level 07/12/2018 Essential hypertension, benign Hyperlipidemia Hypokalemia 09/25/2012 Impaired fasting glucose 11/19/2015 Inadequate pelvic muscles 01/17/2012 Lumbar disc disease with radiculopathy 09/01/2016 Lung nodule < 6cm on CT 10/15/2018 10/07/18: incidental 4.5 mm nodule RML thyrotoxicosis Nonrheumatic mitral (valve) insufficiency Other osteoporosis 12/21/2006 Paroxysmal SVT (supraventricular tachycardia) (HCC) Personal history of colonic polyps Colon polyps POLYP STOMACH 07/13/2007 Stage 3a chronic kidney disease (HCC) 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 gabapentin (NEURONTIN) 300 mg capsule Take 1 capsule by mouth twice daily as needed for up to 90 days. labetalol (TRANDATE) 200 mg tablet Take 1 tablet by mouth twice daily. levothyroxine (SYNTHROID) 88 mcg tablet Take 1 tablet by mouth once daily. amLODIPine (NORVASC) 2.5 mg tablet Take one tablet daily in addition to 5 mg to equal 7.5 mg daily amLODIPine (NORVASC) 5 mg tablet Take 1 tablet by mouth once daily. losartan (COZAAR) 100 mg tablet Take 1 tablet by mouth once daily. pantoprazole DR (PROTONIX) 40 mg tablet TAKE 1 TABLET BY MOUTH ONCE DAILY. TAKE ON EMPTY STOMACH 1/2 HOUR BEFORE MEAL. metFORMIN (GLUCOPHAGE) 500 mg tablet Take 1 tablet by mouth twice daily with meals. . calcium carbonate-Vit D3-minerals (CALCIUM 600 + MINERALS) 600 mg calcium- 400 unit tab Take 2 tablets by mouth once daily. alendronate (FOSAMAX) 70 mg tablet Take 1 tablet by mouth one time a week. Take with a full glass of water, on an empty stomach; do NOT lie down for 30minutes. blood sugar diagnostic (BLOOD GLUCOSE TEST) test strip Test blood sugar(s) 1 times daily. Dx: Prediabetes Insulin: No Lancets lancets Test blood sugar(s) 1 times daily. Dx: Prediabetes Insulin: No polyethylene glycol 3350 (MIRALAX, GLYCOLAX) 17 gram/dose powder Use as directed for Miralax / Gatorade Bowel Prep Kit (Patient taking differently: 17 g once daily. Use as directed for Miralax / Gatorade Bowel Prep Kit ) Bifidobacterium infantis (ALIGN ORAL) Take by mouth once daily. (Patient not taking: Reported on 11/24/2021 ) ondansetron orally disintegrating (ZOFRAN ODT) 4 mg disintegrating tablet Take 1 tablet by mouth every 6 hours as needed for Nausea/Vomiting. 0.9 % sodium chloride (NACL 0.9%) 0.9% solp Infuse 500 ml IV over [address] meclizine (ANTIVERT) 25 mg tab Take 1 tablet by mouth three times daily as needed (vertigo). Biotin 2,500 mcg cap Take 1 capsule by mouth once daily. aspirin, enteric coated (ASPIRIN, ENTERIC COATED) 81 mg EC tablet Take 81 mg by mouth once daily. Current Facility-Administered Medications Medication Dose Route Frequency perflutren lipid microspheres 1.3 mL in NaCl (PF) 0.9% 10 mL injection (DEFINITY) INTRAVENOUS DIRECTED PRN sodium chloride 0.9 % (flush) 10 mL (BD POSIFLUSH) 10 mL INTRAVENOUS DIRECTED PRN Medications and allergies reviewed by this provider. SOCIAL HISTORY Social History Tobacco Use Smoking status: Former Packs/day: 0.10 Years: 1.00 Pack years: 0.10 Types: Cigarettes Smokeless tobacco: Never Tobacco comments: Smoked 1 year or less in 1980s. Spouse was smoker in home for 39 years. Father smoked in childhood home. Vaping Use Vaping Use: Never used Substance Use Topics Alcohol use: No Drug use: No REVIEW OF SYSTEMS All other reviewed and negative other than HPI. OBJECTIVE: BP 142/82 Pulse 71 Temp 36.6 C (97.8 F) Resp 18 Wt 78.4 kg (172 lb 12.8 oz) SpO2 99% BMI 33.75 kg/m . Vital signs reviewed by this provider. APPEARANCE Well appearing, alert, in no acute distress, well-hydrated, well nourished. EYES PERRLA, conjunctiva and sclera normal. EARS External ears normal, canals clear NECK Supple, no adenopathy; thyroid symmetric, normal size, no bruits HEART RRR with normal S1 and S2, no murmurs, no gallops, no JVD appreciated LUNG clear to auscultation. No wheezes, rhonchi or rales ABDOMEN bowel sounds normoactive, no bruits, soft, non-tender, non-distended, without organomegaly or palpable masses EXTREMITIES Extremities normal, No deformities, No skin discoloration, and No edema NEURO Awake, alert and oriented x 3, Cranial nerves II-XII grossly intact, Reflexes symmetrical, Normal gait, No involuntary motions., and negative findings: mental status intact, cranial nerves 2-12intact, gait, including heel, toe, and tandem walking normal, Romberg negative, muscle tone normal,muscle strength normal, rapid alternating movements normal, finger to nose normal, reflexes normal and symmetric, plantar response downgoing bilaterally SKIN Skin color, texture, turgor normal, no suspicious rashes or lesions to exposed skin DTAP,TDAP,TD(1 - Tdap) Never done SHINGRIX VACCINE(1 of 2) Never done ADVANCE DIRECTIVE DISCUSSION Never done DEPRESSION ASSESSMENT Never done COVID-19 VACCINE(5 - Booster for Pfizer series) due on 01/13/2022 BP CONTROLLED (<130/80) due on 03/23/2022 LDL CHOLESTEROL due on 07/19/2022 MAMMOGRAM due on 10/11/2022 SERUM CREATININE due on 04/25/2023 HEMOGLOBIN/HEMATOCRIT due on 04/25/2023 ANNUAL PCP TEAM CHRONIC DISEASE VISIT due on 09/27/2023 DIABETES SCREEN due on 04/25/2025 LIPID SCREEN due on 07/19/2026 COLORECTAL CANCER SCREENING due on 04/28/2031 BONE DENSITY Completed INFLUENZA Completed HEPATITIS C SCREENING Completed PNEUMOCOCCAL: 65+ Completed ASSESSMENT/PLAN: 1. Headache, unspecified headache type - ICD9: 784.0, ICD10: R51.9 (primary diagnosis) - no red flag symptoms or exam findings - red flag symptoms discussed, verbalizes understanding - patient can not take NSAID products - AMITRIPTYLINE 10 MG TABLET- common side effects discussed with patient. May cause drowsiness so told not to drive or operate heavy machinery while taking. Discussed when getting up at night to sit on side of bed before getting up as she may experience dizziness with medication - follow-up as scheduled, sooner if needed to ER with red flag symptoms 2. Nausea and vomiting, unspecified vomiting type - ICD9: 787.01, ICD10: R11.2 - had one episode this morning - no nausea at this time - no red flag symptoms or exam finding - red flag symptoms discussed, verbalizes understanding - recommend stop drinking coffee as it hs not been agreeing with her lately. Mosby diet today - follow-up if persists, to ER with red flag symptoms Elizabeth Og APRN.CNP Prescription instructions reviewed with patient as applicable. Patient advised if symptoms do not improve or if symptoms worsen sooner, to contact their primary care physician. Potential red flag symptoms discussed with the patient. Reviewed appropriate action plan to take if red flag symptoms occur. Patient agreeable to treatment plan. I spent a total of 30 minutes on the date of the service which included preparing to see the patient, [id number] patient care, completing clinical documentation, obtaining and/or reviewing separately obtained history, performing a medically appropriate examination, counseling and educating the pat ient/family/caregiver, and ordering medications, tests, or procedures. documented in this encounterPrem[facility]11-14-2022 History of Present illness Narrative* Beatriz Ferrer RN - 09/19/2022 1:23 PM EST INSIGHT CDM TELEPHONIC OUTREACH Provider Action/FYI: Patient reports she is doing good, had no questions, concerns, needs at this time. Contact made with patient: Yes Patient identified by name and . Discussed care with patient It s nice talking to you again. As a reminder, this is our bi-weekly check-in where I will be asking you questions about your health. This will only take a few minutes of your time. Is this a good time? Yes Symptoms What Chronic Disease(s) does the patient have: CKD Do you check your blood pressures at home? No Do you have new or worse shortness of breath with activity? No Do you feel like you are dehydrated for any reason, including not being able to eat or drink normally, or having less urine/much darker urine than normal for you? No Do you check your daily weight at home? No Are you having any other symptoms that your PCP needs to know about? No Symptom Escalation The patient required an escalation for symptom(s)? No Medications Do you have any questions about taking your medication or which medications you should be on? No Do you need any medication refills at this time, including any of the medications you might take only when needed? No Social We would like to make sure you have what you need so that your basic needs are met- including your personal safety, food, housing and medications? Would you like to speak with a social work seam steamer to help give you support for any of these needs? No It can be normal to feel anxious or down during a time like this. Would you like to talk to a mental health professional about how you have been feeling? No Closing Thank you for taking the time to talk with me today. We want to work with you to ensure that we arekeeping your medical condition(s) well-controlled and to keep you healthy and out of the doctor's office or hospital. It s also not too late for me to sign you up for automated weekly questionnaires through [employer]. This is an easy way for us to stay connected each week. Are you interested? No, I understand. We can always sign you up in the future if you change your mind. Just as a reminder, will continue to call you every other week to check in on your health. Our calls should take 10-15 minutes or less. Remember, if you have concerns in between our calls, please call your PCP's office right away. Thank you. Enter next patient outreach date for two weeks on the same day of the week as today in the Track PtOutreach and End outreach. documented in this encounterPrem[facility]10-31-2022 History of Present illness Narrative* Tonia Naik RN - 09/05/2022 12:23 PM EDT ALICE [facility] TELEPHONIC OUTREACH Provider Action/FYI: Contact made with patient: Yes Patient identified by name and . Discussed care with patient It s nice talking to you again. As a reminder, this is our bi-weekly check-in where I will be asking you questions about your health. This will only take a few minutes of your time. Is this a good time? Yes Symptoms What Chronic Disease(s) does the patient have: CKD Do you check your blood pressures at home? Yes, Enter readings: 130/60 Do you have new or worse shortness of breath with activity? No Do you feel like you are dehydrated for any reason, including not being able to eat or drink normally, or having less urine/much darker urine than normal for you? No Do you check your daily weight at home? No Are you having any other symptoms that your PCP needs to know about? No Symptom Escalation The patient required an escalation for symptom(s)? No Medications Do you have any questions about taking your medication or which medications you should be on? No Do you need any medication refills at this time, including any of the medications you might take only when needed? No Social We would like to make sure you have what you need so that your basic needs are met- including your personal safety, food, housing and medications? Would you like to speak with a social work seam steamer to help give you support for any of these needs? No It can be normal to feel anxious or down during a time like this. Would you like to talk to a mental health professional about how you have been feeling? No Closing Thank you for taking the time to talk with me today. We want to work with you to ensure that we arekeeping your medical condition(s) well-controlled and to keep you healthy and out of the doctor's office or hospital. It s also not too late for me to sign you up for automated weekly questionnaires through [employer]. This is an easy way for us to stay connected each week. Are you interested? No, I understand. We can always sign you up in the future if you change your mind. Just as a reminder, will continue to call you every other week to check in on your health. Our calls should take 10-15 minutes or less. Remember, if you have concerns in between our calls, please call your PCP's office right away. Thank you. Enter next patient outreach date for two weeks on the same day of the week as today in the Track PtOutreach and End outreach. documented in this encounterPrem[facility]10-18-2022 Miscellaneous Notes* Telephone Encounter - Hannah Jaramillo Ma - 08/23/2022 4:25 PM EDT Called and spoke with Daughter Heather. 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 Heather states her mom will call back to reschedule when she is back in town. * Telephone Encounter - Pooja Brown RN - 08/23/2022 4:20 PM EDT Pt's daughter called, pt would like to cancel surgery for trigger finger with Dr. Yi. documented in this encounterPremier [facility]10-17-2022 History of Present illness Narrative* Tonia Naik RN - 08/22/2022 2:09 PM EDT INSIGHT CD TELEPHONIC OUTREACH Provider Action/FYI: Patients daughter reports patient is doing well, is currently in [place] and will be back in a week, will reschedule patient outreach Contact made with patient: Yes Patient identified by name and . Discussed care with It s nice talking to you again. As a reminder, this is our bi-weekly check-in where I will be asking you questions about your health. This will only take a few minutes of your time. Is this a good time? No - today is not a good time for the patient. Agree on a call back time and connect with the patient then. If applicable, update the next patient outreach date using the Track Pt Outreach. End outreach documented in this encounterPremier [facility]10-12-2022 Miscellaneous Notes* Telephone Encounter - Elisa Starr MD - 08/17/2022 10:49 AM EDT PDMP website checked and validated. All prescriptions have been APPROPRIATELY filled. No suspiciousactivity was identified. 08/17/2022 by Elisa Starr MD * Telephone Encounter - Gia Wilson LPN - 08/17/2022 10:44 AM EDT Patient has been identified by name and date of : Yes Patient phones for refill(s): Requested Prescriptions Pending Prescriptions Disp Refills gabapentin (NEURONTIN) 300 mg capsule 180 capsule 0 Sig: Take 1 capsule by mouth twice daily as needed for up to 90 days. Date of last office visit in primary care: 04/25/22 next apt 10/24/22 Last 2 Encounter Wt Readings: Date: Wt: 04/25/2022 79.9 kg (176 lb 3.2 oz) 03/28/2022 79.8 kg (176 lb) Previous labs/tests for medication: Not applicable Thank you. Gia Wilson LPN * Telephone Encounter - KAREN Calvillo - 08/17/2022 8:49 AM EDT Patient has been identified by name and date of : Yes Patient phones for refill(s): Requested Prescriptions No prescriptions requested or ordered in this encounter Date of last office visit in primary care: 04/25/2022 Last 2 Encounter Wt Readings: Date: Wt: 04/25/2022 79.9 kg (176 lb 3.2 oz) 03/28/2022 79.8 kg (176 lb) Previous labs/tests for medication: Not applicable Please advise. Thank you. KAREN Calvillo documented in this encounterPrem[facility]10-03-2022 History of Present illness Narrative* Tonia Naik RN - 08/08/2022 12:35 PM EDT [facility] TELEPHONIC OUTREACH Provider Action/FYI: Contact made with patient: No - Left message Enmanuel my name is Tonia Naik RN your Efficiency Engineer from the [facility] I am calling today for your bi-weekly check in. I am sorry I missed your call. I will reach out to you again tomorrow. (if the third call I will reach out to you again next week) Enter next patient outreach date for the following business day using the Track Pt Outreach. End outreach. documented in this encounterPrem[facility]09-20-2022 History of Present illness Narrative* Tonia Naik RN - 07/26/2022 12:17 PM EDT [facility] TELEPHONIC OUTREACH Provider Action/FYI: Contact made with patient: Yes Patient identified by name and . Discussed care with patient It s nice talking to you again. As a reminder, this is our bi-weekly check-in where I will be asking you questions about your health. This will only take a few minutes of your time. Is this a good time? Yes Symptoms What Chronic Disease(s) does the patient have: CKD Do you check your blood pressures at home? No Do you have new or worse shortness of breath with activity? No Are you having any other symptoms that your PCP needs to know about? No Symptom Escalation The patient required an escalation for symptom(s)? No Medications Do you have any questions about taking your medication or which medications you should be on? No Do you need any medication refills at this time, including any of the medications you might take only when needed? No Social We would like to make sure you have what you need so that your basic needs are met- including your personal safety, food, housing and medications? Would you like to speak with a social work seam steamer to help give you support for any of these needs? No It can be normal to feel anxious or down during a time like this. Would you like to talk to a mental health professional about how you have been feeling? No Closing Thank you for taking the time to talk with me today. We want to work with you to ensure that we arekeeping your medical condition(s) well-controlled and to keep you healthy and out of the doctor's office or hospital. It s also not too late for me to sign you up for automated weekly questionnaires through [employer]. This is an easy way for us to stay connected each week. Are you interested? No, I understand. We can always sign you up in the future if you change your mind. Just as a reminder, will continue to call you every other week to check in on your health. Our calls should take 10-15 minutes or less. Remember, if you have concerns in between our calls, please call your PCP's office right away. Thank you. Enter next patient outreach date for two weeks on the same day of the week as today in the Track PtOutreach and End outreach. documented in this encounterPrem[facility]09-20-2022 Miscellaneous Notes* Telephone Encounter - Vangie Gonzalez LPN - 07/26/2022 10:31 AM EDT Called and spoke with pharmacy assitant Isaura. States the last time filled was May 31 for 90 tabs, did get the refill on 07/04 Will be filled Aug 07. Patient telephoned and made aware. Vangie Gonzalez LPN * Telephone Encounter - Guadalupe Juarez - 07/25/2022 2:03 PM EDT Tashia Fernandez is calling Elisa Starr MD today. Patient received a message from mail order pharmacy needing a new script for her thyroid medication. A year supply was sent in June Please contact [facility] levothyroxine (SYNTHROID) 88 mcg tablet 90 tablet 3 07/04/2022 Sig: Take 1 tablet by mouth once daily. Sent to pharmacy as: levothyroxine (SYNTHROID) 88 mcg tablet Class: Normal Route: ORAL Order: [id number] E-Prescribing Status: Receipt confirmed by pharmacy (07/04/2022 11:49 AM EDT) documented in this encounterPrem[facility]09-15-2022 Miscellaneous Notes* Telephone Encounter - Noelle Lloyd Ma - 07/21/2022 2:50 PM EDT Surgery date has been rescheduled to 08/25/2022. * Telephone Encounter - Hannah Jaramillo Ma - 07/18/2022 4:50 PM EDT Called and spoke with patient. She would like to reschedule her surgery for 08/25/22. Case message sent to [facility] surgery schedulers. Post op appointments mailed to patient. * Telephone Encounter - Khang Chavez LPN - 07/14/2022 9:13 AM EDT Patient called. Verified name and date of . Patient reports having surgery scheduled 07/21/2022 but would like to have that cancelled and rescheduled for next month. Khang Chavez LPN documented in this encounterPremier Health [facility]08-31-2022 History of Present illness Narrative* Tonia Naik RN - 07/06/2022 8:09 AM EDT INSIGHT CD TELEPHONIC OUTREACH Provider Action/FYI: Contact made with patient: Yes Patient identified by name and . Discussed care with patient It s nice talking to you again. As a reminder, this is our bi-weekly check-in where I will be asking you questions about your health. This will only take a few minutes of your time. Is this a good time? Yes Symptoms What Chronic Disease(s) does the patient have: CKD Do you check your blood pressures at home? No Do you have new or worse shortness of breath with activity? No Do you feel like you are dehydrated for any reason, including not being able to eat or drink normally, or having less urine/much darker urine than normal for you? No Do you check your daily weight at home? No Are you having any other symptoms that your PCP needs to know about? No Symptom Escalation The patient required an escalation for symptom(s)? No Medications Do you have any questions about taking your medication or which medications you should be on? No Do you need any medication refills at this time, including any of the medications you might take only when needed? No Social We would like to make sure you have what you need so that your basic needs are met- including your personal safety, food, housing and medications? Would you like to speak with a social work seam steamer to help give you support for any of these needs? No It can be normal to feel anxious or down during a time like this. Would you like to talk to a mental health professional about how you have been feeling? No Closing Thank you for taking the time to talk with me today. We want to work with you to ensure that we arekeeping your medical condition(s) well-controlled and to keep you healthy and out of the doctor's office or hospital. It s also not too late for me to sign you up for automated weekly questionnaires through [employer]. This is an easy way for us to stay connected each week. Are you interested? No, I understand. We can always sign you up in the future if you change your mind. Just as a reminder, will continue to call you every other week to check in on your health. Our calls should take 10-15 minutes or less. Remember, if you have concerns in between our calls, please call your PCP's office right away. Thank you. Enter next patient outreach date for two weeks on the same day of the week as today in the Track PtOutreach and End outreach. documented in this encounterPrem[facility]08-27-2022 Miscellaneous Notes* Telephone Encounter - Thao Staci Pss - 07/02/2022 9:33 AM EDT Patient has been identified by name and date of : Yes Last office visit in this department: 04/25/2022 Labs-04/25/22 NOV-10/24/22 RX INSTRUCTIONS: Patient aware RX will be sent to pharmacy. No need to notify patient. Patient phones requesting refills as follows: Requested Prescriptions Pending Prescriptions Disp Refills levothyroxine (SYNTHROID) 88 mcg tablet 90 tablet 3 Sig: Take 1 tablet by mouth once daily. Please review and advise. 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 Mccollum at [facility]. [phone], . Patient is willing to warehouse picker CD/report if unable to be transported to the provider. Thank you. documented in this [facility]08-24-2022 Miscellaneous Notes* Telephone Encounter - Noelle Lloyd Ma - 06/29/2022 10:24 AM EDT Surgery has been scheduled as requested. * Telephone Encounter - Hannah Jaramillo Ma - 06/28/2022 7:58 AM EDT Patient scheduled for Right ring trigger finger release on 07/21/2022. Surgical request completed. Post op appointments scheduled and mailed to patient. documented in this encounterPremier [facility] Hospital08-23-2022 Miscellaneous Notes* Telephone Encounter - Cyndi Jones - 06/28/2022 11:36 AM EDT Patient requesting 90 day script. Original script was only 30 days. Changed and pended. Please review. * Telephone Encounter - Cyndi Jones - 06/28/2022 11:32 AM EDT Pharmacy verified in [facility] Patient has been identified by name and date of : Yes Patient aware RX will be sent to pharmacy. No need to notify patient. Patient phones for refill(s): Requested Prescriptions Pending Prescriptions Disp Refills amLODIPine (NORVASC) 2.5 mg tablet 90 tablet 3 Sig: Take one tablet daily in addition to 5 mg to equal 7.5 mg daily amLODIPine (NORVASC) 5 mg tablet 90 tablet 3 Sig: Take 1 tablet by mouth once daily. Date of last office visit : 04/25/2022 Date of next office visit : 10/24/2022 Last 2 Encounter Wt Readings: Date: Wt: 04/25/2022 79.9 kg (176 lb 3.2 oz) 03/28/2022 79.8 kg (176 lb) Please advise. Cyndi Watson Pss documented in this encounterPremier Health [facility]08-22-2022 History of Present illness Narrative* Abhishek Yi MD - 06/27/2022 11:31 AM EDT Abhishek Yi MD Department of Orthopaedics Orthopaedics [address] [place] [address] Dept: [phone] Dept June 27, 2022 CHIEF COMPLAINT: Follow Up of the Right Ring Finger (4 months post visit right ring trigger finger with injection given - wants to discuss surgery) HPI Patient states injection did not help. Her finger has been locking again. She has been taking Naproxen and Tylenol for the pain and helps take the edge off. Patient states she has been having neck pain also. She is having difficulty moving her head side to side. She did have an MRI done on 03/15/22 ordered by her Neurologist Dr Taylor. KATHARINE ROOMING INTAKE FLOWSHEET DATA Risk Screening Do you have concerns about personal safety or safety in the home?: No Pain Pain Level: 8 Pain Location: (Right ring finger) Description: Sore Duration Amount of Time: (Ongoing) Frequency: Continuous Intervention/Comfort measure: Medication ASSESSMENT: M65.341 Trigger ring finger of right hand (primary encounter diagnosis) PLAN: We discussed the risks, benefits, alternatives and potential complications involving both operativeand nonoperative treatment. She would like to pursue surgery on the right ring trigger finger. We will get her scheduled at her convenience. Ms. Tashia Fernandez was advised as to contrast therapies and/or to take analgesics/anti-inflammatories as needed and all contraindications were reviewed. OBJECTIVE: Ms. Tashia Fernandez is a pleasant 72 year old in no apparent distress. Gen:There were no vitals taken for this visit. nl development, non obese, no deformities ENT: Normocephalic, normal hearing, moist mucosa CV: Pulses:Radial= 2+ and symmetric, capillary refill < 2 secs, no peripheral edema/varicosities Skin: no rash, bruising or lesions. Good turgor. Psych: cooperative and appropriate, alert and oriented x 3, good mood and affect. Musculoskeletal: Tender to palpation at the A1 kathy site of the affected digit. Locking and catching. Supporting Subjective Information Below: Past Surgical History: PAST SURGICAL HISTORY Procedure Laterality Date COLONOSCOPY FLX DX W/COLLJ SPEC WHEN PFRMD 12/2018 Colonoscopy COLONOSCOPY FLX DX W/COLLJ SPEC WHEN PFRMD 07/13/2007 Lax colon COLONOSCOPY FLX DX W/COLLJ SPEC WHEN PFRMD 03/26/2014 Colonoscopy COLONOSCOPY FLX DX W/COLLJ SPEC WHEN PFRMD 12/2018 WLQ-[id number]-hlcuzy 10 years COLONOSCOPY GEN ANES 04/28/2021 DECOMPRESSION PLANTAR DIGITAL NERVE 1999 heel spur/ plantar fasciitis repair Rt EGD 06/02/2021 EGD TRANSORAL BIOPSY SINGLE/MULTIPLE 07/13/2007 Gastritis, fundic gland polyps ESOPHAGOGASTRODUODENOSCOPY TRANSORAL DIAGNOSTIC 03/26/2014 EGD LAPAROSCOPY SURG CHOLECYSTECTOMY Cholecystectomy, lap LIG/TRNSXJ FLP TUBE ABDL/VAG APPR UNI/BI NEUROPLASTY &/TRANSPOS MEDIAN NRV CARPAL TUNNE Carpal tunnel decomp bilateral OPEN REPAIR OF ROTATOR CUFF ACUTE 1992 Rotator cuff repair, right STRESS TEST,COMPLETE_*FL Medications: Current Outpatient Medications Medication Sig losartan (COZAAR) 100 mg tablet Take 1 tablet by mouth once daily. potassium chloride ER (K-DUR, KLOR-CON) 20 mEq tablet Take 2 tablets by mouth twice daily. pantoprazole DR (PROTONIX) 40 mg tablet TAKE 1 TABLET BY MOUTH ONCE DAILY. TAKE ON EMPTY STOMACH 1/2 HOUR BEFORE MEAL. amLODIPine (NORVASC) 2.5 mg tablet Take one tablet daily in addition to 5 mg to equal 7.5 mg daily metFORMIN (GLUCOPHAGE) 500 mg tablet Take 1 tablet by mouth twice daily with meals. . alendronate (FOSAMAX) 70 mg tablet Take 1 tablet by mouth one time a week. Take with a full glass of water, on an empty stomach; do NOT lie down for 30minutes. labetalol (TRANDATE) 200 mg tablet Take 1 tablet by mouth twice daily. blood sugar diagnostic (BLOOD GLUCOSE TEST) test strip Test blood sugar(s) 1 times daily. Dx: Prediabetes Insulin: No Lancets lancets Test blood sugar(s) 1 times daily. Dx: Prediabetes Insulin: No levothyroxine (SYNTHROID) 88 mcg tablet TAKE 1 TABLET EVERY DAY amLODIPine (NORVASC) 5 mg tablet TAKE 1 TABLET EVERY DAY ondansetron orally disintegrating (ZOFRAN ODT) 4 mg disintegrating tablet Take 1 tablet by mouth every 6 hours as needed for Nausea/Vomiting. meclizine (ANTIVERT) 25 mg tab Take 1 tablet by mouth three times daily as needed (vertigo). Biotin 2,500 mcg cap Take 1 capsule by mouth once daily. aspirin, enteric coated (ASPIRIN, ENTERIC COATED) 81 mg EC tablet Take 81 mg by mouth once daily. calcium carbonate-Vit D3-minerals (CALCIUM 600 + MINERALS) 600 mg calcium- 400 unit tab Take 2 tablets by mouth once daily. gabapentin (NEURONTIN) 300 mg capsule Take 1 capsule by mouth twice daily as needed for up to 90 days. Do not start before November 12, 2021. polyethylene glycol 3350 (MIRALAX, GLYCOLAX) 17 gram/dose powder Use as directed for Miralax / Gatorade Bowel Prep Kit (Patient taking differently: 17 g once daily. Use as directed for Miralax / Gatorade Bowel Prep Kit ) Bifidobacterium infantis (ALIGN ORAL) Take by mouth once daily. (Patient not taking: Reported on 11/24/2021 ) 0.9 % sodium chloride (NACL 0.9%) 0.9% solp Infuse 500 ml IV over [address] Current Facility-Administered Medications Medication Dose Route Frequency perflutren lipid microspheres 1.3 mL in NaCl (PF) 0.9% 10 mL injection (DEFINITY) INTRAVENOUS DIRECTED PRN sodium chloride 0.9 % (flush) 10 mL (BD POSIFLUSH) 10 mL INTRAVENOUS DIRECTED PRN Allergies: Codeine, Aceon [Perindopril Erbumine], Beta Blockers [Other], Hctz [Other], Imdur [Isosorbide], Lipitor [Atorvastatin Calcium], Lisinopril, and Spironolactone ROS: General (negative for fatigue, malaise, weight loss/gain) HEENT (negative for headache, earache, recent vision changes, sinus pain, sore throat) Respiratory (no recent shortness of breath, hemoptysis) CV (negative for chest tightness, palpitations) Musculoskeletal (see HPI) Psych (no depression, anxiety) Abhishek Yi MD documented in this encounterPremier [facility]08-10-2022 History of Present illness Narrative* Tonia Naik RN - 06/15/2022 11:30 AM EDT PRIMARY CARE COORDINATION QUICK NOTE Provider Action/CHAD Singer this is Tonia Naik RN your nurse Efficiency Engineer. I am calling to provide you with a phone number to connect you with [facility] services. This number is available 7 days a week [id number] and provides you with one call access to nursing, appointments, and other valuable resources. I can also send this information to your MyChart. Please take the time to write this number down . Patient identified by name and date . documented in this encounterPremier Health [facility] Hospital08-09-2022 History of Present illness Narrative* Tonia Naik RN - 06/14/2022 10:13 AM EDT PRIMARY CARE COORDINATION QUICK NOTE Provider Action/CHAD Singer this is Tonia Naik RN your nurse Efficiency Engineer. I am calling to review a new message with you, sorry we missed you and we will reach out again. Patient identified by name and date . documented in this encounterPremier Health [facility]08-04-2022 Miscellaneous Notes* Telephone Encounter - Cyndi Watson Pss - 06/09/2022 11:43 AM EDT Pharmacy verified in [facility] Patient has been identified by name and date of : Yes Patient aware RX will be sent to pharmacy. No need to notify patient. Patient phones for refill(s): Pending Prescriptions Disp Refills POTASSIUM CHLORIDE ER 20 MEQ TABLET,EXTENDED RELEASE(PART/CRYST) 180 tablet 1 Sig: Take 2 tablets by mouth twice daily. ESTEFANY: No Date of last office visit : 04/25/2022 Date of next office visit : 10/24/2022 Last 2 Encounter Wt Readings: Date: Wt: 04/25/2022 79.9 kg (176 lb 3.2 oz) 03/28/2022 79.8 kg (176 lb) Please advise. Cyndi Watson Pss documented in this encounterPremier Health [facility]08-03-2022 History of Present illness Narrative* Juli Ralph LPN - 06/08/2022 10:03 AM EDT Manual Readin/69 Pulse: 61 Reason for blood pressure check - Last BP elevated and Medication adjustment Patient is: Taking medication as prescribed Yes Took medication today Yes If no, date medication last taken N/A Experiencing side effects No BP continued to be elevated at nurse visit 05/10/22. Amlodipine was increased to 7.5mg daily. Tolerating medication change well. Denies any chest pain, shortness of breath, dizziness, or headaches. Drinks decaf. Past personal history of tobacco use; no current exposure. Alert and oriented. Pt has been identified by name and birthdate: Yes Allergies reviewed: Yes Latex allergy: no. Medication - prescribed and OTC reviewed and updated: Yes Do you need any prescription refills prior to your next visit: No Health Maintenance: Reviewed and not up to date and provider notified Patient advised to continue with current medications and would be contacted after review by PCP. Juli Ralph LPN documented in this encounterPremier Health [facility]08-01-2022 History of Present illness Narrative* Tonia Naik RN - 06/06/2022 9:00 AM EDT INSIGHT CDM TELEPHONIC OUTREACH Provider Action/FYI: Contact made with patient: Yes Patient identified by name and . Discussed care with patient It s nice talking to you again. As a reminder, this is our bi-weekly check-in where I will be asking you questions about your health. This will only take a few minutes of your time. Is this a good time? Yes Symptoms What Chronic Disease(s) does the patient have: CKD Do you check your blood pressures at home? Yes, Enter readings: 120/52 Do you have new or worse shortness of breath with activity? No Do you feel like you are dehydrated for any reason, including not being able to eat or drink normally, or having less urine/much darker urine than normal for you? No Do you check your daily weight at home? No Are you having any other symptoms that your PCP needs to know about? No Symptom Escalation The patient required an escalation for symptom(s)? No Medications Do you have any questions about taking your medication or which medications you should be on? No Do you need any medication refills at this time, including any of the medications you might take only when needed? No Social We would like to make sure you have what you need so that your basic needs are met- including your personal safety, food, housing and medications? Would you like to speak with a social work seam steamer to help give you support for any of these needs? No It can be normal to feel anxious or down during a time like this. Would you like to talk to a mental health professional about how you have been feeling? No Closing Thank you for taking the time to talk with me today. We want to work with you to ensure that we arekeeping your medical condition(s) well-controlled and to keep you healthy and out of the doctor's office or hospital. It s also not too late for me to sign you up for automated weekly questionnaires through [employer]. This is an easy way for us to stay connected each week. Are you interested? No, I understand. We can always sign you up in the future if you change your mind. Just as a reminder, will continue to call you every other week to check in on your health. Our calls should take 10-15 minutes or less. Remember, if you have concerns in between our calls, please call your PCP's office right away. Thank you. Enter next patient outreach date for two weeks on the same day of the week as today in the Track PtOutreach and End outreach. documented in this encounterPremier Health [facility] Hospital07-11-2022 History of Present illness Narrative* Ana Robin MA - 05/16/2022 12:55 PM EDT POPULATION HEALTH NAVIGATION OUTREACH Action/I Patient due soon for Mammogram (10/11) Call placed to patient - agreeable to schedule mammogram. Pt identified by name and : YES, via phone Outreach Outcome/Action Spoke to patient or caregiver: Patient scheduled Did you use a PCP flex slot to schedule this appointment? N/A Reason for Outreach Care Gap or Scheduling/Wellness visits Payer: Payor: [employer] MEDICARE / Plan: [employer] / Product Type: HMO / Care Gap Reviewed:: Breast Cancer screening Reminder: Reminder note to check Health Maintenance for items below Health Maintenance items due: DTAP,TDAP,TD(1 - Tdap) Never done SHINGRIX VACCINE(1 of 2) Never done ADVANCE DIRECTIVE DISCUSSION Never done DEPRESSION SCREENING due on 02/06/2022 BP CONTROLLED (<130/80) due on 03/23/2022 Message Sent to Practice: No Navigation Signature: Ana Robin, Population Health Navigator May 16, 2022 12:55 PM documented in this encounterPremier Health [facility] Hospital07-08-2022 History of Present illness Narrative* Tonia Naik RN - 05/13/2022 11:45 AM EDT [facility] CDM Enrollment Provider Action/FYI: Patient referred by: [facility] Priyanka Contact made with patient: Yes - Patient identified by name and . Discussed care with patient Enmanuel this is Tonia Naik RN and I am calling from Elisa Starr MD office at the [facility]. I am a RN Efficiency Engineer with our [facility] Chronic Disease Management program. Elisa Starr MD wanted me to reach out to help you manage your health at home. Our goal is to keep you well at home. We want to help you manage your chronic disease by providing a safety net of resources around you, getting you the care you need in a timely manner, and hopefully keep you out of the ED and hospital. I will send you a few questions once a week through your Any[employer] account. It will automatically show up for you to complete. There are simple questions that will help us identify if you have any concerns or symptoms and I will call you to help get what you need. We will be able to connect you, review your symptoms, do an on demand visit, or communicate with Elisa Starr MD if needed. I am going to sign you up for the program now. Enrollment Questions: Let's get you enrolled in the program. Yes, Do you have regular access to a computer/smartphone? No, Are you offering patient a biweekly phone call? yes/no: Yes. Goal Setting: I would like to take some time today to discuss your personal health goals. Patient does not have a goal. We will review during our next conversations to help support you. Most people know what to do to become healthier, yet struggle to put it into action on their own.Itcan be hard to maintain a healthy lifestyle, especially when life is so stressful. Can we connect you with a [facility] Health Bird Tender to find a program that could help you meet your goals? No Closing: Patient accepts telephonic outreach Thank you for your time today. I am excited to work together inmanaging your health! I will check back within in two weeks to see how things are going. If questions or concerns arise between phone calls, please reach out to your PCP s office. (Place in active status for [facility] and place name in care team and update next patient outreach data to next business d ay two weeks from today s date) documented in this encounterPremier Health [facility] Hospital07-08-2022 Evaluation note* Diagnosis Stage 3a chronic kidney disease (HCC)- Primary documented in this encounter [facility]07-06-2022 Miscellaneous Notes* Telephone Encounter - Anusha Frey RN - 05/11/2022 4:59 PM EDT Pt called and is notified of providers message and instructions. Pt voices understanding. Anusha Frey RN * Telephone Encounter - Elizabeth Og APRN.CNP - 05/11/2022 4:53 PM EDT Prescription sent to [facility]. She can warehouse picker a 30 day supply at [facility] unless [facility] is quick about getting there prescription sent. If it is going to take them a week to get it to her then we may need to push back the date of the BP check. I would like her to be taking it for 2 weeks prior to coming in. Thanks, Elizabeth Og APRN.CNP * Telephone Encounter - Anusha Frey RN - 05/11/2022 4:49 PM EDT Pt called and is notified of providers message and instructions. Pt voices understanding. BP check made 06/08/22 at 1000 am. Pt asking that new Rx be sent to [facility]. Anusha Frey, RN * Telephone Encounter - Elizabeth Og APRN.CONSTANTINO - 05/11/2022 4:26 PM EDT BP still elevated above goal. Increase Norvasc to 7.5 mg daily. I will sent over 2.5 mg tablets shecan take with the 5 mg tablets. Recheck BP in one month with nurse visit. Thanks, Elizabeth Og APRN.CONSTANTINO * Telephone Encounter - Juli Ralph LPN - 05/10/2022 2:32 PM EDT Manual Readin/77 Pulse: 63 BP Guillermo average: 148/75 P: 62 Repeat BP Check: 149/74 P63 #1 153/77 P64 #2 153/76 P64 #3 137/74 P60 #4 149/75 P60 #5 149/75 P62 #6 Reason for blood pressure check - Last BP elevated Patient is: Taking medication as prescribed Yes Took medication today Yes If no, date medication last taken N/A Experiencing side effects No BP was elevated at last appt 04/25/22. No BP medication changes were made at that time. Taking all medications as prescribed. Denies any chest pain, shortness of breath, dizziness, or headaches. Drinks decaf. Past personal history of tobacco use; no current exposure. Alert and oriented. Pt has been identified by name and birthdate: Yes Allergies reviewed: Yes Latex allergy: no. Medication - prescribed and OTC reviewed and updated: Yes Do you need any prescription refills prior to your next visit: No Health Maintenance: Reviewed and not up to date and provider notified Patient advised that she would be contacted after review by Dr process controls technician. Juli Ralph LPN documented in this encounterDenise [place]ille [id number] Miscellaneous Notes* Telephone Encounter - Anusha Frey RN - 05/11/2022 4:59 PM EDT Pt called and is notified of providers message. Pt voices understanding. Anusha Frey RN * Telephone Encounter - Vangie Gonzalez LPN - 05/11/2022 1:28 PM EDT Message left for patient. * Telephone Encounter - Elizabeth Og APRN.CONSTANTINO - 05/11/2022 12:27 PM EDT Prescription for pantoprazole sent. Thanks, Elizabeth Og APRN.CONSTANTINO * Telephone Encounter - Pascale Erickson Ma - 05/11/2022 10:47 AM EDT See pt message and advise. Last OV: 04/25/22 Last Rx: 09/16/21 #90 w/3. Pascale Erickson Ma * Telephone Encounter - Sharifa Jones - 05/11/2022 10:30 AM EDT Patient called to refill pantoprazole; noted as discontinued med. She insists she has never stoppedthis medication. Uses [facility] mail order. documented in this encounterPremier Health [facility]07-05-2022 History of Present illness Narrative* Juli Ralph LPN - 05/10/2022 2:16 PM EDT Manual Readin/77 Pulse: 63 BP Guillermo average: 148/75 P: 62 Repeat BP Check: 149/74 P63 #1 153/77 P64 #2 153/76 P64 #3 137/74 P60 #4 149/75 P60 #5 149/75 P62 #6 Reason for blood pressure check - Last BP elevated Patient is: Taking medication as prescribed Yes Took medication today Yes If no, date medication last taken N/A Experiencing side effects No BP was elevated at last appt 04/25/22. No BP medication changes were made at that time. Taking all medications as prescribed. Denies any chest pain, shortness of breath, dizziness, or headaches. Drinks decaf. Past personal history of tobacco use; no current exposure. Alert and oriented. Pt has been identified by name and birthdate: Yes Allergies reviewed: Yes Latex allergy: no. Medication - prescribed and OTC reviewed and updated: Yes Do you need any prescription refills prior to your next visit: No Health Maintenance: Reviewed and not up to date and provider notified Patient advised that she would be contacted after review by Dr process controls technician. Juli Ralph LPN documented in this encounterPremier Health Miami Valley [facility] Miscellaneous Notes* Telephone Encounter - Gia Wilson LPN - 04/27/2022 10:12 AM EDT Spoke with pt and information listed below given. Pt verbalizes understanding. 6 month OV scheduled. Gia Wilson LPN * Telephone Encounter - Anusha Frey RN - 04/27/2022 9:50 AM EDT Called and left a voicemail for the Patient to call back and ask for a nurse to receive the providers message. Anusha Frey RN * Telephone Encounter - Elisa Starr MD - 04/27/2022 8:46 AM EDT Rx sent to mail order pharmacy. Repeat labs ordered for 6 months from now. Recommend OV in 6 months. * Telephone Encounter - Anusha Frey RN - 04/27/2022 8:40 AM EDT Pt called and is notified of providers results and instructions. Pt voices understanding. She states she will take the Metformin, but she is going to decrease her sugar and carb intake. Pt reports she is going to keep taking the Valtrex, but the redness is gone and her ankle is still sore. She states you can't tell she has any swelling today, but she thinks she is retaining water. Patient has been identified by name and date of : Yes Patient phones for refill(s): Pending Prescriptions Disp Refills METFORMIN 500 MG TABLET 60 tablet 11 Sig: Take 1 tablet by mouth twice daily with meals. . Date of last office visit in primary care: 04/25/22 Future visit: none Last 2 Encounter Wt Readings: Date: Wt: 04/25/2022 79.9 kg (176 lb 3.2 oz) 03/28/2022 79.8 kg (176 lb) Previous labs/tests for medication: Diabetes: Hemoglobin A1C (%) Date Value 04/25/2022 6.2 09/27/2019 6.2 03/22/2018 6.0 Please advise. Thank you. Anusha Frey RN * Telephone Encounter - Vangie Gonzalez LPN - 04/26/2022 10:50 AM EDT Message left to call back for update. * Telephone Encounter - Elisa Starr MD - 04/26/2022 10:21 AM EDT Uric acid level normal which rules out gout flare. Kidney function stable. Negative for signs of infection. A1C remains in the prediabetic range at 6.2. Would recommend adding on metformin 500 mg BID to regimen to help lower her sugar levels. Most common side effect is diarrhea. If agreeable, will place order. recommend she continue valtrex for possible shingles rash and call if spreading or she develops newblisters, streaking up her leg, fever/chills. documented in this encounterPrem[facility] History of Present illness Narrative* Elisa Starr MD - 04/25/2022 3:42 PM EDT Chief Complaint Patient presents with: Blood Pressure: Elevated BP x3 weeks Right ankle swelling HPI Tashia Fernandez is a 72 year old female who presents here today for Above Complaints.. Patient also complaining of right ankle swelling yesterday with rash on the medial aspect which is tender to touch. Ankle felt hot to the touch and was painful to move it. Did go to [place] to see her brother and sister over the weekend. Denies fever/chills, fall/injury, change in diet, alcohol use, sugary drinks, red meat/seafood. States she has had this rash years ago and even had biopsy by Dr. Alvarez. Treated with cream which she cannot recall the name of. Also notes that she has had some higher BP readings in the last couple of days up to 167/86. Associated with feeling of weakness. Denies chest pain, SOB, headache, vision changes, LE edema. Avoiding salt in her diet and is not drinking caffeine. Sugars haven't been higher than 115. Past medical history, appointments, medications, allergies reviewed. Previous Medical History PAST MEDICAL HISTORY Diagnosis Date Contact dermatitis and other eczema Degenerative arthritis of knee 05/24/2011 Delayed gastric emptying 07/24/2012 Diarrhea Diverticulitis Diverticulosis of colon (without mention of hemorrhage) Diverticulosis Dysphagia, unspecified 08/29/2017 Elevated alkaline phosphatase level 07/12/2018 Essential hypertension, benign Hyperlipidemia Hypokalemia 09/25/2012 Impaired fasting glucose 11/19/2015 Inadequate pelvic muscles 01/17/2012 Lumbar disc disease with radiculopathy 09/01/2016 Lung nodule < 6cm on CT 10/15/2018 10/07/18: incidental 4.5 mm nodule RML thyrotoxicosis Nonrheumatic mitral (valve) insufficiency Other osteoporosis 12/21/2006 Paroxysmal SVT (supraventricular tachycardia) (HCC) Personal history of colonic polyps Colon polyps POLYP STOMACH 07/13/2007 Stage 3a chronic kidney disease (HCC) 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--surgery not needed (2016) Tethering of spinal cord (HCC) 2014 Trigeminal neuralgia 10/11/2011 Trochanteric bursitis of left hip 07/24/2012 Unspecified hemorrhoids without mention of complication Hemorrhoids Previous Surgical History PAST SURGICAL HISTORY Procedure Laterality Date COLONOSCOPY FLX DX W/COLLJ SPEC WHEN PFRMD 12/2018 Colonoscopy COLONOSCOPY FLX DX W/COLLJ SPEC WHEN PFRMD 07/13/2007 Lax colon COLONOSCOPY FLX DX W/COLLJ SPEC WHEN PFRMD 03/26/2014 Colonoscopy COLONOSCOPY FLX DX W/COLLJ SPEC WHEN PFRMD 12/2018 [id number] 10 years COLONOSCOPY GEN ANES 04/28/2021 DECOMPRESSION PLANTAR DIGITAL NERVE 1999 heel spur/ plantar fasciitis repair Rt EGD 06/02/2021 EGD TRANSORAL BIOPSY SINGLE/MULTIPLE 07/13/2007 Gastritis, fundic gland polyps ESOPHAGOGASTRODUODENOSCOPY TRANSORAL DIAGNOSTIC 03/26/2014 EGD LAPAROSCOPY SURG CHOLECYSTECTOMY Cholecystectomy, lap LIG/TRNSXJ FLP TUBE ABDL/VAG APPR UNI/BI NEUROPLASTY &/TRANSPOS MEDIAN NRV CARPAL TUNNE Carpal tunnel decomp bilateral OPEN REPAIR OF ROTATOR CUFF ACUTE 1992 Rotator cuff repair, right STRESS TEST,COMPLETE_*FL Family History FAMILY HISTORY Problem Relation Age of Onset Diabetes Mother Heart Mother Stroke Mother Hypertension Mother other (MVA) Father Hypertension Sister Heart Sister Hypertension Sister Heart Sister Hypertension Brother Heart Brother Hypertension Brother Cancer Brother Cancer Paternal Grandfather skin Breast Cancer Maternal Aunt Patient Allergies ALLERGIES Allergen Reactions Codeine Intolerance Chest pain Aceon [Perindopril * Rash, Cough Beta Blockers [Othe* Cough dry hacking cough Hctz [Other] Rash Imdur [Isosorbide] Other: See Comments headaches Lipitor [Atorvastat* Other: See Comments muscle cramps Lisinopril Cough dry hacking cough Spironolactone Other: See Comments headache Current Medications Current Outpatient Medications on File Prior to Visit Medication Sig potassium chloride ER (K-DUR, KLOR-CON) 20 mEq tablet Take 2 tablets by mouth twice daily. calcium carbonate-Vit D3-minerals (CALCIUM 600 + MINERALS) 600 mg calcium- 400 unit tab Take 2 tablets by mouth once daily. alendronate (FOSAMAX) 70 mg tablet Take 1 tablet by mouth one time a week. Take with a full glass of water, on an empty stomach; do NOT lie down for 30minutes. labetalol (TRANDATE) 200 mg tablet Take 1 tablet by mouth twice daily. gabapentin (NEURONTIN) 300 mg capsule Take 1 capsule by mouth twice daily as needed for up to 90 days. Do not start before November 12, 2021. Lancets lancets Test blood sugar(s) 1 times daily. Dx: Prediabetes Insulin: No levothyroxine (SYNTHROID) 88 mcg tablet TAKE 1 TABLET EVERY DAY amLODIPine (NORVASC) 5 mg tablet TAKE 1 TABLET EVERY DAY losartan (COZAAR) 100 mg tablet TAKE 1 TABLET EVERY DAY ondansetron orally disintegrating (ZOFRAN ODT) 4 mg disintegrating tablet Take 1 tablet by mouth every 6 hours as needed for Nausea/Vomiting. meclizine (ANTIVERT) 25 mg tab Take 1 tablet by mouth three times daily as needed (vertigo). Biotin 2,500 mcg cap Take 1 capsule by mouth once daily. aspirin, enteric coated (ASPIRIN, ENTERIC COATED) 81 mg EC tablet Take 81 mg by mouth once daily. blood sugar diagnostic (BLOOD GLUCOSE TEST) test strip Test blood sugar(s) 1 times daily. Dx: Prediabetes Insulin: No polyethylene glycol 3350 (MIRALAX, GLYCOLAX) 17 gram/dose powder Use as directed for Miralax / Gatorade Bowel Prep Kit (Patient taking differently: 17 g once daily. Use as directed for Miralax / Gatorade Bowel Prep Kit ) Bifidobacterium infantis (ALIGN ORAL) Take by mouth once daily. (Patient not taking: Reported on 11/24/2021 ) 0.9 % sodium chloride (NACL 0.9%) 0.9% solp Infuse 500 ml IV over [address]. Current Facility-Administered Medications on File Prior to Visit Medication perflutren lipid microspheres 1.3 mL in NaCl (PF) 0.9% 10 mL injection (DEFINITY) sodium chloride 0.9 % (flush) 10 mL (BD POSIFLUSH) Social History Social History Tobacco Use Smoking status: Former Smoker Packs/day: 0.10 Years: 1.00 Pack years: 0.10 Types: Cigarettes Smokeless tobacco: Never Used Tobacco comment: Smoked 1 year or less in 1980s. Spouse was smoker in home for 39 years. Father smoked in childhood home. Vaping Use Vaping Use: Never used Substance Use Topics Alcohol use: No Drug use: No Review of Symptoms REVIEW OF SYSTEMS See HPI EXAM: BP 148/78 Pulse 69 Temp 36.5 C (97.7 F) Resp 18 Wt 79.9 kg (176 lb 3.2 oz) SpO2 97% BMI34.41 kg/m General Appearance: Well appearing, alert, in no acute distress, well-hydrated, well nourished.. Skin: patchy macular rash the size of a baseball on right lateral ankle without pustules or vesicles. TTP without warmth to touch. No fluctuance. Extremities: No deformities, edema, skin discoloration, clubbing or cyanosis. Good capillary refill. . Musculoskeletal: No joint swelling, deformity, or tenderness. Health Maintenance List DTAP,TDAP,TD(1 - Tdap) Never done SHINGRIX VACCINE(1 of 2) Never done ADVANCE DIRECTIVE DISCUSSION Never done DEPRESSION SCREENING due on 02/06/2022 BP CONTROLLED (<130/80) due on 03/23/2022 LDL CHOLESTEROL due on 07/19/2022 MAMMOGRAM due on 10/11/2022 ANNUAL PCP TEAM CHRONIC DISEASE VISIT due on 01/05/2023 SERUM CREATININE due on 01/05/2023 HEMOGLOBIN/HEMATOCRIT due on 01/05/2023 DIABETES SCREEN due on 01/05/2025 LIPID SCREEN due on 07/19/2026 COLORECTAL CANCER SCREENING due on 04/28/2031 BONE DENSITY Completed INFLUENZA Completed HEPATITIS C SCREENING Completed COVID-19 VACCINE Completed PNEUMOCOCCAL: 65+ Completed ASSESSMENT/PLAN: 1. Ankle swelling, right - ICD9: 719.07, ICD10: M25.471 (primary diagnosis) Swelling has resolved. Possible gout flare, will obtain labs and have patient treat with RICE therapy and OTC analgesics. - CBC + DIFF - URIC ACID BLOOD - COMP METABOLIC PANEL 2. Generalized weakness - ICD9: 780.79, ICD10: R53.1 Normal exam today. May be 2/2 HTN, but will recheck A1c and rule out anemia/infection. - HGB A1C 3. Essential hypertension, benign - ICD9: 401.1, ICD10: I10 High BP at home in the last couple days with ankle pain. Will continue current regimen and recheck in 2 weeks at [place]. 4. Herpes zoster without complication - ICD9: 053.9, ICD10: B02.9 Rash is possibly early shingles. Will treat with valtrex and have patient treat any itching with OTC hydrocortisone cream. Red flags for re-assessment reviewed with patient in detail. - VALACYCLOVIR 1 GRAM TABLET Elisa Starr MD documented in this encounterPrem[facility]-20-[facility] Miscellaneous Notes* Telephone Encounter - Elisa Starr MD - 04/25/2022 11:13 AM EDT Reviewed. Will discuss at OV today. * Telephone Encounter - Nurys Gavin RN - 04/25/2022 10:47 AM EDT Called and spoke with patient regarding her concerns. Patient has appointment scheduled with provider today. Patient reports that her blood pressure has been running on the higher side. Last night was 130/49 and this morning it was 160/79. Patient states that her right ankle is swollen and painful.Patient states that there is a red rash near ankle. Patient states that she does have some shortness of breath with exertion but that is normal. Patient states that she has been coughing at night so her daughter is concerned that she has fluid on her lungs. Nurys Gavin RN documented in this encounterPrem[facility]05-31-2022 Miscellaneous Notes* Telephone Encounter - MARLI Cooper - 04/05/2022 10:55 AM EDT SANJEEV 01/05/2022 No appointment scheduled at this time Please advise. Thank you. MARLI Cooper * Telephone Encounter - Thao Jones - 04/05/2022 8:10 AM EDT Patient has been identified by name and date of : Yes Last office visit in this department: 01/05/2022 RX INSTRUCTIONS: Patient aware RX escripted to mail away pharmacy. No need to notify patient. Patient phones requesting refills as follows: Pending Prescriptions Disp Refills POTASSIUM CHLORIDE ER 20 MEQ TABLET,EXTENDED RELEASE(PART/CRYST) 180 tablet 1 Sig: Take 2 tablets by mouth twice daily. ESTEFANY: No Please review and advise. Thao Small Pss documented in this encounterPrem[facility]05-23-2022 History of Present illness Narrative* Rafael Taylor MD - 03/28/2022 10:30 AM EDT SPINE SURGERY ESTABLISHED DATE OF SERVICE: 03/28/2022 DATE OF LAST VISIT: 02/28/2022 SUBJECTIVE: HPI:Tashia Fernandez is a 71 year old female presenting alone. At [facility] she complained of neck pain, arm pain, and hand weakness. At that time plan was to obtain cervical MRI and follow up. Today she states her neck pain is improved. 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 She denies dexterty problems. She has been doing massages that have helped. Pain worse when using her hands. She has hx carpal tunnel. Pain Radiation: Neck to bilateral arms Aggravating Factors: Activity Alleviating Factors: messages AMBULATORY STATUS: Impaired Community Distances ANTIPLATELET OR ANTICOAGULATION STATUS: Yes ASA PREVIOUS CONSERVATIVE TREATMENTS: Messages Tylenol Gabapentin REVIEW OF SYSTEMS: GENERAL: No weight loss or malaise MUSCULOSKELETAL: + neck pain, + arm pain NEURO: No history of headaches, syncope, paralysis, seizures or tremors MEDICATIONS: calcium carbonate-Vit D3-minerals (CALCIUM 600 + MINERALS) 600 mg calcium- 400 unit tab Take 2 tablets by mouth once daily. alendronate (FOSAMAX) 70 mg tablet Take 1 tablet by mouth one time a week. Take with a full glass of water, on an empty stomach; do NOT lie down for 30minutes. labetalol (TRANDATE) 200 mg tablet Take 1 tablet by mouth twice daily. potassium chloride ER (K-DUR, KLOR-CON) 20 mEq tablet Take 2 tablets by mouth twice daily. gabapentin (NEURONTIN) 300 mg capsule Take 1 capsule by mouth twice daily as needed for up to 90 days. Do not start before November 12, 2021. blood sugar diagnostic (BLOOD GLUCOSE TEST) test strip Test blood sugar(s) 1 times daily. Dx: Prediabetes Insulin: No Lancets lancets Test blood sugar(s) 1 times daily. Dx: Prediabetes Insulin: No levothyroxine (SYNTHROID) 88 mcg tablet TAKE 1 TABLET EVERY DAY amLODIPine (NORVASC) 5 mg tablet TAKE 1 TABLET EVERY DAY losartan (COZAAR) 100 mg tablet TAKE 1 TABLET EVERY DAY polyethylene glycol 3350 (MIRALAX, GLYCOLAX) 17 gram/dose powder Use as directed for Miralax / Gatorade Bowel Prep Kit Bifidobacterium infantis (ALIGN ORAL) Take by mouth once daily. ondansetron orally disintegrating (ZOFRAN ODT) 4 mg disintegrating tablet Take 1 tablet by mouth every 6 hours as needed for Nausea/Vomiting. 0.9 % sodium chloride (NACL 0.9%) 0.9% solp Infuse 500 ml IV over [address] meclizine (ANTIVERT) 25 mg tab Take 1 tablet by mouth three times daily as needed (vertigo). Biotin 2,500 mcg cap Take 1 capsule by mouth once daily. aspirin, enteric coated (ASPIRIN, ENTERIC COATED) 81 mg EC tablet Take 81 mg by mouth once daily. Patient Entered Questionnaires PROMIS Score Percentiles PROMIS Global Health Scale 03/17/2016 10/12/2016 07/26/2017 Physical Health Percentile 53 31 22* Mental Health Percentile 34 26* 34 Percentiles provide an indication of how the patient's score ranks in relation to the general population. Higher percentile rankings indicate better function/quality of life. 50th percentile is the average of the general population and indicates half of respondents had a worse score. Depression Screening: PHQ-9 02/15/2016 10/12/2016 07/26/2017 Score 2 5 2 PHQ-9 Self-harm Question 02/15/2016 10/12/2016 07/26/2017 Thoughts that you would be better off , or of hurting yourself in some way 0 0 Not at all PHQ-9 Self-Harm (Item 9) response options: 0 Not at all 1 Several days 2 More than half the days 3 Nearly every day PHQ-9 Levels: 0-4 No to mild depression 5-9 Mild depression 10-14 Moderate depression 15-19 Moderately severe depression 20-27 Severe depression OBJECTIVE: PHYSICAL EXAM: There were no vitals taken for this visit. BP 147/65 Pulse 64 Ht 152.4 cm (5') Wt 79.8 kg (176 lb) SpO2 99% BMI 34.37 kg/m GENERAL APPEARANCE: Well nourished, well developed, and no apparent distress. NEURO PSYCH: Patient oriented to person, place, and time. Mood pleasant. Benign affect. MUSCULOSKELETAL VISUAL INSPECTION CERVICAL: WNL THORACIC: WNL LUMBAR: WNL MOTOR: 5/5 in all muscle groups. SENSORY: Normal sensory exam GAIT: Normal. NEURO TESTS: None DATA REVIEW:Diagnostic tests reviewed for today's visit, films/specimens were personally reviewed by me: [facility] records independently reviewed Imaging and outside records independently reviewed Images independently reviewed with the patient Cervical MRI Cervical spondylosis most notable for mild to moderate spinal canal narrowing at C5-6 without cordcompression, and for multilevel foraminal narrowing worst at C5-6. Anatomic Variant: None. Assume 7 cervical vertebrae with counting from the craniocervical junction. ASSESSMENT/PLAN Ms. Fernandez presents with cervical spondylosis, pain improved with conservative measures. Tashia Fernandez will continue with medical management of his/her condition. 1. No Orders Entered Today 2. Follow up: PRN I spent a total of 10 minutes on the date of the service which included preparing to see the patient, [id number] patient care, completing clinical documentation, obtaining and/or reviewing separately obtained history, performing a medically appropriate examination, counseling and educating the pat ient/family/caregiver and ordering medications, tests, or procedures. SIGNATURE: Rafael Taylor MD PATIENT NAME: Tashia Fernandez DATE: March 28, 2022 TIME: 7:53 AM PAGER: documented in this encounterPremier Health [facility]05-10-2022 History of Present illness Narrative* Rachel Earl RT(R) - 03/15/2022 8:00 AM EDT Radiology Service Progress Note PATIENT NAME: Tashia Fernandez DATE OF SERVICE: March 15, 2022 TIME: 8:05 AM PATIENT IDENTITY VERIFICATION COMPLETED USING TWO (2) IDENTIFIERS: Name and Date of confirmedby patient verbally. FALL SCREENING: Has the patient had 2 falls in the last year or 1 fall with injury or currently using an Ambulatory Assistive Device (Walker, Cane, Wheelchair, Crutches, etc.)? No PATIENT GENDER DATA: Female. status: : No status: NO. PATIENT RELEVANT IMPLANT DATA REVIEWED: Yes RADIOLOGY DEPARTMENT: MR; Exam(s) Completed: Spine: Cervical spine PERIPHERAL IV DATA: Not applicable SIGNED BY: RT Dawna(R) March 15, 2022 8:05 AM documented in this encounterPremier Health [facility]04-25-2022 History of Present illness Narrative* Rafael Taylor MD - 02/28/2022 10:10 AM EDT Images from the original note were not included. SPINE SURGERY NEW PATIENT PCP: Elisa Starr MD REFERRING PROVIDER: Dr Starr SUBJECTIVE HISTORY OF PRESENT ILLNESS: Tashia Fernandez is a 71 year old female presenting alone. CHIEF COMPLAINT: neck, arm pain PRECIPITATING EVENT: None DURATION OF SYMPTOMS: Greater Than 6 Months She was previously seen by Dr Taylor, 07/2017 where she complained of mid back. She also had some functional incontinence. Today she is having weakness in her hands for 6 months, as well as neck and arm pain. Arm pain worse with movement. Denies any numbness. She had a massage which relieved some of her pain. She is supposed to have follow up with cardiology. Recently wore ziopatch. PAIN EVALUATION 02/28/2022 1033 Pain Level: 4 Pain Location: Neck KATH Arm pain Description: Sharp Duration Units: Unknown Frequency: Continuous Intervention/Comfort measure: Massage AMBULATORY STATUS: Independent Community Distances ANTIPLATELET OR ANTICOAGULATION STATUS: No PREVIOUS CONSERVATIVE TREATMENTS: tylenol gabapentin PREVIOUS SPINAL SURGERY: None ACTIVE PROBLEM LIST Htn (Hypertension) Postablative Hypothyroidism Osteoporosis Degeneration of Cervical Intervertebral Disc Degenerative Arthritis of Knee Trigeminal Neuralgia Inadequate Pelvic Muscles Mixed Stress and Urge Urinary Incontinence Uterine Prolapse Cystocele, Midline Gastroesophageal Reflux Disease Delayed Gastric Emptying Chronic Hypokalemia Thoracic Radiculopathy Due to Degenerative Joint Disease of Spine Tethered Spinal Cord (Hcc) Poor Sleep Hygiene Impaired Fasting Glucose Lumbar Disc Disease With Radiculopathy Venous Insufficiency (Chronic) (Peripheral) Chronic Left Shoulder Pain Lung Nodule < 6cm On CT Stage 3a Chronic Kidney Disease (Hcc) Unstable Angina (Hcc) Ashd (Arteriosclerotic Heart Disease) Obesity, Class I, Bmi 30-34.9 Encounter for Hydration Prior to CT Scan Cervical Radiculopathy Diverticulitis Epigastric Abdominal Pain Valvular Heart Disease Hld (Hyperlipidemia) Paroxysmal Svt (Supraventricular Tachycardia) (Hcc) PAST MEDICAL HISTORY Diagnosis Date Contact dermatitis and other eczema Degenerative arthritis of knee 05/24/2011 Delayed gastric emptying 07/24/2012 Diarrhea Diverticulitis Diverticulosis of colon (without mention of hemorrhage) Diverticulosis Dysphagia, unspecified 08/29/2017 Elevated alkaline phosphatase level 07/12/2018 Essential hypertension, benign Hyperlipidemia Hypokalemia 09/25/2012 Impaired fasting glucose 11/19/2015 Inadequate pelvic muscles 01/17/2012 Lumbar disc disease with radiculopathy 09/01/2016 Lung nodule < 6cm on CT 10/15/2018 10/07/18: incidental 4.5 mm nodule RML thyrotoxicosis Nonrheumatic mitral (valve) insufficiency Other osteoporosis 12/21/2006 Paroxysmal SVT (supraventricular tachycardia) (HCC) Personal history of colonic polyps Colon polyps POLYP STOMACH 07/13/2007 Stage 3a chronic kidney disease (HCC) 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--surgery not needed (2015) Tethering of spinal cord (HCC) 2014 Trigeminal neuralgia 10/11/2011 Trochanteric bursitis of left hip 07/24/2012 Unspecified hemorrhoids without mention of complication Hemorrhoids PAST SURGICAL HISTORY Procedure Laterality Date COLONOSCOPY FLX DX W/COLLJ SPEC WHEN PFRMD 12/2018 Colonoscopy COLONOSCOPY FLX DX W/COLLJ SPEC WHEN PFRMD 07/13/2007 Lax colon COLONOSCOPY FLX DX W/COLLJ SPEC WHEN PFRMD 03/26/2014 Colonoscopy COLONOSCOPY FLX DX W/COLLJ SPEC WHEN PFRMD 12/2018 [id number] 10 years COLONOSCOPY GEN ANES 04/28/2021 DECOMPRESSION PLANTAR DIGITAL NERVE 2000 heel spur/ plantar fasciitis repair Rt EGD 06/02/2021 EGD TRANSORAL BIOPSY SINGLE/MULTIPLE 07/13/2007 Gastritis, fundic gland polyps ESOPHAGOGASTRODUODENOSCOPY TRANSORAL DIAGNOSTIC 03/26/2014 EGD LAPAROSCOPY SURG CHOLECYSTECTOMY Cholecystectomy, lap LIG/TRNSXJ FLP TUBE ABDL/VAG APPR UNI/BI NEUROPLASTY &/TRANSPOS MEDIAN NRV CARPAL TUNNE Carpal tunnel decomp bilateral OPEN REPAIR OF ROTATOR CUFF ACUTE 1992 Rotator cuff repair, right STRESS TEST,COMPLETE_*FL FAMILY HISTORY Problem Relation Age of Onset Diabetes Mother Heart Mother Stroke Mother Hypertension Mother other (MVA) Father Hypertension Sister Heart Sister Hypertension Sister Heart Sister Hypertension Brother Heart Brother Hypertension Brother Cancer Brother Cancer Paternal Grandfather skin Breast Cancer Maternal Aunt Social History Tobacco Use Smoking status: Former Smoker Packs/day: 0.10 Years: 1.00 Pack years: 0.10 Types: Cigarettes Smokeless tobacco: Never Used Tobacco comment: Smoked 1 year or less in 1980s. Spouse was smoker in home for 39 years. Father smoked in childhood home. Vaping Use Vaping Use: Never used Substance Use Topics Alcohol use: No Drug use: No ALLERGIES Allergen Reactions Codeine Intolerance Chest pain Aceon [Perindopril * Rash, Cough Beta Blockers [Othe* Cough dry hacking cough Hctz [Other] Rash Imdur [Isosorbide] Other: See Comments headaches Lipitor [Atorvastat* Other: See Comments muscle cramps Lisinopril Cough dry hacking cough Spironolactone Other: See Comments headache MEDICATIONS: alendronate (FOSAMAX) 70 mg tablet Take 1 tablet by mouth one time a week. Take with a full glass of water, on an empty stomach; do NOT lie down for 30minutes. labetalol (TRANDATE) 200 mg tablet Take 1 tablet by mouth twice daily. potassium chloride ER (K-DUR, KLOR-CON) 20 mEq tablet Take 2 tablets by mouth twice daily. gabapentin (NEURONTIN) 300 mg capsule Take 1 capsule by mouth twice daily as needed for up to 90 days. Do not start before November 12, 2021. blood sugar diagnostic (BLOOD GLUCOSE TEST) test strip Test blood sugar(s) 1 times daily. Dx: Prediabetes Insulin: No Lancets lancets Test blood sugar(s) 1 times daily. Dx: Prediabetes Insulin: No levothyroxine (SYNTHROID) 88 mcg tablet TAKE 1 TABLET EVERY DAY amLODIPine (NORVASC) 5 mg tablet TAKE 1 TABLET EVERY DAY losartan (COZAAR) 100 mg tablet TAKE 1 TABLET EVERY DAY polyethylene glycol 3350 (MIRALAX, GLYCOLAX) 17 gram/dose powder Use as directed for Miralax / Gatorade Bowel Prep Kit Bifidobacterium infantis (ALIGN ORAL) Take by mouth once daily. ondansetron orally disintegrating (ZOFRAN ODT) 4 mg disintegrating tablet Take 1 tablet by mouth every 6 hours as needed for Nausea/Vomiting. 0.9 % sodium chloride (NACL 0.9%) 0.9% solp Infuse 500 ml IV over [address] meclizine (ANTIVERT) 25 mg tab Take 1 tablet by mouth three times daily as needed (vertigo). Biotin 2,500 mcg cap Take 1 capsule by mouth once daily. aspirin, enteric coated (ASPIRIN, ENTERIC COATED) 81 mg EC tablet Take 81 mg by mouth once daily. REVIEW OF SYSTEMS: PAIN ASSESSMENT: See HPI. GENERAL: Denies fever, chills malaise and weight loss. HEENT: No recent change in vision or hearing. CARDIOVASCULAR: Chest pain RESPIRATORY: Denies SOB, sputum production, and hemoptysis. GI: dysphagia : Denies change in frequency or urgency, kidney disease, and burning with urination. MUSCULOSKELETAL: Positive for See HPI SKIN: Denies rash or itching. PSYCHOLOGICAL: Denies uncontrolled depression or anxiety. NEURO: Denies CVA, seizures, headaches. ENDOCRINE: Denies diabetes, thyroid disease. HEMATOLOGY/LYMPHOLOGY: Denies cancer, bleeding or clotting disorders, anemia,and DVT's. ALLERGIC/IMMUNOLOGICAL: Denies risks for infection, or recent MRSA infections. Patient Entered Questionnaires PROMIS Score Percentiles PROMIS Global Health Scale 03/17/2016 10/12/2016 07/26/2017 Physical Health Percentile 53 31 22* Mental Health Percentile 34 26* 34 Percentiles provide an indication of how the patient's score ranks in relation to the general population. Higher percentile rankings indicate better function/quality of life. 50th percentile is the average of the general population and indicates half of respondents had a worse score. Depression Screening: PHQ-9 02/15/2016 10/12/2016 07/26/2017 Score 2 5 2 PHQ-9 Self-harm Question 02/15/2016 10/12/2016 07/26/2017 Thoughts that you would be better off , or of hurting yourself in some way 0 0 Not at all PHQ-9 Self-Harm (Item 9) response options: 0 Not at all 1 Several days 2 More than half the days 3 Nearly every day PHQ-9 Levels: 0-4 No to mild depression 5-9 Mild depression 10-14 Moderate depression 15-19 Moderately severe depression 20-27 Severe depression OBJECTIVE: PHYSICAL EXAM BP 156/70 Pulse 60 Ht 152.4 cm (5') Wt 78.5 kg (173 lb) SpO2 97% BMI 33.79 kg/m GENERAL APPEARANCE: Well nourished, well developed, and no apparent distress. NEURO PSYCH: Patient oriented to person, place, and time. Mood pleasant. Benign affect. CARDIOVASCULAR: No edema noted. SKIN: Head, neck, trunk, and extremities dry, intact and without lesions. LYMPHATICS: Groin exam deferred. MUSCULOSKELETAL VISUAL INSPECTION CERVICAL: WNL THORACIC: WNL LUMBAR: WNL PALPATION: SPINOUS PROCESS: No pain. PARASPINALS: No pain. MUSCLE BULK: Normal and symmetrical in the upper & lower extremities. MUSCLE TONE: Normal. MOTOR: 5/5 in all muscle groups. SENSORY: Normal sensory exam GAIT: Normal. REFLEXES: +2 to bilateral U/L extremities. NEURO TESTS: None DATA REVIEW [facility] records independently reviewed Imaging and outside records independently reviewed 01/2022 DXA with osteoporosis in femur 02/17/22 cerv XR Normal alignment without fracture or subluxation. No significant disc space narrowing. Mild to moderate bilateral C6-7 bony neural foraminal narrowing. Bilateral facet arthrosis, left greater than right. The vertebral soft tissues are within normal limits. Nazia Lord PA-C ASSESSMENT/PLAN Symptoms concerning for cervical myelopathy. Tashia Fernandez has a condition that requires further workup. 1. Imaging: Cervical MRI Without Contrast Symptoms of neuro deficit or red flag symptoms listed in HPI 2. Follow up: Following above I spent a total of 25 minutes on the date of the service which included preparing to see the patient, [id number] patient care, completing clinical documentation, obtaining and/or reviewing separately obtained history, performing a medically appropriate examination, counseling and educating the pat ient/family/caregiver, ordering medications, tests, or procedures, independently interpreting results (not separately reported) and communicating results to the patient/family/caregiver. SIGNATURE: Rafael Taylor MD PATIENT NAME: Tashia Fernandez DATE: February 28, 2022 TIME: 10:10 AM PAGER: documented in this encounterPrem[facility]14-[facility] History of Present illness Narrative* RT Shirley(R) - 02/17/2022 11:40 AM EDT Radiology Service Progress Note PATIENT NAME: Tashia Fernandez DATE OF SERVICE: February 17, 2022 TIME: 11:35 AM PATIENT IDENTITY VERIFICATION COMPLETED USING TWO (2) IDENTIFIERS: Name and Date of confirmedby patient verbally. FALL SCREENING: Has the patient had 2 falls in the last year or 1 fall with injury or currently using an Ambulatory Assistive Device (Walker, Cane, Wheelchair, Crutches, etc.)? No PATIENT GENDER DATA: Female. status: : No status: NO. PATIENT RELEVANT IMPLANT DATA REVIEWED: Not Applicable RADIOLOGY DEPARTMENT: General X-ray: Exam(s) Completed: Spine X-Ray(s): Cervical AP / LAT / OBL PERIPHERAL IV DATA: Not applicable SIGNED BY: RT Shirley(R) February 17, 2022 11:35 AM documented in this encounterPremier Health [facility]04-14-[facility] History of Present illness Narrative* Abhishek Yi MD - 02/17/2022 10:36 AM EDT Associated Order(s): Additional Injections: R ring A1 Abhishek Yi MD Department of Orthopaedics Orthopaedics [address] [place] [id number] Dept: [phone] Dept February 17, [address] Starr for an opinion regarding right finger pain. My final recommendations will be communicated back to the requesting physician by way of shared Medical record or letter to requesting physician via US mail. CHIEF COMPLAINT: Established Patient of the Right Ring Finger and Last seen 03/02/20 virtual visit right index finger HPI Patient states her right ring finger has been locking. At times she has to help open it. She has been running warm water in the mornings to help with the locking. Patient is right hand dominant. 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 AMB ROOMING INTAKE FLOWSHEET DATA Risk Screening Do you have concerns about personal safety or safety in the home?: No Pain Pain Level: 6 Pain Location: Finger (right ring) Description: Sore Duration Amount of Time: 6 Duration Units: Months Frequency: Continuous Intervention/Comfort measure: Medication ASSESSMENT: M54.2 Neck pain (primary encounter diagnosis) M65.30 Trigger finger, unspecified finger, unspecified laterality PLAN: Wanted to try a cortisone injection first for her trigger finger. I also ordered some neck films tohelp assist her office visit with spine in a couple of weeks. Ms. Tashia Fernandez was advised as to contrast therapies and/or to take analgesics/anti-inflammatories as needed and all contraindications were reviewed. OBJECTIVE: Ms. Tashia Fernandez is a pleasant 71 year old in no apparent distress. Gen:There were no vitals taken for this visit. nl development, non obese, no deformities ENT: Normocephalic, normal hearing, moist mucosa CV: Pulses:Radial= 2+ and symmetric, capillary refill < 2 secs, no peripheral edema/varicosities Skin: no rash, bruising or lesions. Good turgor. Psych: cooperative and appropriate, alert and oriented x 3, good mood and affect. Musculoskeletal: She has full range of motion of both of her shoulders. No impingement signs. Tender to palpation of the A1 kathy site of the right ring finger. Active locking and catching of the digit as well. Additional Injections: R ring A1 for trigger finger Informed Consent Consent Obtained: Verbal [place] Protocol A moment to CARE was completed. SIGN IN Personnel directly involved with the procedure wore the appropriate PPE. Special Equipment: N/A Patient/Surrogate Stated/Verified: Patient name, Date of , Relevant allergies and Intended procedure TIME OUT Intended patient and procedure match the source document(s). Consent documented and matches the intended procedure. Relevant labs, photos, and/or imaging studies have been reviewed. Correct side/site marked and visible. Medications required for procedure verified. No fire risk assessment and interventions applicable. No implant(s) inserted. 02/17/2022 11:24 AM The procedure site was prepped in the usual sterile fashion. Medications: 3 mg betamethasone acetate-betamethasone sodium phosphate 6 mg/mL Anesthetics: 0.5 mL lidocaine (PF) 10 mg/mL (1 %) Outcome: tolerated well, no immediate complications Post-injection instructions were reviewed with the patient and the patient voiced understanding of these instructions. SIGN OUT No specimen collected. All instruments, equipment, possible retained foreign bodies accounted for. Post-procedure follow-up management communicated and Plan of Care Visit completed when applicable Imaging: Deferred today Supporting Subjective Information Below: Past Surgical History: PAST SURGICAL HISTORY Procedure Laterality Date COLONOSCOPY FLX DX W/COLLJ SPEC WHEN PFRMD 12/2018 Colonoscopy COLONOSCOPY FLX DX W/COLLJ SPEC WHEN PFRMD 07/13/2007 Lax colon COLONOSCOPY FLX DX W/COLLJ SPEC WHEN PFRMD 03/26/2014 Colonoscopy COLONOSCOPY FLX DX W/COLLJ SPEC WHEN PFRMD 12/2018 [id number] 10 years COLONOSCOPY GEN ANES 04/28/2021 DECOMPRESSION PLANTAR DIGITAL NERVE 1999 heel spur/ plantar fasciitis repair Rt EGD 06/02/2021 EGD TRANSORAL BIOPSY SINGLE/MULTIPLE 07/13/2007 Gastritis, fundic gland polyps ESOPHAGOGASTRODUODENOSCOPY TRANSORAL DIAGNOSTIC 03/26/2014 EGD LAPAROSCOPY SURG CHOLECYSTECTOMY Cholecystectomy, lap LIG/TRNSXJ FLP TUBE ABDL/VAG APPR UNI/BI NEUROPLASTY &/TRANSPOS MEDIAN NRV CARPAL TUNNE Carpal tunnel decomp bilateral OPEN REPAIR OF ROTATOR CUFF ACUTE 1991 Rotator cuff repair, right STRESS TEST,COMPLETE_*FL Medications: Current Outpatient Medications Medication Sig alendronate (FOSAMAX) 70 mg tablet Take 1 tablet by mouth one time a week. Take with a full glass of water, on an empty stomach; do NOT lie down for 30minutes. labetalol (TRANDATE) 200 mg tablet Take 1 tablet by mouth twice daily. potassium chloride ER (K-DUR, KLOR-CON) 20 mEq tablet Take 2 tablets by mouth twice daily. gabapentin (NEURONTIN) 300 mg capsule Take 1 capsule by mouth twice daily as needed for up to 90 days. Do not start before November 12, 2021. blood sugar diagnostic (BLOOD GLUCOSE TEST) test strip Test blood sugar(s) 1 times daily. Dx: Prediabetes Insulin: No Lancets lancets Test blood sugar(s) 1 times daily. Dx: Prediabetes Insulin: No levothyroxine (SYNTHROID) 88 mcg tablet TAKE 1 TABLET EVERY DAY amLODIPine (NORVASC) 5 mg tablet TAKE 1 TABLET EVERY DAY losartan (COZAAR) 100 mg tablet TAKE 1 TABLET EVERY DAY ondansetron orally disintegrating (ZOFRAN ODT) 4 mg disintegrating tablet Take 1 tablet by mouth every 6 hours as needed for Nausea/Vomiting. 0.9 % sodium chloride (NACL 0.9%) 0.9% solp Infuse 500 ml IV over [address] meclizine (ANTIVERT) 25 mg tab Take 1 tablet by mouth three times daily as needed (vertigo). Biotin 2,500 mcg cap Take 1 capsule by mouth once daily. aspirin, enteric coated (ASPIRIN, ENTERIC COATED) 81 mg EC tablet Take 81 mg by mouth once daily. polyethylene glycol 3350 (MIRALAX, GLYCOLAX) 17 gram/dose powder Use as directed for Miralax / Gatorade Bowel Prep Kit (Patient taking differently: 17 g once daily. Use as directed for Miralax / Gatorade Bowel Prep Kit ) Bifidobacterium infantis (ALIGN ORAL) Take by mouth once daily. (Patient not taking: Reported on 11/24/2021 ) Current Facility-Administered Medications Medication Dose Route Frequency perflutren lipid microspheres 1.3 mL in NaCl (PF) 0.9% 10 mL injection (DEFINITY) INTRAVENOUS DIRECTED PRN sodium chloride 0.9 % (flush) 10 mL (BD POSIFLUSH) 10 mL INTRAVENOUS DIRECTED PRN Allergies: Codeine, Aceon [Perindopril Erbumine], Beta Blockers [Other], Hctz [Other], Imdur [Isosorbide], Lipitor [Atorvastatin Calcium], Lisinopril, and Spironolactone ROS: General (negative for fatigue, malaise, weight loss/gain) HEENT (negative for headache, earache, recent vision changes, sinus pain, sore throat) Respiratory (no recent shortness of breath, hemoptysis) CV (negative for chest tightness, palpitations) Musculoskeletal (see HPI) Psych (no depression, anxiety) Abhishek Yi MD documented in this encounterPrem[facility]03-25-2022 Miscellaneous Notes* Telephone Encounter - Anusha Frey RN - 01/28/2022 11:43 AM EDT Pt called and is notified of providers message and instructions. Pt voices understanding. Put Pt through to schedule ortho appointment. Anusha Frey RN * Telephone Encounter - Elisa Starr MD - 01/28/2022 8:08 AM EDT I have placed a referral back to ortho if trigger finger is bothering her again. Can discuss injection with their office. * Telephone Encounter - Gia Wilson LPN - 01/27/2022 5:06 PM EDT Pt asking what to do about her trigger finger. Pt reports this was discussed earlier and it is verypainful. Not certain what to do. Please advise. Gia Wilson LPN documented in this encounterPrem[facility]03-25-2022 Miscellaneous Notes* Telephone Encounter - Elisa Starr MD - 01/28/2022 8:08 AM EDT rx sent to pharmacy. * Telephone Encounter - Gia Wilson LPN - 01/27/2022 5:02 PM EDT Spoke with pt and information listed below given. Pt verbalizes understanding. Okay with starting medication. Prescription goes to [employer]. Gia Wilson LPN * Telephone Encounter - Mis Hylton LPN - 01/27/2022 4:58 PM EDT Vm left for patient to return oliva for results, orders and recommendations. Please be sure she gets results from Zio monitor as well in separate phone encounter. * Telephone Encounter - Elisa Starr MD - 01/27/2022 3:57 PM EDT DXA scan shows osteoporosis in her hips bilaterally. Recommend adding on weekly Fosamax to regimen to help strengthen bones and reduce her risk of fracture. If agreeable, will send rx to requested pharmacy. documented in this encounterPrem[facility]03-25-2022 Miscellaneous Notes* Telephone Encounter - Elisa Starr MD - 01/28/2022 8:03 AM EDT Rx sent to [facility] yesterday. * Telephone Encounter - Gia Wilson LPN - 01/27/2022 5:03 PM EDT Spoke with pt and information listed below given. Pt verbalizes understanding. Prescription went to the wrong pharmacy. All prescriptions go to [facility]. Unless she specifies. Gia Wilson LPN * Telephone Encounter - Mis Hylton LPN - 01/27/2022 4:56 PM EDT Phoned patient and VM left to return call for results, orders and recommendations. Please give DXA results as well. Results in another phone encounter. * Telephone Encounter - Elisa Starr MD - 01/27/2022 4:10 PM EDT Zio monitor with finding of predominant sinus rhythm with 17 runs of SVT. Highest HR of 190 bpm, but only for 4 beats. Patient's symptoms did correlate with the runs of SVT. Will increase labetolol to 200 mg BID to help prevent these episodes. If symptoms persist, will have her follow up with cardiology. Call with signs of lightheadedness/dizziness or with HR <60 or BP <100/60. documented in this encounterPrem[facility]09-24-2021 History of Present illness Narrative* Deepthi Kennedy RT(R) - 07/30/2021 2:40 PM EDT Radiology Service Progress Note PATIENT NAME: Tashia Fernandez DATE OF SERVICE: July 30, 2021 TIME: 2:34 PM PATIENT IDENTITY VERIFICATION COMPLETED USING TWO (2) IDENTIFIERS: Name and Date of confirmedby patient verbally. FALL SCREENING: Has the patient had 2 falls in the last year or 1 fall with injury or currently using an Ambulatory Assistive Device (Walker, Cane, Wheelchair, Crutches, etc.)? No PATIENT GENDER DATA: Female. status: : No status: NO. PATIENT RELEVANT IMPLANT DATA REVIEWED: Yes RADIOLOGY DEPARTMENT: General X-ray: Exam(s) Completed: Chest X-Ray PERIPHERAL IV DATA: Not applicable SIGNED BY: RT Georgia(Andre) July 30, 2021 2:34 PM documented in this encounterPrem[facility]06-18-2021 Miscellaneous Notes* Telephone Encounter - Ana Serrato LPN - 04/23/2021 9:12 AM EDT TC to pt. updated her on lab results and the ok to get testing done. Pt. stated she understood. Ana Serrato LPN * Telephone Encounter - Elizabeth Og APRN.CNP - 04/23/2021 8:41 AM EDT Sodium appears stable. The rest of her blood work is in acceptable limits. She can get ian colonoscopy as scheduled. Thanks, Elizabeth Og APRN.CNP * Telephone Encounter - Flo Ibarra RN - 04/23/2021 8:20 AM EDT Patient asking Lead Infrastructure Architect to review and advise on lab results. She is especially concerned b/c she is scheduled for a colonoscopy on and will be doing prep for this as well as all liquid diet. Please review and advise patient. documented in this encounterPremier [facility]09-06-2018 History of Past illness Narrative* Problem Noted Date Resolved Date History of pancreatitis 07/12/2018 10/15/20 18 History of diverticulitis 07/12/20182017 Elevated alkaline phosphatase level 07/12/2018 02/17/2019 Dysphagia, unspecified 08/29/2017 0 Abdominal pain 11/20/2014 09/01/2016 Trochanteric bursitis of left hip 07/24/2012 10/15/2018 GASTRITIS ANTRAL( W/O Hemorrhage) 07/13/2007 11/02/2015 POLYP STOMACH 07/13/2007 12/19/2019 Personal history of colonic polyps 06/02/2021 Overview: Colon polyps documented as of this encounter (statuses as of 02/02/2022) [facility] of Past illness Narrative* Problem Noted Date Resolved Date History of pancreatitis 07/12/2018 10/15/20 18 History of diverticulitis 07/12/20182017 Elevated alkaline phosphatase level 07/12/2018 02/17/2019 Dysphagia, unspecified 08/29/2017 0 Abdominal pain 11/20/2014 09/01/2016 Trochanteric bursitis of left hip 07/24/2012 10/15/2018 GASTRITIS ANTRAL( W/O Hemorrhage) 07/13/2007 11/02/2015 POLYP STOMACH 07/13/2007 12/19/2019 Personal history of colonic polyps 06/02/2021 Overview: Colon polyps documented as of this encounter (statuses as of 02/17/2022) [facility] of Past illness Narrative* Problem Noted Date Resolved Date History of pancreatitis 07/12/2018 10/15/20 18 History of diverticulitis 07/12/20182017 Elevated alkaline phosphatase level 07/12/2018 02/17/2019 Dysphagia, unspecified 08/29/2017 0 Abdominal pain 11/20/2014 09/01/2016 Trochanteric bursitis of left hip 07/24/2012 10/15/2018 GASTRITIS ANTRAL( W/O Hemorrhage) 07/13/2007 11/02/2015 POLYP STOMACH 07/13/2007 12/19/2019 Personal history of colonic polyps 06/02/2021 Overview: Colon polyps documented as of this encounter (statuses as of 02/18/2022) [facility] of [facility] illness Narrative* Problem Noted Date Resolved Date History of pancreatitis 07/12/2018 10/15/20 18 History of diverticulitis 07/12/20182017 Elevated alkaline phosphatase level 07/12/2018 02/17/2019 Dysphagia, unspecified 08/29/2017 0 Abdominal pain 11/20/2014 09/01/2016 Trochanteric bursitis of left hip 07/24/2012 10/15/2018 GASTRITIS ANTRAL( W/O Hemorrhage) 07/13/2007 11/02/2015 POLYP STOMACH 07/13/2007 12/19/2019 Personal history of colonic polyps 06/02/2021 Overview: Colon polyps documented as of this encounter (statuses as of 02/25/2022) [facility] of [facility] illness Narrative* Problem Noted Date Resolved Date History of pancreatitis 07/12/2018 10/15/20 18 History of diverticulitis 07/12/20182017 Elevated alkaline phosphatase level 07/12/2018 02/17/2019 Dysphagia, unspecified 08/29/2017 0 Abdominal pain 11/20/2014 09/01/2016 Trochanteric bursitis of left hip 07/24/2012 10/15/2018 GASTRITIS ANTRAL( W/O Hemorrhage) 07/13/2007 11/02/2015 POLYP STOMACH 07/13/2007 12/19/2019 Personal history of colonic polyps 06/02/2021 Overview: Colon polyps documented as of this encounter (statuses as of 02/28/2022) [facility] of [facility] illness Narrative* Problem Noted Date Resolved Date History of pancreatitis 07/12/2018 10/15/20 18 History of diverticulitis 07/12/20182017 Elevated alkaline phosphatase level 07/12/2018 02/17/2019 Dysphagia, unspecified 08/29/2017 0 Abdominal pain 11/20/2014 09/01/2016 Trochanteric bursitis of left hip 07/24/2012 10/15/2018 GASTRITIS ANTRAL( W/O Hemorrhage) 07/13/2007 11/02/2015 POLYP STOMACH 07/13/2007 12/19/2019 Personal history of colonic polyps 06/02/2021 Overview: Colon polyps documented as of this encounter (statuses as of 03/16/2022) [facility] Narrative* Problem Noted Date Resolved Date History of pancreatitis 07/12/2018 10/15/20 18 History of diverticulitis 07/12/20182017 Elevated alkaline phosphatase level 07/12/2018 02/17/2019 Dysphagia, unspecified 08/29/2017 0 Abdominal pain 11/20/2014 09/01/2016 Trochanteric bursitis of left hip 07/24/2012 10/15/2018 GASTRITIS ANTRAL( W/O Hemorrhage) 07/13/2007 11/02/2015 POLYP STOMACH 07/13/2007 12/19/2019 Personal history of colonic polyps 06/02/2021 Overview: Colon polyps documented as of this encounter (statuses as of 03/28/2022) [facility] Narrative* Problem Noted Date Resolved Date History of pancreatitis 07/12/2018 10/15/20 18 History of diverticulitis 07/12/20182017 Elevated alkaline phosphatase level 07/12/2018 02/17/2019 Dysphagia, unspecified 08/29/2017 0 Abdominal pain 11/20/2014 09/01/2016 Trochanteric bursitis of left hip 07/24/2012 10/15/2018 GASTRITIS ANTRAL( W/O Hemorrhage) 07/13/2007 11/02/2015 POLYP STOMACH 07/13/2007 12/19/2019 Personal history of colonic polyps 06/02/2021 Overview: Colon polyps documented as of this encounter (statuses as of 04/05/2022) [facility] Narrative* Problem Noted Date Resolved Date History of pancreatitis 07/12/2018 10/15/20 18 History of diverticulitis 07/12/20182017 Elevated alkaline phosphatase level 07/12/2018 02/17/2019 Dysphagia, unspecified 08/29/2017 0 Abdominal pain 11/20/2014 09/01/2016 Trochanteric bursitis of left hip 07/24/2012 10/15/2018 GASTRITIS ANTRAL( W/O Hemorrhage) 07/13/2007 11/02/2015 POLYP STOMACH 07/13/2007 12/19/2019 Personal history of colonic polyps 06/02/2021 Overview: Colon polyps documented as of this encounter (statuses as of 04/25/2022) [facility] Narrative* Problem Noted Date Resolved Date History of pancreatitis 07/12/2018 10/15/20 18 History of diverticulitis 07/12/20182017 Elevated alkaline phosphatase level 07/12/2018 02/17/2019 Dysphagia, unspecified 08/29/2017 0 Abdominal pain 11/20/2014 09/01/2016 Trochanteric bursitis of left hip 07/24/2012 10/15/2018 GASTRITIS ANTRAL( W/O Hemorrhage) 07/13/2007 11/02/2015 POLYP STOMACH 07/13/2007 12/19/2019 Personal history of colonic polyps 06/02/2021 Overview: Colon polyps documented as of this encounter (statuses as of 04/26/2022) [facility] Narrative* Problem Noted Date Resolved Date History of pancreatitis 07/12/2018 10/15/20 18 History of diverticulitis 07/12/20182017 Elevated alkaline phosphatase level 07/12/2018 02/17/2019 Dysphagia, unspecified 08/29/2017 0 Abdominal pain 11/20/2014 09/01/2016 Trochanteric bursitis of left hip 07/24/2012 10/15/2018 GASTRITIS ANTRAL( W/O Hemorrhage) 07/13/2007 11/02/2015 POLYP STOMACH 07/13/2007 12/19/2019 Personal history of colonic polyps 06/02/2021 Overview: Colon polyps documented as of this encounter (statuses as of 04/27/2022) [facility] Narrative* Problem Noted Date Resolved Date History of pancreatitis 07/12/2018 10/15/20 18 History of diverticulitis 07/12/20182017 Elevated alkaline phosphatase level 07/12/2018 02/17/2019 Dysphagia, unspecified 08/29/2017 0 Abdominal pain 11/20/2014 09/01/2016 Trochanteric bursitis of left hip 07/24/2012 10/15/2018 GASTRITIS ANTRAL( W/O Hemorrhage) 07/13/2007 11/02/2015 POLYP STOMACH 07/13/2007 12/19/2019 Personal history of colonic polyps 06/02/2021 Overview: Colon polyps documented as of this encounter (statuses as of 05/10/2022) [facility]09-[facility]2018 History of Past illness Narrative* Problem Noted Date Resolved Date History of pancreatitis 07/12/2018 10/15/20 18 History of diverticulitis 07/12/20182017 Elevated alkaline phosphatase level 07/12/2018 02/17/2019 Dysphagia, unspecified 08/29/2017 0 Abdominal pain 11/20/2014 09/01/2016 Trochanteric bursitis of left hip 07/24/2012 10/15/2018 GASTRITIS ANTRAL( W/O Hemorrhage) 07/13/2007 11/02/2015 POLYP STOMACH 07/13/2007 12/19/2019 Personal history of colonic polyps 06/02/2021 Overview: Colon polyps documented as of this encounter (statuses as of 05/11/2022) [facility] History of Past illness Narrative* Problem Noted Date Resolved Date History of pancreatitis 07/12/2018 10/15/20 18 History of diverticulitis 07/12/20182017 Elevated alkaline phosphatase level 07/12/2018 02/17/2019 Dysphagia, unspecified 08/29/2017 0 Abdominal pain 11/20/2014 09/01/2016 Trochanteric bursitis of left hip 07/24/2012 10/15/2018 GASTRITIS ANTRAL( W/O Hemorrhage) 07/13/2007 11/02/2015 POLYP STOMACH 07/13/2007 12/19/2019 Personal history of colonic polyps 06/02/2021 Overview: Colon polyps documented as of this encounter (statuses as of 05/11/2022) [facility] History of Past illness Narrative* Problem Noted Date Resolved Date History of pancreatitis 07/12/2018 10/15/20 18 History of diverticulitis 07/12/20182017 Elevated alkaline phosphatase level 07/12/2018 02/17/2019 Dysphagia, unspecified 08/29/2017 0 Abdominal pain 11/20/2014 09/01/2016 Trochanteric bursitis of left hip 07/24/2012 10/15/2018 GASTRITIS ANTRAL( W/O Hemorrhage) 07/13/2007 11/02/2015 POLYP STOMACH 07/13/2007 12/19/2019 Personal history of colonic polyps 06/02/2021 Overview: Colon polyps documented as of this encounter (statuses as of 05/13/2022) [facility] History of Past illness Narrative* Problem Noted Date Resolved Date History of pancreatitis 07/12/2018 10/15/20 18 History of diverticulitis 07/12/20182017 Elevated alkaline phosphatase level 07/12/2018 02/17/2019 Dysphagia, unspecified 08/29/2017 0 Abdominal pain 11/20/2014 09/01/2016 Trochanteric bursitis of left hip 07/24/2012 10/15/2018 GASTRITIS ANTRAL( W/O Hemorrhage) 07/13/2007 11/02/2015 POLYP STOMACH 07/13/2007 12/19/2019 Personal history of colonic polyps 06/02/2021 Overview: Colon polyps documented as of this encounter (statuses as of 05/16/2022) [facility] History of Past illness Narrative* Problem Noted Date Resolved Date History of pancreatitis 07/12/2018 10/15/20 18 History of diverticulitis 07/12/20182017 Elevated alkaline phosphatase level 07/12/2018 02/17/2019 Dysphagia, unspecified 08/29/2017 0 Abdominal pain 11/20/2014 09/01/2016 Trochanteric bursitis of left hip 07/24/2012 10/15/2018 GASTRITIS ANTRAL( W/O Hemorrhage) 07/13/2007 11/02/2015 POLYP STOMACH 07/13/2007 12/19/2019 Personal history of colonic polyps 06/02/2021 Overview: Colon polyps documented as of this encounter (statuses as of 05/25/2022) [facility] History of Past illness Narrative* Problem Noted Date Resolved Date History of pancreatitis 07/12/2018 10/15/20 18 History of diverticulitis 07/12/20182017 Elevated alkaline phosphatase level 07/12/2018 02/17/2019 Dysphagia, unspecified 08/29/2017 0 Abdominal pain 11/20/2014 09/01/2016 Trochanteric bursitis of left hip 07/24/2012 10/15/2018 GASTRITIS ANTRAL( W/O Hemorrhage) 07/13/2007 11/02/2015 POLYP STOMACH 07/13/2007 12/19/2019 Personal history of colonic polyps 06/02/2021 Overview: Colon polyps documented as of this encounter (statuses as of 06/06/2022) [facility] History of Past illness Narrative* Problem Noted Date Resolved Date History of pancreatitis 07/12/2018 10/15/20 18 History of diverticulitis 07/12/20182017 Elevated alkaline phosphatase level 07/12/2018 02/17/2019 Dysphagia, unspecified 08/29/2017 0 Abdominal pain 11/20/2014 09/01/2016 Trochanteric bursitis of left hip 07/24/2012 10/15/2018 GASTRITIS ANTRAL( W/O Hemorrhage) 07/13/2007 11/02/2015 POLYP STOMACH 07/13/2007 12/19/2019 Personal history of colonic polyps 06/02/2021 Overview: Colon polyps documented as of this encounter (statuses as of 06/08/2022) [facility] History of Past illness Narrative* Problem Noted Date Resolved Date History of pancreatitis 07/12/2018 10/15/20 18 History of diverticulitis 07/12/20182017 Elevated alkaline phosphatase level 07/12/2018 02/17/2019 Dysphagia, unspecified 08/29/2017 0 Abdominal pain 11/20/2014 09/01/2016 Trochanteric bursitis of left hip 07/24/2012 10/15/2018 GASTRITIS ANTRAL( W/O Hemorrhage) 07/13/2007 11/02/2015 POLYP STOMACH 07/13/2007 12/19/2019 Personal history of colonic polyps 06/02/2021 Overview: Colon polyps documented as of this encounter (statuses as of 06/09/2022) [facility] History of Past illness Narrative* Problem Noted Date Resolved Date History of pancreatitis 07/12/2018 10/15/20 18 History of diverticulitis 07/12/20182017 Elevated alkaline phosphatase level 07/12/2018 02/17/2019 Dysphagia, unspecified 08/29/2017 0 Abdominal pain 11/20/2014 09/01/2016 Trochanteric bursitis of left hip 07/24/2012 10/15/2018 GASTRITIS ANTRAL( W/O Hemorrhage) 07/13/2007 11/02/2015 POLYP STOMACH 07/13/2007 12/19/2019 Personal history of colonic polyps 06/02/2021 Overview: Colon polyps documented as of this encounter (statuses as of 06/14/2022) [facility] History of Past illness Narrative* Problem Noted Date Resolved Date History of pancreatitis 07/12/2018 10/15/20 18 History of diverticulitis 07/12/20182017 Elevated alkaline phosphatase level 07/12/2018 02/17/2019 Dysphagia, unspecified 08/29/2017 0 Abdominal pain 11/20/2014 09/01/2016 Trochanteric bursitis of left hip 07/24/2012 10/15/2018 GASTRITIS ANTRAL( W/O Hemorrhage) 07/13/2007 11/02/2015 POLYP STOMACH 07/13/2007 12/19/2019 Personal history of colonic polyps 06/02/2021 Overview: Colon polyps documented as of this encounter (statuses as of 06/15/2022) [facility] History of Past illness Narrative* Problem Noted Date Resolved Date History of pancreatitis 07/12/2018 10/15/20 18 History of diverticulitis 07/12/20182017 Elevated alkaline phosphatase level 07/12/2018 02/17/2019 Dysphagia, unspecified 08/29/2017 0 Abdominal pain 11/20/2014 09/01/2016 Trochanteric bursitis of left hip 07/24/2012 10/15/2018 GASTRITIS ANTRAL( W/O Hemorrhage) 07/13/2007 11/02/2015 POLYP STOMACH 07/13/2007 12/19/2019 Personal history of colonic polyps 06/02/2021 Overview: Colon polyps documented as of this encounter (statuses as of 06/27/2022) [facility] History of Past illness Narrative* Problem Noted Date Resolved Date History of pancreatitis 07/12/2018 10/15/20 18 History of diverticulitis 07/12/20182017 Elevated alkaline phosphatase level 07/12/2018 02/17/2019 Dysphagia, unspecified 08/29/2017 0 Abdominal pain 11/20/2014 09/01/2016 Trochanteric bursitis of left hip 07/24/2012 10/15/2018 GASTRITIS ANTRAL( W/O Hemorrhage) 07/13/2007 11/02/2015 POLYP STOMACH 07/13/2007 12/19/2019 Personal history of colonic polyps 06/02/2021 Overview: Colon polyps documented as of this encounter (statuses as of 06/29/2022) [facility] History of Past illness Narrative* Problem Noted Date Resolved Date History of pancreatitis 07/12/2018 10/15/20 18 History of diverticulitis 07/12/20182017 Elevated alkaline phosphatase level 07/12/2018 02/17/2019 Dysphagia, unspecified 08/29/2017 0 Abdominal pain 11/20/2014 09/01/2016 Trochanteric bursitis of left hip 07/24/2012 10/15/2018 GASTRITIS ANTRAL( W/O Hemorrhage) 07/13/2007 11/02/2015 POLYP STOMACH 07/13/2007 12/19/2019 Personal history of colonic polyps 06/02/2021 Overview: Colon polyps documented as of this encounter (statuses as of 06/29/2022) [facility] History of Past illness Narrative* Problem Noted Date Resolved Date History of pancreatitis 07/12/2018 10/15/20 18 History of diverticulitis 07/12/20182017 Elevated alkaline phosphatase level 07/12/2018 02/17/2019 Dysphagia, unspecified 08/29/2017 0 Abdominal pain 11/20/2014 09/01/2016 Trochanteric bursitis of left hip 07/24/2012 10/15/2018 GASTRITIS ANTRAL( W/O Hemorrhage) 07/13/2007 11/02/2015 POLYP STOMACH 07/13/2007 12/19/2019 Personal history of colonic polyps 06/02/2021 Overview: Colon polyps documented as of this encounter (statuses as of 07/01/2022) [facility] History of Past illness Narrative* Problem Noted Date Resolved Date History of pancreatitis 07/12/2018 10/15/20 18 History of diverticulitis 07/12/20182017 Elevated alkaline phosphatase level 07/12/2018 02/17/2019 Dysphagia, unspecified 08/29/2017 0 Abdominal pain 11/20/2014 09/01/2016 Trochanteric bursitis of left hip 07/24/2012 10/15/2018 GASTRITIS ANTRAL( W/O Hemorrhage) 07/13/2007 11/02/2015 POLYP STOMACH 07/13/2007 12/19/2019 Personal history of colonic polyps 06/02/2021 Overview: Colon polyps documented as of this encounter (statuses as of 07/04/2022) [facility] History of Past illness Narrative* Problem Noted Date Resolved Date History of pancreatitis 07/12/2018 10/15/20 18 History of diverticulitis 07/12/20182017 Elevated alkaline phosphatase level 07/12/2018 02/17/2019 Dysphagia, unspecified 08/29/2017 0 Abdominal pain 11/20/2014 09/01/2016 Trochanteric bursitis of left hip 07/24/2012 10/15/2018 GASTRITIS ANTRAL( W/O Hemorrhage) 07/13/2007 11/02/2015 POLYP STOMACH 07/13/2007 12/19/2019 Personal history of colonic polyps 06/02/2021 Overview: Colon polyps documented as of this encounter (statuses as of 07/06/2022) [facility] History of Past illness Narrative* Problem Noted Date Resolved Date History of pancreatitis 07/12/2018 10/15/20 18 History of diverticulitis 07/12/20182017 Elevated alkaline phosphatase level 07/12/2018 02/17/2019 Dysphagia, unspecified 08/29/2017 0 Abdominal pain 11/20/2014 09/01/2016 Trochanteric bursitis of left hip 07/24/2012 10/15/2018 GASTRITIS ANTRAL( W/O Hemorrhage) 07/13/2007 11/02/2015 POLYP STOMACH 07/13/2007 12/19/2019 Personal history of colonic polyps 06/02/2021 Overview: Colon polyps documented as of this encounter (statuses as of 07/21/2022) [facility] History of Past illness Narrative* Problem Noted Date Resolved Date History of pancreatitis 07/12/2018 10/15/20 18 History of diverticulitis 07/12/20182017 Elevated alkaline phosphatase level 07/12/2018 02/17/2019 Dysphagia, unspecified 08/29/2017 0 Abdominal pain 11/20/2014 09/01/2016 Trochanteric bursitis of left hip 07/24/2012 10/15/2018 GASTRITIS ANTRAL( W/O Hemorrhage) 07/13/2007 11/02/2015 POLYP STOMACH 07/13/2007 12/19/2019 Personal history of colonic polyps 06/02/2021 Overview: Colon polyps documented as of this encounter (statuses as of 07/26/2022) [facility] History of Past illness Narrative* Problem Noted Date Resolved Date History of pancreatitis 07/12/2018 10/15/20 18 History of diverticulitis 07/12/20182017 Elevated alkaline phosphatase level 07/12/2018 02/17/2019 Dysphagia, unspecified 08/29/2017 0 Abdominal pain 11/20/2014 09/01/2016 Trochanteric bursitis of left hip 07/24/2012 10/15/2018 GASTRITIS ANTRAL( W/O Hemorrhage) 07/13/2007 11/02/2015 POLYP STOMACH 07/13/2007 12/19/2019 Personal history of colonic polyps 06/02/2021 Overview: Colon polyps documented as of this encounter (statuses as of 07/26/2022) [facility] History of Past illness Narrative* Problem Noted Date Resolved Date History of pancreatitis 07/12/2018 10/15/20 18 History of diverticulitis 07/12/20182017 Elevated alkaline phosphatase level 07/12/2018 02/17/2019 Dysphagia, unspecified 08/29/2017 0 Abdominal pain 11/20/2014 09/01/2016 Trochanteric bursitis of left hip 07/24/2012 10/15/2018 GASTRITIS ANTRAL( W/O Hemorrhage) 07/13/2007 11/02/2015 POLYP STOMACH 07/13/2007 12/19/2019 Personal history of colonic polyps 06/02/2021 Overview: Colon polyps documented as of this encounter (statuses as of 08/08/2022) [facility] History of Past illness Narrative* Problem Noted Date Resolved Date History of pancreatitis 07/12/2018 10/15/20 18 History of diverticulitis 07/12/20182017 Elevated alkaline phosphatase level 07/12/2018 02/17/2019 Dysphagia, unspecified 08/29/2017 0 Abdominal pain 11/20/2014 09/01/2016 Trochanteric bursitis of left hip 07/24/2012 10/15/2018 GASTRITIS ANTRAL( W/O Hemorrhage) 07/13/2007 11/02/2015 POLYP STOMACH 07/13/2007 12/19/2019 Personal history of colonic polyps 06/02/2021 Overview: Colon polyps documented as of this encounter (statuses as of 08/19/2022) [facility] History of Past illness Narrative* Problem Noted Date Resolved Date History of pancreatitis 07/12/2018 10/15/20 18 History of diverticulitis 07/12/20182017 Elevated alkaline phosphatase level 07/12/2018 02/17/2019 Dysphagia, unspecified 08/29/2017 0 Abdominal pain 11/20/2014 09/01/2016 Trochanteric bursitis of left hip 07/24/2012 10/15/2018 GASTRITIS ANTRAL( W/O Hemorrhage) 07/13/2007 11/02/2015 POLYP STOMACH 07/13/2007 12/19/2019 Personal history of colonic polyps 06/02/2021 Overview: Colon polyps documented as of this encounter (statuses as of 08/22/2022) [facility] History of Past illness Narrative* Problem Noted Date Resolved Date History of pancreatitis 07/12/2018 10/15/20 18 History of diverticulitis 07/12/20182017 Elevated alkaline phosphatase level 07/12/2018 02/17/2019 Dysphagia, unspecified 08/29/2017 0 Abdominal pain 11/20/2014 09/01/2016 Trochanteric bursitis of left hip 07/24/2012 10/15/2018 GASTRITIS ANTRAL( W/O Hemorrhage) 07/13/2007 11/02/2015 POLYP STOMACH 07/13/2007 12/19/2019 Personal history of colonic polyps 06/02/2021 Overview: Colon polyps documented as of this encounter (statuses as of 08/29/2022) [facility] History of Past illness Narrative* Problem Noted Date Resolved Date History of pancreatitis 07/12/2018 10/15/20 18 History of diverticulitis 07/12/20182017 Elevated alkaline phosphatase level 07/12/2018 02/17/2019 Dysphagia, unspecified 08/29/2017 0 Abdominal pain 11/20/2014 09/01/2016 Trochanteric bursitis of left hip 07/24/2012 10/15/2018 GASTRITIS ANTRAL( W/O Hemorrhage) 07/13/2007 11/02/2015 POLYP STOMACH 07/13/2007 12/19/2019 Personal history of colonic polyps 06/02/2021 Overview: Colon polyps documented as of this encounter (statuses as of 09/02/2022) [facility] History of Past illness Narrative* Problem Noted Date Resolved Date History of pancreatitis 07/12/2018 10/15/20 18 History of diverticulitis 07/12/20182017 Elevated alkaline phosphatase level 07/12/2018 02/17/2019 Dysphagia, unspecified 08/29/2017 0 Abdominal pain 11/20/2014 09/01/2016 Trochanteric bursitis of left hip 07/24/2012 10/15/2018 GASTRITIS ANTRAL( W/O Hemorrhage) 07/13/2007 11/02/2015 POLYP STOMACH 07/13/2007 12/19/2019 Personal history of colonic polyps 06/02/2021 Overview: Colon polyps documented as of this encounter (statuses as of 09/05/2022) [facility] History of Past illness Narrative* Problem Noted Date Resolved Date History of pancreatitis 07/12/2018 10/15/20 18 History of diverticulitis 07/12/20182017 Elevated alkaline phosphatase level 07/12/2018 02/17/2019 Dysphagia, unspecified 08/29/2017 0 Abdominal pain 11/20/2014 09/01/2016 Trochanteric bursitis of left hip 07/24/2012 10/15/2018 GASTRITIS ANTRAL( W/O Hemorrhage) 07/13/2007 11/02/2015 POLYP STOMACH 07/13/2007 12/19/2019 Personal history of colonic polyps 06/02/2021 Overview: Colon polyps documented as of this encounter (statuses as of 09/20/2022) [facility] History of Past illness Narrative* Problem Noted Date Resolved Date History of pancreatitis 07/12/2018 10/15/20 18 History of diverticulitis 07/12/20182017 Elevated alkaline phosphatase level 07/12/2018 02/17/2019 Dysphagia, unspecified 08/29/2017 0 Abdominal pain 11/20/2014 09/01/2016 Trochanteric bursitis of left hip 07/24/2012 10/15/2018 GASTRITIS ANTRAL( W/O Hemorrhage) 07/13/2007 11/02/2015 POLYP STOMACH 07/13/2007 12/19/2019 Personal history of colonic polyps 06/02/2021 Overview: Colon polyps documented as of this encounter (statuses as of 09/27/2022) [facility] History of Past illness Narrative* Problem Noted Date Resolved Date History of pancreatitis 07/12/2018 10/15/20 18 History of diverticulitis 07/12/20182017 Elevated alkaline phosphatase level 07/12/2018 02/17/2019 Dysphagia, unspecified 08/29/2017 0 Abdominal pain 11/20/2014 09/01/2016 Trochanteric bursitis of left hip 07/24/2012 10/15/2018 GASTRITIS ANTRAL( W/O Hemorrhage) 07/13/2007 11/02/2015 POLYP STOMACH 07/13/2007 12/19/2019 Personal history of colonic polyps 06/02/2021 Overview: Colon polyps documented as of this encounter (statuses as of 09/28/2022) [facility] History of Past illness Narrative* Problem Noted Date Resolved Date History of pancreatitis 07/12/2018 10/15/20 18 History of diverticulitis 07/12/20182017 Elevated alkaline phosphatase level 07/12/2018 02/17/2019 Dysphagia, unspecified 08/29/2017 0 Abdominal pain 11/20/2014 09/01/2016 Trochanteric bursitis of left hip 07/24/2012 10/15/2018 GASTRITIS ANTRAL( W/O Hemorrhage) 07/13/2007 11/02/2015 POLYP STOMACH 07/13/2007 12/19/2019 Personal history of colonic polyps 06/02/2021 Overview: Colon polyps documented as of this encounter (statuses as of 10/18/2022) [facility] History of Past illness Narrative* Problem Noted Date Resolved Date History of pancreatitis 07/12/2018 10/15/20 18 History of diverticulitis 07/12/20182017 Elevated alkaline phosphatase level 07/12/2018 02/17/2019 Dysphagia, unspecified 08/29/2017 0 Abdominal pain 11/20/2014 09/01/2016 Trochanteric bursitis of left hip 07/24/2012 10/15/2018 GASTRITIS ANTRAL( W/O Hemorrhage) 07/13/2007 11/02/2015 POLYP STOMACH 07/13/2007 12/19/2019 Personal history of colonic polyps 06/02/2021 Overview: Colon polyps documented as of this encounter (statuses as of 10/24/2022) [facility] History of Past illness Narrative* Problem Noted Date Resolved Date History of pancreatitis 07/12/2018 10/15/20 18 History of diverticulitis 07/12/20182017 Elevated alkaline phosphatase level 07/12/2018 02/17/2019 Dysphagia, unspecified 08/29/2017 0 Abdominal pain 11/20/2014 09/01/2016 Trochanteric bursitis of left hip 07/24/2012 10/15/2018 GASTRITIS ANTRAL( W/O Hemorrhage) 07/13/2007 11/02/2015 POLYP STOMACH 07/13/2007 12/19/2019 Personal history of colonic polyps 06/02/2021 Overview: Colon polyps documented as of this encounter (statuses as of 10/29/2022) [facility] History of Past illness Narrative* Problem Noted Date Resolved Date History of pancreatitis 07/12/2018 10/15/20 18 History of diverticulitis 07/12/20182017 Elevated alkaline phosphatase level 07/12/2018 02/17/2019 Dysphagia, unspecified 08/29/2017 0 Abdominal pain 11/20/2014 09/01/2016 Trochanteric bursitis of left hip 07/24/2012 10/15/2018 GASTRITIS ANTRAL( W/O Hemorrhage) 07/13/2007 11/02/2015 POLYP STOMACH 07/13/2007 12/19/2019 Personal history of colonic polyps 06/02/2021 Overview: Colon polyps documented as of this encounter (statuses as of 11/14/2022) [facility] History of Past illness Narrative* Problem Noted Date Resolved Date History of pancreatitis 07/12/2018 10/15/20 18 History of diverticulitis 07/12/20182017 Elevated alkaline phosphatase level 07/12/2018 02/17/2019 Dysphagia, unspecified 08/29/2017 0 Abdominal pain 11/20/2014 09/01/2016 Trochanteric bursitis of left hip 07/24/2012 10/15/2018 GASTRITIS ANTRAL( W/O Hemorrhage) 07/13/2007 11/02/2015 POLYP STOMACH 07/13/2007 12/19/2019 Personal history of colonic polyps 06/02/2021 Overview: Colon polyps documented as of this encounter (statuses as of 11/14/2022) [facility] History of Past illness Narrative* Problem Noted Date Resolved Date History of pancreatitis 07/12/2018 10/15/20 18 History of diverticulitis 07/12/20182017 Elevated alkaline phosphatase level 07/12/2018 02/17/2019 Dysphagia, unspecified 08/29/2017 0 Abdominal pain 11/20/2014 09/01/2016 Trochanteric bursitis of left hip 07/24/2012 10/15/2018 GASTRITIS ANTRAL( W/O Hemorrhage) 07/13/2007 11/02/2015 POLYP STOMACH 07/13/2007 12/19/2019 Personal history of colonic polyps 06/02/2021 Overview: Colon polyps documented as of this encounter (statuses as of 11/28/2022) [facility] History of Past illness Narrative* Problem Noted Date Resolved Date History of pancreatitis 07/12/2018 10/15/20 18 History of diverticulitis 07/12/20182017 Elevated alkaline phosphatase level 07/12/2018 02/17/2019 Dysphagia, unspecified 08/29/2017 0 Abdominal pain 11/20/2014 09/01/2016 Trochanteric bursitis of left hip 07/24/2012 10/15/2018 GASTRITIS ANTRAL( W/O Hemorrhage) 07/13/2007 11/02/2015 POLYP STOMACH 07/13/2007 12/19/2019 Personal history of colonic polyps 06/02/2021 Overview: Colon polyps documented as of this encounter (statuses as of 11/28/2022) [facility] History of Past illness Narrative* Problem Noted Date Resolved Date History of pancreatitis 07/12/2018 10/15/20 18 History of diverticulitis 07/12/20182017 Elevated alkaline phosphatase level 07/12/2018 02/17/2019 Dysphagia, unspecified 08/29/2017 0 Abdominal pain 11/20/2014 09/01/2016 Trochanteric bursitis of left hip 07/24/2012 10/15/2018 GASTRITIS ANTRAL( W/O Hemorrhage) 07/13/2007 11/02/2015 POLYP STOMACH 07/13/2007 12/19/2019 Personal history of colonic polyps 06/02/2021 Overview: Colon polyps documented as of this encounter (statuses as of 12/05/2022) [facility] History of Past illness Narrative* Problem Noted Date Resolved Date History of pancreatitis 07/12/2018 10/15/20 18 History of diverticulitis 07/12/20182017 Elevated alkaline phosphatase level 07/12/2018 02/17/2019 Dysphagia, unspecified 08/29/2017 0 Abdominal pain 11/20/2014 09/01/2016 Trochanteric bursitis of left hip 07/24/2012 10/15/2018 GASTRITIS ANTRAL( W/O Hemorrhage) 07/13/2007 11/02/2015 POLYP STOMACH 07/13/2007 12/19/2019 Personal history of colonic polyps 06/02/2021 Overview: Colon polyps documented as of this encounter (statuses as of 12/05/2022) [facility] History of Past illness Narrative* Problem Noted Date Resolved Date History of pancreatitis 07/12/2018 10/15/20 18 History of diverticulitis 07/12/20182017 Elevated alkaline phosphatase level 07/12/2018 02/17/2019 Dysphagia, unspecified 08/29/2017 0 Abdominal pain 11/20/2014 09/01/2016 Trochanteric bursitis of left hip 07/24/2012 10/15/2018 GASTRITIS ANTRAL( W/O Hemorrhage) 07/13/2007 11/02/2015 POLYP STOMACH 07/13/2007 12/19/2019 Personal history of colonic polyps 06/02/2021 Overview: Colon polyps documented as of this encounter (statuses as of 12/06/2022) [facility] History of Past illness Narrative* Problem Noted Date Resolved Date History of pancreatitis 07/12/2018 10/15/20 18 History of diverticulitis 07/12/20182017 Elevated alkaline phosphatase level 07/12/2018 02/17/2019 Dysphagia, unspecified 08/29/2017 0 Abdominal pain 11/20/2014 09/01/2016 Trochanteric bursitis of left hip 07/24/2012 10/15/2018 GASTRITIS ANTRAL( W/O Hemorrhage) 07/13/2007 11/02/2015 POLYP STOMACH 07/13/2007 12/19/2019 Personal history of colonic polyps 06/02/2021 Overview: Colon polyps documented as of this encounter (statuses as of 12/21/2022) [facility]09-[facility]2018 History of Past illness Narrative* Problem Noted Date Resolved Date History of pancreatitis 07/12/2018 10/15/20 18 History of diverticulitis 07/12/20182017 Elevated alkaline phosphatase level 07/12/2018 02/17/2019 Dysphagia, unspecified 08/29/2017 0 Abdominal pain 11/20/2014 09/01/2016 Trochanteric bursitis of left hip 07/24/2012 10/15/2018 GASTRITIS ANTRAL( W/O Hemorrhage) 07/13/2007 11/02/2015 POLYP STOMACH 07/13/2007 12/19/2019 Personal history of colonic polyps 06/02/2021 Overview: Colon polyps documented as of this encounter (statuses as of 12/26/2022) [facility] History of Past illness Narrative* Problem Noted Date Resolved Date History of pancreatitis 07/12/2018 10/15/20 18 History of diverticulitis 07/12/20182017 Elevated alkaline phosphatase level 07/12/2018 02/17/2019 Dysphagia, unspecified 08/29/2017 0 Abdominal pain 11/20/2014 09/01/2016 Trochanteric bursitis of left hip 07/24/2012 10/15/2018 GASTRITIS ANTRAL( W/O Hemorrhage) 07/13/2007 11/02/2015 POLYP STOMACH 07/13/2007 12/19/2019 Personal history of colonic polyps 06/02/2021 Overview: Colon polyps documented as of this encounter (statuses as of 12/27/2022) [facility] History of Past illness Narrative* Problem Noted Date Resolved Date History of pancreatitis 07/12/2018 10/15/20 18 History of diverticulitis 07/12/20182017 Elevated alkaline phosphatase level 07/12/2018 02/17/2019 Dysphagia, unspecified 08/29/2017 0 Abdominal pain 11/20/2014 09/01/2016 Trochanteric bursitis of left hip 07/24/2012 10/15/2018 GASTRITIS ANTRAL( W/O Hemorrhage) 07/13/2007 11/02/2015 POLYP STOMACH 07/13/2007 12/19/2019 Personal history of colonic polyps 06/02/2021 Overview: Colon polyps documented as of this encounter (statuses as of 12/28/2022) [facility] History of Past illness Narrative* Problem Noted Date Resolved Date History of pancreatitis 07/12/2018 10/15/20 18 History of diverticulitis 07/12/20182017 Elevated alkaline phosphatase level 07/12/2018 02/17/2019 Dysphagia, unspecified 08/29/2017 0 Abdominal pain 11/20/2014 09/01/2016 Trochanteric bursitis of left hip 07/24/2012 10/15/2018 GASTRITIS ANTRAL( W/O Hemorrhage) 07/13/2007 11/02/2015 POLYP STOMACH 07/13/2007 12/19/2019 Personal history of colonic polyps 06/02/2021 Overview: Colon polyps documented as of this encounter (statuses as of 12/30/2022) [facility] History of Past illness Narrative* Problem Noted Date Resolved Date History of pancreatitis 07/12/2018 10/15/20 18 History of diverticulitis 07/12/20182017 Elevated alkaline phosphatase level 07/12/2018 02/17/2019 Dysphagia, unspecified 08/29/2017 0 Abdominal pain 11/20/2014 09/01/2016 Trochanteric bursitis of left hip 07/24/2012 10/15/2018 GASTRITIS ANTRAL( W/O Hemorrhage) 07/13/2007 11/02/2015 POLYP STOMACH 07/13/2007 12/19/2019 Personal history of colonic polyps 06/02/2021 Overview: Colon polyps documented as of this encounter (statuses as of 01/18/2023) [facility] History of Past illness Narrative* Problem Noted Date Resolved Date History of pancreatitis 07/12/2018 10/15/20 18 History of diverticulitis 07/12/20182017 Elevated alkaline phosphatase level 07/12/2018 02/17/2019 Dysphagia, unspecified 08/29/2017 0 Abdominal pain 11/20/2014 09/01/2016 Trochanteric bursitis of left hip 07/24/2012 10/15/2018 GASTRITIS ANTRAL( W/O Hemorrhage) 07/13/2007 11/02/2015 POLYP STOMACH 07/13/2007 12/19/2019 Personal history of colonic polyps 06/02/2021 Overview: Colon polyps documented as of this encounter (statuses as of 01/26/2023) [facility] History of Past illness Narrative* Problem Noted Date Resolved Date History of pancreatitis 07/12/2018 10/15/20 18 History of diverticulitis 07/12/20182017 Elevated alkaline phosphatase level 07/12/2018 02/17/2019 Dysphagia, unspecified 08/29/2017 0 Abdominal pain 11/20/2014 09/01/2016 Trochanteric bursitis of left hip 07/24/2012 10/15/2018 GASTRITIS ANTRAL( W/O Hemorrhage) 07/13/2007 11/02/2015 POLYP STOMACH 07/13/2007 12/19/2019 Personal history of colonic polyps 06/02/2021 Overview: Colon polyps documented as of this encounter (statuses as of 01/27/2023) [facility] History of Past illness Narrative* Problem Noted Date Resolved Date History of pancreatitis 07/12/2018 10/15/20 18 History of diverticulitis 07/12/20182017 Elevated alkaline phosphatase level 07/12/2018 02/17/2019 Dysphagia, unspecified 08/29/2017 0 Abdominal pain 11/20/2014 09/01/2016 Trochanteric bursitis of left hip 07/24/2012 10/15/2018 GASTRITIS ANTRAL( W/O Hemorrhage) 07/13/2007 11/02/2015 POLYP STOMACH 07/13/2007 12/19/2019 Personal history of colonic polyps 06/02/2021 Overview: Colon polyps documented as of this encounter (statuses as of 01/30/2023) [facility] History of Past illness Narrative* Problem Noted Date Resolved Date History of pancreatitis 07/12/2018 10/15/20 18 History of diverticulitis 07/12/20182017 Elevated alkaline phosphatase level 07/12/2018 02/17/2019 Dysphagia, unspecified 08/29/2017 0 Abdominal pain 11/20/2014 09/01/2016 Trochanteric bursitis of left hip 07/24/2012 10/15/2018 GASTRITIS ANTRAL( W/O Hemorrhage) 07/13/2007 11/02/2015 POLYP STOMACH 07/13/2007 12/19/2019 Personal history of colonic polyps 06/02/2021 Overview: Colon polyps documented as of this encounter (statuses as of 02/06/2023) [facility] History of Past illness Narrative* Problem Noted Date Resolved Date History of pancreatitis 07/12/2018 10/15/20 18 History of diverticulitis 07/12/20182017 Elevated alkaline phosphatase level 07/12/2018 02/17/2019 Dysphagia, unspecified 08/29/2017 0 Abdominal pain 11/20/2014 09/01/2016 Trochanteric bursitis of left hip 07/24/2012 10/15/2018 GASTRITIS ANTRAL( W/O Hemorrhage) 07/13/2007 11/02/2015 POLYP STOMACH 07/13/2007 12/19/2019 Personal history of colonic polyps 06/02/2021 Overview: Colon polyps documented as of this encounter (statuses as of 02/07/2023) [facility] History of Past illness Narrative* Problem Noted Date Resolved Date History of pancreatitis 07/12/2018 10/15/20 18 History of diverticulitis 07/12/20182017 Elevated alkaline phosphatase level 07/12/2018 02/17/2019 Dysphagia, unspecified 08/29/2017 0 Abdominal pain 11/20/2014 09/01/2016 Trochanteric bursitis of left hip 07/24/2012 10/15/2018 GASTRITIS ANTRAL( W/O Hemorrhage) 07/13/2007 11/02/2015 POLYP STOMACH 07/13/2007 12/19/2019 Personal history of colonic polyps 06/02/2021 Overview: Colon polyps documented as of this encounter (statuses as of 02/07/2023) [facility] History of Past illness Narrative* Problem Noted Date Resolved Date History of pancreatitis 07/12/2018 10/15/20 18 History of diverticulitis 07/12/20182017 Elevated alkaline phosphatase level 07/12/2018 02/17/2019 Dysphagia, unspecified 08/29/2017 0 Abdominal pain 11/20/2014 09/01/2016 Trochanteric bursitis of left hip 07/24/2012 10/15/2018 GASTRITIS ANTRAL( W/O Hemorrhage) 07/13/2007 11/02/2015 POLYP STOMACH 07/13/2007 12/19/2019 Personal history of colonic polyps 06/02/2021 Overview: Colon polyps documented as of this encounter (statuses as of 02/23/2023) [facility] History of Past illness Narrative* Problem Noted Date Resolved Date History of pancreatitis 07/12/2018 10/15/20 18 History of diverticulitis 07/12/20182017 Elevated alkaline phosphatase level 07/12/2018 02/17/2019 Dysphagia, unspecified 08/29/2017 0 Abdominal pain 11/20/2014 09/01/2016 Trochanteric bursitis of left hip 07/24/2012 10/15/2018 GASTRITIS ANTRAL( W/O Hemorrhage) 07/13/2007 11/02/2015 POLYP STOMACH 07/13/2007 12/19/2019 Personal history of colonic polyps 06/02/2021 Overview: Colon polyps documented as of this encounter (statuses as of 03/04/2023) [facility] History of Past illness Narrative* Problem Noted Date Resolved Date History of pancreatitis 07/12/2018 10/15/20 18 History of diverticulitis 07/12/20182017 Elevated alkaline phosphatase level 07/12/2018 02/17/2019 Dysphagia, unspecified 08/29/2017 0 Abdominal pain 11/20/2014 09/01/2016 Trochanteric bursitis of left hip 07/24/2012 10/15/2018 GASTRITIS ANTRAL( W/O Hemorrhage) 07/13/2007 11/02/2015 POLYP STOMACH 07/13/2007 12/19/2019 Personal history of colonic polyps 06/02/2021 Overview: Colon polyps documented as of this encounter (statuses as of 03/10/2023) [facility] History of Past illness Narrative* Problem Noted Date Resolved Date History of pancreatitis 07/12/2018 10/15/20 18 History of diverticulitis 07/12/20182017 Elevated alkaline phosphatase level 07/12/2018 02/17/2019 Dysphagia, unspecified 08/29/2017 0 Abdominal pain 11/20/2014 09/01/2016 Trochanteric bursitis of left hip 07/24/2012 10/15/2018 GASTRITIS ANTRAL( W/O Hemorrhage) 07/13/2007 11/02/2015 POLYP STOMACH 07/13/2007 12/19/2019 Personal history of colonic polyps 06/02/2021 Overview: Colon polyps documented as of this encounter (statuses as of 03/15/2023) [facility] History of Past illness Narrative* Problem Noted Date Resolved Date History of pancreatitis 07/12/2018 10/15/20 18 History of diverticulitis 07/12/20182017 Elevated alkaline phosphatase level 07/12/2018 02/17/2019 Dysphagia, unspecified 08/29/2017 0 Abdominal pain 11/20/2014 09/01/2016 Trochanteric bursitis of left hip 07/24/2012 10/15/2018 GASTRITIS ANTRAL( W/O Hemorrhage) 07/13/2007 11/02/2015 POLYP STOMACH 07/13/2007 12/19/2019 Personal history of colonic polyps 06/02/2021 Overview: Colon polyps documented as of this encounter (statuses as of 04/11/2023) [facility] History of Past illness Narrative* Problem Noted Date Resolved Date History of pancreatitis 07/12/2018 10/15/20 18 History of diverticulitis 07/12/20182017 Elevated alkaline phosphatase level 07/12/2018 02/17/2019 Dysphagia, unspecified 08/29/2017 0 Abdominal pain 11/20/2014 09/01/2016 Trochanteric bursitis of left hip 07/24/2012 10/15/2018 GASTRITIS ANTRAL( W/O Hemorrhage) 07/13/2007 11/02/2015 POLYP STOMACH 07/13/2007 12/19/2019 Personal history of colonic polyps 06/02/2021 Overview: Colon polyps documented as of this encounter (statuses as of 04/11/2023) [facility] History of Past illness Narrative* Problem Noted Date Resolved Date History of pancreatitis 07/12/2018 10/15/20 History of diverticulitis 07/12/20182017 Elevated alkaline phosphatase level 07/12/2018 02/17/2019 Dysphagia, unspecified 08/29/2017 Abdominal pain 11/20/2014 09/01/2016 Trochanteric bursitis of left hip 07/24/2012 10/15/2018 GASTRITIS ANTRAL( W/O Hemorrhage) 07/13/2007 11/02/2015 POLYP STOMACH 07/13/2007 12/19/2019 Personal history of colonic polyps 06/02/2021 Overview: Colon polyps documented as of this encounter (statuses as of 05/02/2023) [facility] History of Past illness Narrative* Problem Noted Date Diagnosed Date Resolved Date History of pancreatitis 07/12/201810/06 History of diverticulitis 07/12/2018 Elevated alkaline phosphatase level 07/12/2018 02/17/2019 Dysphagia, unspecified 08/29/201712/19 Abdominal pain 11/20/2014 09/01/2016 Trochanteric bursitis of left hip 07/24/2012 10/15/2018 GASTRITIS ANTRAL( W/O Hemorrhage) 07/13/2007 11/02/2015 POLYP STOMACH 07/13/2007 12/19/2019 Personal history of colonic polyps 06/02/2021 Overview: Colon polyps documented as of this encounter (statuses as of 05/19/2023) [facility] History of Past illness Narrative* Problem Noted Date Diagnosed Date Resolved Date History of pancreatitis 07/12/201810/06 History of diverticulitis 07/12/2018 Elevated alkaline phosphatase level 07/12/2018 02/17/2019 Dysphagia, unspecified 08/29/201712/19 Abdominal pain 11/20/2014 09/01/2016 Trochanteric bursitis of left hip 07/24/2012 10/15/2018 GASTRITIS ANTRAL( W/O Hemorrhage) 07/13/2007 11/02/2015 POLYP STOMACH 07/13/2007 12/19/2019 Personal history of colonic polyps 06/02/2021 Overview: Colon polyps documented as of this encounter (statuses as of 06/06/2023) [facility] History of Past illness Narrative* Problem Noted Date Diagnosed Date Resolved Date History of pancreatitis 07/12/201810/06 History of diverticulitis 07/12/2018 Elevated alkaline phosphatase level 07/12/2018 02/17/2019 Dysphagia, unspecified 08/29/201712/19 Abdominal pain 11/20/2014 09/01/2016 Trochanteric bursitis of left hip 07/24/2012 10/15/2018 GASTRITIS ANTRAL( W/O Hemorrhage) 07/13/2007 11/02/2015 POLYP STOMACH 07/13/2007 12/19/2019 Personal history of colonic polyps 06/02/2021 Overview: Colon polyps documented as of this encounter (statuses as of 06/07/2023) [facility] History of Past illness Narrative* Problem Noted Date Diagnosed Date Resolved Date History of pancreatitis 07/12/201810/06 History of diverticulitis 07/12/2018 Elevated alkaline phosphatase level 07/12/2018 02/17/2019 Dysphagia, unspecified 08/29/201712/19 Abdominal pain 11/20/2014 09/01/2016 Trochanteric bursitis of left hip 07/24/2012 10/15/2018 GASTRITIS ANTRAL( W/O Hemorrhage) 07/13/2007 11/02/2015 POLYP STOMACH 07/13/2007 12/19/2019 Personal history of colonic polyps 06/02/2021 Overview: Colon polyps documented as of this encounter (statuses as of 06/13/2023) [facility] History of Past illness Narrative* Problem Noted Date Diagnosed Date Resolved Date History of pancreatitis 07/12/201810/06 History of diverticulitis 07/12/2018 Elevated alkaline phosphatase level 07/12/2018 02/17/2019 Dysphagia, unspecified 08/29/201712/19 Abdominal pain 11/20/2014 09/01/2016 Trochanteric bursitis of left hip 07/24/2012 10/15/2018 GASTRITIS ANTRAL( W/O Hemorrhage) 07/13/2007 11/02/2015 POLYP STOMACH 07/13/2007 12/19/2019 Personal history of colonic polyps 06/02/2021 Overview: Colon polyps documented as of this encounter (statuses as of 06/21/2023) [facility] History of Past illness Narrative* Problem Noted Date Diagnosed Date Resolved Date History of pancreatitis 07/12/201810/06 History of diverticulitis 07/12/2018 Elevated alkaline phosphatase level 07/12/2018 02/17/2019 Dysphagia, unspecified 08/29/201712/19 Abdominal pain 11/20/2014 09/01/2016 Trochanteric bursitis of left hip 07/24/2012 10/15/2018 GASTRITIS ANTRAL( W/O Hemorrhage) 07/13/2007 11/02/2015 POLYP STOMACH 07/13/2007 12/19/2019 Personal history of colonic polyps 06/02/2021 Overview: Colon polyps documented as of this encounter (statuses as of 06/22/2023) [facility] History of Past illness Narrative* Problem Noted Date Diagnosed Date Resolved Date History of pancreatitis 07/12/201810/06 History of diverticulitis 07/12/2018 Elevated alkaline phosphatase level 07/12/2018 02/17/2019 Dysphagia, unspecified 08/29/201712/19 Abdominal pain 11/20/2014 09/01/2016 Trochanteric bursitis of left hip 07/24/2012 10/15/2018 GASTRITIS ANTRAL( W/O Hemorrhage) 07/13/2007 11/02/2015 POLYP STOMACH 07/13/2007 12/19/2019 Personal history of colonic polyps 06/02/2021 Overview: Colon polyps documented as of this encounter (statuses as of 06/26/2023) [facility] History of Past illness Narrative* Problem Noted Date Diagnosed Date Resolved Date History of pancreatitis 07/12/201810/06 History of diverticulitis 07/12/2018 Elevated alkaline phosphatase level 07/12/2018 02/17/2019 Dysphagia, unspecified 08/29/201712/19 Abdominal pain 11/20/2014 09/01/2016 Trochanteric bursitis of left hip 07/24/2012 10/15/2018 GASTRITIS ANTRAL( W/O Hemorrhage) 07/13/2007 11/02/2015 POLYP STOMACH 07/13/2007 12/19/2019 Personal history of colonic polyps 06/02/2021 Overview: Colon polyps documented as of this encounter (statuses as of 06/30/2023) [facility] History of Past illness Narrative* Problem Noted Date Diagnosed Date Resolved Date History of pancreatitis 07/12/201810/06 History of diverticulitis 07/12/2018 Elevated alkaline phosphatase level 07/12/2018 02/17/2019 Dysphagia, unspecified 08/29/201712/19 Abdominal pain 11/20/2014 09/01/2016 Trochanteric bursitis of left hip 07/24/2012 10/15/2018 GASTRITIS ANTRAL( W/O Hemorrhage) 07/13/2007 11/02/2015 POLYP STOMACH 07/13/2007 12/19/2019 Personal history of colonic polyps 06/02/2021 Overview: Colon polyps documented as of this encounter (statuses as of 07/14/2023) [facility] History of Past illness Narrative* Problem Noted Date Diagnosed Date Resolved Date History of pancreatitis 07/12/201810/06 History of diverticulitis 07/12/2018 Elevated alkaline phosphatase level 07/12/2018 02/17/2019 Dysphagia, unspecified 08/29/201712/19 Abdominal pain 11/20/2014 09/01/2016 Trochanteric bursitis of left hip 07/24/2012 10/15/2018 GASTRITIS ANTRAL( W/O Hemorrhage) 07/13/2007 11/02/2015 POLYP STOMACH 07/13/2007 12/19/2019 Personal history of colonic polyps 06/02/2021 Overview: Colon polyps documented as of this encounter (statuses as of 07/26/2023) [facility] History of Past illness Narrative* Problem Noted Date Diagnosed Date Resolved Date History of pancreatitis 07/12/201810/06 History of diverticulitis 07/12/2018 Elevated alkaline phosphatase level 07/12/2018 02/17/2019 Dysphagia, unspecified 08/29/201712/19 Abdominal pain 11/20/2014 09/01/2016 Trochanteric bursitis of left hip 07/24/2012 10/15/2018 GASTRITIS ANTRAL( W/O Hemorrhage) 07/13/2007 11/02/2015 POLYP STOMACH 07/13/2007 12/19/2019 Personal history of colonic polyps 06/02/2021 Overview: Colon polyps documented as of this encounter (statuses as of 07/27/2023) [facility] History of Past illness Narrative* Problem Noted Date Diagnosed Date Resolved Date History of pancreatitis 07/12/201810/06 History of diverticulitis 07/12/2018 Elevated alkaline phosphatase level 07/12/2018 02/17/2019 Dysphagia, unspecified 08/29/201712/19 Abdominal pain 11/20/2014 09/01/2016 Trochanteric bursitis of left hip 07/24/2012 10/15/2018 GASTRITIS ANTRAL( W/O Hemorrhage) 07/13/2007 11/02/2015 POLYP STOMACH 07/13/2007 12/19/2019 Personal history of colonic polyps 06/02/2021 Overview: Colon polyps documented as of this encounter (statuses as of 07/28/2023) [facility] History of Past illness Narrative* Problem Noted Date Diagnosed Date Resolved Date History of pancreatitis 07/12/201810/06 History of diverticulitis 07/12/2018 Elevated alkaline phosphatase level 07/12/2018 02/17/2019 Dysphagia, unspecified 08/29/201712/19 Abdominal pain 11/20/2014 09/01/2016 Trochanteric bursitis of left hip 07/24/2012 10/15/2018 GASTRITIS ANTRAL( W/O Hemorrhage) 07/13/2007 11/02/2015 POLYP STOMACH 07/13/2007 12/19/2019 Personal history of colonic polyps 06/02/2021 Overview: Colon polyps documented as of this encounter (statuses as of 08/19/2023) [facility] History of Past illness Narrative* Problem Noted Date Diagnosed Date Resolved Date History of pancreatitis 07/12/201810/06 History of diverticulitis 07/12/2018 Elevated alkaline phosphatase level 07/12/2018 02/17/2019 Dysphagia, unspecified 08/29/201712/19 Abdominal pain 11/20/2014 09/01/2016 Trochanteric bursitis of left hip 07/24/2012 10/15/2018 GASTRITIS ANTRAL( W/O Hemorrhage) 07/13/2007 11/02/2015 POLYP STOMACH 07/13/2007 12/19/2019 Personal history of colonic polyps 06/02/2021 Overview: Colon polyps documented as of this encounter (statuses as of 08/22/2023) [facility] History of Past illness Narrative* Problem Noted Date Diagnosed Date Resolved Date History of pancreatitis 07/12/201810/06 History of diverticulitis 07/12/2018 Elevated alkaline phosphatase level 07/12/2018 02/17/2019 Dysphagia, unspecified 08/29/201712/19 Abdominal pain 11/20/2014 09/01/2016 Trochanteric bursitis of left hip 07/24/2012 10/15/2018 GASTRITIS ANTRAL( W/O Hemorrhage) 07/13/2007 11/02/2015 POLYP STOMACH 07/13/2007 12/19/2019 Personal history of colonic polyps 06/02/2021 Overview: Colon polyps documented as of this encounter (statuses as of 08/30/2023) [facility] History of Past illness Narrative* Problem Noted Date Diagnosed Date Resolved Date History of pancreatitis 07/12/201810/06 History of diverticulitis 07/12/2018 Elevated alkaline phosphatase level 07/12/2018 02/17/2019 Dysphagia, unspecified 08/29/201712/19 Abdominal pain 11/20/2014 09/01/2016 Trochanteric bursitis of left hip 07/24/2012 10/15/2018 GASTRITIS ANTRAL( W/O Hemorrhage) 07/13/2007 11/02/2015 POLYP STOMACH 07/13/2007 12/19/2019 Personal history of colonic polyps 06/02/2021 Overview: Colon polyps documented as of this encounter (statuses as of 09/19/2023) [facility] History of Past illness Narrative* Problem Noted Date Diagnosed Date Resolved Date History of pancreatitis 07/12/201810/06 History of diverticulitis 07/12/2018 Elevated alkaline phosphatase level 07/12/2018 02/17/2019 Dysphagia, unspecified 08/29/201712/19 Abdominal pain 11/20/2014 09/01/2016 Trochanteric bursitis of left hip 07/24/2012 10/15/2018 GASTRITIS ANTRAL( W/O Hemorrhage) 07/13/2007 11/02/2015 POLYP STOMACH 07/13/2007 12/19/2019 Personal history of colonic polyps 06/02/2021 Overview: Colon polyps documented as of this encounter (statuses as of 09/27/2023) [facility] History of Past illness Narrative* Problem Noted Date Diagnosed Date Resolved Date History of pancreatitis 07/12/201810/06 History of diverticulitis 07/12/2018 Elevated alkaline phosphatase level 07/12/2018 02/17/2019 Dysphagia, unspecified 08/29/201712/19 Abdominal pain 11/20/2014 09/01/2016 Trochanteric bursitis of left hip 07/24/2012 10/15/2018 GASTRITIS ANTRAL( W/O Hemorrhage) 07/13/2007 11/02/2015 POLYP STOMACH 07/13/2007 12/19/2019 Personal history of colonic polyps 06/02/2021 Overview: Colon polyps documented as of this encounter (statuses as of 10/11/2023) [facility] History of Past illness Narrative* Problem Noted Date Diagnosed Date Resolved Date History of pancreatitis 07/12/201810/06 History of diverticulitis 07/12/2018 Elevated alkaline phosphatase level 07/12/2018 02/17/2019 Dysphagia, unspecified 08/29/201712/19 Abdominal pain 11/20/2014 09/01/2016 Trochanteric bursitis of left hip 07/24/2012 10/15/2018 GASTRITIS ANTRAL( W/O Hemorrhage) 07/13/2007 11/02/2015 POLYP STOMACH 07/13/2007 12/19/2019 Personal history of colonic polyps 06/02/2021 Overview: Colon polyps documented as of this encounter (statuses as of 10/21/2023) [facility] History of Past illness Narrative* Problem Noted Date Diagnosed Date Resolved Date History of pancreatitis 07/12/201810/06 History of diverticulitis 07/12/2018 Elevated alkaline phosphatase level 07/12/2018 02/17/2019 Dysphagia, unspecified 08/29/201712/19 Abdominal pain 11/20/2014 09/01/2016 Trochanteric bursitis of left hip 07/24/2012 10/15/2018 GASTRITIS ANTRAL( W/O Hemorrhage) 07/13/2007 11/02/2015 POLYP STOMACH 07/13/2007 12/19/2019 Personal history of colonic polyps 06/02/2021 Overview: Colon polyps documented as of this encounter (statuses as of 10/27/2023) [facility] History of Past illness Narrative* Problem Noted Date Diagnosed Date Resolved Date History of pancreatitis 07/12/201810/06 History of diverticulitis 07/12/2018 Elevated alkaline phosphatase level 07/12/2018 02/17/2019 Dysphagia, unspecified 08/29/201712/19 Abdominal pain 11/20/2014 09/01/2016 Trochanteric bursitis of left hip 07/24/2012 10/15/2018 GASTRITIS ANTRAL( W/O Hemorrhage) 07/13/2007 11/02/2015 POLYP STOMACH 07/13/2007 12/19/2019 Personal history of colonic polyps 06/02/2021 Overview: Colon polyps documented as of this encounter (statuses as of 10/27/2023) [facility] History of Past illness Narrative* Problem Noted Date Diagnosed Date Resolved Date History of pancreatitis 07/12/201810/06 History of diverticulitis 07/12/2018 Elevated alkaline phosphatase level 07/12/2018 02/17/2019 Dysphagia, unspecified 08/29/201712/19 Abdominal pain 11/20/2014 09/01/2016 Trochanteric bursitis of left hip 07/24/2012 10/15/2018 GASTRITIS ANTRAL( W/O Hemorrhage) 07/13/2007 11/02/2015 POLYP STOMACH 07/13/2007 12/19/2019 Personal history of colonic polyps 06/02/2021 Overview: Colon polyps documented as of this encounter (statuses as of 12/11/2023) [facility] History of Past illness Narrative* Problem Noted Date Diagnosed Date Resolved Date History of pancreatitis 07/12/201810/06 History of diverticulitis 07/12/2018 Elevated alkaline phosphatase level 07/12/2018 02/17/2019 Abdominal pain 11/20/2014 09/01/2016 Trochanteric bursitis of left hip 07/24/2012 10/15/2018 GASTRITIS ANTRAL( W/O Hemorrhage) 07/13/2007 11/02/2015 POLYP STOMACH 07/13/2007 12/19/2019 Personal history of colonic polyps 06/02/2021 Overview: Colon polyps documented as of this encounter (statuses as of 01/04/2024) [facility] History of Past illness Narrative* Problem Noted Date Diagnosed Date Resolved Date History of pancreatitis 07/12/201810/06 History of diverticulitis 07/12/2018 Elevated alkaline phosphatase level 07/12/2018 02/17/2019 Abdominal pain 11/20/2014 09/01/2016 Trochanteric bursitis of left hip 07/24/2012 10/15/2018 GASTRITIS ANTRAL( W/O Hemorrhage) 07/13/2007 11/02/2015 POLYP STOMACH 07/13/2007 12/19/2019 Personal history of colonic polyps 06/02/2021 Overview: Colon polyps documented as of this encounter (statuses as of 01/04/2024) [facility] History of Past illness Narrative* Problem Noted Date Diagnosed Date Resolved Date History of pancreatitis 07/12/201810/06 History of diverticulitis 07/12/2018 Elevated alkaline phosphatase level 07/12/2018 02/17/2019 Abdominal pain 11/20/2014 09/01/2016 Trochanteric bursitis of left hip 07/24/2012 10/15/2018 GASTRITIS ANTRAL( W/O Hemorrhage) 07/13/2007 11/02/2015 POLYP STOMACH 07/13/2007 12/19/2019 Personal history of colonic polyps 06/02/2021 Overview: Colon polyps documented as of this encounter (statuses as of 01/18/2024) [facility] History of Past illness Narrative* Problem Noted Date Diagnosed Date Resolved Date History of pancreatitis 07/12/201810/06 History of diverticulitis 07/12/2018 Elevated alkaline phosphatase level 07/12/2018 02/17/2019 Abdominal pain 11/20/2014 09/01/2016 Trochanteric bursitis of left hip 07/24/2012 10/15/2018 GASTRITIS ANTRAL( W/O Hemorrhage) 07/13/2007 11/02/2015 POLYP STOMACH 07/13/2007 12/19/2019 Personal history of colonic polyps 06/02/2021 Overview: Colon polyps documented as of this encounter (statuses as of 02/07/2024) [facility] History of Past illness Narrative* Problem Noted Date Diagnosed Date Resolved Date History of pancreatitis 07/12/201810/06 History of diverticulitis 07/12/2018 Elevated alkaline phosphatase level 07/12/2018 02/17/2019 Abdominal pain 11/20/2014 09/01/2016 Trochanteric bursitis of left hip 07/24/2012 10/15/2018 GASTRITIS ANTRAL( W/O Hemorrhage) 07/13/2007 11/02/2015 POLYP STOMACH 07/13/2007 12/19/2019 Personal history of colonic polyps 06/02/2021 Overview: Colon polyps documented as of this encounter (statuses as of 02/12/2024) [facility] History of Past illness Narrative* Problem Noted Date Diagnosed Date Resolved Date History of pancreatitis 07/12/201810/06 History of diverticulitis 07/12/2018 Elevated alkaline phosphatase level 07/12/2018 02/17/2019 Abdominal pain 11/20/2014 09/01/2016 Trochanteric bursitis of left hip 07/24/2012 10/15/2018 GASTRITIS ANTRAL( W/O Hemorrhage) 07/13/2007 11/02/2015 POLYP STOMACH 07/13/2007 12/19/2019 Personal history of colonic polyps 06/02/2021 Overview: Colon polyps documented as of this encounter (statuses as of 02/12/2024) [facility] History of Past illness Narrative* Problem Noted Date Diagnosed Date Resolved Date History of pancreatitis 07/12/201810/06 History of diverticulitis 07/12/2018 Elevated alkaline phosphatase level 07/12/2018 02/17/2019 Abdominal pain 11/20/2014 09/01/2016 Trochanteric bursitis of left hip 07/24/2012 10/15/2018 GASTRITIS ANTRAL( W/O Hemorrhage) 07/13/2007 11/02/2015 POLYP STOMACH 07/13/2007 12/19/2019 Personal history of colonic polyps 06/02/2021 Overview: Colon polyps documented as of this encounter (statuses as of 02/22/2024) [facility] Trigger finger, unspecified finger, unspecified laterality- [facility] Neck pain- Primary Cervicalgia Trigger finger, unspecified finger, unspecified laterality [facility] Neck pain Cervicalgia [facility] Diagnosis Spinal stenosis of cervical region Spinal stenosis in cervical region [facility] Diagnosis Spinal stenosis of cervical region Spinal stenosis in cervical region [facility] Diagnosis Ankle swelling, right- Primary Generalized weakness Other malaise and fatigue Essential hypertension, benign Herpes zoster without complication Herpes zoster without mention of complication [facility] Diagnosis Prediabetes- Primary Other abnormal glucose [facility] Diagnosis Essential hypertension, benign- Primary [facility] Diagnosis Screening mamm[facility] for [facility] cancer- [facility] Diagnosis Essential hypertension, benign- Primary [facility] Diagnosis Trigger ring finger of right hand- Primary Trigger finger (acquired) [facility] Diagnosis Trigger ring finger of right hand- Primary Trigger finger (acquired) Trigger ring finger of right hand Trigger finger (acquired) [facility] Diagnosis Postablative hypothyroidism Other postablative hypothyroidism Trigger ring finger of right hand Trigger finger (acquired) [facility] Diagnosis 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 Degeneration of thoracic or thoracolumbar intervertebral disc Cervical radiculopathy Brachial neuritis or radiculitis nos Trigger ring finger of right hand Trigger finger (acquired) [facility] Diagnosis Headache, unspecified headache type- Primary Nausea and vomiting, unspecified vomiting type [facility] Diagnosis Essential hypertension, benign- Primary ASHD (arteriosclerotic heart disease) Coronary atherosclerosis of unspecified type of vessel, tetlin or graft Stage 3 chronic kidney disease, unspecified whether stage 3a or 3b CKD (HCC) Postablative hypothyroidism Other postablative hypothyroidism Headache, unspecified headache type Prediabetes Other abnormal glucose [facility] Diagnosis Headache, unspecified headache type [facility] Diagnosis Small vessel disease (HCC) [I73.9 (ICD-10-CM)]- Primary Peripheral vascular disease, unspecified Primary hypertension Unspecified essential hypertension Valvular heart disease Endocarditis, valve unspecified, unspecified cause [facility] Diagnosis Hypertension, unspecified type- Primary 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* Diagnosis Prediabetes Other abnormal glucose documented in this encounter [facility] note* Diagnosis Chest pain, unspecified type- Primary Palpitations Interstitial pulmonary disease, unspecified (HCC) documented in this encounter [facility] noteNo assessment information availableWLima City [facility] Work Phone: Evaluation note* Diagnosis Syncope, unspecified syncope type- Primary documented in this encounter [facility] note* Diagnosis Syncope, unspecified syncope type- Primary Dyspnea on exertion Other dyspnea and respiratory abnormality Primary hypertension Unspecified essential hypertension Hyperlipidemia, unspecified hyperlipidemia type Paroxysmal SVT (supraventricular tachycardia) (HCC) Paroxysmal supraventricular tachycardia Small vessel disease (HCC) [I73.9 (ICD-10-CM)] Peripheral vascular disease, unspecified Obesity, Class I, BMI 30-34.9 Obesity, unspecified Pre-operative cardiovascular examination [facility]* Diagnosis 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 Degeneration of thoracic or thoracolumbar intervertebral disc Cervical radiculopathy Brachial neuritis or radiculitis nos [facility] Diagnosis Chronic right flank pain- Primary Abdominal pain, unspecified site Chronic upper abdominal pain Headache, unspecified headache type documented in this encounter [facility] note* Diagnosis SOB (shortness of breath) Shortness of breath [facility] Diagnosis SOB (shortness of breath) Shortness of breath [facility]* Diagnosis Other chest pain- Primary SOB (shortness of breath) Shortness of breath [facility]* Diagnosis Postablative hypothyroidism Other postablative hypothyroidism documented in this encounter 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 Degeneration of thoracic or thoracolumbar intervertebral disc Cervical radiculopathy Brachial neuritis or radiculitis nos [facility] Diagnosis 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 Degeneration of thoracic or thoracolumbar intervertebral disc Cervical radiculopathy Brachial neuritis or radiculitis nos [facility]* Diagnosis Encounter for other screening for malignant neoplasm of breast- Primary [facility]* Diagnosis 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 Degeneration of thoracic or thoracolumbar intervertebral disc Cervical radiculopathy Brachial neuritis or radiculitis nos [facility]* Diagnosis Epigastric abdominal pain- Primary Abdominal pain, epigastric Esophageal dysphagia Dysphagia, pharyngoesophageal phase Hiatal hernia Diaphragmatic hernia without mention of obstruction or gangrene [facility]* Diagnosis Prediabetes- Primary Other abnormal glucose ASHD (arteriosclerotic heart disease) Coronary atherosclerosis of unspecified type of vessel, tetlin or graft Essential hypertension, benign Hyperlipidemia, unspecified hyperlipidemia type Postablative hypothyroidism Other postablative hypothyroidism Stage 3a chronic kidney disease (HCC) [facility] Diagnosis Postablative hypothyroidism Other postablative hypothyroidism [facility]* Diagnosis Headache, unspecified headache type- Primary Trigger ring finger of left hand Trigger finger (acquired) [facility]* Diagnosis Hyponatremia- Primary Hyposmolality and/or hyponatremia [facility]* Diagnosis Esophageal dysphagia- Primary Dysphagia, pharyngoesophageal phase [facility]* Diagnosis 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 Degeneration of thoracic or thoracolumbar intervertebral disc Cervical radiculopathy Brachial neuritis or radiculitis nos [facility]* Diagnosis Trigger ring finger of left hand- Primary Trigger finger (acquired) [facility] Diagnosis Transient visual loss of both eyes- Primary Transient visual loss [facility] Diagnosis Primary hypertension- Primary Unspecified essential hypertension Paroxysmal SVT (supraventricular tachycardia) (HCC) Paroxysmal supraventricular tachycardia Pure hypercholesterolemia Microvascular angina (HCC) [facility]* Diagnosis Episodic lightheadedness- Primary Dizziness and giddiness Hypoglycemia Hypoglycemia, unspecified Hyponatremia Hyposmolality and/or hyponatremia Essential hypertension, benign Hyperlipidemia, unspecified hyperlipidemia type ASHD (arteriosclerotic heart disease) Coronary atherosclerosis of unspecified type of vessel, tetlin or graft Paroxysmal SVT (supraventricular tachycardia) (HCC) Paroxysmal supraventricular tachycardia Postablative hypothyroidism Other postablative hypothyroidism Prediabetes Other abnormal glucose Stage 3a chronic kidney disease (HCC) Age-related osteoporosis without current pathological fracture Senile osteoporosis [facility]* Diagnosis Pre-operative examination- Primary Preoperative examination, unspecified Diverticulitis Diverticulitis of colon (without mention of hemorrhage) 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 Trigeminal neuralgia ASHD (arteriosclerotic heart disease) Coronary atherosclerosis of unspecified type of vessel, tetlin or graft Lung nodule < 6cm on CT Gastroesophageal reflux disease, unspecified whether esophagitis present Stage 3a chronic kidney disease (HCC) Postablative hypothyroidism Other postablative hypothyroidism Obesity, Class I, BMI 30-34.9 Obesity, unspecified Venous insufficiency (chronic) (peripheral) Unspecified venous (peripheral) insufficiency Valvular heart disease Endocarditis, valve unspecified, unspecified cause Episodic lightheadedness- Primary Dizziness and giddiness Diabetes mellitus type II (HCC) Diverticulitis Diverticulitis of colon (without mention of hemorrhage) [facility] Diagnosis Pre-operative examination- Primary Preoperative examination, unspecified Diverticulitis Diverticulitis of colon (without mention of hemorrhage) 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 Trigeminal neuralgia ASHD (arteriosclerotic heart disease) Coronary atherosclerosis of unspecified type of vessel, tetlin or graft Lung nodule < 6cm on CT Gastroesophageal reflux disease, unspecified whether esophagitis present Stage 3a chronic kidney disease (HCC) Postablative hypothyroidism Other postablative hypothyroidism Obesity, Class I, BMI 30-34.9 Obesity, unspecified Venous insufficiency (chronic) (peripheral) Unspecified venous (peripheral) insufficiency Valvular heart disease Endocarditis, valve unspecified, unspecified cause Age-related osteoporosis without current pathological fracture Senile osteoporosis [facility]* Diagnosis Pre-operative examination- Primary Preoperative examination, unspecified Diverticulitis Diverticulitis of colon (without mention of hemorrhage) 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 Trigeminal neuralgia ASHD (arteriosclerotic heart disease) Coronary atherosclerosis of unspecified type of vessel, tetlin or graft Lung nodule < 6cm on CT Gastroesophageal reflux disease, unspecified whether esophagitis present Stage 3a chronic kidney disease (HCC) Postablative hypothyroidism Other postablative hypothyroidism Obesity, Class I, BMI 30-34.9 Obesity, unspecified Venous insufficiency (chronic) (peripheral) Unspecified venous (peripheral) insufficiency Valvular heart disease Endocarditis, valve unspecified, unspecified cause Chest pain, unspecified type Palpitations documented in this encounter 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 Trigeminal neuralgia ASHD (arteriosclerotic heart disease) Coronary atherosclerosis of unspecified type of vessel, tetlin or graft Lung nodule < 6cm on CT Gastroesophageal reflux disease, unspecified whether esophagitis present Stage 3a chronic kidney disease (HCC) Postablative hypothyroidism Other postablative hypothyroidism Obesity, Class I, BMI 30-34.9 Obesity, unspecified Venous insufficiency (chronic) (peripheral) Unspecified venous (peripheral) insufficiency Valvular heart disease Endocarditis, valve unspecified, unspecified cause 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 Trigeminal neuralgia ASHD (arteriosclerotic heart disease) Coronary atherosclerosis of unspecified type of vessel, tetlin or graft Lung nodule < 6cm on CT Gastroesophageal reflux disease, unspecified whether esophagitis present Stage 3a chronic kidney disease (HCC) Postablative hypothyroidism Other postablative hypothyroidism Obesity, Class I, BMI 30-34.9 Obesity, unspecified Venous insufficiency (chronic) (peripheral) Unspecified venous (peripheral) insufficiency Valvular heart disease Endocarditis, valve unspecified, unspecified cause Trigger ring finger of left hand- Primary Trigger finger (acquired) Trigger ring finger of left hand Trigger finger (acquired) [facility] Diagnosis Pre-operative examination- Primary Preoperative examination, unspecified Diverticulitis Diverticulitis of colon (without mention of hemorrhage) 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 Trigeminal neuralgia ASHD (arteriosclerotic heart disease) Coronary atherosclerosis of unspecified type of vessel, tetlin or graft Lung nodule < 6cm on CT Gastroesophageal reflux disease, unspecified whether esophagitis present Stage 3a chronic kidney disease (HCC) Postablative hypothyroidism Other postablative hypothyroidism Obesity, Class I, BMI 30-34.9 Obesity, unspecified Venous insufficiency (chronic) (peripheral) Unspecified venous (peripheral) insufficiency Valvular heart disease Endocarditis, valve unspecified, unspecified cause Pre-operative examination- Primary Preoperative examination, unspecified Microvascular angina (HCC) Paroxysmal SVT (supraventricular tachycardia) (HCC) Paroxysmal supraventricular tachycardia Hyperlipidemia, unspecified hyperlipidemia type Primary hypertension Unspecified essential hypertension ASHD (arteriosclerotic heart disease) Coronary atherosclerosis of unspecified type of vessel, tetlin or graft 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 Trigeminal neuralgia Valvular heart disease Endocarditis, valve unspecified, unspecified cause Mild pulmonary hypertension (HCC) Other chronic pulmonary heart diseases Hiatal hernia Diaphragmatic hernia without mention of obstruction or gangrene Esophageal dysphagia Dysphagia, pharyngoesophageal phase Diverticulitis Diverticulitis of colon (without mention of hemorrhage) Gastroesophageal reflux disease, unspecified whether esophagitis present Chronic hypokalemia Hypopotassemia Stage 3a chronic kidney disease (HCC) Diabetes mellitus type II (HCC) Postablative hypothyroidism Other postablative hypothyroidism Age-related osteoporosis without current pathological fracture Senile osteoporosis Obesity, Class I, BMI 30-34.9 Obesity, unspecified Interstitial pulmonary disease, unspecified (HCC) Trigger ring finger of left hand Trigger finger (acquired) * Assessment & Plan Note - Micheline Keys APRN.CASH ACCOUNTING CLERK - 08/08/2024 10:28 AM EDT Associated Problem(s): Interstitial pulmonary disease, unspecified (HCC) Assessment: no documentation found supporting dx except from Dr. Hartmann 04/2016 Testing and notes reviewed. 1. Baseline spirometry is normal, no response to inhaled bronchodilator. 2. Methacholine Inhalation Challenge is negative, excluding asthma. 3. CXR is clear. This and normal spirometry excludes interstitial lung disease, COPD * Assessment & Plan Note - Micheline Keys APRN.CNP - 08/08/2024 10:26 AM EDT Associated Problem(s): Lung nodule < 6cm on CT Assessment: under surveillance by PCP * Assessment & Plan Note - Micheline Keys APRN.CNP - 08/08/2024 10:25 AM EDT Associated Problem(s): Obesity, Class I, BMI 30-34.9 Assessment: Body mass index is 33.79 kg/m . * Assessment & Plan Note - Micheline Keys APRN.CNP - 08/08/2024 10:23 AM EDT Associated Problem(s): Osteoporosis Assessment: recently rx Fosamax has not started yet * Assessment & Plan Note - Micheline Keys APRN.CNP - 08/08/2024 10:23 AM EDT Associated Problem(s): Postablative hypothyroidism Assessment: stable on rx * Assessment & Plan Note - Micheline Keys APRN.CNP - 08/08/2024 10:23 AM EDT Associated Problem(s): Diabetes mellitus type II (HCC) Assessment: diet controlled Hemoglobin A1C (%) Date Value 05/29/2024 6.5 09/27/2019 6.2 * Assessment & Plan Note - Micheline Keys APRN.CNP - 08/08/2024 10:22 AM EDT Associated Problem(s): Stage 3a chronic kidney disease (HCC) Assessment: Creatinine Date Value Ref Range Status 05/29/2024 1.08 (H) 0.58 - 0.96 mg/dL Final 05/16/2024 0.97 (H) 0.58 - 0.96 mg/dL Final 03/06/2024 1.07 (H) 0.58 - 0.96 mg/dL Final 01/18/2024 1.10 (H) 0.58 - 0.96 mg/dL Final * Assessment & Plan Note - Micheline Keys APRN.CNP - 08/08/2024 10:22 AM EDT Associated Problem(s): Chronic hypokalemia Assessment: hx, on rx Potassium Date Value Ref Range Status 05/29/2024 4.2 3.7 - 5.1 mmol/L Final * Assessment & Plan Note - Micheline Keys APRN.CNP - 08/08/2024 10:22 AM EDT Associated Problem(s): Gastroesophageal reflux disease Assessment: controlled on rx, small hiatal hernia present * Assessment & Plan Note - Micehline Keys APRN.CNP - 08/08/2024 10:22 AM EDT Associated Problem(s): Diverticulitis Assessment: recent flare 8/9/24 tx with atb, states all symptoms have resolved * Assessment & Plan Note - Micheline Keys APRN.CNP - 08/08/2024 10:21 AM EDT Associated Problem(s): Esophageal dysphagia Assessment: chronic, mg bits/extra liquids, evaluated for this 02/26/24 Dr. Kelley Patient is status post EGD with on January 03, 2024. She was noted to have a small hiatal hernia but did this because of esophageal dysphagia.Biopsies of her duodenum were normal stomach showed no signs of H. pylori and biopsies of her esophagus did not show any signs of eosinophils or lymphocytes. Objective:Blood pressure 150/88, pulse 75, temperature 36.5 C (97.7 F), SpO2 97%. Abdomen is soft and nontender Assessment:Esophageal dysphagia (primary encounter diagnosis) Plan: Patient is get a try to modify how she has been eating and using a little bit more liquids with swallowing. If she continues to have problems we will have to order an esophageal manometry. I will have her follow-up with me on an as- needed basis. * Assessment & Plan Note - Micheline Keys APRN.CNP - 08/08/2024 10:19 AM EDT Associated Problem(s): Hiatal hernia Assessment: present with GERD symptoms * Assessment & Plan Note - Micheline Keys APRN.CNP - 08/08/2024 10:18 AM EDT Associated Problem(s): Mild pulmonary hypertension (HCC) Assessment: 03/2023 echo revealed Estimated right ventricular systolic pressure is 36 mmHg consistent with mild pulmonary hypertension. Following cardiology, asymptomatic * Assessment & Plan Note - Micheline Keys APRN.CNP - 08/08/2024 10:18 AM EDT Associated Problem(s): Valvular heart disease Assessment: 1+MVR, trace-1+ TVR, 1+ AVR, trace PVR Recent Results (from the past 04227 hour(s)) ECHO Collection Time: 03/23/23 1:37 PM Impression CONCLUSIONS: - Technically difficult exam due to body habitus. - Exam indication: Syncope - The left ventricle is normal in size. There is mild left ventricular hypertrophy. Left ventricular systolic function is normal. EF = 66 5% (2D biplane) Grade I left ventricular diastolic dysfunction. - The right ventricle is normal in size. Right ventricular systolic function is normal. - The left atrial cavity is mildly dilated. - Exam was compared with the prior echocardiographic exam performed on 01/24/2022, no significant change. * * * Final * * * * Assessment & Plan Note - Micheline Keys APRN.CNP - 08/08/2024 10:15 AM EDT Associated Problem(s): Trigeminal neuralgia Assessment: hx, intermittent, no current tx * Assessment & Plan Note - Micheline Keys APRN.CNP - 08/08/2024 10:15 AM EDT Associated Problem(s): Tethered spinal cord (HCC) Assessment: mid-thoracic spine, no surgery indicated per pt at this time * Assessment & Plan Note - Micheline Keys APRN.CNP - 08/08/2024 10:15 AM EDT Associated Problem(s): ASHD (arteriosclerotic heart disease) Assessment: non-obstructing, medically managed, following cardiology * Assessment & Plan Note - Micheline Keys APRN.CNP - 08/08/2024 10:13 AM EDT Associated Problem(s): Primary hypertension Assessment: controlled on rx Last 14 BP Last 14 Encounter BP Readings: Date: BP: 08/07/2024 136/78 06/26/2024 126/70 05/29/2024 138/72 05/27/2024 136/75 03/06/2024 126/74 02/26/2024 150/88 01/03/2024 121/66 12/21/2023 132/78 11/29/2023 132/78 11/27/2023 124/75 07/27/2023 136/70 06/06/2023 140/78 05/29/2023 128/76[recheck[ 04/10/2023 128/76 * Assessment & Plan Note - Micheline Keys APRN.CNP - 08/08/2024 10:13 AM EDT Associated Problem(s): HLD (hyperlipidemia) Assessment: diet controlled * Assessment & Plan Note - Micheline Keys APRN.CNP - 08/08/2024 10:12 AM EDT Associated Problem(s): Paroxysmal SVT (supraventricular tachycardia) (HCC) Assessment: controlled on rx * Assessment & Plan Note - Micheline Keys APRN.CNP - 08/07/2024 2:51 PM EDT Associated Problem(s): Microvascular angina (HCC) Assessment: recently started Ranexa but stopped 2/2 constipation SE per pt 05/27/2024 Dr. Benavides, Cardiology Assessment and Plan: 74 years old female patient with microvascular angina and hypertensive heart disease ASSESSMENT/PLAN: 1. Primary hypertension - ICD9: 401.9, ICD10: I10 (primary diagnosis) - Controlled - Continue current medications - Recommend home blood pressure monitoring, to bring results to next visit - Encouraged sodium restriction, DASH or Mediterranean diet - Recommend regular aerobic exercise 2. Paroxysmal SVT (supraventricular tachycardia) (HCC) - ICD9: 427.0, ICD10: I47.10 Stable paroxysmal supraventricular tachycardia patient on beta-blockers 3. Pure hypercholesterolemia - ICD9: 272.0, ICD10: E78.00 Patient cannot take statin due to severe muscle cramp and side effect of medication 4. 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 Trigeminal neuralgia ASHD (arteriosclerotic heart disease) Coronary atherosclerosis of unspecified type of vessel, tetlin or graft Lung nodule < 6cm on CT Gastroesophageal reflux disease, unspecified whether esophagitis present Stage 3a chronic kidney disease (HCC) Postablative hypothyroidism Other postablative hypothyroidism Obesity, Class I, BMI 30-34.9 Obesity, unspecified Venous insufficiency (chronic) (peripheral) Unspecified venous (peripheral) insufficiency Valvular heart disease Endocarditis, valve unspecified, unspecified cause Ground glass opacity present on imaging of lung Pre-operative examination- Primary Preoperative examination, unspecified Microvascular angina (HCC) Paroxysmal SVT (supraventricular tachycardia) (HCC) Paroxysmal supraventricular tachycardia Hyperlipidemia, unspecified hyperlipidemia type Primary hypertension Unspecified essential hypertension ASHD (arteriosclerotic heart disease) Coronary atherosclerosis of unspecified type of vessel, tetlin or graft 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 Trigeminal neuralgia Valvular heart disease Endocarditis, valve unspecified, unspecified cause Mild pulmonary hypertension (HCC) Other chronic pulmonary heart diseases Hiatal hernia Diaphragmatic hernia without mention of obstruction or gangrene Esophageal dysphagia Dysphagia, pharyngoesophageal phase Diverticulitis Diverticulitis of colon (without mention of hemorrhage) Gastroesophageal reflux disease, unspecified whether esophagitis present Chronic hypokalemia Hypopotassemia Stage 3a chronic kidney disease (HCC) Diabetes mellitus type II (HCC) Postablative hypothyroidism Other postablative hypothyroidism Age-related osteoporosis without current pathological fracture Senile osteoporosis Obesity, Class I, BMI 30-34.9 Obesity, unspecified Interstitial pulmonary disease, unspecified (HCC) [facility] Diagnosis Pre-operative examination- Primary Preoperative examination, unspecified Diverticulitis Diverticulitis of colon (without mention of hemorrhage) 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 Trigeminal neuralgia ASHD (arteriosclerotic heart disease) Coronary atherosclerosis of unspecified type of vessel, tetlin or graft Lung nodule < 6cm on CT Gastroesophageal reflux disease, unspecified whether esophagitis present Stage 3a chronic kidney disease (HCC) Postablative hypothyroidism Other postablative hypothyroidism Obesity, Class I, BMI 30-34.9 Obesity, unspecified Venous insufficiency (chronic) (peripheral) Unspecified venous (peripheral) insufficiency Valvular heart disease Endocarditis, valve unspecified, unspecified cause Trigger ring finger of left hand- Primary Trigger finger (acquired) Pre-operative examination- Primary Preoperative examination, unspecified Microvascular angina (HCC) Paroxysmal SVT (supraventricular tachycardia) (HCC) Paroxysmal supraventricular tachycardia Hyperlipidemia, unspecified hyperlipidemia type Primary hypertension Unspecified essential hypertension ASHD (arteriosclerotic heart disease) Coronary atherosclerosis of unspecified type of vessel, tetlin or graft 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 Trigeminal neuralgia Valvular heart disease Endocarditis, valve unspecified, unspecified cause Mild pulmonary hypertension (HCC) Other chronic pulmonary heart diseases Hiatal hernia Diaphragmatic hernia without mention of obstruction or gangrene Esophageal dysphagia Dysphagia, pharyngoesophageal phase Diverticulitis Diverticulitis of colon (without mention of hemorrhage) Gastroesophageal reflux disease, unspecified whether esophagitis present Chronic hypokalemia Hypopotassemia Stage 3a chronic kidney disease (HCC) Diabetes mellitus type II (HCC) Postablative hypothyroidism Other postablative hypothyroidism Age-related osteoporosis without current pathological fracture Senile osteoporosis Obesity, Class I, BMI 30-34.9 Obesity, unspecified Interstitial pulmonary disease, unspecified (HCC) [facility] Diagnosis Pre-operative examination- Primary Preoperative examination, unspecified Diverticulitis Diverticulitis of colon (without mention of hemorrhage) 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 Trigeminal neuralgia ASHD (arteriosclerotic heart disease) Coronary atherosclerosis of unspecified type of vessel, tetlin or graft Lung nodule < 6cm on CT Gastroesophageal reflux disease, unspecified whether esophagitis present Stage 3a chronic kidney disease (HCC) Postablative hypothyroidism Other postablative hypothyroidism Obesity, Class I, BMI 30-34.9 Obesity, unspecified Venous insufficiency (chronic) (peripheral) Unspecified venous (peripheral) insufficiency Valvular heart disease Endocarditis, valve unspecified, unspecified cause Pre-operative examination- Primary Preoperative examination, unspecified Microvascular angina (HCC) Paroxysmal SVT (supraventricular tachycardia) (HCC) Paroxysmal supraventricular tachycardia Hyperlipidemia, unspecified hyperlipidemia type Primary hypertension Unspecified essential hypertension ASHD (arteriosclerotic heart disease) Coronary atherosclerosis of unspecified type of vessel, tetlin or graft 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 Trigeminal neuralgia Valvular heart disease Endocarditis, valve unspecified, unspecified cause Mild pulmonary hypertension (HCC) Other chronic pulmonary heart diseases Hiatal hernia Diaphragmatic hernia without mention of obstruction or gangrene Esophageal dysphagia Dysphagia, pharyngoesophageal phase Diverticulitis Diverticulitis of colon (without mention of hemorrhage) Gastroesophageal reflux disease, unspecified whether esophagitis present Chronic hypokalemia Hypopotassemia Stage 3a chronic kidney disease (HCC) Diabetes mellitus type II (HCC) Postablative hypothyroidism Other postablative hypothyroidism Age-related osteoporosis without current pathological fracture Senile osteoporosis Obesity, Class I, BMI 30-34.9 Obesity, unspecified Interstitial pulmonary disease, unspecified (HCC) Acute left ankle pain Acute pain of left knee Trigger ring finger of left hand Trigger finger (acquired) [facility] Diagnosis Pre-operative examination- Primary Preoperative examination, unspecified Diverticulitis Diverticulitis of colon (without mention of hemorrhage) 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 Trigeminal neuralgia ASHD (arteriosclerotic heart disease) Coronary atherosclerosis of unspecified type of vessel, tetlin or graft Lung nodule < 6cm on CT Gastroesophageal reflux disease, unspecified whether esophagitis present Stage 3a chronic kidney disease (HCC) Postablative hypothyroidism Other postablative hypothyroidism Obesity, Class I, BMI 30-34.9 Obesity, unspecified Venous insufficiency (chronic) (peripheral) Unspecified venous (peripheral) insufficiency Valvular heart disease Endocarditis, valve unspecified, unspecified cause Pre-operative examination- Primary Preoperative examination, unspecified Microvascular angina (HCC) Paroxysmal SVT (supraventricular tachycardia) (HCC) Paroxysmal supraventricular tachycardia Hyperlipidemia, unspecified hyperlipidemia type Primary hypertension Unspecified essential hypertension ASHD (arteriosclerotic heart disease) Coronary atherosclerosis of unspecified type of vessel, tetlin or graft 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 Trigeminal neuralgia Valvular heart disease Endocarditis, valve unspecified, unspecified cause Mild pulmonary hypertension (HCC) Other chronic pulmonary heart diseases Hiatal hernia Diaphragmatic hernia without mention of obstruction or gangrene Esophageal dysphagia Dysphagia, pharyngoesophageal phase Diverticulitis Diverticulitis of colon (without mention of hemorrhage) Gastroesophageal reflux disease, unspecified whether esophagitis present Chronic hypokalemia Hypopotassemia Stage 3a chronic kidney disease (HCC) Diabetes mellitus type II (HCC) Postablative hypothyroidism Other postablative hypothyroidism Age-related osteoporosis without current pathological fracture Senile osteoporosis Obesity, Class I, BMI 30-34.9 Obesity, unspecified Interstitial pulmonary disease, unspecified (HCC) Acute left ankle pain Acute pain of left knee [facility] Diagnosis Pre-operative examination- Primary Preoperative examination, unspecified Diverticulitis Diverticulitis of colon (without mention of hemorrhage) 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 Trigeminal neuralgia ASHD (arteriosclerotic heart disease) Coronary atherosclerosis of unspecified type of vessel, tetlin or graft Lung nodule < 6cm on CT Gastroesophageal reflux disease, unspecified whether esophagitis present Stage 3a chronic kidney disease (HCC) Postablative hypothyroidism Other postablative hypothyroidism Obesity, Class I, BMI 30-34.9 Obesity, unspecified Venous insufficiency (chronic) (peripheral) Unspecified venous (peripheral) insufficiency Valvular heart disease Endocarditis, valve unspecified, unspecified cause Pre-operative examination- Primary Preoperative examination, unspecified Microvascular angina (HCC) Paroxysmal SVT (supraventricular tachycardia) (HCC) Paroxysmal supraventricular tachycardia Hyperlipidemia, unspecified hyperlipidemia type Primary hypertension Unspecified essential hypertension ASHD (arteriosclerotic heart disease) Coronary atherosclerosis of unspecified type of vessel, tetlin or graft 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 Trigeminal neuralgia Valvular heart disease Endocarditis, valve unspecified, unspecified cause Mild pulmonary hypertension (HCC) Other chronic pulmonary heart diseases Hiatal hernia Diaphragmatic hernia without mention of obstruction or gangrene Esophageal dysphagia Dysphagia, pharyngoesophageal phase Diverticulitis Diverticulitis of colon (without mention of hemorrhage) Gastroesophageal reflux disease, unspecified whether esophagitis present Chronic hypokalemia Hypopotassemia Stage 3a chronic kidney disease (HCC) Diabetes mellitus type II (HCC) Postablative hypothyroidism Other postablative hypothyroidism Age-related osteoporosis without current pathological fracture Senile osteoporosis Obesity, Class I, BMI 30-34.9 Obesity, unspecified Interstitial pulmonary disease, unspecified (HCC) Postablative hypothyroidism Other postablative hypothyroidism [facility] Diagnosis Pre-operative examination- Primary Preoperative examination, unspecified Diverticulitis Diverticulitis of colon (without mention of hemorrhage) 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 Trigeminal neuralgia ASHD (arteriosclerotic heart disease) Coronary atherosclerosis of unspecified type of vessel, tetlin or graft Lung nodule < 6cm on CT Gastroesophageal reflux disease, unspecified whether esophagitis present Stage 3a chronic kidney disease (HCC) Postablative hypothyroidism Other postablative hypothyroidism Obesity, Class I, BMI 30-34.9 Obesity, unspecified Venous insufficiency (chronic) (peripheral) Unspecified venous (peripheral) insufficiency Valvular heart disease Endocarditis, valve unspecified, unspecified cause Pre-operative examination- Primary Preoperative examination, unspecified Microvascular angina (HCC) Paroxysmal SVT (supraventricular tachycardia) (HCC) Paroxysmal supraventricular tachycardia Hyperlipidemia, unspecified hyperlipidemia type Primary hypertension Unspecified essential hypertension ASHD (arteriosclerotic heart disease) Coronary atherosclerosis of unspecified type of vessel, tetlin or graft 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 Trigeminal neuralgia Valvular heart disease Endocarditis, valve unspecified, unspecified cause Mild pulmonary hypertension (HCC) Other chronic pulmonary heart diseases Hiatal hernia Diaphragmatic hernia without mention of obstruction or gangrene Esophageal dysphagia Dysphagia, pharyngoesophageal phase Diverticulitis Diverticulitis of colon (without mention of hemorrhage) Gastroesophageal reflux disease, unspecified whether esophagitis present Chronic hypokalemia Hypopotassemia Stage 3a chronic kidney disease (HCC) Diabetes mellitus type II (HCC) Postablative hypothyroidism Other postablative hypothyroidism Age-related osteoporosis without current pathological fracture Senile osteoporosis Obesity, Class I, BMI 30-34.9 Obesity, unspecified Interstitial pulmonary disease, unspecified (HCC) Trigger ring finger of left hand- Primary Trigger finger (acquired) [facility] Diagnosis Pre-operative examination- Primary Preoperative examination, unspecified Diverticulitis Diverticulitis of colon (without mention of hemorrhage) 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 Trigeminal neuralgia ASHD (arteriosclerotic heart disease) Coronary atherosclerosis of unspecified type of vessel, tetlin or graft Lung nodule < 6cm on CT Gastroesophageal reflux disease, unspecified whether esophagitis present Stage 3a chronic kidney disease (HCC) Postablative hypothyroidism Other postablative hypothyroidism Obesity, Class I, BMI 30-34.9 Obesity, unspecified Venous insufficiency (chronic) (peripheral) Unspecified venous (peripheral) insufficiency Valvular heart disease Endocarditis, valve unspecified, unspecified cause Pre-operative examination- Primary Preoperative examination, unspecified Microvascular angina (HCC) Paroxysmal SVT (supraventricular tachycardia) (HCC) Paroxysmal supraventricular tachycardia Hyperlipidemia, unspecified hyperlipidemia type Primary hypertension Unspecified essential hypertension ASHD (arteriosclerotic heart disease) Coronary atherosclerosis of unspecified type of vessel, tetlin or graft 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 Trigeminal neuralgia Valvular heart disease Endocarditis, valve unspecified, unspecified cause Mild pulmonary hypertension (HCC) Other chronic pulmonary heart diseases Hiatal hernia Diaphragmatic hernia without mention of obstruction or gangrene Esophageal dysphagia Dysphagia, pharyngoesophageal phase Diverticulitis Diverticulitis of colon (without mention of hemorrhage) Gastroesophageal reflux disease, unspecified whether esophagitis present Chronic hypokalemia Hypopotassemia Stage 3a chronic kidney disease (HCC) Diabetes mellitus type II (HCC) Postablative hypothyroidism Other postablative hypothyroidism Age-related osteoporosis without current pathological fracture Senile osteoporosis Obesity, Class I, BMI 30-34.9 Obesity, unspecified Interstitial pulmonary disease, unspecified (HCC) 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 Trigeminal neuralgia ASHD (arteriosclerotic heart disease) Coronary atherosclerosis of unspecified type of vessel, tetlin or graft Lung nodule < 6cm on CT Gastroesophageal reflux disease, unspecified whether esophagitis present Stage 3a chronic kidney disease (HCC) Postablative hypothyroidism Other postablative hypothyroidism Obesity, Class I, BMI 30-34.9 Obesity, unspecified Venous insufficiency (chronic) (peripheral) Unspecified venous (peripheral) insufficiency Valvular heart disease Endocarditis, valve unspecified, unspecified cause Pre-operative examination- Primary Preoperative examination, unspecified Microvascular angina (HCC) Paroxysmal SVT (supraventricular tachycardia) ([facility]) Paroxysmal supraventricular tachycardia Hyperlipidemia, unspecified hyperlipidemia type Primary hypertension Unspecified essential hypertension ASHD (arteriosclerotic heart disease) Coronary atherosclerosis of unspecified type of vessel, tetlin or graft 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 Trigeminal neuralgia Valvular heart disease Endocarditis, valve unspecified, unspecified cause Mild pulmonary hypertension (HCC) Other chronic pulmonary heart diseases Hiatal hernia Diaphragmatic hernia without mention of obstruction or gangrene Esophageal dysphagia Dysphagia, pharyngoesophageal phase Diverticulitis Diverticulitis of colon (without mention of hemorrhage) Gastroesophageal reflux disease, unspecified whether esophagitis present Chronic hypokalemia Hypopotassemia Stage 3a chronic kidney disease (HCC) Diabetes mellitus type II (HCC) Postablative hypothyroidism Other postablative hypothyroidism Age-related osteoporosis without current pathological fracture Senile osteoporosis Obesity, Class I, BMI 30-34.9 Obesity, unspecified Interstitial pulmonary disease, unspecified ([facility]) Encounter for screening mammogram for malignant neoplasm of breast Other screening mammogram documented in this encounter 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 Trigeminal neuralgia ASHD (arteriosclerotic heart disease) Coronary atherosclerosis of unspecified type of vessel, tetlin or graft Lung nodule < 6cm on CT Gastroesophageal reflux disease, unspecified whether esophagitis present Stage 3a chronic kidney disease (HCC) Postablative hypothyroidism Other postablative hypothyroidism Obesity, Class I, BMI 30-34.9 Obesity, unspecified Venous insufficiency (chronic) (peripheral) Unspecified venous (peripheral) insufficiency Valvular heart disease Endocarditis, valve unspecified, unspecified cause Pre-operative examination- Primary Preoperative examination, unspecified Microvascular angina (HCC) Paroxysmal SVT (supraventricular tachycardia) (HCC) Paroxysmal supraventricular tachycardia Hyperlipidemia, unspecified hyperlipidemia type Primary hypertension Unspecified essential hypertension ASHD (arteriosclerotic heart disease) Coronary atherosclerosis of unspecified type of vessel, tetlin or graft 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 Trigeminal neuralgia Valvular heart disease Endocarditis, valve unspecified, unspecified cause Mild pulmonary hypertension (HCC) Other chronic pulmonary heart diseases Hiatal hernia Diaphragmatic hernia without mention of obstruction or gangrene Esophageal dysphagia Dysphagia, pharyngoesophageal phase Diverticulitis Diverticulitis of colon (without mention of hemorrhage) Gastroesophageal reflux disease, unspecified whether esophagitis present Chronic hypokalemia Hypopotassemia Stage 3a chronic kidney disease (HCC) Diabetes mellitus type II (HCC) Postablative hypothyroidism Other postablative hypothyroidism Age-related osteoporosis without current pathological fracture Senile osteoporosis Obesity, Class I, BMI 30-34.9 Obesity, unspecified Interstitial pulmonary disease, unspecified (HCC) Primary hypertension- Primary Unspecified essential hypertension Microvascular angina (HCC) SVT (supraventricular tachycardia) (HCC) Other specified [facility] dysrhythmias [facility] Pre-operative examination- Primary Preoperative examination, unspecified Diverticulitis Diverticulitis of colon (without mention of hemorrhage) 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 Trigeminal neuralgia ASHD (arteriosclerotic heart disease) Coronary atherosclerosis of unspecified type of vessel, tetlin or graft Lung nodule < 6cm on CT Gastroesophageal reflux disease, unspecified whether esophagitis present Stage 3a chronic kidney disease (HCC) Postablative hypothyroidism Other postablative hypothyroidism Obesity, Class I, BMI 30-34.9 Obesity, unspecified Venous insufficiency (chronic) (peripheral) Unspecified venous (peripheral) insufficiency Valvular heart disease Endocarditis, valve unspecified, unspecified cause Pre-operative examination- Primary Preoperative examination, unspecified Microvascular angina (HCC) Paroxysmal SVT (supraventricular tachycardia) (HCC) Paroxysmal supraventricular tachycardia Hyperlipidemia, unspecified hyperlipidemia type Primary hypertension Unspecified essential hypertension ASHD (arteriosclerotic heart disease) Coronary atherosclerosis of unspecified type of vessel, tetlin or graft 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 Trigeminal neuralgia Valvular heart disease Endocarditis, valve unspecified, unspecified cause Mild pulmonary hypertension (HCC) Other chronic pulmonary heart diseases Hiatal hernia Diaphragmatic hernia without mention of obstruction or gangrene Esophageal dysphagia Dysphagia, pharyngoesophageal phase Diverticulitis Diverticulitis of colon (without mention of hemorrhage) Gastroesophageal reflux disease, unspecified whether esophagitis present Chronic hypokalemia Hypopotassemia Stage 3a chronic kidney disease (HCC) Diabetes mellitus type II (HCC) Postablative hypothyroidism Other postablative hypothyroidism Age-related osteoporosis without current pathological fracture Senile osteoporosis Obesity, Class I, BMI 30-34.9 Obesity, unspecified Interstitial pulmonary disease, unspecified (HCC) Diabetes mellitus type II (HCC)- Primary Stage 3a chronic kidney disease (HCC) Hyponatremia Hyposmolality and/or hyponatremia Essential hypertension, benign Hyperlipidemia, unspecified hyperlipidemia type 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 Mild pulmonary hypertension (HCC) Other chronic pulmonary heart diseases Nocturia Interstitial pulmonary disease, unspecified (HCC) [facility] Diagnosis Pre-operative examination- Primary Preoperative examination, unspecified Diverticulitis Diverticulitis of colon (without mention of hemorrhage) 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 Trigeminal neuralgia ASHD (arteriosclerotic heart disease) Coronary atherosclerosis of unspecified type of vessel, tetlin or graft Lung nodule < 6cm on CT Gastroesophageal reflux disease, unspecified whether esophagitis present Stage 3a chronic kidney disease (HCC) Postablative hypothyroidism Other postablative hypothyroidism Obesity, Class I, BMI 30-34.9 Obesity, unspecified Venous insufficiency (chronic) (peripheral) Unspecified venous (peripheral) insufficiency Valvular heart disease Endocarditis, valve unspecified, unspecified cause Pre-operative examination- Primary Preoperative examination, unspecified Microvascular angina (HCC) Paroxysmal SVT (supraventricular tachycardia) (HCC) Paroxysmal supraventricular tachycardia Hyperlipidemia, unspecified hyperlipidemia type Primary hypertension Unspecified essential hypertension ASHD (arteriosclerotic heart disease) Coronary atherosclerosis of unspecified type of vessel, tetlin or graft 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 Trigeminal neuralgia Valvular heart disease Endocarditis, valve unspecified, unspecified cause Mild pulmonary hypertension (HCC) Other chronic pulmonary heart diseases Hiatal hernia Diaphragmatic hernia without mention of obstruction or gangrene Esophageal dysphagia Dysphagia, pharyngoesophageal phase Diverticulitis Diverticulitis of colon (without mention of hemorrhage) Gastroesophageal reflux disease, unspecified whether esophagitis present Chronic hypokalemia Hypopotassemia Stage 3a chronic kidney disease (HCC) Diabetes mellitus type II (HCC) Postablative hypothyroidism Other postablative hypothyroidism Age-related osteoporosis without current pathological fracture Senile osteoporosis Obesity, Class I, BMI 30-34.9 Obesity, unspecified Interstitial pulmonary disease, unspecified (HCC) Hyperlipidemia, unspecified hyperlipidemia type- Primary Diabetes mellitus type II (HCC) Nocturia documented in this encounter 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 Trigeminal neuralgia ASHD (arteriosclerotic heart disease) Coronary atherosclerosis of unspecified type of vessel, tetlin or graft Lung nodule < 6cm on CT Gastroesophageal reflux disease, unspecified whether esophagitis present Stage 3a chronic kidney disease (HCC) Postablative hypothyroidism Other postablative hypothyroidism Obesity, Class I, BMI 30-34.9 Obesity, unspecified Venous insufficiency (chronic) (peripheral) Unspecified venous (peripheral) insufficiency Valvular heart disease Endocarditis, valve unspecified, unspecified cause Pre-operative examination- Primary Preoperative examination, unspecified Microvascular angina (HCC) Paroxysmal SVT (supraventricular tachycardia) (HCC) Paroxysmal supraventricular tachycardia Hyperlipidemia, unspecified hyperlipidemia type Primary hypertension Unspecified essential hypertension ASHD (arteriosclerotic heart disease) Coronary atherosclerosis of unspecified type of vessel, tetlin or graft 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 Trigeminal neuralgia Valvular heart disease Endocarditis, valve unspecified, unspecified cause Mild pulmonary hypertension (HCC) Other chronic pulmonary heart diseases Hiatal hernia Diaphragmatic hernia without mention of obstruction or gangrene Esophageal dysphagia Dysphagia, pharyngoesophageal phase Diverticulitis Diverticulitis of colon (without mention of hemorrhage) Gastroesophageal reflux disease, unspecified whether esophagitis present Chronic hypokalemia Hypopotassemia Stage 3a chronic kidney disease (HCC) Diabetes mellitus type II (HCC) Postablative hypothyroidism Other postablative hypothyroidism Age-related osteoporosis without current pathological fracture Senile osteoporosis Obesity, Class I, BMI 30-34.9 Obesity, unspecified Interstitial pulmonary disease, unspecified (HCC) Nocturia- Primary [facility] Diagnosis Pre-operative examination- Primary Preoperative examination, unspecified Diverticulitis Diverticulitis of colon (without mention of hemorrhage) 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 Trigeminal neuralgia ASHD (arteriosclerotic heart disease) Coronary atherosclerosis of unspecified type of vessel, tetlin or graft Lung nodule < 6cm on CT Gastroesophageal reflux disease, unspecified whether esophagitis present Stage 3a chronic kidney disease (HCC) Postablative hypothyroidism Other postablative hypothyroidism Obesity, Class I, BMI 30-34.9 Obesity, unspecified Venous insufficiency (chronic) (peripheral) Unspecified venous (peripheral) insufficiency Valvular heart disease Endocarditis, valve unspecified, unspecified cause Pre-operative examination- Primary Preoperative examination, unspecified Microvascular angina (HCC) Paroxysmal SVT (supraventricular tachycardia) (HCC) Paroxysmal supraventricular tachycardia Hyperlipidemia, unspecified hyperlipidemia type Primary hypertension Unspecified essential hypertension ASHD (arteriosclerotic heart disease) Coronary atherosclerosis of unspecified type of vessel, tetlin or graft 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 Trigeminal neuralgia Valvular heart disease Endocarditis, valve unspecified, unspecified cause Mild pulmonary hypertension (HCC) Other chronic pulmonary heart diseases Hiatal hernia Diaphragmatic hernia without mention of obstruction or gangrene Esophageal dysphagia Dysphagia, pharyngoesophageal phase Diverticulitis Diverticulitis of colon (without mention of hemorrhage) Gastroesophageal reflux disease, unspecified whether esophagitis present Chronic hypokalemia Hypopotassemia Stage 3a chronic kidney disease (HCC) Diabetes mellitus type II (HCC) Postablative hypothyroidism Other postablative hypothyroidism Age-related osteoporosis without current pathological fracture Senile osteoporosis Obesity, Class I, BMI 30-34.9 Obesity, unspecified Interstitial pulmonary disease, unspecified (HCC) Periumbilical abdominal pain- Primary Abdominal pain, periumbilic LLQ pain Abdominal pain, left lower quadrant documented in this encounter 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 Trigeminal neuralgia ASHD (arteriosclerotic heart disease) Coronary atherosclerosis of unspecified type of vessel, tetlin or graft Lung nodule < 6cm on CT Gastroesophageal reflux disease, unspecified whether esophagitis present Stage 3a chronic kidney disease (HCC) Postablative hypothyroidism Other postablative hypothyroidism Obesity, Class I, BMI 30-34.9 Obesity, unspecified Venous insufficiency (chronic) (peripheral) Unspecified venous (peripheral) insufficiency Valvular heart disease Endocarditis, valve unspecified, unspecified cause Pre-operative examination- Primary Preoperative examination, unspecified Microvascular angina (HCC) Paroxysmal SVT (supraventricular tachycardia) (HCC) Paroxysmal supraventricular tachycardia Hyperlipidemia, unspecified hyperlipidemia type Primary hypertension Unspecified essential hypertension ASHD (arteriosclerotic heart disease) Coronary atherosclerosis of unspecified type of vessel, tetlin or graft 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 Trigeminal neuralgia Valvular heart disease Endocarditis, valve unspecified, unspecified cause Mild pulmonary hypertension (HCC) Other chronic pulmonary heart diseases Hiatal hernia Diaphragmatic hernia without mention of obstruction or gangrene Esophageal dysphagia Dysphagia, pharyngoesophageal phase Diverticulitis Diverticulitis of colon (without mention of hemorrhage) Gastroesophageal reflux disease, unspecified whether esophagitis present Chronic hypokalemia Hypopotassemia Stage 3a chronic kidney disease (HCC) Diabetes mellitus type II (HCC) Postablative hypothyroidism Other postablative hypothyroidism Age-related osteoporosis without current pathological fracture Senile osteoporosis Obesity, Class I, BMI 30-34.9 Obesity, unspecified Interstitial pulmonary disease, unspecified (HCC) 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 Trigeminal neuralgia ASHD (arteriosclerotic heart disease) Coronary atherosclerosis of unspecified type of vessel, tetlin or graft Lung nodule < 6cm on CT Gastroesophageal reflux disease, unspecified whether esophagitis present Stage 3a chronic kidney disease (HCC) Postablative hypothyroidism Other postablative hypothyroidism Obesity, Class I, BMI 30-34.9 Obesity, unspecified Venous insufficiency (chronic) (peripheral) Unspecified venous (peripheral) insufficiency Valvular heart disease Endocarditis, valve unspecified, unspecified cause Pre-operative examination- Primary Preoperative examination, unspecified Microvascular angina (HCC) Paroxysmal SVT (supraventricular tachycardia) (HCC) Paroxysmal supraventricular tachycardia Hyperlipidemia, unspecified hyperlipidemia type Primary hypertension Unspecified essential hypertension ASHD (arteriosclerotic heart disease) Coronary atherosclerosis of unspecified type of vessel, tetlin or graft 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 Trigeminal neuralgia Valvular heart disease Endocarditis, valve unspecified, unspecified cause Mild pulmonary hypertension (HCC) Other chronic pulmonary heart diseases Hiatal hernia Diaphragmatic hernia without mention of obstruction or gangrene Esophageal dysphagia Dysphagia, pharyngoesophageal phase Diverticulitis Diverticulitis of colon (without mention of hemorrhage) Gastroesophageal reflux disease, unspecified whether esophagitis present Chronic hypokalemia Hypopotassemia Stage 3a chronic kidney disease (HCC) Diabetes mellitus type II (HCC) Postablative hypothyroidism Other postablative hypothyroidism Age-related osteoporosis without current pathological fracture Senile osteoporosis Obesity, Class I, BMI 30-34.9 Obesity, unspecified Interstitial pulmonary disease, unspecified ([facility]) Periumbilical abdominal pain Abdominal pain, periumbilic LLQ pain Abdominal pain, left lower quadrant documented in this encounter 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 Trigeminal neuralgia ASHD (arteriosclerotic heart disease) Coronary atherosclerosis of unspecified type of vessel, tetlin or graft Lung nodule < 6cm on CT Gastroesophageal reflux disease, unspecified whether esophagitis present Stage 3a chronic kidney disease (HCC) Postablative hypothyroidism Other postablative hypothyroidism Obesity, Class I, BMI 30-34.9 Obesity, unspecified Venous insufficiency (chronic) (peripheral) Unspecified venous (peripheral) insufficiency Valvular heart disease Endocarditis, valve unspecified, unspecified cause Pre-operative examination- Primary Preoperative examination, unspecified Microvascular angina Paroxysmal SVT (supraventricular tachycardia) (HCC) Paroxysmal supraventricular tachycardia Hyperlipidemia, unspecified hyperlipidemia type Primary hypertension Unspecified essential hypertension ASHD (arteriosclerotic heart disease) Coronary atherosclerosis of unspecified type of vessel, tetlin or graft 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 Trigeminal neuralgia Valvular heart disease Endocarditis, valve unspecified, unspecified cause Mild pulmonary hypertension (HCC) Other chronic pulmonary heart diseases Hiatal hernia Diaphragmatic hernia without mention of obstruction or gangrene Esophageal dysphagia Dysphagia, pharyngoesophageal phase Diverticulitis Diverticulitis of colon (without mention of hemorrhage) Gastroesophageal reflux disease, unspecified whether esophagitis present Chronic hypokalemia Hypopotassemia Stage 3a chronic kidney disease (HCC) Diabetes mellitus type II (HCC) Postablative hypothyroidism Other postablative hypothyroidism Age-related osteoporosis without current pathological fracture Senile osteoporosis Obesity, Class I, BMI 30-34.9 Obesity, unspecified Interstitial pulmonary disease, unspecified (HCC) Postablative hypothyroidism Other postablative hypothyroidism documented in this encounter 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 Trigeminal neuralgia ASHD (arteriosclerotic heart disease) Coronary atherosclerosis of unspecified type of vessel, tetlin or graft Lung nodule < 6cm on CT Gastroesophageal reflux disease, unspecified whether esophagitis present Stage 3a chronic kidney disease (HCC) Postablative hypothyroidism Other postablative hypothyroidism Obesity, Class I, BMI 30-34.9 Obesity, unspecified Venous insufficiency (chronic) (peripheral) Unspecified venous (peripheral) insufficiency Valvular heart disease Endocarditis, valve unspecified, unspecified cause Pre-operative examination- Primary Preoperative examination, unspecified Microvascular angina Paroxysmal SVT (supraventricular tachycardia) (HCC) Paroxysmal supraventricular tachycardia Hyperlipidemia, unspecified hyperlipidemia type Primary hypertension Unspecified essential hypertension ASHD (arteriosclerotic heart disease) Coronary atherosclerosis of unspecified type of vessel, tetlin or graft 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 Trigeminal neuralgia Valvular heart disease Endocarditis, valve unspecified, unspecified cause Mild pulmonary hypertension (HCC) Other chronic pulmonary heart diseases Hiatal hernia Diaphragmatic hernia without mention of obstruction or gangrene Esophageal dysphagia Dysphagia, pharyngoesophageal phase Diverticulitis Diverticulitis of colon (without mention of hemorrhage) Gastroesophageal reflux disease, unspecified whether esophagitis present Chronic hypokalemia Hypopotassemia Stage 3a chronic kidney disease (HCC) Diabetes mellitus type II (HCC) Postablative hypothyroidism Other postablative hypothyroidism Age-related osteoporosis without current pathological fracture Senile osteoporosis Obesity, Class I, BMI 30-34.9 Obesity, unspecified Interstitial pulmonary disease, unspecified (HCC) Cervical pain (neck)- Primary Cervicalgia Headache, unspecified headache type documented in this encounter 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 Trigeminal neuralgia ASHD (arteriosclerotic heart disease) Coronary atherosclerosis of unspecified type of vessel, tetlin or graft Lung nodule < 6cm on CT Gastroesophageal reflux disease, unspecified whether esophagitis present Stage 3a chronic kidney disease (HCC) Postablative hypothyroidism Other postablative hypothyroidism Obesity, Class I, BMI 30-34.9 Obesity, unspecified Venous insufficiency (chronic) (peripheral) Unspecified venous (peripheral) insufficiency Valvular heart disease Endocarditis, valve unspecified, unspecified cause Pre-operative examination- Primary Preoperative examination, unspecified Microvascular angina Paroxysmal SVT (supraventricular tachycardia) (HCC) Paroxysmal supraventricular tachycardia Hyperlipidemia, unspecified hyperlipidemia type Primary hypertension Unspecified essential hypertension ASHD (arteriosclerotic heart disease) Coronary atherosclerosis of unspecified type of vessel, tetlin or graft 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 Trigeminal neuralgia Valvular heart disease Endocarditis, valve unspecified, unspecified cause Mild pulmonary hypertension (HCC) Other chronic pulmonary heart diseases Hiatal hernia Diaphragmatic hernia without mention of obstruction or gangrene Esophageal dysphagia Dysphagia, pharyngoesophageal phase Diverticulitis Diverticulitis of colon (without mention of hemorrhage) Gastroesophageal reflux disease, unspecified whether esophagitis present Chronic hypokalemia Hypopotassemia Stage 3a chronic kidney disease (HCC) Diabetes mellitus type II (HCC) Postablative hypothyroidism Other postablative hypothyroidism Age-related osteoporosis without current pathological fracture Senile osteoporosis Obesity, Class I, BMI 30-34.9 Obesity, unspecified Interstitial pulmonary disease, unspecified (HCC) Nocturia- Primary Screening for genitourinary condition Screening for other and unspecified genitourinary condition POP-Q stage 3 cystocele Stage 3 chronic kidney disease, unspecified whether stage 3a or 3b CKD (HCC) Nonintractable headache, unspecified chronicity pattern, unspecified headache type [facility] Diagnosis Pre-operative examination- Primary Preoperative examination, unspecified Diverticulitis Diverticulitis of colon (without mention of hemorrhage) 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 Trigeminal neuralgia ASHD (arteriosclerotic heart disease) Coronary atherosclerosis of unspecified type of vessel, tetlin or graft Lung nodule < 6cm on CT Gastroesophageal reflux disease, unspecified whether esophagitis present Stage 3a chronic kidney disease (HCC) Postablative hypothyroidism Other postablative hypothyroidism Obesity, Class I, BMI 30-34.9 Obesity, unspecified Venous insufficiency (chronic) (peripheral) Unspecified venous (peripheral) insufficiency Valvular heart disease Endocarditis, valve unspecified, unspecified cause Pre-operative examination- Primary Preoperative examination, unspecified Microvascular angina Paroxysmal SVT (supraventricular tachycardia) (HCC) Paroxysmal supraventricular tachycardia Hyperlipidemia, unspecified hyperlipidemia type Primary hypertension Unspecified essential hypertension ASHD (arteriosclerotic heart disease) Coronary atherosclerosis of unspecified type of vessel, tetlin or graft 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 Trigeminal neuralgia Valvular heart disease Endocarditis, valve unspecified, unspecified cause Mild pulmonary hypertension (HCC) Other chronic pulmonary heart diseases Hiatal hernia Diaphragmatic hernia without mention of obstruction or gangrene Esophageal dysphagia Dysphagia, pharyngoesophageal phase Diverticulitis Diverticulitis of colon (without mention of hemorrhage) Gastroesophageal reflux disease, unspecified whether esophagitis present Chronic hypokalemia Hypopotassemia Stage 3a chronic kidney disease (HCC) Diabetes mellitus type II (HCC) Postablative hypothyroidism Other postablative hypothyroidism Age-related osteoporosis without current pathological fracture Senile osteoporosis Obesity, Class I, BMI 30-34.9 Obesity, unspecified Interstitial pulmonary disease, unspecified (HCC) Cervical spine pain- Primary [facility]icalgia [facility] Diagnosis Pre-operative examination- Primary Preoperative examination, unspecified Diverticulitis Diverticulitis of colon (without mention of hemorrhage) 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 Trigeminal neuralgia ASHD (arteriosclerotic heart disease) Coronary atherosclerosis of unspecified type of vessel, tetlin or graft Lung nodule < 6cm on CT Gastroesophageal reflux disease, unspecified whether esophagitis present Stage 3a chronic kidney disease (HCC) Postablative hypothyroidism Other postablative hypothyroidism Obesity, Class I, BMI 30-34.9 Obesity, unspecified Venous insufficiency (chronic) (peripheral) Unspecified venous (peripheral) insufficiency Valvular heart disease Endocarditis, valve unspecified, unspecified cause Pre-operative examination- Primary Preoperative examination, unspecified Microvascular angina Paroxysmal SVT (supraventricular tachycardia) (HCC) Paroxysmal supraventricular tachycardia Hyperlipidemia, unspecified hyperlipidemia type Primary hypertension Unspecified essential hypertension ASHD (arteriosclerotic heart disease) Coronary atherosclerosis of unspecified type of vessel, tetlin or graft 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 Trigeminal neuralgia Valvular heart disease Endocarditis, valve unspecified, unspecified cause Mild pulmonary hypertension (HCC) Other chronic pulmonary heart diseases Hiatal hernia Diaphragmatic hernia without mention of obstruction or gangrene Esophageal dysphagia Dysphagia, pharyngoesophageal phase Diverticulitis Diverticulitis of colon (without mention of hemorrhage) Gastroesophageal reflux disease, unspecified whether esophagitis present Chronic hypokalemia Hypopotassemia Stage 3a chronic kidney disease (HCC) Diabetes mellitus type II (HCC) Postablative hypothyroidism Other postablative hypothyroidism Age-related osteoporosis without current pathological fracture Senile osteoporosis Obesity, Class I, BMI 30-34.9 Obesity, unspecified Interstitial pulmonary disease, unspecified (HCC) Stage 3a chronic kidney disease (HCC)- Primary Hyponatremia Hyposmolality and/or hyponatremia Essential hypertension Unspecified essential hypertension Chronic kidney disease-mineral and bone disorder Diabetes mellitus type II (HCC) Hyperlipidemia, unspecified hyperlipidemia type [facility] in this [facility] Diagnosis Pre-operative examination- Primary Preoperative examination, unspecified Diverticulitis Diverticulitis of colon (without mention of hemorrhage) 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 Trigeminal neuralgia ASHD (arteriosclerotic heart disease) Coronary atherosclerosis of unspecified type of vessel, tetlin or graft Lung nodule < 6cm on CT Gastroesophageal reflux disease, unspecified whether esophagitis present Stage 3a chronic kidney disease (HCC) Postablative hypothyroidism Other postablative hypothyroidism Obesity, Class I, BMI 30-34.9 Obesity, unspecified Venous insufficiency (chronic) (peripheral) Unspecified venous (peripheral) insufficiency Valvular heart disease Endocarditis, valve unspecified, unspecified cause Pre-operative examination- Primary Preoperative examination, unspecified Microvascular angina Paroxysmal SVT (supraventricular tachycardia) (HCC) Paroxysmal supraventricular tachycardia Hyperlipidemia, unspecified hyperlipidemia type Primary hypertension Unspecified essential hypertension ASHD (arteriosclerotic heart disease) Coronary atherosclerosis of unspecified type of vessel, tetlin or graft 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 Trigeminal neuralgia Valvular heart disease Endocarditis, valve unspecified, unspecified cause Mild pulmonary hypertension (HCC) Other chronic pulmonary heart diseases Hiatal hernia Diaphragmatic hernia without mention of obstruction or gangrene Esophageal dysphagia Dysphagia, pharyngoesophageal phase Diverticulitis Diverticulitis of colon (without mention of hemorrhage) Gastroesophageal reflux disease, unspecified whether esophagitis present Chronic hypokalemia Hypopotassemia Stage 3a chronic kidney disease (HCC) Diabetes mellitus type II (HCC) Postablative hypothyroidism Other postablative hypothyroidism Age-related osteoporosis without current pathological fracture Senile osteoporosis Obesity, Class I, BMI 30-34.9 Obesity, unspecified Interstitial pulmonary disease, unspecified (HCC) Muscle pain- Primary Mylagia and myositis, unspecified Cervical spine pain Cervicalgia Cervical spondylosis without myelopathy Cervical spinal stenosis Spinal stenosis in cervical region DDD (degenerative disc disease), cervical Degeneration of cervical intervertebral disc documented in this encounter 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 Trigeminal neuralgia ASHD (arteriosclerotic heart disease) Coronary atherosclerosis of unspecified type of vessel, tetlin or graft Lung nodule < 6cm on CT Gastroesophageal reflux disease, unspecified whether esophagitis present Stage 3a chronic kidney disease (HCC) Postablative hypothyroidism Other postablative hypothyroidism Obesity, Class I, BMI 30-34.9 Obesity, unspecified Venous insufficiency (chronic) (peripheral) Unspecified venous (peripheral) insufficiency Valvular heart disease Endocarditis, valve unspecified, unspecified cause Pre-operative examination- Primary Preoperative examination, unspecified Microvascular angina Paroxysmal SVT (supraventricular tachycardia) (HCC) Paroxysmal supraventricular tachycardia Hyperlipidemia, unspecified hyperlipidemia type Primary hypertension Unspecified essential hypertension ASHD (arteriosclerotic heart disease) Coronary atherosclerosis of unspecified type of vessel, tetlin or graft 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 Trigeminal neuralgia Valvular heart disease Endocarditis, valve unspecified, unspecified cause Mild pulmonary hypertension (HCC) Other chronic pulmonary heart diseases Hiatal hernia Diaphragmatic hernia without mention of obstruction or gangrene Esophageal dysphagia Dysphagia, pharyngoesophageal phase Diverticulitis Diverticulitis of colon (without mention of hemorrhage) Gastroesophageal reflux disease, unspecified whether esophagitis present Chronic hypokalemia Hypopotassemia Stage 3a chronic kidney disease (HCC) Diabetes mellitus type II (HCC) Postablative hypothyroidism Other postablative hypothyroidism Age-related osteoporosis without current pathological fracture Senile osteoporosis Obesity, Class I, BMI 30-34.9 Obesity, unspecified Interstitial pulmonary disease, unspecified (HCC) 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 Degeneration of thoracic or thoracolumbar intervertebral disc Cervical radiculopathy Brachial neuritis or radiculitis nos Postablative hypothyroidism Other postablative hypothyroidism [facility] Diagnosis Pre-operative examination- Primary Preoperative examination, unspecified Diverticulitis Diverticulitis of colon (without mention of hemorrhage) 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 Trigeminal neuralgia ASHD (arteriosclerotic heart disease) Coronary atherosclerosis of unspecified type of vessel, tetlin or graft Lung nodule < 6cm on CT Gastroesophageal reflux disease, unspecified whether esophagitis present Stage 3a chronic kidney disease (HCC) Postablative hypothyroidism Other postablative hypothyroidism Obesity, Class I, BMI 30-34.9 Obesity, unspecified Venous insufficiency (chronic) (peripheral) Unspecified venous (peripheral) insufficiency Valvular heart disease Endocarditis, valve unspecified, unspecified cause Pre-operative examination- Primary Preoperative examination, unspecified Microvascular angina Paroxysmal SVT (supraventricular tachycardia) (HCC) Paroxysmal supraventricular tachycardia Hyperlipidemia, unspecified hyperlipidemia type Primary hypertension Unspecified essential hypertension ASHD (arteriosclerotic heart disease) Coronary atherosclerosis of unspecified type of vessel, tetlin or graft 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 Trigeminal neuralgia Valvular heart disease Endocarditis, valve unspecified, unspecified cause Mild pulmonary hypertension (HCC) Other chronic pulmonary heart diseases Hiatal hernia Diaphragmatic hernia without mention of obstruction or gangrene Esophageal dysphagia Dysphagia, pharyngoesophageal phase Diverticulitis Diverticulitis of colon (without mention of hemorrhage) Gastroesophageal reflux disease, unspecified whether esophagitis present Chronic hypokalemia Hypopotassemia Stage 3a chronic kidney disease (HCC) Diabetes mellitus type II (HCC) Postablative hypothyroidism Other postablative hypothyroidism Age-related osteoporosis without current pathological fracture Senile osteoporosis Obesity, Class I, BMI 30-34.9 Obesity, unspecified Interstitial pulmonary disease, unspecified (HCC) Diabetes mellitus type II (HCC)- Primary Hyperlipidemia, unspecified hyperlipidemia type Primary hypertension Unspecified essential hypertension Stage 3a chronic kidney disease (HCC) Hyponatremia Hyposmolality and/or hyponatremia ASHD (arteriosclerotic heart disease) Coronary atherosclerosis of unspecified type of vessel, tetlin or graft SVT (supraventricular tachycardia) (HCC) Other specified cardiac dysrhythmias Actinic keratosis [facility] Diagnostic Procedure Only (Routine) - Closed Specialty Diagnoses / Procedures Referred By Contac t Referred To Contact XR IMAGING Diagnoses Neck pain Procedures XR CERV OTHER 4V AP/LAT/OBL RADEX SPINE CERVICAL 4 OR 5 VIEWS Abhishek Yi MD [address] [place] [address] Xr Imaging Referral ID Status Reason Start Date Expiration Date V isits Requested Visits Authorized [id number] Closed Auto-Generate d Referral 02/17/2022 03/19/2023 1 1 [facility] for referral (narrative)* Diagnostic Procedure Only (Routine) - Closed Specialty Diagnoses / Procedures Referred By Contac t Referred To Contact XR IMAGING Diagnoses Neck pain Procedures XR CERV OTHER 4V AP/LAT/OBL RADEX SPINE CERVICAL 4 OR 5 VIEWS Abhishek Yi MD [address] [place] [address] Xr Imaging Referral ID Status Reason Start Date Expiration Date V isits Requested Visits Authorized [id number] Closed Auto-Generate d Referral 02/17/2022 03/19/2023 1 1 [facility] for referral (narrative)* Diagnostic Procedure Only (Routine) - Closed Specialty Diagnoses / Procedures Referred By Contac t Referred To Contact MR IMAGING Diagnoses Spinal stenosis of cervical region Procedures MRI CERVICAL SPINE WO IVCON MRI SPINAL CANAL CERVICAL W/O CONTRAST Nazia Mahan PA-C [address] [place] [address] Mr Imaging Referral ID Status Reason Start Date Expiration Date Visits Re quested Visits Authorized [id number] Closed 03/15/2022 04/14/2022 1 1 [facility] for referral (narrative)* Diagnostic Procedure Only (Routine) - Authorized Specialty Diagnoses / Procedures Referred By Contac t Referred To Contact BR IMAGING Diagnoses Screening mammogram for breast cancer Procedures ABDELRAHMAN SCREENING SCREENING MAMMOGRAPHY BI 2-VIEW BREAST INC CAD Elisa Starr MD [address] [place] [address] Br Imaging [address] [place] [address] Referral ID Status Reason Start Date Expiration Date Visits Requested Visits Authorized [id number] Authorized Auto-Generat ed Referral 05/16/2022 06/15/2023 1 1 [facility] for referral (narrative)* Outpatient Procedure (Routine) - Closed Specialty Diagnoses / Procedures Referred By Contac t Referred To Contact [facility] Diagnoses Chest pain, unspecified type Procedures ECG COMPLETE ECG ROUTINE ECG W/LEAST 12 LDS W/I&R Elisa Starr MD [address] [place] [address] [facility] [address] [address] Referral ID Status Reason Start Date Expiration Date V isits Requested Visits Authorized [id number] Closed Auto-Generate d Referral 12/27/2022 12/27/2023 1 1 [facility] for referral (narrative)* Outpatient Procedure (Routine) - Closed Specialty Diagnoses / Procedures Referred By Contac t Referred To Contact [facility] Diagnoses SOB (shortness of breath) Procedures LUNG VOLUMES Alyx Marie MD [address] [place] [address] [facility] [place] [address] [place] [address] Referral ID Status Reason Start Date Expiration Date V isits Requested Visits Authorized [id number] Closed Auto-Generate d Referral 06/06/2023 07/05/2024 1 1 * Outpatient Procedure (Routine) - Closed Specialty Diagnoses / Procedures Referred By Contac t Referred To Contact [facility] Diagnoses SOB (shortness of breath) Procedures SPIROMETRY WITH DILATOR IF OBSTRUCTED BRNCDILAT RSPSE SPMTRY PRE&POST-BRNCDILAT ADMAlanis Dengzabeth Ainsley, MD [address] [place] [address] [facility] [place] [address] [place] [address] Referral ID Status Reason Start Date Expiration Date V isits Requested Visits Authorized [id number] Closed Auto-Generate d Referral 06/06/2023 07/05/2024 1 1 [facility] for referral (narrative)* Diagnostic Procedure Only (Routine) - Pending Review Specialty Diagnoses / Procedures Referred By Contac t Referred To Contact BR IMAGING Diagnoses Encounter for other screening for malignant neoplasm of breast Procedures ABDELRAHMAN SCREENING SCREENING MAMMOGRAPHY BI 2-VIEW BREAST INC CAD Elisa Starr MD [address] [place] [address] Br Imaging [address] [place] [address] Referral ID Status Reason Start Date Expiration Date Visits Requested Visits Authorized [id number] Pending Review Auto-Generat ed Referral 3 11/18/2024 1 1 [facility] for referral (narrative)* Outpatient Procedure (Routine) - Closed Specialty Diagnoses / Procedures Referred By Contac t Referred To Contact [facility] Diagnoses Esophageal dysphagia Hiatal hernia Procedures EGD DIAGNOSTIC ESOPHAGOGASTRODUODENOSC OPY TRANSORAL DIAGNOSTIC Behzad Kelley MD [address] [place] [address] [facility] [place] [address] [place] [address] Referral ID Status Reason Start Date Expiration Date V isits Requested Visits Authorized [id number] Closed Auto-Generate d Referral 01/03/2024 02/01/2024 1 1 [facility] for referral (narrative)* Outpatient Procedure (Routine) - Closed Specialty Diagnoses / Procedures Referred By Contac t Referred To Contact [facility] Diagnoses Transient visual loss of both eyes Procedures US CAROTID ARTERIES KATH VAS LAB DUPLEX SCAN EXTRACRANIAL [place] [address] [place] [address] [facility] [place] [address] [place] [address] Referral ID Status Reason Start Date Expiration Date V isits Requested Visits Authorized [id number] Closed Auto-Generate d Referral 05/14/2024 11/05/2024 1 1 [facility] for referral (narrative)* Diagnostic Procedure Only (Routine) - Authorized Specialty Diagnoses / Procedures Referred By Contac t Referred To Contact XR IMAGING Diagnoses Age-related osteoporosis without current pathological fracture Procedures DXA-AXIAL SKELETON Elisa Starr MD [address] [place] [address] Xr Imaging [id number] Referral ID Status Reason Start Date Expiration Date Visits Requested Visits Authorized [id number] Authorized Auto-Generat ed Referral 05/29/2024 06/28/2025 1 1 T [facility] for referral (narrative)* Diagnostic Procedure Only (Routine) - Closed Specialty Diagnoses / Procedures Referred By Contac t Referred To Contact XR IMAGING Diagnoses Age-related osteoporosis without current pathological fracture Procedures DXA-AXIAL SKELETON Elisa Starr MD [address] [place] [address] Xr Imaging [id number] Referral ID Status Reason Start Date Expiration Date V isits Requested Visits Authorized [id number] Closed Auto-Generate d Referral 05/29/2024 06/28/2025 1 1 T [facility] for referral (narrative)* Diagnostic Procedure Only (Routine) - Closed Specialty Diagnoses / Procedures Referred By Contac t Referred To Contact XR IMAGING Diagnoses Acute left ankle pain Acute pain of left knee Procedures XR KNEE GENERAL 4V AP BOTH/PA BOTH/LAT/MERC LEFT RADIOLOGIC EXAM KNEE COMPLETE 4/MORE VIEWS Anju Hariston PA-C [address] [place] [address] [place] [id number] Referral ID Status Reason Start Date Expiration Date V isits Requested Visits Authorized [id number] Closed Auto-Generate d Referral 08/19/2024 09/18/2025 1 1 * Diagnostic Procedure Only (Routine) - Closed Specialty Diagnoses / Procedures Referred By Contac t Referred To Contact XR IMAGING Diagnoses Acute left ankle pain Procedures XR ANKLE GENERAL 3V AP/LAT/OBL LEFT RADEX ANKLE COMPLETE MINIMUM 3 VIEWS Anju Hairston PA-C [address] [place] [address] [place] [address] Referral ID Status Reason Start Date Expiration Date V isits Requested Visits Authorized [id number] Closed Auto-Generate d Referral 08/19/2024 09/18/2025 1 1 [facility] for visit Narrative* Diagnostic Procedure Only (Routine) - Closed Specialty Diagnoses / Procedures Referred By Contac t Referred To Contact XR IMAGING Diagnoses Neck pain Procedures XR CERV OTHER 4V AP/LAT/OBL RADEX SPINE CERVICAL 4 OR 5 VIEWS Abhishek Yi MD [address] [place] [address] Xr Imaging Referral ID Status Reason Start Date Expiration Date V isits Requested Visits Authorized [id number] Closed Auto-Generate d Referral 02/17/2022 03/19/2023 1 1 [facility] for visit Narrative* Diagnostic Procedure Only (Routine) - Closed Specialty Diagnoses / Procedures Referred By Contac t Referred To Contact MR IMAGING Diagnoses Spinal stenosis of cervical region Procedures MRI CERVICAL SPINE WO IVCON MRI SPINAL CANAL CERVICAL W/O CONTRAST Nazia Mahan PA-C [address] [place] [address] Mr Imaging Referral ID Status Reason Start Date Expiration Date Visits Re quested Visits Authorized [id number] Closed 03/15/2022 04/14/2022 1 1 [facility] for visit Narrative* Outpatient Procedure (Routine) - Closed Specialty Diagnoses / Procedures Referred By Contac t Referred To Contact [facility] Diagnoses Esophageal dysphagia Hiatal hernia Procedures EGD DIAGNOSTIC ESOPHAGOGASTRODUODENOSC OPY TRANSORAL DIAGNOSTIC Behzad Kelley MD [address] [place] [address] [facility] [place] [address] [place] [address] Referral ID Status Reason Start Date Expiration Date V isits Requested Visits Authorized [id number] Closed Auto-Generate d Referral 01/03/2024 02/01/2024 1 1 [facility] for visit Narrative* Diagnostic Procedure Only (Routine) - Closed Specialty Diagnoses / Procedures Referred By Contac t Referred To Contact XR IMAGING Diagnoses Age-related osteoporosis without current pathological fracture Procedures DXA-AXIAL SKELETON Elisa Starr MD [address] [place] [address] [place] [address] Referral ID Status Reason Start Date Expiration Date V isits Requested Visits Authorized [id number] Closed Auto-Generate d Referral 05/29/2024 06/28/2025 1 1 [facility] for visit Narrative* Diagnostic Procedure Only (Routine) - Closed Specialty Diagnoses / Procedures Referred By Contac t Referred To Contact XR IMAGING Diagnoses Acute left ankle pain Acute pain of left knee Procedures XR KNEE GENERAL 4V AP BOTH/PA BOTH/LAT/MERC LEFT RADIOLOGIC EXAM KNEE COMPLETE 4/MORE VIEWS Anju Hairston, PA-C [address] [place] [address] [place] [address] Referral ID Status Reason Start Date Expiration Date V isits Requested Visits Authorized [id number] Closed Auto-Generate d Referral 08/19/2024 09/18/2025 1 1 [facility] for visit Narrative* Diagnostic Procedure Only (Routine) - Closed Specialty Diagnoses / Procedures Referred By Contac t Referred To Contact BR IMAGING Diagnoses Encounter for screening mammogram for malignant neoplasm of breast Procedures ABDELRAHMAN SCREENING SCREENING MAMMOGRAPHY BI 2-VIEW BREAST INC CAD Podlogar, Elizabeth, BOWLING BALL ASSEMBLER.CASH ACCOUNTING CLERK [address] [place] [address] Br Imaging [address] [address] Referral ID Status Reason Start Date Expiration Date V isits Requested Visits Authorized [id number] Closed Auto-Generate d Referral 10/15/2024 11/14/2025 1 1 [facility] for visit Narrative* MRI/CT (Routine) - Closed Specialty Diagnoses / Procedures Referred By Contac t Referred To Contact CT IMAGING Diagnoses Periumbilical abdominal pain LLQ pain Procedures CT ABD/PEL W IVCON CT ABD & PELVIS W/CONTRAST Podlogjuliet, Elizabeth, BOWLING BALL ASSEMBLER.CASH ACCOUNTING CLERK [address] [place] [address] Phone: tel: fax: [place] [address] Referral ID Status Reason Start Date Expiration Date V isits Requested Visits Authorized [id number] Closed Auto-Generate d Referral 01/21/2025 03/22/2025 2 2 [facility] Summary Purpose Family History Relationship Condition Age at Onset Recorded Date/T mandy mother Diabetes mellitus Unknown Cardiac disease Unknown Hypertension Unknown Cerebrovascular accident (CVA) Unknown sister Hypertension Unknown brother Cardiac disease Unknown Advance Directives Documents on File Type Date Recorded 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 Advance Directive(s) 06/02/2021 10:07 AM Advance Directive(s) 06/01/2021 1:15 PM Advance Directive(s) 04/28/2021 11:14 AM Advance Directive(s) 04/16/2021 8:41 AM Advance Directive(s) 03/22/2021 9:05 AM Advance Directive(s) 01/04/2016 8:27 AM Advance Directive(s) 12/30/2015 11:34 AM Documents on File Type Date Recorded 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 Advance Directive(s) 06/02/2021 10:07 AM Advance Directive(s) 06/01/2021 1:15 PM Advance Directive(s) 04/28/2021 11:14 AM Advance Directive(s) 04/16/2021 8:41 AM Advance Directive(s) 03/22/2021 9:05 AM Advance Directive(s) 01/04/2016 8:27 AM Advance Directive(s) 12/30/2015 11:34 AM Advance Directive Response Recorded Date/ Time Advance Directives Yes August 16, 2019 7:15am Living Will No January 26, 2023 12:58pm Power of Application Development Team Lead No January 26 12:58pm Reason for Referral Specialty Diagnoses / Procedures Referred By Contac t Referred To Contact Orthopedics Diagnoses Trigger finger, unspecified finger, unspecified laterality Procedures CONSULT TO ORTHOPAEDICS OFFICE/OUTPATIENT [facility] 60-74 MINUTES Elisa Starr MD [address] [place] [address] Referral ID Status Reason Start Date Expiration Date Visits Requested Visits Authorized [id number] Pending Review PCP Requested Referral 01/28/2022 01/28/2023 1 1 Specialty Diagnoses / Procedures Referred By Contac t Referred To Contact MR IMAGING Diagnoses Spinal stenosis of cervical region Procedures MRI CERVICAL SPINE WO IVCON MRI SPINAL CANAL CERVICAL W/O CONTRAST Nazia Mahan PA-C [address] [place] [address] Mr Imaging Referral ID Status Reason Start Date Expiration Date Visits Requested Visits Authorized [id number] Pending Review Auto-Generat ed Referral 02/28/2022 03/30/2023 1 1 Specialty Diagnoses / Procedures Referred By Contac t Referred To Contact Diagnoses Dyspnea on exertion Procedures CONSULT TO PULMONARY MEDICINE Zoya Almaraz APRN.CASH ACCOUNTING CLERK [address] [address] Fax: Referral ID Status Reason Start Date Expiration Date Visits Requested Visits Authorized [id number] Ref Not Required PCP Requested Referral 02/07/2023 05/08/2023 1 1 Specialty Diagnoses / Procedures Referred By Contac t [facility] Diagnoses Syncope, unspecified syncope type Procedures ECHO ECHO TTHRC R-T 2D W/WOM-MODE COMPL SPEC&COLR D Zoya Almaraz APRN.CASH ACCOUNTING CLERK [address] [place] [id number] [facility] [address] [place] [address] Referral ID Status Reason Start Date Expiration Date Visits Requested Visits Authorized [id number] Pending Review Auto-Generat ed Referral 02/07/2023 02/07/2024 1 1 Specialty Diagnoses / Procedures Referred By Contac t Referred To Contact Orthopedics Diagnoses Trigger ring finger of left hand Procedures CONSULT TO ORTHOPAEDICS OFFICE/OUTPATIENT [facility] 60 MINUTES Elisa Starr MD [address] [place] [address] Referral ID Status Reason Start Date Expiration Date Visits Requested Visits Authorized [id number] Authorized PCP Requested Referral 03/06/2024 03/06/2025 1 1 Medications Administered Section Inactive Administered Medications - up to 3 most recent administrations Medication Order MAR Action Action Date Dose Rate Site betamethasone acetate-betamethasone sodium phosphate 3 mg injection (CELESTONE) 3 mg, Injection - FOR ORTHO USE ONLY, ONE TIME INJECTION, 1 dose, Starting on Nesha 02/17/22 at 1124, Until Nesha 02/17/22 at 1124 Given 02/17/2022 11:24 AM EDT 3 mg lidocaine (PF) 10 mg/mL (1 %) 0.5 mL injection (XYLOCAINE) 0.5 mL, Injection - FOR ORTHO USE ONLY, ONE TIME INJECTION, 1 dose, Starting on Nesha 02/17/22 at 1124, Until Nesha 02/17/22 at 1124 Given 02/17/2022 11:24 AM EDT 0.5 mL Chief Complaint and Reason for Visit Chief Complaint WEAKNESS Additional Source Comments INFORMATION SOURCE (unrecogn ized section and content) DATE CREATED AUTHOR 04/27/2018 [facility] DATE CREATED AUTHOR AUTHOR'S ORGANIZ ATION 02/09/2023 [facility] DATE CREATED AUTHOR AUTHOR'S ORGANIZ ATION 06/30/2024 [facility] DATE CREATED AUTHOR AUTHOR'S ORGANIZ ATION 04/02/2025 [facility] DATE CREATED AUTHOR AUTHOR'S ORGANIZ ATION 07/06/2025 [facility] Source Comments (unrecognize d section and content) In the event this informatio n is protected by the Federal Confidentiality of Alcohol and Drug Abuse Patient Records regulations: The Federal rules restrict any use of the information to criminally investigate or prosecute any alcohol or drug abuse patient.[facility] the event this information is protected by the Federal Confidentiality of Alcohol and Drug Abuse Patient Records regulations: The Federal rules restrict any use of the information to criminally investigate or prosecute any alcohol or drug abuse patient.[facility]In the event this information is protected by the Federal Confidentiality of Alcohol and Drug Abuse Patient Records regulations: The Federal rules restrict any use of the information to criminally investigate or prosecute any alcohol or drug abuse patient.[facility]In the event this information is protected by the Federal Confidentiality of Alcohol and Drug Abuse Patient Records regulations: The Federal rules restrict any use of the information to criminally investigate or prosecute any alcohol or drug abuse patient.[facility]In the event this information is protected by the Federal Confidentiality of Alcohol and Drug Abuse Patient Records regulations: The Federal rules restrict any use of the information to criminally investigate or prosecute any alcohol or drug abuse patient.[facility]In the event this information is protected by the Federal Confidentiality of Alcohol and Drug Abuse Patient Records regulations: The Federal rules restrict any use of the information to criminally investigate or prosecute any alcohol or drug abuse patient.[facility]In the event this information is protected by the Federal Confidentiality of Alcohol and Drug Abuse Patient Records regulations: The Federal rules restrict any use of the information to criminally investigate or prosecute any alcohol or drug abuse patient.[facility]In the event this information is protected by the Federal Confidentiality of Alcohol and Drug Abuse Patient Records regulations: The Federal rules restrict any use of the information to criminally investigate or prosecute any alcohol or drug abuse patient.[facility]In the event this information is protected by the Federal Confidentiality of Alcohol and Drug Abuse Patient Records regulations: The Federal rules restrict any use of the information to criminally investigate or prosecute any alcohol or drug abuse patient.[facility] HospitalIn the event this information is protected by the Federal Confidentiality of Alcohol and Drug Abuse Patient Records regulations: The Federal rules restrict any use of the information to criminally investigate or prosecute any alcohol or drug abuse patient.[facility]In the event this information is protected by the Federal Confidentiality of Alcohol and Drug Abuse Patient Records regulations: The Federal rules restrict any use of the information to criminally investigate or prosecute any alcohol or drug abuse patient.[facility] HospitalIn the event this information is protected by the Federal Confidentiality of Alcohol and Drug Abuse Patient Records regulations: The Federal rules restrict any use of the information to criminally investigate or prosecute any alcohol or drug abuse patient.[facility] HospitalIn the event this information is protected by the Federal Confidentiality of Alcohol and Drug Abuse Patient Records regulations: The Federal rules restrict any use of the information to criminally investigate or prosecute any alcohol or drug abuse patient.[facility] HospitalIn the event this information is protected by the Federal Confidentiality of Alcohol and Drug Abuse Patient Records regulations: The Federal rules restrict any use of the information to criminally investigate or prosecute any alcohol or drug abuse patient.[facility] HospitalIn the event this information is protected by the Federal Confidentiality of Alcohol and Drug Abuse Patient Records regulations: The Federal rules restrict any use of the information to criminally investigate or prosecute any alcohol or drug abuse patient.[facility] HospitalIn the event this information is protected by the Federal Confidentiality of Alcohol and Drug Abuse Patient Records regulations: The Federal rules restrict any use of the information to criminally investigate or prosecute any alcohol or drug abuse patient.[facility] HospitalIn the event this information is protected by the Federal Confidentiality of Alcohol and Drug Abuse Patient Records regulations: The Federal rules restrict any use of the information to criminally investigate or prosecute any alcohol or drug abuse patient.[facility] HospitalIn the event this information is protected by the Federal Confidentiality of Alcohol and Drug Abuse Patient Records regulations: The Federal rules restrict any use of the information to criminally investigate or prosecute any alcohol or drug abuse patient.[facility] HospitalIn the event this information is protected by the Federal Confidentiality of Alcohol and Drug Abuse Patient Records regulations: The Federal rules restrict any use of the information to criminally investigate or prosecute any alcohol or drug abuse patient.[facility] HospitalIn the event this information is protected by the Federal Confidentiality of Alcohol and Drug Abuse Patient Records regulations: The Federal rules restrict any use of the information to criminally investigate or prosecute any alcohol or drug abuse patient.[facility] HospitalIn the event this information is protected by the Federal Confidentiality of Alcohol and Drug Abuse Patient Records regulations: The Federal rules restrict any use of the information to criminally investigate or prosecute any alcohol or drug abuse patient.[facility] HospitalIn the event this information is protected by the Federal Confidentiality of Alcohol and Drug Abuse Patient Records regulations: The Federal rules restrict any use of the information to criminally investigate or prosecute any alcohol or drug abuse patient.[facility] HospitalIn the event this information is protected by the Federal Confidentiality of Alcohol and Drug Abuse Patient Records regulations: The Federal rules restrict any use of the information to criminally investigate or prosecute any alcohol or drug abuse patient.[facility] HospitalIn the event this information is protected by the Federal Confidentiality of Alcohol and Drug Abuse Patient Records regulations: The Federal rules restrict any use of the information to criminally investigate or prosecute any alcohol or drug abuse patient.[facility] HospitalIn the event this information is protected by the Federal Confidentiality of Alcohol and Drug Abuse Patient Records regulations: The Federal rules restrict any use of the information to criminally investigate or prosecute any alcohol or drug abuse patient.[facility] HospitalIn the event this information is protected by the Federal Confidentiality of Alcohol and Drug Abuse Patient Records regulations: The Federal rules restrict any use of the information to criminally investigate or prosecute any alcohol or drug abuse patient.[facility] HospitalIn the event this information is protected by the Federal Confidentiality of Alcohol and Drug Abuse Patient Records regulations: The Federal rules restrict any use of the information to criminally investigate or prosecute any alcohol or drug abuse patient.[facility] HospitalIn the event this information is protected by the Federal Confidentiality of Alcohol and Drug Abuse Patient Records regulations: The Federal rules restrict any use of the information to criminally investigate or prosecute any alcohol or drug abuse patient.[facility] HospitalIn the event this information is protected by the Federal Confidentiality of Alcohol and Drug Abuse Patient Records regulations: The Federal rules restrict any use of the information to criminally investigate or prosecute any alcohol or drug abuse patient.[facility] HospitalIn the event this information is protected by the Federal Confidentiality of Alcohol and Drug Abuse Patient Records regulations: The Federal rules restrict any use of the information to criminally investigate or prosecute any alcohol or drug abuse patient.[facility] HospitalIn the event this information is protected by the Federal Confidentiality of Alcohol and Drug Abuse Patient Records regulations: The Federal rules restrict any use of the information to criminally investigate or prosecute any alcohol or drug abuse patient.[facility] HospitalIn the event this information is protected by the Federal Confidentiality of Alcohol and Drug Abuse Patient Records regulations: The Federal rules restrict any use of the information to criminally investigate or prosecute any alcohol or drug abuse patient.[facility] HospitalIn the event this information is protected by the Federal Confidentiality of Alcohol and Drug Abuse Patient Records regulations: The Federal rules restrict any use of the information to criminally investigate or prosecute any alcohol or drug abuse patient.[facility] HospitalIn the event this information is protected by the Federal Confidentiality of Alcohol and Drug Abuse Patient Records regulations: The Federal rules restrict any use of the information to criminally investigate or prosecute any alcohol or drug abuse patient.[facility] HospitalIn the event this information is protected by the Federal Confidentiality of Alcohol and Drug Abuse Patient Records regulations: The Federal rules restrict any use of the information to criminally investigate or prosecute any alcohol or drug abuse patient.[facility] HospitalIn the event this information is protected by the Federal Confidentiality of Alcohol and Drug Abuse Patient Records regulations: The Federal rules restrict any use of the information to criminally investigate or prosecute any alcohol or drug abuse patient.[facility] HospitalIn the event this information is protected by the Federal Confidentiality of Alcohol and Drug Abuse Patient Records regulations: The Federal rules restrict any use of the information to criminally investigate or prosecute any alcohol or drug abuse patient.[facility] HospitalIn the event this information is protected by the Federal Confidentiality of Alcohol and Drug Abuse Patient Records regulations: The Federal rules restrict any use of the information to criminally investigate or prosecute any alcohol or drug abuse patient.[facility] HospitalIn the event this information is protected by the Federal Confidentiality of Alcohol and Drug Abuse Patient Records regulations: The Federal rules restrict any use of the information to criminally investigate or prosecute any alcohol or drug abuse patient.[facility] HospitalIn the event this information is protected by the Federal Confidentiality of Alcohol and Drug Abuse Patient Records regulations: The Federal rules restrict any use of the information to criminally investigate or prosecute any alcohol or drug abuse patient.[facility] HospitalIn the event this information is protected by the Federal Confidentiality of Alcohol and Drug Abuse Patient Records regulations: The Federal rules restrict any use of the information to criminally investigate or prosecute any alcohol or drug abuse patient.[facility] HospitalIn the event this information is protected by the Federal Confidentiality of Alcohol and Drug Abuse Patient Records regulations: The Federal rules restrict any use of the information to criminally investigate or prosecute any alcohol or drug abuse patient.[facility] HospitalIn the event this information is protected by the Federal Confidentiality of Alcohol and Drug Abuse Patient Records regulations: The Federal rules restrict any use of the information to criminally investigate or prosecute any alcohol or drug abuse patient.[facility] HospitalIn the event this information is protected by the Federal Confidentiality of Alcohol and Drug Abuse Patient Records regulations: The Federal rules restrict any use of the information to criminally investigate or prosecute any alcohol or drug abuse patient.[facility] HospitalIn the event this information is protected by the Federal Confidentiality of Alcohol and Drug Abuse Patient Records regulations: The Federal rules restrict any use of the information to criminally investigate or prosecute any alcohol or drug abuse patient.[facility] HospitalIn the event this information is protected by the Federal Confidentiality of Alcohol and Drug Abuse Patient Records regulations: The Federal rules restrict any use of the information to criminally investigate or prosecute any alcohol or drug abuse patient.[facility] HospitalIn the event this information is protected by the Federal Confidentiality of Alcohol and Drug Abuse Patient Records regulations: The Federal rules restrict any use of the information to criminally investigate or prosecute any alcohol or drug abuse patient.[facility] HospitalIn the event this information is protected by the Federal Confidentiality of Alcohol and Drug Abuse Patient Records regulations: The Federal rules restrict any use of the information to criminally investigate or prosecute any alcohol or drug abuse patient.[facility] HospitalIn the event this information is protected by the Federal Confidentiality of Alcohol and Drug Abuse Patient Records regulations: The Federal rules restrict any use of the information to criminally investigate or prosecute any alcohol or drug abuse patient.[facility] HospitalIn the event this information is protected by the Federal Confidentiality of Alcohol and Drug Abuse Patient Records regulations: The Federal rules restrict any use of the information to criminally investigate or prosecute any alcohol or drug abuse patient.[facility] HospitalIn the event this information is protected by the Federal Confidentiality of Alcohol and Drug Abuse Patient Records regulations: The Federal rules restrict any use of the information to criminally investigate or prosecute any alcohol or drug abuse patient.[facility] HospitalIn the event this information is protected by the Federal Confidentiality of Alcohol and Drug Abuse Patient Records regulations: The Federal rules restrict any use of the information to criminally investigate or prosecute any alcohol or drug abuse patient.[facility] HospitalIn the event this information is protected by the Federal Confidentiality of Alcohol and Drug Abuse Patient Records regulations: The Federal rules restrict any use of the information to criminally investigate or prosecute any alcohol or drug abuse patient.[facility] HospitalIn the event this information is protected by the Federal Confidentiality of Alcohol and Drug Abuse Patient Records regulations: The Federal rules restrict any use of the information to criminally investigate or prosecute any alcohol or drug abuse patient.[facility] HospitalIn the event this information is protected by the Federal Confidentiality of Alcohol and Drug Abuse Patient Records regulations: The Federal rules restrict any use of the information to criminally investigate or prosecute any alcohol or drug abuse patient.[facility]In the event this information is protected by the Federal Confidentiality of Alcohol and Drug Abuse Patient Records regulations: The Federal rules restrict any use of the information to criminally investigate or prosecute any alcohol or drug abuse patient.[facility]In the event this information is protected by the Federal Confidentiality of Alcohol and Drug Abuse Patient Records regulations: The Federal rules restrict any use of the information to criminally investigate or prosecute any alcohol or drug abuse patient.[facility] HospitalIn the event this information is protected by the Federal Confidentiality of Alcohol and Drug Abuse Patient Records regulations: The Federal rules restrict any use of the information to criminally investigate or prosecute any alcohol or drug abuse patient.[facility] HospitalIn the event this information is protected by the Federal Confidentiality of Alcohol and Drug Abuse Patient Records regulations: The Federal rules restrict any use of the information to criminally investigate or prosecute any alcohol or drug abuse patient.[facility] HospitalIn the event this information is protected by the Federal Confidentiality of Alcohol and Drug Abuse Patient Records regulations: The Federal rules restrict any use of the information to criminally investigate or prosecute any alcohol or drug abuse patient.[facility] HospitalIn the event this information is protected by the Federal Confidentiality of Alcohol and Drug Abuse Patient Records regulations: The Federal rules restrict any use of the information to criminally investigate or prosecute any alcohol or drug abuse patient.[facility] HospitalIn the event this information is protected by the Federal Confidentiality of Alcohol and Drug Abuse Patient Records regulations: The Federal rules restrict any use of the information to criminally investigate or prosecute any alcohol or drug abuse patient.[facility] HospitalIn the event this information is protected by the Federal Confidentiality of Alcohol and Drug Abuse Patient Records regulations: The Federal rules restrict any use of the information to criminally investigate or prosecute any alcohol or drug abuse patient.[facility] HospitalIn the event this information is protected by the Federal Confidentiality of Alcohol and Drug Abuse Patient Records regulations: The Federal rules restrict any use of the information to criminally investigate or prosecute any alcohol or drug abuse patient.[facility]In the event this information is protected by the Federal Confidentiality of Alcohol and Drug Abuse Patient Records regulations: The Federal rules restrict any use of the information to criminally investigate or prosecute any alcohol or drug abuse patient.[facility]In the event this information is protected by the Federal Confidentiality of Alcohol and Drug Abuse Patient Records regulations: The Federal rules restrict any use of the information to criminally investigate or prosecute any alcohol or drug abuse patient.[facility] HospitalIn the event this information is protected by the Federal Confidentiality of Alcohol and Drug Abuse Patient Records regulations: The Federal rules restrict any use of the information to criminally investigate or prosecute any alcohol or drug abuse patient.[facility] HospitalIn the event this information is protected by the Federal Confidentiality of Alcohol and Drug Abuse Patient Records regulations: The Federal rules restrict any use of the information to criminally investigate or prosecute any alcohol or drug abuse patient.[facility] HospitalIn the event this information is protected by the Federal Confidentiality of Alcohol and Drug Abuse Patient Records regulations: The Federal rules restrict any use of the information to criminally investigate or prosecute any alcohol or drug abuse patient.[facility] HospitalIn the event this information is protected by the Federal Confidentiality of Alcohol and Drug Abuse Patient Records regulations: The Federal rules restrict any use of the information to criminally investigate or prosecute any alcohol or drug abuse patient.[facility] HospitalIn the event this information is protected by the Federal Confidentiality of Alcohol and Drug Abuse Patient Records regulations: The Federal rules restrict any use of the information to criminally investigate or prosecute any alcohol or drug abuse patient.[facility]In the event this information is protected by the Federal Confidentiality of Alcohol and Drug Abuse Patient Records regulations: The Federal rules restrict any use of the information to criminally investigate or prosecute any alcohol or drug abuse patient.[facility]In the event this information is protected by the Federal Confidentiality of Alcohol and Drug Abuse Patient Records regulations: The Federal rules restrict any use of the information to criminally investigate or prosecute any alcohol or drug abuse patient.[facility]In the event this information is protected by the Federal Confidentiality of Alcohol and Drug Abuse Patient Records regulations: The Federal rules restrict any use of the information to criminally investigate or prosecute any alcohol or drug abuse patient.[facility] [facility] the event this information is protected by the Federal Confidentiality of Alcohol and Drug Abuse Patient Records regulations: The Federal rules restrict any use of the information to criminally investigate or prosecute any alcohol or drug abuse patient.[facility]In the event this information is protected by the Federal Confidentiality of Alcohol and Drug Abuse Patient Records regulations: The Federal rules restrict any use of the information to criminally investigate or prosecute any alcohol or drug abuse patient.[facility]In the event this information is protected by the Federal Confidentiality of Alcohol and Drug Abuse Patient Records regulations: The Federal rules restrict any use of the information to criminally investigate or prosecute any alcohol or drug abuse patient.[facility]In the event this information is protected by the Federal Confidentiality of Alcohol and Drug Abuse Patient Records regulations: The Federal rules restrict any use of the information to criminally investigate or prosecute any alcohol or drug abuse patient.[facility]In the event this information is protected by the Federal Confidentiality of Alcohol and Drug Abuse Patient Records regulations: The Federal rules restrict any use of the information to criminally investigate or prosecute any alcohol or drug abuse patient.[facility]In the event this information is protected by the Federal Confidentiality of Alcohol and Drug Abuse Patient Records regulations: The Federal rules restrict any use of the information to criminally investigate or prosecute any alcohol or drug abuse patient.[facility]In the event this information is protected by the Federal Confidentiality of Alcohol and Drug Abuse Patient Records regulations: The Federal rules restrict any use of the information to criminally investigate or prosecute any alcohol or drug abuse patient.[facility]In the event this information is protected by the Federal Confidentiality of Alcohol and Drug Abuse Patient Records regulations: The Federal rules restrict any use of the information to criminally investigate or prosecute any alcohol or drug abuse patient.[facility]In the event this information is protected by the Federal Confidentiality of Alcohol and Drug Abuse Patient Records regulations: The Federal rules restrict any use of the information to criminally investigate or prosecute any alcohol or drug abuse patient.[facility]In the event this information is protected by the Federal Confidentiality of Alcohol and Drug Abuse Patient Records regulations: The Federal rules restrict any use of the information to criminally investigate or prosecute any alcohol or drug abuse patient.[facility]In the event this information is protected by the Federal Confidentiality of Alcohol and Drug Abuse Patient Records regulations: The Federal rules restrict any use of the information to criminally investigate or prosecute any alcohol or drug abuse patient.[facility]In the event this information is protected by the Federal Confidentiality of Alcohol and Drug Abuse Patient Records regulations: The Federal rules restrict any use of the information to criminally investigate or prosecute any alcohol or drug abuse patient.[facility]In the event this information is protected by the Federal Confidentiality of Alcohol and Drug Abuse Patient Records regulations: The Federal rules restrict any use of the information to criminally investigate or prosecute any alcohol or drug abuse patient.[facility]In the event this information is protected by the Federal Confidentiality of Alcohol and Drug Abuse Patient Records regulations: The Federal rules restrict any use of the information to criminally investigate or prosecute any alcohol or drug abuse patient.[facility]In the event this information is protected by the Federal Confidentiality of Alcohol and Drug Abuse Patient Records regulations: The Federal rules restrict any use of the information to criminally investigate or prosecute any alcohol or drug abuse patient.[facility]In the event this information is protected by the Federal Confidentiality of Alcohol and Drug Abuse Patient Records regulations: The Federal rules restrict any use of the information to criminally investigate or prosecute any alcohol or drug abuse patient.[facility]In the event this information is protected by the Federal Confidentiality of Alcohol and Drug Abuse Patient Records regulations: The Federal rules restrict any use of the information to criminally investigate or prosecute any alcohol or drug abuse patient.[facility]In the event this information is protected by the Federal Confidentiality of Alcohol and Drug Abuse Patient Records regulations: The Federal rules restrict any use of the information to criminally investigate or prosecute any alcohol or drug abuse patient.[facility]In the event this information is protected by the Federal Confidentiality of Alcohol and Drug Abuse Patient Records regulations: The Federal rules restrict any use of the information to criminally investigate or prosecute any alcohol or drug abuse patient.[facility]In the event this information is protected by the Federal Confidentiality of Alcohol and Drug Abuse Patient Records regulations: The Federal rules restrict any use of the information to criminally investigate or prosecute any alcohol or drug abuse patient.[facility]In the event this information is protected by the Federal Confidentiality of Alcohol and Drug Abuse Patient Records regulations: The Federal rules restrict any use of the information to criminally investigate or prosecute any alcohol or drug abuse patient.[facility]In the event this information is protected by the Federal Confidentiality of Alcohol and Drug Abuse Patient Records regulations: The Federal rules restrict any use of the information to criminally investigate or prosecute any alcohol or drug abuse patient.[facility]In the event this information is protected by the Federal Confidentiality of Alcohol and Drug Abuse Patient Records regulations: The Federal rules restrict any use of the information to criminally investigate or prosecute any alcohol or drug abuse patient.[facility]In the event this information is protected by the Federal Confidentiality of Alcohol and Drug Abuse Patient Records regulations: The Federal rules restrict any use of the information to criminally investigate or prosecute any alcohol or drug abuse patient.[facility]In the event this information is protected by the Federal Confidentiality of Alcohol and Drug Abuse Patient Records regulations: The Federal rules restrict any use of the information to criminally investigate or prosecute any alcohol or drug abuse patient.[facility]In the event this information is protected by the Federal Confidentiality of Alcohol and Drug Abuse Patient Records regulations: The Federal rules restrict any use of the information to criminally investigate or prosecute any alcohol or drug abuse patient.[facility]In the event this information is protected by the Federal Confidentiality of Alcohol and Drug Abuse Patient Records regulations: The Federal rules restrict any use of the information to criminally investigate or prosecute any alcohol or drug abuse patient.[facility]In the event this information is protected by the Federal Confidentiality of Alcohol and Drug Abuse Patient Records regulations: The Federal rules restrict any use of the information to criminally investigate or prosecute any alcohol or drug abuse patient.[facility]In the event this information is protected by the Federal Confidentiality of Alcohol and Drug Abuse Patient Records regulations: The Federal rules restrict any use of the information to criminally investigate or prosecute any alcohol or drug abuse patient.[facility]In the event this information is protected by the Federal Confidentiality of Alcohol and Drug Abuse Patient Records regulations: The Federal rules restrict any use of the information to criminally investigate or prosecute any alcohol or drug abuse patient.[facility]In the event this information is protected by the Federal Confidentiality of Alcohol and Drug Abuse Patient Records regulations: The Federal rules restrict any use of the information to criminally investigate or prosecute any alcohol or drug abuse patient.[facility]In the event this information is protected by the Federal Confidentiality of Alcohol and Drug Abuse Patient Records regulations: The Federal rules restrict any use of the information to criminally investigate or prosecute any alcohol or drug abuse patient.[facility]In the event this information is protected by the Federal Confidentiality of Alcohol and Drug Abuse Patient Records regulations: The Federal rules restrict any use of the information to criminally investigate or prosecute any alcohol or drug abuse patient.[facility]In the event this information is protected by the Federal Confidentiality of Alcohol and Drug Abuse Patient Records regulations: The Federal rules restrict any use of the information to criminally investigate or prosecute any alcohol or drug abuse patient.[facility]In the event this information is protected by the Federal Confidentiality of Alcohol and Drug Abuse Patient Records regulations: The Federal rules restrict any use of the information to criminally investigate or prosecute any alcohol or drug abuse patient.[facility]In the event this information is protected by the Federal Confidentiality of Alcohol and Drug Abuse Patient Records regulations: The Federal rules restrict any use of the information to criminally investigate or prosecute any alcohol or drug abuse patient.[facility]In the event this information is protected by the Federal Confidentiality of Alcohol and Drug Abuse Patient Records regulations: The Federal rules restrict any use of the information to criminally investigate or prosecute any alcohol or drug abuse patient.[facility]In the event this information is protected by the Federal Confidentiality of Alcohol and Drug Abuse Patient Records regulations: The Federal rules restrict any use of the information to criminally investigate or prosecute any alcohol or drug abuse patient.[facility]In the event this information is protected by the Federal Confidentiality of Alcohol and Drug Abuse Patient Records regulations: The Federal rules restrict any use of the information to criminally investigate or prosecute any alcohol or drug abuse patient.[facility]In the event this information is protected by the Federal Confidentiality of Alcohol and Drug Abuse Patient Records regulations: The Federal rules restrict any use of the information to criminally investigate or prosecute any alcohol or drug abuse patient.[facility]In the event this information is protected by the Federal Confidentiality of Alcohol and Drug Abuse Patient Records regulations: The Federal rules restrict any use of the information to criminally investigate or prosecute any alcohol or drug abuse patient.[facility]In the event this information is protected by the Federal Confidentiality of Alcohol and Drug Abuse Patient Records regulations: The Federal rules restrict any use of the information to criminally investigate or prosecute any alcohol or drug abuse patient.[facility]In the event this information is protected by the Federal Confidentiality of Alcohol and Drug Abuse Patient Records regulations: The Federal rules restrict any use of the information to criminally investigate or prosecute any alcohol or drug abuse patient.[facility]In the event this information is protected by the Federal Confidentiality of Alcohol and Drug Abuse Patient Records regulations: The Federal rules restrict any use of the information to criminally investigate or prosecute any alcohol or drug abuse patient.[facility]In the event this information is protected by the Federal Confidentiality of Alcohol and Drug Abuse Patient Records regulations: The Federal rules restrict any use of the information to criminally investigate or prosecute any alcohol or drug abuse patient.[facility]In the event this information is protected by the Federal Confidentiality of Alcohol and Drug Abuse Patient Records regulations: The Federal rules restrict any use of the information to criminally investigate or prosecute any alcohol or drug abuse patient.[facility]In the event this information is protected by the Federal Confidentiality of Alcohol and Drug Abuse Patient Records regulations: The Federal rules restrict any use of the information to criminally investigate or prosecute any alcohol or drug abuse patient.[facility]In the event this information is protected by the Federal Confidentiality of Alcohol and Drug Abuse Patient Records regulations: The Federal rules restrict any use of the information to criminally investigate or prosecute any alcohol or drug abuse patient.[facility]In the event this information is protected by the Federal Confidentiality of Alcohol and Drug Abuse Patient Records regulations: The Federal rules restrict any use of the information to criminally investigate or prosecute any alcohol or drug abuse patient.[facility]In the event this information is protected by the Federal Confidentiality of Alcohol and Drug Abuse Patient Records regulations: The Federal rules restrict any use of the information to criminally investigate or prosecute any alcohol or drug abuse patient.[facility]In the event this information is protected by the Federal Confidentiality of Alcohol and Drug Abuse Patient Records regulations: The Federal rules restrict any use of the information to criminally investigate or prosecute any alcohol or drug abuse patient.[facility]In the event this information is protected by the Federal Confidentiality of Alcohol and Drug Abuse Patient Records regulations: The Federal rules restrict any use of the information to criminally investigate or prosecute any alcohol or drug abuse patient.[facility]In the event this information is protected by the Federal Confidentiality of Alcohol and Drug Abuse Patient Records regulations: The Federal rules restrict any use of the information to criminally investigate or prosecute any alcohol or drug abuse patient.[facility]In the event this information is protected by the Federal Confidentiality of Alcohol and Drug Abuse Patient Records regulations: The Federal rules restrict any use of the information to criminally investigate or prosecute any alcohol or drug abuse patient.[facility]In the event this information is protected by the Federal Confidentiality of Alcohol and Drug Abuse Patient Records regulations: The Federal rules restrict any use of the information to criminally investigate or prosecute any alcohol or drug abuse patient.[facility]In the event this information is protected by the Federal Confidentiality of Alcohol and Drug Abuse Patient Records regulations: The Federal rules restrict any use of the information to criminally investigate or prosecute any alcohol or drug abuse patient.[facility]In the event this information is protected by the Federal Confidentiality of Alcohol and Drug Abuse Patient Records regulations: The Federal rules restrict any use of the information to criminally investigate or prosecute any alcohol or drug abuse patient.[facility]In the event this information is protected by the Federal Confidentiality of Alcohol and Drug Abuse Patient Records regulations: The Federal rules restrict any use of the information to criminally investigate or prosecute any alcohol or drug abuse patient.[facility]In the event this information is protected by the Federal Confidentiality of Alcohol and Drug Abuse Patient Records regulations: The Federal rules restrict any use of the information to criminally investigate or prosecute any alcohol or drug abuse patient.[facility]In the event this information is protected by the Federal Confidentiality of Alcohol and Drug Abuse Patient Records regulations: The Federal rules restrict any use of the information to criminally investigate or prosecute any alcohol or drug abuse patient.[facility]In the event this information is protected by the Federal Confidentiality of Alcohol and Drug Abuse Patient Records regulations: The Federal rules restrict any use of the information to criminally investigate or prosecute any alcohol or drug abuse patient.[facility]In the event this information is protected by the Federal Confidentiality of Alcohol and Drug Abuse Patient Records regulations: The Federal rules restrict any use of the information to criminally investigate or prosecute any alcohol or drug abuse patient.[facility]In the event this information is protected by the Federal Confidentiality of Alcohol and Drug Abuse Patient Records regulations: The Federal rules restrict any use of the information to criminally investigate or prosecute any alcohol or drug abuse patient.[facility]In the event this information is protected by the Federal Confidentiality of Alcohol and Drug Abuse Patient Records regulations: The Federal rules restrict any use of the information to criminally investigate or prosecute any alcohol or drug abuse patient.[facility]In the event this information is protected by the Federal Confidentiality of Alcohol and Drug Abuse Patient Records regulations: The Federal rules restrict any use of the information to criminally investigate or prosecute any alcohol or drug abuse patient.[facility]In the event this information is protected by the Federal Confidentiality of Alcohol and Drug Abuse Patient Records regulations: The Federal rules restrict any use of the information to criminally investigate or prosecute any alcohol or drug abuse patient.[facility]In the event this information is protected by the Federal Confidentiality of Alcohol and Drug Abuse Patient Records regulations: The Federal rules restrict any use of the information to criminally investigate or prosecute any alcohol or drug abuse patient.[facility]In the event this information is protected by the Federal Confidentiality of Alcohol and Drug Abuse Patient Records regulations: The Federal rules restrict any use of the information to criminally investigate or prosecute any alcohol or drug abuse patient.[facility]In the event this information is protected by the Federal Confidentiality of Alcohol and Drug Abuse Patient Records regulations: The Federal rules restrict any use of the information to criminally investigate or prosecute any alcohol or drug abuse patient.[facility]In the event this information is protected by the Federal Confidentiality of Alcohol and Drug Abuse Patient Records regulations: The Federal rules restrict any use of the information to criminally investigate or prosecute any alcohol or drug abuse patient.[facility]In the event this information is protected by the Federal Confidentiality of Alcohol and Drug Abuse Patient Records regulations: The Federal rules restrict any use of the information to criminally investigate or prosecute any alcohol or drug abuse patient.[facility]In the event this information is protected by the Federal Confidentiality of Alcohol and Drug Abuse Patient Records regulations: The Federal rules restrict any use of the information to criminally investigate or prosecute any alcohol or drug abuse patient.[facility]In the event this information is protected by the Federal Confidentiality of Alcohol and Drug Abuse Patient Records regulations: The Federal rules restrict any use of the information to criminally investigate or prosecute any alcohol or drug abuse patient.[facility]In the event this information is protected by the Federal Confidentiality of Alcohol and Drug Abuse Patient Records regulations: The Federal rules restrict any use of the information to criminally investigate or prosecute any alcohol or drug abuse patient.[facility]In the event this information is protected by the Federal Confidentiality of Alcohol and Drug Abuse Patient Records regulations: The Federal rules restrict any use of the information to criminally investigate or prosecute any alcohol or drug abuse patient.[facility]In the event this information is protected by the Federal Confidentiality of Alcohol and Drug Abuse Patient Records regulations: The Federal rules restrict any use of the information to criminally investigate or prosecute any alcohol or drug abuse patient.[facility]In the event this information is protected by the Federal Confidentiality of Alcohol and Drug Abuse Patient Records regulations: The Federal rules restrict any use of the information to criminally investigate or prosecute any alcohol or drug abuse patient.[facility]In the event this information is protected by the Federal Confidentiality of Alcohol and Drug Abuse Patient Records regulations: The Federal rules restrict any use of the information to criminally investigate or prosecute any alcohol or drug abuse patient.[facility]In the event this information is protected by the Federal Confidentiality of Alcohol and Drug Abuse Patient Records regulations: The Federal rules restrict any use of the information to criminally investigate or prosecute any alcohol or drug abuse patient.[facility]In the event this information is protected by the Federal Confidentiality of Alcohol and Drug Abuse Patient Records regulations: The Federal rules restrict any use of the information to criminally investigate or prosecute any alcohol or drug abuse patient.[facility]In the event this information is protected by the Federal Confidentiality of Alcohol and Drug Abuse Patient Records regulations: The Federal rules restrict any use of the information to criminally investigate or prosecute any alcohol or drug abuse patient.[facility]In the event this information is protected by the Federal Confidentiality of Alcohol and Drug Abuse Patient Records regulations: The Federal rules restrict any use of the information to criminally investigate or prosecute any alcohol or drug abuse patient.[facility]In the event this information is protected by the Federal Confidentiality of Alcohol and Drug Abuse Patient Records regulations: The Federal rules restrict any use of the information to criminally investigate or prosecute any alcohol or drug abuse patient.[facility] HospitalIn the event this information is protected by the Federal Confidentiality of Alcohol and Drug Abuse Patient Records regulations: The Federal rules restrict any use of the information to criminally investigate or prosecute any alcohol or drug abuse patient.[facility] HospitalIn the event this information is protected by the Federal Confidentiality of Alcohol and Drug Abuse Patient Records regulations: The Federal rules restrict any use of the information to criminally investigate or prosecute any alcohol or drug abuse patient.[facility] HospitalIn the event this information is protected by the Federal Confidentiality of Alcohol and Drug Abuse Patient Records regulations: The Federal rules restrict any use of the information to criminally investigate or prosecute any alcohol or drug abuse patient.[facility] HospitalIn the event this information is protected by the Federal Confidentiality of Alcohol and Drug Abuse Patient Records regulations: The Federal rules restrict any use of the information to criminally investigate or prosecute any alcohol or drug abuse patient.[facility] HospitalIn the event this information is protected by the Federal Confidentiality of Alcohol and Drug Abuse Patient Records regulations: The Federal rules restrict any use of the information to criminally investigate or prosecute any alcohol or drug abuse patient.[facility] HospitalIn the event this information is protected by the Federal Confidentiality of Alcohol and Drug Abuse Patient Records regulations: The Federal rules restrict any use of the information to criminally investigate or prosecute any alcohol or drug abuse patient.[facility] HospitalIn the event this information is protected by the Federal Confidentiality of Alcohol and Drug Abuse Patient Records regulations: The Federal rules restrict any use of the information to criminally investigate or prosecute any alcohol or drug abuse patient.[facility] HospitalIn the event this information is protected by the Federal Confidentiality of Alcohol and Drug Abuse Patient Records regulations: The Federal rules restrict any use of the information to criminally investigate or prosecute any alcohol or drug abuse patient.[facility] HospitalIn the event this information is protected by the Federal Confidentiality of Alcohol and Drug Abuse Patient Records regulations: The Federal rules restrict any use of the information to criminally investigate or prosecute any alcohol or drug abuse patient.[facility] HospitalIn the event this information is protected by the Federal Confidentiality of Alcohol and Drug Abuse Patient Records regulations: The Federal rules restrict any use of the information to criminally investigate or prosecute any alcohol or drug abuse patient.[facility] HospitalIn the event this information is protected by the Federal Confidentiality of Alcohol and Drug Abuse Patient Records regulations: The Federal rules restrict any use of the information to criminally investigate or prosecute any alcohol or drug abuse patient.[facility] HospitalIn the event this information is protected by the Federal Confidentiality of Alcohol and Drug Abuse Patient Records regulations: The Federal rules restrict any use of the information to criminally investigate or prosecute any alcohol or drug abuse patient.[facility] HospitalIn the event this information is protected by the Federal Confidentiality of Alcohol and Drug Abuse Patient Records regulations: The Federal rules restrict any use of the information to criminally investigate or prosecute any alcohol or drug abuse patient.[facility] HospitalIn the event this information is protected by the Federal Confidentiality of Alcohol and Drug Abuse Patient Records regulations: The Federal rules restrict any use of the information to criminally investigate or prosecute any alcohol or drug abuse patient.[facility] HospitalIn the event this information is protected by the Federal Confidentiality of Alcohol and Drug Abuse Patient Records regulations: The Federal rules restrict any use of the information to criminally investigate or prosecute any alcohol or drug abuse patient.[facility] HospitalIn the event this information is protected by the Federal Confidentiality of Alcohol and Drug Abuse Patient Records regulations: The Federal rules restrict any use of the information to criminally investigate or prosecute any alcohol or drug abuse patient.[facility] HospitalIn the event this information is protected by the Federal Confidentiality of Alcohol and Drug Abuse Patient Records regulations: The Federal rules restrict any use of the information to criminally investigate or prosecute any alcohol or drug abuse patient.[facility] HospitalIn the event this information is protected by the Federal Confidentiality of Alcohol and Drug Abuse Patient Records regulations: The Federal rules restrict any use of the information to criminally investigate or prosecute any alcohol or drug abuse patient.[facility] HospitalIn the event this information is protected by the Federal Confidentiality of Alcohol and Drug Abuse Patient Records regulations: The Federal rules restrict any use of the information to criminally investigate or prosecute any alcohol or drug abuse patient.[facility] HospitalIn the event this information is protected by the Federal Confidentiality of Alcohol and Drug Abuse Patient Records regulations: The Federal rules restrict any use of the information to criminally investigate or prosecute any alcohol or drug abuse patient.[facility] HospitalIn the event this information is protected by the Federal Confidentiality of Alcohol and Drug Abuse Patient Records regulations: The Federal rules restrict any use of the information to criminally investigate or prosecute any alcohol or drug abuse patient.[facility] HospitalIn the event this information is protected by the Federal Confidentiality of Alcohol and Drug Abuse Patient Records regulations: The Federal rules restrict any use of the information to criminally investigate or prosecute any alcohol or drug abuse patient.[facility] HospitalIn the event this information is protected by the Federal Confidentiality of Alcohol and Drug Abuse Patient Records regulations: The Federal rules restrict any use of the information to criminally investigate or prosecute any alcohol or drug abuse patient.[facility] HospitalIn the event this information is protected by the Federal Confidentiality of Alcohol and Drug Abuse Patient Records regulations: The Federal rules restrict any use of the information to criminally investigate or prosecute any alcohol or drug abuse patient.[facility] HospitalIn the event this information is protected by the Federal Confidentiality of Alcohol and Drug Abuse Patient Records regulations: The Federal rules restrict any use of the information to criminally investigate or prosecute any alcohol or drug abuse patient.[facility] HospitalIn the event this information is protected by the Federal Confidentiality of Alcohol and Drug Abuse Patient Records regulations: The Federal rules restrict any use of the information to criminally investigate or prosecute any alcohol or drug abuse patient.[facility] Reason for Visit (unrecogniz ed section and content) Reason Comments Consult Specialty Diagnoses / Procedures Referred By Aliya holden Referred To Contact Nephrology Diagnoses Stage 3a chronic kidney disease (HCC) Hyponatremia Procedures CONSULT TO NEPHROLOGY OFFICE/OUTPATIENT [facility] MDM 60 MINUTES Elisa Starr MD [address] [place] [address] Phone: tel: fax: Referral ID Status Reason Start Date Expiration Date V isits Requested Visits Authorized [id number] Closed PCP Requested Referral 12/27/2024 12/27/2025 1 1 Reason Comments Trigger Finger Reason Comments Last seen 03/02/20 virtual visit right in dex finger Established Patient Specialty Diagnoses / Procedures Referred By Aliya holden Referred To Contact Orthopedics Diagnoses Trigger finger, unspecified finger, unspecified laterality Procedures CONSULT TO ORTHOPAEDICS OFFICE/OUTPATIENT [facility] 60-74 MINUTES Elisa Starr MD [address] [place] [address] Referral ID Status Reason Start Date Expiration Date Visits Requested Visits Authorized [id number] Pending Review PCP Requested Referral 01/28/2022 01/28/2023 1 1 Reason Comments Results Reason Comments New Patient Neck/Arm pain Reason Comments Established Patient follow up Reason Onset Date Comments Refill Request 04/05/2022 Reason Comments Patient Update Reason Comments Blood Pressure Elevated BP x3 weeks Right ankle swelling Reason Comments Blood Pressure Check Reason Comments Blood Pressure Check Appointment Medication Update Reason Comments Rx refill; discontinued medication Reason Onset Date Comments insight enrollment 05/13/2022 telephonic ou treach Reason Onset Date Comments Population Health Navigation Outreach 05/16/2022 [employer] Reason Onset Date Comments [facility] 06/06/2022 telephonic outre ach Reason Onset Date Comments Refill Request 06/09/2022 Reason Onset Date Comments [facility] 06/14/2022 Telephonic outre ach Reason Onset Date Comments [facility] 06/15/2022 Healthy at home outreach Reason Comments Follow Up 4 months post visit right ring trigger finger with injection given - wants to discuss surgery Reason Comments Schedule Surgery Reason Comments Imaging MRI Reason Onset Date Comments Refill Request 06/28/2022 Reason Onset Date Comments Refill Request 07/02/2022 Reason Onset Date Comments [facility] 07/06/2022 Telephonic outre ach Reason Comments Medication Problem Reason Onset Date Comments [facility] 07/26/2022 Telephonic outre ach Reason Onset Date Comments [facility] 08/08/2022 Telephonic outre ach Reason Onset Date Comments [facility] 08/22/2022 Telephonic outre ach Reason Comments Appointment Reason Onset Date Comments [facility] 09/05/2022 Telephonic outre ach Reason Onset Date Comments Community Monitoring Outreach 09/19/2022 CD M Telephonic Reason Comments Nausea Vomiting x1 this AM; Headache To top of head x2 we eks Reason Onset Date Comments Community Monitoring Outreach 10/18/2022 CD M Follow Up Reason Comments F/U 6 months Reason Onset Date Comments Refill Request 10/28/2022 Reason Comments New Patient Reason Onset Date Comments Community Monitoring Outreach 11/14/2022 CD M Reason Comments Blood Pressure Follow up Reason Onset Date Comments Community Monitoring Outreach 11/28/2022 CD M Reason Onset Date Comments Community Monitoring Outreach 12/05/2022 CD M Reason Onset Date Comments Population Health Navigation Outreach 12/05/2022 [facility] CALL [facility] Reason Comments Refill Request Reason Onset Date Comments Refill Request 12/06/2022 Reason Onset Date Comments Refill Request 12/21/2022 Reason Onset Date Comments community monitoring outreach 12/26/2022 CD M monthly check in Reason Comments Follow Up Patient reports ful lness in legs and in chest, like fluid when I used to take Lasix. Patient reported funny feeling Monday night and lying on left side with fluttering and rapid HR. Patient turned onto right side and it subsided. Otherwise only c/o of chest issue when out in the cold also a funny feeling. 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 Reason Comments Cardiology Follow Up Cardiac clearance Reason Onset Date Comments [facility] 02/22/2023 Telephonic outre ach Reason Onset Date Comments Refill Request 02/06/2023 Reason Comments Zio patch findings Results Reason Onset Date Comments Refill Request 02/03/2023 Reason Comments Pain Right sided pain, reina s been going on for years that is getting worse Reason Onset Date Comments Refill Request 05/02/2023 Reason Onset Date Comments [facility] 05/18/2023 Telephonic outre ach Reason Comments Spirometry Specialty Diagnoses / Procedures Referred By Contac t Referred To Contact [facility] Diagnoses SOB (shortness of breath) Procedures SPIROMETRY WITH DILATOR IF OBSTRUCTED BRNCDILAT RSPSE SPMTRY PRE&POST-BRNCDILAT ADMN Alyx Marie MD [address] [place] [address] [facility] [facility] [address] [place] [address] Referral ID Status Reason Start Date Expiration Date V isits Requested Visits Authorized [id number] Closed Auto-Generate d Referral 06/06/2023 07/05/2024 1 1 Specialty Diagnoses / Procedures Referred By Contac t Referred To Contact [facility] Diagnoses SOB (shortness of breath) Procedures LUNG VOLUMES Alyx Marie MD [address] [place] [address] [facility] [address] [place] [address] Referral ID Status Reason Start Date Expiration Date V isits Requested Visits Authorized [id number] Closed Auto-Generate d Referral 06/06/2023 07/05/2024 1 1 Reason Comments New Patient Dyspnea Reason Onset Date Comments Refill Request 06/13/2023 Reason Comments ED Follow-up Reason Onset Date Comments Community Monitoring Outreach 06/21/2023 CD M follow up Reason Onset Date Comments Community Monitoring Outreach 06/22/2023 CD M follow up Reason Onset Date Comments Refill Request 06/26/2023 Reason Onset Date Comments Refill Request 07/14/2023 Reason Onset Date Comments CDM 07/25/2023 Check in call Reason Onset Date Comments Refill Request 07/24/2023 Reason Comments Refill Request Patient advised she needed to be seen regarding gabapentin Specialty Diagnoses / Procedures Referred By Aliya holden Referred To Contact [facility] Diagnoses Medication Procedures OFFICE CONSULTATION NEW/ESTAB PATIENT 15 MIN Elisa Starr MD [address] [place] [address] [facility] [address] [place] [address] Referral ID Status Reason Start Date Expiration Date Visits Requested Visits Authorized [id number] Pending Review OON/Self Pay Override 07/27/2023 01/23/2024 1 1 Reason Onset Date Comments CDM 08/22/2023 Telephonic outre ach Reason Comments Medication question Reason Onset Date Comments CDM 09/19/2023 Telephonic outre ach Reason Onset Date Comments Refill Request 09/27/2023 Reason Onset Date Comments Refill Request 10/11/2023 Reason Comments Orders Abdelrahman order Reason Comments Medication Request Reason Onset Date Comments CD 01/03/2024 Telephonic outre ach Reason Comments Opened In Error Reason Onset Date Comments Refill Request 02/12/2024 Reason Onset Date Comments Refill Request 02/22/2024 Reason Onset Date Comments CDM 02/27/2024 Community Monito ring Outreach Call Reason Comments finger locking up Reason Onset Date Comments Refill Request 02/29/2024 Reason Onset Date Comments Population Health Navigation Outreach 03/04/2024 H@[facility] Reason Comments Headache Trigger Finger L trigger ring finge r Reason Comments Follow Up EGD 01/03/24 Reason Onset Date Comments CDM 04/02/2024 Telephonic outre ach Reason Onset Date Comments Refill Request 04/10/2024 Reason Onset Date Comments CDM 04/17/2024 Telephonic outre ach Reason Onset Date Comments Refill Request 04/30/2024 Reason Comments Established Patient Trigger Finger Reason Onset Date Comments Refill Request 05/15/2024 Reason Onset Date Comments CD 05/16/2024 Telephonic outre ach Reason Comments Palpitations Reason Comments F/U 6 months Reason Comments Abdominal Pain Reason Comments Recheck Lightheadedness Reason Onset Date Comments Refill Request 06/28/2024 Reason Onset Date Comments CD 07/09/2024 Telephonic outre ach Reason Onset Date Comments Refill Request 07/31/2024 Reason Onset Date Comments CD 08/07/2024 Telephonic outre ach Reason Comments Follow Up 12 weeks post visit with Anju Left rin g trigger finger with injection given Reason Comments Post Op Reason Onset Date Comments Population Health Navigation Outreach 09/04/2024 [employer]/Workbench/[place] Reason Onset Date Comments Refill Request 09/05/2024 See Rx notes Reason Onset Date Comments [facility] 09/06/2024 Telephonic outre ach Reason Comments 01/03/2024 EGD [facility] Reason Comments Established Patient Post Op Reason Onset Date Comments Refill Request 09/19/2024 Reason Onset Date Comments CDM 10/08/2024 Telephonic outre ach Reason Onset Date Comments Refill Request 10/21/2024 Reason Onset Date Comments Refill Request 10/29/2024 Reason Comments Established Patient Reason Onset Date Comments Refill Request 11/29/2024 Reason Comments Medication Question inSight Community Ou treach Reason Onset Date Comments Population Health Navigation Outreach 12/18/2024 [employer] High Risk Attempt #1 Reason Comments Follow Up 6 month Reason Onset Date Comments Results 12/30/2024 Reason Comments Abdominal Pain Lower abdominal pain and increased urination at night. Lower back pain as well. Reason Onset Date Comments Refill Request 01/06/[address] Specialty Diagnoses / Procedures Referred By Contac t Referred To Contact [facility] Diagnoses Periumbilical abdominal pain LLQ pain Procedures CT ABD/PEL W IVCON CT ABD & PELVIS W/CONTRAST Podlogar, LUIS MIGUEL Johnson.CASH ACCOUNTING CLERK [address] [place] [address] Phone: tel: fax: [place] [phone] Referral ID Status Reason Start Date Expiration Date V isits Requested Visits Authorized [id number] Closed Auto-Generate d Referral 01/21/2025 03/22/2025 2 2 Reason Onset Date Comments Refill Request 02/03/2025 Reason Comments Headache neck pain right shoulder/elbow pain Reason Comments Pain Head, neck and right arm radiating to elbow x7 days Reason Comments Consult Nocturia Specialty Diagnoses / Procedures Referred By Contac t Referred To Contact Urology Diagnoses Nocturia Procedures CONSULT TO UROLOGY OFFICE/OUTPATIENT [facility] 60 MINUTES Elisa Starr MD [address] [place] [address] Phone: tel: fax: Referral ID Status Reason Start Date Expiration Date V isits Requested Visits Authorized [id number] Closed PCP Requested Referral 12/27/2024 12/27/2025 1 1 Reason Comments Patient Update Reason Onset Date Comments Results 03/12/2025 Reason Comments Back Pain Back pain and right shoulder pain Specialty Diagnoses / Procedures Referred By Contac t Referred To Contact [facility] [place] Diagnoses Cervical spine pain Procedures CONSULT TO [facility] OFFICE/OUTPATIENT [facility] 60 MINUTES PodlogElizabeth chung APRN.CASH ACCOUNTING CLERK [address] [place] [address] Phone: tel: fax: Referral ID Status Reason Start Date Expiration Date V isits Requested Visits Authorized [id number] Closed PCP Requested Referral 03/03/2025 03/03/2026 1 1 Reason Onset Date Comments Population Health Navigation Outreach 04/03/2025 [employer] Workbench Nati Reason Onset Date Comments Refill Request 04/29/2025 Reason Onset Date Comments Refill Request 05/21/2025 Reason Onset Date Comments Population Health Navigation Outreach 06/26/2025 [employer] [facility] sprint list Reason Comments 6 Month Exam Reason Onset Date Comments Results 07/08/2025 Care Teams (unrecognized sec tion and content) Assembly Line Inspector Relationship Specialty Start Date End Date Elisa Starr MD [address] [place] [address] PCP - General Family Practice 03/22/21 Dr. Merritt 07/23/19 Assembly Line Inspector Relationship Specialty Start Date End Date Elisa Starr MD [address] [place] [address] PCP - General Family Practice 03/22/21 Dr. Merritt 07/23/19 Assembly Line Inspector Relationship Specialty Start Date End Date Elisa Starr MD [address] [place] [address] PCP - General Family Practice 03/22/21 Dr. Merritt 07/23/19 Assembly Line Inspector Relationship Specialty Start Date End Date Elisa Starr MD [address] [place] [address] PCP - General Family Practice 03/22/21 Dr. Merritt 07/23/19 Assembly Line Inspector Relationship Specialty Start Date End Date Elisa Starr MD [address] [place] [address] PCP - General Family Practice 03/22/21 Dr. Merritt 07/23/19 Assembly Line Inspector Relationship Specialty Start Date End Date Elisa Starr MD [address] [place] [address] PCP - General Family Practice 03/22/21 Dr. Merritt 07/23/19 Assembly Line Inspector Relationship Specialty Start Date End Date Elisa Starr MD [address] [place] [address] PCP - General Family Practice 03/22/21 Dr. Merritt 07/23/19 Assembly Line Inspector Relationship Specialty Start Date End Date Elisa Starr MD [address] [place] [address] PCP - General Family Practice 03/22/21 Dr. Merritt 07/23/19 Assembly Line Inspector Relationship Specialty Start Date End Date Elisa Starr MD [address] [place] [address] PCP - General Family Practice 03/22/21 Dr. Merritt 07/23/19 Assembly Line Inspector Relationship Specialty Start Date End Date Elisa Starr MD [address] [place] [address] PCP - General Family Practice 03/22/21 Dr. Merritt 07/23/19 Assembly Line Inspector Relationship Specialty Start Date End Date Elisa Starr MD [address] [place] [address] PCP - General Family Practice 03/22/21 Dr. Merritt 07/23/19 Assembly Line Inspector Relationship Specialty Start Date End Date Elisa Starr MD [address] [place] [address] PCP - General Family Practice 03/22/21 Dr. Merritt 07/23/19 Assembly Line Inspector Relationship Specialty Start Date End Date Elisa Starr MD [address] [place] [address] PCP - General Family Practice 03/22/21 Dr. Merritt 07/23/19 Assembly Line Inspector Relationship Specialty Start Date End Date Elisa Starr MD [address] [place] [address] PCP - General Family Practice 03/22/21 Dr. Merritt 07/23/19 Assembly Line Inspector Relationship Specialty Start Date End Date Elisa Starr MD [address] [place] [address] PCP - General Family Practice 03/22/21 Tonia Naik, RN [facility] [address] [place] [address] Product Sales Engineer 05/13/22 Dr. Merritt 07/23/19 Assembly Line Inspector Relationship Specialty Start Date End Date Elisa Starr MD [address] [place] [address] PCP - General Family Practice 03/22/21 Tonia Naik, RN [facility] [address] [place] [address] Product Sales Engineer 05/13/22 Dr. Merritt 07/23/19 Assembly Line Inspector Relationship Specialty Start Date End Date Elisa Starr MD [address] [place] [address] PCP - General Family Practice 03/22/21 Tonia Naik, RN [facility] [address] [place] [address] Product Sales Engineer 05/13/22 Dr. Merritt 07/23/19 Assembly Line Inspector Relationship Specialty Start Date End Date Elisa Starr MD [address] [place] [address] PCP - General Family Practice 03/22/21 Tonia Naik, RN [facility] [address] [place] [address] Product Sales Engineer 05/13/22 Dr. Merritt 07/23/19 Assembly Line Inspector Relationship Specialty Start Date End Date Elisa Starr MD [address] [place] [address] PCP - General Family Practice 03/22/21 Tonia Naik, RN [facility] [address] [place] [address] Product Sales Engineer 05/13/22 Dr. Merritt 07/23/19 Assembly Line Inspector Relationship Specialty Start Date End Date Elisa Starr MD [address] [place] [address] PCP - General Family Practice 03/22/21 Tonia Naik, LOLI [facility] [address] [place] [address] Product Sales Engineer 05/13/22 Dr. Merritt 07/23/19 Assembly Line Inspector Relationship Specialty Start Date End Date Elisa Starr MD [address] [place] [address] PCP - General Family Practice 03/22/21 Tonia Naik RN [facility] [address] [place] [id number] Product Sales Engineer 05/13/22 Dr. Merritt 07/23/19 Assembly Line Inspector Relationship Specialty Start Date End Date Elisa Starr MD [address] [place] [address] PCP - General Family Practice 03/22/21 Tonia Naik, LOLI [facility] [address] [place] [address] Product Sales Engineer 05/13/22 Dr. Merritt 07/23/19 Assembly Line Inspector Relationship Specialty Start Date End Date Elisa Starr MD [address] [place] [address] PCP - General Family Medicine 03/22/21 Tonia Naik RN [facility] [address] [place] [address] Product Sales Engineer 05/13/22 Dr. Merritt 07/23/19 Assembly Line Inspector Relationship Specialty Start Date End Date Elisa Starr MD [address] [place] [address] PCP - General Family Medicine 03/22/21 Tonia Naik, RN [facility] [address] [place] [address] Product Sales Engineer 05/13/22 Dr. Merritt 07/23/19 Assembly Line Inspector Relationship Specialty Start Date End Date Elisa Starr MD [address] [place] [address] PCP - General Family Medicine 03/22/21 Tonia Naik, RN [facility] [address] [place] [address] Product Sales Engineer 05/13/22 Dr. Merritt 07/23/19 Assembly Line Inspector Relationship Specialty Start Date End Date Elisa Starr MD [address] [place] [address] PCP - General Family Medicine 03/22/21 Tonia Naik, RN [facility] [address] [place] [address] Product Sales Engineer 05/13/22 Dr. Merritt 07/23/19 Assembly Line Inspector Relationship Specialty Start Date End Date Elisa Starr MD [address] [place] [address] PCP - General Family Medicine 03/22/21 Tonia Naik, RN [facility] [address] [place] [address] Product Sales Engineer 05/13/22 Dr. Merritt 07/23/19 Assembly Line Inspector Relationship Specialty Start Date End Date Elisa Starr MD [address] [place] [address] PCP - General Family Medicine 03/22/21 Tonia Naik, RN [facility] [address] [place] [address] Product Sales Engineer 05/13/22 Dr. Merritt 07/23/19 Assembly Line Inspector Relationship Specialty Start Date End Date Elisa Starr MD [address] [place] [address] PCP - General Family Medicine 03/22/21 Beatriz Ferrer, RN [address] [place] [address] Product Sales Engineer 05/13/22 Dr. Merritt 07/23/19 Assembly Line Inspector Relationship Specialty Start Date End Date Elisa Starr MD [address] [place] [address] PCP - General Family Medicine 03/22/21 Beatriz Ferrer, RN [address] [place] [address] Product Sales Engineer 05/13/22 Dr. Merritt 07/23/19 Assembly Line Inspector Relationship Specialty Start Date End Date Elisa Starr MD [address] [place] [address] PCP - General Family Medicine 03/22/21 Beatriz Ferrer, RN [address] [place] [address] Product Sales Engineer 05/13/22 Dr. Merritt 07/23/19 Assembly Line Inspector Relationship Specialty Start Date End Date Elisa Starr MD [address] [place] [address] PCP - General Family Medicine 03/22/21 Beatriz Ferrer, RN [address] [place] [address] Product Sales Engineer 09/04/22 Dr. Merritt 07/23/19 Assembly Line Inspector Relationship Specialty Start Date End Date Elisa Starr MD [address] [place] [address] PCP - General Family Medicine 03/22/21 Beatriz Ferrer, RN [address] [place] [address] Product Sales Engineer 09/04/22 Dr. Merritt 07/23/19 Assembly Line Inspector Relationship Specialty Start Date End Date Elisa Starr MD [address] [place] [address] PCP - General Family Medicine 03/22/21 Beatriz Ferrer, RN [address] [place] [address] Product Sales Engineer 09/04/22 Dr. Merritt 07/23/19 Assembly Line Inspector Relationship Specialty Start Date End Date Elisa Starr MD [address] [place] [address] PCP - General Family Medicine 03/22/21 Beatriz Ferrer, RN [address] [place] [address] Product Sales Engineer 09/04/22 Dr. Merritt 07/23/19 Assembly Line Inspector Relationship Specialty Start Date End Date Elisa Starr MD [address] [place] [address] PCP - General Family Medicine 03/22/21 Beatriz Ferrer, RN [address] [place] [address] Product Sales Engineer 09/04/22 Dr. Merritt 07/23/19 Assembly Line Inspector Relationship Specialty Start Date End Date Elisa Starr MD [address] [place] [address] PCP - General Family Medicine 03/22/21 Beatriz Ferrer, RN [address] [place] [id number] Product Sales Engineer 09/04/22 Dr. Merritt 07/23/19 Assembly Line Inspector Relationship Specialty Start Date End Date Elisa Starr MD [address] [place] [address] PCP - General Family Medicine 03/22/21 Sharifa Stewart, operator assistant i cementingProduct Sales Engineer 12/08/22 Dr. Merritt 07/23/19 Assembly Line Inspector Relationship Specialty Start Date End Date Elisa Starr MD [address] [place] [address] PCP - General Family Medicine 03/22/21 Sharifa Stewart, operator assistant i cementingProduct Sales Engineer 12/08/22 Dr. Merritt 07/23/19 Assembly Line Inspector Relationship Specialty Start Date End Date Elisa Starr MD [address] [place] [address] PCP - General Family Medicine 03/22/21 Sharifa Stewart, operator assistant i cementingProduct Sales Engineer 12/08/22 Dr. Merritt 07/23/19 Assembly Line Inspector Relationship Specialty Start Date End Date Elisa Starr MD [address] [place] [address] PCP - General Family Medicine 03/22/21 Sharifa Stewart, operator assistant i cementingProduct Sales Engineer 12/08/22 Dr. Merritt 07/23/19 Assembly Line Inspector Relationship Specialty Start Date End Date Elisa Starr MD [address] [place] [address] PCP - General Family Medicine 03/22/21 Tonia Naik, RN [place] [address] [facility] [place] [address] Product Sales Engineer 05/13/22 Beatriz Ferrer, RN [address] [place] [address] Product Sales Engineer 09/04/2212/07 Sharifa Stewart, operator assistant i cementingProduct Sales Engineer 12/08/22 Dr. Merritt 07/23/19 Team Status: Active Member Role Status Dates Dr. rEma Parker III, MD Family Provider Active Dr. Evangelist Starr MD Primary Care Provider Acti ve Team Status: Inactive Member Role Status Dates Dr. Evangelist Starr MD Primary Care Provider Acti ve Dr. Mino Morin DO Emergency Provider Active Assembly Line Inspector Relationship Specialty Start Date End Date Elisa Starr MD [address] [place] [address] PCP - General Family Medicine 03/22/21 Sharifa Stewart, operator assistant i cementingProduct Sales Engineer 12/08/22 Dr. Merritt 07/23/19 Assembly Line Inspector Relationship Specialty Start Date End Date Elisa Starr MD [address] [place] [address] PCP - General Family Medicine 03/22/21 Sharifa Stewart, operator assistant i cementingProduct Sales Engineer 12/08/22 Dr. Merritt 07/23/19 Assembly Line Inspector Relationship Specialty Start Date End Date Elisa Starr MD [address] [place] [address] PCP - General Family Medicine 03/22/21 Sharifa Stewart, operator assistant i cementingProduct Sales Engineer 12/08/22 Dr. Merritt 07/23/19 Assembly Line Inspector Relationship Specialty Start Date End Date Elisa Starr MD [address] [place] [address] PCP - General Family Medicine 03/22/21 Sharifa Stewart, operator assistant i cementingProduct Sales Engineer 12/08/22 Dr. Merritt 07/23/19 Assembly Line Inspector Relationship Specialty Start Date End Date Elisa Starr MD [address] [place] [address] PCP - General Family Medicine 03/22/21 Sharifa Stewart, operator assistant i cementingProduct Sales Engineer 12/08/22 Dr. Merritt 07/23/19 Assembly Line Inspector Relationship Specialty Start Date End Date Elisa Starr MD [address] [place] [address] PCP - General Family Medicine 03/22/21 Sharifa Stewart, operator assistant i cementingProduct Sales Engineer 12/08/22 Dr. Merritt 07/23/19 Assembly Line Inspector Relationship Specialty Start Date End Date Elisa Starr MD [address] [place] [address] PCP - General Family Medicine 03/22/21 Sharifa Stewart, operator assistant i cementingProduct Sales Engineer 12/08/22 Dr. Merritt 07/23/19 Assembly Line Inspector Relationship Specialty Start Date End Date Elisa Starr MD [address] [place] [address] PCP - General Family Medicine 03/22/21 Sharifa Stewart, operator assistant i cementingProduct Sales Engineer 12/08/22 Dr. Merritt 07/23/19 Assembly Line Inspector Relationship Specialty Start Date End Date Elisa Starr MD [address] [place] [address] PCP - General Family Medicine 03/22/21 Sharifa Stewart, operator assistant i cementingProduct Sales Engineer 12/08/22 Dr. Merritt 07/23/19 Assembly Line Inspector Relationship Specialty Start Date End Date Elisa Starr MD [address] [place] [address] PCP - General Family Medicine 03/22/21 Sharifa Stewart, operator assistant i cementingProduct Sales Engineer 12/08/22 Dr. Merritt 07/23/19 Assembly Line Inspector Relationship Specialty Start Date End Date Elisa Starr MD [address] [place] [address] PCP - General Family Medicine 03/22/21 Sharifa Stewart, operator assistant i cementingProduct Sales Engineer 12/08/22 Dr. Merritt 07/23/19 Assembly Line Inspector Relationship Specialty Start Date End Date Elisa Starr MD [address] [place] [address] PCP - General Family Medicine 03/22/21 Sharifa Stewart, operator assistant i cementingProduct Sales Engineer 12/08/22 Dr. Merritt 07/23/19 Assembly Line Inspector Relationship Specialty Start Date End Date Elisa Starr MD [address] [place] [address] PCP - General Family Medicine 03/22/21 Sharifa Stewart, operator assistant i cementingProduct Sales Engineer 12/08/22 Dr. Merritt 07/23/19 Assembly Line Inspector Relationship Specialty Start Date End Date Elisa Starr MD [address] [place] [address] PCP - General Family Medicine 03/22/21 Sharifa Stewart, operator assistant i cementingProduct Sales Engineer 12/08/22 Dr. Merritt 07/23/19 Assembly Line Inspector Relationship Specialty Start Date End Date Elisa Starr MD [address] [place] [address] PCP - General Family Medicine 03/22/21 Sharifa Stewart, operator assistant i cementingProduct Sales Engineer 12/08/22 Dr. Merritt 07/23/19 Assembly Line Inspector Relationship Specialty Start Date End Date Elisa Starr MD [address] [place] [address] PCP - General Family Medicine 03/22/21 Sharifa Stewart, operator assistant i cementingProduct Sales Engineer 12/08/22 Dr. Merritt 07/23/19 Assembly Line Inspector Relationship Specialty Start Date End Date Elisa Starr MD [address] [place] [address] PCP - General Family Medicine 03/22/21 Sharifa Stewart, operator assistant i cementingProduct Sales Engineer 12/08/22 Dr. Merritt 07/23/19 Assembly Line Inspector Relationship Specialty Start Date End Date Elisa Starr MD [address] [place] [address] PCP - General Family Medicine 03/22/21 Sharifa Stewart, operator assistant i cementingProduct Sales Engineer 12/08/22 Dr. Merritt 07/23/19 Assembly Line Inspector Relationship Specialty Start Date End Date Elisa Starr MD [address] [place] [address] PCP - General Family Medicine 03/22/21 Sharifa Stewart, operator assistant i cementingProduct Sales Engineer 12/08/22 Dr. Merritt 07/23/19 Assembly Line Inspector Relationship Specialty Start Date End Date Elisa Starr MD [address] [place] [address] PCP - General Family Medicine 03/22/21 Sharifa Stewart, operator assistant i cementingProduct Sales Engineer 12/08/22 Dr. Merritt 07/23/19 Assembly Line Inspector Relationship Specialty Start Date End Date Elisa Starr MD [address] [place] [address] PCP - General Family Medicine 03/22/21 Sharifa Stewart, operator assistant i cementingProduct Sales Engineer 12/08/22 Dr. Merritt 07/23/19 Assembly Line Inspector Relationship Specialty Start Date End Date Elisa Starr MD [address] [place] [address] PCP - General Family Medicine 03/22/21 Sharifa Stewart, operator assistant i cementingProduct Sales Engineer 12/08/22 Dr. Merritt 07/23/19 Assembly Line Inspector Relationship Specialty Start Date End Date Elisa Starr MD [address] [place] [address] PCP - General Family Medicine 03/22/21 Sharifa Stewart, operator assistant i cementingProduct Sales Engineer 12/08/22 Dr. Merritt 07/23/19 Assembly Line Inspector Relationship Specialty Start Date End Date Elisa Starr MD [address] [place] [address] PCP - General Family Medicine 03/22/21 Sharifa Stewart, operator assistant i cementingProduct Sales Engineer 12/08/22 Dr. Merritt 07/23/19 Assembly Line Inspector Relationship Specialty Start Date End Date Elisa Starr MD [address] [place] [address] PCP - General Family Medicine 03/22/21 Sharifa Stewart, operator assistant i cementingProduct Sales Engineer 12/08/22 Dr. Merritt 07/23/19 Assembly Line Inspector Relationship Specialty Start Date End Date Elisa tSarr MD [address] [place] [address] PCP - General Family Medicine 03/22/21 Sharifa Stewart, operator assistant i cementingProduct Sales Engineer 12/08/22 Dr. Merritt 07/23/19 Assembly Line Inspector Relationship Specialty Start Date End Date Elisa Starr MD [address] [place] [address] PCP - General Family Medicine 03/22/21 Sharifa Stewart, operator assistant i cementingProduct Sales Engineer 12/08/22 Dr. Merritt 07/23/19 Assembly Line Inspector Relationship Specialty Start Date End Date Elisa Starr MD [address] [place] [address] PCP - General Family Medicine 03/22/21 Sharifa Stewart, operator assistant i cementingProduct Sales Engineer 12/08/22 Dr. Merritt 07/23/19 Assembly Line Inspector Relationship Specialty Start Date End Date Elisa Starr MD [address] [place] [address] PCP - General Family Medicine 03/22/21 Sharifa Stewart, operator assistant i cementingProduct Sales Engineer 12/08/22 Dr. Merritt 07/23/19 Assembly Line Inspector Relationship Specialty Start Date End Date Elisa Starr MD [address] [place] [address] PCP - General Family Medicine 03/22/21 Sharifa Stewart, operator assistant i cementingProduct Sales Engineer 12/08/22 Dr. Merritt 07/23/19 Assembly Line Inspector Relationship Specialty Start Date End Date Elisa Starr MD [address] [place] [address] PCP - General Family Medicine 03/22/21 Sharifa Stewart, operator assistant i cementingProduct Sales Engineer 12/08/22 Dr. Merritt 07/23/19 Assembly Line Inspector Relationship Specialty Start Date End Date Elisa Starr MD [address] [place] [address] PCP - General Family Medicine 03/22/21 Sharifa Stewart, operator assistant i cementingProduct Sales Engineer 12/08/22 Dr. Merritt 07/23/19 Assembly Line Inspector Relationship Specialty Start Date End Date Elisa Starr MD [address] [place] [address] PCP - General Family Medicine 03/22/21 Sharifa Stewart, operator assistant i cementingProduct Sales Engineer 12/08/22 Dr. Merritt 07/23/19 Assembly Line Inspector Relationship Specialty Start Date End Date Elisa Starr MD [address] [place] [address] PCP - General Family Medicine 03/22/21 Sharifa Stewart, operator assistant i cementingProduct Sales Engineer 12/08/22 Dr. Merritt 07/23/19 Assembly Line Inspector Relationship Specialty Start Date End Date Elisa Starr MD [address] [place] [address] PCP - General Family Medicine 03/22/21 Sharifa Stewart, operator assistant i cementingProduct Sales Engineer 12/08/22 Dr. Merritt 07/23/19 Assembly Line Inspector Relationship Specialty Start Date End Date Elisa Starr MD [address] [place] [address] PCP - General Family Medicine 03/22/21 Sharifa Stewart, operator assistant i cementingProduct Sales Engineer 12/08/22 Dr. Merritt 07/23/19 Assembly Line Inspector Relationship Specialty Start Date End Date Elisa Starr MD [address] [place] [address] PCP - General Family Medicine 03/22/21 Sharifa Stewart, operator assistant i cementingProduct Sales Engineer 12/08/22 Dr. Merritt 07/23/19 Assembly Line Inspector Relationship Specialty Start Date End Date Elisa Starr MD [address] [place] [address] PCP - General Family Medicine 03/22/21 Sharifa Stewart, operator assistant i cementingProduct Sales Engineer 12/08/22 Dr. Merritt 07/23/19 Assembly Line Inspector Relationship Specialty Start Date End Date Elisa Starr MD [address] [place] [address] PCP - General Family Medicine 03/22/21 Sharifa Stewart, operator assistant i cementingProduct Sales Engineer 12/08/22 Dr. Merritt 07/23/19 Assembly Line Inspector Relationship Specialty Start Date End Date Elisa Starr MD [address] [place] [address] PCP - General Family Medicine 03/22/21 Sharifa Stewart, operator assistant i cementingProduct Sales Engineer 12/08/22 Dr. Merritt 07/23/19 Assembly Line Inspector Relationship Specialty Start Date End Date Elisa Starr MD [address] [place] [address] PCP - General Family Medicine 03/22/21 Sharifa Stewart, operator assistant i cementingProduct Sales Engineer 12/08/22 Dr. Merritt 07/23/19 Assembly Line Inspector Relationship Specialty Start Date End Date Elisa Starr MD [address] [place] [address] PCP - General Family Medicine 03/22/21 Dr. Merritt 07/23/19 Assembly Line Inspector Relationship Specialty Start Date End Date Elisa Starr MD [address] [place] [address] PCP - General Family Medicine 03/22/21 Sharifa Stewart, operator assistant i cementingProduct Sales Engineer 12/08/22 Dr. Merritt 07/23/19 Assembly Line Inspector Relationship Specialty Start Date End Date Elisa Starr MD [address] [place] [address] PCP - General Family Medicine 03/22/21 Sharifa Stewart, operator assistant i cementingProduct Sales Engineer 12/08/22 Dr. Merritt 07/23/19 Assembly Line Inspector Relationship Specialty Start Date End Date Elisa Starr MD [address] [place] [address] PCP - General Family Medicine 03/22/21 Sharifa Stewart, operator assistant i cementingProduct Sales Engineer 12/08/22 Dr. Merritt 07/23/19 Assembly Line Inspector Relationship Specialty Start Date End Date Elisa Starr MD [address] [place] [address] PCP - General Family Medicine 03/22/21 Sharifa Stewart, operator assistant i cementingProduct Sales Engineer 12/08/22 Dr. Merritt 07/23/19 Assembly Line Inspector Relationship Specialty Start Date End Date Elisa Starr MD [address] [place] [address] PCP - General Family Medicine 03/22/21 Sharifa Stewart, operator assistant i cementingProduct Sales Engineer 12/08/22 Dr. Merritt 07/23/19 Assembly Line Inspector Relationship Specialty Start Date End Date Elias Starr MD [address] [place] [address] PCP - General Family Medicine 03/22/21 Sharifa Stewart, operator assistant i cementingProduct Sales Engineer 12/08/22 Dr. Merritt 07/23/19 Assembly Line Inspector Relationship Specialty Start Date End Date Elisa Starr MD [address] [place] [address] PCP - General Family Medicine 03/22/21 Sharifa Stewart, operator assistant i cementingProduct Sales Engineer 12/08/22 Dr. Merritt 07/23/19 Assembly Line Inspector Relationship Specialty Start Date End Date Elisa Starr MD [address] [place] [address] PCP - General Family Medicine 03/22/21 Sharifa Stewart, operator assistant i cementingProduct Sales Engineer 12/08/22 Dr. Merritt 07/23/19 Assembly Line Inspector Relationship Specialty Start Date End Date Elisa Starr MD [address] [place] [address] PCP - General Family Medicine 03/22/21 Sharifa Stewart, operator assistant i cementingProduct Sales Engineer 12/08/22 Elizabeth Og APRN.CASH ACCOUNTING CLERK [address] [place] [address] Exposure Machine Operator Family Medicine 10/12/24 Dr. Merritt 07/23/19 Assembly Line Inspector Relationship Specialty Start Date End Date Elisa Starr MD [address] [place] [address] PCP - General Family Medicine 03/22/21 Sharifa Stewart, operator assistant i cementingProduct Sales Engineer 12/08/22 Elizabeth Og APRN.CASH ACCOUNTING CLERK [address] [place] [address] Exposure Machine Operator Family Medicine 10/12/24 Dr. Merritt 07/23/19 Assembly Line Inspector Relationship Specialty Start Date End Date Elisa Starr MD [address] [place] [address] PCP - General Family Medicine 03/22/21 Sharifa Stewart, operator assistant i cementingProduct Sales Engineer 12/08/22 Elizabeth Og, BOWLING BALL ASSEMBLER.CASH ACCOUNTING CLERK [address] [place] [address] Exposure Machine Operator Family Medicine 10/12/24 Dr. Merritt 07/23/19 Assembly Line Inspector Relationship Specialty Start Date End Date Elisa Starr MD [address] [place] [address] PCP - General Family Medicine 03/22/21 Podlogar, Elizabeth BOWLING BALL ASSEMBLER.CASH ACCOUNTING CLERK [address] [place] [address] Exposure Machine Operator Family Medicine 10/12/24 Dr. Merritt 07/23/19 Assembly Line Inspector Relationship Specialty Start Date End Date Elisa Starr MD [address] [place] [address] PCP - General Family Medicine 03/22/21 Podlogar, Elizabeth BOWLING BALL ASSEMBLER.CASH ACCOUNTING CLERK [address] [place] [address] Exposure Machine Operator Family Medicine 10/12/24 Dr. Merritt 07/23/19 Assembly Line Inspector Relationship Specialty Start Date End Date Elisa Starr MD [address] [place] [address] PCP - General Family Medicine 03/22/21 Podlogar, Elizabeth BOWLING BALL ASSEMBLER.CASH ACCOUNTING CLERK [address] [place] [address] Exposure Machine Operator Family Medicine 10/12/24 Dr. Merritt 07/23/19 Assembly Line Inspector Relationship Specialty Start Date End Date Elisa Starr MD [address] [place] [address] PCP - General Family Medicine 03/22/21 Podlogar, Elizabeth, BOWLING BALL ASSEMBLER.CASH ACCOUNTING CLERK [address] [place] [address] Exposure Machine Operator Family Medicine 10/12/24 Dr. Merritt 07/23/19 Assembly Line Inspector Relationship Specialty Start Date End Date Elisa Starr MD [address] [place] [address] PCP - General Family Medicine 03/22/21 Podlogar, LUIS MIGUEL Johnson.CASH ACCOUNTING CLERK [address] [place] [address] Exposure Machine Operator Family Medicine 10/12/24 Dr. Merritt 07/23/19 Assembly Line Inspector Relationship Specialty Start Date End Date Elisa Starr MD [address] [place] [address] PCP - General Family Medicine 03/22/21 PodlogarElizabeth APRN.CASH ACCOUNTING CLERK [address] [place] [address] Exposure Machine Operator Family Medicine 10/12/24 Dr. Merritt 07/23/19 Assembly Line Inspector Relationship Specialty Start Date End Date Elisa Starr MD [address] [place] [address] PCP - General Family Medicine 03/22/21 PodlogarElizabeth APRN.CASH ACCOUNTING CLERK [address] [place] [address] Exposure Machine Operator Family Medicine 10/12/24 Dr. Merritt 07/23/19 Assembly Line Inspector Relationship Specialty Start Date End Date Elisa Starr MD [address] [place] [address] PCP - General Family Medicine 03/22/21 PodlogarElizabeth APRN.CASH ACCOUNTING CLERK [address] [place] [address] Exposure Machine Operator Family Medicine 10/12/24 Dr. Merritt 07/23/19 Assembly Line Inspector Relationship Specialty Start Date End Date Elisa Starr MD [address] [place] [address] PCP - General Family Medicine 03/22/21 PodlogarElizabeth APRN.CASH ACCOUNTING CLERK [address] [place] [address] Exposure Machine Operator Family Medicine 10/12/24 Dr. Merritt 07/23/19 Assembly Line Inspector Relationship Specialty Start Date End Date Elisa Starr MD [address] [place] [address] PCP - General Family Medicine 03/22/21 PodlogarElizabeth APRN.CASH ACCOUNTING CLERK [address] [place] [address] Exposure Machine Operator Family Medicine 10/12/24 Cortez Leon APRN.CASH ACCOUNTING CLERK [address] [facility] [place] [address] Exposure Machine Operator Family Medicine 01/17/25 Dr. Merritt 07/23/19 Assembly Line Inspector Relationship Specialty Start Date End Date Elisa Starr MD [address] [place] [address] PCP - General Family Medicine 03/22/21 PodlogarElizabeth APRN.CASH ACCOUNTING CLERK [address] [place] [address] Exposure Machine Operator Family Medicine 10/12/24 Cortez Leon APRN.CASH ACCOUNTING CLERK [address] [facility] [place] [address] Exposure Machine Operator Family Medicine 01/17/25 Dr. Merritt 07/23/19 Assembly Line Inspector Relationship Specialty Start Date End Date Elisa Starr MD [address] [place] [address] PCP - General Family Medicine 03/22/21 PodlogarElizabeth APRN.CASH ACCOUNTING CLERK [address] [place] [address] Exposure Machine Operator Family Medicine 10/12/24 Cortez Leon APRN.CASH ACCOUNTING CLERK [address] [facility] [place] [address] Exposure Machine Operator Family Medicine 01/27/25 Dr. Merritt 07/23/19 Assembly Line Inspector Relationship Specialty Start Date End Date Elisa Starr MD [address] [place] [address] PCP - General Family Medicine 03/22/21 PodlogarElizabeth BOWLING BALL ASSEMBLER.CASH ACCOUNTING CLERK [address] [place] [address] Exposure Machine Operator Family Medicine 10/12/24 Cortez Leon APRN.CASH ACCOUNTING CLERK [address] [facility] [place] [address] Exposure Machine Operator Family Medicine 01/27/25 Dr. Merritt 07/23/19 Assembly Line Inspector Relationship Specialty Start Date End Date Elisa Starr MD [address] [place] [address] PCP - General Family Medicine 03/22/21 PodlogarElizabeth BOWLING BALL ASSEMBLER.CASH ACCOUNTING CLERK [address] [place] [address] Exposure Machine Operator Family Medicine 10/12/24 Cortez Leon BOWLING BALL ASSEMBLER.CASH ACCOUNTING CLERK [address] [place] [address] [facility] Medicine 01/27/25 Dr. Merritt 07/23/19 Assembly Line Inspector Relationship Specialty Start Date End Date Elisa Starr MD [address] [place] [address] PCP - General Family Medicine 03/22/21 Podlogar, Elizabeth, BOWLING BALL ASSEMBLER.CASH ACCOUNTING CLERK [address] [place] [address] Exposure Machine Operator Family Medicine 10/12/24 Cortez Leon, BOWLING BALL ASSEMBLER.CASH ACCOUNTING CLERK [address] [place] [address] [facility] Family Medicine 01/27/25 Dr. Merritt 07/23/19 Assembly Line Inspector Relationship Specialty Start Date End Date Elisa Starr MD [address] [place] [address] PCP - General Family Medicine 03/22/21 Podlogar, Elizabeth BOWLING BALL ASSEMBLER.CASH ACCOUNTING CLERK [address] [place], [place] [id number] Exposure Machine Operator Family Medicine 10/12/24 Cortez Leon APRN.CASH ACCOUNTING CLERK [address] [place] [address] Exposure Machine Operator Family Medicine 01/17/25 01/26/25 Cortez Leon APRN.CASH ACCOUNTING CLERK [address] [place] [address] [facility] Family Medicine 01/27/25 Dr. Merritt 07/23/19 Assembly Line Inspector Relationship Specialty Start Date End Date Elisa Starr MD [address] [place] [address] PCP - General Family Medicine 03/22/21 PodlogarElizabeth APRN.CASH ACCOUNTING CLERK [facility] [place] [address] [facility] Family [facility] 10/12/24 Cortez Leon, LUIS MIGUEL.CASH ACCOUNTING CLERK [address] [place] [address] [facility] Family [facility] 01/27/25 Sheri Reddy, LOLI [address] [place] [address] Product Sales Engineer 12/02/24 Dr. Merritt 07/23/19 Assembly Line Inspector Relationship Specialty Start Date End Date Elisa Starr MD [address] [place] [address] PCP - General Family Medicine 03/22/21 PodlogarElizabeth APRN.CASH ACCOUNTING CLERK [address] [place] [address] Exposure Machine Operator Family [facility] 10/12/24 Cortez Leon APRN.CASH ACCOUNTING CLERK [address] [place] [address] [facility] 01/27/25 Sheri Reddy, RN [address] [place], [place] [id number] Product Sales Engineer 12/02/24 Dr. Merritt 07/23/19 Assembly Line Inspector Relationship Specialty Start Date End Date Elisa Starr MD [address] [place] [address] PCP - General Family Medicine 03/22/21 PodlogarElizabeth APRN.CASH ACCOUNTING CLERK [address] [place] [address] [facility] 10/12/24 Cortez Leon APRN.CASH ACCOUNTING CLERK [address] [place] [address] [facility] 01/27/25 Sheri Reddy, LOLI [address] [place], [place] [id number] Product Sales Engineer 12/02/24 Dr. Merritt 07/23/19 Assembly Line Inspector Relationship Specialty Start Date End Date Elisa Starr MD [address] [place] [address] PCP - General Family Medicine 03/22/21 PodlogarElizabeth APRN.CASH ACCOUNTING CLERK [address] [place] [address] [facility] Family Medicine 10/12/24 Cortez Leon APRN.CASH ACCOUNTING CLERK [address] [facility] [place] [address] Exposure Machine Operator Family [facility] 01/27/25 Sheri Reddy, RN [address] [place] [address] Product Sales Engineer 12/02/24 Dr. Merritt 07/23/19 Assembly Line Inspector Relationship Specialty Start Date End Date Elisa Starr MD [address] [place] [address] PCP - General Family Medicine 03/22/21 PodlogarElizabeth APRN.CASH ACCOUNTING CLERK [address] [place] [address] Exposure Machine Operator Family [facility] 10/12/24 Sheri Reddy, LOLI [address] [place], [place] [id number] Product Sales Engineer 12/02/24 Dr. Merritt 07/23/19 Assembly Line Inspector Relationship Specialty Start Date End Date Elisa Starr MD [address] [place] [address] PCP - General Family Medicine 03/22/21 PodlogarElizabeth APRN.CASH ACCOUNTING CLERK [address] [place] [address] Exposure Machine Operator [facility] 10/12/24 Sheri Reddy, LOLI [address] [place], [place] [id number] Product Sales Engineer 12/02/24 Dr. Merritt 07/23/19 Assembly Line Inspector Relationship Specialty Start Date End Date Elisa Starr MD [address] [place] [address] PCP - General Family Medicine 03/22/21 Podlogar, LUIS MIGUEL Johnson.CASH ACCOUNTING CLERK [address] [place] [address] Exposure Machine Operator Family [facility] 10/12/24 Sheri Reddy, LOLI [address] [place] [address] Product Sales Engineer 12/02/24 Dr. Merritt 07/23/19 Assembly Line Inspector Relationship Specialty Start Date End Date Elisa Starr MD [address] [place] [address] PCP - General Family Medicine 03/22/21 Podlogar, Elizabeth BOWLING BALL ASSEMBLER.CASH ACCOUNTING CLERK [address] [place] [address] [facility] 10/12/24 Sheri Reddy, LOLI [address] [place] [address] Product Sales Engineer 12/02/2404/07 Cortez Leon APRN.CASH ACCOUNTING CLERK [address] [place] [address] [facility] 04/17/25 Dr. Merritt 07/23/19 Assembly Line Inspector Relationship Specialty Start Date End Date Elisa Starr MD [address] [place] [address] PCP - General Family Medicine 03/22/21 Podlogar, Elizabeth BOWLING BALL ASSEMBLER.CASH ACCOUNTING CLERK [address] [place] [address] Exposure Machine Operator Family Medicine 10/12/24 Sheri Reddy, RN [address] [place] [address] Product Sales Engineer 12/02/2404/07 Cortez Leon APRN.CASH ACCOUNTING CLERK [address] [place] [address] Exposure Machine Operator Family [facility] 04/17/25 Dr. Merritt 07/23/19 Assembly Line Inspector Relationship Specialty Start Date End Date Elisa Starr MD [address] [place] [address] PCP - General Family Medicine 03/22/21 PodlogarElizabeth APRN.CASH ACCOUNTING CLERK [address] [place] [address] Exposure Machine Operator Family Medicine 10/12/24 Cortez Leon APRN.CASH ACCOUNTING CLERK [address] [place] [address] Exposure Machine Operator Family Medicine 04/17/25 Dr. Merritt 07/23/19 Assembly Line Inspector Relationship Specialty Start Date End Date Elisa Starr MD [address] [place] [address] PCP - General Family Medicine 03/22/21 PodlogElizabeth chung APRN.CASH ACCOUNTING CLERK [address] [place] [address] Exposure Machine Operator Family Medicine 10/12/24 Cortez Leon APRN.CASH ACCOUNTING CLERK [address] [place] [address] Exposure Machine Operator Family Medicine 04/17/25 Dr. Merritt 07/23/19 Assembly Line Inspector Relationship Specialty Start Date End Date Elisa Starr MD [address] [place] [address] PCP - General Family Medicine 03/22/21 PodlogarElizabeth APRN.CASH ACCOUNTING CLERK [address] [place] [address] [facility] 10/12/24 Cortez Leon APRN.CASH ACCOUNTING CLERK [address] [place] [address] [facility] 04/17/25 Dr. Merritt 07/23/19 Assembly Line Inspector Relationship Specialty Start Date End Date Elisa Starr MD [address] [place] [address] PCP - General Family Medicine 03/22/21 PodlogarElizabeth APRN.CASH ACCOUNTING CLERK [address] [place] [address] [facility] 10/12/24 Cortez Leon, BOWLING BALL ASSEMBLER.CASH ACCOUNTING CLERK [address] [place] [address] [facility] 04/17/25 Dr. Merritt 07/23/19 Goals (unrecognized section and content) Goals may be documented in a n alternate section Inactive Administered Medications - up to 3 most recent administrations Administered Medications (un recognized section and content) Medication Order MAR Action Action Date Dose Rate Site benzocaine 20% 1 [place] (TOPEX) 1 [place], TOPICAL, DIRECTED, Starting on Mon01/03/24 at 1100, Until Mon01/03/24 at 1459, Dosing as directed for intraprocedural use only - Pharmaceutical Waste: Aerosol -, Intraprocedure Given 01/03/2024 10:46 AM EST 1 [place] diphenhydrAMINE 12.5-50 mg injection (BENADRYL) 12.5-50 mg, INTRAVENOUS, DIRECTED, Starting on Mon01/03/24 at 1100, Until Mon01/03/24 at 1459, DOSING DIRECTED BY PHYSICIAN FOR PROCEDURAL SEDATION ONLY, Intraprocedure Given 01/03/2024 10:49 AM EST 50 mg fentaNYL 50 mcg/mL 25-100 mcg injection (SUBLIMAZE) 25-100 mcg, INTRAVENOUS, DIRECTED, Starting on Mon01/03/24 at 1100, Until Mon01/03/24 at 1459, DOSING DIRECTED BY PHYSICIAN FOR PROCEDURAL SEDATION ONLY, Intraprocedure Given 01/03/2024 10:47 AM EST 50 mcg lactated ringers iv infusion 30 mL/hr, INTRAVENOUS, CONTINUOUS, Starting on Mon01/03/24 at 1030, Until Mon01/03/24 at 1105, Preprocedure New Bag/Syringe/Yara le 01/03/2024 10:25 AM EST 30 mL/hr 30 mL/hr Arm, Right midazolam (PF) 1-5 mg injection (VERSED) 1-5 mg, INTRAVENOUS, DIRECTED, Starting on Mon01/03/24 at 1100, Until Mon01/03/24 at 1459, DOSING DIRECTED BY PHYSICIAN FOR PROCEDURAL SEDATION ONLY, Intraprocedure Given 01/03/2024 10:47 AM EST 3 mg ondansetron (PF) 4 mg injection (ZOFRAN) 4 mg, INTRAVENOUS, DIRECTED, Starting on Mon01/03/24 at 1100, Until Mon01/03/24 at 1459, Dosing as directed for intraprocedural use only, Intraprocedure Given 01/03/2024 10:58 AM EST 4 mg FOR RECORDS PERTAINING TO PATIENTS WHO ARE OR HAVE BEEN ENROLLED IN A CHEMICAL DEPENDENCY/SUBSTANCEABUSE PROGRAM, SOME INFORMATION MAY BE OMITTED. This clinical summary was aggregated from multiple sources. Caution should be exercised in using it in the provision of clinical care. This summary normalizes information from multiple sources, and as a consequence, information in this document may materially change the coding, format and clinical context of patient data. In addition, data may be omitted in some cases. CLINICAL DECISIONS SHOULD BE BASED ON THE PRIMARY CLINICAL RECORDS. [facility]. provides no warranty or guarantee of the accuracy or completeness of information in this document.
[2025-07-24 23:20] LABS: Hematocrit 34.2 % (37-47); Hemoglobin 11.5 g/dL (12.0-15.0); Immature Granulocytes Count 0.040 X10^3/uL (0.0-0.0); Mean Corp Hgb Conc 33.6 g/dL (32-36); Mean Corpuscular Volume 85.1 fL (81-99); Mean Platelet Vol. 9.4 fl (6.2-12.0); NRBC Flagged by Analyzer 0 % (0-5); Platelet Count 261 K/mm3 (150-450); RBC Distribution Width CV 12.9 % (11.6-14.6); RBC Distribution Width SD 40.3 fl (35.1-43.9); Red Blood Count 4.02 M/mm3 (4.2-5.4); White Blood Count 12.0 K/mm3 (4.4-11.0)
[2025-07-24 23:29] LABS: Mucous, Urine 0 SEEN /hpf (<or=2+); Red Blood Cells-Urine 0 SEEN /hpf (0-5); Squamous Epithelial Cells - UA 0 SEEN /hpf (5-10)
--- NOTE | 2025-07-24 23:42 | RAD_ITS ---
PROCEDURE: CHEST PA AND LATERAL 07/24/2025 REASON FOR EXAM: COUGH TECHNIQUE: Procedure Code: RADCXR Modality: DX Procedure: CHEST PA AND LATERAL COMPARISON: 12/12/2023. FINDINGS: The lungs are expanded. There is no demonstrated parenchymal abnormality. There is no demonstrated pleural abnormality. Enlarged cardiac silhouette. Normal mediastinum and jackelin. Normal visualized pulmonary arteries. Atheromatous plaques of the visualized aortic arch and descending thoracic aorta. Diffuse spondylosis of the visualized thoracic spine. Normal visualized ribs, clavicles. Degenerative joint disease. There is no demonstrated abnormality of the visualized soft tissue structures of the upper abdomen. RAD/Chest PA and Lateral IMPRESSION: No evidence for acute abnormality. Reading [facility]
[2025-07-24 23:59] LABS: Ammonia 24.2 umol/L (11-51)
[2025-07-25 00:05] LABS: AST(SGOT) 19 U/L (<=31); Alanine Aminotransfer ALT/SGPT 12 U/L (<=34); Albumin, Serum 3.8 g/dL (3.4-4.8); Alkaline Phosphatase 77 U/L (35-104); Anion Gap 12 (5-15); BUN 13 mg/dL (4-19); BUN/Creat Ratio 11.1 RATIO (10-20); Bilirubin, Direct 0.17 mg/dL (0.00-0.30); Calcium,Total 8.8 mg/dL (7.6-11.0); Carbon Dioxide 20.3 mmol/L (21.0-32.0); Chloride 96 mmol/L (98-108); Estimated Creatinine Clearance 39.21 ml/min (50-250); Globulin 3.0 g/dL (2.2-4.2); Glucose 131 mg/dL (70-99); Magnesium 2.1 mg/dL (1.5-2.2); Potassium 4.3 mmol/L (3.3-5.1)
[2025-07-25 00:20] LABS: Color, Urine Yellow (Yellow); Glucose, Dipstick Normal (Normal); Ketone-Dipstick Negative (Negative); Specific Gravity, Urine 1.005 (1.002-1.030); Urine Bilirubin Dipstick Negative (Negative)
[2025-07-25 00:21] LABS: Leukocyte Esterase-Dipstick 500 /ul (Negative); Nitrite-Dipstick Negative (Negative); Occult Blood-Urine Negative /ul (Negative); Protein-Dipstick Negative (Negative)
[2025-07-25 01:00] VITALS: BP 160/76; PULSE 69; RESP 18; O2SAT 95
--- NOTE | 2025-07-25 01:30 | EX.ED.DYSGE1 ---
HPI History of Present Illness Chief Complaint: Confusion Informant: patient and family Narrative Narrative: Patient is a 75-year-old female with past medical history of hypertension hyperlipidemia and hypothyroidism. According to the patient's daughter earlier today she was confused. She states that after eating she got up and went to do the dishes even though her daughters told her that they would do them. While standing at the counter she noticed a piece of produce that was obtained today but according to the daughter the patient was adamant that it was old and rotten. According to the family the patient also did not remember that a worker had been by earlier today to fix a broken window. They state that with these bouts of confusion the patient has been complaining of myalgias and feeling overall unwell. According to the daughter the patient's had problems with her sodium and potassium values in the past and there was concern these may be low or that she could be developing infectious process and therefore was brought in for evaluation The patient and family do state that there has been a great deal of stress recently as well as the patient's brother has recently from dementia and they were making trips to and from [place] frequently and were exposed to multiple people at the hospital as well as at the . [facility] Medical History Hypothyroidism Pancreatitis Hiatal hernia Obesity Former tobacco use CKD (chronic kidney disease), stage III Hyponatremia GERD (gastroesophageal reflux disease) Diverticulitis Hyperlipidemia Essential hypertension Abdominal pain Hypokalemia Diverticulosis Home Medications ?Medication ?Instructions ?Recorded ?Last Taken ?Type aspirin 81 mg chewable tablet 81 mg PO DAILY@0800 HEALTH 01/01/14 06/13/24 History MAINTENANCE levothyroxine 88 mcg tablet 88 mcg PO DAILY HYPOTHYROIDISM 01/01/14 06/14/24 History losartan 100 mg tablet 100 mg PO DAILY BLOOD PRESSURE 01/01/14 06/14/24 History amlodipine 5 mg tablet 7.5 mg PO QHS BLOOD PRESSURE 01/25/18 06/13/24 History biotin 1 mg capsule 1 mg PO DAILY supplement 07/06/18 06/14/24 History gabapentin 300 mg capsule 300 mg PO QHS NEUROPATHY 09/04/19 06/13/24 History potassium chloride 20 mEq 40 meq PO BID 06/14/21 06/14/24 History tablet,extended release meclizine 25 mg tablet 25 mg PO TID PRN dizziness #30 tabs 12/26/21 Unknown Rx isosorbide mononitrate 30 mg 30 mg PO DAILY 01/26/23 06/14/24 History tablet,extended release 24 hr ondansetron 4 mg disintegrating 4 mg PO Q8H PRN PRN Nausea #10 tabs 12/12/23 Unknown Rx tablet blood sugar diagnostic (True 06/14/24 Unknown History Metrix Glucose Test Strip) lancets 33 gauge (TRUEplus Lancets) 06/14/24 Unknown History alendronate 70 mg tablet (Fosamax) 70 mg PO TH 07/24/25 Unknown History labetalol 200 mg tablet 200 mg PO BID 07/24/25 Unknown History pantoprazole 40 mg tablet,delayed 40 mg PO DAILY 07/24/25 Unknown History release rosuvastatin 20 mg tablet 20 mg PO QHS 07/24/25 Unknown History nitrofurantoin 100 mg PO BID 5 days #10 caps 07/25/25 Unknown Rx monohydrate/macrocrystals 100 mg capsule (Macrobid) Allergy/AdvReac Type Severity Reaction Status Date / Time hydrochlorothiazide Allergy Intermediate rash Verified 07/24/25 22:02 lisinopril AdvReac Intermediate cough Verified 07/24/25 22:02 atorvastatin (From Lipitor) AdvReac Unknown unknown Verified 07/24/25 22:02 spironolactone AdvReac Unknown unknown Verified 07/24/25 22:02 Beta-Blockers AdvReac cough Verified 07/24/25 22:02 (Beta-Adrenergic Bloc codeine AdvReac Intolerance Verified 07/24/25 22:02 perindopril (From Aceon) AdvReac rash,cough Verified 07/24/25 22:02 Family History Mother Diabetes Heart disease Hypertension CVA (cerebral vascular accident) Sister Hypertension Heart disease Brother Heart disease Hypertension Surgical History History of cholecystectomy History of right and left heart catheterization (08/16/19) Hx of esophagogastroduodenoscopy History of left heart catheterization (2015) History of colonoscopy (11/2018) Hx of repair of right rotator cuff Hx of eye surgery Hx of tubal ligation History of carpal tunnel release of both wrists Hx of cholecystectomy Social History Smoking Status: Former smoker alcohol intake: current alcohol intake frequency: holidays/special occasions only substance use type: does not use caffeine: No what type of physical activity do you participate in: none frequency: does not exercise ROS ROS ED Constitutional Constitutional ED: Denies chills or fever(s) Eyes Eyes: Denies change in vision ENT ENT ED: Denies rhinorrhea or sore throat Cardiovascular Cardiovascular: Denies chest pain Respiratory/Chest Respiratory/Chest: Denies cough or dyspnea Gastrointestinal Gastrointestinal: Denies abdominal pain, diarrhea, nausea or vomiting Genitourinary Genitourinary ED: Denies dysuria Musculoskeletal Musculoskeletal: Reports myalgias Integumentary Denies rash Neurologic Neurologic: Reports headache(s); Denies weakness Hematologic/Lymphatic Hematologic/Lymphatic: Denies easy bleeding or easy bruising EXAM Physical Exam Const Vital Signs: 07/24/25 21:57 07/24/25 22:56 07/25/25 01:00 Temperature 98.1 F Temperature Source Oral Pulse Rate 84 80 69 Respiratory Rate 16 18 18 Blood Pressure 160/75 H 137/52 H 160/76 H Blood Pressure Mean 103 80 104 Pulse Ox 97 91 95 Oxygen Delivery Method Room Air Room Air 07/25/25 01:31 Temperature 98.2 F Temperature Source Pulse Rate 67 Respiratory Rate 18 Blood Pressure 157/63 H Blood Pressure Mean 94 Pulse Ox 93 Oxygen Delivery Method Positive well nourished and well developed General Appearance ED: well developed; Negative for pallor HEENT HEENT Narrative: Normocephalic atraumatic No tongue or lip swelling no oral lesions no airway edema or compromise; no secondary findings to suggest infection in the posterior pharynx There is cobblestoning noted in the posterior pharynx consistent with sinus drainage Eyes PERRL and EOMs intact bilaterally General Eye ED: Negative for scleral icterus Neck supple Neck Narrative: No nuchal rigidity or meningeal signs Resp normal respiratory effort and clear to auscultation bilaterally Resp Narrative: Breath sounds are diminished throughout with faint rhonchi in the bilateral bases but no signs of respiratory distress Cardio regular rate and regular rhythm Rate: other Other Details: Radial and carotid pulses are equal and symmetric GI normal to inspection, nondistended, normoactive bowel sounds, non-tender, non-distended and no masses GI Narrative: No voluntary guarding or rigidity or pulsatile mass Auscultation: normoactive bowel sounds Palpation: soft Extremity normal to inspection Neuro oriented x3, CN's II-XII intact bilaterally and no sensory deficits noted Neuro Narrative: GCS 15 Cranial nerves II through XII are grossly intact without focal neurologic deficit No pronator drift no dysmetria no truncal ataxia NIH stroke scale score of 0 Sensorium / Orientation: alert Motor Exam: strength 5/5 throughout Psych mental status grossly normal Skin no rashes or lesions noted and no wounds General Skin Exam: Negative for jaundice or pallor MDM MDM MDM Narrative Medical decision making narrative: Patient arrived to the ER hypertensive otherwise with stable vitals. The family reported there was a episode of confusion earlier today as she cannot remember buying produce or having a worker fix a window but that during this time there was no focal weakness or facial droop or slurring of her speech. Therefore the event fits delirium and not stroke and there is no need for stroke alert or CT/CTA. As the patient's brother had dementia there is potential she may have it as well. It also could be delirium brought about by a potential infection such as pneumonia or UTI or thyroid disorder. She also could be dealing with potential hyponatremia or hypokalemia. Lastly patient has been a great deal of stress recently with travel to and from [place] regarding her brother and could be dealing with grief response or sleep deprivation leading to the bout of confusion. At this time she is awake alert and oriented to person place and time. She does not have any type of focal neurologic deficit and therefore do not feel there is a need for head CT or CTA. In order to check for thyroid disorder urinary tract infection or electrolyte abnormality as a potential cause I did elect to perform basic labs as well as a chest x-ray. Labs reveal sodium of 129 but chart review reveals that her baseline is 130 and therefore this is not clinically significant. Potassium is also normal at 4.3 ruling out hypokalemia as a cause. The patient's blood pressure was slightly high but she has hypertension and she is awake alert and oriented person place and time indicating she does not have hypertensive encephalopathy. Urine sample does show trace bacteria and white cells and she very well could be having mild UTI delirium that is early in the disease course especially as she has a slight white count of 12 and also reports feeling unwell. Therefore the urine will be sent for culture. I do feel at this time she is awake alert and oriented with stable vitals and no focal neurologic finding or exam finding and therefore there is no need for admission. She also has had no further bouts of altered mental status/delirium while in the ER. I feel the safest option is to place her on antibiotic to cover for developing UTI but that if her symptoms of intermittent confusion persist she may need evaluation by neurology for dementia workup. However at this time she is hemodynamically stable awake alert and oriented with no focal neurologic deficit or signs of acute kidney injury or sepsis and is otherwise safe for discharge History & Record Review Discussion w/independent historian: Patient and Family Lab Data Attestation: I reviewed the patient's lab results. Labs: Laboratory Results - last 24 hr 07/24/25 07/24/25 23:09 23:22 WBC 12.0 H RBC 4.02 L Hgb 11.5 L Hct 34.2 L MCV 85.1 MCH 28.6 MCHC 33.6 RDW Std Deviation 40.3 RDW Coeff of Cami 12.9 Plt Count 261 MPV 9.4 Immature Gran % (Auto) 0.300 Neut % (Auto) 73.8 H Lymph % (Auto) 12.5 L [place] % (Auto) 11.6 H Eos % (Auto) 1.2 Baso % (Auto) 0.6 Absolute Neuts (auto) 8.9 H Absolute Lymphs (auto) 1.50 Nucleated RBC % 0 Sodium 129 L Potassium 4.3 Chloride 96 L Carbon Dioxide 20.3 L Anion Gap 12 BUN 13 Creatinine 1.13 Estim Creat Clear Calc 39.21 L Est GFR (MDRD) Non-Af 50 L BUN/Creatinine Ratio 11.1 Glucose 131 H Calcium 8.8 Magnesium 2.1 Total Bilirubin 0.29 Direct Bilirubin 0.17 AST 19 ALT 12 Alkaline Phosphatase 77 Ammonia 24.2 Total Protein 6.8 Albumin 3.8 Globulin 3.0 TSH 1.350 Urine Color Yellow Urine Clarity Clear Urine pH 7.0 Ur Specific [place] 1.005 Urine Protein Negative Urine Glucose (UA) Normal Urine Ketones Negative Urine Occult Blood Negative Urine Nitrite Negative Urine Bilirubin Negative Urine Urobilinogen Normal Ur Leukocyte Esterase 500 H Urine RBC 0 SEEN Urine WBC 0-5 SEEN Ur Squamous Epith Cells 0 SEEN Urine Bacteria RARE Urine Mucus 0 SEEN Radiography Diagnostic Testing: Clinical Impression(s) from Imaging Studies Chest X-Ray 07/24/25 23:42 IMPRESSION: No evidence for acute abnormality. Reading Location: [place] [id number] Chest x-ray is interpreted by the emergency medicine physician reveals no acute infiltrate pneumothorax or pleural effusion Discharge Plan Triage Chief Complaint: Confusion ED Provider: Erasmo Lara Dx/Rx/DC Orders Clinical Impression: Delirium, Essential hypertension, Hyperlipidemia, Hyponatremia Instructions: Delirium and Dementia, ED Viral Syndrome (Adult) Prescriptions: New nitrofurantoin monohyd/m-cryst [Macrobid] 100 mg capsule 100 mg PO BID 5 Days Qty: 10 0RF Rx Instructions: must administer with a meal/food No Action levothyroxine 88 MCG tablet 88 mcg PO DAILY aspirin 81 MG tablet,chewable 81 mg PO DAILY@0800 losartan 100 MG tablet 100 mg PO DAILY gabapentin 300 mg capsule 300 mg PO QHS amlodipine 5 MG tablet 7.5 mg PO QHS Patient Comments: biotin 1 MG capsule 1 mg PO DAILY potassium chloride 20 mEq Tablet Extended Release 40 meq PO BID meclizine 25 mg tablet 25 mg PO TID PRN (Reason: dizziness) Qty: 30 0RF isosorbide mononitrate 30 mg Tablet Extended Release 24 Hr 30 mg PO DAILY ondansetron [ondansetron] 4 mg tablet,disintegrating 4 mg PO Q8H PRN PRN (Reason: Nausea) Qty: 10 0RF (DME) True Metrix Glucose Test Strip Strip MISCELLANEOUS Patient Comments: [NO ORIGINAL SIG] (DME) lancets [TRUEplus Lancets] 33 gauge misc MISCELLANEOUS Patient Comments: [NO ORIGINAL SIG] alendronate [Fosamax] 70 mg tablet 70 mg PO TH labetalol 200 mg tablet 200 mg PO BID pantoprazole 40 mg tablet,delayed release (DR/EC) 40 mg PO DAILY rosuvastatin 20 mg tablet 20 mg PO QHS Primary Care Provider: Evangelist Starr Referrals: Evangelist Starr MD [Primary Care Provider, Family Practice] Activity Restrictions/Additional Instructions: Your workup today is consistent with an episode of delirium which is a transient change in your mental status. This is most likely brought on by a virus coupled with recent stress and sleep deprivation. Urine does show mild changes for infection and therefore take antibiotic as directed to cover this as a potential cause of your symptoms. Return to the ER should you have any further concerns Print Language: Malay Disposition Disposition: Home, Self Care Discharge Date/Time: 07/25/25 01:37
[2025-07-25 01:31] VITALS: BP 157/63; PULSE 67; RESP 18; TEMP 36.8; O2SAT 93
== END 2025-07-25 01:37 | disposition home or self-care (01) ==
PROVIDERS: Emergency Provider Emergency Medicine; PCP Family Medicine; Visit Provider Emergency Medicine
DX: R41.0 Disorientation, unspecified (principal); N18.30 Chronic kidney disease, stage 3 unspecified; E87.1 Hypo-osmolality and hyponatremia; I12.9 Hypertensive chronic kidney disease with stage 1 through stage 4 chronic kidney disease, or unspecified chronic kidney disease; Z87.891 Personal history of nicotine dependence; E78.5 Hyperlipidemia, unspecified; E03.9 Hypothyroidism, unspecified; Z79.899 Other long term (current) drug therapy
CPT/HCPCS: 71046; 80048; 80076; 81001; 82140; 83735; 84443; 85025; 87086; 87088; 87631; 99283; A4216

== ENCOUNTER 2025-09-14 07:21 | Emergency (ER) | payer MEDICARE, SELFPAY ==
[2025-09-14 07:23] VITALS: BP 161/82; PULSE 76; RESP 16; TEMP 35.9; O2SAT 99; BMI 34.0
[2025-09-14] MEDS: DiphenhydrAMINE 50 MG/ML Syringe 25 MG IV (07:57)
--- NOTE | 2025-09-14 08:10 | CT_ITS ---
PROCEDURE: CT/Brain/Head without Contrast
[2025-09-14 08:24] LABS: Anion Gap 9 (5-15); BUN 10 mg/dL (4-19); BUN/Creat Ratio 9.4 RATIO (10-20); Calcium,Total 8.9 mg/dL (7.6-11.0); Carbon Dioxide 25.2 mmol/L (21.0-32.0); Chloride 101 mmol/L (98-108); Estimated Creatinine Clearance 41.75 ml/min (50-250); Glucose 115 mg/dL (70-99); Potassium 4.2 mmol/L (3.3-5.1)
--- NOTE | 2025-09-14 09:17 | CM.ED ---
Social Work Date of referral: 09/14/25 Reason for referral: Advanced Care Directives (ACD's) not on file. Referred by: Social Work Identification Patient provided consent for social work visit. Weather Analyst requested patient bring in a copy of ACDs which patient agreed to do. Cyndi Jasmine, [employer] TEACHER, CIRCULATION REPRESENTATIVE
[2025-09-14 09:22] VITALS: BP 171/81; PULSE 65; RESP 13; O2SAT 99
[2025-09-14 10:11] VITALS: BP 156/65
[2025-09-14] MEDS: Orphenadrine 60 MG/2 ML Ampul 30 MG IV (10:36)
--- NOTE | 2025-09-14 10:43 | CPS ---
RT placed on O2 per Doctors request.
[2025-09-14 11:00] VITALS: BP 160/76; PULSE 64; RESP 14; O2SAT 99
--- NOTE | 2025-09-14 12:04 | EX.ED.VIS.HA ---
HPI History of Present Illness Chief Complaint: Headache Informant: patient and family Narrative Narrative: Patient is a 75-year-old female with a history of HTN, hyponatremia, and hypokalemia, presenting with a severe headache and nausea for 3 days. Patient is accompanied by her daughter who is supplementing history. - Headache is described as sharp, shooting pain located bilaterally in the posterior neck, radiating upwards; onset was gradual with worsening severity. - Has taken multiple doses of Tylenol without relief. - Denies previous similar headaches, photophobia, recent illness, or head trauma. - Denies any changes in vision since cataract surgery. - Denies any issues with speech, understanding others, or using arms or legs. - Denies any recent heavy lifting or activities that could cause neck strain. - Denies pain with palpation or head movement. - Reports a history of low sodium and potassium levels, previously hospitalized for these conditions. - Currently taking Betapace, amlodipine 2.5 mg, and isosorbide for HTN. - Denies use of diuretics. - Has a history of vasovagal syncope, with the most recent episode occurring 3 weeks ago; none since. - Denies any recent syncope episodes, stating it has been almost a year since the last one. - Reports a previous episode of confusion about 4-5 weeks ago, diagnosed as a UTI. Better now. - Denies any recent issues with ambulation, though notes slower movement due to arthritis in knees. [facility] Medical History Hypothyroidism Pancreatitis Hiatal hernia Obesity Former tobacco use CKD (chronic kidney disease), stage III Hyponatremia GERD (gastroesophageal reflux disease) Diverticulitis Hyperlipidemia Essential hypertension Abdominal pain Hypokalemia Diverticulosis Home Medications ?Medication ?Instructions ?Recorded ?Last Taken ?Type aspirin 81 mg chewable tablet 81 mg PO DAILY@0800 HEALTH 01/01/14 06/13/24 History MAINTENANCE levothyroxine 88 mcg tablet 88 mcg PO DAILY HYPOTHYROIDISM 01/01/14 06/14/24 History losartan 100 mg tablet 100 mg PO DAILY BLOOD PRESSURE 01/01/14 06/14/24 History amlodipine 5 mg tablet 7.5 mg PO QHS BLOOD PRESSURE 01/25/18 06/13/24 History biotin 1 mg capsule 1 mg PO DAILY supplement 08/31/18 08/09/24 History gabapentin 300 mg capsule 300 mg PO QHS NEUROPATHY 09/04/19 06/13/24 History potassium chloride 20 mEq 40 meq PO BID 06/14/21 06/14/24 History tablet,extended release meclizine 25 mg tablet 25 mg PO TID PRN dizziness #30 tabs 12/26/21 Unknown Rx isosorbide mononitrate 30 mg 30 mg PO DAILY 01/26/23 06/14/24 History tablet,extended release 24 hr ondansetron 4 mg disintegrating 4 mg PO Q8H PRN PRN Nausea #10 tabs 12/12/23 Unknown Rx tablet blood sugar diagnostic (True 06/14/24 Unknown History Metrix Glucose Test Strip) lancets 33 gauge (TRUEplus Lancets) 06/14/24 Unknown History alendronate 70 mg tablet (Fosamax) 70 mg PO TH 07/24/25 Unknown History labetalol 200 mg tablet 200 mg PO BID 07/24/25 Unknown History pantoprazole 40 mg tablet,delayed 40 mg PO DAILY 07/24/25 Unknown History release rosuvastatin 20 mg tablet 20 mg PO QHS 07/24/25 Unknown History nitrofurantoin 100 mg PO BID 5 days #10 caps 07/25/25 Unknown Rx monohydrate/macrocrystals 100 mg capsule (Macrobid) Allergy/AdvReac Type Severity Reaction Status Date / Time hydrochlorothiazide Allergy Intermediate rash Verified 09/14/25 07:24 lisinopril AdvReac Intermediate cough Verified 09/14/25 07:24 atorvastatin (From Lipitor) AdvReac Unknown unknown Verified 09/14/25 07:24 spironolactone AdvReac Unknown unknown Verified 09/14/25 07:24 Beta-Blockers AdvReac cough Verified 09/14/25 07:24 (Beta-Adrenergic Bloc codeine AdvReac Intolerance Verified 09/14/25 07:24 perindopril (From Aceon) AdvReac rash,cough Verified 09/14/25 07:24 Family History Mother Diabetes Heart disease Hypertension CVA (cerebral vascular accident) Sister Hypertension Heart disease Brother Heart disease Hypertension Surgical History History of cholecystectomy History of right and left heart catheterization (08/16/19) Hx of esophagogastroduodenoscopy History of left heart catheterization (2016) History of colonoscopy (11/2018) Hx of repair of right rotator cuff Hx of eye surgery Hx of tubal ligation History of carpal tunnel release of both wrists Hx of cholecystectomy Social History Smoking Status: Former smoker alcohol intake: current alcohol intake frequency: holidays/special occasions only substance use type: does not use caffeine: No what type of physical activity do you participate in: none frequency: does not exercise ROS ROS ED Constitutional Constitutional ED: Denies chills or fever(s) Eyes Eyes: Denies blurry vision, change in vision or diplopia ENT ENT ED: Denies ear pain, sinus pain, sinus pressure, sore throat, tinnitus or vertigo Cardiovascular Cardiovascular: Denies chest pain or palpitations Respiratory/Chest Respiratory/Chest: Denies cough or dyspnea Gastrointestinal Gastrointestinal: Reports nausea; Denies abdominal pain, diarrhea or vomiting Genitourinary Genitourinary ED: Denies dysuria or urinary frequency Musculoskeletal Musculoskeletal: Denies back pain or myalgias Integumentary Denies abscess or rash Neurologic Neurologic: Reports headache(s); Denies paresthesias or weakness EXAM Physical Exam Const Vital Signs: 09/14/25 07:23 09/14/25 09:22 09/14/25 10:11 Temperature 96.7 F L Temperature Source Temporal Pulse Rate 76 65 Respiratory Rate 16 13 Blood Pressure 161/82 H 171/81 H Blood Pressure Mean 108 111 Pulse Ox 99 99 Oxygen Delivery Method Room Air Nasal Cannula Nasal Cannula Oxygen Flow Rate (L/min) 09/14/25 10:11 09/14/25 10:43 09/14/25 11:00 Temperature Temperature Source Pulse Rate 64 Respiratory Rate 14 Blood Pressure 156/65 H 160/76 H Blood Pressure Mean 95 104 Pulse Ox 99 Oxygen Delivery Method Nasal Cannula Nasal Cannula Oxygen Flow Rate (L/min) 4 Positive well nourished and well developed General Appearance ED: well developed and NAD HEENT Reports normocephalic and moist mucous membranes atraumatic Eyes PERRL, EOMs intact bilaterally and conjunctivae normal Eyes Narrative: no photophobia Neck no lymphadenopathy, supple and no meningeal signs General: Negative for tenderness Resp normal respiratory effort and clear to auscultation bilaterally GI non-tender and non-distended Palpation: soft Extremity normal to inspection and full ROM Neuro oriented x3 and CN's II-XII intact bilaterally Neuro Narrative: No dysmetria. No confusion. GCS 15. Normal speech. Sensorium / Orientation: awake and alert Speech: speech normal Gait (Neuro): normal gait Motor Exam: strength 5/5 throughout Psych mental status grossly normal Skin Lesions: no lesions Rashes: no rashes MDM MDM MDM Narrative Medical decision making narrative: Assessment: The patient is a 75-year-old female with PMH of vasovagal syncope and prior episodes of hyponatremia presenting for three-day gradually worsening bilateral occipital headache with nausea. Non-contrast head CT is normal, and electrolytes (calcium, sodium, potassium) and renal function are within normal limits, effectively ruling out intracranial hemorrhage, mass lesion, and metabolic causes. Blood pressure remained in the 160 mm Hg systolic range but was stable and not felt to be the primary etiology. Absence of neck stiffness or tenderness makes meningitis or muscular strain unlikely. Given normal imaging and labs, a primary headache syndrome (most likely migraine versus tension or cluster headache) is the leading diagnosis. Plan: - Administered IV Reglan and IV Benadryl. - Administered 1 mg IV dihydroergotamine. - Administered 30 mg IV Norflex. - Provided 4 L/min nasal cannula oxygen for 1 hour. - Administered IV fluids. - Discharged home in improved condition with instructions to follow up with PCP and return for recurrent or worsening symptoms. Diagnostics: - Head CT: normal; no hemorrhage, mass, or acute pathology. - Labs: calcium, sodium, potassium all normal; renal function normal. Reevaluations: - Patient re-examined after treatments; headache completely relieved, reports feeling much better, hemodynamically stable, and comfortable with discharge plan. History & Record Review Discussion w/independent historian: Patient and Family Lab Data Attestation: I reviewed the patient's lab results. Labs: Laboratory Results - last 24 hr 09/14/25 07:50 Sodium 135 Potassium 4.2 Chloride 101 Carbon Dioxide 25.2 Anion Gap 9 BUN 10 Creatinine 1.05 Estim Creat Clear Calc 41.75 L Est GFR (MDRD) Non-Af 55 L BUN/Creatinine Ratio 9.4 L Glucose 115 H Calcium 8.9 Radiography Diagnostic Testing: Clinical Impression(s) from Imaging Studies Brain CT 09/14/25 08:10 IMPRESSION: No acute intracranial abnormality. Reading Location: [facility] Discharge Plan Triage Chief Complaint: Headache ED Provider: Abhishek Santiago Dx/Rx/DC Orders Clinical Impression: Occipital headache, Accelerated hypertension Instructions: ED Headache Unspecified Prescriptions: No Action levothyroxine 88 MCG tablet 88 mcg PO DAILY aspirin 81 MG tablet,chewable 81 mg PO DAILY@0800 losartan 100 MG tablet 100 mg PO DAILY gabapentin 300 mg capsule 300 mg PO QHS amlodipine 5 MG tablet 7.5 mg PO QHS Patient Comments: biotin 1 MG capsule 1 mg PO DAILY potassium chloride 20 mEq Tablet Extended Release 40 meq PO BID meclizine 25 mg tablet 25 mg PO TID PRN (Reason: dizziness) Qty: 30 0RF isosorbide mononitrate 30 mg Tablet Extended Release 24 Hr 30 mg PO DAILY ondansetron [ondansetron] 4 mg tablet,disintegrating 4 mg PO Q8H PRN PRN (Reason: Nausea) Qty: 10 0RF (DME) True Metrix Glucose Test Strip Strip MISCELLANEOUS Patient Comments: [NO ORIGINAL SIG] (DME) lancets [TRUEplus Lancets] 33 gauge misc MISCELLANEOUS Patient Comments: [NO ORIGINAL SIG] alendronate [Fosamax] 70 mg tablet 70 mg PO TH labetalol 200 mg tablet 200 mg PO BID pantoprazole 40 mg tablet,delayed release (DR/EC) 40 mg PO DAILY rosuvastatin 20 mg tablet 20 mg PO QHS nitrofurantoin monohyd/m-cryst [Macrobid] 100 mg capsule 100 mg PO BID 5 Days Qty: 10 0RF Rx Instructions: must administer with a meal/food Primary Care Provider: Evangelist Starr Referrals: Evangelits Starr MD [Primary Care Provider, Family Practice] Print Language: Micronesian Disposition Disposition: Home, Self Care
[2025-09-14 12:15] VITALS: BP 165/75; PULSE 67; RESP 17; TEMP 35.9; O2SAT 97
== END 2025-09-14 12:16 | disposition home or self-care (01) ==
PROVIDERS: Emergency Provider Emergency Medicine; PCP Family Medicine; Visit Provider Emergency Medicine
DX: R51.9 Headache, unspecified (principal); N18.30 Chronic kidney disease, stage 3 unspecified; Z87.891 Personal history of nicotine dependence; Z79.899 Other long term (current) drug therapy; I12.9 Hypertensive chronic kidney disease with stage 1 through stage 4 chronic kidney disease, or unspecified chronic kidney disease; E78.5 Hyperlipidemia, unspecified; K21.9 Gastro-esophageal reflux disease without esophagitis
CPT/HCPCS: 70450; 80048; 96374; 96375; 99283; A4216; J1110